=== PATIENT | male | born 1960 | race Caucasian/White ===

== ENCOUNTER 2016-06-06 18:24 | Inpatient (IN) | payer SELFPAY ==
[~2016-06-06] VITALS: Ht 175.3 cm; Wt 59.2 kg
[~2016-06-06 18:24] MED LIST: MVI PO; POTA595T5 PO
[2016-06-06 18:27] VITALS: BP 190/94; PULSE 108; RESP 16; TEMP 98.1; O2SAT 94
[2016-06-06] MEDS ORDERED: NITROGLYCERIN 0.4 MG SL 25 TABS/BTL SL ONE ×2 (18:33→18:34)
[2016-06-06] MEDS ORDERED: NITROGLYCERIN 0.4 MG SL 25 TABS/BTL SL STA (18:33)
[2016-06-06] MEDS ORDERED: SODIUM CHLOR 0.9% 1000 ML INJ 1,000 ML IV ONE (18:33)
[2016-06-06] MEDS ORDERED: ASPIRIN 81 MG CHEW TAB PO STA (18:33)
[2016-06-06] MEDS ORDERED: SODIUM CHLORIDE 0.9% FLUSH 10 ML FLUSH IVF PRN (18:45)
[2016-06-06] MEDS ORDERED: NITROGLYCERIN-DEXTROSE INJ 250 ML IV SCH (18:45)
[2016-06-06] MEDS ORDERED: NO HOME MEDS (18:56)
[2016-06-06 19:13] LABS: APTT (PATIENT) 25.3 SEC (24.3-30.1); PROTHROMBIN TIME - PATIENT 10.9 SEC (9.8-11.6)
--- NOTE | 2016-06-06 19:13 | PD ---
HPI Chief Complaint: Seizure Time Seen by Provider: 19:05 Travel History International Travel<30 days: No Contact w/Intl Traveler<30days: No Traveled to known affect area: No History of Present Illness HPI Is a 56 year-old man who presents to the emergency department brought in by EMS. Apparently bystanders saw him sort of stumble and collapse. He was confused for EMS. There are some concern initially for seizure given the confusion. No seizure activity actually seen. Patient endorses alcohol use today. History is very limited due to patient cooperation. He required restraint in route with EMS due to agitation and confusion. History Past Medical History Narrative Medical Alcoholism Tetanus Vaccination: Unknown Social History Alcohol Use: Yes Tobacco Use: Yes Allergies-Medications (Allergen,Severity, Reaction): Coded Allergies: No Known Allergies (Verified , 05/13/15) Reported Meds & Prescriptions Reported Meds & Active Scripts Active Theragran (Multivitamins) 1 Tab Tab 1 Tab PO DAILY Reported [No Home Meds] Eql Potassium Gluconate (Potassium Gluconate) 595 Mg Tab 595 Mg PO DAILY 2 tabs every morning Review of Systems Except as stated in HPI: all other systems reviewed are Neg Physical Exam Narrative GENERAL: The 56 year-old man, slurred speech, belligerent, confused somewhat. SKIN: Focused skin assessment warm/dry. HEAD: No evidence of trauma. EYES: Pupils equal and round. No scleral icterus. No injection or drainage. ENT: No nasal bleeding or discharge. Mucous membranes pink and moist. CARDIOVASCULAR: Rapid regular rate. No appreciable murmurs. RESPIRATORY: No accessory muscle use. Clear to auscultation. Breath sounds equal bilaterally. GASTROINTESTINAL: Abdomen soft, non-tender, nondistended. Hepatic and splenic margins not palpable. MUSCULOSKELETAL: No obvious deformities. No edema. NEUROLOGICAL: Sluggish, with slurred speech, and agitation. Data Data Last Documented VS Vital Signs Date Time Temp Pulse Resp B/P Pulse Ox O2 Delivery O2 Flow Rate FiO2 06/06/16 18:27 98.1 108 16 190/94 94 Orders Nitroglycerin Sl (Nitrostat Sl) (06/06/16 18:33) Troponin I (06/06/16 18:33) Ckmb (Isoenzyme) Profile (06/06/16 18:33) Complete Blood Count With Diff (06/06/16 18:33) I-Stat Profile (06/06/16 18:33) I-Stat Creatinine (06/06/16 18:33) Calcium (06/06/16 18:33) Magnesium (Mg) (06/06/16 18:33) Prothrombin Time / Inr (Pt) (06/06/16 18:33) Act Partial Throm Time (Ptt) (06/06/16 18:33) B-Type Natriuretic Peptide (06/06/16 18:33) Chest, Single Ap (06/06/16 18:33) Electrocardiogram (06/06/16 18:33) Oxygen Administration (06/06/16 18:33) Iv Access Insert/Monitor (06/06/16 18:33) Oximetry (06/06/16 18:33) Sodium Chlor 0.9% 1000 Ml Inj (Ns 1000 M (06/06/16 18:33) Sodium Chloride 0.9% Flush (Ns Flush) (06/06/16 18:45) Aspirin Chew (Aspirin Chew) (06/06/16 18:33) Nitroglycerin Sl (Nitrostat Sl) (06/06/16 18:33) Nitroglycerin-Dextrose Inj (Nitroglyceri (06/06/16 18:45) Nitroglycerin Sl (Nitrostat Sl) (06/06/16 18:34) Alcohol (Ethanol) (06/06/16 18:37) Ct Brain W/O Iv Contrast(Rout) (06/06/16 ) MDM Medical Decision Making Medical Screen Exam Complete: Yes Emergency Medical Condition: Yes Interpretation(s) My review of initial EKG: Sinus tachycardia. There is high lateral ST elevations in aVL and V1 V2 with reciprocal inferior T-wave inversions and ST depressions, as well as lateral precordial ST depressions. Compared to his previous EKG, the degree of elevation depressions is worsened, but the pattern is the same as previous. Differential Diagnosis STEMI, illicit drug use, intoxication, head injury, other Narrative Course Medical decision making This a 56 year-old man presents emergency department confused, appears intoxicated, with some kind of stumbling or syncope or collapse type episode. EKG is worrisome for STEMI, and a STEMI alert was called. On further review, his EKG is unchanged from his baseline. I spoke with Dr. Garcia, head of conservation cardiology. He came immediately to the bedside the patient was evaluated with echocardiogram. STEMI alert was canceled as the history is not suggestive of a myocardial infarction, EKG appears similar to previous EKGs, there were no wall motion abnormalities. Patient will be monitored in the emergency department, lab work will be obtained, and he'll be admitted for further evaluation. Patient was signed out to the oncoming provider at 7 PM for further evaluation. Jose C Dee MD June 06, 2016 19:13
[2016-06-06] MEDS ORDERED: hydrALAZINE HCL 20 MG/ML VIAL IV PUSH PRN (19:15)
[2016-06-06 19:18] LABS: AUTOMATED NEUTROPHIL # 5.3 TH/MM3 (1.8-7.7); BASOPHIL # 0.2 TH/MM3 (0-0.2); BASOPHIL % 1.3 % (0.0-2.0); EOSINOPHIL # 0.7 TH/MM3 (0-0.4); EOSINOPHIL % 5.5 % (0.0-4.0); HEMATOCRIT 38.4 % (39.0-51.0); HEMO FLAGS DIFF FINAL; LYMPH % 41.9 % (9.0-44.0); MEAN CELL VOLUME 86.1 FL (80.0-100.0); MEAN CORPUSCULAR HEMOGLOBIN 28.4 PG (27.0-34.0); MONO % 7.1 % (0.0-8.0); NEUT % 44.2 % (16.0-70.0); PLATELET COUNT 306 TH/MM3 (150-450); RED BLOOD COUNT 4.47 MIL/MM3 (4.50-5.90); RED CELL DISTRIBUTION WIDTH 23.2 % (11.6-17.2)
[2016-06-06 19:23] VITALS: RESP 16; O2SAT 98
[2016-06-06] MEDS ORDERED: amLODIPine BESYLATE 5 MG TAB PO ONE (19:30)
--- NOTE | 2016-06-06 19:46 | RADRPT ---
EXAM DATE/TIME: 06/06/2016 18:43 [facility] COMPARISON: CHEST SINGLE AP, October 05, 2014, 4:32. INDICATIONS : Chest pain. MEDICAL HISTORY : Unobtainable. SURGICAL HISTORY : Unobtainable. ENCOUNTER: Initial ACUITY: 1 day PAIN SCORE: Non-responsive. LOCATION: Bilateral chest FINDINGS: There are lung sarkis and clips seen in the medial right upper lung. There continues to be soft tissue density at the medial right upper lung and along the superior right pleural region. This was present previously. These findings appear unchanged. The lungs are otherwise clear. The heart size is normal. A significant effusion is not clearly identified. CONCLUSION: Stable chronic change in the right upper lung. An acute abnormality is not clearly se en. Lacho Dey MD on June 06, 2016 at 19:38 Board Certified Radiologist. This report was verified electronically.
--- NOTE | 2016-06-06 21:06 | MB ---
cc: LUKE PARR DO DATE OF CONSULTATION: 06/06/2016 REASON FOR CONSULTATION: Abnormal EKG possible ST-elevation myocardial infarction. HISTORY OF PRESENT ILLNESS Joon Martin is a 56-year-old male who presents to [facility] emergency room via EMS on June 06, 2016, after seeing him stumble. Per the patient he was binge drinking all day, although he claims that he only drank six beers. He was out walking and noted to stumble and fall down. EMS was called and he was brought to the emergency room. Per the patient he did not syncopize, feel lightheaded or lose consciousness. On arrival, EKG was done and there was concern for possible ST-elevation myocardial infarction, so I was called emergently. On my arrival on discussing with the patient he states that he drank too much today and stumbled because he was drinking. He denies any loss of consciousness, chest pain or shortness of breath. He is currently hemodynamically stable, lying in bed without pain. PAST MEDICAL HISTORY: 1. Hypertension. 2. Depression. 3. Tobacco abuse 4. Alcohol abuse. PAST SURGICAL HISTORY: 1. Right thoracotomy. 2. Lung resection. 3. Right foot surgery. ALLERGIES NO KNOWN DRUG ALLERGIES. MEDICATIONS Denies. FAMILY HISTORY Denies premature coronary artery disease or sudden cardiac within the family. SOCIAL HISTORY The patient states he drank six beers today. He states that the last time he drank was around a month ago and has not binge drank in five months. He has a history of drinking 12 beers per day. He smokes a pack per day. Denies drug abuse. REVIEW OF SYSTEMS 14-systems were reviewed, history and physical pertinent positives and negatives above otherwise negative. PHYSICAL EXAMINATION Vital signs: Temperature 98.1, heart rate 100, blood pressure 190/94, respirations 16, pulse ox 94% on room air. In general the patient appears well in no acute distress. Alert, awake, oriented x3. He does smell of alcohol. Extraocular muscles intact. Mucous membranes moist. Neck is supple. No JVD at 45 degrees. No carotid bruits heard bilaterally. Carotid upstroke is brisk in nature. Heart is regular rate and rhythm. Positive first and second heart sounds with no murmurs, gallops or rubs. PMI is nondisplaced. Lungs: Clear to auscultation bilaterally. No wheezes, rales or rhonchi. Abdomen is soft, nontender, nondistended, no organomegaly noted. Extremities: Show no clubbing, cyanosis or edema. Femoral and distal pulses intact bilaterally. Neurologically: No focal deficits. Skin: Warm, dry and intact. Osteopathically, no kyphoscoliosis, lordosis or paraspinal tender points. Electrocardiogram (June 06, 2016 at 18:29) sinus tachycardia, left atrial enlargement, incomplete right bundle branch block, probable LVH with secondary ST-T wave changes, compared to previous electrocardiogram from October 05, 2014 at 13:33, ST-T wave changes, inferior laterally, are slightly more prominent but overall no significant change. IMPRESSION 1. Alcohol intoxication. 2. Gait disturbance secondary to alcohol intoxication. 3. EKG changes consistent with LVH, does not appear to be an ST-elevation myocardial infarction. 4. Accelerated hypertension with a history of chronic hypertension. 5. Noncompliance with medications. 6. Alcohol abuse. 7. Tobacco abuse. 8. Depression. RECOMMENDATIONS 1. Mr. Martin's EKG does not appear to be an ST elevation myocardial infarction and to go along with this, he does not currently have any chest pain. These are most likely secondary changes of LVH due to his longstanding untreated hypertension. 2. He will be watched overnight and troponins will be checked x3. 3. Echocardiogram was done at the bedside showing extensive LVH with ejection fraction preliminarily of 45-50 but no significant wall motion abnormalities but what appears more likely to be diffuse mild hypokinesis due to longstanding hypertension. 4. We will discuss with him tomorrow when he leonides up about his overall health and making sure he stays on his antihypertensive medications. 5. I also discussed with him stopping drinking as he is starting to form what looks like a dilated cardiomyopathy. 6. Lastly I spoke to him for greater than 3 minutes about tobacco cessation which he is not ready to quit. Thank you for allowing me to see Joon Martin. If there are any questions please do not hesitate to call. Luke Parr DO VGP/KAPIL /7:02 PM /8:52 PM
[2016-06-06 21:16] LABS: CREATINE KINASE 161 U/L (39-308); MAGNESIUM 2.6 MG/DL (1.5-2.5)
[2016-06-06 21:17] LABS: ANION GAP 15 MEQ/L (5-15); AST (GOT) 32 U/L (15-37); BICARBONATE 21.9 MEQ/L (21.0-32.0); BLOOD UREA NITROGEN 26 MG/DL (7-18); CHLORIDE 97 MEQ/L (98-107); GLOMERULAR FILTRATION RATE 45 ML/MIN (>89); POTASSIUM 3.5 MEQ/L (3.5-5.1); SODIUM (NA) 134 MEQ/L (136-145)
[2016-06-06 21:20] LABS: ALKALINE PHOSPHATASE 95 U/L (45-117); ALT (GPT) 27 U/L (12-78); TOTAL BILIRUBIN ADULT 0.2 MG/DL (0.2-1.0)
--- NOTE | 2016-06-06 21:23 | PD ---
Physical Exam Narrative The patient was initially evaluated by the previous provider and signed out to me at 7:00 PM at the beginning of my shift pending labs, CT head, and disposition. See his note for further details. Briefly this is a 56-year-old male who was brought into the emergency department after seen falling to the ground. Patient has been drinking alcohol throughout the day today and drinks alcohol daily. EKG was concerning for possible STEMI, therefore STEMI alert was called, however was canceled after the on-call research/program director evaluated the patient as well as previous EKG which looks very similar to today's EKG. Bedside echo was performed by Dr. Garcia showing decreased EF. Plan is for basic labs, cardiac enzymes, CT head, and research/program director Dr. Irizarry would like the patient to be admitted for serial cardiac enzymes. Vital signs and labs reviewed. Troponin is 0.09. BNP is 1677. Alcohol level is 144. Chest x-ray shows stable chronic change in the right upper lung, and acute abnormality is not clearly seen. CT head: CONCLUSION: 1. No acute intracranial abnormality seen. 2. Suspected encephalomalacia at the inferior right frontal lobe. 3. Bilateral maxillary sinus disease. Patient will be admitted for overnight observation for serial cardiac enzymes and cardiology evaluation in the morning. Case discussed with hospitalist Dr. Oleary who will admit the patient to her service. Data Data Last Documented VS Vital Signs Date Time Temp Pulse Resp B/P Pulse Ox O2 Delivery O2 Flow Rate FiO2 06/06/16 19:23 16 98 Room Air 06/06/16 18:27 98.1 108 190/94 Orders Nitroglycerin Sl (Nitrostat Sl) (06/06/16 18:33) Troponin I (06/06/16 18:33) Ckmb (Isoenzyme) Profile (06/06/16 18:33) Complete Blood Count With Diff (06/06/16 18:33) Magnesium (Mg) (06/06/16 18:33) Prothrombin Time / Inr (Pt) (06/06/16 18:33) Act Partial Throm Time (Ptt) (06/06/16 18:33) B-Type Natriuretic Peptide (06/06/16 18:33) Chest, Single Ap (06/06/16 18:33) Electrocardiogram (06/06/16 18:33) Oxygen Administration (06/06/16 18:33) Iv Access Insert/Monitor (06/06/16 18:33) Oximetry (06/06/16 18:33) Sodium Chlor 0.9% 1000 Ml Inj (Ns 1000 M (06/06/16 18:33) Sodium Chloride 0.9% Flush (Ns Flush) (06/06/16 18:45) Aspirin Chew (Aspirin Chew) (06/06/16 18:33) Nitroglycerin Sl (Nitrostat Sl) (06/06/16 18:33) Nitroglycerin-Dextrose Inj (Nitroglyceri (06/06/16 18:45) Nitroglycerin Sl (Nitrostat Sl) (06/06/16 18:34) Alcohol (Ethanol) (06/06/16 18:37) Ct Brain W/O Iv Contrast(Rout) (06/06/16 ) Aspirin Chew (Aspirin Chew) (06/07/16 09:00) Echo 2d Comp W/Dopp(Routine) (06/06/16 ) Amlodipine (Norvasc) (06/07/16 09:00) Hydralazine Inj (Apresoline Inj) (06/06/16 19:15) Ur Drug Screen W/Confirmation (06/06/16 19:14) Amlodipine (Norvasc) (06/06/16 19:30) Comprehensive Metabolic Panel (06/06/16 20:52) CKMB (06/06/16 18:35) CKMB% (06/06/16 18:35) Labs Laboratory Tests Test 06/06/16 06/06/16 18:35 19:35 White Blood Count 12.0 TH/MM3 Red Blood Count 4.47 MIL/MM3 Hemoglobin 12.7 GM/DL Hematocrit 38.4 % Mean Corpuscular Volume 86.1 FL Mean Corpuscular Hemoglobin 28.4 PG Mean Corpuscular Hemoglobin 33.0 % Concent Red Cell Distribution Width 23.2 % Platelet Count 306 TH/MM3 Mean Platelet Volume 8.2 FL Neutrophils (%) (Auto) 44.2 % Lymphocytes (%) (Auto) 41.9 % Monocytes (%) (Auto) 7.1 % Eosinophils (%) (Auto) 5.5 % Basophils (%) (Auto) 1.3 % Neutrophils # (Auto) 5.3 TH/MM3 Lymphocytes # (Auto) 5.0 TH/MM3 Monocytes # (Auto) 0.8 TH/MM3 Eosinophils # (Auto) 0.7 TH/MM3 Basophils # (Auto) 0.2 TH/MM3 CBC Comment DIFF FINAL Differential Comment Prothrombin Time 10.9 SEC Prothromb Time International 1.0 RATIO Ratio Activated Partial 25.3 SEC Thromboplast Time Magnesium Level 2.6 MG/DL Total Creatine Kinase 161 U/L Creatine Kinase MB 5.2 NG/ML Troponin I 0.09 NG/ML B-Type Natriuretic Peptide 1677 PG/ML Ethyl Alcohol Level 144 MG/DL Sodium Level 134 MEQ/L Potassium Level 3.5 MEQ/L Chloride Level 97 MEQ/L Carbon Dioxide Level 21.9 MEQ/L Anion Gap 15 MEQ/L Blood Urea Nitrogen 26 MG/DL Creatinine 1.59 MG/DL Estimat Glomerular Filtration 45 ML/MIN Rate Random Glucose 160 MG/DL Calcium Level 8.1 MG/DL Total Bilirubin 0.2 MG/DL Aspartate Amino Transf 32 U/L (AST/SGOT) Alanine Aminotransferase 27 U/L (ALT/SGPT) Alkaline Phosphatase 95 U/L Total Protein 7.7 GM/DL Albumin 3.6 GM/DL MDM Supervised Visit with FERNANDEZ: No Diagnosis Primary Impression: Syncope Qualified Code: R55 - Syncope, unspecified syncope type Additional Impressions: Abnormal EKG Alcohol intoxication Qualified Code: F10.120 - Alcohol intoxication, uncomplicated Scripts No Active Prescriptions or Reported Meds Tom Hampton MD June 06, 2016 21:23
--- NOTE | 2016-06-06 21:28 | RADRPT ---
EXAM DATE/TIME: 06/06/2016 20:43 [facility] COMPARISON: No previous studies available for comparison. INDICATIONS : Patient fell ETOH on board . RADIATION DOSE: 56.39 CTDIvol (mGy) MEDICAL HISTORY : Hypertension. SURGICAL HISTORY : None. chest tube ENCOUNTER: Initial ACUITY: 1 day PAIN SCALE: 1/10 LOCATION: cranial TECHNIQUE: Multiple contiguous axial images were obtained of the head. Using automated exposure control and adj ustment of the mA and/or kV according to patient size, radiation dose was kept as low as reasonably a chievable to obtain optimal diagnostic quality images. FINDINGS: CEREBRUM: The ventricles are normal for age. There is encephalomalacia at the inferior right frontal lobe like ly from prior trauma given the location. No evidence of midline shift, mass lesion, hemorrhage or acu te infarction. No extra-axial fluid collections are seen. POSTERIOR FOSSA: The cerebellum and brainstem are intact. The 4th ventricle is midline. The cerebellopontine angle i s unremarkable. EXTRACRANIAL: The visualized portion of the orbits is intact. There is bilateral maxillary sinus disease. SKULL: The calvaria is intact. No evidence of skull fracture. CONCLUSION: 1. No acute intracranial abnormality seen. 2. Suspected encephalomalacia at the inferior right frontal lobe. 3. Bilateral maxillary sinus disease. Lacho Dey MD on June 06, 2016 at 21:24 Board Certified Radiologist. This report was verified electronically.
[2016-06-06 21:29] LABS: CKMB 5.2 NG/ML (0.5-3.6)
[2016-06-06] MEDS ORDERED: NALOXONE HCL 0.4 MG/ML AMP IV PRN (22:45)
[2016-06-06] MEDS ORDERED: SODIUM CHLORIDE 0.9% FLUSH 10 ML FLUSH IV FLUSH PRN (22:45)
[2016-06-06] MEDS ORDERED: FUROSEMIDE 20 MG/2 ML VIAL IV PUSH ONE (23:00)
[2016-06-06] MEDS ORDERED: POTASSIUM CHLORIDE 20 MEQ CONTROLLED RELEASE TAB PO ONE (23:00)
[2016-06-06 23:12] VITALS: BP 169/86; PULSE 92; RESP 16; O2SAT 97
--- NOTE | 2016-06-06 23:29 | HHI.HP ---
[facility] Phys[facility] - [facility] in [place] Admission Diagnosis syncope, abnormal EKG, alcohol intoxication Diagnoses: (1) Syncope (2) Abnormal EKG (3) Alcohol intoxication Chief Complaint: syncopal episode Travel History International Travel<30 Days: No Contact w/Intl Traveler <30 Da: No Traveled to Known Affected Are: No History of Present Illness Mr. Porter is a 56 year-old male with a history of hypertension, COPD, arthritis, and pneumothorax who presented to the emergency room on 06/07/2015 for evaluation of stumble with collapse. Dr. Garcia saw him in the emergency room because he came in as a STEMI alert. Bedside echocardiogram showed EF of 45-50 with extensive LVH. His 12-lead EKG appears c/w LVH and not STEMI. The patient is seen in the emergency room. He states he was out walking and got dizzy and then lost consciousness. He denies being confused upon awakening and bowel or bladder incontinence with this episode. He reports his vision became tunneled and he blacked out. He reports that he had 6 beers prior to this episode that he drank very quickly. He repeatedly denies daily alcohol use. He denies any prior syncopal episodes. He does acknowledge that he's gotten dizzy in the past but was able to "sit down and catch my breath" with resolution of symptoms. He acknowledges chronic shortness of breath at night and occasional orthopnea. He denies ascites or peripheral edema. He denies any chest pain or tightness. He denies any history of diabetes, heart disease, irregular heart rhythm, liver or kidney problems, seizures, cancers, thyroid problems, or problems with blood clots such as DVT, PE, or CVA. He says he has been seeing a primary care physician at a free clinic and [place]. During his evaluation earlier one month ago, he was found to be severely hypertensive and was sent to [place] ER. He states they found him to be anemic and he was placed on iron. He states he was taken off his blood pressure pills at that time. He says they did perform an echocardiogram and he is still awaiting those results. He has a history of COPD and right lobectomy following pneumothorax. Review of Systems Except as stated in HPI: all other systems reviewed are Neg Past Family Social History Past Medical History Hypertension Arthritis Pneumothorax - chest tube 2008 resolved after two chest tubes COPD . Past Surgical History right ankle orif 1983 Chest tubes 2 2008 . Reported Medications Reported Meds & Active Scripts Active No Active Prescriptions or Reported Medications Allergies: Coded Allergies: No Known Allergies (Verified , 05/13/15) Active Ordered Medications Current Medications Nitroglycerin 0.4 mg 0.4 mg STK-MED ONCE SL ; Start 06/06/16 at 18:33; Stop at 18:42; Status DC Sodium Chloride (NS 1000 ml Inj) 1,000 ml @ 0 mls/hr Q0M ONCE IV Last administered on 06/06/16 18:47; Start 06/06/16 at 18:33; Stop 06/06/16 at 18:36; Status DC Sodium Chloride (NS Flush) 2 ml UNSCH PRN IVF FLUSH AFTER USING IV ACCESS; Start 06/06/16 at 18:45; Stop 06/06/16 at 22:54; Status DC Aspirin (Aspirin Chew) 324 mg NOW STAT PO Last administered on 06/06/16 18:48 ; Start 06/06/16 at 18:33; Stop 06/06/16 at 18:36; Status DC Nitroglycerin 0.4 mg 0.4 mg NOW STAT SL ; Start 06/06/16 at 18:33; Stop 06/06/16 at 18:42; Status DC Nitroglycerin/ Dextrose (Nitroglycerin-Dextrose Inj) 250 ml @ 0 mls/hr TITRATE IV ; Start 06/06/16 at 18:45; Stop 06/06/16 at 18:45; Status DC Nitroglycerin (Nitrostat Sl) 0.4 mg STK-MED ONCE SL ; Start 06/06/16 at 18:34; Stop 06/06/16 at 18:43; Status DC Aspirin (Aspirin Chew) 81 mg DAILY CHEW ; Start 06/07/16 at 09:00 Amlodipine Besylate (Norvasc) 5 mg DAILY PO ; Start 06/07/16 at 09:00 Hydralazine HCl (Apresoline Inj) 10 mg Q4HR PRN IV PUSH SBP>160, DBP>90; Start 06/06/16 at 19:15 Amlodipine Besylate (Norvasc) 5 mg ONCE ONCE PO Last administered on 06/06/16t 19:46; Start 06/06/16 at 19:30; Stop 06/06/16 at 19:31; Status DC Sodium Chloride (NS Flush) 2 ml UNSCH PRN IV FLUSH FLUSH AFTER USING IV ACCESS ; Start 06/06/16 at 22:45 Sodium Chloride (NS Flush) 2 ml BID IV FLUSH ; Start 06/07/16 at 09:00 Naloxone HCl (Narcan Inj) 0.4 mg UNSCH PRN IV SEE LABEL COMMENTS; Start at 22:45 Furosemide (Lasix Inj) 20 mg ONCE ONCE IV PUSH ; Start 06/06/16 at 23:00; Stop 06/06/16 at 23:01; Status DC Furosemide (Lasix Inj) 20 mg BID@09,18 IV PUSH ; Start 06/07/16 at 09:00 Potassium Chloride (KCl) 40 meq ONCE ONCE PO ; Start 06/06/16 at 23:00; Stop 06/06/16 at 23:01; Status DC . Family History Mother diabetes Father from colon cancer Denies family history of heart problems . Social History Tobacco: smokes 1 PPD x 40 years ETOH: denies drinking routinely - drinks two times per week . Physical Exam Vital Signs Vital Signs Date Time Temp Pulse Resp B/P Pulse Ox O2 Delivery O2 Flow Rate FiO2 06/06/16 23:12 92 16 169/86 97 Room Air 06/06/16 19:23 16 98 Room Air 06/06/16 19:23 98 Room Air 06/06/16 18:27 98.1 108 16 190/94 94 Physical Exam GENERAL: This is a thin male patient who appears older than stated age, in no apparent distress. SKIN: No rashes, ecchymoses or lesions. Cool and dry. HEAD: Atraumatic. Normocephalic. EYES: No scleral icterus. No injection or drainage. ENT: Nose without bleeding, purulent drainage. NECK: Trachea midline. No JVD or lymphadenopathy. CARDIOVASCULAR: Regular rate and rhythm without murmurs, gallops, or rubs. RESPIRATORY: Clear to auscultation. Breath sounds equal bilaterally. No wheezes , rales, or rhonchi. GASTROINTESTINAL: Abdomen soft, non-tender, nondistended. No guarding. MUSCULOSKELETAL: Extremities without clubbing, cyanosis, or edema. No calf tenderness. NEUROLOGICAL: Awake and alert. Motor and sensory grossly within normal limits. Normal speech. . Laboratory Laboratory Tests Test 06/06/16 06/06/16 18:35 19:35 White Blood Count 12.0 Red Blood Count 4.47 Hemoglobin 12.7 Hematocrit 38.4 Mean Corpuscular Volume 86.1 Mean Corpuscular Hemoglobin 28.4 Mean Corpuscular Hemoglobin 33.0 Concent Red Cell Distribution Width 23.2 Platelet Count 306 Mean Platelet Volume 8.2 Neutrophils (%) (Auto) 44.2 Lymphocytes (%) (Auto) 41.9 Monocytes (%) (Auto) 7.1 Eosinophils (%) (Auto) 5.5 Basophils (%) (Auto) 1.3 Neutrophils # (Auto) 5.3 Lymphocytes # (Auto) 5.0 Monocytes # (Auto) 0.8 Eosinophils # (Auto) 0.7 Basophils # (Auto) 0.2 CBC Comment DIFF FINAL Differential Comment Prothrombin Time 10.9 Prothromb Time International 1.0 Ratio Activated Partial 25.3 Thromboplast Time Magnesium Level 2.6 Total Creatine Kinase 161 Creatine Kinase MB 5.2 Troponin I 0.09 B-Type Natriuretic Peptide 1677 Ethyl Alcohol Level 144 Sodium Level 134 Potassium Level 3.5 Chloride Level 97 Carbon Dioxide Level 21.9 Anion Gap 15 Blood Urea Nitrogen 26 Creatinine 1.59 Estimat Glomerular Filtration 45 Rate Random Glucose 160 Calcium Level 8.1 Total Bilirubin 0.2 Aspartate Amino Transf 32 (AST/SGOT) Alanine Aminotransferase 27 (ALT/SGPT) Alkaline Phosphatase 95 Total Protein 7.7 Albumin 3.6 Result Diagram: 06/06/16183406/06/161934 Imaging Last Impressions Chest X-Ray 06/06/16 1833 Signed Impressions: Service Date/Time: Monday, June 06, 2016 18:43 - CONCLUSION: Stable chronic change in the right upper lung. An acute abnormality is not clearly seen. Lacho Dey MD Head CT 06/06/16 0000 Signed Impressions: Service Date/Time: Monday, June 06, 2016 20:43 - CONCLUSION: 1. No acute intracranial abnormality seen. 2. Suspected encephalomalacia at the inferior right frontal lobe. 3. Bilateral maxillary sinus disease. Lacho Dey MD Assessment and Plan Problem List: (1) Alcohol intoxication ICD Code: F10.129 Status: Resolved (2) Syncope ICD Code: R55 Status: Acute (3) Cardiomyopathy ICD Code: I42.9 Status: Chronic Assessment and Plan Mr. Porter is a 56 year-old male with a history of hypertension, COPD, arthritis, and pneumothorax who presented to the emergency room on 06/07/2015 for evaluation of stumble with collapse. Dr. Garcia saw him in the emergency room because he came in as a STEMI alert. Bedside echocardiogram showed EF of 45-50 with extensive LVH. His 12-lead EKG appears c/w LVH and not STEMI. Cardiomyopathy - likely secondary to alcohol abuse and tobacco abuse - Lasix 20 mg IV x 1 dose now, Lasix 20 mg IV BID - Potassium 40 meq p.o. x 1 dose - continuous cardiac telemetry to monitor for cardiac arrhythmia - EKG reviewed - ST changes c/w LVH, not STEMI - Cardiology consulted - appreciate assistance - discussed with Dr. Garcia at patient's bedside - Serial cardiac enzymes and EKGs to rule out ACS Hypertensive urgency - Hydralazine 10 mg IV every 4 hours as needed for systolic blood pressure greater than 160 or diastolic blood pressure greater than 90 - Monitor trends and blood pressure readings and adjust treatment as indicated Syncope - Check carotid artery ultrasound - Continuous cardiac telemetry to monitor for cardiac arrhythmia - Cardiac workup as above Alcohol intoxication - ETOH 144 on admission - recommend cessation Tobacco abuse - counselled regarding cessation DVT prophylaxis - SCDs Written by Annie Ortega, acting as scribe for Dr. Oleary on 06/06/16 at 23:28. This note was transcribed by scribe [Annie Ortega]. I, Dr. Sangeeta Oleary personally performed the history, physical exam, and medical decision making; and confirmed the accuracy of the information in the transcribed note. Authenticated by Dr. Sangeeta Oleary on 06/06/16 at 23:28. Discussed Condition With Dr. Irizarry at patient's bedside, ER physician, and patient Problem Qualifiers (1) Syncope: Qualified Code: R55 - Syncope, unspecified syncope type (2) Alcohol intoxication: Qualified Code: F10.120 - Alcohol intoxication, uncomplicated Annie Ortega June 06, 2016 23:29 Sangeeta Oleary MD Jul 17, 2016 11:54
[2016-06-07] VITALS (13 sets, daily range): BP systolic 98–190; BP diastolic 56–97; PULSE 75–93; RESP 16–20; TEMP 97.7–98.6; O2SAT 96–100
[2016-06-07] MEDS ORDERED: HEPARIN-D5W INJ 250 ML IV SCH (03:00)
[2016-06-07 05:52] LABS: AUTOMATED NEUTROPHIL # 7.6 TH/MM3 (1.8-7.7); BASOPHIL # 0.1 TH/MM3 (0-0.2); BASOPHIL % 1.2 % (0.0-2.0); EOSINOPHIL # 0.2 TH/MM3 (0-0.4); EOSINOPHIL % 1.7 % (0.0-4.0); HEMATOCRIT 39.1 % (39.0-51.0); HEMO FLAGS DIFF FINAL; LYMPH % 13.9 % (9.0-44.0); LYMPHOCYTE # 1.4 TH/MM3 (1.0-4.8); MEAN CELL VOLUME 84.5 FL (80.0-100.0); MEAN CORPUSCULAR HEMOGLOBIN 27.8 PG (27.0-34.0); MEAN CORPUSCULAR HGB CONC 32.9 % (32.0-36.0); NEUT % 76.2 % (16.0-70.0); PLATELET COUNT 258 TH/MM3 (150-450); RED BLOOD COUNT 4.62 MIL/MM3 (4.50-5.90); RED CELL DISTRIBUTION WIDTH 23.8 % (11.6-17.2)
[2016-06-07 06:07] LABS: BICARBONATE 25.5 MEQ/L (21.0-32.0); POTASSIUM 3.7 MEQ/L (3.5-5.1)
--- NOTE | 2016-06-07 08:34 | EKG ---
Date Performed: 06/07/2016 Time Performed: 01:36:41 PTAGE: 56 years EKG: Sinus rhythm RIGHT ATRIAL ENLARGEMENT LEFT VENTRICULAR HYPERTROPHY AND ST-T CHANGE ABNORMAL ECG PREVIOUS TRACING : 06/06/2016 18.29 DOCTOR: Jose C Roman Interpretating Date/Time 06/07/2016 08:33:09
--- NOTE | 2016-06-07 08:48 | EKG ---
Date Performed: 06/06/2016 Time Performed: 18:29:30 PTAGE: 56 years EKG: SINUS TACHYCARDIA LEFT ATRIAL ENLARGEMENT INCOMPLETE RIGHT BUNDLE BRANCH BLOCK MARKED ST DE PRESSION, CONSIDER SUBENDOCARDIAL INJURY ABNORMAL ECG INTERPRETATION BASED ON A DEFAULT AGE OF 40 YE ARS NO PREVIOUS TRACING DOCTOR: Jose C Roman Interpretating Date/Time 06/07/2016 08:47:12
[2016-06-07] MEDS: amLODIPine BESYLATE 5 MG TAB PO SCH (08:54)
[2016-06-07] MEDS: ASPIRIN 81 MG CHEW TAB CHEW SCH (08:54)
[2016-06-07] MEDS: FUROSEMIDE 20 MG/2 ML VIAL IV PUSH SCH ×2 (08:54→18:48)
[2016-06-07] MEDS: SODIUM CHLORIDE 0.9% FLUSH 10 ML FLUSH IV FLUSH SCH ×2 (08:54→21:00)
[2016-06-07] MEDS ORDERED: HEPARIN SODIUM - IV 10,000 UNITS/10 ML VIAL IV PRN ×2 (09:00)
[2016-06-07] MEDS ORDERED: ENALAPRILAT 1.25 MG/ML VIAL IV PUSH PRN (09:00)
--- NOTE | 2016-06-07 09:13 | EC ---
Study Study Date:06/06/2016 STUDY CONCLUSIONS SUMMARY LEFT VENTRICLE: The cavity size was normal. Wall thickness was increased in a pattern of moderate LVH. There was concentric hypertrophy. Systolic function was mildly reduced. The estimated ejection fraction was in the range of 45% to 50%. Diffuse hypokinesis. Features are consistent with a pseudonormal left ventricular filling pattern, with concomitant abnormal relaxation and increased filling pressure (grade 2 diastolic dysfunction). If LV function is below 40, please consider prescribing an ACEI or ARB or document rationale for non-use. PROCEDURE DATA STUDY STATUS: Elective. Procedure: Transthoracic echocardiography. Image quality was good. Scanning was performed from the parasternal, apical, and subcostal acoustic windows. Study completion: The patient tolerated the procedure well. Transthoracic echocardiography. M-mode, complete 2D, complete spectral Doppler, and color Doppler. Height: Height: 71in. Weight: Weight: 129.7lb. Body mass index: BMI: 18.1kg/m^2. Body surface area: BSA: 1.76m^2. Patient status: Inpatient. CARDIAC ANATOMY LEFT VENTRICLE: The cavity size was normal. Wall thickness was increased in a pattern of moderate LVH. There was concentric hypertrophy. Systolic function was mildly reduced. The estimated ejection fraction was in the range of 45% to 50%. Diffuse hypokinesis. Features are consistent with a pseudonormal left ventricular filling pattern, with concomitant abnormal relaxation and increased filling pressure (grade 2 diastolic dysfunction). AORTIC VALVE: Trileaflet; mildly thickened leaflets. Doppler: There was no stenosis. No significant regurgitation. Valve area: 1.87cm^2 (Vmax). Indexed valve area: 1.06cm^2/m^2 (Vmax). MITRAL VALVE: The valve appears to be grossly normal. Doppler: There was no evidence for stenosis. No significant regurgitation. Valve area by pressure half-time: 6.67cm^2. Indexed valve area by pressure half-time: 3.79cm^2/m^2. Peak gradient: 8mm Hg (D). ATRIAL SEPTUM: No defect or patent foramen ovale was identified. RIGHT VENTRICLE: The cavity size was normal. Systolic function was normal. PULMONIC VALVE: Not well visualized. Doppler: There was no evidence for stenosis. Trace regurgitation. TRICUSPID VALVE: The valve appears to be grossly normal. Doppler: There was no evidence for stenosis. No significant regurgitation. PERICARDIUM: There was no pericardial effusion. Patient weight: 129.7lb _Ejection fraction:_ 65-75% _Fractional shortening:_ 32% up to 5Kg 5-11.5Kg 11.6-22.9Kg 23-45Kg 45-57Kg Aortic Root 7-13 <17 13-22 17-27 17-27 LA diam 6-13 <23 24-38 33-47 37-40 RVID 10-17 7-15 7-15 7-18 8-17 LVIDd 12-22 <32 24-38 33-47 37-40 LVPW 2-4 3-6 5-7 6-8 7-8 IVS 2-4 3-6 5-7 6-8 7-8 BASIC MEASUREMENTS ADULT NORMAL Left ventricle LV internal dimension, ED, chordal 44.7 mm 43-52 level, PLAX LV internal dimension, ES, chordal 33.4 mm 23-38 level, PLAX Fractional shortening, chordal level, *25 % >29 PLAX LV posterior wall thickness, ED 14.8 mm IVS/LVPW ratio, ED 0.99 <1.3 Ventricular septum Septal thickness, ED 14.6 mm Aortic valve Leaflet separation 19 mm 15-26 Left atrium Anterior-posterior dimension 35 mm Anterior-posterior dimension index 1.99 cm/m^2 <2.2 Right ventricle RV internal dimension, ED, PLAX 21.3 mm 19-38 BASIC MEASUREMENTS ADULT NORMAL Aortic valve Leaflet separation 19 mm 15-26 Aorta Root diameter, ED 24 mm 20-37 DOPPLER MEASUREMENTS ADULT NORMAL Aortic valve Peak velocity, S 148 cm/s Valve area, Vmax 1.87 cm^2 Valve area index, Vmax 1.06 cm^2/m^2 Mitral valve Peak E-wave velocity 143 cm/s Peak A-wave velocity 56.8 cm/s Pressure half-time 33 ms Peak gradient, D 8 mm Hg Peak E/A ratio 2.5 Valve area, pressure half-time 6.67 cm^2 Valve area index, pressure half-time 3.79 cm^2/m^2 Pulmonic valve Peak velocity, S 99.1 cm/s LEGEND: Mean values are shown as u=mean value. Asterisk (*) che values outside specified normal range. Prepared and signed by Luke Garcia [id number]
[2016-06-07 10:22] LABS: APTT (PATIENT) 50.2 SEC (24.3-30.1)
--- NOTE | 2016-06-07 10:39 | RADRPT ---
EXAM DATE/TIME: 06/07/2016 07:40 [place] COMPARISON: No previous studies available for comparison. INDICATIONS : Syncope. MEDICAL HISTORY : Hypercholesterolemia. Arthritis. Osteoarthritis. Head trauma. HTN. Depression. Anxiety. SURGICAL HISTORY : Detached right retina. Right lung chest tube insertion. ORIF right foot/ankle with pins and screws. B lood transfusions. ENCOUNTER: Initial ACUITY: 3 days PAIN SCORE: 0/10 LOCATION: Bilateral neck PEAK SYSTOLIC VELOCITIES (cm/sec): ICA/CCA RATIO: Right: 0.7 Left: 2.1 ICA: Right: 61.4 Left: 245.4 CCA: Right: 94.4 Left: 118.3 ECA: Right: 163.8 Left: 333.3 VERTEBRAL: Right: 129.9 antegrade Left: 59.6 antegrade Elevated flow velocities and ICA/CCA ratios have been found to correlate with increased degrees of vessel stenosis, calculated as percentage of diameter relative to a normal segment of distal ICA/CCA FINDINGS: Extensive atherosclerotic plaque is noted bilaterally. Most prominent plaque is noted within the righ t distal common carotid artery. There is elevation of the peak systolic velocity of the left internal carotid artery in the range of greater than 70% stenosis although the ICA/CCA ratio is only in the r rudolph of 50-69% stenosis on the left. CTA of the carotid arteries would be helpful for further evaluat ion. There is no elevation of the peak systolic velocity of the right ICA or ICA/CCA ratio on the rig ht. Elevated peak systolic velocities are noted within the external carotid arteries suggesting great er than 70% stenosis on the left and 50-69% stenosis on the right. Antegrade flow is noted within the vertebral arteries bilaterally. CONCLUSION: 1. Elevated peak systolic velocity of the left ICA suggesting greater than 70% stenosis and elevated ICA/CCA ratio suggestive of 50-69% stenosis on the left. CTA of the carotid arteries would be helpful for further evaluation. 2. No significant elevated systolic velocity of the right ICA. 3. Elevated peak systolic velocities of the external carotid arteries suggesting greater than 70% violet nosis on the left and 50-69% stenosis on the right. 4. Extensive atherosclerotic plaque bilaterally as described above. Joon Holguin MD on June 07, 2016 at 10:29 Board Certified Radiologist. This report was verified electronically.
--- NOTE | 2016-06-07 10:49 | PD.CARD.PN ---
Subjective Subjective Remarks No chest pain, no shortness of breath Objective Medications Current Medications Medications (Trade) Dose Ordered Sig/Mohit Route Start Time Stop Time Status Last Admin (Aspirin Chew) 81 mg DAILY CHEW 06/07/16 09:00 06/07/16 08:54 (Norvasc) 5 mg DAILY PO 06/07/16 09:00 06/07/16 08:54 (Apresoline Inj) 10 mg Q4HR PRN IV PUSH 06/06/16 19:15 06/07/16 00:33 (NS Flush) 2 ml UNSCH PRN IV FLUSH 06/06/16 22:45 (NS Flush) 2 ml BID IV FLUSH 06/07/16 09:00 06/07/16 08:54 (Narcan Inj) 0.4 mg UNSCH PRN IV 06/06/16 22:45 (Lasix Inj) 20 mg BID@09,18 IV PUSH 06/07/16 09:00 06/07/16 08:54 (Heparin Inj) 5,000 units UNSCH PRN IV 06/07/16 09:00 Heparin Sodium (Porcine) 2500 units 2,500 units UNSCH PRN IV 06/07/16 09:00 (Heparin-D5W Inj) 250 ml @ 0 mls/hr TITRATE IV 06/07/16 03:00 06/07/16 03:32 (Vasotec Inj) 1.25 mg Q6H PRN IV PUSH 06/07/16 09:00 06/07/16 08:54 Vital Signs / I&O Vital Signs Date Time Temp Pulse Resp B/P Pulse Ox O2 Delivery O2 Flow Rate FiO2 06/07/16 10:11 103/59 06/07/16 08:37 97.9 90 18 190/89 98 06/07/16 08:36 97.8 90 18 190/89 98 06/07/16 04:00 85 06/07/16 02:30 92 06/07/16 02:08 97.7 93 18 166/76 96 06/07/16 00:33 92 16 169/76 100 Room Air 06/06/16 23:12 92 16 169/86 97 Room Air 06/06/16 19:23 16 98 Room Air 06/06/16 19:23 98 Room Air 06/06/16 18:27 98.1 108 16 190/94 94 Physical Exam GENERAL: NAD, AAOx3 SKIN: Warm and dry. HEAD: Atraumatic. Normocephalic. EYES: Pupils equal and round. No scleral icterus. No injection or drainage. ENT: No nasal bleeding or discharge. Mucous membranes pink and moist. NECK: Trachea midline. No JVD. CARDIOVASCULAR: Regular rate and rhythm. RESPIRATORY: No accessory muscle use. Clear to auscultation. Breath sounds equal bilaterally. GASTROINTESTINAL: Abdomen soft, non-tender, nondistended. Hepatic and splenic margins not palpable. MUSCULOSKELETAL: Extremities without clubbing, cyanosis, or edema. No obvious deformities. NEUROLOGICAL: Awake and alert. No obvious cranial nerve deficits. Motor grossly within normal limits. Five out of 5 muscle strength in the arms and legs. Normal speech. PSYCHIATRIC: Appropriate mood and affect; insight and judgment normal. Laboratory Laboratory Tests Test 06/06/16 06/06/16 06/07/16 06/07/16 18:35 19:35 01:40 05:28 White Blood Count 12.0 TH/MM3 10.0 TH/MM3 Red Blood Count 4.47 MIL/MM3 4.62 MIL/MM3 Hemoglobin 12.7 GM/DL 12.9 GM/DL Hematocrit 38.4 % 39.1 % Mean Corpuscular Volume 86.1 FL 84.5 FL Mean Corpuscular Hemoglobin 28.4 PG 27.8 PG Mean Corpuscular Hemoglobin 33.0 % 32.9 % Concent Red Cell Distribution Width 23.2 % 23.8 % Platelet Count 306 TH/MM3 258 TH/MM3 Mean Platelet Volume 8.2 FL 8.0 FL Neutrophils (%) (Auto) 44.2 % 76.2 % Lymphocytes (%) (Auto) 41.9 % 13.9 % Monocytes (%) (Auto) 7.1 % 7.0 % Eosinophils (%) (Auto) 5.5 % 1.7 % Basophils (%) (Auto) 1.3 % 1.2 % Neutrophils # (Auto) 5.3 TH/MM3 7.6 TH/MM3 Lymphocytes # (Auto) 5.0 TH/MM3 1.4 TH/MM3 Monocytes # (Auto) 0.8 TH/MM3 0.7 TH/MM3 Eosinophils # (Auto) 0.7 TH/MM3 0.2 TH/MM3 Basophils # (Auto) 0.2 TH/MM3 0.1 TH/MM3 CBC Comment DIFF FINAL DIFF FINAL Differential Comment Prothrombin Time 10.9 SEC Prothromb Time International 1.0 RATIO Ratio Activated Partial 25.3 SEC Thromboplast Time Magnesium Level 2.6 MG/DL Total Creatine Kinase 161 U/L 251 U/L 287 U/L Creatine Kinase MB 5.2 NG/ML Troponin I 0.09 NG/ML 0.62 NG/ML 0.55 NG/ML B-Type Natriuretic Peptide 1677 PG/ML Ethyl Alcohol Level 144 MG/DL Sodium Level 134 MEQ/L 134 MEQ/L Potassium Level 3.5 MEQ/L 3.7 MEQ/L Chloride Level 97 MEQ/L 99 MEQ/L Carbon Dioxide Level 21.9 MEQ/L 25.5 MEQ/L Anion Gap 15 MEQ/L 10 MEQ/L Blood Urea Nitrogen 26 MG/DL 22 MG/DL Creatinine 1.59 MG/DL 1.29 MG/DL Estimat Glomerular Filtration 45 ML/MIN 58 ML/MIN Rate Random Glucose 160 MG/DL 104 MG/DL Calcium Level 8.1 MG/DL 8.5 MG/DL Total Bilirubin 0.2 MG/DL Aspartate Amino Transf 32 U/L (AST/SGOT) Alanine Aminotransferase 27 U/L (ALT/SGPT) Alkaline Phosphatase 95 U/L Total Protein 7.7 GM/DL Albumin 3.6 GM/DL Test 06/07/16 09:30 Activated Partial 50.2 SEC Thromboplast Time Assessment and Plan Problem List: (1) Elevated troponin (2) Cardiomyopathy (3) Abnormal EKG (4) Alcohol intoxication (5) Hypertension (6) Tobacco abuse (7) Alcohol abuse Assessment and Plan 1) Mild elevation of troponin, possible Type 2 in nature with extensive HTN 2) Blood pressure control, better on current medications Patient told to stop blood pressure medications at [facility] because they weren't working?? 3) Echo showing EF 45-50%, diffusion wall motion abnormality, most likely secondary to long standing hypertension/ETOH abuse 4) Plan stress test today, if negative then needs BP control, ETOH/Tobacco cessation Problem Qualifiers (1) Alcohol intoxication: Qualified Code: F10.120 - Alcohol intoxication, uncomplicated Luke Garcia DO June 07, 2016 10:49
--- NOTE | 2016-06-07 11:21 | HHI.PR ---
Subjective Remarks Follow-up troponin elevation, hypertension. Patient states that he feels better today. No chest pain. Denies dyspnea, nausea, vomiting. Objective Vitals Vital Signs Date Time Temp Pulse Resp B/P Pulse Ox O2 Delivery O2 Flow Rate FiO2 06/07/16 10:11 103/59 06/07/16 08:37 97.9 90 18 190/89 98 06/07/16 08:36 97.8 90 18 190/89 98 06/07/16 04:00 85 06/07/16 02:30 92 06/07/16 02:08 97.7 93 18 166/76 96 06/07/16 00:33 92 16 169/76 100 Room Air 06/06/16 23:12 92 16 169/86 97 Room Air 06/06/16 19:23 16 98 Room Air 06/06/16 19:23 98 Room Air 06/06/16 18:27 98.1 108 16 190/94 94 Result Diagram: 06/07/16 0528 06/07/16 0528 Imaging Last Impressions Carotid Artery Ultrasound 06/07/16 0000 Signed Impressions: Service Date/Time: Tuesday, June 07, 2016 07:40 - CONCLUSION: 1. Elevated peak systolic velocity of the left ICA suggesting greater than 70%% stenosis and elevated ICA/CCA ratio suggestive of 50-69%% stenosis on the left. CTA of the carotid arteries would be helpful for further evaluation. 2. No significant elevated systolic velocity of the right ICA. 3. Elevated peak systolic velocities of the external carotid arteries suggesting greater than 70%% stenosis on the left and 50-69%% stenosis on the right. 4. Extensive atherosclerotic plaque bilaterally as described above. Joon Holguin MD Chest X-Ray 06/06/16 1833 Signed Impressions: Service Date/Time: Monday, June 06, 2016 18:43 - CONCLUSION: Stable chronic change in the right upper lung. An acute abnormality is not clearly seen. Lacho Dey MD Head CT 06/06/16 0000 Signed Impressions: Service Date/Time: Monday, June 06, 2016 20:43 - CONCLUSION: 1. No acute intracranial abnormality seen. 2. Suspected encephalomalacia at the inferior right frontal lobe. 3. Bilateral maxillary sinus disease. Lacho Dey MD Objective Remarks General: No acute distress. Heart: Regular rate and rhythm. No murmur. Lungs: Clear to auscultation bilaterally. No wheezes, rales, or rhonchi. Breathing is nonlabored. Abdomen: Soft, nontender, nondistended. Extremities: No lower extremity edema. Psych: Alert and oriented. Procedures None Urinary Catheter: No Vascular Central Line Catheter: No A/P Problem List: (1) Alcohol intoxication ICD Code: F10.129 Status: Resolved (2) Syncope ICD Code: R55 Status: Acute (3) Cardiomyopathy ICD Code: I42.9 Status: Chronic (4) Hypertension ICD Code: I10 Status: Chronic (5) Tobacco abuse ICD Code: Z72.0 Status: Chronic (6) Alcohol abuse ICD Code: F10.10 Status: Chronic (7) Elevated troponin ICD Code: R79.89 Status: Acute (8) Carotid artery stenosis ICD Code: I65.29 Status: Chronic Assessment and Plan 1. Cardiomyopathy: Likely secondary to alcohol abuse. Continue Lasix, potassium. Monitor on telemetry. Appreciate cardiology recommendations. Nuclear stress test ordered. 2. Elevated troponin: Patient's troponin increased overnight, and is now trending down. Appreciate cardiology recommendations. Stress test ordered. 3. Hypertensive urgency: Blood pressure is better this morning, but had remained elevated overnight. Vasotec as needed. 4. Syncope: Uncertain etiology. Possibly secondary to alcohol intoxication. 5. Carotid artery stenosis: Carotid artery ultrasound is abnormal. Check CTA of the carotid arteries. 6. Alcohol abuse: Patient was intoxicated upon presentation. He has been counseled regarding cessation of alcohol use. 7. Tobacco abuse: Counseled to quit smoking. 8. DVT prophylaxis: SCDs. Problem Qualifiers (1) Alcohol intoxication: Qualified Code: F10.120 - Alcohol intoxication, uncomplicated (2) Syncope: Qualified Code: R55 - Syncope, unspecified syncope type Geovanny Gomez MD June 07, 2016 11:21
[2016-06-07] MEDS ORDERED: REGADENOSON INJ 0.4 MG/5 ML SYR ONE (13:14)
--- NOTE | 2016-06-07 15:33 | RADRPT ---
EXAM DATE/TIME: 06/07/2016 12:33 [facility] COMPARISON: MYOCARDIAL PERF PHARM SPECT, GATED W/EF, October 06, 2014, 10:48. INDICATIONS : Chest pain. Coronary atherosclerosis. DOSE: 25.9 mCi Tc99m Myoview at stress. 8.1 mCi Tc99m Myoview at rest. 0.4 mg Lexiscan STRESS SYMPTOMS: Short of breath and flush feeling. EJECTION FRACTION: 20% MEDICAL HISTORY : Hypercholesterolemia. Hypertension. SURGICAL HISTORY : None. Right ankle surgery. Chest tube Right lung 2008 ENCOUNTER: Initial ACUITY: 1 day PAIN SCALE: 2/10 LOCATION: Chest TECHNIQUE: The patient underwent pharmacologic stress with infusion of prescribed dose. Continuous ECG tracing was monitored during stress. Gated SPECT imaging was performed after stress and conventional SPECT i maging was performed at rest. The examination was performed on a SPECT/CT scanner, both attenuation and non-corrected datasets were reviewed. FINDINGS: The gated Cine loop images demonstrate global hypokinesis and akinesis of the septum. The left ventr icular ejection fraction is calculated at 20%. The cardiac SPECT stress and rest images demonstrate no fixed or reversible defects to suggest infarc t or ischemia. CONCLUSION: 1. No evidence of infarct or ischemia. 2. Global hypokinesis and akinesis of the septum with left ventricular ejection fraction equaling 20 %. RISK CATEGORY: High risk (greater than 3% annual mortality rate). Joon Holguin MD on June 07, 2016 at 15:23 Board Certified Radiologist. This report was verified electronically.
[2016-06-07] MEDS ORDERED: IOHEXOL 350 MG/ML 10 ML VIAL (for RAD DIAG) IV ONE (19:34)
[2016-06-07 21:06] LABS: APTT (PATIENT) 30.4 SEC (24.3-30.1)
--- NOTE | 2016-06-07 23:09 | RADRPT ---
EXAM DATE/TIME: 06/07/2016 16:42 [facility] COMPARISON: No previous studies available for comparison. INDICATIONS : Syncope IV CONTRAST: 70 cc Omnipaque 350 (iohexol) IV RADIATION DOSE: 25.78 CTDIvol (mGy) MEDICAL HISTORY : Cardiovascular disease. Hypertension. SURGICAL HISTORY : Chest tube. ENCOUNTER: Initial ACUITY: 1 day PAIN SCALE: 2/10 LOCATION: Bilateral neck Elevated flow velocities and ICA/CCA ratios have been found to correlate with increased degrees of vessel stenosis, calculated as percentage of diameter relative to a normal segment of distal ICA/CCA. TECHNIQUE: Volumetric scanning was performed using a multirow detector CT scanner. The data was post processed with a variety of visualization algorithms including full-volume maximum intensity projection, multip lanar sliding thin-slab reformation, curved-planar reformation, and surface-rendering techniques. Us ing automated exposure control and adjustment of the mA and/or kV according to patient size, radiatio n dose was kept as low as reasonably achievable to obtain optimal diagnostic quality images. FINDINGS: Emphysematous changes with a large bulla in the left upper lobe.. There is normal origin of vessels f rom the arch with 60-70% stenosis involving the proximal left subclavian artery.. The right vertebral artery is dominant with an aplastic left vertebral artery. Examination of the right common carotid artery demonstrates the vessel to be widely patent. There is greater than 80% stenosis with a short weblike stenosis at the proximal internal carotid artery. More distally the cervical internal carotid artery is intact though is decreased in caliber secondary to the high-grade stenosis. Examination of the left common carotid artery demonstrates the vessel to be widely patent. There is 4 0-50% stenosis at the origin of the left internal carotid artery with fibrous and calcific plaque pre sent. More distally the cervical internal carotid artery is intact. Percent stenosis is calculated using the diameter of the stenotic region over the diameter of the nor mal distal internal carotid artery. CONCLUSION: 1. There is greater than 80% stenosis at the origin of the right internal carotid artery. There is 40 -50% stenosis at the origin of the left internal carotid artery. 2. There is 70-80% stenosis in the proximal left subclavian artery. Josiah Membreno MD on June 07, 2016 at 22:59 Board Certified Radiologist. This report was verified electronically.
[2016-06-08 04:00] VITALS: BP 154/80; PULSE 78; RESP 18; TEMP 97.9; O2SAT 95
[2016-06-08 05:11] LABS: APTT (PATIENT) 33.4 SEC (24.3-30.1)
[2016-06-08 08:00] VITALS: BP 163/91; PULSE 74; RESP 16; TEMP 98.6; O2SAT 96
[2016-06-08] MEDS: ASPIRIN 81 MG CHEW TAB CHEW SCH (08:23)
[2016-06-08] MEDS: amLODIPine BESYLATE 5 MG TAB PO SCH (08:23)
[2016-06-08] MEDS: FUROSEMIDE 20 MG/2 ML VIAL IV PUSH SCH ×2 (08:23→17:58)
[2016-06-08] MEDS: SODIUM CHLORIDE 0.9% FLUSH 10 ML FLUSH IV FLUSH SCH (08:24)
[2016-06-08 09:00] VITALS: PULSE 71; PULSE 90
[2016-06-08 10:35] LABS: AMPHETAMINE, URINE NEG (NEG); BARBITURATES, URINE NEG (NEG); COCAINE, URINE NEG (NEG)
[2016-06-08] MEDS ORDERED: LISINOPRIL 5 MG TAB PO SCH (11:00)
[2016-06-08] MEDS ORDERED: CARVEDILOL 3.125 MG TAB PO SCH (11:00)
[2016-06-08] MEDS ORDERED: POTASSIUM CHLORIDE 10 MEQ CONTROLLED RELEASE TAB PO SCH (11:00)
--- NOTE | 2016-06-08 11:03 | HHI.PR ---
Subjective Remarks Follow up elevated troponin, carotid artery stenosis. Patient denies chest pain , lightheadedness, dizziness, dyspnea. No complaints at this time. Objective Vitals Vital Signs Date Time Temp Pulse Resp B/P Pulse Ox O2 Delivery O2 Flow Rate FiO2 06/08/16 08:00 98.6 74 16 163/91 96 06/08/16 04:00 97.9 78 18 154/80 95 Automatic Cuff 06/07/16 23:00 97.9 75 16 162/97 97 06/07/16 20:00 92 06/07/16 19:39 98.6 83 20 165/79 98 06/07/16 15:50 98.3 81 16 119/67 99 06/07/16 15:13 90 06/07/16 11:35 97.9 78 16 98/56 97 I/O 06/07/16 06/07/16 06/07/16 06/08/16 06/08/16 06/08/16 07:00 15:00 23:00 07:00 15:00 23:00 Intake Total 240 ml Output Total 300 ml Balance -60 ml Intake Oral 240 ml Output Urine Total 300 ml # Bowel Movements 0 Result Diagram: 06/07/16 0528 06/07/16 0528 Imaging Last Impressions Myocardial Perfusion Scan Nuc Med 06/07/16 1046 Signed Impressions: Service Date/Time: Tuesday, June 07, 2016 12:33 - CONCLUSION: 1. No evidence of infarct or ischemia. 2. Global hypokinesis and akinesis of the septum with left ventricular ejection fraction equaling 20%%. RISK CATEGORY: High risk (greater than 3%% annual mortality rate). Joon Holguin MD Neck CTA 06/07/16 0000 Signed Impressions: Service Date/Time: Tuesday, June 07, 2016 16:42 - CONCLUSION: 1. There is greater than 80%% stenosis at the origin of the right internal carotid artery. There is 40-50%% stenosis at the origin of the left internal carotid artery. 2. There is 70-80%% stenosis in the proximal left subclavian artery. Josiah Membreno MD Carotid Artery Ultrasound 06/07/16 0000 Signed Impressions: Service Date/Time: Tuesday, June 07, 2016 07:40 - CONCLUSION: 1. Elevated peak systolic velocity of the left ICA suggesting greater than 70%% stenosis and elevated ICA/CCA ratio suggestive of 50-69%% stenosis on the left. CTA of the carotid arteries would be helpful for further evaluation. 2. No significant elevated systolic velocity of the right ICA. 3. Elevated peak systolic velocities of the external carotid arteries suggesting greater than 70%% stenosis on the left and 50-69%% stenosis on the right. 4. Extensive atherosclerotic plaque bilaterally as described above. Joon Holguin MD Chest X-Ray 06/06/16 1833 Signed Impressions: Service Date/Time: Monday, June 06, 2016 18:43 - CONCLUSION: Stable chronic change in the right upper lung. An acute abnormality is not clearly seen. Lacho Dey MD Head CT 06/06/16 0000 Signed Impressions: Service Date/Time: Monday, June 06, 2016 20:43 - CONCLUSION: 1. No acute intracranial abnormality seen. 2. Suspected encephalomalacia at the inferior right frontal lobe. 3. Bilateral maxillary sinus disease. Lacho Dey MD Objective Remarks General: No acute distress. Heart: Regular rate and rhythm. No murmur. Lungs: Clear to auscultation bilaterally. No wheezes, rales, or rhonchi. Breathing is nonlabored. Abdomen: Soft, nontender, nondistended. Extremities: No lower extremity edema. Psych: Alert and oriented. Procedures None Urinary Catheter: No Vascular Central Line Catheter: No A/P Problem List: (1) Alcohol intoxication ICD Code: F10.129 Status: Resolved (2) Syncope ICD Code: R55 Status: Acute (3) Cardiomyopathy ICD Code: I42.9 Status: Chronic (4) Hypertension ICD Code: I10 Status: Chronic (5) Tobacco abuse ICD Code: Z72.0 Status: Chronic (6) Alcohol abuse ICD Code: F10.10 Status: Chronic (7) Elevated troponin ICD Code: R79.89 Status: Acute (8) Carotid artery stenosis ICD Code: I65.29 Status: Chronic Assessment and Plan 1. Cardiomyopathy: Likely secondary to alcohol abuse. Continue Lasix, potassium. Monitor on telemetry. Appreciate cardiology recommendations. Nuclear stress test shows no reversible ischemia. Echocardiogram shows ejection fraction approximately 45%. Start Coreg, lisinopril. 2. Elevated troponin: Patient's troponin increased overnight, and is now trending down. Appreciate cardiology recommendations. Stress test ordered. 3. Hypertension: Continue Coreg, lisinopril, Lasix. 4. Syncope: Uncertain etiology. Possibly secondary to alcohol intoxication. 5. Carotid artery stenosis: Vascular surgery consultation is pending. 6. Alcohol abuse: Patient was intoxicated upon presentation. He has been counseled regarding cessation of alcohol use. 7. Tobacco abuse: Counseled to quit smoking. 8. DVT prophylaxis: SCDs. Discharge Planning Possible discharge home later today if cleared by vascular surgery. Problem Qualifiers (1) Alcohol intoxication: Qualified Code: F10.120 - Alcohol intoxication, uncomplicated (2) Syncope: Qualified Code: R55 - Syncope, unspecified syncope type Geovanny Gomez MD June 08, 2016 11:03
--- NOTE | 2016-06-08 11:10 | PD.CARD.PN ---
Subjective Subjective Remarks No chest pain, no shortness of breath Doing well Objective Medications Current Medications Medications (Trade) Dose Ordered Sig/Mohit Route Start Time Stop Time Status Last Admin (Aspirin Chew) 81 mg DAILY CHEW 06/07/16 09:00 06/08/16 08:23 (Norvasc) 5 mg DAILY PO 06/07/16 09:00 06/08/16 08:23 (Apresoline Inj) 10 mg Q4HR PRN IV PUSH 06/06/16 19:15 06/07/16 00:33 (NS Flush) 2 ml UNSCH PRN IV FLUSH 06/06/16 22:45 (NS Flush) 2 ml BID IV FLUSH 06/07/16 09:00 06/08/16 08:24 (Narcan Inj) 0.4 mg UNSCH PRN IV 06/06/16 22:45 (Lasix Inj) 20 mg BID@09,18 IV PUSH 06/07/16 09:00 06/08/16 08:23 (Heparin Inj) 5,000 units UNSCH PRN IV 06/07/16 09:00 Heparin Sodium (Porcine) 2500 units 2,500 units UNSCH PRN IV 06/07/16 09:00 06/08/16 06:05 (Heparin-D5W Inj) 250 ml @ 0 mls/hr TITRATE IV 06/07/16 03:00 06/07/16 03:32 (Vasotec Inj) 1.25 mg Q6H PRN IV PUSH 06/07/16 09:00 06/07/16 08:54 (Coreg) 3.125 mg Q12HR PO 06/08/16 11:00 (Prinivil) 5 mg DAILY PO 06/08/16 11:00 (KCl) 10 meq DAILY PO 06/08/16 11:00 Vital Signs / I&O Vital Signs Date Time Temp Pulse Resp B/P Pulse Ox O2 Delivery O2 Flow Rate FiO2 06/08/16 08:00 98.6 74 16 163/91 96 06/08/16 04:00 97.9 78 18 154/80 95 Automatic Cuff 06/07/16 23:00 97.9 75 16 162/97 97 06/07/16 20:00 92 06/07/16 19:39 98.6 83 20 165/79 98 06/07/16 15:50 98.3 81 16 119/67 99 5/3/17 15:13 90 06/07/16 11:35 97.9 78 16 98/56 97 I/O 06/07/16 06/07/16 06/07/16 06/08/16 06/08/16 06/08/16 07:00 15:00 23:00 07:00 15:00 23:00 Intake Total 240 ml Output Total 300 ml Balance -60 ml Intake Oral 240 ml Output Urine Total 300 ml # Bowel Movements 0 Physical Exam GENERAL: NAD, AAOx3 SKIN: Warm and dry. HEAD: Atraumatic. Normocephalic. EYES: Pupils equal and round. No scleral icterus. No injection or drainage. ENT: No nasal bleeding or discharge. Mucous membranes pink and moist. NECK: Trachea midline. No JVD. CARDIOVASCULAR: Regular rate and rhythm. RESPIRATORY: No accessory muscle use. Clear to auscultation. Breath sounds equal bilaterally. GASTROINTESTINAL: Abdomen soft, non-tender, nondistended. Hepatic and splenic margins not palpable. MUSCULOSKELETAL: Extremities without clubbing, cyanosis, or edema. No obvious deformities. NEUROLOGICAL: Awake and alert. No obvious cranial nerve deficits. Motor grossly within normal limits. Five out of 5 muscle strength in the arms and legs. Normal speech. PSYCHIATRIC: Appropriate mood and affect; insight and judgment normal. Laboratory Laboratory Tests Test 06/07/16 06/08/16 06/08/16 20:35 04:00 09:30 Activated Partial 30.4 SEC 33.4 SEC Thromboplast Time Urine Opiates Screen NEG Urine Barbiturates Screen NEG Urine Amphetamines Screen NEG Urine Benzodiazepines Screen NEG Urine Cocaine Screen NEG Urine Cannabinoids Screen NEG Assessment and Plan Problem List: (1) Elevated troponin (2) Cardiomyopathy (3) Abnormal EKG (4) Alcohol intoxication (5) Hypertension (6) Tobacco abuse (7) Alcohol abuse Assessment and Plan 1) Mild elevation of troponin, Type 2 in nature with extensive HTN.... Myocardial perfusion imaging negative for ischemia 2) Blood pressure control, better on current medications Patient told to stop blood pressure medications at [facility] because they weren't working?? Will start on Coreg/TAE-I for mild cardiomyopathy/HTN... needs follow with PCP 3) Echo showing EF 45-50%, diffusion wall motion abnormality, most likely secondary to long standing hypertension/ETOH abuse 4) Tobacco cessation 5) Cardiovascularly stable for discharge this afternoon, needs follow up for his BP control Problem Qualifiers (1) Alcohol intoxication: Qualified Code: F10.120 - Alcohol intoxication, uncomplicated Luke Garcia DO June 08, 2016 11:10
[2016-06-08 12:00] VITALS: BP 176/79; PULSE 77; RESP 16; TEMP 98.5; O2SAT 98
[2016-06-08 15:12] LABS: APTT (PATIENT) 27.7 SEC (24.3-30.1)
[2016-06-08 16:00] VITALS: BP 119/57; PULSE 68; RESP 16; TEMP 98.8; O2SAT 96
--- NOTE | 2016-06-08 17:57 | PD.VS.CON ---
History of Present Illness Chief Complaint: syncope vs. near-syncope episode Consult Requested by: History of Present Illness 56 year old male who two days ago had episode of near syncope/syncope when he blacked out and fell down on the street. Was drinking BA 144.. Denies TIA signs. Hx of smoking and PAD. Past/Family/Social History Home Medications Discontinued Reported Medications [No Home Meds] No Conflict Check 06/06/16 Potassium Gluconate (Eql Potassium Gluconate)595 Mg [id number] Mg PO DAILY 2 tabs every morning 05/13/15 Discontinued Scripts Multivitamins (Theragran)1 Tab Tab1 Tab PO DAILY #30 TAB Prov:Moreno Clark MD 10/07/14 Coded Allergies: No Known Allergies (Verified , 05/13/15) Physical Exam Vitals/I&O Date Time Temp Pulse Resp B/P Pulse Ox O2 Delivery O2 Flow Rate FiO2 06/08/16 16:00 98.8 68 16 119/57 96 06/08/16 12:00 98.5 77 16 176/79 98 06/08/16 09:00 71 06/08/16 09:00 90 06/08/16 08:00 98.6 74 16 163/91 96 06/08/16 04:00 97.9 78 18 154/80 95 Automatic Cuff 06/07/16 23:00 97.9 75 16 162/97 97 06/07/16 20:00 92 06/07/16 19:39 98.6 83 20 165/79 98 06/08/16 06/08/16 06/08/16 07:00 15:00 23:00 Intake Total 240 ml Output Total 300 ml Balance -60 ml Neuro: CN2-12 intact. motor and sensory intact bilateral upper and lower extremity. HEENT: Neck: no carotid bruits Heart: regular Lungs: cta bilaterally Abdomen: soft and ND. Vascular: palpable PT bialterally but less prominent on the left. Laboratory Tests Test 06/07/16 06/08/16 06/08/16 06/08/16 20:35 04:00 09:30 14:26 Activated Partial 30.4 33.4 27.7 Thromboplast Time Urine Opiates Screen NEG Urine Barbiturates Screen NEG Urine Amphetamines Screen NEG Urine Benzodiazepines Screen NEG Urine Cocaine Screen NEG Urine Cannabinoids Screen NEG Date/Time Procedure Status Source Growth 06/07/16 21:57 Stool Occult Blood (LAZARO) - Final Complete Stool Stool HEMOCCULT NEGATIVE Last 48 hours Impressions Myocardial Perfusion Scan Nuc Med 06/07/16 1046 Signed Impressions: Service Date/Time: Tuesday, June 07, 2016 12:33 - CONCLUSION: 1. No evidence of infarct or ischemia. 2. Global hypokinesis and akinesis of the septum with left ventricular ejection fraction equaling 20%%. RISK CATEGORY: High risk (greater than 3%% annual mortality rate). Joon Holguin MD Neck CTA 06/07/16 0000 Signed Impressions: Service Date/Time: Tuesday, June 07, 2016 16:42 - CONCLUSION: 1. There is greater than 80%% stenosis at the origin of the right internal carotid artery. There is 40-50%% stenosis at the origin of the left internal carotid artery. 2. There is 70-80%% stenosis in the proximal left subclavian artery. Josiah Membreno MD Carotid Artery Ultrasound 06/07/16 0000 Signed Impressions: Service Date/Time: Tuesday, June 07, 2016 07:40 - CONCLUSION: 1. Elevated peak systolic velocity of the left ICA suggesting greater than 70%% stenosis and elevated ICA/CCA ratio suggestive of 50-69%% stenosis on the left. CTA of the carotid arteries would be helpful for further evaluation. 2. No significant elevated systolic velocity of the right ICA. 3. Elevated peak systolic velocities of the external carotid arteries suggesting greater than 70%% stenosis on the left and 50-69%% stenosis on the right. 4. Extensive atherosclerotic plaque bilaterally as described above. Joon Holguin MD Chest X-Ray 06/06/16 1833 Signed Impressions: Service Date/Time: Monday, June 06, 2016 18:43 - CONCLUSION: Stable chronic change in the right upper lung. An acute abnormality is not clearly seen. Lacho Dey MD Assessment and Plan Assessment: (1) Carotid artery stenosis Status: Chronic Plan 56 year old male with asymptomatic left ICA stenosis less than 80% by duplex US and CTA. I don't believe his symptoms are associated with his carotid stenosis. Should be started on a statin and antiplatelet medication. Will allow to recover from alcohol intoxication and can follow up with us in 6 months with repeat duplex US in our office (will make office appointment for the patient) or sooner if has TIA symptoms which I described to him. Thanks for allowing me assist in the care of this patient. Natalio Estrada DO, FACS [employer] Supervisor of Vascular Surgery /[facility] Natalio Estrada DO June 08, 2016 17:57
--- NOTE | 2016-06-08 17:58 | PD.VS.CON ---
History of Present Illness Chief Complaint: Near syncope vs true syncope episode. Consult Requested by: History of Present Illness 56 year old without TIA symptoms (lateralizing sign, aphasia or Past/Family/Social History Home Medications Discontinued Reported Medications [No Home Meds] No Conflict Check 06/06/16 Potassium Gluconate (Eql Potassium Gluconate)595 Mg [id number] Mg PO DAILY 2 tabs every morning 05/13/15 Discontinued Scripts Multivitamins (Theragran)1 Tab Tab1 Tab PO DAILY #30 TAB Prov:Moreno Clark MD 10/07/14 Coded Allergies: No Known Allergies (Verified , 05/13/15) Physical Exam Vitals/I&O Date Time Temp Pulse Resp B/P Pulse Ox O2 Delivery O2 Flow Rate FiO2 06/08/16 16:00 98.8 68 16 119/57 96 06/08/16 12:00 98.5 77 16 176/79 98 06/08/16 09:00 71 06/08/16 09:00 90 06/08/16 08:00 98.6 74 16 163/91 96 06/08/16 04:00 97.9 78 18 154/80 95 Automatic Cuff 06/07/16 23:00 97.9 75 16 162/97 97 06/07/16 20:00 92 06/07/16 19:39 98.6 83 20 165/79 98 06/08/16 06/08/16 06/08/16 07:00 15:00 23:00 Intake Total 240 ml Output Total 300 ml Balance -60 ml Laboratory Tests Test 06/07/16 06/08/16 06/08/16 06/08/16 20:35 04:00 09:30 14:26 Activated Partial 30.4 33.4 27.7 Thromboplast Time Urine Opiates Screen NEG Urine Barbiturates Screen NEG Urine Amphetamines Screen NEG Urine Benzodiazepines Screen NEG Urine Cocaine Screen NEG Urine Cannabinoids Screen NEG Date/Time Procedure Status Source Growth 06/07/16 21:57 Stool Occult Blood (LAZARO) - Final Complete Stool Stool HEMOCCULT NEGATIVE Last 48 hours Impressions Myocardial Perfusion Scan Nuc Med 06/07/16 1046 Signed Impressions: Service Date/Time: Tuesday, June 07, 2016 12:33 - CONCLUSION: 1. No evidence of infarct or ischemia. 2. Global hypokinesis and akinesis of the septum with left ventricular ejection fraction equaling 20%%. RISK CATEGORY: High risk (greater than 3%% annual mortality rate). Joon Holguin MD Neck CTA 06/07/16 0000 Signed Impressions: Service Date/Time: Tuesday, June 07, 2016 16:42 - CONCLUSION: 1. There is greater than 80%% stenosis at the origin of the right internal carotid artery. There is 40-50%% stenosis at the origin of the left internal carotid artery. 2. There is 70-80%% stenosis in the proximal left subclavian artery. Josiah Membreno MD Carotid Artery Ultrasound 06/07/16 0000 Signed Impressions: Service Date/Time: Tuesday, June 07, 2016 07:40 - CONCLUSION: 1. Elevated peak systolic velocity of the left ICA suggesting greater than 70%% stenosis and elevated ICA/CCA ratio suggestive of 50-69%% stenosis on the left. CTA of the carotid arteries would be helpful for further evaluation. 2. No significant elevated systolic velocity of the right ICA. 3. Elevated peak systolic velocities of the external carotid arteries suggesting greater than 70%% stenosis on the left and 50-69%% stenosis on the right. 4. Extensive atherosclerotic plaque bilaterally as described above. Joon Holguin MD Chest X-Ray 06/06/16 1833 Signed Impressions: Service Date/Time: Monday, June 06, 2016 18:43 - CONCLUSION: Stable chronic change in the right upper lung. An acute abnormality is not clearly seen. MD Sean Mcdonough Ryan V. DO June 08, 2016 17:58
--- NOTE | 2016-06-08 18:27 | EKG ---
Date Performed: 06/07/2016 Time Performed: 07:42:21 PTAGE: 56 years EKG: Sinus rhythm RIGHT ATRIAL ENLARGEMENT POSSIBLE LEFT ATRIAL ENLARGEMENT LEFT VENTRICULAR HYPERTROPHY AND ST-T CUEVAS GE ABNORMAL ECG Compared to prior tracing no significant change PREVIOUS TRACING : 06/07/2016 01.36 DOCTOR: Josiah Moise Interpretating Date/Time 06/08/2016 18:24:56
[2016-06-08] MEDS ORDERED: LISI-519 PO (18:52)
[2016-06-08] MEDS ORDERED: POTA-243 PO (18:52)
[2016-06-08] MEDS ORDERED: CARV3.125 PO (18:52)
[2016-06-08] MEDS ORDERED: ATOR20TA15 PO (18:52)
[2016-06-08] MEDS ORDERED: ASPI81TA11 PO (18:52)
[2016-06-08] MEDS ORDERED: FURO20TA PO (18:52)
[2016-06-08] MEDS ORDERED: AMLO5 PO (18:52)
--- NOTE | 2016-06-08 18:53 | HHI.DCPOC ---
Discharge Care Plan Diagnosis: (1) Cardiomyopathy (2) Hypertension (3) Alcohol intoxication (4) Carotid artery stenosis (5) Elevated troponin Goals to Promote Your Health * To prevent worsening of your condition and complications * To maintain your health at the optimal level Directions to Meet Your Goals Take your medications as prescribed Follow your dietary instruction Follow activity as directed Keep your appointments as scheduled Take your immunizations and boosters as scheduled If your symptoms worsen call your PCP, if no PCP go to Urgent Care Center or Emergency Room Smoking is Dangerous to Your Health. Avoid second hand smoke Call the 24-hour hour crisis hotline for domestic abuse at Geovanny Gomez MD June 08, 2016 18:53
== END 2016-06-08 20:16 | disposition home or self-care (01) | DRG 897 ==
LOC: NEPE 18:24 → NEDA 22:47 → NEPGCP 06-07 01:56 → OBSVTOIN 06-07 02:56 → N04B 06-07 22:37
PROVIDERS: ADMIT Family Medicine; ATTEND Family Medicine
DX: F10.220 Alcohol dependence with intoxication, uncomplicated (principal); I42.9 Cardiomyopathy, unspecified; I65.23 Occlusion and stenosis of bilateral carotid arteries; I16.0 Hypertensive urgency; J44.9 Chronic obstructive pulmonary disease, unspecified; I10 Essential (primary) hypertension; Y90.6 Blood alcohol level of 120-199 mg/100 ml; R26.9 Unspecified abnormalities of gait and mobility; Y93.01 Activity, walking, marching and hiking; F17.210 Nicotine dependence, cigarettes, uncomplicated; Z91.14 Patient's other noncompliance with medication regimen; W01.0XXA Fall on same level from slipping, tripping and stumbling without subsequent striking against object, initial encounter
CPT/HCPCS: 70450; 70498; 71010; 78452; 80048; 80053; 80307; 82272; 82550; 82552; 83735; 83880; 84484; 85025; 85610; 85730; 93005; 93017; 93306; 93880; A9502; G0378; J0360; J1644; J1940; J2785; J7030; Q9967

== ENCOUNTER 2016-06-16 08:54 | Emergency (ER) | payer SELFPAY ==
[~2016-06-16] VITALS: Ht 180.3 cm; Wt 60.0 kg
[2016-06-16] VITALS (7 sets, daily range): BP systolic 184–231; BP diastolic 76–105; PULSE 20–70; RESP 16–18; TEMP 97.6; O2SAT 98–100
[~2016-06-16 08:54] MED LIST changes: +AMLO5 PO; +ASPI81TA11 PO; +ATOR20TA15 PO; +CARV3.125 PO; +FURO20TA PO; +LISI-519 PO; -MVI PO; +POTA-243 PO; -POTA595T5 PO
--- NOTE | 2016-06-16 09:06 | PD ---
HPI Chief Complaint: Musculoskeletal Complaint Time Seen by Provider: 09:05 Travel History International Travel<30 days: No Contact w/Intl Traveler<30days: No Traveled to known affect area: No History of Present Illness HPI 56-year-old male came to the emergency room with history of bilateral leg pain left worse than the right after he walks 50-100 feet. Patient says this has been going on for past few weeks. However is progressively worsening. 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 Patient describes the pain shooting down from his knee all the way to his foot from the back of his leg and feels like the muscles or cramping. He has to stop and sit down and the pain slowly subsides. Once again the pain comes first on the left leg but he thinks that could be because of the fact that he favors his right leg due to an old injury. After few minutes the right leg starts to cramp as well. No history of chest pain or shortness of breath. Patient was recently admitted and discharged from this hospital for a syncopal episode. Diagnosed with right carotid artery blockage of 70%. He showed me on his discharge paperwork that he was referred to follow-up with the vascular surgeon Dr. Estrada for that. Patient is a chronic smoker for 40 years smoking more than a pack a day. He has recently been started on blood pressure medications, baby aspirin and he has started taking all these for past 3 days. His blood pressure was significantly elevated in triage. [facility] Past Medical History Narrative Medical List of his past medical, surgical, social and family history was reviewed from the nursing note. 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 Reported Meds & Prescriptions Reported Meds & Active Scripts Active Atorvastatin (Atorvastatin Calcium) 20 Mg Tab 20 Mg PO HS Klor-Con 10 (Potassium Chloride) 10 Meq Tab 10 Meq PO DAILY Lisinopril 5 Mg Tab 5 Mg PO DAILY Furosemide 20 Mg Tab 20 Mg PO BID Coreg (Carvedilol) 3.125 Mg Tab 3.125 Mg PO Q12HR Norvasc (Amlodipine Besylate) 5 Mg Tab 5 Mg PO DAILY Aspirin EC (Aspirin) 81 Mg Tabdr 81 Mg PO DAILY Narrative Medication List of his home medications reviewed from the nursing. Review of Systems Except as stated in HPI: all other systems reviewed are Neg Physical Exam Narrative GENERAL: Awake, alert, emaciated, mild distress SKIN: Focused skin assessment warm/dry. HEAD: Atraumatic. Normocephalic. EYES: Pupils equal and round. No scleral icterus. No injection or drainage. ENT: No nasal bleeding or discharge. Mucous membranes pink and moist. NECK: Trachea midline. No JVD. CARDIOVASCULAR: Regular rate and rhythm. No murmur appreciated. RESPIRATORY: No accessory muscle use. Clear to auscultation. Breath sounds equal bilaterally. GASTROINTESTINAL: Abdomen soft, non-tender, nondistended. Hepatic and splenic margins not palpable. MUSCULOSKELETAL: No obvious deformities. No clubbing. No cyanosis. No edema. Right distal DP and PT not palpable or dopplerable, left DP not palpable or dopplerable but PT is dopplerable. Bilateral biphasic popliteal pulses patient some Doppler. NEUROLOGICAL: Awake and alert. No obvious cranial nerve deficits. Motor grossly within normal limits. Normal speech. PSYCHIATRIC: Appropriate mood and affect; insight and judgment normal. Data Data Last Documented VS Vital Signs Date Time Temp Pulse Resp B/P Pulse Ox O2 Delivery O2 Flow Rate FiO2 06/16/16 13:32 72 18 184/76 99 06/16/16 13:05 Nasal Cannula 2 06/16/16 08:55 97.6 Orders Electrocardiogram (06/16/16 09:20) Basic Metabolic Panel (Bmp) (06/16/16 09:20) Complete Blood Count With Diff (06/16/16 09:20) Magnesium (Mg) (06/16/16 09:20) Prothrombin Time / Inr (Pt) (06/16/16 09:20) Ecg Monitoring (06/16/16 09:20) Bilateral Bp Monitoring (06/16/16 09:20) Iv Access Insert/Monitor (06/16/16 09:20) Oximetry (06/16/16 09:20) Oxygen Administration (06/16/16 09:20) Aspirin (Aspirin) (06/16/16 09:30) Sodium Chloride 0.9% Flush (Ns Flush) (06/16/16 09:30) Sodium Chlorid 0.9% 500 Ml Inj (Ns 500 M (06/16/16 09:30) Cta Runoff W Iv Contrast W 3d (06/16/16 ) Iohexol 350 Inj (Omnipaque 350 Inj) (06/16/16 11:03) Clonidine (Catapres) (06/16/16 13:00) Labs Laboratory Tests Test 06/16/16 09:34 White Blood Count 9.2 TH/MM3 Red Blood Count 4.41 MIL/MM3 Hemoglobin 12.7 GM/DL Hematocrit 37.8 % Mean Corpuscular Volume 85.7 FL Mean Corpuscular Hemoglobin 28.8 PG Mean Corpuscular Hemoglobin 33.7 % Concent Red Cell Distribution Width 22.7 % Platelet Count 307 TH/MM3 Mean Platelet Volume 8.1 FL Neutrophils (%) (Auto) 61.0 % Lymphocytes (%) (Auto) 21.3 % Monocytes (%) (Auto) 8.5 % Eosinophils (%) (Auto) 8.9 % Basophils (%) (Auto) 0.3 % Neutrophils # (Auto) 5.6 TH/MM3 Lymphocytes # (Auto) 2.0 TH/MM3 Monocytes # (Auto) 0.8 TH/MM3 Eosinophils # (Auto) 0.8 TH/MM3 Basophils # (Auto) 0.0 TH/MM3 CBC Comment DIFF FINAL Differential Comment Prothrombin Time 10.5 SEC Prothromb Time International 1.0 RATIO Ratio Sodium Level 137 MEQ/L Potassium Level 3.9 MEQ/L Chloride Level 100 MEQ/L Carbon Dioxide Level 31.6 MEQ/L Anion Gap 5 MEQ/L Blood Urea Nitrogen 24 MG/DL Creatinine 1.32 MG/DL Estimat Glomerular Filtration 56 ML/MIN Rate Random Glucose 86 MG/DL Calcium Level 8.7 MG/DL Magnesium Level 2.2 MG/DL MDM Medical Decision Making Medical Screen Exam Complete: Yes Emergency Medical Condition: Yes Medical Record Reviewed: Yes Interpretation(s) Twelve-lead EKG was reviewed by me. Normal sinus rhythm, normal axis, LVH, lateral and inferior ST segment depression and T-wave inversion which is unchanged from 06/07/2016. Heart rate of 63 bpm. Differential Diagnosis Peripheral arterial disease, leg claudication syndrome, Bergers disease Narrative Course 11:47 AM blood test results are back. Patient has some renal insufficiency which was noticed from the past blood test. He has been given IV fluid bolus. CT lower extremity angiogram was ordered which has been done. Awaiting for the report. Patient was also given a full strength aspirin. Currently he is pain- free. 12:59 PM CAT scan result finally came back. Shows significant atherosclerosis and stenosis left lower extremity worse than the right. I put a call out for the vascular surgeon Dr. Blanchard. Awaiting for him to call back to discuss the plan. 1:09 PM I just discussed the case with Dr. Blanchard who is on for vascular surgery today. He thinks that patient should continue being on the aspirin 81 mg every day and should call Dr. Estrada today or first thing Sunday to get an appointment soon regarding the leg along with his carotids as well. I will discharge this patient at this point. Procedures EKG Prior to Arrival: No Physician Communication Physician Communication Dr. Blanchard Diagnosis Primary Impression: Peripheral angiopathy Additional Impressions: Bilateral claudication of lower limb Hypertension Qualified Code: I10 - Essential hypertension Needs smoking cessation education Referrals: Natalio Estrada DO Additional Instructions: Please return to the ER if the condition worsens or any other new concerns. You must stop smoking in order to improve your vascular disease. Please follow- up with the vascular surgeon Dr. Nettles on the June 28 at 3:15 PM. Continue taking a blood pressure medication and aspirin until then. Your blood pressure was very high during this visit. I am recommending to go up on your Amlodipine ( Norvasc) to 10mg from 5 mg daily. Med/Other Pt SpecificInfo: Existing Med Changed (Amlodipine dose is doubled. ) Disposition: 01 DISCHARGE HOME Condition: Stable Darcy Villalpando MD June 16, 2016 09:05
[2016-06-16] MEDS ORDERED: SODIUM CHLORIDE 0.9% FLUSH 10 ML FLUSH IVF PRN (09:30)
[2016-06-16] MEDS ORDERED: SODIUM CHLORID 0.9% 500 ML INJ 500 ML IV ONE (09:30)
[2016-06-16] MEDS ORDERED: ASPIRIN 325 MG TAB PO ONE (09:30)
[2016-06-16 09:50] LABS: AUTOMATED NEUTROPHIL # 5.6 TH/MM3 (1.8-7.7); BASOPHIL % 0.3 % (0.0-2.0); EOSINOPHIL # 0.8 TH/MM3 (0-0.4); EOSINOPHIL % 8.9 % (0.0-4.0); HEMATOCRIT 37.8 % (39.0-51.0); HEMO FLAGS DIFF FINAL; LYMPH % 21.3 % (9.0-44.0); MEAN CELL VOLUME 85.7 FL (80.0-100.0); MEAN CORPUSCULAR HEMOGLOBIN 28.8 PG (27.0-34.0); MEAN CORPUSCULAR HGB CONC 33.7 % (32.0-36.0); MONO % 8.5 % (0.0-8.0); PLATELET COUNT 307 TH/MM3 (150-450); RED BLOOD COUNT 4.41 MIL/MM3 (4.50-5.90); RED CELL DISTRIBUTION WIDTH 22.7 % (11.6-17.2); WHITE BLOOD COUNT 9.2 TH/MM3 (4.0-11.0)
[2016-06-16 09:58] LABS: PROTHROMBIN TIME - PATIENT 10.5 SEC (9.8-11.6)
[2016-06-16 10:09] LABS: BICARBONATE 31.6 MEQ/L (21.0-32.0); MAGNESIUM 2.2 MG/DL (1.5-2.5); POTASSIUM 3.9 MEQ/L (3.5-5.1)
[2016-06-16] MEDS ORDERED: IOHEXOL 350 MG/ML 10 ML VIAL (for RAD DIAG) IV ONE (11:03)
--- NOTE | 2016-06-16 12:01 | EKG ---
Date Performed: 06/16/2016 Time Performed: 09:28:28 PTAGE: 56 years EKG: Sinus rhythm LEFT ATRIAL ENLARGEMENT LEFT VENTRICULAR HYPERTROPHY AND ST-T CHANGE ABNORMAL ECG NO SIGNIFICANT ELDA NGE FROM PRIOR ELECTROCARDIOGRAM. PREVIOUS TRACING : 06/07/2016 07.42 DOCTOR: Wilfredo Young Interpretating Date/Time 06/16/2016 12:00:27
--- NOTE | 2016-06-16 12:42 | RADRPT ---
EXAM DATE/TIME: 06/16/2016 10:56 [facility] COMPARISON: No previous studies available for comparison. INDICATIONS : Bilateral leg cramping. IV CONTRAST: 99 cc Omnipaque 350 (iohexol) IV RADIATION DOSE: 5.12 CTDIvol (mGy) MEDICAL HISTORY : Cardiovascular disease. Hypertension. SURGICAL HISTORY : Right ankle fracture repair. ENCOUNTER: Initial ACUITY: 1 week PAIN SCALE: 5/10 LOCATION: Bilateral lower legs. TECHNIQUE: Volumetric scanning was performed using a multi-row detector CT scanner. The data was post processed with a variety of visualization algorithms including full volume maximum intensity projection, multi -planar sliding thin slab reformation, curved planar reformation, and surface rendering techniques. Using automated exposure control and adjustment of the mA and/or kV according to patient size, radiat ion dose was kept as low as reasonably achievable to obtain optimal diagnostic quality images. FINDINGS: ABDOMINAL AORTA: Moderate atherosclerotic calcification is seen in the abdominal aorta without dilatation. 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 The superior mesenteric artery and celiac artery are patent.. RIGHT LEG: Extensive calcification is seen at the aortic bifurcation and flow limiting on the right. This calci fication extends into the common femoral. Moderate atherosclerotic calcification is present. Large inferior epigastric collaterals were evident. Moderate atherosclerotic disease is present in the mod erately patent superficial femoral artery. Prominent profunda is evident.. The popliteal artery is patent with [place] three-vessel trifurcation evident. 2 vessels are seen at the ankle. LEFT LEG: In flow limiting stenosis is seen in the right common iliac extending into the common femoral. There is prominent profunda with 8 partially occluded proximal superficial femoral artery that poorly nasir nstitutes at the aortic hiatus. The popliteal artery is patent. There is two-vessel calcification i dentified with the anterior tibial artery small and diminutive. Abundant calcification is present in the tibial peroneal trunk and trifurcation breakup and mid calf. The posterior tibial artery provid es straight lateral to the foot. Review of source data reveals they small right kidney from chronic arterial occlusion. Ext ensive atherosclerotic vascular calcifications are evident. Degenerative changes are present in the lumbar spine with moderate spinal stenosis CONCLUSION: Atherosclerotic vascular disease with bilaterally flow limiting stenosis with trifurcation breakup wo rse on the left than the right. Correlation with ABIs is suggested to discriminate between neurogeni c and vascular claudication... Galen Beal MD FACR on June 16, 2016 at 12:17 Board Certified Radiologist. This report was verified electronically.
[2016-06-16] MEDS ORDERED: cloNIDine HCL 0.1 MG TAB PO ONE (13:00)
== END 2016-06-16 13:40 | disposition home or self-care (01) ==
LOC: NEPD 08:54
DX: I73.9 Peripheral vascular disease, unspecified (principal); I65.21 Occlusion and stenosis of right carotid artery; I10 Essential (primary) hypertension; I51.7 Cardiomegaly; E78.00 Pure hypercholesterolemia, unspecified; F17.210 Nicotine dependence, cigarettes, uncomplicated
CPT/HCPCS: 75635; 80048; 83735; 85025; 85610; 93005; 96360; 99284; J7040; Q9967

== ENCOUNTER 2016-07-29 01:53 | Emergency (ER) | payer SELFPAY ==
[2016-07-29] VITALS (7 sets, daily range): BP systolic 118–259; BP diastolic 55–119; PULSE 68–81; RESP 16–18; TEMP 97.8–98.4; O2SAT 96–100
[~2016-07-29] VITALS: Ht 177.8 cm; Wt 52.0 kg
[2016-07-29] MEDS ORDERED: LABETALOL HCL 100 MG/20 ML VIAL IV PUSH ONE (03:45)
--- NOTE | 2016-07-29 03:51 | PD ---
HPI Chief Complaint: Hypertension Time Seen by Provider: 03:33 Travel History International Travel<30 days: No Contact w/Intl Traveler<30days: No Traveled to known affect area: No History of Present Illness HPI Patient is a 56-year-old male who presents to the emergency department for elevated blood pressure and headache. Patient states he has a history of significant pressure. The patient has been out of his medications including amlodipine and lisinopril for the last 2 weeks. He notes increasing left sided headaches with his elevated blood pressure and dizziness. Patient denies any chest pain, shortness of breath, nausea, vomiting, or abdominal pain. He denies any focal deficits. The patient states he doesn't have a primary physician and had no one to refill his medications. The patient was recently admitted to the hospital in June for similar symptoms and underwent echocardiogram and nuclear medicine myocardial perfusion scan. He denies any current chest pain or shortness of breath. PFSH Past Medical History Arthritis: Yes (GENERALIZED) Autoimmune Disease: No Blood Disorders: No Anxiety: Yes Depression: Yes Heart Rhythm Problems: No Cancer: No Cardiovascular Problems: Yes (HTN) High Cholesterol: Yes Diabetes: No Diminished Hearing: No Endocrine: No Gastrointestinal Disorders: No Genitourinary: No Hypertension: Yes Immune Disorder: No Implanted Vascular Access Dvce: Yes Musculoskeletal: Yes Neurologic: No Psychiatric: Yes Reproductive: No Respiratory: No Immunizations Current: No Thyroid Disease: No Past Surgical History 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13) Thoracic Surgery: Yes (CHEST TUBE INSERTION RIGHT LUNG-07/01/08) Other Surgery: Yes (RIGHT ANKLE, 8 SCREWS AND PLATE) Social History Alcohol Use: Yes (occ) Tobacco Use: Yes (1PPD) Substance Use: No Allergies-Medications (Allergen,Severity, Reaction): Coded Allergies: No Known Allergies (Verified , 07/29/16) Reported Meds & Prescriptions Reported Meds & Active Scripts Active Atorvastatin (Atorvastatin Calcium) 20 Mg Tab 20 Mg PO HS Klor-Con 10 (Potassium Chloride) 10 Meq Tab 10 Meq PO DAILY Lisinopril 5 Mg Tab 5 Mg PO DAILY Furosemide 20 Mg Tab 20 Mg PO BID Coreg (Carvedilol) 3.125 Mg Tab 3.125 Mg PO Q12HR Norvasc (Amlodipine Besylate) 5 Mg Tab 5 Mg PO DAILY Aspirin EC (Aspirin) 81 Mg Tabdr 81 Mg PO DAILY Review of Systems Except as stated in HPI: all other systems reviewed are Neg Eyes: No: Blurred Vision HENT: Positive: Headaches, Lightheadedness, No: Neck Pain Cardiovascular: No: Chest Pain or Discomfort Gastrointestinal: No: Nausea, Vomiting, Abdominal Pain Genitourinary: No: Dysuria Musculoskeletal: No: Weakness Neurologic: No: Focal Abnormalities, Paresthesia, Sensory Disturbance Psychiatric: No: Substance Abuse (states he has not drank alcohol in over 1 month) Physical Exam Narrative GENERAL: Awake, alert, pleasant 56-year-old male who appears his stated age and is in no acute respiratory distress. SKIN: Focused skin assessment warm/dry. HEAD: Atraumatic. Normocephalic. EYES: Pupils equal and round. Pupils are 4 mm bilateral and reactive. EOMs are intact. ENT: No nasal bleeding or discharge. Mucous membranes pink and moist. NECK: Trachea midline. No JVD. CARDIOVASCULAR: Regular rate and rhythm. No murmur appreciated. RESPIRATORY: No accessory muscle use. Clear to auscultation. Breath sounds equal bilaterally. No rebound tenderness. Abdominal: No rebound tenderness. MUSCULOSKELETAL: No obvious deformities. No clubbing. No cyanosis. No edema. NEUROLOGICAL: Awake and alert. No obvious cranial nerve deficits. Motor grossly within normal limits. Normal speech. Nonfocal. Oriented 4. PSYCHIATRIC: Appropriate mood and affect; insight and judgment normal. Data Data Last Documented VS Vital Signs Date Time Temp Pulse Resp B/P Pulse Ox O2 Delivery O2 Flow Rate FiO2 07/29/16 04:46 78 16 205/96 100 Room Air 07/29/16 01:58 97.8 Orders Complete Blood Count With Diff (07/29/16 03:42) Comprehensive Metabolic Panel (07/29/16 03:42) Labetalol Inj (Trandate Inj) (07/29/16 03:45) Ct Brain W/O Iv Contrast(Rout) (07/29/16 ) Potassium Chloride (Kcl) (07/29/16 05:00) Potassium Chlor 20 Meq Premix (Kcl 20 Me (07/29/16 05:00) Lisinopril (Prinivil) (07/29/16 05:00) Amlodipine (Norvasc) (07/29/16 05:00) Labs Laboratory Tests Test 07/29/16 03:45 White Blood Count 7.5 TH/MM3 Red Blood Count 3.73 MIL/MM3 Hemoglobin 11.0 GM/DL Hematocrit 32.6 % Mean Corpuscular Volume 87.3 FL Mean Corpuscular Hemoglobin 29.5 PG Mean Corpuscular Hemoglobin 33.8 % Concent Red Cell Distribution Width 17.6 % Platelet Count 242 TH/MM3 Mean Platelet Volume 8.8 FL Neutrophils (%) (Auto) 58.7 % Lymphocytes (%) (Auto) 25.4 % Monocytes (%) (Auto) 10.6 % Eosinophils (%) (Auto) 5.0 % Basophils (%) (Auto) 0.3 % Neutrophils # (Auto) 4.4 TH/MM3 Lymphocytes # (Auto) 1.9 TH/MM3 Monocytes # (Auto) 0.8 TH/MM3 Eosinophils # (Auto) 0.4 TH/MM3 Basophils # (Auto) 0.0 TH/MM3 CBC Comment DIFF FINAL Differential Comment Sodium Level 136 MEQ/L Potassium Level 2.6 MEQ/L Chloride Level 96 MEQ/L Carbon Dioxide Level 33.8 MEQ/L Anion Gap 6 MEQ/L Blood Urea Nitrogen 29 MG/DL Creatinine 1.71 MG/DL Estimat Glomerular Filtration 42 ML/MIN Rate Random Glucose 94 MG/DL Calcium Level 8.5 MG/DL Total Bilirubin 0.3 MG/DL Aspartate Amino Transf 38 U/L (AST/SGOT) Alanine Aminotransferase 35 U/L (ALT/SGPT) Alkaline Phosphatase 99 U/L Total Protein 7.2 GM/DL Albumin 3.6 GM/DL MDM Medical Decision Making Medical Screen Exam Complete: Yes Emergency Medical Condition: Yes Medical Record Reviewed: Yes Interpretation(s) EKG reveals normal sinus rhythm with a rate of 76. Inverted T waves noted in lead 2, 3, aVF, V4, V5, V6, left ventricular hypertrophy. No significant changes when compared to EKG performed June 16, 2016. Last Impressions Head CT 07/29/16 0000 Signed Impressions: Service Date/Time: Friday, July 29, 2016 04:31 - CONCLUSION: 1. No acute intracranial abnormality. 2. Stable encephalomalacia right frontal lobe. Jacob Manzanares MD Laboratory Tests Test 07/29/16 03:45 White Blood Count 7.5 TH/MM3 Red Blood Count 3.73 MIL/MM3 Hemoglobin 11.0 GM/DL Hematocrit 32.6 % Mean Corpuscular Volume 87.3 FL Mean Corpuscular Hemoglobin 29.5 PG Mean Corpuscular Hemoglobin 33.8 % Concent Red Cell Distribution Width 17.6 % Platelet Count 242 TH/MM3 Mean Platelet Volume 8.8 FL Neutrophils (%) (Auto) 58.7 % Lymphocytes (%) (Auto) 25.4 % Monocytes (%) (Auto) 10.6 % Eosinophils (%) (Auto) 5.0 % Basophils (%) (Auto) 0.3 % Neutrophils # (Auto) 4.4 TH/MM3 Lymphocytes # (Auto) 1.9 TH/MM3 Monocytes # (Auto) 0.8 TH/MM3 Eosinophils # (Auto) 0.4 TH/MM3 Basophils # (Auto) 0.0 TH/MM3 CBC Comment DIFF FINAL Differential Comment Sodium Level 136 MEQ/L Potassium Level 2.6 MEQ/L Chloride Level 96 MEQ/L Carbon Dioxide Level 33.8 MEQ/L Anion Gap 6 MEQ/L Blood Urea Nitrogen 29 MG/DL Creatinine 1.71 MG/DL Estimat Glomerular Filtration 42 ML/MIN Rate Random Glucose 94 MG/DL Calcium Level 8.5 MG/DL Total Bilirubin 0.3 MG/DL Aspartate Amino Transf 38 U/L (AST/SGOT) Alanine Aminotransferase 35 U/L (ALT/SGPT) Alkaline Phosphatase 99 U/L Total Protein 7.2 GM/DL Albumin 3.6 GM/DL Differential Diagnosis Differential diagnosis includes hypertensive urgency, hypertensive emergency, malignant hypertension, intracranial hemorrhage, noncompliance, cardiomyopathy. Narrative Course IV was established, labs are drawn and sent, and the patient was placed on cardiac telemetry monitoring and continuous pulse oximetry monitoring. I reviewed the patient's EMR, he had a nuclear medicine myocardial perfusion scan performed on June 07, 2016 which revealed global hypokinesis with an EF estimated at 20%, high risk. Echocardiogram was performed which revealed an EF of 45-50% with diffuse hypokinesis. The patient was seen by cardiology, Dr. Garcia, catheterization was not performed. The patient denies any current chest pain or shortness of breath, patient has a chronic troponin leak, therefore, troponin was not ordered. However, he does have a headache with elevated blood pressure, therefore, CT of the brain was obtained. The patient was administered labetalol 20 mg intravenously. The patient's blood pressure was coming down after labetalol. Potassium was low at 2.6, this was replaced orally and intravenously. CT the brain is negative. The patient was administered his dose of lisinopril and Norvasc. The patient will be discharged home and advised to follow-up with the [facility]. Diagnosis Primary Impression: Hypertension Qualified Code: I10 - Essential hypertension Additional Impression: Hypokalemia Referrals: [facility] call for appointment Patient Instructions: General Instructions Additional Instructions: Medications as directed. Follow-up with the clinic. Return if symptoms worsen or progress. Med/Other Pt SpecificInfo: Prescription(s) given Scripts Amlodipine (Norvasc)10 Mg Tab10 Mg PO DAILY #30 TAB Ref 2 Prov:Phill Graves MD 07/29/16 Lisinopril 10 Mg Tab10 Mg PO DAILY #30 TAB Ref 2 Prov:Phill Graves MD 07/29/16 Disposition: 01 DISCHARGE HOME Condition: Stable Phill Grvaes MD Jul 29, 2016 03:51
[2016-07-29 04:07] LABS: AUTOMATED NEUTROPHIL # 4.4 TH/MM3 (1.8-7.7); BASOPHIL % 0.3 % (0.0-2.0); EOSINOPHIL # 0.4 TH/MM3 (0-0.4); HEMATOCRIT 32.6 % (39.0-51.0); HEMO FLAGS DIFF FINAL; LYMPH % 25.4 % (9.0-44.0); LYMPHOCYTE # 1.9 TH/MM3 (1.0-4.8); MEAN CELL VOLUME 87.3 FL (80.0-100.0); MEAN CORPUSCULAR HEMOGLOBIN 29.5 PG (27.0-34.0); MEAN CORPUSCULAR HGB CONC 33.8 % (32.0-36.0); MONO % 10.6 % (0.0-8.0); NEUT % 58.7 % (16.0-70.0); PLATELET COUNT 242 TH/MM3 (150-450); RED BLOOD COUNT 3.73 MIL/MM3 (4.50-5.90); RED CELL DISTRIBUTION WIDTH 17.6 % (11.6-17.2); WHITE BLOOD COUNT 7.5 TH/MM3 (4.0-11.0)
[2016-07-29] MEDS ORDERED: DEXAMETHASONE 4 MG TAB PO ONE (04:30)
[2016-07-29 04:37] LABS: ALKALINE PHOSPHATASE 99 U/L (45-117); ALT (GPT) 35 U/L (12-78); ANION GAP 6 MEQ/L (5-15); AST (GOT) 38 U/L (15-37); BICARBONATE 33.8 MEQ/L (21.0-32.0); BLOOD UREA NITROGEN 29 MG/DL (7-18); CHLORIDE 96 MEQ/L (98-107); GLOMERULAR FILTRATION RATE 42 ML/MIN (>89); SODIUM (NA) 136 MEQ/L (136-145); TOTAL BILIRUBIN ADULT 0.3 MG/DL (0.2-1.0)
--- NOTE | 2016-07-29 04:41 | RADRPT ---
EXAM DATE/TIME: 07/29/2016 04:31 [facility] COMPARISON: CT BRAIN W/O CONTRAST, June 06, 2016, 20:43. INDICATIONS : Cephalgia with hypertension. RADIATION DOSE: 33.98 CTDIvol (mGy) MEDICAL HISTORY : Hypertension. SURGICAL HISTORY : None. ENCOUNTER: Initial ACUITY: 3 days PAIN SCALE: 9/10 LOCATION: cranial TECHNIQUE: Multiple contiguous axial images were obtained of the head. Using automated exposure control and adj ustment of the mA and/or kV according to patient size, radiation dose was kept as low as reasonably a chievable to obtain optimal diagnostic quality images. DICOM format image data is available electro nically for review and comparison. FINDINGS: CEREBRUM: Encephalomalacia inferior right frontal lobe again seen. The ventricles are normal for age. No evide nce of midline shift, mass lesion, hemorrhage or acute infarction. No extra-axial fluid collections are seen. POSTERIOR FOSSA: The cerebellum and brainstem are intact. The 4th ventricle is midline. The cerebellopontine angle i s unremarkable. EXTRACRANIAL: The visualized portion of the orbits is intact. SKULL: The calvaria is intact. No evidence of skull fracture. CONCLUSION: 1. No acute intracranial abnormality. 2. Stable encephalomalacia right frontal lobe. Jacob Manzanares MD on July 29, 2016 at 4:38 Board Certified Radiologist. This report was verified electronically.
[2016-07-29 04:43] LABS: POTASSIUM 2.6 MEQ/L (3.5-5.1)
[2016-07-29] MEDS ORDERED: LISINOPRIL 20 MG TAB PO ONE (05:00)
[2016-07-29] MEDS ORDERED: POTASSIUM CHLOR 20 MEQ PREMIX 100 ML IV ONE (05:00)
[2016-07-29] MEDS ORDERED: POTASSIUM CHLORIDE 20 MEQ CONTROLLED RELEASE TAB PO ONE (05:00)
[2016-07-29] MEDS ORDERED: LISI10TA3 PO (05:34)
[2016-07-29] MEDS ORDERED: AMLO10 PO (05:34)
[2016-07-29] MEDS ORDERED: ONDANSETRON HCL 4 MG/2 ML VIAL IV PUSH ONE (05:45)
[2016-07-29] MEDS ORDERED: SODIUM CHLORID 0.9% 500 ML INJ 500 ML IV ONE (05:45)
[2016-07-29] MEDS ORDERED: MORPHINE SULFATE 4 MG/ML INJ IV PUSH ONE (05:45)
--- NOTE | 2016-07-29 12:02 | EKG ---
Date Performed: 07/29/2016 Time Performed: 03:38:19 PTAGE: 56 years EKG: Sinus rhythm POSSIBLE RIGHT ATRIAL ENLARGEMENT LEFT VENTRICULAR HYPERTROPHY AND ST-T CHANGE Since previous tracin g, no significant change noted ABNORMAL ECG PREVIOUS TRACING : 06/16/2016 09.28 DOCTOR: Josiah Moise Interpretating Date/Time 07/29/2016 12:01:36
== END 2016-07-29 09:10 | disposition home or self-care (01) ==
LOC: NEPE 01:53
DX: I10 Essential (primary) hypertension (principal); E87.6 Hypokalemia; R51 Headache; R42 Dizziness and giddiness; I51.7 Cardiomegaly; M19.90 Unspecified osteoarthritis, unspecified site; E78.00 Pure hypercholesterolemia, unspecified; F17.200 Nicotine dependence, unspecified, uncomplicated
CPT/HCPCS: 70450; 80053; 85025; 93005; 96374; 96375; 99285; J2270; J2405; J3480; J7040

== ENCOUNTER 2016-07-29 18:27 | Inpatient (IN) | payer OTHER ==
[~2016-07-29] VITALS: Ht 177.8 cm; Wt 50.6 kg
[~2016-07-29 18:27] MED LIST changes: +AMLO10 PO; +LISI10TA3 PO
[2016-07-29 18:41] VITALS: BP 89/54; PULSE 67; RESP 18; TEMP 97.7; O2SAT 98
[2016-07-29 18:47] VITALS: BP 89/54; PULSE 63; RESP 18; TEMP 97.8; O2SAT 99
--- NOTE | 2016-07-29 18:59 | PD ---
HPI Chief Complaint: Abnormal Results Time Seen by Provider: 18:59 Travel History International Travel<30 days: No Contact w/Intl Traveler<30days: No Traveled to known affect area: No History of Present Illness HPI 56-year-old male came to the emergency room with history of lightheadedness and feeling weak. His blood pressure was low. Patient was seen in the emergency room earlier this morning by the previous ER physician for hypertension and he was given medication to lower the blood pressure. His blood pressure upon arrival was 89 systolic. He is awake and answering questions appropriately right now. He told me that he did not lose consciousness. No history of chest pain, headache or nausea, vomiting or diarrhea. Patient denies of any bloody stool. PFSH Past Medical History Narrative Medical List of his past medical, surgical, social and family history was reviewed from the nursing note. Hx Anticoagulant Therapy: Yes (81mg asa) Arthritis: Yes (GENERALIZED) Autoimmune Disease: No Blood Disorders: No Anxiety: Yes Depression: Yes Heart Rhythm Problems: No Cancer: No Cardiovascular Problems: Yes High Cholesterol: Yes Diabetes: No Diminished Hearing: No Endocrine: No Gastrointestinal Disorders: No Genitourinary: No Hypertension: Yes Immune Disorder: No Implanted Vascular Access Dvce: Yes Musculoskeletal: Yes Neurologic: No Psychiatric: Yes Reproductive: No Respiratory: Yes Immunizations Current: No Thyroid Disease: No Tetanus Vaccination: > 5 Years Past Surgical History 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 Reported Meds & Prescriptions Reported Meds & Active Scripts Active Norvasc (Amlodipine Besylate) 10 Mg Tab 10 Mg PO DAILY Lisinopril 10 Mg Tab 10 Mg PO DAILY Atorvastatin (Atorvastatin Calcium) 20 Mg Tab 20 Mg PO HS Klor-Con 10 (Potassium Chloride) 10 Meq Tab 10 Meq PO DAILY Lisinopril 5 Mg Tab 5 Mg PO DAILY Furosemide 20 Mg Tab 20 Mg PO BID Coreg (Carvedilol) 3.125 Mg Tab 3.125 Mg PO Q12HR Norvasc (Amlodipine Besylate) 5 Mg Tab 5 Mg PO DAILY Aspirin EC (Aspirin) 81 Mg Tabdr 81 Mg PO DAILY Narrative Medication List of her home medications reviewed from the nursing note. Review of Systems Except as stated in HPI: all other systems reviewed are Neg Physical Exam Narrative GENERAL: Awake, alert, emaciated, moderate distress SKIN: Focused skin assessment warm/dry. HEAD: Atraumatic. Normocephalic. EYES: Pupils equal and round. No scleral icterus. No injection or drainage. ENT: No nasal bleeding or discharge. Dry mucous membrane and coated tongue NECK: Trachea midline. No JVD. CARDIOVASCULAR: Regular rate and rhythm. No murmur appreciated. RESPIRATORY: No accessory muscle use. Clear to auscultation. Breath sounds equal bilaterally. GASTROINTESTINAL: Abdomen soft, non-tender, nondistended. Hepatic and splenic margins not palpable. MUSCULOSKELETAL: No obvious deformities. No clubbing. No cyanosis. No edema. NEUROLOGICAL: Awake and alert. No obvious cranial nerve deficits. Motor grossly within normal limits. Normal speech. PSYCHIATRIC: Appropriate mood and affect; insight and judgment normal. Data Data Last Documented VS Vital Signs Date Time Temp Pulse Resp B/P Pulse Ox O2 Delivery O2 Flow Rate FiO2 07/29/16 18:47 97.8 63 18 89/54 99 Room Air Orders Electrocardiogram (07/29/16 19:01) Basic Metabolic Panel (Bmp) (07/29/16 19:01) Ckmb (Isoenzyme) Profile (07/29/16 19:01) Complete Blood Count With Diff (07/29/16 19:) Magnesium (Mg) (07/29/16 19:01) Prothrombin Time / Inr (Pt) (07/29/16 19:01) Act Partial Throm Time (Ptt) (07/29/16 19:01) Troponin I (07/29/16 19:01) Chest, Single Ap (07/29/16 19:01) Ecg Monitoring (07/29/16 19:01) Bilateral Bp Monitoring (07/29/16 19:01) Iv Access Insert/Monitor (07/29/16 19:01) Oximetry (07/29/16 19:01) Oxygen Administration (07/29/16 19:01) Sodium Chloride 0.9% Flush (Ns Flush) (6/24/17 19:15) Sodium Chlor 0.9% 1000 Ml Inj (Ns 1000 M (07/29/16 19:15) Sodium Chlor 0.9% 1000 Ml Inj (Ns 1000 M (07/29/16 19:15) CKMB (07/29/16 19:46) CKMB% (07/29/16 19:46) Sodium Chlor 0.9% 1000 Ml Inj (Ns 1000 M (07/29/16 21:00) Admit Order (Ed Use Only) (07/29/16 21:05) Labs Laboratory Tests Test 07/29/16 19:46 White Blood Count 7.0 TH/MM3 Red Blood Count 3.66 MIL/MM3 Hemoglobin 10.9 GM/DL Hematocrit 32.4 % Mean Corpuscular Volume 88.4 FL Mean Corpuscular Hemoglobin 29.8 PG Mean Corpuscular Hemoglobin 33.7 % Concent Red Cell Distribution Width 17.1 % Platelet Count 225 TH/MM3 Mean Platelet Volume 8.6 FL Neutrophils (%) (Auto) 68.5 % Lymphocytes (%) (Auto) 18.5 % Monocytes (%) (Auto) 9.0 % Eosinophils (%) (Auto) 2.9 % Basophils (%) (Auto) 1.1 % Neutrophils # (Auto) 4.8 TH/MM3 Lymphocytes # (Auto) 1.3 TH/MM3 Monocytes # (Auto) 0.6 TH/MM3 Eosinophils # (Auto) 0.2 TH/MM3 Basophils # (Auto) 0.1 TH/MM3 CBC Comment DIFF FINAL Differential Comment Prothrombin Time 11.0 SEC Prothromb Time International 1.0 RATIO Ratio Activated Partial 23.5 SEC Thromboplast Time Sodium Level 141 MEQ/L Potassium Level 3.5 MEQ/L Chloride Level 105 MEQ/L Carbon Dioxide Level 29.8 MEQ/L Anion Gap 6 MEQ/L Blood Urea Nitrogen 28 MG/DL Creatinine 2.25 MG/DL Estimat Glomerular Filtration 30 ML/MIN Rate Random Glucose 90 MG/DL Calcium Level 8.2 MG/DL Magnesium Level 2.3 MG/DL Total Creatine Kinase 331 U/L Creatine Kinase MB 4.2 NG/ML Creatine Kinase MB % 1.3 % Troponin I 0.13 NG/ML MDM Medical Decision Making Medical Screen Exam Complete: Yes Emergency Medical Condition: Yes Medical Record Reviewed: Yes Interpretation(s) Twelve-lead EKG was reviewed by me. Normal sinus rhythm, normal axis, significant diffuse ST depression and T wave inversions, LVH, unchanged from previous EKG. Heart rate of 60 bpm. Differential Diagnosis ACS, medication induced hypotension, dehydration Narrative Course 8:23 PM CBC is back and within normal limit. Awaiting for the chemistry, troponin. Patient is getting 1 L of IV fluid bolus. I'll reassess him in a bit. 8:51 PM blood test results are back. Patient's renal function has worsened than what it was this morning. His troponin is elevated. However upon looking back patient has had elevated troponin in the past and was seen by cardiology one month ago and the troponin elevation was thought to be from uncontrolled hypertension. Currently patient does not have any chest pain. I would like to admit him for his worsening renal function secondary to dehydration and possibly heat exhaustion. Patient says he is homeless and he has been out walking the whole day. He would go occasionally to [employer] to drink some water but when I initially saw him he appeared to be quite dehydrated. His blood pressure has improved at this point. I also remember seeing this patient one month ago for leg claudication syndrome. He had history of severe atherosclerotic disease of his leg arteries. He was supposed to be followed up by the vascular surgeon Dr. Nettles but patient says he never followed up because his office called and canceled it. Now he is supposed to see them in December. Awaiting for the hospitalist to call back. Critical Care Narrative Aggregate critical care time was 30 minutes. Time to perform other separately billable procedures was not included in the critical care time. My time did not include minutes spent treating any other patients simultaneously or on activities that did not directly contribute to the patient's treatment. The services I provided to this patient were to treat and/or prevent clinically significant deterioration that could result in: Hypotension, fluid resuscitation I provided critical care services requiring my management, as noted below: Chart data review, documentation time, medication orders and management, vital sign assessments/reviewing monitor data, ordering and reviewing lab tests, ordering and interpreting/reviewing x-rays and diagnostic studies, care of the patient and discussion of the patient with the admitting physicians Procedures EKG Prior to Arrival: No Diagnosis Primary Impression: Hypotension Qualified Code: I95.9 - Hypotension, unspecified hypotension type Additional Impressions: Dehydration Renal failure Qualified Code: N17.9 - Acute renal failure, unspecified acute renal failure type chronic troponin elevation Admitting Information Admitting Physician Requests: Admit Darcy Villalpando MD Jul 29, 2016 18:59
[2016-07-29] MEDS ORDERED: SODIUM CHLOR 0.9% 1000 ML INJ 1,000 ML IV ONE ×3 (19:15→21:00)
[2016-07-29] MEDS ORDERED: SODIUM CHLORIDE 0.9% FLUSH 10 ML FLUSH IVF PRN (19:15)
--- NOTE | 2016-07-29 19:39 | RADRPT ---
EXAM DATE/TIME: 07/29/2016 19:26 [facility] COMPARISON: CHEST SINGLE AP, June 06, 2016, 18:43. INDICATIONS : Chest pain. MEDICAL HISTORY : None. SURGICAL HISTORY : None. ENCOUNTER: Initial ACUITY: 1 day PAIN SCORE: 5/10 LOCATION: Bilateral chest FINDINGS: Chronic scarring and postsurgical changes are noted within the right apex. Left apical emphysema is also noted. The heart is stable. The pulmonary vascular pattern is normal. The lungs are clear. CONCLUSION: 1. No significant change compared to 06/06/2016. 2. No acute focal pulmonary infiltrate or pulmonary vascular congestion. Joon Holguin MD on July 29, 2016 at 19:34 Board Certified Radiologist. This report was verified electronically.
[2016-07-29 20:13] LABS: AUTOMATED NEUTROPHIL # 4.8 TH/MM3 (1.8-7.7); BASOPHIL # 0.1 TH/MM3 (0-0.2); BASOPHIL % 1.1 % (0.0-2.0); EOSINOPHIL # 0.2 TH/MM3 (0-0.4); EOSINOPHIL % 2.9 % (0.0-4.0); HEMATOCRIT 32.4 % (39.0-51.0); HEMO FLAGS DIFF FINAL; LYMPH % 18.5 % (9.0-44.0); LYMPHOCYTE # 1.3 TH/MM3 (1.0-4.8); MEAN CELL VOLUME 88.4 FL (80.0-100.0); MEAN CORPUSCULAR HEMOGLOBIN 29.8 PG (27.0-34.0); MEAN CORPUSCULAR HGB CONC 33.7 % (32.0-36.0); NEUT % 68.5 % (16.0-70.0); PLATELET COUNT 225 TH/MM3 (150-450); RED BLOOD COUNT 3.66 MIL/MM3 (4.50-5.90); RED CELL DISTRIBUTION WIDTH 17.1 % (11.6-17.2)
[2016-07-29 20:21] LABS: APTT (PATIENT) 23.5 SEC (24.3-30.1)
[2016-07-29 20:39] LABS: BICARBONATE 29.8 MEQ/L (21.0-32.0); MAGNESIUM 2.3 MG/DL (1.5-2.5); POTASSIUM 3.5 MEQ/L (3.5-5.1)
[2016-07-29 20:54] LABS: CKMB 4.2 NG/ML (0.5-3.6)
[2016-07-29] MEDS ORDERED: SENNOSIDES 8.6 MG TAB PO PRN (21:15)
[2016-07-29] MEDS ORDERED: BISACODYL 10 MG SUPP RECTAL PRN (21:15)
[2016-07-29] MEDS ORDERED: MAGNESIUM HYDROXIDE SUSP 30 ML CUP PO PRN (21:15)
[2016-07-29] MEDS ORDERED: LORazepam 2 MG TAB PO PRN (21:15)
[2016-07-29] MEDS ORDERED: FLUMAZENIL 0.5 MG/5 ML VIAL IV PUSH PRN (21:15)
[2016-07-29] MEDS ORDERED: LORazepam 2 MG/ML VIAL IV PUSH PRN ×3 (21:15)
[2016-07-29] MEDS ORDERED: MORPHINE SULFATE 4 MG/ML INJ IV PRN (21:15)
[2016-07-29] MEDS ORDERED: ONDANSETRON HCL 4 MG/2 ML VIAL IVP PRN (21:15)
[2016-07-29] MEDS ORDERED: ACETAMINOPHEN 325 MG TAB PO PRN (21:15)
[2016-07-29] MEDS ORDERED: LACTULOSE SYRUP 20 GM/30 ML CUP PO PRN (21:15)
[2016-07-29] MEDS ORDERED: LORazepam 1 MG TAB PO PRN (21:15)
[2016-07-29] MEDS ORDERED: HALOPERIDOL LACTATE 5 MG/ML AMP IM PRN (21:15)
--- NOTE | 2016-07-29 21:16 | HHI.HP ---
[facility] No Primary Care Physician Admission Diagnosis kam, dehydration, renal failure, chronic elevation troponin Diagnoses: (1) Hypotension Diagnosis: Principal (2) Elevated troponin Diagnosis: Principal (3) Renal insufficiency Diagnosis: Principal (4) Alcohol abuse Diagnosis: Principal (5) Tobacco abuse Diagnosis: Principal Travel History International Travel<30 Days: No Contact w/Intl Traveler <30 Da: No Traveled to Known Affected Are: No History of Present Illness This is a 56-year-old Homeless male with a PMH of Anxiety, Depression, HTN, Hyperlipidemia, Alcohol Abuse and Tobacco Abuse who was brought to the ER by EMS secondary to episode of dizziness and hypotension. Seen in ER on thr morning of 07/29/16 for c/o headache and elevated BP 205/96, HR 78, s/p treatment in ER w/ successful control of BP and d/c'd w/ Norvasc and Lisinopril , has not filled prescriptions yet. Today, was out walking and felt sudden onset of dizziness. Per EMS, BP 80's systolic. On arrival, BP 89/54, HR 67, O2 sat 98% on RA, Afebrile. S/p IVF w/ improvement in BP. CBC unremarkable. Creatinine 2.25, previously 1.71 on 07/29/16. Troponin 0.13, previously 0.55 on 06/07/16. CPK 331. CXR with no acute findings. Review of Systems Except as stated in HPI: all other systems reviewed are Neg ROS: 14 point review of systems otherwise negative. Past Family Social History Past Medical History PMH: Anxiety, Depression, HTN, Hyperlipidemia, Alcohol Abuse and Tobacco Abuse Past Surgical History PAST SURGICAL HISTORY: Right Ankle Surgery, Chest Tube Insertion, Retinal Detachment Allergies: Coded Allergies: No Known Allergies (Verified , 07/29/16) Family History PAST FAMILY HISTORY: Reviewed. No h/o DM or CAD Social History PAST SOCIAL HISTORY: Positive for Alcohol Abuse. Smokes 1ppd. Negative for drugs. Physical Exam Vital Signs Vital Signs Date Time Temp Pulse Resp B/P Pulse Ox O2 Delivery O2 Flow Rate FiO2 6/24/17 18:47 97.8 63 18 89/54 99 Room Air 07/29/16 18:47 63 18 99 Room Air 07/29/16 18:41 97.7 67 18 89/54 98 Physical Exam PE: GENERAL: Middle-aged male in no acute distress, disheveled. HEENT: PERRLA, EOMI. No scleral icterus or conjunctival pallor. No lid lag or facial droop. Dry mucous membranes CARDIOVASCULAR: Regular rate and rhythm. No obvious murmurs to auscultation. No chest tenderness to palpation. RESPIRATORY: No obvious rhonchi or wheezing. Clear to auscultation. Breath sounds equal bilaterally. GASTROINTESTINAL: Abdomen soft, non-tender, nondistended. BS normal. MUSCULOSKELETAL: Extremities without clubbing, cyanosis, or edema. No obvious deformities. NEUROLOGICAL: Awake, alert and oriented x4. No focal neurologic deficits. Moving both upper and lower extremities spontaneously. Laboratory Laboratory Tests Test 07/29/16 19:46 White Blood Count 7.0 Red Blood Count 3.66 Hemoglobin 10.9 Hematocrit 32.4 Mean Corpuscular Volume 88.4 Mean Corpuscular Hemoglobin 29.8 Mean Corpuscular Hemoglobin 33.7 Concent Red Cell Distribution Width 17.1 Platelet Count 225 Mean Platelet Volume 8.6 Neutrophils (%) (Auto) 68.5 Lymphocytes (%) (Auto) 18.5 Monocytes (%) (Auto) 9.0 Eosinophils (%) (Auto) 2.9 Basophils (%) (Auto) 1.1 Neutrophils # (Auto) 4.8 Lymphocytes # (Auto) 1.3 Monocytes # (Auto) 0.6 Eosinophils # (Auto) 0.2 Basophils # (Auto) 0.1 CBC Comment DIFF FINAL Differential Comment Prothrombin Time 11.0 Prothromb Time International 1.0 Ratio Activated Partial 23.5 Thromboplast Time Sodium Level 141 Potassium Level 3.5 Chloride Level 105 Carbon Dioxide Level 29.8 Anion Gap 6 Blood Urea Nitrogen 28 Creatinine 2.25 Estimat Glomerular Filtration 30 Rate Random Glucose 90 Calcium Level 8.2 Magnesium Level 2.3 Total Creatine Kinase 331 Creatine Kinase MB 4.2 Creatine Kinase MB % 1.3 Troponin I 0.13 Result Diagram: 07/29/16194507/29/161945 Assessment and Plan Problem List: (1) Hypotension ICD Code: I95.9 Status: Acute (2) Renal insufficiency ICD Code: N28.9 Status: Acute (3) Elevated troponin ICD Code: R79.89 Status: Acute (4) Alcohol abuse ICD Code: F10.10 Status: Chronic (5) Tobacco abuse ICD Code: Z72.0 Status: Chronic Assessment and Plan A/P: 1. Hypotension: Likely secondary to dehydration. Recent eval in ER 07/29/16 for uncontrolled HTN, s/p treatment in ER and d/c'd w/ Norvasc/Lisinopril, now w / hypotension, BP 80's systolic. S/p 2L IVF w/ improvement, BP currently 122/58 , HR 57. Will monitor, hold antihypertensives for now until stabilized. 2. Renal Insufficiency: Acute on chronic. Creatinine 2.25, previously 1.71 on 07/29/16. CPF mildly elevated. IVF for hydration. Repeat labs in am. 3. Elevated Trop: Chronic. Trop 0.13, previously 0.55 on last admit 06/07/16, s /p eval by Cardiology, Nuc Stress 06/07/16 negative for ischemia. Will monitor, check serial enzymes for trend. Resume Statin, ASA. Hold B-terry in light of hypotension and bradycardia. 4. Alcohol Abuse: CIWA, Seizure Precautions, MVT/Thiamine/Folate replacement. 5. Tobacco Abuse: Ativan prn if needed. No NicoDerm to avoid vasoconstriction. 6. Social work for d/c planning as needed. 7. Case discussed at length w/ ER physician. Problem Qualifiers (1) Hypotension: Qualified Code: I95.9 - Hypotension, unspecified hypotension type Nancy Macias MD Jul 29, 2016 21:16
[2016-07-29] MEDS: SODIUM CHLOR 0.9% 1000 ML INJ 1,000 ML IV SCH (22:58)
[2016-07-29 23:07] VITALS: BP 122/58; PULSE 60; RESP 18; O2SAT 100
[2016-07-29 23:27] VITALS: BP 122/58; PULSE 57; RESP 18; O2SAT 98
[2016-07-30] VITALS (26 sets, daily range): BP systolic 133–164; BP diastolic 60–100; PULSE 57–87; RESP 19–22; TEMP 97.8–98.7; O2SAT 91–96
[2016-07-30] MEDS: SODIUM CHLOR 0.9% 1000 ML INJ 1,000 ML IV SCH ×4 (03:52→18:31)
[2016-07-30 08:31] LABS: AUTOMATED NEUTROPHIL # 4.9 TH/MM3 (1.8-7.7); BASOPHIL # 0.1 TH/MM3 (0-0.2); BASOPHIL % 0.8 % (0.0-2.0); EOSINOPHIL # 0.2 TH/MM3 (0-0.4); EOSINOPHIL % 3.2 % (0.0-4.0); HEMATOCRIT 30.8 % (39.0-51.0); LYMPH % 18.8 % (9.0-44.0); LYMPHOCYTE # 1.3 TH/MM3 (1.0-4.8); MEAN CELL VOLUME 89.9 FL (80.0-100.0); MEAN CORPUSCULAR HEMOGLOBIN 29.5 PG (27.0-34.0); MEAN CORPUSCULAR HGB CONC 32.8 % (32.0-36.0); MONO % 8.5 % (0.0-8.0); NEUT % 68.7 % (16.0-70.0); PLATELET COUNT 205 TH/MM3 (150-450); RED BLOOD COUNT 3.43 MIL/MM3 (4.50-5.90); RED CELL DISTRIBUTION WIDTH 17.8 % (11.6-17.2); WHITE BLOOD COUNT 7.1 TH/MM3 (4.0-11.0)
[2016-07-30 08:32] LABS: HEMO FLAGS AUTO DIFF
[2016-07-30] MEDS: ASPIRIN EC 81 MG TABEC PO SCH (08:38)
[2016-07-30] MEDS: MULTIVITAMINS/MINERALS THERAPEUTIC TAB PO SCH (08:39)
[2016-07-30] MEDS: FOLIC ACID 1 MG TAB PO SCH (08:39)
[2016-07-30] MEDS: THIAMINE HCL 100 MG TAB PO SCH (08:39)
[2016-07-30] MEDS: SODIUM CHLORIDE 0.9% FLUSH 10 ML FLUSH IV FLUSH SCH ×2 (08:39→20:36)
[2016-07-30] MEDS: DOCUSATE SODIUM 50 MG/SENNA 8.6 MG TAB PO SCH ×2 (08:39→20:36)
[2016-07-30 09:19] LABS: ALKALINE PHOSPHATASE 65 U/L (45-117); ALT (GPT) 23 U/L (12-78); ANION GAP 8 MEQ/L (5-15); AST (GOT) 23 U/L (15-37); BICARBONATE 25.5 MEQ/L (21.0-32.0); BLOOD UREA NITROGEN 22 MG/DL (7-18); CHLORIDE 113 MEQ/L (98-107); GLOMERULAR FILTRATION RATE 45 ML/MIN (>89); POTASSIUM 3.3 MEQ/L (3.5-5.1); SODIUM (NA) 146 MEQ/L (136-145); TOTAL BILIRUBIN ADULT 0.2 MG/DL (0.2-1.0)
[2016-07-30 10:00] LABS: OVALOCYTES 1+ (NORMAL); SCAN/DIFF AUTO DIFF CONFIRMED
--- NOTE | 2016-07-30 11:05 | HHI.PR ---
Subjective Remarks This is a 56-year-old Homeless male with a PMH of Anxiety, Depression, HTN, Hyperlipidemia, Alcohol Abuse and Tobacco Abuse who was brought to the ER by EMS secondary to episode of dizziness and hypotension. BP 89/54 mm Hg. Creatinine 2.25, previously 1.71 on 07/29/16. Troponin 0.13, previously 0.55 on 06/07/16. CPK 331. CXR with no acute findings. Seen in his bedroom in the presence of nurse Miss Lopez she states the patient early complaint if difficulty to move his left leg but now is better. he had a CT of the brain performed in ER and did not found pathology, stable Encephalomalacia. has Hypokalemia could be the reason for his symptoms will replace electrolytes and follow. Objective Vital Signs Date Time Temp Pulse Resp B/P Pulse Ox O2 Delivery O2 Flow Rate FiO2 07/30/16 09:00 61 07/30/16 08:00 65 07/30/16 07:15 97.8 69 20 154/77 92 07/30/16 07:00 68 07/30/16 06:05 62 07/30/16 05:08 64 07/30/16 04:38 62 07/30/16 03:35 57 07/30/16 03:19 98.7 64 133/60 94 07/30/16 01:43 65 07/30/16 00:43 98.7 68 145/79 95 07/29/16 23:27 57 18 122/58 98 Room Air 07/29/16 23:07 60 18 122/58 100 Room Air 07/29/16 18:47 97.8 63 18 89/54 99 Room Air 07/29/16 18:47 63 18 99 Room Air 07/29/16 18:41 97.7 67 18 89/54 98 I/O 07/29/16 07/29/16 07/29/16 07/30/16 07/30/16 07/30/16 07:00 15:00 23:00 07:00 15:00 23:00 Intake Total 730 ml Output Total 375 ml Balance 355 ml Intake Oral 730 ml Output Urine Total 375 ml # Voids 1 Result Diagram: 07/30/16 0808 07/30/16 0808 Imaging Last Impressions Chest X-Ray 07/29/16 190 Signed Impressions: Service Date/Time: Friday, July 29, 2016 19:26 - CONCLUSION: 1. No significant change compared to 06/06/2016. 2. No acute focal pulmonary infiltrate or pulmonary vascular congestion. Joon Holguin MD Procedures None Other Results Laboratory Tests Test 07/29/16 07/30/16 19:46 08:08 Prothrombin Time 11.0 SEC Prothromb Time International 1.0 RATIO Ratio Activated Partial 23.5 SEC Thromboplast Time Magnesium Level 2.3 MG/DL Total Creatine Kinase 331 U/L Creatine Kinase MB 4.2 NG/ML Creatine Kinase MB % 1.3 % White Blood Count 7.1 TH/MM3 Red Blood Count 3.43 MIL/MM3 Hemoglobin 10.1 GM/DL Hematocrit 30.8 % Mean Corpuscular Volume 89.9 FL Mean Corpuscular Hemoglobin 29.5 PG Mean Corpuscular Hemoglobin 32.8 % Concent Red Cell Distribution Width 17.8 % Platelet Count 205 TH/MM3 Mean Platelet Volume 8.4 FL Neutrophils (%) (Auto) 68.7 % Lymphocytes (%) (Auto) 18.8 % Monocytes (%) (Auto) 8.5 % Eosinophils (%) (Auto) 3.2 % Basophils (%) (Auto) 0.8 % Neutrophils # (Auto) 4.9 TH/MM3 Lymphocytes # (Auto) 1.3 TH/MM3 Monocytes # (Auto) 0.6 TH/MM3 Eosinophils # (Auto) 0.2 TH/MM3 Basophils # (Auto) 0.1 TH/MM3 CBC Comment AUTO DIFF Differential Comment AUTO DIFF CONFIRMED Ovalocytes 1+ Sodium Level 146 MEQ/L Potassium Level 3.3 MEQ/L Chloride Level 113 MEQ/L Carbon Dioxide Level 25.5 MEQ/L Anion Gap 8 MEQ/L Blood Urea Nitrogen 22 MG/DL Creatinine 1.59 MG/DL Estimat Glomerular Filtration 45 ML/MIN Rate Random Glucose 84 MG/DL Calcium Level 7.8 MG/DL Total Bilirubin 0.2 MG/DL Aspartate Amino Transf 23 U/L (AST/SGOT) Alanine Aminotransferase 23 U/L (ALT/SGPT) Alkaline Phosphatase 65 U/L Troponin I 0.12 NG/ML Total Protein 5.3 GM/DL Albumin 2.6 GM/DL Objective Remarks GENERAL: no acute distress, HEENT: PERRLA, EOMI. No scleral icterus or conjunctival pallor. No lid lag or facial droop. Dry mucous membranes CARDIOVASCULAR: Regular rate and rhythm. No obvious murmurs to auscultation. No chest tenderness to palpation. RESPIRATORY: No obvious rhonchi or wheezing. Clear to auscultation. Breath sounds equal bilaterally. GASTROINTESTINAL: Abdomen soft, non-tender, nondistended. BS normal. MUSCULOSKELETAL: Extremities without clubbing, cyanosis, or edema. No obvious deformities. NEUROLOGICAL: Awake, alert and oriented x4. No focal neurologic deficits. Moving both upper and lower extremities spontaneously. Medications and IVs Current Medications Medications (Trade) Dose Ordered Sig/Mohit Route Start Time Stop Time Status Last Admin (Folate) 1 mg DAILY PO 07/30/16 09:00 08/04/16 08:59 07/30/16 08:39 (Vitamin B1) 100 mg DAILY PO 07/30/16 09:00 07/30/16 08:39 (Theragran M Tab) 1 tab DAILY PO 07/30/16 09:00 08/04/16 08:59 07/30/16 08:39 (Romazicon Inj) 0.2 mg Q1M PRN IV PUSH 07/29/16 21:15 (Ativan) 1 mg Q4H PRN PO 07/29/16 21:15 (Ativan Inj) 1 mg Q4H PRN IV PUSH 07/29/16 21:15 (Ativan) 2 mg Q2H PRN PO 07/29/16 21:15 (Ativan Inj) 2 mg Q2H PRN IV PUSH 07/29/16 21:15 (Ativan Inj) 2 mg Q1H PRN IV PUSH 07/29/16 21:15 (Ativan Inj) 2 mg Q15M PRN IV PUSH 07/29/16 21:15 Haloperidol Lactate 2 mg 2 mg Q15M PRN IM 07/29/16 21:15 (NS 1000 ml Inj) 1,000 ml @ 150 mls/hr Q6H40M IV 07/29/16 21:12 07/30/16 10:32 (NS Flush) 2 ml UNSCH PRN IV FLUSH 07/29/16 21:15 (NS Flush) 2 ml BID IV FLUSH 07/30/16 09:00 (Zofran Inj) 4 mg Q6H PRN IVP 07/29/16 21:15 (Tylenol) 650 mg Q6H PRN PO 07/29/16 21:15 (Camas 5-325 Mg) 1 tab Q4H PRN PO 07/29/16 21:15 (Morphine Inj) 2 mg Q3H PRN IV 07/29/16 21:15 (Kajal-Colace) 1 tab BID PO 07/30/16 09:00 07/30/16 08:39 (Milk Of Magnesia Liq) 30 ml Q12H PRN PO 07/29/16 21:15 (Senokot) 17.2 mg Q12H PRN PO 07/29/16 21:15 (Dulcolax Supp) 10 mg DAILY PRN RECTAL 07/29/16 21:15 (Lactulose Liq) 30 ml DAILY PRN PO 07/29/16 21:15 (Ecotrin Ec) 81 mg DAILY PO 07/30/16 09:00 07/30/16 08:38 (Lipitor) 20 mg HS PO 07/30/16 21:00 A/P Assessment and Plan 1. Hypotension: Likely secondary to dehydration. Recent eval in ER 07/29/16 for uncontrolled HTN, s/p treatment in ER and d/c'd w/ Norvasc/Lisinopril, now w/ hypotension, BP 80's systolic. S/ p 2L IVF w/ improvement. at this time stable improved Hypotension continue present IV fluids at 125 ml per hour. 2. Acute Kidney Injury : Acute on chronic. Creatinine 2.25, previously 1.71 on 07/29/16. at this time Creatinine 1.59 3. Elevated Trop: Chronic. Trop 0.13, previously 0.55 on last admit 06/07/16, s /p eval by Cardiology, Nuc Stress 06/07/16 negative for ischemia. Will monitor, check serial enzymes for trend. Resume Statin, ASA. Hold antihypertensives and resume once stable again and off IV fluids. 4. Alcohol Abuse: CIWA, Seizure Precautions, MVT/Thiamine/Folate replacement. 5. Tobacco Abuse: Ativan prn if needed. No NicoDerm to avoid vasoconstriction. strongly recommended to stop smoking. 6. Hypokalemia 3.3 given 80 meq of potassium chloride and follow. Social work for d/c planning as needed. Austin Adhikari MD Jul 30, 2016 11:05
--- NOTE | 2016-07-30 12:11 | EKG ---
Date Performed: 07/29/2016 Time Performed: 18:54:44 PTAGE: 56 years EKG: Sinus rhythm LEFT VENTRICULAR HYPERTROPHY AND ST-T CHANGE Since previous tracing, no significant change noted ABN ORMAL ECG PREVIOUS TRACING : 07/29/2016 03.38 DOCTOR: Josiah Moise Interpretating Date/Time 07/30/2016 12:10:50
[2016-07-30] MEDS ORDERED: POTASSIUM CHLORIDE 20 MEQ CONTROLLED RELEASE TAB PO ONE ×2 (15:00→17:00)
[2016-07-30] MEDS: ACETAMINOPHEN/HYDROcodone 325 MG/5 MG TAB PO PRN (16:38)
[2016-07-30] MEDS: ATORVASTATIN 20 MG TAB PO SCH (20:37)
[2016-07-30] MEDS: HEPARIN SODIUM - SQ 10,000 UNITS/ML VIAL SQ SCH (20:37)
[2016-07-30] MEDS: LORazepam 2 MG/ML VIAL IV PUSH PRN (21:50)
[2016-07-31] VITALS (22 sets, daily range): BP systolic 128–248; BP diastolic 60–100; PULSE 68–131; RESP 19–40; TEMP 98–98.9; O2SAT 75–100
[2016-07-31] MEDS: LORazepam 2 MG/ML VIAL IV PUSH PRN ×3 (01:02→07:15)
[2016-07-31 07:43] LABS: BICARBONATE 24.8 MEQ/L (21.0-32.0); POTASSIUM 4.3 MEQ/L (3.5-5.1)
[2016-07-31] MEDS ORDERED: POTASSIUM CHLORIDE 25 MEQ EFFERVESCENT TAB PO PRN (08:00)
[2016-07-31] MEDS ORDERED: POTASSIUM CHLOR 20 MEQ PREMIX 100 ML IV PRN (08:00)
[2016-07-31] MEDS ORDERED: BUMETANIDE INJ 1 MG/4 ML VIAL IV PUSH ONE (08:00)
[2016-07-31] MEDS ORDERED: POTASSIUM PHOSPHATE MONOBASIC 500 MG TAB PO/TUBE PRN (08:00)
[2016-07-31] MEDS ORDERED: MAGNESIUM SULFATE INJ 2 GM in SODIUM CHLORIDE 0.9% INJ 96 ML IV PRN (08:00)
[2016-07-31] MEDS ORDERED: DEXTROSE 50% IN WATER 50 ML VIAL(D50) IV PRN (08:00)
[2016-07-31] MEDS ORDERED: GLUCAGON 1 MG/ML VIAL OTHER PRN (08:00)
[2016-07-31] MEDS ORDERED: MAGNESIUM SULFATE INJ 4 GM in SODIUM CHLORIDE 0.9% INJ 92 ML IV PRN (08:00)
[2016-07-31] MEDS ORDERED: POTASSIUM PHOSPHATE MONOBASIC 500 MG TAB PO PRN (08:00)
[2016-07-31] MEDS ORDERED: MAGNESIUM OXIDE 400 MG TAB PO PRN (08:00)
[2016-07-31] MEDS ORDERED: POTASSIUM PHOSPHATE INJ 30 MMOL in SODIUM CHLOR 0.9% 250 ML INJ 250 ML IV PRN (08:00)
[2016-07-31] MEDS ORDERED: PROPOFOL 1000 MG/100 ML INJ 100 ML IV SCH (08:00)
[2016-07-31] MEDS ORDERED: POTASSIUM CHLOR 40 MEQ PREMIX 100 ML IV PRN ×2 (08:00)
[2016-07-31] MEDS ORDERED: SODIUM PHOSPHATE INJ 30 MMOL in SODIUM CHLOR 0.9% 250 ML INJ 240 ML IV PRN (08:00)
[2016-07-31] MEDS ORDERED: CHLORHEXIDINE GLUCONATE 2 % 1 PACK (2 CLOTHS)(extra cloths) TOPICAL PRN (08:15)
[2016-07-31 08:19] LABS: BLOOD GAS BASE EXCESS -6.9 mmol/L (-2-2); BLOOD GAS CARBOXYHEMOGLOBIN 1.1 % (0-4); BLOOD GAS HCO3 20 mmol/L (22-26); BLOOD GAS METHEMOGLOBIN 1.4 % (0-2); BLOOD GAS O2 HGB SATURATION 96 % (90-100); BLOOD GAS OXYGEN CONTENT 14.4 Vol % (12.0-20.0); BLOOD GAS PCO2 54 mmHg (38-42); BLOOD GAS PO2 136 mmHg (61-120); BLOOD GAS TOTAL HGB 10.5 G/DL (12.0-16.0); CRITICAL VALUE YES; FIO2 100 %; OXYGEN DEVICE VENTILATOR; TEMP CORR TO 98.6; VENT SETTINGS SEE COMMENTS
[2016-07-31 08:20] LABS: DRAW SITE LT RADIAL; NUMBER OF ARTERIAL PUNCTURES 1; STAT NO; ULNAR PULSE PRESENT
[2016-07-31] MEDS: PANTOPRAZOLE SODIUM 40 MG VIAL IV PUSH SCH (08:22)
[2016-07-31] MEDS: SODIUM CHLORIDE 0.9% FLUSH 10 ML FLUSH IV FLUSH PRN (08:23)
[2016-07-31] MEDS: ASPIRIN EC 81 MG TABEC PO SCH ×2 (08:23→11:30)
[2016-07-31] MEDS: FOLIC ACID 1 MG TAB PO SCH (08:23)
[2016-07-31] MEDS: SODIUM CHLORIDE 0.9% FLUSH 10 ML FLUSH IV FLUSH SCH ×2 (08:23→19:51)
[2016-07-31] MEDS: HEPARIN SODIUM - SQ 10,000 UNITS/ML VIAL SQ SCH ×2 (08:23→19:51)
[2016-07-31] MEDS: MULTIVITAMINS/MINERALS THERAPEUTIC TAB PO SCH (08:23)
[2016-07-31] MEDS: THIAMINE HCL 100 MG TAB PO SCH (08:23)
[2016-07-31] MEDS: DOCUSATE SODIUM 50 MG/SENNA 8.6 MG TAB PO SCH ×2 (08:23→19:51)
[2016-07-31] MEDS: CHLORHEXIDINE 0.12% (ORAL KIT) 15 ML CUP MT SCH ×2 (08:24→19:50)
[2016-07-31] MEDS: fentaNYL DRIP 250 ML IV SCH (08:26)
--- NOTE | 2016-07-31 08:26 | HHI.PR ---
Addendum to Inpatient Note Addendum Reason: Additional Documentation Additional Information Called to evaluate patient with hypoxia and respiratory distress. He had been admitted several days ago for hypertension and was discharged with BP meds which he did not take. This hospital visit he was admitted for hypotension and suspected alcohol intoxication (patient is alcoholic). he had received Ativan 2 mg IV approximately 20 minutes prior to [facility]. Vitals: BP 120s/80s. HR 130s. SpO2 75 on non-rebreather mask. RR ~30 Gen: Thin white male sitting in bed in respiratory distress Resp: Breathing labored with accessory muscle use. Lungs CTAB, no crackles or wheezes. CV: Heart sounds difficult to appreciate over labored breathing. Abd: Soft, non-distended. Neuro: Obtunded. Does not respond to name, commands, or sternal rub. Assessment and Plan 56 yo male with alcohol intoxication/withdrawal now in acute hypoxic respiratory distress - Transferred to [facility] - [employer] Dr. Davies aware, appreciate assistance - Intubated - Stat CXR pending - EKG pending - CBC, BMP from this morning unremarkable - ABG pending - Case discussed with primary team sdw Johnny Leahy MD R1 Jul 31, 2016 08:26
--- NOTE | 2016-07-31 08:37 | MB ---
cc: MEERA BENNETT DATE OF CONSULTATION: 07/31/2016 1960 HISTORY OF PRESENT ILLNESS The patient is a 56-year-old male with past medical history of ETOH abuse, tobacco use, hypertension, hyperlipidemia, depression, anxiety disorder, who was admitted to [facility] under hospitalist service on July 29 for acute renal failure, dehydration, alcohol withdrawal. The patient was found to have creatinine of 2.25 with estimated GFR 30 and troponin of 0.13. The patient was admitted to the medical floor and placed on IV fluids normal saline at 125 mL an hour and his renal function was improving with creatinine down to 1.29. Halicat was called as the patient was found hypoxic in respiratory distress and with altered mental status. He was on CIWA protocol and was given Ativan 2 mg IV at 07:15 this morning. [place] [facility] was intubated immediately by myself and placed on full mechanical ventilation. Diprivan infusion was started for sedation. A chest x-ray post intubation showed pulmonary vascular congestion. PAST MEDICAL HISTORY Past medical history significant for: 1. Hypertension. 2. Hyperlipidemia. 3. Depression. 4. Anxiety. PAST SURGICAL HISTORY 1. Previous right ankle surgery. 2. Previous retinal detachment. ALLERGIES NO KNOWN DRUG ALLERGIES. FAMILY HISTORY Reviewed. No history of diabetes or coronary artery disease per records. SOCIAL HISTORY The patient is an active smoker and drinker. MEDICATIONS Current medications include: 1. Lipitor. 2. Heparin subcu. 3. Folic acid. 4. Thiamine. 5. Multivitamins. 6. IV fluids. REVIEW OF SYSTEMS As per HPI. The rest of the review of systems is unobtainable as the patient is intubated. PHYSICAL EXAMINATION GENERAL: A 56-year-old male intubated for respiratory failure. VITAL SIGNS: Afebrile, pulse of 107, blood pressure 169/84. Saturation 96%. Vent setting assist control rate of 14, tidal volume 450, PEEP of 5, FIO2 100%. HEENT: Atraumatic, normocephalic pupils equal, round and reactive to light and accommodation. Extraocular muscles intact. Conjunctivae are pink. Nonicteric sclerae. Oral mucosa within normal. NECK: Supple. No JVD, adenopathy, thyromegaly. Trachea midline. Oral intubated. CARDIOVASCULAR: Tachycardic. Normal S1-S2. No murmurs, rubs or gallops noted. PULMONARY EXAM: Bilateral equal air entry with coarse breath sounds and crackles. ABDOMEN: Soft, nontender, no distension. Positive bowel sounds. EXTREMITIES: No cyanosis, clubbing or edema. NEURO: Intubated and now on Diprivan infusion for sedation. LABORATORY DATA Sodium 146, potassium 4.3, chloride 115, CO2 24, BUN 17, creatinine 1.29, glucose 83, phosphorous 1.3, magnesium 2. WBC 7.1, hemoglobin 10, hematocrit 30, platelet count 205, INR 1. PT 11, PTT 23.5. IMAGING STUDIES Chest x-ray post-intubation showed pulmonary vascular congestion. IMPRESSION 1. Acute hypoxemic respiratory failure. 2. Pulmonary edema. 3. Acute kidney injury, improving. 4. Hypertension. 5. Mild elevation in troponin. 6. History of ETOH and tobacco use. 7. History of anxiety and depression. RECOMMENDATIONS 1. Continue with Diprivan infusion for sedation and we will add fentanyl drip if needed for sedation and vent synchrony. 2. Continue with thiamine, multivitamins and folic acid. Will obtain a CT scan of the brain without contrast for further evaluation of his altered mental status. 3. Continue vent support and maintain sats above 92%. 4. Bronchodilators in the form of DuoNeb q. 6 and will initiate ICU vent bundle. 5. Will check ABG post intubation. 6. Monitor heart rate and blood pressure closely and maintain MAP above 65 mmHg. Continue with aspirin 81 mg daily, Lipitor 20 mg p.o. q.h.s. Will obtain 2-D echo to evaluate LV function. 7. Monitor renal function, I&O's and will place on electrolyte replacement protocol. The patient will need phosphorus replacement today. We will discontinue IV fluids and diurese with Bumex 1 mg IV x1. 8. Keep n.p.o. for now and place on Protonix 40 mg IV daily for GI prophylaxis. 9. Monitor CBC and for signs of infections which include fever and WBC. Will panculture if spikes a fever. Check urinalysis with culture if indicated and will obtain a sputum culture. 10. Monitor CBC. 11. Place on sliding scale insulin with Accu-Chek q. 4-hour for glycemic control. 12. GI prophylaxis with Protonix 40 mg daily and DVT prophylaxis with heparin subcu and SCDs. 13. Further recommendations will be based on hospital course. 14. Critical care time 40 minutes excluding procedures. MD EUGENIO Cox/FLORIN /8:06 AM /8:19 AM
[2016-07-31] MEDS: INSULIN NovoLIN REGULAR SUPPLEMENTAL SCALE SQ SCH ×5 (08:57→23:37)
--- NOTE | 2016-07-31 08:58 | RADRPT ---
EXAM DATE/TIME: 07/31/2016 07:49 [facility] COMPARISON: CHEST SINGLE AP, July 29, 2016, 19:26. INDICATIONS : Endotracheal tube. MEDICAL HISTORY : Hypertension. SURGICAL HISTORY : None. ENCOUNTER: Initial ACUITY: 2 days PAIN SCORE: Non-responsive. LOCATION: Bilateral upper chest FINDINGS: Interval placement of ETT with tip at the level of the clavicles. The diffuse bilateral airspace dise ase. Small right pleural effusion. Small to moderate left pleural effusion. The cardiomediastinal con tours are stable. Remainder of the exam is unchanged. CONCLUSION: 1. ETT in good position. 2. Interval development of diffuse bilateral airspace disease with small right and [id number] left pleural effusions. Differential considerations include pulmonary edema versus diffuse infection versus developing ARDS. Doug Valencia MD on July 31, 2016 at 8:51 Board Certified Radiologist. This report was verified electronically.
[2016-07-31 09:05] LABS: BACTERIA, URINE OCC /hpf; BLOOD, URINE MOD (NEG); COMMENT (UR) CATH-CULTURE IND; CULTURE IF INDICATED CATH CULTURE IND; GLUCOSE,URINE 1000 mg/dL (NEG); HYALINE CAST, URINE 7 /lpf (RARE); KETONE, URINE NEG (NEG); MUCUS URINE FEW /lpf (OCC); NITRITE,URINE NEG (NEG); PH, URINE 5.5 (5.0-8.5); SQUAMOUS EPITHELIAL CELL URINE 1 /hpf (0-5); URINE COLOR YELLOW (YELLW/STRAW)
--- NOTE | 2016-07-31 10:05 | RADRPT ---
EXAM DATE/TIME: 07/31/2016 09:22 [facility] COMPARISON: CT BRAIN W/O CONTRAST, July 29, 2016, 4:31. INDICATIONS : Altered mental status. RADIATION DOSE: 56.35 CTDIvol (mGy) MEDICAL HISTORY : Hypertension. Cardiovascular disease SURGICAL HISTORY : None. ENCOUNTER: Initial ACUITY: 1 day PAIN SCALE: 0/10 LOCATION: cranial TECHNIQUE: Multiple contiguous axial images were obtained of the head. Using automated exposure control and adj ustment of the mA and/or kV according to patient size, radiation dose was kept as low as reasonably a chievable to obtain optimal diagnostic quality images. DICOM format image data is available electro nically for review and comparison. FINDINGS: There is developing hypodensity involving a small area in the high convexity right centrum semiovale and in portions of the mid convexity right frontal cortex. These may represent areas of evolving stro ke. There is stable right orbital frontal and right temporal encephalomalacia. There is no evidence o f intracranial hemorrhage or mass. There is mild mucosal sinus disease. CONCLUSION: Likely evolving right hemispheric strokes. No evidence of hemorrhage. Lacho Morel MD on July 31, 2016 at 9:59 Board Certified Radiologist. This report was verified electronically.
[2016-07-31 10:06] LABS: BLOOD GAS BASE EXCESS -3.5 mmol/L (-2-2); BLOOD GAS CARBOXYHEMOGLOBIN 1.5 % (0-4); BLOOD GAS HCO3 21 mmol/L (22-26); BLOOD GAS METHEMOGLOBIN 1.6 % (0-2); BLOOD GAS O2 HGB SATURATION 93 % (90-100); BLOOD GAS OXYGEN CONTENT 12.2 Vol % (12.0-20.0); BLOOD GAS PCO2 40 mmHg (38-42); BLOOD GAS PO2 83 mmHg (61-120); BLOOD GAS TOTAL HGB 9.3 G/DL (12.0-16.0); CRITICAL VALUE NO; DRAW SITE LT RADIAL; FIO2 50 %; NUMBER OF ARTERIAL PUNCTURES 1; OXYGEN DEVICE VENTILATOR; STAT NO; TEMP CORR TO 98.6; ULNAR PULSE PRESENT; VENT SETTINGS SEE COMMENTS
[2016-07-31] MEDS: PIPERACIL-TAZO 4.5 GM PREMIX 100 ML IV SCH ×3 (11:30→23:37)
--- NOTE | 2016-07-31 11:56 | HHI.PR ---
Subjective Remarks This is a 56-year-old Homeless male with a PMH of Anxiety, Depression, HTN, Hyperlipidemia, Alcohol Abuse and Tobacco Abuse who was brought to the ER by EMS secondary to episode of dizziness and hypotension. BP 89/54 mm Hg. Creatinine 2.25, previously 1.71 on 07/29/16. Troponin 0.13, previously 0.55 on 06/07/16. CPK 331. CXR with no acute findings. Seen in his bedroom in the presence of nurse Miss Lopez she states the patient early complaint if difficulty to move his left leg but now is better. he had a CT of the brain performed in ER and did not found pathology, stable Encephalomalacia. has Hypokalemia could be the reason for his symptoms will replace electrolytes and follow. 07/31; the patient was seen in Intensive care unit when I was called due to Rapid Response team found the Patient in Respiratory failure, on my arrival Doctor Gama Solano is performing Endotracheal intubation recommended by Doctor Solano to continue Intensive Care Management, probable related to Pulmonary Edema and also receiving Benzodiazepines for CIWA protocol. Objective Vital Signs Date Time Temp Pulse Resp B/P Pulse Ox O2 Delivery O2 Flow Rate FiO2 07/31/16 10:58 100 45 07/31/16 09:42 100 100 07/31/16 08:18 95 40 07/31/16 07:59 99 100 07/31/16 07:30 75 15.00 100 07/31/16 07:00 116 07/31/16 07:00 86 Simple Mask 4.00 07/31/16 07:00 131 40 248/100 86 07/31/16 05:00 93 07/31/16 04:00 Nasal Cannula 4.00 07/31/16 04:00 92 07/31/16 04:00 98.5 92 22 155/93 95 07/31/16 03:00 90 07/31/16 02:00 85 07/31/16 01:00 80 07/31/16 00:00 Nasal Cannula 4.00 07/31/16 00:00 68 07/31/16 00:00 98.2 68 22 161/85 97 07/30/16 23:00 74 07/30/16 22:00 85 07/30/16 21:00 93 Nasal Cannula 3.00 07/30/16 21:00 83 07/30/16 20:00 Nasal Cannula 4.00 07/30/16 20:00 81 07/30/16 20:00 98.0 81 22 158/100 94 07/30/16 18:00 70 07/30/16 17:00 78 07/30/16 16:46 94 Nasal Cannula 3.00 07/30/16 16:42 92 Nasal Cannula 3.00 07/30/16 16:00 87 07/30/16 15:04 98.5 71 20 164/73 91 07/30/16 15:00 74 07/30/16 14:00 67 07/30/16 13:00 80 07/30/16 12:00 60 I/O 07/30/16 07/30/16 07/30/16 07/31/16 07/31/16 07/31/16 07:00 15:00 23:00 07:00 15:00 23:00 Intake Total 730 ml 3410 ml 1490 ml Output Total 375 ml 550 ml 700 ml Balance 355 ml 2860 ml 790 ml Intake Oral 730 ml 700 ml 240 ml IV Total 2710 ml 1250 ml Output Urine Total 375 ml 550 ml 700 ml # Voids 1 # Bowel Movements 1 0 Result Diagram: 07/30/16 0808 07/31/16 0631 Imaging Last Impressions Head CT 07/31/16 0000 Signed Impressions: Service Date/Time: Sunday, July 31, 2016 09:22 - CONCLUSION: Likely evolving right hemispheric strokes. No evidence of hemorrhage. Lacho Morel MD Chest X-Ray 07/31/16 0000 Signed Impressions: Service Date/Time: Sunday, July 31, 2016 07:49 - CONCLUSION: 1. ETT in good position. 2. Interval development of diffuse bilateral airspace disease with small right and mauev-an-ejxbmvky left pleural effusions. Differential considerations include pulmonary edema versus diffuse infection versus developing ARDS. Doug Valencia MD Procedures None Other Results Laboratory Tests Test 07/29/16 07/30/16 07/31/16 07/31/16 19:46 08:08 06:31 08:10 Prothrombin Time 11.0 SEC Prothromb Time International 1.0 RATIO Ratio Activated Partial 23.5 SEC Thromboplast Time Total Creatine Kinase 331 U/L Creatine Kinase MB 4.2 NG/ML Creatine Kinase MB % 1.3 % White Blood Count 7.1 TH/MM3 Red Blood Count 3.43 MIL/MM3 Hemoglobin 10.1 GM/DL Hematocrit 30.8 % Mean Corpuscular Volume 89.9 FL Mean Corpuscular Hemoglobin 29.5 PG Mean Corpuscular Hemoglobin 32.8 % Concent Red Cell Distribution Width 17.8 % Platelet Count 205 TH/MM3 Mean Platelet Volume 8.4 FL Neutrophils (%) (Auto) 68.7 % Lymphocytes (%) (Auto) 18.8 % Monocytes (%) (Auto) 8.5 % Eosinophils (%) (Auto) 3.2 % Basophils (%) (Auto) 0.8 % Neutrophils # (Auto) 4.9 TH/MM3 Lymphocytes # (Auto) 1.3 TH/MM3 Monocytes # (Auto) 0.6 TH/MM3 Eosinophils # (Auto) 0.2 TH/MM3 Basophils # (Auto) 0.1 TH/MM3 CBC Comment AUTO DIFF Differential Comment AUTO DIFF CONFIRMED Ovalocytes 1+ Total Bilirubin 0.2 MG/DL Aspartate Amino Transf 23 U/L (AST/SGOT) Alanine Aminotransferase 23 U/L (ALT/SGPT) Alkaline Phosphatase 65 U/L Troponin I 0.12 NG/ML Total Protein 5.3 GM/DL Albumin 2.6 GM/DL Sodium Level 146 MEQ/L Potassium Level 4.3 MEQ/L Chloride Level 115 MEQ/L Carbon Dioxide Level 24.8 MEQ/L Anion Gap 6 MEQ/L Blood Urea Nitrogen 17 MG/DL Creatinine 1.29 MG/DL Estimat Glomerular Filtration 58 ML/MIN Rate Random Glucose 83 MG/DL Calcium Level 8.2 MG/DL Phosphorus Level 1.3 MG/DL Magnesium Level 2.0 MG/DL Urine Color YELLOW Urine Turbidity HAZY Urine pH 5.5 Urine Specific [place] 1.012 Urine Protein 100 mg/dL Urine Glucose (UA) 1000 mg/dL Urine Ketones NEG mg/dL Urine Occult Blood MOD Urine Nitrite NEG Urine Bilirubin NEG Urine Urobilinogen LESS THAN 2.0 MG/DL Urine Leukocyte Esterase NEG Urine RBC 1 /hpf Urine WBC 2 /hpf Urine Squamous Epithelial 1 /hpf Cells Urine Amorphous Sediment RARE Urine Bacteria OCC /hpf Urine Hyaline Casts 7 /lpf Urine Mucus FEW /lpf Microscopic Urinalysis Comment CATH-CULTURE IND Test 07/31/16 09:56 Blood Gas Puncture Site LT RADIAL Blood Gas Patient Temperature 98.6 Blood Gas HCO3 21 mmol/L Blood Gas Base Excess -3.5 mmol/L Blood Gas Oxygen Saturation 93 % Arterial Blood pH 7.35 Arterial Blood Partial 40 mmHg Pressure CO2 Arterial Blood Partial 83 mmHg Pressure O2 Arterial Blood Oxygen Content 12.2 Vol % Arterial Blood 1.5 % Carboxyhemoglobin Arterial Blood Methemoglobin 1.6 % Blood Gas Hemoglobin 9.3 G/DL Oxygen Delivery Device VENTILATOR Blood Gas Ventilator Setting SEE COMMENTS Blood Gas Inspired Oxygen 50 % Objective Remarks GENERAL: no acute distress, HEENT: PERRLA, EOMI. No scleral icterus or conjunctival pallor. No lid lag or facial droop. Dry mucous membranes CARDIOVASCULAR: Regular rate and rhythm. No obvious murmurs to auscultation. No chest tenderness to palpation. RESPIRATORY: No obvious rhonchi or wheezing. Clear to auscultation. Breath sounds equal bilaterally. GASTROINTESTINAL: Abdomen soft, non-tender, nondistended. BS normal. MUSCULOSKELETAL: Extremities without clubbing, cyanosis, or edema. No obvious deformities. NEUROLOGICAL: Awake, alert and oriented x4. No focal neurologic deficits. Moving both upper and lower extremities spontaneously. Medications and IVs Current Medications Medications (Trade) Dose Ordered Sig/Mohit Route Start Time Stop Time Status Last Admin (Folate) 1 mg DAILY PO 07/30/16 09:00 08/04/16 08:59 07/31/16 08:23 (Vitamin B1) 100 mg DAILY PO 07/30/16 09:00 07/31/16 08:23 (Theragran M Tab) 1 tab DAILY PO 07/30/16 09:00 08/04/16 08:59 07/31/16 08:23 (Romazicon Inj) 0.2 mg Q1M PRN IV PUSH 07/29/16 21:15 (Ativan) 1 mg Q4H PRN PO 07/29/16 21:15 (Ativan Inj) 1 mg Q4H PRN IV PUSH 07/29/16 21:15 (Ativan) 2 mg Q2H PRN PO 07/29/16 21:15 (Ativan Inj) 2 mg Q2H PRN IV PUSH 07/29/16 21:15 07/31/16 07:15 (Ativan Inj) 2 mg Q1H PRN IV PUSH 07/29/16 21:15 (Ativan Inj) 2 mg Q15M PRN IV PUSH 07/29/16 21:15 (Haldol Inj) 2 mg Q15M PRN IM 07/29/16 21:15 (NS Flush) 2 ml UNSCH PRN IV FLUSH 07/29/16 21:15 07/31/16 08:23 (NS Flush) 2 ml BID IV FLUSH 07/30/16 09:00 07/31/16 08:23 (Zofran Inj) 4 mg Q6H PRN IVP 07/29/16 21:15 (Tylenol) 650 mg Q6H PRN PO 07/29/16 21:15 ([place]osevelt 5-325 Mg) 1 tab Q4H PRN PO 07/29/16 21:15 07/30/16 16:38 (Morphine Inj) 2 mg Q3H PRN IV 07/29/16 21:15 (Kajal-Colace) 1 tab BID PO 07/30/16 09:00 07/31/16 08:23 (Milk Of Magnesia Liq) 30 ml Q12H PRN PO 07/29/16 21:15 (Senokot) 17.2 mg Q12H PRN PO 07/29/16 21:15 (Dulcolax Supp) 10 mg DAILY PRN RECTAL 07/29/16 21:15 (Lactulose Liq) 30 ml DAILY PRN PO 07/29/16 21:15 (Ecotrin Ec) 81 mg DAILY PO 07/30/16 09:00 07/30/16 08:38 (Lipitor) 20 mg HS PO 07/30/16 21:00 07/30/16 20:37 Heparin Sodium (Porcine) 5000 units 5,000 units Q12HR SQ 07/30/16 21:00 07/31/16 08:23 (Diprivan 1000 Mg/100ml Inj) 100 ml @ 0 mls/hr TITRATE IV 07/31/16 08:00 07/31/16 08:26 (D50w (Vial) Inj) 50 ml UNSCH PRN IV 07/31/16 08:00 (Glucagon Inj) 1 mg UNSCH PRN OTHER 07/31/16 08:00 Insulin Human Regular 1 1 Q4H SQ 07/31/16 08:00 07/31/16 08:57 Potassium Chloride 100 ml @ 50 mls/hr Q2H PRN IV 07/31/16 08:00 (KCl 20 Meq Premix Inj) 100 ml @ 50 mls/hr Q2H PRN IV 07/31/16 08:00 Potassium Bicarb/ Potassium Chloride 50 meq 50 meq UNSCH PRN PO 07/31/16 08:00 Potassium Chloride 100 ml @ 25 mls/hr UNSCH PRN IV 07/31/16 08:00 Potassium Chloride 100 ml @ 50 mls/hr Q2H PRN IV 07/31/16 08:00 (Magnesium Sulfate Inj/NS Inj) 100 ml @ 50 mls/hr UNSCH PRN IV 07/31/16 08:00 Magnesium Oxide 800 mg 800 mg UNSCH PRN PO 07/31/16 08:00 (Magnesium Sulfate Inj/NS Inj) 100 ml @ 50 mls/hr UNSCH PRN IV 07/31/16 08:00 Potassium Phosphate 2000 mg 2,000 mg Q4H PRN PO 07/31/16 08:00 (Sodium Phosphate Inj/NS 250 ml Inj) 250 ml @ 42 mls/hr UNSCH PRN IV 07/31/16 08:00 Potassium Phosphate 2000 mg 2,000 mg UNSCH PRN PO/TUBE 07/31/16 08:00 (Potassium Phosphate Inj/NS 250 ml Inj) 260 ml @ 42 mls/hr UNSCH PRN IV 07/31/16 08:00 (Peridex 0.12% Liq) 15 ml BID@08,20 MT 07/31/16 08:00 07/31/16 08:24 Miscellaneous Information Patient in critical care unit? Ass... [id number] .XX 07/31/16 08:15 07/31/16 08:15 (Chlorhexidine 2% Cloth) 3 pack DAILY@04 TOPICAL 08/01/16 04:00 08/05/16 04:01 Chlorhexidine Gluconate 3 pack 3 pack UNSCH PRN TOPICAL 07/31/16 08:15 08/05/16 08:02 (fentaNYL DRIP) 250 ml @ 0 mls/hr TITRATE IV 07/31/16 08:00 07/31/16 08:26 Pantoprazole Sodium 40 mg 40 mg Q24H IV PUSH 07/31/16 09:00 07/31/16 08:22 (Zosyn 4.5 Gm Premix) 100 ml @ 200 mls/hr Q6H IV 07/31/16 11:00 07/31/16 11:30 (Ecotrin Ec) 81 mg DAILY PO 07/31/16 11:00 07/31/16 11:30 A/P Assessment and Plan 1. Hypotension: Likely secondary to dehydration. Recent eval in ER 07/29/16 for uncontrolled HTN, s/p treatment in ER and d/c'd w/ Norvasc/Lisinopril, now w/ hypotension, BP 80's systolic. S/ p 2L IVF w/ improvement. at this time stable improved Hypotension continue present IV fluids at 125 ml per hour. 2. Acute Kidney Injury : Acute on chronic. Creatinine 2.25, previously 1.71 on 07/29/16. at this time Creatinine 1.29 3. Elevated Trop: Chronic. Trop 0.13, previously 0.55 on last admit 06/07/16, s /p eval by Cardiology, Nuc Stress 06/07/16 negative for ischemia. Will monitor, check serial enzymes for trend. Resume Statin, ASA. Hold antihypertensives and resume once stable again and off IV fluids. 4. Alcohol Abuse: CIWA, Seizure Precautions, MVT/Thiamine/Folate replacement. 5. Tobacco Abuse: Ativan prn if needed. No NicoDerm to avoid vasoconstriction. strongly recommended to stop smoking. 6. Hypokalemia replaced 7. Respiratory Failure questioned about Pulmonary Edema and benzodiazepines given for CIWA protocol, Endotracheal Intubation performed, discussed and seen in ICU with Doctor Gama Toney. will continue management in Intensive Care for now. Discussed with Doctor Gama Resendiz, Appreciated Specialist Assistance. Continue Intensive Care Management. Social work for d/c planning as needed. Austin Adhikari MD Jul 31, 2016 11:56
[2016-07-31 17:15] LABS: AUTOMATED NEUTROPHIL # 9.8 TH/MM3 (1.8-7.7); BASOPHIL # 0.1 TH/MM3 (0-0.2); BASOPHIL % 0.6 % (0.0-2.0); EOSINOPHIL % 0.4 % (0.0-4.0); HEMATOCRIT 29.2 % (39.0-51.0); HEMO FLAGS DIFF FINAL; LYMPH % 9.1 % (9.0-44.0); LYMPHOCYTE # 1.1 TH/MM3 (1.0-4.8); MEAN CELL VOLUME 91.2 FL (80.0-100.0); MEAN CORPUSCULAR HEMOGLOBIN 29.1 PG (27.0-34.0); MEAN CORPUSCULAR HGB CONC 31.8 % (32.0-36.0); MONO % 5.9 % (0.0-8.0); PLATELET COUNT 179 TH/MM3 (150-450); RED CELL DISTRIBUTION WIDTH 17.3 % (11.6-17.2); WHITE BLOOD COUNT 11.7 TH/MM3 (4.0-11.0)
[2016-07-31 17:25] LABS: ALT (GPT) 21 U/L (12-78); ANION GAP 5 MEQ/L (5-15); AST (GOT) 33 U/L (15-37); BICARBONATE 27.1 MEQ/L (21.0-32.0); BLOOD UREA NITROGEN 18 MG/DL (7-18); CHLORIDE 113 MEQ/L (98-107); GLOMERULAR FILTRATION RATE 52 ML/MIN (>89); MAGNESIUM 1.6 MG/DL (1.5-2.5); POTASSIUM 3.9 MEQ/L (3.5-5.1); SODIUM (NA) 145 MEQ/L (136-145)
[2016-07-31 17:27] LABS: ALKALINE PHOSPHATASE 72 U/L (45-117); CREATINE KINASE 211 U/L (39-308); TOTAL BILIRUBIN ADULT 0.4 MG/DL (0.2-1.0)
--- NOTE | 2016-07-31 17:57 | ECHRPT ---
Indication: elevated trop CONCLUSIONS The left ventricular systolic function is severely reduced with an estimated ejection fraction in th e range of 30-35%. Mild concentric left ventricular hypertrophy. Doppler parameters are consistent with a pseudonormal left ventricular filling pattern with concomin ant abnormal relaxation and increased filling pressure (grade 2 diastolic dysfunction). Trace mitral valve regurgitation. There is trace tricuspid valve regurgitation. A moderate left sided pleural effusion is noted. BP: / HR: Rhythm: Sinus MEASUREMENTS (Male / Female) Normal Values Technical Quality:Good 2D ECHO LV Diastolic Diameter PLAX 4.6 cm 4.2 - 5.9 / 3.9 - 5.3 cm LV Systolic Diameter PLAX 4.0 cm IVS Diastolic Thickness 1.2 cm 0.6 - 1.0 / 0.6 - 0.9 cm LVPW Diastolic Thickness 1.4 cm 0.6 - 1.0 / 0.6 - 0.9 cm LV Relative Wall Thickness 0.6 RV Internal Dim ED PLAX 2.4 cm M-MODE Aortic Root Diameter MM 3.4 cm LA Systolic Diameter MM 2.9 cm LA Ao Ratio MM 0.9 AV Cusp Separation MM 1.3 cm DOPPLER Mitral E Point Velocity 123.0 cm/s Mitral A Point Velocity 90.3 cm/s Mitral E to A Ratio 1.4 LV E' Lateral Velocity 6.6 cm/s Mitral E to LV E' Lateral Ratio 18.6 LV E' Septal Velocity 4.0 cm/s Mitral E to LV E' Septal Ratio 31.1 FINDINGS LEFT VENTRICLE Normal left ventricular size. The left ventricular systolic function is severely reduced with an estimated ejection fraction in th e range of 30-35%. Mild concentric left ventricular hypertrophy. Doppler parameters are consistent with a pseudonormal left ventricular filling pattern with concomin ant abnormal relaxation and increased filling pressure (grade 2 diastolic dysfunction). RIGHT VENTRICLE Normal right ventricular size and systolic function. LEFT ATRIUM The left atrial size is normal. RIGHT ATRIUM The right atrial size is normal. ATRIAL SEPTUM The interatrial septum not well visualized. AORTA The aortic root and proximal ascending aorta are normal in size on limited imaging. MITRAL VALVE Structurally normal mitral valve. Trace mitral valve regurgitation. AORTIC VALVE Trileaflet aortic valve No aortic valve regurgitation. TRICUSPID VALVE Structurally normal tricuspid valve. There is trace tricuspid valve regurgitation. VESSELS The inferior vena cava is normal in size. PERICARDIUM A moderate left sided pleural effusion is noted. Luke Garcia DO (Electronically Signed) Final Date:31 July 2016 17:56
[2016-07-31] MEDS ORDERED: GADODIAMIDE PF 287 MG/ML 5 ML VIAL (for RAD MRI) IV ONE (18:03)
--- NOTE | 2016-07-31 18:29 | RADRPT ---
EXAM DATE/TIME: 07/31/2016 17:46 [facility] COMPARISON: CT BRAIN W/O CONTRAST, July 29, 2016, 4:31. CT BRAIN W/O CONTRAST, June 06, 2016, 20:43. CT BRAIN W/ O CONTRAST, July 31, 2016, 9:22. INDICATIONS : CVA. Patient with altered mental status and abnormal head CT demonstrating probable evolving right he mispheric stroke. MEDICAL HISTORY : Hypertension. Seizures. Rhabdomyolysis SURGICAL HISTORY : Right Ankle sx. ENCOUNTER: Initial ACUITY: 1 day PAIN SCORE: Nonresponsive. LOCATION: Bilateral cranial TECHNIQUE: Multiplanar, multisequence MRI of the brain was performed without contrast. FINDINGS: There is an area of encephalomalacia again noted involving the inferior right frontal lobe. Ther e are multiple areas of restricted diffusion involving the right frontal and parietal lobes. There is no evidence of acute hemorrhage, mass effect or midline shift. No extra-axial fluid collections are identified. The ventricular system remains within normal limits and there is mild atrophic change. Th e posterior fossa and brainstem are intact. There are retention cysts in both maxillary sinuses. CONCLUSION: 1. Multiple areas of restricted diffusion involving the right frontal and parietal lobes consistent w ith areas of acute to subacute infarction. 2. No evidence of hemorrhage, mass effect or midline shift. 3. Old area of encephalomalacia involving the right inferior frontal lobe. Morales Miller MD on July 31, 2016 at 18:21 Board Certified Radiologist. This report was verified electronically.
[2016-07-31] MEDS: RESP: ALBUTEROL 2.5 MG/IPRATROPIUM 0.5 MG NEB (SCH) NEB ×2 (18:30→21:20)
--- NOTE | 2016-07-31 18:40 | RADRPT ---
EXAM DATE/TIME: 07/31/2016 17:46 [facility] COMPARISON: CTA CAROTID ARTERIES W 3D RECON, June 07, 2016, 16:42. INDICATIONS : CVA. MEDICAL HISTORY : Hypertension. Cardiovascular disease Rhabdomyolysis SURGICAL HISTORY : Right ankle sx. ENCOUNTER: Initial ACUITY: 1 day PAIN SCORE: Nonresponsive. LOCATION: Bilateral cranial Please note a normal MRA of the brain does not entirely exclude the possibility of a small aneurysm, nor the possibility of distal intracranial vessel disease. TECHNIQUE: 3D time of flight MRA was performed. Source images, multiplanar STS MIP, and 3D volume MIP reconstru ctions were reviewed. FINDINGS: The right internal carotid artery is occluded. There are multiple missing vessels distal to the right MCA trifurcation. The left carotid, vertebral arteries and basilar artery are intact. There is no fo casandra aneurysm. The posterior cerebral arteries are intact. CONCLUSION: 1. Occlusion of the right internal carotid artery. 2. Multiple missing vessels distal to the right MCA trifurcation consistent with occlusion. Morales Miller MD on July 31, 2016 at 18:30 Board Certified Radiologist. This report was verified electronically.
--- NOTE | 2016-07-31 19:33 | HHI.CCPN ---
Subjective Remarks/Hospital Course Noted MRI brain revealed right frontal/parietal CVA acute to subacute. Diffuse prior right-sided inferior frontal encephalomalacia. Right internal carotid artery Occluded. Left ICA 50% Occluded. Left External Carotid Occluded per Preliminary Report. Discussed with Dr. Quinones. Patient currently in normal sinus rhythm. Noted to have a elevated troponin. At high risk for hemorrhagic conversion so no full anticoagulation. Allow permissive hypertension. Will be seen in AM. Objective Vital Signs Date Time Temp Pulse Resp B/P Pulse Ox O2 Delivery O2 Flow Rate FiO2 07/31/16 19:26 95 40 07/31/16 18:00 82 07/31/16 16:00 98.9 20 160/70 07/31/16 07:30 15.00 07/31/16 07:00 Simple Mask Intake and Output 07/30/16 07/30/16 07/31/16 08:00 16:00 00:00 Intake Total 730 ml 3410 ml Output Total 375 ml 550 ml Balance 355 ml 2860 ml Result Diagram: 07/31/16 1550 07/31/16 1550 Other Results Laboratory Tests Test 07/31/16 07/31/16 08:08 09:56 Blood Gas Puncture Site LT RADIAL LT RADIAL Blood Gas Patient Temperature 98.6 98.6 Blood Gas HCO3 20 mmol/L 21 mmol/L (22-26) (22-26) Blood Gas Base Excess -6.9 mmol/L -3.5 mmol/L (-2-2) (-2-2) Blood Gas Oxygen Saturation 96 % (90-100) 93 % (90-100) Arterial Blood pH 7.19 7.35 (7.380-7.420) (7.380-7.420) Arterial Blood Partial 54 mmHg (38-42) 40 mmHg (38-42) Pressure CO2 Arterial Blood Partial 136 mmHg 83 mmHg Pressure O2 (61-120) (61-120) Arterial Blood Oxygen Content 14.4 Vol % 12.2 Vol % (12.0-20.0) (12.0-20.0) Arterial Blood 1.1 % (0-4) 1.5 % (0-4) Carboxyhemoglobin Arterial Blood Methemoglobin 1.4 % (0-2) 1.6 % (0-2) Blood Gas Hemoglobin 10.5 G/DL 9.3 G/DL (12.0-16.0) (12.0-16.0) Oxygen Delivery Device VENTILATOR VENTILATOR Blood Gas Ventilator Setting SEE COMMENTS SEE COMMENTS Blood Gas Inspired Oxygen 100 % 50 % Bo Grant MD Jul 31, 2016 19:33
[2016-07-31] MEDS: ATORVASTATIN 20 MG TAB PO SCH (19:51)
[2016-07-31 22:52] LABS: HDL CHOLESTEROL 37.3 MG/DL (40.0-60.0); LDL CHOLESTEROL 82 MG/DL (0-99)
--- NOTE | 2016-07-31 23:24 | RADRPT ---
EXAM DATE/TIME: 07/31/2016 17:46 [place] COMPARISON: No previous studies available for comparison. INDICATIONS : CVA CONTRAST: 20 cc Omniscan (gadodiamide) IV MEDICAL HISTORY : Hypertension. Cardiovascular disease Rhabdomyolysis SURGICAL HISTORY : Right ankle sx. ENCOUNTER: Initial ACUITY: 1 day PAIN SCORE: Nonresponsive. LOCATION: Bilateral cranial Percent stenosis is calculated using the diameter of the stenotic region over the diameter of the nor mal distal internal carotid artery. TECHNIQUE: Bolus infused MRA of the extracranial circulation was performed using a neurovascular coil. Post pro cessing was performed including rotating subvolume maximum intensity projections of each carotid shadi ry, rotating full volume maximum intensity projections of both carotid arteries, sagittal and coronal sliding thin slab reformations of each carotid artery, and left oblique sliding thin slab reformatio n through the aortic arch to include the origin of the arch branch vessels. FINDINGS: Classical three-vessel arch anatomy is identified. The arch vessel origins are widely patent. There i s a high-grade eccentric stenosis in the left subclavian artery just proximal to the left vertebral a rtery origin. The left vertebral artery is a very diminutive vessel, potentially discontinuous in the upper neck. The right internal carotid artery is totally occluded. The left carotid bifurcation is notable for mo derate eccentric disease involving the proximal ICA were slightly less than 50% stenotic narrowing is present just beyond the vessel origin. Above this proximal disease, the left ICA regains normal chau cailin and appearance and is widely patent to the skull base. The right vertebral artery is a widely patent normal caliber vessel. The left vertebral is diminutive and potentially discontinuous in the high neck. CONCLUSION: Total occlusion of the right internal carotid artery. Slightly less than 50% eccentric stenosis of the proximal left internal carotid artery. High-grade eccentric stenosis of the left subclavian artery proximal to a diminutive left vertebral a rtery. Lacho Morel MD on July 31, 2016 at 23:17 Board Certified Radiologist. This report was verified electronically.
[2016-08-01] VITALS (18 sets, daily range): BP systolic 108–188; BP diastolic 54–81; PULSE 57–82; RESP 20; TEMP 97.8–99.2; O2SAT 94–100
[2016-08-01] MEDS: RESP: ALBUTEROL 2.5 MG/IPRATROPIUM 0.5 MG NEB (SCH) NEB ×4 (03:55→20:04)
[2016-08-01] MEDS: CHLORHEXIDINE GLUCONATE 2 % 1 PACK (2 CLOTHS)(taper/protocol) TOPICAL SCH (04:00)
[2016-08-01] MEDS: INSULIN NovoLIN REGULAR SUPPLEMENTAL SCALE SQ SCH ×5 (04:00→20:00)
[2016-08-01 05:00] LABS: AUTOMATED NEUTROPHIL # 6.7 TH/MM3 (1.8-7.7); BASOPHIL # 0.1 TH/MM3 (0-0.2); BASOPHIL % 1.2 % (0.0-2.0); EOSINOPHIL # 0.1 TH/MM3 (0-0.4); EOSINOPHIL % 1.5 % (0.0-4.0); HEMATOCRIT 28.3 % (39.0-51.0); LYMPH % 16.5 % (9.0-44.0); LYMPHOCYTE # 1.5 TH/MM3 (1.0-4.8); MEAN CELL VOLUME 89.7 FL (80.0-100.0); MEAN CORPUSCULAR HEMOGLOBIN 29.7 PG (27.0-34.0); MEAN CORPUSCULAR HGB CONC 33.1 % (32.0-36.0); MONO % 7.7 % (0.0-8.0); NEUT % 73.1 % (16.0-70.0); PLATELET COUNT 158 TH/MM3 (150-450); RED BLOOD COUNT 3.16 MIL/MM3 (4.50-5.90); WHITE BLOOD COUNT 9.1 TH/MM3 (4.0-11.0)
[2016-08-01 05:01] LABS: HEMO FLAGS AUTO DIFF
[2016-08-01] MEDS: PIPERACIL-TAZO 4.5 GM PREMIX 100 ML IV SCH ×4 (05:22→21:01)
[2016-08-01 05:28] LABS: BICARBONATE 26.7 MEQ/L (21.0-32.0); POTASSIUM 4.1 MEQ/L (3.5-5.1)
[2016-08-01] MEDS: fentaNYL DRIP 250 ML IV SCH (06:23)
[2016-08-01 07:05] LABS: SCAN/DIFF AUTO DIFF CONFIRMED
--- NOTE | 2016-08-01 08:12 | HHI.CCPN ---
Subjective Remarks/Hospital Course The patient is a 56-year-old male with past medical history of ETOH abuse, tobacco use, hypertension, hyperlipidemia, depression, anxiety disorder, who was admitted to [facility] under hospitalist service on July 29 for acute renal failure, dehydration, alcohol withdrawal. The patient was found to have creatinine of 2.25 with estimated GFR 30 and troponin of 0.13. The patient was admitted to the medical floor and placed on IV fluids normal saline at 125 mL an hour and his renal function was improving with creatinine down to 1.29. [facility] was found hypoxic in respiratory distress and with altered mental status. He was on CIWA protocol and was given Ativan 2 mg IV at 07:15 this morning. Upon arrival to [facility] the patient was intubated immediately by myself and placed on full mechanical ventilation. Diprivan infusion was started for sedation. A chest x-ray post intubation showed pulmonary vascular congestion. 08/01 Patient is sedated with Fentanyl and intubated. MRI brain revealed right frontal/parietal CVA acute to subacute. Diffuse prior right-sided inferior frontal encephalomalacia. Right internal carotid artery Occluded. Left ICA 50 % Occluded. Left External Carotid Occluded. renal function is worse with Cr: 1.67 from 1.42. Trop 2,45 this morning. Objective Vital Signs Date Time Temp Pulse Resp B/P Pulse Ox O2 Delivery O2 Flow Rate FiO2 08/01/16 04:00 97.9 57 20 108/54 95 08/01/16 04:00 40 07/31/16 19:00 Mechanical Ventilator 07/31/16 07:30 15.00 Intake and Output 07/31/16 07/31/16 08/01/16 08:00 16:00 00:00 Intake Total 1490 ml 178 ml 463 ml Output Total 700 ml 1250 ml 500 ml Balance 790 ml -1072 ml -37 ml Result Diagram: 08/01/16 0428 08/01/16 0430 Other Results Laboratory Tests Test 07/31/16 07/31/16 07/31/16 07/31/16 08:30 09:56 15:50 21:25 Nasal Screen MRSA (PCR) MRSA NOT DETECTED Blood Gas Puncture Site LT RADIAL Blood Gas Patient Temperature 98.6 Blood Gas HCO3 21 mmol/L Blood Gas Base Excess -3.5 mmol/L Blood Gas Oxygen Saturation 93 % Arterial Blood pH 7.35 Arterial Blood Partial 40 mmHg Pressure CO2 Arterial Blood Partial 83 mmHg Pressure O2 Arterial Blood Oxygen Content 12.2 Vol % Arterial Blood 1.5 % Carboxyhemoglobin Arterial Blood Methemoglobin 1.6 % Blood Gas Hemoglobin 9.3 G/DL Oxygen Delivery Device VENTILATOR Blood Gas Ventilator Setting SEE COMMENTS Blood Gas Inspired Oxygen 50 % White Blood Count 11.7 TH/MM3 Red Blood Count 3.20 MIL/MM3 Hemoglobin 9.3 GM/DL Hematocrit 29.2 % Mean Corpuscular Volume 91.2 FL Mean Corpuscular Hemoglobin 29.1 PG Mean Corpuscular Hemoglobin 31.8 % Concent Red Cell Distribution Width 17.3 % Platelet Count 179 TH/MM3 Mean Platelet Volume 9.0 FL Neutrophils (%) (Auto) 84.0 % Lymphocytes (%) (Auto) 9.1 % Monocytes (%) (Auto) 5.9 % Eosinophils (%) (Auto) 0.4 % Basophils (%) (Auto) 0.6 % Neutrophils # (Auto) 9.8 TH/MM3 Lymphocytes # (Auto) 1.1 TH/MM3 Monocytes # (Auto) 0.7 TH/MM3 Eosinophils # (Auto) 0.0 TH/MM3 Basophils # (Auto) 0.1 TH/MM3 CBC Comment DIFF FINAL Differential Comment Sodium Level 145 MEQ/L Potassium Level 3.9 MEQ/L Chloride Level 113 MEQ/L Carbon Dioxide Level 27.1 MEQ/L Anion Gap 5 MEQ/L Blood Urea Nitrogen 18 MG/DL Creatinine 1.42 MG/DL Estimat Glomerular Filtration 52 ML/MIN Rate Random Glucose 79 MG/DL Calcium Level 7.6 MG/DL Phosphorus Level 1.6 MG/DL 2.7 MG/DL Magnesium Level 1.6 MG/DL Total Bilirubin 0.4 MG/DL Aspartate Amino Transf 33 U/L (AST/SGOT) Alanine Aminotransferase 21 U/L (ALT/SGPT) Alkaline Phosphatase 72 U/L Total Creatine Kinase 211 U/L Troponin I 3.45 NG/ML 2.21 NG/ML Total Protein 5.3 GM/DL Albumin 2.3 GM/DL Triglycerides Level 78 MG/DL Cholesterol Level 135 MG/DL LDL Cholesterol 82 MG/DL HDL Cholesterol 37.3 MG/DL Cholesterol/HDL Ratio 3.61 RATIO Test 08/01/16 08/01/16 04:28 04:30 White Blood Count 9.1 TH/MM3 Red Blood Count 3.16 MIL/MM3 Hemoglobin 9.4 GM/DL Hematocrit 28.3 % Mean Corpuscular Volume 89.7 FL Mean Corpuscular Hemoglobin 29.7 PG Mean Corpuscular Hemoglobin 33.1 % Concent Red Cell Distribution Width 17.0 % Platelet Count 158 TH/MM3 Mean Platelet Volume 8.9 FL Neutrophils (%) (Auto) 73.1 % Lymphocytes (%) (Auto) 16.5 % Monocytes (%) (Auto) 7.7 % Eosinophils (%) (Auto) 1.5 % Basophils (%) (Auto) 1.2 % Neutrophils # (Auto) 6.7 TH/MM3 Lymphocytes # (Auto) 1.5 TH/MM3 Monocytes # (Auto) 0.7 TH/MM3 Eosinophils # (Auto) 0.1 TH/MM3 Basophils # (Auto) 0.1 TH/MM3 CBC Comment AUTO DIFF Differential Comment AUTO DIFF CONFIRMED Sodium Level 147 MEQ/L Potassium Level 4.1 MEQ/L Chloride Level 114 MEQ/L Carbon Dioxide Level 26.7 MEQ/L Anion Gap 6 MEQ/L Blood Urea Nitrogen 23 MG/DL Creatinine 1.67 MG/DL Estimat Glomerular Filtration 43 ML/MIN Rate Random Glucose 121 MG/DL Calcium Level 8.0 MG/DL Troponin I 2.45 NG/ML Imaging Last Impressions Neck Magnetic Resonance Angiography 07/31/16 0000 Signed Impressions: Service Date/Time: Sunday, July 31, 2016 17:46 - CONCLUSION: Total occlusion of the right internal carotid artery. Slightly less than 50%% eccentric stenosis of the proximal left internal carotid artery. High-grade eccentric stenosis of the left subclavian artery proximal to a diminutive left vertebral artery. Lacho Morel MD Head Magnetic Resonance Angiography 07/31/16 0000 Signed Impressions: Service Date/Time: Sunday, July 31, 2016 17:46 - CONCLUSION: 1. Occlusion of the right internal carotid artery. 2. Multiple missing vessels distal to the right MCA trifurcation consistent with occlusion. Morales Miller MD Head CT 07/31/16 0000 Signed Impressions: Service Date/Time: Sunday, July 31, 2016 09:22 - CONCLUSION: Likely evolving right hemispheric strokes. No evidence of hemorrhage. Lacho Morel MD Chest X-Ray 07/31/16 0000 Signed Impressions: Service Date/Time: Sunday, July 31, 2016 07:49 - CONCLUSION: 1. ETT in good position. 2. Interval development of diffuse bilateral airspace disease with small right and sedvk-kz-pydfkyed left pleural effusions. Differential considerations include pulmonary edema versus diffuse infection versus developing ARDS. Doug Valencia MD Brain MRI 07/31/16 0000 Signed Impressions: Service Date/Time: Sunday, July 31, 2016 17:46 - CONCLUSION: 1. Multiple areas of restricted diffusion involving the right frontal and parietal lobes consistent with areas of acute to subacute infarction. 2. No evidence of hemorrhage, mass effect or midline shift. 3. Old area of encephalomalacia involving the right inferior frontal lobe. Morales Miller MD Objective Remarks GENERAL: Patient is 56 yo intubated and sedated SKIN: Warm and dry. HEAD: Normocephalic. EYES: No scleral icterus. No injection or drainage. NECK: Supple, trachea midline. No JVD or lymphadenopathy. Orally intubated CARDIOVASCULAR: Regular rate and rhythm without murmurs, gallops, or rubs. RESPIRATORY: Breath sounds equal bilaterally. No accessory muscle use. GASTROINTESTINAL: Abdomen soft, non-tender, nondistended. MUSCULOSKELETAL: No cyanosis, or edema. Neuro: Sedated A/P Assessment and Plan 1. VDRF 2. Right sided CVA 3. Acute kidney injury 4. Hypertension. 5. Elevated trop/ NSTEMI 6. Encephalopathy 7 Anemia 8. History of ETOH and tobacco use. 9. History of anxiety and depression. Plan Neuro: On Fentanyl infusion for sedation> Daily sedation vacation. Continue with thiamine, multivitamins and folic acid. MRI brain: Multiple areas of restricted diffusion involving the right frontal and parietal lobes consistent with areas of acute to subacute infarction. No evidence of hemorrhage, mass effect or midline shift. Old area of encephalomalacia involving the right inferior frontal lobe MRA brain: Occlusion of the right internal carotid artery. 2. Multiple missing vessels distal to the right MCA trifurcation consistent with occlusion. MRA neck: Total occlusion of the right internal carotid artery. Slightly less than 50%% eccentric stenosis of the proximal left internal carotid artery. High-grade eccentric stenosis of the left subclavian artery proximal to a diminutive left vertebral artery. For EEG today, continue ASA 81mg daily. Discussed with Neuro- Dr. Velasquez and vascular surgery-Dr. Jazarevic Pulm: Continue vent support and maintain sats above 92%. Bronchodilators, ICU vent bundle. CV: Monitor HR and BP and maintain MAP >65mmHg Continue with aspirin 81 mg daily, Lipitor 20 mg p.o. q.h.s. Echo showed EF 30-35% , grade II diastolic dysfunction. Monitor trop, cards eval. Patient is at high risk for hemorrhagic conversion with his CVA with full anticoagulation. : Monitor renal function, I&O's and will place on electrolyte replacement protocol. Place on Free water 250ml Q12 GI: on Protonix 40 mg IV daily for GI prophylaxis. On tube feeds- Glucerna 1.5 @ 45ml/hr ID: Continue with abx (Zosyn) for possible aspiration and monitor CBC and for signs of infections(fever and WBC). Follow up on sputum and urine cxs Heme: Monitor CBC. Endo: SSI with Accu-Chek q. 4-hour for glycemic control. GI prophylaxis with Protonix 40 mg daily and DVT prophylaxis with heparin subcu and SCDs. Prognosis guarded CCT 30 mins Gama Solano MD Aug 01, 2016 08:12
[2016-08-01] MEDS: MULTIVITAMINS/MINERALS THERAPEUTIC TAB PO SCH (09:17)
[2016-08-01] MEDS: DOCUSATE SODIUM 50 MG/SENNA 8.6 MG TAB PO SCH ×2 (09:17→21:02)
[2016-08-01] MEDS: SODIUM CHLORIDE 0.9% FLUSH 10 ML FLUSH IV FLUSH SCH ×2 (09:17→21:00)
[2016-08-01] MEDS: PANTOPRAZOLE SODIUM 40 MG VIAL IV PUSH SCH (09:17)
[2016-08-01] MEDS: FOLIC ACID 1 MG TAB PO SCH (09:18)
[2016-08-01] MEDS: FREE WATER G-TUBE SCH ×2 (09:18→21:00)
[2016-08-01] MEDS: ASPIRIN EC 81 MG TABEC PO SCH (09:18)
[2016-08-01] MEDS: HEPARIN SODIUM - SQ 10,000 UNITS/ML VIAL SQ SCH ×2 (09:18→21:02)
[2016-08-01] MEDS: THIAMINE HCL 100 MG TAB PO SCH (09:18)
[2016-08-01] MEDS: CHLORHEXIDINE 0.12% (ORAL KIT) 15 ML CUP MT SCH ×2 (09:19→21:01)
--- NOTE | 2016-08-01 09:41 | MG ---
cc: SUZY MICHELE M.D. Lab No: Date: 07/31/2016 Age: 56 Sex: M Race: __ REFERRING PHYSICIAN Dr. Solano HISTORY An EEG was obtained on this 56-year-old patient with a history of being intubated on Diprivan with renal failure, alcohol withdrawal and depression. MEDICATIONS 1. Fentanyl 2. Diprivan 3. Thiamine 4. Folic acid 5. Insulin 6. Ativan DESCRIPTION The patient is sedated. The EEG shows a lot of artifact. Diprivan was on. There is some alpha activity on the left more than right posteriorly, but this is difficult to be judged because of the artifact. Towards the mid to the end of the EEG, there is less artifact and some sleep features are noted with a near burst activity of a combination of nonreactive also with some beta rhythms possibly left more than right. Some associated sharp waves with this burst activity. Photic stimulation disclosed no change. INTERPRETATION Abnormal EEG because of generalized attenuation and near burst activity happening every five seconds. These bursts are not the typical burst suppression pattern, but there is a mixture of some theta with alpha and beta rhythms questionably better seen on the left than right. The findings need to be correlated clinically and with imaging study of the brain. Followup EEG is recommended. No ictal activity and no epileptiform features are present. MD TONEY Peterson/DJL /8:49 PM /9:40 AM
--- NOTE | 2016-08-01 12:30 | PD.CAR.PN ---
CVT Progress Note Subjective/Hospital Course: 56-year-old male with a right hemispheric stroke and occlusion of the right internal carotid artery In addition patient has left subclavian stenosis and mild narrowing of the left internal carotid artery At this point patient has multiple medical problems he is on the ventilator with elevated troponins and developing right hemispheric ischemic stroke. Unfortunately carotid artery occlusion is not a surgical entity and cannot be reopened recanalized in any other way treated. Once carotid arteries occluded there is no remedy from surgical or endovascular point as far as the left side is concerned this is hemodynamically nonsignificant and should not be addressed at this time in anyway Thank you much for referral I'll be available if any unrelated or related surgical issues might arise. Thanks J Objective: Vital Signs Date Time Temp Pulse Resp B/P Pulse Ox O2 Delivery O2 Flow Rate FiO2 08/01/16 12:00 99.0 74 20 148/66 95 08/01/16 11:35 96 40 08/01/16 10:00 76 08/01/16 09:00 82 08/01/16 08:14 96 40 08/01/16 08:00 40 08/01/16 08:00 98.7 70 20 137/58 96 08/01/16 08:00 70 08/01/16 04:00 97.9 57 20 108/54 95 08/01/16 04:00 40 08/01/16 03:56 94 40 08/01/16 01:09 96 40 08/01/16 00:00 97.8 66 20 123/55 97 08/01/16 00:00 40 07/31/16 20:00 40 07/31/16 20:00 98.0 68 20 128/60 96 07/31/16 19:26 95 40 07/31/16 19:00 Mechanical Ventilator 07/31/16 18:22 99 100 07/31/16 18:00 82 07/31/16 16:00 82 07/31/16 16:00 40 07/31/16 16:00 98.9 82 20 160/70 99 07/31/16 15:51 99 40 07/31/16 14:00 95 Labs: Laboratory Tests Test 08/01/16 08/01/16 08/01/16 04:28 04:30 10:15 White Blood Count 9.1 TH/MM3 (4.0-11.0) Red Blood Count 3.16 MIL/MM3 (4.50-5.90) Hemoglobin 9.4 GM/DL (13.0-17.0) Hematocrit 28.3 % (39.0-51.0) Mean Corpuscular Volume 89.7 FL (80.0-100.0) Mean Corpuscular Hemoglobin 29.7 PG (27.0-34.0) Mean Corpuscular Hemoglobin 33.1 % Concent (32.0-36.0) Red Cell Distribution Width 17.0 % (11.6-17.2) Platelet Count 158 TH/MM3 (150-450) Mean Platelet Volume 8.9 FL (7.0-11.0) Neutrophils (%) (Auto) 73.1 % (16.0-70.0) Lymphocytes (%) (Auto) 16.5 % (9.0-44.0) Monocytes (%) (Auto) 7.7 % (0.0-8.0) Eosinophils (%) (Auto) 1.5 % (0.0-4.0) Basophils (%) (Auto) 1.2 % (0.0-2.0) Neutrophils # (Auto) 6.7 TH/MM3 (1.8-7.7) Lymphocytes # (Auto) 1.5 TH/MM3 (1.0-4.8) Monocytes # (Auto) 0.7 TH/MM3 (0-0.9) Eosinophils # (Auto) 0.1 TH/MM3 (0-0.4) Basophils # (Auto) 0.1 TH/MM3 (0-0.2) CBC Comment AUTO DIFF Differential Comment AUTO DIFF CONFIRMED Sodium Level 147 MEQ/L (136-145) Potassium Level 4.1 MEQ/L (3.5-5.1) Chloride Level 114 MEQ/L (98-107) Carbon Dioxide Level 26.7 MEQ/L (21.0-32.0) Anion Gap 6 MEQ/L (5-15) Blood Urea Nitrogen 23 MG/DL (7-18) Creatinine 1.67 MG/DL (0.60-1.30) Estimat Glomerular Filtration 43 ML/MIN (>89) Rate Random Glucose 121 MG/DL (74-106) Calcium Level 8.0 MG/DL (8.5-10.1) Troponin I 2.45 NG/ML 1.74 NG/ML (0.02-0.05) (0.02-0.05) Result Diagram: 08/01/16 0428 08/01/16 0430 Filomena Castro MD Aug 01, 2016 12:30
[2016-08-01 14:25] LABS: HEMOGLOBIN A1a 1.4 %; HEMOGLOBIN A1b 0.8 %; HEMOGLOBIN Ao 83.5 %; HEMOGLOBIN F 1.7 %; HEMOGLOBIN LA1C 1.8 %; HEMOGLOBIN P3 4.2 %
--- NOTE | 2016-08-01 14:40 | ECHRPT ---
Indication: CONCLUSIONS The left ventricular systolic function is mgzkkkui-aw-xhlmuqm reduced with an estimated ejection fra ction in the range of 35-40%. Mild to moderate concentric left ventricular hypertrophy. Global hypokinesis possibly more pronounced in the septum. The anterior wall is not well seen. Normal left ventricular size. Structurally normal mitral valve. There is trace mitral valve regurgitation. There is trace tricuspid valve regurgitation. The estimated pulmonary arterial pressure is 23 mmHg. A left sided pleural effusion is present. BP: 108 / 54 HR: 57 Rhythm: Sinus MEASUREMENTS (Male / Female) Normal Values Technical Quality:Good 2D ECHO LV Diastolic Diameter PLAX 4.5 cm 4.2 - 5.9 / 3.9 - 5.3 cm LV Systolic Diameter PLAX 3.9 cm IVS Diastolic Thickness 1.1 cm 0.6 - 1.0 / 0.6 - 0.9 cm LVPW Diastolic Thickness 1.1 cm 0.6 - 1.0 / 0.6 - 0.9 cm LV Relative Wall Thickness 0.5 DOPPLER TR Peak Velocity 182.0 cm/s TR Peak Gradient 13.2 mmHg FINDINGS LEFT VENTRICLE The left ventricular systolic function is gqjanwsm-dy-jujexzp reduced with an estimated ejection fra ction in the range of 35-40%. Mild to moderate concentric left ventricular hypertrophy. Global hypokinesis possibly more pronounced in the septum. The anterior wall is not well seen. Normal left ventricular size. RIGHT VENTRICLE Normal right ventricular size and systolic function. LEFT ATRIUM The left atrial size is normal. RIGHT ATRIUM The right atrial size is normal. ATRIAL SEPTUM Normal atrial septal thickness without atrial level shunting by limited color doppler interrogation. AORTA The aortic root and proximal ascending aorta are normal in size on limited imaging. MITRAL VALVE Structurally normal mitral valve. There is trace mitral valve regurgitation. AORTIC VALVE Trileaflet aortic valve. No aortic valve stenosis or regurgitation. TRICUSPID VALVE There is trace tricuspid valve regurgitation. The estimated pulmonary arterial pressure is 23 mmHg. PULMONARY VALVE The pulmonary valve is not well visualized. VESSELS The inferior vena cava is normal in size. PERICARDIUM A left sided pleural effusion is present. Gio Nuno MD (Electronically Signed) Final Date:01 August 2016 14:39
--- NOTE | 2016-08-01 16:35 | PD.CONS ---
Consult Service Palliative Care Consult Requested By Dr. Solano . Primary Care Physician No Primary Care Physician Reason for Consultation a. To assist with evaluation and management of symptoms including: Shortness of breath and debility. b. To assist medical decision maker(s) with: better understanding of current medical conditions; weighing benefits/burdens of medical treatment options; making medical treatment decisions. . HPI History of Present Illness Mr. Porter is a 56 y/o male with a medical history of hypertension, alcohol abuse, tobacco abuse, anxiety, depression, hyperlipidemia. Patient presented to ED on 07/29/16 via EMS secondary to dizziness and hypertension. As per medical records, patient was seen soon the ED the same morning with complaints of headaches and hypertension. Chest x-ray negative for acute process. Laboratory workup indicating WBC 7.0, Hgb 10.9, platelet count 225. Sodium 141 , potassium 3.5, BUN/creatinine 28/225. Troponin 0.13. UA negative for nitrate or leukocytes. Patient was admitted for further evaluation and management of dehydration, renal failure and chronic elevation of troponin. Clinical course/workup as follow: * 2-D echocardiogram 07/31/16 revealing EF of 30-35%, grade 2 diastolic dysfunction and trace mitral and tricuspid regurgitation. * 07/31/16 patient was found with altered mental status, hypoxic and on respiratory distress. Patient was intubated and placed on full mechanical ventilation. * 07/31/16 chest x-ray showing pulmonary vascular congestion. * 07/31/16 neck MRA: Right internal carotid artery, total occlusion. Proximal left internal carotid artery, less than 50% stenosis. Left subclavian artery, high-grade stenosis. * 07/31/16 head MRA: Multiple missing vessels distal to the right MCA trifurcation consistent with occlusion. * 07/31/[address]: Likely evolving right hemispheric stroke. No evidence of hemorrhage. * 07/31/16 brain MRI: Multiple areas of restricted diffusion involving the right frontal and parietal lobes consistent with areas of acute to subacute infarction. Old areas of encephalomalacia involving the right inferior frontal lobe. * 2-D echocardiogram 08/01 16 showing EF of 35-40%. * Dr. Castro consulted on 08/01/16. Patient not a surgical candidate. Patient seen in ICU. He remains intubated on mechanical ventilation. Briefly opening eyes to verbal stimuli. Following simple commands with right hand, squeezing my hand and giving thumbs up to command. Patient shaking head no when asked about pain or discomfort. Patient remains afebrile, hypertensive with SBP in the 140s to 160s. Remains orally intubated on mechanical ventilation, FiO2 40%. Laboratory today revealing WBC 9.1, Hgb 9.4, platelet count 158. Sodium 147, potassium 4.1. BUN/creatinine 23/1.67. Troponin remains elevated. Met with patient's son Joon. Reviewed patient's past medical/social history and events leading to this hospitalization, clinical course and current medical management. Reviewed results of brain MRI revealed right frontal/parietal CVA acute to subacute. MRA of head and neck revealing right internal carotid artery Occluded. Left ICA 50% Occluded, not a surgical candidate. Reviewed concerns of patient's worsening renal function. Reviewed with son likely trajectory of illness to include possible trach, PEG and long-term placement. Reviewed that given his worsening kidney function, patient may also require renal replacement therapy. Reviewed risks, benefits and limitations of CPR given patient's clinical condition. Discussed that within the next few days, family may be presented with difficult medical decisions. Son tells me that he will like to get some guidance and support from his extended family to include patient's brother and sister. Son Yusuf to also participate in medical decision-making, daughter Olesya resides in [place] and has not been in contact with her siblings for many years. No contact info for her. Palliative care has offered to arrange a family meeting to include extended family members. Palliative care will continue to follow-up. Son appreciative of my visit today. . Function/Cognitive Trajectory Patient reported as homeless. Previously living at [facility] in [place] with a roommate. Patient independent with all ADLs prior to this acute hospitalization. EtOH use and abuse. . Review of Systems ROS Limitations: Clinical Condition, Intubated Constitutional: DENIES: Fatigue, Fever Endocrine: DENIES: Heat/cold intolerance Ears, nose, mouth, throat: DENIES: Hearing loss Cardiovascular: DENIES: Chest pain Integumentary: DENIES: Abnormal pigmentation Hematologic/Lymphatics: DENIES: Bruising Neurologic: DENIES: Headache Psychiatric: COMPLAINS OF: Anxiety, Depression Other ROS: Limited ROS secondary to clinical condition. Patient intubated on mechanical ventilation. ROS obtained from medical records, patient's family and clinical observation. Past Family Social History Coded Allergies: No Known Allergies (Verified , 07/29/16) Past Medical History COPD Elevated troponin Hypertension Hyperlipidemia Alcohol use and abuse Tobacco use and abuse Anxiety Depression . Past Surgical History Right thoracotomy in 2008 Lumbar section Right ankle surgery in 1982 . Reported Medications Norvasc (Amlodipine Besylate) 10 Mg Tab 10 Mg PO DAILY Lisinopril 10 Mg Tab 10 Mg PO DAILY Atorvastatin (Atorvastatin Calcium) 20 Mg Tab 20 Mg PO HS Klor-Con 10 (Potassium Chloride) 10 Meq Tab 10 Meq PO DAILY Lisinopril 5 Mg Tab 5 Mg PO DAILY Furosemide 20 Mg Tab 20 Mg PO BID Coreg (Carvedilol) 3.125 Mg Tab 3.125 Mg PO Q12HR Norvasc (Amlodipine Besylate) 5 Mg Tab 5 Mg PO DAILY Aspirin EC (Aspirin) 81 Mg Tabdr 81 Mg PO DAILY . Current Medications Medications (Trade) Dose Ordered Sig/Mohit Route Start Time Stop Time Status Last Admin (Folate) 1 mg DAILY PO 07/30/16 09:00 08/04/16 08:59 08/01/16 09:18 (Vitamin B1) 100 mg DAILY PO 07/30/16 09:00 08/01/16 09:18 (Theragran M Tab) 1 tab DAILY PO 07/30/16 09:00 08/04/16 08:59 08/01/16 09:17 (Romazicon Inj) 0.2 mg Q1M PRN IV PUSH 07/29/16 21:15 (Ativan) 1 mg Q4H PRN PO 07/29/16 21:15 (Ativan Inj) 1 mg Q4H PRN IV PUSH 07/29/16 21:15 (Ativan) 2 mg Q2H PRN PO 07/29/16 21:15 (Ativan Inj) 2 mg Q2H PRN IV PUSH 07/29/16 21:15 07/31/16 07:15 (Ativan Inj) 2 mg Q1H PRN IV PUSH 07/29/16 21:15 (Ativan Inj) 2 mg Q15M PRN IV PUSH 07/29/16 21:15 (Haldol Inj) 2 mg Q15M PRN IM 07/29/16 21:15 (NS Flush) 2 ml UNSCH PRN IV FLUSH 07/29/16 21:15 07/31/16 08:23 (NS Flush) 2 ml BID IV FLUSH 07/30/16 09:00 08/01/16 09:17 (Zofran Inj) 4 mg Q6H PRN IVP 07/29/16 21:15 (Tylenol) 650 mg Q6H PRN PO 07/29/16 21:15 (Brogan 5-325 Mg) 1 tab Q4H PRN PO 07/29/16 21:15 07/30/16 16:38 (Morphine Inj) 2 mg Q3H PRN IV 07/29/16 21:15 (Kajal-Colace) 1 tab BID PO 07/30/16 09:00 08/01/16 09:17 (Milk Of Magnesia Liq) 30 ml Q12H PRN PO 07/29/16 21:15 (Senokot) 17.2 mg Q12H PRN PO 07/29/16 21:15 (Dulcolax Supp) 10 mg DAILY PRN RECTAL 07/29/16 21:15 (Lactulose Liq) 30 ml DAILY PRN PO 07/29/16 21:15 (Lipitor) 20 mg HS PO 07/30/16 21:00 07/31/16 19:51 Heparin Sodium (Porcine) 5000 units 5,000 units Q12HR SQ 07/30/16 21:00 08/01/16 09:18 (Diprivan 1000 Mg/100ml Inj) 100 ml @ 0 mls/hr TITRATE IV 07/31/16 08:00 07/31/16 08:26 (D50w (Vial) Inj) 50 ml UNSCH PRN IV 07/31/16 08:00 (Glucagon Inj) 1 mg UNSCH PRN OTHER 07/31/16 08:00 Insulin Human Regular 1 1 Q4H SQ 07/31/16 08:00 08/01/16 13:03 Potassium Chloride 100 ml @ 50 mls/hr Q2H PRN IV 07/31/16 08:00 (KCl 20 Meq Premix Inj) 100 ml @ 50 mls/hr Q2H PRN IV 07/31/16 08:00 Potassium Bicarb/ Potassium Chloride 50 meq 50 meq UNSCH PRN PO 07/31/16 08:00 Potassium Chloride 100 ml @ 25 mls/hr UNSCH PRN IV 07/31/16 08:00 Potassium Chloride 100 ml @ 50 mls/hr Q2H PRN IV 07/31/16 08:00 (Magnesium Sulfate Inj/NS Inj) 100 ml @ 50 mls/hr UNSCH PRN IV 07/31/16 08:00 Magnesium Oxide 800 mg 800 mg UNSCH PRN PO 07/31/16 08:00 (Magnesium Sulfate Inj/NS Inj) 100 ml @ 50 mls/hr UNSCH PRN IV 07/31/16 08:00 Potassium Phosphate 2000 mg 2,000 mg Q4H PRN PO 07/31/16 08:00 (Sodium Phosphate Inj/NS 250 ml Inj) 250 ml @ 42 mls/hr UNSCH PRN IV 07/31/16 08:00 Potassium Phosphate 2000 mg 2,000 mg UNSCH PRN PO/TUBE 07/31/16 08:00 (Potassium Phosphate Inj/NS 250 ml Inj) 260 ml @ 42 mls/hr UNSCH PRN IV 07/31/16 08:00 (Peridex 0.12% Liq) 15 ml BID@08,20 MT 07/31/16 08:00 08/01/16 09:19 Miscellaneous Information Patient in critical care unit? Ass... Q361D .XX 07/31/16 08:15 07/31/16 08:15 (Chlorhexidine 2% Cloth) 3 pack DAILY@04 TOPICAL 08/01/16 04:00 08/05/16 04:01 08/01/16 04:00 Chlorhexidine Gluconate 3 pack 3 pack UNSCH PRN TOPICAL 07/31/16 08:15 08/05/16 08:02 (fentaNYL DRIP) 250 ml @ 0 mls/hr TITRATE IV 07/31/16 08:00 08/01/16 06:23 Pantoprazole Sodium 40 mg 40 mg Q24H IV PUSH 07/31/16 09:00 08/01/16 09:17 (Zosyn 4.5 Gm Premix) 100 ml @ 200 mls/hr Q6H IV 07/31/16 11:00 08/01/16 11:00 (Ecotrin Ec) 81 mg DAILY PO 07/31/16 11:00 08/01/16 09:18 (Free Water) VOLUME OF WATER: ( 250 ) ML Q12HR G-TUBE 08/01/16 09:00 08/01/16 09:18 Family History Mother with diabetes, father from colon cancer.. Patient has 3 children who are alive and well. . Substance Use Tobacco: Patient smokes a pack per day x 40 years. Alcohol: History of alcohol use and abuse. Reported drinking 6 beers per day prior to these hospitalization. History of drinking 12 beers per day. Prescription med abuse: None reported. Illicits: No reported. . Psychosocial History Patient originally from [place]. Moved to [place] 29 years ago. She was , now is . Has 3 children; Joon, Jesus and Olesya. Patient with long history of EtOH use/abuse and homelessness. No service. Worked as a [employer] ([employer]) sporadically. . Spiritual/Cultural Factors No congregational affiliations reported. . Living Will: Never completed Health Care Surrogate: Never completed Durable Power of Senior Systems Analyst: Never completed Health Care Surrogate(s): No advance directives completed. Patient is . As per [place] law, healthcare surrogate decision making falls to the majority of patient's children , for which he has 3. Documented care wishes: No living will completed. . Family/friends goals: Full code at this time. Continue current medical management while family discuss goals of care. Ethical and Legal Issues No advance directives completed. Patient unable to participate in goals of care at this time secondary to clinical condition. Physical Exam Vital Signs Date Time Temp Pulse Resp B/P Pulse Ox O2 Delivery O2 Flow Rate FiO2 08/01/16 15:21 99 40 08/01/16 14:00 75 08/01/16 12:00 40 08/01/16 12:00 99.0 74 20 148/66 95 08/01/16 12:00 74 08/01/16 11:35 96 40 08/01/16 10:00 76 08/01/16 09:00 82 08/01/16 08:14 96 40 08/01/16 08:00 40 08/01/16 08:00 98.7 70 20 137/58 96 08/01/16 08:00 70 08/01/16 04:00 97.9 57 20 108/54 95 08/01/16 04:00 40 08/01/16 03:56 94 40 08/01/16 01:09 96 40 08/01/16 00:00 97.8 66 20 123/55 97 08/01/16 00:00 40 07/31/16 20:00 40 07/31/16 20:00 98.0 68 20 128/60 96 07/31/16 19:26 95 40 07/31/16 19:00 Mechanical Ventilator 07/31/16 18:22 99 100 07/31/16 18:00 82 07/31/16 16:00 82 07/31/16 16:00 40 07/31/16 16:00 98.9 82 20 160/70 99 07/31/16 08/01/16 19:00 07:00 Intake Total 178 ml 911 ml Output Total 1250 ml 900 ml Balance -1072 ml 11 ml Intake Oral 0 ml 0 ml IV Total 178 ml 306 ml Tube Feeding 485 ml Tube Irrigant 120 ml Output Urine Total 1250 ml 900 ml # Bowel Movements 0 0 Exam CONSTITUTIONAL/GENERAL: This is a thin patient resting in bed in no apparent distress. Orally intubated on mechanical ventilation. TUBES/LINES/DRAINS: ETT, OG, PIV's, Millard catheter, SCDs, bilateral soft wrist restraints. SKIN: No jaundice, rashes, or lesions. Ecchymoses on upper extremities. No wounds seen anteriorly. Skin temperature appropriate. Not diaphoretic. HEAD: Atraumatic. Normocephalic. EYES: Pupils equal and round and reactive. No scleral icterus. No injection or drainage. ENT: Hearing appears normal. Nose without bleeding or purulent drainage. Moist oral mucosa. NECK: Trachea midline. Supple, nontender. CARDIOVASCULAR: Regular rate and rhythm without murmurs, gallops, or rubs. No JVD. Peripheral pulses symmetric. RESPIRATORY/CHEST: Symmetric, unlabored respirations. Orally intubated on mechanical ventilation. Mild rhonchi anteriorly. GASTROINTESTINAL: Abdomen soft, flat, non-tender, nondistended. No guarding. Bowel sounds present. GENITOURINARY: Without palpable bladder distension. Millard catheter in place. MUSCULOSKELETAL: Extremities without clubbing, cyanosis, or edema. No mottling or clubbing. NEUROLOGICAL: Sedated. Opening the right eye to verbal stimuli. Following some simple commands with right hand such as "squeeze my hand". Left sided hemiparesis. PSYCHIATRIC: Unable to assess secondary to clinical condition. Appears calm. . Diagnostic Tests Laboratory Laboratory Tests Test 6/24/17 6/25/17 6/25/17 6/26/17 19:46 00:05 08:08 06:31 White Blood Count 7.0 TH/MM3 7.1 TH/MM3 (4.0-11.0) (4.0-11.0) Red Blood Count 3.66 MIL/MM3 3.43 MIL/MM3 (4.50-5.90) (4.50-5.90) Hemoglobin 10.9 GM/DL 10.1 GM/DL (13.0-17.0) (13.0-17.0) Hematocrit 32.4 % 30.8 % (39.0-51.0) (39.0-51.0) Mean Corpuscular Volume 88.4 FL 89.9 FL (80.0-100.0) (80.0-100.0) Mean Corpuscular Hemoglobin 29.8 PG 29.5 PG (27.0-34.0) (27.0-34.0) Mean Corpuscular Hemoglobin 33.7 % 32.8 % Concent (32.0-36.0) (32.0-36.0) Red Cell Distribution Width 17.1 % 17.8 % (11.6-17.2) (11.6-17.2) Platelet Count 225 TH/MM3 205 TH/MM3 (150-450) (150-450) Mean Platelet Volume 8.6 FL 8.4 FL (7.0-11.0) (7.0-11.0) Neutrophils (%) (Auto) 68.5 % 68.7 % (16.0-70.0) (16.0-70.0) Lymphocytes (%) (Auto) 18.5 % 18.8 % (9.0-44.0) (9.0-44.0) Monocytes (%) (Auto) 9.0 % (0.0-8.0) 8.5 % (0.0-8.0) Eosinophils (%) (Auto) 2.9 % (0.0-4.0) 3.2 % (0.0-4.0) Basophils (%) (Auto) 1.1 % (0.0-2.0) 0.8 % (0.0-2.0) Neutrophils # (Auto) 4.8 TH/MM3 4.9 TH/MM3 (1.8-7.7) (1.8-7.7) Lymphocytes # (Auto) 1.3 TH/MM3 1.3 TH/MM3 (1.0-4.8) (1.0-4.8) Monocytes # (Auto) 0.6 TH/MM3 0.6 TH/MM3 (0-0.9) (0-0.9) Eosinophils # (Auto) 0.2 TH/MM3 0.2 TH/MM3 (0-0.4) (0-0.4) Basophils # (Auto) 0.1 TH/MM3 0.1 TH/MM3 (0-0.2) (0-0.2) CBC Comment DIFF FINAL AUTO DIFF Differential Comment AUTO DIFF CONFIRMED Prothrombin Time 11.0 SEC (9.8-11.6) Prothromb Time International 1.0 RATIO Ratio Activated Partial 23.5 SEC Thromboplast Time (24.3-30.1) Sodium Level 141 MEQ/L 146 MEQ/L 146 MEQ/L (136-145) (136-145) (136-145) Potassium Level 3.5 MEQ/L 3.3 MEQ/L 4.3 MEQ/L (3.5-5.1) (3.5-5.1) (3.5-5.1) Chloride Level 105 MEQ/L 113 MEQ/L 115 MEQ/L (98-107) (98-107) (98-107) Carbon Dioxide Level 29.8 MEQ/L 25.5 MEQ/L 24.8 MEQ/L (21.0-32.0) (21.0-32.0) (21.0-32.0) Anion Gap 6 MEQ/L (5-15) 8 MEQ/L (5-15) 6 MEQ/L (5-15) Blood Urea Nitrogen 28 MG/DL (7-18) 22 MG/DL (7-18) 17 MG/DL (7-18) Creatinine 2.25 MG/DL 1.59 MG/DL 1.29 MG/DL (0.60-1.30) (0.60-1.30) (0.60-1.30) Estimat Glomerular Filtration 30 ML/MIN (>89) 45 ML/MIN (>89) 58 ML/MIN (>89) Rate Random Glucose 90 MG/DL 84 MG/DL 83 MG/DL (74-106) (74-106) (74-106) Calcium Level 8.2 MG/DL 7.8 MG/DL 8.2 MG/DL (8.5-10.1) (8.5-10.1) (8.5-10.1) Magnesium Level 2.3 MG/DL 2.0 MG/DL (1.5-2.5) (1.5-2.5) Total Creatine Kinase 331 U/L (39-308) Creatine Kinase MB 4.2 NG/ML (0.5-3.6) Creatine Kinase MB % 1.3 % (0.0-4.0) Troponin I 0.13 NG/ML 0.13 NG/ML 0.12 NG/ML (0.02-0.05) (0.02-0.05) (0.02-0.05) Ovalocytes 1+ (NORMAL) Total Bilirubin 0.2 MG/DL (0.2-1.0) Aspartate Amino Transf 23 U/L (15-37) (AST/SGOT) Alanine Aminotransferase 23 U/L (12-78) (ALT/SGPT) Alkaline Phosphatase 65 U/L (45-117) Total Protein 5.3 GM/DL (6.4-8.2) Albumin 2.6 GM/DL (3.4-5.0) Phosphorus Level 1.3 MG/DL (2.5-4.9) Test 07/31/16 07/31/16 07/31/16 07/31/16 08:08 08:10 08:30 09:56 Blood Gas Puncture Site LT RADIAL LT RADIAL Blood Gas Patient Temperature 98.6 98.6 Blood Gas HCO3 20 mmol/L 21 mmol/L (22-26) (22-26) Blood Gas Base Excess -6.9 mmol/L -3.5 mmol/L (-2-2) (-2-2) Blood Gas Oxygen Saturation 96 % (90-100) 93 % (90-100) Arterial Blood pH 7.19 7.35 (7.380-7.420) (7.380-7.420) Arterial Blood Partial 54 mmHg (38-42) 40 mmHg (38-42) Pressure CO2 Arterial Blood Partial 136 mmHg 83 mmHg Pressure O2 (61-120) (61-120) Arterial Blood Oxygen Content 14.4 Vol % 12.2 Vol % (12.0-20.0) (12.0-20.0) Arterial Blood 1.1 % (0-4) 1.5 % (0-4) Carboxyhemoglobin Arterial Blood Methemoglobin 1.4 % (0-2) 1.6 % (0-2) Blood Gas Hemoglobin 10.5 G/DL 9.3 G/DL (12.0-16.0) (12.0-16.0) Oxygen Delivery Device VENTILATOR VENTILATOR Blood Gas Ventilator Setting SEE COMMENTS SEE COMMENTS Blood Gas Inspired Oxygen 100 % 50 % Urine Color YELLOW (YELLW/STRAW) Urine Turbidity HAZY (CLEAR) Urine pH 5.5 (5.0-8.5) Urine Specific [place] 1.012 (1.002-1.035) Urine Protein 100 mg/dL (NEG-TRACE) Urine Glucose (UA) 1000 mg/dL (NEG) Urine Ketones NEG mg/dL (NEG) Urine Occult Blood MOD (NEG) Urine Nitrite NEG (NEG) Urine Bilirubin NEG (NEG) Urine Urobilinogen LESS THAN 2.0 MG/DL (LESS THAN 2.0) Urine Leukocyte Esterase NEG (NEG) Urine RBC 1 /hpf (0-3) Urine WBC 2 /hpf (0-5) Urine Squamous Epithelial 1 /hpf (0-5) Cells Urine Amorphous Sediment RARE Urine Bacteria OCC /hpf (NONE) Urine Hyaline Casts 7 /lpf (RARE) Urine Mucus FEW /lpf (OCC) Microscopic Urinalysis Comment CATH-CULTURE IND Nasal Screen MRSA (PCR) MRSA NOT DETECTED (NOT DETECT) Test 07/31/16 07/31/16 08/01/16 08/01/16 15:50 21:25 04:28 04:30 White Blood Count 11.7 TH/MM3 9.1 TH/MM3 (4.0-11.0) (4.0-11.0) Red Blood Count 3.20 MIL/MM3 3.16 MIL/MM3 (4.50-5.90) (4.50-5.90) Hemoglobin 9.3 GM/DL 9.4 GM/DL (13.0-17.0) (13.0-17.0) Hematocrit 29.2 % 28.3 % (39.0-51.0) (39.0-51.0) Mean Corpuscular Volume 91.2 FL 89.7 FL (80.0-100.0) (80.0-100.0) Mean Corpuscular Hemoglobin 29.1 PG 29.7 PG (27.0-34.0) (27.0-34.0) Mean Corpuscular Hemoglobin 31.8 % 33.1 % Concent (32.0-36.0) (32.0-36.0) Red Cell Distribution Width 17.3 % 17.0 % (11.6-17.2) (11.6-17.2) Platelet Count 179 TH/MM3 158 TH/MM3 (150-450) (150-450) Mean Platelet Volume 9.0 FL 8.9 FL (7.0-11.0) (7.0-11.0) Neutrophils (%) (Auto) 84.0 % 73.1 % (16.0-70.0) (16.0-70.0) Lymphocytes (%) (Auto) 9.1 % 16.5 % (9.0-44.0) (9.0-44.0) Monocytes (%) (Auto) 5.9 % (0.0-8.0) 7.7 % (0.0-8.0) Eosinophils (%) (Auto) 0.4 % (0.0-4.0) 1.5 % (0.0-4.0) Basophils (%) (Auto) 0.6 % (0.0-2.0) 1.2 % (0.0-2.0) Neutrophils # (Auto) 9.8 TH/MM3 6.7 TH/MM3 (1.8-7.7) (1.8-7.7) Lymphocytes # (Auto) 1.1 TH/MM3 1.5 TH/MM3 (1.0-4.8) (1.0-4.8) Monocytes # (Auto) 0.7 TH/MM3 0.7 TH/MM3 (0-0.9) (0-0.9) Eosinophils # (Auto) 0.0 TH/MM3 0.1 TH/MM3 (0-0.4) (0-0.4) Basophils # (Auto) 0.1 TH/MM3 0.1 TH/MM3 (0-0.2) (0-0.2) CBC Comment DIFF FINAL AUTO DIFF Differential Comment AUTO DIFF CONFIRMED Sodium Level 145 MEQ/L 147 MEQ/L (136-145) (136-145) Potassium Level 3.9 MEQ/L 4.1 MEQ/L (3.5-5.1) (3.5-5.1) Chloride Level 113 MEQ/L 114 MEQ/L (98-107) (98-107) Carbon Dioxide Level 27.1 MEQ/L 26.7 MEQ/L (21.0-32.0) (21.0-32.0) Anion Gap 5 MEQ/L (5-15) 6 MEQ/L (5-15) Blood Urea Nitrogen 18 MG/DL (7-18) 23 MG/DL (7-18) Creatinine 1.42 MG/DL 1.67 MG/DL (0.60-1.30) (0.60-1.30) Estimat Glomerular Filtration 52 ML/MIN (>89) 43 ML/MIN (>89) Rate Random Glucose 79 MG/DL 121 MG/DL (74-106) (74-106) Calcium Level 7.6 MG/DL 8.0 MG/DL (8.5-10.1) (8.5-10.1) Phosphorus Level 1.6 MG/DL 2.7 MG/DL (2.5-4.9) (2.5-4.9) Magnesium Level 1.6 MG/DL (1.5-2.5) Total Bilirubin 0.4 MG/DL (0.2-1.0) Aspartate Amino Transf 33 U/L (15-37) (AST/SGOT) Alanine Aminotransferase 21 U/L (12-78) (ALT/SGPT) Alkaline Phosphatase 72 U/L (45-117) Total Creatine Kinase 211 U/L (39-308) Troponin I 3.45 NG/ML 2.21 NG/ML 2.45 NG/ML (0.02-0.05) (0.02-0.05) (0.02-0.05) Total Protein 5.3 GM/DL (6.4-8.2) Albumin 2.3 GM/DL (3.4-5.0) Hemoglobin A1c 6.3 % (4.3-6.0) Triglycerides Level 78 MG/DL (42-150) Cholesterol Level 135 MG/DL (120-200) LDL Cholesterol 82 MG/DL (0-99) HDL Cholesterol 37.3 MG/DL (40.0-60.0) Cholesterol/HDL Ratio 3.61 RATIO Test 08/01/16 10:15 Troponin I 1.74 NG/ML (0.02-0.05) Result Diagram: 08/01/16 0428 08/01/16 0430 Microbiology Microbiology Date/Time Procedure Status Source Growth 07/31/16 08:10 Gram Stain - Final Resulted Sputum Endotracheal 07/31/16 08:10 Sputum Culture - Preliminary Resulted Sputum Endotracheal IMMATURE GROWTH - REINCUBATE 07/31/16 08:10 Urine Culture - Preliminary Resulted Urine Catheterized Urine NO GROWTH IN 24 HOURS. Imaging Last Impressions Neck Magnetic Resonance Angiography 07/31/16 0000 Signed Impressions: Service Date/Time: Sunday, July 31, 2016 17:46 - CONCLUSION: Total occlusion of the right internal carotid artery. Slightly less than 50%% eccentric stenosis of the proximal left internal carotid artery. High-grade eccentric stenosis of the left subclavian artery proximal to a diminutive left vertebral artery. Lacho Morel MD Head Magnetic Resonance Angiography 07/31/16 0000 Signed Impressions: Service Date/Time: Sunday, July 31, 2016 17:46 - CONCLUSION: 1. Occlusion of the right internal carotid artery. 2. Multiple missing vessels distal to the right MCA trifurcation consistent with occlusion. Morales Miller MD Head CT 07/31/16 0000 Signed Impressions: Service Date/Time: Sunday, July 31, 2016 09:22 - CONCLUSION: Likely evolving right hemispheric strokes. No evidence of hemorrhage. Lacho Morel MD Chest X-Ray 07/31/16 0000 Signed Impressions: Service Date/Time: Sunday, July 31, 2016 07:49 - CONCLUSION: 1. ETT in good position. 2. Interval development of diffuse bilateral airspace disease with small right and [id number] left pleural effusions. Differential considerations include pulmonary edema versus diffuse infection versus developing ARDS. Doug Valencia MD Brain MRI 07/31/16 0000 Signed Impressions: Service Date/Time: Sunday, July 31, 2016 17:46 - CONCLUSION: 1. Multiple areas of restricted diffusion involving the right frontal and parietal lobes consistent with areas of acute to subacute infarction. 2. No evidence of hemorrhage, mass effect or midline shift. 3. Old area of encephalomalacia involving the right inferior frontal lobe. Morales Miller MD Patient/Family Conference Present at Family Conference: Justin Dupree. Family Conference Time (mins): 36 Family Conference Location: Bedside Issues Discussed: * Palliative care role, purpose, approach * Additional medical, psychosocial, and spiritual history * Patients general health, functional status, and cognitive changes in the months leading up to the current hospitalization * Family's understanding of the current medical problems -respiratory failure, worsening kidney failure, stroke, obstruction of bilateral carotid arteries. * Family's understanding of prognosis * Patients goals of care as best understood from advance directives and/or conversations and/or values * Current medical treatment options and benefits/burdens of those options - tracheostomy, PEG tube, renal replacement therapy. * Questions answered to the best of my ability * Palliative care contact information provided * Risks, benefits and limitations of CPR given patient's clinical condition and prognosis. . Assessment and Plan Disease Oriented Problem List: (1) Acute respiratory failure (2) CVA (cerebral vascular accident) (3) Acute kidney injury (4) Elevated troponin (5) Encephalopathy Symptom Scale: (1) Shortness of breath 0-10 Scale: Unable to quantify Comment: Acute respiratory failure. Remains on ventilator support. (2) Debility 0-10 Scale: Unable to quantify Comment: Secondary to acute illness. Pertinent Non-Medical Issues Psychosocial: Patient is . He has 3 children. History of homelessness. Spiritual: No congregational affiliation. Legal: No advance directives completed. Ethical issues impacting care: No advance directives completed. . Important Contacts Son Joon Porter [phone], [phone]. Son Jesus Porter . Daughter -unknown name or phone number. Pending information. . Prognosis Mr. Porter is a 56 y/o male with a medical history of hypertension, alcohol abuse, tobacco abuse, anxiety, depression, hyperlipidemia. Patient presented to ED on 07/29/16 via EMS secondary to dizziness and hypertension. Patient was admitted for further evaluation and management of dehydration, renal failure and chronic elevation of troponin. Patient's clinical condition complicated by respiratory failure requiring intubation and mechanical ventilation, development of right frontal/parietal CVA acute to subacute. Further workup revealing right internal carotid artery Occluded. Left ICA 50% Occluded. Not a surgical candidate. Renal function worsening. Patient is a very high risk for further complications, continue decline and . . Code Status: Full Code Plan * CODE STATUS: no code status previously recorded. Discussed risks, benefits and limitations of CPR with patient's son and given patient's current clinical condition. Son will like to discuss further with additional family members. Patient FULL code at this time. * HEALTHCARE DECISION-MAKING: Patient unable to participate in medical decision- making at this time secondary to clinical condition, intubated on mechanical ventilation, sedated. No advance directives completed. Patient is . As per [place] law, healthcare surrogate decision making falls to the majority of patient's children, for which he has 3. * GOALS OF CARE: Family electing to continue current medical management while ongoing GOC conversation. Met with patient's son Joon. Reviewed patient's past medical/social history and events leading to this hospitalization, clinical course and current medical management. Reviewed results of brain MRI revealed right frontal/parietal CVA acute to subacute. MRA of head and neck revealing right internal carotid artery Occluded. Left ICA 50% Occluded, not a surgical candidate. Reviewed concerns of patient's worsening renal function. Reviewed with son likely trajectory of illness to include possible trach, PEG and long-term placement. Reviewed that given his worsening kidney function, patient may also require renal replacement therapy. Reviewed risks, benefits and limitations of CPR given patient's clinical condition. Discussed that within the next few days, family may be presented with difficult medical decisions. Son tells me that he will like to get some guidance and support from his extended family to include patient's brother and sister. Son Yusuf to also participate in medical decision-making, daughter Olesya resides in [place] and has not been in contact with her siblings for many years. No contact info for her. Palliative care has offered to arrange a family meeting to include extended family members. Palliative care will continue to follow-up. * SYMPTOMS: = Shortness of breath, multifactorial. Patient remains intubated on mechanical ventilation. = Debility: Secondary to acute illness, prolonged hospitalization. = Pain: Secondary to acute illness and prolonged hospitalization. Currently on fentanyl drip. Patient appears calm at time of my visit and denied pain. * Case discussed with bedside RN. * Palliative care contact information has been provided to patient's sons. * Palliative care will continue to follow-up with patient and family for further clarifications of goals of care as patient's clinical course continues to evolve. . Time Spent Total Floor Time (mins): 75 (Total time to include review and summarization of available medical records to include prior hospitalization, physical exam, goals of care conversation with patient's son and case discussion with bedside RN.) Thank you for the opportunity to participate in the care of Mr. Porter. Attestation To help prompt me to consider important information that might be impacting today's encounter and assessment, information from prior notes written by myself or my colleagues may have been "brought forward" into today's note. My signature on this note, however, is an attestation that I personally performed the exam, history, and/or decision-making noted today, and, unless otherwise indicated, the interactions with patient, family, and staff as well as the review of records all occurred today. I also attest that the listed assessment and stated plan reflect my best clinical judgment today based on the combination of historical information, prior notes, and today's exam/ interactions. When time spent is documented, it refers only to time spent today by the signer, or if indicated, combined time spent today by collaborating physician/nurse practitioner. Jumana Batres Aug 01, 2016 16:35
--- NOTE | 2016-08-01 16:49 | EKG ---
Date Performed: 07/31/2016 Time Performed: 19:54:40 PTAGE: 56 years EKG: Sinus rhythm LEFT VENTRICULAR HYPERTROPHY AND ST-T CHANGE ABNORMAL ECG Consider anterolateral and inferior ischem ia PREVIOUS TRACING : 07/29/2016 18.54 DOCTOR: David Vera Interpretating Date/Time 08/01/2016 16:47:48
--- NOTE | 2016-08-01 16:51 | MB ---
cc: ANTONY STODDARD DATE OF CONSULTATION 08/01/16 REASON FOR CONSULTATION Abnormal troponin levels. HISTORY OF PRESENT ILLNESS History is unobtainable from the patient who is intubated and sedated. A small amount of history is obtained from his son who is at bedside. The patient is a 56-year-old white male with a history of hypertension, hyperlipidemia, alcohol abuse, recently diagnosed mild cardiomyopathy with ejection fraction of 45-50% who apparently was brought to the hospital feeling lightheaded and weak. He was found to be mildly hypotensive and felt to be dehydrated. Initially his creatinine was 2.25. Cardiac enzymes have been found to be abnormal. As far as his son knows, the patient has had no definite recent chest pains or shortness of breath. A myocardial perfusion scan was obtained during his last admission here and found to be normal. Echo that admission did show mildly reduced ejection fraction of 45-50%. PAST MEDICAL HISTORY As above. PAST SURGICAL HISTORY 1. Right foot surgery. 2. Right lung wedge resection and pleurodesis 2008 for persistent right pneumothorax 3. COPD. MEDICATIONS Cardiac medications at home reportedly included 1. Aspirin 81 mg daily. 2. Amlodipine 10 mg daily. 3. Carvedilol 3.125 mg b.i.d. 4. Furosemide 20 mg b.i.d. 5. Lisinopril 10 mg daily. 6. Klor-Con 10 Xiomy once daily. 7. Lipitor 20 mg q.h.s. ALLERGIES NO KNOWN DRUG ALLERGIES. FAMILY HISTORY There is no significant family history of cardiac disease or sudden . SOCIAL HISTORY The patient smokes about a pack of cigarettes per day. He drinks occasional alcohol. REVIEW OF SYSTEMS As in the history of present illness, otherwise, currently unobtainable. PHYSICAL EXAMINATION VITAL SIGNS: Blood pressure 108/54 with a pulse of 57, respirations 20. GENERAL: He is a well-developed, thin white male currently intubated and sedated. HEENT: Jugular venous pressure is normal. Carotid pulses are 2+ bilaterally and without bruits. LUNGS: Examination of the chest reveals clear lung braswell anteriorly. CARDIAC: He has a regular rhythm and rate without S3-S4 or murmur. ABDOMEN: He has a soft abdomen. Bowel sounds are present. There is no definite hepatosplenomegaly. EXTREMITIES: No clubbing, cyanosis or edema. CARDIOLOGY STUDIES EKG shows sinus bradycardia, left ventricular hypertrophy with repolarization abnormalities. LABORATORY DATA Troponin 3.45, BUN 23, creatinine 1.67, potassium 4.1, total cholesterol 135, LDL 82, HDL 37, triglycerides 78, INR 1.0, WBC 9.1, hemoglobin 9.4, platelets 158. IMAGING STUDIES Chest x-ray shows bilateral airspace disease with small right and small to medium size left pleural effusions. IMPRESSION Abnormal cardiac enzymes in this 56-year-old white male with a history of hypertension, mild cardiomyopathy, hyperlipidemia, alcohol abuse admitted with acute renal insufficiency, dehydration, possible acute or subacute right-sided frontal and parietal lobe CVA. The elevations in the troponin levels are somewhat confounded by his renal insufficiency. CK levels are negative for myocardial infarction. According to the patient's son, he has had no definite recent chest pains. Lastly, a myocardial perfusion scan last month showed normal perfusion of the left ventricle. At this time, he is not a good candidate for invasive cardiac evaluation with his renal insufficiency as well as possible acute or subacute CVA. Blood pressures are somewhat too low to resume beta terry therapy. RECOMMENDATIONS 1. Resume beta terry therapy when his blood pressures are better. 2. Continue daily aspirin. 3. Repeat his echo. ADDENDUM The patient also had a carotid/neck MRA today showing total occlusion of the right internal carotid artery, 50% eccentric stenosis of the proximal left internal carotid artery, as well as high-grade stenosis of the left subclavian proximal to a diminutive left vertebral artery. MD EKATERINA Abdalla/ /10:39 AM /7:52 AM MTDChoco
--- NOTE | 2016-08-01 17:07 | RADRPT ---
EXAM DATE/TIME: 08/01/2016 16:47 [facility] COMPARISON: MRI BRAIN W/O CONTRAST, July 31, 2016, 17:46. CT BRAIN W/O CONTRAST, July 31, 2016, 9:22. INDICATIONS : Evaluate for dizzinessand syncope. RADIATION DOSE: 56.35 CTDIvol (mGy) MEDICAL HISTORY : Cardiovascular disease. Hypertension. SURGICAL HISTORY : Splenectomy. ENCOUNTER: Initial ACUITY: 1 day PAIN SCALE: 6/10 LOCATION: Bilateral cranial TECHNIQUE: Multiple contiguous axial images were obtained of the head. Using automated exposure control and adj ustment of the mA and/or kV according to patient size, radiation dose was kept as low as reasonably a chievable to obtain optimal diagnostic quality images. DICOM format image data is available electro nically for review and comparison. FINDINGS: Stable right frontal lobe is aforementioned defect. Evolving infarcts in the right frontal and pariet al lobes. No evidence for hemorrhagic transformation. No significant intra-or extra-axial hemorrhage. Ventricles are stable in size and midline. Basilar cisterns are maintained. There is an oral airway device andNGT in placetial thickening is noted in the left maxillary sinus. CONCLUSION: 1. Evolving right frontal and parietal lobe infarcts without evidence for hemorrhagic transformation or intercurrent hemorrhage. 2. Otherwise, no significant interval change. Doug Valencia MD on August 01, 2016 at 16:59 Board Certified Radiologist. This report was verified electronically.
--- NOTE | 2016-08-01 19:37 | MB ---
cc: NIKHIL CASTELLANO MD DATE OF CONSULTATION 08/01/2016 REASON FOR CONSULTATION Stroke. HISTORY OF PRESENT ILLNESS Mr. Martin is a 56-year-old male who is currently intubated and sedated. The past medical history is obtained from medical records and ICU medical staff. The patient has past medical history of ethanol abuse, tobacco abuse, hypertension, hyperlipidemia, depression, anxiety disorder who was admitted to the [facility] for management of acute renal failure, dehydration and alcohol withdrawal. The patient was intubated as he was found to be hypoxic. Helicat was called and in respiratory distress with altered mental status. MRI of the brain revealed multiple areas of restricted diffusion involving the right frontal and parietal lobes consistent with areas of acute to subacute infarction. No evidence of hemorrhage, mass effect or midline shift. Old area of encephalomalacia involving the right inferior frontal lobe. Head CT scan without contrast revealed an evolving right hemispheric stroke with no evidence of hemorrhage. Head MRA without contrast revealed occlusion of the right ICA. Multiple missing vessels distal to the right MCA trifurcation consistent with occlusion. Neck MRA / MRA carotids with contrast revealed total occlusion of the right ICA. Slightly less than 50% eccentric stenosis of the proximal left ICA. High-grade eccentric stenosis of the left subclavian artery proximal to a diminutive left vertebral artery. REVIEW OF SYSTEMS Unable to obtain due to the patient's condition. However, the 12-point review of systems is obtained from the medical records and is negative except for what is stated in the HPI. PAST MEDICAL HISTORY 1. Hypertension. 2. Hyperlipidemia. 3. Depression. 4. Anxiety. PAST SURGICAL HISTORY 1. Right ankle surgery. 2. Retinal detachment. ALLERGIES No known allergies. FAMILY HISTORY Noncontributory. SOCIAL HISTORY As per medical records active smoker and drinker. MEDICATIONS 1. Lipitor. 2. Heparin. 3. Folic. 4. Thiamine. 5. Multivitamins. 6. IV fluids. PHYSICAL EXAMINATION GENERAL: Intubated and sedated. HEENT: Atraumatic, normocephalic. Pupils are equal, round reacting to light. NECK: Supple. Trachea in the midline. Oral intubated. CARDIOVASCULAR: Sinus tachycardia. No murmurs. RESPIRATORY: Bilateral equal air entry. No wheezes. ABDOMEN: Soft, nontender. EXTREMITIES: No cyanosis, clubbing or edema. NEUROLOGIC: Intubated and sedated. Pupils 2 mm bilateral, sluggishly reacting to light. Grimaces to painful stimuli by moving the right upper and lower extremity. Occasionally spontaneous eye opening. LABORATORY DATA White blood cells 9.1, hemoglobin 9.4, platelets 158. Sodium 147, chloride 114, BUN 23, creatinine /. A1c 6.3%. elevated troponin at 1.74 trending down. Lipid profile within normal. IMAGING - Head CT scan without contrast revealed likely evolving right hemispheric stroke. No evidence of hemorrhage. - Brain MRI revealed multiple areas of restricted diffusion involving the right frontal and parietal lobes consistent with areas of acute subacute infarction. No evidence of hemorrhage, mass effect or midline shift. Old area of encephalomalacia involving the right inferior frontal lobe. - Head MRA revealed occlusion of the right ICA with multiple missing vessels distal to the right MCA trifurcation consistent with occlusion. - Neck MRA/ Carotid MRA revealed total occlusion of the right ICA. Slightly less than 50% eccentric stenosis of the proximal left ICA. High-grade extrinsic stenosis of the left subclavian artery proximal to a diminutive left vertebral artery. DIAGNOSTIC IMPRESSION 1. Acute ischemic stroke. 2. Multiple intracranial stenoses. 3. Occlusion of the right ICA. 4. Hypertension. 5. SHANTELLE. 6. History of ethanol and tobacco abuse. 7. Acute hypoxemic respiratory failure. 8. Elevation in the troponin. PLAN 1. Neurological checks q. one hourly. 2. Followup Head CT scan. 3. [facility] protocol. 4. Aspirin 81 mg. 5. There is no role of any surgical intervention at this time. 6. There is no indication for starting anticoagulation. 7. Aggressive supportive medical treatment. 8. Cardiac echo. 9. DVT prophylaxis. 10. GI prophylaxis. Further recommendation will be based on the clinical course. Thank you for the opportunity to participate in the care of your patient. MD FRANCIS Reeves/IAM /2:30 PM /7:21 PM SARA
[2016-08-01] MEDS: ATORVASTATIN 20 MG TAB PO SCH (21:02)
[2016-08-02] VITALS (15 sets, daily range): BP systolic 165–208; BP diastolic 72–89; PULSE 58–87; RESP 13–32; TEMP 98.2–99; O2SAT 92–100
[2016-08-02] MEDS: RESP: ALBUTEROL 2.5 MG/IPRATROPIUM 0.5 MG NEB (SCH) NEB ×4 (03:36→21:18)
[2016-08-02] MEDS: INSULIN NovoLIN REGULAR SUPPLEMENTAL SCALE SQ SCH ×4 (04:00→20:00)
[2016-08-02] MEDS: CHLORHEXIDINE GLUCONATE 2 % 1 PACK (2 CLOTHS)(taper/protocol) TOPICAL SCH (04:00)
[2016-08-02] MEDS: PIPERACIL-TAZO 4.5 GM PREMIX 100 ML IV SCH ×4 (04:52→21:54)
[2016-08-02] MEDS: LABETALOL HCL 100 MG/20 ML VIAL IV PUSH PRN ×3 (04:58→16:12)
[2016-08-02 05:36] LABS: AUTOMATED NEUTROPHIL # 6.7 TH/MM3 (1.8-7.7); BASOPHIL % 0.4 % (0.0-2.0); EOSINOPHIL # 0.1 TH/MM3 (0-0.4); EOSINOPHIL % 0.8 % (0.0-4.0); HEMATOCRIT 28.3 % (39.0-51.0); HEMO FLAGS DIFF FINAL; LYMPHOCYTE # 1.4 TH/MM3 (1.0-4.8); MEAN CORPUSCULAR HEMOGLOBIN 30.1 PG (27.0-34.0); MEAN CORPUSCULAR HGB CONC 33.4 % (32.0-36.0); MONO % 8.1 % (0.0-8.0); NEUT % 74.7 % (16.0-70.0); PLATELET COUNT 163 TH/MM3 (150-450); RED BLOOD COUNT 3.14 MIL/MM3 (4.50-5.90); RED CELL DISTRIBUTION WIDTH 17.2 % (11.6-17.2)
[2016-08-02 06:10] LABS: BICARBONATE 27.1 MEQ/L (21.0-32.0); MAGNESIUM 2.4 MG/DL (1.5-2.5)
--- NOTE | 2016-08-02 07:39 | PD.CARD.PN ---
Subjective Subjective Remarks Intubated. Sedated. Objective Medications Item Value Date Time Carvedilol 3.125 mg 08/02/16 0900 (Coreg) Q12HR/PO Aspirin 81 mg 07/31/16 1100 (Ecotrin Ec) DAILY/PO 08/01/16 0918 Atorvastatin 20 mg 07/30/162099 Calcium HS/PO 08/01/162101 (Lipitor) Heparin Sodium 5,000 units 07/30/162099 (Porcine) Q12HR/SQ 08/01/162101 (Heparin Inj) Vital Signs / I&O Vital Signs Date Time Temp Pulse Resp B/P Pulse Ox O2 Delivery O2 Flow Rate FiO2 08/02/16 04:09 99 35 08/02/16 04:00 99.0 84 20 197/87 98 08/02/16 04:00 40 08/02/16 01:09 100 40 08/02/16 00:00 98.9 69 20 188/80 100 08/02/16 00:00 40 08/01/16 22:10 99 40 08/01/16 20:00 40 08/01/16 20:00 99.1 77 20 188/81 99 08/01/16 19:55 99 40 08/01/16 18:00 74 08/01/16 16:35 100 100 08/01/16 16:00 80 08/01/16 16:00 99.2 80 20 160/70 97 08/01/16 16:00 40 08/01/16 15:21 99 40 08/01/16 14:00 75 08/01/16 12:00 40 08/01/16 12:00 99.0 74 20 148/66 95 08/01/16 12:00 74 08/01/16 11:35 96 40 08/01/16 10:00 76 08/01/16 09:00 82 08/01/16 08:14 96 40 08/01/16 08:00 40 08/01/16 08:00 98.7 70 20 137/58 96 08/01/16 08:00 70 I/O 08/01/16 08/01/16 08/01/16 08/02/16 08/02/16 08/02/16 07:00 15:00 23:00 07:00 15:00 23:00 Intake Total 448 ml 811 ml 684 ml 459 ml Output Total 400 ml 425 ml 400 ml 300 ml Balance 48 ml 386 ml 284 ml 159 ml Intake Oral 0 ml 0 ml 0 ml IV Total 135 ml 261 ml 152 ml 178 ml Tube Feeding 253 ml 430 ml 282 ml 221 ml Tube Irrigant 60 ml Other 120 ml 250 ml 60 ml Output Urine Total 400 ml 425 ml 400 ml 300 ml # Bowel Movements 0 0 1 Physical Exam GENERAL: Intubated. Sedated. HEENT: Jugular venous pressure is normal. CHEST: Lungs clear to auscultation anteriorly. CARDIAC: Regular rate and rhythm without S3, S4. II/ systolic murmur lower left sternal border. ABDOMEN: Soft, no hepatosplenomegaly. Bowel sounds present. EXTREMITIES: No clubbing, cyanosis, or edema. Laboratory Laboratory Tests Test 08/01/16 08/02/16 10:15 04:33 Troponin I 1.74 NG/ML White Blood Count 9.0 TH/MM3 Red Blood Count 3.14 MIL/MM3 Hemoglobin 9.5 GM/DL Hematocrit 28.3 % Mean Corpuscular Volume 90.0 FL Mean Corpuscular Hemoglobin 30.1 PG Mean Corpuscular Hemoglobin 33.4 % Concent Red Cell Distribution Width 17.2 % Platelet Count 163 TH/MM3 Mean Platelet Volume 9.4 FL Neutrophils (%) (Auto) 74.7 % Lymphocytes (%) (Auto) 16.0 % Monocytes (%) (Auto) 8.1 % Eosinophils (%) (Auto) 0.8 % Basophils (%) (Auto) 0.4 % Neutrophils # (Auto) 6.7 TH/MM3 Lymphocytes # (Auto) 1.4 TH/MM3 Monocytes # (Auto) 0.7 TH/MM3 Eosinophils # (Auto) 0.1 TH/MM3 Basophils # (Auto) 0.0 TH/MM3 CBC Comment DIFF FINAL Differential Comment Sodium Level 148 MEQ/L Potassium Level 4.0 MEQ/L Chloride Level 115 MEQ/L Carbon Dioxide Level 27.1 MEQ/L Anion Gap 6 MEQ/L Blood Urea Nitrogen 30 MG/DL Creatinine 1.58 MG/DL Estimat Glomerular Filtration 46 ML/MIN Rate Random Glucose 133 MG/DL Calcium Level 8.6 MG/DL Phosphorus Level 2.6 MG/DL Magnesium Level 2.4 MG/DL Assessment and Plan Problem List: (1) Elevated troponin Assessment and Plan: Troponin levels trending downward. EF down to roughly 30- 35% by most recent echo with global hypokinesis. Patient poor candidate for invasive cardiac evaluation at this time with his renal insufficiency, acute CVA , poor medical compliance. Patient's recent myocardial perfusion scan also showed no defects. REC conservative management increase carvedilol dosing; no TAE-I or ARB with his renal insufficiency continue daily aspirin (2) Hypertension Assessment and Plan: Elevated BP's. Will increase carvedilol dosing. (3) Cardiomyopathy Assessment and Plan: EF down to approximately 30-35% by echo. Appears to have global hypokinesis. Suspect his cardiomyopathy is mostly non-ischemic in etiology. Probable CHF by CXR. REC diuresis continue beta terry; no TAE-I or ARB with his renal insufficiency (4) Hyperlipidemia Assessment and Plan: Overall suboptimal lipid profile. Rec increase atorvastatin dosing. Code Status full code Problem Qualifiers (1) Hypertension: Qualified Code: I10 - Essential hypertension (2) Cardiomyopathy: Qualified Code: I42.0 - Dilated cardiomyopathy (3) Hyperlipidemia: Qualified Code: E78.2 - Mixed hyperlipidemia Gio Nuno MD Aug 02, 2016 07:39
[2016-08-02] MEDS: FREE WATER G-TUBE SCH ×3 (09:00→21:00)
[2016-08-02] MEDS ORDERED: FUROSEMIDE 40 MG/4 ML VIAL IV PUSH SCH (09:00)
[2016-08-02] MEDS ORDERED: CARVEDILOL 3.125 MG TAB PO SCH (09:00)
[2016-08-02] MEDS: PANTOPRAZOLE SODIUM 40 MG VIAL IV PUSH SCH (09:44)
[2016-08-02] MEDS: fentaNYL DRIP 250 ML IV SCH (09:44)
[2016-08-02] MEDS: CARVEDILOL 6.25 MG TAB PO SCH ×3 (09:45→20:03)
[2016-08-02] MEDS: THIAMINE HCL 100 MG TAB PO SCH (09:45)
[2016-08-02] MEDS: CHLORHEXIDINE 0.12% (ORAL KIT) 15 ML CUP MT SCH ×2 (09:45→20:00)
[2016-08-02] MEDS: HEPARIN SODIUM - SQ 10,000 UNITS/ML VIAL SQ SCH ×2 (09:45→20:02)
[2016-08-02] MEDS: FOLIC ACID 1 MG TAB PO SCH (09:45)
[2016-08-02] MEDS: DOCUSATE SODIUM 50 MG/SENNA 8.6 MG TAB PO SCH ×2 (09:45→20:03)
[2016-08-02] MEDS: MULTIVITAMINS/MINERALS THERAPEUTIC TAB PO SCH (09:45)
[2016-08-02] MEDS: SODIUM CHLORIDE 0.9% FLUSH 10 ML FLUSH IV FLUSH SCH ×2 (09:46→20:02)
[2016-08-02] MEDS: ASPIRIN EC 81 MG TABEC PO SCH (09:50)
--- NOTE | 2016-08-02 11:35 | HHI.PR ---
Review/Management Diagnosis 1. Acute ischemic stroke. 2. Multiple intracranial stenoses. 3. Occlusion of the right ICA. 4. Hypertension. 5. SHANTELLE. 6. History of ethanol and tobacco abuse. 7. Acute hypoxemic respiratory failure. 8. Elevation in the troponin. Plan 1. Neurological checks q. one hourly. 2. CIWA protocol. 3. Increase Aspirin to 325 mg, if no medical contraindication 4. There is no role of any surgical intervention for the carotid occlusion. 5. There is no indication for starting anticoagulation. 6. Aggressive supportive medical treatment. 7. DVT prophylaxis. 8. GI prophylaxis. Diagnosis/Plan: Subjective Subjective Comments No acute events reported overnight A follow up head CT scan revealed an eveloving acute ischemic stroke with no hemoorhagic Active Medications Current Medications Medications (Trade) Dose Ordered Sig/Mohit Route Start Time Stop Time Status Last Admin (Folate) 1 mg DAILY PO 07/30/16 09:00 08/04/16 08:59 08/02/16 09:45 (Vitamin B1) 100 mg DAILY PO 07/30/16 09:00 08/02/16 09:45 (Theragran M Tab) 1 tab DAILY PO 07/30/16 09:00 08/04/16 08:59 08/02/16 09:45 (Romazicon Inj) 0.2 mg Q1M PRN IV PUSH 07/29/16 21:15 (Ativan) 1 mg Q4H PRN PO 07/29/16 21:15 (Ativan Inj) 1 mg Q4H PRN IV PUSH 07/29/16 21:15 (Ativan) 2 mg Q2H PRN PO 07/29/16 21:15 (Ativan Inj) 2 mg Q2H PRN IV PUSH 07/29/16 21:15 07/31/16 07:15 (Ativan Inj) 2 mg Q1H PRN IV PUSH 07/29/16 21:15 (Ativan Inj) 2 mg Q15M PRN IV PUSH 07/29/16 21:15 (Haldol Inj) 2 mg Q15M PRN IM 07/29/16 21:15 (NS Flush) 2 ml UNSCH PRN IV FLUSH 07/29/16 21:15 07/31/16 08:23 (NS Flush) 2 ml BID IV FLUSH 07/30/16 09:00 08/02/16 09:46 (Zofran Inj) 4 mg Q6H PRN IVP 07/29/16 21:15 (Tylenol) 650 mg Q6H PRN PO 07/29/16 21:15 (Farley 5-325 Mg) 1 tab Q4H PRN PO 07/29/16 21:15 07/30/16 16:38 (Morphine Inj) 2 mg Q3H PRN IV 07/29/16 21:15 (Kajal-Colace) 1 tab BID PO 07/30/16 09:00 08/02/16 09:45 (Milk Of Magnesia Liq) 30 ml Q12H PRN PO 07/29/16 21:15 (Senokot) 17.2 mg Q12H PRN PO 07/29/16 21:15 (Dulcolax Supp) 10 mg DAILY PRN RECTAL 07/29/16 21:15 (Lactulose Liq) 30 ml DAILY PRN PO 07/29/16 21:15 Heparin Sodium (Porcine) 5000 units 5,000 units Q12HR SQ 07/30/16 21:00 08/02/16 09:45 (Diprivan 1000 Mg/100ml Inj) 100 ml @ 0 mls/hr TITRATE IV 07/31/16 08:00 07/31/16 08:26 (D50w (Vial) Inj) 50 ml UNSCH PRN IV 07/31/16 08:00 Glucagon 1 mg 1 mg UNSCH PRN OTHER 07/31/16 08:00 Potassium Chloride 100 ml @ 50 mls/hr Q2H PRN IV 07/31/16 08:00 (KCl 20 Meq Premix Inj) 100 ml @ 50 mls/hr Q2H PRN IV 07/31/16 08:00 Potassium Bicarb/ Potassium Chloride 50 meq 50 meq UNSCH PRN PO 07/31/16 08:00 Potassium Chloride 100 ml @ 25 mls/hr UNSCH PRN IV 07/31/16 08:00 Potassium Chloride 100 ml @ 50 mls/hr Q2H PRN IV 07/31/16 08:00 (Magnesium Sulfate Inj/NS Inj) 100 ml @ 50 mls/hr UNSCH PRN IV 07/31/16 08:00 Magnesium Oxide 800 mg 800 mg UNSCH PRN PO 07/31/16 08:00 (Magnesium Sulfate Inj/NS Inj) 100 ml @ 50 mls/hr UNSCH PRN IV 07/31/16 08:00 Potassium Phosphate 2000 mg 2,000 mg Q4H PRN PO 07/31/16 08:00 (Sodium Phosphate Inj/NS 250 ml Inj) 250 ml @ 42 mls/hr UNSCH PRN IV 07/31/16 08:00 Potassium Phosphate 2000 mg 2,000 mg UNSCH PRN PO/TUBE 07/31/16 08:00 (Potassium Phosphate Inj/NS 250 ml Inj) 260 ml @ 42 mls/hr UNSCH PRN IV 07/31/16 08:00 (Peridex 0.12% Liq) 15 ml BID@08,20 MT 07/31/16 08:00 08/02/16 09:45 Miscellaneous Information Patient in critical care unit? Ass... Q361D .XX 07/31/16 08:15 07/31/16 08:15 (Chlorhexidine 2% Cloth) 3 pack DAILY@04 TOPICAL 08/01/16 04:00 08/05/16 04:01 08/02/16 04:00 Chlorhexidine Gluconate 3 pack 3 pack UNSCH PRN TOPICAL 07/31/16 08:15 08/05/16 08:02 (fentaNYL DRIP) 250 ml @ 0 mls/hr TITRATE IV 07/31/16 08:00 08/02/16 09:44 Pantoprazole Sodium 40 mg 40 mg Q24H IV PUSH 07/31/16 09:00 08/02/16 09:44 (Zosyn 4.5 Gm Premix) 100 ml @ 200 mls/hr Q6H IV 07/31/16 11:00 08/02/16 04:52 (Ecotrin Ec) 81 mg DAILY PO 07/31/16 11:00 08/02/16 09:50 (Free Water) VOLUME OF WATER: ( 250 ) ML Q12HR G-TUBE 08/01/16 09:00 08/02/16 09:00 (Trandate Inj) 10 mg Q4H PRN IV PUSH 08/02/16 05:00 08/02/16 04:58 (Lipitor) 40 mg HS PO 08/02/16 21:00 (Coreg) 6.25 mg Q12HR PO 08/02/16 09:00 08/02/16 09:45 (Lasix Inj) 40 mg DAILY IV PUSH 08/02/16 09:00 08/02/16 09:45 (NovoLIN R SUPPLEMENTAL SCALE) 1 Q8H SQ 08/02/16 12:00 Allergies Allergies Coded Allergies No Known Allergies (Verified07/29/16) Review of Systems All other ROS: ROS reviewed as documented in chart Exam I&O / VS 08/01/16 08/01/16 08/02/16 15:00 23:00 07:00 Intake Total 811 ml 684 ml 459 ml Output Total 425 ml 400 ml 300 ml Balance 386 ml 284 ml 159 ml Intake Oral 0 ml 0 ml IV Total 261 ml 152 ml 178 ml Tube Feeding 430 ml 282 ml 221 ml Other 120 ml 250 ml 60 ml Output Urine Total 425 ml 400 ml 300 ml # Bowel Movements 0 1 Vital Signs Date Time Temp Pulse Resp B/P Pulse Ox O2 Delivery O2 Flow Rate FiO2 08/02/16 10:00 78 08/02/16 08:00 98.7 75 20 208/89 96 08/02/16 08:00 40 08/02/16 08:00 75 08/02/16 07:40 100 35 08/02/16 04:09 99 35 08/02/16 04:00 99.0 84 20 197/87 98 08/02/16 04:00 40 08/02/16 01:09 100 40 08/02/16 00:00 98.9 69 20 188/80 100 08/02/16 00:00 40 08/01/16 22:10 99 40 08/01/16 20:00 40 08/01/16 20:00 99.1 77 20 188/81 99 08/01/16 19:55 99 40 08/01/16 18:00 74 08/01/16 16:35 100 100 08/01/16 16:00 80 08/01/16 16:00 99.2 80 20 160/70 97 08/01/16 16:00 40 08/01/16 15:21 99 40 08/01/16 14:00 75 08/01/16 12:00 40 08/01/16 12:00 99.0 74 20 148/66 95 08/01/16 12:00 74 08/01/16 11:35 96 40 Exam Comments GENERAL: Intubated and under mild sedation. HEENT: Atraumatic, normocephalic. Pupils are equal, round reacting to light. NECK: Supple. Trachea in the midline. Oral intubated. CARDIOVASCULAR: Sinus tachycardia. No murmurs. RESPIRATORY: Bilateral equal air entry. No wheezes. ABDOMEN: Soft, nontender. EXTREMITIES: No cyanosis, clubbing or edema. NEUROLOGIC: Intubated and under mild sedation, Pupils 2 mm bilateral, reacting to light. bilateral horizontal nystagmus, responds to verbal commands, opened close your eyes, squeezed the fingers and wiggle the toes of the right side of the body, spontaneous eye opening. Objective Radiology Results Last [address] 08/01/16 Signed Impressions: Service Date/Time: Monday, August 01, 2016 16:47 - CONCLUSION: 1. Evolving right frontal and parietal lobe infarcts without evidence for hemorrhagic transformation or intercurrent hemorrhage. 2. Otherwise, no significant interval change. Doug Valencia MD Neck Magnetic Resonance Angiography 07/31/16 Signed Impressions: Service Date/Time: Sunday, July 31, 2016 17:46 - CONCLUSION: Total occlusion of the right internal carotid artery. Slightly less than 50%% eccentric stenosis of the proximal left internal carotid artery. High-grade eccentric stenosis of the left subclavian artery proximal to a diminutive left vertebral artery. Lacho Morel MD Head Magnetic Resonance Angiography 07/31/16 Signed Impressions: Service Date/Time: Sunday, July 31, 2016 17:46 - CONCLUSION: 1. Occlusion of the right internal carotid artery. 2. Multiple missing vessels distal to the right MCA trifurcation consistent with occlusion. Morales Miller MD Head CT 07/31/16 Signed Impressions: Service Date/Time: Sunday, July 31, 2016 09:22 - CONCLUSION: Likely evolving right hemispheric strokes. No evidence of hemorrhage. Lacho Morel MD Chest X-Ray 07/31/16 Signed Impressions: Service Date/Time: Sunday, July 31, 2016 07:49 - CONCLUSION: 1. ETT in good position. 2. Interval development of diffuse bilateral airspace disease with small right and [id number] left pleural effusions. Differential considerations include pulmonary edema versus diffuse infection versus developing ARDS. Doug Valencia MD Brain MRI 6/26/17 0000 Signed Impressions: Service Date/Time: Sunday, July 31, 2016 17:46 - CONCLUSION: 1. Multiple areas of restricted diffusion involving the right frontal and parietal lobes consistent with areas of acute to subacute infarction. 2. No evidence of hemorrhage, mass effect or midline shift. 3. Old area of encephalomalacia involving the right inferior frontal lobe. Morales Miller MD Micro and Labs Laboratory Tests Test 08/02/16 04:33 White Blood Count 9.0 Red Blood Count 3.14 Hemoglobin 9.5 Hematocrit 28.3 Mean Corpuscular Volume 90.0 Mean Corpuscular Hemoglobin 30.1 Mean Corpuscular Hemoglobin 33.4 Concent Red Cell Distribution Width 17.2 Platelet Count 163 Mean Platelet Volume 9.4 Neutrophils (%) (Auto) 74.7 Lymphocytes (%) (Auto) 16.0 Monocytes (%) (Auto) 8.1 Eosinophils (%) (Auto) 0.8 Basophils (%) (Auto) 0.4 Neutrophils # (Auto) 6.7 Lymphocytes # (Auto) 1.4 Monocytes # (Auto) 0.7 Eosinophils # (Auto) 0.1 Basophils # (Auto) 0.0 CBC Comment DIFF FINAL Differential Comment Sodium Level 148 Potassium Level 4.0 Chloride Level 115 Carbon Dioxide Level 27.1 Anion Gap 6 Blood Urea Nitrogen 30 Creatinine 1.58 Estimat Glomerular Filtration 46 Rate Random Glucose 133 Calcium Level 8.6 Phosphorus Level 2.6 Magnesium Level 2.4 Date/Time Procedure Status Source Growth 07/31/16 08:10 Urine Culture - Final Complete Urine Catheterized Urine NO GROWTH IN 48 HOURS. 07/31/16 08:10 Gram Stain - Final Complete Sputum Endotracheal 07/31/16 08:10 Sputum Culture - Final Complete Sputum Endotracheal HEAVY GROWTH NORMAL RESPIRATORY LEIGHANN Vinh Quinones MD Aug 02, 2016 11:35
[2016-08-02 13:33] LABS: BLOOD GAS BASE EXCESS 3.1 mmol/L (-2-2); BLOOD GAS CARBOXYHEMOGLOBIN 1.6 % (0-4); BLOOD GAS HCO3 27 mmol/L (22-26); BLOOD GAS O2 HGB SATURATION 96 % (90-100); BLOOD GAS OXYGEN CONTENT 13.1 Vol % (12.0-20.0); BLOOD GAS PCO2 41 mmHg (38-42); BLOOD GAS PO2 116 mmHg (61-120); BLOOD GAS TOTAL HGB 9.6 G/DL (12.0-16.0); CRITICAL VALUE NO; FIO2 35 %; OXYGEN DEVICE VENTILATOR; TEMP CORR TO 98.6; VENT SETTINGS CPAP+5/PS+5
[2016-08-02 13:34] LABS: DRAW SITE LT RADIAL; NUMBER OF ARTERIAL PUNCTURES 1; STAT NO; ULNAR PULSE PRESENT
--- NOTE | 2016-08-02 13:52 | HHI.HCPN ---
Reason for visit a. To assist with evaluation and management of symptoms including: Shortness of breath and debility. b. To assist medical decision maker(s) with: better understanding of current medical conditions; weighing benefits/burdens of medical treatment options; making medical treatment decisions. . Subjective/Interval History Mr. Martin is a 56 y/o male with a medical history of hypertension, alcohol abuse, tobacco abuse, anxiety, depression, hyperlipidemia. Patient presented to ED on 07/29/16 via EMS secondary to dizziness and hypertension. Patient was admitted for further evaluation and management of dehydration, renal failure and chronic elevation of troponin. Clinical condition worsened by change in mental status and hypoxia on 08/01/16 requiring intubation and mechanical ventilation. MRI revealed acute to subacute infarct. Head and neck MRA revealing total occlusion of right internal carotid artery, less than 50% stenosis to left proximal internal carotid artery and the multiple intracranial stenosis -not a surgical candidate. Patient renal function has continued to worsen. Palliative care was consulted for further clarifications of goals of care. Patient seen in ICU. He remains intubated on mechanical ventilation. Sedation off, remains on fentanyl drip. Patient opening right eye to verbal stimuli. Attempting to communicate by mouthing words, nodding head to yes/no questions and attempting to write on paper. Left-sided hemiparesis. Following simple commands with right arm, right leg, giving me thumbs up when asked. Patient on CPAP trials during time of my second visit. Remains afebrile, hypertensive. FiO2 35%. Oxygen saturation in the mid to high 90s. Laboratory workup today showing WBC 9.0, Hgb 9.5, platelet count 163. Sodium 148, potassium 4.0, BUN/ creatinine 30/1.58. Follow-up head CT 08/01/16 revealing involving the right frontal and parietal lobe infarcts without evidence of hemorrhage. Reviewed with patient clinical course and current medical management. Reviewed that tracheostomy and PEG will likely be needed if patient is unable to protect his airway/wean off vent support. Patient answering "yes" when asked if this would be acceptable to him. However, patient unable to answer what would be the consequences of refusing treatment or discontinuing breathing tube this time. Met with patient's sons Joon and Yusuf. Uncle Bob participating in family meeting via telephone. Reviewed events leading to these hospitalization, clinical course and current medical management. Shared results of MRI and MRA revealing acute ischemic stroke, multiple intracranial stenosis, occlusion of the right ICA, acute kidney injury, and acute hypoxemic respiratory failure. Reviewed that this patient is unable to wean off vent support/unable to protect his airway, but a tracheostomy and PEG tube might be needed. Reviewed that it is unclear at this time the sequela of CVA in regards to neurological deficits, patient currently with left sided hemiparesis. Reviewed that patient is still at very high risk for further strokes secondary to multiple stenosis as described above. Reviewed that patient may likely need long-term placement secondary to likely neurological deficits and care needed. Reviewed risks, benefits and limitations of CPR given patient's medical history and current clinical status. Goal of therapy at this time is to attempt at medical extubation while allowing an additional 48 hours for clinical improvement with hopes that patient will regain some capacity to participate in medical decision- making. Family electing no cardiac code- NO CPR. But may reintubate after medical extubation if medically needed. Palliative care will continue to follow- up. Family meeting set up for this 08/04/16 at noon time. . Family/friend interactions See interval note. . Advance Directives Living Will: Never completed Health Care Surrogate: Never completed Durable Power of Insurance Counsel: Never completed Advance Directive Specifics Health Care Surrogate(s): No advance directives completed. Patient is . As per [place] law, healthcare surrogate decision making falls to the majority of patient's children , for which he has 3. Documented care wishes: No living will completed. . Significant change in goals: Alternate code/ intubation only. NO CPR. OK to reintubate if medically needed. . Objective Vital Signs Date Time Temp Pulse Resp B/P Pulse Ox O2 Delivery O2 Flow Rate FiO2 08/02/16 12:01 96 35 08/02/16 12:00 58 08/02/16 12:00 98.2 58 13 165/72 95 08/02/16 12:00 40 08/02/16 11:00 40 08/02/16 10:00 78 08/02/16 08:00 98.7 75 20 208/89 96 08/02/16 08:00 40 08/02/16 08:00 75 08/02/16 07:40 100 35 08/02/16 04:09 99 35 08/02/16 04:00 99.0 84 20 197/87 98 08/02/16 04:00 40 08/02/16 01:09 100 40 08/02/16 00:00 98.9 69 20 188/80 100 08/02/16 00:00 40 08/01/16 22:10 99 40 08/01/16 20:00 40 08/01/16 20:00 99.1 77 20 188/81 99 08/01/16 19:55 99 40 08/01/16 18:00 74 08/01/16 16:35 100 100 08/01/16 16:00 80 08/01/16 16:00 99.2 80 20 160/70 97 08/01/16 16:00 40 08/01/16 15:21 99 40 08/01/16 14:00 75 Intake & Output 08/02/16 08/02/16 07:00 19:00 Intake Total 1143 ml Output Total 700 ml Balance 443 ml Intake Oral 0 ml IV Total 330 ml Tube Feeding 503 ml Other 310 ml Output Urine Total 700 ml # Bowel Movements 1 Physical Exam CONSTITUTIONAL/GENERAL: This is a thin patient resting in bed in no apparent distress. Orally intubated on mechanical ventilation. TUBES/LINES/DRAINS: ETT, OG, PIV's, Millard catheter, SCDs, bilateral soft wrist restraints. SKIN: No jaundice, rashes, or lesions. Ecchymoses on upper extremities. No wounds seen anteriorly. Skin temperature appropriate. Not diaphoretic. HEAD: Atraumatic. Normocephalic. EYES: Pupils equal and round and reactive. No scleral icterus. No injection or drainage. ENT: Hearing appears normal. Nose without bleeding or purulent drainage. Moist oral mucosa. NECK: Trachea midline. Supple, nontender. CARDIOVASCULAR: Regular rate and rhythm without murmurs, gallops, or rubs. No JVD. Peripheral pulses symmetric. RESPIRATORY/CHEST: Symmetric, unlabored respirations. Orally intubated on mechanical ventilation. Mild rhonchi anteriorly. GASTROINTESTINAL: Abdomen soft, flat, non-tender, nondistended. No guarding. Bowel sounds present. GENITOURINARY: Without palpable bladder distension. Millard catheter in place. MUSCULOSKELETAL: Extremities without clubbing, cyanosis, or edema. No mottling or clubbing. NEUROLOGICAL: Awake, alert. Attempting to communicate by mouthing words, nodding head to yes/no questions and writing on paper. Following commands with right arm and right leg. Left sided hemiparesis. PSYCHIATRIC: Calm. . Diagnostic Tests Laboratory Laboratory Tests Test 07/31/16 07/31/16 07/31/16 07/31/16 06:31 08:08 08:10 08:30 Sodium Level 146 MEQ/L (136-145) Potassium Level 4.3 MEQ/L (3.5-5.1) Chloride Level 115 MEQ/L (98-107) Carbon Dioxide Level 24.8 MEQ/L (21.0-32.0) Anion Gap 6 MEQ/L (5-15) Blood Urea Nitrogen 17 MG/DL (7-18) Creatinine 1.29 MG/DL (0.60-1.30) Estimat Glomerular Filtration 58 ML/MIN (>89) Rate Random Glucose 83 MG/DL (74-106) Calcium Level 8.2 MG/DL (8.5-10.1) Phosphorus Level 1.3 MG/DL (2.5-4.9) Magnesium Level 2.0 MG/DL (1.5-2.5) Blood Gas Puncture Site LT RADIAL Blood Gas Patient Temperature 98.6 Blood Gas HCO3 20 mmol/L (22-26) Blood Gas Base Excess -6.9 mmol/L (-2-2) Blood Gas Oxygen Saturation 96 % (90-100) Arterial Blood pH 7.19 (7.380-7.420) Arterial Blood Partial 54 mmHg (38-42) Pressure CO2 Arterial Blood Partial 136 mmHg Pressure O2 (61-120) Arterial Blood Oxygen Content 14.4 Vol % (12.0-20.0) Arterial Blood 1.1 % (0-4) Carboxyhemoglobin Arterial Blood Methemoglobin 1.4 % (0-2) Blood Gas Hemoglobin 10.5 G/DL (12.0-16.0) Oxygen Delivery Device VENTILATOR Blood Gas Ventilator Setting SEE COMMENTS Blood Gas Inspired Oxygen 100 % Urine Color YELLOW (YELLW/STRAW) Urine Turbidity HAZY (CLEAR) Urine pH 5.5 (5.0-8.5) Urine Specific [place] 1.012 (1.002-1.035) Urine Protein 100 mg/dL (NEG-TRACE) Urine Glucose (UA) 1000 mg/dL (NEG) Urine Ketones NEG mg/dL (NEG) Urine Occult Blood MOD (NEG) Urine Nitrite NEG (NEG) Urine Bilirubin NEG (NEG) Urine Urobilinogen LESS THAN 2.0 MG/DL (LESS THAN 2.0) Urine Leukocyte Esterase NEG (NEG) Urine RBC 1 /hpf (0-3) Urine WBC 2 /hpf (0-5) Urine Squamous Epithelial 1 /hpf (0-5) Cells Urine Amorphous Sediment RARE Urine Bacteria OCC /hpf (NONE) Urine Hyaline Casts 7 /lpf (RARE) Urine Mucus FEW /lpf (OCC) Microscopic Urinalysis Comment CATH-CULTURE IND Nasal Screen MRSA (PCR) MRSA NOT DETECTED (NOT DETECT) Test 07/31/16 07/31/16 07/31/16 08/01/16 09:56 15:50 21:25 04:28 Blood Gas Puncture Site LT RADIAL Blood Gas Patient Temperature 98.6 Blood Gas HCO3 21 mmol/L (22-26) Blood Gas Base Excess -3.5 mmol/L (-2-2) Blood Gas Oxygen Saturation 93 % (90-100) Arterial Blood pH 7.35 (7.380-7.420) Arterial Blood Partial 40 mmHg (38-42) Pressure CO2 Arterial Blood Partial 83 mmHg Pressure O2 (61-120) Arterial Blood Oxygen Content 12.2 Vol % (12.0-20.0) Arterial Blood 1.5 % (0-4) Carboxyhemoglobin Arterial Blood Methemoglobin 1.6 % (0-2) Blood Gas Hemoglobin 9.3 G/DL (12.0-16.0) Oxygen Delivery Device VENTILATOR Blood Gas Ventilator Setting SEE COMMENTS Blood Gas Inspired Oxygen 50 % White Blood Count 11.7 TH/MM3 9.1 TH/MM3 (4.0-11.0) (4.0-11.0) Red Blood Count 3.20 MIL/MM3 3.16 MIL/MM3 (4.50-5.90) (4.50-5.90) Hemoglobin 9.3 GM/DL 9.4 GM/DL (13.0-17.0) (13.0-17.0) Hematocrit 29.2 % 28.3 % (39.0-51.0) (39.0-51.0) Mean Corpuscular Volume 91.2 FL 89.7 FL (80.0-100.0) (80.0-100.0) Mean Corpuscular Hemoglobin 29.1 PG 29.7 PG (27.0-34.0) (27.0-34.0) Mean Corpuscular Hemoglobin 31.8 % 33.1 % Concent (32.0-36.0) (32.0-36.0) Red Cell Distribution Width 17.3 % 17.0 % (11.6-17.2) (11.6-17.2) Platelet Count 179 TH/MM3 158 TH/MM3 (150-450) (150-450) Mean Platelet Volume 9.0 FL 8.9 FL (7.0-11.0) (7.0-11.0) Neutrophils (%) (Auto) 84.0 % 73.1 % (16.0-70.0) (16.0-70.0) Lymphocytes (%) (Auto) 9.1 % 16.5 % (9.0-44.0) (9.0-44.0) Monocytes (%) (Auto) 5.9 % (0.0-8.0) 7.7 % (0.0-8.0) Eosinophils (%) (Auto) 0.4 % (0.0-4.0) 1.5 % (0.0-4.0) Basophils (%) (Auto) 0.6 % (0.0-2.0) 1.2 % (0.0-2.0) Neutrophils # (Auto) 9.8 TH/MM3 6.7 TH/MM3 (1.8-7.7) (1.8-7.7) Lymphocytes # (Auto) 1.1 TH/MM3 1.5 TH/MM3 (1.0-4.8) (1.0-4.8) Monocytes # (Auto) 0.7 TH/MM3 0.7 TH/MM3 (0-0.9) (0-0.9) Eosinophils # (Auto) 0.0 TH/MM3 0.1 TH/MM3 (0-0.4) (0-0.4) Basophils # (Auto) 0.1 TH/MM3 0.1 TH/MM3 (0-0.2) (0-0.2) CBC Comment DIFF FINAL AUTO DIFF Differential Comment AUTO DIFF CONFIRMED Sodium Level 145 MEQ/L (136-145) Potassium Level 3.9 MEQ/L (3.5-5.1) Chloride Level 113 MEQ/L (98-107) Carbon Dioxide Level 27.1 MEQ/L (21.0-32.0) Anion Gap 5 MEQ/L (5-15) Blood Urea Nitrogen 18 MG/DL (7-18) Creatinine 1.42 MG/DL (0.60-1.30) Estimat Glomerular Filtration 52 ML/MIN (>89) Rate Random Glucose 79 MG/DL (74-106) Calcium Level 7.6 MG/DL (8.5-10.1) Phosphorus Level 1.6 MG/DL 2.7 MG/DL (2.5-4.9) (2.5-4.9) Magnesium Level 1.6 MG/DL (1.5-2.5) Total Bilirubin 0.4 MG/DL (0.2-1.0) Aspartate Amino Transf 33 U/L (15-37) (AST/SGOT) Alanine Aminotransferase 21 U/L (12-78) (ALT/SGPT) Alkaline Phosphatase 72 U/L (45-117) Total Creatine Kinase 211 U/L (39-308) Troponin I 3.45 NG/ML 2.21 NG/ML (0.02-0.05) (0.02-0.05) Total Protein 5.3 GM/DL (6.4-8.2) Albumin 2.3 GM/DL (3.4-5.0) Hemoglobin A1c 6.3 % (4.3-6.0) Triglycerides Level 78 MG/DL (42-150) Cholesterol Level 135 MG/DL (120-200) LDL Cholesterol 82 MG/DL (0-99) HDL Cholesterol 37.3 MG/DL (40.0-60.0) Cholesterol/HDL Ratio 3.61 RATIO Test 08/01/16 08/01/16 08/02/16 04:30 10:15 04:33 Sodium Level 147 MEQ/L 148 MEQ/L (136-145) (136-145) Potassium Level 4.1 MEQ/L 4.0 MEQ/L (3.5-5.1) (3.5-5.1) Chloride Level 114 MEQ/L 115 MEQ/L (98-107) (98-107) Carbon Dioxide Level 26.7 MEQ/L 27.1 MEQ/L (21.0-32.0) (21.0-32.0) Anion Gap 6 MEQ/L (5-15) 6 MEQ/L (5-15) Blood Urea Nitrogen 23 MG/DL (7-18) 30 MG/DL (7-18) Creatinine 1.67 MG/DL 1.58 MG/DL (0.60-1.30) (0.60-1.30) Estimat Glomerular Filtration 43 ML/MIN (>89) 46 ML/MIN (>89) Rate Random Glucose 121 MG/DL 133 MG/DL (74-106) (74-106) Calcium Level 8.0 MG/DL 8.6 MG/DL (8.5-10.1) (8.5-10.1) Troponin I 2.45 NG/ML 1.74 NG/ML (0.02-0.05) (0.02-0.05) White Blood Count 9.0 TH/MM3 (4.0-11.0) Red Blood Count 3.14 MIL/MM3 (4.50-5.90) Hemoglobin 9.5 GM/DL (13.0-17.0) Hematocrit 28.3 % (39.0-51.0) Mean Corpuscular Volume 90.0 FL (80.0-100.0) Mean Corpuscular Hemoglobin 30.1 PG (27.0-34.0) Mean Corpuscular Hemoglobin 33.4 % Concent (32.0-36.0) Red Cell Distribution Width 17.2 % (11.6-17.2) Platelet Count 163 TH/MM3 (150-450) Mean Platelet Volume 9.4 FL (7.0-11.0) Neutrophils (%) (Auto) 74.7 % (16.0-70.0) Lymphocytes (%) (Auto) 16.0 % (9.0-44.0) Monocytes (%) (Auto) 8.1 % (0.0-8.0) Eosinophils (%) (Auto) 0.8 % (0.0-4.0) Basophils (%) (Auto) 0.4 % (0.0-2.0) Neutrophils # (Auto) 6.7 TH/MM3 (1.8-7.7) Lymphocytes # (Auto) 1.4 TH/MM3 (1.0-4.8) Monocytes # (Auto) 0.7 TH/MM3 (0-0.9) Eosinophils # (Auto) 0.1 TH/MM3 (0-0.4) Basophils # (Auto) 0.0 TH/MM3 (0-0.2) CBC Comment DIFF FINAL Differential Comment Phosphorus Level 2.6 MG/DL (2.5-4.9) Magnesium Level 2.4 MG/DL (1.5-2.5) Result Diagram: 08/02/16 0433 08/02/16 0433 Microbiology Microbiology Date/Time Procedure Status Source Growth 07/31/16 08:10 Gram Stain - Final Complete Sputum Endotracheal 07/31/16 08:10 Sputum Culture - Final Complete Sputum Endotracheal HEAVY GROWTH NORMAL RESPIRATORY LEIGHANN 07/31/16 08:10 Urine Culture - Final Complete Urine Catheterized Urine NO GROWTH IN 48 HOURS. Imaging Last [address] 08/01/16 0000 Signed Impressions: Service Date/Time: Monday, August 01, 2016 16:47 - CONCLUSION: 1. Evolving right frontal and parietal lobe infarcts without evidence for hemorrhagic transformation or intercurrent hemorrhage. 2. Otherwise, no significant interval change. Doug Valencia MD Assessment and Plan Disease Oriented Problem List: (1) Acute respiratory failure (2) CVA (cerebral vascular accident) (3) Acute kidney injury (4) Elevated troponin (5) Encephalopathy Symptom Scale: (1) Shortness of breath 0-10 Scale: Unable to quantify Comment: Acute respiratory failure. Remains on ventilator support. (2) Debility 0-10 Scale: Unable to quantify Comment: Secondary to acute illness. Pertinent Non-Medical Issues Psychosocial: Patient is . He has 3 children. History of homelessness. Spiritual: No amish affiliation. Legal: No advance directives completed. Ethical issues impacting care: No advance directives completed. . Important Contacts Son Joon Martin [phone], [phone]. Son Jesus Martin . Daughter -unknown name or phone number. Pending information. . Prognosis Mr. Martin is a 56 y/o male with a medical history of hypertension, alcohol abuse, tobacco abuse, anxiety, depression, hyperlipidemia. Patient presented to ED on 07/29/16 via EMS secondary to dizziness and hypertension. Patient was admitted for further evaluation and management of dehydration, renal failure and chronic elevation of troponin. Patient's clinical condition complicated by respiratory failure requiring intubation and mechanical ventilation, development of right frontal/parietal CVA acute to subacute. Further workup revealing right internal carotid artery Occluded. Left ICA 50% Occluded. Not a surgical candidate. Renal function worsening. Patient is a very high risk for further complications, continue decline and . . Code Status: Alternative Code (intubation only. May reintubate if needed.) Plan * CODE STATUS: Alternative code/intubation only. May reintubate if needed. This decision was made by the majority of patient's children (2 out 3: Joon and Jesus. Daughter Ira resides in [place] and her contact information is unknown to her family). * HEALTHCARE DECISION-MAKING: Patient more alert today, following simple commands with right hand and right leg. Patient may regain capacity for medical decision-making within the next few days. 08/02/16 -Reviewed with patient clinical course and current medical management. Reviewed that tracheostomy and PEG will likely be needed if he is unable to protect his airway /wean off vent support. Patient answered "yes" when asked if this would be acceptable to him. However, patient unable to answer what would be the consequences of refusing treatment or discontinuing breathing tube this time. Patient exhibiting limited insight into his complex medical condition and prognosis. Unclear if he will regain full capacity for [id number]. No advance directives completed. Patient is . As per [place] law, healthcare surrogate decision making falls to the majority of patient's children , for which he has 3. * GOALS OF CARE: As per family, goal of therapy at this time is to attempt at medical extubation while allowing an additional 48 hours for clinical improvement with hopes that patient will regain capacity to participate in medical decision-making. Family electing intubation only code with NO cardiac code/no CPR. May reintubate if medically needed. * 08/02/16 -Met with patient's sons Elba. Uncle Bob participating in family meeting via telephone. Reviewed events leading to this hospitalization, clinical course and current medical management. Shared results of MRI and MRA revealing acute ischemic stroke, multiple intracranial stenosis, occlusion of the right ICA, in addition to acute kidney injury, and acute hypoxemic respiratory failure. Reviewed that if patient is unable to wean off vent support/unable to protect his airway, tracheostomy and PEG tube may be needed. Reviewed that it is unclear at this time the sequela of CVA in regards to neurological deficits, patient currently with left sided hemiparesis. Reviewed that patient is still at very high risk for further strokes secondary to multiple stenosis as described above. Reviewed that patient may likely need long-term placement secondary to neurological deficits and higher of care needed, discussed likely difficult placement secondary to limited resources/no ins coverage at this time and family unable to care for patient at this time. Reviewed risks, benefits and limitations of CPR given patient's medical history and current clinical status. * SYMPTOMS: = Shortness of breath, multifactorial. Patient remains intubated on mechanical ventilation. Currently on CPAP Trials, goal is to medically extubate within the next few days. = Debility: Secondary to acute illness, prolonged hospitalization. = Pain: Secondary to acute illness and prolonged hospitalization. Currently on fentanyl drip. Patient appears calm at time of my visit and denied pain. * F/u family meeting set up for this incoming 08/04/16 at noon time. * Case discussed with bedside RN Brooke and Dr. Monk. * Palliative care contact information has been provided to patient's family. * Palliative care will continue to follow-up with patient and family for further clarifications of goals of care as patient's clinical course continues to evolve. . Time Spent Total Floor Time (mins): 52 (Total time to include review and summarization of medical records, physical exam, extensive family meeting to discuss goals of care and case discussion with Dr. Monk at bedside RN.) >50% Counseling/Coord of Care: Yes Attestation To help prompt me to consider important information that might be impacting today's encounter and assessment, information from prior notes written by myself or my colleagues may have been "brought forward" into today's note. My signature on this note, however, is an attestation that I personally performed the exam, history, and/or decision-making noted today, and, unless otherwise indicated, the interactions with patient, family, and staff as well as the review of records all occurred today. I also attest that the listed assessment and stated plan reflect my best clinical judgment today based on the combination of historical information, prior notes, and today's exam/ interactions. When time spent is documented, it refers only to time spent today by the signer, or if indicated, combined time spent today by collaborating physician/nurse practitioner. Jumana Batres Aug 02, 2016 13:52
--- NOTE | 2016-08-02 13:56 | HHI.CCPN ---
Subjective Remarks/Hospital Course The patient is a 56-year-old male with past medical history of ETOH abuse, tobacco use, hypertension, hyperlipidemia, depression, anxiety disorder, who was admitted to [facility] under hospitalist service on July 29 for acute renal failure, dehydration, alcohol withdrawal. The patient was found to have creatinine of 2.25 with estimated GFR 30 and troponin of 0.13. The patient was admitted to the medical floor and placed on IV fluids normal saline at 125 mL an hour and his renal function was improving with creatinine down to 1.29. [facility] was found hypoxic in respiratory distress and with altered mental status. He was on CIWA protocol and was given Ativan 2 mg IV at 07:15 this morning. Upon arrival to [facility] the patient was intubated immediately by myself and placed on full mechanical ventilation. Diprivan infusion was started for sedation. A chest x-ray post intubation showed pulmonary vascular congestion. 08/01 Patient is sedated with Fentanyl and intubated. MRI brain revealed right frontal/parietal CVA acute to subacute. Diffuse prior right-sided inferior frontal encephalomalacia. Right internal carotid artery Occluded. Left ICA 50 % Occluded. Left External Carotid Occluded. renal function is worse with Cr: 1.67 from 1.42. Trop 2,45 this morning. 08/02. Remains intubated sedated. On sedation hold wakes up and follows commands with right upper and lower extremity. Son updated at the bedside Objective Vital Signs Date Time Temp Pulse Resp B/P Pulse Ox O2 Delivery O2 Flow Rate FiO2 08/02/16 12:01 96 35 08/02/16 12:00 58 08/02/16 12:00 98.2 13 165/72 07/31/16 19:00 Mechanical Ventilator 07/31/16 07:30 15.00 Intake and Output 08/01/16 08/01/16 08/02/16 08:00 16:00 00:00 Intake Total 448 ml 811 ml 684 ml Output Total 400 ml 425 ml 400 ml Balance 48 ml 386 ml 284 ml Result Diagram: 08/02/16 0433 08/02/16 0433 Other Results Microbiology Date/Time Procedure Status Source Growth 07/31/16 08:10 Gram Stain - Final Complete Sputum Endotracheal 07/31/16 08:10 Sputum Culture - Final Complete Sputum Endotracheal HEAVY GROWTH NORMAL RESPIRATORY LEIGHANN 07/31/16 08:10 Urine Culture - Final Complete Urine Catheterized Urine NO GROWTH IN 48 HOURS. Laboratory Tests Test 08/02/16 13:20 Blood Gas Puncture Site LT RADIAL Blood Gas Patient Temperature 98.6 Blood Gas HCO3 27 mmol/L (22-26) Blood Gas Base Excess 3.1 mmol/L (-2-2) Blood Gas Oxygen Saturation 96 % (90-100) Arterial Blood pH 7.44 (7.380-7.420) Arterial Blood Partial 41 mmHg (38-42) Pressure CO2 Arterial Blood Partial 116 mmHg Pressure O2 (61-120) Arterial Blood Oxygen Content 13.1 Vol % (12.0-20.0) Arterial Blood 1.6 % (0-4) Carboxyhemoglobin Arterial Blood Methemoglobin 1.0 % (0-2) Blood Gas Hemoglobin 9.6 G/DL (12.0-16.0) Oxygen Delivery Device VENTILATOR Blood Gas Ventilator Setting CPAP+5/PS+5 Blood Gas Inspired Oxygen 35 % Imaging Last Impressions Neck Magnetic Resonance Angiography 07/31/16 0000 Signed Impressions: Service Date/Time: Sunday, July 31, 2016 17:46 - CONCLUSION: Total occlusion of the right internal carotid artery. Slightly less than 50%% eccentric stenosis of the proximal left internal carotid artery. High-grade eccentric stenosis of the left subclavian artery proximal to a diminutive left vertebral artery. Lacho Morel MD Head Magnetic Resonance Angiography 07/31/16 0000 Signed Impressions: Service Date/Time: Sunday, July 31, 2016 17:46 - CONCLUSION: 1. Occlusion of the right internal carotid artery. 2. Multiple missing vessels distal to the right MCA trifurcation consistent with occlusion. Morales Miller MD Head CT 07/31/16 0000 Signed Impressions: Service Date/Time: Sunday, July 31, 2016 09:22 - CONCLUSION: Likely evolving right hemispheric strokes. No evidence of hemorrhage. Lacho Morel MD Chest X-Ray 07/31/16 0000 Signed Impressions: Service Date/Time: Sunday, July 31, 2016 07:49 - CONCLUSION: 1. ETT in good position. 2. Interval development of diffuse bilateral airspace disease with small right and [id number] left pleural effusions. Differential considerations include pulmonary edema versus diffuse infection versus developing ARDS. Doug Valencia MD Brain MRI 07/31/16 0000 Signed Impressions: Service Date/Time: Sunday, July 31, 2016 17:46 - CONCLUSION: 1. Multiple areas of restricted diffusion involving the right frontal and parietal lobes consistent with areas of acute to subacute infarction. 2. No evidence of hemorrhage, mass effect or midline shift. 3. Old area of encephalomalacia involving the right inferior frontal lobe. Morales Miller MD Objective Remarks GENERAL: Patient is 56 yo intubated and sedated SKIN: Warm and dry. HEAD: Normocephalic. EYES: No scleral icterus. No injection or drainage. NECK: Supple, trachea midline. No JVD or lymphadenopathy. Orally intubated CARDIOVASCULAR: Regular rate and rhythm without murmurs, gallops, or rubs. RESPIRATORY: Breath sounds equal bilaterally. No accessory muscle use. GASTROINTESTINAL: Abdomen soft, non-tender, nondistended. MUSCULOSKELETAL: No cyanosis, or edema. Neuro: On sedation hold follows commands on right upper and lower extremity. Opens eyes tract. 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 NSTEMI Encephalopathy Anemia History of ETOH and tobacco use History of anxiety and depression. Plan Neuro: On Fentanyl infusion for sedation> Daily sedation vacation. Continue with thiamine, multivitamins and folic acid. MRI brain: Multiple areas of acute to subacute infarction involving the right frontal and parietal lobes. No evidence of hemorrhage, mass effect or midline shift. Old area of encephalomalacia involving the right inferior frontal lobe MRA brain: Occlusion of the right internal carotid artery. Multiple missing vessels distal to the right MCA trifurcation consistent with occlusion. MRA neck: Total occlusion of the right internal carotid artery. Slightly less than 50%% eccentric stenosis of the proximal left internal carotid artery. High-grade eccentric stenosis of the left subclavian artery proximal to a diminutive left vertebral artery. For EEG today, continue ASA 81mg daily. Discussed with Neuro- Dr. Velasquez and vascular surgery-Dr. Castro Pulm: Continue vent support and maintain sats above 92%. Bronchodilators, ICU vent bundle. Initiate CPAP transfer possible extubation CV: Monitor HR and BP and maintain MAP >65mmHg Continue with aspirin 81 mg daily, Lipitor 20 mg p.o. q.h.s. Echo showed EF 30-35% , grade II diastolic dysfunction. Monitor trop, cards eval. Patient is at high risk for hemorrhagic conversion with his CVA with full anticoagulation. Use hydralazine 20 mg IV every 4 hours when necessary for SBP target between 160-180 : Monitor renal function, I&O's and will place on electrolyte replacement protocol. Free water 250ml Q12 GI: on Protonix 40 mg IV daily for GI prophylaxis. On tube feeds- Glucerna 1.5 @ 45ml/hr ID: Continue with abx (Zosyn) for possible aspiration and monitor CBC and for signs of infections(fever and WBC). Follow up on sputum and urine cxs Heme: Monitor CBC. Endo: SSI with Accu-Chek q. 4-hour for glycemic control. GI prophylaxis with Protonix 40 mg daily and DVT prophylaxis with heparin subcu and SCDs. Prognosis guarded Level 3 I have updated sounds at the bedside. After meeting with palliative care and they have decided to make patient an alternate code/intubation only Silke Monk MD Aug 02, 2016 13:56
[2016-08-02] MEDS: hydrALAZINE HCL 20 MG/ML VIAL IV PUSH PRN (14:20)
[2016-08-02] MEDS: SODIUM CHLORIDE 0.9% FLUSH 10 ML FLUSH IV FLUSH PRN (16:12)
[2016-08-02] MEDS ORDERED: LABETALOL HCL 100 MG/20 ML VIAL IV PUSH ONE (17:30)
[2016-08-02] MEDS: niCARdipine INJ 25 MG in SODIUM CHLOR 0.9% 250 ML INJ 250 ML IV SCH ×2 (18:38→23:04)
[2016-08-02] MEDS: ATORVASTATIN 40 MG TAB PO SCH ×2 (20:02→20:04)
[2016-08-03] VITALS (12 sets, daily range): BP systolic 132–170; BP diastolic 63–72; PULSE 60–86; RESP 15–30; TEMP 97–98.9; O2SAT 90–98
[2016-08-03] MEDS: ACETAMINOPHEN/HYDROcodone 325 MG/5 MG TAB PO PRN ×3 (02:24→23:08)
[2016-08-03] MEDS: RESP: ALBUTEROL 2.5 MG/IPRATROPIUM 0.5 MG NEB (SCH) NEB ×4 (03:31→21:30)
[2016-08-03] MEDS: CHLORHEXIDINE GLUCONATE 2 % 1 PACK (2 CLOTHS)(taper/protocol) TOPICAL SCH (04:00)
[2016-08-03] MEDS: INSULIN NovoLIN REGULAR SUPPLEMENTAL SCALE SQ SCH ×3 (04:00→21:50)
[2016-08-03] MEDS: PIPERACIL-TAZO 4.5 GM PREMIX 100 ML IV SCH ×4 (04:02→22:17)
[2016-08-03] MEDS: niCARdipine INJ 25 MG in SODIUM CHLOR 0.9% 250 ML INJ 250 ML IV SCH (04:08)
[2016-08-03 05:41] LABS: BICARBONATE 30.3 MEQ/L (21.0-32.0); POTASSIUM 3.4 MEQ/L (3.5-5.1)
--- NOTE | 2016-08-03 07:46 | PD.TRANSFR ---
Transfer Summary Admission Date Jul 31, 2016 at 08:00 Transfer Date: Aug 03, 2016 Admitting Diagnosis kam, dehydration, renal failure, chronic elevation troponin Diagnoses: (1) Acute respiratory failure Diagnosis: Principal (2) CVA (cerebral vascular accident) Diagnosis: Principal (3) Encephalopathy Diagnosis: Principal (4) Acute kidney injury Diagnosis: Principal (5) NSTEMI (non-ST elevated myocardial infarction) Diagnosis: Principal (6) Cardiomyopathy Diagnosis: Principal (7) Carotid artery stenosis Diagnosis: Principal (8) Alcohol abuse Diagnosis: Secondary (9) Tobacco abuse Diagnosis: Secondary (10) Hypertension Diagnosis: Secondary Transfer Summary/Subjective The patient is a 56-year-old male with past medical history of ETOH abuse, tobacco use, hypertension, hyperlipidemia, depression, anxiety disorder, who was admitted to [facility] under hospitalist service on July 29 for acute renal failure, dehydration, alcohol withdrawal. The patient was found to have creatinine of 2.25 with estimated GFR 30 and troponin of 0.13. The patient was admitted to the medical floor and placed on IV fluids normal saline at 125 mL an hour and his renal function was improving with creatinine down to 1.29. [facility] was called as the patient was found hypoxic in respiratory distress and with altered mental status. He was on CIWA protocol and was given Ativan 2 mg IV at 07:15 this morning. Upon arrival to [facility] the patient was intubated immediately by myself and placed on full mechanical ventilation. Diprivan infusion was started for sedation. A chest x-ray post intubation showed pulmonary vascular congestion. 08/01 Patient is sedated with Fentanyl and intubated. MRI brain revealed right frontal/parietal CVA acute to subacute. Diffuse prior right-sided inferior frontal encephalomalacia. Right internal carotid artery Occluded. Left ICA 50 % Occluded. Left External Carotid Occluded. renal function is worse with Cr: 1.67 from 1.42. Trop 2,45 this morning. 08/02. Remains intubated sedated. On sedation hold wakes up and follows commands with right upper and lower extremity. Son updated at the bedside 08/03: Patient was extubated yesterday tolerated well. Speech appears normal. Persistent left hemiplegia. Started on Cardene infusion yesterday for uncontrolled hypertension. Patient should be able to take by mouth Coreg and increased her dose to 12.5 twice a day and have added lisinopril 10 mg twice a day. Along with IV when necessary hydralazine and labetalol patient should be able to come off the Cardene infusion today Objective Vital Signs Date Time Temp Pulse Resp B/P Pulse Ox O2 Delivery O2 Flow Rate FiO2 08/03/16 04:00 98.1 86 30 151/64 95 08/02/16 20:07 45 08/02/16 20:07 Nasal Cannula 4.00 Intake and Output 08/02/16 08/02/16 08/03/16 08:00 16:00 00:00 Intake Total 459 ml 770 ml 320 ml Output Total 300 ml 2000 ml 1850 ml Balance 159 ml -1230 ml -1530 ml Result Diagram: 08/02/16 0433 08/03/16 0453 Other Results Microbiology Date/Time Procedure Status Source Growth 07/31/16 08:10 Gram Stain - Final Complete Sputum Endotracheal 07/31/16 08:10 Sputum Culture - Final Complete Sputum Endotracheal HEAVY GROWTH NORMAL RESPIRATORY LEIGHANN 07/31/16 08:10 Urine Culture - Final Complete Urine Catheterized Urine NO GROWTH IN 48 HOURS. Laboratory Tests Test 08/02/16 13:20 Blood Gas Puncture Site LT RADIAL Blood Gas Patient Temperature 98.6 Blood Gas HCO3 27 mmol/L (22-26) Blood Gas Base Excess 3.1 mmol/L (-2-2) Blood Gas Oxygen Saturation 96 % (90-100) Arterial Blood pH 7.44 (7.380-7.420) Arterial Blood Partial 41 mmHg (38-42) Pressure CO2 Arterial Blood Partial 116 mmHg Pressure O2 (61-120) Arterial Blood Oxygen Content 13.1 Vol % (12.0-20.0) Arterial Blood 1.6 % (0-4) Carboxyhemoglobin Arterial Blood Methemoglobin 1.0 % (0-2) Blood Gas Hemoglobin 9.6 G/DL (12.0-16.0) Oxygen Delivery Device VENTILATOR Blood Gas Ventilator Setting CPAP+5/PS+5 Blood Gas Inspired Oxygen 35 % Imaging Last Impressions Neck Magnetic Resonance Angiography 07/31/16 0000 Signed Impressions: Service Date/Time: Sunday, July 31, 2016 17:46 - CONCLUSION: Total occlusion of the right internal carotid artery. Slightly less than 50%% eccentric stenosis of the proximal left internal carotid artery. High-grade eccentric stenosis of the left subclavian artery proximal to a diminutive left vertebral artery. Lacho Morel MD Head Magnetic Resonance Angiography 07/31/16 Signed Impressions: Service Date/Time: Sunday, July 31, 2016 17:46 - CONCLUSION: 1. Occlusion of the right internal carotid artery. 2. Multiple missing vessels distal to the right MCA trifurcation consistent with occlusion. Morales Miller MD Head CT 07/31/16 Signed Impressions: Service Date/Time: Sunday, July 31, 2016 09:22 - CONCLUSION: Likely evolving right hemispheric strokes. No evidence of hemorrhage. Lacho Morel MD Chest X-Ray 07/31/16 Signed Impressions: Service Date/Time: Sunday, July 31, 2016 07:49 - CONCLUSION: 1. ETT in good position. 2. Interval development of diffuse bilateral airspace disease with small right and [id number]-agocednm left pleural effusions. Differential considerations include pulmonary edema versus diffuse infection versus developing ARDS. Doug Valencia MD Brain MRI 07/31/16 Signed Impressions: Service Date/Time: Sunday, July 31, 2016 17:46 - CONCLUSION: 1. Multiple areas of restricted diffusion involving the right frontal and parietal lobes consistent with areas of acute to subacute infarction. 2. No evidence of hemorrhage, mass effect or midline shift. 3. Old area of encephalomalacia involving the right inferior frontal lobe. Morales Miller MD Objective Remarks GENERAL: Patient is 56 yo male who was left hemiplegia SKIN: Warm and dry. HEAD: Normocephalic. EYES: No scleral icterus. No injection or drainage. NECK: Supple, trachea midline. No JVD or lymphadenopathy. CARDIOVASCULAR: Regular rate and rhythm. Grade 2 systolic murmur heard in all areas RESPIRATORY: Breath sounds equal bilaterally. No accessory muscle use. GASTROINTESTINAL: Abdomen soft, non-tender, nondistended. MUSCULOSKELETAL: No cyanosis, or edema. Neuro: Patient is alert awake oriented. Persistent left hemiplegia, speech normal. Normal strength of right upper and lower extremity A/P Assessment and Plan Acute respiratory failure-resolved Right sided CVA, involving right frontoparietal region with left hemiplegia Acute kidney injury Hypertension, controlled NSTEMI Encephalopathy Anemia History of ETOH and tobacco use History of anxiety and depression. Plan Neuro: Discontinue all continuos sedation. CIWA protocol Continue with thiamine, multivitamins and folic acid. MRI brain: Multiple areas of acute to subacute infarction involving the R frontal and parietal lobes. Old area of encephalomalacia involving the right inferior frontal lobe MRA brain: Occlusion of the right internal carotid artery. Multiple missing vessels distal to the right MCA trifurcation consistent with occlusion. MRA neck: Total occlusion of the right internal carotid artery. Slightly less than 50%% eccentric stenosis of the proximal left internal carotid artery. High-grade eccentric stenosis of the left subclavian artery proximal to a diminutive left vertebral artery. ASA 81mg daily. Increased to 325 mg daily per neurology recommendation Discussed with Neuro- Dr. Velasquez and vascular surgery-Dr. Castro. No role of any surgical intervention for the carotid occlusion. Pulm: Extubated 08/02/16 tolerating well Bronchodilators, CV: Started on Cardene infusion yesterday for uncontrolled hypertension, wean to DC today Use when necessary hydralazine and labetalol. Increase Coreg to 12.5 twice a day. Start lisinopril 10 twice a day Continue with aspirin 325 mg daily, Lipitor 20 mg p.o. q.h.s. EF 30-35% by most recent echo with global hypokinesis. Patient poor candidate for invasive cardiac evaluation per Dr. Nuno with [facility], acute CVA, poor medical compliance. Recent myocardial perfusion scan also showed no defects. : Monitor renal function, I&O's and will place on electrolyte replacement protocol. IV Lasix 40 daily. Creatinine steadily improving GI: on Protonix 40 mg IV daily for GI prophylaxis. Diet per speech recommendation ID: Continue with abx (Zosyn) for possible aspiration and monitor CBC and for signs of infections(fever and WBC). Follow up on sputum and urine cxs Heme: Monitor CBC. Endo: SSI with Accu-Chek q. 4-hour for glycemic control. GI prophylaxis with Protonix 40 mg daily and DVT prophylaxis with heparin subcu and SCDs. Level 3 I have updated sons at the bedside. Patient requests to be a full code at this time and I have changed from alternate code to FULL code per patient request on 08/02/16. Patient is clinically stabilizing. I will consult hospitalist to assume care on 08/04/16. PT OT consulted. Blood pressure remains high and patient is on Cardene infusion but this should be able to be weaned off completely as the patient is able to take oral medications Silke Monk MD Aug 03, 2016 07:46
[2016-08-03] MEDS: CHLORHEXIDINE 0.12% (ORAL KIT) 15 ML CUP MT SCH ×2 (08:00→20:00)
--- NOTE | 2016-08-03 08:50 | PD.CARD.PN ---
Subjective Subjective Remarks Denies any recent CP, dyspnea. Denies dizziness, palpitations, abdominal pain. Slept well. Objective Medications Item Value Date Time Lisinopril 10 mg 08/03/16 09 (Prinivil) Q12HR/PO Carvedilol 12.5 mg 08/03/16 09 (Coreg) Q12HR/PO Aspirin 325 mg 08/03/16899 (Ecotrin Ec) DAILY/PO Atorvastatin 40 mg 08/02/162099 Calcium HS/PO (Lipitor) Furosemide 40 mg 08/02/16899 (Lasix Inj) DAILY/IV PUSH 08/02/16944 Heparin Sodium 5,000 units 07/30/162099 (Porcine) Q12HR/SQ 08/02/162001 (Heparin Inj) Vital Signs / I&O Vital Signs Date Time Temp Pulse Resp B/P Pulse Ox O2 Delivery O2 Flow Rate FiO2 08/03/16 04:00 98.1 86 30 151/64 95 08/03/16 00:00 98.0 79 15 132/63 96 08/02/16 20:07 99 45 08/02/16 20:07 93 Nasal Cannula 4.00 08/02/16 20:00 98.3 87 32 166/74 92 08/02/16 20:00 75 08/02/16 18:00 80 08/02/16 16:00 98.8 79 16 195/82 97 08/02/16 16:00 79 08/02/16 14:34 98 Nasal Cannula 4 36 08/02/16 14:00 63 08/02/16 12:01 96 35 08/02/16 12:00 58 08/02/16 12:00 98.2 58 13 165/72 95 08/02/16 12:00 40 08/02/16 11:00 40 08/02/16 10:00 78 I/O 08/02/16 08/02/16 08/02/16 08/03/16 08/03/16 08/03/16 07:00 15:00 23:00 07:00 15:00 23:00 Intake Total 459 ml 770 ml 320 ml 425 ml Output Total 300 ml 2000 ml 1850 ml 2300 ml Balance 159 ml -1230 ml -1530 ml -1875 ml Intake Oral 0 ml 0 ml 0 ml IV Total 178 ml 250 ml 320 ml 425 ml Tube Feeding 221 ml 270 ml Other 60 ml 250 ml Output Urine Total 300 ml 2000 ml 1850 ml 2300 ml # Bowel Movements 1 3 0 0 Physical Exam GENERAL: Awake. Alert. No acute distress. HEENT: Jugular venous pressure is normal. CHEST: Lungs clear to auscultation anteriorly. CARDIAC: Regular rate and rhythm without S3, S4. II/ systolic murmur along left sternal border. II/ left subclavicular murmur. ABDOMEN: Soft, no hepatosplenomegaly. Bowel sounds present. EXTREMITIES: No clubbing, cyanosis, or edema. Laboratory Laboratory Tests Test 08/02/16 08/03/16 13:20 04:53 Blood Gas Puncture Site LT RADIAL Blood Gas Patient Temperature 98.6 Blood Gas HCO3 27 mmol/L Blood Gas Base Excess 3.1 mmol/L Blood Gas Oxygen Saturation 96 % Arterial Blood pH 7.44 Arterial Blood Partial 41 mmHg Pressure CO2 Arterial Blood Partial 116 mmHg Pressure O2 Arterial Blood Oxygen Content 13.1 Vol % Arterial Blood 1.6 % Carboxyhemoglobin Arterial Blood Methemoglobin 1.0 % Blood Gas Hemoglobin 9.6 G/DL Oxygen Delivery Device VENTILATOR Blood Gas Ventilator Setting CPAP+5/PS+5 Blood Gas Inspired Oxygen 35 % Sodium Level 149 MEQ/L Potassium Level 3.4 MEQ/L Chloride Level 111 MEQ/L Carbon Dioxide Level 30.3 MEQ/L Anion Gap 8 MEQ/L Blood Urea Nitrogen 21 MG/DL Creatinine 1.32 MG/DL Estimat Glomerular Filtration 56 ML/MIN Rate Random Glucose 96 MG/DL Calcium Level 8.8 MG/DL Assessment and Plan Problem List: (1) Elevated troponin Assessment and Plan: Cardiac status stable overnight. EF down to roughly 30-35 % by most recent echo with global hypokinesis. Patient poor candidate for invasive cardiac evaluation at this time with acute CVA, poor medical compliance. Moreover, patient's recent myocardial perfusion scan also showed no defects. Suspect his cardiomyopathy is predominantly non-ischemic in origin. REC conservative management increase carvedilol dosing, continue TAE-I continue daily aspirin will be out of town until 08/09/16, please call coverage if additional cardiac questions or problems arise (2) Hypertension Assessment and Plan: Elevated BP's. Will increase carvedilol dosing further. (3) Cardiomyopathy Assessment and Plan: EF down to approximately 30-35% by echo. Appears to have global hypokinesis. Suspect his cardiomyopathy is mostly non-ischemic in etiology. Probable CHF by CXR. Good diuresis past 24 hours. Stable s/p extubation. Patient asymptomatic. REC change to oral furosemide continue beta terry, TAE-I (4) Hyperlipidemia Assessment and Plan: Overall suboptimal lipid profile. Continue atorvastatin. Code Status full code Discussed Condition With patient Problem Qualifiers (1) Hypertension: Qualified Code: I10 - Essential hypertension (2) Cardiomyopathy: Qualified Code: I42.0 - Dilated cardiomyopathy (3) Hyperlipidemia: Qualified Code: E78.2 - Mixed hyperlipidemia Gio Nuno MD Aug 03, 2016 08:50
[2016-08-03] MEDS: THIAMINE HCL 100 MG TAB PO SCH (08:56)
[2016-08-03] MEDS: DOCUSATE SODIUM 50 MG/SENNA 8.6 MG TAB PO SCH ×2 (08:57→20:23)
[2016-08-03] MEDS: FOLIC ACID 1 MG TAB PO SCH (08:57)
[2016-08-03] MEDS: ASPIRIN EC 81 MG TABEC PO SCH (08:57)
[2016-08-03] MEDS: PANTOPRAZOLE SODIUM 40 MG VIAL IV PUSH SCH (08:58)
[2016-08-03] MEDS: MULTIVITAMINS/MINERALS THERAPEUTIC TAB PO SCH (08:58)
[2016-08-03] MEDS: SODIUM CHLORIDE 0.9% FLUSH 10 ML FLUSH IV FLUSH SCH ×2 (08:58→20:28)
[2016-08-03] MEDS: LISINOPRIL 10 MG TAB PO SCH ×2 (08:59→20:22)
[2016-08-03] MEDS: CARVEDILOL 12.5 MG TAB PO SCH ×2 (08:59→20:22)
[2016-08-03] MEDS: FREE WATER G-TUBE SCH ×2 (08:59→20:29)
[2016-08-03] MEDS: HEPARIN SODIUM - SQ 10,000 UNITS/ML VIAL SQ SCH ×2 (08:59→21:41)
[2016-08-03] MEDS ORDERED: LABETALOL HCL 100 MG/20 ML VIAL IV PUSH PRN (09:00)
[2016-08-03] MEDS ORDERED: CARVEDILOL 12.5 MG TAB PO SCH (09:00)
[2016-08-03] MEDS: FUROSEMIDE 40 MG TAB PO SCH (09:03)
[2016-08-03] MEDS: POTASSIUM CHLOR 20 MEQ PREMIX 100 ML IV PRN ×2 (09:06→12:28)
--- NOTE | 2016-08-03 13:04 | HHI.HCPN ---
Reason for visit a. To assist with evaluation and management of symptoms including: Shortness of breath and debility. b. To assist medical decision maker(s) with: better understanding of current medical conditions; weighing benefits/burdens of medical treatment options; making medical treatment decisions. . Subjective/Interval History Mr. Martin is a 56 y/o male with a medical history of hypertension, alcohol abuse, tobacco abuse, anxiety, depression, hyperlipidemia. Patient presented to ED on 07/29/16 via EMS secondary to dizziness and hypertension. Patient was admitted for further evaluation and management of dehydration, renal failure and chronic elevation of troponin. Clinical condition worsened by change in mental status and hypoxia on 08/01/16 requiring intubation and mechanical ventilation. MRI revealed acute to subacute infarct. Head and neck MRA revealing total occlusion of right internal carotid artery, less than 50% stenosis to left proximal internal carotid artery and the multiple intracranial stenosis -not a surgical candidate. Patient renal function has continued to worsen. Palliative care was consulted for further clarifications of goals of care. Patient successfully extubated yesterday 08/02/16. Remains in ICU, tolerating O2 via NC at 2L. Patient alert and oriented to self, place and situation. Verbal and able to communicate needs. Patient denies any pain, shortness of breath or abdominal discomfort. Pt afebrile, stable hemodynamically. Was started yesterday on Cardene drip for hypertension, this has been since discontinued. Laboratory workup showing sodium 129, potassium 3.4, BUN/creat 21/1.32. No new imaging for review. Reviewed with patient past medical and social history. Patient originally from [place], moved to [place] over 30 years ago. Long history of homelessness. 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 Patient homeless, sleeping behind dumpsters prior to this hospitalization. He reports that he has a sister, Mili, in [place]. Both sons Joon and Alberto live locally, daughter Bev in [place]. Patient has a fiancee, Ngoc, who resides with a friend. Reviewed clinical course and current medical management. Discussed that he remains at a high risk of recurrent strokes/complications given multiple intracranial stenosis, occlusion of the right ICA, acute kidney injury, and history of acute hypoxemic respiratory failure. Patient with a fair understanding of his clinical condition. Reviewed risks, benefits and limitations of CPR, patient electing FULL code. Assisted to complete living will, patient reports that life support would be acceptable to him only for a short period of time. Patient electing his son Joon as HCS, assisting in completion of designation of HCS. Reviewed that it is unclear at this time the sequela of CVA in regards to neurological deficits, patient currently with left sided hemiparesis. Discussed likely difficult discharge plan secondary to limited resources. Pt reports that he has no place to go, both sons are at the verge of homelessness and are unable to care for him. Patient reports that he was in the process of applying for Medicaid benefits with the assistance of Tanya. Telephone conversation with pt's son/HCS Joon. Medical update provided. Discussed my recent conversation with patient and communicated pt's wishes in regards to designation of HCS and living will. Son was encouraged to discuss limitations of treatment with pt. Son asking to meet with palliative care tomorrow 08/04/16 at noon for ongoing GOC and discharge planning. Case reviewed with Dr. Monk. . Family/friend interactions See interval note. . Advance Directives Living Will: Copy in medical record Health Care Surrogate: Copy in medical record Durable Power of Health And Wellness Advisor: Never completed Advance Directive Specifics Date completed: 08/03/16. . Health Care Surrogate(s): HCS son Joon. Alt HCS son Alberto. . Documented care wishes: Living will completed 08/03/16. Standard verbiage regarding terminal condition, end-stage condition or persistent vegetative state. "life support for a short- period of time is acceptable". . Significant change in goals: FULL code. aggressive management. Objective Vital Signs Date Time Temp Pulse Resp B/P Pulse Ox O2 Delivery O2 Flow Rate FiO2 08/03/16 10:00 73 08/03/16 09:00 78 08/03/16 08:00 98.0 72 16 149/65 98 08/03/16 08:00 72 08/03/16 04:00 98.1 86 30 151/64 95 08/03/16 00:00 98.0 79 15 132/63 96 08/02/16 20:07 99 45 08/02/16 20:07 93 Nasal Cannula 4.00 08/02/16 20:00 98.3 87 32 166/74 92 08/02/16 20:00 75 08/02/16 18:00 80 08/02/16 16:00 98.8 79 16 195/82 97 08/02/16 16:00 79 08/02/16 14:34 98 Nasal Cannula 4 36 08/02/16 14:00 63 Intake & Output 08/03/16 08/03/16 07:00 19:00 Intake Total 745 ml Output Total 4150 ml Balance -3405 ml Intake Oral 0 ml IV Total 745 ml Output Urine Total 4150 ml # Bowel Movements 0 Physical Exam CONSTITUTIONAL/GENERAL: This is a thin patient resting in bed in no apparent distress. TUBES/LINES/DRAINS: PIV's, Millard catheter, SCDs. SKIN: No jaundice, rashes, or lesions. Ecchymoses on upper extremities. No wounds seen anteriorly. Skin temperature appropriate. Not diaphoretic. HEAD: Atraumatic. Normocephalic. EYES: Pupils equal and round and reactive. No scleral icterus. No injection or drainage. ENT: Hearing appears normal. Nose without bleeding or purulent drainage. Moist oral mucosa. NECK: Trachea midline. Supple, nontender. CARDIOVASCULAR: Regular rate and rhythm without murmurs, gallops, or rubs. No JVD. Peripheral pulses symmetric. RESPIRATORY/CHEST: Symmetric, unlabored respirations. O2 via NC. Clear breath sounds. GASTROINTESTINAL: Abdomen soft, flat, non-tender, nondistended. No guarding. Bowel sounds present. GENITOURINARY: Without palpable bladder distension. Millard catheter in place. MUSCULOSKELETAL: Extremities without clubbing, cyanosis, or edema. No mottling or clubbing. NEUROLOGICAL: Awake, alert x 3. verbal and communicating needs. No speech deficit noted. Following commands. Left sided hemiparesis. PSYCHIATRIC: Calm. cooperative. . Diagnostic Tests Laboratory Laboratory Tests Test 07/31/16 07/31/16 08/01/16 08/01/16 15:50 21:25 04:28 04:30 White Blood Count 11.7 TH/MM3 9.1 TH/MM3 (4.0-11.0) (4.0-11.0) Red Blood Count 3.20 MIL/MM3 3.16 MIL/MM3 (4.50-5.90) (4.50-5.90) Hemoglobin 9.3 GM/DL 9.4 GM/DL (13.0-17.0) (13.0-17.0) Hematocrit 29.2 % 28.3 % (39.0-51.0) (39.0-51.0) Mean Corpuscular Volume 91.2 FL 89.7 FL (80.0-100.0) (80.0-100.0) Mean Corpuscular Hemoglobin 29.1 PG 29.7 PG (27.0-34.0) (27.0-34.0) Mean Corpuscular Hemoglobin 31.8 % 33.1 % Concent (32.0-36.0) (32.0-36.0) Red Cell Distribution Width 17.3 % 17.0 % (11.6-17.2) (11.6-17.2) Platelet Count 179 TH/MM3 158 TH/MM3 (150-450) (150-450) Mean Platelet Volume 9.0 FL 8.9 FL (7.0-11.0) (7.0-11.0) Neutrophils (%) (Auto) 84.0 % 73.1 % (16.0-70.0) (16.0-70.0) Lymphocytes (%) (Auto) 9.1 % 16.5 % (9.0-44.0) (9.0-44.0) Monocytes (%) (Auto) 5.9 % (0.0-8.0) 7.7 % (0.0-8.0) Eosinophils (%) (Auto) 0.4 % (0.0-4.0) 1.5 % (0.0-4.0) Basophils (%) (Auto) 0.6 % (0.0-2.0) 1.2 % (0.0-2.0) Neutrophils # (Auto) 9.8 TH/MM3 6.7 TH/MM3 (1.8-7.7) (1.8-7.7) Lymphocytes # (Auto) 1.1 TH/MM3 1.5 TH/MM3 (1.0-4.8) (1.0-4.8) Monocytes # (Auto) 0.7 TH/MM3 0.7 TH/MM3 (0-0.9) (0-0.9) Eosinophils # (Auto) 0.0 TH/MM3 0.1 TH/MM3 (0-0.4) (0-0.4) Basophils # (Auto) 0.1 TH/MM3 0.1 TH/MM3 (0-0.2) (0-0.2) CBC Comment DIFF FINAL AUTO DIFF Differential Comment AUTO DIFF CONFIRMED Sodium Level 145 MEQ/L 147 MEQ/L (136-145) (136-145) Potassium Level 3.9 MEQ/L 4.1 MEQ/L (3.5-5.1) (3.5-5.1) Chloride Level 113 MEQ/L 114 MEQ/L (98-107) (98-107) Carbon Dioxide Level 27.1 MEQ/L 26.7 MEQ/L (21.0-32.0) (21.0-32.0) Anion Gap 5 MEQ/L (5-15) 6 MEQ/L (5-15) Blood Urea Nitrogen 18 MG/DL (7-18) 23 MG/DL (7-18) Creatinine 1.42 MG/DL 1.67 MG/DL (0.60-1.30) (0.60-1.30) Estimat Glomerular Filtration 52 ML/MIN (>89) 43 ML/MIN (>89) Rate Random Glucose 79 MG/DL 121 MG/DL (74-106) (74-106) Calcium Level 7.6 MG/DL 8.0 MG/DL (8.5-10.1) (8.5-10.1) Phosphorus Level 1.6 MG/DL 2.7 MG/DL (2.5-4.9) (2.5-4.9) Magnesium Level 1.6 MG/DL (1.5-2.5) Total Bilirubin 0.4 MG/DL (0.2-1.0) Aspartate Amino Transf 33 U/L (15-37) (AST/SGOT) Alanine Aminotransferase 21 U/L (12-78) (ALT/SGPT) Alkaline Phosphatase 72 U/L (45-117) Total Creatine Kinase 211 U/L (39-308) Troponin I 3.45 NG/ML 2.21 NG/ML 2.45 NG/ML (0.02-0.05) (0.02-0.05) (0.02-0.05) Total Protein 5.3 GM/DL (6.4-8.2) Albumin 2.3 GM/DL (3.4-5.0) Hemoglobin A1c 6.3 % (4.3-6.0) Triglycerides Level 78 MG/DL (42-150) Cholesterol Level 135 MG/DL (120-200) LDL Cholesterol 82 MG/DL (0-99) HDL Cholesterol 37.3 MG/DL (40.0-60.0) Cholesterol/HDL Ratio 3.61 RATIO Test 08/01/16 08/02/16 08/02/16 08/03/16 10:15 04:33 13:20 04:53 Troponin I 1.74 NG/ML (0.02-0.05) White Blood Count 9.0 TH/MM3 (4.0-11.0) Red Blood Count 3.14 MIL/MM3 (4.50-5.90) Hemoglobin 9.5 GM/DL (13.0-17.0) Hematocrit 28.3 % (39.0-51.0) Mean Corpuscular Volume 90.0 FL (80.0-100.0) Mean Corpuscular Hemoglobin 30.1 PG (27.0-34.0) Mean Corpuscular Hemoglobin 33.4 % Concent (32.0-36.0) Red Cell Distribution Width 17.2 % (11.6-17.2) Platelet Count 163 TH/MM3 (150-450) Mean Platelet Volume 9.4 FL (7.0-11.0) Neutrophils (%) (Auto) 74.7 % (16.0-70.0) Lymphocytes (%) (Auto) 16.0 % (9.0-44.0) Monocytes (%) (Auto) 8.1 % (0.0-8.0) Eosinophils (%) (Auto) 0.8 % (0.0-4.0) Basophils (%) (Auto) 0.4 % (0.0-2.0) Neutrophils # (Auto) 6.7 TH/MM3 (1.8-7.7) Lymphocytes # (Auto) 1.4 TH/MM3 (1.0-4.8) Monocytes # (Auto) 0.7 TH/MM3 (0-0.9) Eosinophils # (Auto) 0.1 TH/MM3 (0-0.4) Basophils # (Auto) 0.0 TH/MM3 (0-0.2) CBC Comment DIFF FINAL Differential Comment Sodium Level 148 MEQ/L 149 MEQ/L (136-145) (136-145) Potassium Level 4.0 MEQ/L 3.4 MEQ/L (3.5-5.1) (3.5-5.1) Chloride Level 115 MEQ/L 111 MEQ/L (98-107) (98-107) Carbon Dioxide Level 27.1 MEQ/L 30.3 MEQ/L (21.0-32.0) (21.0-32.0) Anion Gap 6 MEQ/L (5-15) 8 MEQ/L (5-15) Blood Urea Nitrogen 30 MG/DL (7-18) 21 MG/DL (7-18) Creatinine 1.58 MG/DL 1.32 MG/DL (0.60-1.30) (0.60-1.30) Estimat Glomerular Filtration 46 ML/MIN (>89) 56 ML/MIN (>89) Rate Random Glucose 133 MG/DL 96 MG/DL (74-106) (74-106) Calcium Level 8.6 MG/DL 8.8 MG/DL (8.5-10.1) (8.5-10.1) Phosphorus Level 2.6 MG/DL (2.5-4.9) Magnesium Level 2.4 MG/DL (1.5-2.5) Blood Gas Puncture Site LT RADIAL Blood Gas Patient Temperature 98.6 Blood Gas HCO3 27 mmol/L (22-26) Blood Gas Base Excess 3.1 mmol/L (-2-2) Blood Gas Oxygen Saturation 96 % (90-100) Arterial Blood pH 7.44 (7.380-7.420) Arterial Blood Partial 41 mmHg (38-42) Pressure CO2 Arterial Blood Partial 116 mmHg Pressure O2 (61-120) Arterial Blood Oxygen Content 13.1 Vol % (12.0-20.0) Arterial Blood 1.6 % (0-4) Carboxyhemoglobin Arterial Blood Methemoglobin 1.0 % (0-2) Blood Gas Hemoglobin 9.6 G/DL (12.0-16.0) Oxygen Delivery Device VENTILATOR Blood Gas Ventilator Setting CPAP+5/PS+5 Blood Gas Inspired Oxygen 35 % Result Diagram: 08/02/16 0433 08/03/16 0453 Procedures * 07/29/16 -Intubated * 08/02/16 -Extubated . Assessment and Plan Disease Oriented Problem List: (1) Acute respiratory failure (2) CVA (cerebral vascular accident) (3) Acute kidney injury (4) Elevated troponin (5) Encephalopathy Symptom Scale: (1) Shortness of breath 0-10 Scale: Unable to quantify Comment: Acute respiratory failure. Remains on ventilator support. (2) Debility 0-10 Scale: Unable to quantify Comment: Secondary to acute illness. Pertinent Non-Medical Issues Psychosocial: Patient is . He has 3 children. History of homelessness. Spiritual: No taoism affiliation. Legal: AD completed. Ethical issues impacting care: no ethical issues identified. . Important Contacts Son Joon Martin [phone], [phone]. Son Jesus Martin . Daughter -unknown name or phone number. Pending information. . Prognosis Mr. Martin is a 56 y/o male with a medical history of hypertension, alcohol abuse, tobacco abuse, anxiety, depression, hyperlipidemia. Patient presented to ED on 07/29/16 via EMS secondary to dizziness and hypertension. Patient was admitted for further evaluation and management of dehydration, renal failure and chronic elevation of troponin. Patient's clinical condition complicated by respiratory failure requiring intubation and mechanical ventilation, development of right frontal/parietal CVA acute to subacute. Further workup revealing right internal carotid artery Occluded. Left ICA 50% Occluded. Not a surgical candidate. Renal function worsening. Patient is a very high risk for further complications, continue decline and . . Code Status: Alternative Code (intubation only. May reintubate if needed.) Plan * CODE STATUS: FULL code. * HEALTHCARE DECISION-MAKING: Patient participating in healthcare decision- making. Patient with a fair insight into his clinical condition, trajectory of illness and risks for further complications, clinical decline and . Patient designating his son Joon as HCS, alt HCS son Alberto. Assisted in completion of advance directives. * GOALS OF CARE: As per patient, goals are aggressive to include FULL code and reintubation if needed. Pt reports that "life support for a short period is acceptable to [him]". * Reviewed with patient past medical and social history. Patient originally from [place], moved to [place] over 30 years ago. Long history of homelessness. 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 Patient homeless, sleeping behind dumpsters prior to this hospitalization. He reports that he has a sister, Mili, in [place]. Both sons Joon and Alberto live locally, daughter Bev in [place]. Patient has a fiancee, Ngoc, who resides with a friend. Reviewed clinical course and current medical management. Discussed that he remains at a high risk of recurrent strokes/complications given multiple intracranial stenosis, occlusion of the right ICA, acute kidney injury, and history of acute hypoxemic respiratory failure. Patient with a fair understanding of his clinical condition. Reviewed risks, benefits and limitations of CPR, patient electing FULL code. Assisted in completion of living will, patient reports that life support would be acceptable to him only for a short period of time. Reviewed that it is unclear at this time the sequela of CVA in regards to neurological deficits, patient currently with left sided hemiparesis. Discussed likely difficult discharge plan secondary to limited resources. Pt reports that he has no place to go, both sons are at the verge of homelessness and are unable to care for him. Patient reports that he was in the process of applying for Medicaid benefits with the assistance of Tanya. * SYMPTOMS: = Shortness of breath, multifactorial.Successfully extubated . Tolerating O2 via NC at 2L. = Debility: Secondary to acute illness, CVA, prolonged hospitalization. Currently with left-sided hemiparesis. Working with PT. = Pain: Secondary to acute illness and prolonged hospitalization. [place] available as needed. * Case reviewed with Dr. Monk. * Palliative care contact information has been provided to patient and family. Sons asking palliative care to f/u with family meeting on 08/04/16 at noon to cont GOC discussion and discharge plan. * Palliative care will continue to follow-up with patient and family for further clarifications of goals of care as patient's clinical course continues to evolve. . Time Spent Total Floor Time (mins): 46 (Total time to include review of medical records, physical exam, GOC conversation with patient and tel conversation with son Joon. At least 21 minutes were used in completion of living will and designation of healthcare surrogate/Advance care planning.) >50% Counseling/Coord of Care: Yes Attestation To help prompt me to consider important information that might be impacting today's encounter and assessment, information from prior notes written by myself or my colleagues may have been "brought forward" into today's note. My signature on this note, however, is an attestation that I personally performed the exam, history, and/or decision-making noted today, and, unless otherwise indicated, the interactions with patient, family, and staff as well as the review of records all occurred today. I also attest that the listed assessment and stated plan reflect my best clinical judgment today based on the combination of historical information, prior notes, and today's exam/ interactions. When time spent is documented, it refers only to time spent today by the signer, or if indicated, combined time spent today by collaborating physician/nurse practitioner. Jumana Batres Aug 03, 2016 13:04
[2016-08-03] MEDS: ATORVASTATIN 40 MG TAB PO SCH (20:22)
[2016-08-03] MEDS ORDERED: ACETAMINOPHEN/HYDROcodone 325 MG/5 MG TAB PO ONE (23:00)
[2016-08-04] VITALS (9 sets, daily range): BP systolic 100–190; BP diastolic 54–79; PULSE 54–64; RESP 16–19; TEMP 96.2–97.6; O2SAT 94–98
[2016-08-04] MEDS: ACETAMINOPHEN/HYDROcodone 325 MG/5 MG TAB PO PRN ×2 (03:42→08:11)
[2016-08-04] MEDS: INSULIN NovoLIN REGULAR SUPPLEMENTAL SCALE SQ SCH ×3 (03:47→20:00)
[2016-08-04] MEDS: CHLORHEXIDINE GLUCONATE 2 % 1 PACK (2 CLOTHS)(taper/protocol) TOPICAL SCH (04:00)
[2016-08-04] MEDS: PIPERACIL-TAZO 4.5 GM PREMIX 100 ML IV SCH ×4 (04:48→23:26)
[2016-08-04] MEDS: RESP: ALBUTEROL 2.5 MG/IPRATROPIUM 0.5 MG NEB (SCH) NEB ×3 (05:12→15:51)
[2016-08-04] MEDS: CHLORHEXIDINE 0.12% (ORAL KIT) 15 ML CUP MT SCH ×2 (08:00→20:00)
[2016-08-04] MEDS: FREE WATER G-TUBE SCH ×2 (08:06→21:00)
[2016-08-04] MEDS: HEPARIN SODIUM - SQ 10,000 UNITS/ML VIAL SQ SCH ×2 (08:11→21:25)
[2016-08-04] MEDS: ASPIRIN EC 81 MG TABEC PO SCH (08:11)
[2016-08-04] MEDS: LISINOPRIL 10 MG TAB PO SCH ×2 (08:11→21:25)
[2016-08-04] MEDS: DOCUSATE SODIUM 50 MG/SENNA 8.6 MG TAB PO SCH ×2 (08:11→21:28)
[2016-08-04] MEDS: CARVEDILOL 12.5 MG TAB PO SCH ×2 (08:11→21:25)
[2016-08-04] MEDS: PANTOPRAZOLE SODIUM 40 MG VIAL IV PUSH SCH (08:11)
[2016-08-04] MEDS: THIAMINE HCL 100 MG TAB PO SCH (08:11)
[2016-08-04] MEDS: FUROSEMIDE 40 MG TAB PO SCH (08:12)
[2016-08-04] MEDS: SODIUM CHLORIDE 0.9% FLUSH 10 ML FLUSH IV FLUSH SCH ×2 (08:20→21:00)
--- NOTE | 2016-08-04 10:09 | HHI.PR ---
Subjective Remarks Complains of left ankle pain and mild swelling. Says he is not able to move much his left arm and leg. No new motor or sensory deficit. No n/v/d/c. Eating well, no problems with swallowing. Objective Vitals Vital Signs Date Time Temp Pulse Resp B/P Pulse Ox O2 Delivery O2 Flow Rate FiO2 08/04/16 08:00 96.5 60 18 190/72 97 08/04/16 04:43 20 08/04/16 03:51 97.6 58 19 160/74 94 08/04/16 01:00 19 08/04/16 00:00 96.8 62 16 173/75 95 08/03/16 21:30 91 21 08/03/16 21:00 60 08/03/16 20:00 97.7 65 16 170/72 92 08/03/16 17:21 93 21 08/03/16 16:00 97.0 65 18 143/70 94 08/03/16 14:00 67 08/03/16 12:00 70 08/03/16 12:00 98.9 70 30 138/63 90 I/O 08/03/16 08/03/16 08/03/16 08/04/16 08/04/16 08/04/16 07:00 15:00 23:00 07:00 15:00 23:00 Intake Total 425 ml 1170 ml 240 ml 101 ml Output Total 2300 ml 2450 ml Balance -1875 ml -1280 ml 240 ml 101 ml Intake Oral 0 ml 480 ml 240 ml IV Total 425 ml 690 ml 101 ml Output Urine Total 2300 ml 2450 ml # Bowel Movements 0 2 Result Diagram: 08/02/16 0433 08/03/16 1923 Imaging Last Impressions Head CT 08/01/16 0000 Signed Impressions: Service Date/Time: Monday, August 01, 2016 16:47 - CONCLUSION: 1. Evolving right frontal and parietal lobe infarcts without evidence for hemorrhagic transformation or intercurrent hemorrhage. 2. Otherwise, no significant interval change. Doug Valencia MD Neck Magnetic Resonance Angiography 07/31/16 0000 Signed Impressions: Service Date/Time: Sunday, July 31, 2016 17:46 - CONCLUSION: Total occlusion of the right internal carotid artery. Slightly less than 50%% eccentric stenosis of the proximal left internal carotid artery. High-grade eccentric stenosis of the left subclavian artery proximal to a diminutive left vertebral artery. Lacho Morel MD Head Magnetic Resonance Angiography 07/31/16 Signed Impressions: Service Date/Time: Sunday, July 31, 2016 17:46 - CONCLUSION: 1. Occlusion of the right internal carotid artery. 2. Multiple missing vessels distal to the right MCA trifurcation consistent with occlusion. Morales Miller MD Chest X-Ray 07/31/16 Signed Impressions: Service Date/Time: Sunday, July 31, 2016 07:49 - CONCLUSION: 1. ETT in good position. 2. Interval development of diffuse bilateral airspace disease with small right and [id number] left pleural effusions. Differential considerations include pulmonary edema versus diffuse infection versus developing ARDS. Doug Valencia MD Brain MRI 07/31/16 Signed Impressions: Service Date/Time: Sunday, July 31, 2016 17:46 - CONCLUSION: 1. Multiple areas of restricted diffusion involving the right frontal and parietal lobes consistent with areas of acute to subacute infarction. 2. No evidence of hemorrhage, mass effect or midline shift. 3. Old area of encephalomalacia involving the right inferior frontal lobe. Morales Miller MD Objective Remarks Physical Exam performed in Intensive Care Unit General: Patient Intubated, Sedated Neck: Supple, no JVD, No Lymphadenopathy Lungs: Coarse breath sounds. Heart: Regular rate and rhythm Abdomen: non distended Extremities: No Clubbing, cyanosis or edema Neurological: not possible to evaluated, sedated patient. A/P Problem List: (1) Acute respiratory failure ICD Code: J96.00 Status: Acute (2) CVA (cerebral vascular accident) ICD Code: I63.9 Status: Acute (3) Encephalopathy ICD Code: G93.40 Status: Acute (4) Acute kidney injury ICD Code: N17.9 Status: Acute (5) NSTEMI (non-ST elevated myocardial infarction) ICD Code: I21.4 Status: Acute (6) Cardiomyopathy ICD Code: I42.9 Status: Chronic (7) Carotid artery stenosis ICD Code: I65.29 Status: Chronic (8) Alcohol abuse ICD Code: F10.10 Status: Chronic (9) Tobacco abuse ICD Code: Z72.0 Status: Chronic (10) Hypertension ICD Code: I10 Status: Chronic Assessment and Plan Acute ischemic stroke. Multiple intracranial stenoses Occlusion of the right ICA Neurology consulted , Dr Quinones, appreciate recommendations. Continue ASA ( increased). Neurochecks. Per Dr Quinones there is no role of surgical intervention for the carotic occlusion. Monitor VS Consult PT/OT/ST Left ankle pain and mils edema. Will check xray and doppler US. [place] for pain. Hypotension: Likely secondary to dehydration. Recent eval in ER 07/29/16 for uncontrolled HTN, s/p treatment in ER and d/c'd w/ Norvasc/Lisinopril, now w / hypotension, BP 80's systolic. S/p 2L IVF w/ improvement. At this time stable. Monitor. Acute Kidney Injury : Acute on chronic. Creatinine 2.25, previously 1.71 on . at this time Creatinine 1.29 Elevated Trop: Chronic. Trop 0.13, previously 0.55 on last admit 06/07/16, s/p eval by Cardiology, Nuc Stress 06/07/16 negative for ischemia. Will monitor, check serial enzymes for trend. Resume Statin, ASA. Hold antihypertensives and resume once stable again and off IV fluids. Alcohol Abuse: CIWA, Seizure Precautions, MVT/Thiamine/Folate replacement. Tobacco Abuse: Ativan prn if needed. No NicoDerm to avoid vasoconstriction. strongly recommended to stop smoking. Hypokalemia replaced. Monitor and replace as need. Respiratory Failure questioned, Pulmonary Edema and benzodiazepines given for CIWA protocol. Was intubated/extubated. Resolved. Now on room air, satting well. Monitor closely. Case management for d/c planning as needed. Discussed with the patient, nurse. Problem Qualifiers (1) Cardiomyopathy: Qualified Code: I42.0 - Dilated cardiomyopathy (2) Hypertension: Qualified Code: I10 - Essential hypertension Richelle Mcdermott MD Aug 04, 2016 10:09
[2016-08-04] MEDS: hydrALAZINE HCL 20 MG/ML VIAL IV PUSH PRN (10:48)
[2016-08-04] MEDS ORDERED: amLODIPine BESYLATE 5 MG TAB PO ONE (12:00)
--- NOTE | 2016-08-04 12:02 | RADRPT ---
EXAM DATE/TIME: 08/04/2016 11:25 [facility] COMPARISON: No previous studies available for comparison. INDICATIONS : Left leg pain. MEDICAL HISTORY : Hypercholesterolemia. Arthritis. Osteoarthritis. Head trauma. HTN. Anticoagulant therapy, Aspirin 81mg. Depression. Anxiety. SURGICAL HISTORY : Detached right retina. Right chest tube. ORIF right foot/ankle, pins and screws. Blood transfusions. ENCOUNTER: Initial ACUITY: 3 days PAIN SCORE: 8/10 LOCATION: Left leg. TECHNIQUE: Venous ultrasound of the leg was performed from the inguinal ligament to the proximal calf. Real-laurence e, color Doppler and spectral tracing, compression and augmentation techniques were used. FINDINGS: There is normal compressibility of the deep venous system from the inguinal region to the proximal ca lf. No echogenic clot is seen in the lumen of the common femoral, femoral, popliteal, and posterior tibial veins. There is a normal response of the venous system to proximal and distal augmentation an d respiration. CONCLUSION: No evidence of deep venous thrombosis within the left lower extremity. Joon Holguin MD on August 04, 2016 at 11:59 Board Certified Radiologist. This report was verified electronically.
--- NOTE | 2016-08-04 12:50 | RADRPT ---
EXAM DATE/TIME: 08/04/2016 10:48 [facility] COMPARISON: No previous studies available for comparison. INDICATIONS : Patient states had a stroke and has been in bed, complains of left ankle pain since stroke. MEDICAL HISTORY : Hypertension. SURGICAL HISTORY : None. ENCOUNTER: Initial ACUITY: 1 week PAIN SCORE: 8/10 LOCATION: Left ankle FINDINGS: Two view exam was performed of the left ankle. The bony structures are in normal alignment. No evid ence of fracture, dislocation, or soft tissue swelling. No radiopaque foreign bodies are seen. Bony mineralization is normal. CONCLUSION: Negative for fracture. Galen Beal MD FACR on August 04, 2016 at 12:47 Board Certified Radiologist. This report was verified electronically.
[2016-08-04] MEDS: ASPIRIN EC 325 MG TABEC PO SCH (13:08)
--- NOTE | 2016-08-04 13:09 | HHI.HCPN ---
Reason for visit a. To assist with evaluation and management of symptoms including: Shortness of breath and debility. b. To assist medical decision maker(s) with: better understanding of current medical conditions; weighing benefits/burdens of medical treatment options; making medical treatment decisions. . Subjective/Interval History Mr. Martin is a 56 y/o male with a medical history of hypertension, alcohol abuse, tobacco abuse, anxiety, depression, hyperlipidemia. Patient presented to ED on 07/29/16 via EMS secondary to dizziness and hypertension. Patient was admitted for further evaluation and management of dehydration, renal failure and chronic elevation of troponin. Clinical condition worsened by change in mental status and hypoxia on 08/01/16 requiring intubation and mechanical ventilation. MRI revealed acute to subacute infarct. Head and neck MRA revealing total occlusion of right internal carotid artery, less than 50% stenosis to left proximal internal carotid artery and the multiple intracranial stenosis -not a surgical candidate. Patient renal function has continued to worsen. Palliative care was consulted for further clarifications of goals of care. Patient successfully extubated on 08/02/16. Transferred from medical ICU into medical floor on 08/03/16. Tolerating room air. Patient alert and oriented to self, place and situation. Verbal and able to communicate needs. Patient denies any shortness of breath or abdominal discomfort. Endorsing left lower leg/ ankle pain. Lower extremity ultrasound performed, negative for DVT. Ankle x- ray obtained, pending results. Pt afebrile, stable hemodynamically. No new laboratory for review. Family meeting, in attendance patient, sons Joon and Alberto and brother-in- law Bob via telephone. Reviewed again events leading to his hospitalization, clinical course and current medical management. Reviewed difficult disposition secondary to patient's long history of homelessness and limited resources. Patient tells me that he has been working with a local homeless alliance in [place] for completion of Federal or state assistance. Patient reports that he was in the process of completing a Medicaid application prior to these hospitalization, unknown if this has been approved. Patient sons tell me that they are both unable to care for patient as they are both in the verge of homelessness. They also reported very limited resources, offer him better support to their father's need but unable to assist financially. Reviewed that patient remains at a very high risk for further complications, additional strokes, progressive decline and . Reviewed conversation with patient yesterday in which he advised that life support would be acceptable to him only for short period of time if there is a chance at recovery. Patient again confirmed this with his children. Ongoing emotional support and active listening provided to patient's sons, they reported feeling overwhelmed with patient's condition. Sons concern of patient' s inability to stay away from alcohol and cigarettes. Reviewed with sons that patient is capacitated for decision-making and that unless he is deemed incapacitated by a court of law, he is legally capable of making his own decisions even if the children are not agreement with those decisions. . Family/friend interactions See interval note. . Advance Directives Living Will: Copy in medical record Health Care Surrogate: Copy in medical record Durable Power of Agricultural Scientist: Never completed Advance Directive Specifics Date completed: 08/03/16. . Health Care Surrogate(s): [facility] son Joon. Alt [facility] son Alberto. . Documented care wishes: Living will completed 08/03/16. Standard verbiage regarding terminal condition, end-stage condition or persistent vegetative state. "life support for a short- period of time is acceptable". . Significant change in goals: Goals of care remains unchanged. . Objective Vital Signs Date Time Temp Pulse Resp B/P Pulse Ox O2 Delivery O2 Flow Rate FiO2 08/04/16 10:00 55 188/79 08/04/16 08:00 96.5 60 18 190/72 97 08/04/16 04:43 20 08/04/16 03:51 97.6 58 19 160/74 94 08/04/16 01:00 19 08/04/16 00:00 96.8 62 16 173/75 95 08/03/16 21:30 91 21 08/03/16 21:00 60 08/03/16 20:00 97.7 65 16 170/72 92 08/03/16 17:21 93 21 08/03/16 16:00 97.0 65 18 143/70 94 08/03/16 14:00 67 Physical Exam CONSTITUTIONAL/GENERAL: This is a thin patient resting in bed in no apparent distress. TUBES/LINES/DRAINS: PIV's, SCDs. SKIN: No jaundice, rashes, or lesions. Ecchymoses on upper extremities. No wounds seen anteriorly. Skin temperature appropriate. Not diaphoretic. HEAD: Atraumatic. Normocephalic. EYES: Pupils equal and round and reactive. No scleral icterus. No injection or drainage. ENT: Hearing appears normal. Nose without bleeding or purulent drainage. Moist oral mucosa. NECK: Trachea midline. Supple, nontender. CARDIOVASCULAR: Regular rate and rhythm without murmurs, gallops, or rubs. No JVD. Peripheral pulses symmetric. RESPIRATORY/CHEST: Symmetric, unlabored respirations. Clear breath sounds. GASTROINTESTINAL: Abdomen soft, flat, non-tender, nondistended. No guarding. Bowel sounds present. GENITOURINARY: Without palpable bladder distension. Millard catheter in place. MUSCULOSKELETAL: Extremities without clubbing, cyanosis, or edema. No mottling or clubbing. NEUROLOGICAL: Awake, alert x 3. verbal and communicating needs. No speech deficit noted. Following commands. Left sided hemiparesis. PSYCHIATRIC: Calm. cooperative. . Diagnostic Tests Laboratory Laboratory Tests Test 08/02/16 08/02/16 08/03/16 08/03/16 04:33 13:20 04:53 19:23 White Blood Count 9.0 TH/MM3 (4.0-11.0) Red Blood Count 3.14 MIL/MM3 (4.50-5.90) Hemoglobin 9.5 GM/DL (13.0-17.0) Hematocrit 28.3 % (39.0-51.0) Mean Corpuscular Volume 90.0 FL (80.0-100.0) Mean Corpuscular Hemoglobin 30.1 PG (27.0-34.0) Mean Corpuscular Hemoglobin 33.4 % Concent (32.0-36.0) Red Cell Distribution Width 17.2 % (11.6-17.2) Platelet Count 163 TH/MM3 (150-450) Mean Platelet Volume 9.4 FL (7.0-11.0) Neutrophils (%) (Auto) 74.7 % (16.0-70.0) Lymphocytes (%) (Auto) 16.0 % (9.0-44.0) Monocytes (%) (Auto) 8.1 % (0.0-8.0) Eosinophils (%) (Auto) 0.8 % (0.0-4.0) Basophils (%) (Auto) 0.4 % (0.0-2.0) Neutrophils # (Auto) 6.7 TH/MM3 (1.8-7.7) Lymphocytes # (Auto) 1.4 TH/MM3 (1.0-4.8) Monocytes # (Auto) 0.7 TH/MM3 (0-0.9) Eosinophils # (Auto) 0.1 TH/MM3 (0-0.4) Basophils # (Auto) 0.0 TH/MM3 (0-0.2) CBC Comment DIFF FINAL Differential Comment Sodium Level 148 MEQ/L 149 MEQ/L (136-145) (136-145) Potassium Level 4.0 MEQ/L 3.4 MEQ/L 3.7 MEQ/L (3.5-5.1) (3.5-5.1) (3.5-5.1) Chloride Level 115 MEQ/L 111 MEQ/L (98-107) (98-107) Carbon Dioxide Level 27.1 MEQ/L 30.3 MEQ/L (21.0-32.0) (21.0-32.0) Anion Gap 6 MEQ/L (5-15) 8 MEQ/L (5-15) Blood Urea Nitrogen 30 MG/DL (7-18) 21 MG/DL (7-18) Creatinine 1.58 MG/DL 1.32 MG/DL (0.60-1.30) (0.60-1.30) Estimat Glomerular Filtration 46 ML/MIN (>89) 56 ML/MIN (>89) Rate Random Glucose 133 MG/DL 96 MG/DL (74-106) (74-106) Calcium Level 8.6 MG/DL 8.8 MG/DL (8.5-10.1) (8.5-10.1) Phosphorus Level 2.6 MG/DL (2.5-4.9) Magnesium Level 2.4 MG/DL (1.5-2.5) Blood Gas Puncture Site LT RADIAL Blood Gas Patient Temperature 98.6 Blood Gas HCO3 27 mmol/L (22-26) Blood Gas Base Excess 3.1 mmol/L (-2-2) Blood Gas Oxygen Saturation 96 % (90-100) Arterial Blood pH 7.44 (7.380-7.420) Arterial Blood Partial 41 mmHg (38-42) Pressure CO2 Arterial Blood Partial 116 mmHg Pressure O2 (61-120) Arterial Blood Oxygen Content 13.1 Vol % (12.0-20.0) Arterial Blood 1.6 % (0-4) Carboxyhemoglobin Arterial Blood Methemoglobin 1.0 % (0-2) Blood Gas Hemoglobin 9.6 G/DL (12.0-16.0) Oxygen Delivery Device VENTILATOR Blood Gas Ventilator Setting CPAP+5/PS+5 Blood Gas Inspired Oxygen 35 % Result Diagram: 08/02/16 0433 08/03/16 1923 Procedures * 07/29/16 -Intubated * 08/02/16 -Extubated . Assessment and Plan Disease Oriented Problem List: (1) Acute respiratory failure (2) CVA (cerebral vascular accident) (3) Acute kidney injury (4) Elevated troponin (5) Encephalopathy Symptom Scale: (1) Shortness of breath 0-10 Scale: 0 Comment: Acute respiratory failure. Now extubated, tolerating room air. (2) Debility 0-10 Scale: Unable to quantify Comment: Secondary to acute illness. Pertinent Non-Medical Issues Psychosocial: Patient is . He has 3 children. History of homelessness. Spiritual: No zoroastrian affiliation. Legal: AD completed. Ethical issues impacting care: no ethical issues identified. . Important Contacts Son Joon Martin [phone], [phone]. Son Jesus Martin . Daughter -unknown name or phone number. Pending information. . Prognosis Mr. Martin is a 56 y/o male with a medical history of hypertension, alcohol abuse, tobacco abuse, anxiety, depression, hyperlipidemia. Patient presented to ED on 07/29/16 via EMS secondary to dizziness and hypertension. Patient was admitted for further evaluation and management of dehydration, renal failure and chronic elevation of troponin. Patient's clinical condition complicated by respiratory failure requiring intubation and mechanical ventilation, development of right frontal/parietal CVA acute to subacute. Further workup revealing right internal carotid artery Occluded. Left ICA 50% Occluded. Not a surgical candidate. Renal function worsening. Patient is a very high risk for further complications, continue decline and . . Code Status: Full Code Plan * CODE STATUS: FULL code. * HEALTHCARE DECISION-MAKING: Patient participating in healthcare decision- making. Patient with a fair insight into his clinical condition, trajectory of illness and risks for further complications, clinical decline and . Patient designating his son Joon as HCS, alt HCS son Alberto. Assisted in completion of advance directives. * GOALS OF CARE: As per patient, goals are aggressive to include FULL code and reintubation if needed. Pt reports that "life support for a short period is acceptable to [him]". * 08/04/16 -Family meeting, in attendance patient, sons Joon and Alberto and [id number] Bob via telephone. Reviewed again events leading to his hospitalization, clinical course and current medical management. Reviewed difficult disposition secondary to patient's long history of homelessness and lack of resources. Patient tells me that he has been working with the local homeless alliance in [place] for completion of Federal or/and state assistance. Patient reports that he was in the process of completing a Medicaid application prior to this hospitalization, unknown if this has been approved. Patient sons tell me that they are both unable to care for patient as they are both at the verge of homelessness themselves. They also report very limited resources, they offer support to their father but unable to assist financially. Reviewed that patient remains at a very high risk for further complications, additional stroke(s), progressive decline and . Reviewed conversation with patient yesterday in which he advised that life support would be acceptable to him only for short period of time if there is a chance at recovery. Patient again confirmed this with his children. * SYMPTOMS: = Shortness of breath, multifactorial.Successfully extubated . Tolerating room air. = Debility: Secondary to acute illness, CVA, prolonged hospitalization. Currently with left-sided hemiparesis. Working with PT. = Pain: Secondary to acute illness and prolonged hospitalization. [place] available as needed. * Case reviewed with mental health case manager Amelia. * Palliative care contact information has been provided to patient and family. * Palliative care will continue to follow-up as needed for further clarifications of goals of care as patient's clinical course continues to evolve. . Time Spent Total Floor Time (mins): 48 (Total time to include review of medical records, physical exam, lengthy goals of care/family meeting, and case review with mental health case manager. ) >50% Counseling/Coord of Care: Yes Attestation To help prompt me to consider important information that might be impacting today's encounter and assessment, information from prior notes written by myself or my colleagues may have been "brought forward" into today's note. My signature on this note, however, is an attestation that I personally performed the exam, history, and/or decision-making noted today, and, unless otherwise indicated, the interactions with patient, family, and staff as well as the review of records all occurred today. I also attest that the listed assessment and stated plan reflect my best clinical judgment today based on the combination of historical information, prior notes, and today's exam/ interactions. When time spent is documented, it refers only to time spent today by the signer, or if indicated, combined time spent today by collaborating physician/nurse practitioner. Jumana Batres Aug 04, 2016 13:09
[2016-08-04] MEDS: ACETAMINOPHEN/HYDROcodone 325 MG/7.5 MG TAB PO PRN (13:21)
[2016-08-04] MEDS: ATORVASTATIN 40 MG TAB PO SCH (21:25)
[2016-08-05] VITALS (8 sets, daily range): BP systolic 120–184; BP diastolic 59–82; PULSE 55–68; RESP 16; TEMP 96.7–98.2; O2SAT 94–98
[2016-08-05] MEDS: ACETAMINOPHEN/HYDROcodone 325 MG/7.5 MG TAB PO PRN (01:10)
[2016-08-05] MEDS: CHLORHEXIDINE GLUCONATE 2 % 1 PACK (2 CLOTHS)(taper/protocol) TOPICAL SCH (04:00)
[2016-08-05] MEDS: PIPERACIL-TAZO 4.5 GM PREMIX 100 ML IV SCH ×4 (04:40→23:19)
--- NOTE | 2016-08-05 07:51 | HHI.PR ---
Subjective Remarks In bed. No new motor deficit. Moves left leg some, doesn't move at all his left hand. Pain in his left leg improved. No edema. No cp, sob, n/v/d/c. Objective Vitals Vital Signs Date Time Temp Pulse Resp B/P Pulse Ox O2 Delivery O2 Flow Rate FiO2 08/05/16 04:00 97.7 61 16 169/74 94 08/05/16 02:10 18 08/05/16 00:00 98.1 60 16 132/59 95 08/04/16 20:09 56 08/04/16 20:00 96.2 56 16 144/65 98 08/04/16 16:00 96.8 59 18 100/56 97 08/04/16 12:00 97.1 64 18 124/54 96 08/04/16 10:00 55 188/79 08/04/16 08:00 96.5 60 18 190/72 97 I/O 08/04/16 08/04/16 08/04/16 08/05/16 08/05/16 08/05/16 07:00 15:00 23:00 07:00 15:00 23:00 Intake Total 101 ml 960 ml 240 ml 240 ml Output Total 950 ml 200 ml Balance 101 ml 10 ml 40 ml 240 ml Intake Oral 960 ml 240 ml 240 ml IV Total 101 ml Output Urine Total 950 ml 200 ml # Bowel Movements 0 1 Result Diagram: 08/02/16 0433 08/03/16 1923 Imaging Last Impressions Lower Extremity Ultrasound 08/04/16 0000 Signed Impressions: Service Date/Time: Thursday, August 04, 2016 11:25 - CONCLUSION: No evidence of deep venous thrombosis within the left lower extremity. Joon Holguin MD Ankle X-Ray 08/04/16 0000 Signed Impressions: Service Date/Time: Thursday, August 04, 2016 10:48 - CONCLUSION: Negative for fracture. Galen Beal MD FACR Head CT 08/01/16 0000 Signed Impressions: Service Date/Time: Monday, August 01, 2016 16:47 - CONCLUSION: 1. Evolving right frontal and parietal lobe infarcts without evidence for hemorrhagic transformation or intercurrent hemorrhage. 2. Otherwise, no significant interval change. Doug Valencia MD Neck Magnetic Resonance Angiography 07/31/16 0000 Signed Impressions: Service Date/Time: Sunday, July 31, 2016 17:46 - CONCLUSION: Total occlusion of the right internal carotid artery. Slightly less than 50%% eccentric stenosis of the proximal left internal carotid artery. High-grade eccentric stenosis of the left subclavian artery proximal to a diminutive left vertebral artery. Lacho Morel MD Head Magnetic Resonance Angiography 07/31/16 0000 Signed Impressions: Service Date/Time: Sunday, July 31, 2016 17:46 - CONCLUSION: 1. Occlusion of the right internal carotid artery. 2. Multiple missing vessels distal to the right MCA trifurcation consistent with occlusion. Morales Miller MD Chest X-Ray 07/31/16 0000 Signed Impressions: Service Date/Time: Sunday, July 31, 2016 07:49 - CONCLUSION: 1. ETT in good position. 2. Interval development of diffuse bilateral airspace disease with small right and [id number] left pleural effusions. Differential considerations include pulmonary edema versus diffuse infection versus developing ARDS. Doug Valencia MD Brain MRI 07/31/16 0000 Signed Impressions: Service Date/Time: Sunday, July 31, 2016 17:46 - CONCLUSION: 1. Multiple areas of restricted diffusion involving the right frontal and parietal lobes consistent with areas of acute to subacute infarction. 2. No evidence of hemorrhage, mass effect or midline shift. 3. Old area of encephalomalacia involving the right inferior frontal lobe. Morales Miller MD Objective Remarks Physical Exam performed in Intensive Care Unit General: Patient Intubated, Sedated Neck: Supple, no JVD, No Lymphadenopathy Lungs: Coarse breath sounds. Heart: Regular rate and rhythm Abdomen: non distended Extremities: No Clubbing, cyanosis or edema Neurological: not possible to evaluated, sedated patient. A/P Problem List: (1) Acute respiratory failure ICD Code: J96.00 Status: Acute (2) CVA (cerebral vascular accident) ICD Code: I63.9 Status: Acute (3) Encephalopathy ICD Code: G93.40 Status: Acute (4) Acute kidney injury ICD Code: N17.9 Status: Acute (5) NSTEMI (non-ST elevated myocardial infarction) ICD Code: I21.4 Status: Acute (6) Cardiomyopathy ICD Code: I42.9 Status: Chronic (7) Carotid artery stenosis ICD Code: I65.29 Status: Chronic (8) Alcohol abuse ICD Code: F10.10 Status: Chronic (9) Tobacco abuse ICD Code: Z72.0 Status: Chronic (10) Hypertension ICD Code: I10 Status: Chronic Assessment and Plan Acute ischemic stroke. Multiple intracranial stenoses Occlusion of the right ICA Neurology consulted , Dr Quinones, appreciate recommendations. Continue ASA ( increased). Neurochecks. Per Dr Quinones there is no role of surgical intervention for the carotic occlusion. Monitor VS Consult PT/OT/ST Left ankle pain and mils edema. Will check xray and doppler US. [place] for pain. Hypotension: Likely secondary to dehydration. Recent eval in ER 07/29/16 for uncontrolled HTN, s/p treatment in ER and d/c'd w/ Norvasc/Lisinopril, now w / hypotension, BP 80's systolic. S/p 2L IVF w/ improvement. At this time stable. Monitor. Acute Kidney Injury : Acute on chronic. Creatinine 2.25, previously 1.71 on . at this time Creatinine 1.29 Elevated Trop: Chronic. Trop 0.13, previously 0.55 on last admit 06/07/16, s/p eval by Cardiology, Nuc Stress 06/07/16 negative for ischemia. Will monitor, check serial enzymes for trend. Resume Statin, ASA. Hold antihypertensives and resume once stable again and off IV fluids. Alcohol Abuse: CIWA, Seizure Precautions, MVT/Thiamine/Folate replacement. Tobacco Abuse: Ativan prn if needed. No NicoDerm to avoid vasoconstriction. strongly recommended to stop smoking. Hypokalemia replaced. Monitor and replace as need. Respiratory Failure questioned, Pulmonary Edema and benzodiazepines given for CIWA protocol. Was intubated/extubated. Resolved. Now on room air, satting well. Monitor closely. Case management for d/c planning as needed. Discussed with the patient, nurse. Problem Qualifiers (1) Cardiomyopathy: Qualified Code: I42.0 - Dilated cardiomyopathy (2) Hypertension: Qualified Code: I10 - Essential hypertension Richelle Mcdermott MD Aug 05, 2016 07:50
[2016-08-05] MEDS: CHLORHEXIDINE 0.12% (ORAL KIT) 15 ML CUP MT SCH ×2 (08:00→20:00)
[2016-08-05] MEDS: FREE WATER G-TUBE SCH ×2 (09:00→21:00)
[2016-08-05] MEDS: CARVEDILOL 12.5 MG TAB PO SCH ×2 (09:04→20:15)
[2016-08-05] MEDS: THIAMINE HCL 100 MG TAB PO SCH (09:04)
[2016-08-05] MEDS: FUROSEMIDE 40 MG TAB PO SCH (09:04)
[2016-08-05] MEDS: SODIUM CHLORIDE 0.9% FLUSH 10 ML FLUSH IV FLUSH SCH ×2 (09:05→20:16)
[2016-08-05] MEDS: ASPIRIN EC 325 MG TABEC PO SCH (09:05)
[2016-08-05] MEDS: HEPARIN SODIUM - SQ 10,000 UNITS/ML VIAL SQ SCH ×2 (09:05→21:21)
[2016-08-05] MEDS: LISINOPRIL 10 MG TAB PO SCH ×2 (09:05→20:14)
[2016-08-05] MEDS: amLODIPine BESYLATE 5 MG TAB PO SCH (09:06)
[2016-08-05] MEDS: PANTOPRAZOLE SODIUM 40 MG VIAL IV PUSH SCH (09:06)
[2016-08-05] MEDS: DOCUSATE SODIUM 50 MG/SENNA 8.6 MG TAB PO SCH ×2 (09:17→21:00)
[2016-08-05] MEDS ORDERED: ENALAPRILAT 2.5 MG/2 ML VIAL IV PUSH PRN (13:30)
[2016-08-05] MEDS: hydrALAZINE HCL 10 MG TAB PO PRN (15:10)
[2016-08-05] MEDS: ATORVASTATIN 40 MG TAB PO SCH (20:14)
--- NOTE | 2016-08-05 21:06 | RADRPT ---
EXAM DATE/TIME: 08/05/2016 20:28 [facility] COMPARISON: CT BRAIN W/O CONTRAST, August 01, 2016, 16:47. INDICATIONS : Trauma, fall. RADIATION DOSE: 56.77 CTDIvol (mGy) MEDICAL HISTORY : Cardiovascular disease. Hypertension. SURGICAL HISTORY : Right side chest tube. ENCOUNTER: Initial ACUITY: 1 day PAIN SCALE: 3/10 LOCATION: cranial TECHNIQUE: Multiple contiguous axial images were obtained of the head. Using automated exposure control and adj ustment of the mA and/or kV according to patient size, radiation dose was kept as low as reasonably a chievable to obtain optimal diagnostic quality images. DICOM format image data is available electro nically for review and comparison. FINDINGS: CEREBRUM: The ventricles are normal for age. There are stable areas of encephalomalacia in the right frontal a nd parietal lobes. No evidence of midline shift, mass lesion, hemorrhage or acute infarction. No ext ra-axial fluid collections are seen. POSTERIOR FOSSA: The cerebellum and brainstem are intact. The 4th ventricle is midline. The cerebellopontine angle i s unremarkable. EXTRACRANIAL: The visualized portion of the orbits is intact. There is focal bilateral maxillary sinus disease. SKULL: The calvaria is intact. No evidence of skull fracture. CONCLUSION: 1. No acute abnormality is seen. 2. There is encephalomalacia in the right frontal and parietal lobes. 3. Bilateral maxillary sinus disease. Lacho Dey MD on August 05, 2016 at 21:02 Board Certified Radiologist. This report was verified electronically.
[2016-08-06] VITALS (7 sets, daily range): BP systolic 97–144; BP diastolic 52–68; PULSE 56–64; RESP 16; TEMP 96.3–98; O2SAT 95–98
[2016-08-06] MEDS: ACETAMINOPHEN/HYDROcodone 325 MG/7.5 MG TAB PO PRN (00:41)
[2016-08-06] MEDS: PIPERACIL-TAZO 4.5 GM PREMIX 100 ML IV SCH ×4 (06:00→23:44)
[2016-08-06] MEDS: CHLORHEXIDINE 0.12% (ORAL KIT) 15 ML CUP MT SCH ×2 (08:00→20:00)
--- NOTE | 2016-08-06 08:50 | HHI.PR ---
Subjective Remarks Patient in the bed. He has a small wound on his left heel, boots at the bedside , discussed with the nurse, will also consult wound care. Patient denies any fever or chills. No n/v/d/c. No headache , change in vision or new motor deficit. Objective Vitals Vital Signs Date Time Temp Pulse Resp B/P Pulse Ox O2 Delivery O2 Flow Rate FiO2 08/06/16 04:00 96.8 64 16 140/68 96 08/06/16 01:58 20 08/06/16 00:00 96.8 62 16 144/67 95 08/05/16 21:00 68 08/05/16 20:00 96.7 62 16 149/70 98 08/05/16 16:53 98.2 61 16 120/60 96 08/05/16 14:12 97.5 57 16 184/82 96 I/O 08/05/16 08/05/16 08/05/16 08/06/16 08/06/16 08/06/16 07:00 15:00 23:00 07:00 15:00 23:00 Intake Total 240 ml 480 ml 240 ml 511 ml Output Total 900 ml 750 ml 200 ml Balance 240 ml -420 ml -510 ml 311 ml Intake Oral 240 ml 480 ml 240 ml 240 ml IV Total 271 ml Output Urine Total 900 ml 750 ml 200 ml # Voids 1 # Bowel Movements 1 1 Result Diagram: 08/02/16 0433 08/03/16 1923 Imaging Last Impressions Head CT 08/05/16 0000 Signed Impressions: Service Date/Time: Friday, August 05, 2016 20:28 - CONCLUSION: 1. No acute abnormality is seen. 2. There is encephalomalacia in the right frontal and parietal lobes. 3. Bilateral maxillary sinus disease. Lacho Dey MD Lower Extremity Ultrasound 08/04/16 0000 Signed Impressions: Service Date/Time: Thursday, August 04, 2016 11:25 - CONCLUSION: No evidence of deep venous thrombosis within the left lower extremity. Joon Holguin MD Ankle X-Ray 08/04/16 0000 Signed Impressions: Service Date/Time: Thursday, August 04, 2016 10:48 - CONCLUSION: Negative for fracture. Galen Beal MD FACR Neck Magnetic Resonance Angiography 07/31/16 0000 Signed Impressions: Service Date/Time: Sunday, July 31, 2016 17:46 - CONCLUSION: Total occlusion of the right internal carotid artery. Slightly less than 50%% eccentric stenosis of the proximal left internal carotid artery. High-grade eccentric stenosis of the left subclavian artery proximal to a diminutive left vertebral artery. Lacho Morel MD Head Magnetic Resonance Angiography 07/31/16 Signed Impressions: Service Date/Time: Sunday, July 31, 2016 17:46 - CONCLUSION: 1. Occlusion of the right internal carotid artery. 2. Multiple missing vessels distal to the right MCA trifurcation consistent with occlusion. Morales Miller MD Chest X-Ray 07/31/16 Signed Impressions: Service Date/Time: Sunday, July 31, 2016 07:49 - CONCLUSION: 1. ETT in good position. 2. Interval development of diffuse bilateral airspace disease with small right and [id number]-[id number] left pleural effusions. Differential considerations include pulmonary edema versus diffuse infection versus developing ARDS. Doug Valencia MD Brain MRI 07/31/16 Signed Impressions: Service Date/Time: Sunday, July 31, 2016 17:46 - CONCLUSION: 1. Multiple areas of restricted diffusion involving the right frontal and parietal lobes consistent with areas of acute to subacute infarction. 2. No evidence of hemorrhage, mass effect or midline shift. 3. Old area of encephalomalacia involving the right inferior frontal lobe. Morales Miller MD Objective Remarks General: Patient is a cachectic 56 yo male, in bed, appears in nad. Skin: left heel with small unstageable wound. Neck: Supple, no JVD, No Lymphadenopathy. Lungs: Breath sounds clear to auscultation bilaterally. No wheezing. No accessory muscle use. Heart: Regular rate and rhythm, no murmurs. Abdomen: non distended Extremities: No Clubbing, cyanosis or edema. Very thin, muscle waisting. Neurological: Left side paresis. Able to move left leg more than left arm. A/P Problem List: (1) Acute respiratory failure ICD Code: J96.00 Status: Acute (2) CVA (cerebral vascular accident) ICD Code: I63.9 Status: Acute (3) Encephalopathy ICD Code: G93.40 Status: Acute (4) Acute kidney injury ICD Code: N17.9 Status: Acute (5) NSTEMI (non-ST elevated myocardial infarction) ICD Code: I21.4 Status: Acute (6) Cardiomyopathy ICD Code: I42.9 Status: Chronic (7) Carotid artery stenosis ICD Code: I65.29 Status: Chronic (8) Alcohol abuse ICD Code: F10.10 Status: Chronic (9) Tobacco abuse ICD Code: Z72.0 Status: Chronic (10) Hypertension ICD Code: I10 Status: Chronic Assessment and Plan Acute ischemic stroke. Multiple intracranial stenoses Occlusion of the right ICA Neurology consulted , Dr Quinones, appreciate recommendations. Continue ASA ( increased). Neurochecks. Per Dr Quinones there is no role of surgical intervention for the carotic occlusion. Monitor VS Patient went out of bed unassisted and fell 08/05/16. CT head no new abnormalities. Fall precautions Consult PT/OT/ST Left heel unstageble wound. Apply cushion boots. Consult wound care. patient with stroke and left sided paresis, he is at risk of having wounds. Severe protein calorie malnutrition BMI 16.2. 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 Left ankle pain and mils edema. Will check xray and doppler US. [place] for pain. Hypotension: Likely secondary to dehydration. Recent eval in ER 07/29/16 for uncontrolled HTN, s/p treatment in ER and d/c'd w/ Norvasc/Lisinopril, now w / hypotension, BP 80's systolic. S/p 2L IVF w/ improvement. At this time stable. Monitor. Acute Kidney Injury : Acute on chronic. Creatinine 2.25, previously 1.71 on . at this time Creatinine 1.29 Elevated Trop: Chronic. Trop 0.13, previously 0.55 on last admit 06/07/16, s/p eval by Cardiology, Nuc Stress 06/07/16 negative for ischemia. Will monitor, check serial enzymes for trend. Resume Statin, ASA. Hold antihypertensives and resume once stable again and off IV fluids. Alcohol Abuse: CIWA, Seizure Precautions, MVT/Thiamine/Folate replacement. Tobacco Abuse: Ativan prn if needed. No NicoDerm to avoid vasoconstriction. strongly recommended to stop smoking. Hypokalemia replaced. Monitor and replace as need. Respiratory Failure questioned, Pulmonary Edema and benzodiazepines given for CIWA protocol. Was intubated/extubated. Resolved. Now on room air, satting well. Monitor closely. Case management for d/c planning as needed. Discussed with the patient, nurse. Problem Qualifiers (1) Cardiomyopathy: Qualified Code: I42.0 - Dilated cardiomyopathy (2) Hypertension: Qualified Code: I10 - Essential hypertension Richelle Mcdermott MD Aug 06, 2016 08:50
[2016-08-06] MEDS: DOCUSATE SODIUM 50 MG/SENNA 8.6 MG TAB PO SCH ×2 (09:00→20:21)
[2016-08-06] MEDS: FREE WATER G-TUBE SCH ×2 (09:00→20:17)
[2016-08-06] MEDS: THIAMINE HCL 100 MG TAB PO SCH (09:24)
[2016-08-06] MEDS: ASPIRIN EC 325 MG TABEC PO SCH (09:24)
[2016-08-06] MEDS: CARVEDILOL 12.5 MG TAB PO SCH ×2 (09:24→20:16)
[2016-08-06] MEDS: amLODIPine BESYLATE 5 MG TAB PO SCH (09:24)
[2016-08-06] MEDS: FUROSEMIDE 40 MG TAB PO SCH (09:24)
[2016-08-06] MEDS: LISINOPRIL 10 MG TAB PO SCH ×2 (09:24→20:16)
[2016-08-06] MEDS: PANTOPRAZOLE SODIUM 40 MG VIAL IV PUSH SCH (09:25)
[2016-08-06] MEDS: SODIUM CHLORIDE 0.9% FLUSH 10 ML FLUSH IV FLUSH SCH ×2 (09:25→20:21)
[2016-08-06] MEDS: HEPARIN SODIUM - SQ 10,000 UNITS/ML VIAL SQ SCH ×2 (09:25→20:24)
[2016-08-06] MEDS ORDERED: PETROLEUM/SHARK LIVER OIL 60 GM TUBE RECTAL PRN (18:45)
[2016-08-06] MEDS ORDERED: SODIUM CHLOR 0.9% 1000 ML INJ 1,000 ML IV ONE (20:00)
[2016-08-06] MEDS: ATORVASTATIN 40 MG TAB PO SCH (20:22)
[2016-08-07] VITALS (10 sets, daily range): BP systolic 99–148; BP diastolic 57–81; PULSE 59–66; RESP 16–18; TEMP 96.4–98; O2SAT 95–100
[2016-08-07] MEDS: SODIUM CHLORIDE 0.9% FLUSH 10 ML FLUSH IV FLUSH PRN ×3 (00:39→23:38)
[2016-08-07] MEDS: PIPERACIL-TAZO 4.5 GM PREMIX 100 ML IV SCH ×4 (05:48→22:29)
[2016-08-07] MEDS: CHLORHEXIDINE 0.12% (ORAL KIT) 15 ML CUP MT SCH ×2 (08:00→20:00)
[2016-08-07] MEDS: FREE WATER G-TUBE SCH ×2 (09:00→20:35)
[2016-08-07] MEDS: DOCUSATE SODIUM 50 MG/SENNA 8.6 MG TAB PO SCH ×2 (09:00→21:00)
[2016-08-07] MEDS: FUROSEMIDE 40 MG TAB PO SCH (09:56)
[2016-08-07] MEDS: CARVEDILOL 12.5 MG TAB PO SCH ×2 (09:56→22:31)
[2016-08-07] MEDS: THIAMINE HCL 100 MG TAB PO SCH (09:56)
[2016-08-07] MEDS: LISINOPRIL 10 MG TAB PO SCH ×2 (09:56→22:31)
[2016-08-07] MEDS: ASPIRIN EC 325 MG TABEC PO SCH (09:56)
[2016-08-07] MEDS: amLODIPine BESYLATE 5 MG TAB PO SCH (09:56)
[2016-08-07] MEDS: HEPARIN SODIUM - SQ 10,000 UNITS/ML VIAL SQ SCH ×2 (09:57→22:32)
[2016-08-07] MEDS: PANTOPRAZOLE SODIUM 40 MG VIAL IV PUSH SCH (09:57)
[2016-08-07] MEDS: SODIUM CHLORIDE 0.9% FLUSH 10 ML FLUSH IV FLUSH SCH ×2 (09:57→22:32)
--- NOTE | 2016-08-07 11:30 | HHI.PR ---
Subjective Remarks Less pain in his left heel. No new deficit. Patient says he did well with PT. No n/v/d/c. Eating well. Appetite is better. Objective Vitals Vital Signs Date Time Temp Pulse Resp B/P Pulse Ox O2 Delivery O2 Flow Rate FiO2 08/07/16 08:00 97.4 60 16 148/71 97 08/07/16 04:00 98.0 62 16 133/61 95 08/07/16 03:56 60 08/07/16 00:17 64 08/07/16 00:00 97.7 60 16 139/65 96 08/06/16 20:04 61 08/06/16 20:00 98.0 61 16 112/56 97 08/06/16 16:00 96.3 58 16 97/52 96 08/06/16 12:20 97.7 56 16 111/55 96 I/O 08/06/16 08/06/16 08/06/16 08/07/16 08/07/16 08/07/16 07:00 15:00 23:00 07:00 15:00 23:00 Intake Total 511 ml 842 ml 435 ml 230 ml 110 ml Output Total 200 ml 1000 ml 900 ml 500 ml Balance 311 ml -158 ml -465 ml -270 ml 110 ml Intake Oral 240 ml 720 ml 240 ml 120 ml IV Total 271 ml 122 ml 195 ml 110 ml 110 ml Output Urine Total 200 ml 1000 ml 900 ml 500 ml # Voids 1 # Bowel Movements 1 2 1 Result Diagram: 08/03/16 1923 Imaging Last Impressions Head CT 08/05/16 0000 Signed Impressions: Service Date/Time: Friday, August 05, 2016 20:28 - CONCLUSION: 1. No acute abnormality is seen. 2. There is encephalomalacia in the right frontal and parietal lobes. 3. Bilateral maxillary sinus disease. Lacho Dey MD Lower Extremity Ultrasound 08/04/16 0000 Signed Impressions: Service Date/Time: Thursday, August 04, 2016 11:25 - CONCLUSION: No evidence of deep venous thrombosis within the left lower extremity. Joon Holguin MD Ankle X-Ray 08/04/16 0000 Signed Impressions: Service Date/Time: Thursday, August 04, 2016 10:48 - CONCLUSION: Negative for fracture. Galen Beal MD FACR Neck Magnetic Resonance Angiography 6/26/17 0000 Signed Impressions: Service Date/Time: Sunday, July 31, 2016 17:46 - CONCLUSION: Total occlusion of the right internal carotid artery. Slightly less than 50%% eccentric stenosis of the proximal left internal carotid artery. High-grade eccentric stenosis of the left subclavian artery proximal to a diminutive left vertebral artery. Lacho Morel MD Head Magnetic Resonance Angiography 07/31/16 Signed Impressions: Service Date/Time: Sunday, July 31, 2016 17:46 - CONCLUSION: 1. Occlusion of the right internal carotid artery. 2. Multiple missing vessels distal to the right MCA trifurcation consistent with occlusion. Morales Miller MD Chest X-Ray 07/31/16 Signed Impressions: Service Date/Time: Sunday, July 31, 2016 07:49 - CONCLUSION: 1. ETT in good position. 2. Interval development of diffuse bilateral airspace disease with small right and bimqw-eh-nixnzdmq left pleural effusions. Differential considerations include pulmonary edema versus diffuse infection versus developing ARDS. Doug Valencia MD Brain MRI 07/31/16 Signed Impressions: Service Date/Time: Sunday, July 31, 2016 17:46 - CONCLUSION: 1. Multiple areas of restricted diffusion involving the right frontal and parietal lobes consistent with areas of acute to subacute infarction. 2. No evidence of hemorrhage, mass effect or midline shift. 3. Old area of encephalomalacia involving the right inferior frontal lobe. Morales Miller MD Objective Remarks General: Patient is a cachectic 56 yo male, in bed, appears in nad. Skin: left heel with small unstageable wound. Neck: Supple, no JVD, No Lymphadenopathy. Lungs: Breath sounds clear to auscultation bilaterally. No wheezing. No accessory muscle use. Heart: Regular rate and rhythm, no murmurs. Abdomen: non distended Extremities: No Clubbing, cyanosis or edema. Very thin, muscle waisting. Neurological: Left side paresis. Able to move left leg more than left arm. A/P Problem List: (1) Acute respiratory failure ICD Code: J96.00 Status: Acute (2) CVA (cerebral vascular accident) ICD Code: I63.9 Status: Acute (3) Encephalopathy ICD Code: G93.40 Status: Acute (4) Acute kidney injury ICD Code: N17.9 Status: Acute (5) NSTEMI (non-ST elevated myocardial infarction) ICD Code: I21.4 Status: Acute (6) Cardiomyopathy ICD Code: I42.9 Status: Chronic (7) Carotid artery stenosis ICD Code: I65.29 Status: Chronic (8) Alcohol abuse ICD Code: F10.10 Status: Chronic (9) Tobacco abuse ICD Code: Z72.0 Status: Chronic (10) Hypertension ICD Code: I10 Status: Chronic Assessment and Plan Acute ischemic stroke. Multiple intracranial stenoses Occlusion of the right ICA Neurology consulted , Dr Quinones, appreciate recommendations. Continue ASA ( increased). Neurochecks. Per Dr Quinones there is no role of surgical intervention for the carotic occlusion. Monitor VS Patient went out of bed unassisted and fell 08/05/16. CT head no new abnormalities. Fall precautions Consult PT/OT/ST Left heel unstageble wound. Apply cushion boots. Consult wound care. patient with stroke and left sided paresis, he is at risk of having wounds. Severe protein calorie malnutrition BMI 15.7. Muscle waisting, weak hand knitting machine operator automatic. Add ensure supplement. Consult material planning analyst. Left ankle pain and mils edema. Will check xray and doppler US. [place] for pain. Hypotension: Likely secondary to dehydration. Recent eval in ER 07/29/16 for uncontrolled HTN, s/p treatment in ER and d/c'd w/ Norvasc/Lisinopril, now w / hypotension, BP 80's systolic. S/p 2L IVF w/ improvement. At this time stable. Monitor. Acute Kidney Injury : Acute on chronic. Creatinine 2.25, previously 1.71 on . at this time Creatinine 1.29 Elevated Trop: Chronic. Trop 0.13, previously 0.55 on last admit 06/07/16, s/p eval by Cardiology, Nuc Stress 06/07/16 negative for ischemia. Will monitor, check serial enzymes for trend. Resume Statin, ASA. Hold antihypertensives and resume once stable again and off IV fluids. Alcohol Abuse: CIWA, Seizure Precautions, MVT/Thiamine/Folate replacement. Tobacco Abuse: Ativan prn if needed. No NicoDerm to avoid vasoconstriction. strongly recommended to stop smoking. Hypokalemia replaced. Monitor and replace as need. Respiratory Failure questioned, Pulmonary Edema and benzodiazepines given for CIWA protocol. Was intubated/extubated. Resolved. Now on room air, satting well. Monitor closely. Case management for d/c planning as needed. Discussed with the patient, nurse. Problem Qualifiers (1) Cardiomyopathy: Qualified Code: I42.0 - Dilated cardiomyopathy (2) Hypertension: Qualified Code: I10 - Essential hypertension Richelle Mcdermott MD Aug 07, 2016 11:30
[2016-08-07] MEDS: ATORVASTATIN 40 MG TAB PO SCH (22:31)
[2016-08-08] VITALS (11 sets, daily range): BP systolic 89–143; BP diastolic 51–70; PULSE 53–67; RESP 16–18; TEMP 96–98.4; O2SAT 96–99
[2016-08-08] MEDS: PIPERACIL-TAZO 4.5 GM PREMIX 100 ML IV SCH ×4 (05:33→23:40)
[2016-08-08] MEDS: SODIUM CHLORIDE 0.9% FLUSH 10 ML FLUSH IV FLUSH PRN ×3 (05:34→23:38)
[2016-08-08 06:01] LABS: AUTOMATED NEUTROPHIL # 6.2 TH/MM3 (1.8-7.7); BASOPHIL # 0.1 TH/MM3 (0-0.2); BASOPHIL % 1.3 % (0.0-2.0); EOSINOPHIL # 0.4 TH/MM3 (0-0.4); EOSINOPHIL % 4.4 % (0.0-4.0); HEMATOCRIT 31.5 % (39.0-51.0); HEMO FLAGS DIFF FINAL; LYMPH % 23.4 % (9.0-44.0); LYMPHOCYTE # 2.3 TH/MM3 (1.0-4.8); MEAN CELL VOLUME 88.8 FL (80.0-100.0); MEAN CORPUSCULAR HEMOGLOBIN 29.1 PG (27.0-34.0); MEAN CORPUSCULAR HGB CONC 32.8 % (32.0-36.0); MONO % 8.2 % (0.0-8.0); NEUT % 62.7 % (16.0-70.0); PLATELET COUNT 332 TH/MM3 (150-450); RED BLOOD COUNT 3.55 MIL/MM3 (4.50-5.90); WHITE BLOOD COUNT 9.9 TH/MM3 (4.0-11.0)
[2016-08-08 06:26] LABS: BICARBONATE 29.6 MEQ/L (21.0-32.0); MAGNESIUM 2.2 MG/DL (1.5-2.5); POTASSIUM 3.8 MEQ/L (3.5-5.1)
[2016-08-08] MEDS: CHLORHEXIDINE 0.12% (ORAL KIT) 15 ML CUP MT SCH ×2 (08:00→20:00)
[2016-08-08] MEDS: DOCUSATE SODIUM 50 MG/SENNA 8.6 MG TAB PO SCH ×2 (09:00→20:20)
[2016-08-08] MEDS: FREE WATER G-TUBE SCH ×2 (09:00→20:06)
[2016-08-08] MEDS: HEPARIN SODIUM - SQ 10,000 UNITS/ML VIAL SQ SCH ×2 (09:47→20:20)
[2016-08-08] MEDS: CARVEDILOL 12.5 MG TAB PO SCH ×2 (09:48→20:20)
[2016-08-08] MEDS: FUROSEMIDE 40 MG TAB PO SCH (09:48)
[2016-08-08] MEDS: ASPIRIN EC 325 MG TABEC PO SCH (09:48)
[2016-08-08] MEDS: THIAMINE HCL 100 MG TAB PO SCH (09:48)
[2016-08-08] MEDS: LISINOPRIL 10 MG TAB PO SCH ×2 (09:48→20:20)
[2016-08-08] MEDS: amLODIPine BESYLATE 5 MG TAB PO SCH (09:49)
[2016-08-08] MEDS: SODIUM CHLORIDE 0.9% FLUSH 10 ML FLUSH IV FLUSH SCH ×2 (09:49→20:21)
[2016-08-08] MEDS: PANTOPRAZOLE SODIUM 40 MG VIAL IV PUSH SCH (09:49)
--- NOTE | 2016-08-08 11:08 | HHI.PR ---
Subjective Remarks Tolerated PT and feels he is improving. No new deficit. No n/v/d/c. Moving better his left leg and left arm. Feels lightheaded when sitting or standing. Objective Vitals Vital Signs Date Time Temp Pulse Resp B/P Pulse Ox O2 Delivery O2 Flow Rate FiO2 08/08/16 09:28 96.0 67 134/67 99 08/08/16 04:11 59 08/08/16 03:59 97.6 64 16 131/60 97 08/08/16 00:38 97.4 63 16 118/57 96 08/08/16 00:36 59 08/07/16 22:28 66 135/81 08/07/16 21:25 96.4 64 16 99/57 100 08/07/16 20:13 59 08/07/16 16:00 96.9 64 16 132/74 97 08/07/16 12:00 96.8 60 18 128/67 98 I/O 08/07/16 08/07/16 08/07/16 08/08/16 08/08/16 08/08/16 06:59 14:59 22:59 06:59 14:59 22:59 Intake Total 230 ml 243 ml 880 ml 710 ml Output Total 500 ml 200 ml 500 ml 700 ml Balance -270 ml 43 ml 380 ml 10 ml Intake Oral 120 ml 880 ml 360 ml IV Total 110 ml 243 ml 350 ml Output Urine Total 500 ml 200 ml 500 ml 700 ml # Bowel Movements 4 0 Result Diagram: 08/08/16 0428 08/08/16 0428 Imaging Last Impressions Head CT 08/05/16 0000 Signed Impressions: Service Date/Time: Friday, August 05, 2016 20:28 - CONCLUSION: 1. No acute abnormality is seen. 2. There is encephalomalacia in the right frontal and parietal lobes. 3. Bilateral maxillary sinus disease. Lacho Dey MD Lower Extremity Ultrasound 08/04/16 0000 Signed Impressions: Service Date/Time: Thursday, August 04, 2016 11:25 - CONCLUSION: No evidence of deep venous thrombosis within the left lower extremity. Joon Holguin MD Ankle X-Ray 08/04/16 0000 Signed Impressions: Service Date/Time: Thursday, August 04, 2016 10:48 - CONCLUSION: Negative for fracture. Galen Beal MD FACR Neck Magnetic Resonance Angiography 07/31/16 Signed Impressions: Service Date/Time: Sunday, July 31, 2016 17:46 - CONCLUSION: Total occlusion of the right internal carotid artery. Slightly less than 50%% eccentric stenosis of the proximal left internal carotid artery. High-grade eccentric stenosis of the left subclavian artery proximal to a diminutive left vertebral artery. Lacho Morel MD Head Magnetic Resonance Angiography 07/31/16 Signed Impressions: Service Date/Time: Sunday, July 31, 2016 17:46 - CONCLUSION: 1. Occlusion of the right internal carotid artery. 2. Multiple missing vessels distal to the right MCA trifurcation consistent with occlusion. Morales Miller MD Chest X-Ray 07/31/16 Signed Impressions: Service Date/Time: Sunday, July 31, 2016 07:49 - CONCLUSION: 1. ETT in good position. 2. Interval development of diffuse bilateral airspace disease with small right and fatmp-im-skmwfzvp left pleural effusions. Differential considerations include pulmonary edema versus diffuse infection versus developing ARDS. Doug Valencia MD Brain MRI 07/31/16 Signed Impressions: Service Date/Time: Sunday, July 31, 2016 17:46 - CONCLUSION: 1. Multiple areas of restricted diffusion involving the right frontal and parietal lobes consistent with areas of acute to subacute infarction. 2. No evidence of hemorrhage, mass effect or midline shift. 3. Old area of encephalomalacia involving the right inferior frontal lobe. Morales Miller MD Objective Remarks General: Patient is a cachectic 56 yo male, in bed, appears in nad. Skin: left heel with small unstageable wound. Neck: Supple, no JVD, No Lymphadenopathy. Lungs: Breath sounds clear to auscultation bilaterally. No wheezing. No accessory muscle use. Heart: Regular rate and rhythm, no murmurs. Abdomen: non distended Extremities: No Clubbing, cyanosis or edema. Very thin, muscle waisting. Neurological: Left side paresis. Able to move left leg more than left arm. A/P Problem List: (1) Acute respiratory failure ICD Code: J96.00 Status: Acute (2) CVA (cerebral vascular accident) ICD Code: I63.9 Status: Acute (3) Encephalopathy ICD Code: G93.40 Status: Acute (4) Acute kidney injury ICD Code: N17.9 Status: Acute (5) NSTEMI (non-ST elevated myocardial infarction) ICD Code: I21.4 Status: Acute (6) Cardiomyopathy ICD Code: I42.9 Status: Chronic (7) Carotid artery stenosis ICD Code: I65.29 Status: Chronic (8) Alcohol abuse ICD Code: F10.10 Status: Chronic (9) Tobacco abuse ICD Code: Z72.0 Status: Chronic (10) Hypertension ICD Code: I10 Status: Chronic Assessment and Plan Acute ischemic stroke. Multiple intracranial stenoses Occlusion of the right ICA Neurology consulted , Dr Quinones, appreciate recommendations. Continue ASA ( increased). Neurochecks. Per Dr Quinones there is no role of surgical intervention for the carotic occlusion. Monitor VS Patient went out of bed unassisted and fell 08/05/16. CT head no new abnormalities. Fall precautions Consult PT/OT/ST Left heel unstageble wound. Apply cushion boots. Consult wound care. patient with stroke and left sided paresis, he is at risk of having wounds. Severe protein calorie malnutrition BMI 15.7. Muscle waisting, weak hand literacy consultant. Add ensure supplement. Consult air bag curer. Left ankle pain and mils edema. Will check xray and doppler US. [place] for pain. Hypotension: Likely secondary to dehydration. Recent eval in ER 07/29/16 for uncontrolled HTN, s/p treatment in ER and d/c'd w/ Norvasc/Lisinopril, now w / hypotension, BP 80's systolic. S/p 2L IVF w/ improvement. At this time stable. Monitor. Acute Kidney Injury : Acute on chronic. Creatinine 2.25, previously 1.71 on . at this time Creatinine 1.29 Elevated Trop: Chronic. Trop 0.13, previously 0.55 on last admit 06/07/16, s/p eval by Cardiology, Nuc Stress 06/07/16 negative for ischemia. Will monitor, check serial enzymes for trend. Resume Statin, ASA. Hold antihypertensives and resume once stable again and off IV fluids. Alcohol Abuse: CIWA, Seizure Precautions, MVT/Thiamine/Folate replacement. Tobacco Abuse: Ativan prn if needed. No NicoDerm to avoid vasoconstriction. strongly recommended to stop smoking. Hypokalemia replaced. Monitor and replace as need. Respiratory Failure questioned, Pulmonary Edema and benzodiazepines given for CIWA protocol. Was intubated/extubated. Resolved. Now on room air, satting well. Monitor closely. Case management for d/c planning as needed. Discussed with the patient, nurse. Problem Qualifiers (1) Cardiomyopathy: Qualified Code: I42.0 - Dilated cardiomyopathy (2) Hypertension: Qualified Code: I10 - Essential hypertension Richelle Mcdermott MD Aug 08, 2016 11:08
[2016-08-08] MEDS: ATORVASTATIN 40 MG TAB PO SCH (20:20)
[2016-08-09] VITALS (9 sets, daily range): BP systolic 68–134; BP diastolic 52–69; PULSE 51–65; RESP 16–17; TEMP 96.5–97.4; O2SAT 97–100
[2016-08-09 00:16] LABS: C. DIFF EPI 027 PRESUMPTIVE NEGATIVE (NEGATIVE); C. DIFF TOXIN PCR NEGATIVE (NEGATIVE)
[2016-08-09] MEDS: SODIUM CHLORIDE 0.9% FLUSH 10 ML FLUSH IV FLUSH PRN ×2 (00:55→06:16)
[2016-08-09] MEDS: PIPERACIL-TAZO 4.5 GM PREMIX 100 ML IV SCH (05:08)
[2016-08-09] MEDS: DOCUSATE SODIUM 50 MG/SENNA 8.6 MG TAB PO SCH ×2 (07:53→21:00)
[2016-08-09] MEDS: CHLORHEXIDINE 0.12% (ORAL KIT) 15 ML CUP MT SCH ×2 (08:00→20:00)
[2016-08-09] MEDS: FREE WATER G-TUBE SCH ×2 (08:32→21:00)
[2016-08-09] MEDS ORDERED: CLOPIDOGREL 75 MG TAB PO ONE (09:30)
--- NOTE | 2016-08-09 09:32 | HHI.PR ---
Subjective Remarks Follow up for acute stroke, Acute kidney injury. Patient is doing well. He cannot ambulate yet but denies any new neurological symptoms, no chest pain, shortness of breath, fever, chills. Objective Vitals Vital Signs Date Time Temp Pulse Resp B/P Pulse Ox O2 Delivery O2 Flow Rate FiO2 08/09/16 08:00 96.5 65 16 134/68 100 08/09/16 04:00 96.6 59 16 125/58 97 08/09/16 04:00 61 08/09/16 00:06 56 08/09/16 00:00 97.4 54 16 107/69 100 08/08/16 20:18 66 08/08/16 20:14 98.4 61 16 143/70 99 08/08/16 16:00 97.1 53 16 110/56 98 08/08/16 15:00 98/52 08/08/16 12:00 96.2 56 18 89/51 97 I/O 08/08/16 08/08/16 08/08/16 08/09/16 08/09/16 08/09/16 07:00 15:00 23:00 07:00 15:00 23:00 Intake Total 710 ml 840 ml 500 ml 220 ml Output Total 700 ml 500 ml 500 ml 200 ml 200 ml Balance 10 ml 340 ml 0 ml 20 ml -200 ml Intake Oral 360 ml 840 ml 300 ml IV Total 350 ml 200 ml 220 ml Output Urine Total 700 ml 500 ml 500 ml 200 ml 200 ml # Bowel Movements 0 2 2 Result Diagram: 08/08/16 0428 08/08/16 0428 Imaging Last Impressions Head CT 08/05/16 0000 Signed Impressions: Service Date/Time: Friday, August 05, 2016 20:28 - CONCLUSION: 1. No acute abnormality is seen. 2. There is encephalomalacia in the right frontal and parietal lobes. 3. Bilateral maxillary sinus disease. Lacho Dey MD Lower Extremity Ultrasound 08/04/16 0000 Signed Impressions: Service Date/Time: Thursday, August 04, 2016 11:25 - CONCLUSION: No evidence of deep venous thrombosis within the left lower extremity. Joon Holguin MD Ankle X-Ray 08/04/16 0000 Signed Impressions: Service Date/Time: Thursday, August 04, 2016 10:48 - CONCLUSION: Negative for fracture. Galen Beal MD FACR Neck Magnetic Resonance Angiography 07/31/16 Signed Impressions: Service Date/Time: Sunday, July 31, 2016 17:46 - CONCLUSION: Total occlusion of the right internal carotid artery. Slightly less than 50%% eccentric stenosis of the proximal left internal carotid artery. High-grade eccentric stenosis of the left subclavian artery proximal to a diminutive left vertebral artery. Lacho Morel MD Head Magnetic Resonance Angiography 07/31/16 Signed Impressions: Service Date/Time: Sunday, July 31, 2016 17:46 - CONCLUSION: 1. Occlusion of the right internal carotid artery. 2. Multiple missing vessels distal to the right MCA trifurcation consistent with occlusion. Morales Miller MD Chest X-Ray 07/31/16 Signed Impressions: Service Date/Time: Sunday, July 31, 2016 07:49 - CONCLUSION: 1. ETT in good position. 2. Interval development of diffuse bilateral airspace disease with small right and csnre-wa-kcotblwx left pleural effusions. Differential considerations include pulmonary edema versus diffuse infection versus developing ARDS. Doug Valencia MD Brain MRI 07/31/16 Signed Impressions: Service Date/Time: Sunday, July 31, 2016 17:46 - CONCLUSION: 1. Multiple areas of restricted diffusion involving the right frontal and parietal lobes consistent with areas of acute to subacute infarction. 2. No evidence of hemorrhage, mass effect or midline shift. 3. Old area of encephalomalacia involving the right inferior frontal lobe. Morales Miller MD Objective Remarks GENERAL: AOX3, NAD. SKIN: Warm and dry. HEAD: Normocephalic. EYES: No scleral icterus. No injection or drainage. NECK: Supple, trachea midline. No JVD or lymphadenopathy. CARDIOVASCULAR: Regular rate and rhythm without murmurs, gallops, or rubs. RESPIRATORY: Breath sounds equal bilaterally. No accessory muscle use. GASTROINTESTINAL: Abdomen soft, non-tender, nondistended. MUSCULOSKELETAL: No cyanosis, or edema. Left side paresis. Able to move left leg more than left arm. BACK: Nontender without obvious deformity. No CVA tenderness. Procedures 08/01/2016b Echo The left ventricular systolic function is vifpdnwb-ve-pudhznw reduced with an estimated ejection fraction in the range of 35-40%. Mild to moderate concentric left ventricular hypertrophy. Global hypokinesis possibly more pronounced in the septum. The anterior wall is not well seen. Normal left ventricular size. Structurally normal mitral valve. There is trace mitral valve regurgitation. A/P Problem List: (1) Acute respiratory failure ICD Code: J96.00 Status: Acute (2) CVA (cerebral vascular accident) ICD Code: I63.9 Status: Acute (3) Encephalopathy ICD Code: G93.40 Status: Acute (4) Acute kidney injury ICD Code: N17.9 Status: Acute (5) NSTEMI (non-ST elevated myocardial infarction) ICD Code: I21.4 Status: Acute (6) Cardiomyopathy ICD Code: I42.9 Status: Chronic (7) Carotid artery stenosis ICD Code: I65.29 Status: Chronic (8) Alcohol abuse ICD Code: F10.10 Status: Chronic (9) Tobacco abuse ICD Code: Z72.0 Status: Chronic (10) Hypertension ICD Code: I10 Status: Chronic Assessment and Plan Mr. Porter is a 56-year-old Homeless male with a PMH of Anxiety, Depression, HTN, Hyperlipidemia, Alcohol Abuse and Tobacco Abuse who was brought to the ER by EMS secondary to episode of dizziness and hypotension. The patient was admitted to the medical floor and placed on IV fluids normal saline at 125 mL an hour and his renal function was improving with creatinine down to 1.29. [facility] the patient was found hypoxic in respiratory distress and with altered mental status and subsequently patient was transferred to ICU and was intubated. Work up in the ICU indicated right frontal /parietal CVA with right ICA totally occluded. Patient was extubated on 2016. - Acute ischemic stroke right frontal and parietal lobes. - Right ICA occlusion - Discussed with Dr. Quinones (Neurology). - Will discontinue Aspirin 325mg and start patient on Plavix 75 and Aspirin 81 mg both Qday. - Continue PT/OT. - Difficult placement due to lack of insurance. - Hypotension - Manual blood pressure this morning was systolic around 100. - Will discontinue Lisinopril, Furosemide, Carvedilol - Continue Amlodipine 5mg Qday with holding parameters. Vasotec and Hydralazine PRN. - Alcohol abuse - Continue CIWA protocol, thiamine Full code. Heparin SQ. Problem Qualifiers (1) Cardiomyopathy: Qualified Code: I42.0 - Dilated cardiomyopathy (2) Hypertension: Qualified Code: I10 - Essential hypertension Sonja Marley DO Aug 09, 2016 9:32 am
[2016-08-09] MEDS: PANTOPRAZOLE SODIUM 40 MG VIAL IV PUSH SCH (09:52)
--- NOTE | 2016-08-09 09:52 | HHI.PR ---
Review/Management Diagnosis 1. Acute ischemic stroke. 2. Multiple intracranial stenoses. 3. Occlusion of the right ICA. 4. Hypertension. 5. SHANTELLE. 6. History of ethanol and tobacco abuse. 7. Acute hypoxemic respiratory failure. 8. Elevation in the troponin. Plan 1. Neurological checks q. 4 hourly. 2. CIWA protocol. 3. Aspirin 81 mg 4. Plavix 75mg 5. There is no role of any surgical intervention for the carotid occlusion. 6. There is no indication for starting anticoagulation. 7. DVT prophylaxis. 8. GI prophylaxis. 9. PT/OT, recommendations are appreciated 10. Discussed the case with the veneer jointer helper/attending physician, we agreed on the plan of care Diagnosis/Plan: Subjective Subjective Comments Patient is on a progressive unit No new complaints Speech has improved, able to swallow and eat without difficulty Follow up head CT scan is unremarkable Active Medications Current Medications Medications (Trade) Dose Ordered Sig/Mohit Route Start Time Stop Time Status Last Admin (Vitamin B1) 100 mg DAILY PO 07/30/16 09:00 08/08/16 09:48 (Romazicon Inj) 0.2 mg Q1M PRN IV PUSH 07/29/16 21:15 (Ativan) 1 mg Q4H PRN PO 07/29/16 21:15 (Ativan Inj) 1 mg Q4H PRN IV PUSH 07/29/16 21:15 (Ativan) 2 mg Q2H PRN PO 07/29/16 21:15 (Ativan Inj) 2 mg Q2H PRN IV PUSH 07/29/16 21:15 07/31/16 07:15 (Ativan Inj) 2 mg Q1H PRN IV PUSH 07/29/16 21:15 (Ativan Inj) 2 mg Q15M PRN IV PUSH 07/29/16 21:15 (Haldol Inj) 2 mg Q15M PRN IM 07/29/16 21:15 (NS Flush) 2 ml UNSCH PRN IV FLUSH 07/29/16 21:15 08/09/16 06:16 (NS Flush) 2 ml BID IV FLUSH 07/30/16 09:00 08/08/16 20:21 (Zofran Inj) 4 mg Q6H PRN IVP 07/29/16 21:15 (Tylenol) 650 mg Q6H PRN PO 07/29/16 21:15 (Timber 5-325 Mg) 1 tab Q4H PRN PO 07/29/16 21:15 08/04/16 08:11 (Kajal-Colace) 1 tab BID PO 07/30/16 09:00 08/05/16 09:17 (Milk Of Magnesia Liq) 30 ml Q12H PRN PO 07/29/16 21:15 (Senokot) 17.2 mg Q12H PRN PO 07/29/16 21:15 (Dulcolax Supp) 10 mg DAILY PRN RECTAL 07/29/16 21:15 (Lactulose Liq) 30 ml DAILY PRN PO 07/29/16 21:15 Heparin Sodium (Porcine) 5000 units 5,000 units Q12HR SQ 07/30/16 21:00 08/08/16 20:20 (Diprivan 1000 Mg/100ml Inj) 100 ml @ 0 mls/hr TITRATE IV 07/31/16 08:00 07/31/16 08:26 (Peridex 0.12% Liq) 15 ml BID@08,20 MT 07/31/16 08:00 08/02/16 09:45 Miscellaneous Information Patient in critical care unit? Ass... [id number] .XX 07/31/16 08:15 07/31/16 08:15 Pantoprazole Sodium 40 mg 40 mg Q24H IV PUSH 07/31/16 09:00 08/08/16 09:49 (Zosyn 4.5 Gm Premix) 100 ml @ 200 mls/hr Q6H IV 07/31/16 11:00 08/09/16 05:08 (Free Water) VOLUME OF WATER: ( 250 ) ML Q12HR G-TUBE 08/01/16 09:00 08/02/16 09:00 (Lipitor) 40 mg HS PO 08/02/16 21:00 08/08/16 20:20 (Apresoline Inj) 20 mg Q4H PRN IV PUSH 08/02/16 14:30 08/04/16 10:48 (Prinivil) 10 mg Q12HR PO 08/03/16 09:00 08/08/16 20:20 (Trandate Inj) 20 mg Q4H PRN IV PUSH 08/03/16 09:00 (Coreg) 25 mg Q12HR PO 08/03/16 09:00 08/08/16 20:20 (Lasix) 40 mg DAILY PO 08/03/16 09:00 08/08/16 09:48 (Timber 7.5-325 Mg) 1 tab Q4H PRN PO 08/04/16 11:00 08/06/16 00:41 (Norvasc) 5 mg DAILY PO 08/05/16 09:00 08/08/16 09:49 (Vasotec Inj) 2.5 mg Q6H PRN IV PUSH 08/05/16 13:30 (Apresoline) 10 mg Q6HR PRN PO 08/05/16 13:30 08/05/16 15:10 (Preparation H Oint) 1 applic TID PRN RECTAL 08/06/16 18:45 (Ecotrin Ec) 81 mg DAILY PO 08/10/16 09:00 UNV (Plavix) 75 mg ONCE ONCE PO 08/09/16 09:30 08/09/16 09:31 UNV (Plavix) 75 mg DAILY PO 08/10/16 09:00 UNV Allergies Allergies Coded Allergies No Known Allergies (Verified07/29/16) Review of Systems All other ROS: ROS reviewed as documented in chart Exam I&O / VS 08/08/16 08/08/16 08/09/16 15:00 23:00 07:00 Intake Total 840 ml 500 ml 220 ml Output Total 500 ml 500 ml 200 ml Balance 340 ml 0 ml 20 ml Intake Oral 840 ml 300 ml IV Total 200 ml 220 ml Output Urine Total 500 ml 500 ml 200 ml # Bowel Movements 2 2 Vital Signs Date Time Temp Pulse Resp B/P Pulse Ox O2 Delivery O2 Flow Rate FiO2 08/09/16 08:00 96.5 65 16 134/68 100 08/09/16 04:00 96.6 59 16 125/58 97 08/09/16 04:00 61 08/09/16 00:06 56 08/09/16 00:00 97.4 54 16 107/69 100 08/08/16 20:18 66 08/08/16 20:14 98.4 61 16 143/70 99 08/08/16 16:00 97.1 53 16 110/56 98 08/08/16 15:00 98/52 08/08/16 12:00 96.2 56 18 89/51 97 Exam Comments GENERAL: awakw, alert, not in apparent distress. HEENT: Atraumatic, normocephalic. Pupils are equal, round reacting to light. NECK: Supple. Trachea in the midline. no signs of meningeal irritation. CARDIOVASCULAR: normal sinus rhythm. RESPIRATORY: Bilateral equal air entry. No wheezes. ABDOMEN: Soft, nontender. EXTREMITIES: No cyanosis, clubbing or edema. NEUROLOGIC: awake, alert, otirnetedx3, intact speech, intact speech content, no dysphasia, Pupils 2 mm bilateral, reacting to light. cranial nerve exam is grossly normal, left UE shoulder abd, elbow ext, and wrist ext 1/5, elbow flex 4 -/5, left LE hip flex, knee ext and foot dorsiflex is 5-/5, the rest of the motor exam on the left and entire right side is 5/5, no abnormal movements. reflexes 2+ b/l , plantars are left upgoing, right downgoing Objective Micro and Labs Laboratory Tests Test 08/08/16 21:50 Stool C. difficile Toxin (PCR) NEGATIVE Stl C. difficile Toxin PRESUMPTIVE Epiderm 027 NEGATIVE Vinh Quinones MD Aug 09, 2016 09:52 Vinh Quinones MD Aug 09, 2016 09:52
[2016-08-09] MEDS: CARVEDILOL 12.5 MG TAB PO SCH (09:53)
[2016-08-09] MEDS: THIAMINE HCL 100 MG TAB PO SCH (09:53)
[2016-08-09] MEDS: FUROSEMIDE 40 MG TAB PO SCH (09:53)
[2016-08-09] MEDS: LISINOPRIL 10 MG TAB PO SCH (09:53)
[2016-08-09] MEDS: amLODIPine BESYLATE 5 MG TAB PO SCH (09:53)
[2016-08-09] MEDS: HEPARIN SODIUM - SQ 10,000 UNITS/ML VIAL SQ SCH ×2 (09:53→21:33)
[2016-08-09] MEDS: SODIUM CHLORIDE 0.9% FLUSH 10 ML FLUSH IV FLUSH SCH ×2 (09:54→21:00)
[2016-08-09] MEDS: ATORVASTATIN 40 MG TAB PO SCH (21:33)
[2016-08-10] VITALS (8 sets, daily range): BP systolic 133–153; BP diastolic 60–76; PULSE 58–88; RESP 16–18; TEMP 96.6–97.9; O2SAT 97–100
[2016-08-10] MEDS: CHLORHEXIDINE 0.12% (ORAL KIT) 15 ML CUP MT SCH ×2 (08:00→20:00)
--- NOTE | 2016-08-10 08:50 | HHI.PR ---
Subjective Remarks Follow up for acute stroke, Acute kidney injury. Patient is currently doing well. He feels that his left-sided weakness is improving. Denies any chest pain, shortness of breath, fever or chills. Objective Vitals Vital Signs Date Time Temp Pulse Resp B/P Pulse Ox O2 Delivery O2 Flow Rate FiO2 08/10/16 08:00 97.2 72 16 134/76 97 08/10/16 04:00 96.6 71 17 144/69 99 08/10/16 04:00 69 08/10/16 00:00 59 08/10/16 00:00 97.0 88 18 145/60 100 08/09/16 20:30 60 08/09/16 20:00 97.1 57 17 128/60 99 08/09/16 16:00 96.8 62 16 106/64 98 Manual Cuff/Auscultation 08/09/16 11:55 100/59 08/09/16 11:50 96.6 51 16 68/52 97 Automatic Cuff I/O 08/09/16 08/09/16 08/09/16 08/10/16 08/10/16 08/10/16 07:00 15:00 23:00 07:00 15:00 23:00 Intake Total 220 ml 480 ml 680 ml Output Total 200 ml 200 ml 150 ml 200 ml Balance 20 ml 280 ml -150 ml 480 ml Intake Oral 480 ml 680 ml IV Total 220 ml Output Urine Total 200 ml 200 ml 150 ml 200 ml # Bowel Movements 3 1 Result Diagram: 08/08/16 0428 08/08/16 0428 Imaging Last Impressions Head CT 08/05/16 0000 Signed Impressions: Service Date/Time: Friday, August 05, 2016 20:28 - CONCLUSION: 1. No acute abnormality is seen. 2. There is encephalomalacia in the right frontal and parietal lobes. 3. Bilateral maxillary sinus disease. Lacho Dey MD Lower Extremity Ultrasound 08/04/16 0000 Signed Impressions: Service Date/Time: Thursday, August 04, 2016 11:25 - CONCLUSION: No evidence of deep venous thrombosis within the left lower extremity. Joon Holguin MD Ankle X-Ray 08/04/16 0000 Signed Impressions: Service Date/Time: Thursday, August 04, 2016 10:48 - CONCLUSION: Negative for fracture. Galen Beal MD FACR Neck Magnetic Resonance Angiography 07/31/16 Signed Impressions: Service Date/Time: Sunday, July 31, 2016 17:46 - CONCLUSION: Total occlusion of the right internal carotid artery. Slightly less than 50%% eccentric stenosis of the proximal left internal carotid artery. High-grade eccentric stenosis of the left subclavian artery proximal to a diminutive left vertebral artery. Lacho Morel MD Head Magnetic Resonance Angiography 07/31/16 Signed Impressions: Service Date/Time: Sunday, July 31, 2016 17:46 - CONCLUSION: 1. Occlusion of the right internal carotid artery. 2. Multiple missing vessels distal to the right MCA trifurcation consistent with occlusion. Morales Miller MD Chest X-Ray 07/31/16 Signed Impressions: Service Date/Time: Sunday, July 31, 2016 07:49 - CONCLUSION: 1. ETT in good position. 2. Interval development of diffuse bilateral airspace disease with small right and wwkss-uw-ddhxiqzt left pleural effusions. Differential considerations include pulmonary edema versus diffuse infection versus developing ARDS. Doug Valencia MD Brain MRI 07/31/16 Signed Impressions: Service Date/Time: Sunday, July 31, 2016 17:46 - CONCLUSION: 1. Multiple areas of restricted diffusion involving the right frontal and parietal lobes consistent with areas of acute to subacute infarction. 2. No evidence of hemorrhage, mass effect or midline shift. 3. Old area of encephalomalacia involving the right inferior frontal lobe. Morales Miller MD Objective Remarks GENERAL: AOX3, NAD. SKIN: Warm and dry. HEAD: Normocephalic. EYES: No scleral icterus. No injection or drainage. NECK: Supple, trachea midline. No JVD or lymphadenopathy. CARDIOVASCULAR: Regular rate and rhythm without murmurs, gallops, or rubs. RESPIRATORY: Breath sounds equal bilaterally. No accessory muscle use. GASTROINTESTINAL: Abdomen soft, non-tender, nondistended. MUSCULOSKELETAL: No cyanosis, or edema. Left arm weakness 3 out of 5, left leg weakness 4 out of 5. BACK: Nontender without obvious deformity. No CVA tenderness. Procedures 08/01/2016b Echo The left ventricular systolic function is vwqbodoa-js-kquhenm reduced with an estimated ejection fraction in the range of 35-40%. Mild to moderate concentric left ventricular hypertrophy. Global hypokinesis possibly more pronounced in the septum. The anterior wall is not well seen. Normal left ventricular size. Structurally normal mitral valve. There is trace mitral valve regurgitation. A/P Problem List: (1) Acute respiratory failure ICD Code: J96.00 Status: Acute (2) CVA (cerebral vascular accident) ICD Code: I63.9 Status: Acute (3) Encephalopathy ICD Code: G93.40 Status: Acute (4) Acute kidney injury ICD Code: N17.9 Status: Acute (5) NSTEMI (non-ST elevated myocardial infarction) ICD Code: I21.4 Status: Acute (6) Cardiomyopathy ICD Code: I42.9 Status: Chronic (7) Carotid artery stenosis ICD Code: I65.29 Status: Chronic (8) Alcohol abuse ICD Code: F10.10 Status: Chronic (9) Tobacco abuse ICD Code: Z72.0 Status: Chronic (10) Hypertension ICD Code: I10 Status: Chronic Assessment and Plan Mr. Porter is a 56-year-old Homeless male with a PMH of Anxiety, Depression, HTN, Hyperlipidemia, Alcohol Abuse and Tobacco Abuse who was brought to the ER by EMS secondary to episode of dizziness and hypotension. The patient was admitted to the medical floor and placed on IV fluids normal saline at 125 mL an hour and his renal function was improving with creatinine down to 1.29. [facility] was called on 07/31/2016 as the patient was found hypoxic in respiratory distress and with altered mental status and subsequently patient was transferred to ICU and was intubated. Work up in the ICU indicated right frontal /parietal CVA with right ICA totally occluded. Patient was extubated on 2016. - Acute ischemic stroke right frontal and parietal lobes. - Right ICA occlusion - Discussed with Dr. Quinones (Neurology). - Continue patient on Plavix 75 and Aspirin 81 mg both Qday. - Continue PT/OT. - Difficult placement due to lack of insurance. - Hypotension - Manual blood pressure this morning was systolic around 100. - discontinued Lisinopril, Furosemide, Carvedilol on 08/09/2016. - Continue Amlodipine 5mg Qday with holding parameters. Vasotec and Hydralazine PRN. - Acute kidney injury - Creatinine was 1.8 on 08/08/2016. We'll check BMP on 08/11/2016. - Acute kidney injury is likely due to volume contraction. - Alcohol abuse - Continue CIWA protocol, thiamine Full code. Heparin SQ. Problem Qualifiers (1) Cardiomyopathy: Qualified Code: I42.0 - Dilated cardiomyopathy (2) Hypertension: Qualified Code: I10 - Essential hypertension Sonja Marley DO Aug 10, 2016 8:50 am
[2016-08-10] MEDS: SODIUM CHLORIDE 0.9% FLUSH 10 ML FLUSH IV FLUSH SCH ×2 (09:00→20:59)
[2016-08-10] MEDS: ASPIRIN EC 81 MG TABEC PO SCH (09:00)
[2016-08-10] MEDS: FREE WATER G-TUBE SCH ×2 (09:00→20:55)
[2016-08-10] MEDS: PANTOPRAZOLE SODIUM 40 MG VIAL IV PUSH SCH (09:14)
[2016-08-10] MEDS: HEPARIN SODIUM - SQ 10,000 UNITS/ML VIAL SQ SCH ×2 (09:15→20:59)
[2016-08-10] MEDS: THIAMINE HCL 100 MG TAB PO SCH (09:15)
[2016-08-10] MEDS: DOCUSATE SODIUM 50 MG/SENNA 8.6 MG TAB PO SCH ×2 (09:15→20:59)
[2016-08-10] MEDS: amLODIPine BESYLATE 5 MG TAB PO SCH (09:15)
[2016-08-10] MEDS: CLOPIDOGREL 75 MG TAB PO SCH (09:16)
[2016-08-10] MEDS: ATORVASTATIN 40 MG TAB PO SCH (20:59)
[2016-08-11] VITALS (10 sets, daily range): BP systolic 105–184; BP diastolic 65–89; PULSE 59–86; RESP 12–18; TEMP 96.9–98.2; O2SAT 97–100
[2016-08-11 06:22] LABS: BICARBONATE 26.4 MEQ/L (21.0-32.0); POTASSIUM 4.2 MEQ/L (3.5-5.1)
[2016-08-11] MEDS: CHLORHEXIDINE 0.12% (ORAL KIT) 15 ML CUP MT SCH ×2 (08:00→20:00)
--- NOTE | 2016-08-11 08:14 | HHI.PR ---
Subjective Remarks Follow up for acute stroke, Acute kidney injury. Patient is doing well. No acute concerns. He reports gradual improvement of his left side. He is still not able to grasp anything with his left hand. No fever, chills. Objective Vitals Vital Signs Date Time Temp Pulse Resp B/P Pulse Ox O2 Delivery O2 Flow Rate FiO2 08/11/16 06:00 97.4 63 17 184/89 98 08/11/16 05:39 86 08/11/16 04:04 69 08/11/16 00:06 59 08/11/16 00:00 97.8 67 17 147/78 100 08/10/16 20:11 61 08/10/16 20:00 97.9 58 17 153/73 100 08/10/16 20:00 64 08/10/16 16:00 97.0 64 18 138/70 98 08/10/16 12:00 97.7 60 18 133/61 99 08/10/16 09:54 76 I/O 08/10/16 08/10/16 08/10/16 08/11/16 08/11/16 08/11/16 07:00 15:00 23:00 07:00 15:00 23:00 Intake Total 680 ml 960 ml Output Total 200 ml 250 ml 200 ml 450 ml Balance 480 ml 710 ml -200 ml -450 ml Intake Oral 680 ml 960 ml Output Urine Total 200 ml 250 ml 200 ml 450 ml # Bowel Movements 0 Result Diagram: 08/08/16 0428 08/11/16 0535 Imaging Last Impressions Head CT 08/05/16 0000 Signed Impressions: Service Date/Time: Friday, August 05, 2016 20:28 - CONCLUSION: 1. No acute abnormality is seen. 2. There is encephalomalacia in the right frontal and parietal lobes. 3. Bilateral maxillary sinus disease. Lacho Dey MD Lower Extremity Ultrasound 08/04/16 0000 Signed Impressions: Service Date/Time: Thursday, August 04, 2016 11:25 - CONCLUSION: No evidence of deep venous thrombosis within the left lower extremity. Joon Holguin MD Ankle X-Ray 08/04/16 0000 Signed Impressions: Service Date/Time: Thursday, August 04, 2016 10:48 - CONCLUSION: Negative for fracture. Galen Beal MD FACR Neck Magnetic Resonance Angiography 6/26/17 0000 Signed Impressions: Service Date/Time: Sunday, July 31, 2016 17:46 - CONCLUSION: Total occlusion of the right internal carotid artery. Slightly less than 50%% eccentric stenosis of the proximal left internal carotid artery. High-grade eccentric stenosis of the left subclavian artery proximal to a diminutive left vertebral artery. Lacho Morel MD Head Magnetic Resonance Angiography 07/31/16 Signed Impressions: Service Date/Time: Sunday, July 31, 2016 17:46 - CONCLUSION: 1. Occlusion of the right internal carotid artery. 2. Multiple missing vessels distal to the right MCA trifurcation consistent with occlusion. Morales Miller MD Chest X-Ray 07/31/16 Signed Impressions: Service Date/Time: Sunday, July 31, 2016 07:49 - CONCLUSION: 1. ETT in good position. 2. Interval development of diffuse bilateral airspace disease with small right and nzzcp-xh-krnpfovh left pleural effusions. Differential considerations include pulmonary edema versus diffuse infection versus developing ARDS. Doug Valencia MD Brain MRI 07/31/16 Signed Impressions: Service Date/Time: Sunday, July 31, 2016 17:46 - CONCLUSION: 1. Multiple areas of restricted diffusion involving the right frontal and parietal lobes consistent with areas of acute to subacute infarction. 2. No evidence of hemorrhage, mass effect or midline shift. 3. Old area of encephalomalacia involving the right inferior frontal lobe. Morales Miller MD Objective Remarks GENERAL: AOX3, NAD. SKIN: Warm and dry. HEAD: Normocephalic. EYES: No scleral icterus. No injection or drainage. NECK: Supple, trachea midline. No JVD or lymphadenopathy. CARDIOVASCULAR: Regular rate and rhythm without murmurs, gallops, or rubs. RESPIRATORY: Breath sounds equal bilaterally. No accessory muscle use. GASTROINTESTINAL: Abdomen soft, non-tender, nondistended. MUSCULOSKELETAL: No cyanosis, or edema. Left arm weakness 3 out of 5, left leg weakness 4 out of 5. BACK: Nontender without obvious deformity. No CVA tenderness. Procedures 08/01/2016b Echo The left ventricular systolic function is aiyxxmmr-mw-cuuaeib reduced with an estimated ejection fraction in the range of 35-40%. Mild to moderate concentric left ventricular hypertrophy. Global hypokinesis possibly more pronounced in the septum. The anterior wall is not well seen. Normal left ventricular size. Structurally normal mitral valve. There is trace mitral valve regurgitation. A/P Problem List: (1) Acute respiratory failure ICD Code: J96.00 Status: Acute (2) CVA (cerebral vascular accident) ICD Code: I63.9 Status: Acute (3) Encephalopathy ICD Code: G93.40 Status: Acute (4) Acute kidney injury ICD Code: N17.9 Status: Acute (5) NSTEMI (non-ST elevated myocardial infarction) ICD Code: I21.4 Status: Acute (6) Cardiomyopathy ICD Code: I42.9 Status: Chronic (7) Carotid artery stenosis ICD Code: I65.29 Status: Chronic (8) Alcohol abuse ICD Code: F10.10 Status: Chronic (9) Tobacco abuse ICD Code: Z72.0 Status: Chronic (10) Hypertension ICD Code: I10 Status: Chronic Assessment and Plan Mr. Porter is a 56-year-old Homeless male with a PMH of Anxiety, Depression, HTN, Hyperlipidemia, Alcohol Abuse and Tobacco Abuse who was brought to the ER by EMS secondary to episode of dizziness and hypotension. The patient was admitted to the medical floor and placed on IV fluids normal saline at 125 mL an hour and his renal function was improving with creatinine down to 1.29. [facility] was called on 07/31/2016 as the patient was found hypoxic in respiratory distress and with altered mental status and subsequently patient was transferred to ICU and was intubated. Work up in the ICU indicated right frontal /parietal CVA with right ICA totally occluded. Patient was extubated on 2016. - Acute ischemic stroke right frontal and parietal lobes. - Right ICA occlusion - Discussed with Dr. Quinones (Neurology). - Continue patient on Plavix 75 and Aspirin 81 mg both Qday. - Continue PT/OT. - Difficult placement due to lack of insurance. - Hypertension - discontinued Lisinopril, Furosemide, Carvedilol on 08/09/2016. - Continue Amlodipine 10mg Qday and add hydralazine 25mg Q8hrs. - Acute kidney injury - Creatinine 1.8 --> 1.48. - Acute kidney injury is likely due to volume contraction. - Alcohol abuse - Continue CIWA protocol, thiamine Full code. Heparin SQ. Problem Qualifiers (1) Cardiomyopathy: Qualified Code: I42.0 - Dilated cardiomyopathy (2) Hypertension: Qualified Code: I10 - Essential hypertension Sonja Marley DO Aug 11, 2016 8:14 am
[2016-08-11] MEDS: amLODIPine BESYLATE 5 MG TAB PO SCH (09:01)
[2016-08-11] MEDS: HEPARIN SODIUM - SQ 10,000 UNITS/ML VIAL SQ SCH ×2 (09:02→20:47)
[2016-08-11] MEDS: ASPIRIN EC 81 MG TABEC PO SCH (09:02)
[2016-08-11] MEDS: THIAMINE HCL 100 MG TAB PO SCH (09:02)
[2016-08-11] MEDS: CLOPIDOGREL 75 MG TAB PO SCH (09:02)
[2016-08-11] MEDS: DOCUSATE SODIUM 50 MG/SENNA 8.6 MG TAB PO SCH ×2 (09:02→20:53)
[2016-08-11] MEDS: SODIUM CHLORIDE 0.9% FLUSH 10 ML FLUSH IV FLUSH SCH ×2 (09:03→20:52)
[2016-08-11] MEDS: PANTOPRAZOLE SODIUM 40 MG VIAL IV PUSH SCH (09:03)
[2016-08-11] MEDS: hydrALAZINE HCL 10 MG TAB PO PRN (09:04)
[2016-08-11] MEDS: hydrALAZINE HCL 25 MG TAB PO SCH ×3 (09:50→20:47)
[2016-08-11] MEDS: FREE WATER G-TUBE SCH (20:30)
[2016-08-11] MEDS: ATORVASTATIN 40 MG TAB PO SCH (20:46)
[2016-08-11] MEDS: ACETAMINOPHEN/HYDROcodone 325 MG/7.5 MG TAB PO PRN (20:47)
[2016-08-12] VITALS (11 sets, daily range): BP systolic 103–209; BP diastolic 53–87; PULSE 55–73; RESP 16–22; TEMP 96–97.8; O2SAT 97–100
[2016-08-12] MEDS: hydrALAZINE HCL 10 MG TAB PO PRN (00:34)
[2016-08-12] MEDS: ACETAMINOPHEN/HYDROcodone 325 MG/7.5 MG TAB PO PRN ×4 (00:35→21:35)
[2016-08-12] MEDS: hydrALAZINE HCL 25 MG TAB PO SCH ×3 (06:17→21:24)
[2016-08-12] MEDS: CHLORHEXIDINE 0.12% (ORAL KIT) 15 ML CUP MT SCH ×2 (08:00→20:00)
[2016-08-12] MEDS: FREE WATER G-TUBE SCH ×2 (08:29→21:00)
--- NOTE | 2016-08-12 08:59 | HHI.PR ---
Subjective Remarks Follow up for acute stroke, Acute kidney injury. Patient is currently doing well. Denies any chest pain, shortness of breath, fever or chills. Left-sided still weak especially left upper extremity. Objective Vitals Vital Signs Date Time Temp Pulse Resp B/P Pulse Ox O2 Delivery O2 Flow Rate FiO2 08/12/16 08:46 96.2 62 20 103/53 99 08/12/16 08:22 56 08/12/16 07:18 18 08/12/16 06:16 55 142/61 08/12/16 04:02 61 08/12/16 04:00 96.0 63 16 99 08/12/16 03:48 209/87 08/12/16 00:11 70 08/12/16 00:00 97.4 71 16 188/72 99 08/11/16 20:20 69 08/11/16 20:00 96.9 63 17 179/75 100 08/11/16 16:00 65 08/11/16 16:00 98.2 73 16 153/75 98 08/11/16 12:00 98.2 67 18 151/71 97 08/11/16 12:00 70 I/O 08/11/16 08/11/16 08/11/16 08/12/16 08/12/16 08/12/16 06:59 14:59 22:59 06:59 14:59 22:59 Intake Total 720 ml 480 ml Output Total 450 ml 300 ml 250 ml 300 ml Balance -450 ml 420 ml -250 ml 180 ml Intake Oral 720 ml 480 ml Output Urine Total 450 ml 300 ml 250 ml 300 ml # Bowel Movements 1 Result Diagram: 08/08/16 0428 08/11/16 0535 Imaging Last Impressions Head CT 08/05/16 0000 Signed Impressions: Service Date/Time: Friday, August 05, 2016 20:28 - CONCLUSION: 1. No acute abnormality is seen. 2. There is encephalomalacia in the right frontal and parietal lobes. 3. Bilateral maxillary sinus disease. Lacho Dey MD Lower Extremity Ultrasound 08/04/16 0000 Signed Impressions: Service Date/Time: Thursday, August 04, 2016 11:25 - CONCLUSION: No evidence of deep venous thrombosis within the left lower extremity. Joon Holguin MD Ankle X-Ray 08/04/16 0000 Signed Impressions: Service Date/Time: Thursday, August 04, 2016 10:48 - CONCLUSION: Negative for fracture. Galen Beal MD FACR Neck Magnetic Resonance Angiography 07/31/16 Signed Impressions: Service Date/Time: Sunday, July 31, 2016 17:46 - CONCLUSION: Total occlusion of the right internal carotid artery. Slightly less than 50%% eccentric stenosis of the proximal left internal carotid artery. High-grade eccentric stenosis of the left subclavian artery proximal to a diminutive left vertebral artery. Lacho Morel MD Head Magnetic Resonance Angiography 07/31/16 Signed Impressions: Service Date/Time: Sunday, July 31, 2016 17:46 - CONCLUSION: 1. Occlusion of the right internal carotid artery. 2. Multiple missing vessels distal to the right MCA trifurcation consistent with occlusion. Morales Miller MD Chest X-Ray 07/31/16 Signed Impressions: Service Date/Time: Sunday, July 31, 2016 07:49 - CONCLUSION: 1. ETT in good position. 2. Interval development of diffuse bilateral airspace disease with small right and ndwwq-gx-ktixrrsr left pleural effusions. Differential considerations include pulmonary edema versus diffuse infection versus developing ARDS. Doug Valencia MD Brain MRI 07/31/16 Signed Impressions: Service Date/Time: Sunday, July 31, 2016 17:46 - CONCLUSION: 1. Multiple areas of restricted diffusion involving the right frontal and parietal lobes consistent with areas of acute to subacute infarction. 2. No evidence of hemorrhage, mass effect or midline shift. 3. Old area of encephalomalacia involving the right inferior frontal lobe. Morales Miller MD Objective Remarks GENERAL: AOX3, NAD. SKIN: Warm and dry. HEAD: Normocephalic. EYES: No scleral icterus. No injection or drainage. NECK: Supple, trachea midline. No JVD or lymphadenopathy. CARDIOVASCULAR: Regular rate and rhythm without murmurs, gallops, or rubs. RESPIRATORY: Breath sounds equal bilaterally. No accessory muscle use. GASTROINTESTINAL: Abdomen soft, non-tender, nondistended. MUSCULOSKELETAL: No cyanosis, or edema. Left arm weakness 3 out of 5, left leg weakness 4 out of 5. BACK: Nontender without obvious deformity. No CVA tenderness. Procedures 08/01/2016b Echo The left ventricular systolic function is dkizqvnj-at-zdrnylc reduced with an estimated ejection fraction in the range of 35-40%. Mild to moderate concentric left ventricular hypertrophy. Global hypokinesis possibly more pronounced in the septum. The anterior wall is not well seen. Normal left ventricular size. Structurally normal mitral valve. There is trace mitral valve regurgitation. A/P Problem List: (1) Acute respiratory failure ICD Code: J96.00 Status: Acute (2) CVA (cerebral vascular accident) ICD Code: I63.9 Status: Acute (3) Encephalopathy ICD Code: G93.40 Status: Acute (4) Acute kidney injury ICD Code: N17.9 Status: Acute (5) NSTEMI (non-ST elevated myocardial infarction) ICD Code: I21.4 Status: Acute (6) Cardiomyopathy ICD Code: I42.9 Status: Chronic (7) Carotid artery stenosis ICD Code: I65.29 Status: Chronic (8) Alcohol abuse ICD Code: F10.10 Status: Chronic (9) Tobacco abuse ICD Code: Z72.0 Status: Chronic (10) Hypertension ICD Code: I10 Status: Chronic Assessment and Plan Mr. Porter is a 56-year-old Homeless male with a PMH of Anxiety, Depression, HTN, Hyperlipidemia, Alcohol Abuse and Tobacco Abuse who was brought to the ER by EMS secondary to episode of dizziness and hypotension. The patient was admitted to the medical floor and placed on IV fluids normal saline at 125 mL an hour and his renal function was improving with creatinine down to 1.29. [facility] the patient was found hypoxic in respiratory distress and with altered mental status and subsequently patient was transferred to ICU and was intubated. Work up in the ICU indicated right frontal /parietal CVA with right ICA totally occluded. Patient was extubated on 2016. - Acute ischemic stroke right frontal and parietal lobes. - Right ICA occlusion - Continue patient on Plavix 75 and Aspirin 81 mg both Qday. - Continue PT/OT. - Difficult placement due to lack of insurance. - Hypertension - Currently blood pressure is somewhat on the lower side. Systolic low 100s. - discontinued Lisinopril, Furosemide, Carvedilol on 08/09/2016. - Continue Amlodipine 10mg Qday and hydralazine 25mg Q8hrs. - Acute kidney injury - Creatinine 1.8 --> 1.48. - Acute kidney injury is likely due to volume contraction. - Will get BMP on 08/14/2016. - Alcohol abuse - Continue CIWA protocol, thiamine Full code. Heparin SQ. Problem Qualifiers (1) Cardiomyopathy: Qualified Code: I42.0 - Dilated cardiomyopathy (2) Hypertension: Qualified Code: I10 - Essential hypertension Sonja Marley DO Aug 12, 2016 8:59 am
[2016-08-12] MEDS: HEPARIN SODIUM - SQ 10,000 UNITS/ML VIAL SQ SCH ×2 (09:26→21:23)
[2016-08-12] MEDS: CLOPIDOGREL 75 MG TAB PO SCH (09:26)
[2016-08-12] MEDS: DOCUSATE SODIUM 50 MG/SENNA 8.6 MG TAB PO SCH ×2 (09:26→21:00)
[2016-08-12] MEDS: ASPIRIN EC 81 MG TABEC PO SCH (09:26)
[2016-08-12] MEDS: amLODIPine BESYLATE 5 MG TAB PO SCH (09:26)
[2016-08-12] MEDS: THIAMINE HCL 100 MG TAB PO SCH (09:26)
[2016-08-12] MEDS: PANTOPRAZOLE SODIUM 40 MG VIAL IV PUSH SCH (09:26)
[2016-08-12] MEDS: SODIUM CHLORIDE 0.9% FLUSH 10 ML FLUSH IV FLUSH SCH ×2 (09:27→21:24)
[2016-08-12] MEDS: ATORVASTATIN 40 MG TAB PO SCH (21:23)
[2016-08-13] VITALS (11 sets, daily range): BP systolic 117–151; BP diastolic 59–74; PULSE 65–87; RESP 16–22; TEMP 97.3–99; O2SAT 98–100
[2016-08-13] MEDS: hydrALAZINE HCL 25 MG TAB PO SCH ×3 (06:29→21:44)
[2016-08-13] MEDS: CHLORHEXIDINE 0.12% (ORAL KIT) 15 ML CUP MT SCH ×2 (08:00→20:00)
[2016-08-13] MEDS: FREE WATER G-TUBE SCH ×2 (09:00→21:00)
[2016-08-13] MEDS: DOCUSATE SODIUM 50 MG/SENNA 8.6 MG TAB PO SCH ×2 (09:00→21:00)
--- NOTE | 2016-08-13 09:04 | HHI.PR ---
Subjective Remarks Follow up for acute stroke, Acute kidney injury. Patient is doing well. No acute concerns. No fever, chills. He is still not getting up from bed. PT is working with him this morning. During PT, patient got dizzy and was placed back in bed. Objective Vitals Vital Signs Date Time Temp Pulse Resp B/P Pulse Ox O2 Delivery O2 Flow Rate FiO2 08/13/16 08:55 97.7 78 22 128/70 100 08/13/16 04:00 97.3 71 16 138/63 98 08/13/16 00:05 65 08/13/16 00:00 97.3 74 17 117/59 98 08/12/16 20:00 97.8 72 18 166/79 99 08/12/16 20:00 73 08/12/16 16:23 97.5 62 22 125/58 100 08/12/16 12:18 97.0 73 20 115/53 97 I/O 08/12/16 08/12/16 08/12/16 08/13/16 08/13/16 08/13/16 07:00 15:00 23:00 07:00 15:00 23:00 Intake Total 480 ml 720 ml 480 ml 240 ml Output Total 300 ml 350 ml 100 ml 300 ml Balance 180 ml 370 ml 380 ml -60 ml Intake Oral 480 ml 720 ml 480 ml 240 ml IV Total 0 ml Output Urine Total 300 ml 350 ml 100 ml 300 ml # Bowel Movements 2 Result Diagram: 08/11/16 0535 Imaging Last Impressions Head CT 08/05/16 0000 Signed Impressions: Service Date/Time: Friday, August 05, 2016 20:28 - CONCLUSION: 1. No acute abnormality is seen. 2. There is encephalomalacia in the right frontal and parietal lobes. 3. Bilateral maxillary sinus disease. Lacho Dey MD Lower Extremity Ultrasound 08/04/16 0000 Signed Impressions: Service Date/Time: Thursday, August 04, 2016 11:25 - CONCLUSION: No evidence of deep venous thrombosis within the left lower extremity. Joon Holguin MD Ankle X-Ray 08/04/16 0000 Signed Impressions: Service Date/Time: Thursday, August 04, 2016 10:48 - CONCLUSION: Negative for fracture. Galen Beal MD FACR Neck Magnetic Resonance Angiography 07/31/16 0000 Signed Impressions: Service Date/Time: Sunday, July 31, 2016 17:46 - CONCLUSION: Total occlusion of the right internal carotid artery. Slightly less than 50%% eccentric stenosis of the proximal left internal carotid artery. High-grade eccentric stenosis of the left subclavian artery proximal to a diminutive left vertebral artery. Lacho Morel MD Head Magnetic Resonance Angiography 07/31/16 Signed Impressions: Service Date/Time: Sunday, July 31, 2016 17:46 - CONCLUSION: 1. Occlusion of the right internal carotid artery. 2. Multiple missing vessels distal to the right MCA trifurcation consistent with occlusion. Morales Miller MD Chest X-Ray 07/31/16 Signed Impressions: Service Date/Time: Sunday, July 31, 2016 07:49 - CONCLUSION: 1. ETT in good position. 2. Interval development of diffuse bilateral airspace disease with small right and zdock-df-ywecatny left pleural effusions. Differential considerations include pulmonary edema versus diffuse infection versus developing ARDS. Doug Valencia MD Brain MRI 07/31/16 Signed Impressions: Service Date/Time: Sunday, July 31, 2016 17:46 - CONCLUSION: 1. Multiple areas of restricted diffusion involving the right frontal and parietal lobes consistent with areas of acute to subacute infarction. 2. No evidence of hemorrhage, mass effect or midline shift. 3. Old area of encephalomalacia involving the right inferior frontal lobe. Morales Miller MD Objective Remarks GENERAL: AOX3, NAD. SKIN: Warm and dry. HEAD: Normocephalic. EYES: No scleral icterus. No injection or drainage. NECK: Supple, trachea midline. No JVD or lymphadenopathy. CARDIOVASCULAR: Regular rate and rhythm without murmurs, gallops, or rubs. RESPIRATORY: Breath sounds equal bilaterally. No accessory muscle use. GASTROINTESTINAL: Abdomen soft, non-tender, nondistended. MUSCULOSKELETAL: No cyanosis, or edema. Left arm weakness 3 out of 5, left leg weakness 4 out of 5. BACK: Nontender without obvious deformity. No CVA tenderness. Procedures 08/01/2016b Echo The left ventricular systolic function is txprwdrb-xk-dbbeacx reduced with an estimated ejection fraction in the range of 35-40%. Mild to moderate concentric left ventricular hypertrophy. Global hypokinesis possibly more pronounced in the septum. The anterior wall is not well seen. Normal left ventricular size. Structurally normal mitral valve. There is trace mitral valve regurgitation. A/P Problem List: (1) Acute respiratory failure ICD Code: J96.00 Status: Acute (2) CVA (cerebral vascular accident) ICD Code: I63.9 Status: Acute (3) Encephalopathy ICD Code: G93.40 Status: Acute (4) Acute kidney injury ICD Code: N17.9 Status: Acute (5) NSTEMI (non-ST elevated myocardial infarction) ICD Code: I21.4 Status: Acute (6) Cardiomyopathy ICD Code: I42.9 Status: Chronic (7) Carotid artery stenosis ICD Code: I65.29 Status: Chronic (8) Alcohol abuse ICD Code: F10.10 Status: Chronic (9) Tobacco abuse ICD Code: Z72.0 Status: Chronic (10) Hypertension ICD Code: I10 Status: Chronic Assessment and Plan Mr. Porter is a 56-year-old Homeless male with a PMH of Anxiety, Depression, HTN, Hyperlipidemia, Alcohol Abuse and Tobacco Abuse who was brought to the ER by EMS secondary to episode of dizziness and hypotension. The patient was admitted to the medical floor and placed on IV fluids normal saline at 125 mL an hour and his renal function was improving with creatinine down to [facility]29[facility] the patient was found hypoxic in respiratory distress and with altered mental status and subsequently patient was transferred to ICU and was intubated. Work up in the ICU indicated right frontal /parietal CVA with right ICA totally occluded. Patient was extubated on 2016. - Acute ischemic stroke right frontal and parietal lobes. - Right ICA occlusion - Continue patient on Plavix 75 and Aspirin 81 mg both Qday. - Continue PT/OT. - Difficult placement due to lack of insurance. - Hypertension - Currently blood pressure is somewhat on the lower side. Systolic low 100s. - discontinued Lisinopril, Furosemide, Carvedilol on 08/09/2016. - Continue Amlodipine 10mg Qday and hydralazine 25mg Q8hrs. - Patient became somewhat hypotensive. If his BP does not improve with rest in bed, we will give some fluid. - Acute kidney injury - Creatinine 1.8 --> 1.48. - Acute kidney injury is likely due to volume contraction. - Will get BMP on 08/14/2016. - Alcohol abuse - Continue CIWA protocol, thiamine Full code. Heparin SQ. Problem Qualifiers (1) Cardiomyopathy: Qualified Code: I42.0 - Dilated cardiomyopathy (2) Hypertension: Qualified Code: I10 - Essential hypertension Sonja Marley DO Aug 13, 2016 9:04 am
[2016-08-13] MEDS: ACETAMINOPHEN/HYDROcodone 325 MG/7.5 MG TAB PO PRN ×2 (10:17→21:45)
[2016-08-13] MEDS: THIAMINE HCL 100 MG TAB PO SCH (10:18)
[2016-08-13] MEDS: CLOPIDOGREL 75 MG TAB PO SCH (10:18)
[2016-08-13] MEDS: ASPIRIN EC 81 MG TABEC PO SCH (10:18)
[2016-08-13] MEDS: amLODIPine BESYLATE 5 MG TAB PO SCH (10:18)
[2016-08-13] MEDS: HEPARIN SODIUM - SQ 10,000 UNITS/ML VIAL SQ SCH ×2 (10:19→21:44)
[2016-08-13] MEDS: PANTOPRAZOLE SODIUM 40 MG VIAL IV PUSH SCH (10:19)
[2016-08-13] MEDS: SODIUM CHLORIDE 0.9% FLUSH 10 ML FLUSH IV FLUSH SCH ×2 (10:25→21:45)
[2016-08-13] MEDS: ATORVASTATIN 40 MG TAB PO SCH (21:44)
[2016-08-14] VITALS (9 sets, daily range): BP systolic 101–212; BP diastolic 55–93; PULSE 71–90; RESP 16–22; TEMP 97.2–97.9; O2SAT 97–100
[2016-08-14] MEDS: hydrALAZINE HCL 10 MG TAB PO PRN (03:41)
[2016-08-14] MEDS: hydrALAZINE HCL 25 MG TAB PO SCH ×3 (06:00→21:00)
[2016-08-14] MEDS: CHLORHEXIDINE 0.12% (ORAL KIT) 15 ML CUP MT SCH (08:00)
[2016-08-14] MEDS: amLODIPine BESYLATE 5 MG TAB PO SCH (08:38)
[2016-08-14] MEDS: ASPIRIN EC 81 MG TABEC PO SCH (08:38)
[2016-08-14] MEDS: THIAMINE HCL 100 MG TAB PO SCH (08:38)
[2016-08-14] MEDS: CLOPIDOGREL 75 MG TAB PO SCH (08:38)
[2016-08-14] MEDS: DOCUSATE SODIUM 50 MG/SENNA 8.6 MG TAB PO SCH ×2 (08:38→21:00)
[2016-08-14] MEDS: HEPARIN SODIUM - SQ 10,000 UNITS/ML VIAL SQ SCH ×2 (08:38→21:00)
[2016-08-14] MEDS: SODIUM CHLORIDE 0.9% FLUSH 10 ML FLUSH IV FLUSH SCH (08:39)
[2016-08-14] MEDS: PANTOPRAZOLE SODIUM 40 MG VIAL IV PUSH SCH (08:39)
[2016-08-14] MEDS: FREE WATER G-TUBE SCH (08:39)
--- NOTE | 2016-08-14 09:06 | HHI.PR ---
Subjective Remarks Follow up for acute stroke, Acute kidney injury. Patient is currently doing well. No chest pain, shortness of breath, fever, chills. His BP went up last night. However, after hydralazine, his BP dropped too much. Currently normotensive and asymptomatic. Objective Vitals Vital Signs Date Time Temp Pulse Resp B/P Pulse Ox O2 Delivery O2 Flow Rate FiO2 08/14/16 06:19 101/69 08/14/16 05:20 87 107/56 08/14/16 04:00 97.5 90 16 212/93 99 08/14/16 00:01 82 08/14/16 00:00 97.7 86 16 159/76 98 08/13/16 20:04 81 08/13/16 20:00 99.0 87 16 149/74 99 08/13/16 16:32 97.4 80 20 151/72 98 08/13/16 16:02 77 08/13/16 12:42 98.3 73 21 147/71 99 08/13/16 12:24 69 I/O 08/13/16 08/13/16 08/13/16 08/14/16 08/14/16 08/14/16 07:00 15:00 23:00 07:00 15:00 23:00 Intake Total 240 ml 240 ml 480 ml 240 ml Output Total 300 ml 475 ml 300 ml 575 ml Balance -60 ml -235 ml 180 ml -335 ml Intake Oral 240 ml 240 ml 480 ml 240 ml Output Urine Total 300 ml 475 ml 300 ml 575 ml # Bowel Movements 1 Result Diagram: 08/11/16 0535 Imaging Last Impressions Head CT 08/05/16 0000 Signed Impressions: Service Date/Time: Friday, August 05, 2016 20:28 - CONCLUSION: 1. No acute abnormality is seen. 2. There is encephalomalacia in the right frontal and parietal lobes. 3. Bilateral maxillary sinus disease. Lacho Dey MD Lower Extremity Ultrasound 08/04/16 0000 Signed Impressions: Service Date/Time: Thursday, August 04, 2016 11:25 - CONCLUSION: No evidence of deep venous thrombosis within the left lower extremity. Joon Holguin MD Ankle X-Ray 08/04/16 0000 Signed Impressions: Service Date/Time: Thursday, August 04, 2016 10:48 - CONCLUSION: Negative for fracture. Galen Beal MD FACR Neck Magnetic Resonance Angiography 07/31/16 Signed Impressions: Service Date/Time: Sunday, July 31, 2016 17:46 - CONCLUSION: Total occlusion of the right internal carotid artery. Slightly less than 50%% eccentric stenosis of the proximal left internal carotid artery. High-grade eccentric stenosis of the left subclavian artery proximal to a diminutive left vertebral artery. Lacho Morel MD Head Magnetic Resonance Angiography 07/31/16 Signed Impressions: Service Date/Time: Sunday, July 31, 2016 17:46 - CONCLUSION: 1. Occlusion of the right internal carotid artery. 2. Multiple missing vessels distal to the right MCA trifurcation consistent with occlusion. Morales Miller MD Chest X-Ray 07/31/16 Signed Impressions: Service Date/Time: Sunday, July 31, 2016 07:49 - CONCLUSION: 1. ETT in good position. 2. Interval development of diffuse bilateral airspace disease with small right and htxtv-by-capgcaxc left pleural effusions. Differential considerations include pulmonary edema versus diffuse infection versus developing ARDS. Doug Valencia MD Brain MRI 07/31/16 Signed Impressions: Service Date/Time: Sunday, July 31, 2016 17:46 - CONCLUSION: 1. Multiple areas of restricted diffusion involving the right frontal and parietal lobes consistent with areas of acute to subacute infarction. 2. No evidence of hemorrhage, mass effect or midline shift. 3. Old area of encephalomalacia involving the right inferior frontal lobe. Moralse Miller MD Objective Remarks GENERAL: AOX3, NAD. SKIN: Warm and dry. HEAD: Normocephalic. EYES: No scleral icterus. No injection or drainage. NECK: Supple, trachea midline. No JVD or lymphadenopathy. CARDIOVASCULAR: Regular rate and rhythm without murmurs, gallops, or rubs. RESPIRATORY: Breath sounds equal bilaterally. No accessory muscle use. GASTROINTESTINAL: Abdomen soft, non-tender, nondistended. MUSCULOSKELETAL: No cyanosis, or edema. Left arm weakness 3 out of 5, left leg weakness 4 out of 5. BACK: Nontender without obvious deformity. No CVA tenderness. Procedures 08/01/2016b Echo The left ventricular systolic function is fzbqxwqr-zq-akfiror reduced with an estimated ejection fraction in the range of 35-40%. Mild to moderate concentric left ventricular hypertrophy. Global hypokinesis possibly more pronounced in the septum. The anterior wall is not well seen. Normal left ventricular size. Structurally normal mitral valve. There is trace mitral valve regurgitation. A/P Problem List: (1) Acute respiratory failure ICD Code: J96.00 Status: Acute (2) CVA (cerebral vascular accident) ICD Code: I63.9 Status: Acute (3) Encephalopathy ICD Code: G93.40 Status: Acute (4) Acute kidney injury ICD Code: N17.9 Status: Acute (5) NSTEMI (non-ST elevated myocardial infarction) ICD Code: I21.4 Status: Acute (6) Cardiomyopathy ICD Code: I42.9 Status: Chronic (7) Carotid artery stenosis ICD Code: I65.29 Status: Chronic (8) Alcohol abuse ICD Code: F10.10 Status: Chronic (9) Tobacco abuse ICD Code: Z72.0 Status: Chronic (10) Hypertension ICD Code: I10 Status: Chronic Assessment and Plan Mr. Porter is a 56-year-old Homeless male with a PMH of Anxiety, Depression, HTN, Hyperlipidemia, Alcohol Abuse and Tobacco Abuse who was brought to the ER by EMS secondary to episode of dizziness and hypotension. The patient was admitted to the medical floor and placed on IV fluids normal saline at 125 mL an hour and his renal function was improving with creatinine down to 1.29. [facility] as the patient was found hypoxic in respiratory distress and with altered mental status and subsequently patient was transferred to ICU and was intubated. Work up in the ICU indicated right frontal /parietal CVA with right ICA totally occluded. Patient was extubated on 2016. - Acute ischemic stroke right frontal and parietal lobes. - Right ICA occlusion - Continue patient on Plavix 75 and Aspirin 81 mg both Qday. - Continue PT/OT. - Difficult placement due to lack of insurance. - Hypertension - Currently normotensive. Systolic BP 120s. - Continue Amlodipine 10mg Qday and hydralazine 25mg Q8hrs with holding parameters. - Acute kidney injury - Creatinine 1.8 --> 1.48. - Acute kidney injury is likely due to volume contraction. - BMP pending this morning. - Alcohol abuse - Continue CIWA protocol, thiamine Full code. Heparin SQ. Problem Qualifiers (1) Cardiomyopathy: Qualified Code: I42.0 - Dilated cardiomyopathy (2) Hypertension: Qualified Code: I10 - Essential hypertension Sonja Marley DO Aug 14, 2016 9:06 am Sonja Marley DO Aug 14, 2016 9:06 am
[2016-08-14 10:51] LABS: BICARBONATE 25.5 MEQ/L (21.0-32.0); POTASSIUM 4.2 MEQ/L (3.5-5.1)
[2016-08-14] MEDS: ATORVASTATIN 40 MG TAB PO SCH (21:00)
[2016-08-15 05:22] VITALS: BP 197/98; PULSE 86
[2016-08-15] MEDS: hydrALAZINE HCL 25 MG TAB PO SCH ×3 (05:22→21:42)
[2016-08-15 08:00] VITALS: BP 141/61; PULSE 87; RESP 18; TEMP 98.5; O2SAT 100
[2016-08-15] MEDS: THIAMINE HCL 100 MG TAB PO SCH (09:26)
[2016-08-15] MEDS: PANTOPRAZOLE SOD 40 MG DELAYED RELEASE TAB PO SCH (09:26)
[2016-08-15] MEDS: CLOPIDOGREL 75 MG TAB PO SCH (09:26)
[2016-08-15] MEDS: amLODIPine BESYLATE 5 MG TAB PO SCH (09:26)
[2016-08-15] MEDS: DOCUSATE SODIUM 50 MG/SENNA 8.6 MG TAB PO SCH ×2 (09:26→21:00)
[2016-08-15] MEDS: ASPIRIN EC 81 MG TABEC PO SCH (09:26)
[2016-08-15] MEDS: HEPARIN SODIUM - SQ 10,000 UNITS/ML VIAL SQ SCH ×2 (09:27→21:42)
[2016-08-15 12:00] VITALS: BP 135/82; PULSE 96; RESP 18; TEMP 97.2; O2SAT 99
--- NOTE | 2016-08-15 13:39 | HHI.PR ---
Subjective Remarks Follow up for CVA, SHANTELLE, HTN. Patient initially presented to the ED on 07/29 for dehydration with renal failure. [facility] was called on 07/31 as the patient was in respiratory distress. He was found to have a CVA with total occlusion of his right ICA. Patient was extubated. He is now stable. He is transferred to [place] as he will likely need placement at SNF. Patient denies any headache. Denies any shortness of breath. Objective Vitals Vital Signs Date Time Temp Pulse Resp B/P Pulse Ox O2 Delivery O2 Flow Rate FiO2 08/15/16 08:00 98.5 87 18 141/61 100 08/15/16 05:22 86 197/98 08/14/16 20:00 97.9 79 21 154/60 99 I/O 08/14/16 08/14/16 08/14/16 08/15/16 08/15/16 08/15/16 07:00 15:00 23:00 07:00 15:00 23:00 Intake Total 240 ml 360 ml 240 ml Output Total 575 ml 250 ml 500 ml Balance -335 ml 110 ml -260 ml Intake Oral 240 ml 360 ml 240 ml Output Urine Total 575 ml 250 ml 500 ml # Voids 0 Result Diagram: 08/14/16 0856 Objective Remarks GENERAL: Cachectic-appearing male no apparent distress. CARDIOVASCULAR: Regular rate and rhythm. 3/6 murmur noted. RESPIRATORY: No accessory muscle use. Clear to auscultation. Breath sounds equal bilaterally. GASTROINTESTINAL: Abdomen soft, non-tender, nondistended. Abdominal bruits noted bilaterally. MUSCULOSKELETAL: Thin legs. NEUROLOGICAL: Awake and alert. Normal speech. PSYCHIATRIC: Appropriate mood and affect; insight and judgment normal. Procedures 08/01/2016 Echo The left ventricular systolic function is ezbgmhah-so-moidkosq reduced with an estimated ejection fraction in the range of 35-40%. Mild to moderate concentric left ventricular hypertrophy. Global hypokinesis possibly more pronounced in the septum. The anterior wall is not well seen. Normal left ventricular size. Structurally normal mitral valve. There is trace mitral valve regurgitation. Intubation, extubation Urinary Catheter: No Vascular Central Line Catheter: No A/P Problem List: (1) Acute respiratory failure ICD Code: J96.00 Status: Acute (2) CVA (cerebral vascular accident) ICD Code: I63.9 Status: Acute (3) Encephalopathy ICD Code: G93.40 Status: Acute (4) Acute kidney injury ICD Code: N17.9 Status: Acute (5) NSTEMI (non-ST elevated myocardial infarction) ICD Code: I21.4 Status: Acute (6) Cardiomyopathy ICD Code: I42.9 Status: Chronic (7) Carotid artery stenosis ICD Code: I65.29 Status: Chronic (8) Alcohol abuse ICD Code: F10.10 Status: Chronic (9) Tobacco abuse ICD Code: Z72.0 Status: Chronic (10) Hypertension ICD Code: I10 Status: Chronic Assessment and Plan Mr. Porter is a 56-year-old homeless male with a PMH of Anxiety, Depression, HTN, Hyperlipidemia, Alcohol Abuse and Tobacco Abuse with: Acute ischemic stroke right frontal and parietal lobes/Right ICA occlusion -Continue Plavix 75 and Aspirin 81 mg both daily. -Continue PT/OT. Severe protein calorie malnutrition: BMI 14.9. Muscle wasting. Low albumin but prealbumin wnl at 27 on 08/08/16. -Dietitian was consulted recommending regular diet with no salt packets, Ensure Enlive tid, and send milk and yogurt w/meals for added protein and nutrition Hypertension: Improved today -Continue Amlodipine 10mg daily and hydralazine 25mg q8hrs with hold parameters. -Monitor and adjust medication as needed Cardiomyopathy: EF 35-40%. Patient also had elevated troponin but could be attributed due to renal insufficiency. -Cardiology consultation appreciated. Patient was placed on Lisinopril, Lasix, and carvedilol but these medications were discontinued on 08/09 due to hypotension. Acute kidney injury: Creatinine improved at 1.3, but BUN still elevated at 33, but improved. -S/p IVF. Encourage po hydration. -Monitor BMP Alcohol abuse -S/p CIWA protocol -Continue Thiamine DVT prophylaxis: Heparin SQ. Discharge Planning PT at rehabilitation versus home health depending on patient progress per PT Problem Qualifiers (1) Cardiomyopathy: Qualified Code: I42.0 - Dilated cardiomyopathy (2) Hypertension: Qualified Code: I10 - Essential hypertension Cayla Maya Aug 15, 2016 13:39
[2016-08-15 16:00] VITALS: BP 150/65; PULSE 89; RESP 18; TEMP 97.8; O2SAT 100
[2016-08-15 20:00] VITALS: BP 128/70; PULSE 96; RESP 18; TEMP 97.3; O2SAT 100
[2016-08-15] MEDS: ATORVASTATIN 40 MG TAB PO SCH (21:42)
[2016-08-16] MEDS: hydrALAZINE HCL 25 MG TAB PO SCH ×3 (05:27→22:00)
[2016-08-16 08:00] VITALS: BP 108/83; PULSE 95; RESP 18; TEMP 98.3; O2SAT 96
[2016-08-16] MEDS: PANTOPRAZOLE SOD 40 MG DELAYED RELEASE TAB PO SCH (10:57)
[2016-08-16] MEDS: THIAMINE HCL 100 MG TAB PO SCH (10:57)
[2016-08-16] MEDS: HEPARIN SODIUM - SQ 10,000 UNITS/ML VIAL SQ SCH ×2 (10:58→22:07)
[2016-08-16] MEDS: ASPIRIN EC 81 MG TABEC PO SCH (10:58)
[2016-08-16] MEDS: CLOPIDOGREL 75 MG TAB PO SCH (10:58)
[2016-08-16] MEDS: amLODIPine BESYLATE 5 MG TAB PO SCH (10:58)
[2016-08-16] MEDS: DOCUSATE SODIUM 50 MG/SENNA 8.6 MG TAB PO SCH ×2 (10:58→21:00)
--- NOTE | 2016-08-16 11:32 | HHI.PR ---
Subjective Remarks Follow up for CVA, SHANTELLE, HTN. Patient states he has soiled himself and asked for help at 5 AM still has not gotten assistance. Aside from this the patient has no other complaints. Nurse informs me the patient has hemorrhoids and requests medication for it. Objective Vitals Vital Signs Date Time Temp Pulse Resp B/P Pulse Ox O2 Delivery O2 Flow Rate FiO2 08/15/16 20:00 97.3 96 18 128/70 100 08/15/16 16:00 97.8 89 18 150/65 100 08/15/16 12:00 97.2 96 18 135/82 99 I/O 08/15/16 08/15/16 08/15/16 08/16/16 08/16/16 08/16/16 07:00 15:00 23:00 07:00 15:00 23:00 Intake Total 240 ml 650 ml 460 ml 480 ml Output Total 500 ml 825 ml 200 ml 500 ml Balance -260 ml -175 ml 260 ml -20 ml Intake Oral 240 ml 650 ml 460 ml 480 ml Output Urine Total 500 ml 825 ml 200 ml 500 ml # Bowel Movements 4 0 Result Diagram: 08/14/16 0856 Objective Remarks GENERAL: Cachectic-appearing male no apparent distress. CARDIOVASCULAR: Regular rate and rhythm. RESPIRATORY: No accessory muscle use. Clear to auscultation. Breath sounds equal bilaterally. NEUROLOGICAL: Awake and alert. Normal speech. 5/5 sewer strength right hand. Left hand flaccid. 5/5 quadriceps strength bilaterally. PSYCHIATRIC: Appropriate mood and affect; insight and judgment normal. Procedures 08/01/2016 Echo The left ventricular systolic function is kcwfyewn-fb-cofvzbhl reduced with an estimated ejection fraction in the range of 35-40%. Mild to moderate concentric left ventricular hypertrophy. Global hypokinesis possibly more pronounced in the septum. The anterior wall is not well seen. Normal left ventricular size. Structurally normal mitral valve. There is trace mitral valve regurgitation. Intubation, extubation Urinary Catheter: No Vascular Central Line Catheter: No A/P Problem List: (1) Acute respiratory failure ICD Code: J96.00 Status: Acute (2) CVA (cerebral vascular accident) ICD Code: I63.9 Status: Acute (3) Encephalopathy ICD Code: G93.40 Status: Acute (4) Acute kidney injury ICD Code: N17.9 Status: Acute (5) NSTEMI (non-ST elevated myocardial infarction) ICD Code: I21.4 Status: Acute (6) Cardiomyopathy ICD Code: I42.9 Status: Chronic (7) Carotid artery stenosis ICD Code: I65.29 Status: Chronic (8) Alcohol abuse ICD Code: F10.10 Status: Chronic (9) Tobacco abuse ICD Code: Z72.0 Status: Chronic (10) Hypertension ICD Code: I10 Status: Chronic Assessment and Plan Mr. Porter is a 56-year-old homeless male with a PMH of Anxiety, Depression, HTN, Hyperlipidemia, Alcohol Abuse and Tobacco Abuse with: Acute ischemic stroke right frontal and parietal lobes/Right ICA occlusion -Continue Plavix 75 and Aspirin 81 mg both daily. -Continue PT/OT. Severe protein calorie malnutrition: BMI 14.9. Muscle wasting. Low albumin but prealbumin wnl at 27 on 08/08/16. -Dietitian was consulted recommending regular diet with no salt packets, Ensure Enlive tid, and send milk and yogurt w/meals for added protein and nutrition Hypertension: Improved -Continue Amlodipine 10mg daily and hydralazine 25mg q8hrs with hold parameters. -Monitor and adjust medication as needed Cardiomyopathy: EF 35-40%. Patient also had elevated troponin but could be attributed due to renal insufficiency. -Cardiology consultation appreciated. Patient was placed on Lisinopril, Lasix, and Carvedilol but these medications were discontinued on 08/09 due to hypotension. Acute kidney injury: Creatinine improved at 1.3, but BUN still elevated at 33, but improved. -S/p IVF. Encourage po hydration. -Monitor BMP Alcohol abuse -S/p CIWA protocol -Continue Thiamine Hemorrhoids: Order preparation H ointment. DVT prophylaxis: Heparin SQ. Discharge Planning PT at rehabilitation versus home health depending on patient progress per PT Problem Qualifiers (1) Cardiomyopathy: Qualified Code: I42.0 - Dilated cardiomyopathy (2) Hypertension: Qualified Code: I10 - Essential hypertension Cayla Maya Aug 16, 2016 11:32
[2016-08-16] MEDS ORDERED: PETROLEUM/SHARK LIVER OIL 60 GM TUBE RECTAL PRN (14:00)
[2016-08-16 20:00] VITALS: BP 102/74; PULSE 98; RESP 18; TEMP 98.1; O2SAT 100
[2016-08-16] MEDS ORDERED: PETROLEUM/SHARK LIVER OIL 60 GM TUBE TOPICAL PRN (20:00)
[2016-08-16] MEDS: ATORVASTATIN 40 MG TAB PO SCH (22:09)
[2016-08-17] MEDS: hydrALAZINE HCL 25 MG TAB PO SCH ×3 (06:34→21:11)
[2016-08-17 08:00] VITALS: BP 118/72; PULSE 76; RESP 18; TEMP 97.8; O2SAT 97
[2016-08-17] MEDS: DOCUSATE SODIUM 50 MG/SENNA 8.6 MG TAB PO SCH ×2 (09:00→21:00)
[2016-08-17] MEDS: HEPARIN SODIUM - SQ 10,000 UNITS/ML VIAL SQ SCH ×2 (10:00→21:10)
[2016-08-17] MEDS: THIAMINE HCL 100 MG TAB PO SCH (10:01)
[2016-08-17] MEDS: CLOPIDOGREL 75 MG TAB PO SCH (10:01)
[2016-08-17] MEDS: amLODIPine BESYLATE 5 MG TAB PO SCH (10:01)
[2016-08-17] MEDS: ASPIRIN EC 81 MG TABEC PO SCH (10:01)
[2016-08-17] MEDS: PANTOPRAZOLE SOD 40 MG DELAYED RELEASE TAB PO SCH (10:01)
--- NOTE | 2016-08-17 10:20 | HHI.PR ---
Subjective Remarks Follow up for CVA, SHANTELLE, HTN. Patient has no acute complaints. Objective Vitals Vital Signs Date Time Temp Pulse Resp B/P Pulse Ox O2 Delivery O2 Flow Rate FiO2 08/16/16 20:00 98.1 98 18 102/74 100 I/O 08/16/16 08/16/16 08/16/16 08/17/16 08/17/16 08/17/16 07:00 15:00 23:00 07:00 15:00 23:00 Intake Total 480 ml 1180 ml 480 ml Output Total 500 ml 203 ml 800 ml Balance -20 ml 977 ml -320 ml Intake Oral 480 ml 1180 ml 480 ml Output Urine Total 500 ml 200 ml 800 ml Stool Total 3 ml # Voids 4 # Bowel Movements 0 0 0 Result Diagram: 08/14/16 0856 Objective Remarks GENERAL: Cachectic-appearing male in no apparent distress. CARDIOVASCULAR: Regular rate and rhythm. 3/6 murmur. RESPIRATORY: No accessory muscle use. Clear to auscultation. Breath sounds equal bilaterally. GASTROINTESTINAL: Normoactive bowel sounds. Bruits bilaterally. Aortic pulsations palpable. Abdomen soft, non-tender, non-distended. NEUROLOGICAL: Awake and alert. Normal speech. Left arm flaccid. PSYCHIATRIC: Appropriate mood and affect; insight and judgment normal. Procedures 08/01/2016 Echo The left ventricular systolic function is eaotgtmy-yk-upcznazn reduced with an estimated ejection fraction in the range of 35-40%. Mild to moderate concentric left ventricular hypertrophy. Global hypokinesis possibly more pronounced in the septum. The anterior wall is not well seen. Normal left ventricular size. Structurally normal mitral valve. There is trace mitral valve regurgitation. Intubation, extubation Urinary Catheter: No Vascular Central Line Catheter: No A/P Problem List: (1) Acute respiratory failure ICD Code: J96.00 Status: Acute (2) CVA (cerebral vascular accident) ICD Code: I63.9 Status: Acute (3) Encephalopathy ICD Code: G93.40 Status: Acute (4) Acute kidney injury ICD Code: N17.9 Status: Acute (5) NSTEMI (non-ST elevated myocardial infarction) ICD Code: I21.4 Status: Acute (6) Cardiomyopathy ICD Code: I42.9 Status: Chronic (7) Carotid artery stenosis ICD Code: I65.29 Status: Chronic (8) Alcohol abuse ICD Code: F10.10 Status: Chronic (9) Tobacco abuse ICD Code: Z72.0 Status: Chronic (10) Hypertension ICD Code: I10 Status: Chronic Assessment and Plan Mr. Porter is a 56-year-old homeless male with a PMH of Anxiety, Depression, HTN, Hyperlipidemia, Alcohol Abuse and Tobacco Abuse with: Acute ischemic stroke right frontal and parietal lobes/Right ICA occlusion: -Continue Plavix 75 and Aspirin 81 mg both daily. -Continue PT/OT. Severe protein calorie malnutrition: BMI 14.8. Muscle wasting. Low albumin but prealbumin wnl at 27 on 08/08/16. -Dietitian was consulted recommending regular diet with no salt packets, Ensure Enlive tid, and send milk and yogurt w/meals for added protein and nutrition Hypertension: Improved -Continue Amlodipine 10mg daily and hydralazine 25mg q8hrs with hold parameters. -Monitor and adjust medication as needed Cardiomyopathy: EF 35-40%. Patient also had elevated troponin but could be attributed due to renal insufficiency. -Cardiology consultation appreciated. Patient was placed on Lisinopril, Lasix, and Carvedilol but these medications were discontinued on 08/09 due to hypotension. Abdominal bruits: bilaterally also with strong pulsations of abdominal aorta although patient is very thin. Risk factors for occlusion/aneurysm include male gender, tobacco use, HLD; h/o R ICA occlusion. -Discussed with Dr. Mcdermott. Obtain US aorta. Acute kidney injury: Creatinine improved at 1.3, but BUN still elevated at 33, but improved. -S/p IVF. Encourage po hydration. -Repeat am BMP Alcohol abuse -S/p CIWA protocol -Continue Thiamine Hemorrhoids: Preparation H ointment prn. DVT prophylaxis: Heparin SQ. Discharge Planning PT at rehabilitation versus home health depending on patient progress per PT Problem Qualifiers (1) Cardiomyopathy: Qualified Code: I42.0 - Dilated cardiomyopathy (2) Hypertension: Qualified Code: I10 - Essential hypertension Cayla Maya Aug 17, 2016 10:20
[2016-08-17 15:00] VITALS: BP 148/71; PULSE 86; RESP 18; TEMP 97.3; O2SAT 100
[2016-08-17 20:00] VITALS: BP 161/78; PULSE 94; RESP 18; TEMP 99.6; O2SAT 100
[2016-08-17] MEDS: ATORVASTATIN 40 MG TAB PO SCH (21:10)
[2016-08-18] VITALS (11 sets, daily range): BP systolic 129–181; BP diastolic 72–87; PULSE 83–100; RESP 14–18; TEMP 97.9–98.7; O2SAT 93–100
[2016-08-18] MEDS: hydrALAZINE HCL 25 MG TAB PO SCH ×3 (05:39→20:45)
[2016-08-18 06:01] LABS: POTASSIUM 3.7 MEQ/L (3.5-5.1)
[2016-08-18] MEDS: amLODIPine BESYLATE 5 MG TAB PO SCH (08:59)
[2016-08-18] MEDS: ASPIRIN EC 81 MG TABEC PO SCH (08:59)
[2016-08-18] MEDS: PANTOPRAZOLE SOD 40 MG DELAYED RELEASE TAB PO SCH (09:00)
[2016-08-18] MEDS: THIAMINE HCL 100 MG TAB PO SCH (09:00)
[2016-08-18] MEDS: DOCUSATE SODIUM 50 MG/SENNA 8.6 MG TAB PO SCH ×2 (09:00→20:45)
[2016-08-18] MEDS: CLOPIDOGREL 75 MG TAB PO SCH (09:00)
[2016-08-18] MEDS: HEPARIN SODIUM - SQ 10,000 UNITS/ML VIAL SQ SCH (09:01)
--- NOTE | 2016-08-18 09:25 | RADRPT ---
EXAM DATE/TIME: 08/18/2016 08:31 [facility] COMPARISON: US LEG LEFT VENOUS DOPPLER, August 04, 2016, 11:25. INDICATIONS : Bruit. MEDICAL HISTORY : Hypercholesterolemia. Hypertension. Osteoarthritis. Arthritis. SURGICAL HISTORY : Right ankle surgery. ENCOUNTER: Initial ACUITY: 1 day PAIN SCORE: 0/10 LOCATION: Aorta. MEASUREMENTS: (AP x TRANSVERSE) PROXIMAL: 1.8 x 1.8 cm MID: 1.5 x 2.0 cm DISTAL: 1.3 x 1.5 cm RIGHT ILIAC: 0.70 x 0.62 cm LEFT ILIAC: 0.60 x 0.64 cm FINDINGS: AORTA: There is mild atherosclerotic disease. Doppler evaluation within normal limits. IVC: Within normal limits. CONCLUSION: 1. The abdominal aorta is normal in caliber. 2. There is mild atherosclerotic plaquing. 3. The renal arteries were not visualized due to overlying bowel gas. Socrates Beal MD on August 18, 2016 at 9:20 Board Certified Radiologist. This report was verified electronically.
--- NOTE | 2016-08-18 10:30 | HHI.PR ---
Objective Vitals Vital Signs Date Time Temp Pulse Resp B/P Pulse Ox O2 Delivery O2 Flow Rate FiO2 08/18/16 08:00 98.2 92 18 181/82 99 08/18/16 05:40 94 171/83 08/17/16 20:00 99.6 94 18 161/78 100 08/17/16 15:00 97.3 86 18 148/71 100 I/O 08/17/16 08/17/16 08/17/16 08/18/16 08/18/16 08/18/16 07:00 15:00 23:00 07:00 15:00 23:00 Intake Total 480 ml 1060 ml 0 ml Output Total 800 ml 1200 ml 250 ml 300 ml Balance -320 ml -140 ml -250 ml -300 ml Intake Oral 480 ml 1060 ml 0 ml Output Urine Total 800 ml 1200 ml 250 ml 300 ml # Bowel Movements 0 2 0 0 Result Diagram: 08/18/16 0530 Objective Remarks GENERAL: Cachectic-appearing male in no apparent distress. CARDIOVASCULAR: Regular rate and rhythm. 3/6 murmur. RESPIRATORY: No accessory muscle use. Clear to auscultation. Breath sounds equal bilaterally. GASTROINTESTINAL: Normoactive bowel sounds. Bruits bilaterally. Aortic pulsations palpable. Abdomen soft, non-tender, non-distended. NEUROLOGICAL: Awake and alert. Normal speech. Left arm flaccid. PSYCHIATRIC: Appropriate mood and affect; insight and judgment normal. Procedures 08/01/2016 Echo The left ventricular systolic function is wrmpktye-ok-ripdrutb reduced with an estimated ejection fraction in the range of 35-40%. Mild to moderate concentric left ventricular hypertrophy. Global hypokinesis possibly more pronounced in the septum. The anterior wall is not well seen. Normal left ventricular size. Structurally normal mitral valve. There is trace mitral valve regurgitation. Intubation, extubation A/P Problem List: (1) Acute respiratory failure ICD Code: J96.00 Status: Acute (2) CVA (cerebral vascular accident) ICD Code: I63.9 Status: Acute (3) Encephalopathy ICD Code: G93.40 Status: Acute (4) Acute kidney injury ICD Code: N17.9 Status: Acute (5) NSTEMI (non-ST elevated myocardial infarction) ICD Code: I21.4 Status: Acute (6) Cardiomyopathy ICD Code: I42.9 Status: Chronic (7) Carotid artery stenosis ICD Code: I65.29 Status: Chronic (8) Alcohol abuse ICD Code: F10.10 Status: Chronic (9) Tobacco abuse ICD Code: Z72.0 Status: Chronic (10) Hypertension ICD Code: I10 Status: Chronic Assessment and Plan Mr. Porter is a 56-year-old homeless male with a PMH of Anxiety, Depression, HTN, Hyperlipidemia, Alcohol Abuse and Tobacco Abuse with: Acute ischemic stroke right frontal and parietal lobes/Right ICA occlusion: -Continue Plavix 75 and Aspirin 81 mg both daily. -Continue PT/OT. Severe protein calorie malnutrition: BMI 14.8. Muscle wasting. Low albumin but prealbumin wnl at 27 on 08/08/16. -Dietitian was consulted recommending regular diet with no salt packets, Ensure Enlive tid, and send milk and yogurt w/meals for added protein and nutrition Hypertension: Improved -Continue Amlodipine 10mg daily and hydralazine 25mg q8hrs with hold parameters. -Monitor and adjust medication as needed Cardiomyopathy: EF 35-40%. Patient also had elevated troponin but could be attributed due to renal insufficiency. -Cardiology consultation appreciated. Patient was placed on Lisinopril, Lasix, and Carvedilol but these medications were discontinued on 08/09 due to hypotension. Abdominal bruits: bilaterally also with strong pulsations of abdominal aorta although patient is very thin. Risk factors for occlusion/aneurysm include male gender, tobacco use, HLD; h/o R ICA occlusion. -Discussed with Dr. Mcdermott. Obtain US aorta. Acute kidney injury: Creatinine improved at 1.3, but BUN still elevated at 33, but improved. -S/p IVF. Encourage po hydration. -Repeat am BMP Alcohol abuse -S/p CIWA protocol -Continue Thiamine Hemorrhoids: Preparation H ointment prn. DVT prophylaxis: Heparin SQ. Discharge Planning PT at rehabilitation versus home health depending on patient progress per PT Problem Qualifiers (1) Cardiomyopathy: Qualified Code: I42.0 - Dilated cardiomyopathy (2) Hypertension: Qualified Code: I10 - Essential hypertension Cayla Maya Aug 18, 2016 10:29
[2016-08-18 10:39] LABS: AUTOMATED NEUTROPHIL # 4.9 TH/MM3 (1.8-7.7); BASOPHIL # 0.3 TH/MM3 (0-0.2); BASOPHIL % 3.4 % (0.0-2.0); EOSINOPHIL # 0.2 TH/MM3 (0-0.4); EOSINOPHIL % 1.9 % (0.0-4.0); LYMPH % 26.3 % (9.0-44.0); LYMPHOCYTE # 2.2 TH/MM3 (1.0-4.8); MEAN CELL VOLUME 90.4 FL (80.0-100.0); MEAN CORPUSCULAR HEMOGLOBIN 29.8 PG (27.0-34.0); NEUT % 60.4 % (16.0-70.0); PLATELET COUNT 398 TH/MM3 (150-450); RED BLOOD COUNT 1.67 MIL/MM3 (4.50-5.90); RED CELL DISTRIBUTION WIDTH 15.6 % (11.6-17.2); WHITE BLOOD COUNT 8.3 TH/MM3 (4.0-11.0)
--- NOTE | 2016-08-18 10:41 | HHI.PR ---
Subjective Remarks The patient is in bed. He feel very tired says she only wants to sleep. He is seeing black spots. Says he is sob especially with exertion. No chest pain. Says she had noticed black stool. No vomiting, diarrhea or constipation. Fels nauseated earlier. His HGB dropped to 5, patient severely anemic Objective Vitals Vital Signs Date Time Temp Pulse Resp B/P Pulse Ox O2 Delivery O2 Flow Rate FiO2 08/18/16 08:00 98.2 92 18 181/82 99 08/18/16 05:40 94 171/83 08/17/16 20:00 99.6 94 18 161/78 100 08/17/16 15:00 97.3 86 18 148/71 100 I/O 08/17/16 08/17/16 08/17/16 08/18/16 08/18/16 08/18/16 07:00 15:00 23:00 07:00 15:00 23:00 Intake Total 480 ml 1060 ml 0 ml Output Total 800 ml 1200 ml 250 ml 300 ml Balance -320 ml -140 ml -250 ml -300 ml Intake Oral 480 ml 1060 ml 0 ml Output Urine Total 800 ml 1200 ml 250 ml 300 ml # Bowel Movements 0 2 0 0 Result Diagram: 08/18/16 0530 Objective Remarks General: Patient is a cachectic 56 yo male, in bed, appears tired. Skin: Pale. Left heel with small unstageable wound healing well. Neck: Supple, no JVD, No Lymphadenopathy. Lungs: Breath sounds clear to auscultation bilaterally. No wheezing. No accessory muscle use. Heart: Tachycardic. Regular rate and rhythm. Abdomen: + BS x4Q, non distended, abdominal bruit. Extremities: No Clubbing, cyanosis or edema. Very thin, muscle waisting. Neurological: Left side paresis. Able to move left leg more than left arm. Procedures 08/01/2016 Echo The left ventricular systolic function is egrcfkyg-ok-qszttlbz reduced with an estimated ejection fraction in the range of 35-40%. Mild to moderate concentric left ventricular hypertrophy. Global hypokinesis possibly more pronounced in the septum. The anterior wall is not well seen. Normal left ventricular size. Structurally normal mitral valve. There is trace mitral valve regurgitation. Intubation, extubation A/P Problem List: (1) Acute respiratory failure ICD Code: J96.00 Status: Acute (2) CVA (cerebral vascular accident) ICD Code: I63.9 Status: Acute (3) Encephalopathy ICD Code: G93.40 Status: Acute (4) Acute kidney injury ICD Code: N17.9 Status: Acute (5) NSTEMI (non-ST elevated myocardial infarction) ICD Code: I21.4 Status: Acute (6) Cardiomyopathy ICD Code: I42.9 Status: Chronic (7) Carotid artery stenosis ICD Code: I65.29 Status: Chronic (8) Alcohol abuse ICD Code: F10.10 Status: Chronic (9) Tobacco abuse ICD Code: Z72.0 Status: Chronic (10) Hypertension ICD Code: I10 Status: Chronic Assessment and Plan Mr. Porter is a 56-year-old homeless male with a PMH of Anxiety, Depression, HTN, Hyperlipidemia, Alcohol Abuse and Tobacco Abuse with: Acute severe anemia from GIB. Patient with melena. HGB is 5 , HTC of 15. Patient is symptomatic. Stat type and screen. Transfuse 2U PRBC, monitor H/H and transfuse if HGB< 9 or is still symptomatic. Start protonix 40 mg IV BID. Consult GI specialist Transfer to medical floor for transfusion and close monitoring. Hold plavix and ASA. Hold heparin sq as well. Acute ischemic stroke right frontal and parietal lobes/Right ICA occlusion: HOLD Plavix 75 and Aspirin 81 mg daily as patient with severe anemia PT/OT. Severe protein calorie malnutrition: BMI 14.8. Muscle wasting. Low albumin but prealbumin wnl at 27 on 08/08/16. Dietitian was consulted recommending regular diet with no salt packets, Ensure Enlive tid, and send milk and yogurt w/meals for added protein and nutrition Hypertension: Currently with hypotention Hold BP meds. Monitor closely BP as patient now with GIB and BP might deteriorate Monitor and adjust medication as needed Cardiomyopathy, alcohol use related: EF 35-40%. Patient also had elevated troponin but could be attributed due to renal insufficiency. Cardiology consultation appreciated. Patient was placed on Lisinopril, Lasix, and Carvedilol but these medications were discontinued on 08/09 due to hypotension. Monitor closely clinically , pretreat with lasix while transfused if BP permits as patient might have CHF exacerbation with blood transfusion Abdominal bruits: bilaterally also with strong pulsations of abdominal aorta although patient is very thin. patient also with anemia, explains exacerbation of bruit.Risk factors for occlusion/aneurysm include male gender, tobacco use, HLD; h/o R ICA occlusion. US aorta reviewed. Acute kidney injury: Creatinine improved at 1.3, but BUN still elevated at 33, but improved. -S/p IVF. Encourage po hydration. -Repeat am BMP Alcohol abuse S/p CIWA protocol Continue Thiamine Hemorrhoids: Preparation H ointment prn. DVT prophylaxis: Heparin SQ on hold 2/2 GIB. CI chemoppx at this time 2/2 GIB . Discharge Planning Pending improvement now with severe anemia 2/2 GIB. PT at rehabilitation versus home health depending on patient progress per PT Discussed with the patient, nurse, Dr Agarwal GI specialist Problem Qualifiers (1) Cardiomyopathy: Qualified Code: I42.0 - Dilated cardiomyopathy (2) Hypertension: Qualified Code: I10 - Essential hypertension Richelle Mcdermott MD Aug 18, 2016 10:41
[2016-08-18 10:49] LABS: HEMO FLAGS AUTO DIFF
[2016-08-18 10:52] LABS: HEMATOCRIT 15.1 % (39.0-51.0)
[2016-08-18] MEDS ORDERED: diphenhydrAMINE HCL 25 MG CAP PO PRN (11:00)
[2016-08-18] MEDS ORDERED: ACETAMINOPHEN 325 MG TAB PO PRN (11:00)
[2016-08-18] MEDS ORDERED: SODIUM CHLOR 0.9% 250 ML INJ 250 ML IV ONE (11:00)
[2016-08-18 11:46] LABS: SCAN/DIFF AUTO DIFF CONFIRMED
[2016-08-18] MEDS ORDERED: FUROSEMIDE 20 MG/2 ML VIAL IV ONE ×2 (12:00→20:45)
[2016-08-18] MEDS: PANTOPRAZOLE SODIUM 40 MG VIAL IV PUSH SCH (13:50)
--- NOTE | 2016-08-18 16:19 | MB ---
cc: JANEE TAM DATE OF CONSULTATION 08/18/16 DATE OF REFERRING PHYSICIAN ____ REASON FOR CONSULTATION Anemia and melena. HISTORY OF PRESENT ILLNESS Thank you for the consultation. A 56-year-old male who came to the hospital because of history of alcohol abuse, tobacco abuse multiple medical problems. The patient had a stroke. He was moved to [place] for long-term rehab. The patient was doing okay until today when he started having black stool and some melena with significant drop in his hemoglobin. The patient denied any GI symptoms before. He was started on anticoagulation in the last week. He had no significant GI symptom. No GI workup in the past. REVIEW OF SYSTEMS All 12-point negative except HPI. The patient complaining of some weight loss because of lack of appetite, general weakness and fatigue. PAST MEDICAL HISTORY Significant for hyperlipidemia, hypertension, depression and anxiety. ALLERGIES No known drug allergy. PAST SURGICAL HISTORY Right ankle surgery, retinal detachment. SOCIAL HISTORY Positive for tobacco and alcohol until the patient came to the hospital. MEDICATIONS Reviewed in the chart including anticoagulation. PHYSICAL EXAMINATION GENERAL: Alert, oriented, no acute distress at this time. VITAL SIGNS: Stable. HEENT: Pupils are round, reactive to light. NECK: Supple. CHEST: Clear to auscultation and precaution. CARDIAC: Regular rate and rhythm. ABDOMEN: Soft, nondistended. Positive bowel sounds. EXTREMITIES: The patient has left-sided paralysis, able to move the left leg pain but very minimal movement of the left arm. LABORATORY DATA White count 8.3, hemoglobin 5.0, 10 days ago was 10.3. Platelet 393. INR none recently. BUN 27, creatinine 1.2. IMAGING STUDIES Aortic ultrasound was normal. ASSESSMENT/PLAN A 56-year-old male who had a recent stroke who was started on anticoagulation. The patient had melena, most likely GI bleed. I recommend transfusion for at least hemoglobin of 8. The patient had recent stroke so he will need to be on the lowest possible anticoagulation. The patient will need upper endoscopy and a colonoscopy in the next few days. We will follow up with you. MD DERICK Echols/EO /3:32 PM /4:01 PM
[2016-08-18] MEDS: ONDANSETRON ODT 4 MG TAB PO PRN ×2 (18:14→20:45)
[2016-08-18] MEDS: ATORVASTATIN 40 MG TAB PO SCH (20:45)
[2016-08-19] VITALS (10 sets, daily range): BP systolic 130–183; BP diastolic 75–114; PULSE 73–89; RESP 12–18; TEMP 97.3–98.9; O2SAT 96–100
[2016-08-19] MEDS: PANTOPRAZOLE SODIUM 40 MG VIAL IV PUSH SCH ×2 (00:14→13:27)
[2016-08-19 00:44] LABS: HEMATOCRIT 29.2 % (39.0-51.0)
[2016-08-19 00:45] LABS: REVIEW FLAG FINAL
[2016-08-19] MEDS: hydrALAZINE HCL 25 MG TAB PO SCH ×3 (05:27→21:00)
[2016-08-19] MEDS ORDERED: ENALAPRILAT 1.25 MG/ML VIAL IV PUSH PRN (08:15)
[2016-08-19] MEDS: THIAMINE HCL 100 MG TAB PO SCH (08:34)
[2016-08-19] MEDS: amLODIPine BESYLATE 5 MG TAB PO SCH (08:36)
[2016-08-19] MEDS: DOCUSATE SODIUM 50 MG/SENNA 8.6 MG TAB PO SCH ×2 (08:36→21:00)
--- NOTE | 2016-08-19 12:33 | HHI.PR ---
Subjective Remarks Patient seen and evaluated in follow-up for GI bleed and for weakness. Hemoglobin remained stable. Discussed with Fidel RN and with patient regarding plan of care Objective Vitals Vital Signs Date Time Temp Pulse Resp B/P Pulse Ox O2 Delivery O2 Flow Rate FiO2 08/19/16 08:00 97.4 86 16 157/84 98 08/19/16 06:40 83 18 160/84 99 08/19/16 06:00 86 18 175/84 100 08/19/16 05:28 89 18 183/114 99 08/19/16 05:21 98.9 77 14 130/76 97 08/19/16 00:18 98.0 79 12 138/80 96 08/18/16 23:40 98.6 88 18 138/75 98 08/18/16 20:58 98.6 89 18 165/77 98 08/18/16 20:42 98.6 86 18 130/85 100 08/18/16 20:19 98.6 86 14 179/85 100 08/18/16 20:00 98.6 86 18 129/85 100 08/18/16 18:12 98.7 85 16 164/80 99 08/18/16 16:36 100 16 156/72 100 08/18/16 16:00 98.3 88 18 143/87 100 I/O 08/18/16 08/18/16 08/18/16 08/19/16 08/19/16 08/19/16 07:00 15:00 23:00 07:00 15:00 23:00 Intake Total 0 ml 480 ml 415 ml Output Total 250 ml 875 ml 1200 ml 520 ml Balance -250 ml -395 ml -785 ml -520 ml Intake Oral 0 ml 480 ml IV Total 115 ml Packed Cells 300 ml Output Urine Total 250 ml 875 ml 1200 ml 520 ml # Voids 1 # Bowel Movements 0 0 Result Diagram: 08/19/16 0025 08/18/16 0530 Imaging Last Impressions Aorta Ultrasound 08/18/16 0000 Signed Impressions: Service Date/Time: Thursday, August 18, 2016 08:31 - CONCLUSION: 1. The abdominal aorta is normal in caliber. 2. There is mild atherosclerotic plaquing. 3. The renal arteries were not visualized due to overlying bowel gas. Socrates Beal MD Head CT 7/1/17 0000 Signed Impressions: Service Date/Time: Friday, August 05, 2016 20:28 - CONCLUSION: 1. No acute abnormality is seen. 2. There is encephalomalacia in the right frontal and parietal lobes. 3. Bilateral maxillary sinus disease. Lacho Dey MD Lower Extremity Ultrasound 08/04/16 Signed Impressions: Service Date/Time: Thursday, August 04, 2016 11:25 - CONCLUSION: No evidence of deep venous thrombosis within the left lower extremity. Joon Holguin MD Ankle X-Ray 08/04/16 Signed Impressions: Service Date/Time: Thursday, August 04, 2016 10:48 - CONCLUSION: Negative for fracture. Galen Beal MD FACR Neck Magnetic Resonance Angiography 07/31/16 Signed Impressions: Service Date/Time: Sunday, July 31, 2016 17:46 - CONCLUSION: Total occlusion of the right internal carotid artery. Slightly less than 50%% eccentric stenosis of the proximal left internal carotid artery. High-grade eccentric stenosis of the left subclavian artery proximal to a diminutive left vertebral artery. Lacho Morel MD Head Magnetic Resonance Angiography 07/31/16 Signed Impressions: Service Date/Time: Sunday, July 31, 2016 17:46 - CONCLUSION: 1. Occlusion of the right internal carotid artery. 2. Multiple missing vessels distal to the right MCA trifurcation consistent with occlusion. Morales Miller MD Chest X-Ray 07/31/16 Signed Impressions: Service Date/Time: Sunday, July 31, 2016 07:49 - CONCLUSION: 1. ETT in good position. 2. Interval development of diffuse bilateral airspace disease with small right and wipzx-rb-jlxpshvk left pleural effusions. Differential considerations include pulmonary edema versus diffuse infection versus developing ARDS. Doug Valencia MD Brain MRI 07/31/16 Signed Impressions: Service Date/Time: Sunday, July 31, 2016 17:46 - CONCLUSION: 1. Multiple areas of restricted diffusion involving the right frontal and parietal lobes consistent with areas of acute to subacute infarction. 2. No evidence of hemorrhage, mass effect or midline shift. 3. Old area of encephalomalacia involving the right inferior frontal lobe. Morales Miller MD Objective Remarks GENERAL: This is a frail and cachectic gentleman patient, in no apparent distress. CARDIOVASCULAR: Regular rate and rhythm without murmurs, gallops, or rubs. RESPIRATORY: Clear to auscultation. Breath sounds equal bilaterally. No wheezes , rales, or rhonchi. GASTROINTESTINAL: Abdomen soft, non-tender, nondistended. Normal active bowel sounds MUSCULOSKELETAL: Extremities without clubbing, cyanosis, or edema. Bilateral booties due to decubitus NEURO: Left sided weakness . Alert & Oriented x4 to person, place, time, situation. Procedures 08/01/2016 Echo The left ventricular systolic function is loeiwzvo-cs-rvsjgblu reduced with an estimated ejection fraction in the range of 35-40%. Mild to moderate concentric left ventricular hypertrophy. Global hypokinesis possibly more pronounced in the septum. The anterior wall is not well seen. Normal left ventricular size. Structurally normal mitral valve. There is trace mitral valve regurgitation. Intubation, extubation A/P Problem List: (1) GI bleed ICD Code: K92.2 Status: Acute Plan: Status post 2 units of packed red blood cells with hemoglobin going from 5.0-9.6 GI aware due to melena, likely endoscopy on Sunday (2) Hypertension ICD Code: I10 Status: Chronic Plan: Continue amlodipine and hydralazine (3) Cardiomyopathy ICD Code: I42.9 Status: Chronic Plan: Likely alcohol related, EF of 35-40%, beta terry and TAE inhibitor were held due to hypotension, will continue hydralazine for now (4) CVA (cerebral vascular accident) ICD Code: I63.9 Status: Acute Plan: Patient had been on Plavix and aspirin which were held due to his GI bleed Cognitive impairment Assessment and Plan Patient is a 56-year-old homeless man who was admitted on 07/31 with dehydration , respiratory distress and altered mental status.. 2-D echocardiogram 07/31/16 revealing EF of 30-35%, grade 2 diastolic dysfunction and trace mitral and tricuspid regurgitation. He was intubated and maintained in ICU under full mechanical ventilation for hypoxemic respiratory failure with evidence of basilar congestion and CHF exacerbation. He was also found to have an acute stroke in the right frontal parietal lobes. Patient has been admitted in the long-term unit at [facility] and did have some evidence of melanotic stools and has been transferred to the [facility] unit for further evaluation. Gastrointestinal evaluation does recommend endoscopy. Hemoglobin remains stable at this time Problem Qualifiers (1) Hypertension: Qualified Code: I10 - Essential hypertension (2) Cardiomyopathy: Qualified Code: I42.0 - Dilated cardiomyopathy Eun Roberts MD Aug 19, 2016 12:33
[2016-08-19 15:57] LABS: HEMATOCRIT 24.5 % (39.0-51.0); REVIEW FLAG FINAL
[2016-08-19] MEDS: ATORVASTATIN 40 MG TAB PO SCH (21:01)
[2016-08-20] VITALS: BP 170/80; PULSE 72; RESP 16; TEMP 97.7; O2SAT 98
[2016-08-20] MEDS: PANTOPRAZOLE SODIUM 40 MG VIAL IV PUSH SCH ×3 (00:09→23:42)
[2016-08-20 04:00] VITALS: BP 158/70
[2016-08-20] MEDS: hydrALAZINE HCL 25 MG TAB PO SCH ×3 (05:26→20:52)
[2016-08-20 08:09] VITALS: BP 185/72; PULSE 74; RESP 18; TEMP 97.2; O2SAT 98
[2016-08-20] MEDS: THIAMINE HCL 100 MG TAB PO SCH (09:41)
[2016-08-20] MEDS: amLODIPine BESYLATE 5 MG TAB PO SCH (09:41)
[2016-08-20] MEDS: DOCUSATE SODIUM 50 MG/SENNA 8.6 MG TAB PO SCH ×2 (09:41→20:52)
--- NOTE | 2016-08-20 09:45 | HHI.PR ---
Subjective Remarks Patient seen today in follow-up for GI bleed with anemia and for hypertension. Patient comfortable in ordering his breakfast. No new complaints. Care plan discussed Fidel HERNÁNDEZ Objective Vitals Vital Signs Date Time Temp Pulse Resp B/P Pulse Ox O2 Delivery O2 Flow Rate FiO2 08/20/16 08:09 97.2 74 18 185/72 98 08/20/16 04:00 158/70 08/20/16 00:00 97.7 72 16 170/80 98 08/19/16 20:00 97.8 80 16 176/90 98 08/19/16 16:00 97.3 84 16 142/78 99 08/19/16 12:00 97.4 82 16 152/75 99 I/O 08/19/16 08/19/16 08/19/16 08/20/16 08/20/16 08/20/16 07:00 15:00 23:00 07:00 15:00 23:00 Intake Total 1240 ml 480 ml 360 ml Output Total 520 ml 250 ml 200 ml 700 ml Balance -520 ml 990 ml 280 ml -340 ml Intake Oral 1240 ml 480 ml 360 ml Output Urine Total 520 ml 250 ml 200 ml 700 ml # Voids 1 # Bowel Movements 0 0 Result Diagram: 08/19/16 1550 08/18/16 0530 Objective Remarks GENERAL: This is a frail and cachectic gentleman patient, in no apparent distress. CARDIOVASCULAR: Regular rate and rhythm without murmurs, gallops, or rubs. RESPIRATORY: Clear to auscultation. Breath sounds equal bilaterally. No wheezes , rales, or rhonchi. GASTROINTESTINAL: Abdomen soft, non-tender, nondistended. Normal active bowel sounds MUSCULOSKELETAL: Extremities without clubbing, cyanosis, or edema. Bilateral booties due to decubitus NEURO: Left sided weakness . Alert & Oriented x4 to person, place, time, situation. Procedures 08/01/2016 Echo The left ventricular systolic function is oclcjajl-fs-xfmailyy reduced with an estimated ejection fraction in the range of 35-40%. Mild to moderate concentric left ventricular hypertrophy. Global hypokinesis possibly more pronounced in the septum. The anterior wall is not well seen. Normal left ventricular size. Structurally normal mitral valve. There is trace mitral valve regurgitation. Intubation, extubation A/P Problem List: (1) GI bleed ICD Code: K92.2 Status: Acute Plan: Status post 2 units of packed red blood cells with repeat hemoglobin 8.6 GI aware due to melena, likely endoscopy on Sunday (2) Hypertension ICD Code: I10 Status: Chronic Plan: Continue amlodipine and hydralazine [facility] (3) Cardiomyopathy ICD Code: I42.9 Status: Chronic Plan: Likely alcohol related, EF of 35-40%, Blood pressure improved, continue blood pressure medicines (4) CVA (cerebral vascular accident) ICD Code: I63.9 Status: Acute Plan: Patient had been on Plavix and aspirin which were held due to his GI bleed Cognitive impairment Assessment and Plan Patient is a 56-year-old homeless man who was admitted on 07/31 with dehydration , respiratory distress and altered mental status.. 2-D echocardiogram 07/31/16 revealing EF of 30-35%, grade 2 diastolic dysfunction and trace mitral and tricuspid regurgitation. He was intubated and maintained in ICU under full mechanical ventilation for hypoxemic respiratory failure with evidence of basilar congestion and CHF exacerbation. He was also found to have an acute stroke in the right frontal parietal lobes. Patient has been admitted in the long-term unit at [facility] and did have some evidence of melanotic stools and has been transferred to the [facility] unit for further evaluation. Gastrointestinal evaluation does recommend endoscopy. Hemoglobin remains stable at this time Problem Qualifiers (1) Hypertension: Qualified Code: I10 - Essential hypertension (2) Cardiomyopathy: Qualified Code: I42.0 - Dilated cardiomyopathy Eun Roberts MD Aug 20, 2016 09:44
--- NOTE | 2016-08-20 10:59 | HHI.GIFU ---
Subjective Remarks feels ok, in bed comfortable, no new issues Objective Vitals I&O Vital Signs Date Time Temp Pulse Resp B/P Pulse Ox O2 Delivery O2 Flow Rate FiO2 08/20/16 08:09 97.2 74 18 185/72 98 08/20/16 04:00 158/70 08/20/16 00:00 97.7 72 16 170/80 98 08/19/16 20:00 97.8 80 16 176/90 98 08/19/16 16:00 97.3 84 16 142/78 99 08/19/16 12:00 97.4 82 16 152/75 99 I/O 08/19/16 08/19/16 08/19/16 08/20/16 08/20/16 08/20/16 07:00 15:00 23:00 07:00 15:00 23:00 Intake Total 1240 ml 480 ml 360 ml Output Total 520 ml 250 ml 200 ml 700 ml Balance -520 ml 990 ml 280 ml -340 ml Intake Oral 1240 ml 480 ml 360 ml Output Urine Total 520 ml 250 ml 200 ml 700 ml # Voids 1 # Bowel Movements 0 0 Laboratory Laboratory Tests Test 08/19/16 15:50 Hemoglobin 8.6 Hematocrit 24.5 Physical Exam HEENT: Pupils round and reactive to light; normocephalic; atraumatic; no jaundice. Throat is clear. NECK: Neck is supple, no JVD, no lymphadenopathy. CHEST: Chest is clear to auscultation and percussion. CARDIAC: Regular rate and rhythm with no murmur gallop or rubs. ABDOMEN: Soft, nondistended, nontender; no hepatosplenomegaly; bowel sounds are present in all four quadrants. EXTREMITIES: No clubbing, cyanosis, or edema. left side weakness SKIN: Normal; no rash; no jaundice. TECHNICAL TRANSLATOR: No focal deficits; alert and oriented times three. Assessment and Plan Plan patient is doing ok, most likely upper GI bleed plan colon EGD in am we will prep him Kerry Agarwal MD Aug 20, 2016 10:59
[2016-08-20 12:32] VITALS: BP 182/70; PULSE 68; RESP 19; TEMP 97.8; O2SAT 99
[2016-08-20] MEDS: cloNIDine HCL 0.1 MG TAB PO PRN ×2 (12:54→23:45)
[2016-08-20] MEDS ORDERED: PEG (High)/E-LYTE SOLN 4000 ML BTL PO ONE (13:00)
[2016-08-20 16:32] VITALS: BP 150/60; PULSE 68; RESP 19; TEMP 97.6; O2SAT 100
[2016-08-20] MEDS: ATORVASTATIN 40 MG TAB PO SCH (20:52)
[2016-08-20 21:59] VITALS: BP 154/67; PULSE 66; RESP 18; TEMP 97.9; O2SAT 99
[2016-08-21] VITALS (7 sets, daily range): BP systolic 126–178; BP diastolic 67–81; PULSE 65–76; RESP 15–20; TEMP 97.6–98.9; O2SAT 96–100
[2016-08-21] MEDS: hydrALAZINE HCL 25 MG TAB PO SCH ×3 (05:06→21:11)
[2016-08-21] MEDS: amLODIPine BESYLATE 5 MG TAB PO SCH (08:40)
[2016-08-21] MEDS: THIAMINE HCL 100 MG TAB PO SCH (08:40)
[2016-08-21] MEDS: DOCUSATE SODIUM 50 MG/SENNA 8.6 MG TAB PO SCH ×2 (09:00→21:12)
--- NOTE | 2016-08-21 11:18 | HHI.PR ---
Subjective Remarks patient seen in follow up for GI bleed which appears resolved. He has had trouble completing the bowel prep for his endoscopy. Objective Vitals Vital Signs Date Time Temp Pulse Resp B/P Pulse Ox O2 Delivery O2 Flow Rate FiO2 08/21/16 08:00 98.5 68 18 137/67 99 08/21/16 05:40 98.1 67 16 152/70 97 08/21/16 01:14 98.3 69 16 178/81 96 08/20/16 21:59 97.9 66 18 154/67 99 08/20/16 16:32 97.6 68 19 150/60 100 08/20/16 12:32 97.8 68 19 182/70 99 I/O 08/20/16 08/20/16 08/20/16 08/21/16 08/21/16 08/21/16 07:00 15:00 23:00 07:00 15:00 23:00 Intake Total 360 ml 15 ml 850 ml Output Total 700 ml 500 ml Balance -340 ml 15 ml 850 ml -500 ml Intake Oral 360 ml 850 ml IV Total 15 ml Output Urine Total 700 ml 500 ml # Voids 5 # Bowel Movements 0 0 2 Result Diagram: 08/19/16 1550 08/18/16 0530 Objective Remarks GENERAL: This is a frail and cachectic gentleman patient, in no apparent distress. CARDIOVASCULAR: Regular rate and rhythm without murmurs, gallops, or rubs. RESPIRATORY: Clear to auscultation. Breath sounds equal bilaterally. No wheezes , rales, or rhonchi. GASTROINTESTINAL: Abdomen soft, non-tender, nondistended. Normal active bowel sounds MUSCULOSKELETAL: Extremities without clubbing, cyanosis, or edema. Bilateral booties due to decubitus NEURO: Left sided weakness . Alert & Oriented x4 to person, place, time, situation. Procedures 08/01/2016 Echo The left ventricular systolic function is ckdjbqti-fq-eaowgyjz reduced with an estimated ejection fraction in the range of 35-40%. Mild to moderate concentric left ventricular hypertrophy. Global hypokinesis possibly more pronounced in the septum. The anterior wall is not well seen. Normal left ventricular size. Structurally normal mitral valve. There is trace mitral valve regurgitation. Intubation, extubation A/P Problem List: (1) GI bleed ICD Code: K92.2 Status: Acute Plan: Status post 2 units of packed red blood cells GI aware due to melena, likely endoscopy this afternoon (2) Hypertension ICD Code: I10 Status: Chronic Plan: Continue amlodipine and hydralazine, add cozaar Discussed with Michaelrigor RN (3) Cardiomyopathy ICD Code: I42.9 Status: Chronic Plan: Likely alcohol related, EF of 35-40%, Blood pressure improved, continue blood pressure medicines add arb (4) CVA (cerebral vascular accident) ICD Code: I63.9 Status: Acute Plan: Patient had been on Plavix and aspirin which were held due to his GI bleed Cognitive impairment rehab efforts Assessment and Plan Patient is a 56-year-old homeless man who was admitted on 07/31 with dehydration , respiratory distress and altered mental status.. 2-D echocardiogram 07/31/16 revealing EF of 30-35%, grade 2 diastolic dysfunction and trace mitral and tricuspid regurgitation. He was intubated and maintained in ICU under full mechanical ventilation for hypoxemic respiratory failure with evidence of basilar congestion and CHF exacerbation. He was also found to have an acute stroke in the right frontal parietal lobes. Patient has been admitted in the long-term [facility] at [facility] and did have some evidence of melanotic stools and has been transferred to the [facility] unit for further evaluation. Gastrointestinal evaluation does recommend endoscopy. Hemoglobin remains stable at this time Problem Qualifiers (1) Hypertension: Qualified Code: I10 - Essential hypertension (2) Cardiomyopathy: Qualified Code: I42.0 - Dilated cardiomyopathy Eun Roberts MD Aug 21, 2016 11:18
[2016-08-21] MEDS ORDERED: PROPOFOL 200 MG/20 ML AMP IV ONE (15:52)
--- NOTE | 2016-08-21 16:01 | GIPROC ---
[facility] [address] [place] [address], [id number] EGD PROCEDURE REPORT EXAM DATE: 08/21/2016 PATIENT NAME: Joon Porter MR #: [id number] BIRTHDATE: 1960 ATTENDING: Jannet Ospina MD ORDER #: [id number] DATA ENTRY PROCESSOR: Richard Palmer and Nimesh Irwin STATUS: inpatient INDICATIONS: The patient is a 56 yr old male here for an EGD due to iron deficiency anemia PROCEDURE PERFORMED: EGD w/ biopsy MEDICATIONS: None and Per Anesthesia. TOPICAL ANESTHETIC: CONSENT: The patient understands the risks and benefits of the procedure and understands that these risks include, but are not limited to: sedation, allergic reaction, infection, perforation and/or bleeding. Alternative means of evaluation and treatment include, among others: physical exam, x-rays, and/or surgical intervention. The patient elects to proceed with this endoscopic procedure. medical equipment was checked for proper function. Hand hygiene and appropriate measures for infection prevention was taken. After the risks, benefits and alternatives of the procedure were thoroughly explained, Informed consent was verified, confirmed and timeout was successfully executed by the treatment team. The patient was anesthetized with topical anesthesia and the [id number] (Pedi C) endoscope was introduced through the mouth and advanced to the second portion of the duodenum. Retroflexed views revealed no abnormalities The gastroscope was then slowly withdrawn and removed. ESOPHAGUS: There was LA Class A esophagitis noted. A biopsy was performed using cold forceps. Sample sent for histology. STOMACH: The mucosa of the stomach appeared normal. DUODENUM: The duodenal mucosa appeared normal. ADVERSE EVENTS: There were no complications. IMPRESSIONS: 1. There was LA Class A esophagitis noted; biopsy was performed 2. The mucosa of the stomach appeared normal 3. Normal duodenal mucosa 4. Retroflexed views revealed no abnormalities RECOMMENDATIONS: 1. Await biopsy results. Biopsy results will not be ready for 7-10 days. If you don't hear from us in two weeks, call our office for biopsy results. 2. Anti-reflux regimen 3. Colonoscopy 4. Continue PPI PATIENT CONDITION: stable DISPOSITION: Inpatient REPEAT EXAM: Return 3 years EGD pending biopsy results Jannet Ospina MD eSigned: Jannet Ospina MD 08/21/2016 4:00 PM cc: PATIENT NAME: Joon Porter MR#: [id number]
[2016-08-21] MEDS ORDERED: PEG (High)/E-LYTE SOLN 4000 ML BTL PO ONE (17:00)
[2016-08-21] MEDS: PANTOPRAZOLE SODIUM 40 MG VIAL IV PUSH SCH ×2 (17:45→23:16)
[2016-08-21] MEDS: ATORVASTATIN 40 MG TAB PO SCH (21:13)
[2016-08-22 04:00] VITALS: BP 146/77; PULSE 72; RESP 19; TEMP 97; O2SAT 100
[2016-08-22 05:25] VITALS: BP 163/89; PULSE 68
[2016-08-22] MEDS: hydrALAZINE HCL 25 MG TAB PO SCH (05:37)
[2016-08-22 08:00] VITALS: BP 149/81; PULSE 65; RESP 18; TEMP 95.7; O2SAT 100
[2016-08-22 08:33] LABS: AUTOMATED NEUTROPHIL # 7.3 TH/MM3 (1.8-7.7); BASOPHIL # 0.1 TH/MM3 (0-0.2); BASOPHIL % 0.8 % (0.0-2.0); EOSINOPHIL # 0.2 TH/MM3 (0-0.4); EOSINOPHIL % 1.9 % (0.0-4.0); HEMATOCRIT 26.2 % (39.0-51.0); LYMPHOCYTE # 1.1 TH/MM3 (1.0-4.8); MEAN CELL VOLUME 89.8 FL (80.0-100.0); MEAN CORPUSCULAR HEMOGLOBIN 29.8 PG (27.0-34.0); MEAN CORPUSCULAR HGB CONC 33.2 % (32.0-36.0); MONO % 8.6 % (0.0-8.0); NEUT % 76.7 % (16.0-70.0); PLATELET COUNT 333 TH/MM3 (150-450); RED BLOOD COUNT 2.92 MIL/MM3 (4.50-5.90); RED CELL DISTRIBUTION WIDTH 14.1 % (11.6-17.2); WHITE BLOOD COUNT 9.5 TH/MM3 (4.0-11.0)
[2016-08-22 08:35] LABS: HEMO FLAGS DIFF FINAL
[2016-08-22] MEDS ORDERED: LOSARTAN 25 MG TAB PO SCH (09:00)
[2016-08-22] MEDS: amLODIPine BESYLATE 5 MG TAB PO SCH (09:19)
[2016-08-22] MEDS: THIAMINE HCL 100 MG TAB PO SCH (09:19)
[2016-08-22] MEDS: DOCUSATE SODIUM 50 MG/SENNA 8.6 MG TAB PO SCH ×2 (09:19→19:55)
--- NOTE | 2016-08-22 13:27 | HHI.PR ---
Subjective Remarks Patient seen and examined today for follow-up on CVA, GI bleed. Patient is deferring colonoscopy at this time. He did undergo EGD which does show esophagitis. Hemoglobin is stable at this time. He denies any new complaints. He is only asking to have his diet advanced. Objective Vitals Vital Signs Date Time Temp Pulse Resp B/P Pulse Ox O2 Delivery O2 Flow Rate FiO2 08/22/16 08:00 95.7 65 18 149/81 100 08/22/16 05:25 68 163/89 08/21/16 20:00 98.9 76 18 126/71 99 08/21/16 17:05 98.3 66 20 141/77 100 08/21/16 16:46 71 16 150/76 100 08/21/16 16:10 98.0 72 14 113/75 100 08/21/16 16:10 98.0 72 16 113/75 100 Room Air 08/21/16 15:00 98.5 68 15 137/67 99 I/O 08/21/16 08/21/16 08/21/16 08/22/16 08/22/16 08/22/16 07:00 15:00 23:00 07:00 15:00 23:00 Intake Total 860 ml 280 ml Output Total 500 ml 150 ml 460 ml Balance -500 ml -150 ml 860 ml -180 ml Intake Oral 460 ml 280 ml Other 400 ml Output Urine Total 500 ml 150 ml 460 ml # Voids 3 # Bowel Movements 2 0 0 Result Diagram: 08/22/16 0810 08/18/16 0530 Objective Remarks GENERAL: Well-developed cachectic, in no acute distress. alert and orientated HEENT: Head is normocephalic without any lesions or masses noted. Facial features are symmetric. Eyes: Extraocular muscles are intact. Conjunctivae were clear. NECK: Trachea midline no deviation. CARDIAC: Regular rhythm, regular rate. S1/S2 are heard. No murmurs gallops or rubs. LUNGS: Clear to auscultation bilaterally. No wheeze, rhonchi or rales. No use of accessory muscles on inspiration or expiration. ABDOMEN: Soft, nontender. Nondistended. Bowel sounds heard in all 4 quadrants. No organomegaly or masses. Negative rebound, negative guarding EXTREMITIES: No edema, pulses are equal bilaterally. No cyanosis or clubbing NEUROLOGY: Mood and affect appear appropriate. Patient with 3/5 strength of the left upper and lower extremity. Speech is clear Procedures 08/01/2016 Echo The left ventricular systolic function is afeinwqr-sn-jkomvwan reduced with an estimated ejection fraction in the range of 35-40%. Mild to moderate concentric left ventricular hypertrophy. Global hypokinesis possibly more pronounced in the septum. The anterior wall is not well seen. Normal left ventricular size. Structurally normal mitral valve. There is trace mitral valve regurgitation. Intubation, extubation Urinary Catheter: No Vascular Central Line Catheter: No A/P Assessment and Plan Acute gastrointestinal bleeding, stable Patient with significant drop in hemoglobin from 10.3>5.0 GI consultation was requested EGD was performed which did show esophagitis Patient deferring colonoscopy Status post transfusion 2 units packed red blood cells Hemoglobin is stable Continue Protonix 40 mg twice daily We'll need to discuss with GI went to resume aspirin, Plavix Acute ischemic stroke right frontal and parietal lobes/Right ICA occlusion: Continue to hold Plavix 75 and Aspirin 81 mg, secondary to GI bleed, until cleared by GI Continue PT/OT. Severe protein calorie malnutrition: BMI 14.8. Cachexia, Prealbumin albumin 27 Dietitian was consulted recommending regular diet with no salt packets, Ensure Enlive tid, and send milk and yogurt w/meals for added protein and nutrition Hypertension: Amlodipine 10mg daily Discontinue hydralazine 25mg q8hrs Start Coreg 12.5 mg twice daily Monitor and adjust medication as needed Start low-dose lisinopril 5 mg daily Cardiomyopathy in a patient who presented with elevated troponin Echocardiogram with moderate to severe reduced left ventricle function, ejection fraction 3040 percent Cardiology consultation performed who recommended conservative management. Patient poor candidate for invasive cardiac evaluation. Recommending Coreg, TAE inhibitor Abdominal bruits: Aorta ultrasound performed which did not indicate any acute abnormality Chronic kidney disease stage IIIII: Renal functions much improved Avoid nephrotoxins Alcohol abuse S/p CIWA protocol Continue Thiamine Hemorrhoids: Preparation H ointment prn. DVT prophylaxis: Sequential compression devices, discontinue when ambulating Discharge Planning Discharge planning per case management Geovanny Carrillo Aug 22, 2016 13:27
[2016-08-22] MEDS: ATORVASTATIN 40 MG TAB PO SCH (19:54)
[2016-08-22] MEDS: CARVEDILOL 12.5 MG TAB PO SCH (19:54)
[2016-08-22 20:00] VITALS: BP 132/74; PULSE 69; RESP 16; TEMP 97.1; O2SAT 98
[2016-08-22] MEDS ORDERED: PANTOPRAZOLE SOD 40 MG DELAYED RELEASE TAB PO SCH (21:00)
[2016-08-22 23:30] VITALS: BP 146/82; PULSE 63; RESP 16; TEMP 97.4; O2SAT 100
[2016-08-23] MEDS ORDERED: PANTOPRAZOLE INJ 80 MG in SODIUM CHLORIDE 0.9% INJ 35 ML IV ONE (01:15)
[2016-08-23 01:26] LABS: HEMATOCRIT 26.9 % (39.0-51.0); REVIEW FLAG FINAL
[2016-08-23] MEDS: PANTOPRAZOLE INJ 80 MG in SODIUM CHLORIDE 0.9% INJ 100 ML IV SCH ×2 (02:10→11:41)
[2016-08-23 08:00] VITALS: BP 140/77; PULSE 79; RESP 20; TEMP 97.6; O2SAT 95
[2016-08-23] MEDS: LOSARTAN 50 MG TAB PO SCH (09:43)
[2016-08-23] MEDS: THIAMINE HCL 100 MG TAB PO SCH (09:44)
[2016-08-23] MEDS: DOCUSATE SODIUM 50 MG/SENNA 8.6 MG TAB PO SCH ×2 (09:44→20:13)
[2016-08-23] MEDS: amLODIPine BESYLATE 5 MG TAB PO SCH (09:44)
[2016-08-23] MEDS: LISINOPRIL 5 MG TAB PO SCH (09:44)
[2016-08-23] MEDS: CARVEDILOL 12.5 MG TAB PO SCH ×2 (09:44→20:13)
[2016-08-23 11:00] LABS: HEMATOCRIT 25.4 % (39.0-51.0); REVIEW FLAG FINAL
--- NOTE | 2016-08-23 11:12 | HHI.PR ---
Subjective Remarks Patient seen and examined today for follow-up on stroke, GI bleed. Is indicated to nursing staff that patient had melenic stool last evening. Patient did have upper endoscopy performed which did indicate esophagitis. However, patient deferring colonoscopy. Patient did intake minimal prep for colonoscopy prior to deferring. Patient did not have any bowel movement yesterday, first bowel movement was last evening and it was melenic. Nursing staff contacted irrigation flume layer, whose had hemoglobin checked which was stable. Was started on Protonix drip. Objective Vitals Vital Signs Date Time Temp Pulse Resp B/P Pulse Ox O2 Delivery O2 Flow Rate FiO2 08/23/16 08:00 97.6 79 20 140/77 95 08/22/16 23:30 97.4 63 16 146/82 100 08/22/16 20:00 97.1 69 16 132/74 98 I/O 08/22/16 08/22/16 08/22/16 08/23/16 08/23/16 08/23/16 07:00 15:00 23:00 07:00 15:00 23:00 Intake Total 280 ml 240 ml 240 ml 480 ml Output Total 460 ml 675 ml 450 ml Balance -180 ml -435 ml 240 ml 30 ml Intake Oral 280 ml 240 ml 240 ml 480 ml Output Urine Total 460 ml 675 ml 450 ml # Bowel Movements 0 1 1 2 Result Diagram: 08/23/16 0115 Objective Remarks GENERAL: Well-developed cachectic, in no acute distress. alert and orientated HEENT: Head is normocephalic without any lesions or masses noted. Facial features are symmetric. Eyes: Extraocular muscles are intact. Conjunctivae were clear. NECK: Trachea midline no deviation. CARDIAC: Regular rhythm, regular rate. S1/S2 are heard. No murmurs gallops or rubs. LUNGS: Clear to auscultation bilaterally. No wheeze, rhonchi or rales. No use of accessory muscles on inspiration or expiration. ABDOMEN: Soft, nontender. Nondistended. Bowel sounds heard in all 4 quadrants. No organomegaly or masses. Negative rebound, negative guarding EXTREMITIES: No edema, pulses are equal bilaterally. No cyanosis or clubbing NEUROLOGY: Mood and affect appear appropriate. Patient with 3/5 strength of the left upper and lower extremity. Speech is clear Procedures 08/01/2016 Echo The left ventricular systolic function is ifatekhf-bd-[id number] reduced with an estimated ejection fraction in the range of 35-40%. Mild to moderate concentric left ventricular hypertrophy. Global hypokinesis possibly more pronounced in the septum. The anterior wall is not well seen. Normal left ventricular size. Structurally normal mitral valve. There is trace mitral valve regurgitation. Intubation, extubation Urinary Catheter: No Vascular Central Line Catheter: No A/P Assessment and Plan Acute gastrointestinal bleeding, Patient with first bowel movement after having EGD performed, stool still dark in color Patient with significant drop in hemoglobin from 10.3>5.0 GI consultation was requested EGD was performed which did show esophagitis Patient deferring colonoscopy Status post transfusion 2 units packed red blood cells Hemoglobin is stable Patient was started on Protonix drip by Legal Activity Adjudicator Did discuss with GI, who indicated that hemoglobin remains stable may resume aspirin and Plavix Acute ischemic stroke right frontal and parietal lobes/Right ICA occlusion: Okay to resume Plavix 75 and Aspirin 81 mg, per GI if hemoglobin stable Continue PT/OT. Severe protein calorie malnutrition: BMI 14.8. Cachexia, Prealbumin albumin 27 Dietitian was consulted recommending regular diet with no salt packets, Ensure Enlive tid, and send milk and yogurt w/meals for added protein and nutrition Hypertension: Amlodipine 10mg daily Coreg 12.5 mg twice daily lisinopril 5 mg daily Monitor and adjust medication as needed Cardiomyopathy in a patient who presented with elevated troponin Echocardiogram with moderate to severe reduced left ventricle function, ejection fraction 3040 percent Cardiology consultation performed who recommended conservative management. Patient poor candidate for invasive cardiac evaluation. Recommending Coreg, TAE inhibitor Abdominal bruits: Aorta ultrasound performed which did not indicate any acute abnormality Chronic kidney disease stage IIIII: Renal functions much improved Avoid nephrotoxins Alcohol abuse S/p CIWA protocol Continue Thiamine Hemorrhoids: Preparation H ointment prn. DVT prophylaxis: Sequential compression devices, discontinue when ambulating Discharge Planning Discharge planning per case management Geovanny Carrillo Aug 23, 2016 11:12
[2016-08-23 16:00] VITALS: BP 128/75; PULSE 96; RESP 18; TEMP 98.1; O2SAT 98
[2016-08-23 20:00] VITALS: BP 95/65; PULSE 97; RESP 16; TEMP 98.3; O2SAT 96
[2016-08-23] MEDS: ATORVASTATIN 40 MG TAB PO SCH (20:12)
[2016-08-23] MEDS: PANTOPRAZOLE SOD 40 MG DELAYED RELEASE TAB PO SCH (20:13)
[2016-08-24 07:24] LABS: HEMATOCRIT 24.1 % (39.0-51.0); REVIEW FLAG FINAL
[2016-08-24 08:00] VITALS: BP 136/66; PULSE 56; RESP 18; TEMP 97; O2SAT 100
[2016-08-24] MEDS: amLODIPine BESYLATE 5 MG TAB PO SCH (08:27)
[2016-08-24] MEDS: DOCUSATE SODIUM 50 MG/SENNA 8.6 MG TAB PO SCH ×2 (08:28→20:21)
[2016-08-24] MEDS: CLOPIDOGREL 75 MG TAB PO SCH (08:28)
[2016-08-24] MEDS: ASPIRIN EC 81 MG TABEC PO SCH (08:28)
[2016-08-24] MEDS: LISINOPRIL 5 MG TAB PO SCH (08:28)
[2016-08-24] MEDS: PANTOPRAZOLE SOD 40 MG DELAYED RELEASE TAB PO SCH ×2 (08:28→20:21)
[2016-08-24] MEDS: LOSARTAN 50 MG TAB PO SCH (08:28)
[2016-08-24] MEDS: CARVEDILOL 12.5 MG TAB PO SCH ×2 (08:28→20:21)
[2016-08-24] MEDS: THIAMINE HCL 100 MG TAB PO SCH (08:28)
--- NOTE | 2016-08-24 10:15 | HHI.PR ---
Subjective Remarks Patient seen and examined today for follow-up on, GI bleed. Patient states that he is doing well. He is asking if he can get into a wheelchair. He indicates that bowel movement yesterday was brown in color that the dark stool is improving. Objective Vitals Vital Signs Date Time Temp Pulse Resp B/P Pulse Ox O2 Delivery O2 Flow Rate FiO2 08/23/16 20:00 98.3 97 16 95/65 96 08/23/16 16:00 98.1 96 18 128/75 98 I/O 08/23/16 08/23/16 08/23/16 08/24/16 08/24/16 08/24/16 07:00 15:00 23:00 07:00 15:00 23:00 Intake Total 480 ml 480 ml 480 ml Output Total 450 ml 200 ml 300 ml Balance 30 ml 280 ml 180 ml Intake Oral 480 ml 480 ml 480 ml Output Urine Total 450 ml 200 ml 300 ml # Bowel Movements 2 1 0 1 Result Diagram: 08/24/16 0655 Objective Remarks GENERAL: Well-developed cachectic, in no acute distress. alert and orientated HEENT: Head is normocephalic without any lesions or masses noted. Facial features are symmetric. Eyes: Extraocular muscles are intact. Conjunctivae were clear. NECK: Trachea midline no deviation. CARDIAC: Regular rhythm, regular rate. S1/S2 are heard. No murmurs gallops or rubs. LUNGS: Clear to auscultation bilaterally. No wheeze, rhonchi or rales. No use of accessory muscles on inspiration or expiration. ABDOMEN: Soft, nontender. Nondistended. Bowel sounds heard in all 4 quadrants. No organomegaly or masses. Negative rebound, negative guarding EXTREMITIES: No edema, pulses are equal bilaterally. No cyanosis or clubbing NEUROLOGY: Mood and affect appear appropriate. Patient with 3/5 strength of the left upper and lower extremity. Speech is clear Procedures 08/01/2016 Echo The left ventricular systolic function is flllhudk-lt-gubqesdg reduced with an estimated ejection fraction in the range of 35-40%. Mild to moderate concentric left ventricular hypertrophy. Global hypokinesis possibly more pronounced in the septum. The anterior wall is not well seen. Normal left ventricular size. Structurally normal mitral valve. There is trace mitral valve regurgitation. Intubation, extubation Urinary Catheter: No Vascular Central Line Catheter: No A/P Assessment and Plan Acute gastrointestinal bleeding, Patient with first bowel movement after having EGD performed, stool still dark in color Patient with significant drop in hemoglobin from 10.3>5.0 GI consultation was requested EGD was performed which did show esophagitis Patient deferring colonoscopy Status post transfusion 2 units packed red blood cells Hemoglobin is stable Did discuss with GI, who indicated that hemoglobin remains stable may resume aspirin and Plavix Acute ischemic stroke right frontal and parietal lobes/Right ICA occlusion: Okay to resume Plavix 75 and Aspirin 81 mg, per GI if hemoglobin stable Continue PT/OT. Severe protein calorie malnutrition: BMI 14.8. Cachexia, Prealbumin albumin 27 Dietitian was consulted recommending regular diet with no salt packets, Ensure Enlive tid, and send milk and yogurt w/meals for added protein and nutrition Hypertension: Amlodipine 10mg daily Coreg 12.5 mg twice daily lisinopril 5 mg daily Monitor and adjust medication as needed Cardiomyopathy in a patient who presented with elevated troponin Echocardiogram with moderate to severe reduced left ventricle function, ejection fraction 3040 percent Cardiology consultation performed who recommended conservative management. Patient poor candidate for invasive cardiac evaluation. Recommending Coreg, TAE inhibitor Abdominal bruits: Aorta ultrasound performed which did not indicate any acute abnormality Chronic kidney disease stage IIIII: Renal functions much improved Avoid nephrotoxins Alcohol abuse S/p CIWA protocol Continue Thiamine Hemorrhoids: Preparation H ointment prn. DVT prophylaxis: Sequential compression devices, discontinue when ambulating Discharge Planning Discharge planning per case management Geovanny Carrillo Aug 24, 2016 10:15
[2016-08-24 20:00] VITALS: BP 136/73; PULSE 66; RESP 20; TEMP 97.3; O2SAT 99
[2016-08-24] MEDS: ATORVASTATIN 40 MG TAB PO SCH (20:21)
[2016-08-25] VITALS (9 sets, daily range): BP systolic 115–160; BP diastolic 54–80; PULSE 55–75; RESP 15–20; TEMP 96.6–98.3; O2SAT 94–100
[2016-08-25] MEDS: ASPIRIN EC 81 MG TABEC PO SCH (07:38)
[2016-08-25] MEDS: LISINOPRIL 5 MG TAB PO SCH (07:38)
[2016-08-25] MEDS: CARVEDILOL 12.5 MG TAB PO SCH ×2 (07:39→21:03)
[2016-08-25] MEDS: DOCUSATE SODIUM 50 MG/SENNA 8.6 MG TAB PO SCH ×2 (07:39→21:03)
[2016-08-25] MEDS: amLODIPine BESYLATE 5 MG TAB PO SCH (07:39)
[2016-08-25] MEDS: THIAMINE HCL 100 MG TAB PO SCH (07:39)
[2016-08-25] MEDS: CLOPIDOGREL 75 MG TAB PO SCH (07:39)
[2016-08-25] MEDS: PANTOPRAZOLE SOD 40 MG DELAYED RELEASE TAB PO SCH ×2 (07:40→21:03)
[2016-08-25] MEDS: LOSARTAN 50 MG TAB PO SCH (07:40)
[2016-08-25 07:49] LABS: AUTOMATED NEUTROPHIL # 7.5 TH/MM3 (1.8-7.7); BASOPHIL # 0.1 TH/MM3 (0-0.2); BASOPHIL % 0.8 % (0.0-2.0); EOSINOPHIL # 0.6 TH/MM3 (0-0.4); EOSINOPHIL % 5.4 % (0.0-4.0); HEMATOCRIT 23.1 % (39.0-51.0); HEMO FLAGS DIFF FINAL; LYMPH % 14.5 % (9.0-44.0); LYMPHOCYTE # 1.5 TH/MM3 (1.0-4.8); MEAN CELL VOLUME 89.8 FL (80.0-100.0); MEAN CORPUSCULAR HEMOGLOBIN 29.6 PG (27.0-34.0); MONO % 7.2 % (0.0-8.0); NEUT % 72.1 % (16.0-70.0); PLATELET COUNT 322 TH/MM3 (150-450); RED BLOOD COUNT 2.58 MIL/MM3 (4.50-5.90); RED CELL DISTRIBUTION WIDTH 14.8 % (11.6-17.2); WHITE BLOOD COUNT 10.5 TH/MM3 (4.0-11.0)
[2016-08-25] MEDS ORDERED: SODIUM CHLOR 0.9% 250 ML INJ 250 ML IV ONE (09:30)
[2016-08-25] MEDS ORDERED: ACETAMINOPHEN 325 MG TAB PO PRN (09:30)
[2016-08-25] MEDS ORDERED: diphenhydrAMINE HCL 25 MG CAP PO PRN (09:30)
[2016-08-25] MEDS: ATORVASTATIN 40 MG TAB PO SCH (21:03)
[2016-08-25] MEDS: cloNIDine HCL 0.1 MG TAB PO PRN (21:03)
[2016-08-26 05:58] VITALS: BP 155/62; PULSE 57
[2016-08-26 07:35] LABS: AUTOMATED NEUTROPHIL # 5.8 TH/MM3 (1.8-7.7); BASOPHIL # 0.1 TH/MM3 (0-0.2); BASOPHIL % 0.7 % (0.0-2.0); EOSINOPHIL # 0.5 TH/MM3 (0-0.4); EOSINOPHIL % 5.6 % (0.0-4.0); HEMATOCRIT 30.4 % (39.0-51.0); HEMO FLAGS DIFF FINAL; LYMPH % 17.6 % (9.0-44.0); LYMPHOCYTE # 1.5 TH/MM3 (1.0-4.8); MEAN CORPUSCULAR HEMOGLOBIN 27.4 PG (27.0-34.0); MEAN CORPUSCULAR HGB CONC 31.4 % (32.0-36.0); MONO % 9.2 % (0.0-8.0); NEUT % 66.9 % (16.0-70.0); PLATELET COUNT 311 TH/MM3 (150-450); RED BLOOD COUNT 3.48 MIL/MM3 (4.50-5.90); RED CELL DISTRIBUTION WIDTH 18.6 % (11.6-17.2); WHITE BLOOD COUNT 8.7 TH/MM3 (4.0-11.0)
[2016-08-26 07:44] LABS: MEAN CELL VOLUME 87.4 FL (80.0-100.0)
[2016-08-26 08:00] VITALS: BP 153/74; PULSE 56; RESP 18; TEMP 98.2; O2SAT 100
[2016-08-26] MEDS: ASPIRIN EC 81 MG TABEC PO SCH (09:16)
[2016-08-26] MEDS: LISINOPRIL 5 MG TAB PO SCH (09:16)
[2016-08-26] MEDS: CLOPIDOGREL 75 MG TAB PO SCH (09:16)
[2016-08-26] MEDS: LOSARTAN 50 MG TAB PO SCH (09:17)
[2016-08-26] MEDS: amLODIPine BESYLATE 5 MG TAB PO SCH (09:17)
[2016-08-26] MEDS: DOCUSATE SODIUM 50 MG/SENNA 8.6 MG TAB PO SCH (09:17)
[2016-08-26] MEDS: THIAMINE HCL 100 MG TAB PO SCH (09:17)
[2016-08-26] MEDS: PANTOPRAZOLE SOD 40 MG DELAYED RELEASE TAB PO SCH (09:18)
[2016-08-26] MEDS: CARVEDILOL 12.5 MG TAB PO SCH (09:18)
--- NOTE | 2016-08-26 09:50 | HHI.PR ---
Subjective Remarks Patient seen and examined today for follow-up on CVA, GI bleed. Patient did receive transfusion 1 unit of packed red blood cells yesterday due to slow trending down of hemoglobin. Patient did have upper endoscopy performed which did show esophagitis. However he deferred colonoscopy. At the present time, I discussed with patient again the need to perform colonoscopy. He is deferring it still. Objective Vitals Vital Signs Date Time Temp Pulse Resp B/P Pulse Ox O2 Delivery O2 Flow Rate FiO2 08/26/16 08:00 98.2 56 18 153/74 100 08/26/16 05:58 57 155/62 08/25/16 20:00 97.3 61 20 160/70 100 08/25/16 16:30 97.5 69 18 148/69 08/25/16 16:00 97.6 75 19 127/80 94 08/25/16 15:20 98.0 55 18 128/58 99 08/25/16 14:20 97.6 61 18 135/64 08/25/16 13:50 96.6 55 15 115/54 08/25/16 13:35 98.3 58 17 115/54 99 08/25/16 13:16 98.3 58 17 115/54 99 08/25/16 09:50 96.6 60 16 152/72 100 I/O 08/25/16 08/25/16 08/25/16 08/26/16 08/26/16 08/26/16 07:00 15:00 23:00 07:00 15:00 23:00 Intake Total 240 ml 100 ml 252 ml 240 ml Output Total 900 ml 500 ml 800 ml 500 ml Balance -660 ml -400 ml -548 ml -260 ml Intake Oral 240 ml 100 ml 240 ml Packed Cells 252 ml Output Urine Total 900 ml 500 ml 800 ml 500 ml # Voids 1 # Bowel Movements 0 2 4 1 Result Diagram: 08/26/16 0701 Objective Remarks GENERAL: Well-developed cachectic, in no acute distress. alert and orientated HEENT: Head is normocephalic without any lesions or masses noted. Facial features are symmetric. Eyes: Extraocular muscles are intact. Conjunctivae were clear. NECK: Trachea midline no deviation. CARDIAC: Regular rhythm, regular rate. S1/S2 are heard. No murmurs gallops or rubs. LUNGS: Clear to auscultation bilaterally. No wheeze, rhonchi or rales. No use of accessory muscles on inspiration or expiration. ABDOMEN: Soft, nontender. Nondistended. Bowel sounds heard in all 4 quadrants. No organomegaly or masses. Negative rebound, negative guarding EXTREMITIES: No edema, pulses are equal bilaterally. No cyanosis or clubbing NEUROLOGY: Mood and affect appear appropriate. Patient with 3/5 strength of the left upper and lower extremity. Speech is clear Procedures 08/01/2016 Echo The left ventricular systolic function is wcmzuqjt-zz-qgdxexts reduced with an estimated ejection fraction in the range of 35-40%. Mild to moderate concentric left ventricular hypertrophy. Global hypokinesis possibly more pronounced in the septum. The anterior wall is not well seen. Normal left ventricular size. Structurally normal mitral valve. There is trace mitral valve regurgitation. Intubation, extubation Urinary Catheter: No Vascular Central Line Catheter: No A/P Assessment and Plan Acute gastrointestinal bleeding, Patient with first bowel movement after having EGD performed, stool still dark in color GI consultation was performed EGD was performed which did show esophagitis Patient still deferring colonoscopy Status post transfusion 3 units packed red blood cells Continue monitor hemoglobin for stability Did discuss with GI, who indicated that hemoglobin remains stable may resume aspirin and Plavix Acute ischemic stroke right frontal and parietal lobes/Right ICA occlusion: Resume Plavix 75 and Aspirin 81 mg, per GI Continue PT/OT. Severe protein calorie malnutrition: BMI 14.8. Cachexia, Prealbumin albumin 27 Dietitian was consulted recommending regular diet with no salt packets, Ensure Enlive tid, and send milk and yogurt w/meals for added protein and nutrition Hypertension: Amlodipine 10mg daily Coreg 12.5 mg twice daily lisinopril 10 mg daily Monitor and adjust medication as needed Cardiomyopathy in a patient who presented with elevated troponin Echocardiogram with moderate to severe reduced left ventricle function, ejection fraction 3040 percent Cardiology consultation performed who recommended conservative management. Patient poor candidate for invasive cardiac evaluation. Recommending Coreg, TAE inhibitor Abdominal bruits: Aorta ultrasound performed which did not indicate any acute abnormality Chronic kidney disease stage IIIII: Renal functions much improved Avoid nephrotoxins Alcohol abuse S/p CIWA protocol Continue Thiamine Hemorrhoids: Preparation H ointment prn. DVT prophylaxis: Sequential compression devices, discontinue when ambulating Discharge Planning Discharge planning per case management Geovanny Carrillo Aug 26, 2016 09:49
--- NOTE | 2016-08-26 19:49 | PD.AMA ---
Against Medical Advice Note Discharge Disposition: Against Medical Advice Pt Condition on Discharge: Fair AMA Statement Patient Joon Porter has decided to leave the hospital against medical advice. This patient has the capacity to refuse care and understands the risks of leaving, including permanent disability and/or , and has had an opportunity to ask questions about his condition. The patient has been informed that he may return for care at any time, and follow up has been arranged/ advised. Joyce Gonzalez Aug 26, 2016 19:48
--- NOTE | 2016-08-27 07:17 | HHI.DS ---
Discharge Summary Admission Date Jul 31, 2016 at 08:00 Discharge Date: Aug 26, 2016 Admitting Diagnosis kam, dehydration, renal failure, chronic elevation troponin (1) GI bleed ICD Code: K92.2 (2) Hypertension ICD Code: I10 (3) Cardiomyopathy ICD Code: I42.9 (4) CVA (cerebral vascular accident) ICD Code: I63.9 Procedures 08/01/2016 Echo The left ventricular systolic function is hwuwuuow-vu-[id number] reduced with an estimated ejection fraction in the range of 35-40%. Mild to moderate concentric left ventricular hypertrophy. Global hypokinesis possibly more pronounced in the septum. The anterior wall is not well seen. Normal left ventricular size. Structurally normal mitral valve. There is trace mitral valve regurgitation. Intubation, extubation Brief History - From Admission This is a 56-year-old Homeless male with a PMH of Anxiety, Depression, HTN, Hyperlipidemia, Alcohol Abuse and Tobacco Abuse who was brought to the ER by EMS secondary to episode of dizziness and hypotension. Seen in ER on thr morning of 07/29/16 for c/o headache and elevated BP 205/96, HR 78, s/p treatment in ER w/ successful control of BP and d/c'd w/ Norvasc and Lisinopril , has not filled prescriptions yet. Today, was out walking and felt sudden onset of dizziness. Per EMS, BP 80's systolic. On arrival, BP 89/54, HR 67, O2 sat 98% on RA, Afebrile. S/p IVF w/ improvement in BP. CBC unremarkable. Creatinine 2.25, previously 1.71 on 07/29/16. Troponin 0.13, previously 0.55 on 06/07/16. CPK 331. CXR with no acute findings. CBC/BMP: 08/26/16 0701 Significant Findings Laboratory Tests Test 08/25/16 08/26/16 06:50 07:01 Red Blood Count 2.58 MIL/MM3 3.48 MIL/MM3 (4.50-5.90) (4.50-5.90) Hemoglobin 7.6 GM/DL 9.5 GM/DL (13.0-17.0) (13.0-17.0) Hematocrit 23.1 % 30.4 % (39.0-51.0) (39.0-51.0) Neutrophils (%) (Auto) 72.1 % (16.0-70.0) Eosinophils (%) (Auto) 5.4 % (0.0-4.0) 5.6 % (0.0-4.0) Eosinophils # (Auto) 0.6 TH/MM3 0.5 TH/MM3 (0-0.4) (0-0.4) Mean Corpuscular Hemoglobin 31.4 % Concent (32.0-36.0) Red Cell Distribution Width 18.6 % (11.6-17.2) Monocytes (%) (Auto) 9.2 % (0.0-8.0) Imaging Last Impressions Aorta Ultrasound 08/18/16 0000 Signed Impressions: Service Date/Time: Thursday, August 18, 2016 08:31 - CONCLUSION: 1. The abdominal aorta is normal in caliber. 2. There is mild atherosclerotic plaquing. 3. The renal arteries were not visualized due to overlying bowel gas. Socrates Beal MD Head CT 08/05/16 0000 Signed Impressions: Service Date/Time: Friday, August 05, 2016 20:28 - CONCLUSION: 1. No acute abnormality is seen. 2. There is encephalomalacia in the right frontal and parietal lobes. 3. Bilateral maxillary sinus disease. Lacho Dey MD Lower Extremity Ultrasound 08/04/16 0000 Signed Impressions: Service Date/Time: Thursday, August 04, 2016 11:25 - CONCLUSION: No evidence of deep venous thrombosis within the left lower extremity. Joon Holguin MD Ankle X-Ray 08/04/16 0000 Signed Impressions: Service Date/Time: Thursday, August 04, 2016 10:48 - CONCLUSION: Negative for fracture. Galen Beal MD FACR Neck Magnetic Resonance Angiography 07/31/16 0000 Signed Impressions: Service Date/Time: Sunday, July 31, 2016 17:46 - CONCLUSION: Total occlusion of the right internal carotid artery. Slightly less than 50%% eccentric stenosis of the proximal left internal carotid artery. High-grade eccentric stenosis of the left subclavian artery proximal to a diminutive left vertebral artery. Lacho Morel MD Head Magnetic Resonance Angiography 07/31/16 0000 Signed Impressions: Service Date/Time: Sunday, July 31, 2016 17:46 - CONCLUSION: 1. Occlusion of the right internal carotid artery. 2. Multiple missing vessels distal to the right MCA trifurcation consistent with occlusion. Morales Miller MD Chest X-Ray 07/31/16 Signed Impressions: Service Date/Time: Sunday, July 31, 2016 07:49 - CONCLUSION: 1. ETT in good position. 2. Interval development of diffuse bilateral airspace disease with small right and ndyhy-pd-jhorpywy left pleural effusions. Differential considerations include pulmonary edema versus diffuse infection versus developing ARDS. Doug Valencia MD Brain MRI 07/31/16 Signed Impressions: Service Date/Time: Sunday, July 31, 2016 17:46 - CONCLUSION: 1. Multiple areas of restricted diffusion involving the right frontal and parietal lobes consistent with areas of acute to subacute infarction. 2. No evidence of hemorrhage, mass effect or midline shift. 3. Old area of encephalomalacia involving the right inferior frontal lobe. Morales Miller MD PE at Discharge GENERAL: Well-developed cachectic, in no acute distress. alert and orientated HEENT: Head is normocephalic without any lesions or masses noted. Facial features are symmetric. Eyes: Extraocular muscles are intact. Conjunctivae were clear. NECK: Trachea midline no deviation. CARDIAC: Regular rhythm, regular rate. S1/S2 are heard. No murmurs gallops or rubs. LUNGS: Clear to auscultation bilaterally. No wheeze, rhonchi or rales. No use of accessory muscles on inspiration or expiration. ABDOMEN: Soft, nontender. Nondistended. Bowel sounds heard in all 4 quadrants. No organomegaly or masses. Negative rebound, negative guarding EXTREMITIES: No edema, pulses are equal bilaterally. No cyanosis or clubbing NEUROLOGY: Mood and affect appear appropriate. Patient with 3/5 strength of the left upper and lower extremity. Speech is clear Transfer Summary The patient is a 56-year-old male with past medical history of ETOH abuse, tobacco use, hypertension, hyperlipidemia, depression, anxiety disorder, who was admitted to [facility] under hospitalist service on July 29 for acute renal failure, dehydration, alcohol withdrawal. The patient was found to have creatinine of 2.25 with estimated GFR 30 and troponin of 0.13. The patient was admitted to the medical floor and placed on IV fluids normal saline at 125 mL an hour and his renal function was improving with creatinine down to 1.29. Halicat was called as the patient was found hypoxic in respiratory distress and with altered mental status. He was on CIWA protocol and was given Ativan 2 mg IV at 07:15 this morning. Upon arrival to [facility] the patient was intubated immediately by myself and placed on full mechanical ventilation. Diprivan infusion was started for sedation. A chest x-ray post intubation showed pulmonary vascular congestion. 08/01 Patient is sedated with Fentanyl and intubated. MRI brain revealed right frontal/parietal CVA acute to subacute. Diffuse prior right-sided inferior frontal encephalomalacia. Right internal carotid artery Occluded. Left ICA 50 % Occluded. Left External Carotid Occluded. renal function is worse with Cr: 1.67 from 1.42. Trop 2,45 this morning. 08/02. Remains intubated sedated. On sedation hold wakes up and follows commands with right upper and lower extremity. Son updated at the bedside 08/03: Patient was extubated yesterday tolerated well. Speech appears normal. Persistent left hemiplegia. Started on Cardene infusion yesterday for uncontrolled hypertension. Patient should be able to take by mouth Coreg and increased her dose to 12.5 twice a day and have added lisinopril 10 mg twice a day. Along with IV when necessary hydralazine and labetalol patient should be able to come off the Cardene infusion today Hospital Course History 65-year-old homeless male with past medical history of anxiety, depression, hypertension, hyponatremia, alcohol abuse, tobacco abuse. He presented to the hospital on 07/29/16. At that time patient presented with dizziness and hypotension. Patient was previously seen in the ER on 07/29/16 because of headache and elevated pressure of 205/96. Patient was treated in the emergency department in discharged with Norvasc and lisinopril with improved blood pressure. Patient was walking out of the emergency department and felt suddenly dizzy and he was brought back in and was found to have blood pressure 89/54. Workup indicated patient had acute renal failure, elevated troponin. Patient was admitted to hospital for further management at that time. Patient was started on CIWA protocol for concern of alcohol withdrawal. Patient developed respiratory distress with hypoxia, change in mental status on 07/31/16 in which her local care was consulted and patient was immediately intubated and placed on mechanical ventilation, he was subsequently extubated on 08/02/16. Patient had neurological workup performed which does indicate restricted diffusion of the right frontal and parietal lobes consistent with acute to subacute infarct. Further workup did indicate completely excluded right ICA. Neurology was consulted and made recommendations. Is recommended patient continue on aspirin and Plavix for stroke prevention. Cardiovascular surgery was consulted for excluded ICA. As indicated that carotid artery occlusion is not a surgical entity cannot be reopened, recannulized and it anyway treated. In regards to the patient's elevated troponin. Cardiology evaluated the patient and indicated that the levels could've been elevated due to the renal insufficiency. Patient did have a myocardial perfusion scan done last month with did show normal perfusion of the left ventricle. Patient did have echocardiogram performed which did indicate ejection fraction 30-35% with grade 2 diastolic dysfunction. Moderate size left pleural effusion. Repeat echocardiogram indicate ejection fraction 3540 percent with global hypokinesis more pronounced in the septum. Toll Operator recommended conservative management with Coreg and TAE inhibitor with daily aspirin. Patient is a poor candidate for invasive cardiac evaluation due to acute respiratory failure and acute CVA, poor medical compliance. Indicating that his cardiomyopathy is predominantly nonischemic in origin. Patient was clinically stable with left upper and left lower weakness. PT/OT/ST evaluations were performed and patient was ambulating with hemiwalker. Patient was then transferred to [facility] for continued management until safe discharge. Patient developed acute anemia with hemoglobin 5.0 on 08/18/16 with melenic stools. Patient was transferred to medical floor and transfused 2 units of packed red blood cells. GI consultation was performed and patient did undergo EGD with findings of esophagitis. Patient was continued on Protonix. Colonoscopy was requested also by toggle press folder and feeder, however patient deferred procedure. Hemoglobin was monitored on a regular basis and continued to drop on a daily basis. Patient did undergo transfusion 1 unit of packed red blood cell on 08/25/16. Again colonoscopy was readdressed with the patient. He was still deferring procedure. On 08/26/16 nurse notified me at approximately 1920 that the patient was dressed and was going to leave the hospital. It was relayed to me that the patient had contacted his family who plan to come pick him up and leave the hospital AGAINST MEDICAL ADVICE. I spoke with the patient on the phone and try to convince him to stay in the hospital until we can arrange a safe discharge, notified him that he is on multiple medications that without them could be detrimental to his existence. After prolonged conversation with the patient he is still adamant that he is going to leave the hospital either by his family picking him up or by cab despite multiple attempts to persuade the patient to stay in the hospital until a safe discharge can be arranged. The patient did leave the hospital AGAINST MEDICAL ADVICE on 08/26/16 at 1940. Pt Condition on Discharge: Guarded Discharge Disposition: Discharge Home Discharge Time: > 30 minutes Discharge Instructions DIET: Follow Instructions for: Heart Healthy Diet Activities you can perform: Weight Bearing as Regina Activities to Avoid: Driving Geovanny Carrillo Aug 27, 2016 07:17
[2016-08-27] MEDS ORDERED: LISINOPRIL 5 MG TAB PO SCH (09:00)
== END 2016-08-26 19:40 | disposition left against medical advice (07) | DRG 64 ==
LOC: NEPE 18:27 → NEDA 21:07 → HCIS 07-30 00:23 → HIMN 07-31 07:30 → OBSVTOIN 07-31 08:00 → HOCA 08-03 16:00 → PH5A 08-14 16:56 → PH3A 08-18 11:34 → PH5A 08-22 22:03 → PH3A 08-25 11:51 → PH5A 08-25 16:48
PROVIDERS: ADMIT Internal Medicine; ATTEND Internal Medicine
PROC: 3E0F7GC Introduction of Other Therapeutic Substance into Respiratory Tract, Via Natural or Artificial Opening (ICD-10-PCS; principal; 2016-07-31)
PROC: 0BH17EZ Insertion of Endotracheal Airway into Trachea, Via Natural or Artificial Opening (ICD-10-PCS; 2016-07-31)
PROC: 0T9B70Z Drainage of Bladder with Drainage Device, Via Natural or Artificial Opening (ICD-10-PCS; 2016-07-31)
PROC: 5A1945Z Respiratory Ventilation, 24-96 Consecutive Hours (ICD-10-PCS; 2016-07-31)
PROC: 30233N1 Transfusion of Nonautologous Red Blood Cells into Peripheral Vein, Percutaneous Approach (ICD-10-PCS; 2016-08-18)
PROC: 0DB58ZX Excision of Esophagus, Via Natural or Artificial Opening Endoscopic, Diagnostic (ICD-10-PCS; 2016-08-21)
DX: I63.9 Cerebral infarction, unspecified (principal); J96.01 Acute respiratory failure with hypoxia; E43 Unspecified severe protein-calorie malnutrition; G93.40 Encephalopathy, unspecified; N17.9 Acute kidney failure, unspecified; I95.9 Hypotension, unspecified; I13.0 Hypertensive heart and chronic kidney disease with heart failure and stage 1 through stage 4 chronic kidney disease, or unspecified chronic kidney disease; I42.0 Dilated cardiomyopathy; G93.89 Other specified disorders of brain; I50.9 Heart failure, unspecified; G81.94 Hemiplegia, unspecified affecting left nondominant side; F10.239 Alcohol dependence with withdrawal, unspecified; K92.1 Melena; Z68.1 Body mass index [BMI] 19.9 or less, adult; I08.1 Rheumatic disorders of both mitral and tricuspid valves; K20.9 Esophagitis, unspecified; E86.0 Dehydration; E78.2 Mixed hyperlipidemia; I70.209 Unspecified atherosclerosis of native arteries of extremities, unspecified extremity; M19.90 Unspecified osteoarthritis, unspecified site; F41.9 Anxiety disorder, unspecified; F32.9 Major depressive disorder, single episode, unspecified; N18.2 Chronic kidney disease, stage 2 (mild); F17.210 Nicotine dependence, cigarettes, uncomplicated; E87.6 Hypokalemia; I65.23 Occlusion and stenosis of bilateral carotid arteries; D64.9 Anemia, unspecified; I70.8 Atherosclerosis of other arteries; I77.1 Stricture of artery; J44.9 Chronic obstructive pulmonary disease, unspecified; Z83.3 Family history of diabetes mellitus; Z59.0 Homelessness; Z80.0 Family history of malignant neoplasm of digestive organs; Z53.29 Procedure and treatment not carried out because of patient's decision for other reasons
CPT/HCPCS: 31500; 36430; 36600; 70450; 70544; 70548; 70551; 71010; 73600; 76775; 80048; 80053; 80061; 81001; 82272; 82550; 82552; 82805; 82948; 83036; 83735; 84100; 84132; 84134; 84484; 85014; 85018; 85025; 85610; 85730; 86850; 86900; 86901; 86920; 87070; 87086; 87205; 87493; 87641; 88305; 93005; 93306; 93308; 93971; 94002; 94003; 94150; 94640; 94664; 95819; 96365; A9579; C9113; G0378; J0360; J1644; J1940; J2060; J2270; J2405; J2543; J3010; J3480; J7030; J7050; P9016

== ENCOUNTER 2016-08-27 08:28 | Emergency (ER) | payer OTHER ==
[~2016-08-27] VITALS: Ht 177.8 cm; Wt 56.5 kg
[2016-08-27 08:29] VITALS: BP 129/62; PULSE 75; RESP 15; TEMP 98.2; O2SAT 98
[2016-08-27 08:39] VITALS: BP 194/77; PULSE 77; RESP 24; O2SAT 99
[2016-08-27 08:56] VITALS: BP 164/67; PULSE 74; RESP 16; O2SAT 99
--- NOTE | 2016-08-27 09:05 | PD ---
HPI Chief Complaint: Dizziness Time Seen by Provider: 08:41 Travel History International Travel<30 days: No Contact w/Intl Traveler<30days: No Traveled to known affect area: No History of Present Illness HPI This patient was in the hospital for a month and signed out AGAINST MEDICAL ADVICE 12 hours ago. His son brings him back to the emergency room this morning. He is a complaint of lightheadedness. He had a stroke recently and has prominent left-sided weakness. He denies headache or syncope or chest pain. He is an alcoholic but has not had alcohol in a month. Current blood pressure 164/76. He is a dark colored decubitus on the back of his left heel from his lengthy hospitalization. Symptoms severity is moderate. He had a GI bleed and was transfused the hospital but has repeatedly refused colonoscopy and did have endoscopy. Severity is moderate. No alleviating factors. Duration one week PFSH Past Medical History Hx Anticoagulant Therapy: Yes (81mg asa) Arthritis: Yes (GENERALIZED) Autoimmune Disease: No Blood Disorders: No Anxiety: Yes Depression: Yes Heart Rhythm Problems: No Cancer: No Cardiovascular Problems: Yes High Cholesterol: Yes Cerebrovascular Accident: Yes (CVA JULY 2016) Diabetes: No Diminished Hearing: No Endocrine: No Gastrointestinal Disorders: No Genitourinary: No Hypertension: Yes Immune Disorder: No Implanted Vascular Access Dvce: Yes Musculoskeletal: Yes Neurologic: No Psychiatric: Yes Reproductive: No Respiratory: Yes Immunizations Current: No Thyroid Disease: No Influenza Vaccination: Yes Past Surgical History 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13) Thoracic Surgery: Yes (CHEST TUBE INSERTION RIGHT LUNG-07/01/08) Other Surgery: Yes (RIGHT ANKLE, 8 SCREWS AND PLATE) Social History Alcohol Use: No Tobacco Use: Yes (1PPD) Substance Use: No Allergies-Medications (Allergen,Severity, Reaction): Coded Allergies: No Known Allergies (Verified , 08/27/16) Reported Meds & Prescriptions Reported Meds & Active Scripts Active Norvasc (Amlodipine Besylate) 10 Mg Tab 10 Mg PO DAILY Lisinopril 10 Mg Tab 10 Mg PO DAILY Atorvastatin (Atorvastatin Calcium) 20 Mg Tab 20 Mg PO HS Klor-Con 10 (Potassium Chloride) 10 Meq Tab 10 Meq PO DAILY Furosemide 20 Mg Tab 20 Mg PO BID Coreg (Carvedilol) 3.125 Mg Tab 3.125 Mg PO Q12HR Aspirin EC (Aspirin) 81 Mg Tabdr 81 Mg PO DAILY Review of Systems General / Constitutional: No: Fever Eyes: No: Visual changes HENT: Positive: Lightheadedness, No: Headaches Cardiovascular: No: Chest Pain or Discomfort Respiratory: No: Shortness of Breath Gastrointestinal: No: Abdominal Pain Genitourinary: No: Dysuria Musculoskeletal: Positive: Weakness, No: Pain Skin: No Rash Neurologic: Positive: Weakness Psychiatric: Positive: Substance Abuse, No: Depression Endocrine: No: Polydipsia Hematologic/Lymphatic: No: Easy Bruising Physical Exam Narrative GENERAL: Thin well-developed patient in no apparent distress. SKIN: Focused skin assessment reveals no rash and nodules. Skin is Warm and dry. HEAD: Atraumatic. Normocephalic. EYES: Pupils equal and round. No scleral icterus. No injection or drainage. ENT: No nasal bleeding or discharge. Mucous membranes pink and moist. NECK: Trachea midline. No JVD. CARDIOVASCULAR: Regular rate and rhythm. No murmur appreciated. RESPIRATORY: No accessory muscle use. Clear to auscultation. Breath sounds equal bilaterally. GASTROINTESTINAL: Abdomen soft, non-tender, nondistended. Hepatic and splenic margins not palpable. MUSCULOSKELETAL: No obvious deformities. No clubbing. No cyanosis. No edema. NEUROLOGICAL: Awake and alert. No obvious cranial nerve deficits. Motor exam reveals prominent left-sided weakness. Normal speech. No tremor. PSYCHIATRIC: Appropriate mood and affect; insight and judgment poor. Data Data Last Documented VS Vital Signs Date Time Temp Pulse Resp B/P Pulse Ox O2 Delivery O2 Flow Rate FiO2 08/27/16 10:15 67 12 155/67 100 Room Air 08/27/16 08:29 98.2 Orders Iv Access Insert/Monitor (08/27/16 08:56) Complete Blood Count With Diff (08/27/16 08:56) Basic Metabolic Panel (Bmp) (08/27/16 08:56) Labs Laboratory Tests Test 08/27/16 09:10 White Blood Count 12.2 TH/MM3 Red Blood Count 3.29 MIL/MM3 Hemoglobin 9.4 GM/DL Hematocrit 29.0 % Mean Corpuscular Volume 88.0 FL Mean Corpuscular Hemoglobin 28.6 PG Mean Corpuscular Hemoglobin 32.5 % Concent Red Cell Distribution Width 18.5 % Platelet Count 285 TH/MM3 Mean Platelet Volume 8.0 FL Neutrophils (%) (Auto) 73.3 % Lymphocytes (%) (Auto) 15.1 % Monocytes (%) (Auto) 6.8 % Eosinophils (%) (Auto) 4.0 % Basophils (%) (Auto) 0.8 % Neutrophils # (Auto) 8.9 TH/MM3 Lymphocytes # (Auto) 1.8 TH/MM3 Monocytes # (Auto) 0.8 TH/MM3 Eosinophils # (Auto) 0.5 TH/MM3 Basophils # (Auto) 0.1 TH/MM3 CBC Comment DIFF FINAL Differential Comment Sodium Level 140 MEQ/L Potassium Level 5.2 MEQ/L Chloride Level 108 MEQ/L Carbon Dioxide Level 27.8 MEQ/L Anion Gap 4 MEQ/L Blood Urea Nitrogen 23 MG/DL Creatinine 1.28 MG/DL Estimat Glomerular Filtration 58 ML/MIN Rate Random Glucose 81 MG/DL Calcium Level 8.8 MG/DL MDM Medical Decision Making Medical Screen Exam Complete: Yes Emergency Medical Condition: Yes Medical Record Reviewed: Yes Differential Diagnosis Symptomatic anemia, hypertensive urgency, noncompliance, vertigo Narrative Course I have reviewed the patient's electronic medical record. Reviewed his discharge summary from yesterday evening. Reviewed his lab draw from yesterday. Hemoglobin was 9.5 He had extensive recent workup including neurologic evaluation and MRI of brain IV placed CBC shows similar 9.4, basically the same as yesterday Metabolic profile show nothing emergent On recheck patient is minimally symptomatic and stable for outpatient follow-up He says that he should be able to stay with his son who lives in an apartment locally for a few days Diagnosis Primary Impression: Lightheadedness Additional Instructions: The patient was advised to follow up with their physician and return if they worsen. Check and record blood pressure daily Avoid alcohol Take daily Prilosec which is [id number] Med/Other Pt SpecificInfo: Other Disposition: DISCHARGE HOME Condition: Stable Geovanny Noland MD Aug 27, 2016 09:05
[2016-08-27 09:38] LABS: AUTOMATED NEUTROPHIL # 8.9 TH/MM3 (1.8-7.7); BASOPHIL # 0.1 TH/MM3 (0-0.2); BASOPHIL % 0.8 % (0.0-2.0); EOSINOPHIL # 0.5 TH/MM3 (0-0.4); HEMO FLAGS DIFF FINAL; LYMPH % 15.1 % (9.0-44.0); LYMPHOCYTE # 1.8 TH/MM3 (1.0-4.8); MEAN CORPUSCULAR HEMOGLOBIN 28.6 PG (27.0-34.0); MEAN CORPUSCULAR HGB CONC 32.5 % (32.0-36.0); MONO % 6.8 % (0.0-8.0); NEUT % 73.3 % (16.0-70.0); PLATELET COUNT 285 TH/MM3 (150-450); RED BLOOD COUNT 3.29 MIL/MM3 (4.50-5.90); RED CELL DISTRIBUTION WIDTH 18.5 % (11.6-17.2); WHITE BLOOD COUNT 12.2 TH/MM3 (4.0-11.0)
[2016-08-27 09:59] LABS: BICARBONATE 27.8 MEQ/L (21.0-32.0)
[2016-08-27 10:03] LABS: POTASSIUM 5.2 MEQ/L (3.5-5.1)
[2016-08-27 10:15] VITALS: BP 155/67; PULSE 67; RESP 12; O2SAT 100
[2016-08-27 12:41] VITALS: BP 146/74
== END 2016-08-27 12:47 | disposition home or self-care (01) ==
LOC: NEPC 08:28
DX: R42 Dizziness and giddiness (principal); R53.1 Weakness; I69.954 Hemiplegia and hemiparesis following unspecified cerebrovascular disease affecting left non-dominant side; L89.629 Pressure ulcer of left heel, unspecified stage; I10 Essential (primary) hypertension; F41.9 Anxiety disorder, unspecified; F32.9 Major depressive disorder, single episode, unspecified; F17.200 Nicotine dependence, unspecified, uncomplicated; Z79.82 Long term (current) use of aspirin
CPT/HCPCS: 80048; 85025; 99283

== ENCOUNTER 2016-09-01 16:22 | Emergency (ER) | payer OTHER ==
[~2016-09-01] VITALS: Ht 177.8 cm; Wt 57.0 kg
[~2016-09-01 16:22] MED LIST changes: -AMLO5 PO; -LISI-519 PO
[2016-09-01 16:49] VITALS: BP 169/85; PULSE 89; RESP 20; TEMP 98.6; O2SAT 100
--- NOTE | 2016-09-01 19:40 | PD ---
HPI Chief Complaint: General Weakness Time Seen by Provider: 19:36 Travel History International Travel<30 days: No Contact w/Intl Traveler<30days: No Traveled to known affect area: No History of Present Illness HPI Patient is a 56-year-old homeless male with a history of CHF EF 35-40% by echo 2 months ago presents emergency Department with generalized weakness. He states it was hot out today and he hadn't been keeping hydrated. States she's been hungry as well. Denies any history of alcohol ingestion or drug abuse. Denies suicidal homicidal ideation. Denies any chest pain shortness breath or abdominal pain. States symptoms started just prior to arrival been gradually worsening. PFSH Past Medical History Hx Anticoagulant Therapy: Yes (81mg asa) Arthritis: Yes (GENERALIZED) Autoimmune Disease: No Blood Disorders: No Anxiety: Yes Depression: Yes Heart Rhythm Problems: No Cancer: No Cardiovascular Problems: Yes High Cholesterol: Yes Cerebrovascular Accident: Yes (CVA JULY 2016) Diabetes: No Diminished Hearing: No Endocrine: No Gastrointestinal Disorders: No Genitourinary: No Hypertension: Yes Immune Disorder: No Implanted Vascular Access Dvce: Yes Musculoskeletal: Yes Neurologic: No Psychiatric: Yes Reproductive: No Respiratory: Yes Immunizations Current: No Thyroid Disease: No Past Surgical History 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13) Thoracic Surgery: Yes (CHEST TUBE INSERTION RIGHT LUNG-07/01/08) Other Surgery: Yes (RIGHT ANKLE, 8 SCREWS AND PLATE) Social History Alcohol Use: No Tobacco Use: Yes (1PPD) Substance Use: No Allergies-Medications (Allergen,Severity, Reaction): Coded Allergies: No Known Allergies (Verified , 09/01/16) Reported Meds & Prescriptions Reported Meds & Active Scripts Active Norvasc (Amlodipine Besylate) 10 Mg Tab 10 Mg PO DAILY Lisinopril 10 Mg Tab 10 Mg PO DAILY Atorvastatin (Atorvastatin Calcium) 20 Mg Tab 20 Mg PO HS Klor-Con 10 (Potassium Chloride) 10 Meq Tab 10 Meq PO DAILY Furosemide 20 Mg Tab 20 Mg PO BID Coreg (Carvedilol) 3.125 Mg Tab 3.125 Mg PO Q12HR Aspirin EC (Aspirin) 81 Mg Tabdr 81 Mg PO DAILY Review of Systems Except as stated in HPI: all other systems reviewed are Neg Physical Exam Narrative GENERAL: Well-developed, thin in no obvious distress. SKIN: Focused skin assessment warm/dry. HEAD: Atraumatic. Normocephalic. EYES: Pupils equal and round. No scleral icterus. No injection or drainage. ENT: No nasal bleeding or discharge. Mucous membranes pink and moist. NECK: Trachea midline. No JVD. CARDIOVASCULAR: Regular rate and rhythm. No murmur appreciated. RESPIRATORY: No accessory muscle use. Clear to auscultation. Breath sounds equal bilaterally. GASTROINTESTINAL: Abdomen soft, non-tender, nondistended. Hepatic and splenic margins not palpable. MUSCULOSKELETAL: No obvious deformities. No clubbing. No cyanosis. No edema. NEUROLOGICAL: Awake and alert. No obvious cranial nerve deficits. Motor grossly within normal limits. Normal speech. PSYCHIATRIC: Appropriate mood and affect; insight and judgment normal. Data Data Last Documented VS Vital Signs Date Time Temp Pulse Resp B/P Pulse Ox O2 Delivery O2 Flow Rate FiO2 09/01/16 20:08 99 09/01/16 20:08 Room Air 09/01/16 16:49 98.6 89 20 169/85 Orders Electrocardiogram (09/01/16 19:38) Basic Metabolic Panel (Bmp) (09/01/16 19:38) Complete Blood Count With Diff (09/01/16 19:38) Magnesium (Mg) (09/01/16 19:38) Ecg Monitoring (09/01/16 19:38) Iv Access Insert/Monitor (09/01/16 19:38) Oximetry (09/01/16 19:38) Oxygen Administration (09/01/16 19:38) Sodium Chloride 0.9% Flush (Ns Flush) (09/01/16 19:45) Sodium Chlorid 0.9% 500 Ml Inj (Ns 500 M (09/01/16 19:45) Creatine Kinase (Cpk) (09/01/16 19:38) Labs Laboratory Tests Test 09/01/16 19:50 White Blood Count 11.9 TH/MM3 Red Blood Count 3.25 MIL/MM3 Hemoglobin 9.8 GM/DL Hematocrit 27.9 % Mean Corpuscular Volume 85.8 FL Mean Corpuscular Hemoglobin 30.3 PG Mean Corpuscular Hemoglobin 35.3 % Concent Red Cell Distribution Width 17.8 % Platelet Count 333 TH/MM3 Mean Platelet Volume 7.6 FL Neutrophils (%) (Auto) 74.3 % Lymphocytes (%) (Auto) 13.6 % Monocytes (%) (Auto) 9.7 % Eosinophils (%) (Auto) 1.3 % Basophils (%) (Auto) 1.1 % Neutrophils # (Auto) 8.8 TH/MM3 Lymphocytes # (Auto) 1.6 TH/MM3 Monocytes # (Auto) 1.2 TH/MM3 Eosinophils # (Auto) 0.2 TH/MM3 Basophils # (Auto) 0.1 TH/MM3 CBC Comment DIFF FINAL Differential Comment Sodium Level 132 MEQ/L Potassium Level 3.5 MEQ/L Chloride Level 95 MEQ/L Carbon Dioxide Level 27.9 MEQ/L Anion Gap 9 MEQ/L Blood Urea Nitrogen 27 MG/DL Creatinine 1.60 MG/DL Estimat Glomerular Filtration 45 ML/MIN Rate Random Glucose 134 MG/DL Calcium Level 9.1 MG/DL Magnesium Level 2.4 MG/DL Total Creatine Kinase 233 U/L MDM Medical Decision Making Medical Screen Exam Complete: Yes Emergency Medical Condition: Yes Interpretation(s) EKG shows sinus rhythm with a normal axis and normal R-wave progression. LVH, LAE, ST segment depression in inferior leads no convincing elevations but there are biphasic T-wave patterns in V3 through V6. RSR prime pattern in V1 and V2. This is an abnormal EKG. Comparison to 06/16/2016 and 07/31/2016 shows no change. Differential Diagnosis SHANTELLE, dehydration, ACS unlikely, [place] unlikely, poor social circumstance. Narrative Course Patient roomed emergency department, was given 500 cc of fluid, his labs reviewed and do show a creatinine 1.6 had a wandering baseline in the past. EKG is unchanged from previous. Patient was fed and given Gatorade. He was reassured and recommended he follow up with the [facility] for his chronic medical problems. He is stable for discharge at this time. Diagnosis Primary Impression: Dehydration Referrals: [facility] Disposition: 01 DISCHARGE HOME Condition: Stable Joon Bobby MD Sep 01, 2016 19:40
[2016-09-01] MEDS ORDERED: SODIUM CHLORID 0.9% 500 ML INJ 500 ML IV ONE (19:45)
[2016-09-01] MEDS ORDERED: SODIUM CHLORIDE 0.9% FLUSH 10 ML FLUSH IVF PRN (19:45)
[2016-09-01 20:08] VITALS: O2SAT 99
[2016-09-01 20:18] LABS: AUTOMATED NEUTROPHIL # 8.8 TH/MM3 (1.8-7.7); BASOPHIL # 0.1 TH/MM3 (0-0.2); BASOPHIL % 1.1 % (0.0-2.0); EOSINOPHIL # 0.2 TH/MM3 (0-0.4); EOSINOPHIL % 1.3 % (0.0-4.0); HEMATOCRIT 27.9 % (39.0-51.0); HEMO FLAGS DIFF FINAL; LYMPH % 13.6 % (9.0-44.0); LYMPHOCYTE # 1.6 TH/MM3 (1.0-4.8); MEAN CELL VOLUME 85.8 FL (80.0-100.0); MEAN CORPUSCULAR HEMOGLOBIN 30.3 PG (27.0-34.0); MEAN CORPUSCULAR HGB CONC 35.3 % (32.0-36.0); MONO % 9.7 % (0.0-8.0); NEUT % 74.3 % (16.0-70.0); PLATELET COUNT 333 TH/MM3 (150-450); RED BLOOD COUNT 3.25 MIL/MM3 (4.50-5.90); RED CELL DISTRIBUTION WIDTH 17.8 % (11.6-17.2); WHITE BLOOD COUNT 11.9 TH/MM3 (4.0-11.0)
[2016-09-01 20:45] LABS: BICARBONATE 27.9 MEQ/L (21.0-32.0); MAGNESIUM 2.4 MG/DL (1.5-2.5); POTASSIUM 3.5 MEQ/L (3.5-5.1)
--- NOTE | 2016-09-02 16:43 | EKG ---
Date Performed: 09/01/2016 Time Performed: 19:55:47 PTAGE: 56 years EKG: Left atrial abnormality Right ventricular conduction disturbance Left ventricular hypertrop hy with secondary ST-T wave change Since PREVIOUS TRACING , atrial abnormality is more prominent, otherwise, no significant change . PREVIOUS TRACING 07/31/2016 DOCTOR: Janes Torres Interpretating Date/Time 09/02/2016 16:42:54
== END 2016-09-01 22:58 | disposition home or self-care (01) ==
LOC: NEPD 16:22
DX: E86.0 Dehydration (principal); F17.200 Nicotine dependence, unspecified, uncomplicated
CPT/HCPCS: 80048; 82550; 83735; 85025; 93005; 96360; 99284; J7040

== ENCOUNTER 2016-09-03 00:14 | Emergency (ER) | payer OTHER ==
[~2016-09-03] VITALS: Ht 177.8 cm; Wt 55.0 kg
[2016-09-03 00:23] VITALS: BP 180/90; PULSE 86; RESP 16; TEMP 98.7; O2SAT 100
--- NOTE | 2016-09-03 00:51 | PD ---
HPI Chief Complaint: Back/ Neck Pain or Injury Time Seen by Provider: 00:33 Travel History International Travel<30 days: No Contact w/Intl Traveler<30days: No Traveled to known affect area: No History of Present Illness HPI Is a 56 year woman who presents emergent [place] back pain. He has back pain for quite some time. He states it bothers him "lion often". States he's been bad again for the past 2 days. He has not taken anything at home for it. Pains in the mid part of his back. No other complaints. Denies trauma or any new injuries. History Past Medical History Narrative Medical CHF Hyperlipidemia Hypertension Anemia Tetanus Vaccination: < 5 Years Influenza Vaccination: Yes Social History Alcohol Use: Yes Tobacco Use: Yes (1 PPD) Allergies-Medications (Allergen,Severity, Reaction): Coded Allergies: No Known Allergies (Verified , 09/01/16) Reported Meds & Prescriptions Reported Meds & Active Scripts Active Norvasc (Amlodipine Besylate) 10 Mg Tab 10 Mg PO DAILY Lisinopril 10 Mg Tab 10 Mg PO DAILY Atorvastatin (Atorvastatin Calcium) 20 Mg Tab 20 Mg PO HS Klor-Con 10 (Potassium Chloride) 10 Meq Tab 10 Meq PO DAILY Furosemide 20 Mg Tab 20 Mg PO BID Coreg (Carvedilol) 3.125 Mg Tab 3.125 Mg PO Q12HR Aspirin EC (Aspirin) 81 Mg Tabdr 81 Mg PO DAILY Review of Systems Except as stated in HPI: all other systems reviewed are Neg Physical Exam Narrative GENERAL: Well-developed, well-nourished, no acute distress. SKIN: Warm and dry. CARDIOVASCULAR: Warm and well perfused. RESPIRATORY: Normal rate and effort. MUSCULOSKELETAL: Normal appearance of back and bilateral lower extremities. No ecchymosis, swelling, bruising. No rashes. Normal muscle bulk and tone. NEUROLOGICAL: Strength full 5/5 and equal in bilateral lower extremities in proximal and distal muscle groups. Patient able to walk with the assistance of a cane. PSYCHIATRIC: Appropriate mood and affect; insight and judgment normal. Data Data Last Documented VS Vital Signs Date Time Temp Pulse Resp B/P Pulse Ox O2 Delivery O2 Flow Rate FiO2 09/03/16 00:24 86 16 09/03/16 00:23 98.7 180/90 100 Orders Acetamin-Hydrocod 325-5 Mg ([place] 5-325 (09/03/16 01:00) MDM Medical Decision Making Medical Screen Exam Complete: Yes Emergency Medical Condition: Yes Differential Diagnosis Back pain, strain or sprain, fracture, other Narrative Course Medical decision-making 56-year-old man presents emergency department complaining of acute on chronic back pain. Looks well. No evidence of radiculopathy or spinal cord compression. Recommended supportive treatment. Diagnosis Primary Impression: Back pain Additional Instructions: Take acetaminophen 1000 mg 3 times daily as needed for back pain. Follow-up with your primary physician or health care for the homeless in 1-2 weeks for repeat evaluation. Disposition: 01 DISCHARGE HOME Condition: Stable Jose C Dee MD Sep 03, 2016 00:51
[2016-09-03] MEDS ORDERED: ACETAMINOPHEN/HYDROcodone 325 MG/5 MG TAB PO ONE (01:00)
== END 2016-09-03 01:35 | disposition home or self-care (01) ==
LOC: NEPC 00:14
DX: M54.9 Dorsalgia, unspecified (principal); E78.5 Hyperlipidemia, unspecified; Z79.82 Long term (current) use of aspirin
CPT/HCPCS: 99283

== ENCOUNTER 2016-09-05 19:31 | Emergency (ER) | payer OTHER ==
[~2016-09-05] VITALS: Ht 177.8 cm; Wt 54.0 kg
[2016-09-05 19:41] VITALS: BP 246/112; PULSE 92; RESP 18; TEMP 98.4; O2SAT 100
[2016-09-05 19:45] VITALS: RESP 18; O2SAT 98
[2016-09-05] MEDS ORDERED: SODIUM CHLOR 0.9% 1000 ML INJ 1,000 ML IV SCH (19:54)
--- NOTE | 2016-09-05 19:58 | PD ---
HPI Chief Complaint: Headache Time Seen by Provider: 19:55 Travel History International Travel<30 days: No Contact w/Intl Traveler<30days: No Traveled to known affect area: No History of Present Illness HPI 56- year old male brought by [facility] to the ED complaining of a headache. The patient reports the headache started at 11:30 this morning while at [facility]. He says nothing makes it worse, and has not tried any medications at this time. He usually takes Tylenol or Advil for his headaches, but states he cannot afford it at this time. He states the LYLE is more posterior and rates it as a 9/10. He reports his headache is slightly exacerbated by light. He denies any injuries or trauma to his head. He denies any LOC. He reports prior medical conditions include HTN, HLD, Anemia, and other heart conditions that he was unsure of. He reports he is not taking any medications due to financial reasons. PFSH Past Medical History Hx Anticoagulant Therapy: Yes (81mg asa) Arthritis: Yes (GENERALIZED) Autoimmune Disease: No Blood Disorders: No Anxiety: Yes Depression: Yes Heart Rhythm Problems: No Cancer: No Cardiovascular Problems: Yes High Cholesterol: Yes Cerebrovascular Accident: Yes Diabetes: No Diminished Hearing: No Endocrine: No Gastrointestinal Disorders: No Genitourinary: No Hypertension: Yes Immune Disorder: No Implanted Vascular Access Dvce: Yes Musculoskeletal: Yes Neurologic: No Psychiatric: Yes Reproductive: No Respiratory: Yes Immunizations Current: No Thyroid Disease: No Past Surgical History 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13) Thoracic Surgery: Yes (CHEST TUBE INSERTION RIGHT LUNG-07/01/08) Other Surgery: Yes (RIGHT ANKLE, 8 SCREWS AND PLATE) Social History Alcohol Use: Yes Tobacco Use: Yes (1 PPD) Substance Use: No Allergies-Medications (Allergen,Severity, Reaction): Coded Allergies: No Known Allergies (Verified , 09/05/16) Reported Meds & Prescriptions Reported Meds & Active Scripts Active Amlodipine (Amlodipine Besylate) 10 Mg Tab 10 Mg PO DAILY Norvasc (Amlodipine Besylate) 10 Mg Tab 10 Mg PO DAILY Atorvastatin (Atorvastatin Calcium) 20 Mg Tab 20 Mg PO HS Klor-Con 10 (Potassium Chloride) 10 Meq Tab 10 Meq PO DAILY Furosemide 20 Mg Tab 20 Mg PO BID Coreg (Carvedilol) 3.125 Mg Tab 3.125 Mg PO Q12HR Aspirin EC (Aspirin) 81 Mg Tabdr 81 Mg PO DAILY Review of Systems General / Constitutional: No: Fever, Chills, Weight Gain, Weight Loss, Other Eyes: No: Diploplia, Blurred Vision, Photophobia, Drainage, Redness, Foreign Body Sensation, Pain, Tearing, Blind Spots, Visual changes, Blindness, Other HENT: Positive: Headaches, No: Vertigo, Lightheadedness, Sore Throat, Rhinitis , Rhinorrhea, Congestion, Nosebleed, Neck Stiffness, Neck Pain, Masses, Gingival Bleeding, Dental Difficulties, Ear Discharge, Earache, Other Cardiovascular: No: Chest Pain or Discomfort, Palpitations, Irregular Rhythm, Tachycardia, Diaphoresis, Syncope, Dyspnea on exertion, Varicosities, Edema, Cyanosis, Varicosities, Phlebitis, Claudication, Other Respiratory: No: Cough, Shortness of Breath, Wheezing, Sneezing, Orthopnea, Hemoptysis, Stridor, Night Sweats, Pleuritic Pain, Other Gastrointestinal: No: Nausea, Vomiting, Diarrhea, Abdominal Pain, Hematemesis, Hematochezia, Constipation, Changes in Bowel Habits, Indigestion, Dysphagia, Loss of Appetite, Other Genitourinary: No: Urgency, Frequency, Dysuria, Nocturia, Hematuria, Decreased Urinary Output, Oliguria, Hesitancy, Dribbling, Incontinence, Pelvic Pain, Flank Pain, Dyspareunia, Discharge, Dysmenorrhea, Menorrhagia, Metorrhagia, Vaginal Bleeding, Other Musculoskeletal: No: Myalgias, Arthralgias, Limited ROM, Weakness, Cramping, Edema, Pain, Atrophy, Other Skin: No Rash, No Itching, No Dryness, No Lumps, No Hives, No Change in Pigmentation, No Change in nails, No Alopecia, No Lesions, No Breast Lumps, No Breast Tenderness, No Breast Swelling, No Other Neurologic: No: Weakness, Dizziness, Syncope, Focal Abnormalities, Coordination Problem, Tremor, Ataxia, Headache, Change in Mentation, Slurred Speech, Paresthesia, Incontinence, Seizures, Sensory Disturbance, Other Physical Exam Narrative GENERAL: SKIN: Warm and dry. HEAD: Atraumatic. Normocephalic. EYES: Pupils equal and round. No scleral icterus. No injection or drainage. ENT: No nasal bleeding or discharge. Mucous membranes pink and moist. Tongue is midline, no uvula deviation. NECK: Trachea midline. No JVD. CARDIOVASCULAR: Regular rate and rhythm. No S3, S4, murmurs, rubs, gallops, or clicks. RESPIRATORY: No accessory muscle use. Clear to auscultation. Breath sounds equal bilaterally. GASTROINTESTINAL: Abdomen soft, non-tender, nondistended. Hepatic and splenic margins not palpable. MUSCULOSKELETAL: Extremities without clubbing, cyanosis, or edema. No obvious deformities. Full ROM of the upper and lower extremities bilaterally. 2+ pulses bilaterally. NEUROLOGICAL: Awake and alert. No obvious cranial nerve deficits. Motor grossly within normal limits. Five out of 5 muscle strength in the arms and legs. Normal speech. PSYCHIATRIC: Appropriate mood and affect; insight and judgment normal. Data Data Last Documented VS Vital Signs Date Time Temp Pulse Resp B/P Pulse Ox O2 Delivery O2 Flow Rate FiO2 09/05/16 22:00 86 18 224/105 97 Room Air 09/05/16 19:41 98.4 Orders Basic Metabolic Panel (Bmp) (09/05/16 19:54) Complete Blood Count With Diff (09/05/16 19:54) Iv Access Insert/Monitor (09/05/16 19:54) Ecg Monitoring (09/05/16 19:54) Oximetry (09/05/16 19:54) Sodium Chlor 0.9% 1000 Ml Inj (Ns 1000 M (09/05/16 19:54) Acetamin-Hydrocod 325-5 Mg ([place] 5-325 (09/05/16 20:00) Ct Brain W/O Iv Contrast(Rout) (09/05/16 ) Clonidine (Catapres) (09/05/16 20:00) Potassium Chloride (Kcl) (09/05/16 21:30) Ns + Kcl 20 Meq Inj (Ns + Kcl 20 Meq Inj (09/05/16 21:30) Lisinopril (Prinivil) (09/05/16 22:00) Amlodipine (Norvasc) (09/05/16 22:15) Potassium Chlor 20 Meq Premix (Kcl 20 Me (09/05/16 22:15) Labs Laboratory Tests Test 09/05/16 19:30 White Blood Count 10.1 TH/MM3 Red Blood Count 3.45 MIL/MM3 Hemoglobin 9.9 GM/DL Hematocrit 29.7 % Mean Corpuscular Volume 86.2 FL Mean Corpuscular Hemoglobin 28.6 PG Mean Corpuscular Hemoglobin 33.2 % Concent Red Cell Distribution Width 18.2 % Platelet Count 415 TH/MM3 Mean Platelet Volume 7.5 FL Neutrophils (%) (Auto) 71.8 % Lymphocytes (%) (Auto) 14.5 % Monocytes (%) (Auto) 8.5 % Eosinophils (%) (Auto) 2.1 % Basophils (%) (Auto) 3.1 % Neutrophils # (Auto) 7.3 TH/MM3 Lymphocytes # (Auto) 1.5 TH/MM3 Monocytes # (Auto) 0.9 TH/MM3 Eosinophils # (Auto) 0.2 TH/MM3 Basophils # (Auto) 0.3 TH/MM3 CBC Comment DIFF FINAL Differential Comment Sodium Level 132 MEQ/L Potassium Level 2.6 MEQ/L Chloride Level 92 MEQ/L Carbon Dioxide Level 30.7 MEQ/L Anion Gap 9 MEQ/L Blood Urea Nitrogen 32 MG/DL Creatinine 1.51 MG/DL Estimat Glomerular Filtration 48 ML/MIN Rate Random Glucose 187 MG/DL Calcium Level 8.8 MG/DL [facility] Medical Decision Making Medical Screen Exam Complete: Yes Emergency Medical Condition: Yes Medical Record Reviewed: Yes Interpretation(s) Last Impressions Head CT 09/05/16 0000 Signed Impressions: Service Date/Time: Monday, September 05, 2016 20:32 - CONCLUSION: No acute findings. 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 Stable bilateral maxillary sinus disease. Rg Montenegro MD CBC & BMP Diagram 09/05/16 19:30 Differential Diagnosis Tension headache versus migraine headache versus cluster headache versus ICH versus hypertension versus leg pain versus acute on chronic pain versus hypertensive malignancy Narrative Course 56-year-old male that presents to the ED for evaluation of headache. Patient was properly examined and was found to have signs and symptoms consistent appears to be hypertension and headache. Headache appears to be benign. Patient has not taken anything for this because he cannot afford anything as he is homeless. Patient does appear to be very hypertensive on exam. In the 200s. He will be given pain medication as well as clonidine. Labs were done as well as imaging to make sure patient doesn't have an ICH more secondary because of the hypertension. Labs and imaging showed low potassium as well as acute on chronic kidney injury likely from the hydration. Patient was given bolus of fluid. Patient was given potassium IV and by mouth. Patient's blood pressure still high in the 200s. Patient was given clonidine for this as well as amlodipine per my attendings recommendation. Patient given a prescription for this. Case will be signed to my attending pending medication reaction. Scripts Amlodipine 10 Mg Tab10 Mg PO DAILY #30 TAB Ref 0 Prov:Eren Paiz MD 09/05/16 Toño [place] Sep 05, 2016 19:58
[2016-09-05 20:00] VITALS: BP 228/112; PULSE 82; RESP 18; O2SAT 98
[2016-09-05] MEDS ORDERED: ACETAMINOPHEN/HYDROcodone 325 MG/5 MG TAB PO ONE (20:00)
[2016-09-05] MEDS ORDERED: cloNIDine HCL 0.1 MG TAB PO ONE (20:00)
[2016-09-05 21:00] VITALS: BP 235/105; PULSE 81; RESP 18; O2SAT 99
[2016-09-05 21:12] LABS: AUTOMATED NEUTROPHIL # 7.3 TH/MM3 (1.8-7.7); BASOPHIL # 0.3 TH/MM3 (0-0.2); BASOPHIL % 3.1 % (0.0-2.0); EOSINOPHIL # 0.2 TH/MM3 (0-0.4); EOSINOPHIL % 2.1 % (0.0-4.0); HEMATOCRIT 29.7 % (39.0-51.0); HEMO FLAGS DIFF FINAL; LYMPH % 14.5 % (9.0-44.0); LYMPHOCYTE # 1.5 TH/MM3 (1.0-4.8); MEAN CELL VOLUME 86.2 FL (80.0-100.0); MEAN CORPUSCULAR HEMOGLOBIN 28.6 PG (27.0-34.0); MEAN CORPUSCULAR HGB CONC 33.2 % (32.0-36.0); MONO % 8.5 % (0.0-8.0); NEUT % 71.8 % (16.0-70.0); PLATELET COUNT 415 TH/MM3 (150-450); RED BLOOD COUNT 3.45 MIL/MM3 (4.50-5.90); RED CELL DISTRIBUTION WIDTH 18.2 % (11.6-17.2); WHITE BLOOD COUNT 10.1 TH/MM3 (4.0-11.0)
--- NOTE | 2016-09-05 21:18 | RADRPT ---
EXAM DATE/TIME: 09/05/2016 20:32 [place] COMPARISON: CT BRAIN W/O CONTRAST, August 05, 2016, 20:28. INDICATIONS : Cephalgia. RADIATION DOSE: 56.35 CTDIvol (mGy) MEDICAL HISTORY : Cerebrovascular disease. Hypertension. SURGICAL HISTORY : None. ENCOUNTER: Initial ACUITY: 1 day PAIN SCALE: 9/10 LOCATION: cranial TECHNIQUE: Multiple contiguous axial images were obtained of the head. Using automated exposure control and adj ustment of the mA and/or kV according to patient size, radiation dose was kept as low as reasonably a chievable to obtain optimal diagnostic quality images. DICOM format image data is available electro nically for review and comparison. FINDINGS: CEREBRUM: The ventricles are normal for age. There are stable areas of encephalomalacia in the right frontal a nd parietal lobes. No evidence of midline shift, mass lesion, hemorrhage or acute infarction. No ext ra-axial fluid collections are seen. POSTERIOR FOSSA: The cerebellum and brainstem are intact. The 4th ventricle is midline. The cerebellopontine angle i s unremarkable. EXTRACRANIAL: The visualized portion of the orbits is intact. There is focal bilateral maxillary sinus disease. SKULL: The calvaria is intact. No evidence of skull fracture. CONCLUSION: No acute findings. 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 Stable bilateral maxillary sinus diseas eAlison Montenegro MD on September 05, 2016 at 21:15 Board Certified Radiologist. This report was verified electronically.
[2016-09-05 21:23] LABS: BICARBONATE 30.7 MEQ/L (21.0-32.0)
[2016-09-05 21:27] LABS: POTASSIUM 2.6 MEQ/L (3.5-5.1)
[2016-09-05] MEDS ORDERED: POTASSIUM CHLORIDE 10 MEQ CONTROLLED RELEASE TAB PO ONE (21:30)
[2016-09-05] MEDS ORDERED: NS + KCL 20 MEQ INJ 1,000 ML IV SCH (21:30)
[2016-09-05] MEDS ORDERED: LISI10TA3 PO (21:55)
[2016-09-05 22:00] VITALS: BP 224/105; PULSE 86; RESP 18; O2SAT 97
[2016-09-05] MEDS ORDERED: LISINOPRIL 10 MG TAB PO ONE (22:00)
[2016-09-05] MEDS ORDERED: AMLO10TA2 PO (22:03)
[2016-09-05] MEDS ORDERED: POTASSIUM CHLOR 20 MEQ PREMIX 100 ML IV ONE (22:15)
[2016-09-05 23:47] VITALS: BP 209/98; PULSE 78; RESP 18; O2SAT 100
[2016-09-06 00:37] VITALS: BP 196/87; PULSE 76; RESP 18; O2SAT 97
[2016-09-06] MEDS ORDERED: POTA10CA PO (01:49)
--- NOTE | 2016-09-06 01:49 | PD ---
Physical Exam Narrative Patient was seen by my title i assistant and signed out to me. Data Data Last Documented VS Vital Signs Date Time Temp Pulse Resp B/P Pulse Ox O2 Delivery O2 Flow Rate FiO2 09/06/16 00:37 76 18 196/87 97 Room Air 09/05/16 19:41 98.4 Orders Basic Metabolic Panel (Bmp) (09/05/16 19:54) Complete Blood Count With Diff (09/05/16 19:54) Iv Access Insert/Monitor (09/05/16 19:54) Ecg Monitoring (09/05/16 19:54) Oximetry (09/05/16 19:54) Sodium Chlor 0.9% 1000 Ml Inj (Ns 1000 M (09/05/16 19:54) Acetamin-Hydrocod 325-5 Mg ([place] 5-325 (09/05/16 20:00) Ct Brain W/O Iv Contrast(Rout) (09/05/16 ) Clonidine (Catapres) (09/05/16 20:00) Potassium Chloride (Kcl) (09/05/16 21:30) Ns + Kcl 20 Meq Inj (Ns + Kcl 20 Meq Inj (09/05/16 21:30) Lisinopril (Prinivil) (09/05/16 22:00) Amlodipine (Norvasc) (09/05/16 22:15) Potassium Chlor 20 Meq Premix (Kcl 20 Me (09/05/16 22:15) Labs Laboratory Tests Test 09/05/16 19:30 White Blood Count 10.1 TH/MM3 Red Blood Count 3.45 MIL/MM3 Hemoglobin 9.9 GM/DL Hematocrit 29.7 % Mean Corpuscular Volume 86.2 FL Mean Corpuscular Hemoglobin 28.6 PG Mean Corpuscular Hemoglobin 33.2 % Concent Red Cell Distribution Width 18.2 % Platelet Count 415 TH/MM3 Mean Platelet Volume 7.5 FL Neutrophils (%) (Auto) 71.8 % Lymphocytes (%) (Auto) 14.5 % Monocytes (%) (Auto) 8.5 % Eosinophils (%) (Auto) 2.1 % Basophils (%) (Auto) 3.1 % Neutrophils # (Auto) 7.3 TH/MM3 Lymphocytes # (Auto) 1.5 TH/MM3 Monocytes # (Auto) 0.9 TH/MM3 Eosinophils # (Auto) 0.2 TH/MM3 Basophils # (Auto) 0.3 TH/MM3 CBC Comment DIFF FINAL Differential Comment Sodium Level 132 MEQ/L Potassium Level 2.6 MEQ/L Chloride Level 92 MEQ/L Carbon Dioxide Level 30.7 MEQ/L Anion Gap 9 MEQ/L Blood Urea Nitrogen 32 MG/DL Creatinine 1.51 MG/DL Estimat Glomerular Filtration 48 ML/MIN Rate Random Glucose 187 MG/DL Calcium Level 8.8 MG/DL MDM Supervised Visit with FERNANDEZ: Yes Diagnosis Primary Impression: Headache Qualified Code: R51 - Acute intractable headache, unspecified headache type Additional Impressions: Hypertension Qualified Code: I10 - Essential hypertension Hypokalemia Renal insufficiency Referrals: Primary Care Physician call for appointment Patient Instructions: General Instructions, Narcotic given in the ED, Acute Headache (ED), Hypertensive Crisis (ED), Hypertension (ED) Departure Forms: Tests/Procedures Additional Instruction: Take medications as directed. Follow-up with personal physician. Check blood pressure daily. Return if worse. Tylenol for headache. Scripts Potassium Chloride ER 10 Meq Cap10 Meq PO DAILY #7 CAP Ref 0 Prov:Eren Paiz MD 09/06/16 Amlodipine 10 Mg Tab10 Mg PO DAILY #30 TAB Ref 0 Prov:Eren Paiz MD 09/05/16 Disposition: 01 DISCHARGE HOME Condition: Stable Eren Paiz MD Sep 06, 2016 01:49
[2016-09-07] MEDS ORDERED: AMLO10TA2 PO (09:16)
== END 2016-09-06 02:38 | disposition home or self-care (01) ==
LOC: NEPC 19:31
DX: R51 Headache (principal); I10 Essential (primary) hypertension; E87.6 Hypokalemia; N28.9 Disorder of kidney and ureter, unspecified; F17.200 Nicotine dependence, unspecified, uncomplicated
CPT/HCPCS: 70450; 80048; 85025; 96361; 96365; 96366; 99285; J3480; J7030

== ENCOUNTER 2016-09-07 06:02 | Emergency (ER) | payer OTHER ==
[~2016-09-07] VITALS: Ht 177.8 cm; Wt 53.0 kg
[~2016-09-07 06:02] MED LIST changes: +AMLO10TA2 PO; +POTA10CA PO
[2016-09-07 06:11] VITALS: BP 258/119; PULSE 88; RESP 16; TEMP 98.1
[2016-09-07] MEDS ORDERED: cloNIDine HCL 0.1 MG TAB PO ONE (06:30)
[2016-09-07] MEDS ORDERED: SODIUM CHLORIDE 0.9% FLUSH 10 ML FLUSH IVF PRN (06:30)
--- NOTE | 2016-09-07 06:36 | PD ---
HPI Chief Complaint: Abdominal Pain Time Seen by Provider: 06:07 Travel History International Travel<30 days: No Contact w/Intl Traveler<30days: No Traveled to known affect area: No History of Present Illness HPI The patient is 56 years old he arrives by EMS due to right abdomen pain. He reports resolution of pain prior to ER arrival and at time of ER arrival has no specific complaint. He does mention a vague flexing sensation in his left hand and left foot. No headache chest pain shortness of breath numbness tingling or weakness. Blood pressure upon arrival happens to be 258/119. He reports noncompliance with antihypertensives due to financial difficulty. Location generalized Inc. cardiovascular. Location is also gastrointestinal. Severity is moderate. The patient arrives here for the fourth time in the past fifth time in the past 10 days with prior visits for lightheadedness dehydration back pain and headache. PFSH Past Medical History Hx Anticoagulant Therapy: Yes (81mg asa) Arthritis: Yes (GENERALIZED) Autoimmune Disease: No Blood Disorders: No Anxiety: Yes Depression: Yes Heart Rhythm Problems: No Cancer: No Cardiovascular Problems: Yes High Cholesterol: Yes Cerebrovascular Accident: Yes (CVA 6 weeks ago) Diabetes: No Diminished Hearing: No Endocrine: No Gastrointestinal Disorders: No Genitourinary: No Hypertension: Yes Immune Disorder: No Implanted Vascular Access Dvce: Yes Musculoskeletal: Yes Neurologic: No Psychiatric: Yes Reproductive: No Respiratory: Yes Immunizations Current: No Thyroid Disease: No Past Surgical History 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13) Thoracic Surgery: Yes (CHEST TUBE INSERTION RIGHT LUNG-07/01/08) Other Surgery: Yes (RIGHT ANKLE, 8 SCREWS AND PLATE) Social History Alcohol Use: Yes Tobacco Use: Yes (1 PPD) Substance Use: No Allergies-Medications (Allergen,Severity, Reaction): Coded Allergies: No Known Allergies (Verified , 09/07/16) Reported Meds & Prescriptions Reported Meds & Active Scripts Active Potassium Chloride ER (Potassium Chloride) 10 Meq Cap 10 Meq PO DAILY Amlodipine (Amlodipine Besylate) 10 Mg Tab 10 Mg PO DAILY Norvasc (Amlodipine Besylate) 10 Mg Tab 10 Mg PO DAILY Atorvastatin (Atorvastatin Calcium) 20 Mg Tab 20 Mg PO HS Klor-Con 10 (Potassium Chloride) 10 Meq Tab 10 Meq PO DAILY Furosemide 20 Mg Tab 20 Mg PO BID Coreg (Carvedilol) 3.125 Mg Tab 3.125 Mg PO Q12HR Aspirin EC (Aspirin) 81 Mg Tabdr 81 Mg PO DAILY Review of Systems Except as stated in HPI: all other systems reviewed are Neg Physical Exam Narrative GENERAL: 56-year-old male thin no acute distress SKIN: Focused skin assessment warm/dry. HEAD: Atraumatic. Normocephalic. EYES: Pupils equal and round. No scleral icterus. No injection or drainage. ENT: No nasal bleeding or discharge. Mucous membranes pink and moist. NECK: Trachea midline. No JVD. CARDIOVASCULAR: Regular rate and rhythm. No murmur appreciated. RESPIRATORY: No accessory muscle use. Clear to auscultation. Breath sounds equal bilaterally. GASTROINTESTINAL: Abdomen soft, non-tender, nondistended. Hepatic and splenic margins not palpable. MUSCULOSKELETAL: No obvious deformities. No clubbing. No cyanosis. No edema. NEUROLOGICAL: Awake and alert. No obvious cranial nerve deficits. Motor grossly within normal limits. Normal speech. PSYCHIATRIC: Appropriate mood and affect; insight and judgment normal. Data Data Last Documented VS Vital Signs Date Time Temp Pulse Resp B/P Pulse Ox O2 Delivery O2 Flow Rate FiO2 09/07/16 06:11 98.1 88 16 258/119 Vital signs reviewed Orders Electrocardiogram (09/07/16 06:30) Basic Metabolic Panel (Bmp) (09/07/16 06:30) Complete Blood Count With Diff (09/07/16 06:30) Ecg Monitoring (09/07/16 06:30) Iv Access Insert/Monitor (09/07/16 06:30) Oximetry (09/07/16 06:30) Sodium Chloride 0.9% Flush (Ns Flush) (09/07/16 06:30) Clonidine (Catapres) (09/07/16 06:30) MDM Medical Decision Making Medical Screen Exam Complete: Yes Emergency Medical Condition: Yes Medical Record Reviewed: Yes Differential Diagnosis Hypertensive crisis, end organ injury, anemia, electrolyte imbalance, malingering Narrative Course The patient arrives with a complaint of resolved abdominal pain. He would be suitable for discharge however his blood pressure is 260/120. Clonidine has been given. Basic blood work has been ordered. His EKG demonstrates chronic diffuse ST changes which are unchanged compared to priors. Routine blood work if normal and if the blood pressure response to clonidine the patient can be discharged. Oncoming provider to follow-up blood work and reassessed patient. Socrates Garcia MD Sep 07, 2016 06:36
[2016-09-07 07:08] LABS: HEMATOCRIT 29.8 % (39.0-51.0); MEAN CELL VOLUME 86.3 FL (80.0-100.0); MEAN CORPUSCULAR HEMOGLOBIN 28.3 PG (27.0-34.0); MEAN CORPUSCULAR HGB CONC 32.8 % (32.0-36.0); PLATELET COUNT 443 TH/MM3 (150-450); RED BLOOD COUNT 3.45 MIL/MM3 (4.50-5.90); RED CELL DISTRIBUTION WIDTH 17.8 % (11.6-17.2); WHITE BLOOD COUNT 10.1 TH/MM3 (4.0-11.0)
[2016-09-07 07:12] LABS: HEMO FLAGS AUTO DIFF
[2016-09-07 07:32] LABS: BICARBONATE 30.9 MEQ/L (21.0-32.0)
[2016-09-07 07:36] LABS: POTASSIUM 2.9 MEQ/L (3.5-5.1)
[2016-09-07] MEDS ORDERED: POTASSIUM CHLORIDE 10 MEQ CONTROLLED RELEASE TAB PO ONE (07:45)
[2016-09-07] MEDS ORDERED: POTASSIUM CHLOR 10 MEQ PREMIX 100 ML IV ONE (07:45)
[2016-09-07 08:07] VITALS: BP 238/116; PULSE 75; RESP 14; O2SAT 100
[2016-09-07 08:08] LABS: BASOPHILS 2 % (0-2); EOSINOPHILS 10 % (0-4); NEUTROPHIL # MANUAL DIFF 6.4 TH/MM3 (1.8-7.7); PLATELET ESTIMATE SMEAR NORMAL (NORMAL); PLATELET MORPHOLOGY NORMAL (NORMAL); POLYS (SEG NEUTROPHILS) 63 % (16-70); WBC DIFF SAMPLE 100
[2016-09-07 08:09] LABS: SCAN/DIFF FINAL DIFF MANUAL
[2016-09-07 08:54] VITALS: BP 226/102; PULSE 87; RESP 16; O2SAT 100
[2016-09-07] MEDS ORDERED: AMLO10TA2 PO (09:16)
--- NOTE | 2016-09-07 09:16 | PD ---
Physical Exam Narrative Patient signed out to me by Dr. Garcia. Please see his documentation for complete details. Briefly, patient is a 56-year-old male came in complaining of abdominal pain. His pain has resolved on its own. He says he is just tired. His blood pressure was found to be high on arrival. He says he has not been able to get his blood pressure medication. He usually takes amlodipine 10 mg. He has no complaints at this time. Exam shows no acute abnormalities. Data Data Last Documented VS Vital Signs Date Time Temp Pulse Resp B/P Pulse Ox O2 Delivery O2 Flow Rate FiO2 09/07/16 09:40 65 16 190/84 100 09/07/16 08:54 Room Air 09/07/16 06:11 98.1 Orders Electrocardiogram (09/07/16 06:30) Basic Metabolic Panel (Bmp) (09/07/16 06:30) Complete Blood Count With Diff (09/07/16 06:30) Ecg Monitoring (09/07/16 06:30) Iv Access Insert/Monitor (09/07/16 06:30) Oximetry (09/07/16 06:30) Sodium Chloride 0.9% Flush (Ns Flush) (09/07/16 06:30) Clonidine (Catapres) (09/07/16 06:30) Amlodipine (Norvasc) (09/07/16 07:30) Potassium Chloride (Kcl) (09/07/16 07:45) Potassium Chlor 10 Meq Premix (Kcl 10 Me (09/07/16 07:45) Labs Laboratory Tests Test 09/07/16 06:45 White Blood Count 10.1 TH/MM3 Red Blood Count 3.45 MIL/MM3 Hemoglobin 9.8 GM/DL Hematocrit 29.8 % Mean Corpuscular Volume 86.3 FL Mean Corpuscular Hemoglobin 28.3 PG Mean Corpuscular Hemoglobin 32.8 % Concent Red Cell Distribution Width 17.8 % Platelet Count 443 TH/MM3 Mean Platelet Volume 7.1 FL Neutrophils (%) (Auto) % Lymphocytes (%) (Auto) % Monocytes (%) (Auto) % Eosinophils (%) (Auto) % Basophils (%) (Auto) % Neutrophils # (Auto) TH/MM3 Lymphocytes # (Auto) TH/MM3 Monocytes # (Auto) TH/MM3 Eosinophils # (Auto) TH/MM3 Basophils # (Auto) TH/MM3 CBC Comment AUTO DIFF Differential Total Cells 100 Counted Neutrophils % (Manual) 63 % Lymphocytes % 23 % Monocytes % 2 % Eosinophils % 10 % Basophils % 2 % Neutrophils # (Manual) 6.4 TH/MM3 Differential Comment FINAL DIFF MANUAL Platelet Estimate NORMAL Platelet Morphology Comment NORMAL Red Cell Morphology Comment NORMAL Sodium Level 134 MEQ/L Potassium Level 2.9 MEQ/L Chloride Level 93 MEQ/L Carbon Dioxide Level 30.9 MEQ/L Anion Gap 10 MEQ/L Blood Urea Nitrogen 20 MG/DL Creatinine 1.10 MG/DL Estimat Glomerular Filtration 69 ML/MIN Rate Random Glucose 87 MG/DL Calcium Level 8.7 MG/DL MDM Supervised Visit with FERNANDEZ: No Narrative Course Labs show a potassium of 2.9, this was replaced. Patient given his amlodipine with some improvement of his blood pressure. Patient given a prescription for the amlodipine. Advised to follow-up with his doctors. Advised to return to the ED as needed for any worsening symptoms. Diagnosis Primary Impression: Hypertension Qualified Code: I10 - Essential hypertension Additional Impression: Hypokalemia Patient Instructions: General Instructions, Hypertension (ED), Hypokalemia (ED) Additional Instruction: Follow-up with her doctors. Take your blood pressure medication as directed. Return to the ED as needed for any worsening symptoms. Scripts Amlodipine 10 Mg Tab10 Mg PO DAILY #30 TAB Ref 0 Prov:Stephanie Trevino MD 09/07/16 Disposition: 01 DISCHARGE HOME Condition: Stable Stephanie Trevino MD Sep 07, 2016 09:16
[2016-09-07 09:40] VITALS: BP 190/84
--- NOTE | 2016-09-08 10:17 | EKG ---
Date Performed: 09/07/2016 Time Performed: 06:22:06 PTAGE: 56 years EKG: Sinus rhythm with occasional supraventricular complexes Possible right atrial enlargement Left atrial enlargement Possible right ventricular conduction delay Left ventricular hypertrophy and ST-T changes Abnormal E CG Since PREVIOUS TRACING , no significant change noted PREVIOUS TRACIN09/01/2016 19.55 DOCTOR: Josiah Moise Interpretating Date/Time 09/08/2016 10:15:33
== END 2016-09-07 10:29 | disposition home or self-care (01) ==
LOC: NEPE 06:02
DX: I10 Essential (primary) hypertension (principal); E87.6 Hypokalemia; M15.9 Polyosteoarthritis, unspecified; E78.00 Pure hypercholesterolemia, unspecified; F10.10 Alcohol abuse, uncomplicated; F17.290 Nicotine dependence, other tobacco product, uncomplicated; Z79.82 Long term (current) use of aspirin
CPT/HCPCS: 80048; 85007; 85027; 93005; 96365; 99284; J3480

== ENCOUNTER 2016-09-08 19:11 | Emergency (ER) | payer OTHER ==
[~2016-09-08] VITALS: Ht 182.9 cm; Wt 65.0 kg
[2016-09-08 19:29] VITALS: BP 236/110; PULSE 98; RESP 12; TEMP 98.3; O2SAT 100
--- NOTE | 2016-09-08 21:13 | PD ---
HPI Chief Complaint: Bite or Sting Time Seen by Provider: 21:00 Travel History International Travel<30 days: No Contact w/Intl Traveler<30days: No Traveled to known affect area: No History of Present Illness HPI This is a 56-year-old male who has been seen here several times in the past few weeks for various complaints. He presents today for evaluation of a bug bite to the left elbow. He reports that he is currently homeless, living in the [facility]. He reports that he was swatting away mosquitoes this afternoon when he felt a stinging sensation on his left elbow. This was brief and has since resolved. This was several hours ago. He no longer has any discomfort in his left arm. In addition the patient complains of a left heel ulceration. He reports that he has had a blister on the posterior aspect of his left heel which today he noticed popped. This is somewhat painful. He denies any drainage or fevers or chills. His blood pressure was and noted to be elevated in triage. Twice in the past week he has been given prescriptions for amlodipine 10 mg however he has not filled the prescription yet. He has no other complaints. PFSH Past Medical History Hx Anticoagulant Therapy: Yes (81mg asa) Arthritis: Yes (GENERALIZED) Autoimmune Disease: No Blood Disorders: No Anxiety: Yes Depression: Yes Heart Rhythm Problems: No Cancer: No Cardiovascular Problems: Yes (htn) High Cholesterol: Yes Cerebrovascular Accident: Yes (CVA 6 weeks ago) Diabetes: No Diminished Hearing: No Endocrine: No Gastrointestinal Disorders: No Genitourinary: No Hypertension: Yes Immune Disorder: No Implanted Vascular Access Dvce: Yes Musculoskeletal: Yes Neurologic: No Psychiatric: Yes Reproductive: No Respiratory: Yes Immunizations Current: No Thyroid Disease: No Past Surgical History 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13) Thoracic Surgery: Yes (CHEST TUBE INSERTION RIGHT LUNG-07/01/08) Other Surgery: Yes (RIGHT ANKLE, 8 SCREWS AND PLATE) Social History Alcohol Use: No (DENIES) Tobacco Use: Yes (1 PPD) Substance Use: No Allergies-Medications (Allergen,Severity, Reaction): Coded Allergies: No Known Allergies (Verified , 09/08/16) Reported Meds & Prescriptions Reported Meds & Active Scripts Active Amlodipine (Amlodipine Besylate) 10 Mg Tab 10 Mg PO DAILY Potassium Chloride ER (Potassium Chloride) 10 Meq Cap 10 Meq PO DAILY Amlodipine (Amlodipine Besylate) 10 Mg Tab 10 Mg PO DAILY Norvasc (Amlodipine Besylate) 10 Mg Tab 10 Mg PO DAILY Atorvastatin (Atorvastatin Calcium) 20 Mg Tab 20 Mg PO HS Klor-Con 10 (Potassium Chloride) 10 Meq Tab 10 Meq PO DAILY Furosemide 20 Mg Tab 20 Mg PO BID Coreg (Carvedilol) 3.125 Mg Tab 3.125 Mg PO Q12HR Aspirin EC (Aspirin) 81 Mg Tabdr 81 Mg PO DAILY Review of Systems Except as stated in HPI: all other systems reviewed are Neg Physical Exam Narrative GENERAL: Disheveled appearing male in no acute distress SKIN: Warm and dry. There is a ulceration on the posterior aspect of the left heel which is not erythematous or foul-smelling. HEAD: Atraumatic. Normocephalic. EYES: Pupils equal and round. No scleral icterus. No injection or drainage. ENT: No nasal bleeding or discharge. Mucous membranes pink and moist. NECK: Trachea midline. No JVD. CARDIOVASCULAR: Regular rate and rhythm. No murmur appreciated. RESPIRATORY: No accessory muscle use. Clear to auscultation. Breath sounds equal bilaterally. GASTROINTESTINAL: Abdomen soft, non-tender, nondistended. Hepatic and splenic margins not palpable. MUSCULOSKELETAL: No obvious deformities. For the 5 muscle strength left upper extremity, chronic from previous CVA. NEUROLOGICAL: Awake and alert. No obvious cranial nerve deficits. Motor grossly within normal limits. Normal speech. PSYCHIATRIC: Appropriate mood and affect; insight and judgment normal. Data Data Last Documented VS Vital Signs Date Time Temp Pulse Resp B/P Pulse Ox O2 Delivery O2 Flow Rate FiO2 09/08/16 22:16 210/98 09/08/16 19:29 98.3 98 12 100 Room Air Orders Amlodipine (Norvasc) (09/08/16 21:15) Wound Care (09/08/16 21:09) MDM Medical Decision Making Medical Screen Exam Complete: Yes Emergency Medical Condition: Yes Medical Record Reviewed: Yes Differential Diagnosis Bug bite, homelessness, malingering, essential hypertension, medication noncompliance, heel ulcer, osteomyelitis Narrative Course This is a homeless individual who presents primarily complaining of a bug bite on his left elbow which occurred when he was in the [place]. He no longer has any sort of discomfort in his left arm and there is no evidence of an allergic reaction or infection. He is also complaining of a blister that popped on his left heel. He has a noninfected appearing left heel ulcer. He is certainly at high risk of infection given his homeless status. Local wound care will be provided. He will be given information on how to apply for the patient assistance program. In addition his blood pressure is quite elevated. This is essentially his baseline hypertension which is comparable to all of his recent visits. He is noncompliant with amlodipine which she has been prescribed here twice in the past week. He was counseled her extensively on the importance of blood pressure control and blood pressure management and the risks associated with chronic hypertension. He verbalizes understanding of this. He will be given a dose of his amlodipine prior to discharge. Upon reexamination the patient's blood pressure properly reduced to 210/98. Diagnosis Primary Impression: Hypertension Qualified Code: I10 - Essential hypertension Additional Impressions: Noncompliance with medication regimen Bug bite Qualified Code: W57.XXXA - Bug bite, initial encounter Ulcer of left foot Qualified Code: L97.521 - Skin ulcer of left foot, limited to breakdown of skin Additional Instructions: As discussed, it is essential that you take your amlodipine as prescribed. Follow up closely with a primary care physician for further treatment of your high blood pressure. Keep the wound on your left foot clean. Return for any emergent medical conditions. Med/Other Pt SpecificInfo: No Change to Meds Disposition: 01 DISCHARGE HOME Condition: Stable Marcelo Love Sep 08, 2016 21:13
[2016-09-08 22:16] VITALS: BP 210/98
== END 2016-09-08 22:45 | disposition home or self-care (01) ==
LOC: NEPD 19:11
DX: S50.362A Insect bite (nonvenomous) of left elbow, initial encounter (principal); I10 Essential (primary) hypertension; W57.XXXA Bitten or stung by nonvenomous insect and other nonvenomous arthropods, initial encounter; L97.521 Non-pressure chronic ulcer of other part of left foot limited to breakdown of skin; E78.00 Pure hypercholesterolemia, unspecified; Z86.73 Personal history of transient ischemic attack (TIA), and cerebral infarction without residual deficits
CPT/HCPCS: 99283

== ENCOUNTER 2016-09-09 20:48 | Inpatient (IN) | payer OTHER ==
[~2016-09-09] VITALS: Ht 172.7 cm; Wt 50.0 kg
[~2016-09-09 20:48] MED LIST changes: -LISI10TA3 PO
[2016-09-09 20:52] VITALS: BP 173/82; PULSE 94; RESP 22; TEMP 98.4; O2SAT 99
[2016-09-09 20:59] VITALS: O2SAT 98
[2016-09-09] MEDS ORDERED: CARVEDILOL 3.125 MG TAB PO ONE (21:00)
[2016-09-09] MEDS ORDERED: LABETALOL HCL 100 MG/20 ML VIAL IV PUSH ONE (21:00)
[2016-09-09] MEDS ORDERED: SODIUM CHLORIDE 0.9% FLUSH 10 ML FLUSH IVF PRN (21:00)
--- NOTE | 2016-09-09 21:16 | PD ---
HPI Chief Complaint: Respiratory Symptoms Time Seen by Provider: 20:56 Travel History International Travel<30 days: No Contact w/Intl Traveler<30days: No Traveled to known affect area: No History of Present Illness HPI Patient is a 56-year-old male with long-standing poorly controlled hypertension who presents emergency Department with shortness of breath. Patient has been here 6 times in our emergency department over recent days. He is complaining of various complaints. Today he presents with complaint of shortness of breath 1 hour. States that this is worse with any exertion. Patient denies any chest pain. He is a one pack per day smoker, but denies any known history of COPD, emphysema. He has not had any cough, sputum production, fevers. Patient seen here in our emergency department last night for hypertension. Discharge to home but has yet to fill his Norvasc despite it being free at [email or web address] after multiple times of education on previous ED visits. PFSH Past Medical History Hx Anticoagulant Therapy: Yes (81mg asa) Arthritis: Yes (GENERALIZED) Autoimmune Disease: No Blood Disorders: No Anxiety: Yes Depression: Yes Heart Rhythm Problems: No Cancer: No Cardiovascular Problems: Yes (htn) High Cholesterol: Yes Cerebrovascular Accident: Yes (CVA 6 weeks ago) Diabetes: No Diminished Hearing: No Endocrine: No Gastrointestinal Disorders: No Genitourinary: No Hypertension: Yes Immune Disorder: No Implanted Vascular Access Dvce: Yes Musculoskeletal: Yes Neurologic: No Psychiatric: Yes Reproductive: No Respiratory: Yes Immunizations Current: No Thyroid Disease: No Past Surgical History 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13) Thoracic Surgery: Yes (CHEST TUBE INSERTION RIGHT LUNG-07/01/08) Other Surgery: Yes (RIGHT ANKLE, 8 SCREWS AND PLATE) Social History Alcohol Use: No (DENIES) Tobacco Use: Yes (1 PPD) Substance Use: No Allergies-Medications (Allergen,Severity, Reaction): Coded Allergies: No Known Allergies (Verified , 09/09/16) Reported Meds & Prescriptions Reported Meds & Active Scripts Active Amlodipine (Amlodipine Besylate) 10 Mg Tab 10 Mg PO DAILY Potassium Chloride ER (Potassium Chloride) 10 Meq Cap 10 Meq PO DAILY Amlodipine (Amlodipine Besylate) 10 Mg Tab 10 Mg PO DAILY Norvasc (Amlodipine Besylate) 10 Mg Tab 10 Mg PO DAILY Atorvastatin (Atorvastatin Calcium) 20 Mg Tab 20 Mg PO HS Klor-Con 10 (Potassium Chloride) 10 Meq Tab 10 Meq PO DAILY Furosemide 20 Mg Tab 20 Mg PO BID Coreg (Carvedilol) 3.125 Mg Tab 3.125 Mg PO Q12HR Aspirin EC (Aspirin) 81 Mg Tabdr 81 Mg PO DAILY Review of Systems ROS Limitations: Poor Historian Except as stated in HPI: all other systems reviewed are Neg Physical Exam Exam Limitations: Poor Historian Narrative GENERAL: Cachectic adult male appearing older than stated age in no acute distress SKIN: Focused skin assessment warm/dry. HEAD: Normocephalic. EYES: No scleral icterus. No injection or drainage. ENT: Mucous membranes pink and moist. NECK: Supple CARDIOVASCULAR: Regular rate and rhythm. No murmur appreciated. Hypertensive. RESPIRATORY: No accessory muscle use. Clear to auscultation. Breath sounds equal bilaterally. GASTROINTESTINAL: Abdomen soft, non-tender, nondistended. MUSCULOSKELETAL: No obvious deformities.No edema. NEUROLOGICAL: Awake and alert. Motor grossly within normal limits. Normal speech. PSYCHIATRIC: Appropriate mood and affect; insight and judgment normal. Data Data Last Documented VS Vital Signs Date Time Temp Pulse Resp B/P Pulse Ox O2 Delivery O2 Flow Rate FiO2 09/09/16 21:37 73 16 189/84 99 09/09/16 20:59 Room Air 09/09/16 20:52 98.4 Orders Complete Blood Count With Diff (09/09/16 20:56) Basic Metabolic Panel (Bmp) (09/09/16 20:56) Troponin I (09/09/16 20:56) Iv Access Insert/Monitor (09/09/16 20:56) Electrocardiogram (09/09/16 20:56) Ecg Monitoring (09/09/16 20:56) Oximetry (09/09/16 20:56) Chest, Single Ap (09/09/16 20:56) Sodium Chloride 0.9% Flush (Ns Flush) (09/09/16 21:00) Labetalol Inj (Trandate Inj) (09/09/16 21:00) Amlodipine (Norvasc) (09/09/16 21:00) Carvedilol (Coreg) (09/09/16 21:00) Enalaprilat Inj (Vasotec Inj) (09/09/16 22:45) Consult Cardiology (09/09/16 ) Aspirin (Aspirin) (09/09/16 22:45) (Hub Use Only)Inp Phy Cons/Ref (09/09/16 ) Admit Order (Ed Use Only) (09/09/16 23:14) Potassium Chloride (Kcl) (09/09/16 23:15) Labs Laboratory Tests Test 09/09/16 21:05 White Blood Count 8.9 TH/MM3 Red Blood Count 3.41 MIL/MM3 Hemoglobin 9.4 GM/DL Hematocrit 29.0 % Mean Corpuscular Volume 85.1 FL Mean Corpuscular Hemoglobin 27.7 PG Mean Corpuscular Hemoglobin 32.5 % Concent Red Cell Distribution Width 17.6 % Platelet Count 475 TH/MM3 Mean Platelet Volume 7.2 FL Neutrophils (%) (Auto) 55.9 % Lymphocytes (%) (Auto) 26.1 % Monocytes (%) (Auto) 11.8 % Eosinophils (%) (Auto) 4.8 % Basophils (%) (Auto) 1.4 % Neutrophils # (Auto) 4.9 TH/MM3 Lymphocytes # (Auto) 2.3 TH/MM3 Monocytes # (Auto) 1.0 TH/MM3 Eosinophils # (Auto) 0.4 TH/MM3 Basophils # (Auto) 0.1 TH/MM3 CBC Comment DIFF FINAL Differential Comment Sodium Level 134 MEQ/L Potassium Level 3.2 MEQ/L Chloride Level 93 MEQ/L Carbon Dioxide Level 32.9 MEQ/L Anion Gap 8 MEQ/L Blood Urea Nitrogen 37 MG/DL Creatinine 1.20 MG/DL Estimat Glomerular Filtration 63 ML/MIN Rate Random Glucose 100 MG/DL Calcium Level 8.6 MG/DL Troponin I 0.12 NG/ML [facility] Medical Decision Making Medical Screen Exam Complete: Yes Emergency Medical Condition: Yes Medical Record Reviewed: Yes Differential Diagnosis 56-year-old male with long-standing poorly controlled HTN here with complaint of one hour shortness of breath. Differential includes COPD, pneumonia, arrhythmia, electrolyte abnormality, ACS, symptomatic anemia, hypertensive urgency/emergency. Narrative Course Patient placed on monitor, IV established and blood obtained. Twelve-lead EKG shows sinus rhythm with significant LVH with strain type pattern with T-wave inversions throughout inferior and lateral leads. Compared to patient's previous EKG this is baseline. Portable chest x-ray obtained that by my read shows no acute abnormalities. Patient given his home amlodipine, carvedilol as well as 20 mg labetalol IV. CBC, BMP, troponin notable for hemoglobin 9.4, platelets 475. Potassium 3.2, replaced with potassium orally. Troponin elevated 0.12. Again, patient does not have any chest pain, only shortness of breath. Suspect that his troponin elevation is likely demand ischemia from his significant hypertension versus non-STEMI. He was given aspirin, has her he had beta terry and will be admitted for serial enzymes and cardiology consultation. Diagnosis Primary Impression: Dyspnea Qualified Code: R06.02 - Shortness of breath Additional Impressions: Elevated troponin Hypertension Qualified Code: I10 - Essential hypertension Noncompliance with medication regimen Admitting Information Admitting Physician Requests: Admit Mary Barnett MD Sep 09, 2016 21:16
[2016-09-09 21:25] LABS: AUTOMATED NEUTROPHIL # 4.9 TH/MM3 (1.8-7.7); BASOPHIL # 0.1 TH/MM3 (0-0.2); BASOPHIL % 1.4 % (0.0-2.0); EOSINOPHIL # 0.4 TH/MM3 (0-0.4); EOSINOPHIL % 4.8 % (0.0-4.0); HEMO FLAGS DIFF FINAL; LYMPH % 26.1 % (9.0-44.0); LYMPHOCYTE # 2.3 TH/MM3 (1.0-4.8); MEAN CELL VOLUME 85.1 FL (80.0-100.0); MEAN CORPUSCULAR HEMOGLOBIN 27.7 PG (27.0-34.0); MEAN CORPUSCULAR HGB CONC 32.5 % (32.0-36.0); MONO % 11.8 % (0.0-8.0); NEUT % 55.9 % (16.0-70.0); PLATELET COUNT 475 TH/MM3 (150-450); RED BLOOD COUNT 3.41 MIL/MM3 (4.50-5.90); RED CELL DISTRIBUTION WIDTH 17.6 % (11.6-17.2); WHITE BLOOD COUNT 8.9 TH/MM3 (4.0-11.0)
[2016-09-09 21:37] VITALS: BP 189/84; PULSE 73; RESP 16; O2SAT 99
--- NOTE | 2016-09-09 21:40 | RADRPT ---
EXAM DATE/TIME: 09/09/2016 21:03 [facility] COMPARISON: CHEST SINGLE AP, October 05, 2014, 4:32. INDICATIONS : Shortness of breath MEDICAL HISTORY : Hypertension. Cardiovascular disease. SURGICAL HISTORY : Splenectomy. ENCOUNTER: Initial ACUITY: 1 day PAIN SCORE: 0/10 LOCATION: Bilateral chest FINDINGS: A single view of the chest demonstrates right apical scarring and pleural thickening similar to Sepus t 2014. Previous endotracheal tube from July has been removed. There is no new consolidation. Lungs a re mildly hyperinflated. Heart size normal. CONCLUSION: 1. Apical scarring on the right similar to September 2014. No active disease. Delta Anderson MD on September 09, 2016 at 21:36 Board Certified Radiologist. This report was verified electronically.
[2016-09-09 21:56] LABS: BICARBONATE 32.9 MEQ/L (21.0-32.0); POTASSIUM 3.2 MEQ/L (3.5-5.1)
[2016-09-09] MEDS ORDERED: ENALAPRILAT 2.5 MG/2 ML VIAL IV PUSH ONE (22:45)
[2016-09-09] MEDS ORDERED: ASPIRIN 325 MG TAB PO ONE (22:45)
[2016-09-09] MEDS ORDERED: POTASSIUM CHLORIDE 20 MEQ CONTROLLED RELEASE TAB PO ONE (23:15)
--- NOTE | 2016-09-09 23:25 | HHI.HP ---
HPI Service [facility] Primary Care Physician No Primary Care Physician Admission Diagnosis SOB, elevated troponin, hypokalemia Diagnoses: (1) ACS (acute coronary syndrome) Diagnosis: Principal (2) Hypokalemia Diagnosis: Principal (3) HTN (hypertension) Diagnosis: Principal (4) Alcohol abuse Diagnosis: Principal (5) Tobacco abuse Diagnosis: Principal Travel History International Travel<30 Days: No Contact w/Intl Traveler <30 Da: No Traveled to Known Affected Are: No History of Present Illness This is a 56-year-old Homeless male with a PMH of HTN, Anxiety, Depression, Hyperlipidemia, CHF (Echo 08/01/16 w/ EF 35-40%, Grade 2 Diastolic Dysfuntion), Alcohol Abuse, Tobacco Abuse and Noncompliance presents the ER with complaints of chest pain. Has presented to the ER on multiple occasions in the last 1wk for various complaints including abdominal pain, bug bite to elbow, headache and elevated BP. Today, arrives w/ complaints of chest pain and associated SOB starting approx 1hr prior to arrival. Denies fever, chills, cough or sick contacts. On arrival, BP 189/94, HR 73, O2 sat 99% on RA, Afebrile. CBC at baseline. K+ 3.2. Troponin 0.12. EKG w/ significant abnormality, however similar in comparison to previous EKG. Recent admit 07/29/16 w/ prolonged hospitalization for Alcohol Withdrawal w/ subsequent respiratory failure s/p intubation/extubation, SHANTELLE, Elevated Trop s/p eval by Cardiology w/ recommendation for medical management, Echo 08/01/16 w/ EF 35-40%, Grade 2 Diastolic Dysfunction and completely occluded Right ICA s/p eval by Vasc Sx w/ no surgical intervention indicated. Pt ultimately LEFT AMA on 08/30/16. Review of Systems Except as stated in HPI: all other systems reviewed are Neg ROS: 14 point review of systems otherwise negative. Past Family Social History Past Medical History PMH: HTN, Anxiety, Depression, Hyperlipidemia, CHF (Echo 08/01/16 w/ EF 35-40%, Grade 2 Diastolic Dysfuntion), Alcohol Abuse, Tobacco Abuse and Noncompliance Past Surgical History PAST SURGICAL HISTORY: Right Ankle Surgery, Chest Tube, Retina Allergies: Coded Allergies: No Known Allergies (Verified , 09/09/16) Family History PAST FAMILY HISTORY: Reviewed. No h/o DM or CAD Social History PAST SOCIAL HISTORY: History of alcohol abuse, denies recent ingestion. Smokes 1ppd. Negative for drugs. Physical Exam Vital Signs Vital Signs Date Time Temp Pulse Resp B/P Pulse Ox O2 Delivery O2 Flow Rate FiO2 09/09/16 21:37 73 16 189/84 99 09/09/16 20:59 98 Room Air 09/09/16 20:52 98.4 94 22 173/82 99 Physical Exam PE: GENERAL: Middle-aged thin white male in no acute distress. HEENT: PERRLA, EOMI. No scleral icterus or conjunctival pallor. No lid lag or facial droop. CARDIOVASCULAR: Regular rate and rhythm. No obvious murmurs to auscultation. No chest tenderness to palpation. RESPIRATORY: No obvious rhonchi or wheezing. Clear to auscultation. Breath sounds equal bilaterally. GASTROINTESTINAL: Abdomen soft, non-tender, nondistended. BS normal. MUSCULOSKELETAL: Extremities without clubbing, cyanosis, or edema. No obvious deformities. NEUROLOGICAL: Awake, alert and oriented x4. No focal neurologic deficits. Moving both upper and lower extremities spontaneously. Laboratory Laboratory Tests Test 09/09/16 21:05 White Blood Count 8.9 Red Blood Count 3.41 Hemoglobin 9.4 Hematocrit 29.0 Mean Corpuscular Volume 85.1 Mean Corpuscular Hemoglobin 27.7 Mean Corpuscular Hemoglobin 32.5 Concent Red Cell Distribution Width 17.6 Platelet Count 475 Mean Platelet Volume 7.2 Neutrophils (%) (Auto) 55.9 Lymphocytes (%) (Auto) 26.1 Monocytes (%) (Auto) 11.8 Eosinophils (%) (Auto) 4.8 Basophils (%) (Auto) 1.4 Neutrophils # (Auto) 4.9 Lymphocytes # (Auto) 2.3 Monocytes # (Auto) 1.0 Eosinophils # (Auto) 0.4 Basophils # (Auto) 0.1 CBC Comment DIFF FINAL Differential Comment Sodium Level 134 Potassium Level 3.2 Chloride Level 93 Carbon Dioxide Level 32.9 Anion Gap 8 Blood Urea Nitrogen 37 Creatinine 1.20 Estimat Glomerular Filtration 63 Rate Random Glucose 100 Calcium Level 8.6 Troponin I 0.12 Result Diagram: 09/09/16210409/09/162104 Assessment and Plan Problem List: (1) ACS (acute coronary syndrome) ICD Code: I24.9 Status: Acute (2) Hypokalemia ICD Code: E87.6 Status: Acute (3) HTN (hypertension) ICD Code: I10 Status: Acute (4) Alcohol abuse ICD Code: F10.10 Status: Chronic (5) Tobacco abuse ICD Code: Z72.0 Status: Chronic Assessment and Plan A/P: 1. ACS: c/o acute onset of chest pain/SOB approx 1hr prior to arrival, EKG w/ significant abnormality, similar in comparison to previous EKG. Trop 0.12, previously 2.45 on recent admit, s/p eval by Cardiology w/ recommendation for medical management. Currently chest pain free. Check serial cardiac enzymes. Cardiology consulted by ER physician. Resume home ASA, Statin, B-terry. NTG/ Morphine prn if needed. CXR w/ no acute findings, images reviewed by me. 2. Hypokalemia: K+ 3.2, s/p replacement in ER, will recheck in am. 3. HTN: Uncontrolled. Secondary to non-compliance w/ medications. S/p Coreg , Norvasc in ER w/ improvement. Resume home medications, monitor BP. 4. Alcohol Abuse: h/o Alcohol Abuse w/ recent admit for Alcohol Withdrawal, denies recent ingestion. Will start CIWA for possible withdrawal, Seizure Precautions, MVT/Thiamine/Folate replacement. 5. Tobacco Abuse: Pt counselled. Ativan prn. 6. DVT Prophylaxis: Lovenox 7. Social work for d/c planning as needed. 8. Case discussed w/ ER physician at length. Physician Certification 2 Midnight Certification Type: Admission for Inpatient Services Order for Inpatient Services The services are ordered in accordance with Medicare regulations or non- Medicare payer requirements, as applicable. In the case of services not specified as inpatient-only, they are appropriately provided as inpatient services in accordance with the 2-midnight benchmark. Estimated LOS (days): 2 days is the estimated time the patient will need to remain in the hospital, assuming treatment plan goals are met and no additional complications. Post-Hospital Plan: Not yet determined Nancy Macias MD Sep 09, 2016 23:25
[2016-09-09] MEDS ORDERED: BISACODYL 10 MG SUPP RECTAL PRN (23:30)
[2016-09-09] MEDS ORDERED: ONDANSETRON HCL 4 MG/2 ML VIAL IVP PRN (23:30)
[2016-09-09] MEDS ORDERED: SODIUM CHLORIDE 0.9% FLUSH 10 ML FLUSH IV FLUSH PRN (23:30)
[2016-09-09] MEDS ORDERED: MORPHINE SULFATE 4 MG/ML INJ IV PRN (23:30)
[2016-09-09] MEDS ORDERED: MAGNESIUM HYDROXIDE SUSP 30 ML CUP PO PRN (23:30)
[2016-09-09] MEDS ORDERED: LACTULOSE SYRUP 20 GM/30 ML CUP PO PRN (23:30)
[2016-09-09] MEDS ORDERED: ACETAMINOPHEN/HYDROcodone 325 MG/5 MG TAB PO PRN (23:30)
[2016-09-09] MEDS ORDERED: ACETAMINOPHEN 325 MG TAB PO PRN (23:30)
[2016-09-09] MEDS ORDERED: SENNOSIDES 8.6 MG TAB PO PRN (23:30)
[2016-09-09 23:44] VITALS: BP_SYST 115; BP_SYST 93; BP_DIAS 53; BP_DIAS 59; PULSE 67; RESP 20; O2SAT 99
[2016-09-10] VITALS (17 sets, daily range): BP systolic 116–139; BP diastolic 59–68; PULSE 59–74; RESP 12–16; TEMP 96.5–98.5; O2SAT 98–100
[2016-09-10] MEDS: ENOXAPARIN SODIUM 40 MG/0.4 ML SYRINGE SQ SCH ×2 (00:23→22:11)
[2016-09-10] MEDS ORDERED: HALOPERIDOL LACTATE 5 MG/ML AMP IM PRN (02:15)
[2016-09-10] MEDS ORDERED: LORazepam 2 MG TAB PO PRN (02:15)
[2016-09-10] MEDS ORDERED: LORazepam 1 MG TAB PO PRN (02:15)
[2016-09-10] MEDS ORDERED: FLUMAZENIL 0.5 MG/5 ML VIAL IV PUSH PRN (02:15)
[2016-09-10] MEDS ORDERED: LORazepam 2 MG/ML VIAL IV PUSH PRN ×4 (02:15)
[2016-09-10 05:23] LABS: AUTOMATED NEUTROPHIL # 4.6 TH/MM3 (1.8-7.7); BASOPHIL # 0.1 TH/MM3 (0-0.2); BASOPHIL % 1.7 % (0.0-2.0); EOSINOPHIL # 0.4 TH/MM3 (0-0.4); EOSINOPHIL % 5.4 % (0.0-4.0); HEMATOCRIT 29.5 % (39.0-51.0); HEMO FLAGS DIFF FINAL; LYMPHOCYTE # 2.1 TH/MM3 (1.0-4.8); MEAN CELL VOLUME 85.8 FL (80.0-100.0); MEAN CORPUSCULAR HEMOGLOBIN 27.5 PG (27.0-34.0); MEAN CORPUSCULAR HGB CONC 32.1 % (32.0-36.0); MONO % 9.3 % (0.0-8.0); NEUT % 57.6 % (16.0-70.0); PLATELET COUNT 489 TH/MM3 (150-450); RED BLOOD COUNT 3.44 MIL/MM3 (4.50-5.90); RED CELL DISTRIBUTION WIDTH 18.2 % (11.6-17.2); WHITE BLOOD COUNT 8.1 TH/MM3 (4.0-11.0)
[2016-09-10 05:46] LABS: ANION GAP 8 MEQ/L (5-15); AST (GOT) 21 U/L (15-37); BICARBONATE 29.4 MEQ/L (21.0-32.0); BLOOD UREA NITROGEN 36 MG/DL (7-18); CHLORIDE 97 MEQ/L (98-107); GLOMERULAR FILTRATION RATE 60 ML/MIN (>89); POTASSIUM 3.2 MEQ/L (3.5-5.1); SODIUM (NA) 134 MEQ/L (136-145)
[2016-09-10 05:48] LABS: ALT (GPT) 22 U/L (12-78)
[2016-09-10 05:49] LABS: ALKALINE PHOSPHATASE 100 U/L (45-117); TOTAL BILIRUBIN ADULT 0.3 MG/DL (0.2-1.0)
[2016-09-10] MEDS: ASPIRIN EC 81 MG TABEC PO SCH (08:24)
[2016-09-10] MEDS: THIAMINE HCL 100 MG TAB PO SCH (08:24)
[2016-09-10] MEDS: FOLIC ACID 1 MG TAB PO SCH (08:24)
[2016-09-10] MEDS: MULTIVITAMINS/MINERALS THERAPEUTIC TAB PO SCH (08:24)
[2016-09-10] MEDS: CARVEDILOL 3.125 MG TAB PO SCH ×2 (08:24→22:12)
[2016-09-10] MEDS: DOCUSATE SODIUM 50 MG/SENNA 8.6 MG TAB PO SCH ×2 (08:24→22:11)
[2016-09-10] MEDS: FUROSEMIDE 20 MG TAB PO SCH ×3 (08:24→21:00)
[2016-09-10] MEDS: SODIUM CHLORIDE 0.9% FLUSH 10 ML FLUSH IV FLUSH SCH ×2 (08:25→21:00)
--- NOTE | 2016-09-10 08:27 | HHI.PR ---
Subjective Remarks Follow-up and chest pain shortness of breath. No acute cause overnight, patient is more and says he has no shortness of breath or chest pain. Does not hurt to take a deep breath. Objective Vital Signs Date Time Temp Pulse Resp B/P Pulse Ox O2 Delivery O2 Flow Rate FiO2 09/10/16 07:01 59 09/10/16 04:30 98.5 61 12 122/59 98 09/10/16 01:10 96.5 63 14 116/60 98 09/09/16 23:44 67 20 115/59 99 Room Air 09/09/16 21:37 73 16 189/84 99 09/09/16 20:59 98 Room Air 09/09/16 20:52 98.4 94 22 173/82 99 I/O 09/09/16 09/09/16 09/09/16 09/10/16 09/10/16 09/10/16 07:00 15:00 23:00 07:00 15:00 23:00 Intake Total 0 ml Output Total 0 ml Balance 0 ml Intake Oral 0 ml Output Urine Total 0 ml Result Diagram: 09/10/1642909/10/16429 Imaging Last Impressions Chest X-Ray 09/09/162055 Signed Impressions: Service Date/Time: Friday, September 09, 2016 21:03 - CONCLUSION: 1. Apical scarring on the right similar to September 2014. No active disease. Delta Anderson MD Objective Remarks GENERAL: Sleeping comfortably, easily awoken EYES: No scleral icterus. No injection or drainage. CARDIOVASCULAR: Regular rate and rhythm without murmurs, gallops, or rubs. RESPIRATORY: Breath sounds equal and clear bilaterally. No accessory muscle use. No chest splinting noted GASTROINTESTINAL: Abdomen soft, non-tender, nondistended. MUSCULOSKELETAL: No cyanosis, or edema. Skin: Left leg wrapped in dressing, one unraveled, noted a pressure ulcer on left heel at least a stage III. A/P Assessment and Plan A/P: 1. Chest pain/shortness of breath in setting of elevated troponin and severe hypertension on presentation -currently symptom-free. Trop 0.12, no repeat - ordering STAT repeat at this time. previously 2.45 on recent admit, s/p eval by Cardiology w/ recommendation for medical management. Cardiac enzymes have been negative, cardiology recommendations pending. Continue home ASA, Statin, B- terry. Zofia scan from June of this year did not show any significant abnormal findings. Current overall impression is acute coronary syndrome versus hypertensive emergency. 2. Hypokalemia: K+ 3.2, s/p replacement in ER, will recheck in am. 3. HTN: Uncontrolled. Secondary to non-compliance w/ medications. continue home medications, monitor BP. 4. Alcohol Abuse: h/o Alcohol Abuse w/ recent admit for Alcohol Withdrawal, denies recent ingestion. Will start CIWA for possible withdrawal, Seizure Precautions, MVT/Thiamine/Folate replacement. 5. Tobacco Abuse: Pt counselled. Ativan prn. 6. DVT Prophylaxis: Lovenox 7. Pressure ulcer, ordering float heels - unsure of onset David Schafer MD Sep 10, 2016 08:27
--- NOTE | 2016-09-10 11:53 | MB ---
cc: HELEN PALMER MD DATE OF CONSULTATION: 09/10/2016. REASON FOR CONSULTATION: Elevated troponin. HISTORY OF PRESENT ILLNESS: The patient is a pleasant though unfortunate 56-year-old gentleman who is homeless and who has had multiple admissions for congestive heart failure, chest pain and elevated troponins, most recently several weeks ago. The patient presents on this occasion with multiple symptoms including abdominal pain, headache, elevated blood pressure, shortness of breath and chest pain. The patient was admitted due to his mildly elevated troponins. He says he is currently feeling better except for general tiredness. He denies any current chest pain, shortness of breath, lightheadedness or dizziness. He does admit to not being able to take medications as he could not pay for them. He says he is living on the streets. PAST MEDICAL HISTORY: As above. CURRENT MEDICATIONS: 1. Atorvastatin 20 milligrams at bedtime. 2. Norvasc 10 milligrams daily. 3. Aspirin 81 milligrams daily. 4. Coreg 3.125 milligrams q. 12. 5. Lasix 20 milligrams twice a day. 6. Folate. 7. Thiamine. ALLERGIES: NO KNOWN DRUG ALLERGIES. PHYSICAL EXAMINATION: VITAL SIGNS: Afebrile, pulse 65, respiratory rate 16, blood pressure 136/65, satting 100. GENERAL: A pleasant thin gentleman in no distress. NECK: No jugular venous distention. LUNGS: Decreased breath sounds in all bras[place]. CARDIOVASCULAR: Distant heart sounds. No murmurs appreciated. ABDOMEN: Benign. EXTREMITIES: No edema. LABORATORY DATA: Sodium 134, potassium 3.2, chloride 97, bicarb 29.4, BUN 36. ____.25. Troponins are 0.12, 0.14. Previous troponins were as high as 3.45 in July of 2016 IMAGING STUDIES: Chest x-ray showed apical scarring with no acute disease. Nuclear stress test from June 12, 2016 showed no ischemia with an ejection fraction of around 20%. IMPRESSION: 1. Elevated troponin. The patient has a chronically elevated troponin likely due to intermittent chronic systolic congestive heart failure. He is currently nontoxic-appearing and breathing comfortably on room air. He has been well worked up in the past and I do not feel that he requires any further ischemic workup. He is on oral medications. At this point, his cardiomyopathy is well medically controlled with the exception of the absence of an TAE inhibitor which I will add. He is not currently a candidate for a defibrillator due to his noncompliance and lack of followup. First he would need to improve compliance with medications to try to improve his ejection fraction. I will be available on as-needed basis. Please call with any further questions. MD GILDA Vargas/NUHA /11:26 AM /11:39 AM
[2016-09-10] MEDS: LISINOPRIL 5 MG TAB PO SCH (12:33)
--- NOTE | 2016-09-10 17:24 | EKG ---
Date Performed: 09/09/2016 Time Performed: 21:01:38 PTAGE: 56 years EKG: ATRIAL FIBRILLATION ST DEVIATION AND MODERATE T-WAVE ABNORMALITY, CONSIDER LATERAL ISCHEMIA ST DEVIATION AND MARKED T-WAVE ABNORMALITY, CONSIDER INFERIOR ISCHEMIA ABNORMAL ECG Since PREVIOUS TRACING , no significant change noted PREVIOUS TRACIN09/07/2016 06.22 DOCTOR: Ben De Luna Interpretating Date/Time 09/10/2016 17:23:20
[2016-09-10] MEDS ORDERED: ATORVASTATIN 20 MG TAB PO SCH (21:00)
[2016-09-11 00:46] VITALS: BP 131/65; PULSE 74; TEMP 97.6; O2SAT 100
[2016-09-11 03:00] VITALS: PULSE 61
[2016-09-11 04:05] VITALS: BP 119/53; PULSE 68; TEMP 98.5; O2SAT 100
[2016-09-11 07:30] VITALS: BP 151/78; PULSE 68; RESP 16; TEMP 98; O2SAT 98
[2016-09-11 08:00] VITALS: PULSE 66
[2016-09-11] MEDS: LISINOPRIL 5 MG TAB PO SCH (09:08)
[2016-09-11] MEDS: THIAMINE HCL 100 MG TAB PO SCH (09:08)
[2016-09-11] MEDS: FUROSEMIDE 20 MG TAB PO SCH (09:09)
[2016-09-11] MEDS: ASPIRIN EC 81 MG TABEC PO SCH (09:09)
[2016-09-11] MEDS: MULTIVITAMINS/MINERALS THERAPEUTIC TAB PO SCH (09:09)
[2016-09-11] MEDS: CARVEDILOL 3.125 MG TAB PO SCH (09:09)
[2016-09-11] MEDS: DOCUSATE SODIUM 50 MG/SENNA 8.6 MG TAB PO SCH (09:09)
[2016-09-11] MEDS: FOLIC ACID 1 MG TAB PO SCH (09:09)
[2016-09-11] MEDS ORDERED: POTA-243 PO (09:37)
[2016-09-11] MEDS ORDERED: ASPI81TA11 PO (09:37)
[2016-09-11] MEDS ORDERED: FURO20TA PO (09:37)
[2016-09-11] MEDS ORDERED: ATOR20TA15 PO (09:37)
[2016-09-11] MEDS ORDERED: LISI-519 PO (09:39)
--- NOTE | 2016-09-11 09:41 | HHI.DCPOC ---
Discharge Care Plan Diagnosis: (1) Cardiomyopathy Your Health Problems Are: Chest Pain Shortness of Breath Goals to Promote Your Health * To prevent worsening of your condition and complications * To maintain your health at the optimal level Taking her medications for blood pressure and heart failure as we discussed, in addition to any other home medications were taking the exception of amlodipine which has been discontinued. Directions to Meet Your Goals Take your medications as prescribed Follow your dietary instruction Follow activity as directed Keep your appointments as scheduled Take your immunizations and boosters as scheduled If your symptoms worsen call your PCP, if no PCP go to Urgent Care Center or Emergency Room Smoking is Dangerous to Your Health. Avoid second hand smoke Call the 24-hour hour crisis hotline for domestic abuse at David Schafer MD Sep 11, 2016 09:41
--- NOTE | 2016-09-11 09:47 | HHI.DS ---
Discharge Summary Admission Date Sep 09, 2016 at 23:15 Discharge Date: Sep 11, 2016 Admitting Diagnosis SOB, elevated troponin, hypokalemia (1) ACS (acute coronary syndrome) ICD Code: I24.9 (2) Hypokalemia ICD Code: E87.6 (3) HTN (hypertension) ICD Code: I10 (4) Alcohol abuse ICD Code: F10.10 (5) Tobacco abuse ICD Code: Z72.0 (6) Chronic systolic heart failure ICD Code: I50.22 Diagnosis: Principal Procedures None Brief History - From Admission This is a 56-year-old Homeless male with a PMH of HTN, Anxiety, Depression, Hyperlipidemia, CHF (Echo 08/01/16 w/ EF 35-40%, Grade 2 Diastolic Dysfuntion), Alcohol Abuse, Tobacco Abuse and Noncompliance presents the ER with complaints of chest pain. Has presented to the ER on multiple occasions in the last 1wk for various complaints including abdominal pain, bug bite to elbow, headache and elevated BP. Today, arrives w/ complaints of chest pain and associated SOB starting approx 1hr prior to arrival. Denies fever, chills, cough or sick contacts. On arrival, BP 189/94, HR 73, O2 sat 99% on RA, Afebrile. CBC at baseline. K+ 3.2. Troponin 0.12. EKG w/ significant abnormality, however similar in comparison to previous EKG. Recent admit 07/29/16 w/ prolonged hospitalization for Alcohol Withdrawal w/ subsequent respiratory failure s/p intubation/extubation, SHANTELLE, Elevated Trop s/p eval by Cardiology w/ recommendation for medical management, Echo 08/01/16 w/ EF 35-40%, Grade 2 Diastolic Dysfunction and completely occluded Right ICA s/p eval by Vasc Sx w/ no surgical intervention indicated. Pt ultimately LEFT AMA on 08/30/16. CBC/BMP: 09/10/16 0430 09/10/16 0430 Significant Findings Laboratory Tests Test 09/09/16 09/10/16 09/10/16 21:05 04:30 11:08 Red Blood Count 3.41 MIL/MM3 3.44 MIL/MM3 (4.50-5.90) (4.50-5.90) Hemoglobin 9.4 GM/DL 9.5 GM/DL (13.0-17.0) (13.0-17.0) Hematocrit 29.0 % 29.5 % (39.0-51.0) (39.0-51.0) Red Cell Distribution Width 17.6 % 18.2 % (11.6-17.2) (11.6-17.2) Platelet Count 475 TH/MM3 489 TH/MM3 (150-450) (150-450) Monocytes (%) (Auto) 11.8 % 9.3 % (0.0-8.0) (0.0-8.0) Eosinophils (%) (Auto) 4.8 % (0.0-4.0) 5.4 % (0.0-4.0) Monocytes # (Auto) 1.0 TH/MM3 (0-0.9) Sodium Level 134 MEQ/L 134 MEQ/L (136-145) (136-145) Potassium Level 3.2 MEQ/L 3.2 MEQ/L (3.5-5.1) (3.5-5.1) Chloride Level 93 MEQ/L 97 MEQ/L (98-107) (98-107) Carbon Dioxide Level 32.9 MEQ/L (21.0-32.0) Blood Urea Nitrogen 37 MG/DL (7-18) 36 MG/DL (7-18) Estimat Glomerular Filtration 63 ML/MIN (>89) 60 ML/MIN (>89) Rate Troponin I 0.12 NG/ML 0.14 NG/ML 0.16 NG/ML (0.02-0.05) (0.02-0.05) (0.02-0.05) Calcium Level 8.3 MG/DL (8.5-10.1) Total Protein 5.8 GM/DL (6.4-8.2) Albumin 2.6 GM/DL (3.4-5.0) PE at Discharge GENERAL: Resting comfortably, in no acute distress EYES: No scleral icterus. No injection or drainage. CARDIOVASCULAR: Regular rate and rhythm without murmurs, gallops, or rubs. RESPIRATORY: Breath sounds equal and clear bilaterally. No accessory muscle use. GASTROINTESTINAL: Abdomen soft, non-tender, nondistended. MUSCULOSKELETAL: No cyanosis, or edema. Hospital Course Patient was admitted and had his cardiac enzymes trended which were positive. However his chest pain improved and ultimately resolved in less than 24 hours. Cardiology was consulted and continued and they concluded that the patient's chest pain was likely from chronic systolic heart failure and that he needed to optimize his medical management primarily through compliance on his end. Most recent echo showed an EF of 35-40%. Patient was started on lisinopril and was instructed to take the remaining of his home medications and to follow-up with the primary care provider. He is informed that down the line if his heart function did not improve with medication therapy, then he would be a better candidate for an ICD. Patient has met maximum benefit from hospitalization and is clinically stable for discharge. Pt Condition on Discharge: Good Discharge Disposition: Discharge Home Discharge Time: <= 30 minutes Discharge Instructions DIET: Follow Instructions for: Heart Healthy Diet Activities you can perform: Regular-No Restrictions Follow up Referrals: Cardiology - 1 Month PCP Follow-up - 10 Days New Medications: Lisinopril (Lisinopril) 5 Mg Tab 5 MG PO DAILY Blood Pressure Management #30 TAB Continued Medications: Aspirin DR (Aspirin EC) 81 Mg Tabdr 81 MG PO DAILY Blood Clot Prevention #30 Ref 0 TAB (This prescription has been renewed) Atorvastatin (Atorvastatin) 20 Mg Tab 20 MG PO HS Cholesterol Management #30 Ref 0 TAB (This prescription has been renewed) Carvedilol (Coreg) 3.125 Mg Tab 3.125 MG PO Q12HR CAD #60 Ref 0 TAB Furosemide (Furosemide) 20 Mg Tab 20 MG PO BID Cardiomyopathy #60 Ref 0 TAB (This prescription has been renewed) Potassium Chloride ER (Potassium Chloride ER) 10 Meq Cap 10 MEQ PO DAILY Electrolyte Replacement #7 Ref 0 CAP Potassium Chloride ER (Klor-Con 10) 10 Meq Tab 10 MEQ PO DAILY Electrolyte Replacement #30 Ref 0 TAB (This prescription has been renewed) Discontinued Medications: Amlodipine (Norvasc) 10 Mg Tab 10 MG PO DAILY Blood Pressure Management #30 Ref 2 TAB Amlodipine (Amlodipine) 10 Mg Tab 10 MG PO DAILY Blood Pressure Management #30 Ref 0 TAB Amlodipine (Amlodipine) 10 Mg Tab 10 MG PO DAILY Blood Pressure Management #30 Ref 0 TAB David Schafer MD Sep 11, 2016 09:47
[2016-09-11] MEDS ORDERED: POTASSIUM CHLORIDE 10 MEQ CONTROLLED RELEASE TAB PO ONE (10:00)
[2016-09-11] MEDS ORDERED: CARV3.125 PO (11:30)
[2016-09-11 12:06] VITALS: BP 151/78; PULSE 69; RESP 16; TEMP 98.5; O2SAT 99
== END 2016-09-11 14:54 | disposition home or self-care (01) | DRG 291 ==
LOC: NEPE 20:48 → NEDA 23:15 → HCIS 09-10 00:46 → HCIN 09-10 20:32
PROVIDERS: ADMIT Hospitalist; ATTEND Hospitalist
DX: I11.0 Hypertensive heart disease with heart failure (principal); L89.623 Pressure ulcer of left heel, stage 3; R64 Cachexia; I24.8 Other forms of acute ischemic heart disease; Z68.1 Body mass index [BMI] 19.9 or less, adult; I50.22 Chronic systolic (congestive) heart failure; F17.210 Nicotine dependence, cigarettes, uncomplicated; M19.90 Unspecified osteoarthritis, unspecified site; I42.9 Cardiomyopathy, unspecified; F41.9 Anxiety disorder, unspecified; F32.9 Major depressive disorder, single episode, unspecified; E87.6 Hypokalemia; F10.10 Alcohol abuse, uncomplicated; E78.5 Hyperlipidemia, unspecified; Z59.0 Homelessness; Z79.82 Long term (current) use of aspirin; Z91.14 Patient's other noncompliance with medication regimen; Z86.73 Personal history of transient ischemic attack (TIA), and cerebral infarction without residual deficits
CPT/HCPCS: 71010; 80048; 80053; 82948; 84484; 85025; 93005; 96374; 96375; J1650

== ENCOUNTER 2016-09-11 18:26 | Emergency (ER) | payer OTHER ==
[~2016-09-11] VITALS: Ht 177.8 cm; Wt 60.0 kg
[~2016-09-11 18:26] MED LIST changes: +LISI-519 PO
[2016-09-11 18:44] VITALS: BP 133/63; PULSE 92; RESP 18; TEMP 98.6; O2SAT 99
[2016-09-11 18:47] VITALS: BP 133/63; PULSE 88; RESP 18; TEMP 98.6; O2SAT 100
--- NOTE | 2016-09-11 19:07 | PD ---
HPI Chief Complaint: Dizziness Time Seen by Provider: 19:00 Travel History International Travel<30 days: No Contact w/Intl Traveler<30days: No Traveled to known affect area: No History of Present Illness HPI 56-year-old male with history of homelessness, hypertension, anxiety, depression , hyperlipidemia, CHF, brought in by ambulance for evaluation of dizziness. The patient was admitted to the hospital 2 days ago complaining of chest pain. His cardiac enzymes were slightly elevated and he was evaluated by cardiology who felt that his chest pain and elevation in cardiac enzymes were secondary to CHF/diastolic dysfunction. Patient reports that he was discharged today on stool softeners and while using a public restroom he had loose bowel movements. He then became dizzy and laid on the floor. He found it difficult to stand up. 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 No new deficits today. Currently the patient states he feels generalized weakness. No chest pain or dyspnea. No abdominal pain. No fevers or chills. He tells me that he has been homeless since May and it is been tough for him to get a good night' s rest. PFSH Past Medical History Hx Anticoagulant Therapy: Yes (ASPIRIN ) Arthritis: Yes (GENERALIZED) Autoimmune Disease: No Blood Disorders: No Anxiety: Yes Depression: Yes Heart Rhythm Problems: No Cancer: No Cardiovascular Problems: Yes (htn) High Cholesterol: Yes Cerebrovascular Accident: Yes (CVA 6 weeks ago) Diabetes: No Diminished Hearing: No Endocrine: No Gastrointestinal Disorders: No Genitourinary: No Hypertension: Yes Immune Disorder: No Implanted Vascular Access Dvce: Yes Musculoskeletal: Yes Neurologic: No Psychiatric: Yes Reproductive: No Respiratory: Yes Immunizations Current: No Thyroid Disease: No Tetanus Vaccination: < 5 Years Influenza Vaccination: Yes ?: Not Past Surgical History 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13) Thoracic Surgery: Yes (CHEST TUBE INSERTION RIGHT LUNG-07/01/08) Other Surgery: Yes (RIGHT ANKLE, 8 SCREWS AND PLATE) Social History Alcohol Use: No Tobacco Use: Yes (1 PPD) Substance Use: No Allergies-Medications (Allergen,Severity, Reaction): Coded Allergies: No Known Allergies (Verified , 09/09/16) Reported Meds & Prescriptions Reported Meds & Active Scripts Active Coreg (Carvedilol) 3.125 Mg Tab 3.125 Mg PO Q12HR Lisinopril 5 Mg Tab 5 Mg PO DAILY Atorvastatin (Atorvastatin Calcium) 20 Mg Tab 20 Mg PO HS Klor-Con 10 (Potassium Chloride) 10 Meq Tab 10 Meq PO DAILY Furosemide 20 Mg Tab 20 Mg PO BID Aspirin EC (Aspirin) 81 Mg Tabdr 81 Mg PO DAILY Potassium Chloride ER (Potassium Chloride) 10 Meq Cap 10 Meq PO DAILY Review of Systems Except as stated in HPI: all other systems reviewed are Neg Physical Exam Narrative GENERAL: Well-developed, thin, sleeping comfortably, no apparent distress. SKIN: Focused skin assessment warm/dry. No lacerations, abrasions, or ecchymosis. No pallor. HEAD: Atraumatic. Normocephalic. EYES: Pupils equal and round. No scleral icterus. No injection or drainage. ENT: Mucous membranes pink and moist. NECK: Trachea midline. No JVD. CARDIOVASCULAR: Regular rate and rhythm. RESPIRATORY: No accessory muscle use. Clear to auscultation. Breath sounds equal bilaterally. GASTROINTESTINAL: Abdomen soft, non-tender, nondistended. MUSCULOSKELETAL: No obvious deformities. No clubbing. No cyanosis. No edema. NEUROLOGICAL: Awake and alert. No obvious cranial nerve deficits. Mild left upper and left lower extremity weakness. No focal deficits. Normal speech. PSYCHIATRIC: Appropriate mood and affect; insight and judgment normal. Data Data Last Documented VS Vital Signs Date Time Temp Pulse Resp B/P Pulse Ox O2 Delivery O2 Flow Rate FiO2 09/11/16 22:01 84 16 138/58 100 Room Air 09/11/16 18:47 98.6 Orders Complete Blood Count With Diff (09/11/16 19:03) Comprehensive Metabolic Panel (09/11/16 19:03) Iv Access Insert/Monitor (09/11/16 19:03) Ecg Monitoring (09/11/16 19:03) Oximetry (09/11/16 19:03) Sodium Chloride 0.9% Flush (Ns Flush) (09/11/16 19:15) Electrocardiogram (09/11/16 19:03) Alcohol (Ethanol) (09/11/16 19:03) Complete Blood Count With Diff (09/11/16 22:00) Labs Laboratory Tests Test 09/11/16 09/11/16 19:30 22:00 White Blood Count 8.7 TH/MM3 9.5 TH/MM3 Red Blood Count 2.92 MIL/MM3 2.97 MIL/MM3 Hemoglobin 8.2 GM/DL 8.1 GM/DL Hematocrit 25.1 % 25.4 % Mean Corpuscular Volume 86.1 FL 85.6 FL Mean Corpuscular Hemoglobin 28.0 PG 27.5 PG Mean Corpuscular Hemoglobin 32.5 % 32.1 % Concent Red Cell Distribution Width 17.6 % 17.5 % Platelet Count 427 TH/MM3 445 TH/MM3 Mean Platelet Volume 7.4 FL 7.5 FL Neutrophils (%) (Auto) 66.0 % 63.8 % Lymphocytes (%) (Auto) 19.2 % 21.8 % Monocytes (%) (Auto) 10.1 % 9.1 % Eosinophils (%) (Auto) 3.4 % 4.1 % Basophils (%) (Auto) 1.3 % 1.2 % Neutrophils # (Auto) 5.7 TH/MM3 6.1 TH/MM3 Lymphocytes # (Auto) 1.7 TH/MM3 2.1 TH/MM3 Monocytes # (Auto) 0.9 TH/MM3 0.9 TH/MM3 Eosinophils # (Auto) 0.3 TH/MM3 0.4 TH/MM3 Basophils # (Auto) 0.1 TH/MM3 0.1 TH/MM3 CBC Comment DIFF FINAL DIFF FINAL Differential Comment Sodium Level 135 MEQ/L Potassium Level 3.7 MEQ/L Chloride Level 98 MEQ/L Carbon Dioxide Level 33.5 MEQ/L Anion Gap 4 MEQ/L Blood Urea Nitrogen 40 MG/DL Creatinine 1.51 MG/DL Estimat Glomerular Filtration 48 ML/MIN Rate Random Glucose 102 MG/DL Calcium Level 7.7 MG/DL Total Bilirubin 0.1 MG/DL Aspartate Amino Transf 22 U/L (AST/SGOT) Alanine Aminotransferase 22 U/L (ALT/SGPT) Alkaline Phosphatase 106 U/L Total Protein 5.6 GM/DL Albumin 2.5 GM/DL Ethyl Alcohol Level LESS THAN 3 MG/DL MDM Medical Decision Making Medical Screen Exam Complete: Yes Emergency Medical Condition: Yes Medical Record Reviewed: Yes Interpretation(s) EKG is markedly abnormal, however is unchanged from prior. Sinus, rate 77, normal axis, normal intervals, T-wave inversions and ST depressions in inferior , anterior, and lateral leads, no ST segment elevations. Changes are likely secondary to the patient's CHF/chronic heart disease. He is not having chest pain today. Differential Diagnosis Metabolic abnormality, anemia, dehydration, dysrhythmia, malingering Narrative Course Initial vital signs show heart rate 92, blood pressure 133/63, pulse ox 99% on room air, oral temp of 98.6F. CBC is remarkable for hemoglobin 8.2, hematocrit 25.1. Patient has chronic anemia and this is around his baseline, although was about one point lower than it was 2 days ago. Rectal exam was performed and shows large external hemorrhoids/warty lesion, likely anal warts, heme-negative brown stool. CMP is remarkable for BUN 40, creatinine 1.51, GFR 48 which is only slightly worse than his baseline, calcium 7.7, albumin 2.5. Repeat CBC 3 hours after the first shows hemoglobin 8.1, hematocrit 25.4. On reassessment the patient is resting comfortably in a stretcher eating candy that he brought with him. Patient made aware of all findings. He is stable for discharge home. He will be given the information to the [facility] to follow-up with this week. He was informed on when to return to the emergency department. He verbalizes understanding and agreement with plan. [facility] Point of Care Internal Pos. & Neg. Controls: Passed Fecal Specimen Occult Blood: Negative Comment Heme-negative, brown stool. Diagnosis Primary Impression: Dizziness Additional Impression: Chronic anemia Referrals: [facility] 3 days Additional Instructions: Follow-up with a primary care physician or in the [facility] this week. To the emergency department for worsening symptoms or any other concerns. Disposition: 01 DISCHARGE HOME Condition: Stable Tom Hampton MD Sep 11, 2016 19:07
[2016-09-11] MEDS ORDERED: SODIUM CHLORIDE 0.9% FLUSH 10 ML FLUSH IV FLUSH PRN (19:15)
[2016-09-11 20:04] LABS: AUTOMATED NEUTROPHIL # 5.7 TH/MM3 (1.8-7.7); BASOPHIL # 0.1 TH/MM3 (0-0.2); BASOPHIL % 1.3 % (0.0-2.0); EOSINOPHIL # 0.3 TH/MM3 (0-0.4); EOSINOPHIL % 3.4 % (0.0-4.0); HEMATOCRIT 25.1 % (39.0-51.0); HEMO FLAGS DIFF FINAL; LYMPH % 19.2 % (9.0-44.0); LYMPHOCYTE # 1.7 TH/MM3 (1.0-4.8); MEAN CELL VOLUME 86.1 FL (80.0-100.0); MEAN CORPUSCULAR HGB CONC 32.5 % (32.0-36.0); MONO % 10.1 % (0.0-8.0); PLATELET COUNT 427 TH/MM3 (150-450); RED BLOOD COUNT 2.92 MIL/MM3 (4.50-5.90); RED CELL DISTRIBUTION WIDTH 17.6 % (11.6-17.2); WHITE BLOOD COUNT 8.7 TH/MM3 (4.0-11.0)
[2016-09-11 20:28] LABS: ANION GAP 4 MEQ/L (5-15); AST (GOT) 22 U/L (15-37); BICARBONATE 33.5 MEQ/L (21.0-32.0); BLOOD UREA NITROGEN 40 MG/DL (7-18); CHLORIDE 98 MEQ/L (98-107); GLOMERULAR FILTRATION RATE 48 ML/MIN (>89); POTASSIUM 3.7 MEQ/L (3.5-5.1); SODIUM (NA) 135 MEQ/L (136-145)
[2016-09-11 20:30] LABS: ALT (GPT) 22 U/L (12-78)
[2016-09-11 20:31] LABS: ALKALINE PHOSPHATASE 106 U/L (45-117); TOTAL BILIRUBIN ADULT 0.1 MG/DL (0.2-1.0)
[2016-09-11 22:01] VITALS: BP 138/58; PULSE 84; RESP 16; O2SAT 100
[2016-09-11 22:35] LABS: AUTOMATED NEUTROPHIL # 6.1 TH/MM3 (1.8-7.7); BASOPHIL # 0.1 TH/MM3 (0-0.2); BASOPHIL % 1.2 % (0.0-2.0); EOSINOPHIL # 0.4 TH/MM3 (0-0.4); EOSINOPHIL % 4.1 % (0.0-4.0); HEMATOCRIT 25.4 % (39.0-51.0); HEMO FLAGS DIFF FINAL; LYMPH % 21.8 % (9.0-44.0); LYMPHOCYTE # 2.1 TH/MM3 (1.0-4.8); MEAN CELL VOLUME 85.6 FL (80.0-100.0); MEAN CORPUSCULAR HEMOGLOBIN 27.5 PG (27.0-34.0); MEAN CORPUSCULAR HGB CONC 32.1 % (32.0-36.0); MONO % 9.1 % (0.0-8.0); NEUT % 63.8 % (16.0-70.0); PLATELET COUNT 445 TH/MM3 (150-450); RED BLOOD COUNT 2.97 MIL/MM3 (4.50-5.90); RED CELL DISTRIBUTION WIDTH 17.5 % (11.6-17.2); WHITE BLOOD COUNT 9.5 TH/MM3 (4.0-11.0)
--- NOTE | 2016-09-12 15:41 | EKG ---
Date Performed: 09/11/2016 Time Performed: 19:13:19 PTAGE: 56 years EKG: Sinus rhythm POSSIBLE LEFT ATRIAL ENLARGEMENT POSSIBLE RIGHT VENTRICULAR CONDUCTION DELAY LEFT VENTRICULAR HYPERT ROPHY AND ST-T CHANGE ABNORMAL ECG NO PREVIOUS TRACING DOCTOR: Piedad Head Interpretating Date/Time 09/12/2016 15:38:50
== END 2016-09-11 23:20 | disposition home or self-care (01) ==
LOC: NEPC 18:26
DX: D64.9 Anemia, unspecified (principal); R42 Dizziness and giddiness; I10 Essential (primary) hypertension; E78.5 Hyperlipidemia, unspecified; Z86.73 Personal history of transient ischemic attack (TIA), and cerebral infarction without residual deficits; M15.9 Polyosteoarthritis, unspecified; Z79.82 Long term (current) use of aspirin
CPT/HCPCS: 80053; 80307; 85025; 93005; 99284

== ENCOUNTER 2016-09-12 15:23 | Emergency (ER) | payer OTHER ==
[~2016-09-12] VITALS: Ht 177.8 cm; Wt 58.0 kg
[~2016-09-12 15:23] MED LIST changes: -AMLO10 PO; -AMLO10TA2 PO
--- NOTE | 2016-09-12 16:05 | PD ---
Physical Exam Time Seen by Provider: 16:05 Narrative 56 y/o male here with h/a. Vital signs reviewed. Seen at triage desk. Awaiting bed placement. [facility] Medical Record Reviewed: Yes Supervised Visit with FERNANDEZ: Marcelo West Sep 12, 2016 16:05
[2016-09-12 16:19] VITALS: BP 164/69; PULSE 73; RESP 15; TEMP 98.1; O2SAT 99
[2016-09-12] MEDS ORDERED: ACETAMINOPHEN 325 MG TAB PO ONE (17:45)
--- NOTE | 2016-09-12 17:45 | PD ---
HPI Chief Complaint: Headache Time Seen by Provider: 17:41 Travel History International Travel<30 days: No Contact w/Intl Traveler<30days: No Traveled to known affect area: No History of Present Illness HPI 56-year-old male presents emergency Department with complaint of headache that was throbbing in sensation. He says he thinks it may have been due to the heat. He denies headache at this time. He has history of stroke with left- sided weakness which he says his leg is getting stronger, and his current symptoms are unchanged. Denies fever, vomiting. He has not taken any medications or tried any treatments to alleviate his symptoms. Patient says he is homeless and cannot afford any medications. Symptoms are mild in severity. He has no known allergies. He has no other medical complaints. No other modifying factors or associated signs and symptoms. PFSH Past Medical History Hx Anticoagulant Therapy: Yes (ASPIRIN ) Arthritis: Yes (GENERALIZED) Autoimmune Disease: No Blood Disorders: No Anxiety: Yes Depression: Yes Heart Rhythm Problems: No Cancer: No Cardiovascular Problems: Yes High Cholesterol: Yes Cerebrovascular Accident: Yes (CVA 6 weeks ago) Diabetes: No Diminished Hearing: No Endocrine: No Gastrointestinal Disorders: No Genitourinary: No Hypertension: Yes Immune Disorder: No Implanted Vascular Access Dvce: Yes Musculoskeletal: Yes Neurologic: No Psychiatric: Yes Reproductive: No Respiratory: Yes Immunizations Current: No Thyroid Disease: No Past Surgical History 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13) Thoracic Surgery: Yes (CHEST TUBE INSERTION RIGHT LUNG-07/01/08) Other Surgery: Yes (RIGHT ANKLE, 8 SCREWS AND PLATE) Social History Alcohol Use: No Tobacco Use: Yes (1 PPD) Substance Use: No Allergies-Medications (Allergen,Severity, Reaction): Coded Allergies: No Known Allergies (Verified , 09/12/16) Reported Meds & Prescriptions Reported Meds & Active Scripts Active Coreg (Carvedilol) 3.125 Mg Tab 3.125 Mg PO Q12HR Lisinopril 5 Mg Tab 5 Mg PO DAILY Atorvastatin (Atorvastatin Calcium) 20 Mg Tab 20 Mg PO HS Klor-Con 10 (Potassium Chloride) 10 Meq Tab 10 Meq PO DAILY Furosemide 20 Mg Tab 20 Mg PO BID Aspirin EC (Aspirin) 81 Mg Tabdr 81 Mg PO DAILY Potassium Chloride ER (Potassium Chloride) 10 Meq Cap 10 Meq PO DAILY Review of Systems Except as stated in HPI: all other systems reviewed are Neg Physical Exam Narrative GENERAL: Well-nourished, well-developed patient, in no acute distress SKIN: Warm and dry. HEAD: Atraumatic. Normocephalic. No facial droop noted. Tongue midline. EYES: Pupils equal and round.. No scleral icterus. No injection or drainage. PERRLA. EOMI. ENT: Mucosa pink and moist. Airway patent. NECK: Trachea midline. No lymphadenopathy. CARDIOVASCULAR: Regular rate. RESPIRATORY: No accessory muscle use. GASTROINTESTINAL: Flat. MUSCULOSKELETAL: Left upper and lower extremity weakness noted. No obvious deformities. No clubbing. No cyanosis. No edema. NEUROLOGICAL: Awake and alert. Oriented 3. No obvious cranial nerve deficits. Motor grossly within normal limits. Normal speech. Moves all extremities. 5/5 strength to all extremities. PSYCHIATRIC: Appropriate mood and affect; insight and judgment normal. Data Data Last Documented VS Vital Signs Date Time Temp Pulse Resp B/P Pulse Ox O2 Delivery O2 Flow Rate FiO2 09/12/16 16:19 98.1 73 15 164/69 99 Orders Acetaminophen (Tylenol) (09/12/16 17:45) [facility] Medical Decision Making Medical Screen Exam Complete: Yes Emergency Medical Condition: Yes Medical Record Reviewed: Yes Differential Diagnosis Acute headache, migraine headache, malingering Narrative Course 56-year-old male with complaint of headache earlier today. He denies headache at this time. Patient has history of left-sided weakness secondary to history of stroke and his weakness is unchanged. I reviewed the patient's medical record and he had a CT scan of the head on September 05, 2016 with no acute findings and showing an old right frontal and parietal infarcts. He was also seen yesterday, September 11, 2016, and was worked up for dizziness. Patient would like a Tylenol before he is discharged. Tylenol administered in the ER. Instructed patient to follow up with [facility]. Instructed patient to follow up with primary care provider. Patient verbalizes understanding and agreement with treatment plan. Patient is medically cleared and stable for discharge. Discussed reasons to return to the emergency department. Patient agrees with treatment plan. The patients vital signs are stable and the patient is stable for outpatient follow-up and treatment. Patient discharged home, stable and in no acute distress. Diagnosis Primary Impression: Headache Qualified Code: R51 - Nonintractable headache, unspecified chronicity pattern , unspecified headache type Referrals: [facility] Primary Care Physician Patient Instructions: Acute Headache (ED), General Instructions Additional Instructions: Tylenol or ibuprofen as instructed and as needed for headache Keep well hydrated and drink plenty of fluids Follow-up with primary care provider Med/Other Pt SpecificInfo: No Meds Exist/No RX given Disposition: 01 DISCHARGE HOME Condition: Stable Lu Ayoub Sep 12, 2016 17:45
[2016-09-13] MEDS ORDERED: MECL1TAB42 PO (20:29)
[2016-10-27] MEDS ORDERED: LISI10TA3 PO ×2 (11:26→11:33)
[2016-10-27] MEDS ORDERED: CARV3.125 PO (11:33)
[2016-10-27] MEDS ORDERED: FERR325T20 PO (11:33)
[2016-10-27] MEDS ORDERED: FURO20TA PO (11:33)
[2016-10-27] MEDS ORDERED: ASPI-99 PO (11:33)
[2016-10-27] MEDS ORDERED: ATOR20TA15 PO (11:33)
== END 2016-09-12 18:04 | disposition home or self-care (01) ==
LOC: NEDAMB 15:23 → NEPK 18:04
DX: R51 Headache (principal); I10 Essential (primary) hypertension; E78.00 Pure hypercholesterolemia, unspecified; Z79.82 Long term (current) use of aspirin; F17.290 Nicotine dependence, other tobacco product, uncomplicated
CPT/HCPCS: 99283

== ENCOUNTER 2016-09-13 19:47 | Emergency (ER) | payer OTHER ==
[2016-09-13 19:59] VITALS: BP 172/90; PULSE 88; RESP 16; TEMP 98.7; O2SAT 100
[2016-09-13] MEDS ORDERED: MECL1TAB42 PO (20:29)
--- NOTE | 2016-09-13 20:36 | PD ---
HPI Chief Complaint: General Weakness Time Seen by Provider: 20:30 Travel History International Travel<30 days: No Contact w/Intl Traveler<30days: No Traveled to known affect area: No History of Present Illness HPI 56-year-old white male presents to emergency department by EMS with complaints of dizziness. The patient is homeless. He has a history of hypertension, anxiety, depression, hyperlipidemia, CHF. He was seen in the ER yesterday for similar presenting complaint. The patient here today states that his dizziness seems more like the room is spinning-like bed spins. He states that it is worse when he gets up and moves. Some relief but remaining still. PFSH Past Medical History Hx Anticoagulant Therapy: Yes (ASPIRIN ) Arthritis: Yes (GENERALIZED) Autoimmune Disease: No Blood Disorders: No Anxiety: Yes Depression: Yes Heart Rhythm Problems: No Cancer: No Cardiovascular Problems: Yes High Cholesterol: Yes Cerebrovascular Accident: Yes Diabetes: No Diminished Hearing: No Endocrine: No Gastrointestinal Disorders: No Genitourinary: No Hypertension: Yes Immune Disorder: No Implanted Vascular Access Dvce: Yes Musculoskeletal: Yes Neurologic: No Psychiatric: Yes Reproductive: No Respiratory: Yes Immunizations Current: No Thyroid Disease: No Past Surgical History 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13) Thoracic Surgery: Yes (CHEST TUBE INSERTION RIGHT LUNG-07/01/08) Other Surgery: Yes (RIGHT ANKLE, 8 SCREWS AND PLATE) Social History Alcohol Use: No Tobacco Use: Yes (1 PPD) Substance Use: No Allergies-Medications (Allergen,Severity, Reaction): Coded Allergies: No Known Allergies (Verified , 09/13/16) Reported Meds & Prescriptions Reported Meds & Active Scripts Active Meclizine 25 (Meclizine HCl) 25 Mg Tab 25-50 Mg PO Q6HR PRN Coreg (Carvedilol) 3.125 Mg Tab 3.125 Mg PO Q12HR Lisinopril 5 Mg Tab 5 Mg PO DAILY Atorvastatin (Atorvastatin Calcium) 20 Mg Tab 20 Mg PO HS Klor-Con 10 (Potassium Chloride) 10 Meq Tab 10 Meq PO DAILY Furosemide 20 Mg Tab 20 Mg PO BID Aspirin EC (Aspirin) 81 Mg Tabdr 81 Mg PO DAILY Potassium Chloride ER (Potassium Chloride) 10 Meq Cap 10 Meq PO DAILY Review of Systems Except as stated in HPI: all other systems reviewed are Neg Physical Exam Narrative GENERAL: Well-developed, well-nourished in no acute distress. Nontoxic appearing. HEAD: Normocephalic, atraumatic. EYES: Pupils equal round and reactive. Extraocular motions intact. No scleral icterus. No injection or drainage. ENT: TMs clear without erythema. The external auditory canals clear. Nose: clear . Posterior pharynx is pink and moist. No tonsillar edema or exudate. Uvula midline. Airway patent. NECK: Trachea midline.Supple, nontender, moves head freely. No central bony tenderness or spasm. CARDIOVASCULAR: Regular rate and rhythm without murmurs, gallops, or rubs. RESPIRATORY: Clear to auscultation. Breath sounds equal bilaterally. No wheezes , rales, or rhonchi. GASTROINTESTINAL: Abdomen soft, non-tender, nondistended. No hepato-splenomegaly , or palpable masses. No guarding. EXTREMITIES: No clubbing, cyanosis, or edema. No joint tenderness, effusion, or edema noted. BACK: Nontender without deformity or crepitance. No flank tenderness. Neuro: Cranial nerves grossly intact. No acute sensorimotor deficits. No ataxia. Data Data Last Documented VS Vital Signs Date Time Temp Pulse Resp B/P Pulse Ox O2 Delivery O2 Flow Rate FiO2 09/13/16 19:59 98.7 88 16 172/90 100 Room Air MDM Medical Decision Making Medical Screen Exam Complete: Yes Emergency Medical Condition: Yes Medical Record Reviewed: Yes Differential Diagnosis Differential diagnoses: Dizziness, vertigo, Mnire's, arrhythmia, anemia Narrative Course The patient has known chronic stable anemia. He has had a recent cardiac workup. His vital signs are stable today. The patient will be treated for vertigo. Patient's given meclizine 25 mg by mouth. Diagnosis Primary Impression: Vertigo Patient Instructions: General Instructions Additional Instructions: Rest. Increase fluids. Avoid any drugs and alcohol. Meclizine. Follow-up with a medical doctor in next 3-5 days. Return to the ER for emergencies. Med/Other Pt SpecificInfo: Prescription(s) given Scripts Meclizine HCl (Meclizine 25)25 Mg [id number] Mg PO Q6HR PRN (DIZZINESS) #30 Prov:Tom Hampton MD 09/13/16 Disposition: 01 DISCHARGE HOME Condition: Stable Delta Vanegas Sep 13, 2016 20:36
[2016-09-13] MEDS ORDERED: MECLIZINE HCL 25 MG TAB PO ONE (20:45)
[2016-10-27] MEDS ORDERED: LISI10TA3 PO ×2 (11:26→11:33)
[2016-10-27] MEDS ORDERED: FERR325T20 PO (11:33)
[2016-10-27] MEDS ORDERED: ASPI-99 PO (11:33)
[2016-10-27] MEDS ORDERED: CARV3.125 PO (11:33)
[2016-10-27] MEDS ORDERED: FURO20TA PO (11:33)
[2016-10-27] MEDS ORDERED: ATOR20TA15 PO (11:33)
== END 2016-09-13 21:27 | disposition home or self-care (01) ==
LOC: NEPK 19:47
DX: R42 Dizziness and giddiness (principal); E78.00 Pure hypercholesterolemia, unspecified; Z86.73 Personal history of transient ischemic attack (TIA), and cerebral infarction without residual deficits; I10 Essential (primary) hypertension; F17.210 Nicotine dependence, cigarettes, uncomplicated; Z79.82 Long term (current) use of aspirin
CPT/HCPCS: 99283

== ENCOUNTER 2016-09-14 07:33 | Emergency (ER) | payer OTHER ==
[~2016-09-14] VITALS: Ht 177.8 cm; Wt 55.0 kg
[~2016-09-14 07:33] MED LIST changes: +MECL1TAB42 PO
[2016-09-14 07:46] VITALS: BP 202/87; PULSE 87; RESP 14; TEMP 97.7; O2SAT 100
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
[2016-09-15] MEDS ORDERED: TYLE325T PO (22:58)
[2016-09-15] MEDS ORDERED: LISI-519 PO (22:58)
[2016-09-15] MEDS ORDERED: CARV3.12 PO (22:58)
[2016-10-27] MEDS ORDERED: LISI10TA3 PO ×2 (11:26→11:33)
[2016-10-27] MEDS ORDERED: FERR325T20 PO (11:33)
[2016-10-27] MEDS ORDERED: CARV3.125 PO (11:33)
[2016-10-27] MEDS ORDERED: FURO20TA PO (11:33)
[2016-10-27] MEDS ORDERED: ATOR20TA15 PO (11:33)
[2016-10-27] MEDS ORDERED: ASPI-99 PO (11:33)
== END 2016-09-14 09:44 | disposition home or self-care (01) ==
LOC: NEPE 07:33
DX: R53.83 Other fatigue (principal); Z59.0 Homelessness
CPT/HCPCS: 99281

== ENCOUNTER 2016-09-14 20:43 | Emergency (ER) | payer OTHER ==
[2016-09-14 20:49] VITALS: BP 193/102; PULSE 90; RESP 16; TEMP 98.6; O2SAT 98
--- NOTE | 2016-09-14 21:54 | PD ---
HPI Chief Complaint: Pain: Acute or Chronic Time Seen by Provider: 21:53 Travel History International Travel<30 days: No Contact w/Intl Traveler<30days: No Traveled to known affect area: No History of Present Illness HPI PATIENT C/O LOW BACK PAIN, HAS HAD IT FOR YEARS, BUT THIS PARTICULAR BOUT STARTED ABOUT 4 HOURS AGO AND IS NOT BEING HELPED BY HIS USUAL PAIN MEDICATIONS , HERE FOR BREAKTHROUGH PAIN. THIS PARTICULAR BOUT HAS SPASMS OF BACK, 8/10, WORSE WITH MOVEMENT, IMPROVED BY RESTING AND STRETCHING PFSH Past Medical History Hx Anticoagulant Therapy: Yes (unknown) Arthritis: Yes (GENERALIZED) Autoimmune Disease: No Blood Disorders: No Anxiety: Yes Depression: Yes Heart Rhythm Problems: No Cancer: No Cardiovascular Problems: Yes (HTN) High Cholesterol: Yes Cerebrovascular Accident: Yes (2017 LEFT SIDE DEFICIT) Diabetes: No Diminished Hearing: No Endocrine: No Gastrointestinal Disorders: No Genitourinary: No Hypertension: Yes Immune Disorder: No Implanted Vascular Access Dvce: Yes Musculoskeletal: Yes Neurologic: No Psychiatric: Yes Reproductive: No Respiratory: Yes Immunizations Current: No Thyroid Disease: No Tetanus Vaccination: < 5 Years Influenza Vaccination: Yes Past Surgical History 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13) Thoracic Surgery: Yes (CHEST TUBE INSERTION RIGHT LUNG-07/01/08) Other Surgery: Yes (RIGHT ANKLE, 8 SCREWS AND PLATE) Social History Alcohol Use: No Tobacco Use: Yes (1 PPD) Substance Use: No Allergies-Medications (Allergen,Severity, Reaction): Coded Allergies: No Known Allergies (Verified , 09/16/16) Reported Meds & Prescriptions Reported Meds & Active Scripts Active Sree Forte (Jt-[id number]-Folic Acid) 150-60-0.025-1 mg Cap 1 Tab PO DAILY Tylenol (Acetaminophen) 325 Mg Tab 650 Mg PO Q6H PRN Lisinopril 5 Mg Tab 5 Mg PO DAILY Carvedilol 3.125 Mg Tab 3.125 Mg PO BID Meclizine 25 (Meclizine HCl) 25 Mg Tab 25-50 Mg PO Q6HR PRN Coreg (Carvedilol) 3.125 Mg Tab 3.125 Mg PO Q12HR Lisinopril 5 Mg Tab 5 Mg PO DAILY Atorvastatin (Atorvastatin Calcium) 20 Mg Tab 20 Mg PO HS Furosemide 20 Mg Tab 20 Mg PO BID Aspirin EC (Aspirin) 81 Mg Tabdr 81 Mg PO DAILY Potassium Chloride ER (Potassium Chloride) 10 Meq Cap 10 Meq PO DAILY Review of Systems Except as stated in HPI: all other systems reviewed are Neg Musculoskeletal: Positive: Myalgias, Pain Physical Exam Narrative GENERAL: SKIN: Warm and dry. HEAD: Atraumatic. Normocephalic. EYES: Pupils equal and round. No scleral icterus. No injection or drainage. ENT: No nasal bleeding or discharge. Mucous membranes pink and moist. NECK: Trachea midline. No JVD. CARDIOVASCULAR: Regular rate and rhythm. RESPIRATORY: No accessory muscle use. Clear to auscultation. Breath sounds equal bilaterally. GASTROINTESTINAL: Abdomen soft, non-tender, nondistended. MUSCULOSKELETAL: Extremities without clubbing, cyanosis, or edema. No obvious deformities. NEUROLOGICAL: Awake and alert. No obvious cranial nerve deficits. Motor grossly within normal limits. Five out of 5 muscle strength in the arms and legs. Normal speech. PSYCHIATRIC: Appropriate mood and affect; insight and judgment normal. Data Data Last Documented VS Vital Signs Date Time Temp Pulse Resp B/P Pulse Ox O2 Delivery O2 Flow Rate FiO2 09/14/16 23:17 78 18 198/98 98 09/14/16 20:49 98.6 Room Air Orders Clonidine (Catapres) (09/14/16 22:15) Orphenadrine Inj (Norflex Inj) (09/14/16 22:15) Ketorolac Inj (Toradol Inj) (09/14/16 22:15) MDM Medical Decision Making Medical Screen Exam Complete: Yes Emergency Medical Condition: Yes Medical Record Reviewed: Yes Differential Diagnosis MUSCLE SPASM Narrative Course CHRONIC CONDITION WITH ACUTE BREAKTHROUGH EPISODE, NO DIFFERENCE FROM PRIOR EPISODES PER PATIENT, PROBLEM HAS ALREADY BEING WORKED UP EXTENSIVELY BY PCP. WILL CONTROL BREAKTHROUGH PAIN Diagnosis Primary Impression: ACUTE ON CHRONIC BACK PAIN Patient Instructions: Chronic Back Pain (ED), General Instructions Disposition: 01 DISCHARGE HOME Condition: Stable Luke Sneed MD Sep 14, 2016 21:54
[2016-09-14] MEDS ORDERED: KETOROLAC TROMETHAMINE 60 MG/2 ML (IM) VIAL IM ONE (22:15)
[2016-09-14] MEDS ORDERED: cloNIDine HCL 0.1 MG TAB PO ONE (22:15)
[2016-09-14] MEDS ORDERED: ORPHENADRINE INJ 60 MG/2 ML AMP IM ONE (22:15)
[2016-09-14 23:17] VITALS: BP 198/98
[2016-09-15] MEDS ORDERED: TYLE325T PO (22:58)
[2016-09-15] MEDS ORDERED: LISI-519 PO (22:58)
[2016-09-15] MEDS ORDERED: CARV3.12 PO (22:58)
[2016-10-27] MEDS ORDERED: LISI10TA3 PO ×2 (11:26→11:33)
[2016-10-27] MEDS ORDERED: FURO20TA PO (11:33)
[2016-10-27] MEDS ORDERED: CARV3.125 PO (11:33)
[2016-10-27] MEDS ORDERED: FERR325T20 PO (11:33)
[2016-10-27] MEDS ORDERED: ASPI-99 PO (11:33)
[2016-10-27] MEDS ORDERED: ATOR20TA15 PO (11:33)
== END 2016-09-14 23:37 | disposition home or self-care (01) ==
LOC: NEPD 20:43
DX: M54.5 Low back pain (principal); G89.29 Other chronic pain
CPT/HCPCS: 96372; 99284; J1885; J2360

== ENCOUNTER 2016-09-15 17:56 | Emergency (ER) | payer OTHER ==
[~2016-09-15] VITALS: Ht 177.8 cm; Wt 54.0 kg
[~2016-09-15 17:56] MED LIST changes: -POTA-243 PO
--- NOTE | 2016-09-15 18:04 | PD ---
Physical Exam Date Seen by Provider: Sep 15, 2016 Time Seen by Provider: 18:03 Data Data Last Documented VS Vital Signs Date Time Temp Pulse Resp B/P Pulse Ox O2 Delivery O2 Flow Rate FiO2 09/15/16 18:05 98.6 92 12 211/88 99 MDM Supervised Visit with FERNANDEZ: No Narrative Course 56 YO M brought in by EMS with complaint of low back pain. Patient has history of back pain. Evaluated and discharged twice today. This is the patients 10th visit this month. Vitals reviewed. Patient seen in triage, awaiting bed placement. Cee Crow Sep 15, 2016 18:04
[2016-09-15 18:05] VITALS: BP 211/88; PULSE 92; RESP 12; TEMP 98.6; O2SAT 99
--- NOTE | 2016-09-15 21:08 | PD ---
HPI Chief Complaint: Back/ Neck Pain or Injury Time Seen by Provider: 20:56 Travel History International Travel<30 days: No Contact w/Intl Traveler<30days: No Traveled to known affect area: No History of Present Illness HPI 56yo M with PMH of CVA with residual left sided weakness, chronic back pain and HTN here with c/o chronic back pain. Pt states he is homeless and has no where else to go. Pt uses a walker and has been here multiple times. Pt was last seen here for back pain yesterday. States he had medications but does not take it. Denies any fever, IVDA, chest pain, sob, n/v, abdominal pain, new focal weakness or numbness, fall or trauma. PFSH Past Medical History Hx Anticoagulant Therapy: Yes (unknown) Arthritis: Yes (GENERALIZED) Autoimmune Disease: No Blood Disorders: No Anxiety: Yes Depression: Yes Heart Rhythm Problems: No Cancer: No Cardiovascular Problems: Yes (HTN) High Cholesterol: Yes Cerebrovascular Accident: Yes (2017 LEFT SIDE DEFICIT) Diabetes: No Diminished Hearing: No Endocrine: No Gastrointestinal Disorders: No Genitourinary: No Hypertension: Yes Immune Disorder: No Implanted Vascular Access Dvce: Yes Musculoskeletal: Yes Neurologic: No Psychiatric: Yes Reproductive: No Respiratory: Yes Immunizations Current: No Thyroid Disease: No Past Surgical History 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13) Thoracic Surgery: Yes (CHEST TUBE INSERTION RIGHT LUNG-07/01/08) Other Surgery: Yes (RIGHT ANKLE, 8 SCREWS AND PLATE) Social History Alcohol Use: No Tobacco Use: Yes (1 PPD) Substance Use: No Allergies-Medications (Allergen,Severity, Reaction): Coded Allergies: No Known Allergies (Verified , 09/14/16) Reported Meds & Prescriptions Reported Meds & Active Scripts Active Tylenol (Acetaminophen) 325 Mg Tab 650 Mg PO Q6H PRN Lisinopril 5 Mg Tab 5 Mg PO DAILY Carvedilol 3.125 Mg Tab 3.125 Mg PO BID Meclizine 25 (Meclizine HCl) 25 Mg Tab 25-50 Mg PO Q6HR PRN Coreg (Carvedilol) 3.125 Mg Tab 3.125 Mg PO Q12HR Lisinopril 5 Mg Tab 5 Mg PO DAILY Atorvastatin (Atorvastatin Calcium) 20 Mg Tab 20 Mg PO HS Furosemide 20 Mg Tab 20 Mg PO BID Aspirin EC (Aspirin) 81 Mg Tabdr 81 Mg PO DAILY Potassium Chloride ER (Potassium Chloride) 10 Meq Cap 10 Meq PO DAILY Review of Systems Except as stated in HPI: all other systems reviewed are Neg Physical Exam Narrative GENERAL: 56yo M not in distress. SKIN: Focused skin assessment warm/dry. HEAD: Atraumatic. Normocephalic. CARDIOVASCULAR: Regular rate and rhythm. No murmur appreciated. RESPIRATORY: No accessory muscle use. Clear to auscultation. Breath sounds equal bilaterally. GASTROINTESTINAL: Abdomen soft, non-tender, nondistended. No rebound tenderness or guarding. BACK: No midline ttp thoracic or lumbar spine ttp. No mass or swelling. Mild paraspinal ttp lumbar spine bilaterally. MUSCULOSKELETAL: No obvious deformities. No clubbing. No cyanosis. No edema. NEUROLOGICAL: Awake and alert. No obvious cranial nerve deficits. Decreased strength in left arm > left leg from CVA. Sensation intact and equal in bilateral lower extremity. Normal speech. PSYCHIATRIC: Appropriate mood and affect; insight and judgment normal. Data Data Last Documented VS Vital Signs Date Time Temp Pulse Resp B/P Pulse Ox O2 Delivery O2 Flow Rate FiO2 09/15/16 22:52 85 18 188/81 99 Room Air 09/15/16 18:05 98.6 Orders Clonidine (Catapres) (09/15/16 21:15) Ketorolac Inj (Toradol Inj) (09/15/16 21:15) Lisinopril (Prinivil) (09/15/16 21:45) Carvedilol (Coreg) (09/15/16 21:45) MDM Medical Decision Making Medical Screen Exam Complete: Yes Emergency Medical Condition: Yes Differential Diagnosis Chronic back pain vs. chronic HTN Narrative Course 56yo M who is homeless with chronic back pain and HTN here because he is homeless and requesting pain medication. Pt was discharge after medications yesterday. Will give toradol 60mg IM and clonidine 0.1mg PO as well. Pt is eating a bag of cheetos while I was talking to him. BP is elevated 211/88. Pt given clonidine 0.1mg, carvedilol 3.125mg and lisinopril 5mg PO. Pt is suppose to be on carvedilol and lisinopril but is noncompliant. Repeat BP 188/81. Pain has improved after toradol and he is sleeping comfortably. Return precautions given. Diagnosis Primary Impression: Chronic back pain Qualified Code: M54.5 - Chronic bilateral low back pain without sciatica Additional Impression: Elevated blood pressure reading Patient Instructions: General Instructions Departure Forms: Tests/Procedures Additional Instructions: Please follow up with your primary care physician for your elevated blood pressure. Return to the ED if symptoms worsen. Med/Other Pt SpecificInfo: Prescription(s) given Scripts Acetaminophen (Tylenol)325 Mg [id number] Mg PO Q6H PRN (PAIN SCALE 1 TO 4) #20 TAB Ref 0 Prov:Britany Brewer DO 09/15/16 Lisinopril 5 Mg Tab5 Mg PO DAILY #30 TAB Ref 0 Prov:Britany Brewer DO 09/15/16 Carvedilol 3.125 Mg Tab3.125 Mg PO BID #60 TAB Ref 0 Prov:Britany Brewer DO 09/15/16 Disposition: 01 DISCHARGE HOME Condition: Stable Britany Brewer DO Sep 15, 2016 21:08
[2016-09-15] MEDS ORDERED: KETOROLAC TROMETHAMINE 60 MG/2 ML (IM) VIAL IM ONE (21:15)
[2016-09-15] MEDS ORDERED: cloNIDine HCL 0.1 MG TAB PO ONE (21:15)
[2016-09-15 21:37] VITALS: BP 230/95; PULSE 85; RESP 16; O2SAT 99
[2016-09-15] MEDS ORDERED: LISINOPRIL 5 MG TAB PO ONE (21:45)
[2016-09-15] MEDS ORDERED: CARVEDILOL 3.125 MG TAB PO ONE (21:45)
[2016-09-15 22:52] VITALS: BP 188/81; PULSE 85; RESP 18; O2SAT 99
[2016-09-15] MEDS ORDERED: LISI-519 PO (22:58)
[2016-09-15] MEDS ORDERED: CARV3.12 PO (22:58)
[2016-09-15] MEDS ORDERED: TYLE325T PO (22:58)
[2016-09-16] MEDS ORDERED: [UNRECOGNIZED DRUG - CODE] PO (19:57)
[2016-10-27] MEDS ORDERED: LISI10TA3 PO ×2 (11:26→11:33)
[2016-10-27] MEDS ORDERED: ASPI-99 PO (11:33)
[2016-10-27] MEDS ORDERED: ATOR20TA15 PO (11:33)
[2016-10-27] MEDS ORDERED: FURO20TA PO (11:33)
[2016-10-27] MEDS ORDERED: FERR325T20 PO (11:33)
[2016-10-27] MEDS ORDERED: CARV3.125 PO (11:33)
== END 2016-09-15 23:05 | disposition home or self-care (01) ==
LOC: NEPD 17:56
DX: M54.9 Dorsalgia, unspecified (principal); G89.29 Other chronic pain; I10 Essential (primary) hypertension; I69.954 Hemiplegia and hemiparesis following unspecified cerebrovascular disease affecting left non-dominant side; M13.88 Other specified arthritis, other site; F17.200 Nicotine dependence, unspecified, uncomplicated; Z79.82 Long term (current) use of aspirin; Z79.899 Other long term (current) drug therapy; Z59.0 Homelessness
CPT/HCPCS: 96372; 99284; J1885

== ENCOUNTER 2016-09-16 15:42 | Emergency (ER) | payer OTHER ==
[~2016-09-16] VITALS: Ht 177.8 cm; Wt 70.0 kg
[~2016-09-16 15:42] MED LIST changes: +CARV3.12 PO; +TYLE325T PO
[2016-09-16 15:50] VITALS: BP 124/58; PULSE 76; RESP 20; TEMP 97.8; O2SAT 100
[2016-09-16 17:03] VITALS: BP 142/53; PULSE 71; RESP 18; TEMP 98.5; O2SAT 100
[2016-09-16] MEDS ORDERED: SODIUM CHLOR 0.9% 1000 ML INJ 1,000 ML IV SCH (18:09)
--- NOTE | 2016-09-16 18:09 | PD ---
HPI Chief Complaint: Medical Clearance Time Seen by Provider: 18:08 Travel History International Travel<30 days: No Contact w/Intl Traveler<30days: No Traveled to known affect area: No History of Present Illness HPI 56 year old male presents to emergency Department with complaint of dizziness and fatigue. He arrived via [facility]. He is homeless and has had multiple visits in the past week for multiple complaints. On September 09 he was seen for complaint of fatigue also. He says he hasn't eaten well in about a week. He denies chest pain, shortness breath, abdominal pain, nausea, vomiting. Denies fever. Denies syncope. Denies near syncope. 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 Symptoms are mild in severity. Has no other medical complaints. No known allergies. No other modifying factors or associated signs and symptoms. PFSH Past Medical History Hx Anticoagulant Therapy: Yes (unknown) Arthritis: Yes (GENERALIZED) Autoimmune Disease: No Blood Disorders: No Anxiety: Yes Depression: Yes Heart Rhythm Problems: No Cancer: No Cardiovascular Problems: Yes (HTN) High Cholesterol: Yes Cerebrovascular Accident: Yes Diabetes: No Diminished Hearing: No Endocrine: No Gastrointestinal Disorders: No Genitourinary: No Hypertension: Yes Immune Disorder: No Implanted Vascular Access Dvce: Yes Musculoskeletal: Yes Neurologic: No Psychiatric: Yes Reproductive: No Respiratory: Yes Immunizations Current: No Thyroid Disease: No Past Surgical History 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13) Thoracic Surgery: Yes (CHEST TUBE INSERTION RIGHT LUNG-07/01/08) Other Surgery: Yes (RIGHT ANKLE, 8 SCREWS AND PLATE) Social History Alcohol Use: No Tobacco Use: Yes (1 PPD) Substance Use: No Allergies-Medications (Allergen,Severity, Reaction): Coded Allergies: No Known Allergies (Verified , 09/16/16) Reported Meds & Prescriptions Reported Meds & Active Scripts Active Sree Forte (Mf-Reipvwx-C63-Folic Acid) 150-60-0.025-1 mg Cap 1 Tab PO DAILY Tylenol (Acetaminophen) 325 Mg Tab 650 Mg PO Q6H PRN Lisinopril 5 Mg Tab 5 Mg PO DAILY Carvedilol 3.125 Mg Tab 3.125 Mg PO BID Meclizine 25 (Meclizine HCl) 25 Mg Tab 25-50 Mg PO Q6HR PRN Coreg (Carvedilol) 3.125 Mg Tab 3.125 Mg PO Q12HR Lisinopril 5 Mg Tab 5 Mg PO DAILY Atorvastatin (Atorvastatin Calcium) 20 Mg Tab 20 Mg PO HS Furosemide 20 Mg Tab 20 Mg PO BID Aspirin EC (Aspirin) 81 Mg Tabdr 81 Mg PO DAILY Potassium Chloride ER (Potassium Chloride) 10 Meq Cap 10 Meq PO DAILY Review of Systems Except as stated in HPI: all other systems reviewed are Neg Physical Exam Narrative GENERAL: Thin, male patient, in no acute distress; afebrile, nontoxic- appearing; disheveled SKIN: Warm and dry. HEAD: Atraumatic. Normocephalic. EYES: Pupils equal and round. No scleral icterus. No injection or drainage. ENT: Mucosa pink and moist. Airway patent. NECK: Trachea midline. CARDIOVASCULAR: Regular rate and rhythm. No murmur appreciated. RESPIRATORY: No accessory muscle use. Clear to auscultation. Breath sounds equal bilaterally. GASTROINTESTINAL: Abdomen soft, non-tender, nondistended. Hepatic and splenic margins not palpable. Bowel sounds are active 4 quadrants. MUSCULOSKELETAL: No obvious deformities. No clubbing. No cyanosis. No edema. NEUROLOGICAL: Awake and alert. Oriented 3. No obvious cranial nerve deficits. Motor grossly within normal limits. Normal speech. PSYCHIATRIC: Appropriate mood and affect; insight and judgment normal. Data Data Last Documented VS Vital Signs Date Time Temp Pulse Resp B/P Pulse Ox O2 Delivery O2 Flow Rate FiO2 09/16/16 17:03 98.5 71 18 142/53 100 09/16/16 15:50 Room Air Orders Basic Metabolic Panel (Bmp) (09/16/16 18:09) Complete Blood Count With Diff (09/16/16 18:09) Urinalysis - C+S If Indicated (09/16/16 18:09) Iv Access Insert/Monitor (09/16/16 18:09) Sodium Chlor 0.9% 1000 Ml Inj (Ns 1000 M (09/16/16 18:09) Sodium Chloride 0.9% Flush (Ns Flush) (09/16/16 18:15) Chest, Single Ap (09/16/16 18:09) Labs Laboratory Tests Test 09/16/16 09/16/16 18:25 19:10 White Blood Count 7.8 TH/MM3 Red Blood Count 2.92 MIL/MM3 Hemoglobin 8.3 GM/DL Hematocrit 24.8 % Mean Corpuscular Volume 84.7 FL Mean Corpuscular Hemoglobin 28.5 PG Mean Corpuscular Hemoglobin 33.6 % Concent Red Cell Distribution Width 17.4 % Platelet Count 358 TH/MM3 Mean Platelet Volume 7.6 FL Neutrophils (%) (Auto) 66.6 % Lymphocytes (%) (Auto) 18.2 % Monocytes (%) (Auto) 10.6 % Eosinophils (%) (Auto) 4.4 % Basophils (%) (Auto) 0.2 % Neutrophils # (Auto) 5.2 TH/MM3 Lymphocytes # (Auto) 1.4 TH/MM3 Monocytes # (Auto) 0.8 TH/MM3 Eosinophils # (Auto) 0.3 TH/MM3 Basophils # (Auto) 0.0 TH/MM3 CBC Comment DIFF FINAL Differential Comment Sodium Level 137 MEQ/L Potassium Level 4.1 MEQ/L Chloride Level 101 MEQ/L Carbon Dioxide Level 30.7 MEQ/L Anion Gap 5 MEQ/L Blood Urea Nitrogen 27 MG/DL Creatinine 1.38 MG/DL Estimat Glomerular Filtration 53 ML/MIN Rate Random Glucose 84 MG/DL Calcium Level 8.4 MG/DL Urine Color YELLOW Urine Turbidity CLEAR Urine pH 5.5 Urine Specific [place] 1.023 Urine Protein 30 mg/dL Urine Glucose (UA) NEG mg/dL Urine Ketones NEG mg/dL Urine Occult Blood NEG Urine Nitrite NEG Urine Bilirubin NEG Urine Urobilinogen LESS THAN 2.0 MG/DL Urine Leukocyte Esterase NEG Urine RBC 1 /hpf Urine WBC LESS THAN 1 /hpf Urine Hyaline Casts 5 /lpf Microscopic Urinalysis Comment CULT NOT INDICATED MDM Medical Decision Making Medical Screen Exam Complete: Yes Emergency Medical Condition: Yes Medical Record Reviewed: Yes Differential Diagnosis Electrolyte imbalance, dehydration, dizziness, fatigue Narrative Course 56-year-old male arrives via [facility] for dizziness and fatigue. This patient is homeless and he has been seen multiple times in the past couple weeks. I spoke with Dr. Paiz, my attending physician, in regards to the complaint of the dizziness and fatigue that is continued and he recommends CBC, BMP, chest x-ray , urinalysis. Orders entered. Patient was given carolynn crackers and water at the bedside. 1900: Chest x-ray concludes: Last 24 hours Impressions Chest X-Ray 09/16/161808 Signed Impressions: Service Date/Time: Friday, September 16, 2016 18:33 - CONCLUSION: No acute cardiopulmonary disease identified. Nathan Boyer MD Report given to Delta Vanegas PA-C at change of shift. See his note for final disposition. Scripts Jv-Efptlps-W16-Folic Acid (Sree Forte)150-60-0.025-1 mg Cap1 Tab PO DAILY #30 Ref 6 Prov:Eren Paiz MD 09/16/16 Lu Ayoub Sep 16, 2016 18:09
[2016-09-16] MEDS ORDERED: SODIUM CHLORIDE 0.9% FLUSH 10 ML FLUSH IV FLUSH PRN (18:15)
--- NOTE | 2016-09-16 18:47 | RADRPT ---
EXAM DATE/TIME: 09/16/2016 18:33 [facility] COMPARISON: CHEST SINGLE AP, September 09, 2016, 21:03. INDICATIONS : Dizziness and shortness of breath. MEDICAL HISTORY : Hypertension. Cardiovascular disease. SURGICAL HISTORY : Splenectomy. ENCOUNTER: Initial ACUITY: 1 month PAIN SCORE: Non-responsive. LOCATION: chest FINDINGS: 2 AP views of the chest. Scarring right lung apex. The lungs are otherwise clear. Cardiomediastinal s ilhouette within normal limits. No evidence of pleural effusion or pneumothorax. CONCLUSION: No acute cardiopulmonary disease identified. Nathan Boyer MD on September 16, 2016 at 18:45 Board Certified Radiologist. This report was verified electronically.
[2016-09-16 18:51] LABS: AUTOMATED NEUTROPHIL # 5.2 TH/MM3 (1.8-7.7); BASOPHIL % 0.2 % (0.0-2.0); EOSINOPHIL # 0.3 TH/MM3 (0-0.4); EOSINOPHIL % 4.4 % (0.0-4.0); HEMATOCRIT 24.8 % (39.0-51.0); HEMO FLAGS DIFF FINAL; LYMPH % 18.2 % (9.0-44.0); LYMPHOCYTE # 1.4 TH/MM3 (1.0-4.8); MEAN CELL VOLUME 84.7 FL (80.0-100.0); MEAN CORPUSCULAR HEMOGLOBIN 28.5 PG (27.0-34.0); MEAN CORPUSCULAR HGB CONC 33.6 % (32.0-36.0); MONO % 10.6 % (0.0-8.0); NEUT % 66.6 % (16.0-70.0); PLATELET COUNT 358 TH/MM3 (150-450); RED BLOOD COUNT 2.92 MIL/MM3 (4.50-5.90); RED CELL DISTRIBUTION WIDTH 17.4 % (11.6-17.2); WHITE BLOOD COUNT 7.8 TH/MM3 (4.0-11.0)
[2016-09-16 19:09] LABS: BICARBONATE 30.7 MEQ/L (21.0-32.0); POTASSIUM 4.1 MEQ/L (3.5-5.1)
[2016-09-16 19:52] LABS: BLOOD, URINE NEG (NEG); COMMENT (UR) CULT NOT INDICATED; CULTURE IF INDICATED CULT NOT INDICATED; GLUCOSE,URINE NEG (NEG); HYALINE CAST, URINE 5 /lpf (RARE); KETONE, URINE NEG (NEG); NITRITE,URINE NEG (NEG); PH, URINE 5.5 (5.0-8.5); URINE COLOR YELLOW (YELLW/STRAW)
[2016-09-16] MEDS ORDERED: [UNRECOGNIZED DRUG - CODE] PO (19:57)
--- NOTE | 2016-09-16 20:04 | PD ---
Physical Exam Date Seen by Provider: Sep 16, 2016 Time Seen by Provider: 19:59 Data Data Last Documented VS Vital Signs Date Time Temp Pulse Resp B/P Pulse Ox O2 Delivery O2 Flow Rate FiO2 09/16/16 17:03 98.5 71 18 142/53 100 09/16/16 15:50 Room Air Orders Basic Metabolic Panel (Bmp) (09/16/16 18:09) Complete Blood Count With Diff (09/16/16 18:09) Urinalysis - C+S If Indicated (09/16/16 18:09) Iv Access Insert/Monitor (09/16/16 18:09) Sodium Chlor 0.9% 1000 Ml Inj (Ns 1000 M (09/16/16 18:09) Sodium Chloride 0.9% Flush (Ns Flush) (09/16/16 18:15) Chest, Single Ap (09/16/16 18:09) Labs Laboratory Tests Test 09/16/16 09/16/16 18:25 19:10 White Blood Count 7.8 TH/MM3 Red Blood Count 2.92 MIL/MM3 Hemoglobin 8.3 GM/DL Hematocrit 24.8 % Mean Corpuscular Volume 84.7 FL Mean Corpuscular Hemoglobin 28.5 PG Mean Corpuscular Hemoglobin 33.6 % Concent Red Cell Distribution Width 17.4 % Platelet Count 358 TH/MM3 Mean Platelet Volume 7.6 FL Neutrophils (%) (Auto) 66.6 % Lymphocytes (%) (Auto) 18.2 % Monocytes (%) (Auto) 10.6 % Eosinophils (%) (Auto) 4.4 % Basophils (%) (Auto) 0.2 % Neutrophils # (Auto) 5.2 TH/MM3 Lymphocytes # (Auto) 1.4 TH/MM3 Monocytes # (Auto) 0.8 TH/MM3 Eosinophils # (Auto) 0.3 TH/MM3 Basophils # (Auto) 0.0 TH/MM3 CBC Comment DIFF FINAL Differential Comment Sodium Level 137 MEQ/L Potassium Level 4.1 MEQ/L Chloride Level 101 MEQ/L Carbon Dioxide Level 30.7 MEQ/L Anion Gap 5 MEQ/L Blood Urea Nitrogen 27 MG/DL Creatinine 1.38 MG/DL Estimat Glomerular Filtration 53 ML/MIN Rate Random Glucose 84 MG/DL Calcium Level 8.4 MG/DL Urine Color YELLOW Urine Turbidity CLEAR Urine pH 5.5 Urine Specific [place] 1.023 Urine Protein 30 mg/dL Urine Glucose (UA) NEG mg/dL Urine Ketones NEG mg/dL Urine Occult Blood NEG Urine Nitrite NEG Urine Bilirubin NEG Urine Urobilinogen LESS THAN 2.0 MG/DL Urine Leukocyte Esterase NEG Urine RBC 1 /hpf Urine WBC LESS THAN 1 /hpf Urine Hyaline Casts 5 /lpf Microscopic Urinalysis Comment CULT NOT INDICATED [facility] Medical Record Reviewed: Yes Supervised Visit with FERNANDEZ: Yes Interpretation(s) Laboratory Tests Test 09/16/16 09/16/16 18:25 19:10 White Blood Count 7.8 TH/MM3 Red Blood Count 2.92 MIL/MM3 Hemoglobin 8.3 GM/DL Hematocrit 24.8 % Mean Corpuscular Volume 84.7 FL Mean Corpuscular Hemoglobin 28.5 PG Mean Corpuscular Hemoglobin 33.6 % Concent Red Cell Distribution Width 17.4 % Platelet Count 358 TH/MM3 Mean Platelet Volume 7.6 FL Neutrophils (%) (Auto) 66.6 % Lymphocytes (%) (Auto) 18.2 % Monocytes (%) (Auto) 10.6 % Eosinophils (%) (Auto) 4.4 % Basophils (%) (Auto) 0.2 % Neutrophils # (Auto) 5.2 TH/MM3 Lymphocytes # (Auto) 1.4 TH/MM3 Monocytes # (Auto) 0.8 TH/MM3 Eosinophils # (Auto) 0.3 TH/MM3 Basophils # (Auto) 0.0 TH/MM3 CBC Comment DIFF FINAL Differential Comment Sodium Level 137 MEQ/L Potassium Level 4.1 MEQ/L Chloride Level 101 MEQ/L Carbon Dioxide Level 30.7 MEQ/L Anion Gap 5 MEQ/L Blood Urea Nitrogen 27 MG/DL Creatinine 1.38 MG/DL Estimat Glomerular Filtration 53 ML/MIN Rate Random Glucose 84 MG/DL Calcium Level 8.4 MG/DL Urine Color YELLOW Urine Turbidity CLEAR Urine pH 5.5 Urine Specific [place] 1.023 Urine Protein 30 mg/dL Urine Glucose (UA) NEG mg/dL Urine Ketones NEG mg/dL Urine Occult Blood NEG Urine Nitrite NEG Urine Bilirubin NEG Urine Urobilinogen LESS THAN 2.0 MG/DL Urine Leukocyte Esterase NEG Urine RBC 1 /hpf Urine WBC LESS THAN 1 /hpf Urine Hyaline Casts 5 /lpf Microscopic Urinalysis Comment CULT NOT INDICATED Differential Diagnosis . Narrative Course This is a 56-year-old white male who is been seen in the ER on a daily basis for the past week. He is homeless. He has come in with multiple complaints including dizziness, weakness and back pain. He's had multiple workups in the past. Review the medical record indicates that he's had anemia from iron deficiency in the past and Dr. Chino had performed endoscopy on him. The patient has had anemia which has been chronic. He has had a slow decrease in his hemoglobin. His rectal exam is faintly positive. He does have large hemorrhoids. The patient is medically stable for discharge. He is sent home on iron supplement and advised to follow-up with primary care doctor as well as GI. This is weakness, anemia HemaPrompt Test Point of Care Internal Pos. & Neg. Controls: Passed Fecal Specimen Occult Blood: Positive Diagnosis Primary Impression: weakness Additional Impression: anemia Patient Instructions: General Instructions Additional Instruction: Rest. Increase fluids. Avoid alcohol. Iron pill. He may fill this at [facility] for $17. Follow-up with a primary care doctor in 1 week. Follow-up with GI doctor in one week. Med/Other Pt SpecificInfo: Prescription(s) given Scripts Bh-Wsmyjbt-T52-Folic Acid (Sree Forte)150-60-0.025-1 mg Cap1 Tab PO DAILY #30 Ref 6 Prov:Eren Paiz MD 09/16/16 Disposition: 01 DISCHARGE HOME Condition: Delta Kasper Sep 16, 2016 20:03
[2016-10-27] MEDS ORDERED: LISI10TA3 PO ×2 (11:26→11:33)
[2016-10-27] MEDS ORDERED: FERR325T20 PO (11:33)
[2016-10-27] MEDS ORDERED: ASPI-99 PO (11:33)
[2016-10-27] MEDS ORDERED: FURO20TA PO (11:33)
[2016-10-27] MEDS ORDERED: ATOR20TA15 PO (11:33)
[2016-10-27] MEDS ORDERED: CARV3.125 PO (11:33)
== END 2016-09-16 20:57 | disposition home or self-care (01) ==
LOC: NEPD 15:42
DX: R53.1 Weakness (principal); D64.9 Anemia, unspecified; R42 Dizziness and giddiness; M54.9 Dorsalgia, unspecified; R53.83 Other fatigue; I69.854 Hemiplegia and hemiparesis following other cerebrovascular disease affecting left non-dominant side; I10 Essential (primary) hypertension; F41.9 Anxiety disorder, unspecified; Z59.0 Homelessness
CPT/HCPCS: 71010; 80048; 81001; 85025; 99284; J7030

== ENCOUNTER 2016-09-17 22:03 | Emergency (ER) | payer SELFPAY ==
[~2016-09-17 22:03] MED LIST changes: +[UNRECOGNIZED DRUG - CODE] PO
[2016-09-17 22:07] VITALS: BP 243/116; PULSE 101; RESP 18; TEMP 99.4; O2SAT 96
[2016-09-18] MEDS ORDERED: BACT800T5 PO (18:28)
[2016-09-18] MEDS ORDERED: CEPH-460 PO (18:28)
[2016-10-27] MEDS ORDERED: LISI10TA3 PO ×2 (11:26→11:33)
[2016-10-27] MEDS ORDERED: CARV3.125 PO (11:33)
[2016-10-27] MEDS ORDERED: ASPI-99 PO (11:33)
[2016-10-27] MEDS ORDERED: FERR325T20 PO (11:33)
[2016-10-27] MEDS ORDERED: ATOR20TA15 PO (11:33)
[2016-10-27] MEDS ORDERED: FURO20TA PO (11:33)
== END 2016-09-17 22:30 | disposition left against medical advice (07) ==
LOC: NED 22:03
DX: Z76.0 Encounter for issue of repeat prescription (principal)
CPT/HCPCS: 99281

== ENCOUNTER 2016-09-18 17:22 | Emergency (ER) | payer OTHER ==
[~2016-09-18] VITALS: Ht 177.8 cm; Wt 53.5 kg
[2016-09-18 17:33] VITALS: BP 222/95; PULSE 90; RESP 18; TEMP 99.9; O2SAT 99
--- NOTE | 2016-09-18 17:44 | PD ---
Physical Exam Time Seen by Provider: 17:41 Narrative 56yo M arrives via [facility] c/o abd pain that feels like a cork screw that started today. Denies fever, vomiting. +diarrhea yesterday. Patient has had multiple recent visits. Patient seen in triage. VS reviewed. Awaiting bed placement. Data Data Last Documented VS Vital Signs Date Time Temp Pulse Resp B/P Pulse Ox O2 Delivery O2 Flow Rate FiO2 09/18/16 17:33 99.9 90 18 222/95 99 Room Air [facility] Supervised Visit with FERNANDEZ: Lu Green Sep 18, 2016 17:44
[2016-09-18 18:17] VITALS: TEMP 98.5
[2016-09-18] MEDS ORDERED: BACT800T5 PO (18:28)
[2016-09-18] MEDS ORDERED: CEPH-460 PO (18:28)
--- NOTE | 2016-09-18 18:28 | PD ---
HPI Chief Complaint: Abdominal Pain Time Seen by Provider: 18:13 Travel History International Travel<30 days: No Contact w/Intl Traveler<30days: No Traveled to known affect area: No History of Present Illness HPI 56-year-old male here for evaluation of abdominal pain that occurred earlier today. The patient states that he had a corkscrew-like pain in his mid abdomen. This pain has since resolved. Patient is homeless. He has history of CVA with left-sided weakness and walks with a walker. He has been here several times this month with several different complaints. In triage she was noted that his oral temp was 99.9. Repeat oral temp in the exam room was 98.6 F. Patient is complaining of a blister that is forming on his left heel that is causing him some discomfort. He is no longer having abdominal pain. He also reports that his pain started this morning after eating a large breakfast. He denies alcohol or illicit drug use. PFSH Past Medical History Hx Anticoagulant Therapy: Yes (unknown) Arthritis: Yes (GENERALIZED) Autoimmune Disease: No Blood Disorders: No Anxiety: Yes Depression: Yes Heart Rhythm Problems: No Cancer: No Cardiovascular Problems: Yes (HTN) High Cholesterol: Yes Cerebrovascular Accident: Yes Diabetes: No Diminished Hearing: No Endocrine: No Gastrointestinal Disorders: No Genitourinary: No Hypertension: Yes Immune Disorder: No Implanted Vascular Access Dvce: Yes Musculoskeletal: Yes Neurologic: No Psychiatric: Yes Reproductive: No Respiratory: Yes Immunizations Current: No Thyroid Disease: No Tetanus Vaccination: < 5 Years Influenza Vaccination: Yes ?: Not Past Surgical History 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13) Thoracic Surgery: Yes (CHEST TUBE INSERTION RIGHT LUNG-07/01/08) Other Surgery: Yes (RIGHT ANKLE, 8 SCREWS AND PLATE) Social History Alcohol Use: No Tobacco Use: Yes (1 PPD) Substance Use: No Allergies-Medications (Allergen,Severity, Reaction): Coded Allergies: No Known Allergies (Verified , 09/17/16) Reported Meds & Prescriptions Reported Meds & Active Scripts Active Sree Forte (Lq-Ozdoxmi-W26-Folic Acid) 150-60-0.025-1 mg Cap 1 Tab PO DAILY Tylenol (Acetaminophen) 325 Mg Tab 650 Mg PO Q6H PRN Lisinopril 5 Mg Tab 5 Mg PO DAILY Carvedilol 3.125 Mg Tab 3.125 Mg PO BID Meclizine 25 (Meclizine HCl) 25 Mg Tab 25-50 Mg PO Q6HR PRN Coreg (Carvedilol) 3.125 Mg Tab 3.125 Mg PO Q12HR Lisinopril 5 Mg Tab 5 Mg PO DAILY Atorvastatin (Atorvastatin Calcium) 20 Mg Tab 20 Mg PO HS Furosemide 20 Mg Tab 20 Mg PO BID Aspirin EC (Aspirin) 81 Mg Tabdr 81 Mg PO DAILY Potassium Chloride ER (Potassium Chloride) 10 Meq Cap 10 Meq PO DAILY Review of Systems Except as stated in HPI: all other systems reviewed are Neg Physical Exam Narrative GENERAL: Well-developed, thin, comfortable, no apparent distress. SKIN: Focused skin assessment warm/dry. Left posterior heel with slight superficial ulceration with mild surrounding warmth and erythema. Bilateral feet are pink and warm with normal capillary refill. HEAD: Atraumatic. Normocephalic. EYES: Pupils equal and round. No scleral icterus. No injection or drainage. ENT: Mucous membranes pink and moist. NECK: Trachea midline. No JVD. CARDIOVASCULAR: Regular rate and rhythm. Bilateral dorsalis pedis pulses are brisk and equal. RESPIRATORY: No accessory muscle use. Clear to auscultation. Breath sounds equal bilaterally. GASTROINTESTINAL: Abdomen soft, non-tender, nondistended. MUSCULOSKELETAL: No obvious deformities. No clubbing. No cyanosis. Mild bilateral pedal edema. Skin exam as above. NEUROLOGICAL: Awake and alert. No obvious cranial nerve deficits. Left-sided weakness which is the patient's baseline. Normal speech. PSYCHIATRIC: Appropriate mood and affect; insight and judgment normal. Data Data Last Documented VS Vital Signs Date Time Temp Pulse Resp B/P Pulse Ox O2 Delivery O2 Flow Rate FiO2 09/18/16 18:17 98.5 09/18/16 17:33 90 18 222/95 99 Room Air Orders Cephalexin (Keflex) (09/18/16 18:30) Sulfameth-Trimeth 400-80 Mg (Bactrim 400 (09/18/16 18:30) MDM Medical Decision Making Medical Screen Exam Complete: Yes Emergency Medical Condition: Yes Differential Diagnosis Transient abdominal pain, acute surgical process unlikely, cellulitis, malingering Narrative Course Initial vital signs showed a oral temp of 99.9F. Repeat oral temp was 98.5F. Heart rate 90, blood pressure 222/95, pulse ox 99% on room air. Patient's physical exam is significant for a slight/superficial ulceration to left posterior heel with slight surrounding cellulitis. Bilateral feet are pink and warm with normal capillary refill, brisk dorsalis pedis pulses bilaterally. Patient's abdominal exam is completely benign. I do not believe that there is an acute intra-abdominal/surgical process to warrant imaging at this time. The patient has been here several times this week and most recently had labs 2 days ago. These labs were significant for an anemia which is chronic for the patient. I do not believe that lab work is necessary today. Blood pressure is elevated, however the patient is not displaying any signs or symptoms of hypertensive crisis. Plan is to start the patient on oral antibiotics for the ulceration on his left foot with surrounding cellulitis. He was instructed to follow-up with a primary care physician this week. He was informed on when to return to the emergency department. He verbalizes understanding and agreement with plan. Diagnosis Primary Impression: Cellulitis of left foot Referrals: [facility] 3 days Primary Care Physician 3 days Additional Instructions: Take antibiotics as prescribed. Follow-up with a primary care physician this week. Return to the emergency department for worsening symptoms or any other concerns. Scripts Cephalexin (Keflex)500 Mg [id number] Mg PO Q8H #30 CAP Ref 0 Prov:Tom Hampton MD 09/18/16 Sulfamethoxazole-Trimethoprim (Bactrim DS)800-160 Mg Tab1 Tab PO BID #20 TAB Ref 0 Prov:Tom Hampton MD 09/18/16 Disposition: 01 DISCHARGE HOME Condition: Stable Tom Hampton MD Sep 18, 2016 18:28
[2016-09-18] MEDS ORDERED: SULFAMETHOXAZOLE-TRIMETHOPRIM 400-80 MG TAB PO ONE (18:30)
[2016-09-18] MEDS ORDERED: CEPHALEXIN MONOHYDRATE 500 MG CAP PO ONE (18:30)
[2016-10-27] MEDS ORDERED: LISI10TA3 PO ×2 (11:26→11:33)
[2016-10-27] MEDS ORDERED: CARV3.125 PO (11:33)
[2016-10-27] MEDS ORDERED: ATOR20TA15 PO (11:33)
[2016-10-27] MEDS ORDERED: FURO20TA PO (11:33)
[2016-10-27] MEDS ORDERED: FERR325T20 PO (11:33)
[2016-10-27] MEDS ORDERED: ASPI-99 PO (11:33)
== END 2016-09-18 18:55 | disposition home or self-care (01) ==
LOC: NEPD 17:22
DX: L03.116 Cellulitis of left lower limb (principal); R10.9 Unspecified abdominal pain; Z59.0 Homelessness
CPT/HCPCS: 99284

== ENCOUNTER 2016-09-18 22:50 | Observation (INO) | payer OTHER ==
[~2016-09-18] VITALS: Ht 177.8 cm; Wt 42.5 kg
[~2016-09-18 22:50] MED LIST changes: +BACT800T5 PO; +CEPH-460 PO
[2016-09-18 23:00] VITALS: BP 214/93; PULSE 102; RESP 20; TEMP 98.6; O2SAT 95
--- NOTE | 2016-09-18 23:39 | RADRPT ---
EXAM DATE/TIME: 09/18/2016 23:07 [facility] COMPARISON: CHEST SINGLE AP, September 09, 2016, 21:03. CHEST SINGLE AP, September 16, 2016, 18:33. INDICATIONS : Chest pain. MEDICAL HISTORY : Hypertension. Cardiovascular disease. SURGICAL HISTORY : None. ENCOUNTER: Initial ACUITY: 1 day PAIN SCORE: 2/10 LOCATION: Bilateral chest FINDINGS: Hyperaerated lungs. Stable scarring at the right apex adjacent to surgical suture. Left apical bull a. The heart is normal size. The portion of both hemidiaphragms included in the [id number] exam a well delineated. Healed fracture of the posterolateral left 5th rib. CONCLUSION: No acute findings. 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 Rg Montenegro MD on September 18, 2016 at 23:32 Board Certified Radiologist. This report was verified electronically.
[2016-09-18] MEDS ORDERED: methylPREDNISolone SOD SUCC 125 MG/2 ML VIAL IVP ONE (23:45)
[2016-09-18] MEDS ORDERED: ONDANSETRON HCL 4 MG/2 ML VIAL IV ONE (23:45)
[2016-09-18] MEDS ORDERED: SODIUM CHLORIDE 0.9% FLUSH 10 ML FLUSH IVF PRN (23:45)
[2016-09-18] MEDS: RESP: ALBUTEROL 2.5 MG/IPRATROPIUM 0.5 MG NEB (SCH) INH (23:55)
[2016-09-18 23:58] VITALS: O2SAT 96
[2016-09-19] VITALS (16 sets, daily range): BP systolic 123–224; BP diastolic 59–102; PULSE 73–110; RESP 14–24; TEMP 97.6–99.3; O2SAT 95–100
--- NOTE | 2016-09-19 00:06 | PD ---
HPI Chief Complaint: GI Complaint Time Seen by Provider: 23:07 Travel History International Travel<30 days: No Contact w/Intl Traveler<30days: No Traveled to known affect area: No History of Present Illness HPI The patient is a 56 year old male who presents to the [facility] emergency department with a history of nausea that began sometime prior to arrival. The patient reports that he believes he became nauseated when he was given 2 antibiotic pills in the emergency department earlier today. The patient was treated for what appeared to be an infected wound on his heel earlier today in the afternoon. The patient reports that he then had nausea and vomiting once and 2 episodes of dry heaves. The patient then called ambulance services and was brought back to the emergency department. The patient does have multiple chronic medical conditions including hypertension, anxiety and depression, hyperlipidemia, congestive heart failure with an ejection fraction of 35-40%, and COPD. The patient reports that he has not been on any of his medications since May as he is homeless. 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 The patient denies initially having any chest pain or shortness of breath, however after arriving in the emergency department he began to have a dry cough and suddenly again to have wheezing with shortness of breath. His O2 saturation dropped during this episode to 85% on room air. The patient was noted to have retractions. The patient was immediately placed on 2 L nasal cannula O2. Patient's O2 saturation began to improve. On review of systems, the patient denies any recent known fevers, worsening congestion, neck pain, chest pain, abdominal pain , diarrhea, urinary symptoms, or neurologic symptoms. [facility] Past Medical History Narrative Medical The patient's past medical history is significant for hypertension, anxiety and depression, hyperlipidemia, congestive heart failure with a prior ejection fraction of 35-40%, alcohol abuse, tobacco abuse, noncompliance with medication regimens. Hx Anticoagulant Therapy: Yes (unknown) Arthritis: Yes (GENERALIZED) Autoimmune Disease: No Blood Disorders: No Anxiety: Yes Depression: Yes Heart Rhythm Problems: No Cancer: No Cardiovascular Problems: Yes (HTN) High Cholesterol: Yes Cerebrovascular Accident: Yes Diabetes: No Diminished Hearing: No Endocrine: No Gastrointestinal Disorders: No Genitourinary: No Hypertension: Yes Immune Disorder: No Implanted Vascular Access Dvce: Yes Musculoskeletal: Yes Neurologic: No Psychiatric: Yes Reproductive: No Respiratory: Yes Immunizations Current: No Thyroid Disease: No Past Surgical History Narrative Surgical The patient's past surgical history is significant for right ankle surgery, chest tube placement, retinal surgery. 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13) Thoracic Surgery: Yes (CHEST TUBE INSERTION RIGHT LUNG-07/01/08) Other Surgery: Yes (RIGHT ANKLE, 8 SCREWS AND PLATE) Social History Alcohol Use: No Tobacco Use: Yes (1 PPD) Substance Use: No Allergies-Medications (Allergen,Severity, Reaction): Coded Allergies: No Known Allergies (Verified , 09/19/16) Reported Meds & Prescriptions Reported Meds & Active Scripts Active Review of Systems Except as stated in HPI: all other systems reviewed are Neg General / Constitutional: No: Fever Eyes: No: Visual changes HENT: No: Headaches Cardiovascular: No: Chest Pain or Discomfort Respiratory: Positive: Cough, Shortness of Breath, Wheezing Gastrointestinal: Positive: Nausea, Vomiting, No: Diarrhea, Abdominal Pain Genitourinary: No: Dysuria Musculoskeletal: No: Pain Skin: No Rash Neurologic: No: Weakness Psychiatric: No: Depression Endocrine: No: Polydipsia Hematologic/Lymphatic: No: Easy Bruising Physical Exam Narrative General: The patient is a well-developed thin appearing male, tachypneic on my arrival to the room with intermittent dry coughing. The patient has accessory muscle use noted. The patient's O2 saturation on room air goes as low as 85%. Head and Neck exam: Head is normocephalic atraumatic. Eyes: EOMI, pupils are equal round and reactive to light. Nose: Midline septum with pink mucous membranes Mouth: Dentition unremarkable. Moist mucus membranes. Posterior oropharynx is not erythematous. No tonsillar hypertrophy. Uvula midline. Airway patent. Neck: No palpable lymphadenopathy. No nuchal rigidity. No thyromegaly. Cardiovascular: Sinus tachycardia in the low 100s without murmurs, gallops, or rubs. No pulse deficit to the extremities on simultaneous auscultation and palpation of his radial artery Lungs: Decreased air movement bilaterally with expiratory wheezing. Decreased breath sounds in the bases. No rhonchi, no crackles audible. Abdomen: Soft, without tenderness to palpation in all 4 quadrants of the abdomen. No guarding, rebound, or rigidity. Normal bowel sounds are audible. No tenderness on palpation of McBurney's point. Negative [place] sign. Extremities: No clubbing or cyanosis. The patient has chronic edema of the left upper and left lower extremity related to paresis from a prior stroke. 2+ pulses in all 4 extremities. No calf tenderness on palpation. Back: No costovertebral angle tenderness to palpation. Neurologic Exam: At baseline given his history of paresis of the left upper and left lower extremity related to a prior stroke. Skin Exam: No rash noted. Intact skin that is warm and dry. Data Data Last Documented VS Vital Signs Date Time Temp Pulse Resp B/P Pulse Ox O2 Delivery O2 Flow Rate FiO2 09/19/16 01:30 108 24 223/102 Nasal Cannula 4 09/19/16 00:17 95 09/18/16 23:00 98.6 Orders Complete Blood Count With Diff (09/18/16 23:11) Comprehensive Metabolic Panel (09/18/16 23:11) Lipase (09/18/16 23:11) Urinalysis - C+S If Indicated (09/18/16 23:11) Chest, Single Ap (09/18/16 23:11) Ecg Monitoring (09/18/16 23:11) Oximetry (09/18/16 23:11) Iv Access Insert/Monitor (09/18/16 23:11) B-Type Natriuretic Peptide (09/18/16 23:44) Ondansetron Inj (Zofran Inj) (09/18/16 23:45) Oxygen Administration (09/18/16 23:44) Methylprednisolone So Succ Inj (Solumedr (09/18/16 23:45) Albuterol-Ipratropium Neb (Duoneb Neb) (09/18/16 23:45) Admit Order (Ed Use Only) (09/19/16 02:07) Labs Laboratory Tests Test 09/18/16 23:45 White Blood Count 11.8 TH/MM3 Red Blood Count 3.00 MIL/MM3 Hemoglobin 8.2 GM/DL Hematocrit 25.4 % Mean Corpuscular Volume 84.7 FL Mean Corpuscular Hemoglobin 27.4 PG Mean Corpuscular Hemoglobin 32.3 % Concent Red Cell Distribution Width 17.9 % Platelet Count 342 TH/MM3 Mean Platelet Volume 7.4 FL Neutrophils (%) (Auto) 72.0 % Lymphocytes (%) (Auto) 15.7 % Monocytes (%) (Auto) 9.3 % Eosinophils (%) (Auto) 2.0 % Basophils (%) (Auto) 1.0 % Neutrophils # (Auto) 8.5 TH/MM3 Lymphocytes # (Auto) 1.9 TH/MM3 Monocytes # (Auto) 1.1 TH/MM3 Eosinophils # (Auto) 0.2 TH/MM3 Basophils # (Auto) 0.1 TH/MM3 CBC Comment DIFF FINAL Differential Comment Urine Color LIGHT-YELLOW Urine Turbidity CLEAR Urine pH 7.0 Urine Specific [place] 1.012 Urine Protein 30 mg/dL Urine Glucose (UA) 300 mg/dL Urine Ketones NEG mg/dL Urine Occult Blood NEG Urine Nitrite NEG Urine Bilirubin NEG Urine Urobilinogen LESS THAN 2.0 MG/DL Urine Leukocyte Esterase NEG Urine RBC LESS THAN 1 /hpf Urine WBC 1 /hpf Urine Mucus FEW /lpf Microscopic Urinalysis Comment CULT NOT INDICATED Sodium Level 138 MEQ/L Potassium Level 3.5 MEQ/L Chloride Level 102 MEQ/L Carbon Dioxide Level 27.9 MEQ/L Anion Gap 8 MEQ/L Blood Urea Nitrogen 17 MG/DL Creatinine 1.18 MG/DL Estimat Glomerular Filtration 64 ML/MIN Rate Random Glucose 113 MG/DL Calcium Level 8.7 MG/DL Total Bilirubin 0.2 MG/DL Aspartate Amino Transf 29 U/L (AST/SGOT) Alanine Aminotransferase 54 U/L (ALT/SGPT) Alkaline Phosphatase 119 U/L B-Type Natriuretic Peptide 2864 PG/ML Total Protein 7.1 GM/DL Albumin 3.0 GM/DL Lipase 150 U/L [facility] Medical Decision Making Medical Screen Exam Complete: Yes Emergency Medical Condition: Yes Medical Record Reviewed: Yes Interpretation(s) Last Impressions Chest X-Ray 09/18/16 9411 Signed Impressions: Service Date/Time: Sunday, September 18, 2016 23:07 - CONCLUSION: No acute findings. 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 Rg Montenegro MD Differential Diagnosis Pneumothorax, versus pneumonia, versus COPD exacerbation, versus congestive heart failure exacerbation Narrative Course During the course of the patients emergency department visit, the patients history, examination, and differential diagnosis were reviewed with the patient. The patient had IV access obtained and blood work sent for analysis. The patient was placed on a campus monitor with oximetry and blood pressure monitoring. The patient's electronic medical record was reviewed. No blood work was done during his evaluation earlier today. The patient was initially provided DuoNeb 3, Solu-Medrol 125 mg IV. The patient was given Vasotec 1.25 mg IV for his elevated blood pressure. The patients laboratory studies were reviewed and remarkable for white count of 11.8, hemoglobin 8.2 which is at the patient's baseline compared to prior evaluations, hemoglobin 25.4, platelets 342 with 72 neutrophils, CMP is remarkable for glucose 113, alkaline phosphatase 119, lipase 150, BNP is 2864. Urinalysis is unremarkable Radiology studies were reviewed and remarkable for a chest x-ray that shows no acute findings, chronic right apical scarring and left apical bulla. The patient on reexamination has improvement in his aeration with no further respiratory distress, O2 saturations are 95% on on 4 L. The patients results were discussed with the patient, including the plan of care. I explained that further testing and/ or monitoring is indicated based on the patients history, examination, and/ or laboratory findings. Therefore, I recommended admission for additional evaluation. The patient expressed understanding and was agreeable with this plan. The patient was admitted to the hospital in stable condition and sent to a bed under the care of the [facility]. Physician Communication Physician Communication The patient's case was discussed with Dr. Oleary who did agree to admit the patient for further evaluation and treatment at this time. Diagnosis Primary Impression: COPD exacerbation Admitting Information Admitting Physician Requests: Admit Kylie Young MD Sep 19, 2016 00:06
[2016-09-19 00:10] LABS: AUTOMATED NEUTROPHIL # 8.5 TH/MM3 (1.8-7.7); BASOPHIL # 0.1 TH/MM3 (0-0.2); EOSINOPHIL # 0.2 TH/MM3 (0-0.4); HEMATOCRIT 25.4 % (39.0-51.0); HEMO FLAGS DIFF FINAL; LYMPH % 15.7 % (9.0-44.0); LYMPHOCYTE # 1.9 TH/MM3 (1.0-4.8); MEAN CELL VOLUME 84.7 FL (80.0-100.0); MEAN CORPUSCULAR HEMOGLOBIN 27.4 PG (27.0-34.0); MEAN CORPUSCULAR HGB CONC 32.3 % (32.0-36.0); MONO % 9.3 % (0.0-8.0); PLATELET COUNT 342 TH/MM3 (150-450); RED CELL DISTRIBUTION WIDTH 17.9 % (11.6-17.2); WHITE BLOOD COUNT 11.8 TH/MM3 (4.0-11.0)
[2016-09-19 00:13] LABS: BLOOD, URINE NEG (NEG); GLUCOSE,URINE 300 mg/dL (NEG); KETONE, URINE NEG (NEG); MUCUS URINE FEW /lpf (OCC); NITRITE,URINE NEG (NEG); URINE COLOR LIGHT-YELLOW (YELLW/STRAW)
[2016-09-19 00:14] LABS: COMMENT (UR) CULT NOT INDICATED; CULTURE IF INDICATED CULT NOT INDICATED
[2016-09-19 01:39] LABS: ALT (GPT) 54 U/L (12-78); ANION GAP 8 MEQ/L (5-15); AST (GOT) 29 U/L (15-37); BICARBONATE 27.9 MEQ/L (21.0-32.0); BLOOD UREA NITROGEN 17 MG/DL (7-18); CHLORIDE 102 MEQ/L (98-107); GLOMERULAR FILTRATION RATE 64 ML/MIN (>89); POTASSIUM 3.5 MEQ/L (3.5-5.1); SODIUM (NA) 138 MEQ/L (136-145)
[2016-09-19 01:41] LABS: ALKALINE PHOSPHATASE 119 U/L (45-117); TOTAL BILIRUBIN ADULT 0.2 MG/DL (0.2-1.0)
[2016-09-19] MEDS ORDERED: ENALAPRILAT 1.25 MG/ML VIAL IV PUSH ONE (02:15)
[2016-09-19] MEDS ORDERED: NALOXONE HCL 0.4 MG/ML AMP IV PRN (02:30)
[2016-09-19] MEDS ORDERED: FUROSEMIDE 40 MG/4 ML VIAL IV PUSH ONE (02:30)
[2016-09-19] MEDS ORDERED: RESP: ALBUTEROL 2.5 MG/IPRATROPIUM 0.5 MG NEB (PRN) NEB (02:30)
--- NOTE | 2016-09-19 04:27 | HHI.HP ---
HPI Service [facility] Primary Care Physician No Primary Care Physician Admission Diagnosis COPD exacerbation Diagnoses: Chief Complaint: Dyspnea Travel History International Travel<30 Days: No Contact w/Intl Traveler <30 Da: No Traveled to Known Affected Are: No Sepsis Criteria SIRS Criteria (2 or more): Heart rate over 90, WBC > 20388, < 4000 or > 10% bands Sepsis Criteria (SIRS+source): Infect source susp/known History of Present Illness Written by MANISH Austin acting as scribe for [Anirudh] on 09/19/16 at 04: 19. 56 y.o male with a history of hypertension, COPD, arthritis, chronic anemia, and pneumothorax came to hospital cause he states he cant live in the streets anymore. He complains of dizziness, nausea, and vomiting 1-2 times last night. He states his emesis is brown in color. Denies any fevers, abdominal pain, or chest pain. He was seen yesterday in the ER for an ulcer on his left heal, and states he has not started the antibiotics. He has had this ulcer for at least one week. He states he does have sob that comes and goes worse when he walks around. He states he has not been on medications for any of his chronic medical conditions for quite some time. Review of Systems Except as stated in HPI: all other systems reviewed are Neg Past Family Social History Past Medical History Hypertension Arthritis Pneumothorax - chest tube 2008 resolved after two chest tubes COPD Anemia Past Surgical History right ankle orif 1983 Chest tubes 2 2008 Reported Medications Reported Meds & Active Scripts Active Allergies: Coded Allergies: No Known Allergies (Verified , 09/19/16) Active Ordered Medications Current Medications Medications (Trade) Dose Ordered Sig/Mohit Route Start Time Stop Time Status Last Admin (NS Flush) 2 ml UNSCH PRN IV FLUSH 09/19/16 02:30 (NS Flush) 2 ml BID IV FLUSH 09/19/16 09:00 (Narcan Inj) 0.4 mg UNSCH PRN IV 09/19/16 02:30 (Lasix Inj) 40 mg BID@,18 IV PUSH 09/19/16 09:00 Family History Mother diabetes Father from colon cancer Denies family history of heart problems Social History Tobacco: smokes 1 PPD x 40 years ETOH: denies drinking routinely - drinks two times per week Physical Exam Vital Signs Vital Signs Date Time Temp Pulse Resp B/P Pulse Ox O2 Delivery O2 Flow Rate FiO2 09/19/16 03:45 105 15 165/75 100 Nasal Cannula 4 09/19/16 02:37 104 24 144/61 100 Nasal Cannula 09/19/16 02:25 101 20 208/71 99 Nasal Cannula 09/19/16 01:30 108 24 223/102 Nasal Cannula 4 09/19/16 00:17 110 24 224/101 95 Nasal Cannula 4 09/19/16 00:09 99 Nasal Cannula 4 09/18/16 23:58 96 Nasal Cannula 4.00 09/18/16 23:00 98.6 102 20 214/93 95 Physical Exam GENERAL: This is a thin, very pale patient SKIN: Very pale looking. Left heel ulcer open to air, no drainage noted HEAD: Atraumatic. Normocephalic. EYES: Pupils equal round and reactive. Extraocular motions intact. ENT: Nose without bleeding, purulent drainage or septal hematoma. Airway patent. NECK: Trachea midline. No JVD or lymphadenopathy. CARDIOVASCULAR: Regular rate and rhythm without murmurs, gallops, or rubs. RESPIRATORY: Clear to auscultation. Breath sounds equal bilaterally. No wheezes , rales, or rhonchi. GASTROINTESTINAL: Abdomen soft, non-tender, nondistended. No hepato-splenomegaly , or palpable masses. No guarding. MUSCULOSKELETAL: +2 pitting edema bilateral lower extremities. No joint tenderness, effusion, or edema noted. No calf tenderness. NEUROLOGICAL: Sleepy and alert. Motor and sensory grossly within normal limits. Normal speech. Laboratory Laboratory Tests Test 09/18/16 23:45 White Blood Count 11.8 Red Blood Count 3.00 Hemoglobin 8.2 Hematocrit 25.4 Mean Corpuscular Volume 84.7 Mean Corpuscular Hemoglobin 27.4 Mean Corpuscular Hemoglobin 32.3 Concent Red Cell Distribution Width 17.9 Platelet Count 342 Mean Platelet Volume 7.4 Neutrophils (%) (Auto) 72.0 Lymphocytes (%) (Auto) 15.7 Monocytes (%) (Auto) 9.3 Eosinophils (%) (Auto) 2.0 Basophils (%) (Auto) 1.0 Neutrophils # (Auto) 8.5 Lymphocytes # (Auto) 1.9 Monocytes # (Auto) 1.1 Eosinophils # (Auto) 0.2 Basophils # (Auto) 0.1 CBC Comment DIFF FINAL Differential Comment Urine Color LIGHT-YELLOW Urine Turbidity CLEAR Urine pH 7.0 Urine Specific [place] 1.012 Urine Protein 30 Urine Glucose (UA) 300 Urine Ketones NEG Urine Occult Blood NEG Urine Nitrite NEG Urine Bilirubin NEG Urine Urobilinogen LESS THAN 2.0 Urine Leukocyte Esterase NEG Urine RBC LESS THAN 1 Urine WBC 1 Urine Mucus FEW Microscopic Urinalysis Comment CULT NOT INDICATED Sodium Level 138 Potassium Level 3.5 Chloride Level 102 Carbon Dioxide Level 27.9 Anion Gap 8 Blood Urea Nitrogen 17 Creatinine 1.18 Estimat Glomerular Filtration 64 Rate Random Glucose 113 Calcium Level 8.7 Total Bilirubin 0.2 Aspartate Amino Transf 29 (AST/SGOT) Alanine Aminotransferase 54 (ALT/SGPT) Alkaline Phosphatase 119 B-Type Natriuretic Peptide 2864 Total Protein 7.1 Albumin 3.0 Lipase 150 Result Diagram: 09/18/16 2345 09/18/16 2345 Imaging Last Impressions Chest X-Ray 09/18/16 2311 Signed Impressions: Service Date/Time: Sunday, September 18, 2016 23:07 - CONCLUSION: No acute findings. 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 Rg Montenegro MD Assessment and Plan Problem List: (1) CHF exacerbation ICD Code: I50.9 Status: Acute (2) Cellulitis of left foot ICD Code: L03.116 Status: Acute (3) Leukocytosis ICD Code: D72.829 Status: Acute Assessment and Plan 56 y.o male with a history of hypertension, COPD, arthritis, and pneumothorax came to hospital cause he states he cant live in the streets anymore. He complains of dizziness, nausea, and vomiting 1-2 times last night. CHF exacerbation, BNP 2864 Last echo July 2016 shows an EF of 35-40% -Lasix IV twice a day -Strict I's and O's Leukocytosis, WBC 11.8, suspected infection in left heel ulcer, sepsis by criteria with a heart rate of 110 -Levaquin by mouth daily -Trend CBC COPD exacerbation, likely enhanced by fluid overload Images reviewed chest x-ray shows no acute findings, chronic right apical scarring and left apical bulla -DuoNeb's scheduled -O2 as needed DVT prophylaxis: SCDs This note was transcribed by scribramiro [Joyce Gonzalez]. I, Dr. Sangeeta Oleary personally performed the history, physical exam, and medical decision making; and confirmed the accuracy of the information in the transcribed note. Authenticated by Dr. Sangeeta Oleary on 09/19/16 at 03:18. Discussed Condition With Patient, RN and ED physician Joyce Gonzalez Sep 19, 2016 04:27 Sangeeta Oleary MD Sep 19, 2016 06:21
[2016-09-19] MEDS ORDERED: POTASSIUM CHLORIDE 25 MEQ EFFERVESCENT TAB PO ONE (04:45)
[2016-09-19] MEDS: SODIUM CHLORIDE 0.9% FLUSH 10 ML FLUSH IV FLUSH SCH ×2 (07:55→20:04)
[2016-09-19] MEDS: LEVOFLOXACIN 750 MG TAB PO SCH (07:55)
[2016-09-19] MEDS: FUROSEMIDE 40 MG/4 ML VIAL IV PUSH SCH ×2 (07:56→17:49)
--- NOTE | 2016-09-19 13:13 | HHI.PR ---
Subjective Remarks Follow up for shortness of breath with COPD/CHF exacerbation. The patient is seen sleeping in bed, awakens to answer questions however is very short with answers and non-conversational. He says he is tired and weak. He reports continued shortness of breath, slightly improved compared to yesterday. Denies any chest pain, cough, fevers/chills. He states he hasn't been taking any medications for at least a couple months. He believes he had some leg swelling prior to arrival but that has since resolved. His O2 sat is 100% on 2L NC. He does not wear oxygen outside of the hospital. Objective Vitals Vital Signs Date Time Temp Pulse Resp B/P Pulse Ox O2 Delivery O2 Flow Rate FiO2 09/19/16 11:22 97.6 85 14 137/65 100 09/19/16 07:30 98.5 84 14 154/70 100 09/19/16 05:44 97.8 99 18 123/59 100 09/19/16 05:38 91 09/19/16 03:45 105 15 165/75 100 Nasal Cannula 4 09/19/16 02:37 104 24 144/61 100 Nasal Cannula 09/19/16 02:25 101 20 208/71 99 Nasal Cannula 09/19/16 01:30 108 24 223/102 Nasal Cannula 4 09/19/16 00:17 110 24 224/101 95 Nasal Cannula 4 09/19/16 00:09 99 Nasal Cannula 4 09/18/16 23:58 96 Nasal Cannula 4.00 09/18/16 23:00 98.6 102 20 214/93 95 I/O 09/18/16 09/18/16 09/18/16 09/19/16 09/19/16 09/19/16 07:00 15:00 23:00 07:00 15:00 23:00 Output Total 800 ml 1400 ml Balance -800 ml -1400 ml Output Urine Total 800 ml 1400 ml # Voids 1 Result Diagram: 09/18/16 2345 09/18/16 2345 Imaging Last Impressions Chest X-Ray 09/18/16 2311 Signed Impressions: Service Date/Time: Sunday, September 18, 2016 23:07 - CONCLUSION: No acute findings. 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 Rg Montenegro MD Objective Remarks GENERAL: Thin cachectic appearing middle aged male patient in NAD. Drowsy, awakens to voice, but non-conversational. SKIN: Warm and dry. Left heel with ulcer. HEENT: Normocephalic. Atraumatic.Pupils equal and round. Mucous membranes pink and moist. NECK: Supple. Trachea midline. CARDIOVASCULAR: Regular rate and rhythm. S1, S2 noted. No murmur appreciated. RESPIRATORY: No accessory muscle use. Breath sounds slightly diminished at bilateral bases, otherwise clear to auscultation. No wheezing/crackles. Breath sounds equal bilaterally. GASTROINTESTINAL: Abdomen soft, non-tender, nondistended. Normoactive bowel sounds x4. MUSCULOSKELETAL: No obvious deformities. Extremities without clubbing, cyanosis , or edema. NEUROLOGICAL: Awake and alert. No obvious cranial nerve deficits. Motor grossly within normal limits. Normal speech. PSYCHIATRIC: Appropriate mood and affect; insight and judgment normal. Medications and IVs Current Medications Medications (Trade) Dose Ordered Sig/Mohit Route Start Time Stop Time Status Last Admin (NS Flush) 2 ml UNSCH PRN IV FLUSH 09/19/16 02:30 (NS Flush) 2 ml BID IV FLUSH 09/19/16 09:00 09/19/16 07:55 (Narcan Inj) 0.4 mg UNSCH PRN IV 09/19/16 02:30 (Lasix Inj) 40 mg BID@,18 IV PUSH 09/19/16 09:00 09/19/16 07:56 (Levaquin) 750 mg DAILY PO 09/19/16 09:00 09/19/16 07:55 A/P Problem List: (1) CHF exacerbation ICD Code: I50.9 Status: Acute (2) Cellulitis of left foot ICD Code: L03.116 Status: Acute (3) Leukocytosis ICD Code: D72.829 Status: Acute Assessment and Plan 56 y.o male with a history of hypertension, COPD, arthritis, and pneumothorax came to hospital cause he states he cant live in the streets anymore. He complains of dizziness, nausea, and vomiting 1-2 times last night. Acute Exacerbation of Chronic Systolic CHF, Failed Outpatient: BNP elevated at 2864. Echocardiogram July 2016 shows an EF of 35-40% and Grade 2 Diastolic Dysfunction. -Recently evaluated by cardiology 09/10/16, recommended medical management; not a candidate for defibrillator due to noncompliance and lack of f/up; needs to improve compliance with medications -Continue diuresis with Lasix IV 40mg bid, with plan to decrease to po lasix 20mg bid tomorrow am -Restart patient's meds including lisinopril 5mg daily, coreg 3.125mg bid, aspirin 81mg daily, atorvastatin 20mg hs -Monitor Strict I's and O's, Fluid restrictions -monitor for improvement Sepsis: meets sepsis criteria with tachycardia HR 110 and tachypnea RR 24, Leukocytosis WBC 11.8K, suspected infection in left heel ulcer -Continue Levaquin 750mg po qd -Monitor CBC COPD exacerbation: mild, suspect worsened by fluid overload. CXR images reviewed , shows no acute findings, chronic right apical scarring and left apical bulla -Continue DuoNeb's scheduled -O2 as needed, wean to keep O2 sat > 92% -monitor for improvement Noncompliance: patient VERY noncompliant, has not taken medications in months, does not follow up, has had 17 hospital visits in the past 2.5 weeks since . -counseled on importance of compliance to medical regimen -case management to assist with discharge planning DVT prophylaxis: SCDs Discharge Planning Discharge pending further clinical improvement. Can likely discharge in 1-2 days. Rosemary Garcia PA-C Sep 19, 2016 1:13 pm
[2016-09-19] MEDS: SODIUM CHLORIDE 0.9% FLUSH 10 ML FLUSH IV FLUSH PRN (16:55)
[2016-09-19] MEDS: ENALAPRILAT 1.25 MG/ML VIAL IV PUSH PRN (16:55)
[2016-09-19] MEDS: CARVEDILOL 3.125 MG TAB PO SCH (20:04)
[2016-09-19] MEDS: ATORVASTATIN 20 MG TAB PO SCH (20:04)
[2016-09-20] VITALS (17 sets, daily range): BP systolic 118–220; BP diastolic 55–100; PULSE 61–102; RESP 16–18; TEMP 97.6–98.5; O2SAT 97–100
[2016-09-20] MEDS: ENALAPRILAT 1.25 MG/ML VIAL IV PUSH PRN (07:57)
[2016-09-20] MEDS: SODIUM CHLORIDE 0.9% FLUSH 10 ML FLUSH IV FLUSH PRN (07:57)
[2016-09-20] MEDS: LEVOFLOXACIN 750 MG TAB PO SCH (08:31)
[2016-09-20] MEDS: SODIUM CHLORIDE 0.9% FLUSH 10 ML FLUSH IV FLUSH SCH ×2 (08:31→21:00)
[2016-09-20] MEDS: ASPIRIN EC 81 MG TABEC PO SCH (08:31)
[2016-09-20] MEDS: CARVEDILOL 3.125 MG TAB PO SCH ×2 (08:31→21:21)
[2016-09-20] MEDS: FUROSEMIDE 20 MG TAB PO SCH ×2 (08:32→17:20)
[2016-09-20] MEDS ORDERED: LISINOPRIL 5 MG TAB PO SCH (09:00)
[2016-09-20] MEDS ORDERED: CARV3.125 PO (09:38)
[2016-09-20] MEDS ORDERED: ASPI-99 PO (09:38)
[2016-09-20] MEDS ORDERED: LEVA750T9 PO (09:38)
[2016-09-20] MEDS ORDERED: ATOR20TA15 PO (09:38)
[2016-09-20] MEDS ORDERED: FURO20TA PO (09:38)
[2016-09-20] MEDS ORDERED: LISI10TA3 PO (09:40)
[2016-09-20 12:32] LABS: BICARBONATE 32.3 MEQ/L (21.0-32.0); MAGNESIUM 2.1 MG/DL (1.5-2.5); POTASSIUM 3.3 MEQ/L (3.5-5.1)
[2016-09-20 12:38] LABS: AUTOMATED NEUTROPHIL # 7.7 TH/MM3 (1.8-7.7); BASOPHIL # 0.1 TH/MM3 (0-0.2); BASOPHIL % 0.6 % (0.0-2.0); EOSINOPHIL # 0.1 TH/MM3 (0-0.4); EOSINOPHIL % 0.8 % (0.0-4.0); HEMATOCRIT 26.8 % (39.0-51.0); HEMO FLAGS DIFF FINAL; LYMPH % 10.2 % (9.0-44.0); LYMPHOCYTE # 0.9 TH/MM3 (1.0-4.8); MEAN CELL VOLUME 84.7 FL (80.0-100.0); MEAN CORPUSCULAR HGB CONC 31.8 % (32.0-36.0); MONO % 4.7 % (0.0-8.0); NEUT % 83.7 % (16.0-70.0); PLATELET COUNT 333 TH/MM3 (150-450); RED BLOOD COUNT 3.16 MIL/MM3 (4.50-5.90); RED CELL DISTRIBUTION WIDTH 18.3 % (11.6-17.2); WHITE BLOOD COUNT 9.2 TH/MM3 (4.0-11.0)
[2016-09-20] MEDS ORDERED: POTASSIUM CHLORIDE 20 MEQ CONTROLLED RELEASE TAB PO ONE (14:15)
--- NOTE | 2016-09-20 15:49 | HHI.PR ---
Subjective Remarks Follow up for SOB with COPD/CHF exacerbation, uncontrolled hypertension. The patient reports feeling better again today. Denies any shortness of breath or chest pain. Denies cough or fevers/chills. O2 sat stable on room air. Objective Vitals Vital Signs Date Time Temp Pulse Resp B/P Pulse Ox O2 Delivery O2 Flow Rate FiO2 09/20/16 12:30 98.3 78 16 118/55 97 09/20/16 08:19 98.4 61 18 174/74 97 170/76 09/20/16 08:06 196/81 09/20/16 07:54 220/100 09/20/16 04:50 68 09/20/16 03:31 97.9 18 165/75 98 09/20/16 00:28 168/76 09/20/16 00:15 98.5 65 18 180/77 97 09/19/16 23:57 73 09/19/16 20:15 74 09/19/16 19:36 21 09/19/16 19:26 98.0 81 18 144/65 98 09/19/16 16:07 184/78 09/19/16 15:48 99.3 86 16 172/78 97 167/72 I/O 09/19/16 09/19/16 09/19/16 09/20/16 09/20/16 09/20/16 07:00 15:00 23:00 07:00 15:00 23:00 Output Total 800 ml 1400 ml 150 ml 775 ml Balance -800 ml -1400 ml -150 ml -775 ml Output Urine Total 800 ml 1400 ml 150 ml 775 ml # Voids 1 1 1 2 1 # Bowel Movements 1 Result Diagram: 09/20/16 1151 09/20/16 1151 Imaging Last Impressions Chest X-Ray 09/18/16 2311 Signed Impressions: Service Date/Time: Sunday, September 18, 2016 23:07 - CONCLUSION: No acute findings. 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 Rg Montenegro MD Objective Remarks GENERAL: Thin cachectic appearing middle aged male patient in [facility]. SKIN: Warm and dry. Left heel with dry ulcer. HEENT: Normocephalic. Atraumatic.Pupils equal and round. Mucous membranes pink and moist. CARDIOVASCULAR: Regular rate and rhythm. S1, S2 noted. No murmur appreciated. RESPIRATORY: No accessory muscle use. Clear to auscultation. No wheezing/ crackles. Breath sounds equal bilaterally. GASTROINTESTINAL: Abdomen soft, non-tender, nondistended. Normoactive bowel sounds x4. MUSCULOSKELETAL: No obvious deformities. Extremities without clubbing, cyanosis , or edema. NEUROLOGICAL: Awake and alert. No obvious cranial nerve deficits. Motor grossly within normal limits. Normal speech. PSYCHIATRIC: Appropriate mood and affect; insight and judgment normal. Medications and IVs Current Medications Medications (Trade) Dose Ordered Sig/Mohit Route Start Time Stop Time Status Last Admin (NS Flush) 2 ml UNSCH PRN IV FLUSH 09/19/16 02:30 09/20/16 07:57 (NS Flush) 2 ml BID IV FLUSH 09/19/16 09:00 09/20/16 08:31 (Narcan Inj) 0.4 mg UNSCH PRN IV 09/19/16 02:30 (Levaquin) 750 mg DAILY PO 09/19/16 09:00 09/20/16 08:31 (Coreg) 3.125 mg Q12HR PO 09/19/16 21:00 09/20/16 08:31 (Ecotrin Ec) 81 mg DAILY PO 09/20/16 09:00 09/20/16 08:31 (Lipitor) 20 mg HS PO 09/19/16 21:00 09/19/16 20:04 (Lasix) 20 mg BID@09,18 PO 09/20/16 09:00 09/20/16 08:32 (Vasotec Inj) 1.25 mg Q6H PRN IV PUSH 09/19/16 16:15 09/20/16 07:57 (Prinivil) 10 mg DAILY PO 09/21/16 09:00 A/P Problem List: (1) CHF exacerbation ICD Code: I50.9 Status: Acute (2) Cellulitis of left foot ICD Code: L03.116 Status: Acute (3) Leukocytosis ICD Code: D72.829 Status: Acute Assessment and Plan 56 y.o male with a history of hypertension, COPD, arthritis, and pneumothorax came to hospital cause he states he cant live in the streets anymore. He complains of dizziness, nausea, and vomiting 1-2 times last night. Acute Exacerbation of Chronic Systolic CHF, Failed Outpatient: BNP elevated at 2864. Echocardiogram July 2016 shows an EF of 35-40% and Grade 2 Diastolic Dysfunction. -Recently evaluated by cardiology 09/10/16, recommended medical management; not a candidate for defibrillator due to noncompliance and lack of f/up; needs to improve compliance with medications -S/p IV lasix 40mg bid, now decreased to lasix 20mg po bid -Restart patient's meds including lisinopril 5mg daily, coreg 3.125mg bid, aspirin 81mg daily, atorvastatin 20mg hs -Monitor Strict I's and O's, Fluid restrictions -much improved, BNP decreased from 2864 to 631, stable on room air Sepsis: meets sepsis criteria with tachycardia HR 110 and tachypnea RR 24, Leukocytosis WBC 11.8K, suspected infection in left heel ulcer vs early pneumonia -Continue Levaquin 750mg po qd -CBC improved, leukocytosis resolved. COPD exacerbation: mild, suspect worsened by fluid overload. CXR images reviewed , shows no acute findings, chronic right apical scarring and left apical bulla -Continue DuoNeb's scheduled -O2 as needed, wean to keep O2 sat > 92% -monitor for improvement Noncompliance: patient VERY noncompliant, has not taken medications in months, does not follow up, has had 17 hospital visits in the past 2.5 weeks since . -counseled on importance of compliance to medical regimen -case management to assist with discharge planning, has filled all prescriptions SHANTELLE: worsening renal function overnight, BUN increased from 17 to 30, and Cr increased from 1.18 to 1.41 -decreased diuresis -avoid nephrotoxins -repeat BMP in am Normocytic Anemia: Hgb 8.5, chronic, consistent with baseline -no signs of bleeding -continue ferrous sulfate bid DVT prophylaxis: SCDs Discharge Planning Discharge pending further clinical improvement. Can likely discharge tomorrow if renal function improves. Rosemary Garcia PA-C Sep 20, 2016 3:49 pm
[2016-09-20] MEDS: FERROUS SULFATE 325 MG (65 MG ELEMENTAL IRON) TAB PO SCH (17:20)
[2016-09-20] MEDS: ATORVASTATIN 20 MG TAB PO SCH (21:21)
[2016-09-21] VITALS (7 sets, daily range): BP systolic 125–189; BP diastolic 59–80; PULSE 66–79; RESP 16–20; TEMP 97.8–98.7; O2SAT 98–99
[2016-09-21] MEDS: LISINOPRIL 10 MG TAB PO SCH (08:12)
[2016-09-21] MEDS: CARVEDILOL 3.125 MG TAB PO SCH ×2 (08:13→21:39)
[2016-09-21] MEDS: ASPIRIN EC 81 MG TABEC PO SCH (08:13)
[2016-09-21] MEDS: LEVOFLOXACIN 750 MG TAB PO SCH (08:13)
[2016-09-21] MEDS: FUROSEMIDE 20 MG TAB PO SCH ×2 (08:16→18:04)
[2016-09-21] MEDS: SODIUM CHLORIDE 0.9% FLUSH 10 ML FLUSH IV FLUSH SCH ×2 (08:16→21:39)
[2016-09-21 08:30] LABS: BICARBONATE 30.4 MEQ/L (21.0-32.0); POTASSIUM 3.7 MEQ/L (3.5-5.1)
--- NOTE | 2016-09-21 12:48 | HHI.PR ---
Subjective Remarks Follow up for COPD/CHF, uncontrolled HTN. The patient is more awake, alert today. He denies any chest pain or shortness of breath. He reports continued diffuse weakness. Had long discussion about discharge planning. The patient says he has 2 sons in [place] who want nothing to do with him. He states an officer talked to one of his sons the other day who continued to refuse to help him out. The patient is only walking 1-2 steps with a walker. He is asking if we can provide a wheelchair so he can get around easier and stop falling so much. He still has nowhere to go. Objective Vitals Vital Signs Date Time Temp Pulse Resp B/P Pulse Ox O2 Delivery O2 Flow Rate FiO2 09/21/16 12:07 98.2 71 18 154/67 98 09/21/16 08:00 67 09/21/16 07:22 98.1 66 16 189/74 98 09/21/16 04:26 97.9 66 18 173/76 99 09/21/16 00:22 97.8 68 18 132/80 98 09/20/16 23:51 98 09/20/16 19:54 98.5 82 18 130/78 98 09/20/16 16:58 160/72 09/20/16 16:45 97.6 69 18 186/79 100 09/20/16 16:05 71 09/20/16 13:35 76 I/O 09/20/16 09/20/16 09/20/16 09/21/16 09/21/16 09/21/16 07:00 15:00 23:00 07:00 15:00 23:00 Intake Total 200 ml 200 ml Output Total 775 ml Balance -775 ml 200 ml 200 ml Intake Oral 200 ml 200 ml Output Urine Total 775 ml # Voids 1 2 1 Result Diagram: 09/20/16 1151 09/21/16 0742 Imaging Last Impressions Chest X-Ray 09/18/16 2311 Signed Impressions: Service Date/Time: Sunday, September 18, 2016 23:07 - CONCLUSION: No acute findings. 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 Rg Montenegro MD Objective Remarks GENERAL: Thin cachectic appearing middle aged male patient in [facility]. SKIN: Warm and dry. Left heel with dry ulcer. HEENT: Normocephalic. Atraumatic.Pupils equal and round. Mucous membranes pink and moist. CARDIOVASCULAR: Regular rate and rhythm. S1, S2 noted. No murmur appreciated. RESPIRATORY: No accessory muscle use. Clear to auscultation. No wheezing/ crackles. Breath sounds equal bilaterally. GASTROINTESTINAL: Abdomen soft, non-tender, nondistended. Normoactive bowel sounds x4. MUSCULOSKELETAL: No obvious deformities. Extremities without clubbing, cyanosis , or edema. NEUROLOGICAL: Awake and alert. 2/5strength LUE/LLE. 4/5 strength RUE/RLE. Normal speech. PSYCHIATRIC: Appropriate mood and affect; insight and judgment normal. Medications and IVs Current Medications Medications (Trade) Dose Ordered Sig/Mohit Route Start Time Stop Time Status Last Admin (NS Flush) 2 ml UNSCH PRN IV FLUSH 09/19/16 02:30 09/20/16 07:57 (NS Flush) 2 ml BID IV FLUSH 09/19/16 09:00 09/21/16 08:16 (Narcan Inj) 0.4 mg UNSCH PRN IV 09/19/16 02:30 (Levaquin) 750 mg DAILY PO 09/19/16 09:00 09/21/16 08:13 (Coreg) 3.125 mg Q12HR PO 09/19/16 21:00 09/21/16 08:13 (Ecotrin Ec) 81 mg DAILY PO 09/20/16 09:00 09/21/16 08:13 (Lipitor) 20 mg HS PO 09/19/16 21:00 09/20/16 21:21 (Lasix) 20 mg BID@18 PO 09/20/16 09:00 09/21/16 08:16 (Vasotec Inj) 1.25 mg Q6H PRN IV PUSH 09/19/16 16:15 09/20/16 07:57 (Prinivil) 10 mg DAILY PO 09/21/16 09:00 09/21/16 08:12 (Ferrous Sulfate) 325 mg BID@12,17 PO 09/20/16 17:00 09/20/16 17:20 A/P Problem List: (1) CHF exacerbation ICD Code: I50.9 Status: Acute (2) Cellulitis of left foot ICD Code: L03.116 Status: Acute (3) Leukocytosis ICD Code: D72.829 Status: Acute Assessment and Plan 56-year-old male with a history of HTN, COPD, arthritis, and pneumothorax came to hospital cause he states he cant live in the streets anymore. He complains of dizziness, nausea, and vomiting 1-2 times last night. Acute Exacerbation of Chronic Systolic CHF, Failed Outpatient: BNP elevated at 2864. Echocardiogram July 2016 shows an EF of 35-40% and Grade 2 Diastolic Dysfunction. -Recently evaluated by cardiology 09/10/16, recommended medical management; not a candidate for defibrillator due to noncompliance and lack of f/up; needs to improve compliance with medications -S/p IV lasix 40mg bid, now decreased to lasix 20mg po bid -Restart patient's meds including lisinopril 5mg daily, coreg 3.125mg bid, aspirin 81mg daily, atorvastatin 20mg hs -Monitor Strict I's and O's, Fluid restrictions -much improved, BNP decreased from 2864 to 631, stable on room air Sepsis: meets sepsis criteria with tachycardia HR 110 and tachypnea RR 24, Leukocytosis WBC 11.8K, suspected infection in left heel ulcer vs early pneumonia -Continue Levaquin 750mg po qd -CBC improved, leukocytosis/sepsis resolved. COPD exacerbation: mild, suspect worsened by fluid overload. CXR images reviewed , shows no acute findings, chronic right apical scarring and left apical bulla -Continue DuoNeb's scheduled -O2 as needed, wean to keep O2 sat > 92% -monitor for improvement Noncompliance: patient VERY noncompliant, has not taken medications in months, does not follow up, has had 17 hospital visits in the past 2.5 weeks since . 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 Failed outpatient, multiple attempts, has visited ER almost every day since 09/01. -PT/OT recommending rehab -difficult placement due to no insurance and no home to arrange [facility] -continue daily PT DVT prophylaxis: SCDs Discharge Planning Discharge pending further clinical improvement. He is homeless and is unsafe discharge to the streets. He returned to the ED everyday for the past 17days. PT /OT recommending rehab. He has hx of stroke with residual left sided weakness. Ideally patient would benefit from placement however difficult with no insurance. Continue daily PT. Rosemary Garcia PA-C Sep 21, 2016 12:48 pm
[2016-09-21] MEDS: FERROUS SULFATE 325 MG (65 MG ELEMENTAL IRON) TAB PO SCH ×2 (13:27→18:04)
[2016-09-21] MEDS: ATORVASTATIN 20 MG TAB PO SCH (21:39)
[2016-09-22] VITALS (11 sets, daily range): BP systolic 101–186; BP diastolic 51–86; PULSE 62–80; RESP 16–18; TEMP 97.4–98.7; O2SAT 97–100
[2016-09-22] MEDS: LISINOPRIL 10 MG TAB PO SCH (08:07)
[2016-09-22] MEDS: CARVEDILOL 3.125 MG TAB PO SCH ×2 (08:08→20:27)
[2016-09-22] MEDS: ASPIRIN EC 81 MG TABEC PO SCH (08:08)
[2016-09-22] MEDS: SODIUM CHLORIDE 0.9% FLUSH 10 ML FLUSH IV FLUSH SCH ×2 (08:08→20:27)
[2016-09-22] MEDS: LEVOFLOXACIN 750 MG TAB PO SCH (08:08)
[2016-09-22] MEDS: FUROSEMIDE 20 MG TAB PO SCH ×2 (08:08→17:31)
[2016-09-22] MEDS: FERROUS SULFATE 325 MG (65 MG ELEMENTAL IRON) TAB PO SCH ×2 (11:24→17:31)
--- NOTE | 2016-09-22 13:54 | HHI.PR ---
Subjective Remarks Follow up for COPD/CHF, uncontrolled HTN, weakness, inability to ambulate. The patient is seen sleeping in bed, easily awakens. He complains of just feeling weak, no improvement. He attempted ambulation with PT today, walked 20feet with contact guard assist and walker. The patient is still requiring help to even use the bedside commode. Nursing staff also reports he needs help preparing his meals and bathing. He denies any chest pain, shortness of breath. Denies any specific medical complaints at this time. Objective Vitals Vital Signs Date Time Temp Pulse Resp B/P Pulse Ox O2 Delivery O2 Flow Rate FiO2 09/22/16 11:46 98.4 62 16 101/51 100 Manual Cuff/Auscultation 09/22/16 08:37 64 09/22/16 08:22 98 21 09/22/16 08:00 64 09/22/16 07:31 97.4 67 16 170/75 100 09/22/16 06:45 98.1 69 18 186/86 100 09/22/16 00:59 98.2 75 18 157/74 98 09/21/16 20:42 98.4 79 20 175/79 99 09/21/16 14:44 98.7 70 18 125/59 99 I/O 09/21/16 09/21/16 09/21/16 09/22/16 09/22/16 09/22/16 06:59 14:59 22:59 06:59 14:59 22:59 Intake Total 200 ml 560 ml 598 ml 200 ml Output Total 400 ml 250 ml Balance 200 ml 160 ml 348 ml 200 ml Intake Oral 200 ml 560 ml 596 ml 200 ml IV Total 2 ml Output Urine Total 400 ml 250 ml Result Diagram: 09/20/16 1151 09/21/16 0742 Imaging Last Impressions Chest X-Ray 09/18/16 2311 Signed Impressions: Service Date/Time: Sunday, September 18, 2016 23:07 - CONCLUSION: No acute findings. 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 Rg Montenegro MD Objective Remarks GENERAL: Thin cachectic appearing middle aged male patient in NAD. SKIN: Warm and dry. Left heel with dry ulcer. HEENT: Normocephalic. Atraumatic.Pupils equal and round. Mucous membranes pink and moist. CARDIOVASCULAR: Regular rate and rhythm. S1, S2 noted. No murmur appreciated. RESPIRATORY: No accessory muscle use. Clear to auscultation. No wheezing/ crackles. Breath sounds equal bilaterally. GASTROINTESTINAL: Abdomen soft, non-tender, nondistended. Normoactive bowel sounds x4. MUSCULOSKELETAL: No obvious deformities. Extremities without clubbing, cyanosis , or edema. NEUROLOGICAL: Awake and alert. 2/5strength LUE/LLE. 4/5 strength RUE/RLE. Normal speech. PSYCHIATRIC: Appropriate mood and affect; insight and judgment normal. Medications and IVs Current Medications Medications (Trade) Dose Ordered Sig/Mohit Route Start Time Stop Time Status Last Admin (NS Flush) 2 ml UNSCH PRN IV FLUSH 09/19/16 02:30 09/20/16 07:57 (NS Flush) 2 ml BID IV FLUSH 09/19/16 09:00 09/22/16 08:08 (Narcan Inj) 0.4 mg UNSCH PRN IV 09/19/16 02:30 (Levaquin) 750 mg DAILY PO 09/19/16 09:00 09/22/16 08:08 (Coreg) 3.125 mg Q12HR PO 09/19/16 21:00 09/22/16 08:08 (Ecotrin Ec) 81 mg DAILY PO 09/20/16 09:00 09/22/16 08:08 (Lipitor) 20 mg HS PO 09/19/16 21:00 09/21/16 21:39 (Lasix) 20 mg BID@,18 PO 09/20/16 09:00 09/22/16 08:08 (Vasotec Inj) 1.25 mg Q6H PRN IV PUSH 09/19/16 16:15 09/20/16 07:57 (Prinivil) 10 mg DAILY PO 09/21/16 09:00 09/22/16 08:07 (Ferrous Sulfate) 325 mg BID@12,17 PO 09/20/16 17:00 09/22/16 11:24 A/P Problem List: (1) CHF exacerbation ICD Code: I50.9 Status: Acute (2) Cellulitis of left foot ICD Code: L03.116 Status: Acute (3) Leukocytosis ICD Code: D72.829 Status: Acute Assessment and Plan 56-year-old male with a history of HTN, COPD, arthritis, and pneumothorax came to hospital cause he states he cant live in the streets anymore. He complains of dizziness, nausea, and vomiting 1-2 times last night. Acute Exacerbation of Chronic Systolic CHF, Failed Outpatient: BNP elevated at 2864. Echocardiogram July 2016 shows an EF of 35-40% and Grade 2 Diastolic Dysfunction. -Recently evaluated by cardiology 09/10/16, recommended medical management; not a candidate for defibrillator due to noncompliance and lack of f/up; needs to improve compliance with medications -S/p IV lasix 40mg bid, now decreased to lasix 20mg po bid -Restart patient's meds including lisinopril 5mg daily, coreg 3.125mg bid, aspirin 81mg daily, atorvastatin 20mg hs -Monitor Strict I's and O's, Fluid restrictions -much improved, BNP decreased from 2864 to 631, stable on room air Sepsis: meets sepsis criteria with tachycardia HR 110 and tachypnea RR 24, Leukocytosis WBC 11.8K, suspected infection in left heel ulcer vs early pneumonia -Continue Levaquin 750mg po qd -CBC improved, leukocytosis/sepsis resolved. COPD exacerbation: mild, suspect worsened by fluid overload. CXR images reviewed , shows no acute findings, chronic right apical scarring and left apical bulla -Continue DuoNeb's scheduled -O2 as needed, wean to keep O2 sat > 92% -monitor for improvement Noncompliance: patient VERY noncompliant, has not taken medications in months, does not follow up, has had 17 hospital visits in the past 2.5 weeks since . 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 Failed outpatient, multiple attempts, has visited ER almost every day since 09/01. -PT/OT recommending rehab -difficult placement due to no insurance and no home to arrange [facility] -continue daily PT DVT prophylaxis: SCDs Discharge Planning Discharge pending further clinical improvement. He is homeless and is unsafe discharge to the streets. He returned to the ED everyday for the past 17days. PT /OT recommending rehab. He has hx of stroke with residual left sided weakness. Ideally patient would benefit from placement however difficult with no insurance. Continue daily PT. Rosemary Garcia PA-C Sep 22, 2016 1:54 pm
[2016-09-22] MEDS: ATORVASTATIN 20 MG TAB PO SCH (20:27)
[2016-09-23] VITALS (13 sets, daily range): BP systolic 126–181; BP diastolic 60–81; PULSE 61–84; RESP 16–18; TEMP 97.6–98.9; O2SAT 96–100
[2016-09-23] MEDS: SODIUM CHLORIDE 0.9% FLUSH 10 ML FLUSH IV FLUSH SCH ×2 (09:27→20:29)
[2016-09-23 09:28] LABS: AUTOMATED NEUTROPHIL # 6.5 TH/MM3 (1.8-7.7); BASOPHIL # 0.1 TH/MM3 (0-0.2); EOSINOPHIL # 0.2 TH/MM3 (0-0.4); EOSINOPHIL % 2.4 % (0.0-4.0); HEMO FLAGS DIFF FINAL; LYMPH % 19.7 % (9.0-44.0); LYMPHOCYTE # 1.9 TH/MM3 (1.0-4.8); MEAN CELL VOLUME 86.4 FL (80.0-100.0); MEAN CORPUSCULAR HEMOGLOBIN 27.3 PG (27.0-34.0); MEAN CORPUSCULAR HGB CONC 31.6 % (32.0-36.0); MONO % 7.7 % (0.0-8.0); NEUT % 69.2 % (16.0-70.0); PLATELET COUNT 365 TH/MM3 (150-450); RED BLOOD COUNT 3.82 MIL/MM3 (4.50-5.90); RED CELL DISTRIBUTION WIDTH 17.7 % (11.6-17.2); WHITE BLOOD COUNT 9.5 TH/MM3 (4.0-11.0)
[2016-09-23] MEDS: CARVEDILOL 3.125 MG TAB PO SCH ×2 (09:28→20:29)
[2016-09-23] MEDS: LISINOPRIL 10 MG TAB PO SCH (09:28)
[2016-09-23] MEDS: ASPIRIN EC 81 MG TABEC PO SCH (09:28)
[2016-09-23] MEDS: LEVOFLOXACIN 750 MG TAB PO SCH (09:28)
[2016-09-23] MEDS: FUROSEMIDE 20 MG TAB PO SCH ×2 (09:29→17:31)
[2016-09-23 09:44] LABS: BICARBONATE 29.8 MEQ/L (21.0-32.0); POTASSIUM 3.9 MEQ/L (3.5-5.1)
--- NOTE | 2016-09-23 12:10 | HHI.PR ---
Subjective Remarks Follow up for COPD/CHF, uncontrolled HTN, weakness, inability to ambulate, unsafe discharge. The patient is currently awake, alert, oriented. He denies any chest pain or shortness of breath. He continues to report weakness and inability to ambulate, requiring assistance to use bedside commode. He still has nowhere to go. Objective Vitals Vital Signs Date Time Temp Pulse Resp B/P Pulse Ox O2 Delivery O2 Flow Rate FiO2 09/23/16 07:25 98.4 64 16 158/71 100 09/23/16 06:24 21 09/23/16 04:00 74 09/23/16 03:52 97.6 84 17 131/77 97 09/23/16 00:15 77 09/22/16 23:30 98.3 78 16 150/76 97 09/22/16 20:15 75 09/22/16 19:46 98.2 78 18 159/73 98 09/22/16 15:16 98.7 80 16 138/64 99 I/O 09/22/16 09/22/16 09/22/16 09/23/16 09/23/16 09/23/16 07:00 15:00 23:00 07:00 15:00 23:00 Intake Total 200 ml 240 ml Output Total 800 ml Balance 200 ml -560 ml Intake Oral 200 ml 240 ml Output Urine Total 800 ml Result Diagram: 09/23/16 0710 09/23/16 0710 Imaging Last Impressions Chest X-Ray 09/18/16 2311 Signed Impressions: Service Date/Time: Sunday, September 18, 2016 23:07 - CONCLUSION: No acute findings. 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 Rg Montenegro MD Objective Remarks GENERAL: Thin cachectic appearing middle aged male patient in NAD. SKIN: Warm and dry. Left heel with dry ulcer. HEENT: Normocephalic. Atraumatic.Pupils equal and round. Mucous membranes pink and moist. CARDIOVASCULAR: Regular rate and rhythm. S1, S2 noted. No murmur appreciated. RESPIRATORY: No accessory muscle use. Clear to auscultation. No wheezing/ crackles. Breath sounds equal bilaterally. GASTROINTESTINAL: Abdomen soft, non-tender, nondistended. Normoactive bowel sounds x4. MUSCULOSKELETAL: No obvious deformities. Extremities without clubbing, cyanosis , or edema. NEUROLOGICAL: Awake and alert. 2/5strength LUE/LLE. 4/5 strength RUE/RLE. Normal speech. PSYCHIATRIC: Appropriate mood and affect; insight and judgment normal. Medications and IVs Current Medications Medications (Trade) Dose Ordered Sig/Mohit Route Start Time Stop Time Status Last Admin (NS Flush) 2 ml UNSCH PRN IV FLUSH 09/19/16 02:30 09/20/16 07:57 (NS Flush) 2 ml BID IV FLUSH 09/19/16 09:00 09/23/16 09:27 (Narcan Inj) 0.4 mg UNSCH PRN IV 09/19/16 02:30 (Levaquin) 750 mg DAILY PO 09/19/16 09:00 09/23/16 09:28 (Coreg) 3.125 mg Q12HR PO 09/19/16 21:00 09/23/16 09:28 (Ecotrin Ec) 81 mg DAILY PO 09/20/16 09:00 09/23/16 09:28 (Lipitor) 20 mg HS PO 09/19/16 21:00 09/22/16 20:27 (Lasix) 20 mg BID@,18 PO 09/20/16 09:00 09/23/16 09:29 (Vasotec Inj) 1.25 mg Q6H PRN IV PUSH 09/19/16 16:15 09/20/16 07:57 (Prinivil) 10 mg DAILY PO 09/21/16 09:00 09/23/16 09:28 (Ferrous Sulfate) 325 mg BID@,17 PO 09/20/16 17:00 09/22/16 17:31 A/P Problem List: (1) CHF exacerbation ICD Code: I50.9 Status: Acute (2) Cellulitis of left foot ICD Code: L03.116 Status: Acute (3) Leukocytosis ICD Code: D72.829 Status: Acute Assessment and Plan 56-year-old male with a history of HTN, COPD, arthritis, and pneumothorax came to hospital cause he states he cant live in the streets anymore. He complains of dizziness, nausea, and vomiting 1-2 times last night. Acute Exacerbation of Chronic Systolic CHF, Failed Outpatient: BNP elevated at 2864. Echocardiogram July 2016 shows an EF of 35-40% and Grade 2 Diastolic Dysfunction. -Recently evaluated by cardiology 8/6/17, recommended medical management; not a candidate for defibrillator due to noncompliance and lack of f/up; needs to improve compliance with medications -S/p IV lasix 40mg bid, now decreased to lasix 20mg po bid -Restart patient's meds including lisinopril 5mg daily, coreg 3.125mg bid, aspirin 81mg daily, atorvastatin 20mg hs -Monitor Strict I's and O's, Fluid restrictions -much improved, BNP decreased from 2864 to 631, stable on room air Sepsis: meets sepsis criteria with tachycardia HR 110 and tachypnea RR 24, Leukocytosis WBC 11.8K, suspected infection in left heel ulcer vs early pneumonia -Continue Levaquin 750mg po qd -CBC improved, leukocytosis/sepsis resolved. COPD exacerbation: mild, suspect worsened by fluid overload. CXR images reviewed , shows no acute findings, chronic right apical scarring and left apical bulla -Continue DuoNeb's scheduled -O2 as needed, wean to keep O2 sat > 92% -monitor for improvement Noncompliance: patient VERY noncompliant, has not taken medications in months, does not follow up, has had 17 hospital visits in the past 2.5 weeks since . 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 Failed outpatient, multiple attempts, has visited ER almost every day since 09/01. -PT/OT recommending rehab -difficult placement due to no insurance and no home to arrange [facility] -continue daily PT DVT prophylaxis: SCDs Discharge Planning Discharge pending further clinical improvement. He is homeless and is unsafe discharge to the streets. He returned to the ED everyday for the past 17days. PT /OT recommending rehab. He has hx of stroke with residual left sided weakness. Ideally patient would benefit from placement however difficult with no insurance. Continue daily PT. Rosemary Garcia PA-C Sep 23, 2016 12:10 pm
[2016-09-23] MEDS: FERROUS SULFATE 325 MG (65 MG ELEMENTAL IRON) TAB PO SCH ×2 (12:50→17:31)
[2016-09-23] MEDS ORDERED: ACETAMINOPHEN 325 MG TAB PO PRN (16:45)
[2016-09-23] MEDS: ACETAMINOPHEN/HYDROcodone 325 MG/5 MG TAB PO PRN (16:57)
[2016-09-23] MEDS: ATORVASTATIN 20 MG TAB PO SCH (20:29)
[2016-09-24] VITALS (11 sets, daily range): BP systolic 109–161; BP diastolic 54–77; PULSE 58–74; RESP 17–18; TEMP 97.8–98.6; O2SAT 96–100
[2016-09-24] MEDS: SODIUM CHLORIDE 0.9% FLUSH 10 ML FLUSH IV FLUSH SCH ×2 (08:45→20:32)
[2016-09-24] MEDS: LISINOPRIL 10 MG TAB PO SCH (08:45)
[2016-09-24] MEDS: LEVOFLOXACIN 750 MG TAB PO SCH (08:45)
[2016-09-24] MEDS: CARVEDILOL 3.125 MG TAB PO SCH ×2 (08:45→20:32)
[2016-09-24] MEDS: FUROSEMIDE 20 MG TAB PO SCH ×2 (08:45→17:32)
[2016-09-24] MEDS: ASPIRIN EC 81 MG TABEC PO SCH (08:45)
[2016-09-24] MEDS: FERROUS SULFATE 325 MG (65 MG ELEMENTAL IRON) TAB PO SCH ×2 (12:00→17:33)
--- NOTE | 2016-09-24 13:47 | HHI.PR ---
Subjective Remarks Follow up for inability to ambulate, unsafe discharge. The patient is awake, alert, oriented. He is ordering his breakfast. He denies any chest pain, cough, shortness of breath, fevers/chills. He says once he gets his SSI then he plans to go live with his daughter in [place]. Objective Vitals Vital Signs Date Time Temp Pulse Resp B/P (MAP) Pulse Ox O2 Delivery O2 Flow Rate FiO2 09/24/16 07:58 97.8 58 18 148/62 (90) 96 09/24/16 07:53 98 21 09/24/16 03:59 60 09/24/16 03:42 98.1 61 18 160/72 (101) 99 09/24/16 02:34 21 09/24/16 01:07 66 09/23/16 23:31 98.9 65 18 126/60 (82) 98 09/23/16 21:30 72 09/23/16 20:25 98.0 82 18 153/75 (101) 96 09/23/16 17:57 18 09/23/16 17:32 63 146/68 (94) 09/23/16 16:27 98.7 71 16 181/81 (114) 96 09/23/16 15:00 70 I/O 09/23/16 09/23/16 09/23/16 09/24/16 09/24/16 09/24/16 07:00 15:00 23:00 07:00 15:00 23:00 Output Total 600 ml Balance -600 ml Output Urine Total 600 ml # Bowel Movements 0 Result Diagram: 09/23/16 0710 09/23/16 0710 Imaging Last Impressions Chest X-Ray 09/18/16 2311 Signed Impressions: Service Date/Time: Sunday, September 18, 2016 23:07 - CONCLUSION: No acute findings. 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 Rg Montenegro MD Objective Remarks GENERAL: Thin cachectic appearing middle aged male patient in [facility]. SKIN: Warm and dry. Left heel with dry ulcer, no drainage/erythema. HEENT: Normocephalic. Atraumatic.Pupils equal and round. Mucous membranes pink and moist. CARDIOVASCULAR: Regular rate and rhythm. S1, S2 noted. No murmur appreciated. RESPIRATORY: No accessory muscle use. Clear to auscultation. No wheezing/ crackles. Breath sounds equal bilaterally. GASTROINTESTINAL: Abdomen soft, non-tender, nondistended. Normoactive bowel sounds x4. MUSCULOSKELETAL: No obvious deformities. Extremities without clubbing, cyanosis , or edema. NEUROLOGICAL: Awake and alert. 2/5strength LUE/LLE. 4/5 strength RUE/RLE. Normal speech. PSYCHIATRIC: Appropriate mood and affect; insight and judgment normal. Medications and IVs Current Medications Medications (Trade) Dose Ordered Sig/Mohit Route Start Time Stop Time Status Last Admin (NS Flush) 2 ml UNSCH PRN IV FLUSH 09/19/16 02:30 09/20/16 07:57 (NS Flush) 2 ml BID IV FLUSH 09/19/16 09:00 09/24/16 08:45 (Narcan Inj) 0.4 mg UNSCH PRN IV 09/19/16 02:30 (Duoneb Neb) 1 ampule Q4HR NEB PRN NEB 09/19/16 02:30 (Levaquin) 750 mg DAILY PO 09/19/16 09:00 09/24/16 08:45 (Coreg) 3.125 mg Q12HR PO 09/19/16 21:00 09/24/16 08:45 (Ecotrin Ec) 81 mg DAILY PO 09/20/16 09:00 09/24/16 08:45 (Lipitor) 20 mg HS PO 09/19/16 21:00 09/23/16 20:29 (Lasix) 20 mg BID@,18 PO 09/20/16 09:00 09/24/16 08:45 (Vasotec Inj) 1.25 mg Q6H PRN IV PUSH 09/19/16 16:15 09/20/16 07:57 (Prinivil) 10 mg DAILY PO 09/21/16 09:00 09/24/16 08:45 (Ferrous Sulfate) 325 mg BID@,17 PO 09/20/16 17:00 09/24/16 12:00 (Tylenol) 650 mg Q4H PRN PO 09/23/16 16:45 (May 5-325 Mg) 1 tab Q8HR PRN PO 09/23/16 16:45 09/23/16 16:57 A/P Problem List: (1) CHF exacerbation ICD Code: I50.9 - Heart failure, unspecified Status: Acute (2) Cellulitis of left foot ICD Code: L03.116 - Cellulitis of left lower limb Status: Acute (3) Leukocytosis ICD Code: D72.829 - Elevated white blood cell count, unspecified Status: Acute Assessment and Plan 56-year-old male with a history of HTN, COPD, arthritis, and pneumothorax came to hospital cause he states he cant live in the streets anymore. He complains of dizziness, nausea, and vomiting 1-2 times last night. Acute Exacerbation of Chronic Systolic CHF, Failed Outpatient: BNP elevated at 2864. Echocardiogram July 2016 shows an EF of 35-40% and Grade 2 Diastolic Dysfunction. -Recently evaluated by cardiology 09/10/16, recommended medical management; not a candidate for defibrillator due to noncompliance and lack of f/up; needs to improve compliance with medications -S/p IV lasix 40mg bid, now decreased to lasix 20mg po bid -Restart patient's meds including lisinopril 5mg daily, coreg 3.125mg bid, aspirin 81mg daily, atorvastatin 20mg hs -Monitor Strict I's and O's, Fluid restrictions -much improved, BNP decreased from 2864 to 631, stable on room air Sepsis: meets sepsis criteria with tachycardia HR 110 and tachypnea RR 24, Leukocytosis WBC 11.8K, suspected infection in left heel ulcer vs early pneumonia -Continue Levaquin 750mg po qd -CBC improved, leukocytosis/sepsis resolved. COPD exacerbation: mild, suspect worsened by fluid overload. CXR images reviewed , shows no acute findings, chronic right apical scarring and left apical bulla -Continue DuoNeb's scheduled -O2 as needed, wean to keep O2 sat > 92% -much improved, symptoms resolved Noncompliance: patient VERY noncompliant, has not taken medications in months, does not follow up, has had 17 hospital visits in the past 2.5 weeks since . 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 Failed outpatient, multiple attempts, has visited ER almost every day since 09/01. -PT/OT recommending rehab -difficult placement due to no insurance and no home to arrange [facility] -continue daily PT DVT prophylaxis: SCDs Discharge Planning Discharge pending further clinical improvement. He is homeless and is unsafe discharge to the streets. He returned to the ED everyday for the past 17days. PT /OT recommending rehab. He has hx of stroke with residual left sided weakness. Ideally patient would benefit from placement however difficult with no insurance. Continue daily PT. Rosemary Garcia PA-C Sep 24, 2016 1:47 pm
[2016-09-24] MEDS: ATORVASTATIN 20 MG TAB PO SCH (20:32)
[2016-09-25] VITALS (9 sets, daily range): BP systolic 128–149; BP diastolic 61–80; PULSE 65–78; RESP 17–18; TEMP 97.3–98.1; O2SAT 95–100
--- NOTE | 2016-09-25 08:15 | HHI.PR ---
Subjective Remarks Follow up for inability to ambulate, unsafe discharge. The patient is sleeping upon my arrival, easily awakens. States he is hungry, going to order breakfast. Denies any chest pain, shortness of breath, abdominal pains, or any other medical complaints at this time. Vital signs reviewed and stable. O2 sat 100% on room air. Objective Vitals Vital Signs Date Time Temp Pulse Resp B/P (MAP) Pulse Ox O2 Delivery O2 Flow Rate FiO2 09/25/16 07:43 97.6 75 17 138/69 (92) 100 09/25/16 05:11 98.1 78 18 138/77 (97) 100 09/25/16 04:00 72 09/25/16 00:00 72 09/24/16 23:43 98.3 74 18 158/77 (104) 98 09/24/16 20:16 98 09/24/16 20:00 72 09/24/16 19:35 97.8 63 18 125/62 (83) 97 09/24/16 17:09 98.6 60 17 161/72 (101) 100 09/24/16 11:00 98.3 60 17 109/54 (72) 97 Result Diagram: 09/23/16 0710 09/23/16 0710 Imaging Last Impressions Chest X-Ray 09/18/16 2311 Signed Impressions: Service Date/Time: Sunday, September 18, 2016 23:07 - CONCLUSION: No acute findings. 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 Rg Montenegro MD Objective Remarks GENERAL: Thin cachectic appearing middle aged male patient in [facility]. SKIN: Warm and dry. Left heel with dry ulcer, no drainage/erythema. HEENT: Normocephalic. Atraumatic. Bitemporal wasting noted. Pupils equal and round. Mucous membranes pink and moist. CARDIOVASCULAR: Regular rate and rhythm. S1, S2 noted. No murmur appreciated. RESPIRATORY: No accessory muscle use. Clear to auscultation. No wheezing/ crackles. Breath sounds equal bilaterally. GASTROINTESTINAL: Abdomen soft, non-tender, nondistended. Normoactive bowel sounds x4. MUSCULOSKELETAL: No obvious deformities. Extremities without clubbing, cyanosis , or edema. NEUROLOGICAL: Awake and alert. Residual left-sided weakness, 2/5strength LUE/ LLE. 4/5 strength RUE/RLE. Normal speech. PSYCHIATRIC: Appropriate mood and affect; insight and judgment normal. Medications and IVs Current Medications Medications (Trade) Dose Ordered Sig/Mohit Route Start Time Stop Time Status Last Admin (NS Flush) 2 ml UNSCH PRN IV FLUSH 09/19/16 02:30 09/20/16 07:57 (NS Flush) 2 ml BID IV FLUSH 09/19/16 09:00 09/25/16 08:50 (Narcan Inj) 0.4 mg UNSCH PRN IV 09/19/16 02:30 (Duoneb Neb) 1 ampule Q4HR NEB PRN NEB 09/19/16 02:30 (Levaquin) 750 mg DAILY PO 09/19/16 09:00 09/25/16 08:49 (Coreg) 3.125 mg Q12HR PO 09/19/16 21:00 09/25/16 08:50 (Ecotrin Ec) 81 mg DAILY PO 09/20/16 09:00 09/25/16 08:50 (Lipitor) 20 mg HS PO 09/19/16 21:00 09/24/16 20:32 (Lasix) 20 mg BID@,18 PO 09/20/16 09:00 09/25/16 08:49 (Vasotec Inj) 1.25 mg Q6H PRN IV PUSH 09/19/16 16:15 09/20/16 07:57 (Prinivil) 10 mg DAILY PO 09/21/16 09:00 09/25/16 08:49 (Ferrous Sulfate) 325 mg BID@12,17 PO 09/20/16 17:00 09/24/16 17:33 (Tylenol) 650 mg Q4H PRN PO 09/23/16 16:45 (Inglis 5-325 Mg) 1 tab Q8HR PRN PO 09/23/16 16:45 09/23/16 16:57 A/P Problem List: (1) CHF exacerbation ICD Code: I50.9 - Heart failure, unspecified Status: Acute (2) Cellulitis of left foot ICD Code: L03.116 - Cellulitis of left lower limb Status: Acute (3) Leukocytosis ICD Code: D72.829 - Elevated white blood cell count, unspecified Status: Acute Assessment and Plan 56-year-old male with a history of HTN, COPD, arthritis, and pneumothorax came to hospital cause he states he cant live in the streets anymore. He complains of dizziness, nausea, and vomiting 1-2 times last night. Acute Exacerbation of Chronic Systolic CHF, Failed Outpatient: BNP elevated at 2864. Echocardiogram July 2016 shows an EF of 35-40% and Grade 2 Diastolic Dysfunction. -Recently evaluated by cardiology 09/10/16, recommended medical management; not a candidate for defibrillator due to noncompliance and lack of f/up; needs to improve compliance with medications -S/p IV lasix 40mg bid, now decreased to lasix 20mg po bid -Restart patient's meds including lisinopril 5mg daily, coreg 3.125mg bid, aspirin 81mg daily, atorvastatin 20mg hs -Monitor I's and O's, Fluid restrictions -much improved, BNP decreased from 2864 to 631, stable on room air Sepsis: meets sepsis criteria with tachycardia HR 110 and tachypnea RR 24, Leukocytosis WBC 11.8K, suspected infection in left heel ulcer vs early pneumonia -completed treatment with Levaquin 750mg po qd x7days, discontinued -CBC improved, leukocytosis/sepsis resolved. COPD exacerbation: mild, suspect worsened by fluid overload. CXR images reviewed , shows no acute findings, chronic right apical scarring and left apical bulla -Continue DuoNeb's scheduled -O2 as needed, wean to keep O2 sat > 92% -much improved, symptoms resolved Noncompliance: patient very noncompliant, has not taken medications in months, does not follow up, has had 17 hospital visits in the past 2.5 weeks since . 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 Failed outpatient, multiple attempts, has visited ER almost every day since 09/01. -PT/OT recommending rehab -difficult placement due to no insurance and no home to arrange [facility] -continue daily PT Severe Protein Calorie Malnutrition: BMI 14.7, Albumin 3, +cachexia with bitemporal wasting. Suspect secondary to poor oral intake while homeless. -start on Ensure shakes -consult dietitian DVT prophylaxis: SCDs Discharge Planning Discharge pending further clinical improvement. He is homeless and is unsafe discharge to the streets. He returned to the ED everyday for the past 17days. PT /OT recommending rehab. He has hx of stroke with residual left sided weakness. Ideally patient would benefit from placement however difficult with no insurance. Continue daily PT. Rosemary Garcia PA-C Sep 25, 2016 08:15
[2016-09-25] MEDS: LEVOFLOXACIN 750 MG TAB PO SCH (08:49)
[2016-09-25] MEDS: FUROSEMIDE 20 MG TAB PO SCH ×2 (08:49→17:03)
[2016-09-25] MEDS: LISINOPRIL 10 MG TAB PO SCH (08:49)
[2016-09-25] MEDS: CARVEDILOL 3.125 MG TAB PO SCH ×2 (08:50→20:45)
[2016-09-25] MEDS: ASPIRIN EC 81 MG TABEC PO SCH (08:50)
[2016-09-25] MEDS: SODIUM CHLORIDE 0.9% FLUSH 10 ML FLUSH IV FLUSH SCH ×2 (08:50→20:44)
[2016-09-25] MEDS: FERROUS SULFATE 325 MG (65 MG ELEMENTAL IRON) TAB PO SCH ×2 (12:15→17:03)
[2016-09-25] MEDS: ATORVASTATIN 20 MG TAB PO SCH (20:45)
[2016-09-26] VITALS: BP 148/83; PULSE 68; RESP 18; TEMP 98; O2SAT 98
[2016-09-26 04:00] VITALS: BP 142/75; PULSE 75; RESP 18; TEMP 98.6; O2SAT 96
[2016-09-26 08:00] VITALS: BP 160/83; PULSE 72; RESP 16; TEMP 97.9; O2SAT 99
[2016-09-26] MEDS: LISINOPRIL 10 MG TAB PO SCH (08:28)
[2016-09-26] MEDS: SODIUM CHLORIDE 0.9% FLUSH 10 ML FLUSH IV FLUSH SCH ×2 (08:29→20:11)
[2016-09-26] MEDS: ASPIRIN EC 81 MG TABEC PO SCH (08:29)
[2016-09-26] MEDS: CARVEDILOL 3.125 MG TAB PO SCH ×2 (08:29→20:12)
[2016-09-26] MEDS: FUROSEMIDE 20 MG TAB PO SCH ×2 (08:29→17:09)
--- NOTE | 2016-09-26 10:54 | HHI.PR ---
Subjective Remarks Follow up for inability to ambulate, unsafe discharge. Patient is in bed in left lateral decub position. Part of the bedsheet is soiled with stool. Patient denies any chest pain, SOB, fever, chills. He says he has been constipated. Objective Vitals Vital Signs Date Time Temp Pulse Resp B/P (MAP) Pulse Ox O2 Delivery O2 Flow Rate FiO2 09/26/16 08:00 97.9 72 16 160/83 (108) 99 09/26/16 04:00 98.6 75 18 142/75 (97) 96 09/26/16 00:00 98.0 68 18 148/83 (104) 98 09/25/16 22:08 98.0 75 18 149/80 (103) 98 09/25/16 20:00 78 09/25/16 15:27 97.3 78 17 135/75 (95) 100 09/25/16 12:03 98.1 65 17 128/61 (83) 95 Result Diagram: 09/23/16 0710 09/23/16 0710 Imaging Last Impressions Chest X-Ray 09/18/16 2311 Signed Impressions: Service Date/Time: Sunday, September 18, 2016 23:07 - CONCLUSION: No acute findings. 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 Rg Montenegro MD Objective Remarks GENERAL: Alert, NAD. Soiled bedsheet. SKIN: Warm and dry. HEAD: Normocephalic. EYES: No scleral icterus. No injection or drainage. NECK: Supple, trachea midline. No JVD or lymphadenopathy. CARDIOVASCULAR: Regular rate and rhythm without murmurs, gallops, or rubs. RESPIRATORY: Breath sounds equal bilaterally. No accessory muscle use. GASTROINTESTINAL: Abdomen soft, non-tender, nondistended. MUSCULOSKELETAL: No cyanosis, or edema. BACK: Nontender without obvious deformity. No CVA tenderness. Procedures None. A/P Problem List: (1) CHF exacerbation ICD Code: I50.9 - Heart failure, unspecified Status: Acute (2) Cellulitis of left foot ICD Code: L03.116 - Cellulitis of left lower limb Status: Acute (3) Leukocytosis ICD Code: D72.829 - Elevated white blood cell count, unspecified Status: Acute Assessment and Plan 56-year-old male with a history of HTN, COPD, arthritis, and pneumothorax came to hospital cause he states he cant live in the streets anymore. He complains of dizziness, nausea, and vomiting 1-2 times last night. Acute Exacerbation of Chronic Systolic CHF, Failed Outpatient: BNP elevated at 2864. Echocardiogram July 2016 shows an EF of 35-40% and Grade 2 Diastolic Dysfunction. -Recently evaluated by cardiology 09/10/16, recommended medical management; not a candidate for defibrillator due to noncompliance and lack of f/up; needs to improve compliance with medications -S/p IV lasix 40mg bid, now decreased to lasix 20mg po bid -Restarted patient's meds including lisinopril 5mg daily, coreg 3.125mg bid, aspirin 81mg daily, atorvastatin 20mg hs -Monitor I's and O's, Fluid restrictions -much improved, BNP decreased from 2864 to 631, stable on room air Sepsis: met sepsis criteria with tachycardia HR 110 and tachypnea RR 24, Leukocytosis WBC 11.8K, suspected infection in left heel ulcer vs early pneumonia -completed treatment with Levaquin 750mg po qd x7days, discontinued -CBC improved, leukocytosis/sepsis resolved. COPD exacerbation: mild, suspect worsened by fluid overload. CXR images reviewed , shows no acute findings, chronic right apical scarring and left apical bulla -Continue DuoNeb's scheduled -O2 as needed, wean to keep O2 sat > 92% -much improved, symptoms resolved Noncompliance: patient very noncompliant, has not taken medications in months, does not follow up, has had 17 hospital visits in the past 2.5 weeks since . 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 Failed outpatient, multiple attempts, has visited ER almost every day since 09/01. -PT/OT recommending rehab -difficult placement due to no insurance and no home to arrange [facility] -continue daily PT Severe Protein Calorie Malnutrition: BMI 14.7, Albumin 3, +cachexia with bitemporal wasting. Suspect secondary to poor oral intake while homeless. -start on Ensure shakes -consult dietitian - Constipation - will start PRN laxatives. DVT prophylaxis: SCDs Discussed with RN. Sonja Marley DO Sep 26, 2016 10:53
[2016-09-26] MEDS ORDERED: LACTULOSE SYRUP 20 GM/30 ML CUP PO PRN (11:00)
[2016-09-26] MEDS ORDERED: NALOXONE HCL 0.4 MG/ML AMP IV PRN (11:00)
[2016-09-26] MEDS ORDERED: SENNOSIDES 8.6 MG TAB PO PRN (11:00)
[2016-09-26] MEDS ORDERED: BISACODYL 10 MG SUPP RECTAL PRN (11:00)
[2016-09-26] MEDS ORDERED: MAGNESIUM HYDROXIDE SUSP 30 ML CUP PO PRN (11:00)
[2016-09-26 12:00] VITALS: BP 144/69; PULSE 70; RESP 16; TEMP 98.6; O2SAT 98
[2016-09-26] MEDS: FERROUS SULFATE 325 MG (65 MG ELEMENTAL IRON) TAB PO SCH ×2 (12:32→17:09)
[2016-09-26 16:00] VITALS: BP 117/65; PULSE 81; RESP 16; TEMP 98; O2SAT 100
[2016-09-26] MEDS: DOCUSATE SODIUM 50 MG/SENNA 8.6 MG TAB PO SCH (20:11)
[2016-09-26] MEDS: ATORVASTATIN 20 MG TAB PO SCH (20:12)
[2016-09-26 21:30] VITALS: BP 122/71; PULSE 66; RESP 16; TEMP 96.8; O2SAT 100
[2016-09-27 04:00] VITALS: BP 110/67; PULSE 84; RESP 16; TEMP 97.3; O2SAT 99
[2016-09-27] MEDS: FUROSEMIDE 20 MG TAB PO SCH (09:00)
[2016-09-27] MEDS: LISINOPRIL 10 MG TAB PO SCH (09:00)
[2016-09-27] MEDS: CARVEDILOL 3.125 MG TAB PO SCH ×2 (09:00→19:57)
[2016-09-27 09:49] VITALS: BP 100/52; PULSE 58
[2016-09-27] MEDS: DOCUSATE SODIUM 50 MG/SENNA 8.6 MG TAB PO SCH ×2 (09:57→19:57)
[2016-09-27] MEDS: SODIUM CHLORIDE 0.9% FLUSH 10 ML FLUSH IV FLUSH SCH ×2 (09:57→19:58)
[2016-09-27] MEDS: ASPIRIN EC 81 MG TABEC PO SCH (09:58)
[2016-09-27 11:18] LABS: HEMATOCRIT 33.4 % (39.0-51.0); MEAN CELL VOLUME 85.2 FL (80.0-100.0); MEAN CORPUSCULAR HEMOGLOBIN 27.1 PG (27.0-34.0); MEAN CORPUSCULAR HGB CONC 31.8 % (32.0-36.0); PLATELET COUNT 424 TH/MM3 (150-450); RED BLOOD COUNT 3.92 MIL/MM3 (4.50-5.90); RED CELL DISTRIBUTION WIDTH 18.6 % (11.6-17.2); REVIEW FLAG FINAL; WHITE BLOOD COUNT 9.4 TH/MM3 (4.0-11.0)
[2016-09-27 11:29] LABS: BICARBONATE 29.9 MEQ/L (21.0-32.0)
--- NOTE | 2016-09-27 12:19 | HHI.PR ---
Subjective Remarks Follow-up for unsafe discharge. Patient had presented to the ED approximately 17 times over a 2.5 week in August/September of this year. He was admitted on and treated for CHF exacerbation and mild COPD exacerbation which are now resolved. The patient is familiar to me from admission on 07/29/16 for dehydration with renal failure, suffering from a CVA while hospitalized on that admission. He has left-sided deficits from CVA. Patient had a GI bleed and required blood transfusion on that admission. He had an endoscopy performed but refused colonoscopy, and he ended up signing out against medical advice. He was again admitted on 09/09/16 for elevated troponin attributed to CHF. On this admission, patient's ambulation distance has decreased while here. Patient was transferred from [facility] to [facility] last night to work on placement as patient is currently homeless. Nurse tells me that the patient has dark stools this morning. The patient is primarily concerned about his SSI and about getting a motorized wheelchair in a certain color. He admits to lightheadedness and dizziness when he stands and walks around. Admits to hot flashes. He denies any chest pain, shortness breath, or abdominal pain. Objective Vitals Vital Signs Date Time Temp Pulse Resp B/P (MAP) Pulse Ox O2 Delivery O2 Flow Rate FiO2 09/27/16 09:49 58 100/52 (68) 09/27/16 04:00 97.3 84 16 110/67 (81) 99 09/26/16 21:30 96.8 66 16 122/71 (88) 100 09/26/16 16:00 98.0 81 16 117/65 (82) 100 I/O 09/26/16 09/26/16 09/26/16 09/27/16 09/27/16 09/27/16 07:00 15:00 23:00 07:00 15:00 23:00 Intake Total 480 ml 480 ml Output Total 100 ml 2 ml Balance 380 ml 478 ml Intake Oral 480 ml 480 ml Output Urine Total 100 ml 2 ml # Voids 1 # Bowel Movements 1 1 1 Result Diagram: 09/27/16 1110 09/27/16 1110 Objective Remarks GENERAL: Cachectic appearing male sitting in recliner. CARDIOVASCULAR: Regular rate and rhythm. RESPIRATORY: No accessory muscle use. Clear to auscultation. Breath sounds equal bilaterally. GASTROINTESTINAL: Abdomen soft, non-tender, nondistended. NEUROLOGICAL: Awake and alert. Normal speech. PSYCHIATRIC: Appropriate mood and affect. Procedures None. Urinary Catheter: No Vascular Central Line Catheter: No A/P Assessment and Plan 56-year-old male with: Acute on chronic renal failure: BUN/creatinine significantly increased at 57/ 2.60 today from prior of 25/1.46 on 09/23. Discussed with Dr. Thrasher, attending. -250 mL IV bolus of normal saline ordered. Avoid po fluid restriction for now. Has low EF so caution with IV fluid resuscitation. -Renal ultrasound ordered. -Repeat am BMP. -Consider nephrology consult if fails to improve. Acute Exacerbation of Chronic Systolic CHF, Failed Outpatient: Improved. BNP elevated at 2864. Echocardiogram July 2016 shows an EF of 35-40% and Grade 2 Diastolic Dysfunction. -Recently evaluated by cardiology 09/10/16, recommended medical management; not a candidate for defibrillator due to noncompliance and lack of f/up; needs to improve compliance with medications -S/p IV lasix. Currently on lasix 20mg po bid. Hold Lasix due to SHANTELLE. -Continue Coreg 3.125mg bid, aspirin 81mg daily, atorvastatin 20mg hs. Hold Lisinopril for now due to SHANTELLE. -Monitor I's and O's. Currently not on fluid restrictions. -BNP today further improved at 196. HTN: Patient's Lasix, Lisinopril, and Coreg were held this morning due to bradycardia and hypotension. Monitor. Sepsis: met sepsis criteria with tachycardia HR 110 and tachypnea RR 24, Leukocytosis WBC 11.8K, suspected infection in left heel ulcer vs early pneumonia -Completed treatment with Levaquin 750mg po qd x7days, discontinued -CBC improved, leukocytosis/sepsis resolved. COPD exacerbation: mild, suspect worsened by fluid overload. CXR images showed no acute findings, chronic right apical scarring and left apical bulla -Duonebs as needed -On room air -much improved, symptoms resolved Noncompliance: patient very noncompliant, has not taken medications in months, does not follow up, has had 17 hospital visits in the past 2.5 weeks since . -counseled by colleague on importance of compliance to medical regimen -case management to assist with discharge planning, has filled all prescriptions Normocytic Anemia: Hgb 8.2 on admission, chronic, consistent with baseline -Continue ferrous sulfate bid -DIRECTOR INDUSTRI[employer] NURSING reported that patient had dark stools this morning. Hemoglobin stable at 10.6 today. Hemoccult was sent, pending, as patient does have history of GI bleed but stools are likely dark due to iron. 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 Failed outpatient, multiple attempts, has visited ER almost every day since 09/01. -Aspirin. Patient received this morning but will hold further aspirin until Hemoccult results. -PT/OT recommending rehab -Difficult placement due to no insurance and no home to arrange [facility] Severe Protein Calorie Malnutrition: BMI 14.7, Albumin 3, +cachexia with bitemporal wasting. Suspect secondary to poor oral intake while homeless. -Plaster Mixer has evaluated the patient and recommends replacing Ensure w/ Ensure Enlive tid and send milk and yogurt with meals. Monitor po intake and weight. Diet order changed. Constipation: PRN laxatives. DVT prophylaxis: SCDs Discharge Planning CM following. Cayla Maya Sep 27, 2016 12:19
[2016-09-27 12:36] VITALS: BP 113/57; PULSE 66; RESP 20; TEMP 97.7; O2SAT 100
[2016-09-27] MEDS: FERROUS SULFATE 325 MG (65 MG ELEMENTAL IRON) TAB PO SCH ×2 (12:42→17:09)
[2016-09-27] MEDS ORDERED: SODIUM CHLOR 0.9% 250 ML INJ 250 ML IV ONE (13:30)
[2016-09-27 16:00] VITALS: BP 113/57; PULSE 66; RESP 20; TEMP 97.7; O2SAT 100
--- NOTE | 2016-09-27 17:10 | RADRPT ---
EXAM DATE/TIME: 09/27/2016 14:25 [facility] COMPARISON: No previous studies available for comparison. INDICATIONS : Increased BUN and creatinine. MEDICAL HISTORY : Congestive heart failure. Hypercholesterolemia. Hypertension. Osteoarthritis. Arthritis. Cerebrov ascular accident. COPD. SURGICAL HISTORY : Right ankle surgery. ENCOUNTER: Initial ACUITY: 1 day PAIN SCORE: 2/10 LOCATION: Bilateral flank MEASUREMENTS: RIGHT KIDNEY: 6.5 x 2.7 x 2.2 cm LEFT KIDNEY: 9.9 x 4.6 x 4.6 cm FINDINGS: The kidneys are small in size and echogenic, right more so than left. There is no hydronephrosis or m ass. The bladder is normal. CONCLUSION: Small echogenic kidneys right greater than left. Rajinder Martines MD on September 27, 2016 at 17:08 Board Certified Radiologist. This report was verified electronically.
[2016-09-27 17:41] VITALS: PULSE 62; RESP 18; O2SAT 99
[2016-09-27] MEDS: ATORVASTATIN 20 MG TAB PO SCH (19:57)
[2016-09-27 20:00] VITALS: BP 139/84; PULSE 74; RESP 20; TEMP 96.2; O2SAT 100
[2016-09-28 04:00] VITALS: BP 134/80; PULSE 72; RESP 18; TEMP 97.1; O2SAT 100
[2016-09-28 06:48] LABS: POTASSIUM 4.1 MEQ/L (3.5-5.1)
[2016-09-28 06:51] LABS: BICARBONATE 29.1 MEQ/L (21.0-32.0)
[2016-09-28 08:10] VITALS: BP 167/88; PULSE 65; RESP 19; TEMP 97.6; O2SAT 99
[2016-09-28] MEDS: DOCUSATE SODIUM 50 MG/SENNA 8.6 MG TAB PO SCH ×2 (09:00→20:43)
[2016-09-28] MEDS: ASPIRIN EC 81 MG TABEC PO SCH (09:00)
[2016-09-28] MEDS: CARVEDILOL 3.125 MG TAB PO SCH ×2 (09:28→20:43)
[2016-09-28] MEDS: SODIUM CHLORIDE 0.9% FLUSH 10 ML FLUSH IV FLUSH SCH ×2 (09:29→20:44)
[2016-09-28] MEDS: FERROUS SULFATE 325 MG (65 MG ELEMENTAL IRON) TAB PO SCH ×2 (11:41→17:19)
[2016-09-28 12:00] VITALS: BP 150/75; PULSE 80; RESP 20; TEMP 98.5; O2SAT 100
--- NOTE | 2016-09-28 13:23 | HHI.PR ---
Subjective Remarks Follow-up for SHANTELLE. The nurse informed me this morning that the patient wanted to sign out AMA. When I went to speak with him he did not address this at all. Patient still admits to some lightheadedness and dizziness but states he had just been working with PT. He denies any chest pain, shortness of breath, or abdominal pain. Objective Vitals Vital Signs Date Time Temp Pulse Resp B/P (MAP) Pulse Ox O2 Delivery O2 Flow Rate FiO2 09/28/16 08:10 97.6 65 19 167/88 (114) 99 09/28/16 04:00 97.1 72 18 134/80 (98) 100 09/27/16 20:00 96.2 74 20 139/84 (102) 100 09/27/16 17:41 62 18 99 09/27/16 16:00 97.7 66 20 113/57 (75) 100 I/O 09/27/16 09/27/16 09/27/16 09/28/16 09/28/16 09/28/16 07:00 15:00 23:00 07:00 15:00 23:00 Intake Total 480 ml 890 ml 120 ml Output Total 2 ml 300 ml 200 ml 200 ml Balance 478 ml 590 ml -80 ml -200 ml Intake Oral 480 ml 640 ml 120 ml IV Total 250 ml Output Urine Total 2 ml 300 ml 200 ml 200 ml # Voids 3 2 # Bowel Movements 1 4 0 Result Diagram: 09/27/16 1110 09/28/16 0620 Objective Remarks GENERAL: Cachectic appearing male sitting in bed. CARDIOVASCULAR: Regular rate and rhythm. RESPIRATORY: No accessory muscle use. Clear to auscultation. Breath sounds equal bilaterally. GASTROINTESTINAL: Abdomen soft, non-tender, nondistended. NEUROLOGICAL: Awake and alert. Normal speech. PSYCHIATRIC: Appropriate mood and affect. Procedures None. Urinary Catheter: No Vascular Central Line Catheter: No A/P Problem List: (1) [id number] renal failure ICD Code: N17.9 - Acute kidney failure, unspecified; N18.9 - Chronic kidney disease, unspecified (2) CHF exacerbation ICD Code: I50.9 - Heart failure, unspecified Status: Acute Assessment and Plan 56-year-old male with: Acute on chronic renal failure: Improved. -BUN/creatinine 57/2.60-->51/1/.70 s/p 250 mL IV bolus of NS. -Renal ultrasound shows small echogenic kidneys right greater than left, but no obstruction. -Avoid nephrotoxins. Currently holding Lasix and Lisinopril. -Repeat am BMP. Acute Exacerbation of Chronic Systolic CHF, Failed Outpatient: Improved. BNP elevated at 2864-->196. Echocardiogram July 2016 shows an EF of 35-40% and Grade 2 Diastolic Dysfunction. -Recently evaluated by cardiology 09/10/16, recommended medical management; not a candidate for defibrillator due to noncompliance and lack of f/up; needs to improve compliance with medications -S/p IV Lasix. Currently on Lasix 20mg po bid. Continue to hold Lasix due to SHANTELLE. Can resume in the morning. -Continue Coreg 3.125mg bid, aspirin 81mg daily, atorvastatin 20mg hs. Lisinopril held due to SHANTELLE. Can resume in the morning. -Strict 's and O's. -1800 mL fluid restriction HTN: BP elevated today due to Lasix and Lisinopril being held. Continue Coreg. Will add Clonidine for prn use. Sepsis: met sepsis criteria with tachycardia HR 110 and tachypnea RR 24, Leukocytosis WBC 11.8K, suspected infection in left heel ulcer vs early pneumonia -Completed treatment with Levaquin 750mg po qd x7days, discontinued -CBC improved, leukocytosis/sepsis resolved. COPD exacerbation: mild, suspect worsened by fluid overload. CXR images showed no acute findings, chronic right apical scarring and left apical bulla -Duonebs as needed -On room air -much improved, symptoms resolved Noncompliance: patient very noncompliant, has not taken medications in months, does not follow up, has had 17 hospital visits in the past 2.5 weeks since . -counseled by colleague on importance of compliance to medical regimen -case management to assist with discharge planning, has filled all prescriptions Normocytic Anemia: Hgb 8.2 on admission, chronic, consistent with baseline. H/o upper GI bleed during hospitalization in August of this year requiring blood transfusion. Endoscopy at that revealed esophagitis with Medina's on pathology. -Continue ferrous sulfate bid -09/27: Dark stools reported. Hemoglobin stable at 10.6 today. Hemoccult negative. Likely dark due to iron. -09/28: Patient not currently on PPI. Will start Protonix 40 mg po qhs so as not to interfere with iron supplementation. 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 Failed outpatient, multiple attempts, has visited ER almost every day since 09/01. -Aspirin. Patient refused aspirin this morning. -PT/OT recommending rehab -Difficult placement due to no insurance and no home to arrange [facility] Severe Protein Calorie Malnutrition: BMI 14.7, Albumin 3, +cachexia with bitemporal wasting. Suspect secondary to poor oral intake while homeless. -Estimate Clerk has evaluated the patient and recommends Ensure Enlive tid and send milk and yogurt with meals. Monitor po intake and weight. Constipation: PRN laxatives. DVT prophylaxis: SCDs Patient management discussed with Dr. Thrasher, attending. Discharge Planning Requires placement Cayla Maya Sep 28, 2016 13:23
[2016-09-28 17:57] VITALS: BP 146/68; PULSE 57; RESP 19; TEMP 98; O2SAT 100
[2016-09-28 20:00] VITALS: BP 199/96; PULSE 73; RESP 16; TEMP 97.8; O2SAT 100
[2016-09-28] MEDS: PANTOPRAZOLE SOD 40 MG DELAYED RELEASE TAB PO SCH (20:43)
[2016-09-28] MEDS: ATORVASTATIN 20 MG TAB PO SCH (20:43)
[2016-09-28] MEDS: cloNIDine HCL 0.1 MG TAB PO PRN (20:43)
[2016-09-28] MEDS: ACETAMINOPHEN/HYDROcodone 325 MG/5 MG TAB PO PRN (20:43)
[2016-09-29] VITALS: BP 139/77; PULSE 60
[2016-09-29 04:00] VITALS: BP 134/71; PULSE 53; RESP 16; TEMP 97.6; O2SAT 98
[2016-09-29 08:00] VITALS: BP 151/79; PULSE 88; RESP 16; TEMP 96.5; O2SAT 99
[2016-09-29 08:51] LABS: POTASSIUM 4.4 MEQ/L (3.5-5.1)
[2016-09-29 08:54] LABS: BICARBONATE 31.9 MEQ/L (21.0-32.0)
--- NOTE | 2016-09-29 09:48 | HHI.PR ---
Subjective Remarks Follow up for SHANTELLE. Patient admits to lightheadedness which is not new. Denies any headache, chest pain, shortness of breath, abdominal pain, vomiting, diarrhea, hematochezia, melena. Objective Vitals Vital Signs Date Time Temp Pulse Resp B/P (MAP) Pulse Ox O2 Delivery O2 Flow Rate FiO2 09/29/16 08:00 96.5 88 16 151/79 (103) 99 09/29/16 04:00 97.6 53 16 134/71 (92) 98 09/29/16 00:00 60 139/77 (97) 09/28/16 20:00 97.8 73 16 199/96 (130) 100 09/28/16 17:57 98.0 57 19 146/68 (94) 100 09/28/16 12:00 98.5 80 20 150/75 (100) 100 I/O 09/28/16 09/28/16 09/28/16 09/29/16 09/29/16 09/29/16 06:59 14:59 22:59 06:59 14:59 22:59 Intake Total 120 ml 250 ml 480 ml Output Total 200 ml 200 ml 100 ml 200 ml Balance -80 ml 50 ml 380 ml -200 ml Intake Oral 120 ml 250 ml 480 ml Output Urine Total 200 ml 200 ml 100 ml 200 ml # Voids 2 1 2 # Bowel Movements 0 2 0 Result Diagram: 09/27/16 1110 09/29/16 0830 Objective Remarks GENERAL: Cachectic appearing male sitting in bed eating breakfast. CARDIOVASCULAR: Faint heart sounds. Regular rate and rhythm. RESPIRATORY: No accessory muscle use. Clear to auscultation. Breath sounds equal bilaterally. GASTROINTESTINAL: Abdomen soft, non-tender, nondistended. NEUROLOGICAL: Awake and alert. Weak Left hand. 4/5 left plantar flexion and dorsiflexion. Normal strength in right extremities. Normal speech. PSYCHIATRIC: Appropriate mood and affect. Procedures None. Urinary Catheter: No Vascular Central Line Catheter: No A/P Problem List: (1) [id number] renal failure ICD Code: N17.9 - Acute kidney failure, unspecified; N18.9 - Chronic kidney disease, unspecified (2) CHF exacerbation ICD Code: I50.9 - Heart failure, unspecified Status: Acute Assessment and Plan 56-year-old male with: Acute on chronic renal failure: Improved. -BUN/creatinine 57/2.60-->43/1.60 s/p 250 mL IV bolus of NS. -Renal ultrasound shows small echogenic kidneys right greater than left, but no obstruction. -Avoid nephrotoxins. -Repeat am BMP. Acute Exacerbation of Chronic Systolic CHF, Failed Outpatient: Improved. BNP elevated at 2864-->196. Echocardiogram July 2016 shows an EF of 35-40% and Grade 2 Diastolic Dysfunction. -Recently evaluated by cardiology 09/10/16, recommended medical management; not a candidate for defibrillator due to noncompliance and lack of f/up; needs to improve compliance with medications -S/p IV Lasix. Currently on Lasix 20mg po bid. -Continue Coreg 3.125mg bid, Lisinopril 10 mg daily, aspirin 81mg daily, atorvastatin 20mg hs. -Strict 's and O's. -1800 mL fluid restriction HTN: BP was elevated yesterday due to meds on hold. PRN clonidine dose was given last night with improvement. BP mildly elevated this morning but patient' s Lasix and Lisinopril resumed this morning. Continue Coreg. Monitor. Sepsis: met sepsis criteria with tachycardia HR 110 and tachypnea RR 24, Leukocytosis WBC 11.8K, suspected infection in left heel ulcer vs early pneumonia -Completed treatment with Levaquin 750mg po qd x7days, discontinued -CBC improved, leukocytosis/sepsis resolved. COPD exacerbation: mild, suspect worsened by fluid overload. CXR images showed no acute findings, chronic right apical scarring and left apical bulla -Duonebs as needed -On room air -much improved, symptoms resolved Noncompliance: patient very noncompliant, has not taken medications in months, does not follow up, has had 17 hospital visits in the past 2.5 weeks since . -counseled by colleague on importance of compliance to medical regimen -case management to assist with discharge planning, has filled all prescriptions Normocytic Anemia: Hgb 8.2 on admission, chronic, consistent with baseline. H/o upper GI bleed during hospitalization in August of this year requiring blood transfusion. Endoscopy at that revealed esophagitis with Medina's on pathology. -Continue ferrous sulfate bid -09/27: Dark stools reported. Hemoglobin stable at 10.6 today. Hemoccult negative. Likely dark due to iron. 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 Failed outpatient, multiple attempts, has visited ER almost every day since 09/01. -Aspirin. -PT/OT recommending rehab -Difficult placement due to no insurance and no home to arrange [facility] Severe Protein Calorie Malnutrition: BMI 14.7, Albumin 3, +cachexia with bitemporal wasting. Suspect secondary to poor oral intake while homeless. -Cellar Supervisor has evaluated the patient and recommends Ensure Enlive tid and send milk and yogurt with meals. Monitor po intake and weight. Constipation: PRN laxatives. DVT prophylaxis: SCDs Discharge Planning Requires placement Cayla Maya Sep 29, 2016 09:48
[2016-09-29] MEDS: CARVEDILOL 3.125 MG TAB PO SCH ×2 (10:04→20:43)
[2016-09-29] MEDS: DOCUSATE SODIUM 50 MG/SENNA 8.6 MG TAB PO SCH ×2 (10:04→20:43)
[2016-09-29] MEDS: ASPIRIN EC 81 MG TABEC PO SCH (10:04)
[2016-09-29] MEDS: FERROUS SULFATE 325 MG (65 MG ELEMENTAL IRON) TAB PO SCH ×2 (10:08→17:31)
[2016-09-29] MEDS: FUROSEMIDE 20 MG TAB PO SCH ×2 (10:08→17:31)
[2016-09-29] MEDS: LISINOPRIL 10 MG TAB PO SCH (10:08)
[2016-09-29 20:00] VITALS: BP 194/98; PULSE 63; RESP 16; TEMP 98.2; O2SAT 100
[2016-09-29] MEDS: ATORVASTATIN 20 MG TAB PO SCH (20:43)
[2016-09-29] MEDS: SODIUM CHLORIDE 0.9% FLUSH 10 ML FLUSH IV FLUSH SCH (20:43)
[2016-09-29] MEDS: PANTOPRAZOLE SOD 40 MG DELAYED RELEASE TAB PO SCH (20:43)
[2016-09-30] VITALS: BP 195/96; PULSE 65; RESP 16; TEMP 98.3; O2SAT 100
[2016-09-30] MEDS: cloNIDine HCL 0.1 MG TAB PO PRN (00:04)
[2016-09-30 04:00] VITALS: BP 123/76; PULSE 65; RESP 16; TEMP 95.5; O2SAT 100
[2016-09-30 07:09] LABS: POTASSIUM 3.9 MEQ/L (3.5-5.1)
[2016-09-30 08:00] VITALS: BP 137/78; PULSE 57; RESP 16; TEMP 96.3; O2SAT 97
[2016-09-30] MEDS: LISINOPRIL 10 MG TAB PO SCH (08:58)
[2016-09-30] MEDS: DOCUSATE SODIUM 50 MG/SENNA 8.6 MG TAB PO SCH ×2 (08:58→21:08)
[2016-09-30] MEDS: ASPIRIN EC 81 MG TABEC PO SCH (08:58)
[2016-09-30] MEDS: FUROSEMIDE 20 MG TAB PO SCH ×2 (08:58→17:35)
[2016-09-30] MEDS: CARVEDILOL 3.125 MG TAB PO SCH ×2 (08:58→21:00)
[2016-09-30] MEDS: SODIUM CHLORIDE 0.9% FLUSH 10 ML FLUSH IV FLUSH SCH ×2 (08:58→21:08)
--- NOTE | 2016-09-30 09:54 | HHI.PR ---
Subjective Remarks Follow-up for unsafe discharge, SHANTELLE. Patient has no acute complaints. Objective Vitals Vital Signs Date Time Temp Pulse Resp B/P (MAP) Pulse Ox O2 Delivery O2 Flow Rate FiO2 09/30/16 08:00 96.3 57 16 137/78 (97) 97 09/30/16 04:00 95.5 65 16 123/76 (92) 100 09/30/16 00:00 98.3 65 16 195/96 (129) 100 09/29/16 20:00 98.2 63 16 194/98 (130) 100 I/O 09/29/16 09/29/16 09/29/16 09/30/16 09/30/16 09/30/16 06:59 14:59 22:59 06:59 14:59 22:59 Intake Total 360 ml 220 ml 240 ml Output Total 200 ml 250 ml 300 ml 250 ml Balance -200 ml 110 ml -80 ml -10 ml Intake Oral 360 ml 220 ml 240 ml Output Urine Total 200 ml 250 ml 300 ml 250 ml # Voids 2 2 # Bowel Movements 0 0 0 Result Diagram: 09/27/16 1110 09/30/16 0630 Objective Remarks GENERAL: Cachectic appearing male. CARDIOVASCULAR: Regular rate and rhythm. 2/6 murmur on the left. RESPIRATORY: No accessory muscle use. Clear to auscultation. Breath sounds equal bilaterally. GASTROINTESTINAL: Abdomen soft, non-tender, nondistended. NEUROLOGICAL: Awake and alert. 5/5 surgeon assistant strength R hand. Flaccid Left arm. Normal speech. PSYCHIATRIC: Appropriate mood and affect. Procedures None. Urinary Catheter: No Vascular Central Line Catheter: No A/P Problem List: (1) [id number] renal failure ICD Code: N17.9 - Acute kidney failure, unspecified; N18.9 - Chronic kidney disease, unspecified (2) CHF exacerbation ICD Code: I50.9 - Heart failure, unspecified Status: Acute Assessment and Plan 56-year-old male with: Acute on chronic renal failure: Improved. -BUN/creatinine 57/2.60-->39/1.40 today; Cr is likely around baseline. -S/p 250 mL IV bolus of NS. -Renal ultrasound shows small echogenic kidneys right greater than left, but no obstruction. -Avoid nephrotoxins. Acute Exacerbation of Chronic Systolic CHF, Failed Outpatient: Improved. BNP elevated at 2864-->196. Echocardiogram July 2016 shows an EF of 35-40% and Grade 2 Diastolic Dysfunction. -Recently evaluated by cardiology 09/10/16, recommended medical management; not a candidate for defibrillator due to noncompliance and lack of f/up; needs to improve compliance with medications -S/p IV Lasix. Currently on Lasix 20mg po bid. -Continue Coreg 3.125mg bid, Lisinopril 10 mg daily, aspirin 81mg daily, atorvastatin 20mg hs. -Strict 's and O's. -1800 mL fluid restriction HTN: -Continue Coreg, Lasix, and Lisinopril -09/30: Patient required prn Clonidine dose 0.1 mg at midnight for BP of 195/96, but his BP had been running high yesterday likely because Lasix and Lisinopril were held for 2 days prior. BP improved this morning. Will continue to monitor. Sepsis: met sepsis criteria with tachycardia HR 110 and tachypnea RR 24, Leukocytosis WBC 11.8K, suspected infection in left heel ulcer vs early pneumonia -Completed treatment with Levaquin 750mg po qd x7days, discontinued -CBC improved, leukocytosis/sepsis resolved. COPD exacerbation: mild, suspect worsened by fluid overload. CXR images showed no acute findings, chronic right apical scarring and left apical bulla -Duonebs as needed -On room air -much improved, symptoms resolved Noncompliance: patient very noncompliant, has not taken medications in months, does not follow up, has had 17 hospital visits in the past 2.5 weeks since . -counseled by colleague on importance of compliance to medical regimen -case management to assist with discharge planning, has filled all prescriptions Normocytic Anemia: Hgb 8.2 on admission, chronic, consistent with baseline. H/o upper GI bleed during hospitalization in August of this year requiring blood transfusion. Endoscopy at that revealed esophagitis with Medina's on pathology. -Continue ferrous sulfate bid -09/27: Dark stools reported. Hemoglobin stable at 10.6 today. Hemoccult negative. Likely dark due to iron. 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 Failed outpatient, multiple attempts, has visited ER almost every day since 7/28. -Aspirin. -PT/OT recommending rehab -Difficult placement due to no insurance and no home to arrange [facility] Severe Protein Calorie Malnutrition: BMI 14.7, Albumin 3, +cachexia with bitemporal wasting. Suspect secondary to poor oral intake while homeless. -Group Director has evaluated the patient and recommends Ensure Enlive tid and send milk and yogurt with meals. Monitor po intake and weight. Constipation: PRN laxatives. DVT prophylaxis: SCDs Discharge Planning Requires placement Cayla Maya Sep 30, 2016 09:54
[2016-09-30] MEDS: FERROUS SULFATE 325 MG (65 MG ELEMENTAL IRON) TAB PO SCH ×2 (11:38→17:35)
[2016-09-30 12:00] VITALS: BP 128/80; PULSE 88; RESP 18; TEMP 98; O2SAT 95
[2016-09-30] MEDS: ACETAMINOPHEN/HYDROcodone 325 MG/5 MG TAB PO PRN ×2 (13:05→21:08)
[2016-09-30 16:00] VITALS: BP 123/80; PULSE 80; RESP 18; TEMP 98; O2SAT 97
[2016-09-30 20:00] VITALS: BP 113/61; PULSE 51; RESP 20; TEMP 96.9; O2SAT 100
[2016-09-30] MEDS: ATORVASTATIN 20 MG TAB PO SCH (21:08)
[2016-09-30] MEDS: PANTOPRAZOLE SOD 40 MG DELAYED RELEASE TAB PO SCH (21:08)
[2016-10-01 08:00] VITALS: BP 82/58; PULSE 62; RESP 16; TEMP 97.4; O2SAT 99
[2016-10-01] MEDS: FUROSEMIDE 20 MG TAB PO SCH ×2 (09:00→17:36)
[2016-10-01] MEDS: LISINOPRIL 10 MG TAB PO SCH (09:00)
[2016-10-01] MEDS: CARVEDILOL 3.125 MG TAB PO SCH ×2 (09:00→21:34)
[2016-10-01 09:54] VITALS: BP 98/78; PULSE 66; RESP 16
[2016-10-01] MEDS: ASPIRIN EC 81 MG TABEC PO SCH (09:56)
[2016-10-01] MEDS: SODIUM CHLORIDE 0.9% FLUSH 10 ML FLUSH IV FLUSH SCH ×2 (09:56→21:34)
[2016-10-01] MEDS: DOCUSATE SODIUM 50 MG/SENNA 8.6 MG TAB PO SCH ×2 (09:57→21:33)
--- NOTE | 2016-10-01 11:02 | HHI.PR ---
Subjective Remarks Follow-up for unsafe discharge, SHANTELLE. Patient trying to sleep when I enter the room. He admits to feeling okay. Objective Vitals Vital Signs Date Time Temp Pulse Resp B/P (MAP) Pulse Ox O2 Delivery O2 Flow Rate FiO2 10/01/16 09:54 66 16 98/78 (85) 10/01/16 08:00 97.4 62 16 82/58 (66) 99 09/30/16 20:00 96.9 51 20 113/61 (78) 100 09/30/16 16:00 98.0 80 18 123/80 (94) 97 09/30/16 14:05 18 09/30/16 12:00 98.0 88 18 128/80 (96) 95 I/O 09/30/16 09/30/16 09/30/16 10/01/16 10/01/16 10/01/16 07:00 15:00 23:00 07:00 15:00 23:00 Intake Total 240 ml 540 ml 460 ml 120 ml 360 ml Output Total 250 ml 350 ml 250 ml 650 ml 300 ml Balance -10 ml 190 ml 210 ml -530 ml 60 ml Intake Oral 240 ml 540 ml 460 ml 120 ml 360 ml Output Urine Total 250 ml 350 ml 250 ml 650 ml 300 ml # Voids 2 1 # Bowel Movements 0 1 Result Diagram: 09/27/16 1110 09/30/16 0630 Objective Remarks GENERAL: Cachectic appearing male. CARDIOVASCULAR: Regular rate and rhythm. 1/6 murmur on the left. RESPIRATORY: No accessory muscle use. Clear to auscultation. Breath sounds equal bilaterally. GASTROINTESTINAL: Abdomen soft, non-tender, nondistended. NEUROLOGICAL: Awake and alert. Normal speech. PSYCHIATRIC: Appropriate mood and affect. Procedures None. Urinary Catheter: No Vascular Central Line Catheter: No A/P Problem List: (1) [id number] renal failure ICD Code: N17.9 - Acute kidney failure, unspecified; N18.9 - Chronic kidney disease, unspecified (2) CHF exacerbation ICD Code: I50.9 - Heart failure, unspecified Status: Acute (3) Hypotension ICD Code: I95.9 - Hypotension, unspecified Status: Acute Assessment and Plan 56-year-old male with: Hypotension: Acute. Initial BP 82/58 this morning. I asked the nurse to repeat a manual blood pressure with improvement at 98/78 (MAP 85). But blood pressure remains low this afternoon. No clinical change in patient. Patient is very thin, but has not been previously hypotensive on this admission. -CBC with normal WBC count. Hemoglobin improved at 11.1. -Coreg, Lisinopril, and Lasix were all held this morning. Hold parameters in place. -BP at 1742 82/54 (MAP 63). Discussed with Dr. Thrasher. 250 mL IV NS fluid bolus ordered. -Monitor vitals q4h. Acute on chronic renal failure: -BUN/creatinine 57/2.60 on 09/27 -S/p 250 mL IV bolus of NS. -Renal ultrasound shows small echogenic kidneys right greater than left, but no obstruction. -Avoid nephrotoxins. -10/01: BUN/Cr mildly worse from yesterday, 39/1.40-->43/1.50. Repeat am BMP. Acute Exacerbation of Chronic Systolic CHF, Failed Outpatient: Improved. BNP elevated at 2864-->196. Echocardiogram July 2016 shows an EF of 35-40% and Grade 2 Diastolic Dysfunction. -Recently evaluated by cardiology 09/10/16, recommended medical management; not a candidate for defibrillator due to noncompliance and lack of f/up; needs to improve compliance with medications -S/p IV Lasix. Currently on Lasix 20mg po bid. -Continue Coreg 3.125mg bid, Lisinopril 10 mg daily, aspirin 81mg daily, atorvastatin 20mg hs. -1800 mL fluid restriction -Strict I's and O's. -10/01: Urine output within normal limits over last 24 hours. HTN: -Continue Coreg, Lasix, and Lisinopril -09/30: Patient required prn Clonidine dose 0.1 mg at midnight for BP of 195/96, but his BP had been running high yesterday likely because Lasix and Lisinopril were held for 2 days prior. BP improved this morning. Will continue to monitor. -10/01 Now hypotensive. See above. Sepsis: met sepsis criteria with tachycardia HR 110 and tachypnea RR 24, Leukocytosis WBC 11.8K, suspected infection in left heel ulcer vs early pneumonia -Completed treatment with Levaquin 750mg po qd x7days, discontinued -CBC improved, leukocytosis/sepsis resolved. COPD exacerbation: mild, suspect worsened by fluid overload. CXR images showed no acute findings, chronic right apical scarring and left apical bulla -Duonebs as needed -On room air -much improved, symptoms resolved Noncompliance: patient very noncompliant, has not taken medications in months, does not follow up, has had 17 hospital visits in the past 2.5 weeks since . -counseled by colleague on importance of compliance to medical regimen -case management to assist with discharge planning, has filled all prescriptions Normocytic Anemia: Hgb 8.2 on admission, chronic, consistent with baseline. H/o upper GI bleed during hospitalization in August of this year requiring blood transfusion. Endoscopy at that revealed esophagitis with Medina's on pathology. -Continue ferrous sulfate bid -09/27: Dark stools reported. Hemoglobin stable. Hemoccult negative. Likely dark due to iron. 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 Failed outpatient, multiple attempts, has visited ER almost every day since 09/01. -Aspirin. -PT/OT recommending rehab -Difficult placement due to no insurance and no home to arrange [facility] Severe Protein Calorie Malnutrition: BMI 14.7, Albumin 3, +cachexia with bitemporal wasting. Suspect secondary to poor oral intake while homeless. -Rubber Tubing Splicer has evaluated the patient and recommends Ensure Enlive tid and send milk and yogurt with meals. Monitor po intake and weight. Constipation: PRN laxatives. DVT prophylaxis: SCDs Discharge Planning Requires placement Cayla Maya Oct 01, 2016 11:02
[2016-10-01] MEDS: FERROUS SULFATE 325 MG (65 MG ELEMENTAL IRON) TAB PO SCH ×2 (11:44→17:36)
[2016-10-01 12:00] VITALS: BP 92/62; PULSE 62; RESP 18; TEMP 97.3; O2SAT 92
[2016-10-01 14:27] LABS: AUTOMATED NEUTROPHIL # 4.8 TH/MM3 (1.8-7.7); BASOPHIL # 0.1 TH/MM3 (0-0.2); EOSINOPHIL # 0.3 TH/MM3 (0-0.4); EOSINOPHIL % 4.4 % (0.0-4.0); HEMATOCRIT 33.8 % (39.0-51.0); LYMPH % 22.4 % (9.0-44.0); LYMPHOCYTE # 1.7 TH/MM3 (1.0-4.8); MEAN CELL VOLUME 84.1 FL (80.0-100.0); MEAN CORPUSCULAR HEMOGLOBIN 27.5 PG (27.0-34.0); MEAN CORPUSCULAR HGB CONC 32.7 % (32.0-36.0); MONO % 7.4 % (0.0-8.0); NEUT % 64.8 % (16.0-70.0); PLATELET COUNT 389 TH/MM3 (150-450); RED BLOOD COUNT 4.02 MIL/MM3 (4.50-5.90); RED CELL DISTRIBUTION WIDTH 18.1 % (11.6-17.2); WHITE BLOOD COUNT 7.5 TH/MM3 (4.0-11.0)
[2016-10-01 14:32] LABS: HEMO FLAGS DIFF FINAL
[2016-10-01 14:38] LABS: BICARBONATE 29.9 MEQ/L (21.0-32.0)
[2016-10-01 16:21] VITALS: BP 98/66
[2016-10-01 17:42] VITALS: BP 82/54
[2016-10-01] MEDS ORDERED: SODIUM CHLOR 0.9% 250 ML INJ 250 ML IV ONE (18:00)
[2016-10-01 20:00] VITALS: BP 157/77; PULSE 62; RESP 16; TEMP 97.3; O2SAT 100
[2016-10-01] MEDS: ATORVASTATIN 20 MG TAB PO SCH (21:34)
[2016-10-01] MEDS: PANTOPRAZOLE SOD 40 MG DELAYED RELEASE TAB PO SCH (21:34)
[2016-10-02] VITALS: BP 137/84; PULSE 64; RESP 16; TEMP 97; O2SAT 98
[2016-10-02 04:00] VITALS: BP 137/75; PULSE 74; RESP 16; TEMP 96; O2SAT 100
[2016-10-02 06:15] LABS: POTASSIUM 4.2 MEQ/L (3.5-5.1)
[2016-10-02 06:21] LABS: BICARBONATE 28.6 MEQ/L (21.0-32.0)
[2016-10-02] MEDS: DOCUSATE SODIUM 50 MG/SENNA 8.6 MG TAB PO SCH ×3 (08:57→21:26)
[2016-10-02] MEDS: CARVEDILOL 3.125 MG TAB PO SCH ×3 (08:57→21:26)
[2016-10-02] MEDS: LISINOPRIL 10 MG TAB PO SCH (08:57)
[2016-10-02] MEDS: ASPIRIN EC 81 MG TABEC PO SCH ×2 (08:57→10:18)
[2016-10-02] MEDS: FUROSEMIDE 20 MG TAB PO SCH ×3 (08:57→17:52)
[2016-10-02] MEDS: SODIUM CHLORIDE 0.9% FLUSH 10 ML FLUSH IV FLUSH SCH ×2 (08:59→21:26)
[2016-10-02 09:06] VITALS: BP 142/79; PULSE 61; RESP 16; TEMP 95.5; O2SAT 100
[2016-10-02] MEDS ORDERED: PILL SPLITTER OTHER PRN (09:15)
[2016-10-02] MEDS: LISINOPRIL 5 MG TAB PO SCH (10:18)
--- NOTE | 2016-10-02 11:23 | HHI.PR ---
Subjective Remarks Follow-up for unsafe discharge, SHANTELLE, hypotension. Patient admits to lightheadedness and dizziness which is chronic. Denies any chest pain, shortness of breath, abdominal pain, vomiting, or diarrhea. Objective Vitals Vital Signs Date Time Temp Pulse Resp B/P (MAP) Pulse Ox O2 Delivery O2 Flow Rate FiO2 10/02/16 09:06 95.5 61 16 142/79 (100) 100 10/02/16 04:00 96.0 74 16 137/75 (95) 100 10/02/16 00:00 97.0 64 16 137/84 (101) 98 10/01/16 20:00 97.3 62 16 157/77 (103) 100 10/01/16 17:42 82/54 (63) 10/01/16 16:21 98/66 (77) 10/01/16 12:00 97.3 62 18 92 92/62 (72) I/O 10/01/16 10/01/16 10/01/16 10/02/16 10/02/16 10/02/16 07:00 15:00 23:00 07:00 15:00 23:00 Intake Total 120 ml 360 ml 850 ml 220 ml Output Total 650 ml 300 ml 350 ml 150 ml Balance -530 ml 60 ml 500 ml 70 ml Intake Oral 120 ml 360 ml 600 ml 220 ml IV Total 250 ml Output Urine Total 650 ml 300 ml 350 ml 150 ml # Voids 1 1 # Bowel Movements 1 0 Result Diagram: 10/01/16 1423 10/02/16 0538 Objective Remarks GENERAL: Cachectic appearing male. CARDIOVASCULAR: Regular rate and rhythm. 1-2/6 murmur. RESPIRATORY: No accessory muscle use. Clear to auscultation. Breath sounds equal bilaterally. GASTROINTESTINAL: Abdomen soft, non-tender, nondistended. NEUROLOGICAL: Awake and alert. Normal speech. PSYCHIATRIC: Appropriate mood and affect. Procedures None. Urinary Catheter: No Vascular Central Line Catheter: No A/P Problem List: (1) Hypotension ICD Code: I95.9 - Hypotension, unspecified Status: Resolved (2) Yjnaw-pe-gfjxnbe renal failure ICD Code: N17.9 - Acute kidney failure, unspecified; N18.9 - Chronic kidney disease, unspecified Status: Acute (3) CHF exacerbation ICD Code: I50.9 - Heart failure, unspecified Status: Resolved Assessment and Plan 56-year-old male with: Hypotension: Resolved. -CBC with normal WBC count. Hemoglobin improved at 11.1. -S/p NS bolus yesterday -Coreg, Lisinopril, and Lasix resumed this morning. Hold parameters in place. Per Dr. Thrasher, Lisinopril was restarted at lower dose of 2.5 mg po daily. Can titrate up if needed. -Pain medication discontinued -D/c q4 vitals; change to qshift. Acute on chronic renal failure: Improved -BUN/creatinine 57/2.60 on 09/27 -Renal ultrasound shows small echogenic kidneys right greater than left, but no obstruction. -Avoid nephrotoxins. -S/p another 250 mL IV bolus of NS on 10/01 -10/02: BUN/Cr improved to 37/1.40; Cr of 1.4 is likely baseline. -Monitor renal function periodically Acute Exacerbation of Chronic Systolic CHF, Failed Outpatient: Improved. BNP elevated at 2864-->196. Echocardiogram July 2016 shows an EF of 35-40% and Grade 2 Diastolic Dysfunction. -Recently evaluated by cardiology 09/10/16, recommended medical management; not a candidate for defibrillator due to noncompliance and lack of f/up; needs to improve compliance with medications -S/p IV Lasix. Currently on Lasix 20mg po bid. -Continue Coreg 3.125mg bid, Lisinopril 2.5 mg daily, aspirin 81mg daily, atorvastatin 20mg hs. -1800 mL fluid restriction -Strict I's and O's. HTN: Stable -Continue Coreg, Lasix, and Lisinopril -09/30: Patient required prn Clonidine dose 0.1 mg at midnight for BP of 195/96, but his BP had been running high yesterday likely because Lasix and Lisinopril were held for 2 days prior. BP improved this morning. Will continue to monitor. -10/01 Now hypotensive. See above. Sepsis: met sepsis criteria with tachycardia HR 110 and tachypnea RR 24, Leukocytosis WBC 11.8K, suspected infection in left heel ulcer vs early pneumonia -Completed treatment with Levaquin 750mg po qd x7days, discontinued -CBC improved, leukocytosis/sepsis resolved. COPD exacerbation: mild, suspect worsened by fluid overload. CXR images showed no acute findings, chronic right apical scarring and left apical bulla -Duonebs as needed -On room air -much improved, symptoms resolved Noncompliance: patient very noncompliant, has not taken medications in months, does not follow up, has had 17 hospital visits in the past 2.5 weeks since . -counseled by colleague on importance of compliance to medical regimen -case management to assist with discharge planning, has filled all prescriptions Normocytic Anemia: Hgb 8.2 on admission, chronic, consistent with baseline. H/o upper GI bleed during hospitalization in August of this year requiring blood transfusion. Endoscopy at that revealed esophagitis with Medina's on pathology. -Continue ferrous sulfate bid -09/27: Dark stools reported. Hemoglobin stable. Hemoccult negative. Likely dark due to iron. 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 Failed outpatient, multiple attempts, has visited ER almost every day since 09/01. -Aspirin. -PT/OT recommending rehab -Difficult placement due to no insurance and no home to arrange [facility] Severe Protein Calorie Malnutrition: BMI 14.7, Albumin 3, +cachexia with bitemporal wasting. Suspect secondary to poor oral intake while homeless. -Technology Analyst has evaluated the patient and recommends Ensure Enlive tid and send milk and yogurt with meals. Monitor po intake and weight. Constipation: PRN laxatives. DVT prophylaxis: SCDs Discharge Planning Requires placement Cayla Maya Oct 02, 2016 11:23
[2016-10-02] MEDS: FERROUS SULFATE 325 MG (65 MG ELEMENTAL IRON) TAB PO SCH ×2 (12:13→17:52)
[2016-10-02 16:42] VITALS: BP 134/69; PULSE 72; RESP 16; TEMP 97.8; O2SAT 100
[2016-10-02 20:00] VITALS: BP 123/67; PULSE 63; RESP 20; TEMP 98.1; O2SAT 98
[2016-10-02] MEDS: ATORVASTATIN 20 MG TAB PO SCH (21:27)
[2016-10-02] MEDS: PANTOPRAZOLE SOD 40 MG DELAYED RELEASE TAB PO SCH (21:27)
[2016-10-03] MEDS: FUROSEMIDE 20 MG TAB PO SCH ×2 (09:29→17:21)
[2016-10-03] MEDS: DOCUSATE SODIUM 50 MG/SENNA 8.6 MG TAB PO SCH (09:29)
[2016-10-03] MEDS: ASPIRIN EC 81 MG TABEC PO SCH (09:30)
[2016-10-03] MEDS: CARVEDILOL 3.125 MG TAB PO SCH ×2 (09:30→20:30)
[2016-10-03] MEDS: LISINOPRIL 5 MG TAB PO SCH (09:30)
[2016-10-03] MEDS: SODIUM CHLORIDE 0.9% FLUSH 10 ML FLUSH IV FLUSH SCH (09:31)
[2016-10-03] MEDS: FERROUS SULFATE 325 MG (65 MG ELEMENTAL IRON) TAB PO SCH ×2 (11:49→17:21)
[2016-10-03 12:53] VITALS: BP 123/79; PULSE 93; RESP 22; TEMP 97.2; O2SAT 97
--- NOTE | 2016-10-03 14:31 | HHI.PR ---
Subjective Remarks Patient seen and examined today for follow-up on a safe discharge. Patient resting in bed comfortably. Denies any new complaints. Patient unable to be discharged home, physical therapy and occupational therapy recommended patient go to rehabilitation. However, patient has Social Security pending. Case management for discharge planning Objective Vitals Vital Signs Date Time Temp Pulse Resp B/P (MAP) Pulse Ox O2 Delivery O2 Flow Rate FiO2 10/03/16 12:53 97.2 93 22 123/79 (94) 97 10/02/16 20:00 98.1 63 20 123/67 (85) 98 10/02/16 16:42 97.8 72 16 134/69 (90) 100 I/O 10/02/16 10/02/16 10/02/16 10/03/16 10/03/16 10/03/16 07:00 15:00 23:00 07:00 15:00 23:00 Intake Total 220 ml 360 ml 240 ml Output Total 150 ml 200 ml 400 ml 550 ml Balance 70 ml -200 ml -40 ml -310 ml Intake Oral 220 ml 360 ml 240 ml Output Urine Total 150 ml 200 ml 400 ml 550 ml # Bowel Movements 0 1 1 1 Result Diagram: 10/01/16 1423 10/02/16 0538 Objective Remarks GENERAL: Well-developed cachectic, in no acute distress. alert and orientated HEENT: Head is normocephalic without any lesions or masses noted. Facial features are symmetric. Eyes: Extraocular muscles are intact. Conjunctivae were clear. NECK: Trachea midline no deviation. CARDIAC: Regular rhythm, regular rate. S1/S2 are heard. No murmurs gallops or rubs. LUNGS: Clear to auscultation bilaterally. No wheeze, rhonchi or rales. No use of accessory muscles on inspiration or expiration. ABDOMEN: Soft, nontender. Nondistended. Bowel sounds heard in all 4 quadrants. No organomegaly or masses. Negative rebound, negative guarding EXTREMITIES: No edema, pulses are equal bilaterally. No cyanosis or clubbing NEUROLOGY: Mood and affect appear appropriate. Patient with 3/5 strength of the left upper and lower extremity. Speech is clear Procedures None. Urinary Catheter: No Vascular Central Line Catheter: No A/P Assessment and Plan Unsafe discharge due to previous CVA and left-sided weakness, chronic deconditioning, noncompliance -Case management for discharge planning, patient is SSI pending, patient will need rehabilitation facility for management and care -Continue physical therapy and occupational therapy -Noncompliance: patient very noncompliant, has not taken medications in months, does not follow up, has had 17 hospital visits in the past 2.5 weeks since . -counseled by colleague on importance of compliance to medical regimen Acute Exacerbation of Chronic Systolic CHF, Failed Outpatient: Resolved -Echocardiogram July 2016 shows an EF of 35-40% and Grade 2 Diastolic Dysfunction. -Cardiology consulted and patient seen on 09/10/16, recommended medical management ; not a candidate for defibrillator due to noncompliance and lack of f/up; needs to improve compliance with medications -Lasix 20mg po bid. -Coreg 3.125mg bid -Lisinopril 2.5 mg daily -Aspirin 81mg daily, -Atorvastatin 20mg hs. -1800 mL fluid restriction -Strict I's and O's. Sepsis: Resolved -met sepsis criteria with tachycardia HR 110 and tachypnea RR 24, Leukocytosis WBC 11.8K, suspected infection in left heel ulcer vs early pneumonia -Completed treatment with Levaquin 750mg po qd x7days, discontinued Chronic kidney disease stage III, stable -Renal ultrasound shows small echogenic kidneys right greater than left, but no obstruction. -Avoid nephrotoxins. Hypertension: Stable -Continue Coreg, Lasix, and Lisinopril Chronic obstructive pulmonary disease, stable -Duonebs as needed -Patient has been weaned off oxygen Normocytic Anemia: Stable -Continue ferrous sulfate bid -Continue Protonix History of cerebral vascular accident with residual weakness and chronic deconditioning -Continue Aspirin. -Continue PT/OT Severe Protein Calorie Malnutrition: Chronic -Hairspring I Inspector has evaluated the patient and recommends Ensure Enlive tid and send milk and yogurt with meals. Monitor po intake and weight. DVT prophylaxis: Sequential compression devices Discharge Planning Discharge planning per case management Geovanny Carrillo Oct 03, 2016 14:31
[2016-10-03 20:00] VITALS: BP 112/74; PULSE 76; RESP 20; TEMP 97.8; O2SAT 100
[2016-10-03] MEDS: DOCUSATE SODIUM 100 MG CAP PO SCH (20:30)
[2016-10-03] MEDS: PANTOPRAZOLE SOD 40 MG DELAYED RELEASE TAB PO SCH (20:30)
[2016-10-03] MEDS: ATORVASTATIN 20 MG TAB PO SCH (20:30)
[2016-10-04 08:00] VITALS: BP 115/79; PULSE 75; RESP 19; TEMP 97.9; O2SAT 100
[2016-10-04] MEDS: CARVEDILOL 3.125 MG TAB PO SCH ×2 (08:17→22:18)
[2016-10-04] MEDS: DOCUSATE SODIUM 100 MG CAP PO SCH ×2 (08:17→22:18)
[2016-10-04] MEDS: ASPIRIN EC 81 MG TABEC PO SCH (08:17)
[2016-10-04] MEDS: FUROSEMIDE 20 MG TAB PO SCH ×2 (08:17→18:44)
[2016-10-04] MEDS: LISINOPRIL 5 MG TAB PO SCH (08:17)
--- NOTE | 2016-10-04 11:34 | HHI.PR ---
Subjective Remarks Patient seen and examined today for follow-up on unsafe discharge. Patient lying in bed. States that he did well with physical therapy yesterday. States that he was able to get up and ambulate with his hemiwalker and use bedside commode. Objective Vitals Vital Signs Date Time Temp Pulse Resp B/P (MAP) Pulse Ox O2 Delivery O2 Flow Rate FiO2 10/04/16 08:00 97.9 75 19 115/79 (91) 100 10/03/16 20:00 97.8 76 20 112/74 (87) 100 Manual Cuff/Auscultation 10/03/16 12:53 97.2 93 22 123/79 (94) 97 I/O 10/03/16 10/03/16 10/03/16 10/04/16 10/04/16 10/04/16 07:00 15:00 23:00 07:00 15:00 23:00 Intake Total 240 ml 100 ml 120 ml Output Total 550 ml 350 ml Balance -310 ml 100 ml -230 ml Intake Oral 240 ml 100 ml 120 ml Output Urine Total 550 ml 350 ml # Bowel Movements 1 0 Result Diagram: 10/01/16 1423 10/02/16 0538 Objective Remarks GENERAL: Well-developed cachectic, in no acute distress. alert and orientated HEENT: Head is normocephalic without any lesions or masses noted. Facial features are symmetric. Eyes: Extraocular muscles are intact. Conjunctivae were clear. NECK: Trachea midline no deviation. CARDIAC: Regular rhythm, regular rate. S1/S2 are heard. No murmurs gallops or rubs. LUNGS: Clear to auscultation bilaterally. No wheeze, rhonchi or rales. No use of accessory muscles on inspiration or expiration. ABDOMEN: Soft, nontender. Nondistended. Bowel sounds heard in all 4 quadrants. No organomegaly or masses. Negative rebound, negative guarding EXTREMITIES: No edema, pulses are equal bilaterally. No cyanosis or clubbing NEUROLOGY: Mood and affect appear appropriate. Patient with 3/5 strength of the left upper and lower extremity. Speech is clear Procedures None. Urinary Catheter: No Vascular Central Line Catheter: No A/P Assessment and Plan Unsafe discharge due to previous CVA and left-sided weakness, chronic deconditioning, noncompliance -Case management for discharge planning, patient is SSI pending, patient will need rehabilitation facility for management and care -Continue physical therapy and occupational therapy -Noncompliance: patient very noncompliant, has not taken medications in months, does not follow up, has had 17 hospital visits in the past 2.5 weeks since . -counseled by colleague on importance of compliance to medical regimen Acute Exacerbation of Chronic Systolic CHF, Failed Outpatient: Resolved -Echocardiogram July 2016 shows an EF of 35-40% and Grade 2 Diastolic Dysfunction. -Cardiology consulted and patient seen on 09/10/16, recommended medical management ; not a candidate for defibrillator due to noncompliance and lack of f/up; needs to improve compliance with medications -Lasix 20mg po bid. -Coreg 3.125mg bid -Lisinopril 2.5 mg daily -Aspirin 81mg daily, -Atorvastatin 20mg hs. -1800 mL fluid restriction -Strict I's and O's. Sepsis: Resolved -met sepsis criteria with tachycardia HR 110 and tachypnea RR 24, Leukocytosis WBC 11.8K, suspected infection in left heel ulcer vs early pneumonia -Completed treatment with Levaquin 750mg po qd x7days, discontinued Chronic kidney disease stage III, stable -Renal ultrasound shows small echogenic kidneys right greater than left, but no obstruction. -Avoid nephrotoxins. Hypertension: Stable -Continue Coreg, Lasix, and Lisinopril Chronic obstructive pulmonary disease, stable -Duonebs as needed -Patient has been weaned off oxygen Normocytic Anemia: Stable -Continue ferrous sulfate bid -Continue Protonix History of cerebral vascular accident with residual weakness and chronic deconditioning -Continue Aspirin. -Continue PT/OT Severe Protein Calorie Malnutrition: Chronic -Table Worker has evaluated the patient and recommends Ensure Enlive tid and send milk and yogurt with meals. Monitor po intake and weight. DVT prophylaxis: Sequential compression devices Discharge Planning Discharge planning per case management Geovanny Carrillo Oct 04, 2016 11:34
[2016-10-04] MEDS: FERROUS SULFATE 325 MG (65 MG ELEMENTAL IRON) TAB PO SCH ×2 (12:00→18:44)
[2016-10-04 20:00] VITALS: BP 159/77; PULSE 82; RESP 20; TEMP 95.9; O2SAT 98
[2016-10-04] MEDS: PANTOPRAZOLE SOD 40 MG DELAYED RELEASE TAB PO SCH (22:18)
[2016-10-04] MEDS: ATORVASTATIN 20 MG TAB PO SCH (22:19)
[2016-10-05] MEDS: DOCUSATE SODIUM 100 MG CAP PO SCH ×2 (07:49→21:27)
[2016-10-05] MEDS: LISINOPRIL 5 MG TAB PO SCH (07:49)
[2016-10-05] MEDS: CARVEDILOL 3.125 MG TAB PO SCH ×2 (07:49→21:27)
[2016-10-05] MEDS: ASPIRIN EC 81 MG TABEC PO SCH (07:49)
[2016-10-05] MEDS: FUROSEMIDE 20 MG TAB PO SCH ×2 (07:49→17:40)
[2016-10-05 08:00] VITALS: BP 168/70; PULSE 88; RESP 16; TEMP 96.7; O2SAT 96
[2016-10-05] MEDS: FERROUS SULFATE 325 MG (65 MG ELEMENTAL IRON) TAB PO SCH ×2 (12:14→17:40)
--- NOTE | 2016-10-05 13:08 | HHI.PR ---
Subjective Remarks d patient seen and examined today for follow-up on unsafe discharge. Patient lying in bed. Denies any new complaints. Patient continues work with physical therapy on a regular basis. Objective Vitals Vital Signs Date Time Temp Pulse Resp B/P (MAP) Pulse Ox O2 Delivery O2 Flow Rate FiO2 10/05/16 08:00 96.7 88 16 96 168/70 (102) 10/04/16 20:00 95.9 82 20 159/77 (104) 98 I/O 10/04/16 10/04/16 10/04/16 10/05/16 10/05/16 10/05/16 07:00 15:00 23:00 07:00 15:00 23:00 Intake Total 120 ml 620 ml Output Total 350 ml 350 ml Balance -230 ml 270 ml Intake Oral 120 ml 620 ml Output Urine Total 350 ml 350 ml # Voids 1 # Bowel Movements 0 Result Diagram: 10/01/16 1423 10/02/16 0538 Objective Remarks GENERAL: Well-developed cachectic, in no acute distress. alert and orientated HEENT: Head is normocephalic without any lesions or masses noted. Facial features are symmetric. Eyes: Extraocular muscles are intact. Conjunctivae were clear. NECK: Trachea midline no deviation. CARDIAC: Regular rhythm, regular rate. S1/S2 are heard. No murmurs gallops or rubs. LUNGS: Clear to auscultation bilaterally. No wheeze, rhonchi or rales. No use of accessory muscles on inspiration or expiration. ABDOMEN: Soft, nontender. Nondistended. Bowel sounds heard in all 4 quadrants. No organomegaly or masses. Negative rebound, negative guarding EXTREMITIES: No edema, pulses are equal bilaterally. No cyanosis or clubbing NEUROLOGY: Mood and affect appear appropriate. Patient with 3/5 strength of the left upper and lower extremity. Speech is clear Procedures None. Urinary Catheter: No Vascular Central Line Catheter: No A/P Assessment and Plan Unsafe discharge due to previous CVA and left-sided weakness, chronic deconditioning, noncompliance -Case management for discharge planning, patient is SSI pending, patient will need rehabilitation facility for management and care -Continue physical therapy and occupational therapy -Noncompliance: patient very noncompliant, has not taken medications in months, does not follow up, has had 17 hospital visits in the past 2.5 weeks since . -counseled by colleague on importance of compliance to medical regimen Acute Exacerbation of Chronic Systolic CHF, Failed Outpatient: Resolved -Echocardiogram July 2016 shows an EF of 35-40% and Grade 2 Diastolic Dysfunction. -Cardiology consulted and patient seen on 09/10/16, recommended medical management ; not a candidate for defibrillator due to noncompliance and lack of f/up; needs to improve compliance with medications -Lasix 20mg po bid. -Coreg 3.125mg bid -Lisinopril 2.5 mg daily -Aspirin 81mg daily, -Atorvastatin 20mg hs. -1800 mL fluid restriction -Strict I's and O's. Sepsis: Resolved -met sepsis criteria with tachycardia HR 110 and tachypnea RR 24, Leukocytosis WBC 11.8K, suspected infection in left heel ulcer vs early pneumonia -Completed treatment with Levaquin 750mg po qd x7days, discontinued Chronic kidney disease stage III, stable -Renal ultrasound shows small echogenic kidneys right greater than left, but no obstruction. -Avoid nephrotoxins. Hypertension: Stable -Continue Coreg, Lasix, and Lisinopril Chronic obstructive pulmonary disease, stable -Duonebs as needed -Patient has been weaned off oxygen Normocytic Anemia: Stable -Continue ferrous sulfate bid -Continue Protonix History of cerebral vascular accident with residual weakness and chronic deconditioning -Continue Aspirin. -Continue PT/OT Severe Protein Calorie Malnutrition: Chronic -Senior Asp Net Developer has evaluated the patient and recommends Ensure Enlive tid and send milk and yogurt with meals. Monitor po intake and weight. DVT prophylaxis: Sequential compression devices Discharge Planning Discharge planning per case management Geovanny Carrillo Oct 05, 2016 13:08
[2016-10-05] MEDS ORDERED: WALKER/FOLDING1 MIS (16:46)
[2016-10-05] MEDS ORDERED: WHEEMIS3 (16:46)
[2016-10-05 20:00] VITALS: BP 119/72; PULSE 72; RESP 20; TEMP 97.3; O2SAT 96
[2016-10-05] MEDS: PANTOPRAZOLE SOD 40 MG DELAYED RELEASE TAB PO SCH (21:27)
[2016-10-05] MEDS: ATORVASTATIN 20 MG TAB PO SCH (21:28)
[2016-10-06 08:00] VITALS: BP 138/88; PULSE 59; RESP 16; TEMP 96.9; O2SAT 96
[2016-10-06] MEDS: FUROSEMIDE 20 MG TAB PO SCH ×2 (09:32→17:17)
[2016-10-06] MEDS: ASPIRIN EC 81 MG TABEC PO SCH (09:32)
[2016-10-06] MEDS: DOCUSATE SODIUM 100 MG CAP PO SCH (09:32)
[2016-10-06] MEDS: LISINOPRIL 5 MG TAB PO SCH (09:32)
[2016-10-06] MEDS: CARVEDILOL 3.125 MG TAB PO SCH (09:33)
[2016-10-06 09:34] VITALS: PULSE 70; RESP 20; O2SAT 95
[2016-10-06] MEDS: FERROUS SULFATE 325 MG (65 MG ELEMENTAL IRON) TAB PO SCH ×2 (12:32→17:15)
--- NOTE | 2016-10-06 13:51 | HHI.FF ---
Face to Face Verification Diagnosis: (1) CVA (cerebral vascular accident) (2) Weakness Physical Therapy Order: Evaluate and Treat, Improve ambulation, Strength and gait training Occupational Therapy Order: Evaluate and Treat, Improve ADL, Gross motor coordination, Fine motor coordination Home Health Nursing Order: Medical education Signs/symptoms of disease process Nursing assessment with vital signs I have seen patient Joon Porter on 10/06/16. My clinical findings support the need for the requested home health care services because: Deconditioned w/ increased weakness Limited ability to care for self I certify that my clinical findings support that this patient is homebound because: Unsteady gait/balance Unsafe to leave home unassisted Geovanny Carrillo Oct 06, 2016 13:51
[2016-10-06] MEDS ORDERED: FERR325T20 PO (13:54)
[2016-10-06] MEDS ORDERED: LISI-519 PO (13:54)
--- NOTE | 2016-10-06 13:56 | HHI.DCPOC ---
Discharge Care Plan Diagnosis: (1) CVA (cerebral vascular accident) (2) Weakness Goals to Promote Your Health * To prevent worsening of your condition and complications * To maintain your health at the optimal level Directions to Meet Your Goals Take your medications as prescribed Follow your dietary instruction Follow activity as directed Keep your appointments as scheduled Take your immunizations and boosters as scheduled If your symptoms worsen call your PCP, if no PCP go to Urgent Care Center or Emergency Room Smoking is Dangerous to Your Health. Avoid second hand smoke Call the 24-hour hour crisis hotline for domestic abuse at Geovanny Carrillo Oct 06, 2016 13:56
--- NOTE | 2016-10-06 14:00 | HHI.DS ---
Discharge Summary Admission Date Sep 19, 2016 at 02:08 Discharge Date: Oct 06, 2016 Admitting Diagnosis COPD exacerbation (1) Hypotension ICD Code: I95.9 - Hypotension, unspecified Status: Resolved (2) Gdrvd-cs-mnjkyna renal failure ICD Code: N17.9 - Acute kidney failure, unspecified; N18.9 - Chronic kidney disease, unspecified Status: Acute (3) CHF exacerbation ICD Code: I50.9 - Heart failure, unspecified Status: Resolved (4) CVA (cerebral vascular accident) ICD Code: I63.9 - Cerebral infarction, unspecified Status: Acute (5) Weakness ICD Code: R53.1 - Weakness Procedures None. Brief History - From Admission Written by AMNISH Austin acting as scribe for [Anirudh] on 09/19/16 at 04: 19. 56 y.o male with a history of hypertension, COPD, arthritis, chronic anemia, and pneumothorax came to hospital cause he states he cant live in the streets anymore. He complains of dizziness, nausea, and vomiting 1-2 times last night. He states his emesis is brown in color. Denies any fevers, abdominal pain, or chest pain. He was seen yesterday in the ER for an ulcer on his left heal, and states he has not started the antibiotics. He has had this ulcer for at least one week. He states he does have sob that comes and goes worse when he walks around. He states he has not been on medications for any of his chronic medical conditions for quite some time. CBC/BMP: 10/06/16 0715 Significant Findings Laboratory Tests Test 10/06/16 07:15 Blood Urea Nitrogen 42 MG/DL (7-18) Creatinine 1.50 MG/DL (0.60-1.30) Estimat Glomerular Filtration Rate 48 ML/MIN (>89) Imaging Last Impressions Renal Ultrasound 09/27/16 0000 Signed Impressions: Service Date/Time: Sunday, September 27, 2016 14:25 - CONCLUSION: Small echogenic kidneys right greater than left. Rajinder Martines MD Chest X-Ray 09/18/16 5400 Signed Impressions: Service Date/Time: Sunday, September 18, 2016 23:07 - CONCLUSION: No acute findings. 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 Rg Montenegro MD PE at Discharge GENERAL: Well-developed cachectic, in no acute distress. alert and orientated HEENT: Head is normocephalic without any lesions or masses noted. Facial features are symmetric. Eyes: Extraocular muscles are intact. Conjunctivae were clear. NECK: Trachea midline no deviation. CARDIAC: Regular rhythm, regular rate. S1/S2 are heard. No murmurs gallops or rubs. LUNGS: Clear to auscultation bilaterally. No wheeze, rhonchi or rales. No use of accessory muscles on inspiration or expiration. ABDOMEN: Soft, nontender. Nondistended. Bowel sounds heard in all 4 quadrants. No organomegaly or masses. Negative rebound, negative guarding EXTREMITIES: No edema, pulses are equal bilaterally. No cyanosis or clubbing NEUROLOGY: Mood and affect appear appropriate. Patient with 3/5 strength of the left upper and lower extremity. Speech is clear Hospital Course 56 year-old male who originally presented to hospital because he cannot live on the street anymore. He had complaints of dizziness, nausea vomiting. Patient had workup done emergency department and found to have O2 saturation 95% on 4 L. ER physician recommended that the patient be admitted for further evaluation and management. Patient was admitted the hospital with O2 supplementation. Patient does have history of previous CVA and has hemiparesis. Patient is well-known to the hospital for multiple admissions multiple evaluations and signing out AGAINST MEDICAL ADVICE. Patient was in a safe discharge because he is homeless and no safe place to go. Patient was maintained in the hospital and transferred to [place] for continued management. Patient was only concerned about his SSI getting approved sitting in a motorized wheelchair. Patient continued treatment in the hospital and physical therapy/occupational therapy. Case management was on the case and has arrange patient be discharged to an BRI. Will plan discharge accordingly. Patient clinically stable this time Pt Condition on Discharge: Stable Discharge Disposition: [facility] with [facility] Discharge Time: > 30 minutes Discharge Instructions DIET: Follow Instructions for: Heart Healthy Diet Activities you can perform: Weight Bearing as Regina Follow up Referrals: PCP Follow-up - 1 Week New Medications: Walker/Folding Sandip (Walker/Folding Sandip) 1 Mis Mis EA .ROUTE DIRECTED, #1 Wheelchair Elevated Leg (Wheelchair Elevated Leg) 1 Mis Mis EA .ROUTE DIRECTED, #[address] (Adult Aspirin EC Low Strength) 81 Mg Tabec 81 MG PO DAILY for Prevent Blood Clot, #30 TAB Atorvastatin (Atorvastatin) 20 Mg Tab 20 MG PO HS for CHF, #30 TAB Carvedilol (Coreg) 3.125 Mg Tab 3.125 MG PO Q12HR for CHF, #60 TAB Ferrous Sulfate (Ferosul) 325 Mg (65 Mg Iron) Tablet 325 MG PO BID@12,17 for anemia, #60 TAB Furosemide (Furosemide) 20 Mg Tab 20 MG PO BID@09,18 for CHF, #60 TAB Lisinopril (Lisinopril) 5 Mg Tab 2.5 MG PO DAILY for Blood Pressure Management for 30 Days, TAB Geovanny Carrillo Oct 06, 2016 14:00
[2016-10-07] MEDS ORDERED: HYDR-3516 PO (14:23)
[2016-10-27] MEDS ORDERED: LISI10TA3 PO ×2 (11:26→11:33)
[2016-10-27] MEDS ORDERED: FERR325T20 PO (11:33)
[2016-10-27] MEDS ORDERED: CARV3.125 PO (11:33)
[2016-10-27] MEDS ORDERED: ASPI-99 PO (11:33)
[2016-10-27] MEDS ORDERED: FURO20TA PO (11:33)
[2016-10-27] MEDS ORDERED: ATOR20TA15 PO (11:33)
== END 2016-10-06 17:54 ==
LOC: NEPC 22:50 → NEDA 09-19 02:08 → NEPHCDU 09-19 04:37 → N05B 09-26 00:12 → PH5A 09-26 21:15
PROVIDERS: ADMIT Hospitalist; ATTEND Hospitalist
DX: J44.1 Chronic obstructive pulmonary disease with (acute) exacerbation (principal); I95.9 Hypotension, unspecified; I63.9 Cerebral infarction, unspecified; I50.23 Acute on chronic systolic (congestive) heart failure; N17.9 Acute kidney failure, unspecified; I13.0 Hypertensive heart and chronic kidney disease with heart failure and stage 1 through stage 4 chronic kidney disease, or unspecified chronic kidney disease; N18.9 Chronic kidney disease, unspecified; R53.1 Weakness; L97.429 Non-pressure chronic ulcer of left heel and midfoot with unspecified severity; E78.5 Hyperlipidemia, unspecified; Z59.0 Homelessness; K59.00 Constipation, unspecified; E43 Unspecified severe protein-calorie malnutrition; D72.829 Elevated white blood cell count, unspecified; F10.10 Alcohol abuse, uncomplicated; F17.200 Nicotine dependence, unspecified, uncomplicated
CPT/HCPCS: 71010; 76775; 80048; 80053; 81001; 82272; 83690; 83735; 83880; 85025; 85027; 94640; 94664; 97110; 97116; 97162; 97166; 97530; 97535; G8987; G8988; J1940; J2405; J2930; J7050; 96361; 96374; 96375; 96376; G0378

== ENCOUNTER 2016-10-07 13:04 | Emergency (ER) | payer OTHER ==
[~2016-10-07] VITALS: Ht 177.8 cm; Wt 45.0 kg
[~2016-10-07 13:04] MED LIST changes: +ASPI-99 PO; -ASPI81TA11 PO; -BACT800T5 PO; -CARV3.12 PO; -CEPH-460 PO; +FERR325T20 PO; -MECL1TAB42 PO; -POTA10CA PO; -TYLE325T PO; +WALKER/FOLDING1 MIS; +WHEEMIS3; -[UNRECOGNIZED DRUG - CODE] PO
[2016-10-07 13:27] VITALS: BP 93/65; PULSE 86; RESP 16; TEMP 98.9; O2SAT 99
[2016-10-07] MEDS ORDERED: HYDR-3516 PO (14:23)
--- NOTE | 2016-10-07 14:23 | PD ---
HPI Chief Complaint: Back/ Neck Pain or Injury Time Seen by Provider: 14:10 Travel History International Travel<30 days: No Contact w/Intl Traveler<30days: No Traveled to known affect area: No History of Present Illness HPI This is a 56-year-old male who was hospitalized in the setting of COPD. He's had a stroke in the past and has chronic left-sided upper and lower extremity weakness and has difficulty ambulating. He was admitted because he is homeless and they kept him to facilitate a safe discharge. He was discharged to an ALS. He comes in today because he was not discharged with any pain medication and he reports he was discharged with a wheelchair but no sandip-walker. He otherwise has no complaints and feels well. He says that he doesn't really like his ALS and he thinks he do better in a tent with his girlfriend there to help take care of him. PFSH Past Medical History Hx Anticoagulant Therapy: Yes (unknown) Arthritis: Yes Asthma: Yes Autoimmune Disease: No Blood Disorders: No Anxiety: Yes Depression: Yes Heart Rhythm Problems: No Cancer: No Cardiovascular Problems: Yes (HTN, HIGH CHOL) High Cholesterol: Yes Congestive Heart Failure: Yes COPD: Yes Cerebrovascular Accident: Yes Diabetes: No Diminished Hearing: No Endocrine: No Gastrointestinal Disorders: No Genitourinary: No Hypertension: Yes Immune Disorder: No Implanted Vascular Access Dvce: Yes Musculoskeletal: Yes (rt ankle surgery /hardware) Neurologic: Yes (stroke w lt sided defecit) Psychiatric: Yes Reproductive: No Respiratory: Yes Immunizations Current: No Thyroid Disease: No Past Surgical History Abdominal Surgery: No Body Medical Devices: HARDWARE RT ANKLE Cardiac Surgery: No Ear Surgery: No Endocrine Surgery: No Eye Surgery: Yes (detached retina right eye) Genitourinary Surgery: No Gynecologic Surgery: No Oral Surgery: No Thoracic Surgery: Yes (right lung chest tube ) Other Surgery: Yes (RIGHT ANKLE, 8 SCREWS AND PLATE) Social History Alcohol Use: No Tobacco Use: Yes (1 PPD) Substance Use: No Allergies-Medications (Allergen,Severity, Reaction): Coded Allergies: No Known Allergies (Verified , 10/07/16) Reported Meds & Prescriptions Reported Meds & Active Scripts Active Ferosul (Ferrous Sulfate) 325 Mg (65 Mg Iron) Tablet 325 Mg PO BID@ Lisinopril 5 Mg Tab 2.5 Mg PO DAILY 30 Days Walker/Folding Sandip (Device) 1 Mis Mis Ea .ROUTE DIRECTED Wheelchair Elevated Leg (Device) 1 Mis Mis Ea .ROUTE DIRECTED Adult Aspirin EC Low Strength (Aspirin) 81 Mg Tabec 81 Mg PO DAILY Atorvastatin (Atorvastatin Calcium) 20 Mg Tab 20 Mg PO HS Coreg (Carvedilol) 3.125 Mg Tab 3.125 Mg PO Q12HR Furosemide 20 Mg Tab 20 Mg PO BID@09,18 Review of Systems Except as stated in HPI: all other systems reviewed are Neg Physical Exam Narrative GENERAL: Thin, disheveled SKIN: Focused skin assessment warm and dry. HEAD: Atraumatic. Normocephalic. EYES: Pupils equal and round. No injection or drainage. ENT: Moist mucous membranes NECK: Trachea midline. CARDIOVASCULAR: Regular rate and rhythm. No murmur appreciated. RESPIRATORY: Clear to auscultation. Breath sounds equal bilaterally. GASTROINTESTINAL: Abdomen soft, non-tender, nondistended. MUSCULOSKELETAL: Contractures left upper extremity NEUROLOGICAL: Awake and alert. No obvious cranial nerve deficits. 2 out of 5 strength left upper extremity, 3 out of 5 strength left lower extremity PSYCHIATRIC: Appropriate mood and affect; insight and judgment normal. Data Data Last Documented VS Vital Signs Date Time Temp Pulse Resp B/P (MAP) Pulse Ox O2 Delivery O2 Flow Rate FiO2 10/07/16 13:27 98.9 86 16 93/65 (74) 99 MDM Medical Decision Making Medical Screen Exam Complete: Yes Emergency Medical Condition: Yes Differential Diagnosis Chronic pain Narrative Course This is a 56-year-old male who presents to the emergency department requesting pain medication. When he was in the hospital is being maintained on hydrocodone every 8 hours but he was not discharged on pain control. He also states that he did not receive a hemiwalker and he only received a wheelchair. I will forward this to the case management's attention but at this time there is little I can do about this and the weekend and he has a mobility device that he has access to. Patient will be discharged back to his [facility] Diagnosis Primary Impression: Chronic back pain Qualified Codes: M54.5 - Low back pain; G89.29 - Other chronic pain Patient Instructions: General Instructions Additional Instructions: If you develop weakness of your legs, difficulty walking, numbness of your legs or your genital or rectal area, loss of your bowel or bladder, or difficulty urinating return to the emergency department immediately. Followup with your primary care physician in one week if your symptoms have not improved. Med/Other Pt SpecificInfo: Prescription(s) given Scripts Hydrocodone-Acetaminophen (Hydrocodone-Acetaminophen) 5-325 mg Tab 1 TAB PO Q8HR Y for PAIN, #20 TAB 0 Refills Prov: Nayely Camargo MD 10/07/16 Disposition: 01 DISCHARGE HOME Condition: Stable Nayely Camargo MD Oct 07, 2016 14:23
[2016-10-27] MEDS ORDERED: LISI10TA3 PO ×2 (11:26→11:33)
[2016-10-27] MEDS ORDERED: CARV3.125 PO (11:33)
[2016-10-27] MEDS ORDERED: ASPI-99 PO (11:33)
[2016-10-27] MEDS ORDERED: ATOR20TA15 PO (11:33)
[2016-10-27] MEDS ORDERED: FURO20TA PO (11:33)
[2016-10-27] MEDS ORDERED: FERR325T20 PO (11:33)
== END 2016-10-07 16:00 | disposition home or self-care (01) ==
LOC: PHED 13:04
DX: M54.5 Low back pain (principal); G89.29 Other chronic pain; I10 Essential (primary) hypertension; E78.00 Pure hypercholesterolemia, unspecified; F17.200 Nicotine dependence, unspecified, uncomplicated; Z79.01 Long term (current) use of anticoagulants; Z87.39 Personal history of other diseases of the musculoskeletal system and connective tissue; Z87.09 Personal history of other diseases of the respiratory system; Z86.59 Personal history of other mental and behavioral disorders; Z86.79 Personal history of other diseases of the circulatory system; Z86.69 Personal history of other diseases of the nervous system and sense organs
CPT/HCPCS: 99283

== ENCOUNTER 2016-10-07 18:07 | Emergency (ER) | payer OTHER ==
[~2016-10-07] VITALS: Ht 177.8 cm; Wt 55.0 kg
[~2016-10-07 18:07] MED LIST changes: +HYDR-3516 PO
[2016-10-07 18:12] VITALS: BP 121/78; PULSE 93; RESP 15; TEMP 98.1; O2SAT 99
--- NOTE | 2016-10-07 19:03 | PD ---
HPI Chief Complaint: Back/ Neck Pain or Injury Time Seen by Provider: 18:22 Travel History International Travel<30 days: No Contact w/Intl Traveler<30days: No Traveled to known affect area: No History of Present Illness HPI 56-year-old male came to the emergency room with history of lower back pain. Patient was seen earlier today for the same complaint at [place] emergency room. Patient was discharged home with a hydrocodone prescription. He was taken back to the assisted living facility and dropped off. However patient says that he did not have any money to stay in the assisted living facility any longer. Also that they took his prescription and did not give it back to him. He seems frustrated. Patient is well-known to the department for multiple visits. He has significant vascular neuropathic condition. He says he is homeless. His vital signs are entirely stable. [facility] Past Medical History Narrative Medical List of his past medical, surgical, social and family history is reviewed from the nursing note. Hx Anticoagulant Therapy: Yes (unknown) Arthritis: Yes Asthma: Yes Autoimmune Disease: No Blood Disorders: No Anxiety: Yes Depression: Yes Heart Rhythm Problems: No Cancer: No Cardiovascular Problems: Yes High Cholesterol: Yes Congestive Heart Failure: Yes COPD: Yes Cerebrovascular Accident: Yes Diabetes: No Diminished Hearing: No Endocrine: No Gastrointestinal Disorders: No Genitourinary: No Hypertension: Yes Immune Disorder: No Implanted Vascular Access Dvce: Yes Musculoskeletal: Yes (rt ankle surgery /hardware) Neurologic: Yes (stroke w lt sided defecit) Psychiatric: Yes Reproductive: No Respiratory: Yes Immunizations Current: No Thyroid Disease: No Past Surgical History Abdominal Surgery: No Body Medical Devices: HARDWARE RT ANKLE Cardiac Surgery: No Ear Surgery: No Endocrine Surgery: No Eye Surgery: Yes (detached retina right eye) Genitourinary Surgery: No Gynecologic Surgery: No Neurologic Surgery: No Oral Surgery: No Thoracic Surgery: Yes (right lung chest tube ) Other Surgery: Yes (RIGHT ANKLE, 8 SCREWS AND PLATE) Social History Alcohol Use: No Tobacco Use: Yes (1 PPD) Substance Use: No Allergies-Medications (Allergen,Severity, Reaction): Coded Allergies: No Known Allergies (Verified , 10/07/16) Comments No known drug allergies. Reported Meds & Prescriptions Reported Meds & Active Scripts Active Hydrocodone-Acetaminophen 5-325 mg Tab 1 Tab PO Q8HR PRN Ferosul (Ferrous Sulfate) 325 Mg (65 Mg Iron) Tablet 325 Mg PO BID@ Lisinopril 5 Mg Tab 2.5 Mg PO DAILY 30 Days Wheelchair Elevated Leg (Device) 1 Mis Mis Ea .ROUTE DIRECTED Adult Aspirin EC Low Strength (Aspirin) 81 Mg Tabec 81 Mg PO DAILY Atorvastatin (Atorvastatin Calcium) 20 Mg Tab 20 Mg PO HS Coreg (Carvedilol) 3.125 Mg Tab 3.125 Mg PO Q12HR Furosemide 20 Mg Tab 20 Mg PO BID@18 Narrative Medication List of his home medications reviewed from the nursing note. Review of Systems Except as stated in HPI: all other systems reviewed are Neg Physical Exam Narrative GENERAL: Awake, alert, emaciated, disheveled, anxious but no significant distress SKIN: Focused skin assessment warm/dry. HEAD: Atraumatic. Normocephalic. EYES: Pupils equal and round. No scleral icterus. No injection or drainage. ENT: No nasal bleeding or discharge. Mucous membranes pink and moist. NECK: Trachea midline. No JVD. CARDIOVASCULAR: Regular rate and rhythm. No murmur appreciated. RESPIRATORY: No accessory muscle use. Clear to auscultation. Breath sounds equal bilaterally. GASTROINTESTINAL: Abdomen soft, non-tender, nondistended. Hepatic and splenic margins not palpable. MUSCULOSKELETAL: No obvious deformities. No clubbing. No cyanosis. No edema. NEUROLOGICAL: Awake and alert. No obvious cranial nerve deficits. Motor grossly within normal limits. Normal speech. PSYCHIATRIC: Appropriate mood and affect; insight and judgment normal. Data Data Last Documented VS Vital Signs Date Time Temp Pulse Resp B/P (MAP) Pulse Ox O2 Delivery O2 Flow Rate FiO2 10/07/16 19:48 10/07/16 18:12 98.1 93 15 99 [facility] Medical Decision Making Medical Screen Exam Complete: Yes Emergency Medical Condition: Yes Medical Record Reviewed: Yes Differential Diagnosis Chronic pain, homelessness Narrative Course 7:01 PM at this point I'm going to discharge him home since I don't know what else I can do. He had a prescription from his previous visit for the hydrocodone and I'm not sure what happened to it. Patient cannot give me any kind of constructive history regarding that. We tried calling [facility] and did not get much help. Procedures EKG Prior to Arrival: No Diagnosis Primary Impression: Chronic back pain Qualified Codes: M54.9 - Dorsalgia, unspecified; G89.29 - Other chronic pain Additional Impression: Homelessness Disposition: 01 DISCHARGE HOME Condition: Stable Darcy Villalpando MD Oct 07, 2016 19:03
[2016-10-27] MEDS ORDERED: LISI10TA3 PO ×2 (11:26→11:33)
[2016-10-27] MEDS ORDERED: ATOR20TA15 PO (11:33)
[2016-10-27] MEDS ORDERED: FERR325T20 PO (11:33)
[2016-10-27] MEDS ORDERED: FURO20TA PO (11:33)
[2016-10-27] MEDS ORDERED: ASPI-99 PO (11:33)
[2016-10-27] MEDS ORDERED: CARV3.125 PO (11:33)
== END 2016-10-07 20:13 | disposition home or self-care (01) ==
LOC: NEPD 18:07
DX: M54.5 Low back pain (principal); G89.29 Other chronic pain; F17.200 Nicotine dependence, unspecified, uncomplicated; Z59.0 Homelessness
CPT/HCPCS: 99282

== ENCOUNTER 2016-10-08 12:57 | Emergency (ER) | payer SELFPAY ==
[~2016-10-08] VITALS: Ht 177.8 cm; Wt 52.0 kg
[~2016-10-08 12:57] MED LIST changes: -WALKER/FOLDING1 MIS
[2016-10-08 13:03] VITALS: BP 140/81; PULSE 75; RESP 20; TEMP 98.3; O2SAT 99
--- NOTE | 2016-10-08 13:34 | PD ---
HPI Chief Complaint: Pain: Acute or Chronic Time Seen by Provider: 13:07 Travel History International Travel<30 days: No Contact w/Intl Traveler<30days: No Traveled to known affect area: No History of Present Illness HPI Patient comes back to the emergency department complaining of continued back pain. Patient seen in ER twice for this yesterday and given a prescription of hydrocodone. Patient states he took his pain medication last night and went to sleep however he continues to have back pain. Patient denies any new symptoms. Denies any change in the back pain. Denies any chest pain, shortness of breath, fevers, dizziness, change in vision, abdominal pain, loss change in bowel or bladder, new numbness or tingling anywhere, trauma, or history of IV drug abuse. Patient states he has not been able to follow-up with anyone yet because it's the weekend. Patient states his back continues to hurt secondary to the way he has to use his wheelchair. Patient denies any other medical complaints. History Past Medical Histgory Hx Cancer: No Social History Alcohol Use: No Tobacco Use: Yes (1 PPD) Allergies-Medications (Allergen,Severity, Reaction): Coded Allergies: No Known Allergies (Verified , 10/07/16) Reported Meds & Prescriptions Reported Meds & Active Scripts Active Hydrocodone-Acetaminophen 5-325 mg Tab 1 Tab PO Q8HR PRN Ferosul (Ferrous Sulfate) 325 Mg (65 Mg Iron) Tablet 325 Mg PO BID@,17 Lisinopril 5 Mg Tab 2.5 Mg PO DAILY 30 Days Wheelchair Elevated Leg (Device) 1 Mis Mis Ea .ROUTE DIRECTED Adult Aspirin EC Low Strength (Aspirin) 81 Mg Tabec 81 Mg PO DAILY Atorvastatin (Atorvastatin Calcium) 20 Mg Tab 20 Mg PO HS Coreg (Carvedilol) 3.125 Mg Tab 3.125 Mg PO Q12HR Furosemide 20 Mg Tab 20 Mg PO BID@09,18 Review of Systems Except as stated in HPI: all other systems reviewed are Neg Physical Exam Narrative GENERAL: Well-developed, under nourished, in no acute distress, and non-ill appearing. SKIN: Focused skin assessment warm and dry. HEAD: Atraumatic. Normocephalic. EYES: Pupils equal and round. EOMI. No scleral icterus. No injection or drainage. ENT: No nasal bleeding or discharge. Mucous membranes pink and moist. NECK: Trachea midline. Supple. No nuclear rigidity. CARDIOVASCULAR: Regular rate and rhythm. No murmur appreciated. RESPIRATORY: No accessory muscle use. No respiratory distress. GASTROINTESTINAL: Abdomen soft, non-tender, nondistended, and no guarding. Hepatic and splenic margins not palpable. No pulsatile mass. MUSCULOSKELETAL: No obvious deformities. No clubbing. No cyanosis. No edema. Decreased range of motion on the left that patient reports is chronic. NEUROLOGICAL: Awake and alert. No obvious cranial nerve deficits. Normal speech. PSYCHIATRIC: Appropriate mood and affect; insight and judgment normal. Data Data Last Documented VS Vital Signs Date Time Temp Pulse Resp B/P (MAP) Pulse Ox O2 Delivery O2 Flow Rate FiO2 10/08/16 13:03 98.3 75 20 140/81 (100) 99 MDM Medical Screen Exam Complete: Yes Emergency Medical Condition: No Narrative Course History and physical exam findings are not consistent with an emergent medical condition. He was given the option of receiving additional care, but has declined. Therefore the appropriate counseling recommendations were discussed with the patient and he was instructed to follow-up with his primary care physician as soon as possible for reevaluation. Patient was also informed of community resources from which he can obtain additional care. He is agreeable and verbalizes an understanding of the proposed plan. The patient states he will immediately return to the emergency department if his current complaints do not improve, new symptoms arise, or emergent condition develops. Patient left the emergency department without difficulty through nonemergent transportation back to his [facility] Primary Impression: Encounter for medical screening examination Disposition: [facility]-ED USE ONLY Condition: Stable Gabo Brito Oct 08, 2016 13:34
[2016-10-27] MEDS ORDERED: LISI10TA3 PO ×2 (11:26→11:33)
[2016-10-27] MEDS ORDERED: FURO20TA PO (11:33)
[2016-10-27] MEDS ORDERED: CARV3.125 PO (11:33)
[2016-10-27] MEDS ORDERED: ASPI-99 PO (11:33)
[2016-10-27] MEDS ORDERED: FERR325T20 PO (11:33)
[2016-10-27] MEDS ORDERED: ATOR20TA15 PO (11:33)
== END 2016-10-08 16:25 | disposition left against medical advice (07) ==
LOC: NEPE 12:57
DX: M54.9 Dorsalgia, unspecified (principal)
CPT/HCPCS: 99281

== ENCOUNTER 2017-01-10 22:44 | Inpatient (IN) | payer MEDICAID ==
[~2017-01-10] VITALS: Ht 177.8 cm; Wt 56.0 kg
[~2017-01-10 22:44] MED LIST changes: -ASPI-99 PO; +ASPI1TAB56 PO; -LISI-519 PO; +LISI10TA3 PO
[2017-01-10 22:58] VITALS: BP 112/56; PULSE 67; RESP 20; TEMP 98.5; O2SAT 100
--- NOTE | 2017-01-10 23:10 | PD ---
HPI Chief Complaint: Pain: Acute or Chronic Time Seen by Provider: 11:00 Travel History International Travel<30 days: No Contact w/Intl Traveler<30days: No Traveled to known affect area: No History of Present Illness HPI 56-year-old male presents for evaluation of left heel wound. He has a history of stroke with left-sided deficit. He reports that it initially started as a blister and pressure wound on the left heel several months ago. It never completely healed. Over the past week he has been having pain associated with it. He reports that he felt some moisture around the wounds today and this is what prompted evaluation. He denies fevers or chills. He has no other complaints. PFSH Past Medical History Hx Anticoagulant Therapy: Yes (unknown) Arthritis: Yes Asthma: Yes Autoimmune Disease: No Blood Disorders: No Anxiety: Yes Depression: Yes Heart Rhythm Problems: No Cancer: No Cardiovascular Problems: Yes High Cholesterol: Yes Congestive Heart Failure: Yes COPD: Yes Cerebrovascular Accident: Yes Diabetes: No Diminished Hearing: No Endocrine: No Gastrointestinal Disorders: No Genitourinary: No Hypertension: Yes Immune Disorder: No Implanted Vascular Access Dvce: Yes Musculoskeletal: Yes (rt ankle surgery /hardware) Neurologic: Yes (stroke w lt sided defecit) Psychiatric: Yes Reproductive: No Respiratory: Yes Immunizations Current: No Thyroid Disease: No Tetanus Vaccination: < 5 Years Influenza Vaccination: Yes Past Surgical History Abdominal Surgery: No Body Medical Devices: HARDWARE RT ANKLE Cardiac Surgery: No Ear Surgery: No Endocrine Surgery: No Eye Surgery: Yes (detached retina right eye) Genitourinary Surgery: No Gynecologic Surgery: No Neurologic Surgery: No Oral Surgery: No Thoracic Surgery: Yes (right lung chest tube ) Other Surgery: Yes (RIGHT ANKLE, 8 SCREWS AND PLATE) Social History Alcohol Use: No Tobacco Use: Yes (1 PPD) Substance Use: No Allergies-Medications (Allergen,Severity, Reaction): Coded Allergies: No Known Allergies (Verified , 10/27/16) Reported Meds & Prescriptions Reported Meds & Active Scripts Active Lisinopril 10 Mg Tab 10 Mg PO DAILY Ferosul (Ferrous Sulfate) 325 Mg (65 Mg Iron) Tablet 325 Mg PO BID@ Adult Aspirin EC Low Strength (Aspirin) 81 Mg Tabec 81 Mg PO DAILY Atorvastatin (Atorvastatin Calcium) 20 Mg Tab 20 Mg PO HS Coreg (Carvedilol) 3.125 Mg Tab 3.125 Mg PO Q12HR Furosemide 20 Mg Tab 20 Mg PO BID@,18 Hydrocodone-Acetaminophen 5-325 mg Tab 1 Tab PO Q8HR PRN Wheelchair Elevated Leg (Device) 1 Mis Mis Ea .ROUTE DIRECTED Review of Systems Except as stated in HPI: all other systems reviewed are Neg Physical Exam Narrative GENERAL: Well-developed well-nourished male in no acute distress SKIN: Warm and dry. There is a 3 cm pressure ulceration on the left heel which appears to be stage III. There is some foul smell associated with it. There is tenderness to palpation. No surrounding erythema. HEAD: Atraumatic. Normocephalic. EYES: Pupils equal and round. No scleral icterus. No injection or drainage. ENT: No nasal bleeding or discharge. Mucous membranes pink and moist. NECK: Trachea midline. No JVD. CARDIOVASCULAR: Regular rate and rhythm. No murmur appreciated. RESPIRATORY: No accessory muscle use. Clear to auscultation. Breath sounds equal bilaterally. GASTROINTESTINAL: Abdomen soft, non-tender, nondistended. Hepatic and splenic margins not palpable. MUSCULOSKELETAL: Some contracturing of the left leg is noted. Skin as noted above. NEUROLOGICAL: Awake and alert. No obvious cranial nerve deficits. Motor grossly within normal limits. Normal speech. Data Data Last Documented VS Vital Signs Date Time Temp Pulse Resp B/P (MAP) Pulse Ox O2 Delivery O2 Flow Rate FiO2 01/10/17 22:58 98.5 67 20 112/56 (74) 100 Orders Orders Foot, Heel Only ([id number]) (01/10/17 ) Complete Blood Count With Diff (01/10/17 23:08) Basic Metabolic Panel (Bmp) (01/10/17 23:08) Westergren Sedimentation Rate (01/10/17 23:08) Type And Screen (01/11/17 00:20) Red Blood Cells (Rbc) (01/11/17 00:24) Blood Product Administration (01/11/17 00:24) Sodium Chlor 0.9% 250 Ml Inj (Ns 250 Ml (01/11/17 00:30) Sodium Chloride 0.9... W/Pantoprazole In (01/11/17 00:24) Sodium Chlor 0.9% 1000 Ml Inj (Ns 1000 M (01/11/17 00:24) Vancomycin Inj (Vancomycin Inj) (01/11/17 00:30) Piperacil-Tazo 3.375 Gm Premix (Zosyn 3. (01/11/17 00:30) Wound Culture And Gram Stain (01/11/17 00:24) Admit Order (Ed Use Only) (01/11/17 01:04) Admit To Inpatient (01/11/17 ) Vital Signs (Adult) Q4H (01/11/17 01:05) Activity Oob With Assistance (01/11/17 01:05) Roving Inspector / Telemetry .CONTINUOUS (01/11/17 01:05) Diet Heart Healthy (01/11/17 Breakfast) Sodium Chloride 0.9% Flush (Ns Flush) (01/11/17 01:15) Sodium Chloride 0.9% Flush (Ns Flush) (01/11/17 09:00) Basic Metabolic Panel (Bmp) (01/12/17 06:00) Complete Blood Count With Diff (01/12/17 06:00) Pt Request For Service (01/11/17 01:05) Case Management Consult (01/11/17 01:05) Naloxone Inj (Narcan Inj) (01/11/17 01:15) Inpatient Certification (01/11/17 ) Consult Wound / Ostomy Nurse (01/11/17 ) Consult Podiatry (01/11/17 ) Consult Gastroenterology (01/11/17 ) Vancomycin Consult Pharmacy (Vancomycin (01/11/17 01:15) Piperacil-Tazo 4.5 Gm Premix (Zosyn 4.5 (01/11/17 01:15) Labs Laboratory Tests Test 01/10/17 23:18 White Blood Count 10.0 TH/MM3 Red Blood Count 2.20 MIL/MM3 Hemoglobin 7.6 GM/DL Hematocrit 22.5 % Mean Corpuscular Volume 101.9 FL Mean Corpuscular Hemoglobin 34.6 PG Mean Corpuscular Hemoglobin Concent 33.9 % Red Cell Distribution Width 15.5 % Platelet Count 414 TH/MM3 Mean Platelet Volume 7.9 FL Neutrophils (%) (Auto) 68.6 % Lymphocytes (%) (Auto) 18.4 % Monocytes (%) (Auto) 7.5 % Eosinophils (%) (Auto) 4.3 % Basophils (%) (Auto) 1.2 % Neutrophils # (Auto) 6.8 TH/MM3 Lymphocytes # (Auto) 1.8 TH/MM3 Monocytes # (Auto) 0.7 TH/MM3 Eosinophils # (Auto) 0.4 TH/MM3 Basophils # (Auto) 0.1 TH/MM3 CBC Comment DIFF FINAL Differential Comment Erythrocyte Sedimentation Rate 76 mm/hr Blood Urea Nitrogen 34 MG/DL Creatinine 1.71 MG/DL Random Glucose 93 MG/DL Calcium Level 8.6 MG/DL Sodium Level 140 MEQ/L Potassium Level 3.9 MEQ/L Chloride Level 103 MEQ/L Carbon Dioxide Level 30.3 MEQ/L Anion Gap 7 MEQ/L Estimat Glomerular Filtration Rate 42 ML/MIN MDM Medical Decision Making Medical Screen Exam Complete: Yes Emergency Medical Condition: Yes Medical Record Reviewed: Yes Differential Diagnosis Chronic pressure ulcer versus osteomyelitis versus cellulitis Narrative Course Lab work is been reviewed. His hemoglobin is 7.6. He notes that his stools have been dark lately. A rectal examination was performed revealing melena, Hemoccult-positive. The patient will be given 1 unit of packed red blood cells. Protonix have been ordered. He is on aspirin. His ESR 76. Certainly osteomyelitis of the foot needs to be ruled out. The patient will be admitted. Vancomycin and Zosyn have been ordered. Diagnosis Primary Impression: Pressure ulcer of left foot Additional Impression: GI bleed Admitting Information Admitting Physician Requests: Admit Marcelo Love Jan 10, 2017 23:10
[2017-01-10 23:46] LABS: AUTOMATED NEUTROPHIL # 6.8 TH/MM3 (1.8-7.7); BASOPHIL # 0.1 TH/MM3 (0-0.2); BASOPHIL % 1.2 % (0.0-2.0); EOSINOPHIL # 0.4 TH/MM3 (0-0.4); EOSINOPHIL % 4.3 % (0.0-4.0); HEMATOCRIT 22.5 % (39.0-51.0); HEMO FLAGS DIFF FINAL; LYMPH % 18.4 % (9.0-44.0); LYMPHOCYTE # 1.8 TH/MM3 (1.0-4.8); MEAN CELL VOLUME 101.9 FL (80.0-100.0); MEAN CORPUSCULAR HEMOGLOBIN 34.6 PG (27.0-34.0); MEAN CORPUSCULAR HGB CONC 33.9 % (32.0-36.0); MONO % 7.5 % (0.0-8.0); NEUT % 68.6 % (16.0-70.0); PLATELET COUNT 414 TH/MM3 (150-450); RED CELL DISTRIBUTION WIDTH 15.5 % (11.6-17.2)
[2017-01-11] VITALS (8 sets, daily range): BP systolic 99–190; BP diastolic 62–83; PULSE 64–98; RESP 16–20; TEMP 97.6–98.7; O2SAT 95–100
[2017-01-11] MEDS ORDERED: PANTOPRAZOLE INJ 80 MG in SODIUM CHLORIDE 0.9% INJ 35 ML IV ONE (00:24)
[2017-01-11] MEDS ORDERED: SODIUM CHLOR 0.9% 1000 ML INJ 1,000 ML IV SCH (00:24)
[2017-01-11 00:29] LABS: BICARBONATE 30.3 MEQ/L (21.0-32.0); POTASSIUM 3.9 MEQ/L (3.5-5.1)
[2017-01-11] MEDS ORDERED: SODIUM CHLOR 0.9% 250 ML INJ 250 ML IV ONE (00:30)
[2017-01-11] MEDS ORDERED: VANCOMYCIN INJ 1,000 MG in SODIUM CHLOR 0.9% 250 ML INJ 250 ML IV ONE (00:30)
[2017-01-11] MEDS ORDERED: PIPERACIL-TAZO 3.375 GM PREMIX 50 ML IV ONE (00:30)
--- NOTE | 2017-01-11 00:45 | RADRPT ---
EXAM DATE/TIME: 01/10/2017 23:58 [facility] COMPARISON: No previous studies available for comparison. INDICATIONS : Left heel pain. Open sore. MEDICAL HISTORY : Venous insufficiency. Congestive heart failure. Hypercholesterolemia. Hypertension. Osteoarthri tis. Arthritis. Cerebrovascular accident. COPD. SURGICAL HISTORY : Right ankle. ENCOUNTER: Initial ACUITY: 1 day PAIN SCORE: 9/10 LOCATION: Left heel. FINDINGS: Two view examination of the left heel demonstrates the trabecula to be intact with no evidence of fra cture. There is a normal calcaneal angle. There is mild soft tissue prominence of the calcaneus.. CONCLUSION: Mild soft tissue prominence with no underlying bony abnormality. Morales Miller MD on January 11, 2017 at 0:43 Board Certified Radiologist. This report was verified electronically.
[2017-01-11] MEDS ORDERED: NALOXONE HCL 0.4 MG/ML AMP IV PUSH PRN (01:15)
[2017-01-11] MEDS ORDERED: Vancomycin Consult Pharmacy 1 EA OTHER SCH (01:15)
[2017-01-11] MEDS ORDERED: SODIUM CHLORIDE 0.9% FLUSH 10 ML FLUSH IV FLUSH PRN (01:15)
[2017-01-11] MEDS: PIPERACIL-TAZO 4.5 GM PREMIX 100 ML IV SCH ×3 (08:08→20:35)
[2017-01-11] MEDS: SODIUM CHLORIDE 0.9% FLUSH 10 ML FLUSH IV FLUSH SCH ×2 (08:09→20:36)
--- NOTE | 2017-01-11 09:36 | PD.CONS ---
HPI History of Present Illness This is a 56 year old male with hx CVA with left side deficit who presented with a left heel wound. Denies james blood in stool, black tarry stool. Per EMR he was found to have melanotic stool and guiac pos. He takes iron pills. Denies hx GIB, gastric ulcers. He was seen by us in August for melena and anemia and had EGD 08/27/16 which found esophagitis, no bleeding. No frequent NSAID use , does not know if he is on any blood thinners. Never had colonoscopy (Wendy Lal) PFSH Past Medical History CVA with left sided deficit JARED esophagitis Past Surgical History right foot surgery right eye surgery (Wendy Lal) Coded Allergies: No Known Allergies (Verified Allergy, Unknown, 01/11/17) Family History colon ca DM Social History denies ETOH but per EMR there is hx of this smokes 1ppd denies illicit drug use (Wendy Lal) Review of Systems Constitutional: DENIES: Fever Eyes: DENIES: Blurred vision Ears, nose, mouth, throat: DENIES: Hearing loss Respiratory: DENIES: Hemoptysis Gastrointestinal: COMPLAINS OF: Diarrhea, DENIES: Abdominal pain, Black stools , Bloody stools, Constipation, Nausea, Vomiting, Hematemesis Genitourinary: DENIES: Urinary incontinence Musculoskeletal: DENIES: Joint Swelling Integumentary: DENIES: Pruritus Hematologic/lymphatic: DENIES: Bruising Neurologic: COMPLAINS OF: Abnormal gait, Localized weakness Psychiatric: DENIES: Confusion (Wendy Lal) GI Exam Vitals I&O Vital Signs Date Time Temp Pulse Resp B/P (MAP) Pulse Ox O2 Delivery O2 Flow Rate FiO2 01/11/17 07:03 98.4 72 16 99/62 (74) 99 01/11/17 06:02 73 18 134/63 (86) 97 01/11/17 03:46 98.7 98 20 157/66 98 01/11/17 03:33 98.7 94 20 156/69 100 01/10/17 22:58 98.5 67 20 112/56 (74) 100 I/O 01/10/17 01/10/17 01/10/17 01/11/17 01/11/17 01/11/17 07:00 15:00 23:00 07:00 15:00 23:00 Intake Total 1885 ml Output Total 200 ml Balance 1685 ml Intake IV Total 1335 ml Packed Cells 400 ml Blood Product IV Normal Saline Flush 150 ml Output Urine Total 200 ml # Voids 1 Imaging Last Impressions Foot X-Ray 01/10/17 0000 Signed Impressions: Service Date/Time: Tuesday, January 10, 2017 23:58 - CONCLUSION: Mild soft tissue prominence with no underlying bony abnormality. Morales Miller MD Laboratory Test 01/10/17 23:18 White Blood Count 10.0 TH/MM3 Red Blood Count 2.20 MIL/MM3 Hemoglobin 7.6 GM/DL Hematocrit 22.5 % Mean Corpuscular Volume 101.9 FL Mean Corpuscular Hemoglobin 34.6 PG Mean Corpuscular Hemoglobin Concent 33.9 % Red Cell Distribution Width 15.5 % Platelet Count 414 TH/MM3 Mean Platelet Volume 7.9 FL Neutrophils (%) (Auto) 68.6 % Lymphocytes (%) (Auto) 18.4 % Monocytes (%) (Auto) 7.5 % Eosinophils (%) (Auto) 4.3 % Basophils (%) (Auto) 1.2 % Neutrophils # (Auto) 6.8 TH/MM3 Lymphocytes # (Auto) 1.8 TH/MM3 Monocytes # (Auto) 0.7 TH/MM3 Eosinophils # (Auto) 0.4 TH/MM3 Basophils # (Auto) 0.1 TH/MM3 CBC Comment DIFF FINAL Differential Comment Erythrocyte Sedimentation Rate 76 mm/hr Blood Urea Nitrogen 34 MG/DL Creatinine 1.71 MG/DL Random Glucose 93 MG/DL Calcium Level 8.6 MG/DL Sodium Level 140 MEQ/L Potassium Level 3.9 MEQ/L Chloride Level 103 MEQ/L Carbon Dioxide Level 30.3 MEQ/L Anion Gap 7 MEQ/L Estimat Glomerular Filtration Rate 42 ML/MIN Date/Time Source Procedure Growth Status 01/11/17 00:38 Wound Foot Gram Stain Pending Received 01/11/17 00:38 Wound Foot Wound Culture Pending Received Physical Examination HEENT: PERRL; normocephalic; atraumatic; no jaundice. CHEST: diminished CARDIAC: irr HR, + murmur ABDOMEN: Soft, nondistended, nontender; no hepatosplenomegaly; bowel sounds are present in all four quadrants. EXTREMITIES: No clubbing, cyanosis, or edema. atrophied SKIN: Normal; no rash; no jaundice. BUS MATRON: No focal deficits; alert and oriented times three. (Wendy Lal) Assessment and Plan Plan ASSESSMENT - anemia, guiac pos stool, ?melena - hgb 7.6 on admission, macrocytic. melanotic stool noted in ER report, quiac pos. pt takes iron, hx JARED. had episode melena and anemia in August with EGD 08/27 that found esophagitis but no bleeding. Never had colonoscopy PLAN - EGD/colonoscopy in am - obtain consent - clears today - NPO after midnight - GoLytely prep - monitor HH - transfuse for hgb < 8 This pt seen by myself and Dr Ospina and this note is written on his behalf (Wendy Lal) Physician Comments Seen and examined with [employer] SP[employer]ER, no active bleeding currently. Egd/colonoscopy planned for tomorrow. Thank you (Jannet Ospina MD) Wendy Lal Jan 11, 2017 09:36 Jannet Ospina MD Jan 11, 2017 13:37
--- NOTE | 2017-01-11 10:09 | HHI.HP ---
[facility] Primary [facility] Physician Unknown Admission Diagnosis left heel ulcer, rule out osteomyelitis, GI bleed Diagnoses: Chief Complaint: chronic left heel pain Travel History International Travel<30 Days: No Contact w/Intl Traveler <30 Da: No Traveled to Known Affected Are: No History of Present Illness 56 y/o M with hx of CVA left sided deficit who present with chronic left heel pain. He is AAO 4. Patient is a poor historian and did not want to participate in the interview. He stated he had the left heel pain when the wound started. Patient stable started in July. I asked if the pain gotten worse. He did not respond. Patient remains afebrile. Patient asking for pain medication. He complains of intermittent in muscle spasms of his left lower extremities since the stroke happened. Denied any GI bleed including vomiting blood or blood in stool. He stated that his bowel movements are normal. Patient lives in [facility] and baseline is in a wheelchair. All other review of system reviewed and negative. Past Family Social History Past Medical History CVA with left sided deficit JARED esophagitis Past Surgical History right foot surgery right eye surgery Reported Medications Lisinopril 10 Mg Tab 10 Mg PO DAILY Ferosul (Ferrous Sulfate) 325 Mg (65 Mg Iron) Tablet 325 Mg PO BID@,17 Adult Aspirin EC Low Strength (Aspirin) 81 Mg Tabec 81 Mg PO DAILY Atorvastatin (Atorvastatin Calcium) 20 Mg Tab 20 Mg PO HS Coreg (Carvedilol) 3.125 Mg Tab 3.125 Mg PO Q12HR Furosemide 20 Mg Tab 20 Mg PO BID@,18 Hydrocodone-Acetaminophen 5-325 mg Tab 1 Tab PO Q8HR PRN Wheelchair Elevated Leg (Device) 1 Mis Mis Ea .ROUTE DIRECTED Allergies: Coded Allergies: No Known Allergies (Verified Allergy, Unknown, 01/11/17) Active Ordered Medications Current Medications Sodium Chloride 250 ml @ 15 mls/hr ONCE ONCE IV Last administered on t 03:50; Start 01/11/17 at 00:30; Stop 01/11/17 at 17:09 Pantoprazole Sodium 80 mg/ Sodium Chloride 35 ml @ 420 mls/hr Q5M ONCE IV Last administered on 01/11/17 00:49; Start 01/11/17 at 00:24; Stop 01/11/17 at 00:28; Status DC Sodium Chloride 1,000 ml @ 1,000 mls/hr Q1H IV Last administered on 01/11/17 00:49; Start 01/11/17 at 00:24; Stop 01/11/17 at 01:23; Status DC Vancomycin HCl 1000 mg/Sodium Chloride 250 ml @ 250 mls/hr ONCE ONCE IV Last administered on 01/11/17 00:49; Start 01/11/17 at 00:30; Stop 01/11/17 at 01:29 ; Status DC Piperacillin Sod/ Tazobactam Sod 50 ml @ 100 mls/hr ONCE ONCE IV Last administered on 01/11/17 00:49; Start 01/11/17 at 00:30; Stop 01/11/17 at 00:59 ; Status DC Sodium Chloride (NS Flush) 2 ml UNSCH PRN IV FLUSH FLUSH AFTER USING IV ACCESS ; Start 01/11/17 at 01:15 Sodium Chloride (NS Flush) 2 ml BID IV FLUSH Last administered on 01/11/17 08: 09; Start 01/11/17 at 09:00 Naloxone HCl (Narcan Inj) 0.4 mg UNSCH PRN IV PUSH SEE LABEL COMMENTS; Start 01/11/17 at 01:15 Pharmacy Profile Note 0 ml @ 0 mls/hr UNSCH OTHER ; Start 01/11/17 at 01:15 Piperacillin Sod/ Tazobactam Sod 100 ml @ 200 mls/hr Q6H IV Last administered on 01/11/17 08:08; Start 01/11/17 at 08:00 Influenza Virus Vaccine (Flu (Quadrivalent) Vaccine Inj) 0.5 ml ONCE ONCE IM ; Start 01/12/17 at 10:00; Stop 01/12/17 at 10:01 Polyethylene Glycol/ Electrolytes (Colyte Liq) 4,000 ml ONCE ONCE PO ; Start 01/11/17 at 16:00; Stop 01/11/17 at 16:01 Family History Patient a family history of colon cancer and diabetes. Social History denies ETOH but per EMR there is hx of this smokes 1ppd denies illicit drug use He lives and a [facility] and baseline is he is mobile with a wheelchair. Physical Exam Vital Signs Vital Signs Date Time Temp Pulse Resp B/P (MAP) Pulse Ox O2 Delivery O2 Flow Rate FiO2 01/11/17 07:03 98.4 72 16 99/62 (74) 99 01/11/17 06:02 73 18 134/63 (86) 97 01/11/17 03:46 98.7 98 20 157/66 98 01/11/17 03:33 98.7 94 20 156/69 100 01/10/17 22:58 98.5 67 20 112/56 (74) 100 Physical Exam GENERAL: This is a thin male in no acute distress. SKIN: Left heel wound with eschar otherwise no erythema or discharge noted. HEAD: Atraumatic. Normocephalic. No temporal or scalp tenderness. EYES: Pupils equal round and reactive. Extraocular motions intact. No scleral icterus. No injection or drainage. ENT: Nose without bleeding, purulent drainage or septal hematoma. Throat without erythema, tonsillar hypertrophy or exudate. Uvula midline. Airway patent. NECK: Trachea midline. No JVD or lymphadenopathy. Supple, nontender, no meningeal signs. CARDIOVASCULAR: Regular rate and rhythm without murmurs, gallops, or rubs. RESPIRATORY: Clear to auscultation. Breath sounds equal bilaterally. No wheezes , rales, or rhonchi. GASTROINTESTINAL: Abdomen soft, non-tender, nondistended. No hepato-splenomegaly , or palpable masses. No guarding. MUSCULOSKELETAL: Extremities without clubbing, cyanosis, or edema. No joint tenderness, effusion, or edema noted. No calf tenderness. Negative Homans sign bilaterally. Positive muscle spasms of the left thigh muscle. Patient has significant muscle wasting of the lower extremity especially the left leg. NEUROLOGICAL: Awake and alert. Cranial nerves II through XII intact. Motor and sensory grossly within normal limits. Five out of 5 muscle strength in all muscle groups. Normal speech. Laboratory Laboratory Tests Test 01/10/17 23:18 White Blood Count 10.0 Red Blood Count 2.20 Hemoglobin 7.6 Hematocrit 22.5 Mean Corpuscular Volume 101.9 Mean Corpuscular Hemoglobin 34.6 Mean Corpuscular Hemoglobin Concent 33.9 Red Cell Distribution Width 15.5 Platelet Count 414 Mean Platelet Volume 7.9 Neutrophils (%) (Auto) 68.6 Lymphocytes (%) (Auto) 18.4 Monocytes (%) (Auto) 7.5 Eosinophils (%) (Auto) 4.3 Basophils (%) (Auto) 1.2 Neutrophils # (Auto) 6.8 Lymphocytes # (Auto) 1.8 Monocytes # (Auto) 0.7 Eosinophils # (Auto) 0.4 Basophils # (Auto) 0.1 CBC Comment DIFF FINAL Differential Comment Erythrocyte Sedimentation Rate 76 Blood Urea Nitrogen 34 Creatinine 1.71 Random Glucose 93 Calcium Level 8.6 Sodium Level 140 Potassium Level 3.9 Chloride Level 103 Carbon Dioxide Level 30.3 Anion Gap 7 Estimat Glomerular Filtration Rate 42 Date/Time Source Procedure Growth Status 01/11/17 00:38 Wound Foot Gram Stain Pending Received 01/11/17 00:38 Wound Foot Wound Culture Pending Received Result Diagram: 01/10/17 2318 01/10/17 2318 Imaging Last Impressions Foot X-Ray 01/10/17 0000 Signed Impressions: Service Date/Time: Tuesday, January 10, 2017 23:58 - CONCLUSION: Mild soft tissue prominence with no underlying bony abnormality. Morales Miller MD Capvandanai VTE Risk Assessment Caprini VTE Risk Assessment: Mod/High Risk (score >= 2) Caprini Risk Assessment Model Point Value = 1 Point Value = 2 Point Value = 3 Point Value = 5 Age 41-60 Minor surgery BMI > 25 kg/m2 Swollen legs Varicose veins or History of unexplained or recurrent spontaneous Oral contraceptives or hormone replacement Sepsis (< 1 month) Serious lung disease, including pneumonia (< 1 month) Abnormal pulmonary function Acute myocardial infarction Congestive heart failure (< 1 month) History of inflammatory bowel disease Medical patient at bed rest Age 61-74 Arthroscopic surgery Major open surgery (> 45 min) Laparoscopic surgery (> 45 min) Malignancy Confined to bed (> 72 hours) Immobilizing plaster cast Central venous access Age >= 75 History of VTE Family history of VTE Factor V Leiden Prothrombin [id number] Lupus anticoagulant Anticardiolipin antibodies Elevated serum homocysteine Heparin-induced thrombocytopenia Other congenital or acquired thrombophilia Stroke (< 1 month) Elective arthroplasty Hip, pelvis, or leg fracture Acute spinal cord injury (< 1 month) Prophylaxis Regimen Total Risk Factor Score Risk Level Prophylaxis Regimen 0-1 Low Early ambulation 2 Moderate Order ONE of the following: *Sequential Compression Device (SCD) *Heparin 5000 units SQ BID 3-4 Higher Order ONE of the following medications: *Heparin 5000 units SQ TID *Enoxaparin/Lovenox 40 mg SQ daily (WT < 150 kg, CrCl > 30 mL/min) *Enoxaparin/Lovenox 30 mg SQ daily (WT < 150 kg, CrCl > 10-29 mL/min) *Enoxaparin/Lovenox 30 mg SQ BID (WT < 150 kg, CrCl > 30 mL/min) AND/OR *Sequential Compression Device (SCD) 5 or more Highest Order ONE of the following medications: *Heparin 5000 units SQ TID (Preferred with Epidurals) *Enoxaparin/Lovenox 40 mg SQ daily (WT < 150 kg, CrCl > 30 mL/min) *Enoxaparin/Lovenox 30 mg SQ daily (WT < 150 kg, CrCl > 10-29 mL/min) *Enoxaparin/Lovenox 30 mg SQ BID (WT < 150 kg, CrCl > 30 mL/min) AND *Sequential Compression Device (SCD) Assessment and Plan Assessment and Plan 56-year-old male with history of CVA with left-sided deficit and tobacco dependence who presented with chronic left heel pain and possible GI bleed GI bleed -This was an incidental findings based on labs. Per ED provider patient had melanotic stools and positive guaiac. He is on iron supplement. -EGD on 08/27 that found esophagitis but no bleeding. -GI consulted. Patient scheduled for EGD and colonoscopy. -Patient transfuse with 1 unit packed red blood cells. No GI bleed noted so far during his hospitalization. Continue to monitor clinically for any bleeding. -Will get a posttransfusion H&H. Trend H&H. -Patient was given a bolus of Protonix yesterday. Will start Protonix 40 mg IV twice a day. Anemia -see workup as above. Chronic left heel wound -X-ray showed no signs of infection. No leukocytosis. Elevated sedimentation rate. -Will consult gas pumping station helper. -Patient was started on Zosyn and vancomycin. Continue her current regimen pending gas pumping station helper's recommendation. -Pain control as needed. Left-sided CVA -On aspirin but due to recent GI bleed will need to hold aspirin pending results from EGD and colonoscopy in clearance from GI. Hypertension -Resume home medication. Acute on chronic renal sufficiency -Mildly elevated due to dehydration. Elevated BUN. Patient's baseline seems to be around creatinine 1.5. At the moment creatinine is 1.71. Strict ins and outs. Avoid nephrotoxins. Continue to trend creatinine. DVT prophylaxis -Contraindicated secondary to ? active GI bleed. Discussed Condition With patient's nurse Physician Certification 2 Midnight Certification Type: Admission for Inpatient Services Order for Inpatient Services The services are ordered in accordance with Medicare regulations or non- Medicare payer requirements, as applicable. In the case of services not specified as inpatient-only, they are appropriately provided as inpatient services in accordance with the 2-midnight benchmark. Estimated LOS (days): 3 3 days is the estimated time the patient will need to remain in the hospital, assuming treatment plan goals are met and no additional complications. Post-Hospital Plan: Senior Living/Pallavi Servin MD Jan 11, 2017 10:09
[2017-01-11] MEDS: SODIUM CHLOR 0.9% 1000 ML INJ 1,000 ML IV SCH ×2 (10:15→20:35)
[2017-01-11] MEDS: PANTOPRAZOLE SODIUM 40 MG VIAL IV PUSH SCH (13:20)
[2017-01-11] MEDS: ACETAMINOPHEN/HYDROcodone 325 MG/5 MG TAB PO PRN ×2 (13:21→20:36)
[2017-01-11] MEDS: CYCLOBENZAPRINE HCL 10 MG TAB PO SCH ×2 (13:21→20:36)
[2017-01-11 15:56] LABS: HEMATOCRIT 25.3 % (39.0-51.0)
[2017-01-11] MEDS ORDERED: PEG (High)/E-LYTE SOLN 4000 ML BTL PO ONE (16:00)
[2017-01-11] MEDS ORDERED: SODIUM CHLORID 0.9% 500 ML IV PRN ×2 (22:15→23:45)
[2017-01-11] MEDS ORDERED: CHLORHEXIDINE GLUCONATE 2 % 1 PACK (2 CLOTHS) TOPICAL PRN (22:15)
[2017-01-11] MEDS ORDERED: LACTATED RINGER'S 1000 ML IV PRN ×2 (22:15→23:45)
[2017-01-11] MEDS ORDERED: METOPROLOL TARTRATE 25 MG TAB PO PRN (22:15)
[2017-01-11] MEDS ORDERED: POVIDONE IODINE 5% (ANTISEPSIS KIT) 4 APPLICATIONS EACH NARE PRN (22:15)
[2017-01-12] VITALS (7 sets, daily range): BP systolic 137–170; BP diastolic 61–85; PULSE 54–95; RESP 18–22; TEMP 95.8–97.9; O2SAT 94–99
[2017-01-12] MEDS: PANTOPRAZOLE SODIUM 40 MG VIAL IV PUSH SCH ×2 (01:12→12:00)
[2017-01-12] MEDS: PIPERACIL-TAZO 4.5 GM PREMIX 100 ML IV SCH ×2 (03:10→08:00)
[2017-01-12] MEDS: ACETAMINOPHEN/HYDROcodone 325 MG/5 MG TAB PO PRN (03:10)
[2017-01-12] MEDS: CYCLOBENZAPRINE HCL 10 MG TAB PO SCH ×2 (05:03→13:51)
[2017-01-12 08:14] LABS: BICARBONATE 25.7 MEQ/L (21.0-32.0); POTASSIUM 3.7 MEQ/L (3.5-5.1)
[2017-01-12 08:36] LABS: AUTOMATED NEUTROPHIL # 5.5 TH/MM3 (1.8-7.7); BASOPHIL # 0.1 TH/MM3 (0-0.2); BASOPHIL % 1.2 % (0.0-2.0); EOSINOPHIL # 0.5 TH/MM3 (0-0.4); EOSINOPHIL % 6.9 % (0.0-4.0); HEMATOCRIT 28.5 % (39.0-51.0); HEMO FLAGS DIFF FINAL; LYMPH % 15.1 % (9.0-44.0); LYMPHOCYTE # 1.2 TH/MM3 (1.0-4.8); MEAN CELL VOLUME 97.7 FL (80.0-100.0); MEAN CORPUSCULAR HEMOGLOBIN 32.7 PG (27.0-34.0); MEAN CORPUSCULAR HGB CONC 33.5 % (32.0-36.0); MONO % 6.7 % (0.0-8.0); NEUT % 70.1 % (16.0-70.0); PLATELET COUNT 292 TH/MM3 (150-450); RED BLOOD COUNT 2.92 MIL/MM3 (4.50-5.90); RED CELL DISTRIBUTION WIDTH 19.4 % (11.6-17.2); WHITE BLOOD COUNT 7.8 TH/MM3 (4.0-11.0)
--- NOTE | 2017-01-12 08:50 | MB ---
cc: GLORIA JOHNSTON DATE OF CONSULTATION 01/12/2017 CHIEF COMPLAINT Left heel ulceration. HISTORY OF PRESENT ILLNESS Mr. Martin is a 56-year-old patient with a history of left-sided stroke and a contracted left lower extremity who presented to the ER with chronic left heel pain. He was admitted for a bleeding ulcer, but initially came with a chief complaint of the heel pain. The patient states he was in constant pain. He says it has worsened over the last month or so. He is uncertain as to when the wound may have started. He states that he does not spend a prolonged period of time in bed, but he is primarily in a wheelchair with shoes on. PAST MEDICAL HISTORY Includes: 1. CVA 2. JARED 3. Esophagitis PAST SURGICAL HISTORY 1. Right foot surgery 2. Right eye surgery MEDICATIONS Please see list. ALLERGIES NO KNOWN DRUG ALLERGIES. SOCIAL HISTORY The patient lives in an [facility]. PHYSICAL EXAM VITAL SIGNS: Temperature is 97.9, T-max of 98.7, pulse 70, respiratory rate 21, blood pressure 142/61, pulse ox 99% O2 on room air. LABORATORY DATA White count is 10.0, hemoglobin 7.6, hematocrit 22.5, platelets 414. Sodium 140, potassium 3.7, chloride 109, carbon dioxide 25.7, BUN 18, glucose 77. Wound cultures are pending. X-RAYS Negative for any gas in the soft tissue or signs of osseous erosion. PHYSICAL EXAM The patient has diminished DP and PT pulses, cap refill time of less than 30 seconds. Gross sensation is intact, but diminished. Right foot is unremarkable. Left lower extremity is contracted at 90 degrees. There is a posterior heel full thickness eschar 1.5 cm x 1.5 cm with no exposed bone, but very minimal fat. No erythema, no drainage. No signs of infection. ASSESSMENT AND PLAN 1. Left posterior heel eschar - No signs of acute infection at this time. - No need for surgical intervention at this time. - Nurses orders for daily Betadine dressings to keep the area clean and dry. - The patient's biggest need at this point is Offloading. A soft air mattress was ordered. I also spoke to about occasionally not wearing shoes and if he has a safety strap on the foot piece of his wheelchair, perhaps removing that as it could be placing excessive pressure on the posterior aspect of the heel The patient is stable at this time. No need for surgical intervention, but I will continue to monitor him intermittently while in-house. Thank you for this consultation. Gloria MIRANDA /8:24 AM /8:32 AM SARA
[2017-01-12] MEDS: SODIUM CHLORIDE 0.9% FLUSH 10 ML FLUSH IV FLUSH SCH (09:00)
[2017-01-12] MEDS ORDERED: INFLUENZA VIRUS VACCINE (QUADRIVALENT) 0.5 ML SYR IM ONE (10:00)
--- NOTE | 2017-01-12 11:13 | GIPROC ---
[facility] [address] [facility]. [facility], [id number] EGD PROCEDURE REPORT EXAM DATE: 01/12/2017 PATIENT NAME: Joon Porter MR #: [id number] BIRTHDATE: 1960 ATTENDING: Jannet Ospina MD ORDER #: [id number] PYROTECHNIST: Jie Solorzano RN STATUS: inpatient INDICATIONS: The patient is a 56 yr old male here for an EGD due to iron deficiency anemia PROCEDURE PERFORMED: EGD w/ biopsy MEDICATIONS: Per Anesthesia and None. TOPICAL ANESTHETIC: CONSENT: The patient understands the risks and benefits of the procedure and understands that these risks include, but are not limited to: sedation, allergic reaction, infection, perforation and/or bleeding. Alternative means of evaluation and treatment include, among others: physical exam, x-rays, and/or surgical intervention. The patient elects to proceed with this endoscopic procedure. medical equipment was checked for proper function. Hand hygiene and appropriate measures for infection prevention was taken. After the risks, benefits and alternatives of the procedure were thoroughly explained, Informed consent was verified, confirmed and timeout was successfully executed by the treatment team. The patient was anesthetized with topical anesthesia and the [id number] (Pedi C) endoscope was introduced through the mouth and advanced to the second portion of the duodenum. Retroflexed views revealed no abnormalities The gastroscope was then slowly withdrawn and removed. ESOPHAGUS: There was LA Class A esophagitis noted. A biopsy was performed using cold forceps. Sample sent for histology. STOMACH: The mucosa of the stomach appeared normal. DUODENUM: The duodenal mucosa appeared normal in the bulb and second portion of the duodenum. ADVERSE EVENTS: There were no complications. IMPRESSIONS: 1. There was LA Class A esophagitis noted; biopsy was performed 2. The mucosa of the stomach appeared normal 3. Normal duodenal mucosa in the bulb and second portion of the duodenum 4. Retroflexed views revealed no abnormalities RECOMMENDATIONS: 1. Await biopsy results. Biopsy results will not be ready for 7-10 days. If you don't hear from us in two weeks, call our office for biopsy results. 2. Anti-reflux regimen 3. Colonoscopy 4. Start PPI 5. Avoid NSAIDS 6. Rectal exam performed , solid stool. Colonoscopy cancelled PATIENT CONDITION: stable DISPOSITION: Inpatient REPEAT EXAM: Return 1 year EGD pending biopsy results Jannet Ospina MD eSigned: Jannet Ospina MD 01/12/2017 11:13 AM cc: PATIENT NAME: Joon Porter MR#: [id number]
[2017-01-12] MEDS ORDERED: DO NOT ADM ANY ANTICOAGULANT DRUGS PRN (11:28)
[2017-01-12] MEDS ORDERED: LISINOPRIL 10 MG TAB PO SCH (14:00)
[2017-01-12] MEDS ORDERED: CARVEDILOL 3.125 MG TAB PO SCH (14:00)
--- NOTE | 2017-01-12 14:14 | HHI.PR ---
Subjective Remarks Follow-up GI bleed 01/12/17-patient seen and examined, status post EGD with finding of esophagitis , colonoscopy was canceled as patient was full of poops. BP slightly elevated. No other issues. Objective Vitals Vital Signs Date Time Temp Pulse Resp B/P (MAP) Pulse Ox O2 Delivery O2 Flow Rate FiO2 01/12/17 12:00 96.8 54 19 170/85 (113) 99 01/12/17 11:27 97.8 55 20 166/66 (99) 96 01/12/17 08:00 96.4 59 20 166/75 (105) 99 01/12/17 04:00 97.9 70 22 143/61 (88) 99 01/12/17 00:47 65 01/12/17 00:00 97.4 95 18 137/72 (93) 94 01/11/17 22:30 98.1 64 18 190/82 (118) 98 01/11/17 19:15 98.3 73 18 181/83 (115) 99 01/11/17 15:04 97.6 68 16 147/70 (95) 100 01/11/17 14:28 18 I/O 01/11/17 01/11/17 01/11/17 01/12/17 01/12/17 01/12/17 07:00 15:00 23:00 07:00 15:00 23:00 Intake Total 1885 ml 596 ml Output Total 200 ml 825 ml Balance 1685 ml -229 ml Intake IV Total 1335 ml 596 ml Packed Cells 400 ml Blood Product IV Normal Saline Flush 150 ml Output Urine Total 200 ml 825 ml # Voids 1 2 # Bowel Movements 0 Result Diagram: 01/12/17 0654 01/12/17 0654 Imaging Last Impressions Foot X-Ray 01/10/17 0000 Signed Impressions: Service Date/Time: Tuesday, January 10, 2017 23:58 - CONCLUSION: Mild soft tissue prominence with no underlying bony abnormality. Morales Miller MD Objective Remarks GENERAL: NAD SKIN: Warm and dry. HEAD: Normocephalic. EYES: No scleral icterus. No injection or drainage. NECK: Supple, trachea midline. No JVD or lymphadenopathy. CARDIOVASCULAR: Regular rate and rhythm without murmurs, gallops, or rubs. RESPIRATORY: Breath sounds equal bilaterally. No accessory muscle use. GASTROINTESTINAL: Abdomen soft, non-tender, nondistended. MUSCULOSKELETAL: No cyanosis, or edema. Pressure ulcer of left foot BACK: Nontender without obvious deformity. No CVA tenderness. A/P Problem List: (1) GI bleed ICD Code: K92.2 - Gastrointestinal hemorrhage, unspecified Status: Acute (2) Pressure ulcer of left foot ICD Code: L89.899 - Pressure ulcer of other site, unspecified stage Status: Acute (3) Chronic anemia ICD Code: D64.9 - Anemia, unspecified Status: Acute Assessment and Plan 56-year-old man with GI bleed -EGD on 08/27 that found esophagitis but no bleeding. -s/p EGD 01/12/17 with finding of esophagitis. Colonoscopy cancelled. Patient will need follow-up with GI -Transfused 1 unit packed red blood cells. -Change Protonix to 40 mg daily -Appreciate input from GI Anemia -see workup as above. Chronic left heel wound -X-ray showed no signs of infection. No leukocytosis. Elevated sedimentation rate. -Appreciate input from podiatry -Discontinue all antibiotics including Zosyn and vancomycin. -Daily Betadine dressing -Pain control as needed. Left-sided CVA -On aspirin however change to aspirin EC Hypertension -Resume home medication accordingly Coreg, lisinopril. Acute on chronic renal sufficiency -Mildly elevated due to dehydration. Elevated BUN. Patient's baseline seems to be around creatinine 1.5. At the moment creatinine is 1.71. Strict ins and outs. Avoid nephrotoxins. Continue to trend creatinine. DVT prophylaxis -Contraindicated secondary to ? active GI bleed. Discharge Planning Discharge patient to home Condition on discharge: Improved Regular Diet as tolerated Ad Caryl activity Rx written:see EMR Follow-up with primary care physician in 1week Patient follow-up with Jacob Mcleod MD Jan 12, 2017 14:14
[2017-01-12] MEDS ORDERED: HYDR-3516 PO (14:16)
[2017-01-12] MEDS ORDERED: PROT40TA PO (14:16)
[2017-01-12] MEDS: SODIUM CHLOR 0.9% 1000 ML INJ 1,000 ML IV SCH (16:15)
[2017-01-12] MEDS ORDERED: FUROSEMIDE 20 MG TAB PO SCH (18:00)
[2017-01-12] MEDS ORDERED: ATORVASTATIN 20 MG TAB PO SCH (21:00)
[2017-01-13] MEDS ORDERED: ASPIRIN EC 81 MG TABEC PO SCH (09:00)
== END 2017-01-12 20:51 | DRG 377 ==
LOC: NEPD 22:44 → NEDA 01-11 01:06 → NEPFCDU 01-11 04:20 → N07B 01-11 22:16
PROVIDERS: ADMIT Hospitalist; ATTEND Hospitalist
PROC: 30233N1 Transfusion of Nonautologous Red Blood Cells into Peripheral Vein, Percutaneous Approach (ICD-10-PCS; 2017-01-11)
PROC: 0DB58ZX Excision of Esophagus, Via Natural or Artificial Opening Endoscopic, Diagnostic (ICD-10-PCS; principal; 2017-01-12 11:00)
DX: K92.1 Melena (principal); L89.623 Pressure ulcer of left heel, stage 3; N17.9 Acute kidney failure, unspecified; I11.0 Hypertensive heart disease with heart failure; I50.9 Heart failure, unspecified; I69.354 Hemiplegia and hemiparesis following cerebral infarction affecting left non-dominant side; F17.210 Nicotine dependence, cigarettes, uncomplicated; I12.9 Hypertensive chronic kidney disease with stage 1 through stage 4 chronic kidney disease, or unspecified chronic kidney disease; N18.9 Chronic kidney disease, unspecified; E86.0 Dehydration; E78.00 Pure hypercholesterolemia, unspecified; J44.9 Chronic obstructive pulmonary disease, unspecified; F32.9 Major depressive disorder, single episode, unspecified; F41.9 Anxiety disorder, unspecified; M19.90 Unspecified osteoarthritis, unspecified site; R70.0 Elevated erythrocyte sedimentation rate; D64.9 Anemia, unspecified; K20.9 Esophagitis, unspecified; Z99.3 Dependence on wheelchair; Z79.82 Long term (current) use of aspirin
CPT/HCPCS: 36430; 73650; 80048; 80202; 85014; 85018; 85025; 85652; 86850; 86900; 86901; 86920; 87070; 87205; 88305; 96365; 96368; C9113; G8987-GP; G8988-GP; J2543; J3370; J7030; J7050; P9016

== ENCOUNTER 2017-01-22 19:40 | Emergency (ER) | payer MEDICAID ==
[~2017-01-22] VITALS: Ht 177.8 cm; Wt 56.0 kg
[~2017-01-22 19:40] MED LIST changes: +PROT40TA PO
[2017-01-22 19:44] VITALS: BP 127/55; PULSE 78; RESP 16; TEMP 98.6; O2SAT 99
--- NOTE | 2017-01-22 21:16 | RADRPT ---
EXAM DATE/TIME: 01/22/2017 20:00 [place] COMPARISON: No previous studies available for comparison. INDICATIONS : Left foot, heel pain, bedsore. MEDICAL HISTORY : None. SURGICAL HISTORY : None. ENCOUNTER: [facility] ACUITY: 4 - 6 months PAIN SCORE: 10/10 LOCATION: Left foot, heel region. FINDINGS: Three view examination of the left foot demonstrates no soft tissue swelling, dislocation, or fractur e. The tarsal bones appear intact. The interphalangeal and metatarsophalangeal joints are intact. The calcaneus is intact. Bony mineralization is diffusely decreased. CONCLUSION: 1. Diffuse osteopenia. 2. No focal destructive lesions or periosteal reaction. Rg Montenegro MD on January 22, 2017 at 21:13 Board Certified Radiologist. This report was verified electronically.
[2017-01-22 22:46] LABS: HEMATOCRIT 27.7 % (39.0-51.0); HEMOGLOBIN 9.4 GM/DL (13.0-17.0); MEAN CELL VOLUME 97.8 FL (80.0-100.0); MEAN CORPUSCULAR HEMOGLOBIN 33.3 PG (27.0-34.0); MEAN PLATELET VOLUME 7.8 FL (7.0-11.0); PLATELET COUNT 402 TH/MM3 (150-450); RED BLOOD COUNT 2.84 MIL/MM3 (4.50-5.90); RED CELL DISTRIBUTION WIDTH 15.4 % (11.6-17.2); WHITE BLOOD COUNT 8.6 TH/MM3 (4.0-11.0)
[2017-01-22 23:10] LABS: BICARBONATE 30.3 MEQ/L (21.0-32.0); C-REACTIVE PROTEIN 0.47 MG/DL (0.00-0.30); CALCIUM 8.5 MG/DL (8.5-10.1); CREATININE 1.82 MG/DL (0.60-1.30)
[2017-01-22 23:13] LABS: BASOPHILS 1 % (0-2); LYMPHOCYTES 31 % (9-44); MONOCYTES 6 % (0-8); MYELOCYTES 1 % (0-0); NEUTROPHIL # MANUAL DIFF 4.6 TH/MM3 (1.8-7.7); POLYS (SEG NEUTROPHILS) 53 % (16-70)
--- NOTE | 2017-01-22 23:52 | PD ---
HPI Chief Complaint: Skin Problem Time Seen by Provider: 22:35 Travel History International Travel<30 days: No Contact w/Intl Traveler<30days: No Traveled to known affect area: No History of Present Illness HPI 56-year-old white male comes in from the nursing facility with complaints of left heel pain. This is a patient who has had a CVA and has had peripheral vascular disease. He has a chronic nonhealing ulcer on his left heel. He has been admitted and evaluated by podiatry in the past. The patient ran out of his pain medications over last 3 days. He is complaining of pain in his heel. Patient continues to smoke. He denies any acute numbness or tingling. Symptoms are mild to moderate. No alleviating symptoms. PFSH Past Medical History Hx Anticoagulant Therapy: Yes (unknown) Arthritis: Yes Asthma: No Autoimmune Disease: No Blood Disorders: No Anxiety: Yes Depression: Yes Heart Rhythm Problems: No Cancer: No Cardiovascular Problems: Yes High Cholesterol: No Chest Pain: No Congestive Heart Failure: No COPD: Yes Cerebrovascular Accident: Yes (HTN, hyperlipidemia) Diabetes: No Diminished Hearing: No Endocrine: No Gastrointestinal Disorders: No GERD: No Genitourinary: No Hiatal Hernia: No Hypertension: Yes Immune Disorder: No Implanted Vascular Access Dvce: Yes Musculoskeletal: Yes Neurologic: Yes (CVA) Psychiatric: Yes Reproductive: No Respiratory: Yes (COPD) Immunizations Current: Yes Migraines: No Seizures: No Sleep Apnea: No Thyroid Disease: No Ulcer: No Tetanus Vaccination: < 5 Years Influenza Vaccination: Yes Past Surgical History Abdominal Surgery: No Body Medical Devices: HARDWARE RT ANKLE Cardiac Surgery: No Ear Surgery: No Endocrine Surgery: No Eye Surgery: Yes (Right retina repaired via laser) Genitourinary Surgery: No Gynecologic Surgery: No Neurologic Surgery: No Oral Surgery: No Thoracic Surgery: No Other Surgery: Yes (RIGHT ANKLE, 8 SCREWS AND PLATE) Social History Alcohol Use: No Tobacco Use: Yes (1 PPD) Substance Use: No Allergies-Medications (Allergen,Severity, Reaction): Coded Allergies: No Known Allergies (Verified Allergy, Unknown, 01/22/17) Reported Meds & Prescriptions Reported Meds & Active Scripts Active Ultram (Tramadol HCl) 50 Mg Tab 50 Mg PO Q4H PRN Protonix (Pantoprazole Sodium) 40 Mg Tab 40 Mg PO DAILY Hydrocodone-Acetamin 5-325 mg (Hydrocodone/Acetaminophen) 5 Mg-325 Mg Tablet 1 Tab PO Q4H PRN Lisinopril 10 Mg Tab 10 Mg PO DAILY Ferosul (Ferrous Sulfate) 325 Mg (65 Mg Iron) Tablet 325 Mg PO BID@12,17 Adult Aspirin EC Low Strength (Aspirin) 81 Mg Tabec 81 Mg PO DAILY Atorvastatin (Atorvastatin Calcium) 20 Mg Tab 20 Mg PO HS Coreg (Carvedilol) 3.125 Mg Tab 3.125 Mg PO Q12HR Furosemide 20 Mg Tab 20 Mg PO BID@09,18 Wheelchair Elevated Leg (Device) 1 Mis Mis Ea .ROUTE DIRECTED Review of Systems General / Constitutional: No: Fever Eyes: No: Visual changes HENT: No: Headaches Cardiovascular: No: Chest Pain or Discomfort Respiratory: Positive: Cough, No: Shortness of Breath Gastrointestinal: No: Abdominal Pain Genitourinary: No: Dysuria Musculoskeletal: Positive: Arthralgias, Limited ROM, Pain Skin: Positive Lesions (left heel ulcer), No Rash Neurologic: Positive: Weakness (chronic), Focal Abnormalities (chronic left- sided contracture), Coordination Problem, No: Change in Mentation Psychiatric: No: Depression Endocrine: No: Polydipsia Hematologic/Lymphatic: No: Easy Bruising Physical Exam Narrative GENERAL: This is a well-nourished, well-developed patient, in no apparent distress. SKIN: Left heel ulcer, ecchymoses or lesions. Warm and dry. HEAD: Atraumatic. Normocephalic. EYES: PERRL, EOMI, no discharge or injection. No scleral icterus. EARS: Clear NOSE: Nasal turbinates appear normal. THROAT: Mucosa pink and moist. Airway patent. NECK: Trachea midline. supple, moves head freely. LUNGS: Scattered rhonchi with occasional wheeze. CV: Regular in rhythm. ABDOMEN: Soft nontender. EXT: No clubbing cyanosis. Examination of left lower extremity reveals some mild edema in the foot. He has a nickel-sized chronic eschared nonhealing ulcer over the end of the heel. There is no discharge. There is no erythema. No warmth. I cannot palpate any pulses. I'm able to hear a very limited posterior tibial pulse but no dorsalis pedis pulse patient's foot is cool does appear to have circulation. He has intact Refill less than 3 seconds. I can feel a fair femoral pulses. His left lower leg is partially contracted. He has a partial left upper arm contracture. Data Data Last Documented VS Vital Signs Date Time Temp Pulse Resp B/P (MAP) Pulse Ox O2 Delivery O2 Flow Rate FiO2 01/22/17 19:44 98.6 78 16 127/55 (79) 99 Room Air Orders Orders Foot, Complete ([id number]) (01/22/17 ) Complete Blood Count With Diff (01/22/17 19:47) Basic Metabolic Panel (Bmp) (01/22/17 19:47) [place] Sedimentation Rate (01/22/17 19:47) C-Reactive Protein (Crp) (01/22/17 19:47) Lactic Acid (01/22/17 23:25) Labs Laboratory Tests Test 01/22/17 22:30 01/22/17 23:35 White Blood Count 8.6 TH/MM3 Red Blood Count 2.84 MIL/MM3 Hemoglobin 9.4 GM/DL Hematocrit 27.7 % Mean Corpuscular Volume 97.8 FL Mean Corpuscular Hemoglobin 33.3 PG Mean Corpuscular Hemoglobin Concent 34.0 % Red Cell Distribution Width 15.4 % Platelet Count 402 TH/MM3 Mean Platelet Volume 7.8 FL CBC Comment AUTO DIFF Differential Total Cells Counted 100 Neutrophils % (Manual) 53 % Lymphocytes % 31 % Monocytes % 6 % Eosinophils % 8 % Basophils % 1 % Neutrophils # (Manual) 4.6 TH/MM3 Myelocytes 1 % Differential Comment FINAL DIFF MANUAL Atypical Lymphocytes % Platelet Estimate NORMAL Platelet Morphology Comment NORMAL Polychromasia 2.0 % Red Cell Morphology Comment NORMAL Erythrocyte Sedimentation Rate 60 mm/hr Blood Urea Nitrogen 44 MG/DL Creatinine 1.82 MG/DL Random Glucose 106 MG/DL Calcium Level 8.5 MG/DL Sodium Level 140 MEQ/L Potassium Level 4.8 MEQ/L Chloride Level 106 MEQ/L Carbon Dioxide Level 30.3 MEQ/L Anion Gap 4 MEQ/L Estimat Glomerular Filtration Rate 39 ML/MIN C-Reactive Protein 0.47 MG/DL Lactic Acid Level 0.6 mmol/L MDM Medical Decision Making Medical Screen Exam Complete: Yes Emergency Medical Condition: Yes Medical Record Reviewed: Yes Interpretation(s) CBC & BMP Diagram 01/22/17 22:30 Calcium Level 8.5 Last 24 hours Impressions Foot X-Ray 01/22/17 0000 Signed Impressions: Service Date/Time: Sunday, January 22, 2017 20:00 - CONCLUSION: 1. Diffuse osteopenia. 2. No focal destructive lesions or periosteal reaction. Rg Montenegro MD Differential Diagnosis Differential diagnoses: Med refill, arterial occlusion, acute exacerbation of chronic pain, peripheral vascular disease Narrative Course I have performed pencil Doppler pulses on the left lower extremity. I cannot determine a dorsalis pedis but he has a fair posterior tibialis pulse. I reviewed the patient's CTA with runoff of the aortogram which shows significant disease. I suspect he has significant peripheral vascular disease causing his nonhealing chronic heel ulcer. The patient continues to smoke. He has not had any revascularization performed. The patient will be given a short course of Ultram for pain. He is strongly encouraged to stop smoking. He is also advised to follow-up vascular surgery. The patient has been medically cleared. The patient is aware and he verbally states understanding that if he continues to smoke he will eventually go on to have a complete occlusion and have a vascular compromise of the left lower leg causing a amputation and/or . This is chronic left heel ulcer, PVD, tobacco abuse Diagnosis Primary Impression: Chronic ulcer of left heel Qualified Codes: L97.421 - Non-pressure chronic ulcer of left heel and midfoot limited to breakdown of skin Additional Impressions: PVD (peripheral vascular disease) Tobacco abuse Referrals: Joon Cardona MD 2 days Patient Instructions: General Instructions Additional Instructions: Rest. STOP smoking. SMOKING cessation. Ultram for pain. Follow-up with vascular surgeon in the next few days for recheck. Return to the ER for problems. Med/Other Pt SpecificInfo: Prescription(s) given Scripts Tramadol (Ultram) 50 Mg Tab 50 MG PO Q4H Y for PAIN, #20 TAB 0 Refills Prov: Stephanie Trevino MD 01/23/17 Disposition: 01 DISCHARGE HOME Condition: Stable Delta Vanegas Jan 22, 2017 23:52
[2017-01-23] MEDS ORDERED: TRAM50 PO (00:15)
[2017-01-23 07:00] VITALS: BP 120/83; PULSE 98; RESP 16; TEMP 97.8; O2SAT 98
[2017-01-23 09:01] VITALS: BP 122/81; TEMP 97.9
== END 2017-01-23 09:03 | disposition home or self-care (01) ==
LOC: NEPD 19:40
DX: L97.421 Non-pressure chronic ulcer of left heel and midfoot limited to breakdown of skin (principal); I73.9 Peripheral vascular disease, unspecified; F17.210 Nicotine dependence, cigarettes, uncomplicated; I10 Essential (primary) hypertension; E78.5 Hyperlipidemia, unspecified; J44.9 Chronic obstructive pulmonary disease, unspecified
CPT/HCPCS: 73630; 80048; 83605; 85007; 85027; 85652; 86140; 99284

== ENCOUNTER 2017-02-06 14:55 | Emergency (ER) | payer MEDICAID ==
[~2017-02-06] VITALS: Ht 177.8 cm; Wt 55.5 kg
[~2017-02-06 14:55] MED LIST changes: +TRAM50 PO
[2017-02-06 15:06] VITALS: BP 102/74; PULSE 80; RESP 15
[2017-02-06] MEDS ORDERED: ACETAMINOPHEN/HYDROcodone 325 MG/5 MG TAB PO ONE (17:30)
--- NOTE | 2017-02-06 18:36 | PD ---
HPI Chief Complaint: Pain: Acute or Chronic Time Seen by Provider: 17:17 Travel History International Travel<30 days: No Contact w/Intl Traveler<30days: No Traveled to known affect area: No History of Present Illness HPI Patient is a 56 year old male with chronic pain, who comes in because he ran out of his pain medicine. He lives in an assisted living and says they told him to come to the ED for pain medicine. He says the pain is in his foot, where he has a chronic ulcer. He also has pain to his buttocks because he says his diaper is irritating him. He says he is here only because he ran out of pain medicine. He is here often for this. He denies new injuries. He has not had fever or chills. PFSH Past Medical History Hx Anticoagulant Therapy: Yes (unknown) Arthritis: Yes Asthma: No Autoimmune Disease: No Blood Disorders: No Anxiety: Yes Depression: Yes Heart Rhythm Problems: No Cancer: No Cardiovascular Problems: Yes High Cholesterol: No Chest Pain: No Congestive Heart Failure: No COPD: Yes Cerebrovascular Accident: Yes (HTN, hyperlipidemia) Diabetes: No Diminished Hearing: No Endocrine: No Gastrointestinal Disorders: No GERD: No Genitourinary: No Hiatal Hernia: No Hypertension: Yes Immune Disorder: No Implanted Vascular Access Dvce: Yes Musculoskeletal: Yes Neurologic: Yes (CVA) Psychiatric: Yes Reproductive: No Respiratory: Yes (COPD) Immunizations Current: Yes Migraines: No Seizures: No Sleep Apnea: No Thyroid Disease: No Ulcer: No Past Surgical History Abdominal Surgery: No Body Medical Devices: HARDWARE RT ANKLE Cardiac Surgery: No Ear Surgery: No Endocrine Surgery: No Eye Surgery: Yes (Right retina repaired via laser) Genitourinary Surgery: No Gynecologic Surgery: No Neurologic Surgery: No Oral Surgery: No Thoracic Surgery: No Other Surgery: Yes (RIGHT ANKLE, 8 SCREWS AND PLATE) Social History Alcohol Use: No Tobacco Use: Yes (1 PPD) Substance Use: No Allergies-Medications (Allergen,Severity, Reaction): Coded Allergies: No Known Allergies (Verified Allergy, Unknown, 01/22/17) Reported Meds & Prescriptions Reported Meds & Active Scripts Active Ultram (Tramadol HCl) 50 Mg Tab 50 Mg PO Q4H PRN Protonix (Pantoprazole Sodium) 40 Mg Tab 40 Mg PO DAILY Hydrocodone-Acetamin 5-325 mg (Hydrocodone/Acetaminophen) 5 Mg-325 Mg Tablet 1 Tab PO Q4H PRN Lisinopril 10 Mg Tab 10 Mg PO DAILY Ferosul (Ferrous Sulfate) 325 Mg (65 Mg Iron) Tablet 325 Mg PO BID@12,17 Adult Aspirin EC Low Strength (Aspirin) 81 Mg Tabec 81 Mg PO DAILY Atorvastatin (Atorvastatin Calcium) 20 Mg Tab 20 Mg PO HS Coreg (Carvedilol) 3.125 Mg Tab 3.125 Mg PO Q12HR Furosemide 20 Mg Tab 20 Mg PO BID@09,18 Wheelchair Elevated Leg (Device) 1 Mis Mis Ea .ROUTE DIRECTED Review of Systems Except as stated in HPI: all other systems reviewed are Neg General / Constitutional: No: Fever, Chills HENT: No: Headaches, Lightheadedness Cardiovascular: No: Chest Pain or Discomfort Respiratory: No: Shortness of Breath Gastrointestinal: No: Nausea, Vomiting, Abdominal Pain Musculoskeletal: Positive: Pain Skin: No Rash, No Itching Neurologic: No: Weakness, Dizziness Physical Exam Narrative GENERAL: Awake and alert, in no acute distress. SKIN: Focused skin assessment warm/dry. Chronic ulcer to left heal, no surrounding erythema, warmth, or oozing of fluids. Irritation to the skin over the coccyx, no warmth, or ulceration. HEAD: Atraumatic. Normocephalic. EYES: Pupils equal and round. No scleral icterus. ENT: Mucous membranes pink and moist. NECK: Trachea midline. No JVD. CARDIOVASCULAR: Regular rate and rhythm. No murmur appreciated. RESPIRATORY: No accessory muscle use. Clear to auscultation. Breath sounds equal bilaterally. GASTROINTESTINAL: Abdomen soft, non-tender, nondistended. MUSCULOSKELETAL: No obvious deformities. No clubbing. No cyanosis. No edema. NEUROLOGICAL: Awake and alert. No obvious cranial nerve deficits. Motor grossly within normal limits. Normal speech. PSYCHIATRIC: Appropriate mood and affect; insight and judgment normal. Data Data Last Documented VS Vital Signs Date Time Temp Pulse Resp B/P (MAP) Pulse Ox O2 Delivery O2 Flow Rate FiO2 02/06/17 15:06 80 15 102/74 (83) Room Air Orders Orders Acetamin-Hydrocod 325-5 Mg ([place] 5-325 (02/06/17 17:30) [facility] Medical Decision Making Medical Screen Exam Complete: Yes Emergency Medical Condition: Yes Medical Record Reviewed: Yes Differential Diagnosis Chronic pain versus cellulitis versus abscess Narrative Course Patient is a 56-year-old male who comes in because he is out of his pain medicine. Exam shows a chronic ulcer to his left heel as well as irritation over his coccyx. Patient given Hartman. He'll be discharged with prescription for Hartman. Advised follow-up with her primary doctor. Advised to return to the ED as needed for any worsening symptoms. Diagnosis Primary Impression: Ulcer of left foot Qualified Codes: L97.521 - Non-pressure chronic ulcer of other part of left foot limited to breakdown of skin Additional Impression: Chronic back pain Qualified Codes: M54.5 - Low back pain; G89.29 - Other chronic pain Referrals: [facility] call for appointment Patient Instructions: Chronic Pain (ED), General Instructions Additional Instructions: Follow up with a primary care physician. Return to the ED as needed for any worsening symptoms. Scripts Hydrocodone-Acetaminophen (Hartman) 5 Mg-325 Mg Tab 1 TAB PO Q6H Y for PAIN, #12 TAB 0 Refills Prov: Stephanie Trevino MD 02/06/17 Disposition: 01 DISCHARGE HOME Condition: Stable Stephanie Trevino MD Feb 06, 2017 18:36
[2017-02-06] MEDS ORDERED: NORC5TAB PO (18:43)
== END 2017-02-06 20:49 | disposition home or self-care (01) ==
LOC: NEPD 14:55
DX: L97.521 Non-pressure chronic ulcer of other part of left foot limited to breakdown of skin (principal); M54.5 Low back pain; G89.29 Other chronic pain; E78.5 Hyperlipidemia, unspecified; I10 Essential (primary) hypertension; F17.200 Nicotine dependence, unspecified, uncomplicated
CPT/HCPCS: 99283

== ENCOUNTER 2017-02-07 23:09 | Emergency (ER) | payer MEDICAID ==
[~2017-02-07] VITALS: Ht 172.7 cm; Wt 45.5 kg
[~2017-02-07 23:09] MED LIST changes: +NORC5TAB PO
--- NOTE | 2017-02-07 23:18 | PD ---
HPI Chief Complaint: FREQUENT BMS Time Seen by Provider: 23:13 Travel History International Travel<30 days: No Contact w/Intl Traveler<30days: No Traveled to known affect area: No History of Present Illness HPI 56-year-old male with history of COPD, hypertension, anxiety, previous stroke with left-sided deficit, presents to emergency department for evaluation of frequent bowel movements. Patient states he has had 6 bowel movements today, all of which are formed and brown. He states that this is a "real inconvenience " when he gets into his wheelchair and has to get up again and have a bowel movement. Denies any abdominal pain. No recent illnesses, fever, or chills. Denies any other acute medical needs. Patient has no other symptoms to report. PFSH Past Medical History Hx Anticoagulant Therapy: Yes (unknown) Arthritis: Yes Asthma: No Autoimmune Disease: No Blood Disorders: No Anxiety: Yes Depression: Yes Heart Rhythm Problems: No Cancer: No Cardiovascular Problems: Yes High Cholesterol: No Chest Pain: No Congestive Heart Failure: No COPD: Yes Cerebrovascular Accident: Yes (HTN, hyperlipidemia) Diabetes: No Diminished Hearing: No Endocrine: No Gastrointestinal Disorders: No GERD: No Genitourinary: No Hiatal Hernia: No Hypertension: Yes Immune Disorder: No Implanted Vascular Access Dvce: Yes Musculoskeletal: Yes Neurologic: Yes (CVA) Psychiatric: Yes Reproductive: No Respiratory: Yes (COPD) Immunizations Current: Yes Migraines: No Seizures: No Sleep Apnea: No Thyroid Disease: No Ulcer: No Past Surgical History Abdominal Surgery: No Body Medical Devices: HARDWARE RT ANKLE Cardiac Surgery: No Ear Surgery: No Endocrine Surgery: No Eye Surgery: Yes (Right retina repaired via laser) Genitourinary Surgery: No Gynecologic Surgery: No Neurologic Surgery: No Oral Surgery: No Thoracic Surgery: No Other Surgery: Yes (RIGHT ANKLE, 8 SCREWS AND PLATE) Social History Alcohol Use: No Tobacco Use: Yes (1 PPD) Substance Use: No Allergies-Medications (Allergen,Severity, Reaction): Coded Allergies: No Known Allergies (Verified Allergy, Unknown, 01/22/17) Reported Meds & Prescriptions Reported Meds & Active Scripts Active [place] (Hydrocodone-Acetaminophen) 5 Mg-325 Mg Tab 1 Tab PO Q6H PRN Ultram (Tramadol HCl) 50 Mg Tab 50 Mg PO Q4H PRN Protonix (Pantoprazole Sodium) 40 Mg Tab 40 Mg PO DAILY Hydrocodone-Acetamin 5-325 mg (Hydrocodone/Acetaminophen) 5 Mg-325 Mg Tablet 1 Tab PO Q4H PRN Lisinopril 10 Mg Tab 10 Mg PO DAILY Ferosul (Ferrous Sulfate) 325 Mg (65 Mg Iron) Tablet 325 Mg PO BID@12,17 Adult Aspirin EC Low Strength (Aspirin) 81 Mg Tabec 81 Mg PO DAILY Atorvastatin (Atorvastatin Calcium) 20 Mg Tab 20 Mg PO HS Coreg (Carvedilol) 3.125 Mg Tab 3.125 Mg PO Q12HR Furosemide 20 Mg Tab 20 Mg PO BID@09,18 Wheelchair Elevated Leg (Device) 1 Mis Mis Ea .ROUTE DIRECTED Review of Systems Except as stated in HPI: all other systems reviewed are Neg Physical Exam Narrative GENERAL: Awake and alert, chronically ill-appearing male patient, in no acute distress. SKIN: Focused skin assessment warm/dry. Chronic ulcer to left heal, no surrounding erythema, warmth, or oozing of fluids. Irritation to the skin over the coccyx, no warmth, or ulceration. HEAD: Atraumatic. Normocephalic. EYES: Pupils equal and round. No scleral icterus. ENT: Mucous membranes pink and moist. NECK: Trachea midline. No JVD. CARDIOVASCULAR: Regular rate and rhythm. No murmur appreciated. RESPIRATORY: No accessory muscle use. Clear to auscultation. Breath sounds equal bilaterally. GASTROINTESTINAL: Abdomen soft, non-tender, nondistended. No guarding. No rebound tenderness. MUSCULOSKELETAL: No obvious deformities. No clubbing. No cyanosis. No edema. NEUROLOGICAL: Awake and alert. No obvious cranial nerve deficits. Left-sided deficit secondary to stroke. Normal speech. Data Data Last Documented VS Vital Signs Date Time Temp Pulse Resp B/P (MAP) Pulse Ox O2 Delivery O2 Flow Rate FiO2 02/07/17 23:27 97.8 68 16 106/56 (73) 96 Room Air Orders Orders Ed Discharge Order (02/07/17 23:22) [facility] Medical Decision Making Medical Screen Exam Complete: Yes Emergency Medical Condition: Yes Medical Record Reviewed: Yes Differential Diagnosis Frequent bowel movements versus IBS versus gastroenteritis versus anxiety Narrative Course 56-year-old male presents to emergency department for evaluation of frequent bowel movements. Patient appears without distress. His abdominal exam is benign. He assures me that these are formed, normal, brown bowel movements that are just happening more frequently today. I have discussed the patient with my attending physician. At this time there is no for further emergent intervention. Patient will be discharged. Transportation has been arranged. During the time the patient is here in emergency department, he has not had 1 bowel movement. He is counseled on a binding diet and encouraged to follow-up with gastroenterology if symptoms persist. He agrees to return immediately with any acute worsening of symptoms. Diagnosis Primary Impression: Frequent bowel movements Referrals: Primary Care Physician Patient Instructions: Irritable Bowel Syndrome (ED) Additional Instructions: Follow-up with a primary care provider See gastroenterology evaluation of symptoms persist Consider a bland, binding diet Return immediately to the emergency department with any acute worsening of symptoms Med/Other Pt SpecificInfo: No Change to Meds Disposition: 01 DISCHARGE HOME Condition: Stable Manjula Zhang Feb 07, 2017 23:18
[2017-02-07 23:27] VITALS: BP 106/56; PULSE 68; RESP 16; TEMP 97.8; O2SAT 96
== END 2017-02-08 10:45 | disposition home or self-care (01) ==
LOC: NEPD 23:09
DX: K58.9 Irritable bowel syndrome, unspecified (principal); J44.9 Chronic obstructive pulmonary disease, unspecified; I10 Essential (primary) hypertension; F41.9 Anxiety disorder, unspecified; M19.90 Unspecified osteoarthritis, unspecified site; F32.9 Major depressive disorder, single episode, unspecified; E78.5 Hyperlipidemia, unspecified; F17.210 Nicotine dependence, cigarettes, uncomplicated; Z79.01 Long term (current) use of anticoagulants; Z86.73 Personal history of transient ischemic attack (TIA), and cerebral infarction without residual deficits
CPT/HCPCS: 99283

== ENCOUNTER 2017-02-08 21:33 | Inpatient (IN) | payer MEDICAID ==
[~2017-02-08] VITALS: Ht 177.8 cm; Wt 46.8 kg
[2017-02-08 21:42] VITALS: BP 128/75; PULSE 88; RESP 18; TEMP 97.1; O2SAT 100
[2017-02-08] MEDS ORDERED: DEXTROSE 50% IN WATER 50 ML SYRINGE ONE (22:30)
[2017-02-08] MEDS ORDERED: SODIUM CHLOR 0.9% 1000 ML INJ 1,000 ML IV ONE (22:33)
[2017-02-08] MEDS ORDERED: DEXTROSE 50% IN WATER 50 ML VIAL(D50) IV PUSH ONE (22:45)
--- NOTE | 2017-02-08 22:45 | PD ---
HPI Chief Complaint: GI Complaint Time Seen by Provider: 22:26 Travel History International Travel<30 days: No Contact w/Intl Traveler<30days: No Traveled to known affect area: No History of Present Illness HPI 56-year-old male brought in by EMS from [facility] for evaluation of generalized malaise, generalized weakness, frequent diarrhea. EMS noted his blood sugar to be 60s, and when the patient arrived to the emergency department it was in the 20s. He is awake and alert. He denies history of diabetes. He tells me that he feels cold/shakes. He is unaware of any fevers. He reports frequent episodes of diarrhea and was actually evaluated in the emergency department yesterday for this. He is denying abdominal pain or vomiting. He has a chronic wound to his left heel. PFSH Past Medical History Hx Anticoagulant Therapy: Yes (unknown) Arthritis: Yes Asthma: No Autoimmune Disease: No Blood Disorders: No Anxiety: Yes Depression: Yes Heart Rhythm Problems: No Cancer: No Cardiovascular Problems: Yes High Cholesterol: Yes Chest Pain: No Congestive Heart Failure: No COPD: Yes Cerebrovascular Accident: Yes Diabetes: No Diminished Hearing: No Endocrine: No Gastrointestinal Disorders: No GERD: No Genitourinary: No Hiatal Hernia: No Hypertension: Yes Immune Disorder: No Implanted Vascular Access Dvce: Yes Musculoskeletal: Yes Neurologic: Yes (CVA) Psychiatric: Yes Reproductive: No Respiratory: Yes (COPD) Immunizations Current: Yes Migraines: No Seizures: No Sleep Apnea: No Thyroid Disease: No Ulcer: No Past Surgical History Abdominal Surgery: No Body Medical Devices: HARDWARE RT ANKLE Cardiac Surgery: No Ear Surgery: No Endocrine Surgery: No Eye Surgery: Yes (Right retina repaired via laser) Genitourinary Surgery: No Gynecologic Surgery: No Neurologic Surgery: No Oral Surgery: No Thoracic Surgery: No Other Surgery: Yes (RIGHT ANKLE, 8 SCREWS AND PLATE) Social History Alcohol Use: No Tobacco Use: Yes (1 PPD) Substance Use: No Allergies-Medications (Allergen,Severity, Reaction): Coded Allergies: No Known Allergies (Verified Allergy, Unknown, 02/08/17) Reported Meds & Prescriptions Reported Meds & Active Scripts Active Ultram (Tramadol HCl) 50 Mg Tab 50 Mg PO Q4H PRN Protonix (Pantoprazole Sodium) 40 Mg Tab 40 Mg PO DAILY Hydrocodone-Acetamin 5-325 mg (Hydrocodone/Acetaminophen) 5 Mg-325 Mg Tablet 1 Tab PO Q4H PRN Lisinopril 10 Mg Tab 10 Mg PO DAILY Ferosul (Ferrous Sulfate) 325 Mg (65 Mg Iron) Tablet 325 Mg PO BID@12,17 Adult Aspirin EC Low Strength (Aspirin) 81 Mg Tabec 81 Mg PO DAILY Atorvastatin (Atorvastatin Calcium) 20 Mg Tab 20 Mg PO HS Coreg (Carvedilol) 3.125 Mg Tab 3.125 Mg PO Q12HR Furosemide 20 Mg Tab 20 Mg PO BID@09,18 Wheelchair Elevated Leg (Device) 1 Mis Mis Ea .ROUTE DIRECTED Review of Systems Except as stated in HPI: all other systems reviewed are Neg Physical Exam Narrative GENERAL: Well-developed, cachectic appearing, awake, alert, no apparent distress. SKIN: Focused skin assessment cool/dry. Left posterior heel with ulceration with necrotic-appearing wound that is foul-smelling, no purulent drainage, no surrounding warmth or erythema. HEAD: Atraumatic. Normocephalic. EYES: Pupils equal and round. No scleral icterus. No injection or drainage. ENT: Mucous membranes pink and moist. NECK: Trachea midline. No JVD. CARDIOVASCULAR: Regular rate and rhythm. Bilateral dorsalis pedis pulses are palpable yet weak. RESPIRATORY: No accessory muscle use. Clear to auscultation. Breath sounds equal bilaterally. GASTROINTESTINAL: Abdomen soft, non-tender, nondistended. MUSCULOSKELETAL: Skin exam as above. No obvious deformities. No clubbing. No cyanosis. No edema. NEUROLOGICAL: Awake and alert. No obvious cranial nerve deficits. Motor grossly within normal limits. Normal speech. PSYCHIATRIC: Appropriate mood and affect; insight and judgment normal. Data Data Last Documented VS Vital Signs Date Time Temp Pulse Resp B/P (MAP) Pulse Ox O2 Delivery O2 Flow Rate FiO2 02/08/17 21:42 97.1 88 18 128/75 (92) 100 Orders Orders Dextrose 50% In Vivian (Syr) Inj (D50w (Syr (02/08/17 22:30) Sepsis Workup Initiated (02/08/17 ) Electrocardiogram (02/08/17 22:33) Complete Blood Count With Diff (02/08/17 22:33) Comprehensive Metabolic Panel (02/08/17 22:33) Prothrombin Time / Inr (Pt) (02/08/17 22:33) Act Partial Throm Time (Ptt) (02/08/17 22:33) Lactic Acid Sepsis Protocol (02/08/17 22:33) Lipase (02/08/17 22:33) Urinalysis - C+S If Indicated (02/08/17 22:33) Influenzae A/B Antigen (02/08/17 22:33) Blood Culture (02/08/17 22:33) Chest, Single Ap (02/08/17 22:33) Blood Glucose (02/08/17 22:33) Ecg Monitoring (02/08/17 22:33) Iv Access Insert/Monitor (02/08/17 22:33) Oximetry (02/08/17 22:33) Oxygen Administration (02/08/17 22:33) Sodium Chlor 0.9% 1000 Ml Inj (Ns 1000 M (02/08/17 22:33) C Diff Toxin Pcr (02/08/17 22:33) Dextrose 50% In Vivian (Vial) Inj (D50w (Vi (02/08/17 22:45) Foot, Heel Only (Cht4vyc) (02/08/17 ) Westergren Sedimentation Rate (02/08/17 22:46) Alcohol (Ethanol) (02/08/17 22:59) Type And Screen (02/08/17 23:29) Sodium Chloride 0.9... W/Pantoprazole In (02/08/17 23:32) Sodium Chloride 0.9... W/Pantoprazole In (02/08/17 23:32) Sodium Chlor 0.9% 1000 Ml Inj (Ns 1000 M (02/09/17 00:00) Ct Abd/Pel W/O Iv Contrast (02/09/17 ) Cbc No Diff, Includes Plts (02/09/17 00:09) Labs Laboratory Tests Test 02/08/17 22:59 02/08/17 23:05 02/09/17 00:10 White Blood Count 12.0 TH/MM3 10.9 TH/MM3 Red Blood Count 2.64 MIL/MM3 2.38 MIL/MM3 Hemoglobin 8.7 GM/DL 8.0 GM/DL Hematocrit 26.4 % 24.0 % Mean Corpuscular Volume 99.9 FL 101.0 FL Mean Corpuscular Hemoglobin 32.8 PG 33.8 PG Mean Corpuscular Hemoglobin Concent 32.9 % 33.5 % Red Cell Distribution Width 15.4 % 15.6 % Platelet Count 380 TH/MM3 386 TH/MM3 Mean Platelet Volume 9.2 FL 9.2 FL Neutrophils (%) (Auto) 78.6 % Lymphocytes (%) (Auto) 14.6 % Monocytes (%) (Auto) 4.6 % Eosinophils (%) (Auto) 1.4 % Basophils (%) (Auto) 0.8 % Neutrophils # (Auto) 9.4 TH/MM3 Lymphocytes # (Auto) 1.8 TH/MM3 Monocytes # (Auto) 0.6 TH/MM3 Eosinophils # (Auto) 0.2 TH/MM3 Basophils # (Auto) 0.1 TH/MM3 CBC Comment DIFF FINAL Differential Comment Erythrocyte Sedimentation Rate 116 mm/hr Prothrombin Time 11.5 SEC Prothromb Time International Ratio 1.1 RATIO Activated Partial Thromboplast Time 27.7 SEC Blood Urea Nitrogen 146 MG/DL Creatinine 6.50 MG/DL Random Glucose 164 MG/DL Total Protein 7.8 GM/DL Albumin 3.5 GM/DL Calcium Level 9.1 MG/DL Alkaline Phosphatase 78 U/L Aspartate Amino Transf (AST/SGOT) 35 U/L Alanine Aminotransferase (ALT/SGPT) 23 U/L Total Bilirubin LESS THAN 0.1 MG/DL Sodium Level 139 MEQ/L Potassium Level 5.6 MEQ/L Chloride Level 106 MEQ/L Carbon Dioxide Level 21.0 MEQ/L Anion Gap 12 MEQ/L Estimat Glomerular Filtration Rate 9 ML/MIN Lipase 183 U/L Ethyl Alcohol Level LESS THAN 3 MG/DL Lactic Acid Level 2.1 mmol/L MDM Medical Decision Making Medical Screen Exam Complete: Yes Emergency Medical Condition: Yes Differential Diagnosis Colitis, enteritis, sepsis, dehydration, metabolic abnormality, C. difficile colitis, hypoglycemia Narrative Course 11:30 PM: I was informed by my nurse that the patient had a large dark tarry bowel movement. This was tested and is heme positive. CBC: WBC 12, hemoglobin 8.7, hematocrit 26.5, platelets 380, neutrophils 78.6%. CMP is remarkable for BUN 146, creatinine 6.5, GFR 9 which is acutely worsened since the patient was here in the emergency department yesterday. His potassium is 5.6. Bicarbonate is 21. Lactic acid is 2.1. ESR is 116. Chest x-ray: CONCLUSION: 1. Focal density of the lateral right lung base is immediately adjacent to cardiac lead and likely represents artifact. 2. Hyperaeration of the lungs indicating emphysema. Left heel x-ray: CONCLUSION: Evidence of cutaneous ulceration posteriorly at the heel. No radiographic evidence of osteomyelitis. Repeat CBC to hours after the first shows a hemoglobin of 8.0. Patient was given an amp of D50 shortly after arriving to the emergency department and repeat fingerstick 2 hours later is in the 300s. Case discussed with hospitalist Dr. Grant who will admit the patient to his service. Diagnosis Primary Impression: Acute renal failure Qualified Codes: N17.9 - Acute kidney failure, unspecified Additional Impressions: Hyperkalemia Melena Admitting Information Admitting Physician Requests: Admit Tom Hampton MD Feb 08, 2017 22:45
--- NOTE | 2017-02-08 23:03 | RADRPT ---
EXAM DATE/TIME: 02/08/2017 22:37 [facility] COMPARISON: CHEST SINGLE AP, September 18, 2016, 23:07. INDICATIONS : Short of breath MEDICAL HISTORY : Congestive heart failure. Hypercholesterolemia. Hypertension. Osteoarthritis, Arthritis. Cerebrovascu lar accident. COPD SURGICAL HISTORY : Right ankle surgery. ENCOUNTER: Initial ACUITY: 1 day PAIN SCORE: 0/10 LOCATION: Bilateral chest FINDINGS: 2 AP views of the chest. Prominent hyperaeration of the lungs indicating emphysema. Postsurgical find ings right lung apex. Scarring at lung apices. There is a density on one of the views of the lateral right lung base laterally. Lungs are otherwise clear. No evidence of pleural effusion or pneumothorax . CONCLUSION: 1. Focal density of the lateral right lung base is immediately adjacent to cardiac lead and likely re presents artifact. 2. Hyperaeration of the lungs indicating emphysema. Nathan Boyer MD on February 08, 2017 at 22:55 Board Certified Radiologist. This report was verified electronically.
[2017-02-08 23:25] LABS: AUTOMATED NEUTROPHIL # 9.4 TH/MM3 (1.8-7.7); BASOPHIL # 0.1 TH/MM3 (0-0.2); BASOPHIL % 0.8 % (0.0-2.0); EOSINOPHIL # 0.2 TH/MM3 (0-0.4); EOSINOPHIL % 1.4 % (0.0-4.0); HEMATOCRIT 26.4 % (39.0-51.0); HEMOGLOBIN 8.7 GM/DL (13.0-17.0); LYMPH % 14.6 % (9.0-44.0); LYMPHOCYTE # 1.8 TH/MM3 (1.0-4.8); MEAN CELL VOLUME 99.9 FL (80.0-100.0); MEAN CORPUSCULAR HEMOGLOBIN 32.8 PG (27.0-34.0); MEAN CORPUSCULAR HGB CONC 32.9 % (32.0-36.0); MEAN PLATELET VOLUME 9.2 FL (7.0-11.0); MONO % 4.6 % (0.0-8.0); MONOCYTE # 0.6 TH/MM3 (0-0.9); NEUT % 78.6 % (16.0-70.0); PLATELET COUNT 380 TH/MM3 (150-450); RED BLOOD COUNT 2.64 MIL/MM3 (4.50-5.90); RED CELL DISTRIBUTION WIDTH 15.4 % (11.6-17.2)
[2017-02-08] MEDS ORDERED: PANTOPRAZOLE INJ 80 MG in SODIUM CHLORIDE 0.9% INJ 35 ML IV ONE (23:32)
[2017-02-08 23:35] LABS: LACTIC ACID SEPSIS PROTOCOL 2.1 mmol/L (0.4-2.0)
[2017-02-08 23:42] LABS: ALKALINE PHOSPHATASE 78 U/L (45-117); TOTAL BILIRUBIN ADULT LESS THAN 0.1 MG/DL (0.2-1.0); TOTAL PROTEIN 7.8 GM/DL (6.4-8.2)
[2017-02-08 23:44] LABS: ALBUMIN 3.5 GM/DL (3.4-5.0); ALT (GPT) 23 U/L (12-78); AST (GOT) 35 U/L (15-37); BLOOD UREA NITROGEN 146 MG/DL (7-18); CALCIUM 9.1 MG/DL (8.5-10.1); CHLORIDE 106 MEQ/L (98-107); GLOMERULAR FILTRATION RATE 9 ML/MIN (>89); GLUCOSE,RANDOM 164 MG/DL (74-106); LIPASE 183 U/L (73-393); SODIUM (NA) 139 MEQ/L (136-145)
[2017-02-08 23:46] LABS: INTERNATIONAL NORMALIZED RATIO 1.1 RATIO; PROTHROMBIN TIME - PATIENT 11.5 SEC (9.8-11.6)
[2017-02-09] VITALS (40 sets, daily range): BP systolic 93–173; BP diastolic 54–79; PULSE 84–124; RESP 12–82; TEMP 98–99.3; O2SAT 18–100
--- NOTE | 2017-02-09 00:35 | RADRPT ---
EXAM DATE/TIME: 02/08/2017 23:46 [facility] COMPARISON: HEEL LEFT ([id number]), January 10, 2017, 23:58. INDICATIONS : Inflammation. MEDICAL HISTORY : Congestive heart failure. Hypercholesterolemia. Hypertension.Osteoarthritis, Arthritis. Cerebrovascul ar accident. COPD SURGICAL HISTORY : Right ankle surgery. ENCOUNTER: [facility] ACUITY: 1 month PAIN SCORE: 0/10 LOCATION: Left heel FINDINGS: 2 views left heel. Soft tissue defect is seen posteriorly. No evidence of bone erosion or abnormal pe riosteal reaction. No fracture. CONCLUSION: Evidence of cutaneous ulceration posteriorly at the heel. No radiographic evidence of osteomyelitis. Nathan Boyer MD on February 09, 2017 at 0:32 Board Certified Radiologist. This report was verified electronically.
[2017-02-09 00:42] LABS: MEAN CORPUSCULAR HEMOGLOBIN 33.8 PG (27.0-34.0); MEAN CORPUSCULAR HGB CONC 33.5 % (32.0-36.0); MEAN PLATELET VOLUME 9.2 FL (7.0-11.0); PLATELET COUNT 386 TH/MM3 (150-450); RED BLOOD COUNT 2.38 MIL/MM3 (4.50-5.90); RED CELL DISTRIBUTION WIDTH 15.6 % (11.6-17.2); WHITE BLOOD COUNT 10.9 TH/MM3 (4.0-11.0)
--- NOTE | 2017-02-09 01:23 | RADRPT ---
EXAM DATE/TIME: 02/09/2017 00:46 [facility] COMPARISON: No previous studies available for comparison. INDICATIONS : Frequent bowel movements with blood in stool. ORAL CONTRAST: No oral contrast ingested. RADIATION DOSE: 6.64 CTDIvol (mGy) MEDICAL HISTORY : Cerebrovascular disease. Hypertension. Chronic obstructive pulmonary disease.CHF. SURGICAL HISTORY : None. ENCOUNTER: Initial ACUITY: 3 days PAIN SCALE: 4/10 LOCATION: All quadrants. TECHNIQUE: Volumetric scanning of the abdomen and pelvis was performed. Using automated exposure control and ad justment of the mA and/or kV according to patient size, radiation dose was kept as low as reasonably achievable to obtain optimal diagnostic quality images. DICOM format image data is available electro nically for review and comparison. FINDINGS: LOWER LUNGS: Pulmonary emphysema. LIVER: Homogeneous density without lesion. There is no dilation of the biliary tree. No calcified gallston es. SPLEEN: Normal size without lesion. PANCREAS: Within normal limits. KIDNEYS: Atrophic right kidney. No renal or ureteral calculi identified. No evidence of hydronephrosis. ADRENAL GLANDS: Within normal limits. VASCULAR: There is no aortic aneurysm. Diffuse arterial calcification. BOWEL/MESENTERY: No evidence of bowel dilatation. No free air or free fluid. Appendix within normal limits. ABDOMINAL WALL: Within normal limits. RETROPERITONEUM: There is no lymphadenopathy. BLADDER: No wall thickening or mass. REPRODUCTIVE: Within normal limits. INGUINAL: There is no lymphadenopathy or hernia. MUSCULOSKELETAL: Degenerative findings of the lumbar spine. CONCLUSION: No acute findings in the abdomen and pelvis. Nathan Boyer MD on February 09, 2017 at 1:16 Board Certified Radiologist. This report was verified electronically.
[2017-02-09] MEDS ORDERED: CALCIUM GLUCONATE 10% 1 GM/10 ML VIAL SLOW IVP ONE (01:30)
[2017-02-09] MEDS ORDERED: RESP: ALBUTEROL 2.5 MG/3 ML NEB (SCH) NEB ONE (01:30)
[2017-02-09] MEDS ORDERED: DEXTROSE 50% IN WATER 50 ML VIAL(D50) IV PUSH ONE (01:30)
[2017-02-09] MEDS ORDERED: SODIUM BICARBONATE 8.4% SOLN 50 MEQ/50 ML VIAL SLOW IVP ONE (01:30)
[2017-02-09] MEDS ORDERED: SODIUM CHLOR 0.9% 1000 ML INJ 1,000 ML IV SCH (01:32)
--- NOTE | 2017-02-09 01:37 | HHI.HP ---
[facility] Service Critical Care Medicine Primary Care Physician Unknown Admission Diagnosis acute renal failure, melena, GI bleed, anemia, hyperkalemia Diagnosis: (1) Acute renal failure Diagnosis: Principal (2) Cellulitis of left foot Diagnosis: Secondary (3) Hyperkalemia Diagnosis: Principal (4) Ulcer of left foot Diagnosis: Principal (5) Melena Diagnosis: Principal (6) Chronic back pain Diagnosis: Principal (7) Tobacco abuse Diagnosis: Secondary (8) PVD (peripheral vascular disease) Diagnosis: Principal (9) Severe sepsis Diagnosis: Principal Chief Complaint: Multiple ER visits with diarrhea now with acute kidney injury Travel History International Travel<30 Days: No Contact w/Intl Traveler <30 Da: No Traveled to Known Affected Are: No Sepsis Criteria SIRS Criteria (2 or more): RR > 20 or PaCO2 < 32 Sepsis Criteria (SIRS+source): Infect source susp/known Severe Sepsis (+one): Lactate >2 Criteria Outcome: Meets severe sepsis criteria History of Present Illness This is a 56 yo male. Date of admission 02/09/2017. 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 Patient is residence of long-term. Patient presents to [facility] from [facility] with a several-day history of copious diarrhea. He since she's having partially 10 bowel movements daily for the past several days. He is actually been seen here at [facility] multiple times. Initially blood sugar 60s decreased to 27 admission. Receive 1 ampule D50 now on 300. BMP and CBC are performed which showed an anemia hemoglobin around 8 and a creatinine of 6.5. Baseline around 1.8. Discontinue liters normal saline wide open. Hemodynamically stable. CT abdomen/pelvis revealed no acute findings. Based on pantoprazole drip currently 8 mg an hour after she moles. We are asked to admit. Review of Systems Constitutional: COMPLAINS OF: Fatigue, Weight loss, DENIES: Fever, Weight gain Endocrine: DENIES: Polydipsia, Polyuria Eyes: DENIES: Blurred vision Ears, nose, mouth, throat: DENIES: Tinnitus Respiratory: DENIES: Apneas Cardiovascular: COMPLAINS OF: Lower Extremity Edema, DENIES: Chest pain, Dyspnea on Exertion Gastrointestinal: COMPLAINS OF: Black stools, Bloody stools, Diarrhea, Nausea, DENIES: Abdominal pain, Constipation Genitourinary: DENIES: Urgency Musculoskeletal: DENIES: Joint pain Integumentary: COMPLAINS OF: Abnormal pigmentation Hematologic/lymphatic: DENIES: Bruising Immunologic/allergic: DENIES: Eczema Neurologic: COMPLAINS OF: Abnormal gait, DENIES: Headache Psychiatric: COMPLAINS OF: Confusion Past Family Social History Allergies: Coded Allergies: No Known Allergies (Verified Allergy, Unknown, 02/08/17) Past Medical History Right frontoparietal CVA Right ICA occlusion Hypertension Dyslipidemia Osteoarthritis Esophagitis Chronic left heel ulcer Tobaccoism Chronic systolic heart failure ejection at 35-40% Past Surgical History Right thoracotomy/chest tube Right foot/ankle Left heel ulcer Right eyes surgery Reported Medications Ultram (Tramadol HCl) 50 Mg Tab 50 Mg PO Q4H PRN Protonix (Pantoprazole Sodium) 40 Mg Tab 40 Mg PO DAILY Hydrocodone-Acetamin 5-325 mg (Hydrocodone/Acetaminophen) 5 Mg-325 Mg Tablet 1 Tab PO Q4H PRN Lisinopril 10 Mg Tab 10 Mg PO DAILY Ferosul (Ferrous Sulfate) 325 Mg (65 Mg Iron) Tablet 325 Mg PO BID@12,17 Adult Aspirin EC Low Strength (Aspirin) 81 Mg Tabec 81 Mg PO DAILY Atorvastatin (Atorvastatin Calcium) 20 Mg Tab 20 Mg PO HS Coreg (Carvedilol) 3.125 Mg Tab 3.125 Mg PO Q12HR Furosemide 20 Mg Tab 20 Mg PO BID@09,18 Wheelchair Elevated Leg (Device) 1 Mis Mis Ea .ROUTE DIRECTED Active Ordered Medications Reviewed in EMR Family History Father with colon cancer and hypertension. Mother with diabetes. Social History 1 pack per day tobacco. Previously 12 beers daily. Currently sober. No IV drug use. Physical Exam Vital Signs Vital Signs Date Time Temp Pulse Resp B/P (MAP) Pulse Ox O2 Delivery O2 Flow Rate FiO2 02/09/17 01:33 98 16 93/57 (69) 100 Room Air 02/09/17 01:31 16 100 Room Air 02/08/17 21:42 97.1 88 18 128/75 (92) 100 Physical Exam GENERAL: 86-year-old male resting in bed in no acute distress SKIN: Warm and dry. Healing ulcer left heel with some erythem5 HEAD: Atraumatic. Normocephalic. EYES: Pupils equal and round. No scleral icterus. No injection or drainage. ENT: No nasal bleeding or discharge. Mucous membranes pink and moist. NECK: Trachea midline. No JVD. CARDIOVASCULAR: Regular rate and rhythm. S1, S2. No S4. RESPIRATORY: No accessory muscle use. Clear to auscultation. Breath sounds equal bilaterally. GASTROINTESTINAL: Abdomen soft, non-tender, nondistended. Active bowel sounds MUSCULOSKELETAL: Extremities left heel ulcer without drainage. Some erythema in left lower extremity with trace edema NEUROLOGICAL: Awake and alert. No obvious cranial nerve deficits. Strength 4-5 left upper and lower extremity. 5 out of 5 right upper and lower extremity. Normal sensation. Laboratory Laboratory Tests Test 02/08/17 22:59 02/08/17 23:05 02/09/17 00:10 White Blood Count 12.0 10.9 Red Blood Count 2.64 2.38 Hemoglobin 8.7 8.0 Hematocrit 26.4 24.0 Mean Corpuscular Volume 99.9 101.0 Mean Corpuscular Hemoglobin 32.8 33.8 Mean Corpuscular Hemoglobin Concent 32.9 33.5 Red Cell Distribution Width 15.4 15.6 Platelet Count 380 386 Mean Platelet Volume 9.2 9.2 Neutrophils (%) (Auto) 78.6 Lymphocytes (%) (Auto) 14.6 Monocytes (%) (Auto) 4.6 Eosinophils (%) (Auto) 1.4 Basophils (%) (Auto) 0.8 Neutrophils # (Auto) 9.4 Lymphocytes # (Auto) 1.8 Monocytes # (Auto) 0.6 Eosinophils # (Auto) 0.2 Basophils # (Auto) 0.1 CBC Comment DIFF FINAL Differential Comment Erythrocyte Sedimentation Rate 116 Prothrombin Time 11.5 Prothromb Time International Ratio 1.1 Activated Partial Thromboplast Time 27.7 Blood Urea Nitrogen 146 Creatinine 6.50 Random Glucose 164 Total Protein 7.8 Albumin 3.5 Calcium Level 9.1 Alkaline Phosphatase 78 Aspartate Amino Transf (AST/SGOT) 35 Alanine Aminotransferase (ALT/SGPT) 23 Total Bilirubin LESS THAN 0.1 Sodium Level 139 Potassium Level 5.6 Chloride Level 106 Carbon Dioxide Level 21.0 Anion Gap 12 Estimat Glomerular Filtration Rate 9 Lipase 183 Ethyl Alcohol Level LESS THAN 3 Lactic Acid Level 2.1 Date/Time Source Procedure Growth Status 02/08/17 23:10 Blood Peripheral Aerobic Blood Culture Pending Received 02/08/17 23:10 Blood Peripheral Anaerobic Blood Culture Pending Received Result Diagram: 02/09/17 0010 02/08/17 2259 Imaging Last Impressions Abdomen/Pelvis CT 02/09/17 0000 Signed Impressions: Service Date/Time: Thursday, February 09, 2017 00:46 - CONCLUSION: No acute findings in the abdomen and pelvis. Nathan Boyer MD Chest X-Ray 02/08/173 Signed Impressions: Service Date/Time: February 22:37 - CONCLUSION: 1. Focal density of the lateral right lung base is immediately adjacent to cardiac lead and likely represents artifact. 2. Hyperaeration of the lungs indicating emphysema. Nathan Boyer MD Foot X-Ray 02/08/17 0000 Signed Impressions: Service Date/Time: February 23:46 - CONCLUSION: Evidence of cutaneous ulceration posteriorly at the heel. No radiographic evidence of osteomyelitis. Nathan Boyer MD Septic Shock Reassessment Septic shock perfusion: reassessment completed Caprini VTE Risk Assessment Caprini VTE Risk Assessment: Mod/High Risk (score >= 2) VTE Pharm Contraindication: Active bleeding Caprini Risk Assessment Model Point Value = 1 Point Value = 2 Point Value = 3 Point Value = 5 Age 41-60 Minor surgery BMI > 25 kg/m2 Swollen legs Varicose veins or History of unexplained or recurrent spontaneous Oral contraceptives or hormone replacement Sepsis (< 1 month) Serious lung disease, including pneumonia (< 1 month) Abnormal pulmonary function Acute myocardial infarction Congestive heart failure (< 1 month) History of inflammatory bowel disease Medical patient at bed rest Age 61-74 Arthroscopic surgery Major open surgery (> 45 min) Laparoscopic surgery (> 45 min) Malignancy Confined to bed (> 72 hours) Immobilizing plaster cast Central venous access Age >= 75 History of VTE Family history of VTE Factor V Leiden Prothrombin [id number] Lupus anticoagulant Anticardiolipin antibodies Elevated serum homocysteine Heparin-induced thrombocytopenia Other congenital or acquired thrombophilia Stroke (< 1 month) Elective arthroplasty Hip, pelvis, or leg fracture Acute spinal cord injury (< 1 month) Prophylaxis Regimen Total Risk Factor Score Risk Level Prophylaxis Regimen 0-1 Low Early ambulation 2 Moderate Order ONE of the following: *Sequential Compression Device (SCD) *Heparin 5000 units SQ BID 3-4 Higher Order ONE of the following medications: *Heparin 5000 units SQ TID *Enoxaparin/Lovenox 40 mg SQ daily (WT < 150 kg, CrCl > 30 mL/min) *Enoxaparin/Lovenox 30 mg SQ daily (WT < 150 kg, CrCl > 10-29 mL/min) *Enoxaparin/Lovenox 30 mg SQ BID (WT < 150 kg, CrCl > 30 mL/min) AND/OR *Sequential Compression Device (SCD) 5 or more Highest Order ONE of the following medications: *Heparin 5000 units SQ TID (Preferred with Epidurals) *Enoxaparin/Lovenox 40 mg SQ daily (WT < 150 kg, CrCl > 30 mL/min) *Enoxaparin/Lovenox 30 mg SQ daily (WT < 150 kg, CrCl > 10-29 mL/min) *Enoxaparin/Lovenox 30 mg SQ BID (WT < 150 kg, CrCl > 30 mL/min) AND *Sequential Compression Device (SCD) Assessment and Plan Assessment and Plan Neuro/Psych: History of right frontoparietal CVA with left-sided weakness History of right ICA occlusion History of EtOH Currently holding aspirin 81 mg daily light of GI bleed Acetaminophen 650 mg every 4 hours when necessary fever Hydrocodone/acetaminophen 5/25 one tablet every 4 hours. Pain 1-5 Morphine sulfate 2 mg IV distress. Pain 6-10 CV: Chronic systolic heart failure ejection fraction 35-40% Hypertension Dyslipidemia Echocardiogram 1999 revealed EF 35 4%. Septal hypokinesis. Dementia pressures 23 mmHg. Currently holding carvedilol dose 3.125 mg twice a day and lisinopril 10mill grams daily light of hypotension/acute kidney injury Holding atorvastatin 20 by mouth daily for dyslipidemia. Resume clinically indicated Received 2 L normal saline ED. Currently normal saline at 84 cc an hour. Furosemide 20 no grams twice a day Resp: Ongoing tobaccoism Nasal cannula to maintain saturations greater or equal to 92% Incentive spirometry while awake Chest x-ray revealed no acute cardio point findings chest emphysematous changes only Albuterol/ipratropium aerosols every 6 hours and albuterol nebs every 2 hours. Dyspnea Tobacco cessation booklet provided for cessation GI: Colitis/possible GI bleed Esophagitis CT abdomen/pelvis 02/09 revealed no acute findings Pantoprazole drip currently 8 mg an hour Gastroneurology consultation : Millard catheter if indicated for accurate I's and O's in a critically ill patient Endo: Hypoglycemia hyperglycemia Sliding-scale insulin with Accu-Cheks to maintain euglycemia/ every 6 hours low regimen Novulin R Renal: Acute kidney injury/chronic kidney disease stage IIIa Renal ultrasound/urine electrolytes and eosinophils pending Recheck BMP Nephrology consultation Avoid nephrotoxic drugs Monitor urine output Accurate I's and O's Heme: Macrocytic anemia Does not meet transfusion thresholds at this time Coags within normal limits Continue ferrous sulfate 325 mg twice a day ID: Possible C. difficile colitis C. difficile currently pending Blood cultures 2 ordered. Results pending Monitor for infection MSK: Osteoporosis/osteoarthritis Left heel ulcer PT evaluate and treat Ankle x-ray Revealed no acute findings FEN: Hyperkalemia Received calcium gluconate, D50/insulin/bicarbonate and albuterol aerosols. Recheck in 3 hours. Access - Utilize peripheral IV. Central line if indicated Prophylaxis - GI - pantoprazole - DVT - SCD/holding pharmacological prophylaxis with colitis/possible lower GI bleed Level II admission Code Status Full code Discussed Condition With Dr. Hampton/ED physician. Patient. Care plan discussed and all questions answered. Problem Qualifiers (1) Acute renal failure: Qualified Codes: N17.9 - Acute kidney failure, unspecified (2) Ulcer of left foot: Qualified Codes: L97.522 - Non-pressure chronic ulcer of other part of left foot with fat layer exposed (3) Chronic back pain: Qualified Codes: M54.5 - Low back pain; G89.29 - Other chronic pain Bo Grant MD Feb 09, 2017 01:37
[2017-02-09 01:44] LABS: AMORPHOUS SEDIMENT, URINE RARE; BILIRUBIN, URINE NEG (NEG); BLOOD, URINE TRACE (NEG); GLUCOSE,URINE 150 mg/dL (NEG); KETONE, URINE NEG (NEG); MUCUS URINE FEW /lpf (OCC); NITRITE,URINE NEG (NEG); PH, URINE 5.5 (5.0-8.5); SQUAMOUS EPITHELIAL CELL URINE <1 /hpf (0-5); URINE COLOR LIGHT-YELLOW (YELLW/STRAW); URINE LEUKOCYTE ESTERASE NEG (NEG)
[2017-02-09] MEDS ORDERED: SODIUM CHLOR 0.9% 1000 ML INJ 1,000 ML IV ONE ×2 (01:45)
[2017-02-09] MEDS ORDERED: ONDANSETRON HCL 4 MG/2 ML VIAL IV PUSH PRN (01:45)
[2017-02-09] MEDS ORDERED: CALCIUM GLUCONATE INJ 1 GM in DEXTROSE 5% IN WATER 100ML INJ 100 ML IV ONE ×2 (01:45)
[2017-02-09] MEDS ORDERED: RESP: ALBUTEROL 2.5 MG/3 ML NEB (PRN) INH (01:45)
[2017-02-09] MEDS ORDERED: SODIUM CHLORIDE 0.9% FLUSH 10 ML FLUSH IV FLUSH PRN (01:45)
[2017-02-09] MEDS ORDERED: MISCELLANEOUS NURSING INFORMATION XX SCH (01:45)
[2017-02-09] MEDS ORDERED: CHLORHEXIDINE GLUCONATE 2 % 1 PACK (2 CLOTHS) TOP PRN (01:45)
[2017-02-09] MEDS ORDERED: INSULIN HUMAN REGULAR 1,000 UNITS/10 ML VIAL IV PUSH ONE (01:45)
[2017-02-09 01:50] LABS: CREATININE, RANDOM URINE 80.6 MG/DL
[2017-02-09] MEDS: PANTOPRAZOLE INJ 80 MG in SODIUM CHLORIDE 0.9% INJ 100 ML IV SCH ×3 (02:05→23:21)
[2017-02-09] MEDS ORDERED: GLUCAGON 1 MG/ML VIAL OTHER PRN (02:15)
[2017-02-09] MEDS: DEXTROSE 50% IN WATER 50 ML VIAL(D50) IV PUSH PRN ×2 (02:52→13:17)
[2017-02-09] MEDS: RESP: ALBUTEROL 2.5 MG/IPRATROPIUM 0.5 MG NEB (SCH) INH ×4 (03:29→21:35)
[2017-02-09] MEDS: CHLORHEXIDINE GLUCONATE 2 % 1 PACK (2 CLOTHS) TOP SCH (03:58)
[2017-02-09 05:23] LABS: FOLATE 9.6 NG/ML (3.1-17.5)
[2017-02-09] MEDS: MORPHINE SULFATE 2 MG/ML INJ IV PUSH PRN ×3 (06:06→23:21)
[2017-02-09] MEDS: INSULIN NovoLIN REGULAR SUPPLEMENTAL SCALE SQ SCH ×4 (08:00→19:51)
[2017-02-09] MEDS ORDERED: PANTOPRAZOLE SOD 40 MG DELAYED RELEASE TAB PO SCH (09:00)
[2017-02-09] MEDS: SODIUM CHLORIDE 0.9% FLUSH 10 ML FLUSH IV FLUSH SCH ×2 (10:33→19:50)
--- NOTE | 2017-02-09 10:54 | RADRPT ---
EXAM DATE/TIME: 02/09/2017 08:36 [place] COMPARISON: US KIDNEY/RENAL/BLADDER, September 27, 2016, 14:25. INDICATIONS : Increased BUN/creatinine. MEDICAL HISTORY : Hypercholesterolemia. Arthritis. Osteoarthritis. CVA. Confusion. HTN. COPD. Melena. Gait problems. An emia. Depression. Anxiety. SURGICAL HISTORY : Right retina repaired. Right ankle surgery with screws and plate. Blood transfusions. ENCOUNTER: Subsequent ACUITY: 1 day PAIN SCORE: 6/10 LOCATION: Bilateral flank MEASUREMENTS: RIGHT KIDNEY: 6.4 x 1.9 x 2.3 cm LEFT KIDNEY: 9.2 x 4.7 x 4.6 cm FINDINGS: RIGHT KIDNEY: There is a small right kidney with increased echogenicity characteristic of medical renal disease. LEFT KIDNEY: Renal cortex is normal in thickness and echotexture. No hydronephrosis, stone, or mass. BLADDER: A Millard catheter is present within the bladder which does not allow for evaluation. CONCLUSION: 1. Echogenic small right kidney characteristic of medical renal disease Josiah Membreno MD on February 09, 2017 at 10:51 Board Certified Radiologist. This report was verified electronically.
[2017-02-09] MEDS: ACETAMINOPHEN/HYDROcodone 325 MG/5 MG TAB PO PRN ×2 (10:57→19:52)
--- NOTE | 2017-02-09 11:16 | PD.CONS ---
HPI History of Present Illness This is a 56 year old admission to the hospital and early 02/09/17 with a 2-3 day history of uncontrolled copious diarrhea up to 10 times a day according to the note. Patient is a prison resident according to the record and was seen per Dr. Mosley and had EGD on 01/12/17 showing esophagitis. Colonoscopy was attempted but patient had solid stool so test was canceled. Diarrhea has subsided for now, CT of the abdomen was done and was in normal limits. Initial hemoglobin was 8.7 now decreased to 8, LFTs and bilirubin low normal ranges. C. difficile is pending. Patient is awake and able to answer simple questions, having some mild chills, very frail thin build. There is no family present to discuss any further history. Patient has been placed on pantoprazole drip. Patient has history of CVA, esophagitis, and appears to be bedbound most of the time and is a poor historian. No obvious nausea or vomiting, no known dysphagia. PFSH Past Medical History Esophagitis Right CVA Hypertension hyperlipidemia Chronic tobacco use Chronic wounds lower extremities, left heel Chronic systolic heart failure Past Surgical History Right thoracotomy chest tube Right eye surgery Coded Allergies: No Known Allergies (Verified Allergy, Unknown, 02/08/17) Medications Administered Medications Medications (Trade) Dose Ordered Sig/Mohit Route PRN Reason Start Time Stop Time Status Last Admin Dose Admin Pantoprazole Sodium 80 mg/ Sodium Chloride 100 ml @ 10 mls/hr Q10H IV 02/08/17 23:32 02/09/17 10:33 Sodium Chloride 1,000 ml @ 84 mls/hr [id number] IV 02/09/17 01:32 02/09/17 03:21 Sodium Chloride (NS Flush) 2 ml BID IV FLUSH 02/09/17 09:00 02/09/17 10:33 Acetaminophen/ Hydrocodone Bitart ([place] 5-325 Mg) 1 tab Q4H PRN PO PAIN SCALE 1 TO 5 02/09/17 01:45 02/09/17 10:57 Morphine Sulfate (Morphine Inj) 2 mg Q2H PRN IV PUSH PAIN SCALE 6-10 02/09/17 01:45 02/09/17 06:06 Albuterol/ Ipratropium (Duoneb Neb) 1 ampule Q6HR NEB INH 02/09/17 04:00 02/09/17 08:20 Miscellaneous Information 1 Q361D XX 02/09/17 01:45 02/09/17 01:45 Chlorhexidine Gluconate (Chlorhexidine 2% Cloth) 3 pack Taper DAILY@04 TOP 02/09/17 04:00 02/05/18 03:59 02/09/17 03:58 Dextrose (D50w (Vial) Inj) 50 ml UNSCH PRN IV PUSH HYPOGLYCEMIA-SEE COMMENTS 02/09/17 02:15 02/09/17 02:52 Social History Tobacco abuse No current alcohol use GI Exam Vitals I&O Vital Signs Date Time Temp Pulse Resp B/P (MAP) Pulse Ox O2 Delivery O2 Flow Rate FiO2 02/09/17 10:30 107 15 126/58 (80) 100 02/09/17 10:00 116 30 124/68 (86) 100 02/09/17 09:30 108 49 130/56 (80) 100 02/09/17 09:00 124 21 168/78 (108) 100 02/09/17 08:31 104 15 158/70 (99) 100 02/09/17 08:20 100 02/09/17 08:01 98.3 111 28 126/59 (81) 100 02/09/17 06:00 104 02/09/17 04:00 98.1 103 33 161/73 (102) 100 02/09/17 04:00 103 02/09/17 03:33 100 02/09/17 02:00 98.0 101 23 147/67 (93) 100 02/09/17 01:44 100 21 02/09/17 01:33 98 16 93/57 (69) 100 Room Air 02/09/17 01:31 16 100 Room Air 02/08/17 21:42 97.1 88 18 128/75 (92) 100 I/O 02/08/17 02/08/17 02/08/17 02/09/17 02/09/17 02/09/17 07:00 15:00 23:00 07:00 15:00 23:00 Intake Total 3145 ml Output Total 625 ml Balance 2520 ml Intake IV Total 3145 ml Output Urine Total 625 ml # Bowel Movements 1 Imaging Last Impressions Abdomen/Pelvis CT 02/09/17 0000 Signed Impressions: Service Date/Time: Thursday, February 09, 2017 00:46 - CONCLUSION: No acute findings in the abdomen and pelvis. Nathan Boyer MD Chest X-Ray 02/08/17 2233 Signed Impressions: Service Date/Time: February 22:37 - CONCLUSION: 1. Focal density of the lateral right lung base is immediately adjacent to cardiac lead and likely represents artifact. 2. Hyperaeration of the lungs indicating emphysema. Nathan Boyer MD Foot X-Ray 02/08/17 0000 Signed Impressions: Service Date/Time: February 23:46 - CONCLUSION: Evidence of cutaneous ulceration posteriorly at the heel. No radiographic evidence of osteomyelitis. Nathan Boyer MD Laboratory Test 02/08/17 22:59 02/08/17 23:05 02/09/17 00:10 02/09/17 01:23 White Blood Count 12.0 TH/MM3 10.9 TH/MM3 Red Blood Count 2.64 MIL/MM3 2.38 MIL/MM3 Hemoglobin 8.7 GM/DL 8.0 GM/DL Hematocrit 26.4 % 24.0 % Mean Corpuscular Volume 99.9 FL 101.0 FL Mean Corpuscular Hemoglobin 32.8 PG 33.8 PG Mean Corpuscular Hemoglobin Concent 32.9 % 33.5 % Red Cell Distribution Width 15.4 % 15.6 % Platelet Count 380 TH/MM3 386 TH/MM3 Mean Platelet Volume 9.2 FL 9.2 FL Neutrophils (%) (Auto) 78.6 % Lymphocytes (%) (Auto) 14.6 % Monocytes (%) (Auto) 4.6 % Eosinophils (%) (Auto) 1.4 % Basophils (%) (Auto) 0.8 % Neutrophils # (Auto) 9.4 TH/MM3 Lymphocytes # (Auto) 1.8 TH/MM3 Monocytes # (Auto) 0.6 TH/MM3 Eosinophils # (Auto) 0.2 TH/MM3 Basophils # (Auto) 0.1 TH/MM3 CBC Comment DIFF FINAL Differential Comment Erythrocyte Sedimentation Rate 116 mm/hr Prothrombin Time 11.5 SEC Prothromb Time International Ratio 1.1 RATIO Activated Partial Thromboplast Time 27.7 SEC Blood Urea Nitrogen 146 MG/DL Creatinine 6.50 MG/DL Random Glucose 164 MG/DL Total Protein 7.8 GM/DL Albumin 3.5 GM/DL Calcium Level 9.1 MG/DL Alkaline Phosphatase 78 U/L Aspartate Amino Transf (AST/SGOT) 35 U/L Alanine Aminotransferase (ALT/SGPT) 23 U/L Total Bilirubin LESS THAN 0.1 MG/DL Sodium Level 139 MEQ/L Potassium Level 5.6 MEQ/L Chloride Level 106 MEQ/L Carbon Dioxide Level 21.0 MEQ/L Anion Gap 12 MEQ/L Estimat Glomerular Filtration Rate 9 ML/MIN Lipase 183 U/L Ethyl Alcohol Level LESS THAN 3 MG/DL Lactic Acid Level 2.1 mmol/L Blood Smear Pathologist Review Urine Color LIGHT-YELLOW Urine Turbidity CLEAR Urine pH 5.5 Urine Specific [place] 1.010 Urine Protein NEG mg/dL Urine Glucose (UA) 150 mg/dL Urine Ketones NEG mg/dL Urine Occult Blood TRACE Urine Nitrite NEG Urine Bilirubin NEG Urine Urobilinogen LESS THAN 2.0 MG/DL Urine Leukocyte Esterase NEG Urine RBC LESS THAN 1 /hpf Urine WBC LESS THAN 1 /hpf Urine Squamous Epithelial Cells <1 /hpf Urine Amorphous Sediment RARE Urine Mucus FEW /lpf Microscopic Urinalysis Comment CATH-CULT NOT IND Urine Eosinophils NONE SEEN /HPF Urine Random Creatinine 80.6 MG/DL Urine Random Sodium 41 MEQ/L Test 02/09/17 02:20 02/09/17 03:56 Nasal Screen MRSA (PCR) MRSA NOT DETECTED Potassium Level 4.3 MEQ/L Lactic Acid Level 1.8 mmol/L Vitamin B12 Level 1092 PG/ML Folate 9.6 NG/ML Thyroid Stimulating Hormone 3rd Gen 0.248 uIU/ML Date/Time Source Procedure Growth Status 02/08/17 23:10 Blood Peripheral Aerobic Blood Culture Pending Received 02/08/17 23:10 Blood Peripheral Anaerobic Blood Culture Pending Received Physical Examination HEENT: Pupils round and reactive to light; normocephalic; atraumatic; no jaundice. Throat is clear. NECK: Neck is supple, no JVD, no lymphadenopathy. CHEST: Chest is clear to auscultation and percussion. CARDIAC: Regular rate and rhythm with no murmur gallop or rubs. ABDOMEN: Soft, nondistended, nontender; no hepatosplenomegaly; bowel sounds are present in all four quadrants. EXTREMITIES: No clubbing, cyanosis, or edema. SKIN: Normal; no rash; no jaundice. TRAY SETTER: No focal deficits; alert and oriented times three. Assessment and Plan Assessment: (1) Diarrhea, unspecified ICD Codes: R19.7 - Diarrhea, unspecified (2) Melena ICD Codes: K92.1 - Melena Status: Acute Plan Acute onset uncontrolled diarrhea for the last several days which appears to be resolving could be viral versus bacterial versus irritable bowel syndrome or colitis We'll check stool studies, C. difficile has been ordered and pending, check for infection, rotovirus, enteric pathogens IV Flagyl 500 every 8hr Zosyn IV low-dose according to renal function IV PPI drip IV hydration Monitor intake and output as well as number of stools Hemoccult stools Call for any acute bleeding Plan of care will be based on patient's symptoms and needs, he will need a colonoscopy, time to be announced This plan of care has been discussed with , this note is written on his behalf Mariaelena Bishop Feb 09, 2017 11:16
--- NOTE | 2017-02-09 11:22 | PD.CONS ---
HPI Service Nephrology Consult Requested By Reason for Consult Acute Renal Failure Primary Care Physician Unknown History of Present Illness This is a 56 y/o male admitted for weakness and severe diarrhea. He was started on Protonix gtt for heme positive stools. 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 His creatinine last admission was 1.5. On admission it is 6.5. He was hyperkalemic but that has improved to K 4.3. He reports having upwards of 10 BMs per day. Denies pain. He is non olgiruc with a flaherty. He is tachycardic, blood pressure is acceptable but was borderline low on admission. We were consulted to assist with management. (Kelsey Short) Review of Systems Constitutional: COMPLAINS OF: Fatigue Cardiovascular: DENIES: Chest pain, Dyspnea on Exertion Gastrointestinal: COMPLAINS OF: Black stools, Diarrhea, DENIES: Constipation, Nausea, Vomiting Musculoskeletal: COMPLAINS OF: Joint pain, Muscle aches, Stiffness (Kelsey Short) Past Family Social History Allergies: Coded Allergies: No Known Allergies (Verified Allergy, Unknown, 02/08/17) Past Medical History Right frontoparietal CVA; left hemiparesis Right ICA occlusion Hypertension Dyslipidemia Osteoarthritis Esophagitis Chronic left heel ulcer Tobaccoism Chronic systolic heart failure ejection at 35-40% Past Surgical History Right thoracotomy/chest tube Right foot/ankle Left heel ulcer Right eyes surgery Reported Medications Ultram (Tramadol HCl) 50 Mg Tab 50 Mg PO Q4H PRN Protonix (Pantoprazole Sodium) 40 Mg Tab 40 Mg PO DAILY Hydrocodone-Acetamin 5-325 mg (Hydrocodone/Acetaminophen) 5 Mg-325 Mg Tablet 1 Tab PO Q4H PRN Lisinopril 10 Mg Tab 10 Mg PO DAILY Ferosul (Ferrous Sulfate) 325 Mg (65 Mg Iron) Tablet 325 Mg PO BID@12,17 Adult Aspirin EC Low Strength (Aspirin) 81 Mg Tabec 81 Mg PO DAILY Atorvastatin (Atorvastatin Calcium) 20 Mg Tab 20 Mg PO HS Coreg (Carvedilol) 3.125 Mg Tab 3.125 Mg PO Q12HR Furosemide 20 Mg Tab 20 Mg PO BID@09,18 Wheelchair Elevated Leg (Device) 1 Mis Mis Ea .ROUTE DIRECTED Active Ordered Medications Current Medications Medications (Trade) Dose Ordered Sig/Mohit Route Start Time Stop Time Status Last Admin Pantoprazole Sodium 80 mg/ Sodium Chloride 100 ml @ 10 mls/hr Q10H IV 02/08/17 23:32 02/09/17 10:33 (Ferrous Sulfate) 325 mg BID@12,17 PO 02/09/17 12:00 Sodium Chloride 1,000 ml @ 84 mls/hr [id number] IV 02/09/17 01:32 02/09/17 03:21 (NS Flush) 2 ml UNSCH PRN IV FLUSH 02/09/17 01:45 (NS Flush) 2 ml BID IV FLUSH 02/09/17 09:00 02/09/17 10:33 (Tylenol) 650 mg Q6H PRN PO 02/09/17 01:45 ([place] 5-325 Mg) 1 tab Q4H PRN PO 02/09/17 01:45 02/09/17 10:57 (Morphine Inj) 2 mg Q2H PRN IV PUSH 02/09/17 01:45 02/09/17 06:06 (Zofran Inj) 4 mg Q6H PRN IV PUSH 02/09/17 01:45 (Duoneb Neb) 1 ampule Q6HR NEB INH 02/09/17 04:00 02/09/17 08:20 (Albuterol Neb) 2.5 mg Q2HR NEB PRN INH 02/09/17 01:45 Miscellaneous Information 1 Q361D XX 02/09/17 01:45 02/09/17 01:45 (Chlorhexidine 2% Cloth) 3 pack Taper DAILY@04 TOP 02/09/17 04:00 02/05/18 03:59 02/09/17 03:58 (Chlorhexidine 2% Cloth) 3 pack UNSCH PRN TOP 02/09/17 01:45 (D50w (Vial) Inj) 50 ml UNSCH PRN IV PUSH 02/09/17 02:15 02/09/17 02:52 (Glucagon Inj) 1 mg UNSCH PRN OTHER 02/09/17 02:15 (NovoLIN R SUPPLEMENTAL SCALE) 1 ACHS SLIDING SCALE SQ 02/09/17 08:00 Family History Non contributory Social History Daily Smoker No ETOH Lives in [facility] Full Code (Kelsey Short Paulino HAMMOND) Physical Exam Vital Signs Vital Signs Date Time Temp Pulse Resp B/P (MAP) Pulse Ox O2 Delivery O2 Flow Rate FiO2 02/09/17 10:30 107 15 126/58 (80) 100 02/09/17 10:00 116 30 124/68 (86) 100 02/09/17 09:30 108 49 130/56 (80) 100 02/09/17 09:00 124 21 168/78 (108) 100 02/09/17 08:31 104 15 158/70 (99) 100 02/09/17 08:20 100 02/09/17 08:01 98.3 111 28 126/59 (81) 100 02/09/17 06:00 104 02/09/17 04:00 98.1 103 33 161/73 (102) 100 02/09/17 04:00 103 02/09/17 03:33 100 02/09/17 02:00 98.0 101 23 147/67 (93) 100 02/09/17 01:44 100 21 02/09/17 01:33 98 16 93/57 (69) 100 Room Air 02/09/17 01:31 16 100 Room Air 02/08/17 21:42 97.1 88 18 128/75 (92) 100 Physical Exam Chronically ill male Left hemiparesis; significant muscle atrophy S1/S2, Tachy 110s, no rubs or murmurs Lungs clear Abdomen flat Upper and Lower left ext contracted Skin intact Laboratory Laboratory Tests Test 02/08/17 22:59 02/08/17 23:05 02/09/17 00:10 02/09/17 01:23 White Blood Count 12.0 10.9 Red Blood Count 2.64 2.38 Hemoglobin 8.7 8.0 Hematocrit 26.4 24.0 Mean Corpuscular Volume 99.9 101.0 Mean Corpuscular Hemoglobin 32.8 33.8 Mean Corpuscular Hemoglobin Concent 32.9 33.5 Red Cell Distribution Width 15.4 15.6 Platelet Count 380 386 Mean Platelet Volume 9.2 9.2 Neutrophils (%) (Auto) 78.6 Lymphocytes (%) (Auto) 14.6 Monocytes (%) (Auto) 4.6 Eosinophils (%) (Auto) 1.4 Basophils (%) (Auto) 0.8 Neutrophils # (Auto) 9.4 Lymphocytes # (Auto) 1.8 Monocytes # (Auto) 0.6 Eosinophils # (Auto) 0.2 Basophils # (Auto) 0.1 CBC Comment DIFF FINAL Differential Comment Erythrocyte Sedimentation Rate 116 Prothrombin Time 11.5 Prothromb Time International Ratio 1.1 Activated Partial Thromboplast Time 27.7 Blood Urea Nitrogen 146 Creatinine 6.50 Random Glucose 164 Total Protein 7.8 Albumin 3.5 Calcium Level 9.1 Alkaline Phosphatase 78 Aspartate Amino Transf (AST/SGOT) 35 Alanine Aminotransferase (ALT/SGPT) 23 Total Bilirubin LESS THAN 0.1 Sodium Level 139 Potassium Level 5.6 Chloride Level 106 Carbon Dioxide Level 21.0 Anion Gap 12 Estimat Glomerular Filtration Rate 9 Lipase 183 Ethyl Alcohol Level LESS THAN 3 Lactic Acid Level 2.1 Blood Smear Pathologist Review Urine Color LIGHT-YELLOW Urine Turbidity CLEAR Urine pH 5.5 Urine Specific [place] 1.010 Urine Protein NEG Urine Glucose (UA) 150 Urine Ketones NEG Urine Occult Blood TRACE Urine Nitrite NEG Urine Bilirubin NEG Urine Urobilinogen LESS THAN 2.0 Urine Leukocyte Esterase NEG Urine RBC LESS THAN 1 Urine WBC LESS THAN 1 Urine Squamous Epithelial Cells <1 Urine Amorphous Sediment RARE Urine Mucus FEW Microscopic Urinalysis Comment CATH-CULT NOT IND Urine Eosinophils NONE SEEN Urine Random Creatinine 80.6 Urine Random Sodium 41 Test 02/09/17 02:20 02/09/17 03:56 Nasal Screen MRSA (PCR) MRSA NOT DETECTED Potassium Level 4.3 Lactic Acid Level 1.8 Vitamin B12 Level 1092 Folate 9.6 Thyroid Stimulating Hormone 3rd Gen 0.248 Date/Time Source Procedure Growth Status 02/08/17 23:10 Blood Peripheral Aerobic Blood Culture Pending Received 02/08/17 23:10 Blood Peripheral Anaerobic Blood Culture Pending Received (Kelsey Short) Result Diagram: 02/09/17 0010 02/09/17 0356 Imaging Last 72 hours Impressions Renal Ultrasound 02/09/17 0000 Signed Impressions: Service Date/Time: Thursday, February 09, 2017 08:36 - CONCLUSION: 1. Echogenic small right kidney characteristic of medical renal disease Josiah Membreno MD Abdomen/Pelvis CT 02/09/17 0000 Signed Impressions: Service Date/Time: Thursday, February 09, 2017 00:46 - CONCLUSION: No acute findings in the abdomen and pelvis. Nathan Boyer MD Chest X-Ray 02/08/17 2233 Signed Impressions: Service Date/Time: February 22:37 - CONCLUSION: 1. Focal density of the lateral right lung base is immediately adjacent to cardiac lead and likely represents artifact. 2. Hyperaeration of the lungs indicating emphysema. Nathan Boyer MD Foot X-Ray 02/08/17 0000 Signed Impressions: Service Date/Time: February 23:46 - CONCLUSION: Evidence of cutaneous ulceration posteriorly at the heel. No radiographic evidence of osteomyelitis. Nathan Boyer MD (Kelsey Short) Assessment and Plan Problem List: (1) Acute renal failure ICD Codes: N17.9 - Acute kidney failure, unspecified Status: Acute Plan: His baseline creatinine is 1.5 SHANTELLE may be due to prerenal azotemia, may have progressed to ATN FeNa is not low Imaging negative for obstruction Agree with IVF, appears dry, NS @ 84cc/hr, given hx of CHF Monitor urine output, currently non oliguric. UA without proteinuria Repeat labs in AM; avoid nephrotoxic agents. (2) Hyperkalemia ICD Codes: E87.5 - Hyperkalemia Status: Acute Plan: Due to reduction in GFR Improved, continue to monitor (3) Diarrhea, unspecified ICD Codes: R19.7 - Diarrhea, unspecified Plan: May need to rule out infectious diarrhea, C diff given hx Also reportedly has GI bleed (4) Melena ICD Codes: K92.1 - Melena Status: Acute Plan: On Protonix gtt GI to see (5) Chronic anemia ICD Codes: D64.9 - Anemia, unspecified Status: Acute Plan: Possibly exacerbated by GI bleed check iron profile, transfuse if needed (6) Leukocytosis ICD Codes: D72.829 - Elevated white blood cell count, unspecified Status: Acute Plan: Improved, lactic acid is normal May be reactive or due to hemoconcentration (Kelsey Short) Assessment and Plan patient was seen and examined. Agree with above assessment and plan. Continue fluids. Needs blood transfusion. GI evaluation. Monitor urine output. (Radhames Allison MD) Problem Qualifiers (1) Acute renal failure: Qualified Codes: N17.9 - Acute kidney failure, unspecified Kelsey Short Feb 09, 2017 11:22 Radhames Allison MD Feb 09, 2017 14:18
[2017-02-09 11:29] LABS: HEMATOCRIT 19.3 % (39.0-51.0); HEMOGLOBIN 6.2 GM/DL (13.0-17.0)
[2017-02-09] MEDS: metroNIDAZOLE 500 MG INJ 100 ML IV SCH ×2 (13:07→19:51)
[2017-02-09] MEDS: FERROUS SULFATE 325 MG (65 MG ELEMENTAL IRON) TAB PO SCH ×2 (13:19→17:57)
[2017-02-09] MEDS ORDERED: SODIUM CHLOR 0.9% 250 ML INJ 250 ML IV ONE (14:15)
[2017-02-09] MEDS: DEXT 5%-NACL 0.9% 1000 ML INJ 1,000 ML IV SCH (14:15)
[2017-02-09 14:57] LABS: HEMATOCRIT 18.9 % (39.0-51.0)
[2017-02-09] MEDS: PIPERACIL-TAZO 2.25 GM PREMIX 50 ML IV SCH ×2 (14:58→23:21)
--- NOTE | 2017-02-09 15:22 | PD.WCN.NOT ---
Wound Consult Description: Wound consult ordered by Dr.Biga SHORE for Left Heel Communicated with: [facility], Dr.Nemani SHORE Recommendation: 1) Cleanse Left Calcaneus with normal saline pat dry 2) Apply 2mm Santyl to wound base then apply fluffed moisten gauze 3) Secure with dry dressing/ rolled gauze date and sign 4) Follow up with General surgeon or podiatry Additional Information: Patient seen today on 5th floor [facility] by editorial writer Funmilayo HERNÁNDEZ [facility] unavailable at this time.Dressing removed from Left Calcaneus to reveal Soft Black adhered eschar measuring 2.3cm x 2.2cm x Eschar.Scant Purulent drainage noted when Eschar palpated.Periwound dry intact.Wound cleansed with normal saline pat dry. Moisten gauze applied to wound base covered with dry dressing till Santyl available.Funmilayo HERNÁNDEZ [facility] notified of wound care orders and will apply Santyl when available.Consult for podiatry ordered. Zion Blanco [facility] Feb 09, 2017 15:22
[2017-02-09 15:57] LABS: BICARBONATE 21.1 MEQ/L (21.0-32.0); CALCIUM 8.2 MG/DL (8.5-10.1); CREATININE 4.24 MG/DL (0.60-1.30)
[2017-02-09] MEDS ORDERED: ALBUMIN 25% INJ 100 ML IV ONE (21:00)
[2017-02-09] MEDS: ACETAMINOPHEN 325 MG TAB PO PRN (21:01)
--- NOTE | 2017-02-09 22:00 | EKG ---
Date Performed: 02/09/2017 Time Performed: 01:57:30 PTAGE: 56 years EKG: SINUS TACHYCARDIA ST DEVIATION AND MODERATE T-WAVE ABNORMALITY, CONSIDER LATERAL ISCHEMIA S T DEVIATION AND MARKED T-WAVE ABNORMALITY, CONSIDER INFERIOR ISCHEMIA ABNORMAL ECG PREVIOUS TRACING : 09/11/2016 19.13 Compared to the previous tracing SINUS TACHYCARDIA IS NEW DOCTOR: Neville Trejo Interpretating Date/Time 02/09/2017 21:59:14
[2017-02-09 23:00] LABS: HEMATOCRIT 24.7 % (39.0-51.0); HEMOGLOBIN 8.5 GM/DL (13.0-17.0)
[2017-02-10] VITALS (23 sets, daily range): BP systolic 111–182; BP diastolic 58–131; PULSE 71–101; RESP 12–40; TEMP 97.6–99.5; O2SAT 97–100
[2017-02-10] MEDS: ACETAMINOPHEN/HYDROcodone 325 MG/5 MG TAB PO PRN ×3 (00:34→11:10)
[2017-02-10] MEDS: MORPHINE SULFATE 2 MG/ML INJ IV PUSH PRN ×4 (01:47→18:29)
[2017-02-10] MEDS: oxyCODONE/ACETAMINOPHEN 10 MG/325 MG TAB PO PRN ×3 (02:24→23:59)
[2017-02-10] MEDS: metroNIDAZOLE 500 MG INJ 100 ML IV SCH ×3 (02:48→19:21)
[2017-02-10] MEDS: CHLORHEXIDINE GLUCONATE 2 % 1 PACK (2 CLOTHS) TOP SCH (04:00)
[2017-02-10] MEDS: DEXT 5%-NACL 0.9% 1000 ML INJ 1,000 ML IV SCH (04:36)
[2017-02-10] MEDS: RESP: ALBUTEROL 2.5 MG/IPRATROPIUM 0.5 MG NEB (SCH) INH ×4 (04:36→20:59)
[2017-02-10] MEDS: LABETALOL HCL 100 MG/20 ML VIAL IV PUSH PRN ×2 (04:36→11:10)
[2017-02-10 06:30] LABS: AUTOMATED NEUTROPHIL # 9.9 TH/MM3 (1.8-7.7); BASOPHIL # 0.1 TH/MM3 (0-0.2); BASOPHIL % 0.7 % (0.0-2.0); EOSINOPHIL # 0.4 TH/MM3 (0-0.4); EOSINOPHIL % 2.9 % (0.0-4.0); HEMATOCRIT 27.8 % (39.0-51.0); HEMOGLOBIN 9.3 GM/DL (13.0-17.0); LYMPH % 11.2 % (9.0-44.0); LYMPHOCYTE # 1.4 TH/MM3 (1.0-4.8); MEAN CELL VOLUME 92.4 FL (80.0-100.0); MEAN CORPUSCULAR HGB CONC 33.6 % (32.0-36.0); MONO % 7.9 % (0.0-8.0); NEUT % 77.3 % (16.0-70.0); PLATELET COUNT 230 TH/MM3 (150-450); RED BLOOD COUNT 3.01 MIL/MM3 (4.50-5.90); RED CELL DISTRIBUTION WIDTH 18.1 % (11.6-17.2); WHITE BLOOD COUNT 12.8 TH/MM3 (4.0-11.0)
[2017-02-10 06:47] LABS: INTERNATIONAL NORMALIZED RATIO 1.2 RATIO; PROTHROMBIN TIME - PATIENT 12.2 SEC (9.8-11.6)
[2017-02-10 07:47] LABS: ALBUMIN 3.1 GM/DL (3.4-5.0); ALKALINE PHOSPHATASE 60 U/L (45-117); ALT (GPT) 27 U/L (12-78); AST (GOT) 67 U/L (15-37); BICARBONATE 22.3 MEQ/L (21.0-32.0); BLOOD UREA NITROGEN 78 MG/DL (7-18); CHLORIDE 124 MEQ/L (98-107); CREATININE 3.04 MG/DL (0.60-1.30); GLOMERULAR FILTRATION RATE 21 ML/MIN (>89); GLUCOSE,RANDOM 105 MG/DL (74-106); MAGNESIUM 2.2 MG/DL (1.5-2.5); PHOSPHORUS 3.5 MG/DL (2.5-4.9); SODIUM (NA) 153 MEQ/L (136-145); TOTAL BILIRUBIN ADULT 0.5 MG/DL (0.2-1.0); TOTAL PROTEIN 6.1 GM/DL (6.4-8.2)
[2017-02-10] MEDS: INSULIN NovoLIN REGULAR SUPPLEMENTAL SCALE SQ SCH ×4 (08:00→19:31)
[2017-02-10] MEDS: PIPERACIL-TAZO 2.25 GM PREMIX 50 ML IV SCH ×2 (11:05→23:50)
[2017-02-10] MEDS: FERROUS SULFATE 325 MG (65 MG ELEMENTAL IRON) TAB PO SCH ×2 (11:05→17:10)
[2017-02-10] MEDS: SODIUM CHLORIDE 0.9% FLUSH 10 ML FLUSH IV FLUSH SCH ×2 (11:11→19:21)
[2017-02-10] MEDS: COLLAGENASE OINT 30 GM TUBE TOPICAL SCH (12:00)
[2017-02-10] MEDS: DEXT 5%-NACL 0.45% 1000 ML INJ 1,000 ML IV SCH ×2 (12:16→22:30)
[2017-02-10] MEDS: PANTOPRAZOLE INJ 80 MG in SODIUM CHLORIDE 0.9% INJ 100 ML IV SCH ×2 (12:16→22:28)
--- NOTE | 2017-02-10 12:19 | HHI.CCPN ---
Subjective Remarks/Hospital Course 02/09: This is a 56 yo male. Date of admission 02/09/2017. 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 Patient is residence of halfway. Patient presents to [facility] from [facility] with a several-day history of copious diarrhea. He since she's having partially 10 bowel movements daily for the past several days. He is actually been seen here at [facility] multiple times Initially blood sugar 60s decreased to 27 admission. Receive 1 ampule D50 now on 300. BMP and CBC are performed which showed an anemia hemoglobin around 8 and a creatinine of 6.5. Baseline around 1.8. Discontinue liters normal saline wide open. Hemodynamically stable. CT abdomen/pelvis revealed no acute findings. Based on pantoprazole drip currently 8 mg an hour after she moles. We are asked to admit. 02/10: Resting in bed not in any acute distress. Transfused 2 units PRBCs yesterday. No hypotension. GI following. BUN and creatinine improving with fluids Objective Vital Signs Date Time Temp Pulse Resp B/P (MAP) Pulse Ox O2 Delivery O2 Flow Rate FiO2 02/10/17 10:00 90 02/10/17 10:00 18 166/72 (103) 100 02/10/17 08:00 98.4 02/09/17 01:44 21 02/09/17 01:33 Room Air Intake and Output 02/10/17 02/10/17 02/11/17 08:00 16:00 00:00 Intake Total 1195 ml Output Total 1425 ml Balance -230 ml Result Diagram: 02/10/17 0610 02/10/17 0610 Imaging Last Impressions Abdomen/Pelvis CT 02/09/17 0000 Signed Impressions: Service Date/Time: Thursday, February 09, 2017 00:46 - CONCLUSION: No acute findings in the abdomen and pelvis. Nathan Boyer MD Chest X-Ray 02/08/17 9573 Signed Impressions: Service Date/Time: February 22:37 - CONCLUSION: 1. Focal density of the lateral right lung base is immediately adjacent to cardiac lead and likely represents artifact. 2. Hyperaeration of the lungs indicating emphysema. Nathan Boyer MD Foot X-Ray 02/08/17 0000 Signed Impressions: Service Date/Time: February 23:46 - CONCLUSION: Evidence of cutaneous ulceration posteriorly at the heel. No radiographic evidence of osteomyelitis. Nathan Boyer MD Objective Remarks GENERAL: 86-year-old male resting in bed in no acute distress SKIN: Warm and dry. Healing ulcer left heel with some erythem5 HEAD: Atraumatic. Normocephalic. EYES: Pupils equal and round. No scleral icterus. No injection or drainage. ENT: No nasal bleeding or discharge. Mucous membranes pink and moist. NECK: Trachea midline. No JVD. CARDIOVASCULAR: Regular rate and rhythm. S1, S2. No S4. RESPIRATORY: No accessory muscle use. Clear to auscultation. Breath sounds equal bilaterally. GASTROINTESTINAL: Abdomen soft, non-tender, nondistended. Active bowel sounds MUSCULOSKELETAL: Extremities left heel ulcer without drainage. Some erythema in left lower extremity with trace edema NEUROLOGICAL: Awake and alert. No obvious cranial nerve deficits. Strength 4-5 left upper and lower extremity. 5 out of 5 right upper and lower extremity. Normal sensation. A/P Assessment and Plan Neuro/Psych: History of right frontoparietal CVA with left-sided weakness History of right ICA occlusion History of EtOH Currently holding aspirin 81 mg daily light of GI bleed Acetaminophen 650 mg every 4 hours when necessary fever Hydrocodone/acetaminophen 5/25 one tablet every 4 hours. Pain 1-5 Morphine sulfate 2 mg IV distress. Pain 6-10 CV: Chronic systolic heart failure ejection fraction 35-40% Hypertension Dyslipidemia Echocardiogram 1999 revealed EF 35 4%. Septal hypokinesis. Currently holding lisinopril 10mill grams daily light of hypotension/acute kidney injury. Resume carvedilol 3.125 mg twice a day. Holding atorvastatin 20 by mouth daily for dyslipidemia. Resume clinically indicated Received 2 L normal saline ED. Currently normal saline at 84 cc an hour. Furosemide 20 no grams twice a day Resp: Ongoing tobaccoism Nasal cannula to maintain saturations greater or equal to 92% Incentive spirometry while awake Chest x-ray revealed no acute cardio point findings chest emphysematous changes only Albuterol/ipratropium aerosols every 6 hours and albuterol nebs every 2 hours. Dyspnea Tobacco cessation booklet provided for cessation GI: Colitis/possible GI bleed Esophagitis CT abdomen/pelvis 02/09 revealed no acute findings Pantoprazole drip currently 8 mg an hour Gastroenterology consulted and following. : Millard catheter if indicated for accurate I's and O's in a critically ill patient Endo: Hypoglycemia hyperglycemia Sliding-scale insulin with Accu-Cheks to maintain euglycemia/ every 6 hours low regimen Novulin R Renal: Acute kidney injury/chronic kidney disease stage IIIa Renal ultrasound unremarkable. IV hydration. Nephrology consultation Avoid nephrotoxic drugs Monitor urine output Accurate I's and O's Heme: Macrocytic anemia Does not meet transfusion thresholds at this time Coags within normal limits Continue ferrous sulfate 325 mg twice a day ID: Possible C. difficile colitis C. difficile currently pending Blood cultures 2 ordered. Results pending Monitor for infection MSK: Osteoporosis/osteoarthritis Left heel ulcer PT evaluate and treat Ankle x-ray Revealed no acute findings FEN: Hyperkalemia Received calcium gluconate, D50/insulin/bicarbonate and albuterol aerosols. Access - Utilize peripheral IV. Central line if indicated Prophylaxis - GI - pantoprazole - DVT - SCD/holding pharmacological prophylaxis with colitis/possible lower GI bleed Edward Dempsey MD Feb 10, 2017 12:19
--- NOTE | 2017-02-10 12:36 | HHI.NPPN ---
Objective Data Data 02/10/17 02/11/17 19:00 07:00 Intake Total 550 ml Balance 550 ml Intake IV Total 550 ml Vital Signs Date Time Temp Pulse Resp B/P (MAP) Pulse Ox O2 Delivery O2 Flow Rate FiO2 02/10/17 12:00 98.5 71 13 137/64 (88) 100 02/10/17 12:00 71 02/10/17 11:00 98 16 182/76 (111) 97 02/10/17 10:00 90 02/10/17 10:00 90 18 166/72 (103) 100 02/10/17 09:34 99 02/10/17 09:00 93 22 163/70 (101) 99 02/10/17 08:00 98.4 93 20 168/73 (104) 99 02/10/17 08:00 93 02/10/17 06:00 82 02/10/17 04:38 100 02/10/17 04:00 92 22 171/76 (107) 100 02/10/17 04:00 92 02/10/17 03:14 100 02/10/17 02:00 93 02/10/17 00:00 99.5 91 40 179/76 (110) 100 02/10/17 00:00 91 02/09/17 23:24 100 02/09/17 22:00 97 02/09/17 21:40 100 02/09/17 20:00 91 02/09/17 20:00 99.3 91 17 173/74 (107) 100 02/09/17 19:55 100 02/09/17 19:00 97 23 161/72 (101) 100 02/09/17 18:32 98.7 91 16 170/73 100 02/09/17 18:30 89 17 170/73 (105) 100 02/09/17 18:01 98.5 92 20 160/71 100 02/09/17 18:00 84 12 160/71 (100) 100 02/09/17 17:30 94 34 172/79 (110) 100 02/09/17 17:00 91 14 167/68 (101) 100 02/09/17 16:31 101 14 125/54 (77) 100 02/09/17 16:00 98.5 95 28 167/75 (105) 100 02/09/17 15:46 98.6 95 12 165/70 18 1/5/18 15:30 101 45 165/70 (101) 100 02/09/17 15:10 98.5 97 18 160/75 100 02/09/17 15:00 99 16 160/75 (103) 100 02/09/17 14:30 100 13 139/63 (88) 100 02/09/17 14:00 101 15 133/60 (84) 100 02/09/17 13:30 96 12 150/67 (94) 100 02/09/17 13:00 110 49 102/58 (73) 100 -: 02/10/17 0610 02/10/17 0610 Assessment/Plan Problem List: (1) Acute renal failure ICD Codes: N17.9 - Acute kidney failure, unspecified Status: Acute Plan: His baseline creatinine is 1.5 SHANTELLE may be due to prerenal azotemia, may have progressed to ATN FeNa is not low Imaging negative for obstruction He has declining creatinine since blood transfusion overall improved (2) Hyperkalemia ICD Codes: E87.5 - Hyperkalemia Status: Acute Plan: Due to reduction in GFR Improved, continue to monitor (3) Diarrhea, unspecified ICD Codes: R19.7 - Diarrhea, unspecified Plan: May need to rule out infectious diarrhea, C diff given hx Also reportedly has GI bleed (4) Melena ICD Codes: K92.1 - Melena Status: Acute Plan: On Protonix gtt GI to see (5) Chronic anemia ICD Codes: D64.9 - Anemia, unspecified Status: Acute Plan: Possibly exacerbated by GI bleed check iron profile, transfuse if needed (6) Leukocytosis ICD Codes: D72.829 - Elevated white blood cell count, unspecified Status: Acute Plan: Improved, lactic acid is normal May be reactive or due to hemoconcentration Problem Qualifiers (1) Acute renal failure: Qualified Codes: N17.9 - Acute kidney failure, unspecified Giacomo Klein MD Feb 10, 2017 12:36
[2017-02-10] MEDS: CARVEDILOL 3.125 MG TAB PO SCH ×2 (13:40→19:21)
--- NOTE | 2017-02-10 15:33 | MB ---
cc: GLORIA JOHNSTON DATE OF CONSULTATION: 02/10/2017 REASON FOR CONSULTATION: Left heel ulceration. HISTORY OF PRESENT ILLNESS: Mr. Martin is limited and his verbalization but he states that he has had it for a long time and at that it is painful. He also states that he typically is in a wheelchair. He is fairly lethargic and sleeping through most of the examination. PAST MEDICAL HISTORY: His past medical history includes: 1. Esophagitis. 2. Hypertension. 3. Dyslipidemia. 4. Frontoparietal CVA. 5. Right internal carotid artery occlusion. 6. Arthritis. 7. Chronic systolic heart failure with ejection fraction at 35%. PAST SURGICAL HISTORY: 1. Right thoracotomy. 2. Right ankle surgery. 3. Surgery on the right eye. MEDICATIONS: Please see the list. ALLERGIES: NO KNOWN DRUG ALLERGIES. FAMILY HISTORY: Noncontributory. SOCIAL HISTORY: The patient is a one pack per day smoker. history of alcoholism. No IV or illicit drug abuse. PHYSICAL EXAMINATION: VITAL SIGNS: Temperature is 98.5, pulse 71, respiratory rate 13, blood pressure 137/64, pulse ox 100% O2 on room air. On physical exam the patient has nonpalpable dorsalis pedis pulse and posterior tibial pulses. Capillary fill time is less than 3 seconds. Right foot is unremarkable. The left foot is mildly edematous. There is a posterolateral heel eschar 1.7 cm x 1.5 cm. It does appear to be full thickness. No exposed bone. Absolutely no drainage from the wound or on the band-aid. No purulence. No malodor. No erythema. No signs of infection. The wound is very stable. LABORATORY DATA: White count is 12.8, hemoglobin is 9.3, hematocrit 27.8, platelets 230,000. INR 1.2, sodium 153, potassium 4.7, chloride 124, carbon dioxide 22.3, BUN 78, creatinine 3.04 and random glucose 105. X-RAYS: Foot x-ray is negative for any gas in the soft tissues or any obvious signs of cortical erosion. ASSESSMENT: 1.Left heel pressure stable eschar, no signs of infection currently RECOMMENDATIONS: 1. At this time, I recommend a dry foam dressing and close monitoring of the wound. 2. I disagree with the use of Santyl as a debriding agent at this time as debridement could destabilize the wound and potentially open it to the level of bone. 3. The patient is not a surgical candidate nor will surgery be beneficial to him at this time. 4. If wound worsens at any point, please re-consult. Thank you for this consultation. Gloria MYERS/NUHA /12:17 PM /3:12 PM MTDD
[2017-02-11] VITALS (28 sets, daily range): BP systolic 120–136; BP diastolic 69–82; PULSE 55–105; RESP 12–20; TEMP 97.5–98.6; O2SAT 98–100
[2017-02-11] MEDS: PANTOPRAZOLE INJ 80 MG in SODIUM CHLORIDE 0.9% INJ 100 ML IV SCH (01:06)
[2017-02-11] MEDS: MORPHINE SULFATE 2 MG/ML INJ IV PUSH PRN ×5 (01:17→16:18)
[2017-02-11] MEDS: CHLORHEXIDINE GLUCONATE 2 % 1 PACK (2 CLOTHS) TOP SCH (04:00)
[2017-02-11] MEDS: metroNIDAZOLE 500 MG INJ 100 ML IV SCH ×3 (04:05→20:54)
[2017-02-11] MEDS: RESP: ALBUTEROL 2.5 MG/IPRATROPIUM 0.5 MG NEB (SCH) INH ×4 (04:05→21:58)
[2017-02-11] MEDS: oxyCODONE/ACETAMINOPHEN 10 MG/325 MG TAB PO PRN ×3 (05:24→21:04)
[2017-02-11] MEDS: INSULIN NovoLIN REGULAR SUPPLEMENTAL SCALE SQ SCH ×4 (08:00→21:00)
[2017-02-11] MEDS: SODIUM CHLORIDE 0.9% FLUSH 10 ML FLUSH IV FLUSH SCH ×2 (08:49→20:54)
[2017-02-11] MEDS: CARVEDILOL 3.125 MG TAB PO SCH ×2 (08:49→20:55)
[2017-02-11] MEDS: COLLAGENASE OINT 30 GM TUBE TOPICAL SCH (09:00)
[2017-02-11 09:45] LABS: AUTOMATED NEUTROPHIL # 10.3 TH/MM3 (1.8-7.7); BASOPHIL # 0.1 TH/MM3 (0-0.2); BASOPHIL % 1.1 % (0.0-2.0); EOSINOPHIL % 7.5 % (0.0-4.0); HEMOGLOBIN 9.4 GM/DL (13.0-17.0); LYMPH % 9.9 % (9.0-44.0); LYMPHOCYTE # 1.3 TH/MM3 (1.0-4.8); MEAN CELL VOLUME 94.3 FL (80.0-100.0); MEAN CORPUSCULAR HEMOGLOBIN 31.6 PG (27.0-34.0); MEAN CORPUSCULAR HGB CONC 33.5 % (32.0-36.0); MEAN PLATELET VOLUME 7.5 FL (7.0-11.0); MONO % 5.7 % (0.0-8.0); MONOCYTE # 0.8 TH/MM3 (0-0.9); NEUT % 75.8 % (16.0-70.0); PLATELET COUNT 230 TH/MM3 (150-450); RED BLOOD COUNT 2.97 MIL/MM3 (4.50-5.90); RED CELL DISTRIBUTION WIDTH 18.1 % (11.6-17.2); WHITE BLOOD COUNT 13.6 TH/MM3 (4.0-11.0)
[2017-02-11 10:25] LABS: ALBUMIN 2.9 GM/DL (3.4-5.0); ALKALINE PHOSPHATASE 59 U/L (45-117); ALT (GPT) 32 U/L (12-78); AST (GOT) 75 U/L (15-37); BICARBONATE 21.5 MEQ/L (21.0-32.0); BLOOD UREA NITROGEN 40 MG/DL (7-18); CALCIUM 8.2 MG/DL (8.5-10.1); CHLORIDE 122 MEQ/L (98-107); CREATININE 2.12 MG/DL (0.60-1.30); GLOMERULAR FILTRATION RATE 32 ML/MIN (>89); GLUCOSE,RANDOM 167 MG/DL (74-106); SODIUM (NA) 151 MEQ/L (136-145); TOTAL BILIRUBIN ADULT 0.3 MG/DL (0.2-1.0)
[2017-02-11] MEDS: DEXT 5%-NACL 0.45% 1000 ML INJ 1,000 ML IV SCH ×2 (10:38→18:00)
--- NOTE | 2017-02-11 13:23 | HHI.NPPN ---
Objective Data Data Vital Signs Date Time Temp Pulse Resp B/P (MAP) Pulse Ox O2 Delivery O2 Flow Rate FiO2 02/11/17 09:02 100 21 02/11/17 07:10 98.3 105 18 126/82 (97) 100 02/11/17 06:05 20 02/11/17 06:00 20 02/11/17 06:00 105 02/11/17 05:00 93 02/11/17 04:00 98.6 94 20 136/77 (96) 100 02/11/17 04:00 95 02/11/17 03:00 96 02/11/17 02:00 98 02/11/17 01:00 99 02/11/17 00:05 101 20 127/74 (91) 100 02/11/17 00:00 88 02/10/17 23:51 98.6 100 20 181/81 (114) 100 02/10/17 23:00 90 02/10/17 22:00 98.2 92 20 146/83 (104) 100 02/10/17 22:00 86 02/10/17 21:00 89 20 158/72 (100) 100 02/10/17 20:00 97.6 101 24 177/131 (146) 100 02/10/17 20:00 101 02/10/17 19:46 100 21 02/10/17 18:00 84 02/10/17 16:00 74 02/10/17 16:00 98.4 74 12 130/60 (83) 100 02/10/17 15:00 83 15 111/58 (75) 100 02/10/17 14:00 74 02/10/17 14:00 74 22 144/64 (90) 100 -: 02/11/17 0920 02/11/17 0920 Assessment/Plan Problem List: (1) Acute renal failure ICD Codes: N17.9 - Acute kidney failure, unspecified Status: Acute Plan: His baseline creatinine is 1.5 SHANTELLE may be due to prerenal azotemia, may have progressed to ATN FeNa is not low Imaging negative for obstruction He has declining creatinine Dr. Allison to follow (2) Hyperkalemia ICD Codes: E87.5 - Hyperkalemia Status: Acute Plan: Due to reduction in GFR Improved, continue to monitor (3) Diarrhea, unspecified ICD Codes: R19.7 - Diarrhea, unspecified Plan: May need to rule out infectious diarrhea, C diff given hx Also reportedly has GI bleed (4) Melena ICD Codes: K92.1 - Melena Status: Acute Plan: On Protonix gtt GI to see (5) Chronic anemia ICD Codes: D64.9 - Anemia, unspecified Status: Acute Plan: Possibly exacerbated by GI bleed check iron profile, transfuse if needed (6) Leukocytosis ICD Codes: D72.829 - Elevated white blood cell count, unspecified Status: Acute Plan: Improved, lactic acid is normal May be reactive or due to hemoconcentration Problem Qualifiers (1) Acute renal failure: Qualified Codes: N17.9 - Acute kidney failure, unspecified Giacomo Klein MD Feb 11, 2017 13:23
[2017-02-11] MEDS: PIPERACIL-TAZO 2.25 GM PREMIX 50 ML IV SCH ×2 (13:43→23:30)
[2017-02-11] MEDS: FERROUS SULFATE 325 MG (65 MG ELEMENTAL IRON) TAB PO SCH ×2 (13:44→16:17)
[2017-02-11] MEDS: PANTOPRAZOLE SOD 40 MG DELAYED RELEASE TAB PO SCH (16:17)
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
[2017-02-11 22:17] LABS: AUTOMATED NEUTROPHIL # 9.9 TH/MM3 (1.8-7.7); BASOPHIL # 0.1 TH/MM3 (0-0.2); BASOPHIL % 1.1 % (0.0-2.0); EOSINOPHIL # 1.1 TH/MM3 (0-0.4); HEMATOCRIT 29.3 % (39.0-51.0); HEMOGLOBIN 9.8 GM/DL (13.0-17.0); LYMPH % 10.4 % (9.0-44.0); LYMPHOCYTE # 1.4 TH/MM3 (1.0-4.8); MEAN CELL VOLUME 93.4 FL (80.0-100.0); MEAN CORPUSCULAR HEMOGLOBIN 31.3 PG (27.0-34.0); MEAN CORPUSCULAR HGB CONC 33.6 % (32.0-36.0); MEAN PLATELET VOLUME 7.3 FL (7.0-11.0); MONOCYTE # 0.8 TH/MM3 (0-0.9); NEUT % 74.5 % (16.0-70.0); PLATELET COUNT 218 TH/MM3 (150-450); RED BLOOD COUNT 3.14 MIL/MM3 (4.50-5.90); RED CELL DISTRIBUTION WIDTH 17.5 % (11.6-17.2); WHITE BLOOD COUNT 13.3 TH/MM3 (4.0-11.0)
[2017-02-11 22:36] LABS: BICARBONATE 22.7 MEQ/L (21.0-32.0); CALCIUM 8.1 MG/DL (8.5-10.1); CREATININE 1.91 MG/DL (0.60-1.30)
[2017-02-11] MEDS: ACETAMINOPHEN/HYDROcodone 325 MG/5 MG TAB PO PRN (23:40)
[2017-02-12] VITALS (21 sets, daily range): BP systolic 113–155; BP diastolic 71–96; PULSE 66–130; RESP 12–20; TEMP 97.1–99.4; O2SAT 93–100
[2017-02-12] MEDS: RESP: ALBUTEROL 2.5 MG/IPRATROPIUM 0.5 MG NEB (SCH) INH ×4 (02:51→21:52)
[2017-02-12] MEDS: oxyCODONE/ACETAMINOPHEN 10 MG/325 MG TAB PO PRN ×3 (03:04→20:17)
[2017-02-12] MEDS: DEXT 5%-NACL 0.45% 1000 ML INJ 1,000 ML IV SCH ×2 (03:04→11:00)
[2017-02-12] MEDS: metroNIDAZOLE 500 MG INJ 100 ML IV SCH ×3 (03:05→20:17)
[2017-02-12] MEDS: CHLORHEXIDINE GLUCONATE 2 % 1 PACK (2 CLOTHS) TOP SCH (04:00)
[2017-02-12] MEDS: ACETAMINOPHEN/HYDROcodone 325 MG/5 MG TAB PO PRN (06:08)
[2017-02-12] MEDS: INSULIN NovoLIN REGULAR SUPPLEMENTAL SCALE SQ SCH ×4 (08:00→20:18)
[2017-02-12] MEDS: CARVEDILOL 3.125 MG TAB PO SCH ×2 (08:04→20:17)
[2017-02-12] MEDS: PANTOPRAZOLE SOD 40 MG DELAYED RELEASE TAB PO SCH (08:05)
[2017-02-12] MEDS: SODIUM CHLORIDE 0.9% FLUSH 10 ML FLUSH IV FLUSH SCH ×2 (08:09→20:18)
--- NOTE | 2017-02-12 10:03 | HHI.NPPN ---
Subjective General Problems: Anemia Renal Failure: Acute Interval History He is awake. Inquiring about plans for colonoscopy. Labs are in process. On IVF. (Kelsey Short) Objective Data Data Vital Signs Date Time Temp Pulse Resp B/P (MAP) Pulse Ox O2 Delivery O2 Flow Rate FiO2 02/12/17 09:54 100 02/12/17 09:17 84 02/12/17 08:03 98.6 93 18 146/85 (105) 100 02/12/17 06:00 84 02/12/17 05:00 86 02/12/17 04:00 98.1 87 16 155/83 (107) 100 02/12/17 04:00 84 02/12/17 03:00 79 02/12/17 02:51 100 21 02/12/17 02:00 78 02/12/17 01:00 82 02/12/17 00:00 80 02/12/17 00:00 98.7 83 12 141/96 (111) 99 02/11/17 23:00 82 02/11/17 22:00 84 02/11/17 21:00 92 02/11/17 20:00 96 02/11/17 20:00 98.4 97 12 120/69 (86) 100 02/11/17 19:00 55 02/11/17 18:00 92 02/11/17 17:00 94 02/11/17 16:00 98 02/11/17 16:00 97.9 92 18 130/73 (92) 100 02/11/17 15:04 99 21 02/11/17 15:00 102 02/11/17 14:00 80 02/11/17 13:00 82 02/11/17 12:00 97.9 90 18 127/73 (91) 100 02/11/17 12:00 84 02/11/17 11:00 102 02/11/17 10:00 94 (Kelsey Short) -: 02/11/17220102/11/172201 Imaging Last Impressions Renal Ultrasound 02/09/17 0000 Signed Impressions: Service Date/Time: Thursday, February 09, 2017 08:36 - CONCLUSION: 1. Echogenic small right kidney characteristic of medical renal disease Josiah Membreno MD Abdomen/Pelvis CT 02/09/17 0000 Signed Impressions: Service Date/Time: Thursday, February 09, 2017 00:46 - CONCLUSION: No acute findings in the abdomen and pelvis. Nathan Boyer MD Chest X-Ray 02/08/17 2233 Signed Impressions: Service Date/Time: February 22:37 - CONCLUSION: 1. Focal density of the lateral right lung base is immediately adjacent to cardiac lead and likely represents artifact. 2. Hyperaeration of the lungs indicating emphysema. Nathan Boyer MD Foot X-Ray 02/08/17 0000 Signed Impressions: Service Date/Time: February 23:46 - CONCLUSION: Evidence of cutaneous ulceration posteriorly at the heel. No radiographic evidence of osteomyelitis. Nathan Boyer MD Tubes & Lines: Flaherty (Han,Kelsey B. OBSTETRICS TECH) Physical Exam General Appearance: No Acute Distress, Comfortable, Malnourished Appearance Remarks cachexia (Han,Kelsey B. OBSTETRICS TECH) Throat Throat Exam: Oral Mucosa [place] & Moist (Han,Kelsey B. OBSTETRICS TECH) Pulmonary Resp Exam: Clear Bilaterally, Breath Sounds Equal (Han,Kelsey B. OBSTETRICS TECH) Cardiology CV Exam: Regular, Normal Sinus Rhythm (Han,Kelsey B. OBSTETRICS TECH) Gastrointestinal/Abdomen GI Exam: Soft, Non-Tender (Han,Kelsey B. OBSTETRICS TECH) Musculoskeletal MS Exam: Joints Intact, Atrophy, Unable to Ambulate MS Remarks left side contracted (Han,Kelsey B. OBSTETRICS TECH) Integumentary Skin Exam: Warm, Dry (Han,Kelsey B. OBSTETRICS TECH) Extremeties Extremities Exam: No Edema, Pedal Pulses Palpable (Han,Kelsey B. OBSTETRICS TECH) Neurologic Neuro Exam: Alert, Awake, Oriented (Han,Kelsey B. OBSTETRICS TECH) Assessment/Plan Discussed Condition With: Patient Problem List: (1) Acute renal failure ICD Codes: N17.9 - Acute kidney failure, unspecified Status: Acute Plan: His baseline creatinine is 1.5 SHANTELLE thought to be due to prerenal azotemia, may have progressed to ATN Renal function had been improving, Repeat labs have been ordered, not available. He is still on IVF, D51/2@100, taper off if tolerating PO He is non oliguric Consider flaherty removal Avoid nephrotoxins maintain MAP > 65mmHg (2) Hyperkalemia ICD Codes: E87.5 - Hyperkalemia Status: Acute Plan: Due to reduction in GFR Improved, continue to monitor (3) Melena ICD Codes: K92.1 - Melena Status: Acute Plan: Off Protonix gtt Possible colonoscopy this admission (4) Chronic anemia ICD Codes: D64.9 - Anemia, unspecified Status: Acute Plan: Possibly exacerbated by GI bleed Transfused, Hb is better (5) Leukocytosis ICD Codes: D72.829 - Elevated white blood cell count, unspecified Status: Acute Plan: Improved, lactic acid is normal May be reactive or due to hemoconcentration (6) Diarrhea, unspecified ICD Codes: R19.7 - Diarrhea, unspecified Plan: Improved Plan We will sign off at this time, please call us if needed (Kelsey Short) Plan patient was seen and examined. Renal function is stable, improved. Hypernatremia has improved. Needs free water. We will sign off at this time. (Radhames Allison MD) Problem Qualifiers (1) Acute renal failure: Qualified Codes: N17.9 - Acute kidney failure, unspecified Kelsey Short Feb 12, 2017 10:03 Radhames Allison MD Feb 12, 2017 10:10
[2017-02-12] MEDS: FERROUS SULFATE 325 MG (65 MG ELEMENTAL IRON) TAB PO SCH ×2 (10:54→16:58)
[2017-02-12 12:33] LABS: ALBUMIN 2.6 GM/DL (3.4-5.0); BICARBONATE 22.2 MEQ/L (21.0-32.0); CREATININE 1.57 MG/DL (0.60-1.30)
[2017-02-12 12:48] LABS: PHOSPHORUS 1.4 MG/DL (2.5-4.9)
[2017-02-12] MEDS: PIPERACIL-TAZO 2.25 GM PREMIX 50 ML IV SCH (12:58)
--- NOTE | 2017-02-12 13:10 | HHI.GIFU ---
Subjective Remarks Pt in bed resting, in no apparent distress. Denies nausea, vomiting, abdominal pain. Denies BM today. (Ana Lee) Objective Vitals I&O Vital Signs Date Time Temp Pulse Resp B/P (MAP) Pulse Ox O2 Delivery O2 Flow Rate FiO2 02/12/17 10:33 66 02/12/17 09:54 100 02/12/17 09:17 84 02/12/17 08:03 98.6 93 18 146/85 (105) 100 02/12/17 06:00 84 02/12/17 05:00 86 02/12/17 04:00 98.1 87 16 155/83 (107) 100 02/12/17 04:00 84 02/12/17 03:00 79 02/12/17 02:51 100 21 02/12/17 02:00 78 02/12/17 01:00 82 02/12/17 00:00 80 02/12/17 00:00 98.7 83 12 141/96 (111) 99 02/11/17 23:00 82 02/11/17 22:00 84 02/11/17 21:00 92 02/11/17 20:00 96 02/11/17 20:00 98.4 97 12 120/69 (86) 100 02/11/17 19:00 55 02/11/17 18:00 92 02/11/17 17:00 94 02/11/17 16:00 98 02/11/17 16:00 97.9 92 18 130/73 (92) 100 02/11/17 15:04 99 21 02/11/17 15:00 102 02/11/17 14:00 80 I/O 02/11/17 02/11/17 02/11/17 02/12/17 02/12/17 02/12/17 07:00 15:00 23:00 07:00 15:00 23:00 Intake Total 25 ml 310 ml 1720 ml 240 ml Output Total 1000 ml 1450 ml 950 ml Balance -975 ml 310 ml 270 ml -710 ml Intake Oral 25 ml 920 ml 240 ml IV Total 310 ml 800 ml Output Urine Total 1000 ml 1450 ml 950 ml Emesis 0 ml # Bowel Movements 0 Laboratory Laboratory Tests Test 02/11/17 22:02 02/12/17 11:40 White Blood Count 13.3 Red Blood Count 3.14 Hemoglobin 9.8 Hematocrit 29.3 Mean Corpuscular Volume 93.4 Mean Corpuscular Hemoglobin 31.3 Mean Corpuscular Hemoglobin Concent 33.6 Red Cell Distribution Width 17.5 Platelet Count 218 Mean Platelet Volume 7.3 Neutrophils (%) (Auto) 74.5 Lymphocytes (%) (Auto) 10.4 Monocytes (%) (Auto) 6.0 Eosinophils (%) (Auto) 8.0 Basophils (%) (Auto) 1.1 Neutrophils # (Auto) 9.9 Lymphocytes # (Auto) 1.4 Monocytes # (Auto) 0.8 Eosinophils # (Auto) 1.1 Basophils # (Auto) 0.1 CBC Comment DIFF FINAL Differential Comment Blood Urea Nitrogen 28 19 Creatinine 1.91 1.57 Random Glucose 121 97 Calcium Level 8.1 8.0 Sodium Level 147 145 Potassium Level 4.1 4.0 Chloride Level 119 116 Carbon Dioxide Level 22.7 22.2 Anion Gap 5 7 Estimat Glomerular Filtration Rate 37 46 Albumin 2.6 Phosphorus Level 1.4 Date/Time Source Procedure Growth Status 02/08/17 23:10 Blood Peripheral Aerobic Blood Culture - Preliminary NO GROWTH IN 4 DAYS Resulted 02/08/17 23:10 Blood Peripheral Anaerobic Blood Culture - Preliminary NO GROWTH IN 4 DAYS Resulted Imaging Last Impressions Renal Ultrasound 02/09/17 0000 Signed Impressions: Service Date/Time: Thursday, February 09, 2017 08:36 - CONCLUSION: 1. Echogenic small right kidney characteristic of medical renal disease Josiah Membreno MD Abdomen/Pelvis CT 02/09/17 0000 Signed Impressions: Service Date/Time: Thursday, February 09, 2017 00:46 - CONCLUSION: No acute findings in the abdomen and pelvis. Nathan Boyer MD Chest X-Ray 02/08/173 Signed Impressions: Service Date/Time: February 22:37 - CONCLUSION: 1. Focal density of the lateral right lung base is immediately adjacent to cardiac lead and likely represents artifact. 2. Hyperaeration of the lungs indicating emphysema. Nathan Boyer MD Foot X-Ray 02/08/17 0000 Signed Impressions: Service Date/Time: February 23:46 - CONCLUSION: Evidence of cutaneous ulceration posteriorly at the heel. No radiographic evidence of osteomyelitis. Nathan Boyer MD Physical Exam HEENT: Normocephalic; atraumatic CHEST: Even/unlabored CARDIAC: RRR ABDOMEN: Soft, nondistended, nontender; bowel sounds active EXTREMITIES: Severely contracted COMPLEX DIRECTOR: Alert and oriented times three. (Ana Lee) Assessment and Plan Assessment: (1) Diarrhea, unspecified ICD Codes: R19.7 - Diarrhea, unspecified (2) Melena ICD Codes: K92.1 - Melena Status: Acute Plan Assessment: - Diarrhea- Acute onset for the last several days- pt denies BM today and no BM documented in chart since . Pt remains on IV Flagyl and Zofran. Stool studies pending. Last colonoscopy was unable to be completed due to poor prep. - Anemia- normocytic- H/H stable 9.8/29.3 S/P 2 U PRBC on February 09. No evidence of active GI bleed. Recent EGD and colonoscopy Jan 17 at this facility, revealed Barretts esophagus. Incomplete colonoscopy due to poor prep. Plan: - Stool studies pending - Monitor stool count - Notify GI of active bleeding - Continue Protonix PO - Pt will need colonoscopy- timing to be determined - Monitor H/H - Transfuse as needed - Supportive care - Further recommendations to follow based on results of above. This patient has been seen and examined by myself and Dr. Ponce and this note is written on her behalf (Ana Lee) Physician Comments seen, examined agree with above colonoscopy this week (Kaylah Ponce MD) Ana Lee Feb 12, 2017 13:10 Kaylah Ponce MD Feb 12, 2017 18:14
[2017-02-12 13:17] LABS: ALBUMIN 2.5 GM/DL (3.4-5.0); DIRECT BILIRUBIN ADULT 0.1 MG/DL (0.0-0.2)
[2017-02-12 13:31] LABS: INDIRECT BILIRUBIN 0.3 MG/DL (0.0-0.8); TOTAL BILIRUBIN ADULT 0.4 MG/DL (0.2-1.0); TOTAL PROTEIN 5.7 GM/DL (6.4-8.2)
[2017-02-12] MEDS ORDERED: SODIUM PHOSPHATE INJ 15 MMOL in SODIUM CHLORIDE 0.9% INJ 150 ML IV ONE (17:30)
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
[2017-02-12] MEDS: SODIUM BICARBONATE 8.4% INJ 50 MEQ in DEXTROSE 5% IN WATE 1000ML INJ 1,000 ML IV SCH ×2 (18:33)
[2017-02-12 19:28] LABS: % SATURATION IRON PROFILE 9.5 % (20-50); IRON (FE) 20 MCG/DL (65-175); TOTAL IRON BINDING CAPACITY 210 MCG/DL (250-450)
[2017-02-12 19:36] LABS: FERRITIN 129 NG/ML (26-388); THYROXINE (T4) 9.3 MCG/DL (4.5-12.1)
[2017-02-12 21:04] LABS: RETIC # 91.9 MIL/L (20.0-150.0); RETIC % 2.8 % (0.4-3.0)
[2017-02-12 22:10] LABS: WESTERGREN SEDIMENTATION RATE 55 mm/hr (0-20)
[2017-02-13] VITALS (21 sets, daily range): BP systolic 127–164; BP diastolic 72–89; PULSE 76–90; RESP 12–20; TEMP 97.9–98.9; O2SAT 94–100
[2017-02-13] MEDS: oxyCODONE/ACETAMINOPHEN 10 MG/325 MG TAB PO PRN ×6 (01:36→23:00)
[2017-02-13] MEDS: SODIUM BICARBONATE 8.4% INJ 50 MEQ in DEXTROSE 5% IN WATE 1000ML INJ 1,000 ML IV SCH ×6 (01:54→21:38)
[2017-02-13] MEDS: metroNIDAZOLE 500 MG INJ 100 ML IV SCH ×3 (03:00→21:33)
[2017-02-13] MEDS: RESP: ALBUTEROL 2.5 MG/IPRATROPIUM 0.5 MG NEB (SCH) INH (03:31)
[2017-02-13] MEDS: CHLORHEXIDINE GLUCONATE 2 % 1 PACK (2 CLOTHS) TOP SCH (04:00)
--- NOTE | 2017-02-13 05:44 | MB ---
cc: JORDI THAYER M.D. DATE OF CONSULTATION: 02/12/2017 REASON FOR CONSULTATION Consult requested by Dr. Thrasher for evaluation of anemia. HISTORY OF PRESENT ILLNESS Joon is a 56-year-old male. He has multiple medical problems. He has multiple visits to the emergency room in the last few months. The patient was brought in from the assisted with profuse, severe diarrhea. He was in acute renal failure on admission. The patient was admitted to the hospital and was treated. His initial creatinine was 6.5; with the fluid resuscitation it came down to 1.57 today. Also his hemoglobin on admission was 8.7 with dehydration; the hemoglobin dropped to 6.0 and he had received 2 units of blood transfusion on February 09. Because of the persistent normocytic normochromic anemia, I have been asked to see him for further evaluation. The patient had upper endoscopy last admission on January 17 which showed Medina's esophagus. A colonoscopy was attempted but was incomplete due to poor preparation. GI has been consulted. Dr. Ponce has recommended to have repeat colonoscopy this week sometime. REVIEW OF SYSTEMS The patient is a very poor historian. He does not participate in answering the questions much. This probably could be due to his previous stroke. He had a right CVA with left hemiparesis. He has developed left foot ulcer also. He has chronic renal insufficiency based on the lab results on [employer] EMR. The rest of the review of systems is negative. PAST MEDICAL HISTORY 1. Chronic renal insufficiency. 2. Hypertension. 3. RIGHT CVA with left hemiparesis. 4. right internal carotid artery occlusion. 5. Hypercholesterolemia. 6. Osteoarthritis. 7. Chronic left heel ulcer. 8. Congestive heart failure. PAST SURGICAL HISTORY 1. Right thoracotomy with chest tube placement. 2. Right eye surgery. ALLERGIES None. MEDICATIONS 1. Ultram. 2. Protonix. 3. Hydrocodone. 4. Lisinopril. 5. Ferrous sulfate. 6. Aspirin. 7. Atorvastatin. 8. Coreg. 9. Lasix. FAMILY HISTORY Significant for colon cancer and hypertension in his father. Mother has diabetes. SOCIAL HISTORY The patient smoked cigarettes one pack a day. He used to drink alcohol heavily but now has quit. PHYSICAL EXAMINATION GENERAL: This is a well-developed, poorly-nourished appearing white male in no apparent distress. VITAL SIGNS: Temperature 97.8, heart rate is 80, blood pressure 127/75, O2 saturation 100%. HEENT: PERRLA. EOMI. Anicteric. No oral lesions noted. NECK: No lymphadenopathy noted. LUNGS: Clear. No wheezing, rhonchi or rales. HEART: Regular rate and rhythm. ABDOMEN: Soft, nontender. No hepatosplenomegaly. EXTREMITIES: No pedal edema. NEUROLOGY: Awake, alert, oriented x3. SKIN: No significant lesions are noted. ASSESSMENT Chronic normocytic, normochromic anemia. This is multifactorial due to anemia of chronic renal insufficiency as well as anemia of chronic disease. PLAN I have reviewed his available records. I have discussed with the patient regarding the anemia. I have reviewed his previous lab results on the EMR. The patient has stable normocytic normochromic anemia for quite some time. Part of the anemia workup has been done. The reticulocyte count is low at 2.8. Sed rate is high at 116. Peripheral smear shows severe mildly macrocytic anemia. No evidence of microangiopathic hemolytic process noted. The serum B12 is elevated at 1092. The serum folate is normal at 9.6. TSH is normal at 0.7. T4 is normal at 9.3. Serum ferritin is normal at 129, iron saturation, TIBC and iron all are low consistent with anemia of chronic disease. On admission his GFR was 9 and he had fluid resuscitation and his GFR has improved to 46. Looking at his previous lab results on the EMR, the patient has chronic renal insufficiency most likely due to hypertensive nephrosclerosis. The patient went into acute renal failure due to severe diarrhea. His diarrhea appears to have improved with the IV Flagyl. Blood cultures are negative. The patient has no evidence of GI bleeding. When he came in his hemoglobin was 8.7 and hemoglobin dropped to 6.0 due to fluid resuscitation for severe diarrhea and acute renal failure. He had received 2 units of blood transfusion and his hemoglobin now has improved to 9.8. Most likely the cause of normocytic normochromic anemia is multifactorial due to anemia of chronic renal insufficiency as well as anemia of chronic inflammation/chronic disease. His sed rate is very high at 116. I will order the C-reactive protein, TREVOR and rheumatoid screen for evaluation of chronic inflammation. I will also check the serum protein electrophoresis for evaluation of any monoclonal gammopathy. I will also check the serum EPO level. If the serum EPO level is low, then the patient may benefit from erythropoietin-stimulating agents such as Procrit or Aranesp. The patient had a CAT scan of the abdomen and pelvis which showed no acute findings. The renal ultrasound showed echogenic small right kidney characteristic of medical renal disease. The chest x-ray showed focal density of the lateral right lung base, likely represents artifact. Hyperaeration of the lungs indicating emphysema. X-ray of the left heel shows evidence of continuous ulceration posteriorly of the heel. No radiographic evidence of osteomyelitis. Monitor cbc. Further recommendations based on his hospital stay. Thank you for asking my opinion. MD MEGAN Leyva/KHANH /10:07 PM /5:14 AM MTDD
[2017-02-13 06:52] LABS: AUTOMATED NEUTROPHIL # 8.2 TH/MM3 (1.8-7.7); BASOPHIL # 0.1 TH/MM3 (0-0.2); BASOPHIL % 0.7 % (0.0-2.0); EOSINOPHIL # 0.8 TH/MM3 (0-0.4); EOSINOPHIL % 6.9 % (0.0-4.0); HEMATOCRIT 27.9 % (39.0-51.0); HEMOGLOBIN 9.5 GM/DL (13.0-17.0); LYMPHOCYTE # 1.4 TH/MM3 (1.0-4.8); MEAN CELL VOLUME 93.3 FL (80.0-100.0); MEAN CORPUSCULAR HEMOGLOBIN 31.7 PG (27.0-34.0); MEAN PLATELET VOLUME 7.5 FL (7.0-11.0); MONO % 7.1 % (0.0-8.0); MONOCYTE # 0.8 TH/MM3 (0-0.9); NEUT % 73.3 % (16.0-70.0); PLATELET COUNT 218 TH/MM3 (150-450); RED BLOOD COUNT 2.99 MIL/MM3 (4.50-5.90); RED CELL DISTRIBUTION WIDTH 16.4 % (11.6-17.2); WHITE BLOOD COUNT 11.2 TH/MM3 (4.0-11.0)
[2017-02-13 07:13] LABS: C-REACTIVE PROTEIN 11.7 MG/DL (0.00-0.30)
[2017-02-13 07:17] LABS: RHEUMATOID FACTOR SCREEN NEGATIVE (NEGATIVE)
[2017-02-13 07:26] LABS: ALBUMIN 2.4 GM/DL (3.4-5.0); BICARBONATE 23.9 MEQ/L (21.0-32.0); CALCIUM 7.8 MG/DL (8.5-10.1); CREATININE 1.41 MG/DL (0.60-1.30); MAGNESIUM 1.6 MG/DL (1.5-2.5); PHOSPHORUS 1.6 MG/DL (2.5-4.9)
[2017-02-13] MEDS: INSULIN NovoLIN REGULAR SUPPLEMENTAL SCALE SQ SCH ×4 (08:00→21:00)
[2017-02-13] MEDS: PANTOPRAZOLE SOD 40 MG DELAYED RELEASE TAB PO SCH (08:53)
[2017-02-13] MEDS: CARVEDILOL 3.125 MG TAB PO SCH ×2 (08:53→21:33)
[2017-02-13] MEDS: SODIUM CHLORIDE 0.9% FLUSH 10 ML FLUSH IV FLUSH SCH ×2 (08:57→21:00)
[2017-02-13] MEDS: FERROUS SULFATE 325 MG (65 MG ELEMENTAL IRON) TAB PO SCH ×2 (10:47→17:00)
[2017-02-13] MEDS ORDERED: POTASSIUM PHOSPHATE INJ 15 MMOL in SODIUM CHLORIDE 0.9% INJ 150 ML IV ONE (11:00)
[2017-02-13] MEDS: PIPERACIL-TAZO 2.25 GM PREMIX 50 ML IV SCH ×2 (12:00)
--- NOTE | 2017-02-13 13:29 | HHI.GIFU ---
Subjective Remarks Pt resting in bed in NAD. Denies diarrhea, abd pain. (Wendy Lal CAMPUS MANAGER) Objective Vitals I&O Vital Signs Date Time Temp Pulse Resp B/P (MAP) Pulse Ox O2 Delivery O2 Flow Rate FiO2 02/13/17 10:57 97.9 85 18 144/89 (107) 99 02/13/17 10:13 99 21 02/13/17 09:47 77 02/13/17 08:27 98.9 89 20 139/82 (101) 100 02/13/17 08:27 86 02/13/17 06:00 90 02/13/17 05:00 86 02/13/17 04:00 82 02/13/17 03:00 82 02/13/17 03:00 98.4 83 12 127/72 (90) 100 02/13/17 02:00 86 02/13/17 01:00 84 02/13/17 00:00 76 02/12/17 23:00 79 02/12/17 23:00 99.1 80 16 127/72 (90) 100 02/12/17 22:00 74 02/12/17 21:54 100 02/12/17 21:00 82 02/12/17 19:00 86 02/12/17 19:00 99.4 81 16 135/78 (97) 100 02/12/17 18:46 130 02/12/17 17:03 97.8 80 18 127/75 (92) 100 02/12/17 14:46 97.1 82 20 136/78 (97) 100 02/12/17 14:42 80 I/O 02/12/17 02/12/17 02/12/17 02/13/17 02/13/17 02/13/17 07:00 15:00 23:00 07:00 15:00 23:00 Intake Total 240 ml 1150 ml 240 ml Output Total 950 ml 1300 ml 700 ml Balance -710 ml 1150 ml -1300 ml -460 ml Intake Oral 240 ml 240 ml IV Total 1150 ml Output Urine Total 950 ml 1300 ml 700 ml Laboratory Laboratory Tests Test 02/12/17 19:29 02/13/17 05:00 Erythrocyte Sedimentation Rate 55 Reticulocyte Count 2.8 Absolute Reticulocyte Count 91.9 White Blood Count 11.2 Red Blood Count 2.99 Hemoglobin 9.5 Hematocrit 27.9 Mean Corpuscular Volume 93.3 Mean Corpuscular Hemoglobin 31.7 Mean Corpuscular Hemoglobin Concent 34.0 Red Cell Distribution Width 16.4 Platelet Count 218 Mean Platelet Volume 7.5 Neutrophils (%) (Auto) 73.3 Lymphocytes (%) (Auto) 12.0 Monocytes (%) (Auto) 7.1 Eosinophils (%) (Auto) 6.9 Basophils (%) (Auto) 0.7 Neutrophils # (Auto) 8.2 Lymphocytes # (Auto) 1.4 Monocytes # (Auto) 0.8 Eosinophils # (Auto) 0.8 Basophils # (Auto) 0.1 CBC Comment DIFF FINAL Differential Comment Blood Urea Nitrogen 14 Creatinine 1.41 Random Glucose 115 Albumin 2.4 Calcium Level 7.8 Phosphorus Level 1.6 Magnesium Level 1.6 Sodium Level 142 Potassium Level 3.5 Chloride Level 110 Carbon Dioxide Level 23.9 Anion Gap 8 Estimat Glomerular Filtration Rate 52 Total Creatine Kinase 1518 Creatine Kinase MB 8.2 Creatine Kinase MB % 0.5 C-Reactive Protein 11.70 Total Protein 5.6 Rheumatoid Factor Screen NEGATIVE Rheumatoid Factor Titer Date/Time Source Procedure Growth Status 02/08/17 23:10 Blood Peripheral Aerobic Blood Culture - Final NO GROWTH IN 5 DAYS Complete 02/08/17 23:10 Blood Peripheral Anaerobic Blood Culture - Final NO GROWTH IN 5 DAYS Complete Imaging Last Impressions Renal Ultrasound 02/09/17 0000 Signed Impressions: Service Date/Time: Thursday, February 09, 2017 08:36 - CONCLUSION: 1. Echogenic small right kidney characteristic of medical renal disease Josiah Membreno MD Abdomen/Pelvis CT 02/09/17 0000 Signed Impressions: Service Date/Time: Thursday, February 09, 2017 00:46 - CONCLUSION: No acute findings in the abdomen and pelvis. Nathan Boyer MD Chest X-Ray 02/08/173 Signed Impressions: Service Date/Time: February 22:37 - CONCLUSION: 1. Focal density of the lateral right lung base is immediately adjacent to cardiac lead and likely represents artifact. 2. Hyperaeration of the lungs indicating emphysema. Nathan Boyer MD Foot X-Ray 02/08/17 0000 Signed Impressions: Service Date/Time: February 23:46 - CONCLUSION: Evidence of cutaneous ulceration posteriorly at the heel. No radiographic evidence of osteomyelitis. Nathan Boyer MD Physical Exam HEENT: Normocephalic; atraumatic CHEST: Even/unlabored CARDIAC: RRR ABDOMEN: Soft, nondistended, nontender; bowel sounds active EXTREMITIES: Severely contracted ENGINEERING TECHNOLOGIST: alert (Wendy Lal) Assessment and Plan Assessment: (1) Diarrhea, unspecified ICD Codes: R19.7 - Diarrhea, unspecified (2) Melena ICD Codes: K92.1 - Melena Status: Acute Plan Assessment: - Diarrhea- Acute onset for the last several days- pt denies BM today and no BM documented in chart since . Pt remains on IV Flagyl and Zofran. Stool studies pending. Last colonoscopy was unable to be completed due to poor prep. diarrhea seems to have improved..will repeat colonoscopy - Anemia- normocytic- H/H stable S/P 2 U PRBC on February 09. No evidence of active GI bleed. Recent EGD and colonoscopy Jan 17 at this facility, revealed Barretts esophagus. Incomplete colonoscopy due to poor prep. hematology now following Plan: - colonoscopy in am - obtain consent - clear liquids - GoLytely - NPO after MN - Stool studies pending - Notify GI of active bleeding - Continue Protonix PO - Monitor H/H - Transfuse as needed - Supportive care - Further recommendations to follow based on results of above. This patient has been seen and examined by myself and Dr. Ponce and this note is written on her behalf (Wendy Lal) Physician Comments agree with above (Kaylah Ponce MD) Wendy Lal Feb 13, 2017 13:29 Kaylah Ponce MD Feb 13, 2017 19:19
--- NOTE | 2017-02-13 13:46 | PD.ONC.PN ---
Subjective Subjective Remarks Afebrile overnight. Patient resting in room in nad. denies bleeding. reporting he wants to go home and come back for the coloscopy. Objective Data Date Time Temp Pulse Resp B/P (MAP) Pulse Ox O2 Delivery O2 Flow Rate FiO2 02/13/17 10:57 97.9 85 18 144/89 (107) 99 02/13/17 10:13 99 21 02/13/17 09:47 77 02/13/17 08:27 98.9 89 20 139/82 (101) 100 02/13/17 08:27 86 02/13/17 06:00 90 02/13/17 05:00 86 02/13/17 04:00 82 02/13/17 03:00 82 02/13/17 03:00 98.4 83 12 127/72 (90) 100 02/13/17 02:00 86 02/13/17 01:00 84 02/13/17 00:00 76 02/12/17 23:00 79 02/12/17 23:00 99.1 80 16 127/72 (90) 100 02/12/17 22:00 74 02/12/17 21:54 100 02/12/17 21:00 82 02/12/17 19:00 86 02/12/17 19:00 99.4 81 16 135/78 (97) 100 02/12/17 18:46 130 02/12/17 17:03 97.8 80 18 127/75 (92) 100 02/12/17 14:46 97.1 82 20 136/78 (97) 100 02/12/17 14:42 80 02/13/17 02/13/17 02/13/17 07:00 15:00 23:00 Intake Total 240 ml Output Total 700 ml Balance -460 ml Result Diagram: 02/13/17 0500 02/13/17 0500 Laboratory Results Laboratory Tests Test 02/12/17 19:29 02/13/17 05:00 Erythrocyte Sedimentation Rate 55 mm/hr Reticulocyte Count 2.8 % Absolute Reticulocyte Count 91.9 MIL/L White Blood Count 11.2 TH/MM3 Red Blood Count 2.99 MIL/MM3 Hemoglobin 9.5 GM/DL Hematocrit 27.9 % Mean Corpuscular Volume 93.3 FL Mean Corpuscular Hemoglobin 31.7 PG Mean Corpuscular Hemoglobin Concent 34.0 % Red Cell Distribution Width 16.4 % Platelet Count 218 TH/MM3 Mean Platelet Volume 7.5 FL Neutrophils (%) (Auto) 73.3 % Lymphocytes (%) (Auto) 12.0 % Monocytes (%) (Auto) 7.1 % Eosinophils (%) (Auto) 6.9 % Basophils (%) (Auto) 0.7 % Neutrophils # (Auto) 8.2 TH/MM3 Lymphocytes # (Auto) 1.4 TH/MM3 Monocytes # (Auto) 0.8 TH/MM3 Eosinophils # (Auto) 0.8 TH/MM3 Basophils # (Auto) 0.1 TH/MM3 CBC Comment DIFF FINAL Differential Comment Blood Urea Nitrogen 14 MG/DL Creatinine 1.41 MG/DL Random Glucose 115 MG/DL Albumin 2.4 GM/DL Calcium Level 7.8 MG/DL Phosphorus Level 1.6 MG/DL Magnesium Level 1.6 MG/DL Sodium Level 142 MEQ/L Potassium Level 3.5 MEQ/L Chloride Level 110 MEQ/L Carbon Dioxide Level 23.9 MEQ/L Anion Gap 8 MEQ/L Estimat Glomerular Filtration Rate 52 ML/MIN Total Creatine Kinase 1518 U/L Creatine Kinase MB 8.2 NG/ML Creatine Kinase MB % 0.5 % C-Reactive Protein 11.70 MG/DL Total Protein 5.6 GM/DL Rheumatoid Factor Screen NEGATIVE Rheumatoid Factor Titer IU/ML Administered Medications Medications (Trade) Dose Ordered Sig/Mohit Route PRN Reason Start Time Stop Time Status Last Admin Dose Admin Ferrous Sulfate (Ferrous Sulfate) 325 mg BID@12,17 PO 02/09/17 12:00 02/13/17 10:47 Sodium Chloride (NS Flush) 2 ml BID IV FLUSH 02/09/17 09:00 02/11/17 20:54 Acetaminophen (Tylenol) 650 mg Q6H PRN PO PAIN 1-10 AND/OR FEVER >101F 02/09/17 01:45 02/09/17 21:01 Acetaminophen/ Hydrocodone Bitart ([place] 5-325 Mg) 1 tab Q4H PRN PO PAIN SCALE 1 TO 5 02/09/17 01:45 02/12/17 06:08 Morphine Sulfate (Morphine Inj) 2 mg Q2H PRN IV PUSH BREAKTHROUGH PAIN 02/09/17 01:45 02/11/17 16:18 Miscellaneous Information 1 Q361D XX 02/09/17 01:45 02/09/17 01:45 Chlorhexidine Gluconate (Chlorhexidine 2% Cloth) 3 pack Taper DAILY@04 TOP 02/09/17 04:00 02/05/18 03:59 02/09/17 03:58 Dextrose (D50w (Vial) Inj) 50 ml UNSCH PRN IV PUSH HYPOGLYCEMIA-SEE COMMENTS 02/09/17 02:15 02/09/17 13:17 Metronidazole 100 ml @ 100 mls/hr Q8H IV 02/09/17 12:00 02/13/17 10:53 Piperacillin Sod/ Tazobactam Sod 50 ml @ 100 mls/hr Q12H IV 02/09/17 12:00 02/13/17 00:00 Labetalol HCl (Trandate Inj) 10 mg Q1HR PRN IV PUSH SBP>170, DBP>90, HR>65 02/09/17 20:45 02/10/17 11:10 Oxycodone/ Acetaminophen (Percocet 10-325 Mg) 1 tab Q4H PRN PO PAIN GREATER THAN 5 02/10/17 02:00 02/13/17 10:23 Carvedilol (Coreg) 3.125 mg Q12HR PO 02/10/17 12:45 02/13/17 08:53 Pantoprazole Sodium (Protonix) 40 mg DAILY PO 02/11/17 12:15 02/13/17 08:53 Sodium Bicarbonate 50 meq/Dextrose 1,050 ml @ 125 mls/hr Q8H24M IV 02/12/17 17:30 02/13/17 01:54 Potassium Phosphate 15 mmol/ Sodium Chloride 155 ml @ 38.75 mls/ hr ONCE ONCE IV 02/13/17 11:00 02/13/17 14:59 02/13/17 10:47 Objective Remarks GENERAL: chronically ill appearing male, supine in bed resting. SKIN: Warm and dry. HEAD: Normocephalic. EYES: No injection or drainage. NECK: Supple, trachea midline. CARDIOVASCULAR: +S1/S2 RESPIRATORY: anterior braswell clear. GASTROINTESTINAL: Abdomen soft, non-tender, nondistended. MUSCULOSKELETAL: No cyanosis. Assessment/Plan Problem List: (1) Normocytic anemia ICD Codes: D64.9 - Anemia, unspecified Plan: 02/13: monitor CBC, no transfusion needed at present. may benefit from procrit but will wait for EPO level. --Chronic normocytic, normochromic anemia. --multifactorial due to anemia of chronic renal insufficiency as well as anemia of chronic disease. --No evidence of microangiopathic hemolytic process noted. --iron saturation, TIBC and iron are all low--> consistent with anemia of chronic disease. --no evidence of GI bleeding. --C-reactive protein elevated --RF negative --serum protein electrophoresis pending --EPO pending-->may benefit from Procrit Assessment 56y/o male admitted with renal failure. hematology consulted for anemia. h/o Chronic renal insufficiency. Hypertension. RIGHT CVA with left hemiparesis. right internal carotid artery occlusion. Hypercholesterolemia. Osteoarthritis. Chronic left heel ulcer. Congestive heart failure. Attending Statement The exam, history, and the medical decision-making described in the above note were completed with the assistance of the mid-level provider. I reviewed and agree with the findings presented. I attest that I had a [id number] encounter with the patient on the same day, and personally performed and documented my assessment and findings in the medical record. No more diarrhea He feels better wants to go back to [facility] anemia of chronic inflammation and CRI If EPO <500 than may benefit from Procrit. CRP and ESR are high c/w chronic inflammation causing chronic anemia. SPEP pending Komal Davenport Feb 13, 2017 13:46 Cony Bear MD Feb 13, 2017 17:45
[2017-02-13] MEDS ORDERED: PEG (High)/E-LYTE SOLN 4000 ML BTL PO ONE (16:00)
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
--- NOTE | 2017-02-13 21:25 | HHI.PR ---
Subjective Remarks Patient seen bedside. He is resting comfortably. States his left knee and hip hurt but denies pain to his left foot. Objective Vital Signs Date Time Temp Pulse Resp B/P (MAP) Pulse Ox O2 Delivery O2 Flow Rate FiO2 02/13/17 20:00 98.4 87 20 151/78 (102) 95 02/13/17 16:00 83 02/13/17 14:12 80 02/13/17 13:00 82 02/13/17 12:00 82 02/13/17 10:57 97.9 85 18 144/89 (107) 99 02/13/17 10:13 99 21 02/13/17 09:47 77 02/13/17 08:27 98.9 89 20 139/82 (101) 100 02/13/17 08:27 86 02/13/17 06:00 90 02/13/17 05:00 86 02/13/17 04:00 82 02/13/17 03:00 82 02/13/17 03:00 98.4 83 12 127/72 (90) 100 02/13/17 02:00 86 02/13/17 01:00 84 02/13/17 00:00 76 02/12/17 23:00 79 02/12/17 23:00 99.1 80 16 127/72 (90) 100 02/12/17 22:00 74 02/12/17 21:54 100 I/O 02/12/17 02/12/17 02/12/17 02/13/17 02/13/17 02/13/17 07:00 15:00 23:00 07:00 15:00 23:00 Intake Total 240 ml 1150 ml 240 ml 1300 ml Output Total 950 ml 1300 ml 700 ml Balance -710 ml 1150 ml -1300 ml -460 ml 1300 ml Intake Oral 240 ml 240 ml IV Total 1150 ml 1300 ml Output Urine Total 950 ml 1300 ml 700 ml Result Diagram: 02/13/17 0500 02/13/17 0500 Imaging Last Impressions Renal Ultrasound 02/09/17 0000 Signed Impressions: Service Date/Time: Thursday, February 09, 2017 08:36 - CONCLUSION: 1. Echogenic small right kidney characteristic of medical renal disease Josiah Membreno MD Abdomen/Pelvis CT 02/09/17 0000 Signed Impressions: Service Date/Time: Thursday, February 09, 2017 00:46 - CONCLUSION: No acute findings in the abdomen and pelvis. Nathan Boyer MD Chest X-Ray 02/08/17 2233 Signed Impressions: Service Date/Time: February 22:37 - CONCLUSION: 1. Focal density of the lateral right lung base is immediately adjacent to cardiac lead and likely represents artifact. 2. Hyperaeration of the lungs indicating emphysema. Nathan Boyer MD Foot X-Ray 02/08/17 0000 Signed Impressions: Service Date/Time: February 23:46 - CONCLUSION: Evidence of cutaneous ulceration posteriorly at the heel. No radiographic evidence of osteomyelitis. Nathan Boyer MD Other Results Laboratory Tests Test 02/11/17 22:02 02/12/17 11:40 02/12/17 19:29 02/13/17 05:00 White Blood Count 13.3 TH/MM3 11.2 TH/MM3 Red Blood Count 3.14 MIL/MM3 2.99 MIL/MM3 Hemoglobin 9.8 GM/DL 9.5 GM/DL Hematocrit 29.3 % 27.9 % Mean Corpuscular Volume 93.4 FL 93.3 FL Mean Corpuscular Hemoglobin 31.3 PG 31.7 PG Mean Corpuscular Hemoglobin Concent 33.6 % 34.0 % Red Cell Distribution Width 17.5 % 16.4 % Platelet Count 218 TH/MM3 218 TH/MM3 Mean Platelet Volume 7.3 FL 7.5 FL Neutrophils (%) (Auto) 74.5 % 73.3 % Lymphocytes (%) (Auto) 10.4 % 12.0 % Monocytes (%) (Auto) 6.0 % 7.1 % Eosinophils (%) (Auto) 8.0 % 6.9 % Basophils (%) (Auto) 1.1 % 0.7 % Neutrophils # (Auto) 9.9 TH/MM3 8.2 TH/MM3 Lymphocytes # (Auto) 1.4 TH/MM3 1.4 TH/MM3 Monocytes # (Auto) 0.8 TH/MM3 0.8 TH/MM3 Eosinophils # (Auto) 1.1 TH/MM3 0.8 TH/MM3 Basophils # (Auto) 0.1 TH/MM3 0.1 TH/MM3 CBC Comment DIFF FINAL DIFF FINAL Differential Comment Blood Urea Nitrogen 28 MG/DL 19 MG/DL 14 MG/DL Creatinine 1.91 MG/DL 1.57 MG/DL 1.41 MG/DL Random Glucose 121 MG/DL 97 MG/DL 115 MG/DL Calcium Level 8.1 MG/DL 8.0 MG/DL 7.8 MG/DL Sodium Level 147 MEQ/L 145 MEQ/L 142 MEQ/L Potassium Level 4.1 MEQ/L 4.0 MEQ/L 3.5 MEQ/L Chloride Level 119 MEQ/L 116 MEQ/L 110 MEQ/L Carbon Dioxide Level 22.7 MEQ/L 22.2 MEQ/L 23.9 MEQ/L Anion Gap 5 MEQ/L 7 MEQ/L 8 MEQ/L Estimat Glomerular Filtration Rate 37 ML/MIN 46 ML/MIN 52 ML/MIN Albumin 2.6 GM/DL 2.4 GM/DL Phosphorus Level 1.4 MG/DL 1.6 MG/DL Iron Level 20 MCG/DL Total Iron Binding Capacity 210 MCG/DL Percent Iron Saturation 9.5 % Ferritin 129 NG/ML Total Bilirubin 0.4 MG/DL Direct Bilirubin 0.1 MG/DL Indirect Bilirubin 0.3 MG/DL Aspartate Amino Transf (AST/SGOT) 77 U/L Alanine Aminotransferase (ALT/SGPT) 31 U/L Alkaline Phosphatase 69 U/L Total Creatine Kinase 1901 U/L 1518 U/L Creatine Kinase MB 13.1 NG/ML 8.2 NG/ML Creatine Kinase MB % 0.7 % 0.5 % Total Protein 5.7 GM/DL 5.6 GM/DL Thyroxine (T4) 9.3 MCG/DL Thyroid Stimulating Hormone 3rd Gen 0.760 uIU/ML Erythrocyte Sedimentation Rate 55 mm/hr Reticulocyte Count 2.8 % Absolute Reticulocyte Count 91.9 MIL/L Magnesium Level 1.6 MG/DL C-Reactive Protein 11.70 MG/DL Rheumatoid Factor Screen NEGATIVE Rheumatoid Factor Titer IU/ML Objective Remarks Left Lower Extremity: Vasc: DP/PT non palpable to left LE. REFRIGERATION TECH under 3 secs and WNL. No edema noted. Neuro: Gross sensation intact. Pinpoint sensation decreased. No hyperalgesia noted. Derm: Deep tissue injury noted to the left first MPJ with discoloration of digits x5. Heel eschar noted to posterior heel, full thickness in nature no periwound erythema noted, no drainage upon compression noted. No local signs of infection. Dusky appearance to left foot. MSK: Contracture to left knee noted. Equinus contracture noted to left LE. Hammertoes noted to digits 2-5. Tenderness on palpation to left foot posterior heel. Medications and IVs Current Medications Medications (Trade) Dose Ordered Sig/Mohit Route Start Time Stop Time Status Last Admin (Ferrous Sulfate) 325 mg BID@12,17 PO 02/09/17 12:00 02/13/17 10:47 (NS Flush) 2 ml UNSCH PRN IV FLUSH 02/09/17 01:45 (NS Flush) 2 ml BID IV FLUSH 02/09/17 09:00 02/11/17 20:54 (Tylenol) 650 mg Q6H PRN PO 02/09/17 01:45 02/09/17 21:01 ([place] 5-325 Mg) 1 tab Q4H PRN PO 02/09/17 01:45 02/12/17 06:08 (Morphine Inj) 2 mg Q2H PRN IV PUSH 02/09/17 01:45 02/11/17 16:18 (Zofran Inj) 4 mg Q6H PRN IV PUSH 02/09/17 01:45 (Albuterol Neb) 2.5 mg Q2HR NEB PRN INH 02/09/17 01:45 Miscellaneous Information 1 Q361D XX 02/09/17 01:45 02/09/17 01:45 (Chlorhexidine 2% Cloth) 3 pack Taper DAILY@04 TOP 02/09/17 04:00 02/05/18 03:59 02/09/17 03:58 (Chlorhexidine 2% Cloth) 3 pack UNSCH PRN TOP 02/09/17 01:45 (D50w (Vial) Inj) 50 ml UNSCH PRN IV PUSH 02/09/17 02:15 02/09/17 13:17 (Glucagon Inj) 1 mg UNSCH PRN OTHER 02/09/17 02:15 (NovoLIN R SUPPLEMENTAL SCALE) 1 ACHS SLIDING SCALE SQ 02/09/17 08:00 Metronidazole 100 ml @ 100 mls/hr Q8H IV 02/09/17 12:00 02/13/17 10:53 Piperacillin Sod/ Tazobactam Sod 50 ml @ 100 mls/hr Q12H IV 02/09/17 12:00 02/13/17 12:00 (Trandate Inj) 10 mg Q1HR PRN IV PUSH 02/09/17 20:45 02/10/17 11:10 (Apresoline Inj) 10 mg Q1HR PRN IV PUSH 02/09/17 20:45 (Nitroglycerin 2% Oint) 1 inch Q6HR PRN TOPICAL 02/09/17 20:45 (Percocet 10-325 Mg) 1 tab Q4H PRN PO 02/10/17 02:00 02/13/17 18:55 (Coreg) 3.125 mg Q12HR PO 02/10/17 12:45 02/13/17 08:53 (Protonix) 40 mg DAILY PO 02/11/17 12:15 02/13/17 08:53 Sodium Bicarbonate 50 meq/Dextrose 1,050 ml @ 125 mls/hr Q8H24M IV 02/12/17 17:30 02/13/17 14:46 (Santyl Oint) 1 applic DAILY EXTERNAL 02/14/17 09:00 Assessment and Plan Assessment and Plan 56 year old male with left heel ulcer/eschar Patient examined and evaluated with all questions answered Continue applying SAntyl and DSD to heel eschar LLE Continue offloading to left heel ulcer Recommend vascular studies, arterial duplex with ABIs and possible Vasc consult Patient to follow up with Podiatry within 1 week of discharge with podiatry Please reconsult if needed. Stephanie Cesar DPM Feb 13, 2017 21:25
[2017-02-13 22:26] LABS: ALB/GLOB RATIO (SPE) 1.28 (1.39-2.23)
[2017-02-14] VITALS (17 sets, daily range): BP systolic 141–190; BP diastolic 74–93; PULSE 76–113; RESP 14–19; TEMP 97.5–99.1; O2SAT 97–98
[2017-02-14] MEDS: PIPERACIL-TAZO 2.25 GM PREMIX 50 ML IV SCH ×2 (00:10→11:19)
[2017-02-14] MEDS: oxyCODONE/ACETAMINOPHEN 10 MG/325 MG TAB PO PRN ×5 (03:14→21:43)
[2017-02-14] MEDS: metroNIDAZOLE 500 MG INJ 100 ML IV SCH ×3 (03:15→20:17)
[2017-02-14] MEDS: CHLORHEXIDINE GLUCONATE 2 % 1 PACK (2 CLOTHS) TOP SCH (03:18)
[2017-02-14] MEDS: SODIUM BICARBONATE 8.4% INJ 50 MEQ in DEXTROSE 5% IN WATE 1000ML INJ 1,000 ML IV SCH ×4 (03:18→13:06)
[2017-02-14 06:32] LABS: AUTOMATED NEUTROPHIL # 6.8 TH/MM3 (1.8-7.7); BASOPHIL # 0.1 TH/MM3 (0-0.2); BASOPHIL % 0.7 % (0.0-2.0); EOSINOPHIL # 0.4 TH/MM3 (0-0.4); EOSINOPHIL % 4.6 % (0.0-4.0); HEMATOCRIT 27.8 % (39.0-51.0); HEMOGLOBIN 9.3 GM/DL (13.0-17.0); LYMPH % 13.1 % (9.0-44.0); LYMPHOCYTE # 1.2 TH/MM3 (1.0-4.8); MEAN CELL VOLUME 93.1 FL (80.0-100.0); MEAN CORPUSCULAR HEMOGLOBIN 31.3 PG (27.0-34.0); MEAN CORPUSCULAR HGB CONC 33.6 % (32.0-36.0); MEAN PLATELET VOLUME 7.6 FL (7.0-11.0); MONO % 7.8 % (0.0-8.0); MONOCYTE # 0.7 TH/MM3 (0-0.9); NEUT % 73.8 % (16.0-70.0); PLATELET COUNT 175 TH/MM3 (150-450); RED BLOOD COUNT 2.99 MIL/MM3 (4.50-5.90); RED CELL DISTRIBUTION WIDTH 16.2 % (11.6-17.2); WHITE BLOOD COUNT 9.3 TH/MM3 (4.0-11.0)
[2017-02-14 06:58] LABS: ALBUMIN 2.3 GM/DL (3.4-5.0); CALCIUM 7.7 MG/DL (8.5-10.1); CREATININE 1.4 MG/DL (0.60-1.30); MAGNESIUM 1.5 MG/DL (1.5-2.5)
[2017-02-14 07:05] LABS: PHOSPHORUS 1.2 MG/DL (2.5-4.9)
[2017-02-14] MEDS: INSULIN NovoLIN REGULAR SUPPLEMENTAL SCALE SQ SCH ×4 (08:00→20:10)
[2017-02-14] MEDS: PANTOPRAZOLE SOD 40 MG DELAYED RELEASE TAB PO SCH (09:05)
[2017-02-14] MEDS: COLLAGENASE OINT 30 GM TUBE EXTERNAL SCH (09:06)
[2017-02-14] MEDS: CARVEDILOL 3.125 MG TAB PO SCH ×2 (09:06→20:16)
[2017-02-14] MEDS: SODIUM CHLORIDE 0.9% FLUSH 10 ML FLUSH IV FLUSH SCH ×2 (09:06→20:18)
[2017-02-14] MEDS: FERROUS SULFATE 325 MG (65 MG ELEMENTAL IRON) TAB PO SCH ×2 (11:27→17:38)
--- NOTE | 2017-02-14 12:12 | RADRPT ---
EXAM DATE/TIME: 02/13/2017 00:00 [place] COMPARISON: No previous studies available for comparison. INDICATIONS : Left Lower Extremity Pain and Ulcer TECHNIQUE: Four-cuff ankle and brachial pressures were obtained. Pulse cuff waveform tracings of the ankles were recorded, and ankle-brachial indices were calculated. PRESSURES (mmHg): Brachial (arm): Right 154 Ankle: Right 107 Left 30 ASHLEY: Right 0.69 Left 0.19 TBI: Right 0.35 Left 0.00 PULSED CUFF WAVEFORMS: Depressed waveforms on the left suggesting significant inflow disease. CONCLUSION: Significant inflow disease on the left. Moderate for disease in the right. CT angiogram exam is sug gested. Galen Beal MD FACR on February 14, 2017 at 12:08 Board Certified Radiologist. This report was verified electronically.
--- NOTE | 2017-02-14 12:36 | PD.ONC.PN ---
Subjective Subjective Remarks Afebrile overnight. Patient went for colonoscopy today but had incomplete prep. Wants to know if he can be discharged and come back for colonoscopy as outpatient. Denies bleeding or pain at present. Objective Data Date Time Temp Pulse Resp B/P (MAP) Pulse Ox O2 Delivery O2 Flow Rate FiO2 02/14/17 12:09 97.5 89 14 141/74 (96) 98 02/14/17 08:06 97.7 100 16 190/93 (125) 97 02/14/17 05:00 92 02/14/17 04:26 78 02/14/17 04:20 99.1 80 19 162/80 (107) 97 02/14/17 02:00 76 02/14/17 01:00 76 02/14/17 00:14 98.8 84 18 160/89 (112) 97 02/14/17 00:00 80 02/13/17 23:00 76 02/13/17 22:00 83 02/13/17 21:34 94 02/13/17 21:00 98.6 87 19 164/82 (109) 97 02/13/17 21:00 80 02/13/17 20:00 79 02/13/17 20:00 98.4 87 20 151/78 (102) 95 02/13/17 19:00 78 02/13/17 16:00 83 02/13/17 14:12 80 02/13/17 13:00 82 02/14/17 02/14/17 02/14/17 07:00 15:00 23:00 Intake Total 240 ml Output Total 800 ml Balance -560 ml Result Diagram: 02/14/17 0437 02/14/17 043 Laboratory Results Laboratory Tests Test 02/14/17 04:37 White Blood Count 9.3 TH/MM3 Red Blood Count 2.99 MIL/MM3 Hemoglobin 9.3 GM/DL Hematocrit 27.8 % Mean Corpuscular Volume 93.1 FL Mean Corpuscular Hemoglobin 31.3 PG Mean Corpuscular Hemoglobin Concent 33.6 % Red Cell Distribution Width 16.2 % Platelet Count 175 TH/MM3 Mean Platelet Volume 7.6 FL Neutrophils (%) (Auto) 73.8 % Lymphocytes (%) (Auto) 13.1 % Monocytes (%) (Auto) 7.8 % Eosinophils (%) (Auto) 4.6 % Basophils (%) (Auto) 0.7 % Neutrophils # (Auto) 6.8 TH/MM3 Lymphocytes # (Auto) 1.2 TH/MM3 Monocytes # (Auto) 0.7 TH/MM3 Eosinophils # (Auto) 0.4 TH/MM3 Basophils # (Auto) 0.1 TH/MM3 CBC Comment DIFF FINAL Differential Comment Blood Urea Nitrogen 10 MG/DL Creatinine 1.40 MG/DL Random Glucose 93 MG/DL Albumin 2.3 GM/DL Calcium Level 7.7 MG/DL Phosphorus Level 1.2 MG/DL Magnesium Level 1.5 MG/DL Sodium Level 134 MEQ/L Potassium Level 3.6 MEQ/L Chloride Level 100 MEQ/L Carbon Dioxide Level 27.0 MEQ/L Anion Gap 7 MEQ/L Estimat Glomerular Filtration Rate 52 ML/MIN Total Creatine Kinase 1386 U/L Creatine Kinase MB 6.3 NG/ML Creatine Kinase MB % 0.5 % Administered Medications Medications (Trade) Dose Ordered Sig/Mohit Route PRN Reason Start Time Stop Time Status Last Admin Dose Admin Ferrous Sulfate (Ferrous Sulfate) 325 mg BID@12,17 PO 02/09/17 12:00 02/14/17 11:27 Sodium Chloride (NS Flush) 2 ml BID IV FLUSH 02/09/17 09:00 02/14/17 09:06 Acetaminophen (Tylenol) 650 mg Q6H PRN PO PAIN 1-10 AND/OR FEVER >101F 02/09/17 01:45 02/09/17 21:01 Acetaminophen/ Hydrocodone Bitart (Randolph 5-325 Mg) 1 tab Q4H PRN PO PAIN SCALE 1 TO 5 02/09/17 01:45 02/12/17 06:08 Morphine Sulfate (Morphine Inj) 2 mg Q2H PRN IV PUSH BREAKTHROUGH PAIN 02/09/17 01:45 02/11/17 16:18 Miscellaneous Information 1 Q361D XX 02/09/17 01:45 02/09/17 01:45 Chlorhexidine Gluconate (Chlorhexidine 2% Cloth) Taper DAILY@04 TOP 02/09/17 04:00 02/05/18 03:59 02/09/17 03:58 Dextrose (D50w (Vial) Inj) 50 ml UNSCH PRN IV PUSH HYPOGLYCEMIA-SEE COMMENTS 02/09/17 02:15 02/09/17 13:17 Metronidazole 100 ml @ 100 mls/hr Q8H IV 02/09/17 12:00 02/14/17 12:05 Piperacillin Sod/ Tazobactam Sod 50 ml @ 100 mls/hr Q12H IV 02/09/17 12:00 02/14/17 11:19 Labetalol HCl (Trandate Inj) 10 mg Q1HR PRN IV PUSH SBP>170, DBP>90, HR>65 02/09/17 20:45 02/10/17 11:10 Oxycodone/ Acetaminophen (Percocet 10-325 Mg) 1 tab Q4H PRN PO PAIN GREATER THAN 5 02/10/17 02:00 02/14/17 09:05 Carvedilol (Coreg) 3.125 mg Q12HR PO 02/10/17 12:45 02/14/17 09:06 Pantoprazole Sodium (Protonix) 40 mg DAILY PO 02/11/17 12:15 02/14/17 09:05 Sodium Bicarbonate 50 meq/Dextrose 1,050 ml @ 125 mls/hr Q8H24M IV 02/12/17 17:30 02/14/17 03:18 Collagenase (Santyl Oint) 1 applic DAILY EXTERNAL 02/14/17 09:00 02/14/17 09:06 Objective Remarks GENERAL: chronically ill appearing male, lying in bed resting. SKIN: Warm and dry. HEAD: Normocephalic. EYES: No injection or drainage. NECK: Supple, trachea midline. CARDIOVASCULAR: +S1/S2 RESPIRATORY: anterior braswell clear. GASTROINTESTINAL: Abdomen soft, non-tender, nondistended. MUSCULOSKELETAL: No cyanosis. NEURO: awake and alert, normal speech. Assessment/Plan Problem List: (1) Normocytic anemia ICD Codes: D64.9 - Anemia, unspecified Plan: 02/14: patient clear for discharge from hematology perspective. anemia likely d/t chronic disease and renal dysfunction. ok to d/c and follow up in clinic. face sheet faxed to new patient referrals. --Chronic normocytic, normochromic anemia. --multifactorial due to anemia of chronic renal insufficiency as well as anemia of chronic disease. --No evidence of microangiopathic hemolytic process noted. --iron saturation, TIBC and iron are all low--> consistent with anemia of chronic disease. --no evidence of GI bleeding. --C-reactive protein elevated --RF negative --serum protein electrophoresis pending --EPO pending-->may benefit from Procrit Assessment 56y/o male admitted with renal failure. hematology consulted for anemia. h/o Chronic renal insufficiency. Hypertension. RIGHT CVA with left hemiparesis. right internal carotid artery occlusion. Hypercholesterolemia. Osteoarthritis. Chronic left heel ulcer. Congestive heart failure. Attending Statement The exam, history, and the medical decision-making described in the above note were completed with the assistance of the mid-level provider. I reviewed and agree with the findings presented. I attest that I had a [id number] encounter with the patient on the same day, and personally performed and documented my assessment and findings in the medical record Wants to go back to [facility]. poor prep for colonoscopy. anemia is not due to to blood loss but is from under production due to chronic inflammation and CRI Ok to d/c . FU in the clinic for the rest of the w/u for anemia and treatment with procrit.. Komal Davenport Feb 14, 2017 12:36 Cony Bear MD Feb 14, 2017 12:56
--- NOTE | 2017-02-14 12:47 | HHI.PR ---
Subjective Remarks Follow up for anemia, diarrhea. Patient is currently doing well. No acute concerns. He could not do prep completely and thus Colonoscopy was cancelled. Objective Vitals Vital Signs Date Time Temp Pulse Resp B/P (MAP) Pulse Ox O2 Delivery O2 Flow Rate FiO2 02/14/17 12:09 97.5 89 14 141/74 (96) 98 02/14/17 08:06 97.7 100 16 190/93 (125) 97 02/14/17 05:00 92 02/14/17 04:26 78 02/14/17 04:20 99.1 80 19 162/80 (107) 97 02/14/17 02:00 76 02/14/17 01:00 76 02/14/17 00:14 98.8 84 18 160/89 (112) 97 02/14/17 00:00 80 02/13/17 23:00 76 02/13/17 22:00 83 02/13/17 21:34 94 02/13/17 21:00 98.6 87 19 164/82 (109) 97 02/13/17 21:00 80 02/13/17 20:00 79 02/13/17 20:00 98.4 87 20 151/78 (102) 95 02/13/17 19:00 78 02/13/17 16:00 83 02/13/17 14:12 80 02/13/17 13:00 82 I/O 02/13/17 02/13/17 02/13/17 02/14/17 02/14/17 02/14/17 07:00 15:00 23:00 07:00 15:00 23:00 Intake Total 240 ml 1300 ml 240 ml Output Total 700 ml 800 ml Balance -460 ml 1300 ml -560 ml Intake Oral 240 ml 240 ml IV Total 1300 ml Output Urine Total 700 ml 500 ml Stool Total 300 ml Result Diagram: 02/14/1743602/14/17436 Imaging Last Impressions Renal Ultrasound 02/09/17 0000 Signed Impressions: Service Date/Time: Thursday, February 09, 2017 08:36 - CONCLUSION: 1. Echogenic small right kidney characteristic of medical renal disease Josiah Membreno MD Abdomen/Pelvis CT 02/09/17 0000 Signed Impressions: Service Date/Time: Thursday, February 09, 2017 00:46 - CONCLUSION: No acute findings in the abdomen and pelvis. Nathan Boyer MD Chest X-Ray 02/08/17 2233 Signed Impressions: Service Date/Time: February 22:37 - CONCLUSION: 1. Focal density of the lateral right lung base is immediately adjacent to cardiac lead and likely represents artifact. 2. Hyperaeration of the lungs indicating emphysema. Nathan Boyer MD Foot X-Ray 02/08/17 0000 Signed Impressions: Service Date/Time: February 23:46 - CONCLUSION: Evidence of cutaneous ulceration posteriorly at the heel. No radiographic evidence of osteomyelitis. Nathan Boyer MD Objective Remarks GENERAL: Alert, NAD. SKIN: Warm and dry. HEAD: Normocephalic. EYES: No scleral icterus. No injection or drainage. NECK: Supple, trachea midline. No JVD or lymphadenopathy. CARDIOVASCULAR: Regular rate and rhythm without murmurs, gallops, or rubs. RESPIRATORY: Breath sounds equal bilaterally. No accessory muscle use. GASTROINTESTINAL: Abdomen soft, non-tender, nondistended. MUSCULOSKELETAL: No cyanosis, or edema. BACK: Nontender without obvious deformity. No CVA tenderness. A/P Problem List: (1) Acute renal failure ICD Code: N17.9 - Acute kidney failure, unspecified Status: Acute (2) Cellulitis of left foot ICD Code: L03.116 - Cellulitis of left lower limb Status: Acute (3) Hyperkalemia ICD Code: E87.5 - Hyperkalemia Status: Acute (4) Ulcer of left foot ICD Code: L97.529 - Non-pressure chronic ulcer of other part of left foot with unspecified severity Status: Acute (5) Melena ICD Code: K92.1 - Melena Status: Acute (6) Chronic back pain ICD Code: M54.9 - Dorsalgia, unspecified; G89.29 - Other chronic pain Status: Acute (7) Tobacco abuse ICD Code: Z72.0 - Tobacco use Status: Chronic (8) PVD (peripheral vascular disease) ICD Code: I73.9 - Peripheral vascular disease, unspecified Status: Acute (9) Severe sepsis ICD Code: A41.9 - Sepsis, unspecified organism; R65.20 - Severe sepsis without septic shock Assessment and Plan Mr. Porter is a pleasant 56 year old male who was admitted to the hospital due to profuse diarrhea, SHANTELLE and anemia. - Anemia - possibly related to multiple factors including kidney disease, anemia of chronic disease. - Hematology cleared for discharge. Colonoscopy can be done outpatient. - GI cancelled Colonoscopy due to poor prep. - Patient received 2 units of PRBCs and Hgb is 9.3 today. - Acute on chronic kidney disease - Creatinine improved from 6.5 --> 1.4. - SHANTELLE Was likely due to volume depletion due to diarrhea. - Left heel eschar - appreciate podiatry input. Outpatient follow up in one week. - Currently on Zosyn which we will discontinue. - Diarrhea - C. Diff PCR not done. Currently on Flagyl. Switch to PO Flagyl. Full code. SCDs. Problem Qualifiers (1) Acute renal failure: Qualified Codes: N17.9 - Acute kidney failure, unspecified (2) Ulcer of left foot: Qualified Codes: L97.522 - Non-pressure chronic ulcer of other part of left foot with fat layer exposed (3) Chronic back pain: Qualified Codes: M54.5 - Low back pain; G89.29 - Other chronic pain Sonja Marley DO Feb 14, 2017 12:47
[2017-02-15] VITALS (31 sets, daily range): BP systolic 95–206; BP diastolic 54–90; PULSE 80–148; RESP 16–20; TEMP 97.4–99.5; O2SAT 97–100
[2017-02-15] MEDS: PIPERACIL-TAZO 2.25 GM PREMIX 50 ML IV SCH ×2 (00:12→12:44)
[2017-02-15] MEDS: hydrALAZINE HCL 20 MG/ML VIAL IV PUSH PRN (00:12)
[2017-02-15] MEDS: SODIUM BICARBONATE 8.4% INJ 50 MEQ in DEXTROSE 5% IN WATE 1000ML INJ 1,000 ML IV SCH ×4 (00:13→04:18)
[2017-02-15] MEDS: oxyCODONE/ACETAMINOPHEN 10 MG/325 MG TAB PO PRN ×5 (01:33→20:49)
[2017-02-15] MEDS: CHLORHEXIDINE GLUCONATE 2 % 1 PACK (2 CLOTHS) TOP SCH (04:00)
[2017-02-15] MEDS: metroNIDAZOLE 500 MG INJ 100 ML IV SCH (04:07)
[2017-02-15] MEDS: INSULIN NovoLIN REGULAR SUPPLEMENTAL SCALE SQ SCH ×4 (08:00→20:50)
[2017-02-15] MEDS: SODIUM CHLORIDE 0.9% FLUSH 10 ML FLUSH IV FLUSH SCH ×2 (09:00→20:49)
[2017-02-15] MEDS: COLLAGENASE OINT 30 GM TUBE EXTERNAL SCH (09:00)
[2017-02-15] MEDS: PANTOPRAZOLE SOD 40 MG DELAYED RELEASE TAB PO SCH (09:28)
[2017-02-15] MEDS: CARVEDILOL 3.125 MG TAB PO SCH (09:28)
--- NOTE | 2017-02-15 11:59 | HHI.GIFU ---
Subjective Remarks Pt eager to go home. No bleeding. Getting d/c with home health. (Wendy Lla) Objective Vitals I&O Vital Signs Date Time Temp Pulse Resp B/P (MAP) Pulse Ox O2 Delivery O2 Flow Rate FiO2 02/15/17 08:00 98.0 101 18 155/75 (101) 97 02/15/17 05:00 105 02/15/17 04:04 99.5 103 16 130/71 (90) 98 02/15/17 04:00 103 02/15/17 02:00 97 02/15/17 01:00 118 02/15/17 00:21 183/81 (115) 02/15/17 00:07 98.1 84 16 206/89 (128) 99 02/15/17 00:00 87 02/14/17 23:00 113 02/14/17 22:00 86 02/14/17 21:00 83 02/14/17 20:11 80 02/14/17 20:00 80 18 173/81 (111) 97 02/14/17 19:00 77 02/14/17 17:25 98.0 79 14 148/81 (103) 98 02/14/17 12:09 97.5 89 14 141/74 (96) 98 I/O 02/14/17 02/14/17 02/14/17 02/15/17 02/15/17 02/15/17 07:00 15:00 23:00 07:00 15:00 23:00 Intake Total 240 ml 1506 ml 240 ml Output Total 800 ml 1625 ml 1050 ml Balance -560 ml -119 ml -810 ml Intake Oral 240 ml 360 ml 240 ml IV Total 1146 ml Output Urine Total 500 ml 1625 ml 1050 ml Stool Total 300 ml Laboratory Date/Time Source Procedure Growth Status 02/08/17 23:10 Blood Peripheral Aerobic Blood Culture - Final NO GROWTH IN 5 DAYS Complete 02/08/17 23:10 Blood Peripheral Anaerobic Blood Culture - Final NO GROWTH IN 5 DAYS Complete Imaging Last Impressions Renal Ultrasound 02/09/17 0000 Signed Impressions: Service Date/Time: Thursday, February 09, 2017 08:36 - CONCLUSION: 1. Echogenic small right kidney characteristic of medical renal disease Josiah Membreno MD Abdomen/Pelvis CT 02/09/17 0000 Signed Impressions: Service Date/Time: Thursday, February 09, 2017 00:46 - CONCLUSION: No acute findings in the abdomen and pelvis. Nathan Boyer MD Chest X-Ray 02/08/173 Signed Impressions: Service Date/Time: February 22:37 - CONCLUSION: 1. Focal density of the lateral right lung base is immediately adjacent to cardiac lead and likely represents artifact. 2. Hyperaeration of the lungs indicating emphysema. Nathan Boyer MD Foot X-Ray 02/08/17 0000 Signed Impressions: Service Date/Time: February 23:46 - CONCLUSION: Evidence of cutaneous ulceration posteriorly at the heel. No radiographic evidence of osteomyelitis. Nathan Boyer MD Physical Exam HEENT: Normocephalic; atraumatic CHEST: Even/unlabored diminished CARDIAC: irr HR ABDOMEN: Soft, nondistended, nontender; bowel sounds active EXTREMITIES: Severely contracted [employer]ITIONER: alert, weak (Wendy Lal) Assessment and Plan Assessment: (1) Diarrhea, unspecified ICD Codes: R19.7 - Diarrhea, unspecified (2) Melena ICD Codes: K92.1 - Melena Status: Acute Plan Assessment: - Diarrhea- Acute onset for the last several days- pt denies BM today and no BM documented in chart since . Pt remains on IV Flagyl and Zofran. Stool studies pending. Last colonoscopy was unable to be completed due to poor prep. diarrhea seems to have improved. attempted repeat colonoscopy, pt did not take prep. wants to go home and f/u as outpt. - Anemia- normocytic- H/H stable S/P 2 U PRBC on February 09. No evidence of active GI bleed. Recent EGD and colonoscopy Jan 17 at this facility, revealed Barretts esophagus. hematology now following- feel anemia d/t underproduction d/t chronic inflammation and renal insufficiency HH stable Plan: - await stool cx - f/u with GI as outpt for colonoscopy - Continue Protonix PO - Monitor H/H - Transfuse as needed - Supportive care -ok to d/c from GI standpoint w/ outpt f/u This patient has been seen and examined by myself and Dr. Ponce and this note is written on her behalf (Wendy Lal) Wendy Lal Feb 15, 2017 11:59 Kaylah Ponce MD Feb 15, 2017 17:02
--- NOTE | 2017-02-15 12:16 | PD.ONC.PN ---
Subjective Subjective Remarks Afebrile overnight. Patient resting in room. Denies bleeding. Will be having colonoscopy outpatient. Objective Data Date Time Temp Pulse Resp B/P (MAP) Pulse Ox O2 Delivery O2 Flow Rate FiO2 02/15/17 12:06 98.4 83 19 165/90 (115) 100 02/15/17 12:00 93 02/15/17 11:00 97 02/15/17 10:00 118 02/15/17 09:00 98 02/15/17 08:00 98.0 101 18 155/75 (101) 97 02/15/17 08:00 96 02/15/17 07:00 97 02/15/17 05:00 105 02/15/17 04:04 99.5 103 16 130/71 (90) 98 02/15/17 04:00 103 02/15/17 02:00 97 02/15/17 01:00 118 02/15/17 00:21 183/81 (115) 02/15/17 00:07 98.1 84 16 206/89 (128) 99 02/15/17 00:00 87 02/14/17 23:00 113 02/14/17 22:00 86 02/14/17 21:00 83 02/14/17 20:11 80 02/14/17 20:00 80 18 173/81 (111) 97 02/14/17 19:00 77 02/14/17 17:25 98.0 79 14 148/81 (103) 98 02/15/17 02/15/17 02/15/17 07:00 15:00 23:00 Intake Total 240 ml Output Total 1050 ml Balance -810 ml Result Diagram: 02/14/17 0437 02/14/17 0437 Administered Medications Medications (Trade) Dose Ordered Sig/Mohit Route PRN Reason Start Time Stop Time Status Last Admin Dose Admin Ferrous Sulfate (Ferrous Sulfate) 325 mg BID@12,17 PO 02/09/17 12:00 02/14/17 17:38 Sodium Chloride (NS Flush) 2 ml BID IV FLUSH 02/09/17 09:00 02/14/17 09:06 Acetaminophen (Tylenol) 650 mg Q6H PRN PO PAIN 1-10 AND/OR FEVER >101F 02/09/17 01:45 02/09/17 21:01 Acetaminophen/ Hydrocodone Bitart ([place] 5-325 Mg) 1 tab Q4H PRN PO PAIN SCALE 1 TO 5 02/09/17 01:45 02/12/17 06:08 Morphine Sulfate (Morphine Inj) 2 mg Q2H PRN IV PUSH BREAKTHROUGH PAIN 02/09/17 01:45 02/11/17 16:18 Miscellaneous Information 1 Q361D XX 02/09/17 01:45 02/09/17 01:45 Chlorhexidine Gluconate (Chlorhexidine 2% Cloth) Taper DAILY@04 TOP 02/09/17 04:00 02/05/18 03:59 02/09/17 03:58 Dextrose (D50w (Vial) Inj) 50 ml UNSCH PRN IV PUSH HYPOGLYCEMIA-SEE COMMENTS 02/09/17 02:15 02/09/17 13:17 Insulin Human Regular (NovoLIN R SUPPLEMENTAL SCALE) 1 ACHS SLIDING SCALE SQ 02/09/17 08:00 02/14/17 17:39 Metronidazole 100 ml @ 100 mls/hr Q8H IV 02/09/17 12:00 02/15/17 04:07 Piperacillin Sod/ Tazobactam Sod 50 ml @ 100 mls/hr Q12H IV 02/09/17 12:00 02/15/17 00:12 Labetalol HCl (Trandate Inj) 10 mg Q1HR PRN IV PUSH SBP>170, DBP>90, HR>65 02/09/17 20:45 02/10/17 11:10 Hydralazine HCl (Apresoline Inj) 10 mg Q1HR PRN IV PUSH SBP>170, DBP>90 02/09/17 20:45 02/15/17 00:12 Oxycodone/ Acetaminophen (Percocet 10-325 Mg) 1 tab Q4H PRN PO PAIN GREATER THAN 5 02/10/17 02:00 02/15/17 09:36 Carvedilol (Coreg) 3.125 mg Q12HR PO 02/10/17 12:45 02/15/17 09:28 Pantoprazole Sodium (Protonix) 40 mg DAILY PO 02/11/17 12:15 02/15/17 09:28 Sodium Bicarbonate 50 meq/Dextrose 1,050 ml @ 125 mls/hr Q8H24M IV 02/12/17 17:30 02/15/17 00:13 Collagenase (Santyl Oint) 1 applic DAILY EXTERNAL 02/14/17 09:00 02/15/17 09:00 Objective Remarks GENERAL: chronically ill male, sitting in chair next to bed in nad. SKIN: Warm and dry. HEAD: Normocephalic. EYES: No injection or drainage. NECK: Supple, trachea midline. CARDIOVASCULAR: +S1/S2 RESPIRATORY: anterior braswell clear. GASTROINTESTINAL: Abdomen soft, non-tender, nondistended. MUSCULOSKELETAL: No cyanosis. NEURO: awake and alert, normal speech. Assessment/Plan Problem List: (1) Normocytic anemia ICD Codes: D64.9 - Anemia, unspecified Plan: 02/15: clear for discharge. monitor CBC. follow up in hematology clinic upon discharge. --Chronic normocytic, normochromic anemia. --multifactorial due to anemia of chronic renal insufficiency as well as anemia of chronic disease. --No evidence of microangiopathic hemolytic process noted. --iron saturation, TIBC and iron are all low--> consistent with anemia of chronic disease. --no evidence of GI bleeding. --C-reactive protein elevated --RF negative --serum protein electrophoresis shows no monoclonal protein. --EPO pending-->may benefit from Procrit Assessment 56y/o male admitted with renal failure. hematology consulted for anemia. h/o Chronic renal insufficiency. Hypertension. RIGHT CVA with left hemiparesis. right internal carotid artery occlusion. Hypercholesterolemia. Osteoarthritis. Chronic left heel ulcer. Congestive heart failure. Attending Statement The exam, history, and the medical decision-making described in the above note were completed with the assistance of the mid-level provider. I reviewed and agree with the findings presented. I attest that I had a [id number] encounter with the patient on the same day, and personally performed and documented my assessment and findings in the medical record. Denies any c/o sad b/c [facility] did not accept . H/H stable. RA, TREVOR, SPEP = neg EPO is 25. Has Anemia of CRI. He will benefit from Procrit if HG <10. await placement. d/w RN sign off available prn. Komal Davenport Feb 15, 2017 12:16 Cony Bear MD Feb 15, 2017 21:17
[2017-02-15 12:28] LABS: AUTOMATED NEUTROPHIL # 5.7 TH/MM3 (1.8-7.7); BASOPHIL # 0.1 TH/MM3 (0-0.2); BASOPHIL % 0.8 % (0.0-2.0); EOSINOPHIL # 0.3 TH/MM3 (0-0.4); EOSINOPHIL % 3.3 % (0.0-4.0); HEMATOCRIT 28.4 % (39.0-51.0); HEMOGLOBIN 9.8 GM/DL (13.0-17.0); LYMPH % 11.6 % (9.0-44.0); LYMPHOCYTE # 0.9 TH/MM3 (1.0-4.8); MEAN CELL VOLUME 92.5 FL (80.0-100.0); MEAN CORPUSCULAR HEMOGLOBIN 31.8 PG (27.0-34.0); MEAN CORPUSCULAR HGB CONC 34.4 % (32.0-36.0); MEAN PLATELET VOLUME 7.7 FL (7.0-11.0); MONO % 8.7 % (0.0-8.0); MONOCYTE # 0.7 TH/MM3 (0-0.9); NEUT % 75.6 % (16.0-70.0); PLATELET COUNT 219 TH/MM3 (150-450); RED BLOOD COUNT 3.07 MIL/MM3 (4.50-5.90); RED CELL DISTRIBUTION WIDTH 15.5 % (11.6-17.2); WHITE BLOOD COUNT 7.6 TH/MM3 (4.0-11.0)
[2017-02-15] MEDS: FERROUS SULFATE 325 MG (65 MG ELEMENTAL IRON) TAB PO SCH ×2 (12:43→18:03)
[2017-02-15] MEDS ORDERED: amLODIPine BESYLATE 5 MG TAB PO ONE (13:00)
[2017-02-15] MEDS: metroNIDAZOLE 500 MG TAB PO SCH ×2 (13:46→20:48)
--- NOTE | 2017-02-15 14:05 | HHI.FF ---
Face to Face Verification Diagnosis: (1) Chronic anemia (2) [id number] renal failure (3) Diarrhea, unspecified Physical Therapy Order: Evaluate and Treat, Improve ambulation, Strength and gait training Home Health Nursing Order: Medical education Signs/symptoms of disease process Wound care and dressing changes Nursing assessment with vital signs I have seen patient Joon Porter on 02/15/17. My clinical findings support the need for the requested home health care services because: Ltd mobility - disease progression Patient has SOB Deconditioned w/ increased weakness Med compliance is questionable Limited ability to care for self Need for psychosocial assistance Impaired cognition/judgement High risk of falls Infection w/ risk of complications I certify that my clinical findings support that this patient is homebound because: Impaired cognitive ability/safety Unsteady gait/balance Unsafe to leave home unassisted Need for psychosocial assistance [id number] bed/chair Unable to use public transportation Sonja Marley DO Feb 15, 2017 2:05 pm
[2017-02-15] MEDS ORDERED: HYDR-3516 PO (14:09)
[2017-02-15] MEDS ORDERED: METR-1 PO (14:09)
[2017-02-15] MEDS ORDERED: AMLO5 PO (14:09)
[2017-02-15] MEDS ORDERED: CEPH500C PO (14:14)
[2017-02-15] MEDS ORDERED: LACTCHW3 CHEW (14:14)
--- NOTE | 2017-02-15 14:18 | HHI.DS ---
Discharge Summary Admission Date Feb 09, 2017 at 1:18 am Discharge Date: Feb 15, 2017 Admitting Diagnosis acute renal failure, melena, GI bleed, anemia, hyperkalemia (1) Acute renal failure ICD Code: N17.9 - Acute kidney failure, unspecified Diagnosis: Principal Status: Acute (2) Cellulitis of left foot ICD Code: L03.116 - Cellulitis of left lower limb Diagnosis: Secondary Status: Acute (3) Hyperkalemia ICD Code: E87.5 - Hyperkalemia Diagnosis: Principal Status: Acute (4) Ulcer of left foot ICD Code: L97.529 - Non-pressure chronic ulcer of other part of left foot with unspecified severity Diagnosis: Principal Status: Acute (5) Melena ICD Code: K92.1 - Melena Diagnosis: Principal Status: Acute (6) Chronic back pain ICD Code: M54.9 - Dorsalgia, unspecified; G89.29 - Other chronic pain Diagnosis: Principal Status: Acute (7) Tobacco abuse ICD Code: Z72.0 - Tobacco use Diagnosis: Secondary Status: Chronic (8) PVD (peripheral vascular disease) ICD Code: I73.9 - Peripheral vascular disease, unspecified Diagnosis: Principal Status: Acute (9) Severe sepsis ICD Code: A41.9 - Sepsis, unspecified organism; R65.20 - Severe sepsis without septic shock Diagnosis: Principal Brief History - From Admission This is a 56 yo male. Date of admission 02/09/2017. 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 Patient is residence of senior care. Patient presents to [facility] from [facility] with a several-day history of copious diarrhea. He since she's having partially 10 bowel movements daily for the past several days. He is actually been seen here at [facility] multiple times. Initially blood sugar 60s decreased to 27 admission. Receive 1 ampule D50 now on 300. BMP and CBC are performed which showed an anemia hemoglobin around 8 and a creatinine of 6.5. Baseline around 1.8. Discontinue liters normal saline wide open. Hemodynamically stable. CT abdomen/pelvis revealed no acute findings. Based on pantoprazole drip currently 8 mg an hour after she moles. We are asked to admit. CBC/BMP: 02/15/17 1135 02/14/17 0437 Significant Findings Laboratory Tests Test 02/12/17 19:29 02/13/17 05:00 02/14/17 04:37 02/15/17 11:35 Erythrocyte Sedimentation Rate 55 mm/hr (0-20) White Blood Count 11.2 TH/MM3 (4.0-11.0) Red Blood Count 2.99 MIL/MM3 (4.50-5.90) 2.99 MIL/MM3 (4.50-5.90) 3.07 MIL/MM3 (4.50-5.90) Hemoglobin 9.5 GM/DL (13.0-17.0) 9.3 GM/DL (13.0-17.0) 9.8 GM/DL (13.0-17.0) Hematocrit 27.9 % (39.0-51.0) 27.8 % (39.0-51.0) 28.4 % (39.0-51.0) Neutrophils (%) (Auto) 73.3 % (16.0-70.0) 73.8 % (16.0-70.0) 75.6 % (16.0-70.0) Eosinophils (%) (Auto) 6.9 % (0.0-4.0) 4.6 % (0.0-4.0) Neutrophils # (Auto) 8.2 TH/MM3 (1.8-7.7) Eosinophils # (Auto) 0.8 TH/MM3 (0-0.4) Creatinine 1.41 MG/DL (0.60-1.30) 1.40 MG/DL (0.60-1.30) Random Glucose 115 MG/DL (74-106) Albumin 2.4 GM/DL (3.4-5.0) 2.3 GM/DL (3.4-5.0) Calcium Level 7.8 MG/DL (8.5-10.1) 7.7 MG/DL (8.5-10.1) Phosphorus Level 1.6 MG/DL (2.5-4.9) 1.2 MG/DL (2.5-4.9) Chloride Level 110 MEQ/L (98-107) Estimat Glomerular Filtration Rate 52 ML/MIN (>89) 52 ML/MIN (>89) Total Creatine Kinase 1518 U/L (39-308) 1386 U/L (39-308) Creatine Kinase MB 8.2 NG/ML (0.5-3.6) 6.3 NG/ML (0.5-3.6) C-Reactive Protein 11.70 MG/DL (0.00-0.30) Total Protein 5.6 GM/DL (6.0-7.6) Albumin/Globulin Ratio 1.28 (1.39-2.23) Ozmag-[id number] 0.30 GM/DL (0.11-0.29) Sodium Level 134 MEQ/L (136-145) Monocytes (%) (Auto) 8.7 % (0.0-8.0) Lymphocytes # (Auto) 0.9 TH/MM3 (1.0-4.8) Imaging Last Impressions Renal Ultrasound 02/09/17 0000 Signed Impressions: Service Date/Time: Thursday, February 09, 2017 08:36 - CONCLUSION: 1. Echogenic small right kidney characteristic of medical renal disease Josiah Membreno MD Abdomen/Pelvis CT 02/09/17 0000 Signed Impressions: Service Date/Time: Thursday, February 09, 2017 00:46 - CONCLUSION: No acute findings in the abdomen and pelvis. Nathan Boyer MD Chest X-Ray 02/08/17 2233 Signed Impressions: Service Date/Time: February 22:37 - CONCLUSION: 1. Focal density of the lateral right lung base is immediately adjacent to cardiac lead and likely represents artifact. 2. Hyperaeration of the lungs indicating emphysema. Nathan Boyer MD Foot X-Ray 02/08/17 0000 Signed Impressions: Service Date/Time: February 23:46 - CONCLUSION: Evidence of cutaneous ulceration posteriorly at the heel. No radiographic evidence of osteomyelitis. Nathan Boyer MD PE at Discharge GENERAL: Alert, NAD. SKIN: Warm and dry. HEAD: Normocephalic. EYES: No scleral icterus. No injection or drainage. NECK: Supple, trachea midline. No JVD or lymphadenopathy. CARDIOVASCULAR: Regular rate and rhythm without murmurs, gallops, or rubs. RESPIRATORY: Breath sounds equal bilaterally. No accessory muscle use. GASTROINTESTINAL: Abdomen soft, non-tender, nondistended. MUSCULOSKELETAL: No cyanosis, or edema. BACK: Nontender without obvious deformity. No CVA tenderness. Pt update on day of discharge Patient is doing well. He wants to go where he usually lives with home health. He does not want to go to SNF. He can follow up with GI with regards to colonoscopy. Hospital Course Mr. Porter is a pleasant 56 year old male who was admitted to the hospital due to profuse diarrhea, SHANTELLE and anemia. - Anemia - possibly related to multiple factors including kidney disease, anemia of chronic disease. - Hematology cleared for discharge. Colonoscopy can be done outpatient. - GI cancelled Colonoscopy due to poor prep. - Patient received 2 units of PRBCs on 02/09/2017 and Hgb is 9.8 today. - D/C Aspirin due to concern over GI bleed. - Acute on chronic kidney disease - Creatinine improved from 6.5 --> 1.4. - SHANTELLE Was likely due to volume depletion due to diarrhea. - Left heel eschar - appreciate podiatry input. Outpatient follow up in one week. - Zosyn discontinued. We will continue Keflex for a week. Lactinex for two weeks. - Diarrhea - C. Diff PCR not done. Will continue Flagyl for 4 more days. Full code. SCDs. Pt Condition on Discharge: Good Discharge Disposition: Disch w/ Home Health Serv Discharge Time: > 30 minutes Discharge Instructions DIET: Follow Instructions for: Heart Healthy Diet Activities you can perform: Regular-No Restrictions Follow up Referrals: Oncology/Hematology with Cony Bear MD New Medications: Cephalexin (Cephalexin) 500 Mg Cap 500 MG PO Q6H for Infection, #28 CAP 0 Refills Lactobacillus Acidophilus (Lactinex) 1 Chew 1 TAB CHEW TID for Nutritional Supplement for 14 Days, TAB 0 Refills Amlodipine (Norvasc) 5 Mg Tab 5 MG PO DAILY for Blood Pressure Management, #30 TAB 3 Refills Metronidazole (Flagyl) 500 Mg Tab 500 MG PO Q8HR for Infection, #12 TAB Continued Medications: Atorvastatin (Atorvastatin) 20 Mg Tab 20 MG PO HS for CHF, #30 TAB 3 Refills Carvedilol (Coreg) 3.125 Mg Tab 3.125 MG PO Q12HR for CHF, #60 TAB 3 Refills Ferrous Sulfate (Ferosul) 325 Mg (65 Mg Iron) Tablet 325 MG PO BID@12,17 for anemia, #60 TAB 3 Refills Hydrocodone/Acetaminophen (Hydrocodone-Acetamin 5-325 mg) 5 Mg-325 Mg Tablet 1 TAB PO Q4H PRN for pain >4, #20 TAB (This prescription has been renewed) Pantoprazole (Protonix) 40 Mg Tab 40 MG PO DAILY for Reflux, #30 TAB 3 Refills Discontinued Medications: Aspirin DR (Adult Aspirin EC Low Strength) 81 Mg Tabec 81 MG PO DAILY for Prevent Blood Clot, #30 TAB 3 Refills Furosemide (Furosemide) 20 Mg Tab 20 MG PO BID@09,18 for CHF, #60 TAB 3 Refills Lisinopril (Lisinopril) 10 Mg Tab 10 MG PO DAILY, #30 TAB 3 Refills Tramadol (Ultram) 50 Mg Tab 50 MG PO Q4H PRN for PAIN, #20 TAB 0 Refills Sonja Marley DO Feb 15, 2017 14:18
--- NOTE | 2017-02-15 17:46 | HHI.PR ---
Subjective Remarks Follow up for anemia, diarrhea. Patient is currently doing well. However, later in the day, he became anxious knowing that he is going back to [facility]. We planned to discharge patient with home health. However, per CM, [facility] does not feel comfortable taking the patient back in. Objective Vitals Vital Signs Date Time Temp Pulse Resp B/P (MAP) Pulse Ox O2 Delivery O2 Flow Rate FiO2 02/15/17 17:07 148 02/15/17 16:00 82 02/15/17 15:25 97.4 93 19 151/85 (107) 99 02/15/17 15:00 80 02/15/17 14:00 84 02/15/17 13:19 90 02/15/17 12:06 98.4 83 19 165/90 (115) 100 02/15/17 12:00 93 02/15/17 11:00 99 02/15/17 10:00 118 02/15/17 09:00 98 02/15/17 08:00 98.0 101 18 155/75 (101) 97 02/15/17 08:00 96 02/15/17 07:00 97 02/15/17 05:00 105 02/15/17 04:04 99.5 103 16 130/71 (90) 98 02/15/17 04:00 103 02/15/17 02:00 97 02/15/17 01:00 118 02/15/17 00:21 183/81 (115) 02/15/17 00:07 98.1 84 16 206/89 (128) 99 02/15/17 00:00 87 02/14/17 23:00 113 02/14/17 22:00 86 02/14/17 21:00 83 02/14/17 20:11 80 02/14/17 20:00 80 18 173/81 (111) 97 02/14/17 19:00 77 I/O 02/14/17 02/14/17 02/14/17 02/15/17 02/15/17 02/15/17 07:00 15:00 23:00 07:00 15:00 23:00 Intake Total 240 ml 1506 ml 240 ml Output Total 800 ml 1625 ml 1050 ml Balance -560 ml -119 ml -810 ml Intake Oral 240 ml 360 ml 240 ml IV Total 1146 ml Output Urine Total 500 ml 1625 ml 1050 ml Stool Total 300 ml Result Diagram: 02/15/17 1135 02/14/17 0437 Imaging Last Impressions Renal Ultrasound 02/09/17 0000 Signed Impressions: Service Date/Time: Thursday, February 09, 2017 08:36 - CONCLUSION: 1. Echogenic small right kidney characteristic of medical renal disease Josiah Membreno MD Abdomen/Pelvis CT 02/09/17 0000 Signed Impressions: Service Date/Time: Thursday, February 09, 2017 00:46 - CONCLUSION: No acute findings in the abdomen and pelvis. Nathan Boyer MD Chest X-Ray 02/08/173 Signed Impressions: Service Date/Time: February 22:37 - CONCLUSION: 1. Focal density of the lateral right lung base is immediately adjacent to cardiac lead and likely represents artifact. 2. Hyperaeration of the lungs indicating emphysema. Nathan Boyer MD Foot X-Ray 02/08/17 0000 Signed Impressions: Service Date/Time: February 23:46 - CONCLUSION: Evidence of cutaneous ulceration posteriorly at the heel. No radiographic evidence of osteomyelitis. Nathan Boyer MD Objective Remarks GENERAL: Alert, NAD. SKIN: Warm and dry. HEAD: Normocephalic. EYES: No scleral icterus. No injection or drainage. NECK: Supple, trachea midline. No JVD or lymphadenopathy. CARDIOVASCULAR: Regular rate and rhythm without murmurs, gallops, or rubs. RESPIRATORY: Breath sounds equal bilaterally. No accessory muscle use. GASTROINTESTINAL: Abdomen soft, non-tender, nondistended. MUSCULOSKELETAL: No cyanosis, or edema. BACK: Nontender without obvious deformity. No CVA tenderness. A/P Problem List: (1) Acute renal failure ICD Code: N17.9 - Acute kidney failure, unspecified Status: Acute (2) Cellulitis of left foot ICD Code: L03.116 - Cellulitis of left lower limb Status: Acute (3) Hyperkalemia ICD Code: E87.5 - Hyperkalemia Status: Acute (4) Ulcer of left foot ICD Code: L97.529 - Non-pressure chronic ulcer of other part of left foot with unspecified severity Status: Acute (5) Melena ICD Code: K92.1 - Melena Status: Acute (6) Chronic back pain ICD Code: M54.9 - Dorsalgia, unspecified; G89.29 - Other chronic pain Status: Acute (7) Tobacco abuse ICD Code: Z72.0 - Tobacco use Status: Chronic (8) PVD (peripheral vascular disease) ICD Code: I73.9 - Peripheral vascular disease, unspecified Status: Acute (9) Severe sepsis ICD Code: A41.9 - Sepsis, unspecified organism; R65.20 - Severe sepsis without septic shock Assessment and Plan Mr. Porter is a pleasant 56 year old male who was admitted to the hospital due to profuse diarrhea, SHANTELLE and anemia. - Anemia - possibly related to multiple factors including kidney disease, anemia of chronic disease. - Hematology cleared for discharge. Colonoscopy can be done outpatient. - GI cancelled Colonoscopy due to poor prep. - Patient received 2 units of PRBCs and Hgb is 9.8 today. - Acute on chronic kidney disease - Creatinine improved from 6.5 --> 1.4. - SHANTELLE Was likely due to volume depletion due to diarrhea. - Left heel eschar - appreciate podiatry input. Outpatient follow up in one week. - Will switch abx to Keflex PO. - Diarrhea - C. Diff PCR not done. Currently on Flagyl. Switch to PO Flagyl for 4 more days. Full code. SCDs. We discharged patient on 02/15/2017. However, we were told that [facility] will not accept this patient. He needs LTC placement. Problem Qualifiers (1) Acute renal failure: Qualified Codes: N17.9 - Acute kidney failure, unspecified (2) Ulcer of left foot: Qualified Codes: L97.522 - Non-pressure chronic ulcer of other part of left foot with fat layer exposed (3) Chronic back pain: Qualified Codes: M54.5 - Low back pain; G89.29 - Other chronic pain Sonja Marley DO Feb 15, 2017 17:46
[2017-02-15] MEDS ORDERED: METOPROLOL TARTRATE 5 MG/5 ML VIAL IV PUSH PRN (18:00)
[2017-02-15] MEDS: clonazePAM 0.5 MG TAB PO PRN (18:03)
[2017-02-15] MEDS: CEPHALEXIN MONOHYDRATE 500 MG CAP PO SCH (20:48)
[2017-02-15] MEDS: METOPROLOL TARTRATE 25 MG TAB PO SCH (20:48)
[2017-02-16] VITALS (21 sets, daily range): BP systolic 122–162; BP diastolic 70–84; PULSE 68–94; RESP 18–20; TEMP 98–99.2; O2SAT 96–100
[2017-02-16] MEDS: CHLORHEXIDINE GLUCONATE 2 % 1 PACK (2 CLOTHS) TOP SCH (03:40)
[2017-02-16] MEDS: metroNIDAZOLE 500 MG TAB PO SCH ×3 (05:50→23:06)
[2017-02-16] MEDS: CEPHALEXIN MONOHYDRATE 500 MG CAP PO SCH ×3 (05:50→23:07)
[2017-02-16] MEDS: INSULIN NovoLIN REGULAR SUPPLEMENTAL SCALE SQ SCH ×4 (08:00→19:53)
[2017-02-16] MEDS: PANTOPRAZOLE SOD 40 MG DELAYED RELEASE TAB PO SCH (08:47)
[2017-02-16] MEDS: amLODIPine BESYLATE 5 MG TAB PO SCH (08:47)
[2017-02-16] MEDS: METOPROLOL TARTRATE 25 MG TAB PO SCH ×2 (08:47→19:46)
[2017-02-16] MEDS: ACETAMINOPHEN/HYDROcodone 325 MG/5 MG TAB PO PRN ×2 (08:49→23:07)
[2017-02-16] MEDS: SODIUM CHLORIDE 0.9% FLUSH 10 ML FLUSH IV FLUSH SCH ×2 (08:49→19:46)
--- NOTE | 2017-02-16 11:58 | HHI.PR ---
Subjective Remarks Follow up for anemia, diarrhea, Afib. Patient is currently doing well. Does not talk much. Currently in normal sinus rhythm. Objective Vitals Vital Signs Date Time Temp Pulse Resp B/P (MAP) Pulse Ox O2 Delivery O2 Flow Rate FiO2 02/16/17 11:04 80 02/16/17 10:57 16 02/16/17 08:45 98.4 86 18 162/81 (108) 100 02/16/17 06:00 86 02/16/17 05:00 84 02/16/17 04:09 99.2 88 20 122/70 (87) 100 02/16/17 04:00 86 02/16/17 03:00 86 02/16/17 02:00 86 02/16/17 01:00 78 02/16/17 00:00 98.0 81 20 132/74 (93) 98 02/16/17 00:00 94 02/15/17 23:00 84 02/15/17 22:00 92 02/15/17 21:49 20 02/15/17 21:00 100 02/15/17 20:00 129 02/15/17 19:20 99.3 105 20 95/54 (68) 97 02/15/17 19:00 126 02/15/17 18:34 114/64 (81) 02/15/17 18:09 108/84 (92) 02/15/17 18:07 120/70 (87) 02/15/17 18:05 128/88 (101) 02/15/17 18:05 148 02/15/17 17:07 148 02/15/17 16:00 82 02/15/17 15:25 97.4 93 19 151/85 (107) 99 02/15/17 15:00 80 02/15/17 14:00 84 02/15/17 13:19 90 02/15/17 12:06 98.4 83 19 165/90 (115) 100 02/15/17 12:00 93 I/O 02/15/17 02/15/17 02/15/17 02/16/17 02/16/17 02/16/17 07:00 15:00 23:00 07:00 15:00 23:00 Intake Total 240 ml 720 ml 250 ml Output Total 1050 ml 350 ml 450 ml Balance -810 ml 370 ml -200 ml Intake Oral 240 ml 720 ml 250 ml Output Urine Total 1050 ml 350 ml 450 ml # Bowel Movements 0 0 Result Diagram: 02/15/17 1135 02/14/17 0437 Objective Remarks GENERAL: Alert, NAD. SKIN: Warm and dry. HEAD: Normocephalic. EYES: No scleral icterus. No injection or drainage. NECK: Supple, trachea midline. No JVD or lymphadenopathy. CARDIOVASCULAR: Regular rate and rhythm without murmurs, gallops, or rubs. RESPIRATORY: Breath sounds equal bilaterally. No accessory muscle use. GASTROINTESTINAL: Abdomen soft, non-tender, nondistended. MUSCULOSKELETAL: No cyanosis, or edema. BACK: Nontender without obvious deformity. No CVA tenderness. A/P Problem List: (1) Acute renal failure ICD Code: N17.9 - Acute kidney failure, unspecified Status: Acute (2) Cellulitis of left foot ICD Code: L03.116 - Cellulitis of left lower limb Status: Acute (3) Hyperkalemia ICD Code: E87.5 - Hyperkalemia Status: Acute (4) Ulcer of left foot ICD Code: L97.529 - Non-pressure chronic ulcer of other part of left foot with unspecified severity Status: Acute (5) Melena ICD Code: K92.1 - Melena Status: Acute (6) Chronic back pain ICD Code: M54.9 - Dorsalgia, unspecified; G89.29 - Other chronic pain Status: Acute (7) Tobacco abuse ICD Code: Z72.0 - Tobacco use Status: Chronic (8) PVD (peripheral vascular disease) ICD Code: I73.9 - Peripheral vascular disease, unspecified Status: Acute (9) Severe sepsis ICD Code: A41.9 - Sepsis, unspecified organism; R65.20 - Severe sepsis without septic shock Assessment and Plan Mr. Porter is a pleasant 56 year old male who was admitted to the hospital due to profuse diarrhea, SHANTELLE and anemia. - Anemia - possibly related to multiple factors including kidney disease, anemia of chronic disease. - Hematology cleared for discharge. Colonoscopy can be done outpatient. - GI cancelled Colonoscopy due to poor prep. - Patient received 2 units of PRBCs and Hgb is 9.8 on 02/15/2017. - Acute on chronic kidney disease - Creatinine improved from 6.5 --> 1.4. - SHANTELLE Was likely due to volume depletion due to diarrhea. - Left heel eschar - appreciate podiatry input. Outpatient follow up in one week. - Will switch abx to Keflex PO. - Diarrhea - C. Diff PCR not done. Currently on Flagyl. Switched to PO Flagyl Full code. SCDs. [facility] will not accept this patient. He needs LTC placement. CM is working on LTC placement. Problem Qualifiers (1) Acute renal failure: Qualified Codes: N17.9 - Acute kidney failure, unspecified (2) Ulcer of left foot: Qualified Codes: L97.522 - Non-pressure chronic ulcer of other part of left foot with fat layer exposed (3) Chronic back pain: Qualified Codes: M54.5 - Low back pain; G89.29 - Other chronic pain Sonja Marley DO Feb 16, 2017 11:58
[2017-02-16] MEDS: oxyCODONE/ACETAMINOPHEN 10 MG/325 MG TAB PO PRN ×3 (13:30→19:06)
[2017-02-16] MEDS: FERROUS SULFATE 325 MG (65 MG ELEMENTAL IRON) TAB PO SCH ×2 (13:30→18:33)
--- NOTE | 2017-02-16 14:35 | EKG ---
Date Performed: 02/15/2017 Time Performed: 17:42:44 PTAGE: 56 years EKG: Atrial fibrillation with uncontrolled ventricular response Possible left ventricular hypert rophy Extensive ST-T changes may be due to hypertrophy and/or ischemia Abnormal ECG PREVIOUS TRACING : 02/09/2017 01.57 DOCTOR: David Vera Interpretating Date/Time 02/16/2017 14:33:46
--- NOTE | 2017-02-16 14:35 | EKG ---
Date Performed: 02/15/2017 Time Performed: 21:29:42 PTAGE: 56 years EKG: Sinus rhythm with PAC(s) Inferior/lateral ST-T changes may be due to myocardial ischemia Abnormal ECG PREVIOUS TRACING : 02/15/2017 17.42 Compared to prior tracing, patient is now in sinus rhythm. DOCTOR: David Vera Interpretating Date/Time 02/16/2017 14:34:30
[2017-02-16] MEDS: clonazePAM 0.5 MG TAB PO PRN (20:55)
[2017-02-17] VITALS (22 sets, daily range): BP systolic 131–179; BP diastolic 66–93; PULSE 65–89; RESP 16–22; TEMP 97.5–98.5; O2SAT 95–100
[2017-02-17] MEDS: CHLORHEXIDINE GLUCONATE 2 % 1 PACK (2 CLOTHS) TOP SCH (04:00)
[2017-02-17] MEDS: CEPHALEXIN MONOHYDRATE 500 MG CAP PO SCH ×3 (05:05→21:24)
[2017-02-17] MEDS: metroNIDAZOLE 500 MG TAB PO SCH ×3 (05:05→21:23)
[2017-02-17] MEDS: METOPROLOL TARTRATE 25 MG TAB PO SCH ×2 (07:30→19:51)
[2017-02-17] MEDS: SODIUM CHLORIDE 0.9% FLUSH 10 ML FLUSH IV FLUSH SCH ×2 (07:30→19:49)
[2017-02-17] MEDS: PANTOPRAZOLE SOD 40 MG DELAYED RELEASE TAB PO SCH (07:30)
[2017-02-17] MEDS: amLODIPine BESYLATE 5 MG TAB PO SCH (07:30)
[2017-02-17] MEDS: COLLAGENASE OINT 30 GM TUBE EXTERNAL SCH (07:31)
[2017-02-17] MEDS: INSULIN NovoLIN REGULAR SUPPLEMENTAL SCALE SQ SCH ×4 (07:31→20:01)
[2017-02-17] MEDS: ACETAMINOPHEN/HYDROcodone 325 MG/5 MG TAB PO PRN (07:32)
--- NOTE | 2017-02-17 10:39 | HHI.PR ---
Subjective Remarks This is a pleasant 56 y/o male who was admitted due to Diarrhea, Anemia, acute Kidney Injury, Hematology cleared for discharge GI specialist cancelled Colonoscopy due to poor prep, status post two units of PRBCs, his Kidney injury improved with IV fluids continue Flagyl by mouth for Diarrhea, awaiting for [facility] care facility acceptance. 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 Objective Vital Signs Date Time Temp Pulse Resp B/P (MAP) Pulse Ox O2 Delivery O2 Flow Rate FiO2 02/17/17 10:08 72 02/17/17 09:22 66 02/17/17 08:34 18 02/17/17 08:15 100 Room Air 02/17/17 08:15 72 02/17/17 08:15 97.5 89 16 179/89 (119) 100 02/17/17 06:00 82 02/17/17 05:00 76 02/17/17 04:00 Room Air 02/17/17 04:00 78 02/17/17 04:00 98.5 78 18 156/76 (102) 95 02/17/17 03:00 75 02/17/17 02:00 73 02/17/17 01:00 74 02/17/17 00:00 77 02/17/17 00:00 98.4 77 18 157/81 (106) 96 02/17/17 00:00 Room Air 02/16/17 23:00 74 02/16/17 22:00 77 02/16/17 21:00 80 02/16/17 20:00 98.2 74 20 131/81 (98) 96 02/16/17 20:00 74 02/16/17 18:00 82 02/16/17 16:00 98.8 68 20 154/84 (107) 98 02/16/17 15:00 88 02/16/17 13:00 88 02/16/17 12:00 98.0 70 18 155/82 (106) 98 02/16/17 11:04 80 I/O 1/12/18 102/16/17 02/17/17 02/17/17 02/17/17 07:00 15:00 23:00 07:00 15:00 23:00 Intake Total 250 ml 480 ml Output Total 450 ml 1200 ml 700 ml Balance -200 ml -1200 ml -220 ml Intake Oral 250 ml 480 ml Output Urine Total 450 ml 1200 ml 700 ml # Bowel Movements 0 0 0 Result Diagram: 02/15/17 1135 02/14/17 0437 Imaging Last Impressions Renal Ultrasound 02/09/17 0000 Signed Impressions: Service Date/Time: Thursday, February 09, 2017 08:36 - CONCLUSION: 1. Echogenic small right kidney characteristic of medical renal disease Josiah Membreno MD Abdomen/Pelvis CT 02/09/17 0000 Signed Impressions: Service Date/Time: Thursday, February 09, 2017 00:46 - CONCLUSION: No acute findings in the abdomen and pelvis. Nathan Boyer MD Chest X-Ray 02/08/173 Signed Impressions: Service Date/Time: February 22:37 - CONCLUSION: 1. Focal density of the lateral right lung base is immediately adjacent to cardiac lead and likely represents artifact. 2. Hyperaeration of the lungs indicating emphysema. Nathan Boyer MD Foot X-Ray 02/08/17 0000 Signed Impressions: Service Date/Time: February 23:46 - CONCLUSION: Evidence of cutaneous ulceration posteriorly at the heel. No radiographic evidence of osteomyelitis. Nathan Boyer MD Procedures None Other Results Laboratory Tests Test 02/08/17 22:59 02/09/17 00:10 02/09/17 01:23 02/09/17 02:20 Lipase 183 U/L Ethyl Alcohol Level LESS THAN 3 MG/DL Blood Smear Pathologist Review Urine Color LIGHT-YELLOW Urine Turbidity CLEAR Urine pH 5.5 Urine Specific [place] 1.010 Urine Protein NEG mg/dL Urine Glucose (UA) 150 mg/dL Urine Ketones NEG mg/dL Urine Occult Blood TRACE Urine Nitrite NEG Urine Bilirubin NEG Urine Urobilinogen LESS THAN 2.0 MG/DL Urine Leukocyte Esterase NEG Urine RBC LESS THAN 1 /hpf Urine WBC LESS THAN 1 /hpf Urine Squamous Epithelial Cells <1 /hpf Urine Amorphous Sediment RARE Urine Mucus FEW /lpf Microscopic Urinalysis Comment CATH-CULT NOT IND Urine Eosinophils NONE SEEN /HPF Urine Random Creatinine 80.6 MG/DL Urine Random Sodium 41 MEQ/L Nasal Screen MRSA (PCR) MRSA NOT DETECTED Test 02/09/17 03:56 02/09/17 14:13 02/10/17 06:10 02/12/17 11:40 Vitamin B12 Level 1092 PG/ML Methylmalonic Acid 0.46 nmol/mL Folate 9.6 NG/ML Troponin I 0.49 NG/ML Prothrombin Time 12.2 SEC Prothromb Time International Ratio 1.2 RATIO Activated Partial Thromboplast Time 28.7 SEC Lactic Acid Level 0.7 mmol/L Iron Level 20 MCG/DL Total Iron Binding Capacity 210 MCG/DL Percent Iron Saturation 9.5 % Ferritin 129 NG/ML Total Bilirubin 0.4 MG/DL Direct Bilirubin 0.1 MG/DL Indirect Bilirubin 0.3 MG/DL Aspartate Amino Transf (AST/SGOT) 77 U/L Alanine Aminotransferase (ALT/SGPT) 31 U/L Alkaline Phosphatase 69 U/L Thyroxine (T4) 9.3 MCG/DL Thyroid Stimulating Hormone 3rd Gen 0.760 uIU/ML Test 02/12/17 19:29 02/13/17 05:00 02/14/17 04:37 02/15/17 11:35 Erythrocyte Sedimentation Rate 55 mm/hr Reticulocyte Count 2.8 % Absolute Reticulocyte Count 91.9 MIL/L Erythropoietin 25.4 mIU/mL C-Reactive Protein 11.70 MG/DL Total Protein 5.6 GM/DL Albumin/Globulin Ratio 1.28 Xdket-1-Xkaficwzq 0.30 GM/DL Snthh-2-Ccnxhqryh 0.78 GM/DL Beta Globulins 0.56 GM/DL Gamma Globulins 0.82 GM/DL Electrophoresis Pathologist Comment Rheumatoid Factor Screen NEGATIVE Rheumatoid Factor Titer IU/ML Anti-Nuclear Antibody Screen NEG Blood Urea Nitrogen 10 MG/DL Creatinine 1.40 MG/DL Random Glucose 93 MG/DL Albumin 2.3 GM/DL Calcium Level 7.7 MG/DL Phosphorus Level 1.2 MG/DL Magnesium Level 1.5 MG/DL Sodium Level 134 MEQ/L Potassium Level 3.6 MEQ/L Chloride Level 100 MEQ/L Carbon Dioxide Level 27.0 MEQ/L Anion Gap 7 MEQ/L Estimat Glomerular Filtration Rate 52 ML/MIN Total Creatine Kinase 1386 U/L Creatine Kinase MB 6.3 NG/ML Creatine Kinase MB % 0.5 % White Blood Count 7.6 TH/MM3 Red Blood Count 3.07 MIL/MM3 Hemoglobin 9.8 GM/DL Hematocrit 28.4 % Mean Corpuscular Volume 92.5 FL Mean Corpuscular Hemoglobin 31.8 PG Mean Corpuscular Hemoglobin Concent 34.4 % Red Cell Distribution Width 15.5 % Platelet Count 219 TH/MM3 Mean Platelet Volume 7.7 FL Neutrophils (%) (Auto) 75.6 % Lymphocytes (%) (Auto) 11.6 % Monocytes (%) (Auto) 8.7 % Eosinophils (%) (Auto) 3.3 % Basophils (%) (Auto) 0.8 % Neutrophils # (Auto) 5.7 TH/MM3 Lymphocytes # (Auto) 0.9 TH/MM3 Monocytes # (Auto) 0.7 TH/MM3 Eosinophils # (Auto) 0.3 TH/MM3 Basophils # (Auto) 0.1 TH/MM3 CBC Comment DIFF FINAL Differential Comment Objective Remarks GENERAL: Alert, NAD. SKIN: Warm and dry. HEAD: Normocephalic. EYES: No scleral icterus. No injection or drainage. NECK: Supple, trachea midline. No JVD or lymphadenopathy. CARDIOVASCULAR: Regular rate and rhythm without murmurs, gallops, or rubs. RESPIRATORY: Breath sounds equal bilaterally. No accessory muscle use. GASTROINTESTINAL: Abdomen soft, non-tender, nondistended. MUSCULOSKELETAL: No cyanosis, or edema. BACK: Nontender without obvious deformity. No CVA tenderness. Medications and IVs Current Medications Medications (Trade) Dose Ordered Sig/Mohit Route Start Time Stop Time Status Last Admin (Ferrous Sulfate) 325 mg BID@12,17 PO 02/09/17 12:00 02/16/17 18:33 (NS Flush) 2 ml UNSCH PRN IV FLUSH 02/09/17 01:45 (NS Flush) 2 ml BID IV FLUSH 02/09/17 09:00 02/17/17 07:30 (Tylenol) 650 mg Q6H PRN PO 02/09/17 01:45 02/09/17 21:01 ([place] 5-325 Mg) 1 tab Q4H PRN PO 02/09/17 01:45 02/17/17 07:32 (Morphine Inj) 2 mg Q2H PRN IV PUSH 02/09/17 01:45 02/11/17 16:18 (Zofran Inj) 4 mg Q6H PRN IV PUSH 02/09/17 01:45 (Albuterol Neb) 2.5 mg Q2HR NEB PRN INH 02/09/17 01:45 Miscellaneous Information 1 Q361D XX 02/09/17 01:45 02/09/17 01:45 (Chlorhexidine 2% Cloth) Taper DAILY@04 TOP 02/09/17 04:00 02/05/18 03:59 02/09/17 03:58 (Chlorhexidine 2% Cloth) 3 pack UNSCH PRN TOP 02/09/17 01:45 (D50w (Vial) Inj) 50 ml UNSCH PRN IV PUSH 02/09/17 02:15 02/09/17 13:17 (Glucagon Inj) 1 mg UNSCH PRN OTHER 02/09/17 02:15 (NovoLIN R SUPPLEMENTAL SCALE) 1 ACHS SLIDING SCALE SQ 02/09/17 08:00 02/14/17 17:39 (Apresoline Inj) 10 mg Q1HR PRN IV PUSH 02/09/17 20:45 02/15/17 00:12 (Nitroglycerin 2% Oint) 1 inch Q6HR PRN TOPICAL 02/09/17 20:45 (Percocet 10-325 Mg) 1 tab Q4H PRN PO 02/10/17 02:00 02/16/17 19:06 (Protonix) 40 mg DAILY PO 02/11/17 12:15 02/17/17 07:30 (Santyl Oint) 1 applic DAILY EXTERNAL 02/14/17 09:00 02/17/17 07:31 (Norvasc) 5 mg DAILY PO 02/16/17 09:00 02/17/17 07:30 (Flagyl) 500 mg Q8HR PO 02/15/17 14:00 02/19/17 13:59 02/17/17 05:05 (KlonoPIN) 0.5 mg Q8HR PRN PO 02/15/17 17:30 02/15/17 18:03 (Keflex) 500 mg Q8HR PO 02/15/17 22:00 02/22/17 21:59 02/17/17 05:05 (Lopressor) 25 mg Q12HR PO 02/15/17 21:00 02/17/17 07:30 A/P Assessment and Plan 1. Acute kidney injury improved 2. Diarrhea - C. Diff PCR not done. Currently on Flagyl. Switched to PO Flagyl improved 3. Anemia secondary to kidney disease, triage specialist cleared for discharge, Colonoscopy will be performed as outpatient GI specialist cancelled Colonoscopy due to Poor prep, received two units of PRBCs, hemoglobin 9.8 4. Atrial fibrillation to continue Metoprolol 25 mg BID, [id number] score 1 hypertension, on hold aspirin. due to concern with GI bleed. 5. Left heel eschar - appreciate podiatry input. Outpatient follow up in one week. - Will switch abx to Keflex PO. as per Vascular human resources support specialist recommended AKA but patient refused any procedure. 6. Tobacco dependence strongly recommended to stop smoking Full code. SCDs. Discharge Planning [facility] will not accept this patient. He needs LTC placement. CM is working on LTC placement. Austin Adhikari MD Feb 17, 2017 10:39
[2017-02-17] MEDS: MAGNESIUM OXIDE 400 MG TAB PO SCH ×2 (12:01→19:51)
[2017-02-17] MEDS: FERROUS SULFATE 325 MG (65 MG ELEMENTAL IRON) TAB PO SCH ×2 (12:01→16:09)
--- NOTE | 2017-02-17 12:16 | RADRPT ---
EXAM DATE/TIME: 02/17/2017 11:39 [facility] COMPARISON: CTA CAROTID ARTERIES W 3D RECON, June 07, 2016, 16:42. INDICATIONS : Chronic airway obstruction. RADIATION DOSE: 5.79 CTDIvol (mGy) MEDICAL HISTORY : Cardiovascular disease. Stroke Renal failure, chronic. Hypertension. SURGICAL HISTORY : None. ENCOUNTER: Initial ACUITY: 1 day PAIN SCALE: 0/10 LOCATION: Bilateral chest TECHNIQUE: Volumetric scanning of the chest was performed. Using automated exposure control and adjustment of t he mA and/or kV according to patient size, radiation dose was kept as low as reasonably achievable to obtain optimal diagnostic quality images. DICOM format image data is available electronically for r eview and comparison. Follow-up recommendations for detected pulmonary nodules are based at a minimum on nodule size and pa tient risk factors according to Fleischner Society Guidelines. FINDINGS: LUNGS: Prominent upper lobe pulmonary emphysema left greater than right. Pleural-based opacity at the apices right greater than left likely representing scarring. No gross change from CTA carotid of 06/07/2016. Surgical clip the anterior margin of the right upper lung. Dependent atelectasis of left lower lobe. PLEURAE: Small left pleural effusion. MEDIASTINUM: Coronary artery calcification. No enlarged lymph nodes. AXILLAE: Within normal limits. No lymphadenopathy. MUSCULOSKELETAL: Within normal limits for patient age. MISCELLANEOUS: The visualized upper abdominal organs demonstrate no acute abnormality. CONCLUSION: 1. Prominent pulmonary emphysema. 2. Opacity of the lung apices likely represent scarring. 3. Left lower lobe atelectasis and small left pleural effusion. 4. Coronary artery calcification. Nathan Boyer MD on February 17, 2017 at 12:08 Board Certified Radiologist. This report was verified electronically.
[2017-02-17] MEDS: oxyCODONE/ACETAMINOPHEN 10 MG/325 MG TAB PO PRN ×3 (13:50→23:57)
--- NOTE | 2017-02-17 15:04 | PD.CAR.PN ---
CVT Progress Note Subjective/Hospital Course: 56-year-old male in functional decline, contracted in the position with the macerated left heel ulcer and some necrosis over the Achilles tendon and the dorsum of the left calf I agree with Dr. Chaparro the patient is not a candidate for debridement because this would expose the bone. Matter fact the bone is already sort of exposed because the eschar on the heel is macerated and starting to get soft At this point I can only recommend to do nothing but dry dressings or for the patient to undergo left above-knee amputation. There is no emergency to amputation however eventually it will come to the point of patient's gone abdomen necrotic foot and will need the same I discussed this with the patient and he will think about it Full consult has been dictated Objective: Vital Signs Date Time Temp Pulse Resp B/P (MAP) Pulse Ox O2 Delivery O2 Flow Rate FiO2 02/17/17 14:43 16 02/17/17 14:06 65 02/17/17 13:13 73 02/17/17 12:30 72 02/17/17 11:18 97.6 75 16 134/77 (96) 100 02/17/17 11:18 70 02/17/17 11:18 100 Room Air 02/17/17 10:08 72 02/17/17 09:22 66 02/17/17 08:34 18 02/17/17 08:15 100 Room Air 02/17/17 08:15 72 02/17/17 08:15 97.5 89 16 179/89 (119) 100 02/17/17 06:00 82 02/17/17 05:00 76 02/17/17 04:00 Room Air 02/17/17 04:00 78 02/17/17 04:00 98.5 78 18 156/76 (102) 95 02/17/17 03:00 75 02/17/17 02:00 73 02/17/17 01:00 74 02/17/17 00:00 77 02/17/17 00:00 98.4 77 18 157/81 (106) 96 02/17/17 00:00 Room Air 02/16/17 23:00 74 02/16/17 22:00 77 02/16/17 21:00 80 02/16/17 20:00 98.2 74 20 131/81 (98) 96 02/16/17 20:00 74 02/16/17 18:00 82 02/16/17 16:00 98.8 68 20 154/84 (427) 60 Labs: Laboratory Tests Test 02/17/17 14:28 Result Diagram: 02/15/17 1135 02/14/17 0437 Filomena Castro MD Feb 17, 2017 15:04
--- NOTE | 2017-02-17 17:13 | MB ---
cc: FILOMENA BYERS MD DATE OF CONSULTATION 02/16/2017 REASON FOR CONSULTATION Peripheral vascular disease, stroke with contractures, functional decline, coronary artery disease, CHF and hypertension, ulcer of the left heel and front of the foot. HISTORY OF PRESENT ILLNESS This unfortunate 56-year-old male is admitted to the hospital with multiple problems. At this time, he is admitted with rising creatinine and BUN, dehydration, severe diarrhea. In the process of the workup, he was found to have a large decubitus heel ulcer and necrosis of the dorsal portion of the calf in area of the Achilles tendon, hence, the consultation. PAST MEDICAL HISTORY Past medical history is very complex. 1. The patient suffered several years ago a right hemispheric stroke resulting in left hemiplegia which turned into hemiparesis. In the process, the patient developed contractures. This is based on the right internal carotid artery occlusion. 2. Chronic renal insufficiency, 3. Hypertension, 4. Congestive heart failure with ejection fraction 35%. PAST SURGICAL HISTORY 1. Right thoracostomy for a pneumothorax 2. Right eye surgery 3. Several colonoscopies and endoscopies. MEDICATIONS Can be found on the record. SOCIAL HISTORY The patient is a [place] resident but continues to smoke despite all these things happening to him. He used to be a heavy drinker but quit. PHYSICAL EXAMINATION GENERAL: A 56-year-old male appearing emaciated with functional decline. HEENT: Normocephalic. No trauma to the head. Pupils equally reactive. Extraocular muscles intact. NECK: Supple. Left-sided carotid pulses. On the right side, he has no pulse. CHEST: Bilateral breath sounds decreased over both lung [place]. The patient has severe COPD and atrophy of the chest wall musculature. HEART: Regular rhythm. ABDOMEN: Soft, patulous, active bowel sounds. EXTREMITIES: The patient has contracture of both lower extremities. He is in the position with inability to extend either hips or the knees. Left foot reveals a large heel ulcer which is partially macerated and at the level of the bone at this point just by palpating it. The patient also has a necrotic area over the dorsum of the left calf over the Achilles tendon. Vascular olvera, the patient does have very weak femoral pulses and distal dorsalis pedis bilateral by Doppler. IMPRESSION/RECOMMENDATIONS A 56-year-old male with severe neurologic deficit contractures, low ejection fraction, coronary artery disease and functional decline. At this point, I agree with jalousie installer this patient is a poor surgical candidate for any debridement. Santyl that was applied for a few days was not probably a good idea because it made the wound sort of macerated and turned dry gangrene into wet gangrene. At this point, I can feel the bone underneath the eschar which is kind of soft and mushy. If this was a dry eschar, I would be definitely happier. At this point, there are no options but above-knee amputation or doing nothing and clearly the patient is a poor candidate for any surgery, but I would recommend above-knee amputation to make this patient more comfortable and prevent any further necrosis. There is no emergency to it and the patient should think about it. Thank you much for referral. Filomena MAN /2:54 PM /4:48 PM
[2017-02-17] MEDS: clonazePAM 0.5 MG TAB PO PRN (19:51)
[2017-02-17] MEDS: hydrALAZINE HCL 20 MG/ML VIAL IV PUSH PRN (20:53)
[2017-02-17] MEDS: NITROGLYCERIN 2% OINT 1 GM PACKET TOPICAL PRN (20:54)
[2017-02-17] MEDS: MORPHINE SULFATE 2 MG/ML INJ IV PUSH PRN (21:33)
[2017-02-18] VITALS (23 sets, daily range): BP systolic 113–187; BP diastolic 52–86; PULSE 62–93; RESP 16–22; TEMP 97.8–98.6; O2SAT 97–100
[2017-02-18] MEDS: CHLORHEXIDINE GLUCONATE 2 % 1 PACK (2 CLOTHS) TOP SCH (04:00)
[2017-02-18] MEDS: metroNIDAZOLE 500 MG TAB PO SCH ×3 (05:04→20:03)
[2017-02-18] MEDS: oxyCODONE/ACETAMINOPHEN 10 MG/325 MG TAB PO PRN ×4 (05:04→19:47)
[2017-02-18] MEDS: CEPHALEXIN MONOHYDRATE 500 MG CAP PO SCH ×3 (05:05→20:05)
[2017-02-18] MEDS: MORPHINE SULFATE 2 MG/ML INJ IV PUSH PRN ×2 (05:59→20:03)
[2017-02-18] MEDS: INSULIN NovoLIN REGULAR SUPPLEMENTAL SCALE SQ SCH ×4 (08:00→20:04)
[2017-02-18] MEDS: SODIUM CHLORIDE 0.9% FLUSH 10 ML FLUSH IV FLUSH SCH ×2 (08:15→19:48)
[2017-02-18] MEDS: amLODIPine BESYLATE 5 MG TAB PO SCH (08:15)
[2017-02-18] MEDS: METOPROLOL TARTRATE 25 MG TAB PO SCH ×2 (08:15→19:47)
[2017-02-18] MEDS: COLLAGENASE OINT 30 GM TUBE EXTERNAL SCH (08:15)
[2017-02-18] MEDS: MAGNESIUM OXIDE 400 MG TAB PO SCH ×2 (08:15→19:47)
[2017-02-18] MEDS: PANTOPRAZOLE SOD 40 MG DELAYED RELEASE TAB PO SCH (08:15)
[2017-02-18 10:29] LABS: BICARBONATE 26.7 MEQ/L (21.0-32.0); CALCIUM 8.1 MG/DL (8.5-10.1); CREATININE 1.09 MG/DL (0.60-1.30)
[2017-02-18] MEDS: FERROUS SULFATE 325 MG (65 MG ELEMENTAL IRON) TAB PO SCH ×2 (12:00→16:17)
--- NOTE | 2017-02-18 13:45 | PD.CAR.PN ---
CVT Progress Note Subjective/Hospital Course: 56-year-old male in functional decline, contracted in the position with the macerated left heel ulcer and some necrosis over the Achilles tendon and the dorsum of the left calf I agree with Dr. Chaparro the patient is not a candidate for debridement because this would expose the bone. Matter fact the bone is already sort of exposed because the eschar on the heel is macerated and starting to get soft At this point I can only recommend to do nothing but dry dressings or for the patient to undergo left above-knee amputation. There is no emergency to amputation however eventually it will come to the point of patient's gone abdomen necrotic foot and will need the same I discussed this with the patient and he will think about it Full consult has been dictated 02/18/17 No change in current status Patient still refuses amputation and sooner later this macerated foot gangrene will turn into sepsis and it will spell patient's demise I've discussed this with him and if he decides to have left above-knee amputation be happy to see the patient reconsult Objective: Vital Signs Date Time Temp Pulse Resp B/P (MAP) Pulse Ox O2 Delivery O2 Flow Rate FiO2 02/18/17 13:03 65 02/18/17 12:01 65 02/18/17 11:28 100 Room Air 02/18/17 11:28 74 02/18/17 11:28 98.4 63 16 124/56 (78) 100 02/18/17 10:05 70 02/18/17 09:19 16 02/18/17 09:17 69 02/18/17 08:00 98 Room Air 02/18/17 08:00 84 02/18/17 08:00 98.6 83 16 187/86 (119) 98 02/18/17 06:00 86 02/18/17 05:00 80 02/18/17 04:00 Room Air 02/18/17 04:00 98.0 81 20 146/66 (92) 97 02/18/17 04:00 81 02/18/17 03:00 83 02/18/17 02:00 82 02/18/17 01:00 82 02/18/17 00:00 97.8 93 22 136/52 (80) 97 02/18/17 00:00 93 02/18/17 00:00 Room Air 02/17/17 23:00 87 02/17/17 22:00 82 02/17/17 22:00 131/66 (87) 02/17/17 21:00 74 02/17/17 20:00 77 02/17/17 20:00 98.1 77 22 179/93 (121) 98 02/17/17 20:00 Room Air 02/17/17 18:04 81 02/17/17 17:07 80 02/17/17 16:00 75 02/17/17 15:23 80 02/17/17 15:23 97.5 71 16 163/80 (107) 100 02/17/17 15:23 100 Room Air 02/17/17 14:06 65 Labs: Laboratory Tests Test 02/18/17 10:00 Blood Urea Nitrogen 14 MG/DL (7-18) Creatinine 1.09 MG/DL (0.60-1.30) Random Glucose 101 MG/DL (74-106) Calcium Level 8.1 MG/DL (8.5-10.1) Sodium Level 140 MEQ/L (136-145) Potassium Level 4.3 MEQ/L (3.5-5.1) Chloride Level 108 MEQ/L (98-107) Carbon Dioxide Level 26.7 MEQ/L (21.0-32.0) Anion Gap 5 MEQ/L (5-15) Estimat Glomerular Filtration Rate 70 ML/MIN (>89) Total Creatine Kinase 363 U/L (39-308) Creatine Kinase MB 4.4 NG/ML (0.5-3.6) Creatine Kinase MB % 1.2 % (0.0-4.0) Result Diagram: 02/15/17 1135 02/18/17 1000 Filomena Castro MD Feb 18, 2017 13:45
--- NOTE | 2017-02-18 17:02 | HHI.PR ---
Subjective Remarks This is a pleasant 56 y/o male who was admitted due to Diarrhea, Anemia, acute Kidney Injury, Hematology cleared for discharge GI specialist cancelled Colonoscopy due to poor prep, status post two units of PRBCs, his Kidney injury improved with IV fluids continue Flagyl by mouth for Diarrhea, awaiting for [facility] care facility acceptance. 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 02/18: Stable in his bedroom, no nausea, vomit or diarrhea, the patient seen again by Vascular med specialist he continue to refuse any procedure. Objective Vital Signs Date Time Temp Pulse Resp B/P (MAP) Pulse Ox O2 Delivery O2 Flow Rate FiO2 02/18/17 16:33 81 02/18/17 16:09 16 02/18/17 15:20 100 Room Air 02/18/17 15:20 98.0 62 16 155/82 (106) 100 02/18/17 15:20 81 02/18/17 14:29 82 02/18/17 13:03 65 02/18/17 12:01 65 02/18/17 11:28 100 Room Air 02/18/17 11:28 74 02/18/17 11:28 98.4 63 16 124/56 (78) 100 02/18/17 10:05 70 02/18/17 09:17 69 02/18/17 08:00 98 Room Air 02/18/17 08:00 84 02/18/17 08:00 98.6 83 16 187/86 (119) 98 02/18/17 06:00 86 02/18/17 05:00 80 02/18/17 04:00 Room Air 02/18/17 04:00 98.0 81 20 146/66 (92) 97 02/18/17 04:00 81 02/18/17 03:00 83 02/18/17 02:00 82 02/18/17 01:00 82 02/18/17 00:00 97.8 93 22 136/52 (80) 97 02/18/17 00:00 93 02/18/17 00:00 Room Air 02/17/17 23:00 87 02/17/17 22:00 82 02/17/17 22:00 131/66 (87) 02/17/17 21:00 74 02/17/17 20:00 77 02/17/17 20:00 98.1 77 22 179/93 (121) 98 02/17/17 20:00 Room Air 02/17/17 18:04 81 02/17/17 17:07 80 I/O 02/17/17 02/17/17 02/17/17 02/18/17 02/18/17 02/18/17 07:00 15:00 23:00 07:00 15:00 23:00 Intake Total 480 ml 600 ml 480 ml Output Total 700 ml 650 ml 752 ml Balance -220 ml -50 ml -272 ml Intake Oral 480 ml 600 ml 480 ml Output Urine Total 700 ml 650 ml 752 ml # Bowel Movements 0 0 2 0 Result Diagram: 02/15/17 1135 02/18/17 1000 Imaging Last Impressions Chest CT 02/17/17 0000 Signed Impressions: Service Date/Time: Friday, February 17, 2017 11:39 - CONCLUSION: 1. Prominent pulmonary emphysema. 2. Opacity of the lung apices likely represent scarring. 3. Left lower lobe atelectasis and small left pleural effusion. 4. Coronary artery calcification. Nathan Boyer MD Renal Ultrasound 02/09/17 0000 Signed Impressions: Service Date/Time: Thursday, February 09, 2017 08:36 - CONCLUSION: 1. Echogenic small right kidney characteristic of medical renal disease Josiah Membreno MD Abdomen/Pelvis CT 02/09/17 0000 Signed Impressions: Service Date/Time: Thursday, February 09, 2017 00:46 - CONCLUSION: No acute findings in the abdomen and pelvis. Nathan Boyer MD Chest X-Ray 02/08/173 Signed Impressions: Service Date/Time: February 22:37 - CONCLUSION: 1. Focal density of the lateral right lung base is immediately adjacent to cardiac lead and likely represents artifact. 2. Hyperaeration of the lungs indicating emphysema. Nathan Boyer MD Foot X-Ray 02/08/17 0000 Signed Impressions: Service Date/Time: February 23:46 - CONCLUSION: Evidence of cutaneous ulceration posteriorly at the heel. No radiographic evidence of osteomyelitis. Nathan Boyer MD Procedures None Other Results Laboratory Tests Test 02/08/17 22:59 02/09/17 00:10 02/09/17 01:23 02/09/17 02:20 Lipase 183 U/L Ethyl Alcohol Level LESS THAN 3 MG/DL Blood Smear Pathologist Review Urine Color LIGHT-YELLOW Urine Turbidity CLEAR Urine pH 5.5 Urine Specific [place] 1.010 Urine Protein NEG mg/dL Urine Glucose (UA) 150 mg/dL Urine Ketones NEG mg/dL Urine Occult Blood TRACE Urine Nitrite NEG Urine Bilirubin NEG Urine Urobilinogen LESS THAN 2.0 MG/DL Urine Leukocyte Esterase NEG Urine RBC LESS THAN 1 /hpf Urine WBC LESS THAN 1 /hpf Urine Squamous Epithelial Cells <1 /hpf Urine Amorphous Sediment RARE Urine Mucus FEW /lpf Microscopic Urinalysis Comment CATH-CULT NOT IND Urine Eosinophils NONE SEEN /HPF Urine Random Creatinine 80.6 MG/DL Urine Random Sodium 41 MEQ/L Nasal Screen MRSA (PCR) MRSA NOT DETECTED Test 02/09/17 03:56 02/09/17 14:13 02/10/17 06:10 02/12/17 11:40 Vitamin B12 Level 1092 PG/ML Methylmalonic Acid 0.46 nmol/mL Folate 9.6 NG/ML Troponin I 0.49 NG/ML Prothrombin Time 12.2 SEC Prothromb Time International Ratio 1.2 RATIO Activated Partial Thromboplast Time 28.7 SEC Lactic Acid Level 0.7 mmol/L Iron Level 20 MCG/DL Total Iron Binding Capacity 210 MCG/DL Percent Iron Saturation 9.5 % Ferritin 129 NG/ML Total Bilirubin 0.4 MG/DL Direct Bilirubin 0.1 MG/DL Indirect Bilirubin 0.3 MG/DL Aspartate Amino Transf (AST/SGOT) 77 U/L Alanine Aminotransferase (ALT/SGPT) 31 U/L Alkaline Phosphatase 69 U/L Thyroxine (T4) 9.3 MCG/DL Thyroid Stimulating Hormone 3rd Gen 0.760 uIU/ML Test 02/12/17 19:29 02/13/17 05:00 02/14/17 04:37 02/15/17 11:35 Erythrocyte Sedimentation Rate 55 mm/hr Reticulocyte Count 2.8 % Absolute Reticulocyte Count 91.9 MIL/L Erythropoietin 25.4 mIU/mL C-Reactive Protein 11.70 MG/DL Total Protein 5.6 GM/DL Albumin/Globulin Ratio 1.28 Pkuha-0-Zosaprnxc 0.30 GM/DL Wydjq-8-Kyeiafyqu 0.78 GM/DL Beta Globulins 0.56 GM/DL Gamma Globulins 0.82 GM/DL Electrophoresis Pathologist Comment Rheumatoid Factor Screen NEGATIVE Rheumatoid Factor Titer IU/ML Anti-Nuclear Antibody Screen NEG Blood Urea Nitrogen 10 MG/DL Creatinine 1.40 MG/DL Random Glucose 93 MG/DL Albumin 2.3 GM/DL Calcium Level 7.7 MG/DL Phosphorus Level 1.2 MG/DL Magnesium Level 1.5 MG/DL Sodium Level 134 MEQ/L Potassium Level 3.6 MEQ/L Chloride Level 100 MEQ/L Carbon Dioxide Level 27.0 MEQ/L White Blood Count 7.6 TH/MM3 Red Blood Count 3.07 MIL/MM3 Hemoglobin 9.8 GM/DL Hematocrit 28.4 % Mean Corpuscular Volume 92.5 FL Mean Corpuscular Hemoglobin 31.8 PG Mean Corpuscular Hemoglobin Concent 34.4 % Red Cell Distribution Width 15.5 % Platelet Count 219 TH/MM3 Mean Platelet Volume 7.7 FL Neutrophils (%) (Auto) 75.6 % Lymphocytes (%) (Auto) 11.6 % Monocytes (%) (Auto) 8.7 % Eosinophils (%) (Auto) 3.3 % Basophils (%) (Auto) 0.8 % Neutrophils # (Auto) 5.7 TH/MM3 Lymphocytes # (Auto) 0.9 TH/MM3 Monocytes # (Auto) 0.7 TH/MM3 Eosinophils # (Auto) 0.3 TH/MM3 Basophils # (Auto) 0.1 TH/MM3 CBC Comment DIFF FINAL Differential Comment Test 02/17/17 14:28 02/18/17 10:00 Magnesium Level 2.0 MG/DL Blood Urea Nitrogen 14 MG/DL Creatinine 1.09 MG/DL Random Glucose 101 MG/DL Calcium Level 8.1 MG/DL Sodium Level 140 MEQ/L Potassium Level 4.3 MEQ/L Chloride Level 108 MEQ/L Carbon Dioxide Level 26.7 MEQ/L Anion Gap 5 MEQ/L Estimat Glomerular Filtration Rate 70 ML/MIN Total Creatine Kinase 363 U/L Creatine Kinase MB 4.4 NG/ML Creatine Kinase MB % 1.2 % Objective Remarks GENERAL: Alert, NAD. SKIN: Warm and dry. HEAD: Normocephalic. EYES: No scleral icterus. No injection or drainage. NECK: Supple, trachea midline. No JVD or lymphadenopathy. CARDIOVASCULAR: Regular rate and rhythm without murmurs, gallops, or rubs. RESPIRATORY: Breath sounds equal bilaterally. No accessory muscle use. GASTROINTESTINAL: Abdomen soft, non-tender, nondistended. MUSCULOSKELETAL: No cyanosis, or edema. BACK: Nontender without obvious deformity. No CVA tenderness. Medications and IVs Current Medications Medications (Trade) Dose Ordered Sig/Mohit Route Start Time Stop Time Status Last Admin (Ferrous Sulfate) 325 mg BID@12,17 PO 02/09/17 12:00 02/18/17 16:17 (NS Flush) 2 ml UNSCH PRN IV FLUSH 02/09/17 01:45 (NS Flush) 2 ml BID IV FLUSH 02/09/17 09:00 02/18/17 08:15 (Tylenol) 650 mg Q6H PRN PO 02/09/17 01:45 02/09/17 21:01 ([place] 5-325 Mg) 1 tab Q4H PRN PO 02/09/17 01:45 02/17/17 07:32 (Morphine Inj) 2 mg Q2H PRN IV PUSH 02/09/17 01:45 02/18/17 05:59 (Zofran Inj) 4 mg Q6H PRN IV PUSH 02/09/17 01:45 (Albuterol Neb) 2.5 mg Q2HR NEB PRN INH 02/09/17 01:45 Miscellaneous Information 1 Q361D XX 02/09/17 01:45 02/09/17 01:45 (Chlorhexidine 2% Cloth) Taper DAILY@04 TOP 02/09/17 04:00 02/05/18 03:59 02/09/17 03:58 (Chlorhexidine 2% Cloth) 3 pack UNSCH PRN TOP 02/09/17 01:45 (D50w (Vial) Inj) 50 ml UNSCH PRN IV PUSH 02/09/17 02:15 02/09/17 13:17 (Glucagon Inj) 1 mg UNSCH PRN OTHER 02/09/17 02:15 (NovoLIN R SUPPLEMENTAL SCALE) 1 ACHS SLIDING SCALE SQ 02/09/17 08:00 02/14/17 17:39 (Apresoline Inj) 10 mg Q1HR PRN IV PUSH 02/09/17 20:45 02/17/17 20:53 (Nitroglycerin 2% Oint) 1 inch Q6HR PRN TOPICAL 02/09/17 20:45 02/17/17 20:54 (Percocet 10-325 Mg) 1 tab Q4H PRN PO 02/10/17 02:00 02/18/17 15:02 (Protonix) 40 mg DAILY PO 02/11/17 12:15 02/18/17 08:15 (Santyl Oint) 1 applic DAILY EXTERNAL 02/14/17 09:00 02/18/17 08:15 (Norvasc) 5 mg DAILY PO 02/16/17 09:00 02/18/17 08:15 (Flagyl) 500 mg Q8HR PO 02/15/17 14:00 02/19/17 13:59 02/18/17 15:02 (KlonoPIN) 0.5 mg Q8HR PRN PO 02/15/17 17:30 02/16/17 20:55 (Keflex) 500 mg Q8HR PO 02/15/17 22:00 02/22/17 21:59 02/18/17 14:00 (Lopressor) 25 mg Q12HR PO 02/15/17 21:00 02/18/17 08:15 (Mag-Ox) 400 mg Q12HR PO 02/17/17 11:00 02/18/17 08:15 A/P Assessment and Plan 1. Acute kidney injury improved 2. Diarrhea - C. Diff PCR not done. Currently on Flagyl. Switched to PO Flagyl improved 3. Anemia secondary to kidney disease, school library media specialist cleared for discharge, Colonoscopy will be performed as outpatient GI specialist cancelled Colonoscopy due to Poor prep, received two units of PRBCs, hemoglobin 9.8 4. Atrial fibrillation to continue Metoprolol 25 mg BID, [id number] score 1 hypertension, on hold aspirin. due to concern with GI bleed. 5. Left heel eschar - appreciate podiatry input. Outpatient follow up in one week. - Will switch abx to Keflex PO. as per Vascular grants specialist recommended AKA but patient refused any procedure. was warned the patient about poor prognosis if the procedure is not performed due to Sepsis. 6. Tobacco dependence strongly recommended to stop smoking Full code. SCDs. Discharge Planning [facility] will not accept this patient. He needs LTC placement. CM is working on LTC placement. Austin Adhikari MD Feb 18, 2017 17:02
[2017-02-18] MEDS: hydrALAZINE HCL 20 MG/ML VIAL IV PUSH PRN (20:04)
[2017-02-19] VITALS (22 sets, daily range): BP systolic 107–172; BP diastolic 53–84; PULSE 68–106; RESP 18–19; TEMP 98–98.7; O2SAT 98–99
[2017-02-19] MEDS: MORPHINE SULFATE 2 MG/ML INJ IV PUSH PRN ×3 (03:48→21:37)
[2017-02-19] MEDS: oxyCODONE/ACETAMINOPHEN 10 MG/325 MG TAB PO PRN ×3 (03:48→19:34)
[2017-02-19] MEDS: CHLORHEXIDINE GLUCONATE 2 % 1 PACK (2 CLOTHS) TOP SCH (04:47)
[2017-02-19] MEDS: metroNIDAZOLE 500 MG TAB PO SCH (05:32)
[2017-02-19] MEDS: CEPHALEXIN MONOHYDRATE 500 MG CAP PO SCH ×3 (05:33→23:38)
[2017-02-19] MEDS: INSULIN NovoLIN REGULAR SUPPLEMENTAL SCALE SQ SCH ×4 (08:00→21:00)
[2017-02-19] MEDS: MAGNESIUM OXIDE 400 MG TAB PO SCH ×2 (08:23→20:42)
[2017-02-19] MEDS: amLODIPine BESYLATE 5 MG TAB PO SCH (08:23)
[2017-02-19] MEDS: ACETAMINOPHEN/HYDROcodone 325 MG/5 MG TAB PO PRN (08:24)
[2017-02-19] MEDS: PANTOPRAZOLE SOD 40 MG DELAYED RELEASE TAB PO SCH (09:00)
[2017-02-19] MEDS: METOPROLOL TARTRATE 25 MG TAB PO SCH ×2 (09:00→20:42)
[2017-02-19] MEDS: COLLAGENASE OINT 30 GM TUBE EXTERNAL SCH (09:00)
[2017-02-19] MEDS: SODIUM CHLORIDE 0.9% FLUSH 10 ML FLUSH IV FLUSH SCH ×2 (09:00→20:42)
--- NOTE | 2017-02-19 14:20 | PQ ---
Physician Query Response Document PATIENT: MELANIA ABAD : 1960 ADMIT DATE: 02/09/2017 1:18 AM DISCH DATE: RESPONDING PROVIDER #: paige QUERY TEXT: Conflicting Documentation Clarification Severe Sepsis with source unspecified and Possible Sepsis for the same clinical presentation appears in the record. Please clarify the diagnosis. --SIRS --Sepsis --Severe Sepsis --Sepsis with Septic Shock --Other, please specify Please also document if the condition is: -- Confirmed and current -- Confirmed, treated and resolved -- Ruled out -- Other, please specify Please call [facility] @ [phone] for assistance The patient's Clinical Indicators include: Per H Diagnosis: Principal Sepsis Criteria SIRS Criteria (2 or more): RR > 20 or PaCO2 < 32 Sepsis Criteria (SIRS+source): Infect source susp/known Severe Sepsis (+one): Lactate >2 Criteria Outcome: Meets severe sepsis criteria Per Progress Note 02/11-- admitted two days ago to the ICU for a number of problems including ... possi ble sepsis--- A/P Problem List: (9) Severe sepsis Left Heel Cellulitis, possible Sepsis Afebrile, no major signs of sepsis, but still a WBC elevation Per Progress note 02/15 A/P Problem List: (9) Severe sepsis ICD Code: A41.9 - Sepsis, unspecified organism; R65.20 - Severe sepsis without septic shock Query created by: Becky Taylor on 02/16/2017 9:22 AM RESPONSE TEXT: Severe sepsis (Heart rate >90, Respiratory rate > 20, suspected infection left heel cellulitis, lacti c acid 2.1). Electronically signed by: Karthik Marley DO 02/19/2017 2:16 PM
[2017-02-19] MEDS: FERROUS SULFATE 325 MG (65 MG ELEMENTAL IRON) TAB PO SCH ×2 (14:39→16:55)
[2017-02-19] MEDS: hydrALAZINE HCL 20 MG/ML VIAL IV PUSH PRN (14:40)
--- NOTE | 2017-02-19 15:04 | HHI.PR ---
Subjective Remarks This is a pleasant 56 y/o male who was admitted due to Diarrhea, Anemia, acute Kidney Injury, Hematology cleared for discharge GI specialist cancelled Colonoscopy due to poor prep, status post two units of PRBCs, his Kidney injury improved with IV fluids continue Flagyl by mouth for Diarrhea, awaiting for senior living care facility acceptance. 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 02/19: Seen in his bedroom, awaiting for placement not yet found placement, discussed with Nurse Miss Elliott and with Miniature Model Maker Objective Vital Signs Date Time Temp Pulse Resp B/P (MAP) Pulse Ox O2 Delivery O2 Flow Rate FiO2 02/19/17 14:45 98.4 77 19 172/84 (113) 98 02/19/17 11:00 98.3 68 18 138/75 (96) 98 02/19/17 11:00 Room Air 02/19/17 08:00 100 02/19/17 07:00 98.3 106 18 170/75 (106) 98 02/19/17 07:00 106 02/19/17 07:00 Room Air 02/19/17 06:00 92 02/19/17 05:00 93 02/19/17 04:00 Room Air 02/19/17 04:00 95 02/19/17 04:00 98.0 95 18 152/76 (101) 99 02/19/17 03:00 90 02/19/17 02:00 92 02/19/17 01:00 80 02/19/17 00:00 73 02/18/17 23:49 98.3 73 18 137/56 (83) 97 02/18/17 23:49 Room Air 02/18/17 23:00 78 02/18/17 22:00 80 02/18/17 21:00 81 02/18/17 20:00 78 02/18/17 20:00 98.1 78 18 113/55 (74) 97 02/18/17 20:00 Room Air 02/18/17 18:01 87 02/18/17 17:25 88 02/18/17 16:33 81 02/18/17 16:09 16 02/18/17 15:20 100 Room Air 02/18/17 15:20 98.0 62 16 155/82 (106) 100 02/18/17 15:20 81 I/O 02/18/17 02/18/17 02/18/17 02/19/17 02/19/17 02/19/17 07:00 15:00 23:00 07:00 15:00 23:00 Intake Total 480 ml 720 ml 720 ml Output Total 752 ml 450 ml 800 ml Balance -272 ml 270 ml -80 ml Intake Oral 480 ml 720 ml 720 ml Output Urine Total 752 ml 450 ml 800 ml # Bowel Movements 0 0 0 Result Diagram: 02/15/17 1135 02/18/17 1000 Imaging Last Impressions Chest CT 02/17/17 0000 Signed Impressions: Service Date/Time: Friday, February 17, 2017 11:39 - CONCLUSION: 1. Prominent pulmonary emphysema. 2. Opacity of the lung apices likely represent scarring. 3. Left lower lobe atelectasis and small left pleural effusion. 4. Coronary artery calcification. Nathan Boyer MD Renal Ultrasound 02/09/17 0000 Signed Impressions: Service Date/Time: Thursday, February 09, 2017 08:36 - CONCLUSION: 1. Echogenic small right kidney characteristic of medical renal disease Josiah Membreno MD Abdomen/Pelvis CT 02/09/17 0000 Signed Impressions: Service Date/Time: Thursday, February 09, 2017 00:46 - CONCLUSION: No acute findings in the abdomen and pelvis. Nathan Boyer MD Chest X-Ray 02/08/173 Signed Impressions: Service Date/Time: February 22:37 - CONCLUSION: 1. Focal density of the lateral right lung base is immediately adjacent to cardiac lead and likely represents artifact. 2. Hyperaeration of the lungs indicating emphysema. Nathan Boyer MD Foot X-Ray 02/08/17 0000 Signed Impressions: Service Date/Time: February 23:46 - CONCLUSION: Evidence of cutaneous ulceration posteriorly at the heel. No radiographic evidence of osteomyelitis. Nathan Boyer MD Procedures None Other Results Laboratory Tests Test 02/08/17 22:59 02/09/17 00:10 02/09/17 01:23 02/09/17 02:20 Lipase 183 U/L Ethyl Alcohol Level LESS THAN 3 MG/DL Blood Smear Pathologist Review Urine Color LIGHT-YELLOW Urine Turbidity CLEAR Urine pH 5.5 Urine Specific [place] 1.010 Urine Protein NEG mg/dL Urine Glucose (UA) 150 mg/dL Urine Ketones NEG mg/dL Urine Occult Blood TRACE Urine Nitrite NEG Urine Bilirubin NEG Urine Urobilinogen LESS THAN 2.0 MG/DL Urine Leukocyte Esterase NEG Urine RBC LESS THAN 1 /hpf Urine WBC LESS THAN 1 /hpf Urine Squamous Epithelial Cells <1 /hpf Urine Amorphous Sediment RARE Urine Mucus FEW /lpf Microscopic Urinalysis Comment CATH-CULT NOT IND Urine Eosinophils NONE SEEN /HPF Urine Random Creatinine 80.6 MG/DL Urine Random Sodium 41 MEQ/L Nasal Screen MRSA (PCR) MRSA NOT DETECTED Test 02/09/17 03:56 02/09/17 14:13 02/10/17 06:10 02/12/17 11:40 Vitamin B12 Level 1092 PG/ML Methylmalonic Acid 0.46 nmol/mL Folate 9.6 NG/ML Troponin I 0.49 NG/ML Prothrombin Time 12.2 SEC Prothromb Time International Ratio 1.2 RATIO Activated Partial Thromboplast Time 28.7 SEC Lactic Acid Level 0.7 mmol/L Iron Level 20 MCG/DL Total Iron Binding Capacity 210 MCG/DL Percent Iron Saturation 9.5 % Ferritin 129 NG/ML Total Bilirubin 0.4 MG/DL Direct Bilirubin 0.1 MG/DL Indirect Bilirubin 0.3 MG/DL Aspartate Amino Transf (AST/SGOT) 77 U/L Alanine Aminotransferase (ALT/SGPT) 31 U/L Alkaline Phosphatase 69 U/L Thyroxine (T4) 9.3 MCG/DL Thyroid Stimulating Hormone 3rd Gen 0.760 uIU/ML Test 02/12/17 19:29 02/13/17 05:00 02/14/17 04:37 02/15/17 11:35 Erythrocyte Sedimentation Rate 55 mm/hr Reticulocyte Count 2.8 % Absolute Reticulocyte Count 91.9 MIL/L Erythropoietin 25.4 mIU/mL C-Reactive Protein 11.70 MG/DL Total Protein 5.6 GM/DL Albumin/Globulin Ratio 1.28 Chybx-3-Syprmtxzt 0.30 GM/DL Jsccp-4-Fwsejbdmx 0.78 GM/DL Beta Globulins 0.56 GM/DL Gamma Globulins 0.82 GM/DL Electrophoresis Pathologist Comment Rheumatoid Factor Screen NEGATIVE Rheumatoid Factor Titer IU/ML Anti-Nuclear Antibody Screen NEG Blood Urea Nitrogen 10 MG/DL Creatinine 1.40 MG/DL Random Glucose 93 MG/DL Albumin 2.3 GM/DL Calcium Level 7.7 MG/DL Phosphorus Level 1.2 MG/DL Magnesium Level 1.5 MG/DL Sodium Level 134 MEQ/L Potassium Level 3.6 MEQ/L Chloride Level 100 MEQ/L Carbon Dioxide Level 27.0 MEQ/L White Blood Count 7.6 TH/MM3 Red Blood Count 3.07 MIL/MM3 Hemoglobin 9.8 GM/DL Hematocrit 28.4 % Mean Corpuscular Volume 92.5 FL Mean Corpuscular Hemoglobin 31.8 PG Mean Corpuscular Hemoglobin Concent 34.4 % Red Cell Distribution Width 15.5 % Platelet Count 219 TH/MM3 Mean Platelet Volume 7.7 FL Neutrophils (%) (Auto) 75.6 % Lymphocytes (%) (Auto) 11.6 % Monocytes (%) (Auto) 8.7 % Eosinophils (%) (Auto) 3.3 % Basophils (%) (Auto) 0.8 % Neutrophils # (Auto) 5.7 TH/MM3 Lymphocytes # (Auto) 0.9 TH/MM3 Monocytes # (Auto) 0.7 TH/MM3 Eosinophils # (Auto) 0.3 TH/MM3 Basophils # (Auto) 0.1 TH/MM3 CBC Comment DIFF FINAL Differential Comment Test 02/17/17 14:28 02/18/17 10:00 Magnesium Level 2.0 MG/DL Blood Urea Nitrogen 14 MG/DL Creatinine 1.09 MG/DL Random Glucose 101 MG/DL Calcium Level 8.1 MG/DL Sodium Level 140 MEQ/L Potassium Level 4.3 MEQ/L Chloride Level 108 MEQ/L Carbon Dioxide Level 26.7 MEQ/L Anion Gap 5 MEQ/L Estimat Glomerular Filtration Rate 70 ML/MIN Total Creatine Kinase 363 U/L Creatine Kinase MB 4.4 NG/ML Creatine Kinase MB % 1.2 % Objective Remarks GENERAL: Alert, NAD. SKIN: Warm and dry. HEAD: Normocephalic. EYES: No scleral icterus. No injection or drainage. NECK: Supple, trachea midline. No JVD or lymphadenopathy. CARDIOVASCULAR: Regular rate and rhythm without murmurs, gallops, or rubs. RESPIRATORY: Breath sounds equal bilaterally. No accessory muscle use. GASTROINTESTINAL: Abdomen soft, non-tender, nondistended. MUSCULOSKELETAL: No cyanosis, or edema. bilateral leg contracture. dressed left foot BACK: Nontender without obvious deformity. No CVA tenderness. Medications and IVs Current Medications Medications (Trade) Dose Ordered Sig/Mohit Route Start Time Stop Time Status Last Admin (Ferrous Sulfate) 325 mg BID@12,17 PO 02/09/17 12:00 02/19/17 14:39 (NS Flush) 2 ml UNSCH PRN IV FLUSH 02/09/17 01:45 (NS Flush) 2 ml BID IV FLUSH 02/09/17 09:00 02/19/17 09:00 (Tylenol) 650 mg Q6H PRN PO 02/09/17 01:45 02/09/17 21:01 ([place] 5-325 Mg) 1 tab Q4H PRN PO 02/09/17 01:45 02/19/17 08:24 (Morphine Inj) 2 mg Q2H PRN IV PUSH 02/09/17 01:45 02/19/17 03:48 (Zofran Inj) 4 mg Q6H PRN IV PUSH 02/09/17 01:45 (Albuterol Neb) 2.5 mg Q2HR NEB PRN INH 02/09/17 01:45 Miscellaneous Information 1 Q361D XX 02/09/17 01:45 02/09/17 01:45 (Chlorhexidine 2% Cloth) Taper DAILY@04 TOP 02/09/17 04:00 02/05/18 03:59 02/09/17 03:58 (Chlorhexidine 2% Cloth) 3 pack UNSCH PRN TOP 02/09/17 01:45 (D50w (Vial) Inj) 50 ml UNSCH PRN IV PUSH 02/09/17 02:15 02/09/17 13:17 (Glucagon Inj) 1 mg UNSCH PRN OTHER 02/09/17 02:15 (NovoLIN R SUPPLEMENTAL SCALE) 1 ACHS SLIDING SCALE SQ 02/09/17 08:00 02/19/17 12:00 (Apresoline Inj) 10 mg Q1HR PRN IV PUSH 02/09/17 20:45 02/19/17 14:40 (Nitroglycerin 2% Oint) 1 inch Q6HR PRN TOPICAL 02/09/17 20:45 02/17/17 20:54 (Percocet 10-325 Mg) 1 tab Q4H PRN PO 02/10/17 02:00 02/19/17 14:40 (Protonix) 40 mg DAILY PO 02/11/17 12:15 02/19/17 09:00 (Santyl Oint) 1 applic DAILY EXTERNAL 02/14/17 09:00 02/19/17 09:00 (Norvasc) 5 mg DAILY PO 02/16/17 09:00 02/19/17 08:23 (KlonoPIN) 0.5 mg Q8HR PRN PO 02/15/17 17:30 02/16/17 20:55 (Keflex) 500 mg Q8HR PO 02/15/17 22:00 02/22/17 21:59 02/19/17 14:00 (Lopressor) 25 mg Q12HR PO 02/15/17 21:00 02/19/17 09:00 (Mag-Ox) 400 mg Q12HR PO 02/17/17 11:00 02/19/17 08:23 A/P Assessment and Plan 1. Acute kidney injury improved 2. Diarrhea - C. Diff PCR not done. Currently on Flagyl. Switched to PO Flagyl improved 3. Anemia secondary to kidney disease, color specialist cleared for discharge, Colonoscopy will be performed as outpatient GI specialist cancelled Colonoscopy due to Poor prep, received two units of PRBCs, hemoglobin 9.8 4. Atrial fibrillation to continue Metoprolol 25 mg BID, [id number] score 1 hypertension, on hold aspirin. due to concern with GI bleed. 5. Left heel eschar - appreciate podiatry input. Outpatient follow up in one week. - Will switch abx to Keflex PO. as per Vascular corporate specialist recommended AKA but patient refused any procedure. was warned the patient about poor prognosis if the procedure is not performed due to Sepsis. 6. Tobacco dependence strongly recommended to stop smoking Full code. SCDs. Discharge Planning [facility] will not accept this patient. He needs LTC placement. CM is working on LTC placement. Austin Adhikari MD Feb 19, 2017 15:04
[2017-02-19] MEDS ORDERED: amLODIPine BESYLATE 5 MG TAB PO ONE (15:15)
[2017-02-20] VITALS (21 sets, daily range): BP systolic 136–172; BP diastolic 66–78; PULSE 64–84; RESP 18–20; TEMP 98.2–99; O2SAT 97–99
[2017-02-20] MEDS: ACETAMINOPHEN/HYDROcodone 325 MG/5 MG TAB PO PRN (02:39)
[2017-02-20] MEDS: CEPHALEXIN MONOHYDRATE 500 MG CAP PO SCH ×3 (05:20→23:12)
[2017-02-20] MEDS: INSULIN NovoLIN REGULAR SUPPLEMENTAL SCALE SQ SCH ×4 (08:00→21:00)
[2017-02-20] MEDS: SODIUM CHLORIDE 0.9% FLUSH 10 ML FLUSH IV FLUSH SCH ×2 (08:28→21:12)
[2017-02-20] MEDS: amLODIPine BESYLATE 5 MG TAB PO SCH (08:29)
[2017-02-20] MEDS: PANTOPRAZOLE SOD 40 MG DELAYED RELEASE TAB PO SCH (08:29)
[2017-02-20] MEDS: MAGNESIUM OXIDE 400 MG TAB PO SCH ×2 (08:29→21:12)
[2017-02-20] MEDS: METOPROLOL TARTRATE 25 MG TAB PO SCH ×2 (08:29→21:12)
[2017-02-20] MEDS: oxyCODONE/ACETAMINOPHEN 10 MG/325 MG TAB PO PRN ×4 (08:29→21:12)
[2017-02-20] MEDS: COLLAGENASE OINT 30 GM TUBE EXTERNAL SCH (08:31)
[2017-02-20] MEDS: FERROUS SULFATE 325 MG (65 MG ELEMENTAL IRON) TAB PO SCH ×2 (12:31→16:33)
--- NOTE | 2017-02-20 12:35 | HHI.PR ---
Subjective Remarks This is a pleasant 56 y/o male who was admitted due to Diarrhea, Anemia, acute Kidney Injury, Hematology cleared for discharge GI specialist cancelled Colonoscopy due to poor prep, status post two units of PRBCs, his Kidney injury improved with IV fluids continue Flagyl by mouth for Diarrhea, awaiting for prison care facility acceptance. 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 02/20: patient was awaiting for placement discussed with nurse and with District Traffic Chief ready for discharge. No nausea, vomit or diarrhea. Objective Vital Signs Date Time Temp Pulse Resp B/P (MAP) Pulse Ox O2 Delivery O2 Flow Rate FiO2 02/20/17 12:00 73 02/20/17 11:00 98.2 74 20 152/68 (96) 99 02/20/17 11:00 69 02/20/17 11:00 99 Room Air 02/20/17 10:00 74 02/20/17 09:00 72 02/20/17 08:00 82 02/20/17 07:00 79 02/20/17 07:00 99.0 81 19 152/71 (98) 97 02/20/17 07:00 97 Room Air 02/20/17 06:00 79 02/20/17 05:00 80 02/20/17 04:00 82 02/20/17 03:03 99 Room Air 02/20/17 03:00 80 02/20/17 02:00 84 02/20/17 01:00 84 02/20/17 00:00 98.4 69 18 136/68 (90) 99 02/20/17 00:00 98 Room Air 02/20/17 00:00 69 02/19/17 23:00 87 02/19/17 22:00 84 02/19/17 21:00 82 02/19/17 20:00 82 02/19/17 20:00 99 Room Air 02/19/17 19:30 98.7 90 18 160/82 (108) 99 02/19/17 19:00 90 02/19/17 18:00 82 02/19/17 17:00 81 02/19/17 16:00 81 02/19/17 15:41 19 02/19/17 15:40 107/53 (71) 02/19/17 15:00 98.0 83 19 135/75 (95) 98 02/19/17 15:00 98 Room Air 02/19/17 15:00 85 02/19/17 14:45 98.4 77 19 172/84 (113) 98 I/O 02/19/17 02/19/17 02/19/17 02/20/17 02/20/17 02/20/17 07:00 15:00 23:00 07:00 15:00 23:00 Intake Total 720 ml 660 ml 620 ml Output Total 800 ml 825 ml 875 ml Balance -80 ml -165 ml -255 ml Intake Oral 720 ml 660 ml 620 ml Output Urine Total 800 ml 825 ml 875 ml # Voids 4 # Bowel Movements 0 1 Result Diagram: 02/18/17 1000 Imaging Last Impressions Chest CT 02/17/17 0000 Signed Impressions: Service Date/Time: Friday, February 17, 2017 11:39 - CONCLUSION: 1. Prominent pulmonary emphysema. 2. Opacity of the lung apices likely represent scarring. 3. Left lower lobe atelectasis and small left pleural effusion. 4. Coronary artery calcification. Nathan Boyer MD Renal Ultrasound 02/09/17 0000 Signed Impressions: Service Date/Time: Thursday, February 09, 2017 08:36 - CONCLUSION: 1. Echogenic small right kidney characteristic of medical renal disease Josiah Membreno MD Abdomen/Pelvis CT 02/09/17 0000 Signed Impressions: Service Date/Time: Thursday, February 09, 2017 00:46 - CONCLUSION: No acute findings in the abdomen and pelvis. Nathan Boyer MD Chest X-Ray 02/08/173 Signed Impressions: Service Date/Time: February 22:37 - CONCLUSION: 1. Focal density of the lateral right lung base is immediately adjacent to cardiac lead and likely represents artifact. 2. Hyperaeration of the lungs indicating emphysema. Nathan Boyer MD Foot X-Ray 02/08/17 0000 Signed Impressions: Service Date/Time: February 23:46 - CONCLUSION: Evidence of cutaneous ulceration posteriorly at the heel. No radiographic evidence of osteomyelitis. Nathan Boyer MD Procedures None Other Results Laboratory Tests Test 02/08/17 22:59 02/09/17 00:10 02/09/17 01:23 02/09/17 02:20 Lipase 183 U/L Ethyl Alcohol Level LESS THAN 3 MG/DL Blood Smear Pathologist Review Urine Color LIGHT-YELLOW Urine Turbidity CLEAR Urine pH 5.5 Urine Specific [place] 1.010 Urine Protein NEG mg/dL Urine Glucose (UA) 150 mg/dL Urine Ketones NEG mg/dL Urine Occult Blood TRACE Urine Nitrite NEG Urine Bilirubin NEG Urine Urobilinogen LESS THAN 2.0 MG/DL Urine Leukocyte Esterase NEG Urine RBC LESS THAN 1 /hpf Urine WBC LESS THAN 1 /hpf Urine Squamous Epithelial Cells <1 /hpf Urine Amorphous Sediment RARE Urine Mucus FEW /lpf Microscopic Urinalysis Comment CATH-CULT NOT IND Urine Eosinophils NONE SEEN /HPF Urine Random Creatinine 80.6 MG/DL Urine Random Sodium 41 MEQ/L Nasal Screen MRSA (PCR) MRSA NOT DETECTED Test 02/09/17 03:56 02/09/17 14:13 02/10/17 06:10 02/12/17 11:40 Vitamin B12 Level 1092 PG/ML Methylmalonic Acid 0.46 nmol/mL Folate 9.6 NG/ML Troponin I 0.49 NG/ML Prothrombin Time 12.2 SEC Prothromb Time International Ratio 1.2 RATIO Activated Partial Thromboplast Time 28.7 SEC Lactic Acid Level 0.7 mmol/L Iron Level 20 MCG/DL Total Iron Binding Capacity 210 MCG/DL Percent Iron Saturation 9.5 % Ferritin 129 NG/ML Total Bilirubin 0.4 MG/DL Direct Bilirubin 0.1 MG/DL Indirect Bilirubin 0.3 MG/DL Aspartate Amino Transf (AST/SGOT) 77 U/L Alanine Aminotransferase (ALT/SGPT) 31 U/L Alkaline Phosphatase 69 U/L Thyroxine (T4) 9.3 MCG/DL Thyroid Stimulating Hormone 3rd Gen 0.760 uIU/ML Test 02/12/17 19:29 02/13/17 05:00 02/14/17 04:37 02/15/17 11:35 Erythrocyte Sedimentation Rate 55 mm/hr Reticulocyte Count 2.8 % Absolute Reticulocyte Count 91.9 MIL/L Erythropoietin 25.4 mIU/mL C-Reactive Protein 11.70 MG/DL Total Protein 5.6 GM/DL Albumin/Globulin Ratio 1.28 Qmlod-3-Ftnwsfbdh 0.30 GM/DL Ibwrc-7-Ywlguufmj 0.78 GM/DL Beta Globulins 0.56 GM/DL Gamma Globulins 0.82 GM/DL Electrophoresis Pathologist Comment Rheumatoid Factor Screen NEGATIVE Rheumatoid Factor Titer IU/ML Anti-Nuclear Antibody Screen NEG Blood Urea Nitrogen 10 MG/DL Creatinine 1.40 MG/DL Random Glucose 93 MG/DL Albumin 2.3 GM/DL Calcium Level 7.7 MG/DL Phosphorus Level 1.2 MG/DL Magnesium Level 1.5 MG/DL Sodium Level 134 MEQ/L Potassium Level 3.6 MEQ/L Chloride Level 100 MEQ/L Carbon Dioxide Level 27.0 MEQ/L White Blood Count 7.6 TH/MM3 Red Blood Count 3.07 MIL/MM3 Hemoglobin 9.8 GM/DL Hematocrit 28.4 % Mean Corpuscular Volume 92.5 FL Mean Corpuscular Hemoglobin 31.8 PG Mean Corpuscular Hemoglobin Concent 34.4 % Red Cell Distribution Width 15.5 % Platelet Count 219 TH/MM3 Mean Platelet Volume 7.7 FL Neutrophils (%) (Auto) 75.6 % Lymphocytes (%) (Auto) 11.6 % Monocytes (%) (Auto) 8.7 % Eosinophils (%) (Auto) 3.3 % Basophils (%) (Auto) 0.8 % Neutrophils # (Auto) 5.7 TH/MM3 Lymphocytes # (Auto) 0.9 TH/MM3 Monocytes # (Auto) 0.7 TH/MM3 Eosinophils # (Auto) 0.3 TH/MM3 Basophils # (Auto) 0.1 TH/MM3 CBC Comment DIFF FINAL Differential Comment Test 02/17/17 14:28 02/18/17 10:00 Magnesium Level 2.0 MG/DL Blood Urea Nitrogen 14 MG/DL Creatinine 1.09 MG/DL Random Glucose 101 MG/DL Calcium Level 8.1 MG/DL Sodium Level 140 MEQ/L Potassium Level 4.3 MEQ/L Chloride Level 108 MEQ/L Carbon Dioxide Level 26.7 MEQ/L Anion Gap 5 MEQ/L Estimat Glomerular Filtration Rate 70 ML/MIN Total Creatine Kinase 363 U/L Creatine Kinase MB 4.4 NG/ML Creatine Kinase MB % 1.2 % Objective Remarks GENERAL: Alert, NAD. SKIN: Warm and dry. HEAD: Normocephalic. EYES: No scleral icterus. No injection or drainage. NECK: Supple, trachea midline. No JVD or lymphadenopathy. CARDIOVASCULAR: Regular rate and rhythm without murmurs, gallops, or rubs. RESPIRATORY: Breath sounds equal bilaterally. No accessory muscle use. GASTROINTESTINAL: Abdomen soft, non-tender, nondistended. MUSCULOSKELETAL: No cyanosis, or edema. bilateral leg contracture. dressed left foot BACK: Nontender without obvious deformity. No CVA tenderness. Medications and IVs Current Medications Medications (Trade) Dose Ordered Sig/Mohit Route Start Time Stop Time Status Last Admin (Ferrous Sulfate) 325 mg BID@12,17 PO 02/09/17 12:00 02/20/17 12:31 (NS Flush) 2 ml UNSCH PRN IV FLUSH 02/09/17 01:45 (NS Flush) 2 ml BID IV FLUSH 02/09/17 09:00 02/20/17 08:28 (Tylenol) 650 mg Q6H PRN PO 02/09/17 01:45 02/09/17 21:01 ([place] 5-325 Mg) 1 tab Q4H PRN PO 02/09/17 01:45 02/20/17 02:39 (Morphine Inj) 2 mg Q2H PRN IV PUSH 02/09/17 01:45 02/19/17 21:37 (Zofran Inj) 4 mg Q6H PRN IV PUSH 02/09/17 01:45 (Albuterol Neb) 2.5 mg Q2HR NEB PRN INH 02/09/17 01:45 Miscellaneous Information 1 Q361D XX 02/09/17 01:45 02/09/17 01:45 (Chlorhexidine 2% Cloth) Taper DAILY@04 TOP 02/09/17 04:00 02/05/18 03:59 02/09/17 03:58 (Chlorhexidine 2% Cloth) 3 pack UNSCH PRN TOP 02/09/17 01:45 (D50w (Vial) Inj) 50 ml UNSCH PRN IV PUSH 02/09/17 02:15 02/09/17 13:17 (Glucagon Inj) 1 mg UNSCH PRN OTHER 02/09/17 02:15 (NovoLIN R SUPPLEMENTAL SCALE) 1 ACHS SLIDING SCALE SQ 02/09/17 08:00 02/20/17 12:32 (Apresoline Inj) 10 mg Q1HR PRN IV PUSH 02/09/17 20:45 02/19/17 14:40 (Nitroglycerin 2% Oint) 1 inch Q6HR PRN TOPICAL 02/09/17 20:45 02/17/17 20:54 (Percocet 10-325 Mg) 1 tab Q4H PRN PO 02/10/17 02:00 02/20/17 12:32 (Protonix) 40 mg DAILY PO 02/11/17 12:15 02/20/17 08:29 (Santyl Oint) 1 applic DAILY EXTERNAL 02/14/17 09:00 02/19/17 09:00 (KlonoPIN) 0.5 mg Q8HR PRN PO 02/15/17 17:30 02/16/17 20:55 (Keflex) 500 mg Q8HR PO 02/15/17 22:00 02/22/17 21:59 02/20/17 05:20 (Lopressor) 25 mg Q12HR PO 02/15/17 21:00 02/20/17 08:29 (Mag-Ox) 400 mg Q12HR PO 02/17/17 11:00 02/20/17 08:29 (Norvasc) 10 mg DAILY PO 02/20/17 09:00 02/20/17 08:29 A/P Assessment and Plan 1. Acute kidney injury improved 2. Diarrhea - C. Diff PCR not done. Currently on Flagyl. Switched to PO Flagyl improved 3. Anemia secondary to kidney disease, employment law specialist cleared for discharge, Colonoscopy will be performed as outpatient GI specialist cancelled Colonoscopy due to Poor prep, received two units of PRBCs, hemoglobin 9.8 4. Atrial fibrillation to continue Metoprolol 25 mg BID, [id number] score 1 hypertension, on hold aspirin. due to concern with GI bleed. 5. Left heel eschar - appreciate podiatry input. Outpatient follow up in one week. - Will switch abx to Keflex PO. as per Vascular home health billing specialist recommended AKA but patient refused any procedure. was warned the patient about poor prognosis if the procedure is not performed due to Sepsis. 6. Tobacco dependence strongly recommended to stop smoking Full code. SCDs. Discharge Planning Accepted to SNF discharge today. Austin Adhikari MD Feb 20, 2017 12:35
[2017-02-20] MEDS: MORPHINE SULFATE 2 MG/ML INJ IV PUSH PRN ×2 (14:07→19:40)
--- NOTE | 2017-02-20 14:33 | HHI.DS ---
Discharge Summary Admission Date Feb 09, 2017 at 01:18 Discharge Date: Feb 20, 2017 Admitting Diagnosis acute renal failure, melena, GI bleed, anemia, hyperkalemia (1) Acute renal failure ICD Code: N17.9 - Acute kidney failure, unspecified Diagnosis: Principal Status: Acute (2) Cellulitis of left foot ICD Code: L03.116 - Cellulitis of left lower limb Diagnosis: Principal Status: Acute (3) Hyperkalemia ICD Code: E87.5 - Hyperkalemia Diagnosis: Principal Status: Acute (4) Ulcer of left foot ICD Code: L97.529 - Non-pressure chronic ulcer of other part of left foot with unspecified severity Diagnosis: Principal Status: Acute (5) Melena ICD Code: K92.1 - Melena Diagnosis: Principal Status: Acute (6) Chronic back pain ICD Code: M54.9 - Dorsalgia, unspecified; G89.29 - Other chronic pain Diagnosis: Principal Status: Acute (7) Tobacco abuse ICD Code: Z72.0 - Tobacco use Diagnosis: Secondary Status: Chronic (8) PVD (peripheral vascular disease) ICD Code: I73.9 - Peripheral vascular disease, unspecified Diagnosis: Principal Status: Acute (9) Severe sepsis ICD Code: A41.9 - Sepsis, unspecified organism; R65.20 - Severe sepsis without septic shock Diagnosis: Principal Procedures None Brief History - From Admission This is a 56 yo male. Date of admission 02/09/2017. 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 Patient is residence of [facility]. Patient presents to [facility] from [facility] with a several-day history of copious diarrhea. He since she's having partially 10 bowel movements daily for the past several days. He is actually been seen here at [facility] multiple times. Initially blood sugar 60s decreased to 27 admission. Receive 1 ampule D50 now on 300. BMP and CBC are performed which showed an anemia hemoglobin around 8 and a creatinine of 6.5. Baseline around 1.8. Discontinue liters normal saline wide open. Hemodynamically stable. CT abdomen/pelvis revealed no acute findings. Based on pantoprazole drip currently 8 mg an hour after she moles. We are asked to admit. CBC/BMP: 02/18/17 1000 Significant Findings Laboratory Tests Test 02/18/17 10:00 Calcium Level 8.1 MG/DL (8.5-10.1) Chloride Level 108 MEQ/L (98-107) Estimat Glomerular Filtration Rate 70 ML/MIN (>89) Total Creatine Kinase 363 U/L (39-308) Creatine Kinase MB 4.4 NG/ML (0.5-3.6) Imaging Last Impressions Chest CT 02/17/17 0000 Signed Impressions: Service Date/Time: Friday, February 17, 2017 11:39 - CONCLUSION: 1. Prominent pulmonary emphysema. 2. Opacity of the lung apices likely represent scarring. 3. Left lower lobe atelectasis and small left pleural effusion. 4. Coronary artery calcification. Nathan Boyer MD Renal Ultrasound 02/09/17 0000 Signed Impressions: Service Date/Time: Thursday, February 09, 2017 08:36 - CONCLUSION: 1. Echogenic small right kidney characteristic of medical renal disease Josiah Membreno MD Abdomen/Pelvis CT 02/09/17 0000 Signed Impressions: Service Date/Time: Thursday, February 09, 2017 00:46 - CONCLUSION: No acute findings in the abdomen and pelvis. Nathan Boyer MD Chest X-Ray 02/08/173 Signed Impressions: Service Date/Time: February 22:37 - CONCLUSION: 1. Focal density of the lateral right lung base is immediately adjacent to cardiac lead and likely represents artifact. 2. Hyperaeration of the lungs indicating emphysema. Nathan Boyer MD Foot X-Ray 02/08/17 0000 Signed Impressions: Service Date/Time: February 23:46 - CONCLUSION: Evidence of cutaneous ulceration posteriorly at the heel. No radiographic evidence of osteomyelitis. Nathan Boyer MD PE at Discharge GENERAL: Alert, NAD. SKIN: Warm and dry. HEAD: Normocephalic. EYES: No scleral icterus. No injection or drainage. NECK: Supple, trachea midline. No JVD or lymphadenopathy. CARDIOVASCULAR: Regular rate and rhythm without murmurs, gallops, or rubs. RESPIRATORY: Breath sounds equal bilaterally. No accessory muscle use. GASTROINTESTINAL: Abdomen soft, non-tender, nondistended. MUSCULOSKELETAL: No cyanosis, or edema. bilateral leg contracture. dressed left foot BACK: Nontender without obvious deformity. No CVA tenderness. Hospital Course This is a pleasant 56 y/o male who was admitted due to Diarrhea, Anemia, acute Kidney Injury, Hematology cleared for discharge GI specialist cancelled Colonoscopy due to poor prep, status post two units of PRBCs, his Kidney injury improved with IV fluids continue Flagyl by mouth for Diarrhea, awaiting for terminal supervisor care facility acceptance. 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 02/20: patient was awaiting for placement discussed with nurse and with Lens Maker ready for discharge. No nausea, vomit or diarrhea. Assessment and Plan 1. Acute kidney injury improved 2. Diarrhea - C. Diff PCR not done. Currently on Flagyl. Switched to PO Flagyl improved 3. Anemia secondary to kidney disease, mechanical engineering specialist cleared for discharge, Colonoscopy will be performed as outpatient GI specialist cancelled Colonoscopy due to Poor prep, received two units of PRBCs, hemoglobin 9.8 4. Atrial fibrillation to continue Metoprolol 25 mg BID, [id number] score 1 hypertension, on hold aspirin. due to concern with GI bleed. 5. Left heel eschar - appreciate podiatry input. Outpatient follow up in one week. - Will switch abx to Keflex PO. as per Vascular oil program compliance specialist recommended AKA but patient refused any procedure. was warned the patient about poor prognosis if the procedure is not performed due to Sepsis. 6. Tobacco dependence strongly recommended to stop smoking Full code. SCDs. Discharge Planning Accepted to SNF discharge today. Pt Condition on Discharge: Stable Discharge Disposition: ACLF/BRI Discharge Time: > 30 minutes Discharge Instructions DIET: Follow Instructions for: Heart Healthy Diet Activities you can perform: Regular-No Restrictions Austin Adhikari MD Feb 20, 2017 14:33
[2017-02-21] VITALS (21 sets, daily range): BP systolic 139–180; BP diastolic 57–87; PULSE 60–90; RESP 18; TEMP 97.8–98.4; O2SAT 98–100
[2017-02-21] MEDS: MORPHINE SULFATE 2 MG/ML INJ IV PUSH PRN (01:05)
[2017-02-21] MEDS: CHLORHEXIDINE GLUCONATE 2 % 1 PACK (2 CLOTHS) TOP SCH (04:00)
[2017-02-21] MEDS: oxyCODONE/ACETAMINOPHEN 10 MG/325 MG TAB PO PRN ×4 (04:53→22:24)
[2017-02-21] MEDS: CEPHALEXIN MONOHYDRATE 500 MG CAP PO SCH ×3 (04:54→22:00)
[2017-02-21] MEDS: INSULIN NovoLIN REGULAR SUPPLEMENTAL SCALE SQ SCH ×4 (08:00→21:00)
[2017-02-21] MEDS: PANTOPRAZOLE SOD 40 MG DELAYED RELEASE TAB PO SCH (08:35)
[2017-02-21] MEDS: MAGNESIUM OXIDE 400 MG TAB PO SCH ×2 (08:35→22:24)
[2017-02-21] MEDS: METOPROLOL TARTRATE 25 MG TAB PO SCH ×2 (08:36→22:24)
[2017-02-21] MEDS: SODIUM CHLORIDE 0.9% FLUSH 10 ML FLUSH IV FLUSH SCH ×2 (08:36→22:24)
[2017-02-21] MEDS: amLODIPine BESYLATE 5 MG TAB PO SCH (08:36)
[2017-02-21] MEDS: COLLAGENASE OINT 30 GM TUBE EXTERNAL SCH (08:37)
[2017-02-21] MEDS: FERROUS SULFATE 325 MG (65 MG ELEMENTAL IRON) TAB PO SCH ×2 (11:45→17:50)
--- NOTE | 2017-02-21 15:39 | HHI.PR ---
Subjective Remarks This is a pleasant 56 y/o male who was admitted due to Diarrhea, Anemia, acute Kidney Injury, Hematology cleared for discharge GI specialist cancelled Colonoscopy due to poor prep, status post two units of PRBCs, his Kidney injury improved with IV fluids continue Flagyl by mouth for Diarrhea, awaiting for senior living care facility acceptance. 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 02/21: Seen in his bedroom, eating at this time, no complaint, discussed in Multidisciplinary meeting still awaiting for placement no nausea, vomit or diarrhea. Objective Vital Signs Date Time Temp Pulse Resp B/P (MAP) Pulse Ox O2 Delivery O2 Flow Rate FiO2 02/21/17 15:00 98 Room Air 02/21/17 15:00 98.0 77 18 143/78 (99) 98 02/21/17 14:00 78 02/21/17 13:00 60 02/21/17 12:00 74 02/21/17 11:00 99 Room Air 02/21/17 11:00 77 02/21/17 11:00 97.8 74 18 164/79 (107) 99 02/21/17 10:00 65 02/21/17 09:00 64 02/21/17 08:00 64 02/21/17 07:00 98.1 65 18 139/70 (93) 98 02/21/17 07:00 98 Room Air 02/21/17 07:00 65 02/21/17 06:00 65 02/21/17 05:00 63 02/21/17 04:30 98.2 72 18 156/57 (90) 98 02/21/17 04:00 99 Room Air 02/21/17 04:00 70 02/21/17 03:00 72 02/21/17 02:00 72 02/21/17 01:00 66 02/21/17 00:00 65 02/21/17 00:00 98.2 70 18 164/79 (107) 98 02/20/17 23:34 99 Room Air 02/20/17 23:00 75 02/20/17 20:00 99 Room Air 02/20/17 19:44 98.4 73 18 164/78 (106) 99 02/20/17 18:03 65 02/20/17 17:38 17 02/20/17 17:06 66 02/20/17 16:03 65 I/O 02/20/17 02/20/17 02/20/17 02/21/17 02/21/17 02/21/17 07:00 15:00 23:00 07:00 15:00 23:00 Intake Total 620 ml 480 ml 420 ml Output Total 875 ml 700 ml 775 ml Balance -255 ml -220 ml -355 ml Intake Oral 620 ml 480 ml 420 ml Output Urine Total 875 ml 700 ml 775 ml # Voids 4 5 # Bowel Movements 0 Result Diagram: 02/18/17 1000 Imaging Last Impressions Chest CT 02/17/17 0000 Signed Impressions: Service Date/Time: Friday, February 17, 2017 11:39 - CONCLUSION: 1. Prominent pulmonary emphysema. 2. Opacity of the lung apices likely represent scarring. 3. Left lower lobe atelectasis and small left pleural effusion. 4. Coronary artery calcification. Nathan Boyer MD Renal Ultrasound 02/09/17 0000 Signed Impressions: Service Date/Time: Thursday, February 09, 2017 08:36 - CONCLUSION: 1. Echogenic small right kidney characteristic of medical renal disease Josiah Membreno MD Abdomen/Pelvis CT 02/09/17 0000 Signed Impressions: Service Date/Time: Thursday, February 09, 2017 00:46 - CONCLUSION: No acute findings in the abdomen and pelvis. Nathan Boyer MD Chest X-Ray 02/08/173 Signed Impressions: Service Date/Time: February 22:37 - CONCLUSION: 1. Focal density of the lateral right lung base is immediately adjacent to cardiac lead and likely represents artifact. 2. Hyperaeration of the lungs indicating emphysema. Nathan Boyer MD Foot X-Ray 02/08/17 0000 Signed Impressions: Service Date/Time: February 23:46 - CONCLUSION: Evidence of cutaneous ulceration posteriorly at the heel. No radiographic evidence of osteomyelitis. Nathan Boyer MD Procedures None Other Results Laboratory Tests Test 02/08/17 22:59 02/09/17 00:10 02/09/17 01:23 02/09/17 02:20 Lipase 183 U/L Ethyl Alcohol Level LESS THAN 3 MG/DL Blood Smear Pathologist Review Urine Color LIGHT-YELLOW Urine Turbidity CLEAR Urine pH 5.5 Urine Specific [place] 1.010 Urine Protein NEG mg/dL Urine Glucose (UA) 150 mg/dL Urine Ketones NEG mg/dL Urine Occult Blood TRACE Urine Nitrite NEG Urine Bilirubin NEG Urine Urobilinogen LESS THAN 2.0 MG/DL Urine Leukocyte Esterase NEG Urine RBC LESS THAN 1 /hpf Urine WBC LESS THAN 1 /hpf Urine Squamous Epithelial Cells <1 /hpf Urine Amorphous Sediment RARE Urine Mucus FEW /lpf Microscopic Urinalysis Comment CATH-CULT NOT IND Urine Eosinophils NONE SEEN /HPF Urine Random Creatinine 80.6 MG/DL Urine Random Sodium 41 MEQ/L Nasal Screen MRSA (PCR) MRSA NOT DETECTED Test 02/09/17 03:56 02/09/17 14:13 02/10/17 06:10 02/12/17 11:40 Vitamin B12 Level 1092 PG/ML Methylmalonic Acid 0.46 nmol/mL Folate 9.6 NG/ML Troponin I 0.49 NG/ML Prothrombin Time 12.2 SEC Prothromb Time International Ratio 1.2 RATIO Activated Partial Thromboplast Time 28.7 SEC Lactic Acid Level 0.7 mmol/L Iron Level 20 MCG/DL Total Iron Binding Capacity 210 MCG/DL Percent Iron Saturation 9.5 % Ferritin 129 NG/ML Total Bilirubin 0.4 MG/DL Direct Bilirubin 0.1 MG/DL Indirect Bilirubin 0.3 MG/DL Aspartate Amino Transf (AST/SGOT) 77 U/L Alanine Aminotransferase (ALT/SGPT) 31 U/L Alkaline Phosphatase 69 U/L Thyroxine (T4) 9.3 MCG/DL Thyroid Stimulating Hormone 3rd Gen 0.760 uIU/ML Test 02/12/17 19:29 02/13/17 05:00 02/14/17 04:37 02/15/17 11:35 Erythrocyte Sedimentation Rate 55 mm/hr Reticulocyte Count 2.8 % Absolute Reticulocyte Count 91.9 MIL/L Erythropoietin 25.4 mIU/mL C-Reactive Protein 11.70 MG/DL Total Protein 5.6 GM/DL Albumin/Globulin Ratio 1.28 Yuriz-1-Keymbcskd 0.30 GM/DL Vpiga-8-Azahxiehf 0.78 GM/DL Beta Globulins 0.56 GM/DL Gamma Globulins 0.82 GM/DL Electrophoresis Pathologist Comment Rheumatoid Factor Screen NEGATIVE Rheumatoid Factor Titer IU/ML Anti-Nuclear Antibody Screen NEG Blood Urea Nitrogen 10 MG/DL Creatinine 1.40 MG/DL Random Glucose 93 MG/DL Albumin 2.3 GM/DL Calcium Level 7.7 MG/DL Phosphorus Level 1.2 MG/DL Magnesium Level 1.5 MG/DL Sodium Level 134 MEQ/L Potassium Level 3.6 MEQ/L Chloride Level 100 MEQ/L Carbon Dioxide Level 27.0 MEQ/L White Blood Count 7.6 TH/MM3 Red Blood Count 3.07 MIL/MM3 Hemoglobin 9.8 GM/DL Hematocrit 28.4 % Mean Corpuscular Volume 92.5 FL Mean Corpuscular Hemoglobin 31.8 PG Mean Corpuscular Hemoglobin Concent 34.4 % Red Cell Distribution Width 15.5 % Platelet Count 219 TH/MM3 Mean Platelet Volume 7.7 FL Neutrophils (%) (Auto) 75.6 % Lymphocytes (%) (Auto) 11.6 % Monocytes (%) (Auto) 8.7 % Eosinophils (%) (Auto) 3.3 % Basophils (%) (Auto) 0.8 % Neutrophils # (Auto) 5.7 TH/MM3 Lymphocytes # (Auto) 0.9 TH/MM3 Monocytes # (Auto) 0.7 TH/MM3 Eosinophils # (Auto) 0.3 TH/MM3 Basophils # (Auto) 0.1 TH/MM3 CBC Comment DIFF FINAL Differential Comment Test 02/17/17 14:28 02/18/17 10:00 Magnesium Level 2.0 MG/DL Blood Urea Nitrogen 14 MG/DL Creatinine 1.09 MG/DL Random Glucose 101 MG/DL Calcium Level 8.1 MG/DL Sodium Level 140 MEQ/L Potassium Level 4.3 MEQ/L Chloride Level 108 MEQ/L Carbon Dioxide Level 26.7 MEQ/L Anion Gap 5 MEQ/L Estimat Glomerular Filtration Rate 70 ML/MIN Total Creatine Kinase 363 U/L Creatine Kinase MB 4.4 NG/ML Creatine Kinase MB % 1.2 % Objective Remarks GENERAL: Alert, NAD. SKIN: Warm and dry. HEAD: Normocephalic. EYES: No scleral icterus. No injection or drainage. NECK: Supple, trachea midline. No JVD or lymphadenopathy. CARDIOVASCULAR: Regular rate and rhythm without murmurs, gallops, or rubs. RESPIRATORY: Breath sounds equal bilaterally. No accessory muscle use. GASTROINTESTINAL: Abdomen soft, non-tender, nondistended. MUSCULOSKELETAL: No cyanosis, or edema. bilateral leg contracture. dressed left foot BACK: Nontender without obvious deformity. No CVA tenderness. Medications and IVs Current Medications Medications (Trade) Dose Ordered Sig/Mohit Route Start Time Stop Time Status Last Admin (Ferrous Sulfate) 325 mg BID@12,17 PO 02/09/17 12:00 02/21/17 11:45 (NS Flush) 2 ml UNSCH PRN IV FLUSH 02/09/17 01:45 (NS Flush) 2 ml BID IV FLUSH 02/09/17 09:00 02/21/17 08:36 (Tylenol) 650 mg Q6H PRN PO 02/09/17 01:45 02/09/17 21:01 ([place]andy 5-325 Mg) 1 tab Q4H PRN PO 02/09/17 01:45 02/20/17 02:39 (Morphine Inj) 2 mg Q2H PRN IV PUSH 02/09/17 01:45 02/21/17 01:05 (Zofran Inj) 4 mg Q6H PRN IV PUSH 02/09/17 01:45 (Albuterol Neb) 2.5 mg Q2HR NEB PRN INH 02/09/17 01:45 Miscellaneous Information 1 Q361D XX 02/09/17 01:45 02/09/17 01:45 (Chlorhexidine 2% Cloth) Taper DAILY@04 TOP 02/09/17 04:00 02/05/18 03:59 02/09/17 03:58 (Chlorhexidine 2% Cloth) 3 pack UNSCH PRN TOP 02/09/17 01:45 (D50w (Vial) Inj) 50 ml UNSCH PRN IV PUSH 02/09/17 02:15 02/09/17 13:17 (Glucagon Inj) 1 mg UNSCH PRN OTHER 02/09/17 02:15 (NovoLIN R SUPPLEMENTAL SCALE) 1 ACHS SLIDING SCALE SQ 02/09/17 08:00 02/21/17 11:47 (Apresoline Inj) 10 mg Q1HR PRN IV PUSH 02/09/17 20:45 02/19/17 14:40 (Nitroglycerin 2% Oint) 1 inch Q6HR PRN TOPICAL 02/09/17 20:45 02/17/17 20:54 (Percocet 10-325 Mg) 1 tab Q4H PRN PO 02/10/17 02:00 02/21/17 11:45 (Protonix) 40 mg DAILY PO 02/11/17 12:15 02/21/17 08:35 (Santyl Oint) 1 applic DAILY EXTERNAL 02/14/17 09:00 02/21/17 08:37 (KlonoPIN) 0.5 mg Q8HR PRN PO 02/15/17 17:30 02/16/17 20:55 (Keflex) 500 mg Q8HR PO 02/15/17 22:00 02/22/17 21:59 02/21/17 14:00 (Lopressor) 25 mg Q12HR PO 02/15/17 21:00 02/21/17 08:36 (Mag-Ox) 400 mg Q12HR PO 02/17/17 11:00 02/21/17 08:35 (Norvasc) 10 mg DAILY PO 02/20/17 09:00 02/21/17 08:36 A/P Assessment and Plan 1. Acute kidney injury improved 2. Diarrhea - C. Diff PCR not done. Currently on Flagyl. Switched to PO Flagyl improved 3. Anemia secondary to kidney disease, medical insurance coding specialist cleared for discharge, Colonoscopy will be performed as outpatient GI specialist cancelled Colonoscopy due to Poor prep, received two units of PRBCs, hemoglobin 9.8 4. Atrial fibrillation to continue Metoprolol 25 mg BID, [id number] score 1 hypertension, on hold aspirin. due to concern with GI bleed. 5. Left heel eschar - appreciate podiatry input. Outpatient follow up in one week. - Will switch abx to Keflex PO. as per Vascular account resolution specialist recommended AKA but patient refused any procedure. was warned the patient about poor prognosis if the procedure is not performed due to Sepsis. 6. Tobacco dependence strongly recommended to stop smoking Full code. SCDs. No changes to anterior assessment awaiting for placement. Discharge Planning awaiting for placement Austin Adhikari MD Feb 21, 2017 15:39
[2017-02-22] VITALS (11 sets, daily range): BP systolic 148–168; BP diastolic 75–97; PULSE 64–94; RESP 20; TEMP 97.4–98.6; O2SAT 95–96
[2017-02-22] MEDS: NITROGLYCERIN 2% OINT 1 GM PACKET TOPICAL PRN (00:31)
[2017-02-22] MEDS: ACETAMINOPHEN 325 MG TAB PO PRN (00:31)
[2017-02-22] MEDS: CHLORHEXIDINE GLUCONATE 2 % 1 PACK (2 CLOTHS) TOP SCH (04:00)
[2017-02-22] MEDS: CEPHALEXIN MONOHYDRATE 500 MG CAP PO SCH (04:59)
[2017-02-22] MEDS: oxyCODONE/ACETAMINOPHEN 10 MG/325 MG TAB PO PRN (04:59)
[2017-02-22] MEDS: INSULIN NovoLIN REGULAR SUPPLEMENTAL SCALE SQ SCH (08:00)
[2017-02-22] MEDS: MAGNESIUM OXIDE 400 MG TAB PO SCH (08:39)
[2017-02-22] MEDS: METOPROLOL TARTRATE 25 MG TAB PO SCH (08:39)
[2017-02-22] MEDS: amLODIPine BESYLATE 5 MG TAB PO SCH (08:39)
[2017-02-22] MEDS: PANTOPRAZOLE SOD 40 MG DELAYED RELEASE TAB PO SCH (08:39)
[2017-02-22] MEDS: SODIUM CHLORIDE 0.9% FLUSH 10 ML FLUSH IV FLUSH SCH (08:40)
[2017-02-22] MEDS: COLLAGENASE OINT 30 GM TUBE EXTERNAL SCH (09:00)
[2017-02-22] MEDS: ACETAMINOPHEN/HYDROcodone 325 MG/5 MG TAB PO PRN (11:15)
== END 2017-02-22 11:33 | DRG 872 ==
LOC: NEPC 21:33 → NEDA 02-09 01:18 → HIMW 02-09 02:15 → HCIS 02-10 21:36
PROVIDERS: ADMIT Hospitalist; ATTEND Hospitalist
PROC: 0T9B70Z Drainage of Bladder with Drainage Device, Via Natural or Artificial Opening (ICD-10-PCS; principal; 2017-02-09)
PROC: 30233N1 Transfusion of Nonautologous Red Blood Cells into Peripheral Vein, Percutaneous Approach (ICD-10-PCS; 2017-02-09)
DX: A41.9 Sepsis, unspecified organism (principal); E87.0 Hyperosmolality and hypernatremia; M62.82 Rhabdomyolysis; N17.9 Acute kidney failure, unspecified; E11.52 Type 2 diabetes mellitus with diabetic peripheral angiopathy with gangrene; I13.0 Hypertensive heart and chronic kidney disease with heart failure and stage 1 through stage 4 chronic kidney disease, or unspecified chronic kidney disease; I50.22 Chronic systolic (congestive) heart failure; N18.3 Chronic kidney disease, stage 3 (moderate); E83.39 Other disorders of phosphorus metabolism; E86.0 Dehydration; I48.91 Unspecified atrial fibrillation; I69.354 Hemiplegia and hemiparesis following cerebral infarction affecting left non-dominant side; L03.116 Cellulitis of left lower limb; E11.22 Type 2 diabetes mellitus with diabetic chronic kidney disease; J43.9 Emphysema, unspecified; F32.9 Major depressive disorder, single episode, unspecified; F41.9 Anxiety disorder, unspecified; M19.90 Unspecified osteoarthritis, unspecified site; E78.5 Hyperlipidemia, unspecified; L89.629 Pressure ulcer of left heel, unspecified stage; L97.522 Non-pressure chronic ulcer of other part of left foot with fat layer exposed; F17.210 Nicotine dependence, cigarettes, uncomplicated; E87.5 Hyperkalemia; G89.29 Other chronic pain; M54.5 Low back pain; E11.621 Type 2 diabetes mellitus with foot ulcer; K20.9 Esophagitis, unspecified; I65.21 Occlusion and stenosis of right carotid artery; Z80.0 Family history of malignant neoplasm of digestive organs; Z82.49 Family history of ischemic heart disease and other diseases of the circulatory system; Z83.3 Family history of diabetes mellitus; K52.9 Noninfective gastroenteritis and colitis, unspecified; D53.9 Nutritional anemia, unspecified; M81.0 Age-related osteoporosis without current pathological fracture; Z74.01 Bed confinement status; R65.20 Severe sepsis without septic shock; K22.70 Barrett's esophagus without dysplasia; D63.1 Anemia in chronic kidney disease; N27.0 Small kidney, unilateral; I25.10 Atherosclerotic heart disease of native coronary artery without angina pectoris; Z53.20 Procedure and treatment not carried out because of patient's decision for unspecified reasons
CPT/HCPCS: 36430; 71045; 71250; 73650; 74176; 76775; 80048; 80053; 80069; 80076; 80307; 81001; 82550; 82552; 82570; 82607; 82668; 82728; 82746; 82948; 83540; 83550; 83605; 83690; 83735; 83921; 84100; 84132; 84165; 84300; 84436; 84443; 84484; 85014; 85018; 85025; 85027; 85044; 85060; 85610; 85652; 85730; 86038; 86140; 86430; 86850; 86900; 86901; 86920; 87040; 87205; 87641; 93005; 93922; 94150; 94640; 94664; 96361; 96374; 99211; 99283; C9113; G0463; J0360; J0610; J1815; J2270; J2543; J7030; J7042; J7050; J7070; J7613; P9016; P9047

== ENCOUNTER 2017-05-18 12:01 | Inpatient (IN) | payer MEDICAID ==
[2017-05-18] VITALS (7 sets, daily range): BP systolic 202; BP diastolic 115; PULSE 74–79; RESP 17; TEMP 98; O2SAT 96–100
[~2017-05-18] VITALS: Ht 170.2 cm; Wt 40.5 kg
[~2017-05-18 12:01] MED LIST changes: +AMLO5 PO; -ASPI1TAB56 PO; +CEPH500C PO; -FURO20TA PO; +LACTCHW3 CHEW; -LISI10TA3 PO; +METR-1 PO; -NORC5TAB PO; -TRAM50 PO
[2017-05-18] MEDS ORDERED: SODIUM CHLORIDE 0.9% FLUSH 10 ML FLUSH IV FLUSH PRN ×3 (12:30→19:00)
[2017-05-18] MEDS ORDERED: SODIUM CHLORID 0.9% 500 ML INJ 500 ML IV ONE (12:30)
[2017-05-18] MEDS: SODIUM CHLOR 0.9% 1000 ML INJ 1,000 ML IV SCH ×3 (12:44→22:24)
[2017-05-18 13:06] LABS: AUTOMATED NEUTROPHIL # 15.8 TH/MM3 (1.8-7.7); BASOPHIL # 0.1 TH/MM3 (0-0.2); BASOPHIL % 0.7 % (0.0-2.0); EOSINOPHIL % 0.1 % (0.0-4.0); HEMATOCRIT 42.1 % (39.0-51.0); HEMOGLOBIN 14.1 GM/DL (13.0-17.0); LYMPH % 8.8 % (9.0-44.0); LYMPHOCYTE # 1.6 TH/MM3 (1.0-4.8); MEAN CELL VOLUME 87.4 FL (80.0-100.0); MEAN CORPUSCULAR HEMOGLOBIN 29.2 PG (27.0-34.0); MEAN CORPUSCULAR HGB CONC 33.4 % (32.0-36.0); MEAN PLATELET VOLUME 7.6 FL (7.0-11.0); MONO % 4.3 % (0.0-8.0); MONOCYTE # 0.8 TH/MM3 (0-0.9); NEUT % 86.1 % (16.0-70.0); PLATELET COUNT 547 TH/MM3 (150-450); RED BLOOD COUNT 4.82 MIL/MM3 (4.50-5.90); RED CELL DISTRIBUTION WIDTH 14.7 % (11.6-17.2); WHITE BLOOD COUNT 18.3 TH/MM3 (4.0-11.0)
[2017-05-18] MEDS ORDERED: LORazepam 2 MG/ML VIAL IV PUSH ONE (13:15)
[2017-05-18 13:32] LABS: ALBUMIN 3.4 GM/DL (3.4-5.0); ALKALINE PHOSPHATASE 134 U/L (45-117); ALT (GPT) 27 U/L (12-78); AST (GOT) 30 U/L (15-37); BICARBONATE 34.4 MEQ/L (21.0-32.0); BLOOD UREA NITROGEN 20 MG/DL (7-18); CALCIUM 9.3 MG/DL (8.5-10.1); CHLORIDE 94 MEQ/L (98-107); CREATININE 1.17 MG/DL (0.60-1.30); GLOMERULAR FILTRATION RATE 64 ML/MIN (>89); GLUCOSE,RANDOM 120 MG/DL (74-106); SODIUM (NA) 138 MEQ/L (136-145); TOTAL BILIRUBIN ADULT 0.3 MG/DL (0.2-1.0); TOTAL PROTEIN 8.1 GM/DL (6.4-8.2); TROPONIN I 0.24 NG/ML (0.02-0.05)
--- NOTE | 2017-05-18 13:59 | PD ---
HPI Chief Complaint: Seizure Time Seen by Provider: 12:15 Travel History International Travel<30 days: No Contact w/Intl Traveler<30days: No Traveled to known affect area: No History of Present Illness HPI 57-year-old male with a history of CVA, cardiomyopathy, non-STEMI, chronic lower extremity wounds, peripheral vascular disease, presents here from the longterm with complaints of altered mental status and reported fever. According to the paramedics, the longtermhome health specialist state that they found him slumped over the bed. They reported that he had decreased mental status. They also reported a fever of 103. When paramedics arrived, they found him to be with normal temperature. He did appear altered and somewhat aggressive. There is no other further history elicited. PFSH Past Medical History Hx Anticoagulant Therapy: Yes (unknown) Arthritis: Yes Asthma: No Autoimmune Disease: No Blood Disorders: No Anxiety: Yes Depression: Yes Heart Rhythm Problems: No Cancer: No Cardiovascular Problems: Yes High Cholesterol: Yes Chest Pain: No Congestive Heart Failure: No COPD: Yes Cerebrovascular Accident: Yes Diabetes: No Diminished Hearing: No Endocrine: No Gastrointestinal Disorders: No GERD: No Genitourinary: No Hiatal Hernia: No Hypertension: Yes Immune Disorder: No Implanted Vascular Access Dvce: Yes Musculoskeletal: Yes Neurologic: Yes (CVA) Psychiatric: Yes Reproductive: No Respiratory: Yes (COPD) Immunizations Current: Yes Migraines: No Seizures: No Sleep Apnea: No Thyroid Disease: No Ulcer: No ?: Past Surgical History Abdominal Surgery: No Body Medical Devices: HARDWARE RT ANKLE Cardiac Surgery: No Ear Surgery: No Endocrine Surgery: No Eye Surgery: Yes (Right retina repaired via laser) Genitourinary Surgery: No Gynecologic Surgery: No Insulin Pump: No Neurologic Surgery: No Oral Surgery: No Thoracic Surgery: No Other Surgery: Yes (RIGHT ANKLE, 8 SCREWS AND PLATE) Social History Alcohol Use: No Tobacco Use: Yes (1 PPD) Substance Use: No Allergies-Medications (Allergen,Severity, Reaction): Coded Allergies: No Known Allergies (Verified Allergy, Unknown, 02/08/17) Reported Meds & Prescriptions Reported Meds & Active Scripts Active Hydrocodone-Acetamin 5-325 mg (Hydrocodone/Acetaminophen) 5 Mg-325 Mg Tablet 1 Tab PO Q4H PRN Ferosul (Ferrous Sulfate) 325 Mg (65 Mg Iron) Tablet 325 Mg PO BID@12,17 Atorvastatin (Atorvastatin Calcium) 20 Mg Tab 20 Mg PO HS Coreg (Carvedilol) 3.125 Mg Tab 3.125 Mg PO Q12HR Reported Ascorbic Acid 500 Mg Tab 500 Mg PO BID Senna-Lax (Sennosides) 8.6 Mg Tab 8.6 Mg PO BID Remeron Soltab (Mirtazapine) 15 Mg Tab 15 Mg PO HS Zofran (Ondansetron HCl) 4 Mg Tab 4 Mg PO Q6HR PRN Norvasc (Amlodipine Besylate) 5 Mg Tab 7.5 Mg PO DAILY Take 1 tablet (5mg) with 2.5mg tablet for a total dose of 7.5mg Norvasc (Amlodipine Besylate) 2.5 Mg Tab 7.5 Mg PO DAILY Take 1 tablet (2.5mg) with 5mg tablet for a total dose of 7.5mg Multiple Vitamin/Minerals (Multiple Vitamins W/ Minerals) 1 Tab Tab 1 Tab PO DAILY Milk of Magnesia Liq (Magnesium Hydroxide) 400 Mg/5 Ml Susp 30 Ml PO DAILY PRN Catapres (Clonidine) 0.1 Mg Tab 0.1 Mg PO Q6HR PRN Aspirin EC Low Dose (Aspirin) 81 Mg Tabec 81 Mg PO DAILY Lactobacillus Acidophilus 1 Billion Cell Tab 1 Tab PO TID Review of Systems ROS Limitations: Altered Mental Status Except as stated in HPI: all other systems reviewed are Neg (Unable to obtain review of systems from the patient secondary to his altered mental status.) Physical Exam Narrative GENERAL: Cachectic ill-appearing gentleman in no acute respiratory distress. SKIN: Focused skin assessment warm/dry. Positive skin tenting HEAD: Atraumatic. Normocephalic. EYES: Pupils equal and round. No scleral icterus. No injection or drainage. ENT: No nasal bleeding or discharge. Mucous membranes pink and dry. NECK: Trachea midline. Supple. CARDIOVASCULAR: Sinus tachycardia with a rate in the 120s. No obvious murmur appreciated. RESPIRATORY: No accessory muscle use. Clear to auscultation. Breath sounds equal bilaterally. Decreased respiratory effort. GASTROINTESTINAL: Abdomen soft, non-tender, nondistended. Scaphoid MUSCULOSKELETAL: No obvious deformities. Patient's left upper extremity appears to be chronically contracted. The patient does have wounds on his heels and left posterior leg consistent with chronic wound that he is being treated for at the longterm. NEUROLOGICAL: Awake and confused. No obvious cranial nerve deficits. Moving his extremities however not to command. Data Data Last Documented VS Orders Orders Electrocardiogram (05/18/17 12:18) Ammonia (05/18/17 12:18) Complete Blood Count With Diff (05/18/17 12:18) Comprehensive Metabolic Panel (05/18/17 12:18) Creatine Kinase (Cpk) (05/18/17 12:18) Troponin I (05/18/17 12:18) Urinalysis - C+S If Indicated (05/18/17 12:18) Lactic Acid Sepsis Protocol (05/18/17 12:18) Blood Culture (05/18/17 12:18) Chest, Single Ap (05/18/17 12:18) Ct Brain W/O Iv Contrast(Rout) (05/18/17 12:18) Blood Glucose (05/18/17 12:18) Ecg Monitoring (05/18/17 12:18) Iv Access Insert/Monitor (05/18/17:18) Oximetry (05/18/17 12:18) Sodium Chloride 0.9% Flush (Ns Flush) (05/18/17 12:30) Sodium Chlor 0.9% 1000 Ml Inj (Ns 1000 M (05/18/17 12:18) Sodium Chlorid 0.9% 500 Ml Inj (Ns 500 M (05/18/17 12:30) Lorazepam Inj (Ativan Inj) (05/18/17 13:15) Fosphenytoin Inj (Cerebyx Inj) (05/18/17 14:00) Sodium Chlor 0.9% 1... W/Potassium Aceta (05/18/17 15:40) ^ Seizure Precautions (05/18/17 15:43) Pressure Ulcer Prevention-Prot 08,20 (05/18/17 15:43) Admit To Inpatient (05/18/17 ) Code Status (05/18/17 15:44) Vital Signs (Adult) TREY.Q1H (05/18/17 15:44) Activity Bed Rest (05/18/17 15:44) Elevate Head Of Bed (05/18/17 15:44) Neuro Checks . ORDERED (05/18/17 15:44) Intake + Output Q1H (05/18/17 15:44) Diet Npo (05/18/17 Dinner) Sodium Chlor 0.9% 1000 Ml Inj (Ns 1000 M (05/18/17 16:00) Sodium Chloride 0.9% Flush (Ns Flush) (05/18/17 15:45) Sodium Chloride 0.9% Flush (Ns Flush) (05/18/17 21:00) Acetaminophen (Tylenol) (05/18/17 15:45) Acetamin-Hydrocod 325-5 Mg ([place] 5-325 (05/18/17 15:45) Famotidine Inj (Pepcid Inj) (05/18/17 21:00) Lorazepam Inj (Ativan Inj) (05/18/17 15:45) Artificial Tears Opth Soln (Tears Natura (05/18/17 18:00) Ondansetron Inj (Zofran Inj) (05/18/17 15:45) Albuterol-Ipratropium Neb (Duoneb Neb) (05/18/17 16:00) Albuterol Neb (Albuterol Neb) (05/18/17 15:45) Complete Blood Count With Diff (05/19/17 04:00) Comprehensive Metabolic Panel (05/19/17 04:00) Troponin I (05/18/17 20:00) Troponin I (05/19/17 02:00) Act Partial Throm Time (Ptt) (05/19/17 04:00) Prothrombin Time / Inr (Pt) (05/19/17 04:00) Magnesium (Mg) (05/19/17 04:00) Phosphorus (Po4) (05/19/17 04:00) Lactic Acid (05/19/17 04:00) Ammonia (05/19/17 06:00) Resp Incentive Spirometry (05/18/17 ) Resp Oxygen Mehrdad C Titrat 1-4 L (05/18/17 ) Pt Request For Service (05/18/17 15:44) Organ Grinder / Telemetry TREY.Q8H (05/18/17 15:44) Heparin Inj (Heparin Inj) (05/18/17 17:00) ^ Initiate Protocol (05/18/17 15:44) Instruction (05/18/17 15:44) Misc Nursing Information (05/18/17 15:45) Chlorhexidine 2% Cloth (Chlorhexidine 2% (05/19/17 04:00) Chlorhexidine 2% Cloth (Chlorhexidine 2% (05/18/17 15:45) Mrsa Pcr Surveillance (05/18/17 15:44) Docusate Sodium-Senna (Kajal-Colace) (05/18/17 21:00) Magnesium Hydroxide Liq (Milk Of Magnesi (05/18/17 15:45) Sennosides (Senokot) (05/18/17 15:45) Bisacodyl Supp (Dulcolax Supp) (05/18/17 15:45) Lactulose Liq (Lactulose Liq) (05/18/17 15:45) Bedside Glucose TREY.CSUGAR (05/18/17 15:44) Blood Glucose Goal (Criteria) (05/18/17 15:44) Hypoglycemia 70 Mg/Dl Or < (05/18/17 15:44) Notify Dr: Other (05/18/17 15:44) Dextrose 50% In Vivian (Vial) Inj (D50w (Vi (05/18/17 15:45) Glucagon Inj (Glucagon Inj) (05/18/17 15:45) Insulin Human Reg Supp Scale (Novolin R (05/18/17 17:00) Inpatient Certification (05/18/17 ) Ascorbic Acid (Vitamin C) (05/18/17 21:00) Aspirin Ec (Ecotrin Ec) (05/19/17 09:00) Atorvastatin (Lipitor) (05/18/17 21:00) Carvedilol (Coreg) (05/18/17 21:00) Mirtazapine Odt (Remeron Soltab Odt) (05/18/17 21:00) Eeg Study (05/18/17 ) Speech Therapy Consult-Eval/Tx (05/18/17 15:47) Admit Order (Ed Use Only) (05/18/17 15:55) Morphine Inj (Morphine Inj) (05/18/17 16:15) Labs Laboratory Tests Test 05/18/17 12:30 White Blood Count 18.3 TH/MM3 Red Blood Count 4.82 MIL/MM3 Hemoglobin 14.1 GM/DL Hematocrit 42.1 % Mean Corpuscular Volume 87.4 FL Mean Corpuscular Hemoglobin 29.2 PG Mean Corpuscular Hemoglobin Concent 33.4 % Red Cell Distribution Width 14.7 % Platelet Count 547 TH/MM3 Mean Platelet Volume 7.6 FL Neutrophils (%) (Auto) 86.1 % Lymphocytes (%) (Auto) 8.8 % Monocytes (%) (Auto) 4.3 % Eosinophils (%) (Auto) 0.1 % Basophils (%) (Auto) 0.7 % Neutrophils # (Auto) 15.8 TH/MM3 Lymphocytes # (Auto) 1.6 TH/MM3 Monocytes # (Auto) 0.8 TH/MM3 Eosinophils # (Auto) 0.0 TH/MM3 Basophils # (Auto) 0.1 TH/MM3 CBC Comment DIFF FINAL Differential Comment Blood Urea Nitrogen 20 MG/DL Creatinine 1.17 MG/DL Random Glucose 120 MG/DL Total Protein 8.1 GM/DL Albumin 3.4 GM/DL Calcium Level 9.3 MG/DL Alkaline Phosphatase 134 U/L Aspartate Amino Transf (AST/SGOT) 30 U/L Alanine Aminotransferase (ALT/SGPT) 27 U/L Total Bilirubin 0.3 MG/DL Sodium Level 138 MEQ/L Potassium Level 2.5 MEQ/L Chloride Level 94 MEQ/L Carbon Dioxide Level 34.4 MEQ/L Anion Gap 10 MEQ/L Estimat Glomerular Filtration Rate 64 ML/MIN Lactic Acid Level 2.0 mmol/L Ammonia LESS THAN 10 MCMOL/L Total Creatine Kinase 102 U/L Troponin I 0.24 NG/ML MDM Medical Decision Making Medical Screen Exam Complete: Yes Emergency Medical Condition: Yes Differential Diagnosis Metabolic derangement intracranial abnormality versus sepsis Narrative Course 57-year-old male with history of previous CVA, COPD, CHF, peripheral vascular disease, poor social situation, previous non-STEMI, presents today in the longterm for decreased mental status changes. Patient had a witnessed seizure in the emergency department. He was given 2 mg of Ativan. He was loaded with 1 g of fosphenytoin. Case was discussed with Dr. Lewis, hand sample maker , who will admit the patient to his service. Patient was also noted to have an elevated troponin. He has had a previous non-STEMI in the past. Critical Care Narrative Aggregate critical care time was 45 minutes. Time to perform other separately billable procedures was not included in the critical care time. My time did not include minutes spent treating any other patients simultaneously or on activities that did not directly contribute to the patient's treatment. The services I provided to this patient were to treat and/or prevent clinically significant deterioration that could result in: I provided critical care services requiring my management, as noted below: Chart data review, documentation time, medication orders and management, vital sign assessments/reviewing monitor data, ordering and reviewing lab tests, ordering and interpreting/reviewing x-rays and diagnostic studies, care of the patient and discussion of the patient with the admitting physicians. Diagnosis Primary Impression: Altered mental status Additional Impressions: Acute kidney injury Leukocytosis Qualified Codes: D72.829 - Elevated white blood cell count, unspecified PVD (peripheral vascular disease) Seizure Admitting Information Admitting Physician Requests: Admit Antwan Javed MD May 18, 2017 13:59
[2017-05-18] MEDS ORDERED: FOSPHENYTOIN INJ 1,000 MGPE in SODIUM CHLORIDE 0.9% INJ 50 ML IV ONE (14:00)
[2017-05-18] MEDS ORDERED: NORV2.5T PO (14:14)
[2017-05-18] MEDS ORDERED: REME15TA2 PO (14:14)
[2017-05-18] MEDS ORDERED: MILKSUS PO (14:14)
[2017-05-18] MEDS ORDERED: MULT1TAB39 PO (14:14)
[2017-05-18] MEDS ORDERED: SENN187 PO (14:14)
[2017-05-18] MEDS ORDERED: LACTTAB8 PO (14:14)
[2017-05-18] MEDS ORDERED: AMLO5 PO (14:14)
[2017-05-18] MEDS ORDERED: ASPI81TA22 PO (14:14)
[2017-05-18] MEDS ORDERED: ASCO500T PO (14:14)
[2017-05-18] MEDS ORDERED: ZOFR4TAB PO (14:14)
[2017-05-18] MEDS ORDERED: CLON.1 PO (14:14)
--- NOTE | 2017-05-18 14:32 | RADRPT ---
EXAM DATE/TIME: 05/18/2017 13:57 [facility] COMPARISON: CHEST SINGLE AP, February 08, 2017, 22:37. INDICATIONS : MEDICAL HISTORY : Hypertension. Chronic obstructive pulmonary disease. CVA. SURGICAL HISTORY : None. ENCOUNTER: Initial ACUITY: 1 day PAIN SCORE: Non-responsive. LOCATION: Bilateral chest FINDINGS: Lungs are hyperexpanded with scarring again noted in the lung apices. No new focal pleural or parench ymal opacities. Cardiomediastinal contours are stable. Remainder of exam is unchanged. CONCLUSION: 1. No acute animality or significant interval change. Doug Valencia MD on May 18, 2017 at 14:29 Board Certified Radiologist. This report was verified electronically.
--- NOTE | 2017-05-18 14:38 | RADRPT ---
EXAM DATE/TIME: 05/18/2017 14:10 [facility] COMPARISON: CT BRAIN W/O CONTRAST, September 05, 2016, 20:32. INDICATIONS : Altered mental status, seizure. RADIATION DOSE: 34.71 CTDIvol (mGy) MEDICAL HISTORY : Cerebrovascular disease. Cardiovascular disease Hypertension. SURGICAL HISTORY : Right retina repair. ENCOUNTER: Initial ACUITY: 1 day PAIN SCALE: 3/10 LOCATION: cranial TECHNIQUE: Multiple contiguous axial images were obtained of the head. Using automated exposure control and adj ustment of the mA and/or kV according to patient size, radiation dose was kept as low as reasonably a chievable to obtain optimal diagnostic quality images. DICOM format image data is available electro nically for review and comparison. FINDINGS: CEREBRUM: There is interval worsening of the right frontoparietal infarct seen previously with now extensive en cephalomalacia changes identified in most of the right frontal lobe extending in the anterior aspect of the right parietal lobe. Ablation was also CT posterior limb of the right internal capsule. There is exvacuo dilatation of the adjacent ventricular system. No extra-axial fluid collections are seen. POSTERIOR FOSSA: The cerebellum and brainstem are intact. The 4th ventricle is midline. The cerebellopontine angle i s unremarkable. EXTRACRANIAL: The visualized portion of the orbits is intact. Chronic sinusitis in the right maxillary antra SKULL: The calvaria is intact. No evidence of skull fracture. CONCLUSION: 1. Although chronic appearing, there is interval worsening in the encephalomalacia changes in the rig ht frontoparietal region as detailed above. Exvacuo dilatation of the adjacent ventricular system. 2. Nothing acute. 3. Severe chronic sinusitis the right maxillary antrum. Michael Cruz MD on May 18, 2017 at 14:32 Board Certified Radiologist. This report was verified electronically.
[2017-05-18] MEDS ORDERED: POTASSIUM ACETATE IV STA (15:40)
[2017-05-18] MEDS ORDERED: SODIUM CHLOR 0.9% IV STA (15:40)
[2017-05-18] MEDS ORDERED: ACETAMINOPHEN/HYDROcodone 325 MG/5 MG TAB PO PRN (15:45)
[2017-05-18] MEDS ORDERED: SENNOSIDES 8.6 MG TAB PO PRN (15:45)
[2017-05-18] MEDS ORDERED: BISACODYL 10 MG SUPP RECTAL PRN (15:45)
[2017-05-18] MEDS ORDERED: LACTULOSE SYRUP 20 GM/30 ML CUP PO PRN (15:45)
[2017-05-18] MEDS ORDERED: GLUCAGON 1 MG/ML VIAL OTHER PRN (15:45)
[2017-05-18] MEDS ORDERED: MISCELLANEOUS NURSING INFORMATION XX SCH (15:45)
[2017-05-18] MEDS ORDERED: MAGNESIUM HYDROXIDE SUSP 30 ML CUP PO PRN (15:45)
[2017-05-18] MEDS ORDERED: CHLORHEXIDINE GLUCONATE 2 % 1 PACK (2 CLOTHS) TOP PRN (15:45)
[2017-05-18] MEDS ORDERED: LORazepam 2 MG/ML VIAL IV PUSH PRN (15:45)
[2017-05-18] MEDS ORDERED: ONDANSETRON HCL 4 MG/2 ML VIAL IV PUSH PRN (15:45)
[2017-05-18] MEDS ORDERED: MORPHINE SULFATE 2 MG/ML SYRINGE PO PRN (16:15)
--- NOTE | 2017-05-18 16:37 | HHI.HP ---
[facility] Service Critical Care Medicine Primary Care Physician Moreno Clark MD Admission Diagnosis Altered mental status, hyponatremia, seizure, chronic lower extremit Diagnosis: (1) Seizure Diagnosis: Principal (2) Depression Diagnosis: Secondary (3) Dyslipidemia Diagnosis: Secondary (4) Thrombocytosis Diagnosis: Secondary (5) Leukocytosis Diagnosis: Secondary (6) Peripheral angiopathy Diagnosis: Secondary (7) Encephalopathy Diagnosis: Principal (8) Carotid artery stenosis Diagnosis: Secondary (9) Elevated troponin Diagnosis: Principal (10) Chronic systolic heart failure Diagnosis: Secondary (11) COPD exacerbation Diagnosis: Secondary (12) PVD (peripheral vascular disease) Diagnosis: Secondary (13) Chronic back pain Diagnosis: Secondary (14) Ulcer of left foot Diagnosis: Secondary Chief Complaint: Brought in from care home after not taking medications same with altered mental status Travel History International Travel<30 Days: No Contact w/Intl Traveler <30 Da: No Traveled to Known Affected Are: No History of Present Illness 57-year-old male. Date of admission 05/18/2017. 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 Today, he presents to [facility] ED from the care home with complaints of altered mental status and reported fever. According to documentation from ED visit, the paramedics documented that the care homedistrict home economics agent stated that they found him slumped over the bed. They reported that he had decreased mental status. They also reported a fever of 103. When paramedics arrived, they found him to be with normal temperature. He did appear altered and somewhat aggressive. There is no other further history elicited. Patient had a white blood cell count of 18,000. Potassium 2.5. Elevated troponin 0 0.24. EKG currently pending. CT brain revealed subtle increased right frontal parietal temporal changes with ex vacuo dilatation of the ventricles. Right maxillary sinusitis. Patient had a witnessed seizure in the ED was given 1 g of fosphenytoin and 2 mg of midazolam. He is also received 1.5 L normal saline and is placed on potassium protocol for potassium 2.5. Magnesium is currently pending. Review of Systems ROS Limitations: Clinical Condition, Altered Mental Status Past Family Social History Allergies: Coded Allergies: No Known Allergies (Verified Allergy, Unknown, 02/08/17) Past Medical History Right frontal parietal CVA Right internal carotid artery occlusion Depression disorder NOS Essential hypertension Hyperlipidemia Osteoarthritis Chronic left heel ulcer Peripheral vascular disease with multiple occlusion of bilateral lower extremities Chronic systolic heart failure ejection fraction 35-40% Tobaccoism Esophagitis Past Surgical History Right thoracotomy/chest tube Left heel ulcer right eye right ankle debridement Active Ordered Medications Iron sulfate 325 mg by mouth twice daily Atorvastatin 20 mg p.o. daily Clonidine 0.1 mg p.o. every 6 hours as needed hypertension Carvedilol 3.125 mg p.o. twice daily Amlodipine 7.5 mg p.o. daily Aspirin 81 mg p.o. daily Mirtazapine 50 mg p.o. daily Hydrocodone/acetaminophen 5/325 1 tablet every 4 hours as needed pain Multivitamin 1 tablet p.o. daily Family History Father with colon cancer and hypertension. Mother with diabetes Social History Prior history of 1 pack per day tobacco. Previously consumed 12 beers daily. Currently sober. No documentation of illicit drug use. Physical Exam Vital Signs Vital Signs Date Time Temp Pulse Resp B/P (MAP) Pulse Ox O2 Delivery O2 Flow Rate FiO2 05/18/17 13:27 98 Nasal Cannula 2.00 05/18/17 13:09 98.0 75 17 202/115 144 98 Physical Exam GENERAL: 57-year-old male currently somnolent currently resting in bed in no acute distress protecting airway SKIN: Warm and dry. Dry necrotic ulcer to left kam/heel noted. HEAD: Atraumatic. Normocephalic. EYES: Pupils equal and round. No scleral icterus. No injection or drainage. ENT: No nasal bleeding or discharge. Mucous membranes pink and moist. NECK: Trachea midline. No JVD. CARDIOVASCULAR: Regular rate and rhythm. S1, S2. No S4. Without murmur RESPIRATORY: No accessory muscle use. Clear to auscultation. Breath sounds equal bilaterally. GASTROINTESTINAL: Abdomen soft, non-tender, scaphoid. Positive bowel sounds appreciated MUSCULOSKELETAL: Extremities without clubbing, cyanosis, or edema. No obvious deformities. NEUROLOGICAL: Withdraws to pain. GCS around 9. [id number]. Laboratory Laboratory Tests Test 05/18/17 12:30 White Blood Count 18.3 Red Blood Count 4.82 Hemoglobin 14.1 Hematocrit 42.1 Mean Corpuscular Volume 87.4 Mean Corpuscular Hemoglobin 29.2 Mean Corpuscular Hemoglobin Concent 33.4 Red Cell Distribution Width 14.7 Platelet Count 547 Mean Platelet Volume 7.6 Neutrophils (%) (Auto) 86.1 Lymphocytes (%) (Auto) 8.8 Monocytes (%) (Auto) 4.3 Eosinophils (%) (Auto) 0.1 Basophils (%) (Auto) 0.7 Neutrophils # (Auto) 15.8 Lymphocytes # (Auto) 1.6 Monocytes # (Auto) 0.8 Eosinophils # (Auto) 0.0 Basophils # (Auto) 0.1 CBC Comment DIFF FINAL Differential Comment Blood Urea Nitrogen 20 Creatinine 1.17 Random Glucose 120 Total Protein 8.1 Albumin 3.4 Calcium Level 9.3 Alkaline Phosphatase 134 Aspartate Amino Transf (AST/SGOT) 30 Alanine Aminotransferase (ALT/SGPT) 27 Total Bilirubin 0.3 Sodium Level 138 Potassium Level 2.5 Chloride Level 94 Carbon Dioxide Level 34.4 Anion Gap 10 Estimat Glomerular Filtration Rate 64 Lactic Acid Level 2.0 Ammonia LESS THAN 10 Total Creatine Kinase 102 Troponin I 0.24 Date/Time Source Procedure Growth Status 05/18/17 12:45 Blood Peripheral Aerobic Blood Culture Pending Received 05/18/17 12:45 Blood Peripheral Anaerobic Blood Culture Pending Received Result Diagram: 05/18/17 1230 05/18/17 1230 Imaging Last Impressions Head CT 05/18/171217 Signed Impressions: Service Date/Time: Thursday, May 18, 2017 14:10 - CONCLUSION: 1. Although chronic appearing, there is interval worsening in the encephalomalacia changes in the right frontoparietal region as detailed above. Exvacuo dilatation of the adjacent ventricular system. 2. Nothing acute. 3. Severe chronic sinusitis the right maxillary antrum. Michael Cruz MD Chest X-Ray 05/18/178 Signed Impressions: Service Date/Time: Thursday, May 18, 2017 13:57 - CONCLUSION: 1. No acute animality or significant interval change. Doug Valencia MD Septic Shock Reassessment Septic shock perfusion: reassessment completed Caprini VTE Risk Assessment Caprini VTE Risk Assessment: Mod/High Risk (score >= 2) Caprini Risk Assessment Model Point Value = 1 Point Value = 2 Point Value = 3 Point Value = 5 Age 41-60 Minor surgery BMI > 25 kg/m2 Swollen legs Varicose veins or History of unexplained or recurrent spontaneous Oral contraceptives or hormone replacement Sepsis (< 1 month) Serious lung disease, including pneumonia (< 1 month) Abnormal pulmonary function Acute myocardial infarction Congestive heart failure (< 1 month) History of inflammatory bowel disease Medical patient at bed rest Age 61-74 Arthroscopic surgery Major open surgery (> 45 min) Laparoscopic surgery (> 45 min) Malignancy Confined to bed (> 72 hours) Immobilizing plaster cast Central venous access Age >= 75 History of VTE Family history of VTE Factor V Leiden Prothrombin [id number] Lupus anticoagulant Anticardiolipin antibodies Elevated serum homocysteine Heparin-induced thrombocytopenia Other congenital or acquired thrombophilia Stroke (< 1 month) Elective arthroplasty Hip, pelvis, or leg fracture Acute spinal cord injury (< 1 month) Prophylaxis Regimen Total Risk Factor Score Risk Level Prophylaxis Regimen 0-1 Low Early ambulation 2 Moderate Order ONE of the following: *Sequential Compression Device (SCD) *Heparin 5000 units SQ BID 3-4 Higher Order ONE of the following medications: *Heparin 5000 units SQ TID *Enoxaparin/Lovenox 40 mg SQ daily (WT < 150 kg, CrCl > 30 mL/min) *Enoxaparin/Lovenox 30 mg SQ daily (WT < 150 kg, CrCl > 10-29 mL/min) *Enoxaparin/Lovenox 30 mg SQ BID (WT < 150 kg, CrCl > 30 mL/min) AND/OR *Sequential Compression Device (SCD) 5 or more Highest Order ONE of the following medications: *Heparin 5000 units SQ TID (Preferred with Epidurals) *Enoxaparin/Lovenox 40 mg SQ daily (WT < 150 kg, CrCl > 30 mL/min) *Enoxaparin/Lovenox 30 mg SQ daily (WT < 150 kg, CrCl > 10-29 mL/min) *Enoxaparin/Lovenox 30 mg SQ BID (WT < 150 kg, CrCl > 30 mL/min) AND *Sequential Compression Device (SCD) Assessment and Plan Assessment and Plan Neuro/Psych: Seizure History of right frontal parietal CVA with left-sided weakness History of right ICA occlusion Prior history of alcoholism Depression NOS Chronic opioid use CT brain revealed right frontoparietal temporal changes with ex vacuo dilatation. Right maxillary sinusitis Received 1 g fosphenytoin in ED. 2 mg of lorazepam. Seizure precautions EEG/MRI brain ordered Start on phenytoin 100 mg IV every 8 hours Recheck levels in a.m. CV: Chronic systolic heart failure ejection fraction 35-40% Hypertension Hyperlipidemia Peripheral vascular occlusive disease Elevated troponin Echocardiogram 07/22 revealed EF 35-40%. LVH. Septal hypokinesis. Pulmonary arterial pressures 23 mmHg Repeat echocardiogram pending Continue carvedilol 3.125 mg twice daily. Currently on atorvastatin 20 mg by mouth daily Coumadin aspirin 81 mg p.o. daily Received 1.5 L normal saline in ED. Currently not on diuretics Patient previously refused amputation to left lower extremity per Dr. Dasilva 02/22 Cycle troponins Resp: Acute respiratory insufficiency History of tobaccoism/COPD Nasal cannula to maintain saturations greater than or equal to 92% Incentive spirometry while awake Albuterol/ipratropium aerosols every 6 hours with albuterol aerosols every 3 hours. Dyspnea Chest x-ray revealed emphysematous changes. No focal infiltrate GI: History of esophagitis Gastroesophageal reflux disease Patient is currently n.p.o. Famotidine for GI prophylaxis Docusate sodium/senna 1 tablet twice daily for bowel regimen : Millard catheter if indicated for accurate I's and O's in a critically ill patient Endo: Sliding scale insulin Accu-Cheks to maintain euglycemia/low regimen every 6 hours Renal: Chronic kidney disease stage III a Currently normal saline at 84 cc an hour Monitor urine output Accurate I's and O's Repeat BMP in a.m. Heme: Leukocytosis Thrombocytosis Currently on ferrous sulfate 325 mg p.o. twice daily Follow-up on coags Does not meet transfusion threshold at this time Monitor CBC daily. Follow trends ID: Blood cultures 2, sputum and urine ordered Monitor for infection FEN: Hypokalemia Replace in ED. Recheck at 2200 hrs. Check magnesium Replace electrolytes as clinically indicated MSK: Osteoporosis/osteoarthritis Left heel ulcer Physical therapy evaluate and treat. Wound care evaluate left lower extremity. Access -Utilize peripheral IV. Central and if indicated Prophylaxis -GI -famotidine -DVT -SCD/heparin subcu Critical Care: The total critical care time was 35 minutes. Time to perform other separately billable procedures was not included in the critical care time. Code Status Full code Discussed Condition With Dr. Javed/COOPER physician. No family available. Care plan discussed and all questions answered. Problem Qualifiers (1) Leukocytosis: Qualified Codes: D72.829 - Elevated white blood cell count, unspecified (2) Carotid artery stenosis: Qualified Codes: I65.21 - Occlusion and stenosis of right carotid artery (3) Chronic back pain: Qualified Codes: M54.5 - Low back pain; G89.29 - Other chronic pain (4) Ulcer of left foot: Qualified Codes: L97.529 - Non-pressure chronic ulcer of other part of left foot with unspecified severity Bo Grant MD May 18, 2017 16:37
[2017-05-18] MEDS: RESP: ALBUTEROL 2.5 MG/IPRATROPIUM 0.5 MG NEB (SCH) INH ×2 (16:56→21:02)
[2017-05-18] MEDS ORDERED: NITROGLYCERIN 2% OINT 1 GM PACKET TOPICAL PRN (17:00)
[2017-05-18] MEDS ORDERED: MAGNESIUM SULFATE INJ 4 GM in SODIUM CHLORIDE 0.9% INJ 92 ML IV PRN (17:00)
[2017-05-18] MEDS ORDERED: POTASSIUM CHLORIDE 25 MEQ EFFERVESCENT TAB PO PRN (17:00)
[2017-05-18] MEDS ORDERED: POTASSIUM PHOSPHATE MONOBASIC 500 MG TAB PO PRN (17:00)
[2017-05-18] MEDS ORDERED: POTASSIUM PHOSPHATE INJ 30 MMOL in SODIUM CHLOR 0.9% 250 ML INJ 250 ML IV PRN (17:00)
[2017-05-18] MEDS ORDERED: MAGNESIUM SULFATE INJ 2 GM in SODIUM CHLORIDE 0.9% INJ 96 ML IV PRN (17:00)
[2017-05-18] MEDS ORDERED: POTASSIUM PHOSPHATE MONOBASIC 500 MG TAB PO/TUBE PRN (17:00)
[2017-05-18] MEDS ORDERED: POTASSIUM CHLOR 40 MEQ PREMIX 100 ML IV PRN ×2 (17:00)
[2017-05-18] MEDS ORDERED: SODIUM PHOSPHATE INJ 30 MMOL in SODIUM CHLOR 0.9% 250 ML INJ 240 ML IV PRN (17:00)
[2017-05-18] MEDS ORDERED: POTASSIUM CHLOR 20 MEQ PREMIX 100 ML IV PRN (17:00)
[2017-05-18] MEDS ORDERED: MAGNESIUM OXIDE 400 MG TAB PO PRN (17:00)
[2017-05-18] MEDS ORDERED: ETOMIDATE 40 MG/20 ML VIAL ONE (17:52)
[2017-05-18] MEDS ORDERED: ROCURONIUM INJ 50 MG/5 ML VIAL ONE (17:53)
[2017-05-18] MEDS ORDERED: ROCURONIUM INJ 50 MG/5 ML VIAL IV ONE (18:00)
[2017-05-18] MEDS ORDERED: ETOMIDATE 20 MG/10 ML VIAL IV PUSH ONE (18:00)
[2017-05-18] MEDS ORDERED: fentaNYL DRIP 250 ML IV PRN (18:00)
[2017-05-18] MEDS ORDERED: PROPOFOL 500 MG/50 ML INJ 50 ML ONE (18:01)
[2017-05-18 18:04] LABS: INTERNATIONAL NORMALIZED RATIO 1.1 RATIO; PROTHROMBIN TIME - PATIENT 10.8 SEC (9.8-11.6)
--- NOTE | 2017-05-18 18:56 | PD.PROCEDR ---
Procedure Note Procedure DATE: 05/18/2017 PROCEDURE: Orotracheal intubation INDICATION: Acute respiratory failure DETAILS OF PROCEDURE The patient was placed in optimal position and preoxygenated with 100% FiO2 via bag valve mask. At the start oxygen saturation was 100%. The patient was administered 20 milligrams etomidate IV and 50 milligrams rocuronium IV. I entered the oropharynx with a size 4 GVL glidescope blade and obtained a grade 2 view of the airway. On single attempt a size 8.0 cuffed endotracheal tube was passed through the vocal cords. Correct tube location was confirmed with end tidal CO2 detector and by auscultating over bilateral lung braswell. The endotracheal tube was secured with adhesive tape at a depth of 24 cm at the lips. The patient was connected to the ventilator. The patient tolerated the procedure well without any apparent complications. Oxygen saturations were maintained greater than 95% all times. STAT chest x-ray pending at time of dictation. Bo Grant MD May 18, 2017 18:56
--- NOTE | 2017-05-18 18:57 | PD.PROCEDR ---
Central Line Procedure REASON FOR PROCEDURE Central venous access PROCEDURE PERFORMED Central line placement: Right IJ CVL CONSENT Informed consent for procedure was not obtained and considered emergent secondary to lack of peripheral IV access and hypokalemia. The risks and benefits of the procedure were discussed to include but limited to bleeding, clot formation, infection, and even . ANESTHESIA Local injection of 1% Lidocaine DESCRIPTION OF THE PROCEDURE The patient was placed in supine, mild Trendelenburg position. The area was exposed and cleansed with ChloraPrep, times two. Large sterile drape was used to cover the patient, with the site exposed, under sterile conditions including cap, face mask, sterile gown, and sterile gloves. On single attempt, the introducer needle was inserted with negative pressure in syringe and venous flash was obtained. The guide wire was then advanced without any restriction and the needle was removed. The dilator was used without any complications. Using Seldinger technique the antibiotic coated triple lumen catheter was advanced over the guide wire to a depth of 16 centimeters. The guide wire was removed. All ports were aspirated with dark venous blood return and flushed easily with sterile saline. All ports were capped. Antibiotic disc was placed around central line at puncture site. The central line was secured to the skin with two interrupted 2.0 silk sutures. The area was bandaged with sterile see- through central line bandage. RADIOLOGICAL DATA Ultrasound guidance was used to locate pending at time of dictation. Doppler/ color flow was used to confirm venous flow. COMPLICATIONS: No apparent complications ESTIMATED BLOOD LOSS: Less than 1 cc. Bo Grant MD May 18, 2017 18:57
[2017-05-18] MEDS: LABETALOL HCL 100 MG/20 ML VIAL IV PUSH PRN (19:36)
[2017-05-18] MEDS: CHLORHEXIDINE 0.12% (ORAL KIT) 15 ML CUP MT SCH (20:00)
[2017-05-18] MEDS: POTASSIUM CHLOR 20 MEQ PREMIX 100 ML IV PRN ×2 (20:10→22:12)
--- NOTE | 2017-05-18 20:17 | RADRPT ---
EXAM DATE/TIME: 05/18/2017 19:03 [facility] COMPARISON: No previous studies available for comparison. INDICATIONS : Central line placement. MEDICAL HISTORY : Hypertension. Chronic obstructive pulmonary disease. CVA. SURGICAL HISTORY : None. ENCOUNTER: Subsequent ACUITY: 1 day PAIN SCORE: Non-responsive. LOCATION: Bilateral chest FINDINGS: A single view of the chest demonstrates endotracheal tube in good position. Right central line in sup erior vena cava. Previous partial right lung resection. No consolidation or significant effusion. CONCLUSION: 1. Support apparatus in good position. Right upper lobe scarring and pleural thickening with partial lung resection. Underlying emphysema. No pneumothorax. Delta Anderson MD on May 18, 2017 at 20:13 Board Certified Radiologist. This report was verified electronically.
[2017-05-18] MEDS ORDERED: FAMOTIDINE 20 MG/2 ML VIAL IV PUSH SCH (21:00)
[2017-05-18] MEDS: MIRTAZAPINE ODT 15 MG TAB PO SCH (21:00)
[2017-05-18 21:39] LABS: PHOSPHORUS 2.7 MG/DL (2.5-4.9); TROPONIN I 0.59 NG/ML (0.02-0.05)
[2017-05-18] MEDS: CARVEDILOL 3.125 MG TAB PO SCH (22:13)
[2017-05-18] MEDS: ASCORBIC ACID 500 MG TAB PO SCH (22:13)
[2017-05-18] MEDS: ATORVASTATIN 20 MG TAB PO SCH (22:13)
[2017-05-18] MEDS: DOCUSATE SODIUM 50 MG/SENNA 8.6 MG TAB PO SCH (22:17)
[2017-05-18] MEDS: FOSPHENYTOIN SODIUM 100 MG PE/2 ML VIAL IV SCH (22:17)
[2017-05-18] MEDS: PROPOFOL 1000 MG/100 ML INJ 100 ML IV PRN (22:19)
[2017-05-18] MEDS: POTASSIUM CHLORIDE 25 MEQ EFFERVESCENT TAB OG-TUBE SCH (22:19)
[2017-05-18] MEDS: SODIUM CHLORIDE 0.9% FLUSH 10 ML FLUSH IV FLUSH SCH (22:19)
[2017-05-18] MEDS: INSULIN NovoLIN REGULAR SUPPLEMENTAL SCALE SQ SCH (22:24)
[2017-05-19] VITALS (20 sets, daily range): BP systolic 157–161; BP diastolic 69–85; PULSE 67–97; O2SAT 97–100
[2017-05-19] MEDS: POTASSIUM CHLOR 20 MEQ PREMIX 100 ML IV PRN ×2 (00:57→02:23)
[2017-05-19] MEDS: POTASSIUM CHLORIDE 25 MEQ EFFERVESCENT TAB OG-TUBE SCH (00:57)
[2017-05-19] MEDS: RESP: ALBUTEROL 2.5 MG/IPRATROPIUM 0.5 MG NEB (SCH) INH ×4 (03:21→21:30)
[2017-05-19] MEDS: SODIUM CHLOR 0.9% 1000 ML INJ 1,000 ML IV SCH ×2 (03:55→17:16)
[2017-05-19] MEDS: HEPARIN SODIUM - SQ 10,000 UNITS/ML VIAL SQ SCH ×2 (03:55→15:54)
[2017-05-19] MEDS: CHLORHEXIDINE GLUCONATE 2 % 1 PACK (2 CLOTHS) TOP SCH (03:56)
[2017-05-19] MEDS: FOSPHENYTOIN SODIUM 100 MG PE/2 ML VIAL IV SCH ×3 (06:00→21:44)
[2017-05-19 06:28] LABS: INTERNATIONAL NORMALIZED RATIO 1.1 RATIO; PROTHROMBIN TIME - PATIENT 11.2 SEC (9.8-11.6)
[2017-05-19 06:36] LABS: AUTOMATED NEUTROPHIL # 14.1 TH/MM3 (1.8-7.7); BASOPHIL # 0.1 TH/MM3 (0-0.2); BASOPHIL % 0.6 % (0.0-2.0); LYMPH % 9.7 % (9.0-44.0); LYMPHOCYTE # 1.7 TH/MM3 (1.0-4.8); MEAN CELL VOLUME 88.7 FL (80.0-100.0); MEAN CORPUSCULAR HEMOGLOBIN 29.7 PG (27.0-34.0); MEAN CORPUSCULAR HGB CONC 33.5 % (32.0-36.0); MEAN PLATELET VOLUME 7.8 FL (7.0-11.0); MONO % 7.1 % (0.0-8.0); MONOCYTE # 1.2 TH/MM3 (0-0.9); NEUT % 82.6 % (16.0-70.0); PLATELET COUNT 392 TH/MM3 (150-450); RED BLOOD COUNT 3.72 MIL/MM3 (4.50-5.90); RED CELL DISTRIBUTION WIDTH 14.9 % (11.6-17.2)
[2017-05-19] MEDS: INSULIN NovoLIN REGULAR SUPPLEMENTAL SCALE SQ SCH ×3 (08:00→17:15)
--- NOTE | 2017-05-19 08:56 | RADRPT ---
EXAM DATE/TIME: 05/19/2017 08:27 [facility] COMPARISON: MRI BRAIN W/O CONTRAST, July 31, 2016, 17:46. INDICATIONS : CVA. MEDICAL HISTORY : Hypertension. Cardiovascular disease SURGICAL HISTORY : Orthopedic. ENCOUNTER: Initial ACUITY: 1 day PAIN SCORE: 0/10 LOCATION: cranial TECHNIQUE: Multiplanar, multisequence MRI of the brain was performed without contrast. FINDINGS: There is moderate central and cortical with white matter changes evident. Old infarct is seen in the right MCA distribution. There is no restricted diffusion to suggest an acute infarct. White matter changes are seen in both occipital lobes. Other areas of right matter changes are seen scattered throughout most of the convexity worse in the posterior fossa. Ventricular size is appropriate. There are no extra-axial fluid collections appreciated. 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 The posterior fossa show similar white matter changes including lacunar type infarct in the right cer ebral peduncle. Incidental right maxillary sinus disease is noted. CONCLUSION: Old infarcts and extensive white matter disease. Marked atrophy without mass effect. Negative for a cute ischemic event Galen Beal MD FACR on May 19, 2017 at 8:51 Board Certified Radiologist. This report was verified electronically.
[2017-05-19] MEDS: ASPIRIN EC 81 MG TABEC PO SCH (09:00)
[2017-05-19] MEDS ORDERED: MULTIPLE VITAMINS PO SCH (09:00)
[2017-05-19] MEDS ORDERED: MINERALS PO SCH (09:00)
[2017-05-19] MEDS: ARTIFICIAL TEARS OPTH SOLN 15 ML BTL EACH EYE SCH ×3 (09:00→17:16)
[2017-05-19 10:24] LABS: ALBUMIN 2.6 GM/DL (3.4-5.0); ALKALINE PHOSPHATASE 89 U/L (45-117); ALT (GPT) 19 U/L (12-78); AST (GOT) 25 U/L (15-37); BICARBONATE 25.4 MEQ/L (21.0-32.0); BLOOD UREA NITROGEN 28 MG/DL (7-18); CALCIUM 8.4 MG/DL (8.5-10.1); CHLORIDE 106 MEQ/L (98-107); CREATININE 1.77 MG/DL (0.60-1.30); GLOMERULAR FILTRATION RATE 40 ML/MIN (>89); GLUCOSE,RANDOM 153 MG/DL (74-106); MAGNESIUM 1.9 MG/DL (1.5-2.5); PHENYTOIN (DILANTIN) 22.7 MCG/ML (10.0-20.0); PHOSPHORUS 2.7 MG/DL (2.5-4.9); SODIUM (NA) 139 MEQ/L (136-145); TOTAL BILIRUBIN ADULT 0.3 MG/DL (0.2-1.0); TOTAL PROTEIN 6.1 GM/DL (6.4-8.2)
[2017-05-19] MEDS: SODIUM CHLORIDE 0.9% FLUSH 10 ML FLUSH IV FLUSH SCH ×3 (10:35→21:00)
[2017-05-19] MEDS: DOCUSATE SODIUM 50 MG/SENNA 8.6 MG TAB PO SCH ×2 (10:35→21:43)
[2017-05-19] MEDS: MULTIVITAMINS/MINERALS THERAPEUTIC TAB PO SCH (10:35)
[2017-05-19] MEDS: ASCORBIC ACID 500 MG TAB PO SCH ×2 (10:35→21:43)
[2017-05-19] MEDS: CARVEDILOL 3.125 MG TAB PO SCH ×2 (10:36→21:43)
[2017-05-19] MEDS: CHLORHEXIDINE 0.12% (ORAL KIT) 15 ML CUP MT SCH ×2 (10:37→20:00)
[2017-05-19] MEDS: LABETALOL HCL 100 MG/20 ML VIAL IV PUSH PRN (10:40)
--- NOTE | 2017-05-19 10:40 | HHI.CCPN ---
Subjective Remarks/Hospital Course 57-year-old male. Date of admission 05/18/2017. 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 Today, he presents to [facility] ED from the group home with complaints of altered mental status and reported fever. According to documentation from ED visit, the paramedics documented that the group homeadult family home program manager stated that they found him slumped over the bed. They reported that he had decreased mental status. They also reported a fever of 103. When paramedics arrived, they found him to be with normal temperature. He did appear altered and somewhat aggressive. There is no other further history elicited. Patient had a white blood cell count of 18,000. Potassium 2.5. Elevated troponin 0 0.24. EKG currently pending. CT brain revealed subtle increased right frontal parietal temporal changes with ex vacuo dilatation of the ventricles. Right maxillary sinusitis. Patient had a witnessed seizure in the ED was given 1 g of fosphenytoin and 2 mg of midazolam. He is also received 1.5 L normal saline and is placed on potassium protocol for potassium 2.5. Magnesium is currently pending. Subjective 05/19: Afebrile. MRI brain revealed old right MCA CVA with scattered white matter changes. No acute infarct. EEG pending. Hemodynamically stable. Potassium actively being replaced. A.m. laboratories currently pending. Objective Vital Signs Date Time Temp Pulse Resp B/P (MAP) Pulse Ox O2 Delivery O2 Flow Rate FiO2 05/19/17 09:03 100 35 05/19/17 06:00 69 05/18/17 16:59 Nasal Cannula 2.00 05/18/17 13:09 98.0 17 202/115 (144) Intake and Output 05/19/17 05/19/17 05/20/17 08:00 16:00 00:00 Intake Total 400 ml Output Total 200 ml Balance 200 ml Result Diagram: 05/19/17 0600 05/18/172002 Other Results Microbiology Date/Time Source Procedure Growth Status 05/18/17 12:45 Blood Peripheral Aerobic Blood Culture Pending Received 05/18/17 12:45 Blood Peripheral Anaerobic Blood Culture Pending Received Imaging Last Impressions Brain MRI 05/19/17 0000 Signed Impressions: Service Date/Time: Friday, May 19, 2017 08:27 - CONCLUSION: Old infarcts and extensive white matter disease. Marked atrophy without mass effect. Negative for acute ischemic event Galen Beal MD FACR Chest X-Ray 05/18/17 1854 Signed Impressions: Service Date/Time: Thursday, May 18, 2017 19:03 - CONCLUSION: 1. Support apparatus in good position. Right upper lobe scarring and pleural thickening with partial lung resection. Underlying emphysema. No pneumothorax. Delta Anderson MD Head CT 05/18/17 1218 Signed Impressions: Service Date/Time: Thursday, May 18, 2017 14:10 - CONCLUSION: 1. Although chronic appearing, there is interval worsening in the encephalomalacia changes in the right frontoparietal region as detailed above. Exvacuo dilatation of the adjacent ventricular system. 2. Nothing acute. 3. Severe chronic sinusitis the right maxillary antrum. Michael Cruz MD Objective Remarks GENERAL: 57-year-old male currently orotracheally intubated SKIN: Warm and dry. Dry necrotic ulcer to left kam/heel noted. HEAD: Atraumatic. Normocephalic. EYES: Pupils equal and round. No scleral icterus. No injection or drainage. ENT: No nasal bleeding or discharge. Mucous membranes pink and moist. NECK: Trachea midline. No JVD. CARDIOVASCULAR: Regular rate and rhythm. S1, S2. No S4. Without murmur RESPIRATORY: No accessory muscle use. Clear to auscultation. Breath sounds equal bilaterally. GASTROINTESTINAL: Abdomen soft, non-tender, scaphoid. Positive bowel sounds appreciated MUSCULOSKELETAL: Left upper lower extremity contracted. See skin for left kam/ heel ulcer/multiple NEUROLOGICAL: Withdraws to pain. GCS around 9. E2V1M5. Freely moving up her and lower extremity right side but not to command. Urinary Catheter: Yes Assessment to: Continue Millard insert reason: ICU Pt Getting Diuretics Vascular Central Line Catheter: Yes Assessment to: Continue Date of Insertion: May 18, 2017 Line: Central Venous Catheter Side: Right Location: Internal, Jugular A/P Assessment and Plan Neuro/Psych: Seizure History of right frontal parietal CVA with left-sided weakness History of right ICA occlusion Prior history of alcoholism Depression NOS Chronic opioid use Propofol drip at 50 mg/kg which remained sedation while intubated Goal of RA SS -2 CT brain revealed right frontoparietal temporal changes with ex vacuo dilatation. Right maxillary sinusitis MRI brain 05/19 revealed right MCA CVA with scattered white matter changes. No new infarct Received 1 g fosphenytoin in ED. 2 mg of lorazepam. Seizure precautions EEG ordered Start on phenytoin 100 mg IV every 8 hours Recheck levels in a.m. CV: Chronic systolic heart failure ejection fraction 35-40% Hypertension Hyperlipidemia Peripheral vascular occlusive disease Elevated troponin Echocardiogram 07/22 revealed EF 35-40%. LVH. Septal hypokinesis. Pulmonary arterial pressures 23 mmHg Repeat echocardiogram pending Continue carvedilol 3.125 mg twice daily. Increase to 6.25 twice daily As needed labetalol/hydralazine/Nitropaste for hypertension Currently on atorvastatin 20 mg by mouth daily Coumadin aspirin 81 mg p.o. daily Received 1.5 L normal saline in ED. Currently not on diuretics Patient previously refused amputation to left lower extremity per Dr. Dasilva 02/22 Cycle troponins currently with downward trend Resp: Acute respiratory insufficiency History of tobaccoism/COPD [facility] 15/450/02/09/34 Albuterol/ipratropium aerosols every 6 hours with albuterol aerosols every 2 hours as needed dyspnea Chest x-ray revealed emphysematous changes. No focal infiltrate Repeat chest x-ray in a.m. GI: History of esophagitis Gastroesophageal reflux disease Patient is currently n.p.o. Start vital 1.5 goal 40 cc an hour bit of protein 2 packets 3 times daily Famotidine for GI prophylaxis Docusate sodium/senna 1 tablet twice daily for bowel regimen : Millard catheter if indicated for accurate I's and O's in a critically ill patient Endo: Sliding scale insulin Accu-Cheks to maintain euglycemia/low regimen every 6 hours Renal: Chronic kidney disease stage III a Currently normal saline at 84 cc an hour Creatinine currently 1.8 Check urine electrolytes and eosinophils/renal ultrasound Monitor urine output Accurate I's and O's Repeat BMP in a.m. Heme: Leukocytosis Thrombocytosis Currently on ferrous sulfate 325 mg p.o. twice daily Follow-up on coags Does not meet transfusion threshold at this time Monitor CBC daily. Follow trends ID: Blood cultures 2, sputum and urine ordered Monitor for infection FEN: Hypokalemia Replace in ED. Recheck at 1600 hrs. Replace electrolytes as clinically indicated per electrolyte protocol MSK: Osteoporosis/osteoarthritis Left heel ulcer Physical therapy evaluate and treat. Wound care evaluate left lower extremity. Access -Utilize peripheral IV. Central and if indicated Prophylaxis -GI -famotidine -DVT -SCD/heparin subcu Critical Care: The total critical care time was 35 minutes. Time to perform other separately billable procedures was not included in the critical care time. Bo Grant MD May 19, 2017 10:40
[2017-05-19] MEDS ORDERED: CALCIUM GLUCONATE 10% 1 GM/10 ML VIAL SLOW IVP ONE (10:45)
[2017-05-19] MEDS ORDERED: SODIUM POLYSTYRENE SULFONATE SUSP 15 GM/60 ML CUP PO ONE (10:45)
[2017-05-19] MEDS ORDERED: DEXTROSE 50% IN WATER 50 ML VIAL(D50) IV PUSH ONE (10:45)
[2017-05-19] MEDS ORDERED: INSULIN HUMAN REGULAR 1,000 UNITS/10 ML VIAL IV PUSH ONE (11:00)
[2017-05-19] MEDS: hydrALAZINE HCL 20 MG/ML VIAL IV PUSH PRN ×3 (11:35→23:08)
[2017-05-19] MEDS: DEXTROSE 50% IN WATER 50 ML VIAL(D50) IV PUSH PRN ×2 (11:55→17:15)
[2017-05-19] MEDS: BENEPROTEIN POWDER 1 PACK G-TUBE SCH ×2 (13:00→17:16)
[2017-05-19] MEDS ORDERED: SODIUM CHLOR 0.9% 1000 ML INJ 1,000 ML IV ONE (13:15)
[2017-05-19] MEDS: PROPOFOL 1000 MG/100 ML INJ 100 ML IV PRN (13:28)
--- NOTE | 2017-05-19 15:12 | RADRPT ---
EXAM DATE/TIME: 05/19/2017 14:07 [facility] COMPARISON: No previous studies available for comparison. INDICATIONS : Increased BUN/creatinine. MEDICAL HISTORY : Hypercholesterolemia. Arthritis. Osteoarthritis. CVA. HTN. COPD. Anemia. Depression. Anxiety. Tobacco use. Anticoagulant therapy, Heparin. SURGICAL HISTORY : Right retina surgery. Right ankle surgery with screws and plates. Blood transfusions. ENCOUNTER: Initial ACUITY: 1 day PAIN SCORE: Nonresponsive. LOCATION: Bilateral flank MEASUREMENTS: RIGHT KIDNEY: 5.7 x 3.4 x 2.1 cm LEFT KIDNEY: 9.6 x 5.7 x 5.5 cm FINDINGS: RIGHT KIDNEY: Atrophic without hydronephrosis. LEFT KIDNEY: Renal cortex is normal in thickness and echotexture. No hydronephrosis, stone, or mass. BLADDER: Millard catheter present. CONCLUSION: Atrophic right kidney. Left kidney is unremarkable. Millard catheter in place. Lacho Morel MD on May 19, 2017 at 15:07 Board Certified Radiologist. This report was verified electronically.
[2017-05-19 16:22] LABS: BILIRUBIN, URINE NEG (NEG); BLOOD, URINE SMALL (NEG); GLUCOSE,URINE 150 mg/dL (NEG); HYALINE CAST, URINE 2 /lpf (RARE); KETONE, URINE NEG (NEG); MUCUS URINE FEW /lpf (OCC); NITRITE,URINE NEG (NEG); PH, URINE 6.5 (5.0-8.5); URINE COLOR LIGHT-YELLOW (YELLW/STRAW); URINE LEUKOCYTE ESTERASE NEG (NEG)
--- NOTE | 2017-05-19 16:26 | ECHRPT ---
Indication: EF assessment of CHF CONCLUSIONS Normal left ventricular size. Mild concentric left ventricular hypertrophy. The left ventricular systolic function is moderately reduced with an estimated ejection fraction in the range of 40-45%. There is trace tricuspid valve regurgitation. The estimated pulmonary arterial pressure is 39.2 mmHg. BP: 125 / 77 HR: Rhythm: Sinus MEASUREMENTS (Male / Female) Normal Values Technical Quality:Fair 2D ECHO LV Diastolic Diameter PLAX 3.9 cm 4.2 - 5.9 / 3.9 - 5.3 cm LV Systolic Diameter PLAX 3.3 cm IVS Diastolic Thickness 1.3 cm 0.6 - 1.0 / 0.6 - 0.9 cm LVPW Diastolic Thickness 1.3 cm 0.6 - 1.0 / 0.6 - 0.9 cm LV Relative Wall Thickness 0.7 RV Internal Dim ED PLAX 1.6 cm DOPPLER AV Peak Velocity 135.0 cm/s AV Peak Gradient 7.3 mmHg AV Mean Gradient 3.0 mmHg AV Velocity Time Integral 21.6 cm LVOT Peak Velocity 105.0 cm/s LVOT Peak Gradient 4.4 mmHg LVOT Velocity Time Integral 16.5 cm Mitral E Point Velocity 62.2 cm/s Mitral A Point Velocity 96.3 cm/s Mitral E to A Ratio 0.6 LV E' Lateral Velocity 3.5 cm/s Mitral E to LV E' Lateral Ratio 17.7 LV E' Septal Velocity 3.0 cm/s Mitral E to LV E' Septal Ratio 20.6 TR Peak Velocity 270.0 cm/s TR Peak Gradient 29.2 mmHg Right Atrial Pressure 10.0 mmHg Pulmonary Artery Systolic Pressu 39.2 mmHg Right Ventricular Systolic Press 39.2 mmHg FINDINGS LEFT VENTRICLE Normal left ventricular size. Mild concentric left ventricular hypertrophy. The left ventricular systolic function is moderately reduced with an estimated ejection fraction in the range of 40-45%. RIGHT VENTRICLE Normal right ventricular size and systolic function. TRICUSPID VALVE There is trace tricuspid valve regurgitation. The estimated pulmonary arterial pressure is 39.2 mmHg. Mayela Hill MD, FACC (Electronically Signed) Final Date:19 May 2017 16:25
[2017-05-19 16:28] LABS: CREATININE, RANDOM URINE LESS THAN 5.0 MG/DL; SODIUM,RANDOM URINE 103 MEQ/L
--- NOTE | 2017-05-19 17:00 | EKG ---
Date Performed: 05/18/2017 Time Performed: 13:32:27 PTAGE: 57 years EKG: SINUS TACHYCARDIA WITH SHORT MO INTERVAL MARKED ST DEPRESSION, CONSIDER SUBENDOCARDIAL INJ URY ABNORMAL ECG Baseline artifact Compared to PREVIOUS TRACING , the patient is now tachycardic and the ST depression is a little more pronounced. PREVIOUS TRACIN02/15/2017 21.29 DOCTOR: Mayela Hill Interpretating Date/Time 05/19/2017 16:58:56
[2017-05-19] MEDS: DEXT 5%-NACL 0.9% 1000 ML INJ 1,000 ML IV SCH (17:56)
[2017-05-19] MEDS: ATORVASTATIN 20 MG TAB PO SCH (21:00)
[2017-05-19] MEDS: ACETAMINOPHEN 325 MG TAB PO PRN (21:43)
[2017-05-19] MEDS: FAMOTIDINE 40 MG/5 ML LIQ 50 ML BTL NG SCH (21:43)
[2017-05-19] MEDS: MIRTAZAPINE ODT 15 MG TAB PO SCH (21:59)
[2017-05-20] VITALS (16 sets, daily range): BP systolic 131–157; BP diastolic 65–97; PULSE 76–94; RESP 18–25; TEMP 98.1–100.4; O2SAT 97–100
[2017-05-20] MEDS: RESP: ALBUTEROL 2.5 MG/IPRATROPIUM 0.5 MG NEB (SCH) INH ×4 (03:39→20:02)
[2017-05-20] MEDS: CHLORHEXIDINE GLUCONATE 2 % 1 PACK (2 CLOTHS) TOP SCH (04:00)
[2017-05-20] MEDS: DEXT 5%-NACL 0.9% 1000 ML INJ 1,000 ML IV SCH ×3 (04:00→23:45)
[2017-05-20 05:09] LABS: ALBUMIN 2.1 GM/DL (3.4-5.0); AST (GOT) 22 U/L (15-37); BLOOD UREA NITROGEN 26 MG/DL (7-18); CALCIUM 7.7 MG/DL (8.5-10.1); CHLORIDE 112 MEQ/L (98-107); CREATININE 1.32 MG/DL (0.60-1.30); GLOMERULAR FILTRATION RATE 56 ML/MIN (>89); GLUCOSE,RANDOM 198 MG/DL (74-106); MAGNESIUM 1.8 MG/DL (1.5-2.5); SODIUM (NA) 144 MEQ/L (136-145)
[2017-05-20 05:12] LABS: ALKALINE PHOSPHATASE 78 U/L (45-117); ALT (GPT) 20 U/L (12-78); PHENYTOIN (DILANTIN) 14.5 MCG/ML (10.0-20.0); TOTAL BILIRUBIN ADULT 0.2 MG/DL (0.2-1.0); TOTAL PROTEIN 5.4 GM/DL (6.4-8.2)
--- NOTE | 2017-05-20 05:12 | RADRPT ---
EXAM DATE/TIME: 05/20/2017 03:48 [facility] COMPARISON: CHEST SINGLE AP, May 18, 2017, 19:03. INDICATIONS : Shortness of breath, possible pulmonary disease. MEDICAL HISTORY : Hypertension. Chronic obstructive pulmonary disease. CVA SURGICAL HISTORY : None. ENCOUNTER: Subsequent ACUITY: 3 days PAIN SCORE: Non-responsive. LOCATION: Bilateral chest FINDINGS: The cardiac silhouette is normal in transverse diameter. The lungs are hyperinflated. Biapical pleura l thickening is present. There is new left perihilar edema versus pneumonia. No pleural effusions are identified. CONCLUSION: Left Perihilar edema versus pneumonia. This is new when compared with the prior exam. Josiah Membreno MD on May 20, 2017 at 5:10 Board Certified Radiologist. This report was verified electronically.
[2017-05-20] MEDS: HEPARIN SODIUM - SQ 10,000 UNITS/ML VIAL SQ SCH ×2 (05:14→16:50)
[2017-05-20] MEDS: INSULIN NovoLIN REGULAR SUPPLEMENTAL SCALE SQ SCH ×4 (05:17→16:52)
[2017-05-20 05:20] LABS: BASOPHIL % 0.2 % (0.0-2.0); HEMOGLOBIN 9.6 GM/DL (13.0-17.0); LYMPH % 4.6 % (9.0-44.0); LYMPHOCYTE # 0.9 TH/MM3 (1.0-4.8); MEAN CELL VOLUME 90.1 FL (80.0-100.0); MEAN CORPUSCULAR HEMOGLOBIN 29.8 PG (27.0-34.0); MEAN CORPUSCULAR HGB CONC 33.1 % (32.0-36.0); MEAN PLATELET VOLUME 7.8 FL (7.0-11.0); MONO % 3.1 % (0.0-8.0); MONOCYTE # 0.6 TH/MM3 (0-0.9); NEUT % 92.1 % (16.0-70.0); PLATELET COUNT 278 TH/MM3 (150-450); RED BLOOD COUNT 3.22 MIL/MM3 (4.50-5.90); RED CELL DISTRIBUTION WIDTH 15.3 % (11.6-17.2); WHITE BLOOD COUNT 20.6 TH/MM3 (4.0-11.0)
[2017-05-20] MEDS: ACETAMINOPHEN 325 MG TAB PO PRN (05:47)
[2017-05-20] MEDS: FOSPHENYTOIN SODIUM 100 MG PE/2 ML VIAL IV SCH ×3 (05:48→22:06)
[2017-05-20] MEDS: ASCORBIC ACID 500 MG TAB PO SCH ×2 (07:44→22:07)
[2017-05-20] MEDS: ASPIRIN EC 81 MG TABEC PO SCH (07:44)
[2017-05-20] MEDS: DOCUSATE SODIUM 50 MG/SENNA 8.6 MG TAB PO SCH ×2 (07:44→22:06)
[2017-05-20] MEDS: PROPOFOL 1000 MG/100 ML INJ 100 ML IV PRN ×2 (07:44→23:13)
[2017-05-20] MEDS: CARVEDILOL 3.125 MG TAB PO SCH ×2 (07:45→22:07)
[2017-05-20] MEDS: FAMOTIDINE 40 MG/5 ML LIQ 50 ML BTL NG SCH ×2 (07:45→22:08)
[2017-05-20] MEDS: ARTIFICIAL TEARS OPTH SOLN 15 ML BTL EACH EYE SCH ×3 (07:46→16:51)
[2017-05-20] MEDS: CHLORHEXIDINE 0.12% (ORAL KIT) 15 ML CUP MT SCH ×2 (07:47→20:00)
[2017-05-20] MEDS: MULTIVITAMINS/MINERALS THERAPEUTIC TAB PO SCH (07:49)
[2017-05-20] MEDS: BENEPROTEIN POWDER 1 PACK G-TUBE SCH ×3 (07:50→16:51)
[2017-05-20] MEDS: SODIUM CHLORIDE 0.9% FLUSH 10 ML FLUSH IV FLUSH SCH ×3 (07:50→22:16)
[2017-05-20] MEDS ORDERED: Vancomycin Consult Pharmacy 1 EA OTHER SCH (19:15)
--- NOTE | 2017-05-20 19:15 | HHI.CCPN ---
Subjective Remarks/Hospital Course 57-year-old male. Date of admission 05/18/2017. 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 Today, he presents to [facility] ED from the group home with complaints of altered mental status and reported fever. According to documentation from ED visit, the paramedics documented that the group homehome energy auditor stated that they found him slumped over the bed. They reported that he had decreased mental status. They also reported a fever of 103. When paramedics arrived, they found him to be with normal temperature. He did appear altered and somewhat aggressive. There is no other further history elicited. Patient had a white blood cell count of 18,000. Potassium 2.5. Elevated troponin 0 0.24. EKG currently pending. CT brain revealed subtle increased right frontal parietal temporal changes with ex vacuo dilatation of the ventricles. Right maxillary sinusitis. Patient had a witnessed seizure in the ED was given 1 g of fosphenytoin and 2 mg of midazolam. He is also received 1.5 L normal saline and is placed on potassium protocol for potassium 2.5. Magnesium is currently pending. Subjective 05/19: Afebrile. MRI brain revealed old right MCA CVA with scattered white matter changes. No acute infarct. EEG pending. Hemodynamically stable. Potassium actively being replaced. A.m. laboratories currently pending. 05/20: Late entry note.Afebrile. No acute events overnight. Noted WBC increased. Sputum culture pending. ID consulted. Objective Vital Signs Date Time Temp Pulse Resp B/P (MAP) Pulse Ox O2 Delivery O2 Flow Rate FiO2 05/20/17 18:00 91 05/20/17 16:17 98 35 05/20/17 16:00 143/68 (93) 05/20/17 07:23 16 05/18/17 16:59 Nasal Cannula 2.00 05/18/17 13:09 98.0 Intake and Output 05/20/17 05/20/17 05/21/17 08:00 16:00 00:00 Intake Total 1150 ml 260 ml 1631.2 ml Output Total 550 ml 375 ml Balance 600 ml 260 ml 1256.2 ml Result Diagram: 05/20/17 0430 05/20/17 0430 Imaging Last Impressions Chest X-Ray 05/20/17 0600 Signed Impressions: Service Date/Time: Saturday, May 20, 2017 03:48 - CONCLUSION: Left Perihilar edema versus pneumonia. This is new when compared with the prior exam. Josiah Membreno MD Renal Ultrasound 05/19/17 0000 Signed Impressions: Service Date/Time: Friday, May 19, 2017 14:07 - CONCLUSION: Atrophic right kidney. Left kidney is unremarkable. Millard catheter in place. Lacho Morel MD Brain MRI 05/19/17 0000 Signed Impressions: Service Date/Time: Friday, May 19, 2017 08:27 - CONCLUSION: Old infarcts and extensive white matter disease. Marked atrophy without mass effect. Negative for acute ischemic event Galen Beal MD FACR Head CT 05/18/17 1218 Signed Impressions: Service Date/Time: Thursday, May 18, 2017 14:10 - CONCLUSION: 1. Although chronic appearing, there is interval worsening in the encephalomalacia changes in the right frontoparietal region as detailed above. Exvacuo dilatation of the adjacent ventricular system. 2. Nothing acute. 3. Severe chronic sinusitis the right maxillary antrum. Michael Cruz MD Last Impressions Brain MRI 05/19/17 0000 Signed Impressions: Service Date/Time: Friday, May 19, 2017 08:27 - CONCLUSION: Old infarcts and extensive white matter disease. Marked atrophy without mass effect. Negative for acute ischemic event Galen Beal MD FACR Chest X-Ray 05/18/17 1854 Signed Impressions: Service Date/Time: Thursday, May 18, 2017 19:03 - CONCLUSION: 1. Support apparatus in good position. Right upper lobe scarring and pleural thickening with partial lung resection. Underlying emphysema. No pneumothorax. Delta Anderson MD Head CT 05/18/17 1218 Signed Impressions: Service Date/Time: Thursday, May 18, 2017 14:10 - CONCLUSION: 1. Although chronic appearing, there is interval worsening in the encephalomalacia changes in the right frontoparietal region as detailed above. Exvacuo dilatation of the adjacent ventricular system. 2. Nothing acute. 3. Severe chronic sinusitis the right maxillary antrum. Michael Cruz MD Objective Remarks GENERAL: 57-year-old male currently orotracheally intubated SKIN: Warm and dry. Dry necrotic ulcer to left kam/heel noted. HEAD: Atraumatic. Normocephalic. EYES: Pupils equal and round. No scleral icterus. No injection or drainage. ENT: No nasal bleeding or discharge. Mucous membranes pink and moist. NECK: Trachea midline. No JVD. CARDIOVASCULAR: Regular rate and rhythm. S1, S2. No S4. Without murmur RESPIRATORY: No accessory muscle use. Clear to auscultation. Breath sounds equal bilaterally. GASTROINTESTINAL: Abdomen soft, non-tender, scaphoid. Positive bowel sounds appreciated MUSCULOSKELETAL: Left upper lower extremity contracted. See skin for left kam/ heel ulcer/multiple NEUROLOGICAL: Withdraws to pain. GCS around 9. E2V1M5. Freely moving up her and lower extremity right side but not to command. Date of Insertion: May 18, 2017 Line: Central Venous Catheter Side: Right Location: Internal, Jugular A/P Assessment and Plan Neuro/Psych: Seizure History of right frontal parietal CVA with left-sided weakness History of right ICA occlusion Prior history of alcoholism Depression NOS Chronic opioid use Propofol drip at 50 mg/kg which remained sedation while intubated Goal of RASS -2 CT brain revealed right frontoparietal temporal changes with ex vacuo dilatation. Right maxillary sinusitis MRI brain 05/19 revealed right MCA CVA with scattered white matter changes. No new infarct Received 1 g fosphenytoin in ED. 2 mg of lorazepam. Seizure precautions EEG ordered Start on phenytoin 100 mg IV every 8 hours Dilantin level 14.5 CV: Chronic systolic heart failure ejection fraction 35-40% Hypertension Hyperlipidemia Peripheral vascular occlusive disease Elevated troponin Echocardiogram 07/22 revealed EF 35-40%. LVH. Septal hypokinesis. Pulmonary arterial pressures 23 mmHg 05/19Repeat echocardiogram- EF 40-45%.Trace TR , PAP 39 Continue carvedilol 3.125 mg twice daily. Increased to 6.25 twice daily As needed labetalol/hydralazine/Nitropaste for hypertension Currently on atorvastatin 20 mg by mouth daily Coumadin aspirin 81 mg p.o. daily Received 1.5 L normal saline in ED. Currently not on diuretics Patient previously refused amputation to left lower extremity per Dr. Dasilva 02/22 Cycle troponins currently with downward trend Resp: Acute respiratory insufficiency History of tobaccoism/COPD [facility] 15/450///35 Albuterol/ipratropium aerosols every 6 hours with albuterol aerosols every 2 hours as needed dyspnea Chest x-ray revealed emphysematous changes. No focal infiltrate 05/20 chest x-ray -perihilar edema versus pneumonia GI: History of esophagitis Gastroesophageal reflux disease Patient is currently n.p.o. Start vital 1.5 goal 40 cc an hour bit of protein 2 packets 3 times daily Famotidine for GI prophylaxis Docusate sodium/senna 1 tablet twice daily for bowel regimen : Millard catheter if indicated for accurate I's and O's in a critically ill patient Endo: Sliding scale insulin Accu-Cheks to maintain euglycemia/low regimen every 6 hours Renal: Chronic kidney disease stage III a Currently normal saline at 84 cc an hour Creatinine currently 1.8 Check urine electrolytes and eosinophils/renal ultrasound Monitor urine output Accurate I's and O's Monitor BMP Heme: Leukocytosis Thrombocytosis Currently on ferrous sulfate 325 mg p.o. twice daily Follow-up on coags Does not meet transfusion threshold at this time Monitor CBC daily. Follow trends ID: Blood cultures 2, sputum and urine ordered Monitor for infection FEN: Hypokalemia Replace electrolytes as clinically indicated per electrolyte protocol MSK: Osteoporosis/osteoarthritis Left heel ulcer Physical therapy evaluate and treat. Wound care evaluate left lower extremity. Access -Utilize peripheral IV. Central and if indicated Prophylaxis -GI -famotidine -DVT -SCD/heparin subcu Critical Care: my billing statement This patient remains critically ill with one or more organ systems which are or may become a threat to life. I have spent in excess of 30 minutes discontinuously in the care and management of this patient. This time is exclusive of procedures, and includes, but is not limited to, evaluation of the patient, review of the medical record, discussions with family, consultants, nursing staff, or respiratory therapy, and documentation in the medical record. Physician Britney Jung MD May 20, 2017 19:15
[2017-05-20 19:16] LABS: PHOSPHORUS 2.6 MG/DL (2.5-4.9)
[2017-05-20] MEDS ORDERED: AZITHROMYCIN INJ 250 MG in SODIUM CHLOR 0.9% 250 ML INJ 250 ML IV SCH (21:00)
[2017-05-20] MEDS: ATORVASTATIN 20 MG TAB PO SCH (22:07)
[2017-05-20] MEDS: MIRTAZAPINE ODT 15 MG TAB PO SCH (22:07)
[2017-05-20] MEDS: CEFEPIME INJ 2,000 MG in SODIUM CHLORIDE 0.9% INJ 100 ML IV SCH (22:16)
[2017-05-20] MEDS: AZITHROMYCIN INJ 250 MG in SODIUM CHLOR 0.9% 250 ML INJ 250 ML IV SCH (23:00)
[2017-05-20] MEDS ORDERED: VANCOMYCIN 1,000 MG/NS 250 ML IV ONE ×2 (23:00)
[2017-05-21] VITALS (16 sets, daily range): BP systolic 110–187; BP diastolic 62–86; PULSE 69–92; RESP 15–25; TEMP 98–100.6; O2SAT 97–100
[2017-05-21] MEDS: hydrALAZINE HCL 20 MG/ML VIAL IV PUSH PRN (02:02)
[2017-05-21 03:40] LABS: ALBUMIN 1.9 GM/DL (3.4-5.0); ALKALINE PHOSPHATASE 76 U/L (45-117); ALT (GPT) 26 U/L (12-78); AST (GOT) 30 U/L (15-37); BICARBONATE 24.5 MEQ/L (21.0-32.0); BLOOD UREA NITROGEN 22 MG/DL (7-18); CALCIUM 7.5 MG/DL (8.5-10.1); CHLORIDE 116 MEQ/L (98-107); GLOMERULAR FILTRATION RATE 77 ML/MIN (>89); GLUCOSE,RANDOM 112 MG/DL (74-106); MAGNESIUM 1.9 MG/DL (1.5-2.5); PHOSPHORUS 1.9 MG/DL (2.5-4.9); SODIUM (NA) 147 MEQ/L (136-145); TOTAL BILIRUBIN ADULT 0.2 MG/DL (0.2-1.0); TOTAL PROTEIN 5.5 GM/DL (6.4-8.2)
[2017-05-21] MEDS: RESP: ALBUTEROL 2.5 MG/IPRATROPIUM 0.5 MG NEB (SCH) INH ×4 (03:49→21:15)
[2017-05-21] MEDS: CHLORHEXIDINE GLUCONATE 2 % 1 PACK (2 CLOTHS) TOP SCH (04:00)
[2017-05-21] MEDS: HEPARIN SODIUM - SQ 10,000 UNITS/ML VIAL SQ SCH ×2 (04:50→16:36)
[2017-05-21] MEDS: POTASSIUM CHLOR 20 MEQ PREMIX 100 ML IV PRN ×4 (04:50→12:26)
[2017-05-21] MEDS: CEFEPIME INJ 2,000 MG in SODIUM CHLORIDE 0.9% INJ 100 ML IV SCH ×3 (04:50→20:41)
[2017-05-21] MEDS: FOSPHENYTOIN SODIUM 100 MG PE/2 ML VIAL IV SCH ×3 (04:51→20:40)
--- NOTE | 2017-05-21 04:57 | RADRPT ---
EXAM DATE/TIME: 05/21/2017 03:32 [facility] COMPARISON: CHEST SINGLE AP, May 18, 2017, 19:03. INDICATIONS : Shortness of breath, possible pulmonary disease. MEDICAL HISTORY : Hypertension. Chronic obstructive pulmonary disease. CVA SURGICAL HISTORY : None. ENCOUNTER: Subsequent ACUITY: 4 - 6 days PAIN SCORE: Non-responsive. LOCATION: Bilateral chest FINDINGS: Mild perihilar infiltrates are developing, left more so than right. No large effusion. No pneumothora x. Chronic scarring at the right apex again seen post surgery. Heart size stable, within normal limits. Endotracheal tube tip is approximately 5 cm above the ruben. Nasogastric tube has its tip in the dis lisset stomach. There is a right internal jugular central venous catheter with tip in the superior vena cava. CONCLUSION: Mild lateral perihilar infiltrates are developing. Lacho Shi MD on May 21, 2017 at 4:54 Board Certified Radiologist. This report was verified electronically.
[2017-05-21 05:09] LABS: AUTOMATED NEUTROPHIL # 15.3 TH/MM3 (1.8-7.7); BASOPHIL % 0.3 % (0.0-2.0); EOSINOPHIL % 0.2 % (0.0-4.0); HEMATOCRIT 28.2 % (39.0-51.0); HEMOGLOBIN 9.2 GM/DL (13.0-17.0); LYMPHOCYTE # 0.8 TH/MM3 (1.0-4.8); MEAN CELL VOLUME 90.5 FL (80.0-100.0); MEAN CORPUSCULAR HEMOGLOBIN 29.7 PG (27.0-34.0); MEAN CORPUSCULAR HGB CONC 32.8 % (32.0-36.0); MEAN PLATELET VOLUME 8.6 FL (7.0-11.0); MONO % 3.4 % (0.0-8.0); MONOCYTE # 0.6 TH/MM3 (0-0.9); NEUT % 91.1 % (16.0-70.0); PLATELET COUNT 225 TH/MM3 (150-450); RED BLOOD COUNT 3.11 MIL/MM3 (4.50-5.90); WHITE BLOOD COUNT 16.8 TH/MM3 (4.0-11.0)
[2017-05-21] MEDS: INSULIN NovoLIN REGULAR SUPPLEMENTAL SCALE SQ SCH ×5 (05:11→23:37)
[2017-05-21] MEDS: PROPOFOL 1000 MG/100 ML INJ 100 ML IV PRN ×2 (08:22→20:39)
[2017-05-21] MEDS: DOCUSATE SODIUM 50 MG/SENNA 8.6 MG TAB PO SCH ×2 (09:00→20:41)
[2017-05-21] MEDS: BENEPROTEIN POWDER 1 PACK G-TUBE SCH ×3 (09:00→18:18)
--- NOTE | 2017-05-21 09:29 | MG ---
cc: Guilherme Morocho MD EEG RECORD #[id number] History of possible seizure, mental status changes. Significant myogenic artifact, electrical artifact occurring throughout the channels off and on during the recording. Background rhythm that shows 1-3 Hz activity, 5-20 microvolts. Single lead EKG showing artifact. INTERPRETATION: Significant artifact occurring throughout the recording. Interpretable EEG. It showed underlying moderate level of encephalopathy. Repeat EEG if clinically indicated. Guilherme Morocho MD MG/TL , 08:15 AM , 08:34 AM
--- NOTE | 2017-05-21 09:35 | PD.CONS ---
History of Present Illness Service Infectious disease Consult Requested By Dr. Avilez Reason for Consult Evaluate patient with fever and leukocytosis Primary Care Physician Moreno Clark MD Diagnoses: History of Present Illness Patient seen and examined. Records reviewed. Patient is a 57-year-old male, correction resident, has had prior CVA with left-sided weakness, brought into the hospital for evaluation of altered mental status and fever. EMS was called, and apparently from the correction that tendon that found him said that he was slumped over the bed. There was fever of up to 103. When the paramedics came he was afebrile. He was apparently somewhat aggressive. There was no other history available. His initial WBC was 18,000. His CT of the head showed the evidence of previous CVA, and he had some maxillary sinusitis. He apparently had a witnessed seizure in the ED. Patient ended up getting intubated, and had a central line put in in his right IJ. His hemodynamics are currently stable. He is not on pressors. His WBC remained persistently elevated. He had some low-grade fevers overnight. Blood cultures on admission are negative so far. Urinalysis is unremarkable. Flaherty catheter was placed 05/19. Influenza testing is negative. Sputum culture is pending. Patient currently is on vancomycin, cefepime, and Zithromax. Infectious disease consultation has been requested to evaluate the patient for fevers and leukocytosis. Review of Systems ROS Limitations: Clinical Condition, Intubated Constitutional: COMPLAINS OF: Fever Past Family Social History Allergies: Coded Allergies: No Known Allergies (Verified Allergy, Unknown, 02/08/17) Past Medical History Right frontal parietal CVA Right internal carotid artery occlusion Depression disorder NOS Essential hypertension Hyperlipidemia Osteoarthritis Chronic left heel ulcer Peripheral vascular disease with multiple occlusion of bilateral lower extremities Chronic systolic heart failure ejection fraction 35-40% Tobaccoism Esophagitis Past Surgical History Right thoracotomy/chest tube Left heel ulcer right eye right ankle debridement Active Ordered Medications Current Medications Medications (Trade) Dose Ordered Sig/Mohit Route Start Time Stop Time Status Last Admin (NS Flush) 2 ml UNSCH PRN IV FLUSH 05/18/17 15:45 (NS Flush) 2 ml BID IV FLUSH 05/18/17 21:00 05/20/17 22:16 (Tylenol) 650 mg Q6H PRN PO 05/18/17 15:45 05/20/17 05:47 (Morphine Inj) 2 mg Q2H PRN PO 05/18/17 16:15 (Ativan Inj) 1 mg Q1H PRN IV PUSH 05/18/17 15:45 (Tears Naturale Opth Soln) 1 drop TID EACH EYE 05/18/17 18:00 05/20/17 16:51 (Zofran Inj) 4 mg Q6H PRN IV PUSH 05/18/17 15:45 (Duoneb Neb) 1 ampule Q6HR NEB INH 05/18/17 16:00 05/21/17 08:49 (Albuterol Neb) 2.5 mg Q2HR NEB PRN INH 05/18/17 15:45 (Heparin Inj) 5,000 units Q12H SQ 05/18/17 17:00 05/21/17 04:50 Miscellaneous Information 1 Q361D XX 05/18/17 15:45 (Chlorhexidine 2% Cloth) 3 pack Taper DAILY@04 TOP 05/19/17 04:00 05/15/18 03:59 05/21/17 04:00 (Chlorhexidine 2% Cloth) 3 pack UNSCH PRN TOP 05/18/17 15:45 (Kajal-Colace) 1 tab BID PO 05/18/17 21:00 05/20/17 22:06 (Milk Of Magnesia Liq) 30 ml Q12H PRN PO 05/18/17 15:45 (Senokot) 17.2 mg Q12H PRN PO 05/18/17 15:45 (Dulcolax Supp) 10 mg DAILY PRN RECTAL 05/18/17 15:45 (Lactulose Liq) 30 ml DAILY PRN PO 05/18/17 15:45 (D50w (Vial) Inj) 50 ml UNSCH PRN IV PUSH 05/18/17 15:45 05/19/17 17:15 (Glucagon Inj) 1 mg UNSCH PRN OTHER 05/18/17 15:45 (Vitamin C) 500 mg BID PO 05/18/17 21:00 05/20/17 22:07 (Ecotrin Ec) 81 mg DAILY PO 05/19/17 09:00 05/20/17 07:44 (Lipitor) 20 mg HS PO 05/18/17 21:00 05/20/17 22:07 (Remeron Soltab Odt) 15 mg HS PO 05/18/17 21:00 05/20/17 22:07 (Trandate Inj) 10 mg Q1HR PRN IV PUSH 05/18/17 16:15 05/19/17 10:40 (Apresoline Inj) 10 mg Q1HR PRN IV PUSH 05/18/17 16:15 05/21/17 02:02 (Nitroglycerin 2% Oint) 2 inch Q6H PRN TOPICAL 05/18/17 17:00 (Theragran M Tab) 1 tab DAILY PO 05/19/17 09:00 05/20/17 07:49 (Cerebyx Inj) 100 mgpe Q8HR IV 05/18/17 22:00 05/21/17 04:51 Potassium Chloride 100 ml @ 50 mls/hr Q2H PRN IV 05/18/17 17:00 Potassium Chloride 100 ml @ 50 mls/hr Q2H PRN IV 05/18/17 17:00 05/21/17 08:21 (K-Lyte Cl Eff) 50 meq UNSCH PRN PO 05/18/17 17:00 Potassium Chloride 100 ml @ 25 mls/hr UNSCH PRN IV 05/18/17 17:00 Potassium Chloride 100 ml @ 50 mls/hr Q2H PRN IV 05/18/17 17:00 Magnesium Sulfate 4 gm/Sodium Chloride 100 ml @ 50 mls/hr UNSCH PRN IV 05/18/17 17:00 (Mag-Ox) 800 mg UNSCH PRN PO 05/18/17 17:00 Magnesium Sulfate 2 gm/Sodium Chloride 100 ml @ 50 mls/hr UNSCH PRN IV 05/18/17 17:00 (K-Phos) 2,000 mg Q4H PRN PO 05/18/17 17:00 Sodium Phosphate 30 mmol/Sodium Chloride 250 ml @ 42 mls/hr UNSCH PRN IV 05/18/17 17:00 05/21/17 08:21 (K-Phos) 2,000 mg UNSCH PRN PO/TUBE 05/18/17 17:00 Potassium Phosphate 30 mmol/ Sodium Chloride 260 ml @ 42 mls/hr UNSCH PRN IV 05/18/17 17:00 05/20/17 05:45 (Peridex 0.12% Liq) 15 ml BID@08,20 MT 05/18/17 20:00 05/20/17 20:00 Propofol 100 ml @ 0 mls/hr TITRATE PRN IV 05/18/17 18:00 05/21/17 08:22 Fentanyl Citrate 250 ml @ 5 mls/hr TITRATE PRN IV 05/18/17 18:00 (NS Flush) DAILY IV FLUSH 05/19/17 09:00 05/19/17 10:35 (NS Flush) UNSCH PRN IV FLUSH 05/18/17 19:00 (NovoLIN R SUPPLEMENTAL SCALE) 1 Q6HR SQ 05/19/17 12:00 05/21/17 05:11 (Beneprotein Powder) 1 pack TID G-TUBE 05/19/17 13:00 05/20/17 16:51 (Pepcid Liq) 20 mg BID NG 05/19/17 21:00 05/20/17 22:08 (Coreg) 6.25 mg Q12HR PO 05/19/17 21:00 05/20/17 22:07 (Catapres) 0.1 mg Q6H PRN PO 05/19/17 11:45 Dextrose/Sodium Chloride 1,000 ml @ 100 mls/hr Q10H IV 05/19/17 18:00 05/20/17 23:45 Pharmacy Profile Note 0 ml @ 0 mls/hr UNSCH OTHER 05/20/17 19:15 Cefepime HCl 2000 mg/Sodium Chloride 100 ml @ 200 mls/hr Q8HR IV 05/20/17 22:00 05/21/17 04:50 Vancomycin HCl 500 mg/Sodium Chloride 100 ml @ 200 mls/hr Q24H IV 05/21/17 23:00 Miscellaneous Information SPECIFIC LAB TO BE DRAWN:VANCO TROUGH DATE TO... ONCE ONCE .XX 05/23/17 22:45 05/23/17 22:46 Azithromycin 250 mg/Sodium Chloride 250 ml @ 250 mls/hr Q24H IV 05/20/17 23:00 05/20/17 23:00 Family History Father with colon cancer and hypertension. Mother with diabetes Social History Has been in the correction Prior history of 1 pack per day tobacco. Previously consumed 12 beers daily. Currently sober. No documentation of illicit drug use. Physical Exam Vital Signs Vital Signs Date Time Temp Pulse Resp B/P (MAP) Pulse Ox O2 Delivery O2 Flow Rate FiO2 05/21/17 08:44 99 30 05/21/17 04:05 100 35 05/21/17 04:00 99.3 92 18 160/70 (100) 05/21/17 04:00 35 05/21/17 00:12 99 35 05/21/17 00:00 35 05/21/17 00:00 100.6 89 22 187/86 (119) 99 05/20/17 20:00 100.4 92 18 141/97 (112) 100 05/20/17 20:00 35 05/20/17 19:55 99 35 05/20/17 18:00 91 05/20/17 16:17 98 35 05/20/17 16:00 82 05/20/17 16:00 35 05/20/17 16:00 82 143/68 (93) 05/20/17 16:00 98.4 82 25 143/68 (93) 100 05/20/17 14:00 81 05/20/17 12:00 78 131/68 (89) 05/20/17 12:00 35 05/20/17 12:00 98.2 78 20 131/68 (89) 100 05/20/17 12:00 78 05/20/17 10:58 100 35 05/20/17 10:00 76 Physical Exam GENERAL: Patient is a thin, well-developed male, sedated on the vent, not in respiratory distress. When sedation was lightened, he did awaken, and followed commands on the right side. SKIN: Warm and dry. No generalized rash, no ecchymoses and no evidence of embolic lesions. HEAD: Atraumatic. Normocephalic. No temporal wasting, or tenderness. EYES: [place] conjunctiva. No petechia or hemorrhage. Pupils equal, round and reactive to light. No scleral icterus. No injection or drainage. EARS, NOSE AND THROAT: Nose without bleeding or purulent nasal discharge. He is orally intubated. NECK: Trachea midline. Supple and not tender, no meningeal signs CARDIOVASCULAR: Regular rate and rhythm. No murmurs, rubs or gallops heard RESPIRATORY: Coarse breath sounds bilaterally, decreased at the bases. No rales, wheezing or rhonchi ABDOMEN: Soft, flat, nondistended, bowel sounds present and normoactive. No guarding. No rebound. He did some grimacing during abdominal palpation. No organomegaly. EXTREMITIES: No clubbing, cyanosis, or edema. No joint effusion. His lower extremities are contracted. Well perfused and warm. NEUROLOGICAL: Sedated PSYCHIATRIC: Unable to examine. LINE: No evidence of infection RIJ : Flaherty catheter in place, with very small amount of sediment Laboratory Laboratory Tests Test 05/20/17 18:30 05/21/17 01:05 05/21/17 03:15 05/21/17 04:50 Potassium Level 3.4 2.9 Phosphorus Level 2.6 1.9 Blood Urea Nitrogen 22 Creatinine 1.00 Random Glucose 112 Total Protein 5.5 Albumin 1.9 Calcium Level 7.5 Magnesium Level 1.9 Alkaline Phosphatase 76 Aspartate Amino Transf (AST/SGOT) 30 Alanine Aminotransferase (ALT/SGPT) 26 Total Bilirubin 0.2 Sodium Level 147 Chloride Level 116 Carbon Dioxide Level 24.5 Anion Gap 7 Estimat Glomerular Filtration Rate 77 White Blood Count 16.8 Red Blood Count 3.11 Hemoglobin 9.2 Hematocrit 28.2 Mean Corpuscular Volume 90.5 Mean Corpuscular Hemoglobin 29.7 Mean Corpuscular Hemoglobin Concent 32.8 Red Cell Distribution Width 15.0 Platelet Count 225 Mean Platelet Volume 8.6 Neutrophils (%) (Auto) 91.1 Lymphocytes (%) (Auto) 5.0 Monocytes (%) (Auto) 3.4 Eosinophils (%) (Auto) 0.2 Basophils (%) (Auto) 0.3 Neutrophils # (Auto) 15.3 Lymphocytes # (Auto) 0.8 Monocytes # (Auto) 0.6 Eosinophils # (Auto) 0.0 Basophils # (Auto) 0.0 CBC Comment DIFF FINAL Differential Comment Blood Gas Puncture Site RT RADIAL Blood Gas Patient Temperature 98.6 Blood Gas HCO3 22 Blood Gas Base Excess -1.3 Blood Gas Oxygen Saturation 95 Arterial Blood pH 7.44 Arterial Blood Partial Pressure CO2 34 Arterial Blood Partial Pressure O2 96 Arterial Blood Oxygen Content 14.3 Arterial Blood Carboxyhemoglobin 0.9 Arterial Blood Methemoglobin 1.5 Blood Gas Hemoglobin 10.6 Oxygen Delivery Device VENTILATOR Blood Gas Ventilator Setting PRVC/AC Blood Gas Inspired Oxygen 35 Date/Time Source Procedure Growth Status 05/18/17 12:45 Blood Peripheral Aerobic Blood Culture - Preliminary NO GROWTH IN 2 DAYS Resulted 05/18/17 12:45 Blood Peripheral Anaerobic Blood Culture - Preliminary NO GROWTH IN 2 DAYS Resulted 05/21/17 01:10 Nasal Washing Influenza Types A,B Antigen (LAZARO) - Final NEGATIVE FOR FLU A AND B ANTIGEN.... Complete Result Diagram: 05/21/17 0315 05/21/17 0105 Imaging RADIOLOGY STUDIES/FILMS REVIEWED Last Impressions Chest X-Ray 05/21/17 0600 Signed Impressions: Service Date/Time: Sunday, May 21, 2017 03:32 - CONCLUSION: Mild lateral perihilar infiltrates are developing. Lacho Shi MD Renal Ultrasound 05/19/17 0000 Signed Impressions: Service Date/Time: Friday, May 19, 2017 14:07 - CONCLUSION: Atrophic right kidney. Left kidney is unremarkable. Flaherty catheter in place. Lacho Morel MD Brain MRI 05/19/17 0000 Signed Impressions: Service Date/Time: Friday, May 19, 2017 08:27 - CONCLUSION: Old infarcts and extensive white matter disease. Marked atrophy without mass effect. Negative for acute ischemic event Galen Beal MD FACR Head CT 05/18/17 1218 Signed Impressions: Service Date/Time: Thursday, May 18, 2017 14:10 - CONCLUSION: 1. Although chronic appearing, there is interval worsening in the encephalomalacia changes in the right frontoparietal region as detailed above. Exvacuo dilatation of the adjacent ventricular system. 2. Nothing acute. 3. Severe chronic sinusitis the right maxillary antrum. Michael Cruz MD Assessment and Plan Assessment and Plan IMPRESSION Sepsis, fevers and luekocytosis, and altered mental status - likely due to PNA - came from [place] - UA ok; has had increased PVR and required flaherty 05/19 Pneumonia Respiratory failure Previous CVA with L sided weakness Renal insufficiency Leukocytosis, improving RECOMMENDATION Continue empiric Abx; Cefepime (GNR coverage), vanco (MRSA coverage) and Zithromax (Atypical coverage [place] and pneumo Ag Repeat 2 BC today Repeat UA and C/S Follow C/S Monitor temps Follow CBC Monitor progress I will determine course of Abx once work-up completed and depending on his response to Rx I will follow along with you Thank you for this consultation Discussed Condition With D/W Celine Ron MD May 21, 2017 09:35
[2017-05-21] MEDS: MULTIVITAMINS/MINERALS THERAPEUTIC TAB PO SCH (09:50)
[2017-05-21] MEDS: CARVEDILOL 3.125 MG TAB PO SCH ×2 (09:51→20:40)
[2017-05-21] MEDS: ASPIRIN EC 81 MG TABEC PO SCH (09:51)
[2017-05-21] MEDS: ASCORBIC ACID 500 MG TAB PO SCH ×2 (09:51→20:39)
[2017-05-21] MEDS: SODIUM CHLORIDE 0.9% FLUSH 10 ML FLUSH IV FLUSH SCH ×3 (09:52→20:41)
[2017-05-21] MEDS: FAMOTIDINE 40 MG/5 ML LIQ 50 ML BTL NG SCH ×2 (09:53→21:00)
[2017-05-21] MEDS: CHLORHEXIDINE 0.12% (ORAL KIT) 15 ML CUP MT SCH ×2 (09:53→20:00)
[2017-05-21] MEDS: ARTIFICIAL TEARS OPTH SOLN 15 ML BTL EACH EYE SCH ×2 (09:53→18:20)
[2017-05-21 11:17] LABS: BACTERIA, URINE OCC /hpf; BILIRUBIN, URINE NEG (NEG); BLOOD, URINE SMALL (NEG); GLUCOSE,URINE 1000 mg/dL (NEG); KETONE, URINE NEG (NEG); NITRITE,URINE NEG (NEG); PH, URINE 5.5 (5.0-8.5); URINE COLOR YELLOW (YELLW/STRAW); URINE LEUKOCYTE ESTERASE NEG (NEG)
--- NOTE | 2017-05-21 15:49 | RADRPT ---
EXAM DATE/TIME: 05/21/2017 15:09 [place] COMPARISON: CHEST SINGLE AP, May 21, 2017, 3:32. INDICATIONS : Evaluate intubation MEDICAL HISTORY : Venous insufficiency. Hypertension. Chronic obstructive pulmonary disease. CVA SURGICAL HISTORY : None. ENCOUNTER: Subsequent ACUITY: 3 days PAIN SCORE: Non-responsive. LOCATION: chest FINDINGS: ETT is at the level of the clavicles. Stable right IJ central line and section type NGT in the stomac h. Lungs are hyperexpanded with progressing patchy perihilar lower lobe dependent airspace opacities. Cardiomediastinal contours are stable. Remainder of exam is unchanged. CONCLUSION: 1. ETT in good position. Right IJ central line and NGT in good position. 2. Worsening patchy lower lobe predominate perihilar airspace disease. Doug Valencia MD on May 21, 2017 at 15:45 Board Certified Radiologist. This report was verified electronically.
[2017-05-21] MEDS ORDERED: LABETALOL HCL 100 MG/20 ML VIAL IV PUSH PRN (17:15)
[2017-05-21] MEDS ORDERED: ACETAMINOPHEN/HYDROcodone 325 MG/7.5 MG TAB PO PRN (17:15)
--- NOTE | 2017-05-21 17:30 | HHI.CCPN ---
Subjective Remarks/Hospital Course 57-year-old male. Date of admission 05/18/2017. 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 Today, he presents to [facility] ED from the care home with complaints of altered mental status and reported fever. According to documentation from ED visit, the paramedics documented that the care homeadministrator of home health stated that they found him slumped over the bed. They reported that he had decreased mental status. They also reported a fever of 103. When paramedics arrived, they found him to be with normal temperature. He did appear altered and somewhat aggressive. There is no other further history elicited. Patient had a white blood cell count of 18,000. Potassium 2.5. Elevated troponin 0 0.24. EKG currently pending. CT brain revealed subtle increased right frontal parietal temporal changes with ex vacuo dilatation of the ventricles. Right maxillary sinusitis. Patient had a witnessed seizure in the ED was given 1 g of fosphenytoin and 2 mg of midazolam. He is also received 1.5 L normal saline and is placed on potassium protocol for potassium 2.5. Magnesium is currently pending. Subjective 05/19: Afebrile. MRI brain revealed old right MCA CVA with scattered white matter changes. No acute infarct. EEG pending. Hemodynamically stable. Potassium actively being replaced. A.m. laboratories currently pending. 05/20: Late entry note.Afebrile. No acute events overnight. Noted WBC increased. Sputum culture pending. ID consulted. 05/21: Late entry note. Patient seen at 11 AM. Patient tolerates CPAP trials for approximately 3 hours. Plan for transition to Precedex for vent weaning. Upon sedation vacation patient following commands right upper and lower extremities, nodding head yes and no questions. Objective Vital Signs Date Time Temp Pulse Resp B/P (MAP) Pulse Ox O2 Delivery O2 Flow Rate FiO2 05/21/17 16:42 97 30 05/21/17 16:00 98.0 74 15 140/69 (92) 05/18/17 16:59 Nasal Cannula 2.00 Intake and Output 05/21/17 05/21/17 05/22/17 08:00 16:00 00:00 Intake Total 710 ml 947 ml Output Total 1150 ml Balance -440 ml 947 ml Result Diagram: 05/21/17 0315 05/21/17 0105 Other Results Microbiology Date/Time Source Procedure Growth Status 05/21/17 01:10 Nasal Washing Influenza Types A,B Antigen (LAZARO) - Final NEGATIVE FOR FLU A AND B ANTIGEN.... Complete 05/21/17 10:50 Urine Catheterized Urine Legionella Antigen - Final PRESUMPTIVE NEGATIVE FOR LEGIONELLA P... Complete 05/21/17 10:50 Urine Catheterized Urine Streptococcus pneumoniae Antigen (M - Final PRESUMPTIVE NEGATIVE FOR STREPTOCOCCU... Complete Laboratory Tests Test 05/21/17 04:50 Blood Gas Puncture Site RT RADIAL Blood Gas Patient Temperature 98.6 Blood Gas HCO3 22 mmol/L (22-26) Blood Gas Base Excess -1.3 mmol/L (-2-2) Blood Gas Oxygen Saturation 95 % (90-100) Arterial Blood pH 7.44 (7.380-7.420) Arterial Blood Partial Pressure CO2 34 mmHg (38-42) Arterial Blood Partial Pressure O2 96 mmHg (61-120) Arterial Blood Oxygen Content 14.3 Vol % (12.0-20.0) Arterial Blood Carboxyhemoglobin 0.9 % (0-4) Arterial Blood Methemoglobin 1.5 % (0-2) Blood Gas Hemoglobin 10.6 G/DL (12.0-16.0) Oxygen Delivery Device VENTILATOR Blood Gas Ventilator Setting PRVC/AC Blood Gas Inspired Oxygen 35 % Imaging Last Impressions Chest X-Ray 05/21/17 0600 Signed Impressions: Service Date/Time: Sunday, May 21, 2017 03:32 - CONCLUSION: Mild lateral perihilar infiltrates are developing. Lacho Shi MD Renal Ultrasound 05/19/17 0000 Signed Impressions: Service Date/Time: Friday, May 19, 2017 14:07 - CONCLUSION: Atrophic right kidney. Left kidney is unremarkable. Millard catheter in place. Lacho Morel MD Brain MRI 05/19/17 0000 Signed Impressions: Service Date/Time: Friday, May 19, 2017 08:27 - CONCLUSION: Old infarcts and extensive white matter disease. Marked atrophy without mass effect. Negative for acute ischemic event Galen Beal MD FACR Head CT 05/18/17 1218 Signed Impressions: Service Date/Time: Thursday, May 18, 2017 14:10 - CONCLUSION: 1. Although chronic appearing, there is interval worsening in the encephalomalacia changes in the right frontoparietal region as detailed above. Exvacuo dilatation of the adjacent ventricular system. 2. Nothing acute. 3. Severe chronic sinusitis the right maxillary antrum. Michael Cruz MD Last Impressions Chest X-Ray 05/20/17 0600 Signed Impressions: Service Date/Time: Saturday, May 20, 2017 03:48 - CONCLUSION: Left Perihilar edema versus pneumonia. This is new when compared with the prior exam. Josiah Membreno MD Renal Ultrasound 05/19/17 0000 Signed Impressions: Service Date/Time: Friday, May 19, 2017 14:07 - CONCLUSION: Atrophic right kidney. Left kidney is unremarkable. Millard catheter in place. Lacho Morel MD Brain MRI 05/19/17 0000 Signed Impressions: Service Date/Time: Friday, May 19, 2017 08:27 - CONCLUSION: Old infarcts and extensive white matter disease. Marked atrophy without mass effect. Negative for acute ischemic event Galen Beal MD FACR Head CT 05/18/17 1218 Signed Impressions: Service Date/Time: Thursday, May 18, 2017 14:10 - CONCLUSION: 1. Although chronic appearing, there is interval worsening in the encephalomalacia changes in the right frontoparietal region as detailed above. Exvacuo dilatation of the adjacent ventricular system. 2. Nothing acute. 3. Severe chronic sinusitis the right maxillary antrum. Michael Cruz MD Last Impressions Brain MRI 05/19/17 0000 Signed Impressions: Service Date/Time: Friday, May 19, 2017 08:27 - CONCLUSION: Old infarcts and extensive white matter disease. Marked atrophy without mass effect. Negative for acute ischemic event Galen Beal MD FACR Chest X-Ray 05/18/17 1854 Signed Impressions: Service Date/Time: Thursday, May 18, 2017 19:03 - CONCLUSION: 1. Support apparatus in good position. Right upper lobe scarring and pleural thickening with partial lung resection. Underlying emphysema. No pneumothorax. Delta Anderson MD Head CT 05/18/17 1218 Signed Impressions: Service Date/Time: Thursday, May 18, 2017 14:10 - CONCLUSION: 1. Although chronic appearing, there is interval worsening in the encephalomalacia changes in the right frontoparietal region as detailed above. Exvacuo dilatation of the adjacent ventricular system. 2. Nothing acute. 3. Severe chronic sinusitis the right maxillary antrum. Michael Cruz MD Objective Remarks GENERAL: 57-year-old male currently orotracheally intubated, planning to yes and no questions SKIN: Warm and dry. Dry necrotic ulcer to left kam/heel noted. HEAD: Atraumatic. Normocephalic. EYES: Pupils equal and round. No scleral icterus. No injection or drainage. ENT: No nasal bleeding or discharge. Mucous membranes pink and moist. NECK: Trachea midline. No JVD. CARDIOVASCULAR: Regular rate and rhythm. S1, S2. No S4. Without murmur RESPIRATORY: No accessory muscle use. Clear to auscultation. Breath sounds equal bilaterally. GASTROINTESTINAL: Abdomen soft, non-tender, scaphoid. Positive bowel sounds appreciated MUSCULOSKELETAL: Left upper lower extremity contracted. See skin for left kam/ heel ulcer/multiple NEUROLOGICAL: Movement of right upper and lower extremity GCS around 9. [id number]. Date of Insertion: May 18, 2017 Line: Central Venous Catheter Side: Right Location: Internal, Jugular A/P Assessment and Plan Neuro/Psych: Seizure History of right frontal parietal CVA with left-sided weakness History of right ICA occlusion Prior history of alcoholism Depression NOS Chronic opioid use Propofol drip at 50 mg/kg which remained sedation while intubated, will transition to Precedex for vent weaning trial Goal of RASS -2 CT brain revealed right frontoparietal temporal changes with ex vacuo dilatation. Right maxillary sinusitis MRI brain 05/19 revealed right MCA CVA with scattered white matter changes. No new infarct Received 1 g fosphenytoin in ED. 2 mg of lorazepam. Seizure precautions 05/20-EEG -moderate encephalopathy Start on phenytoin 100 mg IV every 8 hours Dilantin level 14.5 CV: Chronic systolic heart failure ejection fraction 35-40% Hypertension Hyperlipidemia Peripheral vascular occlusive disease Elevated troponin Echocardiogram 07/22 revealed EF 35-40%. LVH. Septal hypokinesis. Pulmonary arterial pressures 23 mmHg 05/19Repeat echocardiogram- EF 40-45%.Trace TR , PAP 39 Continue carvedilol 3.125 mg twice daily. Increased to 6.25 twice daily As needed labetalol/hydralazine/Nitropaste for hypertension Currently on atorvastatin 20 mg by mouth daily Coumadin aspirin 81 mg p.o. daily Received 1.5 L normal saline in ED. Currently not on diuretics Patient previously refused amputation to left lower extremity per Dr. Dasilva 02/22 Cycle troponins currently with downward trend Labetalol for systolic blood pressure greater than 160mmHg Resp: Acute respiratory insufficiency History of tobaccoism/COPD [facility] //02/09/34 Albuterol/ipratropium aerosols every 6 hours with albuterol aerosols every 2 hours as needed dyspnea Chest x-ray revealed emphysematous changes. No focal infiltrate 05/20 chest x-ray -perihilar edema versus pneumonia Continue daily CPAP trials-transition to Precedex GI: History of esophagitis Gastroesophageal reflux disease Patient is currently n.p.o. Start vital 1.5 goal 40 cc an hour bit of protein 2 packets 3 times daily Famotidine for GI prophylaxis Docusate sodium/senna 1 tablet twice daily for bowel regimen : Millard catheter if indicated for accurate I's and O's in a critically ill patient Endo: Sliding scale insulin Accu-Cheks to maintain euglycemia/low regimen every 6 hours Renal: Chronic kidney disease stage III a 05/21 IV fluids discontinued Creatinine currently 1.8 Check urine electrolytes and eosinophils/renal ultrasound Monitor urine output Accurate I's and O's Monitor BMP Heme: Leukocytosis Thrombocytosis Currently on ferrous sulfate 325 mg p.o. twice daily Follow-up on coags Does not meet transfusion threshold at this time Monitor CBC daily. Follow trends ID: Blood cultures 2, sputum and urine ordered Monitor for infection FEN: Hypokalemia Replace electrolytes as clinically indicated per electrolyte protocol MSK: Osteoporosis/osteoarthritis Left heel ulcer Physical therapy evaluate and treat. Wound care evaluate left lower extremity. Access -Utilize peripheral IV. Central and if indicated Prophylaxis -GI -famotidine -DVT -SCD/heparin subcu Critical Care: Level 3 follow up Discussed with MULTIPLE CUT OFF SAW OPERATOR at bedside (Alissa) Physician Britney Jung MD May 21, 2017 17:30
[2017-05-21] MEDS: MIRTAZAPINE ODT 15 MG TAB PO SCH (20:39)
[2017-05-21] MEDS: ATORVASTATIN 20 MG TAB PO SCH (20:39)
[2017-05-21] MEDS: ACETAMINOPHEN 325 MG TAB PO PRN (20:39)
[2017-05-21 20:55] LABS: PHOSPHORUS 2.5 MG/DL (2.5-4.9)
[2017-05-21] MEDS: LABETALOL HCL 100 MG/20 ML VIAL IV PUSH PRN (20:55)
[2017-05-21] MEDS ORDERED: POTASSIUM CHLORIDE 20 MEQ PWD PACKET NG ONE (21:15)
[2017-05-21] MEDS: VANCOMYCIN 500 MG/NS 100 ML IV SCH ×2 (22:49)
[2017-05-21] MEDS: AZITHROMYCIN INJ 250 MG in SODIUM CHLOR 0.9% 250 ML INJ 250 ML IV SCH (23:00)
[2017-05-22] VITALS (20 sets, daily range): BP systolic 141–198; BP diastolic 60–90; PULSE 66–79; RESP 14–32; TEMP 97.9–99.4; O2SAT 92–100
[2017-05-22] MEDS: CHLORHEXIDINE GLUCONATE 2 % 1 PACK (2 CLOTHS) TOP SCH (04:00)
[2017-05-22] MEDS: RESP: ALBUTEROL 2.5 MG/IPRATROPIUM 0.5 MG NEB (SCH) INH ×3 (04:16→15:53)
[2017-05-22] MEDS: CEFEPIME INJ 2,000 MG in SODIUM CHLORIDE 0.9% INJ 100 ML IV SCH ×3 (04:55→21:12)
[2017-05-22] MEDS: FOSPHENYTOIN SODIUM 100 MG PE/2 ML VIAL IV SCH ×3 (04:55→21:12)
[2017-05-22] MEDS: HEPARIN SODIUM - SQ 10,000 UNITS/ML VIAL SQ SCH ×2 (04:56→17:19)
[2017-05-22] MEDS: LABETALOL HCL 100 MG/20 ML VIAL IV PUSH PRN ×3 (04:57→18:34)
[2017-05-22 05:15] LABS: AUTOMATED NEUTROPHIL # 8.7 TH/MM3 (1.8-7.7); BASOPHIL # 0.1 TH/MM3 (0-0.2); BASOPHIL % 0.7 % (0.0-2.0); EOSINOPHIL # 0.5 TH/MM3 (0-0.4); EOSINOPHIL % 4.8 % (0.0-4.0); HEMATOCRIT 25.4 % (39.0-51.0); HEMOGLOBIN 8.4 GM/DL (13.0-17.0); LYMPH % 8.4 % (9.0-44.0); LYMPHOCYTE # 0.9 TH/MM3 (1.0-4.8); MEAN CELL VOLUME 90.9 FL (80.0-100.0); MEAN CORPUSCULAR HEMOGLOBIN 30.1 PG (27.0-34.0); MEAN CORPUSCULAR HGB CONC 33.1 % (32.0-36.0); MEAN PLATELET VOLUME 8.4 FL (7.0-11.0); MONO % 4.7 % (0.0-8.0); MONOCYTE # 0.5 TH/MM3 (0-0.9); NEUT % 81.4 % (16.0-70.0); PLATELET COUNT 206 TH/MM3 (150-450); RED CELL DISTRIBUTION WIDTH 15.4 % (11.6-17.2); WHITE BLOOD COUNT 10.7 TH/MM3 (4.0-11.0)
[2017-05-22] MEDS: INSULIN NovoLIN REGULAR SUPPLEMENTAL SCALE SQ SCH ×3 (05:30→17:19)
[2017-05-22 05:38] LABS: BICARBONATE 22.6 MEQ/L (21.0-32.0); CALCIUM 8.1 MG/DL (8.5-10.1); CREATININE 1.04 MG/DL (0.60-1.30)
[2017-05-22] MEDS: PROPOFOL 1000 MG/100 ML INJ 100 ML IV PRN (05:45)
--- NOTE | 2017-05-22 05:54 | RADRPT ---
EXAM DATE/TIME: 05/22/2017 04:23 [place] COMPARISON: CHEST SINGLE AP, May 21, 2017, 15:09. INDICATIONS : Short of breath. MEDICAL HISTORY : Venous insufficiency. Hypertension. Chronic obstructive pulmonary disease. CVA SURGICAL HISTORY : None. ENCOUNTER: Subsequent ACUITY: 3 days PAIN SCORE: 0/10 LOCATION: Bilateral chest FINDINGS: Right greater than left basilar consolidation again noted and both sides appear modestly worse in the interim. No perceptible effusion. No pneumothorax seen. There is emphysema. Heart size stable, normal. Endotracheal tube tip is approximately 4 cm above the ruben. Nasogastric tube courses into the stoma ch. There is a right internal jugular central venous catheter with tip in the superior vena cava. CONCLUSION: Bilateral air space opacities are slightly worse. Otherwise no significant change. Lacho Shi MD on May 22, 2017 at 5:52 Board Certified Radiologist. This report was verified electronically.
[2017-05-22] MEDS ORDERED: DEXMEDETOMIDINE INJ 200 MCG in SODIUM CHLORIDE 0.9% INJ 50 ML IV PRN (07:00)
[2017-05-22] MEDS: RESP: ALBUTEROL 2.5 MG/3 ML NEB (PRN) INH (07:55)
[2017-05-22] MEDS: FAMOTIDINE 40 MG/5 ML LIQ 50 ML BTL NG SCH ×2 (08:36→20:36)
[2017-05-22] MEDS: DOCUSATE SODIUM 50 MG/SENNA 8.6 MG TAB PO SCH ×2 (08:36→20:36)
[2017-05-22] MEDS: ASCORBIC ACID 500 MG TAB PO SCH ×2 (08:36→20:36)
[2017-05-22] MEDS: ASPIRIN EC 81 MG TABEC PO SCH (08:36)
[2017-05-22] MEDS: ARTIFICIAL TEARS OPTH SOLN 15 ML BTL EACH EYE SCH ×4 (08:36→17:13)
[2017-05-22] MEDS: CARVEDILOL 3.125 MG TAB PO SCH ×2 (08:36→20:35)
[2017-05-22] MEDS: MULTIVITAMINS/MINERALS THERAPEUTIC TAB PO SCH (08:36)
[2017-05-22] MEDS: SODIUM CHLORIDE 0.9% FLUSH 10 ML FLUSH IV FLUSH SCH ×3 (08:37→20:36)
[2017-05-22] MEDS: CHLORHEXIDINE 0.12% (ORAL KIT) 15 ML CUP MT SCH ×2 (08:37→20:37)
[2017-05-22] MEDS: BENEPROTEIN POWDER 1 PACK G-TUBE SCH ×3 (08:37→17:19)
--- NOTE | 2017-05-22 10:13 | HHI.CCPN ---
Subjective Remarks/Hospital Course 57-year-old male. Date of admission 05/18/2017. 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 Today, he presents to [facility] ED from the half-way with complaints of altered mental status and reported fever. According to documentation from ED visit, the paramedics documented that the [facility] nurse licensed practical stated that they found him slumped over the bed. They reported that he had decreased mental status. They also reported a fever of 103. When paramedics arrived, they found him to be with normal temperature. He did appear altered and somewhat aggressive. There is no other further history elicited. Patient had a white blood cell count of 18,000. Potassium 2.5. Elevated troponin 0 0.24. EKG currently pending. CT brain revealed subtle increased right frontal parietal temporal changes with ex vacuo dilatation of the ventricles. Right maxillary sinusitis. Patient had a witnessed seizure in the ED was given 1 g of fosphenytoin and 2 mg of midazolam. He is also received 1.5 L normal saline and is placed on potassium protocol for potassium 2.5. Magnesium is currently pending. Subjective 05/19: Afebrile. MRI brain revealed old right MCA CVA with scattered white matter changes. No acute infarct. EEG pending. Hemodynamically stable. Potassium actively being replaced. A.m. laboratories currently pending. 05/20: Late entry note.Afebrile. No acute events overnight. Noted WBC increased. Sputum culture pending. ID consulted. 05/21: Late entry note. Patient seen at 11 AM. Patient tolerates CPAP trials for approximately 3 hours. Plan for transition to Precedex for vent weaning. Upon sedation vacation patient following commands right upper and lower extremities, nodding head yes and no questions. 05/22: T-max 99.4. Sputum culture revealed strep pneumonia. ID following. Patient continues on CPAP trials on the Precedex. SBT parameters successful plan for extubation this a.m. Patient hypertensive during the evening resumed Norvasc the same. Objective Vital Signs Date Time Temp Pulse Resp B/P (MAP) Pulse Ox O2 Delivery O2 Flow Rate FiO2 05/22/17 08:15 30 05/22/17 08:00 75 05/22/17 08:00 98.0 18 198/90 (126) 100 05/18/17 16:59 Nasal Cannula 2.00 Intake and Output 05/22/17 05/22/17 05/23/17 08:00 16:00 00:00 Intake Total 1124 ml 297 ml Output Total 350 ml Balance 774 ml 297 ml Result Diagram: 05/22/17 0440 05/22/17 0440 Other Results Microbiology Date/Time Source Procedure Growth Status 05/21/17 01:10 Nasal Washing Influenza Types A,B Antigen (LAZARO) - Final NEGATIVE FOR FLU A AND B ANTIGEN.... Complete 05/21/17 10:50 Urine Catheterized Urine Legionella Antigen - Final PRESUMPTIVE NEGATIVE FOR LEGIONELLA P... Complete 05/21/17 10:50 Urine Catheterized Urine Streptococcus pneumoniae Antigen (M - Final PRESUMPTIVE NEGATIVE FOR STREPTOCOCCU... Complete Imaging Last Impressions Chest X-Ray 05/22/17 0600 Signed Impressions: Service Date/Time: Monday, May 22, 2017 04:23 - CONCLUSION: Bilateral air space opacities are slightly worse. Otherwise no significant change. Lacho Shi MD Renal Ultrasound 05/19/17 0000 Signed Impressions: Service Date/Time: Friday, May 19, 2017 14:07 - CONCLUSION: Atrophic right kidney. Left kidney is unremarkable. Millard catheter in place. Lacho Morel MD Brain MRI 05/19/17 0000 Signed Impressions: Service Date/Time: Friday, May 19, 2017 08:27 - CONCLUSION: Old infarcts and extensive white matter disease. Marked atrophy without mass effect. Negative for acute ischemic event Galen Beal MD FACR Head CT 05/18/17 1218 Signed Impressions: Service Date/Time: Thursday, May 18, 2017 14:10 - CONCLUSION: 1. Although chronic appearing, there is interval worsening in the encephalomalacia changes in the right frontoparietal region as detailed above. Exvacuo dilatation of the adjacent ventricular system. 2. Nothing acute. 3. Severe chronic sinusitis the right maxillary antrum. Michael Cruz MD Last Impressions Chest X-Ray 05/21/17 0600 Signed Impressions: Service Date/Time: Sunday, May 21, 2017 03:32 - CONCLUSION: Mild lateral perihilar infiltrates are developing. Lacho Shi MD Renal Ultrasound 05/19/17 0000 Signed Impressions: Service Date/Time: Friday, May 19, 2017 14:07 - CONCLUSION: Atrophic right kidney. Left kidney is unremarkable. Millard catheter in place. Lacho Morel MD Brain MRI 05/19/17 0000 Signed Impressions: Service Date/Time: Friday, May 19, 2017 08:27 - CONCLUSION: Old infarcts and extensive white matter disease. Marked atrophy without mass effect. Negative for acute ischemic event Galen Beal MD FACR Head CT 05/18/17 1218 Signed Impressions: Service Date/Time: Thursday, May 18, 2017 14:10 - CONCLUSION: 1. Although chronic appearing, there is interval worsening in the encephalomalacia changes in the right frontoparietal region as detailed above. Exvacuo dilatation of the adjacent ventricular system. 2. Nothing acute. 3. Severe chronic sinusitis the right maxillary antrum. Michael Cruz MD Last Impressions Chest X-Ray 05/20/17 0600 Signed Impressions: Service Date/Time: Saturday, May 20, 2017 03:48 - CONCLUSION: Left Perihilar edema versus pneumonia. This is new when compared with the prior exam. Josiah Membreno MD Renal Ultrasound 05/19/17 0000 Signed Impressions: Service Date/Time: Friday, May 19, 2017 14:07 - CONCLUSION: Atrophic right kidney. Left kidney is unremarkable. Millard catheter in place. Lacho Morel MD Brain MRI 05/19/17 0000 Signed Impressions: Service Date/Time: Friday, May 19, 2017 08:27 - CONCLUSION: Old infarcts and extensive white matter disease. Marked atrophy without mass effect. Negative for acute ischemic event Galen Beal MD FACR Head CT 05/18/17 1218 Signed Impressions: Service Date/Time: Thursday, May 18, 2017 14:10 - CONCLUSION: 1. Although chronic appearing, there is interval worsening in the encephalomalacia changes in the right frontoparietal region as detailed above. Exvacuo dilatation of the adjacent ventricular system. 2. Nothing acute. 3. Severe chronic sinusitis the right maxillary antrum. Michael Cruz MD Last Impressions Brain MRI 05/19/17 0000 Signed Impressions: Service Date/Time: Friday, May 19, 2017 08:27 - CONCLUSION: Old infarcts and extensive white matter disease. Marked atrophy without mass effect. Negative for acute ischemic event Galen Beal MD FACR Chest X-Ray 05/18/17 1854 Signed Impressions: Service Date/Time: Thursday, May 18, 2017 19:03 - CONCLUSION: 1. Support apparatus in good position. Right upper lobe scarring and pleural thickening with partial lung resection. Underlying emphysema. No pneumothorax. Delta Anderson MD Head CT 05/18/17 1218 Signed Impressions: Service Date/Time: Thursday, May 18, 2017 14:10 - CONCLUSION: 1. Although chronic appearing, there is interval worsening in the encephalomalacia changes in the right frontoparietal region as detailed above. Exvacuo dilatation of the adjacent ventricular system. 2. Nothing acute. 3. Severe chronic sinusitis the right maxillary antrum. Michael Cruz MD Objective Remarks GENERAL: 57-year-old male currently orotracheally intubated, planning to yes and no questions SKIN: Warm and dry. Dry necrotic ulcer to left kam/heel noted. HEAD: Atraumatic. Normocephalic. EYES: Pupils equal and round. No scleral icterus. No injection or drainage. ENT: No nasal bleeding or discharge. Mucous membranes pink and moist. NECK: Trachea midline. No JVD. CARDIOVASCULAR: Regular rate and rhythm. S1, S2. No S4. Without murmur RESPIRATORY: No accessory muscle use. Clear to auscultation. Breath sounds equal bilaterally. GASTROINTESTINAL: Abdomen soft, non-tender, scaphoid. Positive bowel sounds appreciated MUSCULOSKELETAL: Left upper lower extremity contracted. See skin for left kam/ heel ulcer/multiple NEUROLOGICAL: Movement of right upper and lower extremity GCS around 9. [id number]. Date of Insertion: May 18, 2017 Line: Central Venous Catheter Side: Right Location: Internal, Jugular A/P Assessment and Plan Neuro/Psych: Seizure History of right frontal parietal CVA with left-sided weakness History of right ICA occlusion Prior history of alcoholism Depression NOS Chronic opioid use On Precedex for vent weaning trial Goal of RASS -2 CT brain revealed right frontoparietal temporal changes with ex vacuo dilatation. Right maxillary sinusitis MRI brain 05/19 revealed right MCA CVA with scattered white matter changes. No new infarct Received 1 g fosphenytoin in ED. 2 mg of lorazepam. Seizure precautions 05/20-EEG -moderate encephalopathy Phenytoin 100 mg IV every 8 hours Dilantin level 14.5 CV: Chronic systolic heart failure ejection fraction 35-40% Hypertension Hyperlipidemia Peripheral vascular occlusive disease Elevated troponin Echocardiogram 07/22 revealed EF 35-40%. LVH. Septal hypokinesis. Pulmonary arterial pressures 23 mmHg 05/19Repeat echocardiogram- EF 40-45%.Trace TR , PAP 39 Continue carvedilol 3.125 mg twice daily. Increased to 6.25 twice daily As needed labetalol/hydralazine/Nitropaste for hypertension Currently on atorvastatin 20 mg by mouth daily Coumadin aspirin 81 mg p.o. daily Currently not on diuretics Patient previously refused amputation to left lower extremity per Dr. Dasilva 02/22 Cycle troponins currently with downward trend Labetalol for systolic blood pressure greater than 160mmHg PRN Plan to resume Norvasc this a.m. Resp: Acute respiratory insufficiency History of tobaccoism/COPD PRVC /02/09/34 Albuterol/ipratropium aerosols every 6 hours with albuterol aerosols every 2 hours as needed dyspnea Chest x-ray revealed emphysematous changes. No focal infiltrate 05/20 chest x-ray -perihilar edema versus pneumonia Continue daily CPAP trials SBT parameters NIF -22, FVC 710 RSBI 33 , positive cuff leak. ABG-7.4 //21/-2.6 on FiO2 of 30%. Plan for extubation this a.m. GI: History of esophagitis Gastroesophageal reflux disease Vital 1.5 goal 40 cc an hour bit of protein 2 packets 3 times daily Famotidine for GI prophylaxis Docusate sodium/senna 1 tablet twice daily for bowel regimen : Millard catheter if indicated for accurate I's and O's in a critically ill patient Endo: Sliding scale insulin Accu-Cheks to maintain euglycemia/low regimen every 6 hours Renal: Chronic kidney disease stage III a 05/21 IV fluids discontinued Creatinine currently 1.8 Check urine electrolytes and eosinophils/renal ultrasound Monitor urine output Accurate I's and O's Monitor BMP Heme: Leukocytosis Thrombocytosis Currently on ferrous sulfate 325 mg p.o. twice daily Follow-up on coags Does not meet transfusion threshold at this time Monitor CBC daily. Follow trends ID: Blood cultures 2, sputum and urine ordered ID following 05/21 sputum culture-strep pneumonia 05/21-repeat blood culture NGTD 05/21-influenza A/B, Legionella urine antigen -negative FEN: Hypokalemia Replace electrolytes as clinically indicated per electrolyte protocol MSK: Osteoporosis/osteoarthritis Left heel ulcer Physical therapy evaluate and treat. Wound care evaluate left lower extremity. Access -Utilize peripheral IV. Central line Prophylaxis -GI -famotidine -DVT -SCD/heparin subcu Critical Care: Level 3 follow up Discussed with FIELD SALES REPRESENTATIVE at bedside (Lucrecia) Physician Britney Jung MD May 22, 2017 10:13
[2017-05-22] MEDS ORDERED: PILL SPLITTER OTHER PRN (10:45)
[2017-05-22] MEDS: amLODIPine BESYLATE 5 MG TAB PO SCH (11:34)
--- NOTE | 2017-05-22 14:43 | HHI.IDPN ---
Subjective Subjective Remarks Patient is a 57-year-old male, care home resident, has had prior CVA with left-sided weakness, brought into the hospital for evaluation of altered mental status and fever. EMS was called, and apparently from the care home that tendon that found him said that he was slumped over the bed. There was fever of up to 103. When the paramedics came he was afebrile. He was apparently somewhat aggressive. There was no other history available. His initial WBC was 18,000. His CT of the head showed the evidence of previous CVA, and he had some maxillary sinusitis. He apparently had a witnessed seizure in the ED. Patient ended up getting intubated, and had a central line put in in his right IJ. His hemodynamics are currently stable. He is not on pressors. His WBC remained persistently elevated. He had some low-grade fevers overnight. Blood cultures on admission are negative so far. Urinalysis is unremarkable. Flaherty catheter was placed 05/19. Influenza testing is negative. Sputum culture is pending. Patient currently is on vancomycin, cefepime, and Zithromax. Infectious disease consultation has been requested to evaluate the patient for fevers and leukocytosis. Notes reviewed Temps ok BP ok Extubated, on nasal O2 Patient denies SOB Removes his O2 Swallowing eval - puree diet and thin liquids States he is not hungry Sputum with Pneumo and H flu, possibly PCN resistant pneumo WBC down to normal Antibiotics Vancomycin Cefepime Zithromax Current Medications Medications (Trade) Dose Ordered Sig/Mohit Route Start Time Stop Time Status Last Admin (NS Flush) 2 ml UNSCH PRN IV FLUSH 05/18/17 15:45 (NS Flush) 2 ml BID IV FLUSH 05/18/17 21:00 05/22/17 08:37 (Tylenol) 650 mg Q6H PRN PO 05/18/17 15:45 05/21/17 20:39 (Morphine Inj) 2 mg Q2H PRN PO 05/18/17 16:15 (Ativan Inj) 1 mg Q1H PRN IV PUSH 05/18/17 15:45 (Tears Naturale Opth Soln) 1 drop TID EACH EYE 05/18/17 18:00 05/22/17 08:36 (Zofran Inj) 4 mg Q6H PRN IV PUSH 05/18/17 15:45 (Duoneb Neb) 1 ampule Q6HR NEB INH 05/18/17 16:00 05/22/17 10:00 (Albuterol Neb) 2.5 mg Q2HR NEB PRN INH 05/18/17 15:45 05/22/17 07:55 (Heparin Inj) 5,000 units Q12H SQ 05/18/17 17:00 05/22/17 04:56 Miscellaneous Information 1 Q361D XX 05/18/17 15:45 (Chlorhexidine 2% Cloth) 3 pack Taper DAILY@04 TOP 05/19/17 04:00 05/15/18 03:59 05/22/17 04:00 (Chlorhexidine 2% Cloth) 3 pack UNSCH PRN TOP 05/18/17 15:45 (Kajal-Colace) 1 tab BID PO 05/18/17 21:00 05/22/17 08:36 (Milk Of Magnesia Liq) 30 ml Q12H PRN PO 05/18/17 15:45 (Senokot) 17.2 mg Q12H PRN PO 05/18/17 15:45 (Dulcolax Supp) 10 mg DAILY PRN RECTAL 05/18/17 15:45 (Lactulose Liq) 30 ml DAILY PRN PO 05/18/17 15:45 (D50w (Vial) Inj) 50 ml UNSCH PRN IV PUSH 05/18/17 15:45 05/19/17 17:15 (Glucagon Inj) 1 mg UNSCH PRN OTHER 05/18/17 15:45 (Vitamin C) 500 mg BID PO 05/18/17 21:00 05/22/17 08:36 (Ecotrin Ec) 81 mg DAILY PO 05/19/17 09:00 05/22/17 08:36 (Lipitor) 20 mg HS PO 05/18/17 21:00 05/21/17 20:39 (Remeron Soltab Odt) 15 mg HS PO 05/18/17 21:00 05/21/17 20:39 (Trandate Inj) 10 mg Q1HR PRN IV PUSH 05/18/17 16:15 05/22/17 09:05 (Apresoline Inj) 10 mg Q1HR PRN IV PUSH 05/18/17 16:15 05/21/17 02:02 (Nitroglycerin 2% Oint) 2 inch Q6H PRN TOPICAL 05/18/17 17:00 (Theragran M Tab) 1 tab DAILY PO 05/19/17 09:00 05/22/17 08:36 (Cerebyx Inj) 100 mgpe Q8HR IV 05/18/17 22:00 05/22/17 04:55 Potassium Chloride 100 ml @ 50 mls/hr Q2H PRN IV 05/18/17 17:00 Potassium Chloride 100 ml @ 50 mls/hr Q2H PRN IV 05/18/17 17:00 05/21/17 12:26 (K-Lyte Cl Eff) 50 meq UNSCH PRN PO 05/18/17 17:00 Potassium Chloride 100 ml @ 25 mls/hr UNSCH PRN IV 05/18/17 17:00 Potassium Chloride 100 ml @ 50 mls/hr Q2H PRN IV 05/18/17 17:00 Magnesium Sulfate 4 gm/Sodium Chloride 100 ml @ 50 mls/hr UNSCH PRN IV 05/18/17 17:00 (Mag-Ox) 800 mg UNSCH PRN PO 05/18/17 17:00 Magnesium Sulfate 2 gm/Sodium Chloride 100 ml @ 50 mls/hr UNSCH PRN IV 05/18/17 17:00 (K-Phos) 2,000 mg Q4H PRN PO 05/18/17 17:00 Sodium Phosphate 30 mmol/Sodium Chloride 250 ml @ 42 mls/hr UNSCH PRN IV 05/18/17 17:00 05/21/17 08:21 (K-Phos) 2,000 mg UNSCH PRN PO/TUBE 05/18/17 17:00 Potassium Phosphate 30 mmol/ Sodium Chloride 260 ml @ 42 mls/hr UNSCH PRN IV 05/18/17 17:00 05/20/17 05:45 (Peridex 0.12% Liq) 15 ml BID@08,20 MT 05/18/17 20:00 05/22/17 08:37 Propofol 100 ml @ 0 mls/hr TITRATE PRN IV 05/18/17 18:00 Future Hold 05/22/17 05:45 Fentanyl Citrate 250 ml @ 5 mls/hr TITRATE PRN IV 05/18/17 18:00 Future Hold (NS Flush) DAILY IV FLUSH 05/19/17 09:00 05/22/17 08:37 (NS Flush) UNSCH PRN IV FLUSH 05/18/17 19:00 (NovoLIN R SUPPLEMENTAL SCALE) 1 Q6HR SQ 05/19/17 12:00 05/22/17 05:30 (Beneprotein Powder) 1 pack TID G-TUBE 05/19/17 13:00 05/22/17 13:00 (Pepcid Liq) 20 mg BID NG 05/19/17 21:00 05/22/17 08:36 (Coreg) 6.25 mg Q12HR PO 05/19/17 21:00 05/22/17 08:36 (Catapres) 0.1 mg Q6H PRN PO 05/19/17 11:45 Pharmacy Profile Note 0 ml @ 0 mls/hr UNSCH OTHER 05/20/17 19:15 Cefepime HCl 2000 mg/Sodium Chloride 100 ml @ 200 mls/hr Q8HR IV 05/20/17 22:00 05/22/17 04:55 Vancomycin HCl 500 mg/Sodium Chloride 100 ml @ 200 mls/hr Q24H IV 05/21/17 23:00 05/21/17 22:49 Miscellaneous Information SPECIFIC LAB TO BE DRAWN:VANCO TROUGH DATE TO... ONCE ONCE .XX 05/23/17 22:45 05/23/17 22:46 Azithromycin 250 mg/Sodium Chloride 250 ml @ 250 mls/hr Q24H IV 05/20/17 23:00 05/21/17 23:00 (Trandate Inj) 10 mg Q4H PRN IV PUSH 05/21/17 17:15 Dexmedetomidine HCl 200 mcg/ Sodium Chloride 52 ml @ 2.24 mls/hr TITRATE PRN IV 05/22/17 07:00 05/22/17 08:38 ([place] 7.5-325 Mg) 1 tab Q4H PRN PO 05/21/17 17:15 05/21/17 20:40 (Norvasc) 7.5 mg DAILY PO 05/22/17 10:15 05/22/17 11:34 (Pill Splitter) 1 ea UNSCH PRN OTHER 05/22/17 10:45 Lines Line with no evidence of infection Past Medical History Right frontal parietal CVA Right internal carotid artery occlusion Depression disorder NOS Essential hypertension Hyperlipidemia Osteoarthritis Chronic left heel ulcer Peripheral vascular disease with multiple occlusion of bilateral lower extremities Chronic systolic heart failure ejection fraction 35-40% Tobaccoism Esophagitis Past Surgical History Right thoracotomy/chest tube Left heel ulcer right eye right ankle debridement Allergies: Coded Allergies: No Known Allergies (Verified Allergy, Unknown, 02/08/17) Objective . Vital Signs Date Time Temp Pulse Resp B/P (MAP) Pulse Ox O2 Delivery O2 Flow Rate FiO2 05/22/17 14:00 77 05/22/17 12:00 98.9 74 16 141/72 (95) 95 05/22/17 12:00 74 05/22/17 10:30 97 Nasal Cannula 4 05/22/17 10:27 95 Nasal Cannula 4.00 05/22/17 10:00 70 05/22/17 08:15 30 05/22/17 08:00 75 05/22/17 08:00 98.0 75 18 198/90 (126) 100 05/22/17 08:00 30 05/22/17 07:45 30 05/22/17 07:45 94 30 05/22/17 06:00 66 05/22/17 04:16 97 30 05/22/17 04:00 99.4 71 17 177/78 (111) 93 05/22/17 04:00 30 05/22/17 04:00 71 05/22/17 02:00 68 05/22/17 00:51 99 30 05/22/17 00:00 66 05/22/17 00:00 30 05/22/17 00:00 99.2 66 14 176/81 (112) 99 05/21/17 22:00 69 05/21/17 21:48 18 05/21/17 21:48 18 05/21/17 21:15 98 30 05/21/17 20:00 99.8 82 20 181/81 (114) 05/21/17 20:00 30 05/21/17 20:00 82 05/21/17 18:00 79 05/21/17 16:42 97 30 05/21/17 16:00 35 05/21/17 16:00 98.0 74 15 140/69 (92) 99 05/21/17 16:00 74 05/22/17 05/22/17 05/23/17 15:00 23:00 07:00 Intake Total 398 ml Balance 398 ml Intake IV Total 101 ml Tube Feeding 117 ml Tube Irrigant 180 ml . Laboratory Tests Test 05/21/17 03:15 05/22/17 04:40 White Blood Count 16.8 TH/MM3 10.7 TH/MM3 Red Blood Count 3.11 MIL/MM3 2.80 MIL/MM3 Hemoglobin 9.2 GM/DL 8.4 GM/DL Hematocrit 28.2 % 25.4 % Mean Corpuscular Volume 90.5 FL 90.9 FL Mean Corpuscular Hemoglobin 29.7 PG 30.1 PG Mean Corpuscular Hemoglobin Concent 32.8 % 33.1 % Red Cell Distribution Width 15.0 % 15.4 % Platelet Count 225 TH/MM3 206 TH/MM3 Mean Platelet Volume 8.6 FL 8.4 FL Neutrophils (%) (Auto) 91.1 % 81.4 % Lymphocytes (%) (Auto) 5.0 % 8.4 % Monocytes (%) (Auto) 3.4 % 4.7 % Eosinophils (%) (Auto) 0.2 % 4.8 % Basophils (%) (Auto) 0.3 % 0.7 % Neutrophils # (Auto) 15.3 TH/MM3 8.7 TH/MM3 Lymphocytes # (Auto) 0.8 TH/MM3 0.9 TH/MM3 Monocytes # (Auto) 0.6 TH/MM3 0.5 TH/MM3 Eosinophils # (Auto) 0.0 TH/MM3 0.5 TH/MM3 Basophils # (Auto) 0.0 TH/MM3 0.1 TH/MM3 CBC Comment DIFF FINAL DIFF FINAL Differential Comment Laboratory Tests Test 05/20/17 18:30 05/21/17 01:05 05/21/17 20:00 05/22/17 04:40 Potassium Level 3.4 MEQ/L 2.9 MEQ/L 3.3 MEQ/L 4.6 MEQ/L Phosphorus Level 2.6 MG/DL 1.9 MG/DL 2.5 MG/DL Blood Urea Nitrogen 22 MG/DL 20 MG/DL Creatinine 1.00 MG/DL 1.04 MG/DL Random Glucose 112 MG/DL 182 MG/DL Total Protein 5.5 GM/DL Albumin 1.9 GM/DL Calcium Level 7.5 MG/DL 8.1 MG/DL Magnesium Level 1.9 MG/DL Alkaline Phosphatase 76 U/L Aspartate Amino Transf (AST/SGOT) 30 U/L Alanine Aminotransferase (ALT/SGPT) 26 U/L Total Bilirubin 0.2 MG/DL Sodium Level 147 MEQ/L 146 MEQ/L Chloride Level 116 MEQ/L 119 MEQ/L Carbon Dioxide Level 24.5 MEQ/L 22.6 MEQ/L Anion Gap 7 MEQ/L 4 MEQ/L Estimat Glomerular Filtration Rate 77 ML/MIN 74 ML/MIN Microbiology Date/Time Source Procedure Growth Status 05/21/17 11:45 Blood Peripheral Aerobic Blood Culture - Preliminary NO GROWTH IN 1 DAY Resulted 05/21/17 11:45 Blood Peripheral Anaerobic Blood Culture - Preliminary NO GROWTH IN 1 DAY Resulted 05/21/17 10:50 Blood Line Aerobic Blood Culture - Preliminary NO GROWTH IN 1 DAY Resulted 05/21/17 10:50 Blood Line Anaerobic Blood Culture - Preliminary NO GROWTH IN 1 DAY Resulted 05/21/17 01:10 Nasal Washing Influenza Types A,B Antigen (LAZARO) - Final NEGATIVE FOR FLU A AND B ANTIGEN.... Complete 05/20/17 19:58 Sputum Endotracheal Gram Stain - Final Resulted 05/20/17 19:58 Sputum Culture - Preliminary Streptococcus Pneumoniae Haemophilus Influenzae Resulted 05/21/17 10:50 Urine Catheterized Urine Urine Culture - Preliminary NO GROWTH IN 24 HOURS. Resulted 05/21/17 10:50 Urine Catheterized Urine Legionella Antigen - Final PRESUMPTIVE NEGATIVE FOR LEGIONELLA P... Complete 05/21/17 10:50 Urine Catheterized Urine Streptococcus pneumoniae Antigen (M - Final PRESUMPTIVE NEGATIVE FOR STREPTOCOCCU... Complete Imaging Last Impressions Chest X-Ray 05/22/17 0600 Signed Impressions: Service Date/Time: Monday, May 22, 2017 04:23 - CONCLUSION: Bilateral air space opacities are slightly worse. Otherwise no significant change. Lacho Shi MD Renal Ultrasound 05/19/17 0000 Signed Impressions: Service Date/Time: Friday, May 19, 2017 14:07 - CONCLUSION: Atrophic right kidney. Left kidney is unremarkable. Flaherty catheter in place. Lacho Morel MD Brain MRI 05/19/17 0000 Signed Impressions: Service Date/Time: Friday, May 19, 2017 08:27 - CONCLUSION: Old infarcts and extensive white matter disease. Marked atrophy without mass effect. Negative for acute ischemic event Galen Beal MD FACR Head CT 05/18/17 1218 Signed Impressions: Service Date/Time: Thursday, May 18, 2017 14:10 - CONCLUSION: 1. Although chronic appearing, there is interval worsening in the encephalomalacia changes in the right frontoparietal region as detailed above. Exvacuo dilatation of the adjacent ventricular system. 2. Nothing acute. 3. Severe chronic sinusitis the right maxillary antrum. Michael Cruz MD Physical Exam GENERAL: Awake, alert, NAD on nasal O2, speech is clear SKIN: Warm and dry. No generalized rash, no ecchymoses and no evidence of embolic lesions. HEAD: Atraumatic. Normocephalic. No temporal wasting, or tenderness. EYES: [place] conjunctiva. No petechia or hemorrhage. Pupils equal, round and reactive to light. No scleral icterus. No injection or drainage. EARS, NOSE AND THROAT: Nose without bleeding or purulent nasal discharge. Moist mucosa NECK: Trachea midline. Supple and not tender, no meningeal signs CARDIOVASCULAR: Regular rate and rhythm. No murmurs, rubs or gallops heard RESPIRATORY: Coarse breath sounds bilaterally, decreased at the bases. No rales, wheezing or rhonchi ABDOMEN: Soft, flat, nondistended, bowel sounds present and normoactive. No guarding. No rebound. He did some grimacing during abdominal palpation. No organomegaly. EXTREMITIES: No clubbing, cyanosis, or edema. No joint effusion. His lower extremities are contracted. Well perfused and warm. NEUROLOGICAL: awake and alert PSYCHIATRIC: cooperative LINE: No evidence of infection RIJ : Flaherty catheter in place, with very small amount of sediment Assessment & Plan Remarks IMPRESSION Sepsis, fevers and luekocytosis, and altered mental status - likely due to PNA - came from [facility] ok; has had increased PVR and required flaherty 05/19 - C/S Pneumococcus and H flu Pneumonia, Pneumococcus and H flu Respiratory failure, extubated today and doing well so far Previous CVA with L sided weakness Renal insufficiency, better Leukocytosis, resolved RECOMMENDATION Continue empiric Abx; Cefepime (GNR coverage), vanco (MRSA coverage) and Zithromax (Atypical coverage Follow C/S Monitor temps Follow CBC Monitor progress Celine Villarreal MD May 22, 2017 14:43
[2017-05-22] MEDS: AZITHROMYCIN 250 MG TAB PO SCH (16:14)
[2017-05-22] MEDS: MIRTAZAPINE ODT 15 MG TAB PO SCH (20:34)
[2017-05-22] MEDS: ATORVASTATIN 20 MG TAB PO SCH (20:36)
[2017-05-22] MEDS: VANCOMYCIN 500 MG/NS 100 ML IV SCH ×2 (23:32)
[2017-05-23] VITALS (15 sets, daily range): BP systolic 141–177; BP diastolic 70–84; PULSE 73–91; RESP 15–30; TEMP 98–99.1; O2SAT 92–100
[2017-05-23] MEDS: RESP: ALBUTEROL 2.5 MG/3 ML NEB (PRN) INH (00:47)
[2017-05-23] MEDS: LABETALOL HCL 100 MG/20 ML VIAL IV PUSH PRN ×3 (01:06→22:18)
[2017-05-23] MEDS: CHLORHEXIDINE GLUCONATE 2 % 1 PACK (2 CLOTHS) TOP SCH (04:00)
[2017-05-23] MEDS: hydrALAZINE HCL 20 MG/ML VIAL IV PUSH PRN (04:33)
[2017-05-23] MEDS: HEPARIN SODIUM - SQ 10,000 UNITS/ML VIAL SQ SCH ×2 (04:33→17:03)
[2017-05-23] MEDS: CEFEPIME INJ 2,000 MG in SODIUM CHLORIDE 0.9% INJ 100 ML IV SCH (05:22)
[2017-05-23] MEDS: FOSPHENYTOIN SODIUM 100 MG PE/2 ML VIAL IV SCH ×3 (05:23→21:11)
[2017-05-23] MEDS: INSULIN NovoLIN REGULAR SUPPLEMENTAL SCALE SQ SCH ×4 (05:25→18:00)
[2017-05-23] MEDS: CHLORHEXIDINE 0.12% (ORAL KIT) 15 ML CUP MT SCH ×2 (08:00→21:11)
[2017-05-23] MEDS: MULTIVITAMINS/MINERALS THERAPEUTIC TAB PO SCH (08:21)
[2017-05-23] MEDS: DOCUSATE SODIUM 50 MG/SENNA 8.6 MG TAB PO SCH ×2 (08:21→21:10)
[2017-05-23] MEDS: ASCORBIC ACID 500 MG TAB PO SCH ×2 (08:22→21:10)
[2017-05-23] MEDS: ASPIRIN EC 81 MG TABEC PO SCH (08:22)
[2017-05-23] MEDS: amLODIPine BESYLATE 5 MG TAB PO SCH (08:22)
[2017-05-23] MEDS: CARVEDILOL 3.125 MG TAB PO SCH ×2 (08:23→21:10)
[2017-05-23] MEDS: AZITHROMYCIN 250 MG TAB PO SCH (08:23)
[2017-05-23] MEDS: SODIUM CHLORIDE 0.9% FLUSH 10 ML FLUSH IV FLUSH SCH ×3 (08:23→21:11)
[2017-05-23] MEDS: ARTIFICIAL TEARS OPTH SOLN 15 ML BTL EACH EYE SCH ×3 (08:23→17:03)
[2017-05-23] MEDS: FAMOTIDINE 40 MG/5 ML LIQ 50 ML BTL NG SCH ×2 (08:24→21:11)
--- NOTE | 2017-05-23 09:19 | HHI.IDPN ---
Subjective Subjective Remarks Patient is a 57-year-old male, custodial resident, has had prior CVA with left-sided weakness, brought into the hospital for evaluation of altered mental status and fever. EMS was called, and apparently from the custodial that tendon that found him said that he was slumped over the bed. There was fever of up to 103. When the paramedics came he was afebrile. He was apparently somewhat aggressive. There was no other history available. His initial WBC was 18,000. His CT of the head showed the evidence of previous CVA, and he had some maxillary sinusitis. He apparently had a witnessed seizure in the ED. Patient ended up getting intubated, and had a central line put in in his right IJ. His hemodynamics are currently stable. He is not on pressors. His WBC remained persistently elevated. He had some low-grade fevers overnight. Blood cultures on admission are negative so far. Urinalysis is unremarkable. Flaherty catheter was placed 05/19. Influenza testing is negative. Sputum culture is pending. Patient currently is on vancomycin, cefepime, and Zithromax. Infectious disease consultation has been requested to evaluate the patient for fevers and leukocytosis. Notes reviewed Temps ok BP ok Required BIPAP overnight, on FM this morning Denies SOB Swallowing eval - puree diet and thin liquids States he is not hungry Sputum with Pneumo and H flu, PCN resistant pneumo WBC down to normal CXR yesterday worse Antibiotics Vancomycin Cefepime Zithromax Current Medications Medications (Trade) Dose Ordered Sig/Mohit Route Start Time Stop Time Status Last Admin (NS Flush) 2 ml UNSCH PRN IV FLUSH 05/18/17 15:45 (NS Flush) 2 ml BID IV FLUSH 05/18/17 21:00 05/23/17 08:23 (Tylenol) 650 mg Q6H PRN PO 05/18/17 15:45 05/21/17 20:39 (Tears Naturale Opth Soln) 1 drop TID EACH EYE 05/18/17 18:00 05/23/17 08:23 (Zofran Inj) 4 mg Q6H PRN IV PUSH 05/18/17 15:45 (Albuterol Neb) 2.5 mg Q2HR NEB PRN INH 05/18/17 15:45 05/23/17 00:47 (Heparin Inj) 5,000 units Q12H SQ 05/18/17 17:00 05/23/17 04:33 Miscellaneous Information 1 Q361D XX 05/18/17 15:45 (Chlorhexidine 2% Cloth) 3 pack Taper DAILY@04 TOP 05/19/17 04:00 05/15/18 03:59 05/23/17 04:00 (Chlorhexidine 2% Cloth) 3 pack UNSCH PRN TOP 05/18/17 15:45 (Kajal-Colace) 1 tab BID PO 05/18/17 21:00 05/23/17 08:21 (Milk Of Magnesia Liq) 30 ml Q12H PRN PO 05/18/17 15:45 (Senokot) 17.2 mg Q12H PRN PO 05/18/17 15:45 (Dulcolax Supp) 10 mg DAILY PRN RECTAL 05/18/17 15:45 (Lactulose Liq) 30 ml DAILY PRN PO 05/18/17 15:45 (D50w (Vial) Inj) 50 ml UNSCH PRN IV PUSH 05/18/17 15:45 05/19/17 17:15 (Glucagon Inj) 1 mg UNSCH PRN OTHER 05/18/17 15:45 (Vitamin C) 500 mg BID PO 05/18/17 21:00 05/23/17 08:22 (Ecotrin Ec) 81 mg DAILY PO 05/19/17 09:00 05/23/17 08:22 (Lipitor) 20 mg HS PO 05/18/17 21:00 05/22/17 20:36 (Remeron Soltab Odt) 15 mg HS PO 05/18/17 21:00 05/22/17 20:34 (Trandate Inj) 10 mg Q1HR PRN IV PUSH 05/18/17 16:15 05/23/17 01:06 (Apresoline Inj) 10 mg Q1HR PRN IV PUSH 05/18/17 16:15 05/23/17 04:33 (Nitroglycerin 2% Oint) 2 inch Q6H PRN TOPICAL 05/18/17 17:00 (Theragran M Tab) 1 tab DAILY PO 05/19/17 09:00 05/23/17 08:21 (Cerebyx Inj) 100 mgpe Q8HR IV 05/18/17 22:00 05/23/17 05:23 Potassium Chloride 100 ml @ 50 mls/hr Q2H PRN IV 05/18/17 17:00 Potassium Chloride 100 ml @ 50 mls/hr Q2H PRN IV 05/18/17 17:00 05/21/17 12:26 (K-Lyte Cl Eff) 50 meq UNSCH PRN PO 05/18/17 17:00 Potassium Chloride 100 ml @ 25 mls/hr UNSCH PRN IV 05/18/17 17:00 Potassium Chloride 100 ml @ 50 mls/hr Q2H PRN IV 05/18/17 17:00 Magnesium Sulfate 4 gm/Sodium Chloride 100 ml @ 50 mls/hr UNSCH PRN IV 05/18/17 17:00 (Mag-Ox) 800 mg UNSCH PRN PO 05/18/17 17:00 Magnesium Sulfate 2 gm/Sodium Chloride 100 ml @ 50 mls/hr UNSCH PRN IV 05/18/17 17:00 (K-Phos) 2,000 mg Q4H PRN PO 05/18/17 17:00 Sodium Phosphate 30 mmol/Sodium Chloride 250 ml @ 42 mls/hr UNSCH PRN IV 05/18/17 17:00 05/21/17 08:21 (K-Phos) 2,000 mg UNSCH PRN PO/TUBE 05/18/17 17:00 Potassium Phosphate 30 mmol/ Sodium Chloride 260 ml @ 42 mls/hr UNSCH PRN IV 05/18/17 17:00 05/20/17 05:45 (Peridex 0.12% Liq) 15 ml BID@08,20 MT 05/18/17 20:00 05/22/17 20:37 Propofol 100 ml @ 0 mls/hr TITRATE PRN IV 05/18/17 18:00 Future Hold 05/22/17 05:45 Fentanyl Citrate 250 ml @ 5 mls/hr TITRATE PRN IV 05/18/17 18:00 Future Hold (NS Flush) DAILY IV FLUSH 05/19/17 09:00 05/23/17 08:24 (NS Flush) UNSCH PRN IV FLUSH 05/18/17 19:00 (NovoLIN R SUPPLEMENTAL SCALE) 1 Q6HR SQ 05/19/17 12:00 05/22/17 05:30 (Pepcid Liq) 20 mg BID NG 05/19/17 21:00 05/23/17 08:24 (Coreg) 6.25 mg Q12HR PO 05/19/17 21:00 05/23/17 08:23 (Catapres) 0.1 mg Q6H PRN PO 05/19/17 11:45 Pharmacy Profile Note 0 ml @ 0 mls/hr UNSCH OTHER 05/20/17 19:15 Cefepime HCl 2000 mg/Sodium Chloride 100 ml @ 200 mls/hr Q8HR IV 05/20/17 22:00 05/23/17 05:22 Vancomycin HCl 500 mg/Sodium Chloride 100 ml @ 200 mls/hr Q24H IV 05/21/17 23:00 05/22/17 23:32 Miscellaneous Information SPECIFIC LAB TO BE DRAWN:VANCO TROUGH DATE TO... ONCE ONCE .XX 05/23/17 22:45 05/23/17 22:46 (Trandate Inj) 10 mg Q4H PRN IV PUSH 05/21/17 17:15 (Norvasc) 7.5 mg DAILY PO 05/22/17 10:15 05/23/17 08:22 (Pill Splitter) 1 ea UNSCH PRN OTHER 05/22/17 10:45 (Zithromax) 500 mg DAILY PO 05/22/17 15:00 05/23/17 08:23 Lines Line with no evidence of infection Past Medical History Right frontal parietal CVA Right internal carotid artery occlusion Depression disorder NOS Essential hypertension Hyperlipidemia Osteoarthritis Chronic left heel ulcer Peripheral vascular disease with multiple occlusion of bilateral lower extremities Chronic systolic heart failure ejection fraction 35-40% Tobaccoism Esophagitis Past Surgical History Right thoracotomy/chest tube Left heel ulcer right eye right ankle debridement Allergies: Coded Allergies: No Known Allergies (Verified Allergy, Unknown, 02/08/17) Objective . Vital Signs Date Time Temp Pulse Resp B/P (MAP) Pulse Ox O2 Delivery O2 Flow Rate FiO2 05/23/17 07:45 96 Venturi Mask 6.00 50 05/23/17 07:00 97 Bi-Pap 50 05/23/17 06:00 86 05/23/17 04:00 98.0 78 15 175/78 (110) 100 05/23/17 04:00 78 05/23/17 02:00 73 05/23/17 00:48 95 50 05/23/17 00:00 76 05/23/17 00:00 98.3 76 18 177/84 (115) 94 05/22/17 22:40 94 BiPAP 50 05/22/17 22:30 94 50 05/22/17 22:00 76 05/22/17 20:00 78 05/22/17 20:00 98.1 78 16 171/60 (97) 99 05/22/17 19:00 99 Bi-Pap 50 05/22/17 18:02 100 Bi-Pap 100 05/22/17 18:00 78 05/22/17 17:40 97 90 05/22/17 16:00 79 05/22/17 16:00 97.9 79 32 155/79 (104) 92 05/22/17 15:53 97 Nasal Cannula 4.00 05/22/17 14:00 77 05/22/17 12:00 98.9 74 16 141/72 (95) 95 05/22/17 12:00 74 05/22/17 10:30 97 Nasal Cannula 4 05/22/17 10:27 95 Nasal Cannula 4.00 05/22/17 10:00 70 . Laboratory Tests Test 05/22/17 04:40 White Blood Count 10.7 TH/MM3 Red Blood Count 2.80 MIL/MM3 Hemoglobin 8.4 GM/DL Hematocrit 25.4 % Mean Corpuscular Volume 90.9 FL Mean Corpuscular Hemoglobin 30.1 PG Mean Corpuscular Hemoglobin Concent 33.1 % Red Cell Distribution Width 15.4 % Platelet Count 206 TH/MM3 Mean Platelet Volume 8.4 FL Neutrophils (%) (Auto) 81.4 % Lymphocytes (%) (Auto) 8.4 % Monocytes (%) (Auto) 4.7 % Eosinophils (%) (Auto) 4.8 % Basophils (%) (Auto) 0.7 % Neutrophils # (Auto) 8.7 TH/MM3 Lymphocytes # (Auto) 0.9 TH/MM3 Monocytes # (Auto) 0.5 TH/MM3 Eosinophils # (Auto) 0.5 TH/MM3 Basophils # (Auto) 0.1 TH/MM3 CBC Comment DIFF FINAL Differential Comment Laboratory Tests Test 05/21/17 20:00 05/22/17 04:40 Potassium Level 3.3 MEQ/L 4.6 MEQ/L Phosphorus Level 2.5 MG/DL Blood Urea Nitrogen 20 MG/DL Creatinine 1.04 MG/DL Random Glucose 182 MG/DL Calcium Level 8.1 MG/DL Sodium Level 146 MEQ/L Chloride Level 119 MEQ/L Carbon Dioxide Level 22.6 MEQ/L Anion Gap 4 MEQ/L Estimat Glomerular Filtration Rate 74 ML/MIN Microbiology Date/Time Source Procedure Growth Status 05/21/17 11:45 Blood Peripheral Aerobic Blood Culture - Preliminary NO GROWTH IN 1 DAY Resulted 05/21/17 11:45 Blood Peripheral Anaerobic Blood Culture - Preliminary NO GROWTH IN 1 DAY Resulted 05/21/17 10:50 Blood Line Aerobic Blood Culture - Preliminary NO GROWTH IN 1 DAY Resulted 05/21/17 10:50 Blood Line Anaerobic Blood Culture - Preliminary NO GROWTH IN 1 DAY Resulted 05/21/17 01:10 Nasal Washing Influenza Types A,B Antigen (LAZARO) - Final NEGATIVE FOR FLU A AND B ANTIGEN.... Complete 05/20/17 19:58 Sputum Endotracheal Gram Stain - Final Complete 05/20/17 19:58 Sputum Culture - Final Streptococcus Pneumoniae Haemophilus Influenzae Complete 05/21/17 10:50 Urine Catheterized Urine Urine Culture - Preliminary NO GROWTH IN 24 HOURS. Resulted 05/21/17 10:50 Urine Catheterized Urine Legionella Antigen - Final PRESUMPTIVE NEGATIVE FOR LEGIONELLA P... Complete 05/21/17 10:50 Urine Catheterized Urine Streptococcus pneumoniae Antigen (M - Final PRESUMPTIVE NEGATIVE FOR STREPTOCOCCU... Complete Imaging Last Impressions Chest X-Ray 05/22/17 0600 Signed Impressions: Service Date/Time: Monday, May 22, 2017 04:23 - CONCLUSION: Bilateral air space opacities are slightly worse. Otherwise no significant change. Lacho Shi MD Renal Ultrasound 05/19/17 0000 Signed Impressions: Service Date/Time: Friday, May 19, 2017 14:07 - CONCLUSION: Atrophic right kidney. Left kidney is unremarkable. Flaherty catheter in place. Lacho Morel MD Brain MRI 05/19/17 0000 Signed Impressions: Service Date/Time: Friday, May 19, 2017 08:27 - CONCLUSION: Old infarcts and extensive white matter disease. Marked atrophy without mass effect. Negative for acute ischemic event Galen Beal MD FACR Head CT 05/18/17 1218 Signed Impressions: Service Date/Time: Thursday, May 18, 2017 14:10 - CONCLUSION: 1. Although chronic appearing, there is interval worsening in the encephalomalacia changes in the right frontoparietal region as detailed above. Exvacuo dilatation of the adjacent ventricular system. 2. Nothing acute. 3. Severe chronic sinusitis the right maxillary antrum. Michael Cruz MD Physical Exam GENERAL: Awake, alert, NAD on FM, speech is clear SKIN: Warm and dry. No generalized rash, no ecchymoses and no evidence of embolic lesions. HEAD: Atraumatic. Normocephalic. No temporal wasting, or tenderness. EYES: Sidney conjunctiva. No petechia or hemorrhage. Pupils equal, round and reactive to light. No scleral icterus. No injection or drainage. EARS, NOSE AND THROAT: Nose without bleeding or purulent nasal discharge. Flushed cheeks NECK: Trachea midline. Supple and not tender, no meningeal signs CARDIOVASCULAR: Regular rate and rhythm. No murmurs, rubs or gallops heard RESPIRATORY: Coarse breath sounds bilaterally, decreased at the bases. No rales, wheezing or rhonchi ABDOMEN: Soft, flat, nondistended, bowel sounds present and normoactive. No guarding. No rebound. He did some grimacing during abdominal palpation. No organomegaly. EXTREMITIES: No clubbing, cyanosis, or edema. No joint effusion. His lower extremities are contracted. Well perfused and warm. NEUROLOGICAL: awake and alert. L sided paralysis, contracted. Decreased nasolabial fold on L PSYCHIATRIC: cooperative LINE: No evidence of infection RIJ : Flaherty catheter in place, with very small amount of sediment Assessment & Plan Remarks IMPRESSION Sepsis, fevers and leukocytosis, and altered mental status - likely due to PNA - came from [facility] ok; has had increased PVR and required flaherty 05/19 - C/S Pneumococcus and H flu Pneumonia, Pneumococcus and H flu Respiratory failure, extubated today - requiring increased O2 Previous CVA with L sided weakness Renal insufficiency, better Leukocytosis, resolved RECOMMENDATION Change Abx to Rocephin Also on Zithromax Monitor temps Follow CBC Monitor respiratory status Monitor progress Celine Villarreal MD May 23, 2017 09:19
--- NOTE | 2017-05-23 09:38 | HHI.CCPN ---
Subjective Remarks/Hospital Course 57-year-old male. Date of admission 05/18/2017. 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 Today, he presents to [facility] ED from the senior living with complaints of altered mental status and reported fever. According to documentation from ED visit, the paramedics documented that the senior livinghome energy rater stated that they found him slumped over the bed. They reported that he had decreased mental status. They also reported a fever of 103. When paramedics arrived, they found him to be with normal temperature. He did appear altered and somewhat aggressive. There is no other further history elicited. Patient had a white blood cell count of 18,000. Potassium 2.5. Elevated troponin 0 0.24. EKG currently pending. CT brain revealed subtle increased right frontal parietal temporal changes with ex vacuo dilatation of the ventricles. Right maxillary sinusitis. Patient had a witnessed seizure in the ED was given 1 g of fosphenytoin and 2 mg of midazolam. He is also received 1.5 L normal saline and is placed on potassium protocol for potassium 2.5. Magnesium is currently pending. Subjective 05/19: Afebrile. MRI brain revealed old right MCA CVA with scattered white matter changes. No acute infarct. EEG pending. Hemodynamically stable. Potassium actively being replaced. A.m. laboratories currently pending. 05/20: Late entry note.Afebrile. No acute events overnight. Noted WBC increased. Sputum culture pending. ID consulted. 05/21: Late entry note. Patient seen at 11 AM. Patient tolerates CPAP trials for approximately 3 hours. Plan for transition to Precedex for vent weaning. Upon sedation vacation patient following commands right upper and lower extremities, nodding head yes and no questions. 05/22: T-max 99.4. Sputum culture revealed strep pneumonia. ID following. Patient continues on CPAP trials on the Precedex. SBT parameters successful plan for extubation this a.m. Patient hypertensive during the evening resumed Norvasc the same. 05/23: Afebrile. The patient was successfully extubated yesterday afternoon the patient was maintained on BiPAP throughout the night the patient has been weaned to Ventimask this a.m. at 50% O2 saturation 92-95%. Pulmonology has been consulted for further management. Objective Vital Signs Date Time Temp Pulse Resp B/P (MAP) Pulse Ox O2 Delivery O2 Flow Rate FiO2 05/23/17 07:45 96 Venturi Mask 6.00 50 05/23/17 06:00 86 05/23/17 04:00 98.0 15 175/78 (110) Intake and Output 05/23/17 05/23/17 05/24/17 08:00 16:00 00:00 Intake Total 200 ml Output Total 1100 ml Balance -900 ml Result Diagram: 05/22/17 0440 05/22/17 0440 Other Results Microbiology Date/Time Source Procedure Growth Status 05/21/17 01:10 Nasal Washing Influenza Types A,B Antigen (LAZARO) - Final NEGATIVE FOR FLU A AND B ANTIGEN.... Complete 05/20/17 19:58 Sputum Endotracheal Gram Stain - Final Complete 05/20/17 19:58 Sputum Culture - Final Streptococcus Pneumoniae Haemophilus Influenzae Complete 05/21/17 10:50 Urine Catheterized Urine Urine Culture - Final NO GROWTH IN 48 HOURS. Complete 05/21/17 10:50 Urine Catheterized Urine Legionella Antigen - Final PRESUMPTIVE NEGATIVE FOR LEGIONELLA P... Complete 05/21/17 10:50 Urine Catheterized Urine Streptococcus pneumoniae Antigen (M - Final PRESUMPTIVE NEGATIVE FOR STREPTOCOCCU... Complete Laboratory Tests Test 05/22/17 09:55 05/22/17 17:10 Blood Gas Puncture Site RT RADIAL RT RADIAL Blood Gas Patient Temperature 98.6 98.6 Blood Gas HCO3 21 mmol/L (22-26) 22 mmol/L (22-26) Blood Gas Base Excess -2.6 mmol/L (-2-2) -1.1 mmol/L (-2-2) Blood Gas Oxygen Saturation 93 % (90-100) 82 % (90-100) Arterial Blood pH 7.43 (7.380-7.420) 7.47 (7.380-7.420) Arterial Blood Partial Pressure CO2 32 mmHg (38-42) 30 mmHg (38-42) Arterial Blood Partial Pressure O2 76 mmHg (61-120) 47 mmHg (61-120) Arterial Blood Oxygen Content 13.4 Vol % (12.0-20.0) 10.5 Vol % (12.0-20.0) Arterial Blood Carboxyhemoglobin 1.1 % (0-4) 1.2 % (0-4) Arterial Blood Methemoglobin 1.5 % (0-2) 1.3 % (0-2) Blood Gas Hemoglobin 10.2 G/DL (12.0-16.0) 9.2 G/DL (12.0-16.0) Oxygen Delivery Device VENTILATOR NASAL CANNULA Blood Gas Ventilator Setting [id number] Blood Gas Inspired Oxygen 30 % Blood Gas Liter Flow 5 L/M Imaging Last Impressions Chest X-Ray 05/22/17 0600 Signed Impressions: Service Date/Time: Monday, May 22, 2017 04:23 - CONCLUSION: Bilateral air space opacities are slightly worse. Otherwise no significant change. Lacho Shi MD Renal Ultrasound 05/19/17 0000 Signed Impressions: Service Date/Time: Friday, May 19, 2017 14:07 - CONCLUSION: Atrophic right kidney. Left kidney is unremarkable. Millard catheter in place. Lacho Morel MD Brain MRI 05/19/17 0000 Signed Impressions: Service Date/Time: Friday, May 19, 2017 08:27 - CONCLUSION: Old infarcts and extensive white matter disease. Marked atrophy without mass effect. Negative for acute ischemic event Galen Beal MD FACR Head CT 05/18/17 1218 Signed Impressions: Service Date/Time: Thursday, May 18, 2017 14:10 - CONCLUSION: 1. Although chronic appearing, there is interval worsening in the encephalomalacia changes in the right frontoparietal region as detailed above. Exvacuo dilatation of the adjacent ventricular system. 2. Nothing acute. 3. Severe chronic sinusitis the right maxillary antrum. Michael Cruz MD Last Impressions Chest X-Ray 05/21/17 0600 Signed Impressions: Service Date/Time: Sunday, May 21, 2017 03:32 - CONCLUSION: Mild lateral perihilar infiltrates are developing. Lacho Shi MD Renal Ultrasound 05/19/17 0000 Signed Impressions: Service Date/Time: Friday, May 19, 2017 14:07 - CONCLUSION: Atrophic right kidney. Left kidney is unremarkable. Millard catheter in place. Lacho Morel MD Brain MRI 05/19/17 0000 Signed Impressions: Service Date/Time: Friday, May 19, 2017 08:27 - CONCLUSION: Old infarcts and extensive white matter disease. Marked atrophy without mass effect. Negative for acute ischemic event Galen Beal MD FACR Head CT 05/18/17 1218 Signed Impressions: Service Date/Time: Thursday, May 18, 2017 14:10 - CONCLUSION: 1. Although chronic appearing, there is interval worsening in the encephalomalacia changes in the right frontoparietal region as detailed above. Exvacuo dilatation of the adjacent ventricular system. 2. Nothing acute. 3. Severe chronic sinusitis the right maxillary antrum. Michael Cruz MD Last Impressions Chest X-Ray 05/20/17 0600 Signed Impressions: Service Date/Time: Saturday, May 20, 2017 03:48 - CONCLUSION: Left Perihilar edema versus pneumonia. This is new when compared with the prior exam. Josiah Membreno MD Renal Ultrasound 05/19/17 0000 Signed Impressions: Service Date/Time: Friday, May 19, 2017 14:07 - CONCLUSION: Atrophic right kidney. Left kidney is unremarkable. Millard catheter in place. Lacho Morel MD Brain MRI 05/19/17 0000 Signed Impressions: Service Date/Time: Friday, May 19, 2017 08:27 - CONCLUSION: Old infarcts and extensive white matter disease. Marked atrophy without mass effect. Negative for acute ischemic event Galen Beal MD FACR Head CT 05/18/17 1218 Signed Impressions: Service Date/Time: Thursday, May 18, 2017 14:10 - CONCLUSION: 1. Although chronic appearing, there is interval worsening in the encephalomalacia changes in the right frontoparietal region as detailed above. Exvacuo dilatation of the adjacent ventricular system. 2. Nothing acute. 3. Severe chronic sinusitis the right maxillary antrum. Michael Cruz MD Last Impressions Brain MRI 05/19/17 0000 Signed Impressions: Service Date/Time: Friday, May 19, 2017 08:27 - CONCLUSION: Old infarcts and extensive white matter disease. Marked atrophy without mass effect. Negative for acute ischemic event Galen Beal MD FACR Chest X-Ray 05/18/17 1854 Signed Impressions: Service Date/Time: Thursday, May 18, 2017 19:03 - CONCLUSION: 1. Support apparatus in good position. Right upper lobe scarring and pleural thickening with partial lung resection. Underlying emphysema. No pneumothorax. Delta Anderson MD Head CT 05/18/17 1218 Signed Impressions: Service Date/Time: Thursday, May 18, 2017 14:10 - CONCLUSION: 1. Although chronic appearing, there is interval worsening in the encephalomalacia changes in the right frontoparietal region as detailed above. Exvacuo dilatation of the adjacent ventricular system. 2. Nothing acute. 3. Severe chronic sinusitis the right maxillary antrum. Michael Cruz MD Objective Remarks GENERAL: 57-year-old male alert and oriented SKIN: Warm and dry. Dry necrotic ulcer to left kam/heel noted. HEAD: Atraumatic. Normocephalic. EYES: Pupils equal and round. No scleral icterus. No injection or drainage. ENT: No nasal bleeding or discharge. Mucous membranes pink and moist. NECK: Trachea midline. No JVD. CARDIOVASCULAR: Regular rate and rhythm. S1, S2. No S4. Without murmur RESPIRATORY: No accessory muscle use. Clear to auscultation. Breath sounds equal bilaterally. GASTROINTESTINAL: Abdomen soft, non-tender, scaphoid. Positive bowel sounds appreciated MUSCULOSKELETAL: Left upper & lower extremity contracted. See skin for left kam/heel ulcer/multiple NEUROLOGICAL: GCS 15 movement of right upper and lower extremity Date of Insertion: May 18, 2017 Line: Central Venous Catheter Side: Right Location: Internal, Jugular A/P Assessment and Plan Neuro/Psych: Seizure History of right frontal parietal CVA with left-sided weakness History of right ICA occlusion Prior history of alcoholism Depression NOS Chronic opioid use On Precedex for vent weaning trial Goal of RASS -2 CT brain revealed right frontoparietal temporal changes with ex vacuo dilatation. Right maxillary sinusitis MRI brain 05/19 revealed right MCA CVA with scattered white matter changes. No new infarct Received 1 g fosphenytoin in ED. 2 mg of lorazepam. Seizure precautions 05/20-EEG -moderate encephalopathy Phenytoin 100 mg IV every 8 hours Dilantin level 14.5 CV: Chronic systolic heart failure ejection fraction 35-40% Hypertension Hyperlipidemia Peripheral vascular occlusive disease Elevated troponin Echocardiogram 07/22 revealed EF 35-40%. LVH. Septal hypokinesis. Pulmonary arterial pressures 23 mmHg 05/19Repeat echocardiogram- EF 40-45%.Trace TR , PAP 39 Continue carvedilol 3.125 mg twice daily. Increased to 6.25 twice daily As needed labetalol/hydralazine/Nitropaste for hypertension Currently on atorvastatin 20 mg by mouth daily Coumadin aspirin 81 mg p.o. daily Currently not on diuretics Patient previously refused amputation to left lower extremity per Dr. Dasilva 02/22 Cycle troponins currently with downward trend Labetalol for systolic blood pressure greater than 160mmHg PRN Continue Norvasc Resp: Acute respiratory insufficiency History of tobaccoism/COPD [facility] /02/09/34 Albuterol/ipratropium aerosols every 6 hours with albuterol aerosols every 2 hours as needed dyspnea Chest x-ray revealed emphysematous changes. No focal infiltrate 05/20 chest x-ray -perihilar edema versus pneumonia Extubation 05/22 GI: History of esophagitis Gastroesophageal reflux disease 05/13 begin clear liquid diet Famotidine for GI prophylaxis Docusate sodium/senna 1 tablet twice daily for bowel regimen : Millard catheter if indicated for accurate I's and O's in a critically ill patient Endo: Sliding scale insulin Accu-Cheks to maintain euglycemia/low regimen every 6 hours Renal: Chronic kidney disease stage III a 05/21 IV fluids discontinued Check urine electrolytes and eosinophils/renal ultrasound Monitor urine output Accurate I's and O's Monitor BMP Heme: Leukocytosis Thrombocytosis Currently on ferrous sulfate 325 mg p.o. twice daily Follow-up on coags Does not meet transfusion threshold at this time Monitor CBC daily. Follow trends ID: Blood cultures 2, sputum and urine ordered ID following 05/21 sputum culture-strep pneumonia 05/21-repeat blood culture NGTD 05/21-influenza A/B, Legionella urine antigen -negative FEN: Hypokalemia Replace electrolytes as clinically indicated per electrolyte protocol MSK: Osteoporosis/osteoarthritis Left heel ulcer Physical therapy evaluate and treat. Wound care evaluate left lower extremity. Access -Utilize peripheral IV. Central line Prophylaxis -GI -famotidine -DVT -SCD/heparin subcu Critical Care: Level 2 follow up Discussed with [employer] SUPERVISOR at bedside (Lucrecia) planned transfer to [facility] in Physician Britney uJng MD May 23, 2017 09:38
[2017-05-23] MEDS: cefTRIAXone INJ 2,000 MG in SODIUM CHLORIDE 0.9% INJ 100 ML IV SCH (11:37)
--- NOTE | 2017-05-23 18:19 | MB ---
cc: Aman Menezes MD DATE: 05/23/2017 REASON FOR CONSULTATION: Hypoxia. HISTORY OF PRESENT ILLNESS: The patient is a 57-year-old gentleman who is a [facility] resident with history of heavy tobacco abuse, came into the hospital because of having fever and change in mental status. The patient needed to be intubated and he was extubated 2 days ago. He was found to have hypoxemia. The patient is currently on broad spectrum antibiotics for pneumonia. He received also steroids as well. The patient yesterday and today did have some hypoxemia. Right now, he is down to a nasal cannula. PAST MEDICAL HISTORY: Reviewed in detail. MEDICATIONS: Reviewed in detail. REVIEW OF SYSTEMS: Could not be obtained. The patient is not very informative in getting information from. PHYSICAL EXAMINATION: GENERAL APPEARANCE: The patient looks comfortable. He looks cachectic. VITAL SIGNS: Show temperature 98, pulse 82, respiratory rate is 30, blood pressure 158/70, saturating 92% on 6 liters Ventimask. NECK: Trachea midline. LUNGS: Decreased breath sounds bilateral with bibasilar crackles. HEART: S1, S2. ABDOMEN: Soft and nontender. EXTREMITIES: No edema. Again, the patient is cachectic. NEUROLOGIC: The patient is awake, moves extremities. Did not follow my commands. LABORATORY DATA: ABG showed pH 7.47, pCO2 of 30, pO2 is 47. Sodium 146, BUN is 20, creatinine 1.04. WBC is 10.7. ____ on his cultures. ASSESSMENT AND PLAN: 1. Status post respiratory failure. 2. Hypoxemia. 3. Possible chronic obstructive pulmonary disease. 4. Status post stroke. 5. Cachexia. The differential diagnosis includes possible pulmonary embolism versus pneumonia versus chronic obstructive pulmonary disease exacerbation versus atelectasis. I decided that the best approach is to order a CT angiogram. Depending on that, we will decide on the next step, whether he needs anticoagulation or not. Also, this will give us a good idea about the anatomy and his pulmonary parenchyma. I would like to check a procalcitonin level as well. I would recommend aggressive chest physiotherapy. Depending on how the patient does, will make further decisions. Thank you for this consultation. MD QING Cohen/JOSE , 06:03 PM , 06:18 PM
[2017-05-23] MEDS: MIRTAZAPINE ODT 15 MG TAB PO SCH (21:10)
[2017-05-23] MEDS: ATORVASTATIN 20 MG TAB PO SCH (21:10)
[2017-05-23] MEDS ORDERED: PHARMACY ORDERED LAB ONE (22:45)
[2017-05-23] MEDS ORDERED: IOHEXOL 350 MG/ML 10 ML VIAL (for RAD DIAG) IVCONTRAST ONE (22:47)
--- NOTE | 2017-05-23 23:05 | RADRPT ---
EXAM DATE/TIME: 05/23/2017 22:37 [facility] COMPARISON: CT THORAX W/O CONTRAST, February 17, 2017, 11:39. INDICATIONS : Shortness of breath. IV CONTRAST: 75 cc Omnipaque 350 (iohexol) IV RADIATION DOSE: 9.39 CTDIvol (mGy) MEDICAL HISTORY : Cerebrovascular disease. Hypertension. Chronic obstructive pulmonary disease. SURGICAL HISTORY : None. ENCOUNTER: Initial ACUITY: 1 day PAIN SCALE: 3/10 LOCATION: chest TECHNIQUE: Volumetric scanning of the chest was performed using a pulmonary embolism protocol MIP images were re constructed. Using automated exposure control and adjustment of the mA and/or kV according to patien t size, radiation dose was kept as low as reasonably achievable to obtain optimal diagnostic quality images. DICOM format image data is available electronically for review and comparison. Follow-up recommendations for detected pulmonary nodules are based at a minimum on nodule size and pa tient risk factors according to Fleischner Society Guidelines. FINDINGS: No pulmonary embolus demonstrated. Prominent caliber right and left pulmonary artery branches suggest ing pulmonary artery hypertension. I don't see any significant distal pruning of vessels to suggest c hronic pulmonary embolus. Patient has severe emphysema. Moderate pleural effusions with dense bibasilar consolidation present. There is also some patchy cons olidation in both mid and upper lungs. No pneumothorax. There is left ventricular hypertrophy. Overall heart size within normal limits. LAD predominant coron peg artery calcification noted. CONCLUSION: 1. No pulmonary embolus. 2. Emphysema with suspected cor pulmonale. 3. Moderate pleural effusions and compressive/dependent atelectasis of both bases. 4. Patchy infiltrate in the mid and upper lungs, mostly on the right. 5. Left ventricular hypertrophy and coronary artery calcification. Lacho Shi MD on May 23, 2017 at 23:01 Board Certified Radiologist. This report was verified electronically.
[2017-05-24] VITALS (14 sets, daily range): BP systolic 107–168; BP diastolic 56–89; PULSE 67–91; RESP 15–21; TEMP 98.1–99; O2SAT 96–100
[2017-05-24] MEDS: hydrALAZINE HCL 20 MG/ML VIAL IV PUSH PRN ×3 (00:37→23:29)
[2017-05-24] MEDS: CHLORHEXIDINE GLUCONATE 2 % 1 PACK (2 CLOTHS) TOP SCH (04:00)
--- NOTE | 2017-05-24 05:39 | RADRPT ---
EXAM DATE/TIME: 05/24/2017 04:36 [facility] COMPARISON: CHEST SINGLE AP, May 22, 2017, 4:23. INDICATIONS : Shortness of breath, possible pulmonary disease. MEDICAL HISTORY : Venous insufficiency. Hypertension Chronic obstructive pulmonary disease. CVA SURGICAL HISTORY : None. ENCOUNTER: Subsequent ACUITY: 1 week PAIN SCORE: Non-responsive. LOCATION: Bilateral chest FINDINGS: Emphysema and basilar consolidation again noted. No pneumothorax seen. Heart size stable, within norm al limits. Patient has been activated and the nasogastric tube is better. CONCLUSION: Interim extubation and nasogastric tube removal. Mild consolidation and small effusions at both bases superimposed on emphysema. Lacho Shi MD on May 24, 2017 at 5:37 Board Certified Radiologist. This report was verified electronically.
[2017-05-24] MEDS: INSULIN NovoLIN REGULAR SUPPLEMENTAL SCALE SQ SCH ×5 (05:52→23:32)
[2017-05-24] MEDS: HEPARIN SODIUM - SQ 10,000 UNITS/ML VIAL SQ SCH ×2 (05:52→17:30)
[2017-05-24] MEDS: FOSPHENYTOIN SODIUM 100 MG PE/2 ML VIAL IV SCH (05:53)
[2017-05-24 06:47] LABS: AUTOMATED NEUTROPHIL # 7.4 TH/MM3 (1.8-7.7); BASOPHIL # 0.1 TH/MM3 (0-0.2); BASOPHIL % 1.4 % (0.0-2.0); EOSINOPHIL # 0.2 TH/MM3 (0-0.4); EOSINOPHIL % 2.1 % (0.0-4.0); HEMOGLOBIN 11.6 GM/DL (13.0-17.0); LYMPH % 11.2 % (9.0-44.0); LYMPHOCYTE # 1.1 TH/MM3 (1.0-4.8); MEAN CELL VOLUME 90.3 FL (80.0-100.0); MEAN CORPUSCULAR HEMOGLOBIN 29.8 PG (27.0-34.0); MEAN PLATELET VOLUME 9.2 FL (7.0-11.0); NEUT % 75.3 % (16.0-70.0); PLATELET COUNT 259 TH/MM3 (150-450); RED BLOOD COUNT 3.88 MIL/MM3 (4.50-5.90); RED CELL DISTRIBUTION WIDTH 15.2 % (11.6-17.2); WHITE BLOOD COUNT 9.8 TH/MM3 (4.0-11.0)
[2017-05-24 07:32] LABS: BICARBONATE 21.4 MEQ/L (21.0-32.0); CALCIUM 8.7 MG/DL (8.5-10.1); CREATININE 0.78 MG/DL (0.60-1.30)
[2017-05-24] MEDS: CHLORHEXIDINE 0.12% (ORAL KIT) 15 ML CUP MT SCH ×2 (08:00→20:00)
[2017-05-24] MEDS: MULTIVITAMINS/MINERALS THERAPEUTIC TAB PO SCH (08:57)
[2017-05-24] MEDS: ASCORBIC ACID 500 MG TAB PO SCH ×2 (08:57→20:04)
[2017-05-24] MEDS: AZITHROMYCIN 250 MG TAB PO SCH (08:57)
[2017-05-24] MEDS: ASPIRIN EC 81 MG TABEC PO SCH (08:57)
[2017-05-24] MEDS: DOCUSATE SODIUM 50 MG/SENNA 8.6 MG TAB PO SCH ×2 (08:57→20:05)
[2017-05-24] MEDS: amLODIPine BESYLATE 5 MG TAB PO SCH (08:58)
[2017-05-24] MEDS: CARVEDILOL 3.125 MG TAB PO SCH ×2 (08:58→20:05)
[2017-05-24] MEDS: cefTRIAXone INJ 2,000 MG in SODIUM CHLORIDE 0.9% INJ 100 ML IV SCH (08:58)
[2017-05-24] MEDS: FAMOTIDINE 40 MG/5 ML LIQ 50 ML BTL NG SCH ×2 (09:07→21:00)
[2017-05-24] MEDS: ARTIFICIAL TEARS OPTH SOLN 15 ML BTL EACH EYE SCH ×3 (09:07→17:30)
[2017-05-24] MEDS: SODIUM CHLORIDE 0.9% FLUSH 10 ML FLUSH IV FLUSH SCH ×3 (09:08→21:50)
--- NOTE | 2017-05-24 09:41 | HHI.PR ---
Subjective Remarks Hospital course: 57-year-old male. Date of admission 05/18/2017. 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 Today, he presents to [facility] with complaints of altered mental status and reported fever. According to documentation from ED visit, the paramedics documented that the [employer] appliance washing machine mechanic stated that they found him slumped over the bed. They reported that he had decreased mental status. They also reported a fever of 103. When paramedics arrived, they found him to be with normal temperature. He did appear altered and somewhat aggressive. There is no other further history elicited. Patient had a white blood cell count of 18,000. Potassium 2.5. Elevated troponin 0 0.24. EKG currently pending. CT brain revealed subtle increased right frontal parietal temporal changes with ex vacuo dilatation of the ventricles. Right maxillary sinusitis. Patient had a witnessed seizure in the ED was given 1 g of fosphenytoin and 2 mg of midazolam. 05/24: Transferred to Hospitalist service. He is awake and oriented. On NC. Asking for regular diet. Objective Vitals Vital Signs Date Time Temp Pulse Resp B/P (MAP) Pulse Ox O2 Delivery O2 Flow Rate FiO2 05/24/17 07:38 96 Nasal Cannula 2.00 05/24/17 06:00 86 05/24/17 04:00 98.1 85 16 126/75 (92) 98 05/24/17 04:00 85 05/24/17 02:00 85 05/24/17 00:00 98.5 80 18 168/82 (110) 99 05/24/17 00:00 80 05/23/17 22:00 80 05/23/17 20:28 98 Nasal Cannula 6.00 05/23/17 20:00 75 05/23/17 20:00 98.2 75 16 176/79 (111) 97 05/23/17 19:00 100 Nasal Cannula 5.00 05/23/17 18:00 79 05/23/17 16:00 82 05/23/17 16:00 98.0 82 30 158/70 (99) 92 05/23/17 14:00 79 05/23/17 12:00 81 05/23/17 12:00 99.1 81 21 141/70 (93) 97 05/23/17 10:00 87 I/O 05/23/17 05/23/17 05/23/17 05/24/17 05/24/17 05/24/17 07:00 15:00 23:00 07:00 15:00 23:00 Intake Total 200 ml 150 ml 240 ml Output Total 1100 ml 950 ml 650 ml 850 ml Balance -900 ml -800 ml -650 ml -610 ml Intake Oral 240 ml IV Total 200 ml 150 ml Output Urine Total 1100 ml 950 ml 650 ml 850 ml # Bowel Movements 0 0 0 Result Diagram: 05/24/1741905/24/17419 Objective Remarks GENERAL: Appear older than stated age. CARDIOVASCULAR: Regular rate and rhythm. RESPIRATORY: No accessory muscle use. Diminished breath sounds at the bases, otherwise clear to auscultation GASTROINTESTINAL: Abdomen soft, non-tender, nondistended. Hepatic and splenic margins not palpable. MUSCULOSKELETAL: Extremities without clubbing, cyanosis, or edema. No obvious deformities. NEUROLOGICAL: Awake and alert. No obvious cranial nerve deficits. Motor grossly within normal limits. Generalized weakness. PSYCHIATRIC: Appropriate mood and affect; insight and judgment normal. Date of Insertion: May 18, 2017 Line: Central Venous Catheter Side: Right Location: Internal, Jugular A/P Problem List: (1) Seizure ICD Code: R56.9 - Unspecified convulsions (2) Depression ICD Code: F32.9 - Major depressive disorder, single episode, unspecified (3) Dyslipidemia ICD Code: E78.5 - Hyperlipidemia, unspecified (4) Thrombocytosis ICD Code: D47.3 - Essential (hemorrhagic) thrombocythemia (5) Leukocytosis ICD Code: D72.829 - Elevated white blood cell count, unspecified Status: Acute (6) Peripheral angiopathy ICD Code: I73.9 - Peripheral vascular disease, unspecified Status: Acute (7) Encephalopathy ICD Code: G93.40 - Encephalopathy, unspecified Status: Acute (8) Carotid artery stenosis ICD Code: I65.29 - Occlusion and stenosis of unspecified carotid artery Status: Chronic (9) Elevated troponin ICD Code: R79.89 - Elevated troponin Status: Acute (10) Chronic systolic heart failure ICD Code: I50.22 - Chronic systolic (congestive) heart failure Status: Acute (11) COPD exacerbation ICD Code: J44.1 - Chronic obstructive pulmonary disease with (acute) exacerbation Status: Acute (12) PVD (peripheral vascular disease) ICD Code: I73.9 - Peripheral vascular disease, unspecified Status: Acute (13) Chronic back pain ICD Code: M54.9 - Dorsalgia, unspecified; G89.29 - Other chronic pain Status: Acute (14) Ulcer of left foot ICD Code: L97.529 - Non-pressure chronic ulcer of other part of left foot with unspecified severity Status: Acute Assessment and Plan 57 Y/O male with: Seizure History of right frontal parietal CVA with left-sided weakness History of right ICA occlusion Prior history of alcoholism Depression NOS Chronic opioid use CT brain revealed right frontoparietal temporal changes with ex vacuo dilatation. Right maxillary sinusitis MRI brain 05/19 revealed right MCA CVA with scattered white matter changes. No new infarct Received 1 g fosphenytoin in ED. 2 mg of lorazepam. Seizure precautions 05/20-EEG -moderate encephalopathy Phenytoin 100 mg IV every 8 hours. Transition to Oral Chronic systolic heart failure ejection fraction 35-40% Hypertension Hyperlipidemia Peripheral vascular occlusive disease Elevated troponin Echocardiogram 07/22 revealed EF 35-40%. LVH. Septal hypokinesis. Pulmonary arterial pressures 23 mmHg 05/19Repeat echocardiogram- EF 40-45%.Trace TR , PAP 39 Continue carvedilol 3.125 mg twice daily. Increased to 6.25 twice daily As needed labetalol/hydralazine/Nitropaste for hypertension Currently on atorvastatin 20 mg by mouth daily Coumadin aspirin 81 mg p.o. daily Currently not on diuretics Patient previously refused amputation to left lower extremity per Dr. Dasilva 02/22 Cycle troponins currently with downward trend Labetalol for systolic blood pressure greater than 160mmHg PRN Continue Norvasc Acute respiratory insufficiency History of tobaccoism/COPD strep pneumonia/H Flu PNA s/p intubation and extubation Albuterol/ipratropium aerosols every 6 hours with albuterol aerosols every 2 hours as needed dyspnea Chest x-ray revealed emphysematous changes. No focal infiltrate CTA neg for PE. Consistent with severe emphysema and infiltrates. Abx per ID. History of esophagitis Gastroesophageal reflux disease Famotidine for GI prophylaxis Docusate sodium/senna 1 tablet twice daily for bowel regimen Speech to eval for regular diet. Chronic kidney disease stage III a 05/21 IV fluids discontinued Check urine electrolytes and eosinophils/renal ultrasound Monitor urine output Accurate I's and O's Monitor BMP Leukocytosis Thrombocytosis Currently on ferrous sulfate 325 mg p.o. twice daily Follow-up on coags Monitor CBC daily. Follow trends Osteoporosis/osteoarthritis Left heel ulcer Physical therapy evaluate and treat. Wound care evaluate left lower extremity. Prophylaxis -GI -famotidine -DVT -SCD/heparin subcu Discharge Planning OK to transfer to floor. PT. Continue ABx for PNA per ID. Will need to return to SNF when improved and cleared by specialist. Problem Qualifiers (1) Leukocytosis: Qualified Codes: D72.829 - Elevated white blood cell count, unspecified (2) Carotid artery stenosis: Qualified Codes: I65.21 - Occlusion and stenosis of right carotid artery (3) Chronic back pain: Qualified Codes: M54.5 - Low back pain; G89.29 - Other chronic pain (4) Ulcer of left foot: Qualified Codes: L97.529 - Non-pressure chronic ulcer of other part of left foot with unspecified severity Kervin Vivar MD May 24, 2017 09:41
--- NOTE | 2017-05-24 11:21 | HHI.IDPN ---
Subjective Subjective Remarks Patient is a 57-year-old male, halfway resident, has had prior CVA with left-sided weakness, brought into the hospital for evaluation of altered mental status and fever. EMS was called, and apparently from the halfway that tendon that found him said that he was slumped over the bed. There was fever of up to 103. When the paramedics came he was afebrile. He was apparently somewhat aggressive. There was no other history available. His initial WBC was 18,000. His CT of the head showed the evidence of previous CVA, and he had some maxillary sinusitis. He apparently had a witnessed seizure in the ED. Patient ended up getting intubated, and had a central line put in in his right IJ. His hemodynamics are currently stable. He is not on pressors. His WBC remained persistently elevated. He had some low-grade fevers overnight. Blood cultures on admission are negative so far. Urinalysis is unremarkable. Flaherty catheter was placed 05/19. Influenza testing is negative. Sputum culture is pending. Patient currently is on vancomycin, cefepime, and Zithromax. Infectious disease consultation has been requested to evaluate the patient for fevers and leukocytosis. Notes reviewed Good sats on nasal O2 Temps ok BP ok Denies SOB Swallowing eval - puree diet and thin liquids States he is not hungry Sputum with Pneumo and H flu, PCN resistant pneumo WBC down to normal CXR stable Antibiotics Rocephin Zithromax Current Medications Medications (Trade) Dose Ordered Sig/Mohit Route Start Time Stop Time Status Last Admin (NS Flush) 2 ml UNSCH PRN IV FLUSH 05/18/17 15:45 (NS Flush) 2 ml BID IV FLUSH 05/18/17 21:00 05/24/17 09:08 (Tylenol) 650 mg Q6H PRN PO 05/18/17 15:45 05/21/17 20:39 (Tears Naturale Opth Soln) 1 drop TID EACH EYE 05/18/17 18:00 05/24/17 09:07 (Zofran Inj) 4 mg Q6H PRN IV PUSH 05/18/17 15:45 (Albuterol Neb) 2.5 mg Q2HR NEB PRN INH 05/18/17 15:45 05/23/17 00:47 (Heparin Inj) 5,000 units Q12H SQ 05/18/17 17:00 05/24/17 05:52 Miscellaneous Information 1 Q361D XX 05/18/17 15:45 (Chlorhexidine 2% Cloth) Taper DAILY@04 TOP 05/19/17 04:00 05/15/18 03:59 05/24/17 04:00 (Chlorhexidine 2% Cloth) 3 pack UNSCH PRN TOP 05/18/17 15:45 (Kajal-Colace) 1 tab BID PO 05/18/17 21:00 05/24/17 08:57 (Milk Of Magnesia Liq) 30 ml Q12H PRN PO 05/18/17 15:45 (Senokot) 17.2 mg Q12H PRN PO 05/18/17 15:45 (Dulcolax Supp) 10 mg DAILY PRN RECTAL 05/18/17 15:45 (Lactulose Liq) 30 ml DAILY PRN PO 05/18/17 15:45 (D50w (Vial) Inj) 50 ml UNSCH PRN IV PUSH 05/18/17 15:45 05/19/17 17:15 (Glucagon Inj) 1 mg UNSCH PRN OTHER 05/18/17 15:45 (Vitamin C) 500 mg BID PO 05/18/17 21:00 05/24/17 08:57 (Ecotrin Ec) 81 mg DAILY PO 05/19/17 09:00 05/24/17 08:57 (Lipitor) 20 mg HS PO 05/18/17 21:00 05/23/17 21:10 (Remeron Soltab Odt) 15 mg HS PO 05/18/17 21:00 05/23/17 21:10 (Trandate Inj) 10 mg Q1HR PRN IV PUSH 05/18/17 16:15 05/23/17 22:18 (Apresoline Inj) 10 mg Q1HR PRN IV PUSH 05/18/17 16:15 05/24/17 00:37 (Nitroglycerin 2% Oint) 2 inch Q6H PRN TOPICAL 05/18/17 17:00 (Theragran M Tab) 1 tab DAILY PO 05/19/17 09:00 05/24/17 08:57 Potassium Chloride 100 ml @ 50 mls/hr Q2H PRN IV 05/18/17 17:00 Potassium Chloride 100 ml @ 50 mls/hr Q2H PRN IV 05/18/17 17:00 05/21/17 12:26 (K-Lyte Cl Eff) 50 meq UNSCH PRN PO 05/18/17 17:00 Potassium Chloride 100 ml @ 25 mls/hr UNSCH PRN IV 05/18/17 17:00 Potassium Chloride 100 ml @ 50 mls/hr Q2H PRN IV 05/18/17 17:00 Magnesium Sulfate 4 gm/Sodium Chloride 100 ml @ 50 mls/hr UNSCH PRN IV 05/18/17 17:00 (Mag-Ox) 800 mg UNSCH PRN PO 05/18/17 17:00 Magnesium Sulfate 2 gm/Sodium Chloride 100 ml @ 50 mls/hr UNSCH PRN IV 05/18/17 17:00 (K-Phos) 2,000 mg Q4H PRN PO 05/18/17 17:00 Sodium Phosphate 30 mmol/Sodium Chloride 250 ml @ 42 mls/hr UNSCH PRN IV 05/18/17 17:00 05/21/17 08:21 (K-Phos) 2,000 mg UNSCH PRN PO/TUBE 05/18/17 17:00 Potassium Phosphate 30 mmol/ Sodium Chloride 260 ml @ 42 mls/hr UNSCH PRN IV 05/18/17 17:00 05/20/17 05:45 (Peridex 0.12% Liq) 15 ml BID@08,20 MT 05/18/17 20:00 05/23/17 21:11 Propofol 100 ml @ 0 mls/hr TITRATE PRN IV 05/18/17 18:00 Future Hold 05/22/17 05:45 Fentanyl Citrate 250 ml @ 5 mls/hr TITRATE PRN IV 05/18/17 18:00 Future Hold (NS Flush) DAILY IV FLUSH 05/19/17 09:00 05/24/17 09:09 (NS Flush) UNSCH PRN IV FLUSH 05/18/17 19:00 (NovoLIN R SUPPLEMENTAL SCALE) 1 Q6HR SQ 05/19/17 12:00 05/22/17 05:30 (Pepcid Liq) 20 mg BID NG 05/19/17 21:00 05/24/17 09:07 (Coreg) 6.25 mg Q12HR PO 05/19/17 21:00 05/24/17 08:58 (Catapres) 0.1 mg Q6H PRN PO 05/19/17 11:45 (Trandate Inj) 10 mg Q4H PRN IV PUSH 05/21/17 17:15 (Norvasc) 7.5 mg DAILY PO 05/22/17 10:15 05/24/17 08:58 (Pill Splitter) 1 ea UNSCH PRN OTHER 05/22/17 10:45 (Zithromax) 500 mg DAILY PO 05/22/17 15:00 05/24/17 08:57 Ceftriaxone Sodium 2000 mg/ Sodium Chloride 100 ml @ 200 mls/hr Q24H IV 05/23/17 10:00 05/24/17 08:58 (Dilantin) 100 mg Q8HR PO 05/24/17 14:00 Lines Line with no evidence of infection Past Medical History Right frontal parietal CVA Right internal carotid artery occlusion Depression disorder NOS Essential hypertension Hyperlipidemia Osteoarthritis Chronic left heel ulcer Peripheral vascular disease with multiple occlusion of bilateral lower extremities Chronic systolic heart failure ejection fraction 35-40% Tobaccoism Esophagitis Past Surgical History Right thoracotomy/chest tube Left heel ulcer right eye right ankle debridement Allergies: Coded Allergies: No Known Allergies (Verified Allergy, Unknown, 02/08/17) Objective . Vital Signs Date Time Temp Pulse Resp B/P (MAP) Pulse Ox O2 Delivery O2 Flow Rate FiO2 05/24/17 10:00 88 05/24/17 08:00 91 05/24/17 08:00 98.4 91 21 107/56 (73) 99 05/24/17 07:38 96 Nasal Cannula 2.00 05/24/17 07:00 96 Nasal Cannula 5.00 05/24/17 06:00 86 05/24/17 04:00 98.1 85 16 126/75 (92) 98 05/24/17 04:00 85 05/24/17 02:00 85 05/24/17 00:00 98.5 80 18 168/82 (110) 99 05/24/17 00:00 80 05/23/17 22:00 80 05/23/17 20:28 98 Nasal Cannula 6.00 05/23/17 20:00 75 05/23/17 20:00 98.2 75 16 176/79 (111) 97 05/23/17 19:00 100 Nasal Cannula 5.00 05/23/17 18:00 79 05/23/17 16:00 82 05/23/17 16:00 98.0 82 30 158/70 (99) 92 05/23/17 14:00 79 05/23/17 12:00 81 05/23/17 12:00 99.1 81 21 141/70 (93) 97 05/24/17 05/24/17 05/25/17 15:00 23:00 07:00 Intake Total 100 ml Balance 100 ml IV Total 100 ml . Laboratory Tests Test 05/24/17 04:20 White Blood Count 9.8 TH/MM3 Red Blood Count 3.88 MIL/MM3 Hemoglobin 11.6 GM/DL Hematocrit 35.0 % Mean Corpuscular Volume 90.3 FL Mean Corpuscular Hemoglobin 29.8 PG Mean Corpuscular Hemoglobin Concent 33.0 % Red Cell Distribution Width 15.2 % Platelet Count 259 TH/MM3 Mean Platelet Volume 9.2 FL Neutrophils (%) (Auto) 75.3 % Lymphocytes (%) (Auto) 11.2 % Monocytes (%) (Auto) 10.0 % Eosinophils (%) (Auto) 2.1 % Basophils (%) (Auto) 1.4 % Neutrophils # (Auto) 7.4 TH/MM3 Lymphocytes # (Auto) 1.1 TH/MM3 Monocytes # (Auto) 1.0 TH/MM3 Eosinophils # (Auto) 0.2 TH/MM3 Basophils # (Auto) 0.1 TH/MM3 CBC Comment AUTO DIFF Differential Comment AUTO DIFF CONFIRMED Laboratory Tests Test 05/23/17 19:39 05/24/17 04:20 Procalcitonin 0.24 ng/mL Blood Urea Nitrogen 15 MG/DL Creatinine 0.78 MG/DL Random Glucose 65 MG/DL Calcium Level 8.7 MG/DL Sodium Level 138 MEQ/L Potassium Level 4.0 MEQ/L Chloride Level 103 MEQ/L Carbon Dioxide Level 21.4 MEQ/L Anion Gap 14 MEQ/L Estimat Glomerular Filtration Rate 103 ML/MIN Microbiology Date/Time Source Procedure Growth Status 05/21/17 11:45 Blood Peripheral Aerobic Blood Culture - Preliminary NO GROWTH IN 3 DAYS Resulted 05/21/17 11:45 Blood Peripheral Anaerobic Blood Culture - Preliminary NO GROWTH IN 3 DAYS Resulted Imaging Chest X-Ray 05/24/17 0600 Signed Impressions: Service Date/Time: May 04:36 - CONCLUSION: Interim extubation and nasogastric tube removal. Mild consolidation and small effusions at both bases superimposed on emphysema. Lacho Shi MD CT Angiography 05/23/17 0000 Signed Impressions: Service Date/Time: Tuesday, May 23, 2017 22:37 - CONCLUSION: 1. No pulmonary embolus. 2. Emphysema with suspected cor pulmonale. 3. Moderate pleural effusions and compressive/dependent atelectasis of both bases. 4. Patchy infiltrate in the mid and upper lungs, mostly on the right. 5. Left ventricular hypertrophy and coronary artery calcification. Lacho Shi MD Last Impressions Chest X-Ray 05/22/17 0600 Signed Impressions: Service Date/Time: Monday, May 22, 2017 04:23 - CONCLUSION: Bilateral air space opacities are slightly worse. Otherwise no significant change. Lacho Shi MD Renal Ultrasound 05/19/17 0000 Signed Impressions: Service Date/Time: Friday, May 19, 2017 14:07 - CONCLUSION: Atrophic right kidney. Left kidney is unremarkable. Flaherty catheter in place. Lacho Morel MD Brain MRI 05/19/17 0000 Signed Impressions: Service Date/Time: Friday, May 19, 2017 08:27 - CONCLUSION: Old infarcts and extensive white matter disease. Marked atrophy without mass effect. Negative for acute ischemic event Galen Beal MD FACR Head CT 05/18/17 1218 Signed Impressions: Service Date/Time: Thursday, May 18, 2017 14:10 - CONCLUSION: 1. Although chronic appearing, there is interval worsening in the encephalomalacia changes in the right frontoparietal region as detailed above. Exvacuo dilatation of the adjacent ventricular system. 2. Nothing acute. 3. Severe chronic sinusitis the right maxillary antrum. Michael Cruz MD Physical Exam GENERAL: Awakens easily, NAD on nasal O2, speech is clear SKIN: Warm and dry. No generalized rash HEAD: Atraumatic. Normocephalic. No temporal wasting, or tenderness. EYES: [place] conjunctiva. No petechia or hemorrhage. Pupils equal, round and reactive to light. No scleral icterus. No injection or drainage. EARS, NOSE AND THROAT: Nose without bleeding or purulent nasal discharge. Moist mucosa NECK: Trachea midline. Supple and not tender, no meningeal signs CARDIOVASCULAR: Regular rate and rhythm. No murmurs, rubs or gallops heard RESPIRATORY: Coarse breath sounds bilaterally, decreased at the bases. No rales, wheezing or rhonchi ABDOMEN: Soft, flat, nondistended, not tender, bowel sounds present and normoactive. No guarding. No rebound. No organomegaly. EXTREMITIES: No clubbing, cyanosis, or edema. No joint effusion. His lower extremities are contracted. Well perfused and warm. NEUROLOGICAL: awake and alert PSYCHIATRIC: cooperative LINE: No evidence of infection RIJ : Flaherty catheter in place, with very small amount of sediment Assessment & Plan Remarks IMPRESSION Sepsis, fevers and leukocytosis, and altered mental status - due to PNA - came from [facility] ok; has had increased PVR and required flaherty 05/19 - C/S Pneumococcus and H flu Pneumonia, Pneumococcus and H flu Respiratory failure, extubated - requiring increased O2 Previous CVA with L sided weakness Renal insufficiency, better Leukocytosis, resolved RECOMMENDATION Continue Rocephin Also on Zithromax Monitor temps Monitor respiratory status Monitor progress Celine Villarreal MD May 24, 2017 11:21
[2017-05-24] MEDS: PHENYTOIN SODIUM 100 MG CAP PO SCH ×2 (13:05→21:57)
[2017-05-24] MEDS: LABETALOL HCL 100 MG/20 ML VIAL IV PUSH PRN (13:09)
[2017-05-24] MEDS: ATORVASTATIN 20 MG TAB PO SCH (20:04)
[2017-05-24] MEDS: MIRTAZAPINE ODT 15 MG TAB PO SCH (20:04)
[2017-05-24] MEDS ORDERED: MORPHINE SULFATE 2 MG/ML SYRINGE IV PUSH ONE (22:30)
[2017-05-25] VITALS (20 sets, daily range): BP systolic 136–181; BP diastolic 69–89; PULSE 65–79; RESP 13–32; TEMP 97.5–98.8; O2SAT 95–100
[2017-05-25] MEDS ORDERED: oxyCODONE/ACETAMINOPHEN 5 MG/325 MG TAB PO ONE (02:30)
[2017-05-25] MEDS: CHLORHEXIDINE GLUCONATE 2 % 1 PACK (2 CLOTHS) TOP SCH (03:33)
[2017-05-25] MEDS: HEPARIN SODIUM - SQ 10,000 UNITS/ML VIAL SQ SCH ×2 (04:21→17:24)
[2017-05-25 05:17] LABS: HEMATOCRIT 33.9 % (39.0-51.0); HEMOGLOBIN 11.3 GM/DL (13.0-17.0); MEAN CELL VOLUME 89.3 FL (80.0-100.0); MEAN CORPUSCULAR HEMOGLOBIN 29.8 PG (27.0-34.0); MEAN CORPUSCULAR HGB CONC 33.4 % (32.0-36.0); MEAN PLATELET VOLUME 8.6 FL (7.0-11.0); PLATELET COUNT 341 TH/MM3 (150-450); RED BLOOD COUNT 3.79 MIL/MM3 (4.50-5.90); WHITE BLOOD COUNT 9.6 TH/MM3 (4.0-11.0)
[2017-05-25] MEDS: LABETALOL HCL 100 MG/20 ML VIAL IV PUSH PRN (05:35)
[2017-05-25 05:47] LABS: CALCIUM 8.4 MG/DL (8.5-10.1); CREATININE 0.83 MG/DL (0.60-1.30)
[2017-05-25] MEDS: CHLORHEXIDINE 0.12% (ORAL KIT) 15 ML CUP MT SCH ×2 (08:00→20:08)
--- NOTE | 2017-05-25 08:50 | HHI.IDPN ---
Subjective Subjective Remarks Patient is a 57-year-old male, skilled nursing resident, has had prior CVA with left-sided weakness, brought into the hospital for evaluation of altered mental status and fever. EMS was called, and apparently from the skilled nursing that tendon that found him said that he was slumped over the bed. There was fever of up to 103. When the paramedics came he was afebrile. He was apparently somewhat aggressive. There was no other history available. His initial WBC was 18,000. His CT of the head showed the evidence of previous CVA, and he had some maxillary sinusitis. He apparently had a witnessed seizure in the ED. Patient ended up getting intubated, and had a central line put in in his right IJ. His hemodynamics are currently stable. He is not on pressors. His WBC remained persistently elevated. He had some low-grade fevers overnight. Blood cultures on admission are negative so far. Urinalysis is unremarkable. Flaherty catheter was placed 05/19. Influenza testing is negative. Sputum culture is pending. Patient currently is on vancomycin, cefepime, and Zithromax. Infectious disease consultation has been requested to evaluate the patient for fevers and leukocytosis. Notes reviewed Good sats on nasal O2 Temps ok BP ok Denies SOB Sputum with Pneumo and H flu, PCN resistant pneumo WBC down to normal CXR stable Antibiotics Rocephin Zithromax Current Medications Medications (Trade) Dose Ordered Sig/Mohit Route Start Time Stop Time Status Last Admin (NS Flush) 2 ml UNSCH PRN IV FLUSH 05/18/17 15:45 (NS Flush) 2 ml BID IV FLUSH 05/18/17 21:00 05/24/17 09:08 (Tylenol) 650 mg Q6H PRN PO 05/18/17 15:45 05/21/17 20:39 (Tears Naturale Opth Soln) 1 drop TID EACH EYE 05/18/17 18:00 05/24/17 09:07 (Zofran Inj) 4 mg Q6H PRN IV PUSH 05/18/17 15:45 (Albuterol Neb) 2.5 mg Q2HR NEB PRN INH 05/18/17 15:45 05/23/17 00:47 (Heparin Inj) 5,000 units Q12H SQ 05/18/17 17:00 05/24/17 05:52 Miscellaneous Information 1 Q361D XX 05/18/17 15:45 (Chlorhexidine 2% Cloth) Taper DAILY@04 TOP 05/19/17 04:00 05/15/18 03:59 05/24/17 04:00 (Chlorhexidine 2% Cloth) 3 pack UNSCH PRN TOP 05/18/17 15:45 (Kajal-Colace) 1 tab BID PO 05/18/17 21:00 05/24/17 08:57 (Milk Of Magnesia Liq) 30 ml Q12H PRN PO 05/18/17 15:45 (Senokot) 17.2 mg Q12H PRN PO 05/18/17 15:45 (Dulcolax Supp) 10 mg DAILY PRN RECTAL 05/18/17 15:45 (Lactulose Liq) 30 ml DAILY PRN PO 05/18/17 15:45 (D50w (Vial) Inj) 50 ml UNSCH PRN IV PUSH 05/18/17 15:45 05/19/17 17:15 (Glucagon Inj) 1 mg UNSCH PRN OTHER 05/18/17 15:45 (Vitamin C) 500 mg BID PO 05/18/17 21:00 05/24/17 08:57 (Ecotrin Ec) 81 mg DAILY PO 05/19/17 09:00 05/24/17 08:57 (Lipitor) 20 mg HS PO 05/18/17 21:00 05/23/17 21:10 (Remeron Soltab Odt) 15 mg HS PO 05/18/17 21:00 05/23/17 21:10 (Trandate Inj) 10 mg Q1HR PRN IV PUSH 05/18/17 16:15 05/23/17 22:18 (Apresoline Inj) 10 mg Q1HR PRN IV PUSH 05/18/17 16:15 05/24/17 00:37 (Nitroglycerin 2% Oint) 2 inch Q6H PRN TOPICAL 05/18/17 17:00 (Theragran M Tab) 1 tab DAILY PO 05/19/17 09:00 05/24/17 08:57 Potassium Chloride 100 ml @ 50 mls/hr Q2H PRN IV 05/18/17 17:00 Potassium Chloride 100 ml @ 50 mls/hr Q2H PRN IV 05/18/17 17:00 05/21/17 12:26 (K-Lyte Cl Eff) 50 meq UNSCH PRN PO 05/18/17 17:00 Potassium Chloride 100 ml @ 25 mls/hr UNSCH PRN IV 05/18/17 17:00 Potassium Chloride 100 ml @ 50 mls/hr Q2H PRN IV 05/18/17 17:00 Magnesium Sulfate 4 gm/Sodium Chloride 100 ml @ 50 mls/hr UNSCH PRN IV 05/18/17 17:00 (Mag-Ox) 800 mg UNSCH PRN PO 05/18/17 17:00 Magnesium Sulfate 2 gm/Sodium Chloride 100 ml @ 50 mls/hr UNSCH PRN IV 05/18/17 17:00 (K-Phos) 2,000 mg Q4H PRN PO 05/18/17 17:00 Sodium Phosphate 30 mmol/Sodium Chloride 250 ml @ 42 mls/hr UNSCH PRN IV 05/18/17 17:00 05/21/17 08:21 (K-Phos) 2,000 mg UNSCH PRN PO/TUBE 05/18/17 17:00 Potassium Phosphate 30 mmol/ Sodium Chloride 260 ml @ 42 mls/hr UNSCH PRN IV 05/18/17 17:00 05/20/17 05:45 (Peridex 0.12% Liq) 15 ml BID@08,20 MT 05/18/17 20:00 05/23/17 21:11 Propofol 100 ml @ 0 mls/hr TITRATE PRN IV 05/18/17 18:00 Future Hold 05/22/17 05:45 Fentanyl Citrate 250 ml @ 5 mls/hr TITRATE PRN IV 05/18/17 18:00 Future Hold (NS Flush) DAILY IV FLUSH 05/19/17 09:00 05/24/17 09:09 (NS Flush) UNSCH PRN IV FLUSH 05/18/17 19:00 (NovoLIN R SUPPLEMENTAL SCALE) 1 Q6HR SQ 05/19/17 12:00 05/22/17 05:30 (Pepcid Liq) 20 mg BID NG 05/19/17 21:00 05/24/17 09:07 (Coreg) 6.25 mg Q12HR PO 05/19/17 21:00 05/24/17 08:58 (Catapres) 0.1 mg Q6H PRN PO 05/19/17 11:45 (Trandate Inj) 10 mg Q4H PRN IV PUSH 05/21/17 17:15 (Norvasc) 7.5 mg DAILY PO 05/22/17 10:15 05/24/17 08:58 (Pill Splitter) 1 ea UNSCH PRN OTHER 05/22/17 10:45 (Zithromax) 500 mg DAILY PO 05/22/17 15:00 05/24/17 08:57 Ceftriaxone Sodium 2000 mg/ Sodium Chloride 100 ml @ 200 mls/hr Q24H IV 05/23/17 10:00 05/24/17 08:58 (Dilantin) 100 mg Q8HR PO 05/24/17 14:00 Lines Line with no evidence of infection Past Medical History Right frontal parietal CVA Right internal carotid artery occlusion Depression disorder NOS Essential hypertension Hyperlipidemia Osteoarthritis Chronic left heel ulcer Peripheral vascular disease with multiple occlusion of bilateral lower extremities Chronic systolic heart failure ejection fraction 35-40% Tobaccoism Esophagitis Past Surgical History Right thoracotomy/chest tube Left heel ulcer right eye right ankle debridement Allergies: Coded Allergies: No Known Allergies (Verified Allergy, Unknown, 02/08/17) Objective . Vital Signs Date Time Temp Pulse Resp B/P (MAP) Pulse Ox O2 Delivery O2 Flow Rate FiO2 05/25/17 06:00 68 05/25/17 04:00 72 05/25/17 04:00 98.8 72 19 159/69 (99) 99 05/25/17 02:00 79 05/25/17 00:00 98.6 75 13 181/80 (113) 100 05/25/17 00:00 75 05/24/17 22:50 22 05/24/17 22:00 73 05/24/17 20:24 97 Nasal Cannula 2.00 05/24/17 20:00 67 05/24/17 20:00 98.5 67 15 164/77 (106) 99 05/24/17 19:00 96 Nasal Cannula 5.00 05/24/17 18:00 76 05/24/17 16:00 98.6 76 21 144/77 (99) 100 05/24/17 16:00 76 05/24/17 14:00 75 05/24/17 12:00 99.0 82 21 145/89 (107) 96 05/24/17 12:00 82 05/24/17 10:00 88 . Laboratory Tests Test 05/24/17 04:20 05/25/17 03:34 White Blood Count 9.8 TH/MM3 9.6 TH/MM3 Red Blood Count 3.88 MIL/MM3 3.79 MIL/MM3 Hemoglobin 11.6 GM/DL 11.3 GM/DL Hematocrit 35.0 % 33.9 % Mean Corpuscular Volume 90.3 FL 89.3 FL Mean Corpuscular Hemoglobin 29.8 PG 29.8 PG Mean Corpuscular Hemoglobin Concent 33.0 % 33.4 % Red Cell Distribution Width 15.2 % 15.0 % Platelet Count 259 TH/MM3 341 TH/MM3 Mean Platelet Volume 9.2 FL 8.6 FL Neutrophils (%) (Auto) 75.3 % Lymphocytes (%) (Auto) 11.2 % Monocytes (%) (Auto) 10.0 % Eosinophils (%) (Auto) 2.1 % Basophils (%) (Auto) 1.4 % Neutrophils # (Auto) 7.4 TH/MM3 Lymphocytes # (Auto) 1.1 TH/MM3 Monocytes # (Auto) 1.0 TH/MM3 Eosinophils # (Auto) 0.2 TH/MM3 Basophils # (Auto) 0.1 TH/MM3 CBC Comment AUTO DIFF Differential Comment AUTO DIFF CONFIRMED Laboratory Tests Test 05/23/17 19:39 05/24/17 04:20 05/25/17 03:34 Procalcitonin 0.24 ng/mL Blood Urea Nitrogen 15 MG/DL 10 MG/DL Creatinine 0.78 MG/DL 0.83 MG/DL Random Glucose 65 MG/DL 92 MG/DL Calcium Level 8.7 MG/DL 8.4 MG/DL Sodium Level 138 MEQ/L 137 MEQ/L Potassium Level 4.0 MEQ/L 3.1 MEQ/L Chloride Level 103 MEQ/L 101 MEQ/L Carbon Dioxide Level 21.4 MEQ/L 27.0 MEQ/L Anion Gap 14 MEQ/L 9 MEQ/L Estimat Glomerular Filtration Rate 103 ML/MIN 95 ML/MIN Imaging Chest X-Ray 05/24/17 0600 Signed Impressions: Service Date/Time: May 04:36 - CONCLUSION: Interim extubation and nasogastric tube removal. Mild consolidation and small effusions at both bases superimposed on emphysema. Lacho Shi MD CT Angiography 05/23/17 0000 Signed Impressions: Service Date/Time: Tuesday, May 23, 2017 22:37 - CONCLUSION: 1. No pulmonary embolus. 2. Emphysema with suspected cor pulmonale. 3. Moderate pleural effusions and compressive/dependent atelectasis of both bases. 4. Patchy infiltrate in the mid and upper lungs, mostly on the right. 5. Left ventricular hypertrophy and coronary artery calcification. Lacho Shi MD Last Impressions Chest X-Ray 05/22/17 0600 Signed Impressions: Service Date/Time: Monday, May 22, 2017 04:23 - CONCLUSION: Bilateral air space opacities are slightly worse. Otherwise no significant change. Lacho Shi MD Renal Ultrasound 05/19/17 0000 Signed Impressions: Service Date/Time: Friday, May 19, 2017 14:07 - CONCLUSION: Atrophic right kidney. Left kidney is unremarkable. Flaherty catheter in place. Lacho Morel MD Brain MRI 05/19/17 0000 Signed Impressions: Service Date/Time: Friday, May 19, 2017 08:27 - CONCLUSION: Old infarcts and extensive white matter disease. Marked atrophy without mass effect. Negative for acute ischemic event Galen Beal MD FACR Head CT 05/18/17 1218 Signed Impressions: Service Date/Time: Thursday, May 18, 2017 14:10 - CONCLUSION: 1. Although chronic appearing, there is interval worsening in the encephalomalacia changes in the right frontoparietal region as detailed above. Exvacuo dilatation of the adjacent ventricular system. 2. Nothing acute. 3. Severe chronic sinusitis the right maxillary antrum. Michael Cruz MD Physical Exam GENERAL: Awake and alert, NAD on nasal O2, speech is clear SKIN: Warm and dry. No generalized rash HEAD: Atraumatic. Normocephalic. No temporal wasting, or tenderness. EYES: [place] conjunctiva. No petechia or hemorrhage. Pupils equal, round and reactive to light. No scleral icterus. No injection or drainage. EARS, NOSE AND THROAT: Nose without bleeding or purulent nasal discharge. Moist mucosa NECK: Trachea midline. Supple and not tender, no meningeal signs CARDIOVASCULAR: Regular rate and rhythm. No murmurs, rubs or gallops heard RESPIRATORY: Coarse breath sounds bilaterally, decreased at the bases. No rales, wheezing or rhonchi ABDOMEN: Soft, flat, nondistended, not tender, bowel sounds present and normoactive. No guarding. No rebound. No organomegaly. EXTREMITIES: No clubbing, cyanosis, or edema. No joint effusion. His lower extremities are contracted. Well perfused and warm. NEUROLOGICAL: awake and alert PSYCHIATRIC: cooperative LINE: No evidence of infection RIJ : Flaherty catheter in place, with very small amount of sediment Assessment & Plan Remarks IMPRESSION Sepsis, fevers and leukocytosis, and altered mental status - due to PNA - came from [place] - ok; has had increased PVR and required flaherty 05/19 - C/S Pneumococcus and H flu Pneumonia, Pneumococcus and H flu Respiratory failure, extubated - requiring increased O2 Previous CVA with L sided weakness Renal insufficiency, better Leukocytosis, resolved RECOMMENDATION Also on Zithromax Monitor temps Monitor respiratory status Monitor progress Will switch Rocephin to po Ceftin End dates ordered on [employer] Clinically doing well from ID standpoint Celine Villarreal MD May 25, 2017 08:50
[2017-05-25] MEDS: DOCUSATE SODIUM 50 MG/SENNA 8.6 MG TAB PO SCH ×2 (09:00→20:32)
[2017-05-25] MEDS: CEFUROXIME AXETIL 500 MG TAB PO SCH ×2 (09:00→20:07)
[2017-05-25] MEDS: ASPIRIN EC 81 MG TABEC PO SCH (09:28)
[2017-05-25] MEDS: amLODIPine BESYLATE 5 MG TAB PO SCH (09:28)
[2017-05-25] MEDS: ASCORBIC ACID 500 MG TAB PO SCH ×2 (09:28→20:08)
[2017-05-25] MEDS: PHENYTOIN SODIUM 100 MG CAP PO SCH ×3 (09:28→22:14)
[2017-05-25] MEDS: CARVEDILOL 3.125 MG TAB PO SCH ×2 (09:28→20:08)
[2017-05-25] MEDS: MULTIVITAMINS/MINERALS THERAPEUTIC TAB PO SCH (09:29)
[2017-05-25] MEDS: AZITHROMYCIN 250 MG TAB PO SCH (09:29)
[2017-05-25] MEDS: SODIUM CHLORIDE 0.9% FLUSH 10 ML FLUSH IV FLUSH SCH ×3 (09:30→20:10)
[2017-05-25] MEDS: FAMOTIDINE 40 MG/5 ML LIQ 50 ML BTL NG SCH ×2 (09:31→20:09)
[2017-05-25] MEDS: ARTIFICIAL TEARS OPTH SOLN 15 ML BTL EACH EYE SCH ×3 (09:31→17:24)
[2017-05-25] MEDS: POTASSIUM CHLOR 20 MEQ PREMIX 100 ML IV PRN ×4 (10:37→16:56)
--- NOTE | 2017-05-25 11:53 | HHI.PR ---
Subjective Remarks Hospital course: 57-year-old male. Date of admission 05/18/2017. 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 Today, he presents to [facility] ED from the skilled nursing with complaints of altered mental status and reported fever. According to documentation from ED visit, the paramedics documented that the skilled nursingchild psychometrist stated that they found him slumped over the bed. They reported that he had decreased mental status. They also reported a fever of 103. When paramedics arrived, they found him to be with normal temperature. He did appear altered and somewhat aggressive. There is no other further history elicited. Patient had a white blood cell count of 18,000. Potassium 2.5. Elevated troponin 0 0.24. EKG currently pending. CT brain revealed subtle increased right frontal parietal temporal changes with ex vacuo dilatation of the ventricles. Right maxillary sinusitis. Patient had a witnessed seizure in the ED was given 1 g of fosphenytoin and 2 mg of midazolam. 05/25: Seen by ID specialist with Sepsis fever and leukocytosis, Encephalopathy, due to Pneumonia, status post Respiratory failure extubated, previous CVA with Left sided weakness, resolved leukocytosis, continue Azithromycin, Ceftin, doing well from ID standpoint. Discussed with nurse Miss Lares Bottom Presser working on discharge to SNF. Seen by redevelopment specialist okay to discharge and follow as outpatient. Objective Vital Signs Date Time Temp Pulse Resp B/P (MAP) Pulse Ox O2 Delivery O2 Flow Rate FiO2 05/25/17 11:00 75 05/25/17 10:00 75 05/25/17 09:00 73 05/25/17 08:00 73 05/25/17 08:00 97.6 73 18 162/75 (104) 100 05/25/17 08:00 99 Nasal Cannula 2.00 05/25/17 07:30 73 19 176/81 (112) 98 05/25/17 07:00 71 05/25/17 07:00 71 32 166/80 (108) 97 05/25/17 06:00 68 05/25/17 04:00 72 05/25/17 04:00 98.8 72 19 159/69 (99) 99 05/25/17 02:00 79 05/25/17 00:00 98.6 75 13 181/80 (113) 100 05/25/17 00:00 75 05/24/17 22:50 22 05/24/17 22:00 73 05/24/17 20:24 97 Nasal Cannula 2.00 05/24/17 20:00 67 05/24/17 20:00 98.5 67 15 164/77 (106) 99 05/24/17 19:00 96 Nasal Cannula 5.00 05/24/17 18:00 76 05/24/17 16:00 98.6 76 21 144/77 (99) 100 05/24/17 16:00 76 05/24/17 14:00 75 05/24/17 12:00 99.0 82 21 145/89 (107) 96 05/24/17 12:00 82 I/O 05/24/17 05/24/17 05/24/17 05/25/17 05/25/17 05/25/17 07:00 15:00 23:00 07:00 15:00 23:00 Intake Total 240 ml 100 ml 300 ml Output Total 850 ml 850 ml 1100 ml Balance -610 ml 100 ml -550 ml -1100 ml Intake Oral 240 ml 300 ml IV Total 100 ml Output Urine Total 850 ml 850 ml 1100 ml # Bowel Movements 0 0 0 Result Diagram: 05/25/17 0334 05/25/17 0334 Imaging Last Impressions Chest X-Ray 05/24/17 0600 Signed Impressions: Service Date/Time: May 04:36 - CONCLUSION: Interim extubation and nasogastric tube removal. Mild consolidation and small effusions at both bases superimposed on emphysema. Lacho Shi MD CT Angiography 05/23/17 0000 Signed Impressions: Service Date/Time: Tuesday, May 23, 2017 22:37 - CONCLUSION: 1. No pulmonary embolus. 2. Emphysema with suspected cor pulmonale. 3. Moderate pleural effusions and compressive/dependent atelectasis of both bases. 4. Patchy infiltrate in the mid and upper lungs, mostly on the right. 5. Left ventricular hypertrophy and coronary artery calcification. Lacho Shi MD Renal Ultrasound 05/19/17 0000 Signed Impressions: Service Date/Time: Friday, May 19, 2017 14:07 - CONCLUSION: Atrophic right kidney. Left kidney is unremarkable. Millard catheter in place. Lacho Morel MD Brain MRI 05/19/17 0000 Signed Impressions: Service Date/Time: Friday, May 19, 2017 08:27 - CONCLUSION: Old infarcts and extensive white matter disease. Marked atrophy without mass effect. Negative for acute ischemic event Galen Beal MD FACR Head CT 05/18/17 1218 Signed Impressions: Service Date/Time: Thursday, May 18, 2017 14:10 - CONCLUSION: 1. Although chronic appearing, there is interval worsening in the encephalomalacia changes in the right frontoparietal region as detailed above. Exvacuo dilatation of the adjacent ventricular system. 2. Nothing acute. 3. Severe chronic sinusitis the right maxillary antrum. Michael Cruz MD Procedures Central line, Right jugular 05/18/17 Other Results Laboratory Tests Test 05/18/17 12:30 05/18/17 17:15 05/18/17 18:50 05/19/17 06:00 Total Creatine Kinase 102 U/L Fibrinogen 499 mg/dL Nasal Screen MRSA (PCR) MRSA NOT DETECTED Prothrombin Time 11.2 SEC Prothromb Time International Ratio 1.1 RATIO Activated Partial Thromboplast Time 29.5 SEC Lactic Acid Level 1.5 mmol/L Ammonia 19 MCMOL/L Troponin I 0.47 NG/ML Test 05/19/17 14:55 05/20/17 04:30 05/21/17 01:05 05/21/17 10:50 Urine Hyaline Casts 2 /lpf Urine Mucus FEW /lpf Urine Eosinophils NONE SEEN /HPF Urine Random Creatinine LESS THAN 5.0 MG/DL Urine Random Sodium 103 MEQ/L Phenytoin (Dilantin) Level 14.5 MCG/ML Blood Urea Nitrogen 22 MG/DL Creatinine 1.00 MG/DL Random Glucose 112 MG/DL Total Protein 5.5 GM/DL Albumin 1.9 GM/DL Calcium Level 7.5 MG/DL Phosphorus Level 1.9 MG/DL Magnesium Level 1.9 MG/DL Alkaline Phosphatase 76 U/L Aspartate Amino Transf (AST/SGOT) 30 U/L Alanine Aminotransferase (ALT/SGPT) 26 U/L Total Bilirubin 0.2 MG/DL Sodium Level 147 MEQ/L Potassium Level 2.9 MEQ/L Chloride Level 116 MEQ/L Carbon Dioxide Level 24.5 MEQ/L Urine Color YELLOW Urine Turbidity HAZY Urine pH 5.5 Urine Specific [place] 1.016 Urine Protein 100 mg/dL Urine Glucose (UA) 1000 mg/dL Urine Ketones NEG mg/dL Urine Occult Blood SMALL Urine Nitrite NEG Urine Bilirubin NEG Urine Urobilinogen LESS THAN 2.0 MG/DL Urine Leukocyte Esterase NEG Urine RBC 3 /hpf Urine WBC 2 /hpf Urine Bacteria OCC /hpf Microscopic Urinalysis Comment CATH-CULTURE IND Test 05/21/17 20:00 05/22/17 09:55 05/22/17 17:10 05/23/17 19:39 Phosphorus Level 2.5 MG/DL Blood Gas Ventilator Setting [id number] Blood Gas Inspired Oxygen 30 % Blood Gas Puncture Site RT RADIAL Blood Gas Patient Temperature 98.6 Blood Gas HCO3 22 mmol/L Blood Gas Base Excess -1.1 mmol/L Blood Gas Oxygen Saturation 82 % Arterial Blood pH 7.47 Arterial Blood Partial Pressure CO2 30 mmHg Arterial Blood Partial Pressure O2 47 mmHg Arterial Blood Oxygen Content 10.5 Vol % Arterial Blood Carboxyhemoglobin 1.2 % Arterial Blood Methemoglobin 1.3 % Blood Gas Hemoglobin 9.2 G/DL Oxygen Delivery Device NASAL CANNULA Blood Gas Liter Flow 5 L/M Procalcitonin 0.24 ng/mL Test 05/24/17 04:20 05/25/17 03:34 Neutrophils (%) (Auto) 75.3 % Lymphocytes (%) (Auto) 11.2 % Monocytes (%) (Auto) 10.0 % Eosinophils (%) (Auto) 2.1 % Basophils (%) (Auto) 1.4 % Neutrophils # (Auto) 7.4 TH/MM3 Lymphocytes # (Auto) 1.1 TH/MM3 Monocytes # (Auto) 1.0 TH/MM3 Eosinophils # (Auto) 0.2 TH/MM3 Basophils # (Auto) 0.1 TH/MM3 CBC Comment AUTO DIFF Differential Comment AUTO DIFF CONFIRMED White Blood Count 9.6 TH/MM3 Red Blood Count 3.79 MIL/MM3 Hemoglobin 11.3 GM/DL Hematocrit 33.9 % Mean Corpuscular Volume 89.3 FL Mean Corpuscular Hemoglobin 29.8 PG Mean Corpuscular Hemoglobin Concent 33.4 % Red Cell Distribution Width 15.0 % Platelet Count 341 TH/MM3 Mean Platelet Volume 8.6 FL Blood Urea Nitrogen 10 MG/DL Creatinine 0.83 MG/DL Random Glucose 92 MG/DL Calcium Level 8.4 MG/DL Sodium Level 137 MEQ/L Potassium Level 3.1 MEQ/L Chloride Level 101 MEQ/L Carbon Dioxide Level 27.0 MEQ/L Anion Gap 9 MEQ/L Estimat Glomerular Filtration Rate 95 ML/MIN Objective Remarks GENERAL: No acute distress. CARDIOVASCULAR: Regular rate and rhythm. RESPIRATORY: No accessory muscle use. Diminished breath sounds at the bases, otherwise clear to auscultation GASTROINTESTINAL: Abdomen soft, non-tender, nondistended. Hepatic and splenic margins not palpable. MUSCULOSKELETAL: Extremities without clubbing, cyanosis, or edema. No obvious deformities. NEUROLOGICAL: Awake and alert. No obvious cranial nerve deficits. Motor grossly within normal limits. Generalized weakness. PSYCHIATRIC: Appropriate mood and affect; insight and judgment normal. Medications and IVs Current Medications Medications (Trade) Dose Ordered Sig/Mohit Route Start Time Stop Time Status Last Admin (NS Flush) 2 ml UNSCH PRN IV FLUSH 05/18/17 15:45 (NS Flush) 2 ml BID IV FLUSH 05/18/17 21:00 05/25/17 09:30 (Tylenol) 650 mg Q6H PRN PO 05/18/17 15:45 05/21/17 20:39 (Tears Naturale Opth Soln) 1 drop TID EACH EYE 05/18/17 18:00 05/25/17 09:31 (Zofran Inj) 4 mg Q6H PRN IV PUSH 05/18/17 15:45 (Albuterol Neb) 2.5 mg Q2HR NEB PRN INH 05/18/17 15:45 05/23/17 00:47 (Heparin Inj) 5,000 units Q12H SQ 05/18/17 17:00 05/25/17 04:21 Miscellaneous Information 1 Q361D XX 05/18/17 15:45 (Chlorhexidine 2% Cloth) Taper DAILY@04 TOP 05/19/17 04:00 05/15/18 03:59 05/25/17 03:33 (Chlorhexidine 2% Cloth) 3 pack UNSCH PRN TOP 05/18/17 15:45 (Kajal-Colace) 1 tab BID PO 05/18/17 21:00 05/24/17 08:57 (Milk Of Magnesia Liq) 30 ml Q12H PRN PO 05/18/17 15:45 (Senokot) 17.2 mg Q12H PRN PO 05/18/17 15:45 (Dulcolax Supp) 10 mg DAILY PRN RECTAL 05/18/17 15:45 (Lactulose Liq) 30 ml DAILY PRN PO 05/18/17 15:45 (D50w (Vial) Inj) 50 ml UNSCH PRN IV PUSH 05/18/17 15:45 05/19/17 17:15 (Glucagon Inj) 1 mg UNSCH PRN OTHER 05/18/17 15:45 (Vitamin C) 500 mg BID PO 05/18/17 21:00 05/25/17 09:28 (Ecotrin Ec) 81 mg DAILY PO 05/19/17 09:00 05/25/17 09:28 (Lipitor) 20 mg HS PO 05/18/17 21:00 05/24/17 20:04 (Remeron Soltab Odt) 15 mg HS PO 05/18/17 21:00 05/24/17 20:04 (Trandate Inj) 10 mg Q1HR PRN IV PUSH 05/18/17 16:15 05/25/17 05:35 (Apresoline Inj) 10 mg Q1HR PRN IV PUSH 05/18/17 16:15 05/24/17 23:29 (Nitroglycerin 2% Oint) 2 inch Q6H PRN TOPICAL 05/18/17 17:00 (Theragran M Tab) 1 tab DAILY PO 05/19/17 09:00 05/25/17 09:29 Potassium Chloride 100 ml @ 50 mls/hr Q2H PRN IV 05/18/17 17:00 Potassium Chloride 100 ml @ 50 mls/hr Q2H PRN IV 05/18/17 17:00 05/25/17 10:37 (K-Lyte Cl Eff) 50 meq UNSCH PRN PO 05/18/17 17:00 Potassium Chloride 100 ml @ 25 mls/hr UNSCH PRN IV 05/18/17 17:00 Potassium Chloride 100 ml @ 50 mls/hr Q2H PRN IV 05/18/17 17:00 Magnesium Sulfate 4 gm/Sodium Chloride 100 ml @ 50 mls/hr UNSCH PRN IV 05/18/17 17:00 (Mag-Ox) 800 mg UNSCH PRN PO 05/18/17 17:00 Magnesium Sulfate 2 gm/Sodium Chloride 100 ml @ 50 mls/hr UNSCH PRN IV 05/18/17 17:00 (K-Phos) 2,000 mg Q4H PRN PO 05/18/17 17:00 Sodium Phosphate 30 mmol/Sodium Chloride 250 ml @ 42 mls/hr UNSCH PRN IV 05/18/17 17:00 05/21/17 08:21 (K-Phos) 2,000 mg UNSCH PRN PO/TUBE 05/18/17 17:00 Potassium Phosphate 30 mmol/ Sodium Chloride 260 ml @ 42 mls/hr UNSCH PRN IV 05/18/17 17:00 05/20/17 05:45 (Peridex 0.12% Liq) 15 ml BID@08,20 MT 05/18/17 20:00 05/25/17 08:00 Propofol 100 ml @ 0 mls/hr TITRATE PRN IV 05/18/17 18:00 Future Hold 05/22/17 05:45 Fentanyl Citrate 250 ml @ 5 mls/hr TITRATE PRN IV 05/18/17 18:00 Future Hold (NS Flush) DAILY IV FLUSH 05/19/17 09:00 05/25/17 09:30 (NS Flush) UNSCH PRN IV FLUSH 05/18/17 19:00 (NovoLIN R SUPPLEMENTAL SCALE) 1 Q6HR SQ 05/19/17 12:00 05/24/17 18:00 (Pepcid Liq) 20 mg BID NG 05/19/17 21:00 05/25/17 09:31 (Coreg) 6.25 mg Q12HR PO 05/19/17 21:00 05/25/17 09:28 (Catapres) 0.1 mg Q6H PRN PO 05/19/17 11:45 (Trandate Inj) 10 mg Q4H PRN IV PUSH 05/21/17 17:15 (Norvasc) 7.5 mg DAILY PO 05/22/17 10:15 05/25/17 09:28 (Pill Splitter) 1 ea UNSCH PRN OTHER 05/22/17 10:45 (Zithromax) 500 mg DAILY PO 05/22/17 15:00 05/31/17 14:59 05/25/17 09:29 (Dilantin) 100 mg Q8HR PO 05/24/17 14:00 05/25/17 09:28 (Ceftin) 500 mg Q12HR PO 05/25/17 09:00 05/31/17 08:59 05/25/17 09:00 A/P Assessment and Plan (1) Seizure ICD Code: R56.9 - Unspecified convulsions (2) Depression ICD Code: F32.9 - Major depressive disorder, single episode, unspecified (3) Dyslipidemia ICD Code: E78.5 - Hyperlipidemia, unspecified (4) Thrombocytosis ICD Code: D47.3 - Essential (hemorrhagic) thrombocythemia (5) Leukocytosis ICD Code: D72.829 - Elevated white blood cell count, unspecified Status: Acute (6) Peripheral angiopathy ICD Code: I73.9 - Peripheral vascular disease, unspecified Status: Acute (7) Encephalopathy ICD Code: G93.40 - Encephalopathy, unspecified Status: Acute (8) Carotid artery stenosis ICD Code: I65.29 - Occlusion and stenosis of unspecified carotid artery Status: Chronic (9) Elevated troponin ICD Code: R79.89 - Elevated troponin Status: Acute (10) Chronic systolic heart failure ICD Code: I50.22 - Chronic systolic (congestive) heart failure Status: Acute (11) COPD exacerbation ICD Code: J44.1 - Chronic obstructive pulmonary disease with (acute) exacerbation Status: Acute (12) PVD (peripheral vascular disease) ICD Code: I73.9 - Peripheral vascular disease, unspecified Status: Acute (13) Chronic back pain ICD Code: M54.9 - Dorsalgia, unspecified; G89.29 - Other chronic pain Status: Acute (14) Ulcer of left foot ICD Code: L97.529 - Non-pressure chronic ulcer of other part of left foot with unspecified severity Status: Acute Seizure History of right frontal parietal CVA with left-sided weakness History of right ICA occlusion Prior history of alcoholism Depression NOS Chronic opioid use CT brain revealed right frontoparietal temporal changes with ex vacuo dilatation. Right maxillary sinusitis MRI brain 05/19 revealed right MCA CVA with scattered white matter changes. No new infarct Received 1 g fosphenytoin in ED. 2 mg of lorazepam. Seizure precautions 05/20-EEG -moderate encephalopathy Phenytoin 100 mg IV every 8 hours. Transition to Oral Chronic systolic heart failure ejection fraction 35-40% Hypertension Hyperlipidemia Peripheral vascular occlusive disease Elevated troponin Echocardiogram 07/22 revealed EF 35-40%. LVH. Septal hypokinesis. Pulmonary arterial pressures 23 mmHg 05/19Repeat echocardiogram- EF 40-45%.Trace TR , PAP 39 Continue carvedilol 3.125 mg twice daily. Increased to 6.25 twice daily As needed labetalol/hydralazine/Nitropaste for hypertension Currently on atorvastatin 20 mg by mouth daily Coumadin aspirin 81 mg p.o. daily Currently not on diuretics Patient previously refused amputation to left lower extremity per Dr. Dasilva 02/22 Cycle troponins currently with downward trend Labetalol for systolic blood pressure greater than 160mmHg PRN Continue Norvasc Acute respiratory insufficiency History of tobaccoism/COPD strep pneumonia/H Flu PNA s/p intubation and extubation Albuterol/ipratropium aerosols every 6 hours with albuterol aerosols every 2 hours as needed dyspnea Chest x-ray revealed emphysematous changes. No focal infiltrate CTA neg for PE. Consistent with severe emphysema and infiltrates. Abx per ID. as per ID specialist Okay to be discharge Home on Ceftin by mouth. as per redevelopment specialist okay to discharge and follow as outpatient. History of esophagitis Gastroesophageal reflux disease Famotidine for GI prophylaxis Docusate sodium/senna 1 tablet twice daily for bowel regimen Speech to eval for regular diet. Chronic kidney disease stage III a 05/21 IV fluids discontinued Check urine electrolytes and eosinophils/renal ultrasound Monitor urine output Accurate I's and O's Monitor BMP Leukocytosis Thrombocytosis Currently on ferrous sulfate 325 mg p.o. twice daily Follow-up on coags Monitor CBC daily. Follow trends Osteoporosis/osteoarthritis Left heel ulcer Physical therapy evaluate and treat. Wound care evaluate left lower extremity. Prophylaxis -GI -famotidine -DVT -SCD/heparin subcu Discharge Planning Expected by Tomorrow. Austin Adhikari MD May 25, 2017 11:53
[2017-05-25] MEDS: INSULIN NovoLIN REGULAR SUPPLEMENTAL SCALE SQ SCH ×3 (12:00→23:11)
[2017-05-25] MEDS: cloNIDine HCL 0.1 MG TAB PO PRN (14:25)
[2017-05-25] MEDS: ACETAMINOPHEN 325 MG TAB PO PRN ×2 (16:47→22:26)
--- NOTE | 2017-05-25 17:57 | HHI.PR ---
Subjective Remarks better no issues on room air Objective Vital Signs Date Time Temp Pulse Resp B/P (MAP) Pulse Ox O2 Delivery O2 Flow Rate FiO2 05/25/17 17:00 68 05/25/17 16:00 97.5 71 28 136/75 (95) 95 05/25/17 16:00 68 05/25/17 15:00 69 05/25/17 14:29 98 Nasal Cannula 2.00 05/25/17 14:00 71 05/25/17 13:00 65 05/25/17 12:00 98.2 69 15 174/89 (117) 97 05/25/17 12:00 69 05/25/17 11:00 75 05/25/17 10:00 75 05/25/17 09:00 73 05/25/17 08:00 73 05/25/17 08:00 97.6 73 18 162/75 (104) 100 05/25/17 08:00 99 Nasal Cannula 2.00 05/25/17 07:30 73 19 176/81 (112) 98 05/25/17 07:00 71 05/25/17 07:00 71 32 166/80 (108) 97 05/25/17 06:00 68 05/25/17 04:00 72 05/25/17 04:00 98.8 72 19 159/69 (99) 99 05/25/17 02:00 79 05/25/17 00:00 98.6 75 13 181/80 (113) 100 05/25/17 00:00 75 05/24/17 22:50 22 05/24/17 22:00 73 05/24/17 20:24 97 Nasal Cannula 2.00 05/24/17 20:00 67 05/24/17 20:00 98.5 67 15 164/77 (106) 99 05/24/17 19:00 96 Nasal Cannula 5.00 05/24/17 18:00 76 I/O 05/24/17 05/24/17 05/24/17 05/25/17 05/25/17 05/25/17 07:00 15:00 23:00 07:00 15:00 23:00 Intake Total 240 ml 100 ml 300 ml 100 ml Output Total 850 ml 850 ml 1100 ml Balance -610 ml 100 ml -550 ml -1100 ml 100 ml Intake Oral 240 ml 300 ml IV Total 100 ml 100 ml Output Urine Total 850 ml 850 ml 1100 ml # Bowel Movements 0 0 0 Result Diagram: 05/25/17 0334 05/25/17 0334 Procedures Central line, Right jugular 05/18/17 Other Results PHYSICAL EXAMINATION: GENERAL APPEARANCE: The patient looks comfortable. He looks cachectic. NECK: Trachea midline. LUNGS: Decreased breath sounds bilateral with bibasilar crackles. HEART: S1, S2. ABDOMEN: Soft and nontender. EXTREMITIES: No edema. Again, the patient is cachectic. NEUROLOGIC: The patient is awake, Assessment and Plan Discussed Condition With ASSESSMENT AND PLAN: 1. Status post respiratory failure. resolved 2. Hypoxemia resolved . 3. chronic obstructive pulmonary disease. 4. Status post stroke. 5. Cachexia 6. pleural effusion better ok to leave icu will need pulm outpxt f/u I will sign off at this point Aman Menezes MD May 25, 2017 17:57
[2017-05-25] MEDS: MIRTAZAPINE ODT 15 MG TAB PO SCH (20:08)
[2017-05-25] MEDS: ATORVASTATIN 20 MG TAB PO SCH (20:08)
[2017-05-25] MEDS: hydrALAZINE HCL 20 MG/ML VIAL IV PUSH PRN (21:53)
[2017-05-26] VITALS (15 sets, daily range): BP systolic 139–197; BP diastolic 72–97; PULSE 69–83; RESP 13–40; TEMP 98.8–98.9; O2SAT 93–99
[2017-05-26] MEDS: CHLORHEXIDINE GLUCONATE 2 % 1 PACK (2 CLOTHS) TOP SCH (03:15)
[2017-05-26] MEDS: PHENYTOIN SODIUM 100 MG CAP PO SCH ×3 (05:09→21:01)
[2017-05-26] MEDS: HEPARIN SODIUM - SQ 10,000 UNITS/ML VIAL SQ SCH ×2 (05:10→17:26)
[2017-05-26] MEDS: INSULIN NovoLIN REGULAR SUPPLEMENTAL SCALE SQ SCH ×3 (06:00→17:02)
[2017-05-26] MEDS: CHLORHEXIDINE 0.12% (ORAL KIT) 15 ML CUP MT SCH ×2 (08:00→20:00)
--- NOTE | 2017-05-26 08:11 | HHI.PR ---
Subjective Remarks Hospital course: 57-year-old male. Date of admission 05/18/2017. 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 Today, he presents to [facility] ED from the correction with complaints of altered mental status and reported fever. According to documentation from ED visit, the paramedics documented that the correctionhome stager stated that they found him slumped over the bed. They reported that he had decreased mental status. They also reported a fever of 103. When paramedics arrived, they found him to be with normal temperature. He did appear altered and somewhat aggressive. There is no other further history elicited. Patient had a white blood cell count of 18,000. Potassium 2.5. Elevated troponin 0 0.24. EKG currently pending. CT brain revealed subtle increased right frontal parietal temporal changes with ex vacuo dilatation of the ventricles. Right maxillary sinusitis. Patient had a witnessed seizure in the ED was given 1 g of fosphenytoin and 2 mg of midazolam. 05/25: Seen by ID specialist with Sepsis fever and leukocytosis, Encephalopathy, due to Pneumonia, status post Respiratory failure extubated, previous CVA with Left sided weakness, resolved leukocytosis, continue Azithromycin, Ceftin, doing well from ID standpoint. Discussed with nurse Miss Lares Research Programmer working on discharge to SNF. Seen by security assurance specialist okay to discharge and follow as outpatient. 05/26: stable in his bedroom, discussed with nurse Miss Banks Research Programmer working in his discharge will continue Ceftin as recommended by ID specialist and following, by security assurance specialist as outpatient No nausea, vomit or diarrhea. Objective Vital Signs Date Time Temp Pulse Resp B/P (MAP) Pulse Ox O2 Delivery O2 Flow Rate FiO2 05/26/17 06:00 76 05/26/17 04:00 73 05/26/17 04:00 98.8 73 13 139/72 (94) 93 05/26/17 04:00 98.8 05/26/17 02:00 81 05/26/17 00:29 96 Nasal Cannula 2.00 05/26/17 00:00 69 05/26/17 00:00 69 15 165/80 (108) 95 05/25/17 22:00 69 05/25/17 20:00 74 05/25/17 20:00 98.0 74 15 174/82 (112) 95 05/25/17 19:00 96 05/25/17 18:00 66 05/25/17 17:00 68 05/25/17 16:00 97.5 71 28 136/75 (95) 95 05/25/17 16:00 68 05/25/17 15:30 94 05/25/17 15:00 69 05/25/17 14:35 Room Air 05/25/17 14:29 98 Nasal Cannula 2.00 05/25/17 14:00 71 05/25/17 13:00 65 05/25/17 12:00 98.2 69 15 174/89 (117) 97 05/25/17 12:00 69 05/25/17 11:00 75 05/25/17 10:00 75 05/25/17 09:00 73 I/O 05/25/17 05/25/17 05/25/17 05/26/17 05/26/17 05/26/17 07:00 15:00 23:00 07:00 15:00 23:00 Intake Total 200 ml 1657 ml 900 ml Output Total 1100 ml 1200 ml 1350 ml Balance -1100 ml 200 ml 457 ml -450 ml Intake Oral 1080 ml 900 ml IV Total 200 ml 577 ml Output Urine Total 1100 ml 1200 ml 1350 ml # Bowel Movements 0 0 0 Result Diagram: 05/25/17 0334 05/26/17 0027 Imaging Last Impressions Chest X-Ray 05/24/17 0600 Signed Impressions: Service Date/Time: May 04:36 - CONCLUSION: Interim extubation and nasogastric tube removal. Mild consolidation and small effusions at both bases superimposed on emphysema. Lacho Shi MD CT Angiography 05/23/17 0000 Signed Impressions: Service Date/Time: Tuesday, May 23, 2017 22:37 - CONCLUSION: 1. No pulmonary embolus. 2. Emphysema with suspected cor pulmonale. 3. Moderate pleural effusions and compressive/dependent atelectasis of both bases. 4. Patchy infiltrate in the mid and upper lungs, mostly on the right. 5. Left ventricular hypertrophy and coronary artery calcification. Lacho Shi MD Renal Ultrasound 05/19/17 0000 Signed Impressions: Service Date/Time: Friday, May 19, 2017 14:07 - CONCLUSION: Atrophic right kidney. Left kidney is unremarkable. Millard catheter in place. Lacho Morel MD Brain MRI 05/19/17 0000 Signed Impressions: Service Date/Time: Friday, May 19, 2017 08:27 - CONCLUSION: Old infarcts and extensive white matter disease. Marked atrophy without mass effect. Negative for acute ischemic event Galen Beal MD FACR Head CT 05/18/17 1218 Signed Impressions: Service Date/Time: Thursday, May 18, 2017 14:10 - CONCLUSION: 1. Although chronic appearing, there is interval worsening in the encephalomalacia changes in the right frontoparietal region as detailed above. Exvacuo dilatation of the adjacent ventricular system. 2. Nothing acute. 3. Severe chronic sinusitis the right maxillary antrum. Michael Cruz MD Procedures Central line, Right jugular 05/18/17 Other Results Laboratory Tests Test 05/18/17 12:30 05/18/17 17:15 05/18/17 18:50 05/19/17 06:00 Total Creatine Kinase 102 U/L Fibrinogen 499 mg/dL Nasal Screen MRSA (PCR) MRSA NOT DETECTED Prothrombin Time 11.2 SEC Prothromb Time International Ratio 1.1 RATIO Activated Partial Thromboplast Time 29.5 SEC Lactic Acid Level 1.5 mmol/L Ammonia 19 MCMOL/L Troponin I 0.47 NG/ML Test 05/19/17 14:55 05/20/17 04:30 05/21/17 01:05 05/21/17 10:50 Urine Hyaline Casts 2 /lpf Urine Mucus FEW /lpf Urine Eosinophils NONE SEEN /HPF Urine Random Creatinine LESS THAN 5.0 MG/DL Urine Random Sodium 103 MEQ/L Phenytoin (Dilantin) Level 14.5 MCG/ML Blood Urea Nitrogen 22 MG/DL Creatinine 1.00 MG/DL Random Glucose 112 MG/DL Total Protein 5.5 GM/DL Albumin 1.9 GM/DL Calcium Level 7.5 MG/DL Phosphorus Level 1.9 MG/DL Magnesium Level 1.9 MG/DL Alkaline Phosphatase 76 U/L Aspartate Amino Transf (AST/SGOT) 30 U/L Alanine Aminotransferase (ALT/SGPT) 26 U/L Total Bilirubin 0.2 MG/DL Sodium Level 147 MEQ/L Potassium Level 2.9 MEQ/L Chloride Level 116 MEQ/L Carbon Dioxide Level 24.5 MEQ/L Urine Color YELLOW Urine Turbidity HAZY Urine pH 5.5 Urine Specific [place] 1.016 Urine Protein 100 mg/dL Urine Glucose (UA) 1000 mg/dL Urine Ketones NEG mg/dL Urine Occult Blood SMALL Urine Nitrite NEG Urine Bilirubin NEG Urine Urobilinogen LESS THAN 2.0 MG/DL Urine Leukocyte Esterase NEG Urine RBC 3 /hpf Urine WBC 2 /hpf Urine Bacteria OCC /hpf Microscopic Urinalysis Comment CATH-CULTURE IND Test 05/21/17 20:00 05/22/17 09:55 05/22/17 17:10 05/23/17 19:39 Phosphorus Level 2.5 MG/DL Blood Gas Ventilator Setting [id number] Blood Gas Inspired Oxygen 30 % Blood Gas Puncture Site RT RADIAL Blood Gas Patient Temperature 98.6 Blood Gas HCO3 22 mmol/L Blood Gas Base Excess -1.1 mmol/L Blood Gas Oxygen Saturation 82 % Arterial Blood pH 7.47 Arterial Blood Partial Pressure CO2 30 mmHg Arterial Blood Partial Pressure O2 47 mmHg Arterial Blood Oxygen Content 10.5 Vol % Arterial Blood Carboxyhemoglobin 1.2 % Arterial Blood Methemoglobin 1.3 % Blood Gas Hemoglobin 9.2 G/DL Oxygen Delivery Device NASAL CANNULA Blood Gas Liter Flow 5 L/M Procalcitonin 0.24 ng/mL Test 05/24/17 04:20 05/25/17 03:34 05/26/17 00:27 Neutrophils (%) (Auto) 75.3 % Lymphocytes (%) (Auto) 11.2 % Monocytes (%) (Auto) 10.0 % Eosinophils (%) (Auto) 2.1 % Basophils (%) (Auto) 1.4 % Neutrophils # (Auto) 7.4 TH/MM3 Lymphocytes # (Auto) 1.1 TH/MM3 Monocytes # (Auto) 1.0 TH/MM3 Eosinophils # (Auto) 0.2 TH/MM3 Basophils # (Auto) 0.1 TH/MM3 CBC Comment AUTO DIFF Differential Comment AUTO DIFF CONFIRMED White Blood Count 9.6 TH/MM3 Red Blood Count 3.79 MIL/MM3 Hemoglobin 11.3 GM/DL Hematocrit 33.9 % Mean Corpuscular Volume 89.3 FL Mean Corpuscular Hemoglobin 29.8 PG Mean Corpuscular Hemoglobin Concent 33.4 % Red Cell Distribution Width 15.0 % Platelet Count 341 TH/MM3 Mean Platelet Volume 8.6 FL Blood Urea Nitrogen 10 MG/DL Creatinine 0.83 MG/DL Random Glucose 92 MG/DL Calcium Level 8.4 MG/DL Sodium Level 137 MEQ/L Potassium Level 3.1 MEQ/L 4.1 MEQ/L Chloride Level 101 MEQ/L Carbon Dioxide Level 27.0 MEQ/L Anion Gap 9 MEQ/L Estimat Glomerular Filtration Rate 95 ML/MIN Objective Remarks GENERAL: No acute distress. CARDIOVASCULAR: Regular rate and rhythm. RESPIRATORY: No accessory muscle use. Diminished breath sounds at the bases, otherwise clear to auscultation GASTROINTESTINAL: Abdomen soft, non-tender, nondistended. Hepatic and splenic margins not palpable. MUSCULOSKELETAL: Extremities without clubbing, cyanosis, or edema. No obvious deformities. NEUROLOGICAL: Awake and alert. No obvious cranial nerve deficits. Motor grossly within normal limits. Generalized weakness. PSYCHIATRIC: Appropriate mood and affect; insight and judgment normal. Medications and IVs Current Medications Medications (Trade) Dose Ordered Sig/Mohit Route Start Time Stop Time Status Last Admin (NS Flush) 2 ml UNSCH PRN IV FLUSH 05/18/17 15:45 (NS Flush) 2 ml BID IV FLUSH 05/18/17 21:00 05/25/17 20:10 (Tylenol) 650 mg Q6H PRN PO 05/18/17 15:45 05/25/17 22:26 (Tears Naturale Opth Soln) 1 drop TID EACH EYE 05/18/17 18:00 05/25/17 09:31 (Zofran Inj) 4 mg Q6H PRN IV PUSH 05/18/17 15:45 (Albuterol Neb) 2.5 mg Q2HR NEB PRN INH 05/18/17 15:45 05/23/17 00:47 (Heparin Inj) 5,000 units Q12H SQ 05/18/17 17:00 05/26/17 05:10 Miscellaneous Information 1 Q361D XX 05/18/17 15:45 (Chlorhexidine 2% Cloth) Taper DAILY@04 TOP 05/19/17 04:00 05/15/18 03:59 05/25/17 03:33 (Chlorhexidine 2% Cloth) 3 pack UNSCH PRN TOP 05/18/17 15:45 (Kajal-Colace) 1 tab BID PO 05/18/17 21:00 05/24/17 08:57 (Milk Of Magnesia Liq) 30 ml Q12H PRN PO 05/18/17 15:45 (Senokot) 17.2 mg Q12H PRN PO 05/18/17 15:45 (Dulcolax Supp) 10 mg DAILY PRN RECTAL 05/18/17 15:45 (Lactulose Liq) 30 ml DAILY PRN PO 05/18/17 15:45 (D50w (Vial) Inj) 50 ml UNSCH PRN IV PUSH 05/18/17 15:45 05/19/17 17:15 (Glucagon Inj) 1 mg UNSCH PRN OTHER 05/18/17 15:45 (Vitamin C) 500 mg BID PO 05/18/17 21:00 05/25/17 20:08 (Ecotrin Ec) 81 mg DAILY PO 05/19/17 09:00 05/25/17 09:28 (Lipitor) 20 mg HS PO 05/18/17 21:00 05/25/17 20:08 (Remeron Soltab Odt) 15 mg HS PO 05/18/17 21:00 05/25/17 20:08 (Trandate Inj) 10 mg Q1HR PRN IV PUSH 05/18/17 16:15 05/25/17 05:35 (Apresoline Inj) 10 mg Q1HR PRN IV PUSH 05/18/17 16:15 05/25/17 21:53 (Nitroglycerin 2% Oint) 2 inch Q6H PRN TOPICAL 05/18/17 17:00 (Theragran M Tab) 1 tab DAILY PO 05/19/17 09:00 05/25/17 09:29 Potassium Chloride 100 ml @ 50 mls/hr Q2H PRN IV 05/18/17 17:00 Potassium Chloride 100 ml @ 50 mls/hr Q2H PRN IV 05/18/17 17:00 05/25/17 16:56 (K-Lyte Cl Eff) 50 meq UNSCH PRN PO 05/18/17 17:00 Potassium Chloride 100 ml @ 25 mls/hr UNSCH PRN IV 05/18/17 17:00 Potassium Chloride 100 ml @ 50 mls/hr Q2H PRN IV 05/18/17 17:00 Magnesium Sulfate 4 gm/Sodium Chloride 100 ml @ 50 mls/hr UNSCH PRN IV 05/18/17 17:00 (Mag-Ox) 800 mg UNSCH PRN PO 05/18/17 17:00 Magnesium Sulfate 2 gm/Sodium Chloride 100 ml @ 50 mls/hr UNSCH PRN IV 05/18/17 17:00 (K-Phos) 2,000 mg Q4H PRN PO 05/18/17 17:00 Sodium Phosphate 30 mmol/Sodium Chloride 250 ml @ 42 mls/hr UNSCH PRN IV 05/18/17 17:00 05/21/17 08:21 (K-Phos) 2,000 mg UNSCH PRN PO/TUBE 05/18/17 17:00 Potassium Phosphate 30 mmol/ Sodium Chloride 260 ml @ 42 mls/hr UNSCH PRN IV 05/18/17 17:00 05/20/17 05:45 (Peridex 0.12% Liq) 15 ml BID@08,20 MT 05/18/17 20:00 05/25/17 20:08 Propofol 100 ml @ 0 mls/hr TITRATE PRN IV 05/18/17 18:00 Future Hold 05/22/17 05:45 Fentanyl Citrate 250 ml @ 5 mls/hr TITRATE PRN IV 05/18/17 18:00 Future Hold (NS Flush) DAILY IV FLUSH 05/19/17 09:00 05/25/17 09:30 (NS Flush) UNSCH PRN IV FLUSH 05/18/17 19:00 (NovoLIN R SUPPLEMENTAL SCALE) 1 Q6HR SQ 05/19/17 12:00 05/25/17 17:24 (Pepcid Liq) 20 mg BID NG 05/19/17 21:00 05/25/17 20:09 (Coreg) 6.25 mg Q12HR PO 05/19/17 21:00 05/25/17 20:08 (Catapres) 0.1 mg Q6H PRN PO 05/19/17 11:45 05/25/17 14:25 (Trandate Inj) 10 mg Q4H PRN IV PUSH 05/21/17 17:15 (Norvasc) 7.5 mg DAILY PO 05/22/17 10:15 05/25/17 09:28 (Pill Splitter) 1 ea UNSCH PRN OTHER 05/22/17 10:45 (Zithromax) 500 mg DAILY PO 05/22/17 15:00 05/31/17 14:59 05/25/17 09:29 (Dilantin) 100 mg Q8HR PO 05/24/17 14:00 05/26/17 05:09 (Ceftin) 500 mg Q12HR PO 05/25/17 09:00 05/31/17 08:59 05/25/17 20:07 A/P Assessment and Plan (1) Seizure ICD Code: R56.9 - Unspecified convulsions (2) Depression ICD Code: F32.9 - Major depressive disorder, single episode, unspecified (3) Dyslipidemia ICD Code: E78.5 - Hyperlipidemia, unspecified (4) Thrombocytosis ICD Code: D47.3 - Essential (hemorrhagic) thrombocythemia (5) Leukocytosis ICD Code: D72.829 - Elevated white blood cell count, unspecified Status: Acute (6) Peripheral angiopathy ICD Code: I73.9 - Peripheral vascular disease, unspecified Status: Acute (7) Encephalopathy ICD Code: G93.40 - Encephalopathy, unspecified Status: Acute (8) Carotid artery stenosis ICD Code: I65.29 - Occlusion and stenosis of unspecified carotid artery Status: Chronic (9) Elevated troponin ICD Code: R79.89 - Elevated troponin Status: Acute (10) Chronic systolic heart failure ICD Code: I50.22 - Chronic systolic (congestive) heart failure Status: Acute (11) COPD exacerbation ICD Code: J44.1 - Chronic obstructive pulmonary disease with (acute) exacerbation Status: Acute (12) PVD (peripheral vascular disease) ICD Code: I73.9 - Peripheral vascular disease, unspecified Status: Acute (13) Chronic back pain ICD Code: M54.9 - Dorsalgia, unspecified; G89.29 - Other chronic pain Status: Acute (14) Ulcer of left foot ICD Code: L97.529 - Non-pressure chronic ulcer of other part of left foot with unspecified severity Status: Acute Seizure History of right frontal parietal CVA with left-sided weakness History of right ICA occlusion Prior history of alcoholism Depression NOS Chronic opioid use CT brain revealed right frontoparietal temporal changes with ex vacuo dilatation. Right maxillary sinusitis MRI brain 05/19 revealed right MCA CVA with scattered white matter changes. No new infarct Received 1 g fosphenytoin in ED. 2 mg of lorazepam. Seizure precautions 05/20-EEG -moderate encephalopathy Phenytoin 100 mg IV every 8 hours. Transition to Oral Chronic systolic heart failure ejection fraction 35-40% Hypertension Hyperlipidemia Peripheral vascular occlusive disease Elevated troponin Echocardiogram 07/22 revealed EF 35-40%. LVH. Septal hypokinesis. Pulmonary arterial pressures 23 mmHg 05/19Repeat echocardiogram- EF 40-45%.Trace TR , PAP 39 Continue carvedilol 3.125 mg twice daily. Increased to 6.25 twice daily As needed labetalol/hydralazine/Nitropaste for hypertension Currently on atorvastatin 20 mg by mouth daily Coumadin aspirin 81 mg p.o. daily Currently not on diuretics Patient previously refused amputation to left lower extremity per Dr. Dasilva 02/22 Cycle troponins currently with downward trend Labetalol for systolic blood pressure greater than 160mmHg PRN Continue Norvasc Acute respiratory insufficiency History of tobaccoism/COPD strep pneumonia/H Flu PNA s/p intubation and extubation Albuterol/ipratropium aerosols every 6 hours with albuterol aerosols every 2 hours as needed dyspnea Chest x-ray revealed emphysematous changes. No focal infiltrate CTA neg for PE. Consistent with severe emphysema and infiltrates. Abx per ID. as per ID specialist Okay to be discharge Home on Ceftin by mouth. as per security assurance specialist okay to discharge and follow as outpatient. History of esophagitis Gastroesophageal reflux disease Famotidine for GI prophylaxis Docusate sodium/senna 1 tablet twice daily for bowel regimen Speech to eval for regular diet. Chronic kidney disease stage III a 05/21 IV fluids discontinued Check urine electrolytes and eosinophils/renal ultrasound Monitor urine output Accurate I's and O's Monitor BMP Leukocytosis Thrombocytosis Currently on ferrous sulfate 325 mg p.o. twice daily Follow-up on coags Monitor CBC daily. Follow trends Osteoporosis/osteoarthritis Left heel ulcer Will need to go to SNF, continue Ceftin as outpatient until 05/31/17 and follow security assurance specialist as outpatient. Prophylaxis -GI -famotidine -DVT -SCD/heparin subcu Discharge Planning Discharge to SNF today Austin Adhikari MD May 26, 2017 08:11
[2017-05-26] MEDS: FAMOTIDINE 40 MG/5 ML LIQ 50 ML BTL NG SCH ×2 (08:14→21:00)
[2017-05-26] MEDS: amLODIPine BESYLATE 5 MG TAB PO SCH (08:14)
[2017-05-26] MEDS: ASPIRIN EC 81 MG TABEC PO SCH (08:14)
[2017-05-26] MEDS: DOCUSATE SODIUM 50 MG/SENNA 8.6 MG TAB PO SCH ×2 (08:14→21:01)
[2017-05-26] MEDS: MULTIVITAMINS/MINERALS THERAPEUTIC TAB PO SCH (08:14)
[2017-05-26] MEDS: ASCORBIC ACID 500 MG TAB PO SCH ×2 (08:14→21:01)
[2017-05-26] MEDS: AZITHROMYCIN 250 MG TAB PO SCH (08:14)
[2017-05-26] MEDS: CARVEDILOL 3.125 MG TAB PO SCH ×2 (08:14→21:01)
[2017-05-26] MEDS ORDERED: AZIT250T3 PO (08:17)
[2017-05-26] MEDS ORDERED: CEFU1TAB20 PO (08:17)
[2017-05-26] MEDS ORDERED: DILA100C PO (08:17)
[2017-05-26] MEDS ORDERED: CARV3.125 PO (08:17)
--- NOTE | 2017-05-26 08:20 | HHI.DS ---
Discharge Summary Admission Date May 18, 2017 at 16:00 Discharge Date: May 26, 2017 Admitting Diagnosis Altered mental status, hyponatremia, seizure, chronic lower extremit (1) Seizure ICD Code: R56.9 - Unspecified convulsions Diagnosis: Principal (2) Depression ICD Code: F32.9 - Major depressive disorder, single episode, unspecified Diagnosis: Secondary (3) Dyslipidemia ICD Code: E78.5 - Hyperlipidemia, unspecified Diagnosis: Secondary (4) Thrombocytosis ICD Code: D47.3 - Essential (hemorrhagic) thrombocythemia Diagnosis: Secondary (5) Leukocytosis ICD Code: D72.829 - Elevated white blood cell count, unspecified Diagnosis: Secondary Status: Acute (6) Peripheral angiopathy ICD Code: I73.9 - Peripheral vascular disease, unspecified Diagnosis: Secondary Status: Acute (7) Encephalopathy ICD Code: G93.40 - Encephalopathy, unspecified Diagnosis: Principal Status: Acute (8) Carotid artery stenosis ICD Code: I65.29 - Occlusion and stenosis of unspecified carotid artery Diagnosis: Secondary Status: Chronic (9) Elevated troponin ICD Code: R79.89 - Elevated troponin Diagnosis: Principal Status: Acute (10) Chronic systolic heart failure ICD Code: I50.22 - Chronic systolic (congestive) heart failure Diagnosis: Secondary Status: Acute (11) COPD exacerbation ICD Code: J44.1 - Chronic obstructive pulmonary disease with (acute) exacerbation Diagnosis: Secondary Status: Acute (12) PVD (peripheral vascular disease) ICD Code: I73.9 - Peripheral vascular disease, unspecified Diagnosis: Secondary Status: Acute (13) Chronic back pain ICD Code: M54.9 - Dorsalgia, unspecified; G89.29 - Other chronic pain Diagnosis: Secondary Status: Acute (14) Ulcer of left foot ICD Code: L97.529 - Non-pressure chronic ulcer of other part of left foot with unspecified severity Diagnosis: Secondary Status: Acute Procedures Central line, Right jugular 05/18/17 Endotracheal Intubation and Extubation. Brief History - From Admission 57-year-old male. Date of admission 05/18/2017. 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 Today, he presents to [facility] ED from the [place] [facility] with complaints of altered mental status and reported fever. According to documentation from ED visit, the paramedics documented [place] [facility] stated that they found him slumped over the bed. They reported that he had decreased mental status. They also reported a fever of 103. When paramedics arrived, they found him to be with normal temperature. He did appear altered and somewhat aggressive. There is no other further history elicited. Patient had a white blood cell count of 18,000. Potassium 2.5. Elevated troponin 0 0.24. EKG currently pending. CT brain revealed subtle increased right frontal parietal temporal changes with ex vacuo dilatation of the ventricles. Right maxillary sinusitis. Patient had a witnessed seizure in the ED was given 1 g of fosphenytoin and 2 mg of midazolam. He is also received 1.5 L normal saline and is placed on potassium protocol for potassium 2.5. Magnesium is currently pending. CBC/BMP: 05/25/17 0334 05/26/17 0027 Significant Findings Laboratory Tests Test 05/23/17 19:39 05/24/17 04:20 05/25/17 03:34 05/26/17 00:27 Procalcitonin 0.24 ng/mL (0.00-0.08) Red Blood Count 3.88 MIL/MM3 (4.50-5.90) 3.79 MIL/MM3 (4.50-5.90) Hemoglobin 11.6 GM/DL (13.0-17.0) 11.3 GM/DL (13.0-17.0) Hematocrit 35.0 % (39.0-51.0) 33.9 % (39.0-51.0) Neutrophils (%) (Auto) 75.3 % (16.0-70.0) Monocytes (%) (Auto) 10.0 % (0.0-8.0) Monocytes # (Auto) 1.0 TH/MM3 (0-0.9) Random Glucose 65 MG/DL (74-106) Calcium Level 8.4 MG/DL (8.5-10.1) Potassium Level 3.1 MEQ/L (3.5-5.1) Imaging Last Impressions Chest X-Ray 05/24/17 0600 Signed Impressions: Service Date/Time: May 04:36 - CONCLUSION: Interim extubation and nasogastric tube removal. Mild consolidation and small effusions at both bases superimposed on emphysema. Lacho Shi MD CT Angiography 05/23/17 0000 Signed Impressions: Service Date/Time: Tuesday, May 23, 2017 22:37 - CONCLUSION: 1. No pulmonary embolus. 2. Emphysema with suspected cor pulmonale. 3. Moderate pleural effusions and compressive/dependent atelectasis of both bases. 4. Patchy infiltrate in the mid and upper lungs, mostly on the right. 5. Left ventricular hypertrophy and coronary artery calcification. Lacho Shi MD Renal Ultrasound 05/19/17 0000 Signed Impressions: Service Date/Time: Friday, May 19, 2017 14:07 - CONCLUSION: Atrophic right kidney. Left kidney is unremarkable. Millard catheter in place. Lacho Morel MD Brain MRI 05/19/17 0000 Signed Impressions: Service Date/Time: Friday, May 19, 2017 08:27 - CONCLUSION: Old infarcts and extensive white matter disease. Marked atrophy without mass effect. Negative for acute ischemic event Galen Beal MD FACR Head CT 05/18/17 1218 Signed Impressions: Service Date/Time: Thursday, May 18, 2017 14:10 - CONCLUSION: 1. Although chronic appearing, there is interval worsening in the encephalomalacia changes in the right frontoparietal region as detailed above. Exvacuo dilatation of the adjacent ventricular system. 2. Nothing acute. 3. Severe chronic sinusitis the right maxillary antrum. Michael Cruz MD PE at Discharge GENERAL: No acute distress. CARDIOVASCULAR: Regular rate and rhythm. RESPIRATORY: No accessory muscle use. Diminished breath sounds at the bases, otherwise clear to auscultation GASTROINTESTINAL: Abdomen soft, non-tender, nondistended. Hepatic and splenic margins not palpable. MUSCULOSKELETAL: Extremities without clubbing, cyanosis, or edema. No obvious deformities. NEUROLOGICAL: Awake and alert. No obvious cranial nerve deficits. Motor grossly within normal limits. Generalized weakness. PSYCHIATRIC: Appropriate mood and affect; insight and judgment normal. Hospital Course Hospital course: 57-year-old male. Date of admission 05/18/2017. 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 Today, he presents to [facility] ED from the [place] [facility] with complaints of altered mental status and reported fever. According to documentation from ED visit, the paramedics documented [place] [facility] stated that they found him slumped over the bed. They reported that he had decreased mental status. They also reported a fever of 103. When paramedics arrived, they found him to be with normal temperature. He did appear altered and somewhat aggressive. There is no other further history elicited. Patient had a white blood cell count of 18,000. Potassium 2.5. Elevated troponin 0 0.24. EKG currently pending. CT brain revealed subtle increased right frontal parietal temporal changes with ex vacuo dilatation of the ventricles. Right maxillary sinusitis. Patient had a witnessed seizure in the ED was given 1 g of fosphenytoin and 2 mg of midazolam. 05/25: Seen by ID specialist with Sepsis fever and leukocytosis, Encephalopathy, due to Pneumonia, status post Respiratory failure extubated, previous CVA with Left sided weakness, resolved leukocytosis, continue Azithromycin, Ceftin, doing well from ID standpoint. Discussed with nurse Miss Lares Application Penetration Tester working on discharge to SNF. Seen by prevention specialist okay to discharge and follow as outpatient. 05/26: stable in his bedroom, discussed with nurse Miss Banks Application Penetration Tester working in his discharge will continue Ceftin as recommended by ID specialist and following, by prevention specialist as outpatient No nausea, vomit or diarrhea. Assessment and Plan Seizure History of right frontal parietal CVA with left-sided weakness History of right ICA occlusion Prior history of alcoholism Depression NOS Chronic opioid use CT brain revealed right frontoparietal temporal changes with ex vacuo dilatation. Right maxillary sinusitis MRI brain 05/19 revealed right MCA CVA with scattered white matter changes. No new infarct Received 1 g fosphenytoin in ED. 2 mg of lorazepam. Seizure precautions 05/20-EEG -moderate encephalopathy Phenytoin 100 mg IV every 8 hours. Transition to Oral Chronic systolic heart failure ejection fraction 35-40% Hypertension Hyperlipidemia Peripheral vascular occlusive disease Elevated troponin Echocardiogram 07/22 revealed EF 35-40%. LVH. Septal hypokinesis. Pulmonary arterial pressures 23 mmHg 05/19Repeat echocardiogram- EF 40-45%.Trace TR , PAP 39 Continue carvedilol 3.125 mg twice daily. Increased to 6.25 twice daily As needed labetalol/hydralazine/Nitropaste for hypertension Currently on atorvastatin 20 mg by mouth daily Coumadin aspirin 81 mg p.o. daily Currently not on diuretics Patient previously refused amputation to left lower extremity per Dr. Dasilva 02/22 Cycle troponins currently with downward trend Labetalol for systolic blood pressure greater than 160mmHg PRN Continue Norvasc Acute respiratory insufficiency History of tobaccoism/COPD strep pneumonia/H Flu PNA s/p intubation and extubation Albuterol/ipratropium aerosols every 6 hours with albuterol aerosols every 2 hours as needed dyspnea Chest x-ray revealed emphysematous changes. No focal infiltrate CTA neg for PE. Consistent with severe emphysema and infiltrates. Abx per ID. as per ID specialist Okay to be discharge Home on Ceftin by mouth. as per prevention specialist okay to discharge and follow as outpatient. History of esophagitis Gastroesophageal reflux disease Famotidine for GI prophylaxis Docusate sodium/senna 1 tablet twice daily for bowel regimen Speech to eval for regular diet. Chronic kidney disease stage III a 05/21 IV fluids discontinued Check urine electrolytes and eosinophils/renal ultrasound Monitor urine output Accurate I's and O's Monitor BMP Leukocytosis Thrombocytosis Currently on ferrous sulfate 325 mg p.o. twice daily Follow-up on coags Monitor CBC daily. Follow trends Osteoporosis/osteoarthritis Left heel ulcer Will need to go to SNF, continue Ceftin as outpatient until 05/31/17 and follow prevention specialist as outpatient. Prophylaxis -GI -famotidine -DVT -SCD/heparin subcu Discharge Planning Discharge to SNF today Pt Condition on Discharge: Good Discharge Disposition: Discharge to SNF Discharge Time: > 30 minutes Discharge Instructions DIET: Follow Instructions for: Heart Healthy Diet Activities you can perform: Regular-No Restrictions Austin Adhikari MD May 26, 2017 08:20
[2017-05-26] MEDS ORDERED: SYMB160A INH (08:21)
[2017-05-26] MEDS: SODIUM CHLORIDE 0.9% FLUSH 10 ML FLUSH IV FLUSH SCH ×3 (09:00→20:59)
[2017-05-26] MEDS: CEFUROXIME AXETIL 500 MG TAB PO SCH ×2 (09:00→21:01)
[2017-05-26] MEDS: ARTIFICIAL TEARS OPTH SOLN 15 ML BTL EACH EYE SCH ×3 (09:00→17:02)
[2017-05-26] MEDS: hydrALAZINE HCL 20 MG/ML VIAL IV PUSH PRN (20:59)
[2017-05-26] MEDS: ATORVASTATIN 20 MG TAB PO SCH (21:00)
[2017-05-26] MEDS: MIRTAZAPINE ODT 15 MG TAB PO SCH (21:01)
[2017-05-27] VITALS (8 sets, daily range): BP systolic 157–222; BP diastolic 73–93; PULSE 78–93; RESP 11–19; TEMP 98–98.8; O2SAT 93–96
[2017-05-27] MEDS: CHLORHEXIDINE GLUCONATE 2 % 1 PACK (2 CLOTHS) TOP SCH (04:00)
[2017-05-27] MEDS: hydrALAZINE HCL 20 MG/ML VIAL IV PUSH PRN ×3 (04:09→21:48)
[2017-05-27] MEDS: HEPARIN SODIUM - SQ 10,000 UNITS/ML VIAL SQ SCH ×2 (05:56→16:53)
[2017-05-27] MEDS: PHENYTOIN SODIUM 100 MG CAP PO SCH ×3 (05:56→21:39)
[2017-05-27] MEDS: INSULIN NovoLIN REGULAR SUPPLEMENTAL SCALE SQ SCH ×4 (05:57→17:51)
[2017-05-27] MEDS: AZITHROMYCIN 250 MG TAB PO SCH (07:42)
[2017-05-27] MEDS: CARVEDILOL 3.125 MG TAB PO SCH ×2 (07:42→21:39)
[2017-05-27] MEDS: ASPIRIN EC 81 MG TABEC PO SCH (07:43)
[2017-05-27] MEDS: amLODIPine BESYLATE 5 MG TAB PO SCH (07:43)
[2017-05-27] MEDS: CEFUROXIME AXETIL 500 MG TAB PO SCH ×2 (07:43→21:39)
[2017-05-27] MEDS: ASCORBIC ACID 500 MG TAB PO SCH ×2 (07:43→21:39)
[2017-05-27] MEDS: MULTIVITAMINS/MINERALS THERAPEUTIC TAB PO SCH (07:43)
[2017-05-27] MEDS: SODIUM CHLORIDE 0.9% FLUSH 10 ML FLUSH IV FLUSH SCH ×3 (08:00→21:40)
[2017-05-27] MEDS: CHLORHEXIDINE 0.12% (ORAL KIT) 15 ML CUP MT SCH ×2 (08:00→19:36)
[2017-05-27] MEDS: ARTIFICIAL TEARS OPTH SOLN 15 ML BTL EACH EYE SCH ×3 (09:00→17:51)
[2017-05-27] MEDS: FAMOTIDINE 40 MG/5 ML LIQ 50 ML BTL NG SCH ×2 (09:00→21:41)
[2017-05-27] MEDS: DOCUSATE SODIUM 50 MG/SENNA 8.6 MG TAB PO SCH ×2 (09:00→21:39)
[2017-05-27] MEDS: cloNIDine HCL 0.1 MG TAB PO PRN (14:16)
[2017-05-27] MEDS ORDERED: cloNIDine HCL 0.1 MG TAB PO ONE (15:30)
--- NOTE | 2017-05-27 15:37 | HHI.PR ---
Subjective Remarks Hospital course: 57-year-old male. Date of admission 05/18/2017. 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 Today, he presents to [facility] ED from the halfway with complaints of altered mental status and reported fever. According to documentation from ED visit, the paramedics documented that the halfway[facility] home stated that they found him slumped over the bed. They reported that he had decreased mental status. They also reported a fever of 103. When paramedics arrived, they found him to be with normal temperature. He did appear altered and somewhat aggressive. There is no other further history elicited. Patient had a white blood cell count of 18,000. Potassium 2.5. Elevated troponin 0 0.24. EKG currently pending. CT brain revealed subtle increased right frontal parietal temporal changes with ex vacuo dilatation of the ventricles. Right maxillary sinusitis. Patient had a witnessed seizure in the ED was given 1 g of fosphenytoin and 2 mg of midazolam. 05/25: Seen by ID specialist with Sepsis fever and leukocytosis, Encephalopathy, due to Pneumonia, status post Respiratory failure extubated, previous CVA with Left sided weakness, resolved leukocytosis, continue Azithromycin, Ceftin, doing well from ID standpoint. Discussed with nurse Miss Lares Oncology Coordinator working on discharge to SNF. Seen by academic specialist okay to discharge and follow as outpatient. 05/26: stable in his bedroom, discussed with nurse Miss Banks Oncology Coordinator working in his discharge will continue Ceftin as recommended by ID specialist and following, by academic specialist as outpatient 05/27: Patient seen in Intensive Care Unit, discussed with nurse Mr. Rodrigues the patient has uncontrolled blood pressure at this time found with 198/90 mm Hg. giving Clonidine 0.1 mg on two opportunities and following, also increased Amlodipine to 10 mg daily, he will need to get his blood pressure under control before discharge, held discharge until improved. no nausea, vomit or diarrhea. Objective Vital Signs Date Time Temp Pulse Resp B/P (MAP) Pulse Ox O2 Delivery O2 Flow Rate FiO2 05/27/17 12:00 86 05/27/17 12:00 98.8 86 13 208/91 (130) 96 05/27/17 08:00 93 05/27/17 08:00 98.4 93 14 222/93 (136) 94 05/27/17 07:43 94 21 05/27/17 07:16 98 Room Air 05/27/17 04:00 98.7 89 19 193/90 (124) 96 05/27/17 04:00 89 05/27/17 00:00 81 05/27/17 00:00 98.5 81 13 157/73 (101) 93 05/26/17 20:00 98.9 81 40 197/90 (125) 96 05/26/17 20:00 81 05/26/17 19:00 98 Room Air 05/26/17 18:00 79 19 99 05/26/17 16:00 71 05/26/17 16:00 71 14 164/79 (107) 97 I/O 05/26/17 05/26/17 05/26/17 05/27/17 05/27/17 05/27/17 06:59 14:59 22:59 06:59 14:59 22:59 Intake Total 900 ml 420 ml 240 ml Output Total 1350 ml 700 ml 550 ml Balance -450 ml -280 ml -310 ml Intake Oral 900 ml 420 ml 240 ml Output Urine Total 1350 ml 700 ml 550 ml Bladder Scan Volume Amount 474 ml # Voids 2 # Bowel Movements 0 2 0 Result Diagram: 05/25/17 0334 05/26/17 0027 Imaging Last Impressions Chest X-Ray 05/24/17 0600 Signed Impressions: Service Date/Time: May 04:36 - CONCLUSION: Interim extubation and nasogastric tube removal. Mild consolidation and small effusions at both bases superimposed on emphysema. Lacho Shi MD CT Angiography 05/23/17 0000 Signed Impressions: Service Date/Time: Tuesday, May 23, 2017 22:37 - CONCLUSION: 1. No pulmonary embolus. 2. Emphysema with suspected cor pulmonale. 3. Moderate pleural effusions and compressive/dependent atelectasis of both bases. 4. Patchy infiltrate in the mid and upper lungs, mostly on the right. 5. Left ventricular hypertrophy and coronary artery calcification. Lacho Shi MD Renal Ultrasound 05/19/17 0000 Signed Impressions: Service Date/Time: Friday, May 19, 2017 14:07 - CONCLUSION: Atrophic right kidney. Left kidney is unremarkable. Millard catheter in place. Lacho Morel MD Brain MRI 05/19/17 0000 Signed Impressions: Service Date/Time: Friday, May 19, 2017 08:27 - CONCLUSION: Old infarcts and extensive white matter disease. Marked atrophy without mass effect. Negative for acute ischemic event Galen Beal MD FACR Head CT 05/18/17 1218 Signed Impressions: Service Date/Time: Thursday, May 18, 2017 14:10 - CONCLUSION: 1. Although chronic appearing, there is interval worsening in the encephalomalacia changes in the right frontoparietal region as detailed above. Exvacuo dilatation of the adjacent ventricular system. 2. Nothing acute. 3. Severe chronic sinusitis the right maxillary antrum. Michael Cruz MD Procedures Central line, Right jugular 05/18/17 Other Results Laboratory Tests Test 05/18/17 12:30 05/18/17 17:15 05/18/17 18:50 05/19/17 06:00 Total Creatine Kinase 102 U/L Fibrinogen 499 mg/dL Nasal Screen MRSA (PCR) MRSA NOT DETECTED Prothrombin Time 11.2 SEC Prothromb Time International Ratio 1.1 RATIO Activated Partial Thromboplast Time 29.5 SEC Lactic Acid Level 1.5 mmol/L Ammonia 19 MCMOL/L Troponin I 0.47 NG/ML Test 05/19/17 14:55 05/20/17 04:30 05/21/17 01:05 05/21/17 10:50 Urine Hyaline Casts 2 /lpf Urine Mucus FEW /lpf Urine Eosinophils NONE SEEN /HPF Urine Random Creatinine LESS THAN 5.0 MG/DL Urine Random Sodium 103 MEQ/L Phenytoin (Dilantin) Level 14.5 MCG/ML Blood Urea Nitrogen 22 MG/DL Creatinine 1.00 MG/DL Random Glucose 112 MG/DL Total Protein 5.5 GM/DL Albumin 1.9 GM/DL Calcium Level 7.5 MG/DL Phosphorus Level 1.9 MG/DL Magnesium Level 1.9 MG/DL Alkaline Phosphatase 76 U/L Aspartate Amino Transf (AST/SGOT) 30 U/L Alanine Aminotransferase (ALT/SGPT) 26 U/L Total Bilirubin 0.2 MG/DL Sodium Level 147 MEQ/L Potassium Level 2.9 MEQ/L Chloride Level 116 MEQ/L Carbon Dioxide Level 24.5 MEQ/L Urine Color YELLOW Urine Turbidity HAZY Urine pH 5.5 Urine Specific [place] 1.016 Urine Protein 100 mg/dL Urine Glucose (UA) 1000 mg/dL Urine Ketones NEG mg/dL Urine Occult Blood SMALL Urine Nitrite NEG Urine Bilirubin NEG Urine Urobilinogen LESS THAN 2.0 MG/DL Urine Leukocyte Esterase NEG Urine RBC 3 /hpf Urine WBC 2 /hpf Urine Bacteria OCC /hpf Microscopic Urinalysis Comment CATH-CULTURE IND Test 05/21/17 20:00 05/22/17 09:55 05/22/17 17:10 05/23/17 19:39 Phosphorus Level 2.5 MG/DL Blood Gas Ventilator Setting [id number] Blood Gas Inspired Oxygen 30 % Blood Gas Puncture Site RT RADIAL Blood Gas Patient Temperature 98.6 Blood Gas HCO3 22 mmol/L Blood Gas Base Excess -1.1 mmol/L Blood Gas Oxygen Saturation 82 % Arterial Blood pH 7.47 Arterial Blood Partial Pressure CO2 30 mmHg Arterial Blood Partial Pressure O2 47 mmHg Arterial Blood Oxygen Content 10.5 Vol % Arterial Blood Carboxyhemoglobin 1.2 % Arterial Blood Methemoglobin 1.3 % Blood Gas Hemoglobin 9.2 G/DL Oxygen Delivery Device NASAL CANNULA Blood Gas Liter Flow 5 L/M Procalcitonin 0.24 ng/mL Test 05/24/17 04:20 05/25/17 03:34 05/26/17 00:27 Neutrophils (%) (Auto) 75.3 % Lymphocytes (%) (Auto) 11.2 % Monocytes (%) (Auto) 10.0 % Eosinophils (%) (Auto) 2.1 % Basophils (%) (Auto) 1.4 % Neutrophils # (Auto) 7.4 TH/MM3 Lymphocytes # (Auto) 1.1 TH/MM3 Monocytes # (Auto) 1.0 TH/MM3 Eosinophils # (Auto) 0.2 TH/MM3 Basophils # (Auto) 0.1 TH/MM3 CBC Comment AUTO DIFF Differential Comment AUTO DIFF CONFIRMED White Blood Count 9.6 TH/MM3 Red Blood Count 3.79 MIL/MM3 Hemoglobin 11.3 GM/DL Hematocrit 33.9 % Mean Corpuscular Volume 89.3 FL Mean Corpuscular Hemoglobin 29.8 PG Mean Corpuscular Hemoglobin Concent 33.4 % Red Cell Distribution Width 15.0 % Platelet Count 341 TH/MM3 Mean Platelet Volume 8.6 FL Blood Urea Nitrogen 10 MG/DL Creatinine 0.83 MG/DL Random Glucose 92 MG/DL Calcium Level 8.4 MG/DL Sodium Level 137 MEQ/L Potassium Level 3.1 MEQ/L 4.1 MEQ/L Chloride Level 101 MEQ/L Carbon Dioxide Level 27.0 MEQ/L Anion Gap 9 MEQ/L Estimat Glomerular Filtration Rate 95 ML/MIN Objective Remarks GENERAL: No acute distress. CARDIOVASCULAR: Regular rate and rhythm. RESPIRATORY: No accessory muscle use. Diminished breath sounds at the bases, otherwise clear to auscultation GASTROINTESTINAL: Abdomen soft, non-tender, nondistended. Hepatic and splenic margins not palpable. MUSCULOSKELETAL: Extremities without clubbing, cyanosis, or edema. No obvious deformities. NEUROLOGICAL: Awake and alert. No obvious cranial nerve deficits. Motor grossly within normal limits. Generalized weakness. PSYCHIATRIC: Appropriate mood and affect; insight and judgment normal. Medications and IVs Current Medications Medications (Trade) Dose Ordered Sig/Mohit Route Start Time Stop Time Status Last Admin (NS Flush) 2 ml UNSCH PRN IV FLUSH 05/18/17 15:45 (NS Flush) 2 ml BID IV FLUSH 05/18/17 21:00 05/27/17 08:00 (Tylenol) 650 mg Q6H PRN PO 05/18/17 15:45 05/25/17 22:26 (Tears Naturale Opth Soln) 1 drop TID EACH EYE 05/18/17 18:00 05/25/17 09:31 (Zofran Inj) 4 mg Q6H PRN IV PUSH 05/18/17 15:45 (Albuterol Neb) 2.5 mg Q2HR NEB PRN INH 05/18/17 15:45 05/23/17 00:47 (Heparin Inj) 5,000 units Q12H SQ 05/18/17 17:00 05/27/17 05:56 Miscellaneous Information 1 Q361D XX 05/18/17 15:45 (Chlorhexidine 2% Cloth) Taper DAILY@04 TOP 05/19/17 04:00 05/15/18 03:59 05/25/17 03:33 (Chlorhexidine 2% Cloth) 3 pack UNSCH PRN TOP 05/18/17 15:45 (Kajal-Colace) 1 tab BID PO 05/18/17 21:00 05/26/17 21:01 (Milk Of Magnesia Liq) 30 ml Q12H PRN PO 05/18/17 15:45 05/26/17 09:25 (Senokot) 17.2 mg Q12H PRN PO 05/18/17 15:45 (Dulcolax Supp) 10 mg DAILY PRN RECTAL 05/18/17 15:45 (Lactulose Liq) 30 ml DAILY PRN PO 05/18/17 15:45 (D50w (Vial) Inj) 50 ml UNSCH PRN IV PUSH 05/18/17 15:45 05/19/17 17:15 (Glucagon Inj) 1 mg UNSCH PRN OTHER 05/18/17 15:45 (Vitamin C) 500 mg BID PO 05/18/17 21:00 05/27/17 07:43 (Ecotrin Ec) 81 mg DAILY PO 05/19/17 09:00 05/27/17 07:43 (Lipitor) 20 mg HS PO 05/18/17 21:00 05/26/17 21:00 (Remeron Soltab Odt) 15 mg HS PO 05/18/17 21:00 05/26/17 21:01 (Trandate Inj) 10 mg Q1HR PRN IV PUSH 05/18/17 16:15 05/25/17 05:35 (Apresoline Inj) 10 mg Q1HR PRN IV PUSH 05/18/17 16:15 05/27/17 04:09 (Nitroglycerin 2% Oint) 2 inch Q6H PRN TOPICAL 05/18/17 17:00 (Theragran M Tab) 1 tab DAILY PO 05/19/17 09:00 05/27/17 07:43 Potassium Chloride 100 ml @ 50 mls/hr Q2H PRN IV 05/18/17 17:00 Potassium Chloride 100 ml @ 50 mls/hr Q2H PRN IV 05/18/17 17:00 05/25/17 16:56 (K-Lyte Cl Eff) 50 meq UNSCH PRN PO 05/18/17 17:00 Potassium Chloride 100 ml @ 25 mls/hr UNSCH PRN IV 05/18/17 17:00 Potassium Chloride 100 ml @ 50 mls/hr Q2H PRN IV 05/18/17 17:00 Magnesium Sulfate 4 gm/Sodium Chloride 100 ml @ 50 mls/hr UNSCH PRN IV 05/18/17 17:00 (Mag-Ox) 800 mg UNSCH PRN PO 05/18/17 17:00 Magnesium Sulfate 2 gm/Sodium Chloride 100 ml @ 50 mls/hr UNSCH PRN IV 05/18/17 17:00 (K-Phos) 2,000 mg Q4H PRN PO 05/18/17 17:00 Sodium Phosphate 30 mmol/Sodium Chloride 250 ml @ 42 mls/hr UNSCH PRN IV 05/18/17 17:00 05/21/17 08:21 (K-Phos) 2,000 mg UNSCH PRN PO/TUBE 05/18/17 17:00 Potassium Phosphate 30 mmol/ Sodium Chloride 260 ml @ 42 mls/hr UNSCH PRN IV 05/18/17 17:00 05/20/17 05:45 (Peridex 0.12% Liq) 15 ml BID@08,20 MT 05/18/17 20:00 05/25/17 20:08 Propofol 100 ml @ 0 mls/hr TITRATE PRN IV 05/18/17 18:00 Future Hold 05/22/17 05:45 Fentanyl Citrate 250 ml @ 5 mls/hr TITRATE PRN IV 05/18/17 18:00 Future Hold (NS Flush) DAILY IV FLUSH 05/19/17 09:00 05/27/17 09:00 (NS Flush) UNSCH PRN IV FLUSH 05/18/17 19:00 (NovoLIN R SUPPLEMENTAL SCALE) 1 Q6HR SQ 05/19/17 12:00 05/25/17 17:24 (Pepcid Liq) 20 mg BID NG 05/19/17 21:00 05/26/17 21:00 (Coreg) 6.25 mg Q12HR PO 05/19/17 21:00 05/27/17 07:42 (Catapres) 0.1 mg Q6H PRN PO 05/19/17 11:45 05/27/17 14:16 (Trandate Inj) 10 mg Q4H PRN IV PUSH 05/21/17 17:15 (Norvasc) 7.5 mg DAILY PO 05/22/17 10:15 05/27/17 07:43 (Pill Splitter) 1 ea UNSCH PRN OTHER 05/22/17 10:45 (Zithromax) 500 mg DAILY PO 05/22/17 15:00 05/31/17 14:59 05/27/17 07:42 (Dilantin) 100 mg Q8HR PO 05/24/17 14:00 05/27/17 14:19 (Ceftin) 500 mg Q12HR PO 05/25/17 09:00 05/31/17 08:59 05/27/17 07:43 A/P Assessment and Plan (1) Seizure ICD Code: R56.9 - Unspecified convulsions (2) Depression ICD Code: F32.9 - Major depressive disorder, single episode, unspecified (3) Dyslipidemia ICD Code: E78.5 - Hyperlipidemia, unspecified (4) Thrombocytosis ICD Code: D47.3 - Essential (hemorrhagic) thrombocythemia (5) Leukocytosis ICD Code: D72.829 - Elevated white blood cell count, unspecified Status: Acute (6) Peripheral angiopathy ICD Code: I73.9 - Peripheral vascular disease, unspecified Status: Acute (7) Encephalopathy ICD Code: G93.40 - Encephalopathy, unspecified Status: Acute (8) Carotid artery stenosis ICD Code: I65.29 - Occlusion and stenosis of unspecified carotid artery Status: Chronic (9) Elevated troponin ICD Code: R79.89 - Elevated troponin Status: Acute (10) Chronic systolic heart failure ICD Code: I50.22 - Chronic systolic (congestive) heart failure Status: Acute (11) COPD exacerbation ICD Code: J44.1 - Chronic obstructive pulmonary disease with (acute) exacerbation Status: Acute (12) PVD (peripheral vascular disease) ICD Code: I73.9 - Peripheral vascular disease, unspecified Status: Acute (13) Chronic back pain ICD Code: M54.9 - Dorsalgia, unspecified; G89.29 - Other chronic pain Status: Acute (14) Ulcer of left foot ICD Code: L97.529 - Non-pressure chronic ulcer of other part of left foot with unspecified severity Status: Acute Seizure History of right frontal parietal CVA with left-sided weakness History of right ICA occlusion Prior history of alcoholism Depression NOS Chronic opioid use CT brain revealed right frontoparietal temporal changes with ex vacuo dilatation. Right maxillary sinusitis MRI brain 05/19 revealed right MCA CVA with scattered white matter changes. No new infarct Received 1 g fosphenytoin in ED. 2 mg of lorazepam. Seizure precautions 05/20-EEG -moderate encephalopathy Phenytoin 100 mg IV every 8 hours. Transitioned to Oral Chronic systolic heart failure ejection fraction 35-40% Hypertensive Urgency. Hyperlipidemia Peripheral vascular occlusive disease Elevated troponin Echocardiogram 07/22 revealed EF 35-40%. LVH. Septal hypokinesis. Pulmonary arterial pressures 23 mmHg 05/19Repeat echocardiogram- EF 40-45%.Trace TR , PAP 39 Continue carvedilol 3.125 mg twice daily. Increased to 6.25 twice daily As needed labetalol/hydralazine/Nitropaste for hypertension Currently on atorvastatin 20 mg by mouth daily Coumadin aspirin 81 mg p.o. daily Currently not on diuretics Patient previously refused amputation to left lower extremity per Dr. Dasilva 02/22 Cycle troponin currently with downward trend At this time on Hypertensive Urgency giving him Clonidine and increased Amlodipine to 10 mg daily. following. also added HCTZ 12.5 mg daily. Acute respiratory insufficiency History of tobaccoism/COPD strep pneumonia/H Flu PNA s/p intubation and extubation Albuterol/ipratropium aerosols every 6 hours with albuterol aerosols every 2 hours as needed dyspnea Chest x-ray revealed emphysematous changes. No focal infiltrate CTA neg for PE. Consistent with severe emphysema and infiltrates. Abx per ID. as per ID specialist Okay to be discharge Home on Ceftin by mouth. as per academic specialist okay to discharge and follow as outpatient. History of esophagitis Gastroesophageal reflux disease Famotidine for GI prophylaxis Docusate sodium/senna 1 tablet twice daily for bowel regimen Speech to eval for regular diet. Chronic kidney disease stage III a 05/21 IV fluids discontinued Check urine electrolytes and eosinophils/renal ultrasound Monitor urine output Accurate I's and O's Monitor BMP Leukocytosis Thrombocytosis Currently on ferrous sulfate 325 mg p.o. twice daily Improved. Osteoporosis/osteoarthritis Left heel ulcer Will need to go to SNF, continue Ceftin as outpatient until 05/31/17 and follow academic specialist as outpatient. Held discharge due to Hypertensive Urgency. Prophylaxis -GI -famotidine -DVT -SCD/heparin subcu Discharge Planning Held the discharge for today. Austin Adhikari MD May 27, 2017 3:37 pm
[2017-05-27] MEDS ORDERED: amLODIPine BESYLATE 5 MG TAB PO ONE (15:45)
[2017-05-27] MEDS: HYDROCHLOROTHIAZIDE 12.5 MG CAP PO SCH (16:53)
[2017-05-27] MEDS: ATORVASTATIN 20 MG TAB PO SCH (21:39)
[2017-05-27] MEDS: MIRTAZAPINE ODT 15 MG TAB PO SCH (21:48)
[2017-05-28] VITALS: BP 172/75; PULSE 79; RESP 12; TEMP 98.1; O2SAT 95
[2017-05-28 04:00] VITALS: BP 172/83; PULSE 79; RESP 19; TEMP 98.5; O2SAT 96
[2017-05-28] MEDS: CHLORHEXIDINE GLUCONATE 2 % 1 PACK (2 CLOTHS) TOP SCH (04:00)
[2017-05-28] MEDS: INSULIN NovoLIN REGULAR SUPPLEMENTAL SCALE SQ SCH ×3 (06:00→12:15)
[2017-05-28] MEDS: PHENYTOIN SODIUM 100 MG CAP PO SCH ×2 (06:01→12:15)
[2017-05-28] MEDS: HEPARIN SODIUM - SQ 10,000 UNITS/ML VIAL SQ SCH ×2 (06:01→16:25)
[2017-05-28 08:00] VITALS: BP 188/83; PULSE 80; PULSE 82; RESP 19; TEMP 98.3; O2SAT 92
[2017-05-28] MEDS: HYDROCHLOROTHIAZIDE 12.5 MG CAP PO SCH (08:01)
[2017-05-28] MEDS: FAMOTIDINE 40 MG/5 ML LIQ 50 ML BTL NG SCH (08:01)
[2017-05-28] MEDS: CEFUROXIME AXETIL 500 MG TAB PO SCH (08:01)
[2017-05-28] MEDS: ASCORBIC ACID 500 MG TAB PO SCH (08:01)
[2017-05-28] MEDS: CARVEDILOL 3.125 MG TAB PO SCH (08:02)
[2017-05-28] MEDS: MULTIVITAMINS/MINERALS THERAPEUTIC TAB PO SCH (08:02)
[2017-05-28] MEDS: DOCUSATE SODIUM 50 MG/SENNA 8.6 MG TAB PO SCH (08:03)
[2017-05-28] MEDS: ASPIRIN EC 81 MG TABEC PO SCH (08:03)
[2017-05-28] MEDS: AZITHROMYCIN 250 MG TAB PO SCH (08:04)
[2017-05-28] MEDS: SODIUM CHLORIDE 0.9% FLUSH 10 ML FLUSH IV FLUSH SCH ×2 (08:04→09:00)
[2017-05-28] MEDS: ARTIFICIAL TEARS OPTH SOLN 15 ML BTL EACH EYE SCH ×2 (08:05→12:16)
--- NOTE | 2017-05-28 08:41 | HHI.PR ---
Subjective Remarks Hospital course: 57-year-old male. Date of admission 05/18/2017. 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 Today, he presents to [facility] ED from the senior living with complaints of altered mental status and reported fever. According to documentation from ED visit, the paramedics documented that the senior livinghome care rn stated that they found him slumped over the bed. They reported that he had decreased mental status. They also reported a fever of 103. When paramedics arrived, they found him to be with normal temperature. He did appear altered and somewhat aggressive. There is no other further history elicited. Patient had a white blood cell count of 18,000. Potassium 2.5. Elevated troponin 0 0.24. EKG currently pending. CT brain revealed subtle increased right frontal parietal temporal changes with ex vacuo dilatation of the ventricles. Right maxillary sinusitis. Patient had a witnessed seizure in the ED was given 1 g of fosphenytoin and 2 mg of midazolam. 05/25: Seen by ID specialist with Sepsis fever and leukocytosis, Encephalopathy, due to Pneumonia, status post Respiratory failure extubated, previous CVA with Left sided weakness, resolved leukocytosis, continue Azithromycin, Ceftin, doing well from ID standpoint. Discussed with nurse Miss [employer] Inspector working on discharge to SNF. Seen by infection prevention specialist okay to discharge and follow as outpatient. 05/26: stable in his bedroom, discussed with nurse Miss [employer] Inspector working in his discharge will continue Ceftin as recommended by ID specialist and following, by infection prevention specialist as outpatient 05/27: Patient seen in Intensive Care Unit, discussed with nurse Mr. Rodrigues the patient has uncontrolled blood pressure at this time found with 198/90 mm Hg. giving Clonidine 0.1 mg on two opportunities and following, also increased Amlodipine to 10 mg daily, he will need to get his blood pressure under control before discharge, held discharge until improved. 05/28: The discharge was held yesterday due to uncontrolled blood pressure, today stable discussed with nurse no new complaint okay to discharge to SNF later today.No nausea, vomit or diarrhea. Objective Vital Signs Date Time Temp Pulse Resp B/P (MAP) Pulse Ox O2 Delivery O2 Flow Rate FiO2 05/28/17 07:00 93 Room Air 05/28/17 04:00 79 05/28/17 04:00 98.5 79 19 172/83 (112) 96 05/28/17 00:00 79 05/28/17 00:00 98.1 79 12 172/75 (107) 95 05/27/17 20:58 96 21 05/27/17 20:00 98.0 82 11 175/79 (111) 95 05/27/17 20:00 82 05/27/17 19:00 91 Room Air 05/27/17 16:00 78 05/27/17 16:00 98.4 78 13 182/85 (117) 96 05/27/17 12:00 86 05/27/17 12:00 98.8 86 13 208/91 (130) 96 I/O 05/27/17 05/27/17 05/27/17 05/28/17 05/28/17 05/28/17 06:59 14:59 22:59 06:59 14:59 22:59 Intake Total 240 ml 240 ml Output Total 550 ml 400 ml 625 ml Balance -310 ml -400 ml -385 ml Intake Oral 240 ml 240 ml Output Urine Total 550 ml 400 ml 625 ml # Voids 2 2 1 # Bowel Movements 0 0 0 Result Diagram: 05/25/17 0334 05/26/17 0027 Imaging Last Impressions Chest X-Ray 05/24/17 0600 Signed Impressions: Service Date/Time: May 04:36 - CONCLUSION: Interim extubation and nasogastric tube removal. Mild consolidation and small effusions at both bases superimposed on emphysema. Lacho Shi MD CT Angiography 05/23/17 0000 Signed Impressions: Service Date/Time: Tuesday, May 23, 2017 22:37 - CONCLUSION: 1. No pulmonary embolus. 2. Emphysema with suspected cor pulmonale. 3. Moderate pleural effusions and compressive/dependent atelectasis of both bases. 4. Patchy infiltrate in the mid and upper lungs, mostly on the right. 5. Left ventricular hypertrophy and coronary artery calcification. Lacho Shi MD Renal Ultrasound 05/19/17 0000 Signed Impressions: Service Date/Time: Friday, May 19, 2017 14:07 - CONCLUSION: Atrophic right kidney. Left kidney is unremarkable. Millard catheter in place. Lacho Morel MD Brain MRI 05/19/17 0000 Signed Impressions: Service Date/Time: Friday, May 19, 2017 08:27 - CONCLUSION: Old infarcts and extensive white matter disease. Marked atrophy without mass effect. Negative for acute ischemic event Galen Beal MD FACR Head CT 05/18/17 1218 Signed Impressions: Service Date/Time: Thursday, May 18, 2017 14:10 - CONCLUSION: 1. Although chronic appearing, there is interval worsening in the encephalomalacia changes in the right frontoparietal region as detailed above. Exvacuo dilatation of the adjacent ventricular system. 2. Nothing acute. 3. Severe chronic sinusitis the right maxillary antrum. Michael Cruz MD Procedures Central line, Right jugular 05/18/17 Other Results Laboratory Tests Test 05/18/17 12:30 05/18/17 17:15 05/18/17 18:50 05/19/17 06:00 Total Creatine Kinase 102 U/L Fibrinogen 499 mg/dL Nasal Screen MRSA (PCR) MRSA NOT DETECTED Prothrombin Time 11.2 SEC Prothromb Time International Ratio 1.1 RATIO Activated Partial Thromboplast Time 29.5 SEC Lactic Acid Level 1.5 mmol/L Ammonia 19 MCMOL/L Troponin I 0.47 NG/ML Test 05/19/17 14:55 05/20/17 04:30 05/21/17 01:05 05/21/17 10:50 Urine Hyaline Casts 2 /lpf Urine Mucus FEW /lpf Urine Eosinophils NONE SEEN /HPF Urine Random Creatinine LESS THAN 5.0 MG/DL Urine Random Sodium 103 MEQ/L Phenytoin (Dilantin) Level 14.5 MCG/ML Blood Urea Nitrogen 22 MG/DL Creatinine 1.00 MG/DL Random Glucose 112 MG/DL Total Protein 5.5 GM/DL Albumin 1.9 GM/DL Calcium Level 7.5 MG/DL Phosphorus Level 1.9 MG/DL Magnesium Level 1.9 MG/DL Alkaline Phosphatase 76 U/L Aspartate Amino Transf (AST/SGOT) 30 U/L Alanine Aminotransferase (ALT/SGPT) 26 U/L Total Bilirubin 0.2 MG/DL Sodium Level 147 MEQ/L Potassium Level 2.9 MEQ/L Chloride Level 116 MEQ/L Carbon Dioxide Level 24.5 MEQ/L Urine Color YELLOW Urine Turbidity HAZY Urine pH 5.5 Urine Specific [place] 1.016 Urine Protein 100 mg/dL Urine Glucose (UA) 1000 mg/dL Urine Ketones NEG mg/dL Urine Occult Blood SMALL Urine Nitrite NEG Urine Bilirubin NEG Urine Urobilinogen LESS THAN 2.0 MG/DL Urine Leukocyte Esterase NEG Urine RBC 3 /hpf Urine WBC 2 /hpf Urine Bacteria OCC /hpf Microscopic Urinalysis Comment CATH-CULTURE IND Test 05/21/17 20:00 05/22/17 09:55 05/22/17 17:10 05/23/17 19:39 Phosphorus Level 2.5 MG/DL Blood Gas Ventilator Setting [id number] Blood Gas Inspired Oxygen 30 % Blood Gas Puncture Site RT RADIAL Blood Gas Patient Temperature 98.6 Blood Gas HCO3 22 mmol/L Blood Gas Base Excess -1.1 mmol/L Blood Gas Oxygen Saturation 82 % Arterial Blood pH 7.47 Arterial Blood Partial Pressure CO2 30 mmHg Arterial Blood Partial Pressure O2 47 mmHg Arterial Blood Oxygen Content 10.5 Vol % Arterial Blood Carboxyhemoglobin 1.2 % Arterial Blood Methemoglobin 1.3 % Blood Gas Hemoglobin 9.2 G/DL Oxygen Delivery Device NASAL CANNULA Blood Gas Liter Flow 5 L/M Procalcitonin 0.24 ng/mL Test 05/24/17 04:20 05/25/17 03:34 05/26/17 00:27 Neutrophils (%) (Auto) 75.3 % Lymphocytes (%) (Auto) 11.2 % Monocytes (%) (Auto) 10.0 % Eosinophils (%) (Auto) 2.1 % Basophils (%) (Auto) 1.4 % Neutrophils # (Auto) 7.4 TH/MM3 Lymphocytes # (Auto) 1.1 TH/MM3 Monocytes # (Auto) 1.0 TH/MM3 Eosinophils # (Auto) 0.2 TH/MM3 Basophils # (Auto) 0.1 TH/MM3 CBC Comment AUTO DIFF Differential Comment AUTO DIFF CONFIRMED White Blood Count 9.6 TH/MM3 Red Blood Count 3.79 MIL/MM3 Hemoglobin 11.3 GM/DL Hematocrit 33.9 % Mean Corpuscular Volume 89.3 FL Mean Corpuscular Hemoglobin 29.8 PG Mean Corpuscular Hemoglobin Concent 33.4 % Red Cell Distribution Width 15.0 % Platelet Count 341 TH/MM3 Mean Platelet Volume 8.6 FL Blood Urea Nitrogen 10 MG/DL Creatinine 0.83 MG/DL Random Glucose 92 MG/DL Calcium Level 8.4 MG/DL Sodium Level 137 MEQ/L Potassium Level 3.1 MEQ/L 4.1 MEQ/L Chloride Level 101 MEQ/L Carbon Dioxide Level 27.0 MEQ/L Anion Gap 9 MEQ/L Estimat Glomerular Filtration Rate 95 ML/MIN Objective Remarks GENERAL: No acute distress. CARDIOVASCULAR: Regular rate and rhythm. RESPIRATORY: No accessory muscle use. Diminished breath sounds at the bases, otherwise clear to auscultation GASTROINTESTINAL: Abdomen soft, non-tender, nondistended. Hepatic and splenic margins not palpable. MUSCULOSKELETAL: Extremities without clubbing, cyanosis, or edema. No obvious deformities. NEUROLOGICAL: Awake and alert. No obvious cranial nerve deficits. Motor grossly within normal limits. Generalized weakness. PSYCHIATRIC: Appropriate mood and affect; insight and judgment normal. Medications and IVs Current Medications Medications (Trade) Dose Ordered Sig/Mohit Route Start Time Stop Time Status Last Admin (NS Flush) 2 ml UNSCH PRN IV FLUSH 05/18/17 15:45 (NS Flush) 2 ml BID IV FLUSH 05/18/17 21:00 05/28/17 08:04 (Tylenol) 650 mg Q6H PRN PO 05/18/17 15:45 05/25/17 22:26 (Tears Naturale Opth Soln) 1 drop TID EACH EYE 05/18/17 18:00 05/28/17 08:05 (Zofran Inj) 4 mg Q6H PRN IV PUSH 05/18/17 15:45 (Albuterol Neb) 2.5 mg Q2HR NEB PRN INH 05/18/17 15:45 05/23/17 00:47 (Heparin Inj) 5,000 units Q12H SQ 05/18/17 17:00 05/28/17 06:01 Miscellaneous Information 1 Q361D XX 05/18/17 15:45 (Chlorhexidine 2% Cloth) Taper DAILY@04 TOP 05/19/17 04:00 05/15/18 03:59 05/25/17 03:33 (Chlorhexidine 2% Cloth) 3 pack UNSCH PRN TOP 05/18/17 15:45 (Kajal-Colace) 1 tab BID PO 05/18/17 21:00 05/28/17 08:03 (Senokot) 17.2 mg Q12H PRN PO 05/18/17 15:45 (Dulcolax Supp) 10 mg DAILY PRN RECTAL 05/18/17 15:45 (Lactulose Liq) 30 ml DAILY PRN PO 05/18/17 15:45 (D50w (Vial) Inj) 50 ml UNSCH PRN IV PUSH 05/18/17 15:45 05/19/17 17:15 (Glucagon Inj) 1 mg UNSCH PRN OTHER 05/18/17 15:45 (Vitamin C) 500 mg BID PO 05/18/17 21:00 05/28/17 08:01 (Ecotrin Ec) 81 mg DAILY PO 05/19/17 09:00 05/28/17 08:03 (Lipitor) 20 mg HS PO 05/18/17 21:00 05/27/17 21:39 (Remeron Soltab Odt) 15 mg HS PO 05/18/17 21:00 05/27/17 21:48 (Trandate Inj) 10 mg Q1HR PRN IV PUSH 05/18/17 16:15 05/25/17 05:35 (Apresoline Inj) 10 mg Q1HR PRN IV PUSH 05/18/17 16:15 05/27/17 21:48 (Nitroglycerin 2% Oint) 2 inch Q6H PRN TOPICAL 05/18/17 17:00 (Theragran M Tab) 1 tab DAILY PO 05/19/17 09:00 05/28/17 08:02 (Peridex 0.12% Liq) 15 ml BID@08,20 MT 05/18/17 20:00 05/25/17 20:08 (NS Flush) DAILY IV FLUSH 05/19/17 09:00 05/27/17 09:00 (NS Flush) UNSCH PRN IV FLUSH 05/18/17 19:00 (NovoLIN R SUPPLEMENTAL SCALE) 1 Q6HR SQ 05/19/17 12:00 05/25/17 17:24 (Pepcid Liq) 20 mg BID NG 05/19/17 21:00 05/28/17 08:01 (Catapres) 0.1 mg Q6H PRN PO 05/19/17 11:45 05/27/17 14:16 (Trandate Inj) 10 mg Q4H PRN IV PUSH 05/21/17 17:15 (Pill Splitter) 1 ea UNSCH PRN OTHER 05/22/17 10:45 (Zithromax) 500 mg DAILY PO 05/22/17 15:00 05/31/17 14:59 05/28/17 08:04 (Dilantin) 100 mg Q8HR PO 05/24/17 14:00 05/28/17 06:01 (Ceftin) 500 mg Q12HR PO 05/25/17 09:00 05/31/17 08:59 05/28/17 08:01 (Norvasc) 10 mg DAILY PO 05/28/17 09:00 05/28/17 08:02 (Microzide) 12.5 mg DAILY PO 05/27/17 15:45 05/28/17 08:01 (Coreg) 12.5 mg Q12HR PO 05/28/17 09:00 UNV A/P Assessment and Plan (1) Seizure ICD Code: R56.9 - Unspecified convulsions (2) Depression ICD Code: F32.9 - Major depressive disorder, single episode, unspecified (3) Dyslipidemia ICD Code: E78.5 - Hyperlipidemia, unspecified (4) Thrombocytosis ICD Code: D47.3 - Essential (hemorrhagic) thrombocythemia (5) Leukocytosis ICD Code: D72.829 - Elevated white blood cell count, unspecified Status: Acute (6) Peripheral angiopathy ICD Code: I73.9 - Peripheral vascular disease, unspecified Status: Acute (7) Encephalopathy ICD Code: G93.40 - Encephalopathy, unspecified Status: Acute (8) Carotid artery stenosis ICD Code: I65.29 - Occlusion and stenosis of unspecified carotid artery Status: Chronic (9) Elevated troponin ICD Code: R79.89 - Elevated troponin Status: Acute (10) Chronic systolic heart failure ICD Code: I50.22 - Chronic systolic (congestive) heart failure Status: Acute (11) COPD exacerbation ICD Code: J44.1 - Chronic obstructive pulmonary disease with (acute) exacerbation Status: Acute (12) PVD (peripheral vascular disease) ICD Code: I73.9 - Peripheral vascular disease, unspecified Status: Acute (13) Chronic back pain ICD Code: M54.9 - Dorsalgia, unspecified; G89.29 - Other chronic pain Status: Acute (14) Ulcer of left foot ICD Code: L97.529 - Non-pressure chronic ulcer of other part of left foot with unspecified severity Status: Acute Seizure History of right frontal parietal CVA with left-sided weakness History of right ICA occlusion Prior history of alcoholism Depression NOS Chronic opioid use CT brain revealed right frontoparietal temporal changes with ex vacuo dilatation. Right maxillary sinusitis MRI brain 05/19 revealed right MCA CVA with scattered white matter changes. No new infarct Received 1 g fosphenytoin in ED. 2 mg of lorazepam. Seizure precautions 05/20-EEG -moderate encephalopathy Phenytoin 100 mg IV every 8 hours. Transitioned to Oral Chronic systolic heart failure ejection fraction 35-40% Hypertensive Urgency. Hyperlipidemia Peripheral vascular occlusive disease Elevated troponin Echocardiogram 07/22 revealed EF 35-40%. LVH. Septal hypokinesis. Pulmonary arterial pressures 23 mmHg 05/19Repeat echocardiogram- EF 40-45%.Trace TR , PAP 39 Continue carvedilol 3.125 mg twice daily. Increased to 6.25 twice daily As needed labetalol/hydralazine/Nitropaste for hypertension Currently on atorvastatin 20 mg by mouth daily Coumadin aspirin 81 mg p.o. daily Currently not on diuretics Patient previously refused amputation to left lower extremity per Dr. Dasilva 02/22 Cycle troponin currently with downward trend Better blood pressure okay to discharge today to SNF scripts given and will follow PCP as outpatient. Acute respiratory insufficiency History of tobaccoism/COPD strep pneumonia/H Flu PNA s/p intubation and extubation Albuterol/ipratropium aerosols every 6 hours with albuterol aerosols every 2 hours as needed dyspnea Chest x-ray revealed emphysematous changes. No focal infiltrate CTA neg for PE. Consistent with severe emphysema and infiltrates. Abx per ID. as per ID specialist Okay to be discharge Home on Ceftin by mouth. as per infection prevention specialist okay to discharge and follow as outpatient. History of esophagitis Gastroesophageal reflux disease Famotidine for GI prophylaxis Docusate sodium/senna 1 tablet twice daily for bowel regimen Speech to eval for regular diet. Chronic kidney disease stage III a 05/21 IV fluids discontinued Check urine electrolytes and eosinophils/renal ultrasound Monitor urine output Accurate I's and O's Monitor BMP Leukocytosis Thrombocytosis Currently on ferrous sulfate 325 mg p.o. twice daily Improved. Osteoporosis/osteoarthritis Left heel ulcer Will need to go to SNF, continue Ceftin as outpatient until 05/31/17 and follow infection prevention specialist as outpatient. Discharge Today. Prophylaxis -GI -famotidine -DVT -SCD/heparin subcu Discharge Planning Discharge to SNF today. Austin Adhikari MD May 28, 2017 08:41
[2017-05-28] MEDS ORDERED: CARVEDILOL 6.25 MG TAB PO ONE (09:00)
[2017-05-28] MEDS ORDERED: CARVEDILOL 3.125 MG TAB PO SCH (09:00)
[2017-05-28 09:49] VITALS: O2SAT 97
[2017-05-28 12:00] VITALS: BP 124/57; PULSE 66; PULSE 86; RESP 16; TEMP 98.5; O2SAT 97
[2017-05-28] MEDS: CHLORHEXIDINE 0.12% (ORAL KIT) 15 ML CUP MT SCH (12:17)
[2017-05-28] MEDS ORDERED: HYDR12.57 PO (15:11)
[2017-05-28] MEDS ORDERED: AMLO10 PO (15:11)
[2017-05-28] MEDS ORDERED: CARV12.5 PO (15:11)
[2017-05-28 16:00] VITALS: BP 160/70; PULSE 79; RESP 12; TEMP 98.2; O2SAT 98
--- NOTE | 2017-05-28 16:04 | HHI.DS ---
Discharge Summary Admission Date May 18, 2017 at 16:00 Discharge Date: May 28, 2017 Admitting Diagnosis Altered mental status, hyponatremia, seizure, chronic lower extremit (1) Seizure ICD Code: R56.9 - Unspecified convulsions Diagnosis: Principal (2) Depression ICD Code: F32.9 - Major depressive disorder, single episode, unspecified Diagnosis: Secondary (3) Dyslipidemia ICD Code: E78.5 - Hyperlipidemia, unspecified Diagnosis: Secondary (4) Thrombocytosis ICD Code: D47.3 - Essential (hemorrhagic) thrombocythemia Diagnosis: Secondary (5) Leukocytosis ICD Code: D72.829 - Elevated white blood cell count, unspecified Diagnosis: Secondary Status: Acute (6) Peripheral angiopathy ICD Code: I73.9 - Peripheral vascular disease, unspecified Diagnosis: Secondary Status: Acute (7) Encephalopathy ICD Code: G93.40 - Encephalopathy, unspecified Diagnosis: Principal Status: Acute (8) Carotid artery stenosis ICD Code: I65.29 - Occlusion and stenosis of unspecified carotid artery Diagnosis: Secondary Status: Chronic (9) Elevated troponin ICD Code: R79.89 - Elevated troponin Diagnosis: Principal Status: Acute (10) Chronic systolic heart failure ICD Code: I50.22 - Chronic systolic (congestive) heart failure Diagnosis: Secondary Status: Acute (11) COPD exacerbation ICD Code: J44.1 - Chronic obstructive pulmonary disease with (acute) exacerbation Diagnosis: Secondary Status: Acute (12) PVD (peripheral vascular disease) ICD Code: I73.9 - Peripheral vascular disease, unspecified Diagnosis: Secondary Status: Acute (13) Chronic back pain ICD Code: M54.9 - Dorsalgia, unspecified; G89.29 - Other chronic pain Diagnosis: Secondary Status: Acute (14) Ulcer of left foot ICD Code: L97.529 - Non-pressure chronic ulcer of other part of left foot with unspecified severity Diagnosis: Secondary Status: Acute Procedures Central line, Right jugular 05/18/17 Endotracheal Intubation and Extubation. Brief History - From Admission 57-year-old male. Date of admission 05/18/2017. 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 Today, he presents to [facility] ED from the detention with complaints of altered mental status and reported fever. According to documentation from ED visit, the paramedics documented that the detentionhomemaker companion stated that they found him slumped over the bed. They reported that he had decreased mental status. They also reported a fever of 103. When paramedics arrived, they found him to be with normal temperature. He did appear altered and somewhat aggressive. There is no other further history elicited. Patient had a white blood cell count of 18,000. Potassium 2.5. Elevated troponin 0 0.24. EKG currently pending. CT brain revealed subtle increased right frontal parietal temporal changes with ex vacuo dilatation of the ventricles. Right maxillary sinusitis. Patient had a witnessed seizure in the ED was given 1 g of fosphenytoin and 2 mg of midazolam. He is also received 1.5 L normal saline and is placed on potassium protocol for potassium 2.5. Magnesium is currently pending. CBC/BMP: 05/25/17 0334 05/26/17 0027 Significant Findings Laboratory Tests Test 05/26/17 00:27 Imaging Last Impressions Chest X-Ray 05/24/17 0600 Signed Impressions: Service Date/Time: May 04:36 - CONCLUSION: Interim extubation and nasogastric tube removal. Mild consolidation and small effusions at both bases superimposed on emphysema. Lacho Shi MD CT Angiography 05/23/17 0000 Signed Impressions: Service Date/Time: Tuesday, May 23, 2017 22:37 - CONCLUSION: 1. No pulmonary embolus. 2. Emphysema with suspected cor pulmonale. 3. Moderate pleural effusions and compressive/dependent atelectasis of both bases. 4. Patchy infiltrate in the mid and upper lungs, mostly on the right. 5. Left ventricular hypertrophy and coronary artery calcification. Lacho Shi MD Renal Ultrasound 05/19/17 0000 Signed Impressions: Service Date/Time: Friday, May 19, 2017 14:07 - CONCLUSION: Atrophic right kidney. Left kidney is unremarkable. Millard catheter in place. Lacho Morel MD Brain MRI 05/19/17 0000 Signed Impressions: Service Date/Time: Friday, May 19, 2017 08:27 - CONCLUSION: Old infarcts and extensive white matter disease. Marked atrophy without mass effect. Negative for acute ischemic event Galen Beal MD FACR Head CT 05/18/17 1218 Signed Impressions: Service Date/Time: Thursday, May 18, 2017 14:10 - CONCLUSION: 1. Although chronic appearing, there is interval worsening in the encephalomalacia changes in the right frontoparietal region as detailed above. Exvacuo dilatation of the adjacent ventricular system. 2. Nothing acute. 3. Severe chronic sinusitis the right maxillary antrum. Michael Cruz MD PE at Discharge GENERAL: No acute distress. CARDIOVASCULAR: Regular rate and rhythm. RESPIRATORY: no respiratory insufficiency at this time. MUSCULOSKELETAL: Extremities without clubbing, cyanosis, or edema. NEUROLOGICAL: Awake and alert. Hospital Course Hospital course: 57-year-old male. Date of admission 05/18/2017. 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 Today, he presents to [facility] ED from the detention with complaints of altered mental status and reported fever. According to documentation from ED visit, the paramedics documented that the detentionhomemaker companion stated that they found him slumped over the bed. They reported that he had decreased mental status. They also reported a fever of 103. When paramedics arrived, they found him to be with normal temperature. He did appear altered and somewhat aggressive. There is no other further history elicited. Patient had a white blood cell count of 18,000. Potassium 2.5. Elevated troponin 0 0.24. EKG currently pending. CT brain revealed subtle increased right frontal parietal temporal changes with ex vacuo dilatation of the ventricles. Right maxillary sinusitis. Patient had a witnessed seizure in the ED was given 1 g of fosphenytoin and 2 mg of midazolam. 05/25: Seen by ID specialist with Sepsis fever and leukocytosis, Encephalopathy, due to Pneumonia, status post Respiratory failure extubated, previous CVA with Left sided weakness, resolved leukocytosis, continue Azithromycin, Ceftin, doing well from ID standpoint. Discussed with nurse Luda Branch Controller working on discharge to SNF. Seen by wildland fire fighter specialist okay to discharge and follow as outpatient. 05/26: stable in his bedroom, discussed with nurse Jocelyn, Branch Controller working in his discharge will continue Ceftin as recommended by ID specialist and following, by wildland fire fighter specialist as outpatient 05/27: Patient seen in Intensive Care Unit, discussed with nurse Mr. Rodrigues the patient has uncontrolled blood pressure at this time found with 198/90 mm Hg. giving Clonidine 0.1 mg on two opportunities and following, also increased Amlodipine to 10 mg daily, he will need to get his blood pressure under control before discharge, held discharge until improved. 05/28: The discharge was held yesterday due to uncontrolled blood pressure, today stable discussed with nurse no new complaint okay to discharge to SNF later today.No nausea, vomit or diarrhea. Assessment and Plan Seizure History of right frontal parietal CVA with left-sided weakness History of right ICA occlusion Prior history of alcoholism Depression NOS Chronic opioid use CT brain revealed right frontoparietal temporal changes with ex vacuo dilatation. Right maxillary sinusitis MRI brain 05/19 revealed right MCA CVA with scattered white matter changes. No new infarct Received 1 g fosphenytoin in ED. 2 mg of lorazepam. Seizure precautions 05/20-EEG -moderate encephalopathy Phenytoin 100 mg IV every 8 hours. Transitioned to Oral Chronic systolic heart failure ejection fraction 35-40% Hypertensive Urgency. Hyperlipidemia Peripheral vascular occlusive disease Elevated troponin Echocardiogram 07/22 revealed EF 35-40%. LVH. Septal hypokinesis. Pulmonary arterial pressures 23 mmHg 05/19Repeat echocardiogram- EF 40-45%.Trace TR , PAP 39 Continue carvedilol 3.125 mg twice daily. Increased to 6.25 twice daily As needed labetalol/hydralazine/Nitropaste for hypertension Currently on atorvastatin 20 mg by mouth daily Coumadin aspirin 81 mg p.o. daily Currently not on diuretics Patient previously refused amputation to left lower extremity per Dr. Dasilva 02/22 Cycle troponin currently with downward trend Better blood pressure okay to discharge today to SNF scripts given and will follow PCP as outpatient. Acute respiratory insufficiency History of tobaccoism/COPD strep pneumonia/H Flu PNA s/p intubation and extubation Albuterol/ipratropium aerosols every 6 hours with albuterol aerosols every 2 hours as needed dyspnea Chest x-ray revealed emphysematous changes. No focal infiltrate CTA neg for PE. Consistent with severe emphysema and infiltrates. Abx per ID. as per ID specialist Okay to be discharge Home on Ceftin by mouth. as per wildland fire fighter specialist okay to discharge and follow as outpatient. History of esophagitis Gastroesophageal reflux disease Famotidine for GI prophylaxis Docusate sodium/senna 1 tablet twice daily for bowel regimen Speech to eval for regular diet. Chronic kidney disease stage III a 05/21 IV fluids discontinued Check urine electrolytes and eosinophils/renal ultrasound Monitor urine output Accurate I's and O's Monitor BMP Leukocytosis Thrombocytosis Currently on ferrous sulfate 325 mg p.o. twice daily Improved. Osteoporosis/osteoarthritis Left heel ulcer Will need to go to SNF, continue Ceftin as outpatient until 05/31/17 and follow wildland fire fighter specialist as outpatient. Discharge Today. Prophylaxis -GI -famotidine -DVT -SCD/heparin subcu Discharge Planning Discharge to SNF today. Pt Condition on Discharge: Good Discharge Disposition: Discharge to SNF Discharge Time: > 30 minutes Discharge Instructions DIET: Follow Instructions for: Heart Healthy Diet Activities you can perform: Regular-No Restrictions Austin Adhikari MD May 28, 2017 16:04
[2017-05-28] MEDS: cloNIDine HCL 0.1 MG TAB PO PRN (16:24)
[2017-05-28] MEDS ORDERED: CARVEDILOL 12.5 MG TAB PO SCH (21:00)
== END 2017-05-28 16:40 | DRG 871 ==
LOC: NEPC 12:01 → NEDA 16:00 → HIMN 17:35 → HIME 05-19 20:45
PROVIDERS: ADMIT Internal Medicine; ATTEND Internal Medicine
PROC: 5A1945Z Respiratory Ventilation, 24-96 Consecutive Hours (ICD-10-PCS; principal; 2017-05-18)
PROC: 0BH17EZ Insertion of Endotracheal Airway into Trachea, Via Natural or Artificial Opening (ICD-10-PCS; 2017-05-18)
PROC: 05HM33Z Insertion of Infusion Device into Right Internal Jugular Vein, Percutaneous Approach (ICD-10-PCS; 2017-05-18)
DX: A41.9 Sepsis, unspecified organism (principal); J15.4 Pneumonia due to other streptococci; J96.01 Acute respiratory failure with hypoxia; G93.40 Encephalopathy, unspecified; J14 Pneumonia due to Hemophilus influenzae; I13.0 Hypertensive heart and chronic kidney disease with heart failure and stage 1 through stage 4 chronic kidney disease, or unspecified chronic kidney disease; N17.9 Acute kidney failure, unspecified; R64 Cachexia; N18.3 Chronic kidney disease, stage 3 (moderate); I42.9 Cardiomyopathy, unspecified; I50.22 Chronic systolic (congestive) heart failure; J44.0 Chronic obstructive pulmonary disease with (acute) lower respiratory infection; J44.1 Chronic obstructive pulmonary disease with (acute) exacerbation; L97.429 Non-pressure chronic ulcer of left heel and midfoot with unspecified severity; L97.829 Non-pressure chronic ulcer of other part of left lower leg with unspecified severity; I69.354 Hemiplegia and hemiparesis following cerebral infarction affecting left non-dominant side; R56.9 Unspecified convulsions; I65.21 Occlusion and stenosis of right carotid artery; R74.8 Abnormal levels of other serum enzymes; I73.9 Peripheral vascular disease, unspecified; I25.2 Old myocardial infarction; F32.9 Major depressive disorder, single episode, unspecified; E78.5 Hyperlipidemia, unspecified; R79.89 Other specified abnormal findings of blood chemistry; M19.90 Unspecified osteoarthritis, unspecified site; M81.0 Age-related osteoporosis without current pathological fracture; G89.29 Other chronic pain; M54.5 Low back pain; J32.0 Chronic maxillary sinusitis; Z83.3 Family history of diabetes mellitus; Z82.49 Family history of ischemic heart disease and other diseases of the circulatory system; Z80.0 Family history of malignant neoplasm of digestive organs; Z87.891 Personal history of nicotine dependence; Z79.891 Long term (current) use of opiate analgesic; F10.21 Alcohol dependence, in remission; R06.89 Other abnormalities of breathing; E87.6 Hypokalemia; K21.9 Gastro-esophageal reflux disease without esophagitis; I16.0 Hypertensive urgency; D47.3 Essential (hemorrhagic) thrombocythemia
CPT/HCPCS: 31500; 36556; 36600; 70450; 70551; 71045; 71275; 76775; 76937; 80048; 80053; 80185; 81001; 82140; 82550; 82570; 82805; 82948; 83605; 83735; 84100; 84132; 84145; 84300; 84484; 85025; 85027; 85384; 85610; 85730; 87040; 87070; 87077; 87086; 87184; 87185; 87186; 87205; 87449; 87641; 87804; 93005; 93308; 94002; 94003; 94150; 94640; 94664; 95819; 96361; 96365; 96375; J0360; J0456; J0692; J0696; J1644; J2060; J2270; J3370; J3480; J7030; J7040; J7042; J7050; J7613; Q2009; Q9967

== ENCOUNTER 2017-09-01 23:52 | Inpatient (IN) ==
--- NOTE | 2017-09-02 00:35 | ED ---
HPI General Chief Complaint: Syncope Stated Complaint: medical Time Seen by Provider: 09/02/17 00:05 History of Present Illness HPI Narrative: 57-year-old male presents to the emergency department by EMS transport from the streets. Patient signed out against AMA from his residential rehab on Sunday and has been riding around in his wheelchair since that time. Patient is taken no medications since that time. Patient does not know if he was on a blood thinning agent. Patient had been a resident of the residential where he facility due to stroke affecting the left side of his body leaving him with lack of function of the left upper extremity and left lower extremity. Patient states that he was not getting adequate physical therapy so thought he would leave AGAINST MEDICAL ADVICE and his friends would set him up for physical therapy. Patient states that none of his friends were answered the phone so he finally came to the emergency department because of dizziness and generalized weakness. Patient denies fever chills nausea vomiting back pain chest pain shortness of breath abdominal pain flank pain diarrhea dysuria frequency urgency or recent injury. Patient does not report any sudden onset thunderclap or worst ever headache. Patient denies any new upper extremity lower extremity numbness tingling or weakness. Patient's had no chest pain. Patient has noted generalized weakness and dizziness. Paramedics identified patient to have an abnormal EKG patient insists that he does not have any chest pain. Patient is given no medications in route to the hospital. Related Data Home Medications Medication Instructions Recorded Confirmed Unable to Obtain Home Meds 09/02/17 09/02/17 Allergies Allergy/AdvReac Type Severity Reaction Status Date / Time No Known Allergies Allergy Unverified 09/02/17 01:08 Review of Systems Except as stated in HPI: all other systems reviewed are negative PMFSH History History Provided By: Medical Record Medical History Medical History Seizure (Acute) Stroke (Acute) Social History Social History Second Hand Smoke Exposure: Yes Smoking Status: Current every day smoker Tobacco Type: Cigarettes How Often Do You Have a Drink Containing Alcohol: Unable to Obtain Recent Out of Country Travel within the Last 8 Weeks: No Exam Narrative Exam Narrative: GENERAL: Well-developed thin disheveled male who has soiled clothing; GCS 15; hypertensive blood pressure SKIN: Focused skin assessment warm/dry. HEAD: Atraumatic. Normocephalic. EYES: Pupils equal and round. No scleral icterus. No injection or drainage. ENT: No nasal bleeding or discharge. Mucous membranes pink and moist. NECK: Trachea midline. No JVD. CARDIOVASCULAR: Regular rate and rhythm. No murmur appreciated. RESPIRATORY: No accessory muscle use. Clear to auscultation. Breath sounds equal bilaterally. GASTROINTESTINAL: Abdomen soft, non-tender, nondistended. Hepatic and splenic margins not palpable. MUSCULOSKELETAL: No obvious deformities. No clubbing. No cyanosis. No edema. NEUROLOGICAL: Awake and alert. No obvious cranial nerve deficits. Motor grossly within normal limits except for left upper extremity and left lower extremity; left upper extremity is in splint and left lower extremity has pressure ulcer boot in place.. Normal speech. PSYCHIATRIC: Appropriate mood and affect; insight and judgment normal. Course Initial Documented Vital Signs Temperature 98.8 F 09/01/17 23:53 Pulse Rate 103 H 09/01/17 23:53 Respiratory Rate 16 09/01/17 23:53 Blood Pressure 236/113 H 09/01/17 23:53 Pulse Oximetry 98 09/01/17 23:53 Last Documented Vital Signs Temperature 97.7 F 09/03/17 02:59 Pulse Rate 64 09/03/17 05:52 Respiratory Rate 16 09/03/17 02:59 Blood Pressure 152/67 H 09/03/17 02:59 Pulse Oximetry 98 09/03/17 02:59 Medical Decision Making [facility] Narrative Medical decision making narrative: 57-year-old male with known history of stroke seizure disorder an abnormal EKG presents to the emergency department with generalized weakness and dizziness after leaving his facility AGAINST MEDICAL ADVICE and has been off of any medications since Sunday. Patient placed on ehs teacher with continuous pulse oximetry IV access obtained specimens collected and sent for resulting EKG: Sinus rhythm and identifies marked ischemic changes no acute ST elevation; study similar to prior EKGs from last admission on comparison;Patient denies chest pain or shortness of breath complains of dizziness and generalized weakness persistently worsening over the past 3 days Troponin I elevated at 0.22 patient has already received aspirin in the emergency department and nitropaste continues to deny any chest pain shortness of breath sweats nausea vomiting referred neck jaw back shoulder arm pain CT brain noncontrast reveals evidence of prior remote right frontoparietal infarct no acute process CK is 286 not elevated however MB is elevated at 9.8 MB percent is 2.4% this is not elevated Patient's case discussed with medicine service for admission Differential Diagnosis Differential Diagnosis: Generalized weakness, CVA, arrhythmia, electrolyte disturbance, ACS, [place] Medical Records Medical records reviewed: Yes I reviewed the patient's medical records. Lab Data Result diagrams: 09/03/17 05:31 09/03/17 05:31 Lab Results 09/02/17 09/02/17 09/02/17 Range/Units 00:30 00:30 00:30 WBC 10.0 (4.0-11.0) th/mm3 RBC 4.32 L (4.50-5.90) mil/mm3 Hgb 13.9 (13.0-17.0) gm/dL Hct 39.5 (39.0-51.0) % MCV 91.4 (80.0-100.0) fL MCH 32.2 (27.0-34.0) pg MCHC 35.2 (32.0-36.0) % RDW 14.1 (11.6-17.2) % Plt Count 232 (150-450) th/mm3 MPV 8.1 (7.0-11.0) fL Neut % (Auto) 71.5 H (16.0-70.0) % Lymph % (Auto) 15.6 (9.0-44.0) % [place] % (Auto) 8.4 H (0.0-8.0) % Eos % (Auto) 3.6 (0.0-4.0) % Baso % (Auto) 0.9 (0.0-2.0) % Neut # (Auto) 7.2 (1.8-7.7) th/mm3 Lymph # (Auto) 1.6 (1.0-4.8) th/mm3 [place] # (Auto) 0.8 (0.0-0.9) th/mm3 Eos # (Auto) 0.4 (0.0-0.4) th/mm3 Baso # (Auto) 0.1 (0.0-0.2) th/mm3 WBC Differential . Differential Comment Auto diff final PT 11.0 (9.8-11.6) sec INR 1.1 Ratio APTT 29.0 (24.3-30.1) sec Sodium 138 (136-145) meq/L Potassium 3.8 (3.5-5.1) meq/L Chloride 103 (98-107) meq/L Carbon Dioxide 30.4 (21.0-32.0) meq/L Anion Gap 5 (5-15) meq/L BUN 24 H (7-18) mg/dL Creatinine 1.10 (0.60-1.30) mg/dL Estimated GFR 69 L (>89) mL/min Random Glucose 92 (74-106) mg/dL Calcium 8.7 (8.5-10.1) mg/dL Phosphorus (2.5-4.9) mg/dL Magnesium 2.2 (1.5-2.5) mg/dL Total Bilirubin (0.2-1.0) mg/dL AST (15-37) U/L ALT (12-78) U/L Alkaline Phosphatase (45-117) U/L Total Creatine Kinase 286 (39-308) U/L CK-MB (CK-2) 9.8 H (0.5-3.6) ng/mL Troponin I 0.22 H (0.02-0.05) ng/mL Total Protein (6.4-8.2) g/dL Albumin (3.4-5.0) g/dL Triglycerides (42-150) mg/dL Cholesterol (120-200) mg/dL LDL Cholesterol, Calc (0-99) mg/dL HDL Cholesterol (40.0-60.0) mg/dL Cholesterol/HDL Ratio Ratio TSH (0.358-3.740) uIU/mL Free T4 (0.76-1.46) ng/dL 09/02/17 09/02/17 09/02/17 Range/Units 03:50 03:50 08:02 WBC 9.5 (4.0-11.0) th/mm3 RBC 4.24 L (4.50-5.90) mil/mm3 Hgb 13.5 (13.0-17.0) gm/dL Hct 39.1 (39.0-51.0) % MCV 92.3 (80.0-100.0) fL MCH 31.8 (27.0-34.0) pg MCHC 34.5 (32.0-36.0) % RDW 14.1 (11.6-17.2) % Plt Count 231 (150-450) th/mm3 MPV 8.1 (7.0-11.0) fL Neut % (Auto) (16.0-70.0) % Lymph % (Auto) (9.0-44.0) % [place] % (Auto) (0.0-8.0) % Eos % (Auto) (0.0-4.0) % Baso % (Auto) (0.0-2.0) % Neut # (Auto) (1.8-7.7) th/mm3 Lymph # (Auto) (1.0-4.8) th/mm3 [place] # (Auto) (0.0-0.9) th/mm3 Eos # (Auto) (0.0-0.4) th/mm3 Baso # (Auto) (0.0-0.2) th/mm3 WBC Differential Differential Comment PT 12.3 H (9.8-11.6) sec INR 1.2 Ratio APTT 172.5 H* D 35.0 H D (24.3-30.1) sec Sodium (136-145) meq/L Potassium (3.5-5.1) meq/L Chloride (98-107) meq/L Carbon Dioxide (21.0-32.0) meq/L Anion Gap (5-15) meq/L BUN (7-18) mg/dL Creatinine (0.60-1.30) mg/dL Estimated GFR (>89) mL/min Random Glucose (74-106) mg/dL Calcium (8.5-10.1) mg/dL Phosphorus (2.5-4.9) mg/dL Magnesium (1.5-2.5) mg/dL Total Bilirubin (0.2-1.0) mg/dL AST (15-37) U/L ALT (12-78) U/L Alkaline Phosphatase (45-117) U/L Total Creatine Kinase (39-308) U/L CK-MB (CK-2) (0.5-3.6) ng/mL Troponin I (0.02-0.05) ng/mL Total Protein (6.4-8.2) g/dL Albumin (3.4-5.0) g/dL Triglycerides (42-150) mg/dL Cholesterol (120-200) mg/dL LDL Cholesterol, Calc (0-99) mg/dL HDL Cholesterol (40.0-60.0) mg/dL Cholesterol/HDL Ratio Ratio TSH (0.358-3.740) uIU/mL Free T4 (0.76-1.46) ng/dL 09/02/17 09/03/17 09/03/17 Range/Units 09:45 05:31 05:31 WBC 5.7 (4.0-11.0) th/mm3 RBC 3.79 L (4.50-5.90) mil/mm3 Hgb 12.2 L (13.0-17.0) gm/dL Hct 35.6 L (39.0-51.0) % MCV 93.8 (80.0-100.0) fL MCH 32.1 (27.0-34.0) pg MCHC 34.2 (32.0-36.0) % RDW 13.9 (11.6-17.2) % Plt Count 209 (150-450) th/mm3 MPV 8.0 (7.0-11.0) fL Neut % (Auto) 52.6 (16.0-70.0) % Lymph % (Auto) 30.6 (9.0-44.0) % [place] % (Auto) 8.7 H (0.0-8.0) % Eos % (Auto) 7.0 H (0.0-4.0) % Baso % (Auto) 1.1 (0.0-2.0) % Neut # (Auto) 3.0 (1.8-7.7) th/mm3 Lymph # (Auto) 1.7 (1.0-4.8) th/mm3 [place] # (Auto) 0.5 (0.0-0.9) th/mm3 Eos # (Auto) 0.4 (0.0-0.4) th/mm3 Baso # (Auto) 0.1 (0.0-0.2) th/mm3 WBC Differential . Differential Comment Auto diff final PT (9.8-11.6) sec INR Ratio APTT (24.3-30.1) sec Sodium 142 (136-145) meq/L Potassium 3.9 (3.5-5.1) meq/L Chloride 109 H (98-107) meq/L Carbon Dioxide 27.7 (21.0-32.0) meq/L Anion Gap 5 (5-15) meq/L BUN 24 H (7-18) mg/dL Creatinine 0.98 (0.60-1.30) mg/dL Estimated GFR 79 L (>89) mL/min Random Glucose 77 (74-106) mg/dL Calcium 8.0 L (8.5-10.1) mg/dL Phosphorus 2.5 (2.5-4.9) mg/dL Magnesium 2.2 (1.5-2.5) mg/dL Total Bilirubin 0.1 L (0.2-1.0) mg/dL AST 27 (15-37) U/L ALT 27 (12-78) U/L Alkaline Phosphatase 99 (45-117) U/L Total Creatine Kinase (39-308) U/L CK-MB (CK-2) (0.5-3.6) ng/mL Troponin I 0.25 H 0.17 H (0.02-0.05) ng/mL Total Protein 5.9 L (6.4-8.2) g/dL Albumin 2.6 L (3.4-5.0) g/dL Triglycerides 148 (42-150) mg/dL Cholesterol 170 (120-200) mg/dL LDL Cholesterol, Calc 107 H (0-99) mg/dL HDL Cholesterol 33.7 L (40.0-60.0) mg/dL Cholesterol/HDL Ratio 5.04 Ratio TSH 0.339 L (0.358-3.740) uIU/mL Free T4 1.08 (0.76-1.46) ng/dL Imaging Data Radiologist's impression: Head CT 09/02/17 00:05 CONCLUSION: 1. Remote right frontoparietal infarct. 2. Moderate cerebral atrophy out of proportion to age. 3. No acute intracranial abnormality. . ECG Data EKG Prior to Arrival: Yes Attestation: I personally reviewed and interpreted this ECG as follows: Prior ECG tracings: available for review Interpretation: EKG sinus rhythm rate 98 occasional PAC artifact is present ST T -wave changes concerning for inferior ischemia and age-indeterminate lateral TX Discharge Plan Discharge Disposition Patient Disposition: 30 Still Patient Discharge Condition Condition: Stable Discharge Details Diagnosis: NSTEMI (non-ST elevated myocardial infarction), H/O: CVA (cerebrovascular accident), Generalized weakness Physicians Team ED Provider: Emelia Mcdaniels Primary Care Provider: Moreno Clark Attending Provider: Galen Salas Other Providers: Gio Nuno Discharge Interventions Interventions: ED Discharge Assessment Last Done: 09/02/17 04:30 Vital Signs Last Done: 09/02/17 01:38 Status ED Status: Left Department Discharge Information Discharge Date/Time: 09/02/17 04:30
[2017-09-02 00:58] LABS: Baso # (Auto) 0.1 th/mm3 (0.0-0.2); Baso % (Auto) 0.9 % (0.0-2.0); Eos # (Auto) 0.4 th/mm3 (0.0-0.4); Eos % (Auto) 3.6 % (0.0-4.0); Hematocrit 39.5 % (39.0-51.0); Hemoglobin 13.9 gm/dL (13.0-17.0); Lymph # (Auto) 1.6 th/mm3 (1.0-4.8); Lymph % (Auto) 15.6 % (9.0-44.0); Mean Corpuscular HGB Conc 35.2 % (32.0-36.0); Mean Corpuscular Hemoglobin 32.2 pg (27.0-34.0); Mean Corpuscular Volume 91.4 fL (80.0-100.0); Mean Platelet Volume 8.1 fL (7.0-11.0); Mono # (Auto) 0.8 th/mm3 (0.0-0.9); Mono % (Auto) 8.4 % (0.0-8.0); Neut # (Auto) 7.2 th/mm3 (1.8-7.7); Neut % (Auto) 71.5 % (16.0-70.0); Platelet Count 232 th/mm3 (150-450); Red Blood Count 4.32 mil/mm3 (4.50-5.90); Red Cell Distribution Width 14.1 % (11.6-17.2)
[2017-09-02 01:07] LABS: INR 1.1 Ratio
[2017-09-02 01:11] LABS: Anion Gap 5 meq/L (5-15); Blood Urea Nitrogen 24 mg/dL (7-18); Calcium 8.7 mg/dL (8.5-10.1); Carbon Dioxide 30.4 meq/L (21.0-32.0); Chloride 103 meq/L (98-107); Glomerular Filtration Rate 69 mL/min (>89); Glucose,Random 92 mg/dL (74-106); Magnesium 2.2 mg/dL (1.5-2.5); Potassium 3.8 meq/L (3.5-5.1); Sodium 138 meq/L (136-145)
[2017-09-02 01:15] LABS: Creatine Kinase 286 U/L (39-308); Troponin I 0.22 ng/mL (0.02-0.05)
[2017-09-02 01:28] LABS: Creatine Kinase MB 9.8 ng/mL (0.5-3.6)
--- NOTE | 2017-09-02 01:38 | CT ---
EXAM DATE: 09/02/2017 1:25 AM EDT AGE/SEX: 57 years / Male INDICATIONS: Dizziness. CLINICAL DATA: This is the patient's initial encounter. Patient reports that signs and symptoms have been present for 1 day and indicates a pain score of 0/10. MEDICAL/SURGICAL HISTORY: Seizures. Stroke. None. RADIATION DOSE: 34.55 CTDI (mGy) COMPARISON: [facility] [place], MRI BRAIN W/O CONTRAST, 05/19/2017. . TECHNIQUE: CT of the head without contrast. Using automated exposure control and adjustment of the mA and/or kV according to patient size, radiation dose was kept as low as reasonably achievable to ob tain optimal diagnostic quality images. DICOM format image data is available electronically for revi ew and comparison. FINDINGS: Cerebrum: Large right frontoparietal encephalomalacia. Moderate diffuse cerebral atrophy. The ventri cles are normal for degree of atrophy. No evidence of midline shift, mass lesion, hemorrhage or acute infarction. No extraaxial fluid collections are seen. Posterior Fossa: The cerebellum and brainstem are intact. The 4th ventricle is midline. The cerebe llopontine angle is unremarkable. Extracranial: The visualized portion of the orbits is intact. Skull: The calvaria is intact. No evidence of skull fracture. CONCLUSION: 1. Remote right frontoparietal infarct. 2. Moderate cerebral atrophy out of proportion to age. 3. No acute intracranial abnormality. . Electronically signed by: Doug Valencia MD 09/02/2017 1:37 AM EDT
[2017-09-02] MEDS ORDERED: Heparin 10,000 UNITS/10 ML Vial (for IV use) IV.PUSH STA (02:44)
[2017-09-02] MEDS ORDERED: Heparin Drip 25,000 UNIT/250 ML BAG IV.CONT PRN (02:44)
[2017-09-02] MEDS ORDERED: Acetaminophen 325 MG Tablet PO PRN (03:17)
[2017-09-02] MEDS ORDERED: Bisacodyl 10 MG Supp RECTAL PRN (03:17)
[2017-09-02] MEDS: Sod Chloride 0.9% Inj 1,000 ML IV.CONT SCH ×2 (04:05→23:16)
--- NOTE | 2017-09-02 04:26 | P.HPIM ---
History of Present Illness Primary Care Physician: Moreno Clark MD History of Present Illness: This is a 57-year-old male with PMH of HTN, Hyperlipidemia, H/o CVA w/ Left- Sided Hemiparesis, COPD, CHF (Echo 05/23 w/ EF 40-45%), PVD and Chronic LE Ulcer who was brought to the ER by EMS for c/o dizziness and generalized weakness. Per report, pt had been sent to SNF following CVA for Rehab, pt apparently wasn' t happy with the Rehab and LEFT AMA, however has been living on the streets since he had nowhere to go. Denies fever, chills, nausea, vomiting or diarrhea. Per EMS, pt noted to have abnormal EKG, however pt w/ no complaints of chest pain. On arrival, BP 236/113, HR 103, O2 sat 98% on RA, Afebrile. CBC unremarkable. INR 1.1. Troponin 0.22, EKG w/ ST-T wave changes. S/p Morphine/NTG in ER and currently on Heparin gtt - Diagnosis (1) NSTEMI (non-ST elevated myocardial infarction) (2) H/O: CVA (cerebrovascular accident) (3) HTN (hypertension) (4) CHF (congestive heart failure) Inpatient Certification: I certify that the inpatient services were ordered in accordance with Medicare regulations governing the order. This includes certification that hospital inpatient services are reasonable and necessary and in the case of services not specified as inpatient-only under 42 CFR 419.22(n), that they are appropriately provided as inpatient services in accordance to with the 2-midnight benchmark under 43 CFR 412.3(e) Estimated Total Length of Stay (Days): 2 Plans for Post Hospital Care: Not yet determined Review of Systems All other systems reviewed negative except as stated in HPI PMFSH - History History Provided By: Patient - Medical History Medical History: Medical History (Last Reviewed 09/02/17 @ 00:32 by Emelia Mcdaniels MD) Seizure Stroke - Tobacco History Tobacco Use In Past 30 Days: Yes Smoking Status: Current every day smoker Tobacco Type: Cigarettes - Alcohol History How Often Do You Have a Drink Containing Alcohol: Monthly or less - Travel History Recent Travel Out of the Country Within the Last 8 Weeks: No - Immunization History Tetanus Immunization: Unsure Medications and Allergies Active Medications: Active Medications Acetaminophen (Tylenol) 650 mg PO Q4H PRN PRN Reason: Temp > 100.4 Al Hydroxide/Mg Hydroxide (Milk Of Magnesia Liq) 30 ml PO Q12H PRN PRN Reason: Mild Constipation Aspirin (Ecotrin) 81 mg PO DAILY KALEB Bisacodyl (Dulcolax Supp) 10 mg RECTAL DAILY PRN PRN Reason: SEVERE CONSITIPATION Heparin Sodium/Dextrose (Heparin/D5w 25,000 U/250 Ml) 25,000 unit in 250 mls @ 0 mls/hr IV.CONT TITRATE PRN; Protocol PRN Reason: Per Protocol Last Admin: 09/02/17 03:21 Dose: 800 units/hr, 8 mls/hr Sodium Chloride (Ns Inj) 1,000 mls @ 100 mls/hr IV.CONT .Q10H [facility] Last Admin: 09/02/17 04:05 Dose: 100 mls/hr Lactulose (Lactulose Liq) 30 ml PO DAILY PRN PRN Reason: SEVERE CONSITIPATION Metoprolol Tartrate (Lopressor) 50 mg PO BID [facility] Morphine Sulfate (Morphine Inj) 2 mg IV.PUSH Q4H PRN PRN Reason: PAIN 6-10 Nitroglycerin (Nitro-Bid 2% Oint) 0.5 inch TOPICAL Q6HR PRN PRN Reason: CHEST PAIN Ondansetron HCl (Zofran Odt) 4 mg PO Q6H PRN PRN Reason: NAUSEA OR VOMITING Pravastatin Sodium (Pravachol) 40 mg PO DAILY [facility] Senna/Docusate Sodium (Kajal-Colace) 1 tab PO BID [facility] Sennosides (Senokot) 17.2 mg PO Q12H PRN PRN Reason: Moderate Constipation Temazepam (Restoril) 15 mg PO HS PRN PRN Reason: INSOMNIA Allergies Allergy/AdvReac Type Severity Reaction Status Date / Time No Known Allergies Allergy Unverified 09/02/17 01:08 Home Medications Medication Instructions Recorded Confirmed Type Unable to Obtain Home Meds 09/02/17 09/02/17 History Exam Vital signs: Vital Signs 09/01/17 23:53 09/02/17 01:38 09/02/17 01:45 Temperature 98.8 F Pulse Rate 103 H 100 H Respiratory Rate 16 16 Blood Pressure 236/113 H 209/109 H Pulse Oximetry 98 98 98 09/02/17 03:40 Temperature Pulse Rate 89 Respiratory Rate 16 Blood Pressure 151/87 H Pulse Oximetry Intake & Output 09/01/17 09/01/17 09/02/17 06:59 18:59 06:59 Weight 70.307 kg Narrative: PE: GENERAL: Middle-aged white male in no acute distress, disheveled, unkept. Wheelchair at bedside. HEENT: PERRLA, EOMI. No scleral icterus or conjunctival pallor. No lid lag or facial droop. CARDIOVASCULAR: Regular rate and rhythm. No obvious murmurs to auscultation. No chest tenderness to palpation. RESPIRATORY: No obvious rhonchi or wheezing. Clear to auscultation. Breath sounds equal bilaterally. GASTROINTESTINAL: Abdomen soft, non-tender, nondistended. BS normal. MUSCULOSKELETAL: Extremities without clubbing, cyanosis, or edema. No obvious deformities. LLE w/ pressure ulcer boot NEUROLOGICAL: Awake, alert and oriented x4. No focal neurologic deficits. Moving both upper and lower extremities spontaneously. Results - Labs CBC & Chem 7: 09/02/17 00:30 09/02/17 00:30 Labs: Short CBC 09/02/17 Range/Units 00:30 WBC 10.0 (4.0-11.0) th/mm3 Hgb 13.9 (13.0-17.0) gm/dL Hct 39.5 (39.0-51.0) % Plt Count 232 (150-450) th/mm3 BMP 09/02/17 00:30 Sodium 138 Potassium 3.8 Chloride 103 Carbon Dioxide 30.4 BUN 24 H Creatinine 1.10 Calcium 8.7 Cardiac Enzymes 09/02/17 Range/Units 00:30 Total Creatine Kinase 286 (39-308) U/L CK-MB (CK-2) 9.8 H (0.5-3.6) ng/mL Troponin I 0.22 H (0.02-0.05) ng/mL - Imaging Impressions Head CT 09/02/17 00:05 CONCLUSION: 1. Remote right frontoparietal infarct. 2. Moderate cerebral atrophy out of proportion to age. 3. No acute intracranial abnormality. . Caprini VTE Risk Assessment Caprini VTE Risk Assessment: Moderate/High Risk (score >= 2) Caprini Risk Assessment Model: Point Value = 1 Point Value = 2 Point Value = 3 Point Value = 5 Age 41-60 Minor surgery BMI > 25 kg/m2 Swollen legs Varicose veins or History of unexplained or recurrent spontaneous Oral contraceptives or hormone replacement Sepsis (< 1 month) Serious lung disease, including pneumonia (< 1 month) Abnormal pulmonary function Acute myocardial infarction Congestive heart failure (< 1 month) History of inflammatory bowel disease Medical patient at bed rest Age 61-74 Arthroscopic surgery Major open surgery (> 45 min) Laparoscopic surgery (> 45 min) Malignancy Confined to bed (> 72 hours) Immobilizing plaster cast Central venous access Age >= 75 History of VTE Family history of VTE Factor V Leiden Prothrombin [id number] Lupus anticoagulant Anticardiolipin antibodies Elevated serum homocysteine Heparin-induced thrombocytopenia Other congenital or acquired thrombophilia Stroke (< 1 month) Elective arthroplasty Hip, pelvis, or leg fracture Acute spinal cord injury (< 1 month) Prophylaxis Regimen: Total Risk Factor Score Risk Level Prophylaxis Regimen 0-1 Low Early ambulation 2 Moderate Order ONE of the following: *Sequential Compression Device (SCD) *Heparin 5000 units SQ BID 3-4 Higher Order ONE of the following medications: *Heparin 5000 units SQ TID *Enoxaparin/Lovenox 40 mg SQ daily (WT < 150 kg, CrCl > 30 mL/min) *Enoxaparin/Lovenox 30 mg SQ daily (WT < 150 kg, CrCl > 10-29 mL/min) *Enoxaparin/Lovenox 30 mg SQ BID (WT < 150 kg, CrCl > 30 mL/min) AND/OR *Sequential Compression Device (SCD) 5 or more Highest Order ONE of the following medications: *Heparin 5000 units SQ TID (Preferred with Epidurals) *Enoxaparin/Lovenox 40 mg SQ daily (WT < 150 kg, CrCl > 30 mL/min) *Enoxaparin/Lovenox 30 mg SQ daily (WT < 150 kg, CrCl > 10-29 mL/min) *Enoxaparin/Lovenox 30 mg SQ BID (WT < 150 kg, CrCl > 30 mL/min) AND *Sequential Compression Device (SCD) Assessment and Plan - Assessment (1) NSTEMI (non-ST elevated myocardial infarction) Code(s): I21.4 - Non-ST elevation (NSTEMI) myocardial infarction Status: Acute (2) H/O: CVA (cerebrovascular accident) Code(s): Z86.73 - Personal history of transient ischemic attack (TIA), and cerebral infarction without residual deficits Status: Acute (3) HTN (hypertension) Code(s): I10 - Essential (primary) hypertension Status: Acute (4) CHF (congestive heart failure) Code(s): I50.9 - Heart failure, unspecified Status: Acute - Plan A/P: 1. NSTEMI: Trop 0.22, abnormal EKG, pt w/ no complaints of chest pain. On Heparin gtt, will continue. Start ASA, Statin, B-[place]. Check serial cardiac enzymes for trend. Consult Cardiology for further evaluation/ intervention. 2. HTN: Uncontrolled. BP 230's systolic on arrival, BP currently 151/87, monitor closely, antihypertensives as needed for BP >180 3. CVA: h/o CVA w/ residual left-sided weakness, recently at SNF for Rehab, however apparently LEFT AMA and has been living on the streets. PT for eval/ tx. Case Management for placement. 4. CHF: Chronic. Systolic. Echo 05/23 w/ EF 40-45%, no evidence of fluid overload at this time, monitor I/O. 5. DVT Prophylaxis: Heparin gtt 6. Social work for d/c planning as needed 7. Case discussed w/ ER physician at length, labs/records/imaging reviewed by me.
[2017-09-02 04:57] LABS: Hematocrit 39.1 % (39.0-51.0); Hemoglobin 13.5 gm/dL (13.0-17.0); Mean Corpuscular HGB Conc 34.5 % (32.0-36.0); Mean Corpuscular Hemoglobin 31.8 pg (27.0-34.0); Mean Corpuscular Volume 92.3 fL (80.0-100.0); Mean Platelet Volume 8.1 fL (7.0-11.0); Platelet Count 231 th/mm3 (150-450); Red Blood Count 4.24 mil/mm3 (4.50-5.90); Red Cell Distribution Width 14.1 % (11.6-17.2); White Blood Count 9.5 th/mm3 (4.0-11.0)
[2017-09-02 06:13] LABS: INR 1.2 Ratio; Prothrombin Time 12.3 sec (9.8-11.6)
[2017-09-02 06:16] LABS: Activated Partial Thrombo Time 172.5 sec (24.3-30.1)
[2017-09-02] MEDS ORDERED: Metoprolol Tartrate 50 MG Tablet PO SCH (09:00)
[2017-09-02] MEDS: Senna/Docusate Sodium 8.6/50 MG Tablet PO SCH ×2 (09:11→20:45)
--- NOTE | 2017-09-02 12:20 | MB ---
cc: Gio Nuno MD DATE: 09/02/2017 REASON FOR CONSULTATION: Abnormal troponin level. HISTORY OF PRESENT ILLNESS: The patient is a 57-year-old white male with a history of multiple medical problems including hypertension, cardiomyopathy, which is probably nonischemic in origin, carotid disease, COPD, CVA, medical noncompliance, peripheral vascular disease, who was brought in due to lightheadedness and generalized weakness. The patient states he has been eating very little recently. Yesterday, he may have had near syncope for a few minutes, but denies ever losing consciousness completely. Reportedly, the patient signed out against medical advice from his residential rehabilitation center last Sunday. Troponin levels were checked here in the hospital and found to be abnormal. He denies any recent chest pain, shortness of breath, palpitations, pedal edema, paroxysmal nocturnal dyspnea, orthopnea, fevers. PAST MEDICAL HISTORY: 1. Hypertension. 2. Hyperlipidemia. 3. Nondilated probably nonischemic cardiomyopathy with ejection fraction of 35-40% by echo 08/01/2016, improving to 40-45% by echo 05/19/2017. 4. Prior history of alcoholism. 5. Chronic obstructive pulmonary disease. 6. Carotid disease with MRA 07/2016 showing totally occluded right internal carotid artery, 50% stenosis of the left internal carotid artery. Also of note, on that CT angiogram, he was found to have high grade proximal left subclavian disease. 7. Right frontoparietal CVA 07/2016. 8. Esophagitis demonstrated by upper endoscopy 01/12/2017. 9. Chronic renal insufficiency. 10. Chronic multifactorial anemia, probably from anemia of chronic disease, as well as anemia of renal insufficiency. 11. Peripheral vascular disease. The patient has a chronic left foot ulcer and had been recommended left [id number] amputation earlier this year, which he declined. 12. Medical noncompliance. CURRENT CARDIAC MEDICATIONS: 1. Ecotrin 81 mg p.o. daily. 2. Heparin drip. 3. Metoprolol tartrate 50 mg p.o. b.i.d. 4. Nitro paste half inch every 6 hours. 5. Pravastatin 40 mg p.o. daily. ALLERGIES: NO KNOWN DRUG ALLERGIES. FAMILY HISTORY: There is no significant family history of early myocardial infarction. SOCIAL HISTORY: The patient smokes about a pack of cigarettes per day. He denies alcohol abuse. REVIEW OF SYSTEMS: As in the history of present illness, otherwise negative or noncontributory. He also denies headache, abdominal pain, melena, dyspepsia, bright red blood per rectum, wheezing. PHYSICAL EXAMINATION: VITAL SIGNS: Blood pressure 184/98 with a pulse of 74, and respirations 18. GENERAL: He is a well-developed, emaciated, white male in no acute distress. NECK: Jugular venous pressure is normal. Carotid pulses are 2+ bilaterally and without bruits. CHEST: Reveals diminished breath sounds diffusely. There are no definite rales. CARDIAC: He has a regular rhythm and rate with a grade 2/6 systolic ejection murmur heard at the right upper sternal border. The S2 heart sound is mild to moderately diminished. No gallop is audible. ABDOMEN: He has a soft, nontender abdomen. Bowel sounds are present. There is no definite hepatosplenomegaly. EXTREMITIES: Reveals no pretibial edema. LABORATORY DATA: EKG shows sinus tachycardia, inferior and lateral ST and T-wave abnormality, consider ischemia, no significant change compared to EKGs 06/16/2016 and 05/18/2017. Includes normal CBC. Potassium 3.8, BUN 24, creatinine 1.0. Troponin 0.25, CK 286, CK-MB 9.8. IMPRESSION: Minimally elevated troponin level in this 57-year-old white male with a history of multiple medical problems including probably nonischemic cardiomyopathy with ejection fraction of 40-45% by echo 05/19/2017, history of COPD, carotid disease, peripheral vascular disease, CVA, chronic anemia. Overall, I doubt the slight elevation in troponin is due to acute coronary syndrome. CK-MB percentage is less than 5%. He has had no chest pain symptoms. His EKG does indeed have ischemic inferior and lateral ST and T-wave changes, although unchanged compared to EKGs 05/18/2017 and 06/16/2016. Review of his troponin levels in the past show basically no change with troponin levels of 0.59 on 05/18/2017 and 0.50 on 02/13/2017. The patient basically is also a very poor candidate for invasive cardiac evaluation with his medical noncompliance, poor functional status, general severe debilitation. RECOMMENDATIONS: 1. Medical therapy; optimize beta terry and TAE inhibitor dosing. 2. Continue daily aspirin. 3. The heparin drip and nitroglycerin paste can be stopped. 4. We will followup as needed. Gio Nuno MD GHFrancheska/TL , 11:42 AM , 11:53 AM SARA
[2017-09-02] MEDS: Lisinopril 20 MG Tablet PO SCH (13:11)
--- NOTE | 2017-09-02 13:15 | P.PNIM ---
Subjective Interval history: This is a 57-year-old male with PMH of HTN, Hyperlipidemia, H/o CVA w/ Left- Sided Hemiparesis, COPD, CHF (Echo 05/23 w/ EF 40-45%), PVD and Chronic LE Ulcer who was brought to the ER by EMS for c/o dizziness and generalized weakness. Per report, pt had been sent to SNF following CVA for Rehab, pt apparently wasn' t happy with the Rehab and LEFT AMA, however has been living on the streets since he had nowhere to go. Denies fever, chills, nausea, vomiting or diarrhea. Per EMS, pt noted to have abnormal EKG, however pt w/ no complaints of chest pain. On arrival, BP 236/113, HR 103, O2 sat 98% on RA, Afebrile. CBC unremarkable. INR 1.1. Troponin 0.22, EKG w/ ST-T wave changes. S/p Morphine/NTG in ER and currently on Heparin gtt 09-02 MEDICAL MANAGEMENT PER CARDIOLOGY ADJUST MEDICATIONS NOT A GOOD CANDIDATE FOR INTERVENTIONS DUE TO POOR COMPLIANCE DW RN AND PT AND CM Physical Exam Vital signs: Vital Signs 09/01/17 23:53 09/02/17 01:38 09/02/17 01:45 Temperature 98.8 F Pulse Rate 103 H 100 H Respiratory Rate 16 16 Blood Pressure 236/113 H 209/109 H Pulse Oximetry 98 98 98 09/02/17 03:40 09/02/17 05:00 09/02/17 05:18 Temperature 97.5 F L Pulse Rate 89 85 90 Respiratory Rate 16 18 Blood Pressure 151/87 H 191/96 H Pulse Oximetry 96 09/02/17 06:00 09/02/17 07:00 09/02/17 07:42 Temperature 98.9 F Pulse Rate 90 87 95 H Respiratory Rate 18 Blood Pressure 184/98 H Pulse Oximetry 98 09/02/17 08:00 09/02/17 09:00 09/02/17 10:00 Temperature Pulse Rate 90 94 H 74 Respiratory Rate Blood Pressure Pulse Oximetry 09/02/17 11:00 09/02/17 12:00 Temperature 98.1 F Pulse Rate 64 67 Respiratory Rate 18 Blood Pressure 171/84 H Pulse Oximetry 97 Intake & Output 09/01/17 09/02/17 09/02/17 18:59 06:59 18:59 Intake Total 0 / 0 Balance 0 / 0 Weight 70.3 kg Intake: Oral 0 / 0 Other: # Urine Diapers 1 Date of Last Bowel Movement 09/01/17 Narrative: GENERAL: Middle-aged white male in no acute distress, disheveled, unkept. Wheelchair at bedside. LEFT SIDE IS FLACCID HEENT: PERRLA, EOMI. No scleral icterus or conjunctival pallor. No lid lag or facial droop. EOMI PERRLA TONGUE MIDLINE CARDIOVASCULAR: Regular rate and rhythm. No obvious murmurs to auscultation. No chest tenderness to palpation. S1, S2 NO S3 OR S4 RESPIRATORY: No obvious rhonchi or wheezing. Clear to auscultation. Breath sounds equal bilaterally. GASTROINTESTINAL: Abdomen soft, non-tender, nondistended. BS normal. MUSCULOSKELETAL: Extremities without clubbing, cyanosis, or edema. No obvious deformities. LLE w/ pressure ulcer boot LEFT SIDE IS FLACCID - CAN MOVE RIGHT SIDE NEUROLOGICAL: Awake, alert and oriented x4. No focal neurologic deficits. Moving RIGHT upper and lower extremities spontaneously--LEFT UE AND LE ARE FLACCID. Insight and judgment is limited mood and behavior somewhat Results - Labs CBC & Chem 7: 09/02/17 03:50 09/02/17 00:30 Laboratory Results - last 24 hr 09/02/17 09/02/17 09/02/17 00:30 00:30 00:30 WBC 10.0 RBC 4.32 L Hgb 13.9 Hct 39.5 MCV 91.4 MCH 32.2 MCHC 35.2 RDW 14.1 Plt Count 232 MPV 8.1 Neut % (Auto) 71.5 H Lymph % (Auto) 15.6 [place] % (Auto) 8.4 H Eos % (Auto) 3.6 Baso % (Auto) 0.9 Neut # (Auto) 7.2 Lymph # (Auto) 1.6 [place] # (Auto) 0.8 Eos # (Auto) 0.4 Baso # (Auto) 0.1 WBC Differential . Differential Comment Auto diff final PT 11.0 INR 1.1 APTT 29.0 Sodium 138 Potassium 3.8 Chloride 103 Carbon Dioxide 30.4 Anion Gap 5 BUN 24 H Creatinine 1.10 Estimated GFR 69 L Random Glucose 92 Calcium 8.7 Magnesium 2.2 Total Creatine Kinase 286 CK-MB (CK-2) 9.8 H Troponin I 0.22 H 09/02/17 09/02/17 09/02/17 03:50 03:50 08:02 WBC 9.5 RBC 4.24 L Hgb 13.5 Hct 39.1 MCV 92.3 MCH 31.8 MCHC 34.5 RDW 14.1 Plt Count 231 MPV 8.1 Neut % (Auto) Lymph % (Auto) [place] % (Auto) Eos % (Auto) Baso % (Auto) Neut # (Auto) Lymph # (Auto) [place] # (Auto) Eos # (Auto) Baso # (Auto) WBC Differential Differential Comment PT 12.3 H INR 1.2 APTT 172.5 H* D 35.0 H D Sodium Potassium Chloride Carbon Dioxide Anion Gap BUN Creatinine Estimated GFR Random Glucose Calcium Magnesium Total Creatine Kinase CK-MB (CK-2) Troponin I 09/02/17 09:45 WBC RBC Hgb Hct MCV MCH MCHC RDW Plt Count MPV Neut % (Auto) Lymph % (Auto) [place] % (Auto) Eos % (Auto) Baso % (Auto) Neut # (Auto) Lymph # (Auto) [place] # (Auto) Eos # (Auto) Baso # (Auto) WBC Differential Differential Comment PT INR APTT Sodium Potassium Chloride Carbon Dioxide Anion Gap BUN Creatinine Estimated GFR Random Glucose Calcium Magnesium Total Creatine Kinase CK-MB (CK-2) Troponin I 0.25 H - Imaging Impressions Head CT 09/02/17 00:05 CONCLUSION: 1. Remote right frontoparietal infarct. 2. Moderate cerebral atrophy out of proportion to age. 3. No acute intracranial abnormality. . - Procedures NONE Assessment and Plan - Assessment (1) NSTEMI (non-ST elevated myocardial infarction) Code(s): I21.4 - Non-ST elevation (NSTEMI) myocardial infarction Status: Acute (2) H/O: CVA (cerebrovascular accident) Code(s): Z86.73 - Personal history of transient ischemic attack (TIA), and cerebral infarction without residual deficits Status: Acute (3) HTN (hypertension) Code(s): I10 - Essential (primary) hypertension Status: Acute (4) CHF (congestive heart failure) Code(s): I50.9 - Heart failure, unspecified Status: Acute - Plan 1. NSTEMI: Trop 0.22, abnormal EKG, pt w/ no complaints of chest pain. On Heparin gtt, will continue. Start ASA, Statin, B-[place]. Check serial cardiac enzymes for trend. Consult Cardiology for further evaluation/ intervention.- STOP HEPARIN DRIP-MEDICAL MANAGEMENT PER CARDIOLOGY 2. HTN: Uncontrolled. BP 230's systolic on arrival, BP currently 151/87, monitor closely, antihypertensives as needed for BP >180--MEDS ADJUSTED 3. CVA: h/o CVA w/ residual left-sided weakness, recently at SNF for Rehab, however apparently LEFT AMA and has been living on the streets. PT for eval/ tx. Case Management for placement. 4. CHF: Chronic. Systolic. Echo 05/23 w/ EF 40-45%, no evidence of fluid overload at this time, monitor I/O. 5. DVT Prophylaxis: Heparin gtt 6. Social work for d/c planning as needed MALIGNANT MEDICAL NONCOMPLIANCE PATIENT LEFT AMA FROM SNF- NOW HOMELESS ON THE STREETS Code Status: FULL CODE Discussed Condition With: RN AND PT AND CARDIO AND CASE MANAGEMENT Discharge Planning: PENDING IMPROVEMENT
[2017-09-02] MEDS: Morphine Inj 4 MG/ML Vial IV.PUSH PRN (20:44)
[2017-09-02] MEDS: Metoprolol Tartrate 100 MG Tablet PO SCH (20:45)
[2017-09-03] MEDS: Sod Chloride 0.9% Inj 1,000 ML IV.CONT SCH ×4 (05:02→21:11)
[2017-09-03 06:44] LABS: Baso # (Auto) 0.1 th/mm3 (0.0-0.2); Baso % (Auto) 1.1 % (0.0-2.0); Eos # (Auto) 0.4 th/mm3 (0.0-0.4); Hematocrit 35.6 % (39.0-51.0); Hemoglobin 12.2 gm/dL (13.0-17.0); Lymph # (Auto) 1.7 th/mm3 (1.0-4.8); Lymph % (Auto) 30.6 % (9.0-44.0); Mean Corpuscular HGB Conc 34.2 % (32.0-36.0); Mean Corpuscular Hemoglobin 32.1 pg (27.0-34.0); Mean Corpuscular Volume 93.8 fL (80.0-100.0); Mono # (Auto) 0.5 th/mm3 (0.0-0.9); Mono % (Auto) 8.7 % (0.0-8.0); Neut % (Auto) 52.6 % (16.0-70.0); Platelet Count 209 th/mm3 (150-450); Red Blood Count 3.79 mil/mm3 (4.50-5.90); Red Cell Distribution Width 13.9 % (11.6-17.2); White Blood Count 5.7 th/mm3 (4.0-11.0)
[2017-09-03 07:01] LABS: Albumin 2.6 g/dL (3.4-5.0); Anion Gap 5 meq/L (5-15); Blood Urea Nitrogen 24 mg/dL (7-18); Carbon Dioxide 27.7 meq/L (21.0-32.0); Chloride 109 meq/L (98-107); Glomerular Filtration Rate 79 mL/min (>89); Glucose,Random 77 mg/dL (74-106); Magnesium 2.2 mg/dL (1.5-2.5); Potassium 3.9 meq/L (3.5-5.1); Sodium 142 meq/L (136-145)
[2017-09-03 07:03] LABS: Aspartate Aminotransferase 27 U/L (15-37); Cholesterol 170 mg/dL (120-200); Triglycerides 148 mg/dL (42-150)
[2017-09-03 07:12] LABS: Alanine Aminotransferase 27 U/L (12-78); Alkaline Phosphatase 99 U/L (45-117); Chol/HDL Ratio 5.04 Ratio; Free T4 (Free Thyroxine) 1.08 ng/dL (0.76-1.46); HDL Cholesterol 33.7 mg/dL (40.0-60.0); LDL Cholesterol,Calculated 107 mg/dL (0-99); Phosphorus 2.5 mg/dL (2.5-4.9); Thyroid Stimulating Hormone 0.339 uIU/mL (0.358-3.740); Total Protein 5.9 g/dL (6.4-8.2); Troponin I 0.17 ng/mL (0.02-0.05)
[2017-09-03] MEDS: Lisinopril 20 MG Tablet PO SCH (08:44)
[2017-09-03] MEDS: Senna/Docusate Sodium 8.6/50 MG Tablet PO SCH ×2 (08:44→21:12)
[2017-09-03] MEDS: Metoprolol Tartrate 100 MG Tablet PO SCH ×2 (08:44→21:12)
--- NOTE | 2017-09-03 11:12 | P.PNIM ---
Subjective Interval history: This is a 57-year-old male with PMH of HTN, Hyperlipidemia, H/o CVA w/ Left- Sided Hemiparesis, COPD, CHF (Echo 05/23 w/ EF 40-45%), PVD and Chronic LE Ulcer who was brought to the ER by EMS for c/o dizziness and generalized weakness. Per report, pt had been sent to SNF following CVA for Rehab, pt apparently wasn' t happy with the Rehab and LEFT AMA, however has been living on the streets since he had nowhere to go. Denies fever, chills, nausea, vomiting or diarrhea. Per EMS, pt noted to have abnormal EKG, however pt w/ no complaints of chest pain. On arrival, BP 236/113, HR 103, O2 sat 98% on RA, Afebrile. CBC unremarkable. INR 1.1. Troponin 0.22, EKG w/ ST-T wave changes. S/p Morphine/NTG in ER and currently on Heparin gtt 09-02 MEDICAL MANAGEMENT PER CARDIOLOGY ADJUST MEDICATIONS NOT A GOOD CANDIDATE FOR INTERVENTIONS DUE TO POOR COMPLIANCE DW RN AND PT AND CM 09-03 WILL NEED PLACEMENT DW RN AND PT AND CM AM LABS PT AND OT Physical Exam Vital signs: Vital Signs 09/02/17 12:00 09/02/17 13:00 09/02/17 14:00 Temperature 98.1 F Pulse Rate 67 70 66 Respiratory Rate 18 Blood Pressure 171/84 H Pulse Oximetry 97 09/02/17 15:00 09/02/17 16:00 09/02/17 17:00 Temperature 98.3 F Pulse Rate 63 65 66 Respiratory Rate 18 Blood Pressure 139/66 Pulse Oximetry 96 09/02/17 18:00 09/02/17 19:00 09/02/17 19:18 Temperature 98.6 F Pulse Rate 64 65 64 Respiratory Rate 16 Blood Pressure 142/59 H Pulse Oximetry 99 09/02/17 20:00 09/02/17 21:00 09/02/17 22:00 Temperature Pulse Rate 64 66 58 L Respiratory Rate Blood Pressure Pulse Oximetry 09/02/17 23:00 09/03/17 00:00 09/03/17 01:00 Temperature 98.5 F Pulse Rate 57 L 59 L 57 L Respiratory Rate 16 Blood Pressure 129/69 Pulse Oximetry 98 09/03/17 02:00 09/03/17 02:59 09/03/17 03:00 Temperature 97.7 F Pulse Rate 60 69 52 L Respiratory Rate 16 Blood Pressure 152/67 H Pulse Oximetry 98 09/03/17 04:00 09/03/17 05:00 09/03/17 05:52 Temperature Pulse Rate 48 L 47 L 64 Respiratory Rate Blood Pressure Pulse Oximetry 09/03/17 07:00 09/03/17 08:00 09/03/17 09:00 Temperature Pulse Rate 53 L 56 L 64 Respiratory Rate Blood Pressure Pulse Oximetry 09/03/17 10:00 09/03/17 11:00 Temperature Pulse Rate 160 H 61 Respiratory Rate Blood Pressure Pulse Oximetry Intake & Output 09/02/17 09/03/17 09/03/17 18:59 06:59 18:59 Intake Total 500 / 500 1360 / 1360 100 / 100 Output Total 200 / 200 600 / 600 Balance 300 / 300 760 / 760 100 / 100 Weight 45.8 kg Intake: IV 1000 / 1000 100 / 100 NS Inj 1,000 ML @ 100 mls/hr IV 1000 / 1000 .CONT .Q10H KALEB Rx#:[id number] Oral 500 / 500 360 / 360 Output: Urine 200 / 200 600 / 600 Other: Date of Last Bowel Movement 09/01/17 Narrative: GENERAL: Middle-aged white male in no acute distress, disheveled, unkept. Wheelchair at bedside. LEFT SIDE IS FLACCID HEENT: PERRLA, EOMI. No scleral icterus or conjunctival pallor. No lid lag or facial droop. EOMI PERRLA TONGUE MIDLINE CARDIOVASCULAR: Regular rate and rhythm. No obvious murmurs to auscultation. No chest tenderness to palpation. S1, S2 NO S3 OR S4 RESPIRATORY: No obvious rhonchi or wheezing. Clear to auscultation. Breath sounds equal bilaterally. GASTROINTESTINAL: Abdomen soft, non-tender, nondistended. BS normal. MUSCULOSKELETAL: Extremities without clubbing, cyanosis, or edema. No obvious deformities. LLE w/ pressure ulcer boot LEFT SIDE IS FLACCID - CAN MOVE RIGHT SIDE NEUROLOGICAL: Awake, alert and oriented x4. No focal neurologic deficits. Moving RIGHT upper and lower extremities spontaneously--LEFT UE AND LE ARE FLACCID. Insight and judgment is limited ;mood and behavior somewhat APPROPRIATE Results - Labs CBC & Chem 7: 09/03/17 05:31 09/03/17 05:31 Laboratory Results - last 24 hr 09/03/17 09/03/17 05:31 05:31 WBC 5.7 RBC 3.79 L Hgb 12.2 L Hct 35.6 L MCV 93.8 MCH 32.1 MCHC 34.2 RDW 13.9 Plt Count 209 MPV 8.0 Neut % (Auto) 52.6 Lymph % (Auto) 30.6 [place] % (Auto) 8.7 H Eos % (Auto) 7.0 H Baso % (Auto) 1.1 Neut # (Auto) 3.0 Lymph # (Auto) 1.7 [place] # (Auto) 0.5 Eos # (Auto) 0.4 Baso # (Auto) 0.1 WBC Differential . Differential Comment Auto diff final Sodium 142 Potassium 3.9 Chloride 109 H Carbon Dioxide 27.7 Anion Gap 5 BUN 24 H Creatinine 0.98 Estimated GFR 79 L Random Glucose 77 Calcium 8.0 L Phosphorus 2.5 Magnesium 2.2 Total Bilirubin 0.1 L AST 27 ALT 27 Alkaline Phosphatase 99 Troponin I 0.17 H Total Protein 5.9 L Albumin 2.6 L Triglycerides 148 Cholesterol 170 LDL Cholesterol, Calc 107 H HDL Cholesterol 33.7 L Cholesterol/HDL Ratio 5.04 TSH 0.339 L Free T4 1.08 Microbiology 09/02/17 00:30 Blood - Peripheral Aerobic Blood Culture - Preliminary No growth in 1 day 09/02/17 00:30 Blood - Peripheral Anaerobic Blood Culture - Preliminary No growth in 1 day 09/02/17 00:13 Blood - Peripheral Aerobic Blood Culture - Preliminary No growth in 1 day 09/02/17 00:13 Blood - Peripheral Anaerobic Blood Culture - Preliminary No growth in 1 day - Imaging Head CT 09/02/17 00:05 CONCLUSION: 1. Remote right frontoparietal infarct. 2. Moderate cerebral atrophy out of proportion to age. 3. No acute intracranial abnormality. . - Procedures NONE Assessment and Plan - Assessment (1) NSTEMI (non-ST elevated myocardial infarction) Code(s): I21.4 - Non-ST elevation (NSTEMI) myocardial infarction Status: Acute (2) H/O: CVA (cerebrovascular accident) Code(s): Z86.73 - Personal history of transient ischemic attack (TIA), and cerebral infarction without residual deficits Status: Acute (3) HTN (hypertension) Code(s): I10 - Essential (primary) hypertension Status: Acute (4) CHF (congestive heart failure) Code(s): I50.9 - Heart failure, unspecified Status: Acute - Plan 1. NSTEMI: Trop 0.22, abnormal EKG, pt w/ no complaints of chest pain. On Heparin gtt, will continue. Start ASA, Statin, B-[place]. Check serial cardiac enzymes for trend. Consult Cardiology for further evaluation/ intervention.- STOP HEPARIN DRIP-MEDICAL MANAGEMENT PER CARDIOLOGY 2. HTN: Uncontrolled. BP 230's systolic on arrival, BP currently 151/87, monitor closely, antihypertensives as needed for BP >180--MEDS ADJUSTED- WILL ADJUST NEEDED 3. CVA: h/o CVA w/ residual left-sided weakness, recently at SNF for Rehab, however apparently LEFT AMA and has been living on the streets. PT for eval/ tx. Case Management for placement. 4. CHF: Chronic. Systolic. Echo 05/23 w/ EF 40-45%, no evidence of fluid overload at this time, monitor I/O. 5. DVT Prophylaxis: Heparin gtt 6. Social work for d/c planning as needed MALIGNANT MEDICAL NONCOMPLIANCE PATIENT LEFT AMA FROM SNF- NOW HOMELESS ON THE STREETS PT AND OT EVAL WILL NEED SAFE PLACEMENT Code Status: FULL CODE Discussed Condition With: RN AND PT AND CM Discharge Planning: PENDING IMPROVEMENT AND SAFE PLACE FOR DC PATIENT BACK ON MEDICATIONS NOW
--- NOTE | 2017-09-03 12:16 | ECG ---
Date Performed: 09/02/2017 Time Performed: 00:05:51 PTAGE: 57 years EKG: Sinus rhythm WITH OCCASIONAL SUPRAVENTRICULAR PREMATURE COMPLEXES CONSIDER LATERAL MYOCARDIAL INFARCTION, AGE IND ETERMINATE CONSIDER INFEROLATERAL ISCHEMIA WELL ST DEVIATION AND MARKED T-WAVE ABNORMALITY, CONSID ER INFERIOR ISCHEMIA PROLONGED QTC ABNORMAL ECG PREVIOUS TRACING : 05/18/2017 13.32 DOCTOR: David Vera Interpretating Date/Time 09/03/2017 12:15:53
--- NOTE | 2017-09-03 12:18 | ECG ---
Date Performed: 09/02/2017 Time Performed: 08:43:58 PTAGE: 57 years EKG: Sinus rhythm . Short SC interval Rightward axis Left ventricular hypertrophy Inferior/lateral ST-T changes are pro bably due to ventricular hypertrophy Consider inferior and anterolateral ischemia Consider lateral ST elevation myocardial infarction, age indeterminate Prolonged QTc Abnormal ECG PREVIOUS TRACING : 09/02/2017 00.05 DOCTOR: David Vera Interpretating Date/Time 09/03/2017 12:16:45
[2017-09-03] MEDS: Heparin - SQ 10,000 UNITS/ML Vial SQ SCH ×2 (13:37→21:12)
[2017-09-03 16:07] LABS: Hemoglobin A1c 5.4 % (4.3-6.0)
--- NOTE | 2017-09-03 16:46 | P.PNWCN ---
Wound Care Nurse Consult Description: Consult for Wound Management of heel per Dr Macias Communicated with: Patient RN Recommendation: Change dressing to left foot Q3D and PRN for saturation or dislodgement. - Cleanse wound - Apply Optifoam AG - Secure with rolled gauze and tape Additional information: Patient seen on [facility] for heel wound. Wound/Pressure Injury - Wound Left Heel Wound Assessment: Ongoing Is This a Chronic Wound: Yes Requested from Provider a Wound Care Consult: Yes (Dr Macias) Length: 2 (cm) Width: 1 (cm) Depth: 0.3 (cm) Wound Bed Appearance: Nora, Red, White Drainage Amount: None Dressing Status: Changed Cleansing Solution: Saline Primary Dressing: Gauze Pad Cover Dressing: Adhesive Dressing Wound Dressing Change Date: 09/03/17
[2017-09-03] MEDS: Morphine Inj 4 MG/ML Vial IV.PUSH PRN ×2 (16:47→21:12)
[2017-09-03] MEDS: Temazepam 15 MG Capsule PO PRN (21:12)
[2017-09-04] MEDS: Morphine Inj 4 MG/ML Vial IV.PUSH PRN ×4 (05:39→22:18)
[2017-09-04] MEDS: Sod Chloride 0.9% Inj 1,000 ML IV.CONT SCH ×2 (06:05→18:48)
[2017-09-04 06:51] LABS: Baso # (Auto) 0.1 th/mm3 (0.0-0.2); Baso % (Auto) 1.2 % (0.0-2.0); Eos # (Auto) 0.4 th/mm3 (0.0-0.4); Eos % (Auto) 7.6 % (0.0-4.0); Hematocrit 33.9 % (39.0-51.0); Hemoglobin 11.4 gm/dL (13.0-17.0); Lymph # (Auto) 1.4 th/mm3 (1.0-4.8); Lymph % (Auto) 25.6 % (9.0-44.0); Mean Corpuscular HGB Conc 33.6 % (32.0-36.0); Mean Corpuscular Hemoglobin 31.5 pg (27.0-34.0); Mean Corpuscular Volume 93.9 fL (80.0-100.0); Mean Platelet Volume 8.2 fL (7.0-11.0); Mono # (Auto) 0.5 th/mm3 (0.0-0.9); Mono % (Auto) 9.9 % (0.0-8.0); Neut # (Auto) 3.1 th/mm3 (1.8-7.7); Neut % (Auto) 55.7 % (16.0-70.0); Platelet Count 198 th/mm3 (150-450); Red Blood Count 3.61 mil/mm3 (4.50-5.90); Red Cell Distribution Width 14.2 % (11.6-17.2); White Blood Count 5.5 th/mm3 (4.0-11.0)
[2017-09-04 07:16] LABS: Alanine Aminotransferase 28 U/L (12-78); Albumin 2.4 g/dL (3.4-5.0); Anion Gap 5 meq/L (5-15); Blood Urea Nitrogen 18 mg/dL (7-18); Calcium 7.8 mg/dL (8.5-10.1); Carbon Dioxide 26.3 meq/L (21.0-32.0); Chloride 113 meq/L (98-107); Glomerular Filtration Rate 86 mL/min (>89); Glucose,Random 91 mg/dL (74-106); Magnesium 2.1 mg/dL (1.5-2.5); Phosphorus 2.9 mg/dL (2.5-4.9); Potassium 4.1 meq/L (3.5-5.1); Sodium 144 meq/L (136-145)
[2017-09-04 07:29] LABS: Alkaline Phosphatase 97 U/L (45-117); Aspartate Aminotransferase 24 U/L (15-37); Total Protein 5.7 g/dL (6.4-8.2)
[2017-09-04] MEDS: Heparin - SQ 10,000 UNITS/ML Vial SQ SCH ×2 (08:17→21:18)
[2017-09-04] MEDS: Lisinopril 20 MG Tablet PO SCH (08:18)
[2017-09-04] MEDS: Metoprolol Tartrate 100 MG Tablet PO SCH ×2 (08:18→21:18)
[2017-09-04] MEDS: Senna/Docusate Sodium 8.6/50 MG Tablet PO SCH ×2 (08:19→21:18)
--- NOTE | 2017-09-04 16:58 | P.PNIM ---
Subjective Interval history: This is a 57-year-old male with PMH of HTN, Hyperlipidemia, H/o CVA w/ Left- Sided Hemiparesis, COPD, CHF (Echo 05/23 w/ EF 40-45%), PVD and Chronic LE Ulcer who was brought to the ER by EMS for c/o dizziness and generalized weakness. Per report, pt had been sent to SNF following CVA for Rehab, pt apparently wasn' t happy with the Rehab and LEFT AMA, however has been living on the streets since he had nowhere to go. Denies fever, chills, nausea, vomiting or diarrhea. Per EMS, pt noted to have abnormal EKG, however pt w/ no complaints of chest pain. On arrival, BP 236/113, HR 103, O2 sat 98% on RA, Afebrile. CBC unremarkable. INR 1.1. Troponin 0.22, EKG w/ ST-T wave changes. S/p Morphine/NTG in ER and currently on Heparin gtt 09-02 MEDICAL MANAGEMENT PER CARDIOLOGY ADJUST MEDICATIONS NOT A GOOD CANDIDATE FOR INTERVENTIONS DUE TO POOR COMPLIANCE DW RN AND PT AND CM 09-03 WILL NEED PLACEMENT DW RN AND PT AND CM AM LABS PT AND OT 09-04 AWAIT SAFE DC NEEDS PLACEMENT NO NEW COMPLAINTS TRANSFER OFF OF [facility] DW RN AND PT AND CM ADD NORVASC 5MG PO DAILY Physical Exam Vital signs: Vital Signs 09/03/17 18:00 09/03/17 19:00 09/03/17 19:37 Temperature 97.7 F Pulse Rate 55 L 56 L 71 Respiratory Rate 20 Blood Pressure 194/92 H Pulse Oximetry 97 09/03/17 20:00 09/03/17 21:00 09/03/17 22:00 Temperature Pulse Rate 60 66 72 Respiratory Rate Blood Pressure Pulse Oximetry 09/03/17 23:00 09/04/17 00:00 09/04/17 01:00 Temperature 98.1 F Pulse Rate 58 L 65 53 L Respiratory Rate 18 Blood Pressure 187/86 H Pulse Oximetry 97 09/04/17 02:00 09/04/17 03:00 09/04/17 04:00 Temperature 97.7 F Pulse Rate 50 L 57 L 63 Respiratory Rate 20 20 Blood Pressure 187/86 H Pulse Oximetry 96 09/04/17 05:00 09/04/17 05:40 09/04/17 06:00 Temperature Pulse Rate 52 L 51 L Respiratory Rate 18 Blood Pressure Pulse Oximetry 09/04/17 07:00 09/04/17 08:00 09/04/17 09:00 Temperature 97.7 F Pulse Rate 47 L 52 L 54 L Respiratory Rate 16 Blood Pressure 168/80 H Pulse Oximetry 97 09/04/17 10:00 09/04/17 11:00 Temperature 98.1 F Pulse Rate 48 L 58 L Respiratory Rate 16 Blood Pressure 169/80 H Pulse Oximetry 95 Intake & Output 09/03/17 09/04/17 09/04/17 18:59 06:59 18:59 Intake Total 1360 / 1360 1480 / 1480 1000 / 1000 Output Total 120 / 120 250 / 250 Balance 1240 / 1240 1230 / 1230 1000 / 1000 Weight 48.5 kg Intake: IV 1100 / 1100 1000 / 1000 1000 / 1000 NS Inj 1,000 ML @ 100 mls/hr IV 1000 / 1000 1000 / 1000 1000 / 1000 .CONT .Q10H KALEB Rx#:[id number] Oral 260 / 260 480 / 480 Output: Urine 120 / 120 250 / 250 Narrative: GENERAL: Middle-aged white male in no acute distress, disheveled, unkept. Wheelchair at bedside. LEFT SIDE IS FLACCID HEENT: PERRLA, EOMI. No scleral icterus or conjunctival pallor. No lid lag or facial droop. EOMI PERRLA TONGUE MIDLINE CARDIOVASCULAR: Regular rate and rhythm. No obvious murmurs to auscultation. No chest tenderness to palpation. S1, S2 NO S3 OR S4 RESPIRATORY: No obvious rhonchi or wheezing. Clear to auscultation. Breath sounds equal bilaterally. GASTROINTESTINAL: Abdomen soft, non-tender, nondistended. BS normal. MUSCULOSKELETAL: Extremities without clubbing, cyanosis, or edema. No obvious deformities. LLE w/ pressure ulcer boot LEFT SIDE IS FLACCID - CAN MOVE RIGHT SIDE NEUROLOGICAL: Awake, alert and oriented x4. No focal neurologic deficits. Moving RIGHT upper and lower extremities spontaneously--LEFT UE AND LE ARE FLACCID. Insight and judgment is limited ;mood and behavior somewhat APPROPRIATE Results - Labs CBC & Chem 7: 09/04/17 05:50 09/04/17 05:50 Laboratory Results - last 24 hr 09/03/17 09/04/17 09/04/17 05:31 05:50 05:50 WBC 5.5 RBC 3.61 L Hgb 11.4 L Hct 33.9 L MCV 93.9 MCH 31.5 MCHC 33.6 RDW 14.2 Plt Count 198 MPV 8.2 Neut % (Auto) 55.7 Lymph % (Auto) 25.6 [place] % (Auto) 9.9 H Eos % (Auto) 7.6 H Baso % (Auto) 1.2 Neut # (Auto) 3.1 Lymph # (Auto) 1.4 [place] # (Auto) 0.5 Eos # (Auto) 0.4 Baso # (Auto) 0.1 WBC Differential . Differential Comment Auto diff final Sodium 144 Potassium 4.1 Chloride 113 H Carbon Dioxide 26.3 Anion Gap 5 BUN 18 Creatinine 0.91 Estimated GFR 86 L Random Glucose 91 Hemoglobin A1c 5.4 Calcium 7.8 L Phosphorus 2.9 Magnesium 2.1 Total Bilirubin Less than 0.1 L AST 24 ALT 28 Alkaline Phosphatase 97 Total Protein 5.7 L Albumin 2.4 L Microbiology 09/02/17 00:30 Blood - Peripheral Aerobic Blood Culture - Preliminary No growth in 2 days 09/02/17 00:30 Blood - Peripheral Anaerobic Blood Culture - Preliminary No growth in 2 days 09/02/17 00:13 Blood - Peripheral Aerobic Blood Culture - Preliminary No growth in 2 days 09/02/17 00:13 Blood - Peripheral Anaerobic Blood Culture - Preliminary No growth in 2 days - Procedures NONE Assessment and Plan - Assessment (1) NSTEMI (non-ST elevated myocardial infarction) Code(s): I21.4 - Non-ST elevation (NSTEMI) myocardial infarction Status: Acute (2) H/O: CVA (cerebrovascular accident) Code(s): Z86.73 - Personal history of transient ischemic attack (TIA), and cerebral infarction without residual deficits Status: Acute (3) HTN (hypertension) Code(s): I10 - Essential (primary) hypertension Status: Acute (4) CHF (congestive heart failure) Code(s): I50.9 - Heart failure, unspecified Status: Acute - Plan 1. NSTEMI: Trop 0.22, abnormal EKG, pt w/ no complaints of chest pain. On Heparin gtt, will continue. Start ASA, Statin, B-[place]. Check serial cardiac enzymes for trend. Consult Cardiology for further evaluation/ intervention.- STOP HEPARIN IP-MEDICAL MANAGEMENT PER CARDIOLOGY 2. HTN: Uncontrolled. BP 230's systolic on arrival, BP currently 151/87, monitor closely, antihypertensives as needed for BP >180--MEDS ADJUSTED- WILL ADJUST NEEDED--ADD NORVASC 5MG PO DAILY 3. CVA: h/o CVA w/ residual left-sided weakness, recently at SNF for Rehab, however apparently LEFT AMA and has been living on the streets. PT for eval/ tx. Case Management for placement. 4. CHF: Chronic. Systolic. Echo 05/23 w/ EF 40-45%, no evidence of fluid overload at this time, monitor I/O. 5. DVT Prophylaxis: Heparin gtt 6. Social work for d/c planning as needed MALIGNANT MEDICAL NONCOMPLIANCE PATIENT LEFT AMA FROM SNF- NOW HOMELESS ON THE STREETS PT AND OT EVAL WILL NEED SAFE PLACEMENT Code Status: FULL CODE Discussed Condition With: RN AND PT AND CM Discharge Planning: PENDING IMPROVEMENT AND SAFE PLACE FOR DC PATIENT BACK ON MEDICATIONS NOW
[2017-09-04] MEDS: amLODIPine 5 MG Tablet PO SCH (17:17)
[2017-09-05] MEDS ORDERED: hydrALAZINE HCl Inj 20 MG/ML Vial IV.PUSH ONE (00:10)
[2017-09-05] MEDS ORDERED: hydrALAZINE 25 MG Tablet PO ONE (00:15)
[2017-09-05 06:18] LABS: Baso # (Auto) 0.1 th/mm3 (0.0-0.2); Baso % (Auto) 0.9 % (0.0-2.0); Eos # (Auto) 0.5 th/mm3 (0.0-0.4); Eos % (Auto) 7.3 % (0.0-4.0); Hematocrit 35.2 % (39.0-51.0); Hemoglobin 11.9 gm/dL (13.0-17.0); Lymph # (Auto) 1.4 th/mm3 (1.0-4.8); Lymph % (Auto) 20.2 % (9.0-44.0); Mean Corpuscular HGB Conc 33.9 % (32.0-36.0); Mean Corpuscular Hemoglobin 31.7 pg (27.0-34.0); Mean Corpuscular Volume 93.7 fL (80.0-100.0); Mean Platelet Volume 8.2 fL (7.0-11.0); Mono # (Auto) 0.6 th/mm3 (0.0-0.9); Mono % (Auto) 7.9 % (0.0-8.0); Neut # (Auto) 4.5 th/mm3 (1.8-7.7); Neut % (Auto) 63.7 % (16.0-70.0); Platelet Count 219 th/mm3 (150-450); Red Blood Count 3.76 mil/mm3 (4.50-5.90); White Blood Count 7.1 th/mm3 (4.0-11.0)
[2017-09-05 06:43] LABS: Alanine Aminotransferase 26 U/L (12-78); Albumin 2.4 g/dL (3.4-5.0); Anion Gap 4 meq/L (5-15); Aspartate Aminotransferase 20 U/L (15-37); Blood Urea Nitrogen 16 mg/dL (7-18); Calcium 8.2 mg/dL (8.5-10.1); Carbon Dioxide 27.9 meq/L (21.0-32.0); Chloride 109 meq/L (98-107); Glomerular Filtration Rate Greater Than 89 mL/min (>89); Glucose,Random 82 mg/dL (74-106); Magnesium 1.9 mg/dL (1.5-2.5); Phosphorus 2.3 mg/dL (2.5-4.9); Potassium 4.2 meq/L (3.5-5.1); Sodium 141 meq/L (136-145)
[2017-09-05 06:46] LABS: Alkaline Phosphatase 87 U/L (45-117); Total Protein 5.8 g/dL (6.4-8.2)
[2017-09-05] MEDS: amLODIPine 5 MG Tablet PO SCH (09:00)
[2017-09-05] MEDS: Lisinopril 20 MG Tablet PO SCH (09:00)
[2017-09-05] MEDS: Senna/Docusate Sodium 8.6/50 MG Tablet PO SCH ×2 (09:00→20:06)
[2017-09-05] MEDS: Metoprolol Tartrate 100 MG Tablet PO SCH ×2 (09:00→20:06)
[2017-09-05] MEDS: Morphine Inj 4 MG/ML Vial IV.PUSH PRN ×2 (09:01→13:27)
[2017-09-05] MEDS: Heparin - SQ 10,000 UNITS/ML Vial SQ SCH ×2 (09:01→20:06)
[2017-09-05] MEDS ORDERED: Naloxone Inj 0.4 MG/ML Vial IV.PUSH PRN (15:26)
--- NOTE | 2017-09-05 15:27 | P.PNIM ---
Subjective Interval history: This is a 57-year-old male with PMH of HTN, Hyperlipidemia, H/o CVA w/ Left- Sided Hemiparesis, COPD, CHF (Echo 05/23 w/ EF 40-45%), PVD and Chronic LE Ulcer who was brought to the ER by EMS for c/o dizziness and generalized weakness. Per report, pt had been sent to SNF following CVA for Rehab, pt apparently wasn' t happy with the Rehab and LEFT AMA, however has been living on the streets since he had nowhere to go. Denies fever, chills, nausea, vomiting or diarrhea. Per EMS, pt noted to have abnormal EKG, however pt w/ no complaints of chest pain. On arrival, BP 236/113, HR 103, O2 sat 98% on RA, Afebrile. CBC unremarkable. INR 1.1. Troponin 0.22, EKG w/ ST-T wave changes. S/p Morphine/NTG in ER and currently on Heparin gtt 09-02 MEDICAL MANAGEMENT PER CARDIOLOGY ADJUST MEDICATIONS NOT A GOOD CANDIDATE FOR INTERVENTIONS DUE TO POOR COMPLIANCE DW RN AND PT AND CM 09-03 WILL NEED PLACEMENT DW RN AND PT AND CM AM LABS PT AND OT 09-04 AWAIT SAFE DC NEEDS PLACEMENT NO NEW COMPLAINTS TRANSFER OFF OF [facility] DW RN AND PT AND CM ADD NORVASC 5MG PO DAILY 8-1 TRANSFER TO THE FLOOR NEEDS PLACEMENT DW RN AND PT AND CM WATCH BP PATIENT NEEDS PO PAIN MEDS Physical Exam Vital signs: Vital Signs 09/04/17 16:00 09/04/17 17:00 09/04/17 17:44 Temperature 98.1 F Pulse Rate 54 L 54 L 54 L Respiratory Rate 18 Blood Pressure 179/75 H Pulse Oximetry 96 09/04/17 18:00 09/04/17 19:00 09/04/17 20:00 Temperature 98.3 F Pulse Rate 54 L 60 64 Respiratory Rate 18 Blood Pressure 189/91 H Pulse Oximetry 94 L 09/04/17 21:00 09/04/17 21:10 09/04/17 22:00 Temperature Pulse Rate 52 L 56 L Respiratory Rate Blood Pressure 209/91 H Pulse Oximetry 09/04/17 22:10 09/04/17 23:00 09/04/17 23:26 Temperature 98.8 F Pulse Rate 54 L Respiratory Rate 18 16 Blood Pressure 191/87 H 179/79 H Pulse Oximetry 94 L 09/05/17 00:00 09/05/17 01:00 09/05/17 02:00 Temperature Pulse Rate 52 L 55 L 50 L Respiratory Rate 16 Blood Pressure 203/87 H Pulse Oximetry 09/05/17 03:00 09/05/17 04:00 09/05/17 05:00 Temperature 98.7 F Pulse Rate 54 L 54 L 52 L Respiratory Rate 18 16 Blood Pressure 164/73 H Pulse Oximetry 93 L 09/05/17 06:00 09/05/17 07:00 09/05/17 08:00 Temperature 98.5 F Pulse Rate 56 L 56 L 58 L Respiratory Rate 17 Blood Pressure 170/75 H Pulse Oximetry 96 09/05/17 09:00 09/05/17 10:00 09/05/17 10:33 Temperature Pulse Rate 58 L 48 L Respiratory Rate 16 Blood Pressure Pulse Oximetry 09/05/17 10:58 09/05/17 11:00 09/05/17 11:47 Temperature 98.5 F Pulse Rate 54 L 52 L Respiratory Rate 18 Blood Pressure 165/77 H 140/66 Pulse Oximetry 09/05/17 12:00 09/05/17 13:00 09/05/17 14:00 Temperature Pulse Rate 49 L 65 46 L Respiratory Rate Blood Pressure Pulse Oximetry 09/05/17 14:49 Temperature 98.1 F Pulse Rate 47 L Respiratory Rate 16 Blood Pressure 130/60 Pulse Oximetry 94 L Intake & Output 09/04/17 09/05/17 09/05/17 18:59 06:59 18:59 Intake Total 1240 / 1240 540 / 540 Output Total 460 / 460 775 / 775 Balance 780 / 780 -235 / -235 Weight 49 kg 56.699 kg Intake: IV 1000 / 1000 300 / 300 NS Inj 1,000 ML @ 100 mls/hr IV 1000 / 1000 300 / 300 .CONT .Q10H KALEB Rx#:[id number] Oral 240 / 240 240 / 240 Output: Urine 460 / 460 775 / 775 Other: Date of Last Bowel Movement 09/01/17 # Bowel Movements 0 0 Weight On Admission 56.699 kg Narrative: GENERAL: Middle-aged white male in no acute distress, disheveled, unkept. Wheelchair at bedside. LEFT SIDE IS FLACCID HEENT: PERRLA, EOMI. No scleral icterus or conjunctival pallor. No lid lag or facial droop. EOMI PERRLA TONGUE MIDLINE CARDIOVASCULAR: Regular rate and rhythm. No obvious murmurs to auscultation. No chest tenderness to palpation. S1, S2 NO S3 OR S4 RESPIRATORY: No obvious rhonchi or wheezing. Clear to auscultation. Breath sounds equal bilaterally. GASTROINTESTINAL: Abdomen soft, non-tender, nondistended. BS normal. MUSCULOSKELETAL: Extremities without clubbing, cyanosis, or edema. No obvious deformities. LLE w/ pressure ulcer boot LEFT SIDE IS FLACCID - CAN MOVE RIGHT SIDE NEUROLOGICAL: Awake, alert and oriented x4. No focal neurologic deficits. Moving RIGHT upper and lower extremities spontaneously--LEFT UE AND LE ARE FLACCID. Insight and judgment is limited ;mood and behavior somewhat APPROPRIATE Results - Labs CBC & Chem 7: 09/05/17 05:35 09/05/17 05:35 Laboratory Results - last 24 hr 09/05/17 09/05/17 05:35 05:35 WBC 7.1 RBC 3.76 L Hgb 11.9 L Hct 35.2 L MCV 93.7 MCH 31.7 MCHC 33.9 RDW 14.0 Plt Count 219 MPV 8.2 Neut % (Auto) 63.7 Lymph % (Auto) 20.2 [place] % (Auto) 7.9 Eos % (Auto) 7.3 H Baso % (Auto) 0.9 Neut # (Auto) 4.5 Lymph # (Auto) 1.4 [place] # (Auto) 0.6 Eos # (Auto) 0.5 H Baso # (Auto) 0.1 WBC Differential . Differential Comment Auto diff final Sodium 141 Potassium 4.2 Chloride 109 H Carbon Dioxide 27.9 Anion Gap 4 L BUN 16 Creatinine 0.85 Estimated GFR Greater than 89 Random Glucose 82 Calcium 8.2 L Phosphorus 2.3 L Magnesium 1.9 Total Bilirubin 0.1 L AST 20 ALT 26 Alkaline Phosphatase 87 Total Protein 5.8 L Albumin 2.4 L Microbiology 09/02/17 00:30 Blood - Peripheral Aerobic Blood Culture - Preliminary No growth in 3 days 09/02/17 00:30 Blood - Peripheral Anaerobic Blood Culture - Preliminary No growth in 3 days 09/02/17 00:13 Blood - Peripheral Aerobic Blood Culture - Preliminary No growth in 3 days 09/02/17 00:13 Blood - Peripheral Anaerobic Blood Culture - Preliminary No growth in 3 days - Procedures NONE Assessment and Plan - Assessment (1) NSTEMI (non-ST elevated myocardial infarction) Code(s): I21.4 - Non-ST elevation (NSTEMI) myocardial infarction Status: Acute (2) H/O: CVA (cerebrovascular accident) Code(s): Z86.73 - Personal history of transient ischemic attack (TIA), and cerebral infarction without residual deficits Status: Acute (3) HTN (hypertension) Code(s): I10 - Essential (primary) hypertension Status: Acute (4) CHF (congestive heart failure) Code(s): I50.9 - Heart failure, unspecified Status: Acute - Plan 1. NSTEMI: Trop 0.22, abnormal EKG, pt w/ no complaints of chest pain. On Heparin gtt, will continue. Start ASA, Statin, B-[place]. Check serial cardiac enzymes for trend. Consult Cardiology for further evaluation/ intervention.- STOP HEPARIN DRIP-MEDICAL MANAGEMENT PER CARDIOLOGY 2. HTN: Uncontrolled. BP 230's systolic on arrival, BP currently 151/87, monitor closely, antihypertensives as needed for BP >180--MEDS ADJUSTED- WILL ADJUST NEEDED--ADD NORVASC 5MG PO DAILY 3. CVA: h/o CVA w/ residual left-sided weakness, recently at SNF for Rehab, however apparently LEFT AMA and has been living on the streets. PT for eval/ tx. Case Management for placement. 4. CHF: Chronic. Systolic. Echo 05/23 w/ EF 40-45%, no evidence of fluid overload at this time, monitor I/O. 5. DVT Prophylaxis: Heparin gtt 6. Social work for d/c planning as needed MALIGNANT MEDICAL NONCOMPLIANCE PATIENT LEFT AMA FROM SNF- NOW HOMELESS ON THE STREETS PT AND OT EVAL WILL NEED SAFE PLACEMENT Code Status: FULL CODE Discussed Condition With: RN AND PT AND CM Discharge Planning: PENDING IMPROVEMENT AND SAFE PLACE FOR DC PATIENT BACK ON MEDICATIONS NOW
[2017-09-06] MEDS: Temazepam 15 MG Capsule PO PRN (01:06)
[2017-09-06] MEDS: Heparin - SQ 10,000 UNITS/ML Vial SQ SCH ×2 (09:10→20:47)
[2017-09-06] MEDS: amLODIPine 5 MG Tablet PO SCH (09:11)
[2017-09-06] MEDS: Metoprolol Tartrate 100 MG Tablet PO SCH ×2 (09:11→20:47)
[2017-09-06] MEDS: Senna/Docusate Sodium 8.6/50 MG Tablet PO SCH ×2 (09:11→20:48)
[2017-09-06] MEDS: Lisinopril 20 MG Tablet PO SCH (09:11)
[2017-09-06 11:49] LABS: Baso # (Auto) 0.1 th/mm3 (0.0-0.2); Baso % (Auto) 1.1 % (0.0-2.0); Eos # (Auto) 0.3 th/mm3 (0.0-0.4); Eos % (Auto) 4.1 % (0.0-4.0); Hematocrit 36.8 % (39.0-51.0); Hemoglobin 12.5 gm/dL (13.0-17.0); Lymph # (Auto) 1.5 th/mm3 (1.0-4.8); Mean Corpuscular HGB Conc 33.9 % (32.0-36.0); Mean Corpuscular Hemoglobin 31.8 pg (27.0-34.0); Mean Corpuscular Volume 93.6 fL (80.0-100.0); Mean Platelet Volume 8.2 fL (7.0-11.0); Mono # (Auto) 0.6 th/mm3 (0.0-0.9); Mono % (Auto) 7.8 % (0.0-8.0); Platelet Count 236 th/mm3 (150-450); Red Blood Count 3.94 mil/mm3 (4.50-5.90); Red Cell Distribution Width 14.3 % (11.6-17.2); White Blood Count 7.4 th/mm3 (4.0-11.0)
[2017-09-06 12:18] LABS: Albumin 2.5 g/dL (3.4-5.0); Anion Gap 7 meq/L (5-15); Aspartate Aminotransferase 24 U/L (15-37); Blood Urea Nitrogen 15 mg/dL (7-18); Calcium 8.8 mg/dL (8.5-10.1); Carbon Dioxide 27.8 meq/L (21.0-32.0); Chloride 105 meq/L (98-107); Glomerular Filtration Rate 89 mL/min (>89); Glucose,Random 103 mg/dL (74-106); Potassium 4.1 meq/L (3.5-5.1); Sodium 140 meq/L (136-145)
[2017-09-06 12:19] LABS: Alanine Aminotransferase 27 U/L (12-78); Phosphorus 2.8 mg/dL (2.5-4.9)
[2017-09-06 12:21] LABS: Alkaline Phosphatase 84 U/L (45-117); Total Protein 6.1 g/dL (6.4-8.2)
--- NOTE | 2017-09-06 14:32 | P.DIET ---
Nutritional Evaluation Type of nutrition evaluation: initial Nutrition screening: Weight Loss > 10 lbs Subjective Subjective Comments: Pt is homeless. His appetite is good now and he's eating 100% of his meals. Objective - Diagnosis NSTEMI, Dizziness c/o CVA, L Heel Pressure Ulcer - Objective % IBW: 62 (LMQ=088#) Body Weight Used for Calculations: IBW (75.5kg) Energy Needs - Lower Range (kCal/kg): 25 Energy Needs - Upper Range (kCal/kg): 30 Lower Limit kCal/kg (kCals): 1,888 Upper Limit kCal/kg (kCals): 2,265 Lower Limit Protein Factor (Grams per Kg): 1.1 Upper Limit Protein Factor (Grams per Kg): 1.3 Lower Protein Needs (Protein): 83 Upper Protein Needs (Protein): 98 Dietitian Reviewed in Medical Record: Current diet, Curent medications, Intake & Output, Labs, Medical history, Wound/DTI Diet Order: Heart Healthy Oral Diet Intake Amount: Good 75-90% Wound Care Note: 09/03: L heel pressure injury, no staging Objective Comments: Skin: line supply assessment states buttock pressure injury Assessment Assessment: Pt admitted for NSTEMI, dizziness c/o CVA, and L heel pressure injury. Pt is at 62% of his IBW. He is homeless. Current diet is a Heart Healthy diet and this is appropriate. Will add Enlive TID and Ensure Pudding TID for added calories and protein. Pt is at nutritional risk r/t low wt status and chronic L extremity pressure injury. No staging for L heel pressure injury. Currently eating 100%. Dietitian following. Recommendations: 1. Continue Heart Healthy diet. 2. Enlive and Ensure Pudding TID. Dietitian to Monitor: Lab values, Supplement acceptance, Intake & Output, Diet tolerance, Weight change, PO Intake, Wound/skin status, Medical course
--- NOTE | 2017-09-06 15:34 | P.PNIM ---
Subjective Interval history: This is a 57-year-old male with PMH of HTN, Hyperlipidemia, H/o CVA w/ Left- Sided Hemiparesis, COPD, CHF (Echo 05/23 w/ EF 40-45%), PVD and Chronic LE Ulcer who was brought to the ER by EMS for c/o dizziness and generalized weakness. Per report, pt had been sent to SNF following CVA for Rehab, pt apparently wasn' t happy with the Rehab and LEFT AMA, however has been living on the streets since he had nowhere to go. Denies fever, chills, nausea, vomiting or diarrhea. Per EMS, pt noted to have abnormal EKG, however pt w/ no complaints of chest pain. On arrival, BP 236/113, HR 103, O2 sat 98% on RA, Afebrile. CBC unremarkable. INR 1.1. Troponin 0.22, EKG w/ ST-T wave changes. S/p Morphine/NTG in ER and currently on Heparin gtt 09-02 MEDICAL MANAGEMENT PER CARDIOLOGY ADJUST MEDICATIONS NOT A GOOD CANDIDATE FOR INTERVENTIONS DUE TO POOR COMPLIANCE DW RN AND PT AND CM 7 WILL NEED PLACEMENT DW RN AND PT AND CM AM LABS PT AND OT 09-04 AWAIT SAFE DC NEEDS PLACEMENT NO NEW COMPLAINTS TRANSFER OFF OF [facility] DW RN AND PT AND CM ADD NORVASC 5MG PO DAILY 8-1 TRANSFER TO THE FLOOR NEEDS PLACEMENT DW RN AND PT AND CM WATCH BP PATIENT NEEDS PO PAIN MEDS 8-2 FOLLOW UP HX CVA AND HOMELESS NEEDS PLACEMENT DW RN AND PT AND CM ADJUST BP MEDS Physical Exam Vital signs: Vital Signs 09/05/17 16:00 09/05/17 17:00 09/05/17 18:00 Temperature Pulse Rate 46 L 51 L 65 Respiratory Rate Blood Pressure Pulse Oximetry 09/05/17 19:00 09/05/17 20:00 09/05/17 23:00 Temperature 98.2 F 97.8 F Pulse Rate 59 L 54 L 50 L Respiratory Rate 20 18 Blood Pressure 152/67 H 178/85 H Pulse Oximetry 96 94 L 09/06/17 00:00 09/06/17 03:00 09/06/17 07:00 Temperature 98.6 F 98.6 F Pulse Rate 52 L 50 L 52 L Respiratory Rate 18 17 Blood Pressure 175/80 H 172/83 H Pulse Oximetry 95 95 09/06/17 08:00 08/02/18 09:00 09/06/17 10:00 Temperature Pulse Rate 56 L 46 L 52 L Respiratory Rate Blood Pressure Pulse Oximetry 09/06/17 10:38 09/06/17 12:00 09/06/17 13:00 Temperature 98.6 F Pulse Rate 56 L 49 L 48 L Respiratory Rate 17 Blood Pressure 158/75 H Pulse Oximetry 09/06/17 14:00 09/06/17 15:00 Temperature 98.0 F Pulse Rate 49 L 51 L Respiratory Rate 15 Blood Pressure 127/58 L Pulse Oximetry 94 L Intake & Output 09/05/17 09/06/17 09/06/17 18:59 06:59 18:59 Intake Total 240 / 240 Output Total 850 / 850 250 / 250 Balance -850 / -850 -10 / -10 Weight 56.699 kg 47 kg Intake: Oral 240 / 240 Output: Urine 850 / 850 250 / 250 Other: # Voids 6 Date of Last Bowel Movement 09/01/17 09/06/17 09/06/17 # Bowel Movements 1 Weight On Admission 56.699 kg Narrative: GENERAL: Middle-aged white male in no acute distress, disheveled, unkept. Wheelchair at bedside. LEFT SIDE IS FLACCID HEENT: PERRLA, EOMI. No scleral icterus or conjunctival pallor. No lid lag or facial droop. EOMI PERRLA TONGUE MIDLINE CARDIOVASCULAR: Regular rate and rhythm. No obvious murmurs to auscultation. No chest tenderness to palpation. S1, S2 NO S3 OR S4 RESPIRATORY: No obvious rhonchi or wheezing. Clear to auscultation. Breath sounds equal bilaterally. GASTROINTESTINAL: Abdomen soft, non-tender, nondistended. BS normal. MUSCULOSKELETAL: Extremities without clubbing, cyanosis, or edema. No obvious deformities. LLE w/ pressure ulcer boot LEFT SIDE IS FLACCID - CAN MOVE RIGHT SIDE NEUROLOGICAL: Awake, alert and oriented x4. No focal neurologic deficits. Moving RIGHT upper and lower extremities spontaneously--LEFT UE AND LE ARE FLACCID. Insight and judgment is limited ;mood and behavior somewhat APPROPRIATE Results - Labs CBC & Chem 7: 09/06/17 10:52 09/06/17 10:52 Laboratory Results - last 24 hr 09/06/17 09/06/17 10:52 10:52 WBC 7.4 RBC 3.94 L Hgb 12.5 L Hct 36.8 L MCV 93.6 MCH 31.8 MCHC 33.9 RDW 14.3 Plt Count 236 MPV 8.2 Neut % (Auto) 67.0 Lymph % (Auto) 20.0 [place] % (Auto) 7.8 Eos % (Auto) 4.1 H Baso % (Auto) 1.1 Neut # (Auto) 5.0 Lymph # (Auto) 1.5 [place] # (Auto) 0.6 Eos # (Auto) 0.3 Baso # (Auto) 0.1 WBC Differential . Differential Comment Auto diff final Sodium 140 Potassium 4.1 Chloride 105 Carbon Dioxide 27.8 Anion Gap 7 BUN 15 Creatinine 0.88 Estimated GFR 89 Random Glucose 103 Calcium 8.8 Phosphorus 2.8 Magnesium 2.0 Total Bilirubin 0.1 L AST 24 ALT 27 Alkaline Phosphatase 84 Total Protein 6.1 L Albumin 2.5 L Microbiology 09/02/17 00:30 Blood - Peripheral Aerobic Blood Culture - Preliminary No growth in 4 days 09/02/17 00:30 Blood - Peripheral Anaerobic Blood Culture - Preliminary No growth in 4 days 09/02/17 00:13 Blood - Peripheral Aerobic Blood Culture - Preliminary No growth in 4 days 09/02/17 00:13 Blood - Peripheral Anaerobic Blood Culture - Preliminary No growth in 4 days - Procedures NONE Assessment and Plan - Assessment (1) NSTEMI (non-ST elevated myocardial infarction) Code(s): I21.4 - Non-ST elevation (NSTEMI) myocardial infarction Status: Acute (2) H/O: CVA (cerebrovascular accident) Code(s): Z86.73 - Personal history of transient ischemic attack (TIA), and cerebral infarction without residual deficits Status: Acute (3) HTN (hypertension) Code(s): I10 - Essential (primary) hypertension Status: Acute (4) CHF (congestive heart failure) Code(s): I50.9 - Heart failure, unspecified Status: Acute - Plan 1. NSTEMI: Trop 0.22, abnormal EKG, pt w/ no complaints of chest pain. On Heparin gtt, will continue. Start ASA, Statin, B-[place]. Check serial cardiac enzymes for trend. Consult Cardiology for further evaluation/ intervention.- STOP HEPARIN DRIP-MEDICAL MANAGEMENT PER CARDIOLOGY 2. HTN: Uncontrolled. BP 230's systolic on arrival, BP currently 151/87, monitor closely, antihypertensives as needed for BP >180--MEDS ADJUSTED- WILL ADJUST NEEDED--ADD NORVASC 5MG PO DAILY 3. CVA: h/o CVA w/ residual left-sided weakness, recently at SNF for Rehab, however apparently LEFT AMA and has been living on the streets. PT for eval/ tx. Case Management for placement. 4. CHF: Chronic. Systolic. Echo 05/23 w/ EF 40-45%, no evidence of fluid overload at this time, monitor I/O. 5. DVT Prophylaxis: Heparin gtt 6. Social work for d/c planning as needed MALIGNANT MEDICAL NONCOMPLIANCE PATIENT LEFT AMA FROM SNF- NOW HOMELESS ON THE STREETS PT AND OT EVAL WILL NEED SAFE PLACEMENT Code Status: FULL CODE Discussed Condition With: MOI RN AND PT AND CM Discharge Planning: PENDING IMPROVEMENT AND SAFE PLACE FOR DC PATIENT BACK ON MEDICATIONS NOW
[2017-09-07] MEDS: Lisinopril 20 MG Tablet PO SCH (09:12)
[2017-09-07] MEDS: Senna/Docusate Sodium 8.6/50 MG Tablet PO SCH ×2 (09:12→20:14)
[2017-09-07] MEDS: Metoprolol Tartrate 100 MG Tablet PO SCH ×2 (09:13→20:14)
[2017-09-07] MEDS: amLODIPine 5 MG Tablet PO SCH (09:13)
[2017-09-07] MEDS: Heparin - SQ 10,000 UNITS/ML Vial SQ SCH ×2 (09:14→20:14)
--- NOTE | 2017-09-07 17:22 | P.PNIM ---
Subjective Interval history: The patient was resting in bed comfortably. He said he had some pain in the leg. He said the pain medication was working. He said he worked with physical therapy. He was wondering if the case hardener was still looking for a place. Discussed with nursing. Physical Exam Vital signs: Vital Signs 09/06/17 18:01 09/06/17 18:06 09/06/17 20:00 Temperature 97.9 F 98.4 F Pulse Rate 50 L 47 L Respiratory Rate 20 17 17 Blood Pressure 179/78 H 180/80 H Pulse Oximetry 95 95 09/07/17 00:00 09/07/17 04:00 09/07/17 08:00 Temperature 98.4 F 97.9 F Pulse Rate 48 L 46 L 48 L Respiratory Rate 16 16 18 Blood Pressure 151/81 H 143/63 H Pulse Oximetry 95 95 09/07/17 09:13 09/07/17 11:44 09/07/17 12:00 Temperature 97.9 F Pulse Rate 51 L Respiratory Rate 20 20 18 Blood Pressure 130/58 L Pulse Oximetry 95 09/07/17 14:12 09/07/17 15:38 09/07/17 16:00 Temperature 97.6 F Pulse Rate 50 L Respiratory Rate 20 20 18 Blood Pressure 158/69 H Pulse Oximetry 96 Intake & Output 09/06/17 09/07/17 09/07/17 18:59 06:59 18:59 Intake Total 960 / 960 240 / 240 Output Total 575 / 575 600 / 600 Balance 385 / 385 -360 / -360 Intake: Oral 960 / 960 240 / 240 Output: Urine 575 / 575 600 / 600 Other: Date of Last Bowel Movement 09/06/17 # Bowel Movements 2 1 Narrative: GENERAL: No distress. HEENT: PERRLA, EOMI. No scleral icterus or conjunctival pallor. No lid lag or facial droop. EOMI. CARDIOVASCULAR: Regular rate and rhythm. No obvious murmurs to auscultation. No chest tenderness to palpation. RESPIRATORY: No obvious rhonchi or wheezing. Clear to auscultation. Breath sounds equal bilaterally. GASTROINTESTINAL: Abdomen soft, non-tender, nondistended. BS normal. MUSCULOSKELETAL: Extremities without clubbing, cyanosis, or edema. No obvious deformities. LLE w/ pressure ulcer boot. NEUROLOGICAL: Awake, alert and oriented. Left side is weak. PSYCH: Flat affect. Results - Labs CBC & Chem 7: 09/06/17 10:52 09/06/17 10:52 Microbiology 09/02/17 00:30 Blood - Peripheral Aerobic Blood Culture - Final No growth in 5 days 09/02/17 00:30 Blood - Peripheral Anaerobic Blood Culture - Final No growth in 5 days 09/02/17 00:13 Blood - Peripheral Aerobic Blood Culture - Final No growth in 5 days 09/02/17 00:13 Blood - Peripheral Anaerobic Blood Culture - Final No growth in 5 days - Procedures NONE Assessment and Plan - Assessment (1) NSTEMI (non-ST elevated myocardial infarction) Code(s): I21.4 - Non-ST elevation (NSTEMI) myocardial infarction Status: Acute (2) H/O: CVA (cerebrovascular accident) Code(s): Z86.73 - Personal history of transient ischemic attack (TIA), and cerebral infarction without residual deficits Status: Acute (3) HTN (hypertension) Code(s): I10 - Essential (primary) hypertension Status: Acute (4) CHF (congestive heart failure) Code(s): I50.9 - Heart failure, unspecified Status: Acute - Plan 1. NSTEMI: Trop 0.22, abnormal EKG, pt w/ no complaints of chest pain. S/p heparin gtt. Continue ASA, Statin, B-[place]. Consulted cardiology for further evaluation/intervention. Continue medial management. 2. HTN: Improved. Added Norvasc. Additional meds as needed. 3. CVA: h/o CVA w/ residual left-sided weakness, recently at SNF for Rehab, however apparently left AMA and has been living on the streets. PT/OT for eval/ tx. Case Management for placement. 4. CHF: Chronic. Systolic. Echo 05/23 w/ EF 40-45%, no evidence of fluid overload at this time, monitor I/O. 5. DVT Prophylaxis: Heparin Discharge Planning: Awaiting placement
[2017-09-08] MEDS: Heparin - SQ 10,000 UNITS/ML Vial SQ SCH ×2 (08:52→20:10)
[2017-09-08] MEDS: amLODIPine 5 MG Tablet PO SCH (08:52)
[2017-09-08] MEDS: Lisinopril 20 MG Tablet PO SCH (08:52)
[2017-09-08] MEDS: Senna/Docusate Sodium 8.6/50 MG Tablet PO SCH ×2 (08:52→20:10)
[2017-09-08] MEDS: Metoprolol Tartrate 100 MG Tablet PO SCH ×2 (08:52→20:10)
--- NOTE | 2017-09-08 10:15 | P.PN ---
Subjective Interval history: Pt seen and examined for f/u of poor social situation. BPs elevated otherwise vitals stable and he is seen resting comfortably in bed. He endorses chronic, constant pain in his LLE that he attributes to his post-CVA hemiparesis and contracture. No other complaints. He denies CP, SOB, abdominal pain, N/V. Physical Exam Vital signs: Vital Signs 09/07/17 11:44 09/07/17 12:00 09/07/17 14:12 Temperature 97.9 F Pulse Rate 51 L Respiratory Rate 20 18 20 Blood Pressure 130/58 L Pulse Oximetry 95 09/07/17 15:38 09/07/17 16:00 09/07/17 20:00 Temperature 97.6 F 98.4 F Pulse Rate 50 L 52 L Respiratory Rate 20 18 17 Blood Pressure 158/69 H 154/67 H Pulse Oximetry 96 96 09/07/17 20:15 09/07/17 21:00 09/08/17 00:00 Temperature 98.4 F Pulse Rate 54 L 53 L Respiratory Rate 16 17 Blood Pressure Pulse Oximetry 96 09/08/17 01:00 09/08/17 04:00 09/08/17 05:00 Temperature 97.9 F Pulse Rate 50 L 50 L 51 L Respiratory Rate 17 Blood Pressure 162/70 H 165/67 H Pulse Oximetry 96 09/08/17 08:00 Temperature 97.5 F L Pulse Rate 50 L Respiratory Rate 17 Blood Pressure 168/72 H Pulse Oximetry 97 Intake & Output 09/07/17 09/08/17 09/08/17 18:59 06:59 18:59 Intake Total 620 / 620 480 / 480 Output Total 1000 / 1000 400 / 400 Balance -380 / -380 80 / 80 Intake: Oral 620 / 620 480 / 480 Output: Urine 1000 / 1000 400 / 400 Other: Date of Last Bowel Movement 09/07/17 # Bowel Movements 1 Narrative: GENERAL: WN, WD male resting in bed in [facility]. SKIN: Warm and dry. HEART: RRR no m/r/g. LUNGS: CTAB without wheezes or crackles. ABDOMEN: +BS, soft, NT, ND. EXTREMITIES: No LE edema. LUE and LLE with contractures. NEURO: Awake and alert. Results - Labs CBC & Chem 7: 09/06/17 10:52 09/06/17 10:52 Microbiology 09/02/17 00:30 Blood - Peripheral Aerobic Blood Culture - Final No growth in 5 days 09/02/17 00:30 Blood - Peripheral Anaerobic Blood Culture - Final No growth in 5 days 09/02/17 00:13 Blood - Peripheral Aerobic Blood Culture - Final No growth in 5 days 09/02/17 00:13 Blood - Peripheral Anaerobic Blood Culture - Final No growth in 5 days - Procedures NONE Assessment and Plan - Assessment (1) NSTEMI (non-ST elevated myocardial infarction) Code(s): I21.4 - Non-ST elevation (NSTEMI) myocardial infarction Status: Acute (2) H/O: CVA (cerebrovascular accident) Code(s): Z86.73 - Personal history of transient ischemic attack (TIA), and cerebral infarction without residual deficits Status: Acute (3) HTN (hypertension) Code(s): I10 - Essential (primary) hypertension Status: Acute (4) CHF (congestive heart failure) Code(s): I50.9 - Heart failure, unspecified Status: Acute - Plan 57-year-old male with PMH of HTN, HLD, h/o CVA w/ left-sided hemiparesis, COPD, CHF, PVD and chronic LE ulcer was brought to the ER by EMS for c/o dizziness and generalized weakness on 09/02. Per report, patient had been sent to a SNF following CVA for rehab but he subsequently left AMA. Since leaving he had been living on the streets. On arrival, his BP was noted to be 236/113, HR 103, troponin 0.22, and EKG w/ ST-T wave changes. 1. Elevated troponin - Trop 0.22 on admission but compared to prior levels it is actually decreased - Abnormal EKG with inferolateral ST-T wave changes, though unchanged from prior comparisons - No complaints of chest pain - Cardiology consulted and recommend medical management 2. HTN - BPs remain elevated - Lisinopril at max effective dose - Metoprolol already 100 mg BID - Increase Norvasc to 10 mg daily - Continue to monitor 3. CVA - W/ residual left-sided weakness - Recently at SNF for rehab, however apparently left AMA and has been living on the streets. - PT following, rehab vs. SNF - OT following - Case management for placement - Start Gabapentin 100 mg TID for neuropathic pain - Consider adding a muscle relaxer for contractures 4. CHF - Echo 05/23 w/ EF 40-45% - Euvolemic on exam - Continue Lisinopril and metoprolol 5. DVT Prophylaxis: Heparin Code Status: Full Discussed Condition With: The patient Discharge Planning: Medically clear for discharge. Case management assisting with placement
[2017-09-08] MEDS: Gabapentin 100 MG Capsule PO SCH ×2 (13:12→17:22)
[2017-09-09] MEDS: Heparin - SQ 10,000 UNITS/ML Vial SQ SCH ×2 (09:26→20:06)
[2017-09-09] MEDS: Gabapentin 100 MG Capsule PO SCH ×3 (09:27→17:45)
[2017-09-09] MEDS: amLODIPine 10 MG Tablet PO SCH (09:27)
[2017-09-09] MEDS: Metoprolol Tartrate 100 MG Tablet PO SCH ×2 (09:27→20:06)
[2017-09-09] MEDS: Lisinopril 20 MG Tablet PO SCH (09:27)
[2017-09-09] MEDS: Senna/Docusate Sodium 8.6/50 MG Tablet PO SCH ×2 (09:27→20:06)
--- NOTE | 2017-09-09 09:58 | P.PN ---
Subjective Interval history: Pt seen and examined. AFVSS. No acute events overnight. BPs have improved. Still complaining of chronic LLE pain following CVA. Otherwise no complaints and patient resting comfortably in bed. No CP or SOB. Physical Exam Vital signs: Vital Signs 09/08/17 12:00 09/08/17 16:00 09/08/17 20:00 Temperature 97.3 F L 98.1 F 98 F Pulse Rate 53 L 47 L 46 L Respiratory Rate 17 17 16 Blood Pressure 140/63 136/60 137/63 Pulse Oximetry 97 97 96 09/08/17 20:11 09/08/17 23:47 09/09/17 00:00 Temperature 98.1 F Pulse Rate 49 L 42 L Respiratory Rate 20 16 Blood Pressure 122/57 L Pulse Oximetry 96 09/09/17 03:48 09/09/17 04:00 09/09/17 06:21 Temperature 98 F Pulse Rate 49 L 47 L Respiratory Rate 16 20 Blood Pressure 125/59 L Pulse Oximetry 95 09/09/17 08:00 09/09/17 09:27 Temperature 97.4 F L Pulse Rate 54 L 53 L Respiratory Rate 17 Blood Pressure 133/65 Pulse Oximetry 96 Intake & Output 09/08/17 09/09/17 09/09/17 18:59 06:59 18:59 Intake Total 720 / 720 240 / 240 Output Total 560 / 560 700 / 700 Balance 160 / 160 -460 / -460 Weight 47.1 kg Intake: Oral 720 / 720 240 / 240 Output: Urine 560 / 560 700 / 700 Other: Date of Last Bowel Movement 09/07/17 09/08/17 # Bowel Movements 0 Narrative: GENERAL: WN, WD male resting in bed in [place]. SKIN: Warm and dry. HEART: RRR no m/r/g. LUNGS: CTAB without wheezes or crackles. ABDOMEN: +BS, soft, NT, ND. EXTREMITIES: No LE edema. LUE and LLE with contractures, hemiparesis. NEURO: Awake and alert. Results - Labs CBC & Chem 7: 09/06/17 10:52 09/06/17 10:52 - Procedures NONE Assessment and Plan - Assessment (1) NSTEMI (non-ST elevated myocardial infarction) Code(s): I21.4 - Non-ST elevation (NSTEMI) myocardial infarction Status: Acute (2) H/O: CVA (cerebrovascular accident) Code(s): Z86.73 - Personal history of transient ischemic attack (TIA), and cerebral infarction without residual deficits Status: Acute (3) HTN (hypertension) Code(s): I10 - Essential (primary) hypertension Status: Acute (4) CHF (congestive heart failure) Code(s): I50.9 - Heart failure, unspecified Status: Acute - Plan 57-year-old male with PMH of HTN, HLD, h/o CVA w/ left-sided hemiparesis, COPD, CHF, PVD and chronic LE ulcer was brought to the ER by EMS for c/o dizziness and generalized weakness on 09/02. Per report, patient had been sent to a SNF following CVA for rehab but he subsequently left AMA. Since leaving he had been living on the streets. On arrival, his BP was noted to be 236/113, HR 103, troponin 0.22, and EKG w/ ST-T wave changes. 1. Elevated troponin - Trop 0.22 on admission but compared to prior levels it is actually decreased - Abnormal EKG with inferolateral ST-T wave changes, though unchanged from prior comparisons - No complaints of chest pain - Cardiology consulted and recommend medical management 2. HTN - BPs improved following Norvasc increase - continue - Lisinopril at max effective dose - Metoprolol 100 mg BID - Continue to monitor 3. CVA - W/ residual left-sided weakness - Recently at SNF for rehab, however apparently left AMA and has been living on the streets. - PT following, rehab vs. SNF - OT following - Case management for placement - Increase Gabapentin to 200 mg TID for neuropathic pain - Consider adding a muscle relaxer for contractures 4. CHF - Echo 05/23 w/ EF 40-45% - Euvolemic on exam - Continue Lisinopril and metoprolol 5. DVT Prophylaxis: Heparin Discussed Condition With: The patient Discharge Planning: Medically clear for discharge. Case management assisting with placement
[2017-09-10] MEDS: Metoprolol Tartrate 100 MG Tablet PO SCH (08:08)
[2017-09-10] MEDS: Lisinopril 20 MG Tablet PO SCH (08:08)
[2017-09-10] MEDS: amLODIPine 10 MG Tablet PO SCH (08:08)
[2017-09-10] MEDS: Gabapentin 100 MG Capsule PO SCH ×3 (08:08→17:03)
[2017-09-10] MEDS: Heparin - SQ 10,000 UNITS/ML Vial SQ SCH ×2 (08:09→21:34)
[2017-09-10] MEDS: Senna/Docusate Sodium 8.6/50 MG Tablet PO SCH ×2 (08:09→21:34)
--- NOTE | 2017-09-10 12:38 | P.PN ---
Subjective Interval history: Pt seen and examined. AFVSS. No acute events overnight. No complaints. No CP or SOB. Physical Exam Vital signs: Vital Signs 09/09/17 16:00 09/09/17 19:50 09/09/17 20:03 Temperature 97.6 F 97.9 F Pulse Rate 47 L 50 L Respiratory Rate 17 16 18 Blood Pressure 116/55 L 107/55 L Pulse Oximetry 97 94 L 09/09/17 21:41 09/09/17 23:20 09/10/17 00:00 Temperature 98 F Pulse Rate 53 L 50 L Respiratory Rate 18 16 Blood Pressure 110/59 L Pulse Oximetry 95 09/10/17 00:17 09/10/17 04:00 09/10/17 04:01 Temperature 97.7 F Pulse Rate 46 L 52 L 44 L Respiratory Rate 16 Blood Pressure 105/57 L Pulse Oximetry 94 L 09/10/17 08:00 09/10/17 12:00 Temperature 98.0 F 97.3 F L Pulse Rate 57 L 75 Respiratory Rate 18 16 Blood Pressure 124/97 H 119/59 L Pulse Oximetry 97 96 Intake & Output 09/09/17 09/10/17 09/10/17 18:59 06:59 18:59 Intake Total 720 / 720 240 / 240 Output Total 100 / 100 250 / 250 Balance 620 / 620 -10 / -10 Weight 47.6 kg Intake: Oral 720 / 720 240 / 240 Output: Urine 100 / 100 250 / 250 Other: Date of Last Bowel Movement 09/08/17 09/08/17 Narrative: GENERAL: WN, WD male resting in bed in [facility]. SKIN: Warm and dry. HEART: RRR no m/r/g. LUNGS: CTAB without wheezes or crackles. ABDOMEN: +BS, soft, NT, ND. EXTREMITIES: No LE edema. LUE and LLE with contractures, hemiparesis. NEURO: Awake and alert. Results - Labs CBC & Chem 7: 09/06/17 10:52 09/06/17 10:52 - Procedures NONE Assessment and Plan - Assessment (1) NSTEMI (non-ST elevated myocardial infarction) Code(s): I21.4 - Non-ST elevation (NSTEMI) myocardial infarction Status: Acute (2) H/O: CVA (cerebrovascular accident) Code(s): Z86.73 - Personal history of transient ischemic attack (TIA), and cerebral infarction without residual deficits Status: Acute (3) HTN (hypertension) Code(s): I10 - Essential (primary) hypertension Status: Acute (4) CHF (congestive heart failure) Code(s): I50.9 - Heart failure, unspecified Status: Acute - Plan 57-year-old male with PMH of HTN, HLD, h/o CVA w/ left-sided hemiparesis, COPD, CHF, PVD and chronic LE ulcer was brought to the ER by EMS for c/o dizziness and generalized weakness on 09/02. Per report, patient had been sent to a SNF following CVA for rehab but he subsequently left AMA. Since leaving he had been living on the streets. On arrival, his BP was noted to be 236/113, HR 103, troponin 0.22, and EKG w/ ST-T wave changes. 1. Elevated troponin - Trop 0.22 on admission but compared to prior levels it is actually decreased - Abnormal EKG with inferolateral ST-T wave changes, though unchanged from prior comparisons - No complaints of chest pain - Cardiology consulted and recommend medical management 2. HTN - BPs improved following Norvasc increase - Lisinopril at max effective dose - Decrease Metoprolol to 50 mg BID given bradycardia - Continue to monitor 3. CVA - W/ residual left-sided weakness - Recently at SNF for rehab, however apparently left AMA and has been living on the streets. - PT following, rehab vs. SNF - OT following - Case management for placement - Continue Gabapentin 200 mg TID for neuropathic pain - Consider adding a muscle relaxer for contractures 4. CHF - Echo 05/23 w/ EF 40-45% - Euvolemic on exam - Continue Lisinopril and metoprolol 5. DVT Prophylaxis: Heparin Discussed Condition With: The patient, case management, marketing traffic coordinator Planning: Medically clear for discharge. Case management assisting with placement
[2017-09-10] MEDS ORDERED: Metoprolol Tartrate 50 MG Tablet PO SCH (21:00)
[2017-09-11] MEDS: amLODIPine 10 MG Tablet PO SCH (08:33)
[2017-09-11] MEDS: Senna/Docusate Sodium 8.6/50 MG Tablet PO SCH ×2 (08:33→21:35)
[2017-09-11] MEDS: Lisinopril 20 MG Tablet PO SCH (08:33)
[2017-09-11] MEDS: Heparin - SQ 10,000 UNITS/ML Vial SQ SCH ×2 (08:33→21:35)
[2017-09-11] MEDS: Gabapentin 100 MG Capsule PO SCH ×3 (08:33→17:55)
[2017-09-11] MEDS: Metoprolol Tartrate 25 MG Tablet PO SCH ×2 (08:34→23:25)
--- NOTE | 2017-09-11 10:57 | P.PN ---
Subjective Interval history: Pt seen and examined. Case management working on placement to SNF. Pt continues to have some neuropathic and post-CVA pain in his LLE. LLE always contracted. States he has tried a muscle relaxer in the past which helped. No other complaints. No CP or SOB. Physical Exam Vital signs: Vital Signs 09/10/17 12:00 09/10/17 16:00 09/10/17 19:00 Temperature 97.3 F L 97.5 F L Pulse Rate 75 49 L 53 L Respiratory Rate 16 16 Blood Pressure 119/59 L 108/81 Pulse Oximetry 96 98 09/10/17 20:00 09/11/17 00:00 09/11/17 04:00 Temperature 97.7 F 98 F Pulse Rate 61 53 L 51 L Respiratory Rate 18 18 Blood Pressure 128/59 L 137/60 Pulse Oximetry 94 L 97 09/11/17 08:00 Temperature 97.4 F L Pulse Rate 50 L Respiratory Rate 16 Blood Pressure 141/64 H Pulse Oximetry 97 Intake & Output 09/10/17 09/11/17 09/11/17 18:59 06:59 18:59 Intake Total 800 / 800 Output Total 600 / 600 500 / 500 Balance 200 / 200 -500 / -500 Intake: Oral 800 / 800 Output: Urine 600 / 600 500 / 500 Other: Date of Last Bowel Movement 09/08/17 09/10/17 # Bowel Movements 4 Narrative: GENERAL: WN, WD male resting in bed in [facility]. SKIN: Warm and dry. HEART: RRR no m/r/g. LUNGS: CTAB without wheezes or crackles. ABDOMEN: +BS, soft, NT, ND. EXTREMITIES: No LE edema. LUE and LLE with contractures, hemiparesis. NEURO: Awake and alert. Results - Labs CBC & Chem 7: 09/06/17 10:52 09/06/17 10:52 - Procedures NONE Assessment and Plan - Assessment (1) NSTEMI (non-ST elevated myocardial infarction) Code(s): I21.4 - Non-ST elevation (NSTEMI) myocardial infarction Status: Acute (2) H/O: CVA (cerebrovascular accident) Code(s): Z86.73 - Personal history of transient ischemic attack (TIA), and cerebral infarction without residual deficits Status: Acute (3) HTN (hypertension) Code(s): I10 - Essential (primary) hypertension Status: Acute (4) CHF (congestive heart failure) Code(s): I50.9 - Heart failure, unspecified Status: Acute - Plan 57-year-old male with PMH of HTN, HLD, h/o CVA w/ left-sided hemiparesis, COPD, CHF, PVD and chronic LE ulcer was brought to the ER by EMS for c/o dizziness and generalized weakness on 09/02. Per report, patient had been sent to a SNF following CVA for rehab but he subsequently left AMA. Since leaving he had been living on the streets. On arrival, his BP was noted to be 236/113, HR 103, troponin 0.22, and EKG w/ ST-T wave changes. 1. Elevated troponin - Trop 0.22 on admission but compared to prior levels it is actually decreased - Abnormal EKG with inferolateral ST-T wave changes, though unchanged from prior comparisons - No complaints of chest pain - Cardiology consulted and recommend medical management 2. HTN - BPs improved following Norvasc increase - Lisinopril at max effective dose - Decrease Metoprolol to 12.5 mg BID given bradycardia - Continue to monitor 3. CVA - W/ residual left-sided weakness - Recently at SNF for rehab, however apparently left AMA and has been living on the streets. - PT following, rehab vs. SNF - OT following - Case management for placement - Continue Gabapentin 200 mg TID for neuropathic pain - Add Baclofen for contractures 4. CHF - Echo 05/23 w/ EF 40-45% - Euvolemic on exam - Continue Lisinopril and metoprolol 5. DVT Prophylaxis: Heparin Discussed Condition With: Patient Discharge Planning: Medically clear for discharge. Case management assisting with placement
--- NOTE | 2017-09-11 17:22 | P.DIET ---
Nutritional Evaluation Type of nutrition evaluation: follow-up Nutrition screening: Weight Loss > 10 lbs Subjective Subjective Comments: Pt visited; food preferences taken. "My appetite is good". Pt says he is drinking the Ensure and eating the Ensure Pudding. Objective - Diagnosis NSTEMI, Dizziness c/o CVA, L Heel Pressure Ulcer - Objective % IBW: 62 (IGG=804#) Body Weight Used for Calculations: IBW (75.5kg) Energy Needs - Lower Range (kCal/kg): 25 Energy Needs - Upper Range (kCal/kg): 30 Lower Limit kCal/kg (kCals): 1,888 Upper Limit kCal/kg (kCals): 2,265 Lower Limit Protein Factor (Grams per Kg): 1.1 Upper Limit Protein Factor (Grams per Kg): 1.3 Lower Protein Needs (Protein): 83 Upper Protein Needs (Protein): 98 Dietitian Reviewed in Medical Record: Current diet, Curent medications, Intake & Output, Labs, Medical history, Wound/DTI Diet Order: Heart Healthy Oral Diet Intake Amount: Good 75-90% Wound Care Note: 09/03: L heel pressure injury, no staging Objective Comments: PMH: Seizure, Stroke, HTN, Hyperlipidema, COPD, PVD, Chronic left heel wound, homeless +4BM, +UOP 1100ml Feeding - Current PO Supplement Current Supplement: Ensure Enlive Current Frequency of Supplement: Three times a day Current kCals Provided by Supplement: 350 Current Protein Provided by Supplement: 20 Supplement Comments: Plus Ensure Pudding TID(= 170 kcal and 4g protein per serving) Assessment Assessment: Pt continues to be at nutritional risk r/t recent wt loss, low BMI 15.1 and increased needs for wound healing.Pt tolerating diet w/Adequate po intake 50% or greater for meals. [place] food preferences. Continue Enlive TID. Continue Ensure Pudding TID. Wt changes noted. Dietitian following. Recommendations: 1.[place] food preferences 2.Continue Enlive TID 3.Continue Ensure Pudding TID 4.Dietitian following Dietitian to Monitor: Lab values, Supplement acceptance, Intake & Output, Diet tolerance, Weight change, PO Intake, Wound/skin status, Medical course
[2017-09-12] MEDS: amLODIPine 10 MG Tablet PO SCH (08:35)
[2017-09-12] MEDS: Senna/Docusate Sodium 8.6/50 MG Tablet PO SCH ×3 (08:36→20:02)
[2017-09-12] MEDS: Lisinopril 20 MG Tablet PO SCH (08:36)
[2017-09-12] MEDS: Metoprolol Tartrate 25 MG Tablet PO SCH ×3 (08:36→20:02)
[2017-09-12] MEDS: Gabapentin 100 MG Capsule PO SCH (08:37)
[2017-09-12] MEDS: Heparin - SQ 10,000 UNITS/ML Vial SQ SCH ×3 (08:38→20:02)
--- NOTE | 2017-09-12 09:26 | P.PNIM ---
Subjective Interval history: Patient complained of left ankle pain along with left buttocks discomfort. Also complains of left leg spasms and muscle cramps. Physical Exam Vital signs: Vital Signs 09/11/17 12:00 09/11/17 16:00 09/11/17 20:00 Temperature 97.8 F 97.8 F 97.5 F L Pulse Rate 49 L 56 L 52 L Respiratory Rate 16 16 18 Blood Pressure 142/66 H 123/57 L 118/56 L Pulse Oximetry 98 98 94 L 09/12/17 00:00 09/12/17 04:00 Temperature 98.1 F 98.4 F Pulse Rate 53 L 60 Respiratory Rate 16 16 Blood Pressure 142/65 H 132/53 L Pulse Oximetry 98 96 Intake & Output 09/11/17 09/12/17 09/12/17 18:59 06:59 18:59 Intake Total 700 / 700 Output Total 850 / 850 200 / 200 Balance -150 / -150 -200 / -200 Intake: Oral 700 / 700 Output: Urine 850 / 850 200 / 200 Other: Date of Last Bowel Movement 09/10/17 # Bowel Movements 0 Narrative: GENERAL: WN, WD male resting in bed in NAD. SKIN: Warm and dry. HEART: Regular rate and rhythm LUNGS: Clear to auscultation bilaterally ABDOMEN: +BS, soft, NT, ND. EXTREMITIES: No LE edema. LUE and LLE with contractures, hemiparesis. Left ankle bandage clean dry intact NEURO: Awake and alert. Results - Labs CBC & Chem 7: 09/06/17 10:52 09/06/17 10:52 - Procedures NONE Assessment and Plan - Assessment (1) NSTEMI (non-ST elevated myocardial infarction) Code(s): I21.4 - Non-ST elevation (NSTEMI) myocardial infarction Status: Acute (2) H/O: CVA (cerebrovascular accident) Code(s): Z86.73 - Personal history of transient ischemic attack (TIA), and cerebral infarction without residual deficits Status: Acute (3) HTN (hypertension) Code(s): I10 - Essential (primary) hypertension Status: Acute (4) CHF (congestive heart failure) Code(s): I50.9 - Heart failure, unspecified Status: Acute - Plan 57-year-old male with PMH of HTN, HLD, h/o CVA w/ left-sided hemiparesis, COPD, CHF, PVD and chronic LE ulcer was brought to the ER by EMS for c/o dizziness and generalized weakness on 09/02. Per report, patient had been sent to a SNF following CVA for rehab but he subsequently left AMA. Since leaving he had been living on the streets. On arrival, his BP was noted to be 236/113, HR 103, troponin 0.22, and EKG w/ ST-T wave changes. 1. Elevated troponin - Trop 0.22 on admission but compared to prior levels it is actually decreased - Abnormal EKG with inferolateral ST-T wave changes, though unchanged from prior comparisons - No complaints of chest pain - Cardiology consulted and recommend medical management 2. HTN, chronic essential with presenting hypertensive urgency with blood pressure 236/113 - BPs improved following Norvasc increase - Lisinopril at max effective dose - Decrease Metoprolol to 12.5 mg BID given bradycardia - Continue to monitor 3. CVA, chronic ischemic - W/ residual left-sided weakness - Recently at SNF for rehab, however apparently left AMA and has been living on the streets. - PT following, rehab vs. SNF - OT following - Case management for placement - Continue Gabapentin 200 mg TID for neuropathic pain and consideration of increase to 300 mg 3 times daily - Add baclofen for contractures, Flexeril as needed for spasms. 4. CHF, chronic systolic compensated - Echo 05/23 w/ EF 40-45% - Euvolemic on exam - Continue Lisinopril and metoprolol 5. DVT Prophylaxis: Heparin Discharge Planning: Case management assisting with placement, patient is medically stable.
--- NOTE | 2017-09-12 11:09 | P.DS ---
Date of admission: 09/02/17 03:08 Primary care physician: Moreno Clark MD Anticipated date of discharge: 09/12/17 Brief History from admission: This is a 57-year-old male with PMH of HTN, Hyperlipidemia, H/o CVA w/ Left- Sided Hemiparesis, COPD, CHF (Echo 05/23 w/ EF 40-45%), PVD and Chronic LE Ulcer who was brought to the ER by EMS for c/o dizziness and generalized weakness. Per report, pt had been sent to SNF following CVA for Rehab, pt apparently wasn' t happy with the Rehab and LEFT AMA, however has been living on the streets since he had nowhere to go. Denies fever, chills, nausea, vomiting or diarrhea. Per EMS, pt noted to have abnormal EKG, however pt w/ no complaints of chest pain. On arrival, BP 236/113, HR 103, O2 sat 98% on RA, Afebrile. CBC unremarkable. INR 1.1. Troponin 0.22, EKG w/ ST-T wave changes. S/p Morphine/NTG in ER and currently on Heparin gtt DS: Diagnosis - Discharge Diagnosis (1) Hypertensive urgency, malignant Status: Resolved Diagnosis: Principal (2) NSTEMI (non-ST elevated myocardial infarction) Status: Resolved Diagnosis: Principal (3) H/O: CVA (cerebrovascular accident) Status: Chronic Diagnosis: Secondary (4) HTN (hypertension) Status: Chronic Diagnosis: Secondary (5) CHF (congestive heart failure) Status: Chronic Diagnosis: Secondary DS: Medications - Discharge Medications Prescriptions: amlodipine [Norvasc] 10 mg PO DAILY #30 tab aspirin 81 mg PO DAILY #30 tab gabapentin 200 mg PO TID #180 cap hydrocodone-acetaminophen 1 tab PO Q4H PRN #28 tab PRN Reason: Acute Pain lisinopril 40 mg PO DAILY #30 tab metoprolol tartrate 50 mg PO BID #60 tab pravastatin 40 mg PO DAILY #30 tab DS: Summary Hospital Course: These are the medical issues addressed during this hospitalization: 57-year-old male with PMH of HTN, HLD, h/o CVA w/ left-sided hemiparesis, COPD, CHF, PVD and chronic LE ulcer was brought to the ER by EMS for c/o dizziness and generalized weakness on 09/02. Per report, patient had been sent to a SNF following CVA for rehab but he subsequently left AMA. Since leaving he had been living on the streets. On arrival, his BP was noted to be 236/113, HR 103, troponin 0.22, and EKG w/ ST-T wave changes. 1. Elevated troponin with presenting hypertensive urgency, malignant - Trop 0.22 on admission but compared to prior levels it is actually decreased - Abnormal EKG with inferolateral ST-T wave changes, though unchanged from prior comparisons - No complaints of chest pain - Cardiology consulted and recommend medical management 2. HTN, chronic essential with presenting hypertensive urgency - BPs improved following Norvasc increase - Lisinopril at max effective dose - Decrease Metoprolol to 12.5 mg BID given bradycardia - Continue to monitor 3. CVA, chronic ischemia - W/ residual left-sided weakness - Recently at SNF for rehab, however apparently left AMA and has been living on the streets. - PT following, rehab vs. SNF - OT following - Case management for placement - Continue Gabapentin 200 mg TID for neuropathic pain - Add Baclofen for contractures 4. CHF, chronic systolic - Echo 05/23 w/ EF 40-45% - Euvolemic on exam - Continue Lisinopril and metoprolol 5. DVT Prophylaxis: Heparin At this time, patient has gained maximum benefit from hospitalization is ready to be discharged to group home. [employer] Prescription Drug Monitoring Database has been queried and verified prior to prescribing the controlled subsection. Patient is having significant pain caused by [his chronic CVA and contractures ] which will last more than 3 days. Trial of alternative treatment options other than prescribed opioids has not helped. I believe that it is medically necessary to treat the patient s pain because it is affecting patients ability to sleep and perform activities of daily living. - Time Spent with Patient Total time spent providing and/or coordinating discharge services: Less than 30 minutes - Quality: VTE Deep Vein Thrombosis/Pulmonary Embolism Present on Admission: No Exam Vital signs: Vital Signs 09/11/17 12:00 09/11/17 16:00 09/11/17 20:00 Temperature 97.8 F 97.8 F 97.5 F L Pulse Rate 49 L 56 L 52 L Respiratory Rate 16 16 18 Blood Pressure 142/66 H 123/57 L 118/56 L Pulse Oximetry 98 98 94 L 09/12/17 00:00 09/12/17 04:00 09/12/17 08:00 Temperature 98.1 F 98.4 F 97.7 F Pulse Rate 53 L 60 58 L Respiratory Rate 16 16 14 Blood Pressure 142/65 H 132/53 L 137/62 Pulse Oximetry 98 96 98 Intake & Output 09/11/17 09/12/17 09/12/17 18:59 06:59 18:59 Intake Total 700 / 700 Output Total 850 / 850 200 / 200 Balance -150 / -150 -200 / -200 Intake: Oral 700 / 700 Output: Urine 850 / 850 200 / 200 Other: Date of Last Bowel Movement 09/10/17 # Bowel Movements 0 Results Procedures completed during hospitalization: NONE - Impressions ITS Impressions Head CT 09/02/17 00:05 CONCLUSION: 1. Remote right frontoparietal infarct. 2. Moderate cerebral atrophy out of proportion to age. 3. No acute intracranial abnormality. . Discharge Plan - Discharge Disposition Patient Disposition: Discharge to SNF - Discharge Condition Condition: Stable - Discharge Order Discharge Orders: Discharge Order (Routine); Ordered 09/10/17 Ordered By: Kylie Boyd - Discharge Details Anticipated Discharge Date: 09/10/17 - Physicians Team Primary Care Provider: Moreno Clark Attending Provider: Angela Edmonds Other Providers: Gio Nuno MD ; [facility] ; [facility] ; [facility]
[2017-09-12] MEDS: Gabapentin 300 MG Capsule PO SCH ×2 (12:18→17:09)
[2017-09-13] MEDS: Lisinopril 20 MG Tablet PO SCH (08:22)
[2017-09-13] MEDS: Heparin - SQ 10,000 UNITS/ML Vial SQ SCH ×2 (08:23→21:33)
[2017-09-13] MEDS: Metoprolol Tartrate 25 MG Tablet PO SCH ×2 (08:24→21:33)
[2017-09-13] MEDS: Gabapentin 300 MG Capsule PO SCH ×3 (08:24→17:39)
[2017-09-13] MEDS: amLODIPine 10 MG Tablet PO SCH (08:24)
[2017-09-13] MEDS: Senna/Docusate Sodium 8.6/50 MG Tablet PO SCH ×2 (08:25→21:33)
--- NOTE | 2017-09-13 12:15 | P.PNIM ---
Subjective Interval history: Patient is awaiting placement with rehab. Patient denies any new issues no pain or sob. Physical Exam Vital signs: Vital Signs 09/12/17 20:00 09/12/17 20:32 09/13/17 00:00 Temperature 98.1 F 98.3 F Pulse Rate 62 60 61 Respiratory Rate 17 17 Blood Pressure 122/55 L 142/62 H Pulse Oximetry 98 96 09/13/17 04:22 Temperature 98.3 F Pulse Rate 66 Respiratory Rate 17 Blood Pressure 141/69 H Pulse Oximetry 98 Intake & Output 09/12/17 09/13/17 09/13/17 18:59 06:59 18:59 Intake Total 680 / 680 Output Total 700 / 700 Balance -20 / -20 Weight 48 kg Intake: Oral 680 / 680 Output: Urine 700 / 700 Narrative: GENERAL: WN, WD male resting in bed in NAD. SKIN: Warm and dry. HEART: Regular rate and rhythm LUNGS: Clear to auscultation bilaterally ABDOMEN: +BS, soft, NT, ND. EXTREMITIES: No LE edema. LUE and LLE with contractures, hemiparesis. Left ankle bandage clean dry intact NEURO: Awake and alert. Results - Labs CBC & Chem 7: 09/06/17 10:52 09/06/17 10:52 - Procedures NONE Assessment and Plan - Assessment (1) Hypertensive urgency, malignant Code(s): I16.0 - Hypertensive urgency Status: Resolved (2) NSTEMI (non-ST elevated myocardial infarction) Code(s): I21.4 - Non-ST elevation (NSTEMI) myocardial infarction Status: Resolved (3) H/O: CVA (cerebrovascular accident) Code(s): Z86.73 - Personal history of transient ischemic attack (TIA), and cerebral infarction without residual deficits Status: Chronic (4) HTN (hypertension) Code(s): I10 - Essential (primary) hypertension Status: Chronic (5) CHF (congestive heart failure) Code(s): I50.9 - Heart failure, unspecified Status: Chronic - Plan 57-year-old male with PMH of HTN, HLD, h/o CVA w/ left-sided hemiparesis, COPD, CHF, PVD and chronic LE ulcer was brought to the ER by EMS for c/o dizziness and generalized weakness on 09/02. Per report, patient had been sent to a SNF following CVA for rehab but he subsequently left AMA. Since leaving he had been living on the streets. On arrival, his BP was noted to be 236/113, HR 103, troponin 0.22, and EKG w/ ST-T wave changes. Elevated troponin - Trop 0.22 on admission but compared to prior levels it is actually decreased - Abnormal EKG with inferolateral ST-T wave changes, though unchanged from prior comparisons - No complaints of chest pain - Cardiology consulted and recommend medical management HTN, chronic essential with presenting hypertensive urgency with blood pressure 236/113 - BPs improved following Norvasc increase - Lisinopril at max effective dose -Cont Metoprolol to 12.5 mg BID given bradycardia - Continue to monitor CVA, chronic ischemic - W/ residual left-sided weakness - Recently at SNF for rehab, however apparently left AMA and has been living on the streets. - PT following, rehab vs. SNF - OT following - Case management for placement, awaiting placement at [facility] and rehab - Continue Gabapentin at 300 mg 3 times daily - Cont baclofen for contractures, Flexeril as needed for spasms. 4. CHF, chronic systolic compensated - Echo 05/23 w/ EF 40-45% - Euvolemic on exam - Continue Lisinopril and metoprolol 5. DVT Prophylaxis: Heparin Discussed Condition With: Patient Discharge Planning: Awaiting placement, cleared when set up
[2017-09-14] MEDS: Gabapentin 300 MG Capsule PO SCH ×3 (07:59→17:26)
[2017-09-14] MEDS: Metoprolol Tartrate 25 MG Tablet PO SCH ×2 (07:59→21:00)
[2017-09-14] MEDS: Heparin - SQ 10,000 UNITS/ML Vial SQ SCH ×2 (07:59→20:58)
[2017-09-14] MEDS: Lisinopril 20 MG Tablet PO SCH (08:00)
[2017-09-14] MEDS: Senna/Docusate Sodium 8.6/50 MG Tablet PO SCH ×2 (08:00→20:59)
[2017-09-14] MEDS: amLODIPine 10 MG Tablet PO SCH (08:00)
--- NOTE | 2017-09-14 14:20 | P.PN ---
Subjective Interval history: Follow up: elevated troponin, HTN, hx of CVA and CHF Patient offers no new concerns/complaints Physical Exam Vital signs: Vital Signs 09/13/17 16:00 09/13/17 20:00 09/13/17 20:10 Temperature 97.5 F L 96.9 F L Pulse Rate 58 L 92 H 60 Respiratory Rate 16 17 Blood Pressure 123/60 116/60 Pulse Oximetry 98 97 09/14/17 00:04 09/14/17 04:09 09/14/17 08:00 Temperature 96.4 F L 97.5 F L 97.2 F L Pulse Rate 52 L 58 L 53 L Respiratory Rate 16 16 17 Blood Pressure 137/65 166/79 H 95/53 L Pulse Oximetry 98 96 94 L 09/14/17 12:00 Temperature 97.4 F L Pulse Rate 55 L Respiratory Rate 14 Blood Pressure 116/56 L Pulse Oximetry 96 Intake & Output 09/13/17 09/14/17 09/14/17 18:59 06:59 18:59 Intake Total 800 / 800 580 / 580 Output Total 600 / 600 680 / 680 Balance 200 / 200 -100 / -100 Weight 48 kg Intake: Oral 800 / 800 580 / 580 Output: Urine 600 / 600 680 / 680 Other: Date of Last Bowel Movement 09/14/17 Narrative: GENERAL: 57 year old male resting in bed in [facility]. SKIN: Warm and dry. HEART: Regular rate and rhythm LUNGS: Clear to auscultation bilaterally ABDOMEN: +BS, soft, NT, ND. EXTREMITIES: No LE edema. LUE and LLE with contractures, hemiparesis. Left ankle bandage clean dry intact NEURO: Awake and alert. Results - Labs CBC & Chem 7: 09/06/17 10:52 09/06/17 10:52 - Procedures NONE Assessment and Plan - Plan 57-year-old male with PMH of HTN, HLD, h/o CVA w/ left-sided hemiparesis, COPD, CHF, PVD and chronic LE ulcer was brought to the ER by EMS for c/o dizziness and generalized weakness on 09/02. Per report, patient had been sent to a SNF following CVA for rehab but he subsequently left AMA. Since leaving he had been living on the streets. On arrival, his BP was noted to be 236/113, HR 103, troponin 0.22, and EKG w/ ST-T wave changes. Elevated troponin - Trop 0.22 on admission but compared to prior levels it is actually decreased - Abnormal EKG with inferolateral ST-T wave changes, though unchanged from prior comparisons - No complaints of chest pain - Cardiology consulted and recommend medical management HTN, chronic essential with presenting hypertensive urgency with blood pressure 236/113 - BPs improved following Norvasc increase - Lisinopril at max effective dose -Cont Metoprolol to 12.5 mg BID given bradycardia - Continue to monitor CVA, chronic ischemic - W/ residual left-sided weakness - Recently at SNF for rehab, however apparently left AMA and has been living on the streets. - PT following, rehab vs. SNF - OT following - Case management for placement, awaiting placement at [facility] and rehab - Continue Gabapentin at 300 mg 3 times daily - Cont baclofen for contractures, Flexeril as needed for spasms. 4. CHF, chronic systolic compensated - Echo 05/23 w/ EF 40-45% - Euvolemic on exam - Continue Lisinopril and metoprolol 5. DVT Prophylaxis: Heparin Discussed Condition With: Patient and supervising physician Dr. Estevez Discharge Planning: Awaiting placement, plan to DC once arrangements are made
[2017-09-15] MEDS: Senna/Docusate Sodium 8.6/50 MG Tablet PO SCH ×2 (08:58→21:16)
[2017-09-15] MEDS: Lisinopril 20 MG Tablet PO SCH (08:58)
[2017-09-15] MEDS: amLODIPine 10 MG Tablet PO SCH (08:59)
[2017-09-15] MEDS: Heparin - SQ 10,000 UNITS/ML Vial SQ SCH ×2 (08:59→21:17)
[2017-09-15] MEDS: Metoprolol Tartrate 25 MG Tablet PO SCH ×2 (08:59→21:16)
[2017-09-15] MEDS: Gabapentin 300 MG Capsule PO SCH ×3 (08:59→17:29)
--- NOTE | 2017-09-15 11:07 | P.PNIM ---
Subjective Interval history: The patient was resting comfortably in bed. He had no acute complaints. He said he was taking his pain medications and medications for muscle spasms. He was wondering if we found a place for him to go to yet. He says he has not had a bowel movement in a couple of days but he is taking stool softeners. Physical Exam Vital signs: Vital Signs 09/14/17 12:00 09/14/17 16:00 09/14/17 20:00 Temperature 97.4 F L 98.4 F 97.5 F L Pulse Rate 55 L 62 71 Respiratory Rate 14 14 16 Blood Pressure 116/56 L 142/66 H 122/56 L Pulse Oximetry 96 98 93 L 09/14/17 20:59 09/15/17 00:00 09/15/17 02:51 Temperature 98.1 F Pulse Rate 61 Respiratory Rate 18 16 18 Blood Pressure 125/59 L Pulse Oximetry 95 09/15/17 03:58 09/15/17 04:00 09/15/17 08:00 Temperature 97.8 F 97.8 F Pulse Rate 65 65 76 Respiratory Rate 16 18 Blood Pressure 120/55 L 147/94 H Pulse Oximetry 92 L 98 Intake & Output 09/14/17 09/15/17 09/15/17 18:59 06:59 18:59 Intake Total 1200 / 1200 240 / 240 Output Total 300 / 300 1500 / 1500 Balance 900 / 900 -1260 / -1260 Weight 49.1 kg Intake: Oral 1200 / 1200 240 / 240 Output: Urine 300 / 300 1500 / 1500 Other: Date of Last Bowel Movement 09/14/17 09/14/17 Narrative: GENERAL: Resting in bed in NAD. SKIN: Warm and dry. HEART: Regular rate and rhythm LUNGS: Clear to auscultation bilaterally ABDOMEN: +BS, soft, NT, ND. EXTREMITIES: No LE edema. LUE and LLE with contractures, hemiparesis. Left ankle bandage clean dry intact NEURO: Awake and alert. Results - Labs CBC & Chem 7: 09/06/17 10:52 09/06/17 10:52 - Procedures NONE Assessment and Plan - Plan 57-year-old male with PMH of HTN, HLD, h/o CVA w/ left-sided hemiparesis, COPD , CHF, PVD and chronic LE ulcer was brought to the ER by EMS for c/o dizziness and generalized weakness on 09/02. Per report, patient had been sent to a SNF following CVA for rehab but he subsequently left AMA. Since leaving he had been living on the streets. On arrival, his BP was noted to be 236/113, HR 103, troponin 0.22, and EKG w/ ST-T wave changes. Elevated troponin - Trop 0.22 on admission but compared to prior levels it is actually decreased - Abnormal EKG with inferolateral ST-T wave changes, though unchanged from prior comparisons - No complaints of chest pain - Cardiology consulted and recommend medical management HTN, chronic essential with presenting hypertensive urgency with blood pressure 236/113 - BPs improved following Norvasc, lisinopril and metoprolol. - Continue to monitor CVA, chronic ischemic - W/ residual left-sided weakness - Recently at SNF for rehab, however apparently left AMA and has been living on the streets. - PT/ OT following, rehab vs. SNF - Case management for placement, awaiting placement at [facility] and rehab - Continue Gabapentin at 300 mg 3 times daily - Cont baclofen for contractures, Flexeril as needed for spasms. CHF, chronic systolic compensated - Echo 05/23 w/ EF 40-45% - Euvolemic on exam - Continue cardiac regimen DVT Prophylaxis: Heparin Discharge Planning: Awaiting placement
[2017-09-16] MEDS: amLODIPine 10 MG Tablet PO SCH (08:52)
[2017-09-16] MEDS: Gabapentin 300 MG Capsule PO SCH ×3 (08:52→19:57)
[2017-09-16] MEDS: Heparin - SQ 10,000 UNITS/ML Vial SQ SCH ×2 (08:52→20:00)
[2017-09-16] MEDS: Lisinopril 20 MG Tablet PO SCH (08:52)
[2017-09-16] MEDS: Metoprolol Tartrate 25 MG Tablet PO SCH ×2 (08:52→19:59)
[2017-09-16] MEDS: Senna/Docusate Sodium 8.6/50 MG Tablet PO SCH ×2 (08:52→20:00)
--- NOTE | 2017-09-16 13:52 | P.PNIM ---
Subjective Interval history: The patient asked for assistance locating his fork so that he could eat his lunch. He had no acute complaints. Physical Exam Vital signs: Vital Signs 09/15/17 16:00 09/15/17 20:00 09/15/17 21:17 Temperature 98.0 F 98.5 F Pulse Rate 68 78 Respiratory Rate 14 20 16 Blood Pressure 139/65 125/60 Pulse Oximetry 98 90 L 09/16/17 00:00 09/16/17 04:00 09/16/17 04:21 Temperature 98.1 F 97.7 F Pulse Rate 73 80 Respiratory Rate 20 20 16 Blood Pressure 145/63 H 134/66 Pulse Oximetry 93 L 100 09/16/17 08:00 09/16/17 12:00 Temperature 98.3 F 98.9 F Pulse Rate 90 80 Respiratory Rate 18 16 Blood Pressure 104/76 106/78 Pulse Oximetry 96 96 Intake & Output 09/15/17 09/16/17 09/16/17 18:59 06:59 18:59 Intake Total 1200 / 1200 240 / 240 Output Total 600 / 600 700 / 700 Balance 600 / 600 -460 / -460 Intake: Oral 1200 / 1200 240 / 240 Output: Urine 600 / 600 700 / 700 Other: Date of Last Bowel Movement 09/14/17 09/14/17 09/14/17 Narrative: GENERAL: Resting in bed in NAD. SKIN: Warm and dry. HEART: Regular rate and rhythm LUNGS: Clear to auscultation bilaterally ABDOMEN: +BS, soft, NT, ND. EXTREMITIES: No LE edema. LUE and LLE with contractures, hemiparesis. Left ankle bandage clean dry intact NEURO: Awake and alert. Results - Labs CBC & Chem 7: 09/06/17 10:52 09/06/17 10:52 - Procedures NONE Assessment and Plan - Plan 57-year-old male with PMH of HTN, HLD, h/o CVA w/ left-sided hemiparesis, COPD , CHF, PVD and chronic LE ulcer was brought to the ER by EMS for c/o dizziness and generalized weakness on 09/02. Per report, patient had been sent to a SNF following CVA for rehab but he subsequently left AMA. Since leaving he had been living on the streets. On arrival, his BP was noted to be 236/113, HR 103, troponin 0.22, and EKG w/ ST-T wave changes. Elevated troponin - Trop 0.22 on admission but compared to prior levels it is actually decreased - Abnormal EKG with inferolateral ST-T wave changes, though unchanged from prior comparisons - No complaints of chest pain - Cardiology consulted and recommend medical management HTN, chronic essential with presenting hypertensive urgency with blood pressure 236/113 - BPs now normal on Norvasc, lisinopril and metoprolol. CVA, chronic ischemic - W/ residual left-sided weakness - Recently at SNF for rehab, however apparently left AMA and has been living on the streets. - PT/ OT following, rehab vs. SNF. - Case management for placement, awaiting placement. Hopefully will hear something on Sunday. - Continue Gabapentin at 300 mg 3 times daily - Cont baclofen for contractures, Flexeril as needed for spasms. CHF, chronic systolic compensated - Echo 05/23 w/ EF 40-45% - Euvolemic on exam - Continue cardiac regimen DVT Prophylaxis: Heparin Discharge Planning: Awaiting placement
[2017-09-17] MEDS: Senna/Docusate Sodium 8.6/50 MG Tablet PO SCH ×2 (09:05→20:44)
[2017-09-17] MEDS: Gabapentin 300 MG Capsule PO SCH ×3 (09:05→16:59)
[2017-09-17] MEDS: Heparin - SQ 10,000 UNITS/ML Vial SQ SCH ×2 (09:05→20:43)
[2017-09-17] MEDS: amLODIPine 10 MG Tablet PO SCH (09:12)
[2017-09-17] MEDS: Lisinopril 20 MG Tablet PO SCH (09:12)
[2017-09-17] MEDS: Metoprolol Tartrate 25 MG Tablet PO SCH ×2 (09:12→20:44)
--- NOTE | 2017-09-17 11:57 | P.PNIM ---
Subjective Interval history: The patient was having pain in his left foot. He says he has cramps frequently. He says he is on a muscle relaxer. He had no other acute complaints. Physical Exam Vital signs: Vital Signs 09/16/17 12:00 09/16/17 16:00 09/16/17 19:56 Temperature 98.9 F 97.8 F Pulse Rate 80 88 Respiratory Rate 16 16 18 Blood Pressure 106/78 108/62 Pulse Oximetry 96 98 09/16/17 20:00 09/17/17 00:00 09/17/17 04:00 Temperature 98 F 98.1 F 97.9 F Pulse Rate 96 H 69 73 Respiratory Rate 20 20 16 Blood Pressure 133/69 114/61 100/55 L Pulse Oximetry 95 95 96 09/17/17 06:57 09/17/17 08:00 Temperature 97.6 F Pulse Rate 73 Respiratory Rate 7 L 17 Blood Pressure 89/52 L Pulse Oximetry 95 Intake & Output 09/16/17 09/17/17 09/17/17 18:59 06:59 18:59 Intake Total 120 / 120 Output Total 200 / 200 Balance -80 / -80 Weight 49.2 kg Intake: Oral 120 / 120 Output: Urine 200 / 200 Other: Date of Last Bowel Movement 09/14/17 Narrative: GENERAL: Uncomfortable from foot cramp. SKIN: Warm and dry. HEART: Regular rate and rhythm LUNGS: Clear to auscultation bilaterally ABDOMEN: +BS, soft, NT, ND. EXTREMITIES: No LE edema. LUE and LLE with contractures, hemiparesis. Left ankle bandage clean dry intact NEURO: Awake and alert. Results - Labs CBC & Chem 7: 09/06/17 10:52 09/06/17 10:52 - Procedures NONE Assessment and Plan - Plan 57-year-old male with PMH of HTN, HLD, h/o CVA w/ left-sided hemiparesis, COPD , CHF, PVD and chronic LE ulcer was brought to the ER by EMS for c/o dizziness and generalized weakness on 09/02. Per report, patient had been sent to a SNF following CVA for rehab but he subsequently left AMA. Since leaving he had been living on the streets. On arrival, his BP was noted to be 236/113, HR 103, troponin 0.22, and EKG w/ ST-T wave changes. Elevated troponin - Trop 0.22 on admission but compared to prior levels it is actually decreased - Abnormal EKG with inferolateral ST-T wave changes, though unchanged from prior comparisons - No complaints of chest pain - Cardiology consulted and recommend medical management HTN, chronic essential with presenting hypertensive urgency with blood pressure 236/113 - BPs now normal on Norvasc, lisinopril and metoprolol. CVA, chronic ischemic - W/ residual left-sided weakness - Recently at SNF for rehab, however apparently left AMA and has been living on the streets. - PT/ OT following, rehab vs. SNF. - Case management for placement, awaiting placement. Hopefully will hear something on Sunday. - Continue Gabapentin at 300 mg 3 times daily - Cont baclofen for contractures, Flexeril as needed for spasms. CHF, chronic systolic compensated - Echo 05/23 w/ EF 40-45% - Euvolemic on exam - Continue cardiac regimen Foot cramp On the left side. Chronic. - check electrolytes. - muscle relaxers as needed. - PT/ OT. DVT Prophylaxis: Heparin Discharge Planning: Awaiting placement
[2017-09-17 16:49] LABS: Carbon Dioxide 28.5 meq/L (21.0-32.0)
[2017-09-17 16:50] LABS: Calcium 9.7 mg/dL (8.5-10.1)
[2017-09-18] MEDS: amLODIPine 10 MG Tablet PO SCH (10:40)
[2017-09-18] MEDS: Metoprolol Tartrate 25 MG Tablet PO SCH ×2 (10:40→20:52)
[2017-09-18] MEDS: Senna/Docusate Sodium 8.6/50 MG Tablet PO SCH ×2 (10:40→20:53)
[2017-09-18] MEDS: Lisinopril 20 MG Tablet PO SCH (10:40)
[2017-09-18] MEDS: Gabapentin 300 MG Capsule PO SCH ×3 (10:41→18:01)
[2017-09-18] MEDS: Heparin - SQ 10,000 UNITS/ML Vial SQ SCH ×2 (10:41→20:51)
--- NOTE | 2017-09-18 11:58 | P.PNIM ---
Subjective Interval history: The patient stated that he had an incident where his urine spilled on him overnight and he was laying in wet sheets. He said that his pain was poorly controlled. No other acute concerns. Physical Exam Vital signs: Vital Signs 09/17/17 12:00 09/17/17 16:00 09/17/17 20:00 Temperature 97.6 F 97.9 F 97.9 F Pulse Rate 73 95 H 85 Respiratory Rate 17 17 22 Blood Pressure 102/56 L 131/68 106/55 L Pulse Oximetry 97 94 L 96 09/17/17 20:44 09/18/17 00:00 09/18/17 03:45 Temperature 97.3 F L Pulse Rate 73 71 Respiratory Rate 18 19 Blood Pressure 128/58 L Pulse Oximetry 95 09/18/17 04:00 09/18/17 08:00 09/18/17 10:00 Temperature 97.9 F Pulse Rate 72 77 80 Respiratory Rate 17 Blood Pressure 109/66 136/79 Pulse Oximetry 94 L Intake & Output 09/17/17 09/18/17 09/18/17 18:59 06:59 18:59 Intake Total 720 / 720 Output Total 450 / 450 500 / 500 Balance 270 / 270 -500 / -500 Weight 49.2 kg Intake: Oral 720 / 720 Output: Urine 450 / 450 500 / 500 Other: Date of Last Bowel Movement 09/14/17 Narrative: GENERAL: Uncomfortable from foot cramp. SKIN: Warm and dry. HEART: Regular rate and rhythm LUNGS: Clear to auscultation bilaterally ABDOMEN: +BS, soft, NT, ND. EXTREMITIES: No LE edema. LUE and LLE with contractures, hemiparesis. Left ankle bandage clean dry intact NEURO: Awake and alert. Results - Labs CBC & Chem 7: 09/06/17 10:52 09/17/17 15:55 Laboratory Results - last 24 hr 09/17/17 09/17/17 15:55 15:55 Sodium 139 Potassium 5.0 Chloride 103 Carbon Dioxide 28.5 Anion Gap 8 BUN 47 H Creatinine 1.59 H Estimated GFR 45 L Random Glucose 116 H Calcium 9.7 Magnesium 2.5 - Procedures NONE Assessment and Plan - Plan 57-year-old male with PMH of HTN, HLD, h/o CVA w/ left-sided hemiparesis, COPD , CHF, PVD and chronic LE ulcer was brought to the ER by EMS for c/o dizziness and generalized weakness on 09/02. Per report, patient had been sent to a SNF following CVA for rehab but he subsequently left AMA. Since leaving he had been living on the streets. On arrival, his BP was noted to be 236/113, HR 103, troponin 0.22, and EKG w/ ST-T wave changes. Elevated troponin - Trop 0.22 on admission but compared to prior levels it is actually decreased - Abnormal EKG with inferolateral ST-T wave changes, though unchanged from prior comparisons - No complaints of chest pain - Cardiology consulted and recommend medical management HTN, chronic essential with presenting hypertensive urgency with blood pressure 236/113 - BPs now normal on Norvasc, lisinopril and metoprolol. Acute renal failure Likely s/t dehydration. -hold lisinopril. -IVFs. -follow BMP. CVA, chronic ischemic - W/ residual left-sided weakness - Recently at SNF for rehab, however apparently left AMA and has been living on the streets. - PT/ OT following, rehab vs. SNF. - Case management for placement, awaiting placement. Hopefully will hear something on Sunday. - Continue Gabapentin at 300 mg 3 times daily - Cont baclofen for contractures, Flexeril as needed for spasms. CHF, chronic systolic compensated - Echo 05/23 w/ EF 40-45% - Euvolemic on exam - Continue cardiac regimen Foot cramp On the left side. Chronic. - muscle relaxers as needed. - PT/ OT. DVT Prophylaxis: Heparin Discharge Planning: Awaiting placement
[2017-09-18] MEDS ORDERED: Dextrose 5%/NaCl 0.9% Inj 1,000 ML IV.CONT SCH (12:00)
--- NOTE | 2017-09-18 18:06 | P.DIET ---
Nutritional Evaluation Type of nutrition evaluation: follow-up Nutrition screening: Weight Loss > 10 lbs Subjective Subjective Comments: Pt says he didnt eat well yesterday d/t he was in pain and needed to sleep. Nods his head yes to confirm he is drinking the Ensure and eating the Ensure Pudding. Objective - Diagnosis NSTEMI, Dizziness c/o CVA, L Heel Pressure Ulcer - Objective % IBW: 62 (GBV=016#) Body Weight Used for Calculations: IBW (75.5kg) Energy Needs - Lower Range (kCal/kg): 25 Energy Needs - Upper Range (kCal/kg): 30 Lower Limit kCal/kg (kCals): 1,888 Upper Limit kCal/kg (kCals): 2,265 Lower Limit Protein Factor (Grams per Kg): 1.1 Upper Limit Protein Factor (Grams per Kg): 1.3 Lower Protein Needs (Protein): 83 Upper Protein Needs (Protein): 98 Dietitian Reviewed in Medical Record: Current diet, Curent medications, Intake & Output, Labs, Medical history, Wound/DTI Diet Order: Heart Healthy Oral Diet Intake Amount: Good 75-90% Wound Care Note: 09/03: L heel pressure injury, no staging Objective Comments: PMH: Seizure, Stroke, HTN, Hyperlipidema, COPD, PVD, Chronic left heel wound, homeless LBM 09/16, +UOP 950ml Feeding - Current PO Supplement Current Supplement: Ensure Enlive Current Frequency of Supplement: Three times a day Current kCals Provided by Supplement: 350 Current Protein Provided by Supplement: 20 Supplement Comments: Plus Ensure Pudding TID(= 170 kcal and 4g protein per serving) Assessment Assessment: Pt continues to be at nutritional risk r/t recent wt loss, low BMI 15.6 and increased needs for wound healing. Pt w/Adequate po intake 50% or greater for most meals. Continue to [place] food preferences. Continue Enlive TID. Continue Ensure Pudding TID. Wt changes noted. Dietitian following. Recommendations: 1.[place] food preferences 2.Continue Enlive TID 3.Continue Ensure Pudding TID 4.Dietitian following Dietitian to Monitor: Lab values, Renal labs, Supplement acceptance, Intake & Output, Diet tolerance, Weight change, PO Intake, Wound/skin status, Medical course
[2017-09-19 09:03] LABS: Calcium 9.4 mg/dL (8.5-10.1); Carbon Dioxide 29.2 meq/L (21.0-32.0); Magnesium 2.2 mg/dL (1.5-2.5); Potassium 4.7 meq/L (3.5-5.1)
[2017-09-19] MEDS: amLODIPine 10 MG Tablet PO SCH (10:30)
[2017-09-19] MEDS: Senna/Docusate Sodium 8.6/50 MG Tablet PO SCH ×2 (10:31→20:57)
[2017-09-19] MEDS: Heparin - SQ 10,000 UNITS/ML Vial SQ SCH ×2 (10:31→20:58)
[2017-09-19] MEDS: Metoprolol Tartrate 25 MG Tablet PO SCH ×2 (10:32→20:57)
[2017-09-19] MEDS: Gabapentin 300 MG Capsule PO SCH ×3 (10:32→19:38)
--- NOTE | 2017-09-19 14:48 | P.PNIM ---
Subjective Interval history: The patient was about to eat lunch. He was wondering about placement. No acute complaints at this time. Discussed with nursing. Physical Exam Vital signs: Vital Signs 09/18/17 16:00 09/18/17 20:00 09/19/17 00:00 Temperature 97.6 F 98 F 97.7 F Pulse Rate 68 72 75 Respiratory Rate 17 18 18 Blood Pressure 104/59 L 123/58 L 138/62 Pulse Oximetry 96 99 97 09/19/17 04:00 09/19/17 07:57 09/19/17 12:00 Temperature 97.2 F L 97.9 F 98.3 F Pulse Rate 70 67 80 Respiratory Rate 18 18 18 Blood Pressure 129/62 129/59 L 151/67 H Pulse Oximetry 97 99 99 Intake & Output 09/18/17 09/19/17 09/19/17 18:59 06:59 18:59 Intake Total 960 / 960 1240 / 1240 Output Total 400 / 400 925 / 925 Balance 560 / 560 315 / 315 Weight 43.3 kg Intake: IV 1000 / 1000 D5W/Normal Saline Inj 1,000 ML 1000 / 1000 @ 75 mls/hr IV.CONT .[id number] KALEB Rx#:[id number] Oral 960 / 960 240 / 240 Output: Urine 400 / 400 925 / 925 Other: Date of Last Bowel Movement 09/16/17 09/16/17 # Bowel Movements 1 Narrative: GENERAL: Uncomfortable from foot cramp. SKIN: Warm and dry. HEART: Regular rate and rhythm LUNGS: Clear to auscultation bilaterally ABDOMEN: +BS, soft, NT, ND. EXTREMITIES: No LE edema. LUE and LLE with contractures, hemiparesis. Left ankle bandage clean dry intact NEURO: Awake and alert. Results - Labs CBC & Chem 7: 09/06/17 10:52 09/19/17 08:08 Laboratory Results - last 24 hr 09/19/17 08:08 Sodium 141 Potassium 4.7 Chloride 106 Carbon Dioxide 29.2 Anion Gap 6 BUN 42 H Creatinine 1.26 Estimated GFR 59 L Random Glucose 82 Calcium 9.4 Magnesium 2.2 - Procedures NONE Assessment and Plan - Plan 57-year-old male with PMH of HTN, HLD, h/o CVA w/ left-sided hemiparesis, COPD , CHF, PVD and chronic LE ulcer was brought to the ER by EMS for c/o dizziness and generalized weakness on 09/02. Per report, patient had been sent to a SNF following CVA for rehab but he subsequently left AMA. Since leaving he had been living on the streets. On arrival, his BP was noted to be 236/113, HR 103, troponin 0.22, and EKG w/ ST-T wave changes. Elevated troponin - Trop 0.22 on admission but compared to prior levels it is actually decreased - Abnormal EKG with inferolateral ST-T wave changes, though unchanged from prior comparisons - No complaints of chest pain - Cardiology consulted and recommend medical management HTN Presented with hypertensive urgency with blood pressure 236/113. -continue Norvasc and metoprolol. -hold lisinopril for now. Acute renal failure Likely s/t dehydration. Improved with fluids. -hold lisinopril for now. -continue IVFs. -follow BMP as needed. CVA, chronic ischemic - W/ residual left-sided weakness - Recently at SNF for rehab, however apparently left AMA and has been living on the streets. - PT/ OT following, rehab vs. SNF. - Case management for placement, awaiting placement. Hopefully will hear something on Sunday. - Continue Gabapentin at 300 mg 3 times daily - Cont baclofen for contractures, Flexeril as needed for spasms. CHF, chronic systolic compensated - Echo 05/23 w/ EF 40-45% - Euvolemic on exam - Continue cardiac regimen Foot cramp On the left side. Chronic. - muscle relaxers as needed. - PT/ OT. DVT Prophylaxis: Heparin Discharge Planning: Awaiting placement
[2017-09-19] MEDS: Dextrose 5%/NaCl 0.45% Inj 1,000 ML IV.CONT SCH (16:53)
[2017-09-20] MEDS: Dextrose 5%/NaCl 0.45% Inj 1,000 ML IV.CONT SCH (00:53)
[2017-09-20] MEDS: Senna/Docusate Sodium 8.6/50 MG Tablet PO SCH ×2 (09:02→20:11)
[2017-09-20] MEDS: Metoprolol Tartrate 25 MG Tablet PO SCH ×2 (09:02→20:11)
[2017-09-20] MEDS: Gabapentin 300 MG Capsule PO SCH ×3 (09:02→18:14)
[2017-09-20] MEDS: Heparin - SQ 10,000 UNITS/ML Vial SQ SCH ×2 (09:02→20:11)
[2017-09-20] MEDS: amLODIPine 10 MG Tablet PO SCH (09:03)
--- NOTE | 2017-09-20 11:15 | P.PNIM ---
Subjective Interval history: The patient was working with physical therapy. He was complaining of pain in his leg. He was feeling too weak to move to the wheelchair. No other acute concerns. Physical Exam Vital signs: Vital Signs 09/19/17 12:00 09/19/17 16:00 09/19/17 20:00 Temperature 98.3 F 98.4 F 97.6 F Pulse Rate 80 70 84 Respiratory Rate 18 18 18 Blood Pressure 151/67 H 139/61 158/68 H Pulse Oximetry 99 96 97 09/20/17 00:00 09/20/17 04:00 09/20/17 08:00 Temperature 97 F L 97.6 F 98.2 F Pulse Rate 76 76 79 Respiratory Rate 18 18 14 Blood Pressure 132/61 127/61 166/72 H Pulse Oximetry 97 97 97 Intake & Output 09/19/17 09/20/17 09/20/17 18:59 06:59 18:59 Intake Total 960 / 960 1480 / 1480 Output Total 700 / 700 400 / 400 Balance 260 / 260 1080 / 1080 Weight 43.8 kg Intake: IV 1000 / 1000 D5W/1/2 NS Inj 1,000 ML @ 125 1000 / 1000 mls/hr IV.CONT .Q8H [facility]AL[facility] Rx#: [id number] Oral 960 / 960 480 / 480 Output: Urine 700 / 700 400 / 400 Other: # Bowel Movements 2 Narrative: GENERAL: Uncomfortable from foot cramp. SKIN: Warm and dry. HEART: Regular rate and rhythm LUNGS: Clear to auscultation bilaterally ABDOMEN: +BS, soft, NT, ND. EXTREMITIES: No LE edema. LUE and LLE with contractures, hemiparesis. Left ankle bandage clean dry intact NEURO: Awake and alert. Results - Labs CBC & Chem 7: 09/06/17 10:52 09/19/17 08:08 - Procedures NONE Assessment and Plan - Plan 57-year-old male with PMH of HTN, HLD, h/o CVA w/ left-sided hemiparesis, COPD , CHF, PVD and chronic LE ulcer was brought to the ER by EMS for c/o dizziness and generalized weakness on 09/02. Per report, patient had been sent to a SNF following CVA for rehab but he subsequently left AMA. Since leaving he had been living on the streets. On arrival, his BP was noted to be 236/113, HR 103, troponin 0.22, and EKG w/ ST-T wave changes. Elevated troponin - Trop 0.22 on admission but compared to prior levels it is actually decreased - Abnormal EKG with inferolateral ST-T wave changes, though unchanged from prior comparisons - No complaints of chest pain - Cardiology consulted and recommend medical management HTN Presented with hypertensive urgency with blood pressure 236/113. -continue Norvasc and metoprolol. Relatively well controlled. -hold lisinopril for now. Would resume at a lower dose in the next few days. Acute renal failure Likely s/t dehydration. Improved with fluids. -hold lisinopril for now. -continue IVFs. -follow BMP as needed. CVA, chronic ischemic - W/ residual left-sided weakness - Recently at SNF for rehab, however apparently left AMA and has been living on the streets. - PT/ OT following, rehab vs. SNF. - Case management for placement, awaiting placement. Hopefully will hear something on Sunday. - Continue Gabapentin at 300 mg 3 times daily - Cont baclofen for contractures, Flexeril as needed for spasms. CHF, chronic systolic compensated - Echo 05/23 w/ EF 40-45% - Euvolemic on exam - Continue cardiac regimen Foot cramp On the left side. Chronic. - muscle relaxers as needed. - PT/ OT. DVT Prophylaxis: Heparin Discharge Planning: Awaiting placement
[2017-09-21 08:02] VITALS: RESP 18
[2017-09-21] MEDS: amLODIPine 10 MG Tablet PO SCH (09:10)
[2017-09-21] MEDS: Gabapentin 300 MG Capsule PO SCH ×2 (09:10→12:45)
[2017-09-21] MEDS: Metoprolol Tartrate 25 MG Tablet PO SCH (09:11)
[2017-09-21] MEDS: Senna/Docusate Sodium 8.6/50 MG Tablet PO SCH (09:11)
[2017-09-21] MEDS: Heparin - SQ 10,000 UNITS/ML Vial SQ SCH (09:12)
--- NOTE | 2017-09-21 12:05 | P.PNIM ---
Subjective Interval history: The patient said that he felt like he had more energy today. He said he would be willing to work with physical therapy. He requested different flavors of Ensure shakes. Physical Exam Vital signs: Vital Signs 09/20/17 16:00 09/20/17 20:00 09/21/17 00:00 Temperature 97.9 F 98.9 F 97.6 F Pulse Rate 83 93 H 87 Respiratory Rate 14 17 17 Blood Pressure 167/74 H 187/81 H 148/79 H Pulse Oximetry 98 94 L 95 09/21/17 04:00 09/21/17 08:00 09/21/17 09:00 Temperature 98.2 F 97.6 F Pulse Rate 76 92 H 76 Respiratory Rate 17 18 Blood Pressure 129/78 139/75 Pulse Oximetry 95 97 09/21/17 11:56 Temperature 97.6 F Pulse Rate 90 Respiratory Rate 18 Blood Pressure 186/80 H Pulse Oximetry 97 Intake & Output 09/20/17 09/21/17 09/21/17 18:59 06:59 18:59 Intake Total 1800 / 1800 480 / 480 Output Total 1200 / 1200 800 / 800 Balance 600 / 600 -320 / -320 Weight 43.8 kg Intake: IV 1000 / 1000 D5W/1/2 NS Inj 1,000 ML @ 125 1000 / 1000 mls/hr IV.CONT .Q8H [facility]AL[facility] Rx#: [id number] Oral 800 / 800 480 / 480 Output: Urine 1200 / 1200 800 / 800 Other: # Bowel Movements 1 Narrative: GENERAL: Uncomfortable from foot cramp. SKIN: Warm and dry. HEART: Regular rate and rhythm LUNGS: Clear to auscultation bilaterally ABDOMEN: +BS, soft, NT, ND. EXTREMITIES: No LE edema. LUE and LLE with contractures, hemiparesis. Left ankle bandage clean dry intact NEURO: Awake and alert. Results - Labs CBC & Chem 7: 09/06/17 10:52 09/19/17 08:08 - Procedures NONE Assessment and Plan - Plan 57-year-old male with PMH of HTN, HLD, h/o CVA w/ left-sided hemiparesis, COPD , CHF, PVD and chronic LE ulcer was brought to the ER by EMS for c/o dizziness and generalized weakness on 09/02. Per report, patient had been sent to a SNF following CVA for rehab but he subsequently left AMA. Since leaving he had been living on the streets. On arrival, his BP was noted to be 236/113, HR 103, troponin 0.22, and EKG w/ ST-T wave changes. Elevated troponin - Trop 0.22 on admission but compared to prior levels it is actually decreased - Abnormal EKG with inferolateral ST-T wave changes, though unchanged from prior comparisons - No complaints of chest pain - Cardiology consulted and recommend medical management HTN Presented with hypertensive urgency with blood pressure 236/113. Poorly controlled at this time. -continue Norvasc and metoprolol. Add lisinopril 10 mg daily. Acute renal failure Likely s/t dehydration. Improved with fluids. -follow BMP as needed. -Lisinopril added. CVA, chronic ischemic - W/ residual left-sided weakness - Recently at SNF for rehab, however apparently left AMA and has been living on the streets. - PT/ OT following, rehab vs. SNF. - Case management for placement, awaiting placement. Hopefully will hear something on Sunday. - Continue Gabapentin at 300 mg 3 times daily - Cont baclofen for contractures, Flexeril as needed for spasms. CHF, chronic systolic compensated - Echo 05/23 w/ EF 40-45% - Euvolemic on exam - Continue cardiac regimen Foot cramp On the left side. Chronic. - muscle relaxers as needed. - PT/ OT. DVT Prophylaxis: Heparin Discharge Planning: Awaiting placement
[2017-09-21] MEDS ORDERED: Lisinopril 10 MG Tablet PO SCH (13:00)
[2017-09-21 15:58] VITALS: BP 109/53; PULSE 71; TEMP 97.2; O2SAT 96
--- NOTE | 2017-09-21 16:57 | P.DS ---
Date of admission: 09/02/17 03:08 Primary care physician: Moreno Clark MD Anticipated date of discharge: 09/21/17 Brief History from admission: This is a 57-year-old male with PMH of HTN, Hyperlipidemia, H/o CVA w/ Left- Sided Hemiparesis, COPD, CHF (Echo 05/23 w/ EF 40-45%), PVD and Chronic LE Ulcer who was brought to the ER by EMS for c/o dizziness and generalized weakness. Per report, pt had been sent to SNF following CVA for Rehab, pt apparently wasn' t happy with the Rehab and LEFT AMA, however has been living on the streets since he had nowhere to go. Denies fever, chills, nausea, vomiting or diarrhea. Per EMS, pt noted to have abnormal EKG, however pt w/ no complaints of chest pain. On arrival, BP 236/113, HR 103, O2 sat 98% on RA, Afebrile. CBC unremarkable. INR 1.1. Troponin 0.22, EKG w/ ST-T wave changes. S/p Morphine/NTG in ER and currently on Heparin gtt DS: Diagnosis - Discharge Diagnosis (1) NSTEMI (non-ST elevated myocardial infarction) Status: Resolved (2) HTN (hypertension) Status: Chronic (3) Generalized weakness Status: Acute DS: Medications - Discharge Medications Prescriptions: amlodipine [Norvasc] 10 mg PO DAILY #30 tab aspirin 81 mg PO DAILY #30 tab gabapentin 200 mg PO TID #180 cap hydrocodone-acetaminophen 1 tab PO Q4H PRN #28 tab PRN Reason: Acute Pain pravastatin 40 mg PO DAILY #30 tab DS: Summary Hospital Course: Elevated troponin 57-year-old male with PMH of HTN, HLD, h/o CVA w/ left-sided hemiparesis, COPD, CHF, PVD and chronic LE ulcer who was brought to the ER by EMS for c/o dizziness and generalized weakness on 09/02. Per report, patient had been sent to a SNF following CVA for rehab but he subsequently left AMA. Since leaving he had been living on the streets. On arrival, his BP was noted to be 236/113, HR 103, troponin 0.22, and EKG w/ ST-T wave changes. Trop 0.22 on admission, but compared to prior levels it is actually decreased. Abnormal EKG with inferolateral ST-T wave changes, though unchanged from prior comparisons. No complaints of chest pain. Cardiology was consulted and recommended medical management. HTN Presented with hypertensive urgency with blood pressure 236/113. We continued Norvasc and metoprolol. Lisinopril was decreased s/t renal insufficiency. He will need to follow up with his PCP. Acute renal failure Improved with fluids. Lisinopril dose was increased. CVA The pt has residual left-sided weakness. Recently at SNF for rehab, however, apparently left AMA and has been living on the streets. PT/ OT worked with the pt. Case management assisted with placement. He received Flexeril as needed for muscle spasms and contractures. - Time Spent with Patient Total time spent providing and/or coordinating discharge services: Greater than 30 minutes - Quality: VTE Deep Vein Thrombosis/Pulmonary Embolism Present on Admission: No Exam Vital signs: Vital Signs 09/20/17 20:00 09/21/17 00:00 09/21/17 04:00 Temperature 98.9 F 97.6 F 98.2 F Pulse Rate 93 H 87 76 Respiratory Rate 17 17 17 Blood Pressure 187/81 H 148/79 H 129/78 Pulse Oximetry 94 L 95 95 09/21/17 08:00 09/21/17 09:00 09/21/17 11:56 Temperature 97.6 F 97.6 F Pulse Rate 92 H 76 90 Respiratory Rate 18 18 Blood Pressure 139/75 186/80 H Pulse Oximetry 97 97 09/21/17 13:00 09/21/17 15:57 Temperature 97.2 F L Pulse Rate 80 71 Respiratory Rate 18 Blood Pressure 109/53 L Pulse Oximetry 96 Intake & Output 09/20/17 09/21/17 09/21/17 18:59 06:59 18:59 Intake Total 1800 / 1800 480 / 480 Output Total 1200 / 1200 800 / 800 Balance 600 / 600 -320 / -320 Weight 43.8 kg Intake: IV 1000 / 1000 D5W/1/2 NS Inj 1,000 ML @ 125 1000 / 1000 mls/hr IV.CONT .Q8H KALEB Rx#: [id number] Oral 800 / 800 480 / 480 Output: Urine 1200 / 1200 800 / 800 Other: # Bowel Movements 1 Narrative: GENERAL: Uncomfortable from foot cramp. SKIN: Warm and dry. HEART: Regular rate and rhythm LUNGS: Clear to auscultation bilaterally ABDOMEN: +BS, soft, NT, ND. EXTREMITIES: No LE edema. LUE and LLE with contractures, hemiparesis. Left ankle bandage clean dry intact NEURO: Awake and alert. Results Procedures completed during hospitalization: NONE - Impressions ITS Impressions Head CT 09/02/17 00:05 CONCLUSION: 1. Remote right frontoparietal infarct. 2. Moderate cerebral atrophy out of proportion to age. 3. No acute intracranial abnormality. . Discharge Plan - Discharge Disposition Patient Disposition: 03 Discharge to SNF - Discharge Condition Condition: Stable - Discharge Order Discharge Orders: Discharge Order (Routine); Ordered 09/10/17 Ordered By: Kylie Boyd - Discharge Details Anticipated Discharge Date: 09/21/17 - Physicians Team Primary Care Provider: Moreno Clark Attending Provider: Morales Vázquez Other Providers: Gio Nuno MD ; Rehab,[facility] ; Re[facility],[place] ; Soraya [place]ina ; [facility]
== END 2017-09-21 17:13 ==
LOC: NEPC 23:52 → NEDA 09-02 03:08 → HCIS 09-02 04:23 → N07 09-06 17:08
PROVIDERS: ADMIT Hospitalist; ATTEND Hospitalist